=== PATIENT | male | born 1965 | race Caucasian/White ===

== ENCOUNTER 2019-03-03 14:34 | Outpatient (REF) | payer MEDICARE, SELFPAY ==
[2019-03-03 18:56] LABS: HGB 14.9 g/dL (13.5-17.5); Mean Corp. HGB Concentration 33.9 g/dL (32.0-36.0); Mean Corpuscular Hemoglobin 32.5 pg (27.0-33.0); Mean Corpuscular Volume 96.1 fL (80-95); Mean Platelet Volume 10.9 fL (8.0-11.0); Platelet Count 245 x1000/uL (130-400); RBC 4.58 m/cumm (4.50-6.00); RBC Distribution Width 12.3 % (11.8-14.1); White Blood Cell Count 10.73 k/cumm (4.4-10.8)
[2019-03-03 19:05] LABS: ALT 55 U/L (12-78); AST 36 U/L (15-37); Alkaline Phosphatase 82 U/L (46-116); Anion Gap 9.3 mmol/L (3-11); BUN 16 mg/dL (7-18); Bilirubin, Total 0.5 mg/dL (0.2-1.0); CO2 26.7 mmol/L (21.0-32.0); CREATININE 1.24 mg/dL (0.70-1.30); Calcium 8.5 mg/dL (8.5-10.1); Chloride 103 mmol/L (98-107); Glucose 108 mg/dL (70-100); Sodium 139 mmol/L (136-145); Total Protein 6.7 g/dL (6.4-8.2)
== END 2019-03-03 14:54 ==
LOC: NCHCN 14:34
PROVIDERS: PCP Internal Medicine; Visit Provider Internal Medicine
DX: K57.92 Diverticulitis of intestine, part unspecified, without perforation or abscess without bleeding (principal)
CPT/HCPCS: 80053; 85027

== ENCOUNTER 2019-07-24 11:55 | Outpatient (REF) | payer MEDICARE, SELFPAY ==
[2019-07-24 19:20] LABS: PROTEIN 13.3 mg/dL
[2019-07-24 19:23] LABS: COMMENT (LAB VIEW ONLY) 183.73 mg/dL; Microalb ug/mg Crea 5.7 ug/mg Cr
[2019-07-24 19:31] LABS: COMMENT (LAB VIEW ONLY) 181.14 mg/dL; Prot/Crea Ur Ratio 0.07
== END 2019-07-24 12:15 ==
LOC: NCHCN 11:55
PROVIDERS: PCP Internal Medicine; Visit Provider Internal Medicine
DX: I10 Essential (primary) hypertension (principal); G89.29 Other chronic pain; E66.3 Overweight; Z87.891 Personal history of nicotine dependence
CPT/HCPCS: 82043; 82565; 82570; 84156

== ENCOUNTER 2019-10-30 14:14 | Outpatient (REF) | payer MEDICARE, SELFPAY ==
[2019-10-30 19:41] LABS: ALT 24 U/L (16-63); AST 14 U/L (15-37); Albumin 4.1 g/dL (3.4-5.0); Alkaline Phosphatase 83 U/L (46-116); Anion Gap 9.9 mmol/L (3-11); BUN 22 mg/dL (7-18); Bilirubin, Total 0.4 mg/dL (0.2-1.0); CO2 26.1 mmol/L (21.0-32.0); CREATININE 1.17 mg/dL (0.70-1.30); Calcium 7.4 mg/dL (8.5-10.1); Chloride 102 mmol/L (98-107); Glucose 123 mg/dL (74-106); Potassium 4.9 mmol/L (3.5-5.1); Sodium 138 mmol/L (136-145); Total Protein 6.7 g/dL (6.4-8.2)
== END 2019-10-30 14:34 ==
LOC: NCHCN 14:14
PROVIDERS: PCP Internal Medicine; Visit Provider Internal Medicine
DX: N18.3 Chronic kidney disease, stage 3 (moderate) (principal); R94.5 Abnormal results of liver function studies
CPT/HCPCS: 80053

== ENCOUNTER 2019-12-16 08:26 | Outpatient (REF) | payer MEDICARE, SELFPAY ==
[2019-12-16 19:59] LABS: Albumin 4.2 g/dL (3.4-5.0); Anion Gap 9.2 mmol/L (3-11); BUN 15 mg/dL (7-18); CO2 26.8 mmol/L (21.0-32.0); CREATININE 1.16 mg/dL (0.70-1.30); Calcium 8.9 mg/dL (8.5-10.1); Chloride 103 mmol/L (98-107); Glucose 111 mg/dL (74-106); PHOSPHORUS 4.9 mg/dL (2.6-4.7); Potassium 4.9 mmol/L (3.5-5.1); Sodium 139 mmol/L (136-145)
== END 2019-12-16 08:46 ==
LOC: NCHCN 08:26
PROVIDERS: PCP Internal Medicine; Visit Provider Internal Medicine
DX: R73.03 Prediabetes (principal); N18.3 Chronic kidney disease, stage 3 (moderate)
CPT/HCPCS: 80069; 83036

== ENCOUNTER 2020-09-03 19:23 | Outpatient (REF) | payer MEDICARE, SELFPAY ==
[2020-09-03 19:29] LABS: Bacteria Negative HPF (Negative); C & S Indicated? No; Casts Negative LPF (Negative); Crystals Negative HPF (Negative); Epithelial Cells Rare HPF (Negative); Mucus Negative (Negative); RBC 0-2 HPF (0-2); WBC 0-2 HPF (0-5)
== END 2020-09-03 19:43 ==
LOC: NCHCN 19:23
PROVIDERS: PCP Internal Medicine; Visit Provider Internal Medicine
DX: N40.0 Benign prostatic hyperplasia without lower urinary tract symptoms (principal); I10 Essential (primary) hypertension
CPT/HCPCS: 84153; 81015

== ENCOUNTER 2020-10-06 10:28 | Emergency (ER) | payer MEDICARE, SELFPAY ==
[2020-10-06] VITALS (11 sets, daily range): BP systolic 101–157; BP diastolic 78–109; PULSE 67–88; RESP 16–18; TEMP 36.5–36.6; O2SAT 94–100
--- NOTE | 2020-10-06 10:30 | DI.CT_ITS ---
EXAM: CT ABDOMEN PELVIS W CLINICAL HISTORY: lower abd pain, vomiting, diarrhea. TECHNIQUE: Imaging Protocol: Axial computed tomography images with coronal and sagittal reformatted images were created and reviewed CONTRAST MATERIAL: Intravenous: Omnipaque 100cc Oral: None COMPARISON: No exams were available for comparison FINDINGS: VISUALIZED LUNG BASES: No nodules nor pleural effusions evident. ABDOMEN: There is no ascites. LIVER: There are no obvious focal hepatic lesions evident . GALLBLADDER/BILIARY: The gallbladder surgically absent CBD is not dilated. PANCREAS: No evidence of pancreatic mass nor dilatation of the pancreatic duct. SPLEEN: Spleen is not enlarged. No obvious intrasplenic lesions. Calcified granulomas are noted in the spleen. A small splenule medial to the spleen is also noted. The splenic and portal veins are p atent. ADRENALS: There are no significant adrenal masses. KIDNEYS:No cysts evident. No solid renal masses. No calculi nor hydronephrosis.. ABDOMINAL AORTA: The inferior abdominal aorta is mildly atherosclerotic. There is no true aneurysm. However, the atherosclerotic disease does extend into the iliac arteries. LYMPH NODES:There is no retroperitineal nor paraaortic adenopathy. ABDOMINAL WALL/GI: There is an anterior abdominal wall umbilical hernia which contains fat and no bow el loops. No bowel obstruction. PELVIS: GI: No evidence of appendicitis.There are diverticuli in the upper sigmoid and descending-left:. The re is some mild streaking at the junction of the descending colon and sigmoid at the iliac crest leve l. This may indicate subtle diverticulitis. LYMPH NODES: There is no intrapelvic nor inguinal adenopathy. REPRODUCTIVE: Prostate gland is significantly enlarged and lobulated and extends into the urinary morris dder URINARY BLADDER: In addition the enlarged prostate gland there is asymmetric thickening of the right side of the urinary bladder wall, this exhibiting a thickness of 7 millimeters. Also some thickening anterior posteriorly. Relative sparing of the left side of the urinary bladder wall. OSSEOUS: Advanced degenerative changes in the right hip. Partial ankylosis of the sacroiliac joints. No lytic osseous lesions evident. IMPRESSION: 1. The main finding here is a grossly enlarged prostate gland which is also lobulated and the there i s abnormal thickening of the right side of the urinary bladder wall. Urology consultation and cystos copy recommended to rule out neoplasm here. There is no hydronephrosis nor hydroureter. 2. There are multiple diverticuli in the descending-left colon with mild streaking around the colon a t the left iliac crest level possibly indicating subtle diverticulitis. There is no perforation or a bscess. 3. Appendix appears unremarkable. 4. Somewhat atherosclerotic distal abdominal aorta and iliac arteries without aneurysms. RADIATION DOSE DELIVERED: 987.76mGy.cm Total DLP DATA REPOSITORY: All CT scans at this facility are submitted to the National Radiology Data Registry (NRDR) Dose Index Registry (DIR) with the [employer] ([employer]). RADIATION OPTIMIZATION: All CT scans at this facility use at least one of these dose optimization te chniques: automated exposure control; mA and/or kV adjustment per patient size (includes targeted exa ms where dose is matched to clinical indication); or iterative reconstruction.
[2020-10-06] MEDS: Normal Saline 1,000 ML 1000 ML IV (10:35)
--- NOTE | 2020-10-06 10:41 | ED.GENADUL_ITS ---
Discharge Plan Disposition Patient Disposition: HOME Condition: Improving Discharge Details Clinical Impression: Acute diverticulitis, Enlarged prostate, Bladder wall thickening Primary Care Provider: Yoni Ramírez ED Provider: Katrin Bowser Home Meds and New Rx's Prescriptions: New amoxicillin-pot clavulanate [Augmentin] 875-125 mg tablet 1 tab PO BID 10 Days Qty: 20 RF: 0 Continued clonazepam 1 mg Tablet 1 mg PO BID PRNRF: 0 atenolol 25 mg Tablet 25 mg PO DAILY RF: 0 amlodipine 5 mg Tablet 5 mg PO DAILY RF: 0 aspirin 81 mg Tablet,Delayed Release (Dr/Ec) 81 mg PO DAILY RF: 0 acetaminophen [Acetaminophen Extra Strength] 500 mg Tablet 1,000 mg PO TID PRNRF: 0 hydromorphone [Dilaudid] 2 mg Tablet 2 - 4 mg PO DAILY PRNRF: 0 citalopram 20 mg Tablet 20 mg PO DAILY RF: 0 tamsulosin [Flomax] 0.4 mg Capsule 0.8 mg PO QHS RF: 0 prochlorperazine 25 mg Suppository 25 mg MT Q12H PRNRF: 0 pantoprazole 40 mg Tablet,Delayed Release (Dr/Ec) 40 mg PO DAILY RF: 0 ondansetron 4 mg Tablet,Disintegrating 4 mg PO Q8H PRNRF: 0 finasteride 5 mg Tablet 5 mg PO DAILY RF: 0 Narcan 4 mg/actuation [place],Non-Aerosol 4 mg INTRANASAL Q2-3M PRNRF: 0 Citracal-D3 Maximum Plus 325 mg-12.5 mcg -2.75 mg Tablet 2 tab PO DAILY RF: 0 Discharge Instructions Instructions: Diverticulitis (ED), Diverticulitis Diet (ED) Additional Instructions: Take your Dilaudid that you have at home as needed and directed for pain. Take your Compazine that you have at home as needed and directed for nausea and vomiting. Take the antibiotics until finished. Call your urologist today or tomorrow to schedule a follow-up appointment for reevaluation of your enlarged prostate and thickening of your bladder wall which was noted on CAT scan today. Follow-up with your primary care doctor in 1 week. Return to the emergency department with any worsening or new concerning symptoms. Discharge Data Discharge Physician: Katrin Bowser Medical Decision Making 1030 -- 55-year-old male with a previous history of diverticulitis presents with vomiting, diarrhea and abdominal pain for the past 10 days consistent with previous episodes of diverticulitis. Patient appears uncomfortable. Blood pressure mildly hypertensive, remainder vitals within normal limits. His abdomen is soft but diffusely tender, worse in the left lower quadrant. Differential diagnosis includes acute diverticulitis, colitis, gastroenteritis, UTI, pyelonephritis, etc. Will place an IV, bolus of fluids, screening labs, CT abdomen and pelvis and give a dose of morphine and Compazine and fluids and reassess. 1215 --labs and imaging reviewed. White blood cell count 12. Lipase normal. CT notes subtle diverticulitis. Also notes grossly enlarged prostate which is also lobulated raising concern for neoplasm recommend a urology consultation and cystoscopy. Patient states he is followed by urology at [place] for his BPH. Patient reassessed and his states his pain is returning but he would prefer to go home if possible. As he is hemodynamically stable without evidence of abscess or fever, will treat with p.o. antibiotics at this time. He is not narcotic na?ve and takes 4 mg of morphine twice daily for his chronic hip pain. Will give a dose of Dilaudid 1 mg IV and p.o. Augmentin. Discussed with Linda Cassidy from urology and she advised to follow-up with patient's urology at [facility] as this may be his baseline.. Will have patient follow-up with his urologist at [facility] for further evaluation. Patient given CT results for his follow-up. 1300 -- Patient feels much better and feels good to go home. CT images sent electronically to [facility]. Advised to follow up with the primary care doctor for re-evaluation. Usual and customary return precautions given prior to discharge. Medical Records Medical records reviewed: Yes I reviewed the patient's medical records. Imaging Data Radiologic Study: Radiologist's impression: CT ABDOMEN PELVIS W CLINICAL HISTORY: lower abd pain, vomiting, diarrhea. TECHNIQUE: Imaging Protocol: Axial computed tomography images with coronal and sagittal reformatted images were created and reviewed CONTRAST MATERIAL: Intravenous: Omnipaque 100cc Oral: None COMPARISON: No exams were available for comparison FINDINGS: VISUALIZED LUNG BASES: No nodules nor pleural effusions evident. ABDOMEN: There is no ascites. LIVER: There are no obvious focal hepatic lesions evident . GALLBLADDER/BILIARY: The gallbladder surgically absent CBD is not dilated. PANCREAS: No evidence of pancreatic mass nor dilatation of the pancreatic duct. SPLEEN: Spleen is not enlarged. No obvious intrasplenic lesions. Calcified granulomas are noted in the spleen. A small splenule medial to the spleen is also noted. The splenic and portal veins are patent. ADRENALS: There are no significant adrenal masses. KIDNEYS:No cysts evident. No solid renal masses. No calculi nor hydronephrosis.. ABDOMINAL AORTA: The inferior abdominal aorta is mildly atherosclerotic. There is no true aneurysm. However, the atherosclerotic disease does extend into the iliac arteries. LYMPH NODES:There is no retroperitineal nor paraaortic adenopathy. ABDOMINAL WALL/GI: There is an anterior abdominal wall umbilical hernia which contains fat and no bowel loops. No bowel obstruction. PELVIS: GI: No evidence of appendicitis.There are diverticuli in the upper sigmoid and descending-left:. There is some mild streaking at the junction of the descending colon and sigmoid at the iliac crest level. This may indicate subtle diverticulitis. LYMPH NODES: There is no intrapelvic nor inguinal adenopathy. REPRODUCTIVE: Prostate gland is significantly enlarged and lobulated and extends into the urinary bladder URINARY BLADDER: In addition the enlarged prostate gland there is asymmetric thickening of the right side of the urinary bladder wall, this exhibiting a thickness of 7 millimeters. Also some thickening anterior posteriorly. Relative sparing of the left side of the urinary bladder wall. OSSEOUS: Advanced degenerative changes in the right hip. Partial ankylosis of the sacroiliac joints. No lytic osseous lesions evident. IMPRESSION: 1. The main finding here is a grossly enlarged prostate gland which is also lobulated and the there is abnormal thickening of the right side of the urinary bladder wall. Urology consultation and cystoscopy recommended to rule out neoplasm here. There is no hydronephrosis nor hydroureter. 2. There are multiple diverticuli in the descending-left colon with mild streaking around the colon at the left iliac crest level possibly indicating subtle diverticulitis. There is no perforation or abscess. 3. Appendix appears unremarkable. 4. Somewhat atherosclerotic distal abdominal aorta and iliac arteries without aneurysms. Lab Data Lab results reviewed: Yes I reviewed the patient's lab results. Labs: Laboratory Tests Range/Units 10/06/20 10/06/20 10:35 10:35 WBC (4.4-10.8) 10^3/uL 12.50 H RBC (4.36-5.78) 10^6/uL 4.88 Hgb (13.5-17.5) g/dL 16.6 Hct (40.0-50.0) % 47.0 MCV (80-95) fL 96.3 H MCH (27.0-33.0) pg 34.0 H MCHC (32.0-36.0) % 35.3 RDW (11.8-14.1) % 11.8 Plt Count (130-400) 10^3/uL 382 MPV (8.0-11.0) fL 9.5 Immature Gran % 0.2 Neutrophils % 65.5 Lymphocytes % 23.5 Monocytes % 10.0 Eosinophils % 0.6 Basophils % 0.2 Nucleated RBC % % 0 Absolute Neutrophils (1.2-6.7) 10^3/uL 8.19 H Absolute Lymphocytes (1.2-3.4) 10^3/uL 2.94 Absolute Monocytes (0.1-0.8) 10^3/uL 1.25 H Absolute Eosinophils (0.0-0.7) 10^3/uL 0.08 Absolute Basophils (0.0-0.2) 10^3/uL 0.03 Sodium (136-145) mmol/L 133 L Potassium (3.5-5.1) mmol/L 3.8 Chloride (98-107) mmol/L 93 L Carbon Dioxide (21.0-32.0) mmol/L 29.6 Anion Gap (3-11) mmol/L 10.4 BUN (7-18) mg/dL 42 H Creatinine (0.70-1.30) mg/dL 1.6 H Estimated GFR/1.73 m2 (mL/min/1.73m2) 44.78 Glucose (74-106) mg/dL 145 H Calcium (8.5-10.1) mg/dL 8.9 Total Bilirubin (0.2-1.0) mg/dL 1.5 H AST (15-37) U/L 20 ALT (16-63) U/L 27 Alkaline Phosphatase (46-116) U/L 93 Total Protein (6.4-8.2) g/dL 8.7 H Albumin (3.4-5.0) g/dL 4.9 Lipase (73-393) U/L 225 HPI General Mode of arrival: ambulatory . Date/Time Provider Initiated Documentation: 10/06/20 10:29 . Limitations to Documentation: no limitations . Information obtained by: patient . HPI Narrative: Patient is a 55-year-old male who presents to the ED with complaint of vomiting, diarrhea and abdominal pain for the past 10 days. Patient states he has been vomiting multiple times daily which consist mainly bile. He states he has had loose brown stools multiple times daily. He states his abdominal pain is worse in the lower quadrants, sharp and intermittent consistent with previous episodes of diverticulitis. Patient has not taken any medication for pain today. Patient denies any recent travel or known sick contacts. He denies fever or change in urinary symptoms. Related Data Home Medications Medication Instructions Recorded Confirmed Citracal-D3 Maximum Plus 2 tab PO DAILY 10/06/20 10/06/20 Narcan 4 mg INTRANASAL Q2-3M PRN 10/06/20 10/06/20 acetaminophen [Acetaminophen Extra 1,000 mg PO TID PRN 10/06/20 10/06/20 Strength] amlodipine 5 mg PO DAILY 10/06/20 10/06/20 amoxicillin-pot clavulanate 1 tab PO BID 10 Days #20 tab 10/06/20 [Augmentin] aspirin 81 mg PO DAILY 10/06/20 10/06/20 atenolol 25 mg PO DAILY 10/06/20 10/06/20 citalopram 20 mg PO DAILY 10/06/20 10/06/20 clonazepam 1 mg PO BID PRN 10/06/20 10/06/20 finasteride 5 mg PO DAILY 10/06/20 10/06/20 hydromorphone [Dilaudid] 2 - 4 mg PO DAILY PRN 10/06/20 10/06/20 ondansetron 4 mg PO Q8H PRN 10/06/20 10/06/20 pantoprazole 40 mg PO DAILY 10/06/20 10/06/20 prochlorperazine 25 mg MT Q12H PRN 10/06/20 10/06/20 tamsulosin [Flomax] 0.8 mg PO QHS 10/06/20 10/06/20 Previous Rx's Medication Instructions Recorded amoxicillin-pot clavulanate 1 tab PO BID 10 Days #20 tab 10/06/20 [Augmentin] Allergies Allergy/AdvReac Type Severity Reaction Status Date / Time escitalopram [From Lexapro] Allergy Skin Rash Unverified 10/06/20 10:58 General Stated Complaint: Abd Prob CHICO: 3 Review of Systems All systems reviewed & are unremarkable except as noted in HPI and below Constitutional Constitutional: Reports as per HPI, Denies chills and Denies fever(s) Eyes Eyes: Denies blurry vision ENT Ears, Nose, Mouth, and Throat: Denies dizziness, Denies sore throat and Denies throat swelling Cardiovascular Cardiovascular: Denies chest pain and Denies dyspnea Respiratory Respiratory: Denies cough and Denies dyspnea Gastrointestinal Gastrointestinal: Reports abdominal pain, Reports diarrhea and Reports vomiting Genitourinary Genitourinary: Denies hematuria and Denies dysuria Musculoskeletal Musculoskeletal: Denies back pain and Denies numbness Integumentary/Breasts Skin/Breast: Denies lesions and Denies rash Neurologic Neurologic: Denies dizziness, Denies localized weakness and Denies numbness Allergic/Immunologic Allergic/Immunologic: Denies throat swelling PFSH Medical History (Updated 10/06/20 @ 12:59 by Katrin Bowser DO) HTN (hypertension) Hx of hyperlipidemia Surgical History (Updated 10/06/20 @ 10:44 by Katrin Bowser DO) Hx of cholecystectomy Social History Smoking/Tobacco Use Status: Former Tobacco Use Smoking risk assessment performed?: Yes Alcohol Intake: never Drug use: Occasionally Substance use type: marijuana Do you feel safe at home: Yes Do you feel safe in your relationship?: Yes Exam Const General: cooperative and uncomfortable Orientation: alert, awake and oriented x3 HENMT Head: normal to inspection Face and sinus: normal facial exam Eyes General: appearance normal, both eyes and all related structures EOM: EOM intact bilaterally Neck Neck: normal visual inspection and No submandibular swelling Lymphatic: no lymphadenopathy noted Chest Chest: normal inspection of the chest and no tenderness Resp Effort & Inspection: normal respiratory effort and able to speak in complete sentences Auscultation: clear to auscultation bilaterally Cardio Rate: regular rate Rhythm: regular rhythm GI Inspection: normal to inspection Palpation: soft, not firm, not rigid and tender (Diffuse worse in LLQ>RLQ>LUQ) Auscultation: hypoactive bowel sounds Skin General skin exam: no rashes or lesions noted Neuro General: patient alert, patient awake and patient oriented x3 Cognition: normal cognition Speech: speech normal Motor: muscle tone normal throughout Sensory Exam: no sensory deficits noted Extrem General: normal to inspection, full ROM, capillary refill normal, no calf tenderness bilaterally and no edema Psych Appearance: grossly normal Mental Status: mental status grossly normal Speech and Movement: speech and movement normal Affect: normal affect Course Vital Signs Vital signs: Vital Signs Temperature 97.7 F 10/06/20 10:31 Pulse 83 10/06/20 10:31 Respiratory Rate 18 10/06/20 10:31 Blood Pressure 143/109 H 10/06/20 10:31 Pulse Oximetry 99 10/06/20 10:31 Temperature 97.7 F 10/06/20 10:31 Temperature Source Temporal Artery Scan 10/06/20 10:31 Pulse 83 10/06/20 10:31 Respiratory Rate 18 10/06/20 10:31 Respiratory Effort Non-Labored 10/06/20 10:35 Blood Pressure 143/109 H 10/06/20 10:31 Blood Pressure Position Sitting 10/06/20 10:31 Pulse Oximetry 99 10/06/20 10:31 Oxygen Delivery Method Room Air 10/06/20 10:31 Oxygen Flow Rate 0 10/06/20 10:31 Pain Level 8 10/06/20 10:31
[2020-10-06] MEDS: Prochlorperazine 10 MG/2 ML VIAL IVP (10:50)
[2020-10-06 11:06] LABS: Abs Immature Grans 0.03 10^3/uL (0.0-0.06); Absolute Basophil Count 0.03 10^3/uL (0.0-0.2); Absolute Eosinophil Count 0.08 10^3/uL (0.0-0.7); Absolute Lymphocyte Count 2.94 10^3/uL (1.2-3.4); Absolute Monocyte Count 1.25 10^3/uL (0.1-0.8); Basophils % 0.2; Eosinophils % 0.6; HGB 16.6 g/dL (13.5-17.5); Immature Grans % 0.2; Lymphocytes % 23.5; MCHC 35.3 % (32.0-36.0); MCV 96.3 fL (80-95); MPV 9.5 fL (8.0-11.0); Neutrophils % 65.5; Nucleated RBC 0 %; Platelet Count 382 10^3/uL (130-400); RBC 4.88 10^6/uL (4.36-5.78); RDW 11.8 % (11.8-14.1); RDW-SD 42.4 fL
[2020-10-06 11:07] LABS: Absolute Neutrophil Count 8.19 10^3/uL (1.2-6.7)
[2020-10-06 11:16] LABS: ALT 27 U/L (16-63); AST 20 U/L (15-37); Albumin 4.9 g/dL (3.4-5.0); Alkaline Phosphatase 93 U/L (46-116); Anion Gap 10.4 mmol/L (3-11); BUN 42 mg/dL (7-18); Bilirubin, Total 1.5 mg/dL (0.2-1.0); CO2 29.6 mmol/L (21.0-32.0); CREATININE 1.6 mg/dL (0.70-1.30); Calcium 8.9 mg/dL (8.5-10.1); Chloride 93 mmol/L (98-107); Estimated GFR 44.78 (mL/min/1.73m2); Glucose 145 mg/dL (74-106); Lipase 225 U/L (73-393); Potassium 3.8 mmol/L (3.5-5.1); Sodium 133 mmol/L (136-145); Total Protein 8.7 g/dL (6.4-8.2)
[2020-10-06] MEDS: Normal Saline Flush 10 ML SYR IVP (11:36)
[2020-10-06] MEDS: Normal Saline - Diluent 50 ML VIAL IV (11:36)
[2020-10-06] MEDS: Omnipaque 350 MG/ML 100 ML BTL IV (11:36)
[2020-10-06] MEDS: HYDROmorphone 2 MG/ML VIAL 1 MG IVP (12:24)
[2020-10-06] MEDS: Amoxicillin 875/Clav. 125 TAB PO (12:25)
== END 2020-10-06 13:20 | disposition home or self-care (01) ==
LOC: ER 13:26
PROVIDERS: Emergency Provider Physician Assistant; PCP Internal Medicine
DX: K57.32 Diverticulitis of large intestine without perforation or abscess without bleeding (principal); N40.0 Benign prostatic hyperplasia without lower urinary tract symptoms; N32.89 Other specified disorders of bladder; I10 Essential (primary) hypertension
CPT/HCPCS: 80053; 83690; 96361; 96374; 96375; 99285; 74177; 81003; 85025; 99284; J0780; J3490

== ENCOUNTER 2020-11-04 12:50 | Emergency (ER) | payer MEDICARE, SELFPAY ==
[2020-11-04 13:01] VITALS: BP 144/105; PULSE 83; RESP 16; TEMP 36.7; O2SAT 99
--- OUTSIDE RECORDS SUMMARY | 2020-11-04 13:14 | XMS_ITS | Encounter Summary ---
:1965 Author Care Team Providers Name Role Phone Yoni Ramírez MD Primary Care Provider [phone] Beto Haile MD Poultry Inseminator [phone] Ricki Knight General Surgeon [phone] Aguila Altman MD Urologist [phone] Reason for Visit Urinary Retention pt reports that since he has doubled harris sulosin, stopped drinking caffeine and started taking the Beta Prostate Supplement (noted 09/22/2020 [id number] Christy Blancas RN) Assessment and Plan Assessment Note Recheck 6 months, sooner as needed. 1. Lower urinary tract symptoms due to benign prostatic hypertrophy Very large prostate by PARTH, wi th severe lower urinary tract symptoms despite high-dose tamsulosin. At risk fo r retention and/or the need for surgery. However, with super beta prostate and th e higher dose of tamsulosin, he feels that things have markedly improved and he is not particularly interested in aggressive interventions. We did discuss the potent ial use of a 5 alpha reductase inhibitor in his case, which would gradually reduce t he size of the prostate, improve symptoms, and reduce the future risk of surgery an d/or retention by about 50%. Side effects were discussed including the FDA black b ox warning about prostate cancer. He agrees to initiate therapy. ? finasteride 5 mg tablet 2. Incomplete emptying of bladde r Smaller PVR today on tamsulosi n 0.8 mg. See above. ? urinalysis, dipstick, refl ex micro ? bladder scan (PROC) 3. 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 Addressing the obstruction is the best way to stabilize or improve the irr itative symptoms. Recent increased stress/anxiety may contribute to irritat melissa symptoms as well. An anticholinergic/antimuscarinic or beta 3 adrenergic agonist medication would place him at high risk for urinary retention d ue to the marked enlargement of his prostate and is therefore relatively contraindica myrtle unless the outlet obstruction were to be addressed first. 4. Urgent desire to urinate As above. 5. Nocturia Likely multifactorial related to BPH, incomplete bladder emptying, secondary detrusor instability, possibly occult obstructive sleep apnea. Discussion Note: None recorded.Patient educational handouts: No information available. Plan of Care Reminders Provider Appointments Return to on or around Pet [facility] Office 04/09/2024 MD Antonia Lab 09/22/2020 P_urology Urinalysis, Dipstick, Reflex Micro Referral None ? ? recorded. Procedures Bladder 09/22/2020 P_urology Scan (PROC) Surgeries None ? ? recorded. Imaging None ? ? recorded. Medications Name Start Date ? ? Acetaminophen Extra Strength 500 mg tablet 04/07/2020 Take 1000 mg every 6 hours by oral route as needed. amitriptyline 50 mg tablet 04/07/2020 Take 1 tablet every day by oral route at bedtime. amlodipine 5 mg tablet 04/08/2020 Take 5 mg every [address] Ramírez to write refills; next dose on Sunday, Au jaquelin 28 aspirin 81 mg tablet,delayed release 04/07/2020 Take 1 tablet every day by oral route. atenolol 25 mg tablet 04/07/2020 Take 1 tablet every day by oral route. citalopram 20 mg tablet 04/07/2020 Take 1 tablet every day by oral route. Citracal + Vitamin D Maximum 315 mg calcium-6.25 mcg ( 250 unit) tablet 04/07/2020 Take 2 tablets every day by oral route with meals. clonazepam 1 mg tablet ? Take 1 tablet twice a day by oral route as needed. Compro 25 mg rectal suppository 04/07/2020 Insert 25 mg twice a day by rectal route as needed. Dr. Ramírez to write refills cyclobenzaprine 10 mg tablet ? Take 1 tablet 3 times a day by oral route as needed. finasteride 5 mg tablet ? Take 1 tablet every day by oral route for 90 days. hydromorphone 2 mg tablet 04/07/2020 Take 2 tablets every day by oral route as directed. ibuprofen 800 mg tablet 04/07/2020 Take 1 tablet 3 times a day by oral route as needed. Narcan 4 mg/actuation nasal spray 04/07/2020 Take 1 spray as needed by nasal route. ondansetron 4 mg disintegrating tablet ? Place 1 tablet every 6 hours by translingual route as needed. pantoprazole 40 mg tablet,delayed release 04/07/2020 Take 1 tablet every day by oral route. Prostate Health ? sennosides 8.6 mg tablet 04/07/2020 Take 17.2 mg every 24 hours by oral route as needed. tamsulosin 0.4 mg capsule 04/07/2020 Take 2 capsules every day by oral route in the evenin g for 90 days. Notes: Med Red Updated 04/06/2020 -laf Medications Administered None recorded. Vitals None recorded. Results Lab Results Date Name Specimen Result Interpretation Description Value Range Status Address ? 09/22/2020 Urinalysis, Urine ? Color Yellow ? ? P _urology: Dipstick, clean [address] [facility] Micro [facility] ? ? Urine ? Appearance Clear ? ? P_uro logy: clean [address] [facility] ? ? Urine ? Glucose Normal ? ? P_urolog y: clean [address] [facility] ? ? Urine ? Bilirubin Negative ? ? P_ur ology: clean [address] [facility] ? ? Urine ? Ketones Trace ? ? P_urolog y: clean [address] [facility] ? ? Urine ? Specific 1.030 ? ? P_urolo gy: clean [place] [address] [facility] ? ? Urine ? Blood Negative ? ? P_urolog y: clean [address] [facility] ? ? Urine ? Ph 6.0 ? ? P_urology: clean [address] [facility] ? ? Urine ? Protein 3+ ? ? P_urolog y: clean [address] [facility] ? ? Urine ? Urobilinogen 0.2 ? ? P_u rology: clean [address] [facility] ? ? Urine ? Nitrite negative ? ? P_urol ogy: clean [address] [facility] ? ? Urine ? Leukocyte Negative ? ? P_ur ology: clean [place] [address] [facility] Allergies Code Code System Name Reaction Severity Onset 263979 RxNorm Lexapro ? ? ? Problems Name Status Onset Date Source ? Benign Neoplasm of Rectum Active ? Histor y Hyperlipidemia Active ? History Obesity Active ? History Nicotine Dependence Active ? History Hypertensive Disorder Active ? History Ulcer of Esophagus Active ? History Obstruction of Bile Duct Active ? History Idiopathic Osteoarthritis Active ? Histor y Blood Chemistry Abnormal Active ? History History of Fracture Active ? History SNOMED CT Concept Active ? History Chondromalacia of Right Patella Active ? History Procedures Date Name Performed by ? 04/10/2019 Colonoscopy Information not avai lable Notes: diverticulosis, external hemor rhoids; 04/16/2015 sm rectal polyp 08/13/2016 Subtotal Parathyroidectomy Information n ot available 11/22/2010 Cholecystectomy Information not avai lable Notes: laparoscopic ? Tonsillectomy Information not avai lable Notes: as a child Vaccine List None recorded. Social History Tobacco Smoking Status Former Smoker Notes: Quit in 2012, used to smoke 1 pack/day Any signs of neglect or abuse? no signs of neglect or abuse noted Number of children 3 Notes: 38, 36, 34 Marital status Use IV drugs? N Suspected/Known Abuse Or No Neglect? Chewing tobacco none Most Recent Tobacco Use 09/05/2019 Screening Advance directive N Notes: pt states has packet at home Do you feel safe at home? Y Any marijuana use? Y Notes: once weekl y Any Vapor tobacco use? N Tobacco smoke exposure Y Illicit drug use? N Alcohol intake None Did the fall result in an N injury? Currently or any N chance of current ? 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 Functional Status Unknown. Past Encounters 09/22/2020 Lower Urinary Tract Symptoms Due to Serafin gn Prostatic Hypertrophy; Incomplete Emptying of Bladder; Increased Frequency of Urination; Urgent Desire to Urinate; Nocturia Aguila Altman MD: [address] [place] [phone], Ph. History of Present Illness Note: <p>Mr. Arreguin is a pleasant 55-year-old gentleman referred from Dr. Ramírez for difficulty voiding.</p><p>
</p><p>He states that he had a gradual onset over the course of months with pain burning and difficulty voiding. He started tamsulosin 0.08 mg and a super beta prostate and decreased his coffee intake about 2 weeks ago, and his situation improved quitea lot, drastic improvement, a 180 degree turnaround.</p><p>
</p><p>On 07/09/2020 he presented to the ER with frequent urination every 30 minutes, dysuria and bladder pain and I pissed myself. He says he had horrible pain. He could not void for about 90 minutes. Hehad a catheter placed in the emergency room for about an hour and then it was removed. This was the only time that he has been catheterized. He was not sent out on any antibiotics. On my review of the ER notes, Dr. Melo noted increased difficulty voiding and right CVA tenderness, and the CT scan showed a Gandhi catheter in place but there is nothing recorded about how much came out when it was placed and he was not sent home with it. An ER visit 08/08/2020 was characterized by intractable anxietyrelated to some financial concerns, with no mention about urinary symptoms.</p><p>
</p><p>He is still voiding 5-8 times daily and 3-6 times at night. His I PSS is 25/4 with 4's on sense of incomplete emptying, weak stream, frequency, and urgency and 3's on intermittency, straining and nocturia. This level of symptoms is acceptable to him such that he does not prefer more aggressive intervention than his current pharmacologic therapy.</p><p>
</p><p>He significantly reduced his coffee intake of late in response to his symptoms. He doesnot drink alcohol or spicy food but he does drink a lot of citrus and especially orange juice.</p><p>
</p><p>His urine today shows 3+ protein and trace ketones but otherwise negative. His PVR on bladder scan is only 69 cc.</p><p>
A PSA dated 09/03/20 was 3.0. There is a negative family history of prostate cancer.</p><p>
</p><p>His PVR was 235 on an US 09/01 which also showed just modest prostate enlargement.</p&gt ;<p>
</p><p>He was recently started on finasteride (09/22/20) in addition to his tamsulosin.</p><p>
</p><p>He tends toward having some constipation.

There are no unusual back issues and no numbness, weakness, or tingling of his lower extremities.</p><p>
</p><p>Meds include oral Dilaudid, cyclobenzaprine, and amitriptyline may contribute to his retention.</p>Review of Systems: ROS as noted in the HPI Review of Systems ? Notes: <p>A complete review of syst ems was obtained via scanned intake form and was positive for: arthritis pain and recent increased stress.</p> Physical Exam ? Notes: <p>Pleasant male in no distr ess.

HEENT: Normal.

Respirations: Unlabored.

Abdomen sh ows laxity in the supraumbilical area, laxity in the right inguinal area with out discrete hernia, is soft, non-tender, no masses, no hernias, no ingui nal adenopathy, no CVA tenderness.

Genital exam shows a normal {{circum cised* uncircumcised}} phallus with some patchy areas of depigmentation, wit hout skin lesions or plaques. Orthotopic {{non-stenotic* mildly steno tic stenotic}} meatus without discharge. Scrotal skin is without erythema, ed kristan or skin lesions. Testes are bilaterally descended, non-tender and wi thout masses. Each epididymis is normal. Genital sensation is normal. Rectal exam reveals {{not performed normal* slightly diminished diminished}} tone , a {{1/2+ 3/4+ 1+ 1 1/2+ 2+ 2 1/2+ 3+* 4+ }} diffusely firm prostate {{wi thout* with}} nodularity.

Lower extremities show no significant edema.<b r>
Neuro: grossly intact.</p>
--- OUTSIDE RECORDS SUMMARY | 2020-11-04 13:14 | XMS_ITS ---
:1965 Author Care Team Providers Name Role Phone MARGARET RAMÍREZ MD Primary Care Provider [phone] ELIANA VERAS MD Bar[employer]ler [phone] RAJINDER ECHEVARRIA General Surgeon [phone] JANNY ALTMAN MD Urologist [phone] Allergies Code Code System Name Reaction Severity Status Onset 215243 RxNorm Lexapro ? ? Active ? Medications Name Status Start Date Stop Date ? ? Acetaminophen Extra Strength 500 mg tablet Active 04/07 Not available Take 1000 mg every 6 hours by oral route as needed. amitriptyline 50 mg tablet Active 04/07/2020 Not a vailable Take 1 tablet every day by oral route at bedtime. amlodipine 5 mg tablet Active 04/08/2020 Not avail able Take 5 mg every [address] Ramírez to write refills; next dose on April 09 aspirin 81 mg tablet,delayed release Active 04/07/2020 Not available Take 1 tablet every day by oral route. atenolol 25 mg tablet Active 04/07/2020 Not availa ble Take 1 tablet every day by oral route. calcium carbonate 600 mg (1,500 mg)-vitamin D3 400 unit tablet C ompleted ? 02/26/2019 Take 1 tablet twice a day by oral route for 90 days. ciprofloxacin 500 mg tablet Completed 09/21/201911/12 Take 1 tablet every 12 hours by oral route for 7 days. citalopram 20 mg tablet Active 04/07/2020 Not avai lable Take 1 tablet every day by oral route. Citracal + Vitamin D Maximum 315 mg calcium-6.25 mcg (250 un it) tablet Active 04/07/2020 Not available Take 2 tablets every day by oral route with meals. clonazepam 1 mg tablet Active ? Not avail able Take 1 tablet twice a day by oral route as needed. clonidine HCl 0.1 mg tablet Completed ? 02/10 Take 1 tablet twice a day by oral route. Compazine 10 mg tablet Completed 01/04/2020 0 Take 1 tablet every 6 hours by oral route as needed. Compro 25 mg rectal suppository Active 04/07/2020 Not available Insert 25 mg twice a day by rectal route as needed. Dr. Ramírez to write refills cyclobenzaprine 10 mg tablet Active ? Not available Take 1 tablet 3 times a day by oral route as needed. finasteride 5 mg tablet Active ? Not avai lable Take 1 tablet every day by oral route for 90 days. Flagyl 500 mg tablet Completed 09/21/2019 12/02/2019 Take 1 tablet every 6 hours by oral route for 7 days. hydromorphone 2 mg tablet Active 04/07/2020 Not av ailable Take 2 tablets every day by oral route as directed. hydromorphone 4 mg tablet Completed 02/26/20192019 Take 4 mg twice a day by oral route as needed. ibuprofen 800 mg tablet Active 04/07/2020 Not avai lable Take 1 tablet 3 times a day by oral route as needed. levofloxacin 500 mg tablet Completed 12/02/201901/03 Take 500 mg every 24 hours by oral route. next dose tonight 4--20 PM; please co mplete all doses and review that you have started this medication when you speak with Dr. Ramírez on 5-1-20 Lidocaine Viscous 2 % mucosal solution Completed 9 09/06/2019 Take 2 mL every 3 hours by oral route as needed for 10 days. Do not give more than 8 doses in a 24 hour period Liquid Antacid 200 mg-200 mg-20 mg/5 mL oral suspension Complete d 02/26/2019 09/06/2019 Take 30 mL every 6 hours by oral route as needed. lisinopril 10 mg tablet Completed ? 02/27/20 19 Take 1 tablet every day by oral route. lisinopril 20 mg tablet Completed 01/04/2020 04/07/20 20 Take 1 tablet every day by oral route. lorazepam 1 mg tablet Completed 01/04/2020 04/08/2020 Take 1 mg every 6 hours by oral route as needed. metoprolol succinate ER 100 mg tablet,extended release 24 hr Completed 02/26/2019 09/06/2019 Take 1 tablet every day by oral route. Miralax 17 gram oral powder packet Completed 01/04/2020 04/08/2020 Take 17 g every 24 hours by oral route as needed. Narcan 4 mg/actuation nasal spray Active 04/07/2020 Not available Take 1 spray as needed by nasal route. ondansetron 4 mg disintegrating tablet Active ? Not available Place 1 tablet every 6 hours by translingual route as needed. pantoprazole 40 mg tablet,delayed release Active 2019 Not available Take 1 tablet every day by oral route. Prostate Health Active ? Not available sennosides 8.6 mg tablet Active 04/07/2020 Not vivian ilable Take 17.2 mg every 24 hours by oral route as needed. tamsulosin 0.4 mg capsule Active 04/07/2020 Not av ailable Take 2 capsules every day by oral route in the evening for 90 d ays. Zofran 4 mg tablet Completed 01/04/2020 04/08/2020 Take 1 tablet 4 times a day by oral route as needed. Notes: Med Red Updated 04/06/2020 -laf Problems Name Status Onset Date Source ? [...] not avai lable Notes: as a child Results Lab Results Date Name Specimen Result Interpretation Description Value Range Status Address ? 09/22/2020 Bladder Scan ? Date and 09/22/2020 ? ? P_urology: (PROC) Time 1445 [address] [facility] ? ? ? Amount in 69mL ? ? P_urol ogy: Bladder [address] l [facility] 09/22/2020 Urinalysis, Urine ? Color Yellow ? ? P _urology: Dipstick, clean 41 Medi [employer] Micro catch [facility], [place] ? ? Urine ? Appearanc Clear ? ? P_urol ogy: clean e 41 Medical catch [facility] [facility], [place] ? ? Urine ? Glucose Normal ? ? P_urolog y: clean 41 Medical catch [employer] [place] ? ? Urine ? Bilirubin Negative ? ? P_ur ology: clean 41 Medical catch [facility] [facility], [place] ? ? Urine ? Ketones Trace ? ? P_urolog y: clean 41 Medical catch [employer] ? ? Urine ? Specific 1.030 ? ? P_urolo gy: clean [place] 41 Medica l catch [facility] [employer] [facility], [place] ? ? Urine ? Blood Negative ? ? P_urolog y: clean 41 Medical catch [employer] [place] ? ? Urine ? Ph 6.0 ? ? P_urology: clean 41 Medical catch [employer] [place] ? ? Urine ? Protein 3+ ? ? [facility] y: clean [facility] ? ? Urine ? Urobilino 0.2 ? ? P_urol ogy: clean gen 41 Medical [employer] [facility] ? ? Urine ? Nitrite negative ? ? P_urol ogy: clean 41 Medical catch [employer] [place] ? ? Urine ? Leukocyte Negative ? ? P_ur ology: clean [place] 41 Medic al [employer] [facility] 07/09/2020 CBC W/ Auto BLD ? Wbc 7.0 10*3/uL 5.0-10. Fi nal [place] Diff 0 [place] 10*3/uL Hospital Lab (Internal) : [address] ? ? BLD Low Rbc 4.44 10*6/uL 4.60-6. Final Nor th 00 Country 10*6/uL Hospital Lab (Internal) : [address] ? ? BLD ? Hgb 14.6 g/dL 14.0-18 Final North .0 g/dL [facility] Hospital Lab (Internal) : [address] ? ? BLD ? Hct 43.0 % 41.0-51 Final North .0 % [facility] Hospital Lab (Internal) : [address] ? ? BLD High Mcv 96.8 fL 80.0-96 Final North .0 fL [facility] Hospital Lab (Internal) : [address] ? ? BLD High Mch 32.9 pg 26.0-32 Final North .0 pg [facility] Lab (Internal) : [address] [place] ? ? BLD ? Mchc 34.0 g/dL 31.0-35 Final North .0 g/dL [facility] (Internal) : [address] [place] ? ? BLD ? Rdw 12.8 % 11.5-14 Final North .5 % [facility] (Internal) : [address] [place] ? ? BLD ? Plt 346 10*3/uL 130-450 Final Nort h 10*3/uL [facility] (Internal) : [address] [place] ? ? BLD ? Anc 4.68 10*3/uL ? Final Nort h [facility] (Internal) : [address] [place] ? ? BLD ? Nlr 3.10 0.00-3. Final North 20 [facility] Lab (Internal) : [address] [place] ? ? BLD ? Neutro 66.8 % 40.0-75 Final North .0 % [facility] (Internal) : [address] [place] ? ? BLD ? Lymph 21.5 % 20.0-50 Final North .0 % [facility] (Internal) : [address] [place] ? ? BLD High [place] 10.4 % 2.0-10. Final North 0 % [facility] (Internal) : [address] [place] ? ? BLD Low Eos 0.7 % 1.0-6.0 Final North % [facility] (Internal) : [address] [place] ? ? BLD ? Baso 0.3 % 0.0-1.0 Final North % [facility] (Internal) : [address] [place] ? ? BLD ? Ig 0.3 % 0.0-0.9 Final North % [facility] Hospital Lab (Internal) : [address] [place] 07/09/2020 Urinalysis, UR ? UA-color yellow pale Final [place] Dipstick, yellow [facility] ital Lab (Internal) : [address] [place] ? ? UR ? UA-appear clear clear Final [place] [facility] (Internal) : [address] ? ? UR ? UA-spec 1.010 1.003-1 Final [place] Grav .035 [facility] Lab (Internal) : [address] ? ? UR ? UA-pH 6.0 [pH] 4.6-8.0 Final [place] [pH] [facility] Lab (Internal) : [address] ? ? UR ? UA-leuk negative negativ Final [facility] Lab (Internal) : [address] ? ? UR ? UA-nitrit negative negativ Final [facility] (Internal) : [address] ? ? UR ? UA-prot negative negativ Final [facility] Lab (Internal) : [address] ? ? UR ? UA-gluc negative negativ Final [facility] Lab (Internal) : [address] ? ? UR ? UA-ketone negative negativ Final [facility] Lab (Internal) : [address] ? ? UR ? UA-urobil normal normal Final [facility] Lab (Internal) : [address] ? ? UR ? UA-bili negative negativ Final [facility] Lab (Internal) : [address] ? ? UR ABNORMA UA-blood moderate negativ Final [facility] Lab (Internal) : [address] 07/09/2020 Urinalysis, UR ? UA-WBC 0-3 [hpf] 0-3 [facility] Microscopic [hpf] Count Hospital Lab (Internal) : [address] ? ? UR ABNORMA UA-RBC 3-5 [hpf] 0-2 Final [facility] [hpf] [facility] Lab (Internal) : [address] ? ? UR ? UA-bacter none seen none Final Nor th [place] [hpf] seen [facility] [hpf] Hospital Lab (Internal) : [address] ? ? UR ? UA-epithe none seen none Final Nor th lial [hpf] seen [facility] [hpf] Hospital Lab (Internal) : [address] ? ? UR ? UA-mucus none seen none Final Nort h [hpf] seen Country [hpf] Hospital Lab (Internal) : [address] ? ? UR ? Hyaline C rare [hpf] ? Final No rth [facility] Hospital Lab (Internal) : [address] 07/09/2020 CMP, Serum or S High g/r 151 mg/dL 74-106 Fin al North Plasma mg/dL [facility] Hospital Lab (Internal) : [address] ? ? S High Bun 34 mg/dL 9-20 Final North mg/dL [facility] Hospital Lab (Internal) : [address] ? ? S High Crea 1.30 mg/dL 0.66-1. Final North 25 Country mg/dL Hospital Lab (Internal) : [address] ? ? S ? Ca 8.9 mg/dL 8.4-10. Final North 2 mg/dL [facility] Hospital Lab (Internal) : [address] ? ? S ? Na 140 mmol/L 137-145 Final North mmol/L [facility] Hospital Lab (Internal) : [address] ? ? S ? K 4.1 mmol/L 3.5-5.1 Final North mmol/L [facility] Hospital Lab (Internal) : [address] ? ? S ? Cl 100 mmol/L 98-107 Final North mmol/L [facility] Hospital Lab (Internal) : [address] ? ? S High Tco2 31.0 mmol/L 22.0-30 Final Nort h .0 Country mmol/L Hospital Lab (Internal) : [address] ? ? S ? Tp 7.2 g/dL 6.3-8.2 Final North g/dL [facility] Hospital Lab (Internal) : [address] ? ? S ? Alb 4.7 g/dL 3.5-5.0 Final North g/dL [facility] Hospital Lab (Internal) : [address] ? ? S ? Tbil 0.7 mg/dL 0.2-1.3 Final North mg/dL [facility] Hospital Lab (Internal) : [address] ? ? S ? Alp 71 U/L 50-136 Final North U/L [facility] Hospital Lab (Internal) : [address] ? ? S Low Alt 20 U/L 21-72 Final [place] (Sgpt) U/L [facility] Hospital Lab (Internal) : [address] ? ? S ? Ast 20 U/L 17-59 Final [place] (Sgot) U/L [facility] Lab (Internal) : [address] 07/09/2020 Lipase, Serum S ? Lip 243 U/L 23-300 Final North or Plasma U/L [facility] Hospital Lab (Internal) : [address] 04/08/2020 BMP, Serum or S ? g/r 103 mg/dL 74-106 Fin al [place] Plasma mg/dL [facility] Hospital Lab (Internal) : [address] ? ? S ? Bun 12 mg/dL 9-20 Final North mg/dL [facility] Lab (Internal) : [address] ? ? S ? Crea 0.80 mg/dL 0.66-1. Final North 25 Country mg/dL Hospital Lab (Internal) : [address] ? ? S ? Ca 8.4 mg/dL 8.4-10. Final North 2 mg/dL [facility] Hospital Lab (Internal) : [address] ? ? S ? Na 139 mmol/L 137-145 Final North mmol/L [facility] Lab (Internal) : [address] ? ? S ? K 4.4 mmol/L 3.5-5.1 Final North mmol/L [facility] Hospital Lab (Internal) : [address] ? ? S ? Cl 107 mmol/L 98-107 Final [place] mmol/L [facility] Hospital Lab (Internal) : [address] ? ? S ? Tco2 25.0 mmol/L 22.0-30 Final Nort h .0 Country mmol/L Hospital Lab (Internal) : [address] 04/07/2020 BMP, Serum or S High g/r 126 mg/dL 74-106 Fin al [place] Plasma mg/dL [facility] Hospital Lab (Internal) : [address] ? ? S High Bun 27 mg/dL 9-20 Final North mg/dL [facility] Hospital Lab (Internal) : [address] ? ? S ? Crea 1.10 mg/dL 0.66-1. Final North 25 Country mg/dL Hospital Lab (Internal) : [address] ? ? S Low Ca 8.0 mg/dL 8.4-10. Final North 2 mg/dL [facility] Hospital Lab (Internal) : [address] ? ? S ? Na 137 mmol/L 137-145 Final North mmol/L [facility] Lab (Internal) : [address] ? ? S ? K 4.5 mmol/L 3.5-5.1 Final [place] mmol/L [facility] Lab (Internal) : [address] ? ? S ? Cl 105 mmol/L 98-107 Final North mmol/L [facility] Hospital Lab (Internal) : [address] ? ? S ? Tco2 23.0 mmol/L 22.0-30 Final Nort h .0 Country mmol/L Hospital Lab (Internal) : [address] 04/06/2020 CBC W/ Auto BLD ? Wbc 9.9 10*3/uL 5.0-10. Fi nal North Diff 0 Country 10*3/uL Hospital Lab (Internal) : [address] ? ? BLD Low Rbc 4.47 10*6/uL 4.60-6. Final Nor th 00 Country 10*6/uL Hospital Lab (Internal) : [address] ? ? BLD ? Hgb 14.5 g/dL 14.0-18 Final North .0 g/dL [facility] Hospital Lab (Internal) : [address] ? ? BLD ? Hct 43.1 % 41.0-51 Final North .0 % [facility] Lab (Internal) : [address] ? ? BLD High Mcv 96.4 fL 80.0-96 Final North .0 fL [facility] Lab (Internal) : [address] ? ? BLD High Mch 32.4 pg 26.0-32 Final North .0 pg [facility] Lab (Internal) : [address] ? ? BLD ? Mchc 33.6 g/dL 31.0-35 Final North .0 g/dL [facility] (Internal) : [address] [place] ? ? BLD ? Rdw 13.0 % 11.5-14 Final North .5 % [facility] (Internal) : [address] [place] ? ? BLD ? Plt 357 10*3/uL 130-450 Final Nort h 10*3/uL [facility] (Internal) : [address] [place] ? ? BLD ? Anc 5.09 10*3/uL ? Final Nort h [facility] Lab (Internal) : [address] [place] ? ? BLD ? Nlr 1.39 0.00-3. Final North 20 [facility] Lab (Internal) : [address] [place] ? ? BLD ? Neutro 51.7 % 40.0-75 Final North .0 % [facility] Lab (Internal) : [address] [place] ? ? BLD ? Lymph 37.2 % 20.0-50 Final North .0 % [facility] (Internal) : [address] [place] ? ? BLD ? Attala 9.2 % 2.0-10. Final North 0 % [facility] (Internal) : [address] [place] ? ? BLD ? Eos 1.1 % 1.0-6.0 Final North % [facility] Lab (Internal) : [address] [place] ? ? BLD ? Baso 0.3 % 0.0-1.0 Final North % [facility] Lab (Internal) : [address] [place] ? ? BLD ? Ig 0.5 % 0.0-0.9 Final North % [facility] Lab (Internal) : [address] [place] 04/06/2020 BMP, Serum or S High g/r 136 mg/dL 74-106 Fin al [place] Plasma mg/dL [facility] (Internal) : [address] [place] ? ? S High Bun 38 mg/dL 9-20 Final North mg/dL [facility] Lab (Internal) : [address] [place] ? ? S High Crea 2.90 mg/dL 0.66-1. Final North 25 Country mg/dL Hospital Lab (Internal) : [address] [place] ? ? S Low Ca 8.1 mg/dL 8.4-10. Final North 2 mg/dL [facility] Lab (Internal) : [address] ? ? S Low Na 136 mmol/L 137-145 Final North mmol/L [facility] Lab (Internal) : [address] ? ? S ? K 3.9 mmol/L 3.5-5.1 Final [place] mmol/L [facility] Lab (Internal) : [address] ? ? S Low Cl 96 mmol/L 98-107 Final [place] mmol/L [facility] Lab (Internal) : [address] ? ? S ? Tco2 25.0 mmol/L 22.0-30 Final Nort h .0 Country mmol/L Hospital Lab (Internal) : [address] 04/06/2020 BMP, Serum or S ? g/r 102 mg/dL 74-106 Fin al [place] Plasma mg/dL [facility] Lab (Internal) : [address] ? ? S High Bun 39 mg/dL 9-20 Final North mg/dL [facility] Lab (Internal) : [address] ? ? S High Crea 2.20 mg/dL 0.66-1. Final North 25 Country mg/dL Hospital Lab (Internal) : [address] ? ? S Low Ca 8.1 mg/dL 8.4-10. Final North 2 mg/dL [facility] Hospital Lab (Internal) : [address] ? ? S Low Na 134 mmol/L 137-145 Final North mmol/L [facility] Lab (Internal) : [address] ? ? S ? K 4.4 mmol/L 3.5-5.1 Final [place] mmol/L [facility] Lab (Internal) : [address] ? ? S Low Cl 94 mmol/L 98-107 Final [place] mmol/L [facility] Lab (Internal) : [address] ? ? S ? Tco2 27.0 mmol/L 22.0-30 Final Nort h .0 Country mmol/L Hospital Lab (Internal) : [address] 04/05/2020 CBC W/ Auto BLD High Wbc 14.4 10*3/uL 5.0-10. F inal North Diff 0 Country 10*3/uL Hospital Lab (Internal) : [address] [place] ? ? BLD ? Rbc 5.21 10*6/uL 4.60-6. Final Nor 00 Country 10*6/uL Hospital Lab (Internal) : [address] [place] ? ? BLD ? Hgb 17.1 g/dL 14.0-18 Final North .0 g/dL [facility] (Internal) : [address] [place] ? ? BLD ? Hct 50.0 % 41.0-51 Final North .0 % [facility] (Internal) : [address] [place] ? ? BLD ? Mcv 96.0 fL 80.0-96 Final North .0 fL [facility] (Internal) : [address] [place] ? ? BLD High Mch 32.8 pg 26.0-32 Final North .0 pg [facility] Lab (Internal) : [address] [place] ? ? BLD ? Mchc 34.2 g/dL 31.0-35 Final North .0 g/dL [facility] (Internal) : [address] [place] ? ? BLD ? Rdw 13.0 % 11.5-14 Final North .5 % [facility] (Internal) : [address] [place] ? ? BLD High Plt 484 10*3/uL 130-450 Final Nort h 10*3/uL [facility] (Internal) : [address] [place] ? ? BLD ? Anc 10.05 10*3/uL ? Final [facility] (Internal) : [address] [place] ? ? BLD High Nlr 3.59 0.00-3. Final North 20 [facility] Lab (Internal) : [address] [place] ? ? BLD ? Neutro 69.9 % 40.0-75 Final North .0 % [facility] (Internal) : [address] [place] ? ? BLD Low Lymph 19.5 % 20.0-50 Final North .0 % [facility] (Internal) : [address] [place] ? ? BLD ? Att[place] 9.8 % 2.0-10. Final North 0 % [facility] Lab (Internal) : [address] ? ? BLD Low Eos 0.3 % 1.0-6.0 Final [facility] Lab (Internal) : [address] ? ? BLD ? Baso 0.2 % 0.0-1.0 Final [facility] Lab (Internal) : [address] ? ? BLD ? Ig 0.3 % 0.0-0.9 Final [facility] Lab (Internal) : [address] 04/05/2020 Lactic Acid, S High La 2.2 mmol/L 0.7-2.1 Fi nal North Blood mmol/L [facility] Lab (Internal) : [address] 04/05/2020 Lipase, Serum S ? Lip 63 U/L 23-300 Final North or Plasma U/L [facility] Lab (Internal) : [address] 04/05/2020 CMP, Serum or S High g/r 169 mg/dL 74-106 Fin al North Plasma mg/dL [facility] Lab (Internal) : [address] ? ? S High Bun 37 mg/dL 9-20 Final North mg/dL [facility] Lab (Internal) : [address] ? ? S High Crea 4.20 mg/dL 0.66-1. Final North 25 Country mg/dL Hospital Lab (Internal) : [address] ? ? S ? Ca 10.0 mg/dL 8.4-10. Final North 2 mg/dL [facility] Hospital Lab (Internal) : [address] ? ? S Low Na 136 mmol/L 137-145 Final North mmol/L [facility] Lab (Internal) : [address] ? ? S ? K 4.4 mmol/L 3.5-5.1 Final [place] mmol/L [facility] Lab (Internal) : [address] ? ? S Low Cl 88 mmol/L 98-107 Final [place] mmol/L [facility] Lab (Internal) : [address] ? ? S ? Tco2 25.0 mmol/L 22.0-30 Final Nort h .0 Country mmol/L Hospital Lab (Internal) : [address] ? ? S High Tp 9.1 g/dL 6.3-8.2 Final [place] g/dL [facility] Lab (Internal) : [address] ? ? S High Alb 5.3 g/dL 3.5-5.0 Final [place] g/dL [facility] Lab (Internal) : [address] ? ? S ? Tbil 1.0 mg/dL 0.2-1.3 Final [place] mg/dL [facility] Lab (Internal) : [address] ? ? S ? Alp 95 U/L 50-136 Final [place] U/L [facility] Lab (Internal) : [address] ? ? S ? Alt 29 U/L 21-72 Final [place] (Sgpt) U/L [facility] Lab (Internal) : [address] ? ? S ? Ast 35 U/L 17-59 Final [place] (Sgot) U/L [facility] Lab (Internal) : [address] 04/05/2020 Respiratory FLUID ? Final microbiology ? Fi nal [place] Virus Panel results Coun [facility] Hospital Lab (Internal) : [address] 04/05/2020 Urinalysis, UR ? UA-color dark yellow pale Final [place] Dipstick, yellow [facility] Lab (Internal) : [address] ? ? UR ABNORMA UA-appear hazy clear Final [facility] Lab (Internal) : [address] ? ? UR ? UA-spec >=1.030 1.003-1 Final [place] Grav .035 [facility] Lab (Internal) : [address] ? ? UR ? UA-pH 5.0 [pH] 4.6-8.0 Final [place] [pH] [facility] Lab (Internal) : [address] ? ? UR ? UA-leuk negative negativ Final [place] [facility] Lab (Internal) : [address] ? ? UR ? UA-nitrit negative negativ Final Nor th e [facility] Hospital Lab (Internal) : [address] ? ? UR ABNORMA UA-prot 1+ negativ Final [facility] Lab (Internal) : [address] ? ? UR ? UA-gluc negative negativ Final [facility] Lab (Internal) : [address] ? ? UR ABNORMA UA-ketone trace negativ Final Nort [facility] Lab (Internal) : [address] ? ? UR ? UA-urobil normal normal Final [facility] Lab (Internal) : [address] ? ? UR ABNORMA UA-bili small negativ Final [facility] Lab (Internal) : [address] ? ? UR ABNORMA UA-blood trace negativ Final [facility] Lab (Internal) : [address] 04/05/2020 Urinalysis, UR ABNORMA UA-WBC 5-10 [hpf] 0-3 Fi nal [place] Microscopic L [hpf] Count Hospital Lab (Internal) : [address] ? ? UR ? UA-RBC 0-2 [hpf] 0-2 Final North [hpf] [facility] Lab (Internal) : [address] ? ? UR ABNORMA UA-bacter few [hpf] none Final No rth L ia seen [facility] [[facility]] Hospital Lab (Internal) : [address] ? ? UR ? UA-epithe none seen none Final Nor th lial [hpf] seen [facility] [hpf] Hospital Lab (Internal) : [address] ? ? UR ABNORMA UA-mucus moderate none Final Nort h L [hpf] seen [facility] [hpf] Hospital Lab (Internal) : [address] t ? ? UR ? Ca Ox moderate ? Final [place] [hpf] [facility] Hospital Lab (Internal) : [address] ? ? UR ABNORMA Renal few [hpf] none Final North L Cells seen [facility] [hpf] Hospital Lab (Internal) : [address] t ? ? UR ? Hyaline C moderate ? Final Nort h [hpf] [facility] Hospital Lab (Internal) : [address] ? ? UR ? Granular rare [hpf] ? Final Nor th C [facility] Hospital Lab (Internal) : [address] [place] 04/05/2020 Culture UR ? Final microbiology ? Final [place] ([place] results Country Count), Urine Hos pital Lab (Internal) : [address] 04/05/2020 SARS CoV 2 SWAB ? Covid-19 negative negativ Fin al [place] RNA [facility] e Country (COVID-19), Result Hospi horacio QL, poultry veterinarian-PCR, Lab Respiratory (Inte rnal): Specimen [address] t ? ? SWAB ? Performin panther uvmmc ? Final North g Lab lab [facility] Hospital Lab (Internal) : [address] 03/28/2020 CBC W/ Auto BLD High Wbc 14.5 10*3/uL 5.0-10. F inal [place] Diff 0 Country 10*3/uL Hospital Lab (Internal) : [address] t ? ? BLD Low Rbc 4.09 10*6/uL 4.60-6. Final Nor th 00 Country 10*6/uL Hospital Lab (Internal) : [address] ? ? BLD Low Hgb 13.6 g/dL 14.0-18 Final North .0 g/dL [facility] Hospital Lab (Internal) : [address] ? ? BLD Low Hct 39.5 % 41.0-51 Final North .0 % [facility] Hospital Lab (Internal) : [address] ? ? BLD High Mcv 96.6 fL 80.0-96 Final North .0 fL [facility] Hospital Lab (Internal) : [address] ? ? BLD High Mch 33.3 pg 26.0-32 Final North .0 pg Country Hospital Lab (Internal) : [address] ? ? BLD ? Mchc 34.4 g/dL 31.0-35 Final North .0 g/dL [facility] Hospital Lab (Internal) : [address] t ? ? BLD ? Rdw 12.9 % 11.5-14 Final North .5 % [facility] Hospital Lab (Internal) : [address] ? ? BLD ? Plt 301 10*3/uL 130-450 Final Nort h 10*3/uL [facility] Hospital Lab (Internal) : [address] t 03/28/2020 Lipase, Serum S ? Lip 36 U/L 23-300 Final North or Plasma U/L [facility] Hospital Lab (Internal) : [address] t 03/28/2020 CMP, Serum or S High g/r 128 mg/dL 74-106 Fin al North Plasma mg/dL [facility] Hospital Lab (Internal) : [address] ? ? S ? Bun 11 mg/dL 9-20 Final North mg/dL [facility] Hospital Lab (Internal) : [address] ? ? S ? Crea 0.80 mg/dL 0.66-1. Final North 25 Country mg/dL Hospital Lab (Internal) : [address] ? ? S ? Ca 9.1 mg/dL 8.4-10. Final North 2 mg/dL [facility] Hospital Lab (Internal) : [address] ? ? S ? Na 140 mmol/L 137-145 Final North mmol/L [facility] Hospital Lab (Internal) : [address] ? ? S ? K 3.8 mmol/L 3.5-5.1 Final [place] mmol/L [facility] Hospital Lab (Internal) : [address] ? ? S ? Cl 103 mmol/L 98-107 Final [place] mmol/L [facility] Hospital Lab (Internal) : [address] ? ? S ? Tco2 27.0 mmol/L 22.0-30 Final Nort h .0 Country mmol/L Hospital Lab (Internal) : [address] ? ? S ? Tp 7.4 g/dL 6.3-8.2 Final North g/dL [facility] Hospital Lab (Internal) : [address] ? ? S ? Alb 4.4 g/dL 3.5-5.0 Final [place] g/dL [facility] Hospital Lab (Internal) : [address] ? ? S High Tbil 1.5 mg/dL 0.2-1.3 Final North mg/dL [facility] Hospital Lab (Internal) : [address] ? ? S ? Alp 74 U/L 50-136 Final North U/L [facility] Hospital Lab (Internal) : [address] ? ? S Low Alt 19 U/L 21-72 Final [place] (Sgpt) U/L [facility] Hospital Lab (Internal) : [address] ? ? S ? Ast 27 U/L 17-59 Final [place] (Sgot) U/L [facility] Hospital Lab (Internal) : [address] 03/28/2020 Differential, BLD High Polys 80 % 40-75 % Final [place] Manual, Blood Cou [facility] Hospital Lab (Internal) : [address] ? ? BLD ? Bands 0 % 0-5 % Final [facility] Hospital Lab (Internal) : [address] ? ? BLD Low Lymphs 13 % 20-50 % Final [facility] Lab (Internal) : [address] ? ? BLD ? Attala 7 % 2-10 % Final [facility] Hospital Lab (Internal) : [address] ? ? BLD ? Eos 0 % 0-6 % Final [facility] Lab (Internal) : [address] ? ? BLD ? Baso 0 % 0-1 % Final [facility] Lab (Internal) : [address] ? ? BLD ? Atyp 0 % ? Final [facility] Lab (Internal) : [address] ? ? BLD ? Plts, adequate adequat Final [place] Est. e [facility] Hospital Lab (Internal) : [address] ? ? BLD ? RBC normal normal Final [place] Morphology Countr Hospital Lab (Internal) : [address] 03/28/2020 Neutrophil BLD ? Anc-manua 11.60 10*3/uL ? Final [place] Count, l [facility] (Anc), Blood Lab (Internal) : [address] 03/28/2020 Nlr-manual BLD High Nlr - 6.15 0.00-3. Final N orth Manual 20 [facility] Hospital Lab (Internal) : [address] 03/28/2020 Urinalysis, UR ? UA-color dark yellow pale Final [place] Dipstick, yellow Country Reflex Micro Hosp ital Lab (Internal) : [address] ? ? UR ? UA-appear clear clear Final [facility] Lab (Internal) : [address] ? ? UR ? UA-spec 1.020 1.003-1 Final [place] Grav .035 [facility] Lab (Internal) : [address] ? ? UR ? UA-pH 7.0 [pH] 4.6-8.0 Final [place] [pH] [facility] Lab (Internal) : [address] ? ? UR ? UA-leuk negative negativ Final [facility] Lab (Internal) : [address] ? ? UR ? UA-nitrit negative negativ Final [facility] Lab (Internal) : [address] ? ? UR ABNORMA UA-prot trace negativ Final [facility] Lab (Internal) : [address] ? ? UR ? UA-gluc negative negativ Final [facility] Lab (Internal) : [address] ? ? UR ABNORMA UA-ketone 4+ negativ Final [facility] Lab (Internal) : [address] ? ? UR ABNORMA UA-urobil positive normal Final [facility] Lab (Internal) : [address] ? ? UR ABNORMA UA-bili small negativ Final [facility] Lab (Internal) : [address] ? ? UR ABNORMA UA-blood moderate negativ Final [facility] Lab (Internal) : [address] 03/28/2020 Urinalysis, UR ? UA-WBC 0-3 [hpf] 0-3 [facility] Microscopic [hpf] Count Hospital Lab (Internal) : [address] ? ? UR ABNORMA UA-RBC 5-10 [hpf] 0-2 Final [facility] [hpf] [facility] Lab (Internal) : [address] ? ? UR ? UA-bacter rare [hpf] none Final No rth ia seen [facility] [hpf] Hospital Lab (Internal) : [address] ? ? UR ? UA-epithe rare [hpf] none Final No rth lial seen Country [hpf] Hospital Lab (Internal) : [address] ? ? UR ABNORMA UA-mucus moderate none Final Nort h L [hpf] seen Country [hpf] Hospital Lab (Internal) : [address] [place] 03/28/2020 Troponin I, S ? Trop <0.06 NG/mL 0.00-0. Fi nal [place] Serum or 06 Country Plasma NG/mL Hospital Lab (Internal) : [address] [place] 03/28/2020 Drug Screen, UR ABNORMA Thc positive neg (50 Fin al North Urine L NG/mL NG/mL) Country NG/mL Hospital Lab (Internal) : [address] ? ? UR ? Pcp negative neg (25 Final North NG/mL) [facility] Hospital Lab (Internal) : [address] ? ? UR ? Gena negative neg Final North (150 Country NG/mL) Hospital Lab (Internal) : [address] ? ? UR ? Met negative neg Final North (500 Country NG/mL) Hospital Lab (Internal) : [address] ? ? UR ABNORMA Opi positive neg Final North L (100 Country NG/mL) Hospital Lab (Internal) : [address] ? ? UR ? Amp negative neg Final North (500 Country NG/mL) Hospital Lab (Internal) : [address] ? ? UR ? Bzo negative neg Final North (150 [place] NG/mL) Hospital Lab (Internal) : [address] ? ? UR ? Tca negative neg Final North (300 [place] NG/mL) Hospital Lab (Internal) : [address] ? ? UR ? Mtd negative neg Final [place] (200 [place] NG/mL) Hospital Lab (Internal) : [address] ? ? UR ? Bar negative neg Final North (200 [place] NG/mL) Hospital Lab (Internal) : [address] ? ? UR ? Oxy negative neg Final [place] (100 [place] NG/mL) Hospital Lab (Internal) : [address] ? ? UR ? Ppx negative neg Final [place] (300 [place] NG/mL) Hospital Lab (Internal) : [address] ? ? UR ? Bup negative neg (10 Final [place] NG/mL) [facility] Lab (Internal) : [address] 01/03/2020 Fecal Occult STL ? Occ Bld negative negativ Fi nal [place] Blood, Stool e Coun try [facility] [address] [facility] Giardia STL ? Giardia negative negativ Final [place] Lamblia Ag, e Count ry EIA, Stool Hospit al Lab (Internal) : [address] [facility]/03[facility]2020 Enteric STL ? Salmonell negative negativ Final [place] Bacteria, a PCR e [facility] Organism Hospital Specific Lab Culture, (Interna l): Stool [address] ? ? STL ? Shigella negative negativ Final Nort h PCR e [facility] Lab (Internal) : [address] ? ? STL ? Campyloba negative negativ Final cter PCR e [facility] Lab (Internal) : [address] ? ? STL ? Shiga negative negativ Final [place] Toxin PCR e [facility] Lab (Internal) : [address] 01/03/2020 Ova + STL ? Parasite no ova and ? Final [place] Parasites, Growth parasites Cou ntry Light seen. Hospital Microscopy, Lab Stool (Internal) : [address] 11/30/2019 CBC W/ Auto BLD High Wbc 17.1 10*3/uL 5.0-10. F inal [place] Diff 0 [facility] 10*3/uL Hospital Lab (Internal) : [address] ? ? BLD ? Rbc 5.37 10*6/uL 4.60-6. Final Nor th 00 Country 10*6/uL Hospital Lab (Internal) : [address] ? ? BLD ? Hgb 17.5 g/dL 14.0-18 Final North .0 g/dL [facility] Hospital Lab (Internal) : [address] ? ? BLD ? Hct 49.4 % 41.0-51 Final North .0 % [facility] Hospital Lab (Internal) : [address] ? ? BLD ? Mcv 92.0 fL 80.0-96 Final North .0 fL [place] Hospital Lab (Internal) : [address] [place] ? ? BLD High Mch 32.6 pg 26.0-32 Final North .0 pg [place] Hospital Lab (Internal) : [address] [place] ? ? BLD High Mchc 35.4 g/dL 31.0-35 Final North .0 g/dL [place] Hospital Lab (Internal) : [address] [place] ? ? BLD High Rdw 44.0 % 11.5-14 Final North .5 % [place] Hospital Lab (Internal) : [address] [place] ? ? BLD ? Plt 362 10*3/uL 130-450 Final Nort h 10*3/uL [place] Hospital Lab (Internal) : [address] [place] ? ? BLD ? Anc 13.61 10*3/uL ? Final Nor th [place] Hospital Lab (Internal) : [address] [place] ? ? BLD High Nlr 6.42 0.00-3. Final North 20 [place] Hospital Lab (Internal) : [address] [place] ? ? BLD High Neutro 79.6 % 40.0-75 Final North .0 % [place] Hospital Lab (Internal) : [address] [place] ? ? BLD Low Lymph 12.4 % 20.0-50 Final North .0 % [place] Hospital Lab (Internal) : [address] [place] ? ? BLD ? Attala 7.3 % 2.0-10. Final North 0 % [place] Hospital Lab (Internal) : [address] [place] ? ? BLD Low Eos 0.0 % 1.0-6.0 Final North % [place] Hospital Lab (Internal) : [address] [place] ? ? BLD ? Baso 0.1 % 0.0-1.0 Final North % [facility] Hospital Lab (Internal) : [address] [place] ? ? BLD ? Ig 0.6 % 0.0-0.9 Final North % [facility] Hospital Lab (Internal) : [address] [place] [place] 11/30/2019 CMP, Serum or S High g/r 190 mg/dL 74-106 Fin al [place] Plasma mg/dL [place] Hospital Lab (Internal) : [address], [place] ? ? S High Bun 62 mg/dL 9-20 Final North mg/dL [facility] Hospital Lab (Internal) : [address], [place] ? ? S High Crea 5.20 mg/dL 0.66-1. Final North 25 [place] mg/dL Hospital Lab (Internal) : [address], [place] ? ? S ? Ca 8.5 mg/dL 8.4-10. Final North 2 mg/dL [facility] Hospital Lab (Internal) : [address] [place] ? ? S Low Na 134 mmol/L 137-145 Final [place] mmol/L [facility] Hospital Lab (Internal) : [address], [place] ? ? S ? K 3.7 mmol/L 3.5-5.1 Final [place] mmol/L [facility] Hospital Lab (Internal) : [address] [place] [address] ? ? S Low Cl 88 mmol/L 98-107 Final [place] mmol/L [facility] Hospital Lab (Internal) : [address] [place] [address] ? ? S Low Tco2 21.0 mmol/L 22.0-30 Final Nort h .0 Country mmol/L Hospital Lab (Internal) : [address] ? ? S ? Tp 8.1 g/dL 6.3-8.2 Final [place] g/dL [facility] Hospital Lab (Internal) : [address] ? ? S ? Alb 5.0 g/dL 3.5-5.0 Final [place] g/dL [facility] Hospital Lab (Internal) : [address] ? ? S High Tbil 2.0 mg/dL 0.2-1.3 Final [place] mg/dL [facility] Hospital Lab (Internal) : [address] ? ? S ? Alp 95 U/L 50-136 Final North U/L [facility] Hospital Lab (Internal) : [address] ? ? S ? Alt 28 U/L 21-72 Final [place] (Sgpt) U/L [facility] Hospital Lab (Internal) : [address] ? ? S ? Ast 29 U/L 17-59 Final [place] (Sgot) U/L [facility] Hospital Lab (Internal) : [address] 11/30/2019 Urinalysis, UR ? UA-color dark yellow pale Final [place] Dipstick, yellow [facility] Reflex Micro Hosp ital Lab (Internal) : [address] ? ? UR ABNORMA UA-appear hazy clear Final [facility] Lab (Internal) : [address] ? ? UR ? UA-spec >=1.030 1.003-1 Final [place] Grav .035 [facility] Lab (Internal) : [address] ? ? UR ? UA-pH 5.0 [pH] 4.6-8.0 Final [place] [pH] [facility] Lab (Internal) : [address] ? ? UR ABNORMA UA-leuk trace negativ Final [facility] Lab (Internal) : [address] ? ? UR ? UA-nitrit negative negativ Final [facility] Lab (Internal) : [address] ? ? UR ABNORMA UA-prot 1+ negativ Final [facility] Lab (Internal) : [address] ? ? UR ? UA-gluc negative negativ Final [facility] Lab (Internal) : [address] ? ? UR ABNORMA UA-ketone trace negativ Final [facility] Lab (Internal) : [address] ? ? UR ? UA-urobil normal normal Final [facility] Lab (Internal) : [address] ? ? UR ABNORMA UA-bili small negativ Final [facility] Lab (Internal) : [address] ? ? UR ? UA-blood negative negativ Final [facility] Lab (Internal) : [address] 11/30/2019 Urinalysis, UR ? UA-WBC 0-3 [hpf] 0-3 [facility] Microscopic [hpf] Count Hospital Lab (Internal) : [address] ? ? UR ? UA-RBC 0-2 [hpf] 0-2 Final [place] [hpf] [facility] Lab (Internal) : [address] ? ? UR ? UA-bacter rare [hpf] none Final No rth ia seen Country [hpf] Hospital Lab (Internal) : [address] ? ? UR ? UA-epithe none seen none Final Nor th lial [hpf] seen [place] [hpf] Hospital Lab (Internal) : [address] ? ? UR ABNORMA UA-mucus few [hpf] none Final Nor th L seen Country [hpf] Hospital Lab (Internal) : [address] ? ? UR ? Hyaline C many [hpf] ? Final No rth [place] Hospital Lab (Internal) : [address] ? ? UR ? Sulfa moderate ? Final [place] Cryst [hpf] [facility] Hospital Lab (Internal) : [address] ? ? UR ABNORMA Unidentif few calcium none Final North L ied Cry phosphate seen Countr y [hpf] [hpf] Hospital Lab (Internal) : [address] 10/11/2019 CBC W/ Auto BLD High Wbc 14.7 10*3/uL 5.0-10. F inal [place] Diff 0 [place] 10*3/uL Hospital Lab (Internal) : [address] ? ? BLD ? Rbc 5.50 10*6/uL 4.60-6. Final Nor th 00 Country 10*6/uL Hospital Lab (Internal) : [address] ? ? BLD ? Hgb 17.9 g/dL 14.0-18 Final North .0 g/dL [facility] Hospital Lab (Internal) : [address] ? ? BLD High Hct 52.7 % 41.0-51 Final North .0 % [facility] Hospital Lab (Internal) : [address] ? ? BLD ? Mcv 95.8 fL 80.0-96 Final [place] .0 fL [facility] Hospital Lab (Internal) : [address] ? ? BLD High Mch 32.5 pg 26.0-32 Final North .0 pg [place] Hospital Lab (Internal) : [address] ? ? BLD ? Mchc 34.0 g/dL 31.0-35 Final North .0 g/dL [place] Hospital Lab (Internal) : [address] [place] ? ? BLD ? Rdw 13.0 % 11.5-14 Final [place] .5 % [place] Hospital Lab (Internal) : [address] ? ? BLD ? Plt 385 10*3/uL 130-450 Final Nort h 10*3/uL [facility] Hospital Lab (Internal) : [address] ? ? BLD ? Anc 11.49 10*3/uL ? Final Nor th [place] Hospital Lab (Internal) : [address] ? ? BLD High Neutro 78.1 % 40.0-75 Final [place] .0 % [place] Hospital Lab (Internal) : [address] ? ? BLD Low Lymph 13.8 % 20.0-50 Final [place] .0 % [place] Hospital Lab (Internal) : [address] ? ? BLD ? Attala 7.4 % 2.0-10. Final North 0 % [facility] Hospital Lab (Internal) : [address] [place] ? ? BLD Low Eos 0.1 % 1.0-6.0 Final North % [facility] Hospital Lab (Internal) : [address] ? ? BLD ? Baso 0.3 % 0.0-1.0 Final North % [facility] Hospital Lab (Internal) : [address] ? ? BLD ? Ig 0.3 % 0.0-0.9 Final [place] % [facility] Hospital Lab (Internal) : [address] 10/11/2019 Lipase, Serum S High Lip 400 U/L 23-300 Final North or Plasma U/L [facility] Hospital Lab (Internal) : [address] 10/11/2019 CMP, Serum or S High g/r 224 mg/dL 74-106 Fin al [place] Plasma mg/dL [place] Hospital Lab (Internal) : [address] ? ? S High Bun 22 mg/dL 9-20 Final [place] mg/dL [facility] Hospital Lab (Internal) : [address] ? ? S High Crea 2.20 mg/dL 0.66-1. Final North 25 [place] mg/dL Hospital Lab (Internal) : [address] ? ? S High Ca 10.9 mg/dL 8.4-10. Final North 2 mg/dL [facility] Hospital Lab (Internal) : [address] [place] ? ? S ? Na 142 mmol/L 137-145 Final [place] mmol/L [facility] Hospital Lab (Internal) : [address] ? ? S ? K 4.5 mmol/L 3.5-5.1 Final [place] mmol/L [facility] Hospital Lab (Internal) : [address] [place] ? ? S Low Cl 91 mmol/L 98-107 Final [place] mmol/L [facility] Hospital Lab (Internal) : [address] [place] ? ? S ? Tco2 26.0 mmol/L 22.0-30 Final Nort h .0 [facility] mmol/L Hospital Lab (Internal) : [address] ? ? S High Tp 10.1 g/dL 6.3-8.2 Final [place] g/dL [facility] Hospital Lab (Internal) : [address] ? ? S High Alb 5.7 g/dL 3.5-5.0 Final [place] g/dL [facility] Hospital Lab (Internal) : [address] ? ? S ? Tbil 1.3 mg/dL 0.2-1.3 Final [place] mg/dL [facility] Hospital Lab (Internal) : [address] ? ? S ? Alp 113 U/L 50-136 Final [place] U/L [facility] Hospital Lab (Internal) : [address] ? ? S ? Alt 28 U/L 21-72 Final [place] (Sgpt) U/L [facility] Hospital Lab (Internal) : [address], [place] ? ? S ? Ast 31 U/L 17-59 Final [place] (Sgot) U/L [facility] Hospital Lab (Internal) : [address] 09/21/2019 Cbc BLD ? Wbc 8.2 10*3/uL 5.0-10. Final North 0 [place] 10*3/uL Hospital Lab (Internal) : [address] ? ? BLD Low Rbc 3.93 10*6/uL 4.60-6. Final Nor th 00 Country 10*6/uL Hospital Lab (Internal) : [address] ? ? BLD Low Hgb 12.6 g/dL 14.0-18 Final North .0 g/dL [facility] Hospital Lab (Internal) : [address] ? ? BLD Low Hct 38.1 % 41.0-51 Final North .0 % [facility] Hospital Lab (Internal) : [address] ? ? BLD High Mcv 96.9 fL 80.0-96 Final North .0 fL [facility] Hospital Lab (Internal) : [address] ? ? BLD High Mch 32.1 pg 26.0-32 Final North .0 pg [place] Hospital Lab (Internal) : [address] ? ? BLD ? Mchc 33.1 g/dL 31.0-35 Final North .0 g/dL [facility] Hospital Lab (Internal) : [address] ? ? BLD ? Rdw 12.3 % 11.5-14 Final North .5 % [facility] Hospital Lab (Internal) : [address] ? ? BLD ? Plt 307 10*3/uL 130-450 Final Nort h 10*3/uL [facility] Lab (Internal) : [address] ? ? BLD ? Anc 5.27 10*3/uL ? Final Nort h [facility] Hospital Lab (Internal) : [address] 09/21/2019 BMP, Serum or S High g/r 120 mg/dL 74-106 Fin al [place] Plasma mg/dL [facility] Hospital Lab (Internal) : [address] ? ? S ? Bun 12 mg/dL 9-20 Final [place] mg/dL [facility] Hospital Lab (Internal) : [address] ? ? S ? Crea 0.80 mg/dL 0.66-1. Final North 25 Country mg/dL Hospital Lab (Internal) : [address] ? ? S Low Ca 8.0 mg/dL 8.4-10. Final North 2 mg/dL [facility] Hospital Lab (Internal) : [address] ? ? S Low Na 136 mmol/L 137-145 Final [place] mmol/L [facility] Hospital Lab (Internal) : [address] ? ? S ? K 4.1 mmol/L 3.5-5.1 Final [place] mmol/L [facility] Lab (Internal) : [address] ? ? S ? Cl 98 mmol/L 98-107 Final [place] mmol/L [facility] Lab (Internal) : [address] ? ? S ? Tco2 27.0 mmol/L 22.0-30 Final Nort h .0 [place] mmol/L Hospital Lab (Internal) : [address] 09/20/2019 Cbc BLD High Wbc 12.7 10*3/uL 5.0-10. Final North 0 [place] 10*3/uL Hospital Lab (Internal) : [address] [place] ? ? BLD Low Rbc 3.77 10*6/uL 4.60-6. Final Nor th 00 Country 10*6/uL Hospital Lab (Internal) : [address], [place] ? ? BLD Low Hgb 12.4 g/dL 14.0-18 Final [place] .0 g/dL [facility] Lab (Internal) : [address] ? ? BLD Low Hct 37.1 % 41.0-51 Final North .0 % [facility] Lab (Internal) : [address] [place] ? ? BLD High Mcv 98.4 fL 80.0-96 Final [place] .0 fL [facility] Lab (Internal) : [address] ? ? BLD High Mch 32.9 pg 26.0-32 Final North .0 pg [facility] Lab (Internal) : [address] ? ? BLD ? Mchc 33.4 g/dL 31.0-35 Final North .0 g/dL [facility] Lab (Internal) : [address] [place] ? ? BLD ? Rdw 12.4 % 11.5-14 Final [place] .5 % [facility] Lab (Internal) : [address] [place] ? ? BLD ? Plt 290 10*3/uL 130-450 Final Nort h 10*3/uL [facility] Hospital Lab (Internal) : [address] [address], [place] ? ? BLD ? Anc 9.70 10*3/uL ? Final Nort h [facility] (Internal) : [address] [place] 09/20/2019 BMP, Serum or S ? g/r 98 mg/dL 74-106 Veronique l North Plasma mg/dL [facility] (Internal) : [address] ? ? S ? Bun 16 mg/dL 9-20 Final North mg/dL [facility] (Internal) : [address] ? ? S ? Crea 0.90 mg/dL 0.66-1. Final North 25 Country mg/dL Hospital Lab (Internal) : [address] ? ? S Low Ca 7.5 mg/dL 8.4-10. Final North 2 mg/dL [facility] (Internal) : [address] ? ? S Low Na 134 mmol/L 137-145 Final North mmol/L [facility] (Internal) : [address] ? ? S ? K 4.5 mmol/L 3.5-5.1 Final North mmol/L [facility] (Internal) : [address] ? ? S Low Cl 97 mmol/L 98-107 Final North mmol/L [facility] (Internal) : [address] t ? ? S ? Tco2 29.0 mmol/L 22.0-30 Final Nort h .0 Country mmol/L Hospital Lab (Internal) : [address] [place] 09/19/2019 CBC W/ Auto BLD High Wbc 14.7 10*3/uL 5.0-10. F inal North Diff 0 Country 10*3/uL Hospital Lab (Internal) : [address] ? ? BLD Low Rbc 4.48 10*6/uL 4.60-6. Final Nor th 00 Country 10*6/uL Hospital Lab (Internal) : [address] ? ? BLD ? Hgb 14.6 g/dL 14.0-18 Final North .0 g/dL [facility] (Internal) : [address] ? ? BLD ? Hct 42.6 % 41.0-51 Final North .0 % [facility] Hospital Lab (Internal) : [address] ? ? BLD ? Mcv 95.1 fL 80.0-96 Final North .0 fL [facility] (Internal) : [address], [place] ? ? BLD High Mch 32.6 pg 26.0-32 Final North .0 pg [facility] Lab (Internal) : [address] ? ? BLD ? Mchc 34.3 g/dL 31.0-35 Final North .0 g/dL [facility] (Internal) : [address] [place] ? ? BLD ? Rdw 12.5 % 11.5-14 Final North .5 % [facility] (Internal) : [address] [place] ? ? BLD ? Plt 404 10*3/uL 130-450 Final Nort h 10*3/uL [facility] (Internal) : [address] [place] ? ? BLD ? Anc 10.11 10*3/uL ? Final Nor th [facility] (Internal) : [address] [place] ? ? BLD ? Neutro 68.7 % 40.0-75 Final North .0 % [facility] (Internal) : [address] [place] ? ? BLD ? Lymph 23.2 % 20.0-50 Final North .0 % [facility] (Internal) : [address] [place] ? ? BLD ? Attala 7.0 % 2.0-10. Final North 0 % [facility] (Internal) : [address] [place] ? ? BLD Low Eos 0.6 % 1.0-6.0 Final North % [facility] (Internal) : [address] [place] ? ? BLD ? Baso 0.1 % 0.0-1.0 Final North % [facility] (Internal) : [address] [place] ? ? BLD ? Ig 0.4 % 0.0-0.9 Final North % [facility] (Internal) : [address], [place] 09/19/2019 CMP, Serum or S High g/r 133 mg/dL 74-106 Fin al [place] Plasma mg/dL [facility] (Internal) : [address] [place] ? ? S High Bun 37 mg/dL 9-20 Final [place] mg/dL [facility] (Internal) : [address] [place] ? ? S High Crea 3.30 mg/dL 0.66-1. Final [place] 25 Country mg/dL Hospital Lab (Internal) : [address] ? ? S ? Ca 9.1 mg/dL 8.4-10. Final North 2 mg/dL [facility] (Internal) : [address], [place] ? ? S Low Na 134 mmol/L 137-145 Final [place] mmol/L [facility] (Internal) : [address] ? ? S ? K 4.5 mmol/L 3.5-5.1 Final [place] mmol/L [facility] (Internal) : [address] ? ? S Low Cl 86 mmol/L 98-107 Final [place] mmol/L [facility] (Internal) : [address] ? ? S ? Tco2 29.0 mmol/L 22.0-30 Final Nort h .0 [facility] mmol/L Hospital Lab (Internal) : [address] ? ? S ? Tp 7.8 g/dL 6.3-8.2 Final North g/dL [facility] (Internal) : [address] t ? ? S ? Alb 4.8 g/dL 3.5-5.0 Final [place] g/dL [facility] (Internal) : [address] ? ? S ? Tbil 0.8 mg/dL 0.2-1.3 Final [place] mg/dL [facility] (Internal) : [address] ? ? S ? Alp 81 U/L 50-136 Final [place] U/L [facility] (Internal) : [address] ? ? S ? Alt 30 U/L 21-72 Final [place] (Sgpt) U/L [facility] (Internal) : [address] ? ? S ? Ast 27 U/L 17-59 Final [place] (Sgot) U/L [facility] Lab (Internal) : [address] t 09/19/2019 Urinalysis, UR ? UA-color yellow pale Final [place] Dipstick, yellow [facility] ital Lab (Internal) : [address] ? ? UR ? UA-appear clear clear Final [facility] Lab (Internal) : [address] ? ? UR ? UA-spec 1.020 1.003-1 Final [place] Grav .035 [facility] (Internal) : [address] ? ? UR ? UA-pH 5.5 [pH] 4.6-8.0 Final [place] [pH] [facility] Lab (Internal) : [address] ? ? UR ? UA-leuk negative negativ Final [facility] Lab (Internal) : [address] ? ? UR ? UA-nitrit negative negativ Final [facility] Lab (Internal) : [address] ? ? UR ? UA-prot negative negativ Final [facility] Lab (Internal) : [address] ? ? UR ? UA-gluc negative negativ Final [facility] Lab (Internal) : [address] ? ? UR ? UA-ketone negative negativ Final [facility] Lab (Internal) : [address] ? ? UR ? UA-urobil normal normal Final [facility] Lab (Internal) : [address] ? ? UR ? UA-bili negative negativ Final [facility] Lab (Internal) : [address] ? ? UR ? UA-blood negative negativ Final [facility] Lab (Internal) : [address] 09/06/2019 Cbc BLD High Wbc 10.1 10*3/uL 5.0-10. Final [place] 0 [facility] 10*3/uL Hospital Lab (Internal) : [address] ? ? BLD Low Rbc 3.85 10*6/uL 4.60-6. Final [facility] 00 [facility] 10*6/uL Hospital Lab (Internal) : [address] ? ? BLD Low Hgb 12.6 g/dL 14.0-18 Final North .0 g/dL [facility] (Internal) : [address] ? ? BLD Low Hct 37.4 % 41.0-51 Final North .0 % [facility] (Internal) : [address] ? ? BLD High Mcv 97.1 fL 80.0-96 Final North .0 fL [facility] (Internal) : [address] ? ? BLD High Mch 32.7 pg 26.0-32 Final North .0 pg [facility] Lab (Internal) : [address] ? ? BLD ? Mchc 33.7 g/dL 31.0-35 Final North .0 g/dL [facility] (Internal) : [address] ? ? BLD ? Rdw 12.9 % 11.5-14 Final North .5 % [facility] (Internal) : [address] ? ? BLD ? Plt 213 10*3/uL 130-450 Final Nort h 10*3/uL [facility] (Internal) : [address] ? ? BLD ? Anc 6.45 10*3/uL ? Final Nort h [facility] (Internal) : [address] 09/06/2019 BMP, Serum or S High g/r 110 mg/dL 74-106 Fin al North Plasma mg/dL [facility] (Internal) : [address] ? ? S High Bun 50 mg/dL 9-20 Final North mg/dL [facility] (Internal) : [address] ? ? S High Crea 2.00 mg/dL 0.66-1. Final North 25 Country mg/dL Hospital Lab (Internal) : [address] ? ? S CRITICA Ca 6.1 mg/dL 8.4-10. Final North L LOW 2 mg/dL [facility] (Internal) : [address] ? ? S ? Na 137 mmol/L 137-145 Final North mmol/L [facility] (Internal) : [address] ? ? S ? K 4.3 mmol/L 3.5-5.1 Final North mmol/L [facility] (Internal) : [address] ? ? S ? Cl 105 mmol/L 98-107 Final North mmol/L [facility] (Internal) : [address] ? ? S ? Tco2 24.0 mmol/L 22.0-30 Final Nort h .0 [place] mmol/L Hospital Lab (Internal) : [address] 09/06/2019 PSA, Serum or S ? PSA Scrn 2.9 NG/mL 0.0-4.0 Final North Plasma NG/mL [facility] (Internal) : [address] t 09/05/2019 BMP, Serum or S High g/r 168 mg/dL 74-106 Fin al North Plasma mg/dL [facility] (Internal) : [address] ? ? S High Bun 94 mg/dL 9-20 Final North mg/dL [facility] (Internal) : [address] ? ? S High Crea 9.60 mg/dL 0.66-1. Final North 25 Country mg/dL Hospital Lab (Internal) : [address] ? ? S Low Ca 8.3 mg/dL 8.4-10. Final North 2 mg/dL [facility] (Internal) : [address] ? ? S Low Na 133 mmol/L 137-145 Final North mmol/L [facility] (Internal) : [address] ? ? S ? K 4.7 mmol/L 3.5-5.1 Final North mmol/L [facility] (Internal) : [address] ? ? S Low Cl 81 mmol/L 98-107 Final North mmol/L [facility] (Internal) : [address] ? ? S ? Tco2 25.0 mmol/L 22.0-30 Final Nort h .0 [place] mmol/L Hospital Lab (Internal) : [address] 09/05/2019 CBC W/ Auto BLD High Wbc 20.8 10*3/uL 5.0-10. F inal North Diff 0 [place] 10*3/uL Hospital Lab (Internal) : [address] ? ? BLD ? Rbc 5.48 10*6/uL 4.60-6. Final Nor th 00 [place] 10*6/uL Hospital Lab (Internal) : [address] ? ? BLD ? Hgb 17.9 g/dL 14.0-18 Final North .0 g/dL [facility] (Internal) : [address] [place] ? ? BLD High Hct 51.7 % 41.0-51 Final North .0 % [facility] (Internal) : [address] [place] ? ? BLD ? Mcv 94.3 fL 80.0-96 Final North .0 fL [facility] (Internal) : [address] [place] ? ? BLD High Mch 32.7 pg 26.0-32 Final North .0 pg [facility] (Internal) : [address] [place] ? ? BLD ? Mchc 34.6 g/dL 31.0-35 Final North .0 g/dL [facility] (Internal) : [address] [place] ? ? BLD ? Rdw 13.0 % 11.5-14 Final North .5 % [facility] (Internal) : [address] [place] ? ? BLD ? Plt 334 10*3/uL 130-450 Final Nort h 10*3/uL [facility] (Internal) : [address] [place] 09/05/2019 Differential, BLD High Polys 80 % 40-75 % Final [facility], Blood Cou [facility] Hospital Lab (Internal) : [address] [place] ? ? BLD ? Bands 0 % 0-5 % Final [facility] Lab (Internal) : [address] [place] ? ? BLD Low Lymphs 11 % 20-50 % Final [facility] Lab (Internal) : [address] [place] ? ? BLD ? Attala 9 % 2-10 % Final [facility] Lab (Internal) : [address] [place] ? ? BLD ? Eos 0 % 0-6 % Final [facility] (Internal) : [address] [place] ? ? BLD ? Baso 0 % 0-1 % Final [facility] (Internal) : [address] [place] ? ? BLD ? Atyp 0 % ? Final [facility] Lab (Internal) : [address] [place] ? ? BLD ? Plts, adequate adequat Final [place] Est. e [facility] (Internal) : [address] [place] ? ? BLD ? RBC normal normal Final [facility] Lab (Internal) : [address] 09/05/2019 Neutrophil BLD ? Anc-manua 16.65 10*3/uL ? Final [facility] (Anc), Blood Lab (Internal) : [address] 09/05/2019 Urinalysis, UR ? UA-color yellow pale Final [place] Dipstick, yellow [facility] Reflex Micro Hosp ital Lab (Internal) : [address] ? ? UR ABNORMA UA-appear hazy clear Final [facility] Lab (Internal) : [address] ? ? UR ? UA-spec >=1.030 1.003-1 Final [place] Grav .035 [facility] Lab (Internal) : [address] ? ? UR ? UA-pH 5.0 [pH] 4.6-8.0 Final [place] [pH] [facility] Lab (Internal) : [address] ? ? UR ? UA-leuk negative negativ Final [facility] Lab (Internal) : [address] ? ? UR ? UA-nitrit negative negativ Final [facility] Lab (Internal) : [address] ? ? UR ABNORMA UA-prot 2+ negativ Final [facility] Lab (Internal) : [address] ? ? UR ? UA-gluc negative negativ Final [facility] Lab (Internal) : [address] ? ? UR ABNORMA UA-ketone trace negativ Final [facility] Lab (Internal) : [address] ? ? UR ? UA-urobil normal normal Final [facility] Lab (Internal) : [address] ? ? UR ABNORMA UA-bili small negativ Final [facility] Lab (Internal) : [address] ? ? UR ABNORMA UA-blood moderate negativ Final [facility] Lab (Internal) : [address] 09/05/2019 Urinalysis, UR ? UA-WBC 0-3 [hpf] 0-3 Veronique marielle [place] Microscopic [hpf] Count Hospital Lab (Internal) : [address] [place] ? ? UR ? UA-RBC 0-2 [hpf] 0-2 Final North [hpf] [facility] (Internal) : [address] [place] ? ? UR ABNORMA UA-bacter moderate none Final Nor th L ia [hpf] seen Country [hpf] Hospital Lab (Internal) : [address] [place] ? ? UR ABNORMA UA-epithe few [hpf] none Final No rth L lial seen Country [hpf] Hospital Lab (Internal) : [address] [place] ? ? UR ABNORMA UA-mucus many [hpf] none Final No rth L seen Country [hpf] Hospital Lab (Internal) : [address] [place] ? ? UR ? Amorph moderate ? Final North [place] [hpf] [facility] (Internal) : [address] [place] ? ? UR ? Ca Ox few [hpf] ? Final North Cryst [facility] (Internal) : [address] [place] ? ? UR ? Hyaline C moderate ? Final Nort h [hpf] [facility] (Internal) : [address] [place] ? ? UR ? Sulfa few [hpf] ? Final North Cryst [facility] (Internal) : [address] [place] ? ? UR ? Granular few [hpf] ? Final Nort h C [facility] (Internal) : [address] [place] ? ? UR ABNORMA Waxy Cast few [hpf] none Final No rth L seen [facility] [hpf] Hospital Lab (Internal) : [address] [place] ? ? UR ? Transitio few [hpf] ? Final Nor th n Cells [facility] Lab (Internal) : [address] [place] 09/05/2019 Culture UR ? Final microbiology ? Final [place] ([place] results Country Count), Urine Hos pital Lab (Internal) : [address] [place] 09/05/2019 CBC W/ Auto BLD High Wbc 18.6 10*3/uL 5.0-10. F inal [place] Diff 0 [place] 10*3/uL Hospital Lab (Internal) : [address] [place] ? ? BLD ? Rbc 4.71 10*6/uL 4.60-6. Final Nor th 00 [place] 10*6/uL Hospital Lab (Internal) : [address] [place] ? ? BLD ? Hgb 15.6 g/dL 14.0-18 Final North .0 g/dL [facility] Lab (Internal) : [address] [place] ? ? BLD ? Hct 44.7 % 41.0-51 Final North .0 % [facility] Lab (Internal) : [address] [place] ? ? BLD ? Mcv 94.9 fL 80.0-96 Final North .0 fL [facility] (Internal) : [address] [place] ? ? BLD High Mch 33.1 pg 26.0-32 Final North .0 pg [facility] (Internal) : [address] [place] ? ? BLD ? Mchc 34.9 g/dL 31.0-35 Final North .0 g/dL [facility] (Internal) : [address] [place] ? ? BLD ? Rdw 13.0 % 11.5-14 Final North .5 % [facility] (Internal) : [address] [place] ? ? BLD ? Plt 265 10*3/uL 130-450 Final Nort h 10*3/uL [facility] (Internal) : [address] [place] ? ? BLD ? Anc 14.22 10*3/uL ? Final Nor th [facility] (Internal) : [address] [place] ? ? BLD High Neutro 76.5 % 40.0-75 Final North .0 % [facility] (Internal) : [address] [place] ? ? BLD Low Lymph 11.3 % 20.0-50 Final North .0 % [facility] (Internal) : [address] [place] ? ? BLD High [place] 11.5 % 2.0-10. Final North 0 % [facility] (Internal) : [address] [place] ? ? BLD Low Eos 0.0 % 1.0-6.0 Final North % [facility] (Internal) : [address] [place] ? ? BLD ? Baso 0.1 % 0.0-1.0 Final [facility] Lab (Internal) : [address] ? ? BLD ? Ig 0.6 % 0.0-0.9 Final [facility] Lab (Internal) : [address] [place] [address] 09/05/2019 BMP, Serum or S High g/r 132 mg/dL 74-106 Fin al [place] Plasma mg/dL [facility] Lab (Internal) : [address] ? ? S High Bun 93 mg/dL 9-20 Final North mg/dL [facility] (Internal) : [address] ? ? S High Crea 7.10 mg/dL 0.66-1. Final North 25 Country mg/dL Hospital Lab (Internal) : [address] ? ? S Low Ca 6.8 mg/dL 8.4-10. Final North 2 mg/dL [facility] (Internal) : [address] ? ? S Low Na 133 mmol/L 137-145 Final [place] mmol/L [facility] (Internal) : [address] ? ? S ? K 4.9 mmol/L 3.5-5.1 Final [place] mmol/L [facility] (Internal) : [address] ? ? S Low Cl 91 mmol/L 98-107 Final [place] mmol/L [facility] (Internal) : [address] ? ? S ? Tco2 23.0 mmol/L 22.0-30 Final Nort h .0 [facility] mmol/L Hospital Lab (Internal) : [address] 09/05/2019 PSA, Serum or S ? PSA Scrn 3.8 NG/mL 0.0-4.0 Final [place] Plasma NG/mL [facility] Lab (Internal) : [address] 09/05/2019 Cbc BLD High Wbc 15.2 10*3/uL 5.0-10. Final North 0 Country 10*3/uL Hospital Lab (Internal) : [address] ? ? BLD ? Rbc 4.67 10*6/uL 4.60-6. Final Nor th 00 [place] 10*6/uL Hospital Lab (Internal) : [address] [place] ? ? BLD ? Hgb 15.2 g/dL 14.0-18 Final North .0 g/dL [facility] (Internal) : [address] ? ? BLD ? Hct 44.6 % 41.0-51 Final North .0 % [facility] (Internal) : [address] ? ? BLD ? Mcv 95.5 fL 80.0-96 Final North .0 fL [facility] (Internal) : [address] [place] ? ? BLD High Mch 32.5 pg 26.0-32 Final North .0 pg [facility] Lab (Internal) : [address] ? ? BLD ? Mchc 34.1 g/dL 31.0-35 Final North .0 g/dL [facility] (Internal) : [address] ? ? BLD ? Rdw 12.9 % 11.5-14 Final North .5 % [facility] (Internal) : [address] ? ? BLD ? Plt 246 10*3/uL 130-450 Final Nort h 10*3/uL [facility] (Internal) : [address] ? ? BLD ? Anc 11.56 10*3/uL ? Final Nor th [facility] Lab (Internal) : [address] 09/05/2019 BMP, Serum or S High g/r 114 mg/dL 74-106 Fin al [place] Plasma mg/dL [facility] (Internal) : [address] ? ? S High Bun 76 mg/dL 9-20 Final North mg/dL [facility] (Internal) : [address] ? ? S High Crea 4.30 mg/dL 0.66-1. Final North 25 Country mg/dL Hospital Lab (Internal) : [address] ? ? S Low Ca 6.9 mg/dL 8.4-10. Final North 2 mg/dL [facility] Lab (Internal) : [address] ? ? S Low Na 133 mmol/L 137-145 Final North mmol/L [facility] Lab (Internal) : [address] ? ? S ? K 4.0 mmol/L 3.5-5.1 Final [place] mmol/L [facility] (Internal) : [address] ? ? S Low Cl 92 mmol/L 98-107 Final [place] mmol/L [facility] (Internal) : [address] ? ? S ? Tco2 26.0 mmol/L 22.0-30 Final Nort h .0 [place] mmol/L Hospital Lab (Internal) : [address] 02/26/2019 Cbc BLD High Wbc 11.2 10*3/uL 5.0-10. Final North 0 [place] 10*3/uL Hospital Lab (Internal) : [address] ? ? BLD Low Rbc 3.79 10*6/uL 4.60-6. Final Nor th 00 [place] 10*6/uL Hospital Lab (Internal) : [address] ? ? BLD Low Hgb 12.4 g/dL 14.0-18 Final North .0 g/dL [facility] (Internal) : [address] ? ? BLD Low Hct 37.4 % 41.0-51 Final North .0 % [facility] (Internal) : [address] [place] ? ? BLD High Mcv 98.7 fL 80.0-96 Final North .0 fL [facility] (Internal) : [address] ? ? BLD High Mch 32.7 pg 26.0-32 Final North .0 pg [facility] (Internal) : [address] ? ? BLD - Mchc 33.2 g/dL 31.0-35 Final North .0 g/dL [facility] (Internal) : [address] ? ? BLD - Rdw 13.1 % 11.5-14 Final North .5 % [facility] (Internal) : [address] [place] ? ? BLD - Plt 215 10*3/uL 130-450 Final Nort h 10*3/uL [facility] (Internal) : [address] [place] ? ? BLD - Anc 7.12 10*3/uL ? Final Nort h [facility] (Internal) : [address] 02/26/2019 CMP, Serum or S - g/r 105 mg/dL 74-106 Fin al [place] Plasma mg/dL [facility] (Internal) : [address] ? ? S High Bun 41 mg/dL 9-20 Final North mg/dL [facility] Lab (Internal) : [address] ? ? S High Crea 1.70 mg/dL 0.66-1. Final North 25 Country mg/dL Hospital Lab (Internal) : [address] ? ? S Low Ca 7.0 mg/dL 8.4-10. Final North 2 mg/dL [facility] Lab (Internal) : [address] ? ? S - Na 138 mmol/L 137-145 Final [place] mmol/L [facility] Lab (Internal) : [address] ? ? S - K 4.6 mmol/L 3.5-5.1 Final [place] mmol/L [facility] Lab (Internal) : [address] ? ? S - Cl 104 mmol/L 98-107 Final [place] mmol/L [facility] Lab (Internal) : [address] ? ? S - Tco2 29.0 mmol/L 22.0-30 Final Nort h .0 [facility] mmol/L Hospital Lab (Internal) : [address] ? ? S Low Tp 5.8 g/dL 6.3-8.2 Final North g/dL [facility] Lab (Internal) : [address] ? ? S Low Alb 3.4 g/dL 3.5-5.0 Final [place] g/dL [facility] (Internal) : [address] ? ? S - Tbil 1.3 mg/dL 0.2-1.3 Final North mg/dL [facility] Lab (Internal) : [address] ? ? S - Alp 63 U/L 50-136 Final North U/L [facility] Lab (Internal) : [address] ? ? S - Alt 24 U/L 21-72 Final North (Sgpt) U/L [facility] Lab (Internal) : [address] ? ? S - Ast 34 U/L 17-59 Final North (Sgot) U/L [facility] (Internal) : [address] [place] 02/25/2019 Cbc BLD High Wbc 24.9 10*3/uL 5.0-10. Final North 0 [place] 10*3/uL Hospital Lab (Internal) : [address] [place] ? ? BLD Low Rbc 4.55 10*6/uL 4.60-6. Final Nor th 00 [place] 10*6/uL Hospital Lab (Internal) : [address] [place] ? ? BLD - Hgb 15.0 g/dL 14.0-18 Final North .0 g/dL [facility] (Internal) : [address] [place] ? ? BLD - Hct 42.5 % 41.0-51 Final North .0 % [facility] (Internal) : [address] [place] ? ? BLD - Mcv 93.4 fL 80.0-96 Final North .0 fL [facility] (Internal) : [address] [place] ? ? BLD High Mch 33.0 pg 26.0-32 Final North .0 pg [facility] (Internal) : [address] [place] ? ? BLD High Mchc 35.3 g/dL 31.0-35 Final North .0 g/dL [facility] (Internal) : [address] [place] ? ? BLD - Rdw 13.0 % 11.5-14 Final North .5 % [facility] (Internal) : [address] [place] ? ? BLD - Plt 274 10*3/uL 130-450 Final Nort h 10*3/uL [facility] (Internal) : [address] [place] ? ? BLD - Anc 21.32 10*3/uL ? [facility] : [address] [place] 02/25/2019 CMP, Serum or S High g/r 149 mg/dL 74-106 Fin al [place] Plasma mg/dL [facility] : [address] ? ? S High Bun 62 mg/dL 9-20 Final [place] mg/dL [facility] : [address] ? ? S High Crea 3.70 mg/dL 0.66-1. Final North 25 [facility] mg/dL Hospital Lab (Internal) : [address] ? ? S Low Ca 8.2 mg/dL 8.4-10. Final North 2 mg/dL [facility] Lab (Internal) : [address] ? ? S Low Na 135 mmol/L 137-145 Final [place] mmol/L [facility] (Internal) : [address] ? ? S - K 4.4 mmol/L 3.5-5.1 Final [place] mmol/L [facility] Lab (Internal) : [address] ? ? S Low Cl 95 mmol/L 98-107 Final [place] mmol/L [facility] (Internal) : [address] ? ? S - Tco2 29.0 mmol/L 22.0-30 Final Nort h .0 [facility] mmol/L Hospital Lab (Internal) : [address] ? ? S - Tp 6.9 g/dL 6.3-8.2 Final [place] g/dL [facility] (Internal) : [address] ? ? S - Alb 4.2 g/dL 3.5-5.0 Final [place] g/dL [facility] (Internal) : [address] ? ? S High Tbil 2.0 mg/dL 0.2-1.3 Final [place] mg/dL [facility] (Internal) : [address] ? ? S - Alp 79 U/L 50-136 Final [place] U/L [facility] (Internal) : [address] ? ? S - Alt 27 U/L 21-72 Final [place] (Sgpt) U/L [facility] (Internal) : [address] ? ? S - Ast 33 U/L 17-59 Final [place] (Sgot) U/L [facility] (Internal) : [address] 02/24/2019 Lipase, Serum S - Lip 133 U/L 23-300 Final [place] or Plasma U/L [facility] (Internal) : [address] t 02/24/2019 CBC W/ Auto BLD CRITICA Wbc 31.0 10*3/uL 5.0-10. Final [place] Diff L HIGH 0 Country 10*3/uL Hospital Lab (Internal) : [address] ? ? BLD - Rbc 5.80 10*6/uL 4.60-6. Final [place] 00 [facility] 10*6/uL Hospital Lab (Internal) : [address] ? ? BLD CRITICA Hgb 19.2 g/dL 14.0-18 Final North L HIGH .0 g/dL [facility] ([facility] : [address] ? ? BLD High Hct 52.6 % 41.0-51 Final [place] .0 % [facility] : [address] ? ? BLD - Mcv 90.7 fL 80.0-96 Final [place] .0 fL [facility] : [address] ? ? BLD High Mch 33.1 pg 26.0-32 Final [place] .0 pg [facility] : [address] ? ? BLD High Mchc 36.5 g/dL 31.0-35 Final [place] .0 g/dL [facility] : [address] ? ? BLD - Rdw 12.8 % 11.5-14 Final North .5 % [facility] (Internal) : [address] ? ? BLD - Plt 394 10*3/uL 130-450 Final Nort h 10*3/uL [facility] (Internal) : [address] 02/24/2019 CMP, Serum or S High g/r 197 mg/dL 74-106 Fin al [place] Plasma mg/dL [facility] : [address] ? ? S High Bun 62 mg/dL 9-20 Final [place] mg/dL [facility] (Internal) : [address] ? ? S High Crea 6.40 mg/dL 0.66-1. Final North 25 [facility] mg/dL Hospital Lab (Internal) : [address] ? ? S High Ca 11.6 mg/dL 8.4-10. Final North 2 mg/dL [facility] Lab (Internal) : [address] ? ? S - Na 138 mmol/L 137-145 Final [place] mmol/L [facility] Lab (Internal) : [address] ? ? S - K 4.5 mmol/L 3.5-5.1 Final [place] mmol/L [facility] (Internal) : [address] ? ? S Low Cl 83 mmol/L 98-107 Final [place] mmol/L [facility] (Internal) : [address] ? ? S - Tco2 26.0 mmol/L 22.0-30 Final Nort h .0 [facility] mmol/L Hospital Lab (Internal) : [address] [place] [address] ? ? S High Tp 10.0 g/dL 6.3-8.2 Final [place] g/dL [facility] Lab (Internal) : [address] [place] [address] ? ? S High Alb 5.7 g/dL 3.5-5.0 Final [place] g/dL [facility] Lab (Internal) : [address] [place] [address] ? ? S High Tbil 2.3 mg/dL 0.2-1.3 Final [place] mg/dL [facility] (Internal) : [address] [place] [address] ? ? S - Alp 114 U/L 50-136 Final [place] U/L [facility] (Internal) : [address] ? ? S Low Alt 18 U/L 21-72 Final [place] (Sgpt) U/L [facility] (Internal) : [address] [place] [address] ? ? S - Ast 38 U/L 17-59 Final [place] (Sgot) U/L [facility] Lab (Internal) : [address] [place] t 02/24/2019 Differential, BLD High Polys 78 % 40-75 % Final [facility] Lab (Internal) : [address] ? ? BLD - Bands 0 % 0-5 % Final [facility] Lab (Internal) : [address] ? ? BLD Low Lymphs 10 % 20-50 % Final [facility] Lab (Internal) : [address] ? ? BLD High Attala 12 % 2-10 % Final [facility] Lab (Internal) : [address] ? ? BLD - Eos 0 % 0-6 % Final [facility] Lab (Internal) : [address] ? ? BLD - Baso 0 % 0-1 % Final [facility] Lab (Internal) : [address] ? ? BLD - Atyp 0 % ? Final [facility] Lab (Internal) : [address] ? ? BLD - Plts, adequate adequat Final [place] Est. e [facility] (Internal) : [address] ? ? BLD ABNORMA RBC abnormal normal Final [facility] Lab (Internal) : [address] ? ? BLD - Stomat occasional ? Final [facility] Lab (Internal) : [address] [place] 02/24/2019 Neutrophil BLD - Anc-manua 24.18 10*3/uL ? Final [place] Count, [facility] (Anc), Blood Lab (Internal) : [address] [place] 12/03/2018 CBC W/ Auto BLD High Wbc 10.4 10*3/uL 5.0-10. F inal [place] Diff 0 [place] 10*3/uL Hospital Lab (Internal) : [address] ? ? BLD Low Rbc 4.50 10*6/uL 4.60-6. Final Nor 00 [facility] 10*6/uL Hospital Lab (Internal) : [address] ? ? BLD - Hgb 14.7 g/dL 14.0-18 Final North .0 g/dL [facility] (Internal) : [address] ? ? BLD - Hct 43.5 % 41.0-51 Final [place] .0 % [facility] ([facility] : [address] ? ? BLD High Mcv 96.7 fL 80.0-96 Final North .0 fL [facility] (Internal) : [address] ? ? BLD High Mch 32.7 pg 26.0-32 Final North .0 pg [facility] Lab (Internal) : [address] ? ? BLD - Mchc 33.8 g/dL 31.0-35 Final [place] .0 g/dL [facility] : [address] ? ? BLD - Rdw 12.4 % 11.5-14 Final North .5 % [facility] (Internal) : [address] ? ? BLD - Plt 320 10*3/uL 130-450 Final Nort h 10*3/uL [facility] : [address] ? ? BLD - Anc 7.91 10*3/uL ? Final Nort [facility] ([facility] : [address] ? ? BLD High Neutro 75.9 % 40.0-75 Final North .0 % [facility] (Internal) : [address] ? ? BLD Low Lymph 16.9 % 20.0-50 Final [place] .0 % [facility] ([facility] : [address] ? ? BLD - Attala 6.0 % 2.0-10. Final North 0 % [facility] ([facility] : [address] ? ? BLD Low Eos 0.6 % 1.0-6.0 Final North % [facility] (Internal) : [address] ? ? BLD - Baso 0.2 % 0.0-1.0 Final North % [facility] (Internal) : [address] ? ? BLD - Ig 0.4 % 0.0-0.9 Final [place] % [facility] (Internal) : [address] 12/03/2018 CMP, Serum or S High g/r 138 mg/dL 74-106 Fin al [place] Plasma mg/dL [facility] : [address] ? ? S High Bun 35 mg/dL 9-20 Final [place] mg/dL [facility] (Internal) : [address], [place] ? ? S High Crea 1.30 mg/dL 0.66-1. Final North 25 [facility] mg/dL Hospital Lab (Internal) : [address] ? ? S Low Ca 7.8 mg/dL 8.4-10. Final North 2 mg/dL [facility] (Internal) : [address] ? ? S - Na 137 mmol/L 137-145 Final [place] mmol/L [facility] (Internal) : [address] ? ? S - K 4.6 mmol/L 3.5-5.1 Final [place] mmol/L [facility] (Internal) : [address] ? ? S Low Cl 97 mmol/L 98-107 Final [place] mmol/L [facility] (Internal) : [address] [place] [address] ? ? S - Tco2 30.0 mmol/L 22.0-30 Final Nort h .0 [facility] mmol/L Hospital Lab (Internal) : [address] [place] [address] ? ? S - Tp 7.9 g/dL 6.3-8.2 Final [place] g/dL [facility] (Internal) : [address] [place] [address] ? ? S - Alb 4.8 g/dL 3.5-5.0 Final [place] g/dL [facility] (Internal) : [address] [place] [address] ? ? S High Tbil 1.7 mg/dL 0.2-1.3 Final [place] mg/dL [facility] (Internal) : [address] ? ? S - Alp 89 U/L 50-136 Final [place] U/L [facility] Lab (Internal) : [address] ? ? S - Alt 25 U/L 21-72 Final [place] (Sgpt) U/L [facility] (Internal) : [address] [place] [address] ? ? S - Ast 36 U/L 17-59 Final [place] (Sgot) U/L [facility] (Internal) : [address] [place] t 12/03/2018 Troponin I, S - Trop <0.06 NG/mL 0.00-0. Fi nal [place] Serum or 06 [facility] Plasma NG/mL Hospital Lab (Internal) : [address] [place] [address] 12/02/2018 BMP, Serum or S High g/r 136 mg/dL 74-106 Fin al [place] Plasma mg/dL [facility] (Internal) : [address] ? ? S High Bun 32 mg/dL 9-20 Final [place] mg/dL [facility] (Internal) : [address] ? ? S High Crea 3.00 mg/dL 0.66-1. Final North 25 [facility] mg/dL Hospital Lab (Internal) : [address] ? ? S Low Ca 7.6 mg/dL 8.4-10. Final [place] 2 mg/dL [facility] ([facility] : [address] ? ? S - Na 139 mmol/L 137-145 Final [place] mmol/L [facility] (Internal) : [address] ? ? S - K 5.1 mmol/L 3.5-5.1 Final [place] mmol/L [facility] (Internal) : [address] [place] [address] ? ? S - Cl 99 mmol/L 98-107 Final [place] mmol/L [facility] (Internal) : [address] ? ? S - Tco2 29.0 mmol/L 22.0-30 Final Nort h .0 [facility] mmol/L Hospital Lab (Internal) : [address] 12/01/2018 CBC W/ Auto BLD High Wbc 19.0 10*3/uL 5.0-10. F inal [place] Diff 0 [facility] 10*3/uL Hospital Lab (Internal) : [address] ? ? BLD - Rbc 5.87 10*6/uL 4.60-6. Final Nor th 00 [facility] 10*6/uL Hospital Lab (Internal) : [address] [place] [address] ? ? BLD CRITICA Hgb 19.1 g/dL 14.0-18 Final North L HIGH .0 g/dL [facility] ([facility] : [address] ? ? BLD High Hct 56.0 % 41.0-51 Final [place] .0 % [facility] ([facility] : [address] ? ? BLD - Mcv 95.4 fL 80.0-96 Final [place] .0 fL [facility] ([facility] : [address] ? ? BLD High Mch 32.5 pg 26.0-32 Final North .0 pg [facility] ([facility] : [address] ? ? BLD - Mchc 34.1 g/dL 31.0-35 Final North .0 g/dL [facility] (Internal) : [address] ? ? BLD - Rdw 12.5 % 11.5-14 Final North .5 % [facility] (Internal) : [address] ? ? BLD - Plt 421 10*3/uL 130-450 Final Nort h 10*3/uL [facility] (Internal) : [address] t 12/01/2018 Lipase, Serum S - Lip 149 U/L 23-300 Final North or Plasma U/L [facility] (Internal) : [address] 12/01/2018 CMP, Serum or S High g/r 217 mg/dL 74-106 Fin al [place] Plasma mg/dL [facility] (Internal) : [address] ? ? S High Bun 30 mg/dL 9-20 Final [place] mg/dL [facility] (Internal) : [address] ? ? S High Crea 3.50 mg/dL 0.66-1. Final North 25 [facility] mg/dL Hospital Lab (Internal) : [address] ? ? S - Ca 9.7 mg/dL 8.4-10. Final North 2 mg/dL [facility] (Internal) : [address] ? ? S - Na 138 mmol/L 137-145 Final [place] mmol/L [facility] (Internal) : [address] ? ? S High K 5.4 mmol/L 3.5-5.1 Final [place] mmol/L [facility] (Internal) : [address] ? ? S Low Cl 92 mmol/L 98-107 Final [place] mmol/L [facility] (Internal) : [address] ? ? S - Tco2 22.0 mmol/L 22.0-30 Final Nort h .0 [facility] mmol/L Hospital Lab (Internal) : [address] ? ? S High Tp 10.2 g/dL 6.3-8.2 Final [place] g/dL [facility] (Internal) : [address] ? ? S High Alb 5.8 g/dL 3.5-5.0 Final [place] g/dL [facility] (Internal) : [address] ? ? S High Tbil 1.9 mg/dL 0.2-1.3 Final [place] mg/dL [facility] (Internal) : [address] [place] t ? ? S - Alp 128 U/L 50-136 Final [place] U/L [facility] (Internal) : [address] [place] t ? ? S - Alt 32 U/L 21-72 Final [place] (Sgpt) U/L [facility] (Internal) : [address], [place] ? ? S - Ast 39 U/L 17-59 Final [place] (Sgot) U/L [facility] Lab (Internal) : [address] 12/01/2018 Troponin I, S - Trop <0.06 NG/mL 0.00-0. Fi nal [place] Serum or 06 [facility] Plasma NG/mL Hospital Lab (Internal) : [address], [place] 12/01/2018 Differential, BLD High Polys 90 % 40-75 % Final [place] Manual, Blood Cou ntr Hospital Lab (Internal) : [address] [place] [address] ? ? BLD - Bands 0 % 0-5 % Final [facility] Lab (Internal) : [address] ? ? BLD Low Lymphs 6 % 20-50 % Final [facility] Lab (Internal) : [address] [place] [address] ? ? BLD - Attala 4 % 2-10 % Final [facility] Lab (Internal) : [address] [place] [address] ? ? BLD - Eos 0 % 0-6 % Final [facility] Lab (Internal) : [address] [place] [address] ? ? BLD - Baso 0 % 0-1 % Final [facility] Lab (Internal) : [address] ? ? BLD - Atyp 0 % ? Final [facility] Lab (Internal) : [address] ? ? BLD - Plts, adequate adequat Final [place] Est. e [facility] (Internal) : [address] ? ? BLD - RBC normal normal Final [place] Morphology Countr y Hospital Lab (Internal) : [address] 12/01/2018 Neutrophil BLD - Anc-manua 17.09 10*3/uL ? Final [place] Count, l [facility] (Anc), Blood Lab (Internal) : [address] 11/15/2018 CBC W/ Auto BLD High Wbc 12.4 10*3/uL 5.0-10. F inal [place] Diff 0 [facility] 10*3/uL Hospital Lab (Internal) : [address] ? ? BLD - Rbc 5.16 10*6/uL 4.60-6. Final Nor th 00 [facility] 10*6/uL Hospital Lab (Internal) : [address] ? ? BLD - Hgb 17.0 g/dL 14.0-18 Final North .0 g/dL [facility] (Internal) : [address] ? ? BLD - Hct 50.5 % 41.0-51 Final [place] .0 % [facility] (Internal[facility] : [address] ? ? BLD High Mcv 97.9 fL 80.0-96 Final North .0 fL [facility] (Internal) : [address] ? ? BLD High Mch 32.9 pg 26.0-32 Final North .0 pg [facility] (Internal) : [address] ? ? BLD - Mchc 33.7 g/dL 31.0-35 Final North .0 g/dL [facility] (Internal) : [address] ? ? BLD - Rdw 12.4 % 11.5-14 Final North .5 % [facility] (Internal) : [address] ? ? BLD - Plt 388 10*3/uL 130-450 Final Nort h 10*3/uL [facility] (Internal) : [address] ? ? BLD - Anc 8.08 10*3/uL ? Final Nort h [facility] (Internal) : [address] ? ? BLD - Neutro 64.8 % 40.0-75 Final [place] .0 % [facility] ([facility] : [address] ? ? BLD - Lymph 24.8 % 20.0-50 Final North .0 % [facility] (Internal) : [address] ? ? BLD - Attala 7.2 % 2.0-10. Final North 0 % [facility] (Internal) : [address] [place] [address] ? ? BLD - Eos 2.7 % 1.0-6.0 Final [facility] Lab (Internal) : [address] ? ? BLD - Baso 0.3 % 0.0-1.0 Final [facility] Lab (Internal) : [address] ? ? BLD - Ig 0.2 % 0.0-0.9 Final [facility] Lab (Internal) : [address] [place] 11/15/2018 CMP, Serum or S High g/r 134 mg/dL 74-106 Fin al [place] Plasma mg/dL [facility] (Internal) : [address] ? ? S High Bun 32 mg/dL 9-20 Final [place] mg/dL [facility] (Internal) : [address] ? ? S High Crea 1.40 mg/dL 0.66-1. Final North 25 [place] mg/dL Hospital Lab (Internal) : [address] ? ? S - Ca 9.4 mg/dL 8.4-10. Final North 2 mg/dL [facility] (Internal) : [address] ? ? S - Na 140 mmol/L 137-145 Final [place] mmol/L [facility] (Internal) : [address] ? ? S - K 4.5 mmol/L 3.5-5.1 Final [place] mmol/L [facility] (Internal) : [address] ? ? S Low Cl 95 mmol/L 98-107 Final [place] mmol/L [facility] (Internal) : [address] ? ? S - Tco2 29.0 mmol/L 22.0-30 Final Nort h .0 [facility] mmol/L Hospital Lab (Internal) : [address] ? ? S High Tp 9.4 g/dL 6.3-8.2 Final [place] g/dL [facility] (Internal) : [address] ? ? S High Alb 5.5 g/dL 3.5-5.0 Final [place] g/dL [facility] (Internal) : [address] ? ? S - Tbil 1.1 mg/dL 0.2-1.3 Final [place] mg/dL [facility] (Internal) : [address] ? ? S - Alp 96 U/L 50-136 Final [place] U/L [facility] (Internal) : [address] ? ? S - Alt 24 U/L 21-72 Final [place] (Sgpt) U/L [facility] Lab (Internal) : [address] ? ? S - Ast 33 U/L 17-59 Final [place] (Sgot) U/L [facility] Lab (Internal) : [address] 11/15/2018 Lipase, Serum S - Lip 149 U/L 23-300 Final [place] or Plasma U/L [facility] Lab (Internal) : [address] 11/15/2018 Urinalysis, UR - UA-color dark yellow pale Final [place] Dipstick, yellow [facility] Lab (Internal) : [address] ? ? UR ABNORMA UA-appear hazy clear Final [facility] Lab (Internal) : [address] ? ? UR - UA-spec >=1.030 1.003-1 Final [place] Grav .035 [facility] Lab (Internal) : [address] ? ? UR - UA-pH 5.5 [pH] 4.6-8.0 Final [place] [pH] [facility] Lab (Internal) : [address] ? ? UR - UA-leuk negative negativ Final [facility] Lab (Internal) : [address] ? ? UR - UA-nitrit negative negativ Final [facility] Lab (Internal) : [address] ? ? UR ABNORMA UA-prot trace negativ Final [facility] Lab (Internal) : [address] ? ? UR - UA-gluc negative negativ Final [facility] Lab (Internal) : [address] ? ? UR - UA-ketone negative negativ Final [facility] Lab (Internal) : [address] ? ? UR - UA-urobil normal normal Final [facility] Lab (Internal) : [address] ? ? UR ABNORMA UA-bili small negativ Final [facility] Lab (Internal) : [address] ? ? UR - UA-blood negative negativ Final [facility] Lab (Internal) : [address] 11/15/2018 Urinalysis, UR - UA-WBC 0-3 [hpf] 0-3 Veronique l [place] Microscopic [hpf] Count [facility] Lab (Internal) : [address] ? ? UR - UA-RBC 0-2 [hpf] 0-2 Final [place] [hpf] [facility] Lab (Internal) : [address] ? ? UR ABNORMA UA-bacter moderate none Final [place] [hpf] seen [facility] Hospital Lab (Internal) : [address] ? ? UR ABNORMA UA-epithe few [hpf] none Final No rth L lial seen [facility] [[facility] Lab (Internal) : [address] ? ? UR ABNORMA UA-mucus moderate none Final Nort h L [hpf] seen [facility] [[facility] Hospital Lab (Internal) : [address] ? ? UR - Hyaline C few [hpf] ? Final [facility] Lab (Internal) : [address] 11/15/2018 Culture UR - Final microbiology ? Final [place] ([place] results Country Count), [facility] Lab (Internal) : [address] 01/26/2018 CBC W/ Auto BLD High Wbc 12.2 10*3/uL 5.0-10. F inal [place] Diff 0 [place] 10*3/uL Hospital Lab (Internal) : [address] ? ? BLD Low Rbc 3.77 10*6/uL 4.60-6. Final [place] th 00 [place] 10*6/uL Hospital Lab (Internal) : [address] ? ? BLD Low Hgb 12.1 g/dL 14.0-18 Final [place] .0 g/dL [facility] (Internal) : [address] ? ? BLD Low Hct 35.4 % 41.0-51 Final [place] .0 % [facility] (Internal) : [address] ? ? BLD - Mcv 93.9 fL 80.0-96 Final [place] .0 fL [facility] (Internal[facility] : [address] [place] ? ? BLD High Mch 32.1 pg 26.0-32 Final [place] .0 pg [facility] (Internal) : [address] [place] ? ? BLD - Mchc 34.2 g/dL 31.0-35 Final [place] .0 g/dL [facility] (Internal) : [address] ? ? BLD - Rdw 14.0 % 11.5-14 Final [place] .5 % [facility] (Internal) : [address] ? ? BLD - Plt 164 10*3/uL 130-450 Final Nort [place] 10*3/uL [facility] (Internal) : [address] ? ? BLD - Anc 8.69 10*3/uL ? Final [facility] (Internal) : [address] ? ? BLD - Neutro 71.4 % 40.0-75 Final [place] .0 % [facility] (Internal) : [address] ? ? BLD Low Lymph 18.8 % 20.0-50 Final [place] .0 % [facility] (Internal) : [address] ? ? BLD - [place] 9.2 % 2.0-10. Final [place] 0 % [facility] (Internal) : [address] ? ? BLD Low Eos 0.1 % 1.0-6.0 Final North % [facility] (Internal) : [address] ? ? BLD - Baso 0.2 % 0.0-1.0 Final North % [facility] (Internal) : [address] ? ? BLD - Ig 0.3 % 0.0-0.9 Final North % [facility] Lab (Internal) : [address] [place] 01/26/2018 BMP, Serum or S - g/r 98 mg/dL 74-106 Veronique l [place] Plasma mg/dL [facility] Lab (Internal) : [address] ? ? S High Bun 38 mg/dL 9-20 Final [place] mg/dL [facility] Hospital Lab (Internal) : [address] ? ? S High Crea 1.60 mg/dL 0.66-1. Final North 25 Country mg/dL Hospital Lab (Internal) : [address] ? ? S CRITICA Ca 6.5 mg/dL 8.4-10. Final North L LOW 2 mg/dL [facility] Hospital Lab (Internal) : [address] ? ? S - Na 138 mmol/L 137-145 Final [place] mmol/L [facility] Lab (Internal) : [address] ? ? S - K 4.4 mmol/L 3.5-5.1 Final [place] mmol/L [facility] Hospital Lab (Internal) : [address] ? ? S - Cl 106 mmol/L 98-107 Final [place] mmol/L [facility] Hospital Lab (Internal) : [address] ? ? S - Tco2 27.0 mmol/L 22.0-30 Final Nort h .0 Country mmol/L Hospital Lab (Internal) : [address] 01/26/2018 Calcium, BLD Low Ionized 0.90 mmol/L 1.12-1. Fin al North Ionized, QN, Ca 32 Coun try Blood mmol/L Hospital Lab (Internal) : [address] 01/26/2018 Hepatic S - Tbil 1.3 mg/dL 0.2-1.3 Final N orth Function mg/dL Country Panel, Serum Hosp ital Lab (Internal) : [address] ? ? S - Dbil 0.1 mg/dL 0.0-0.3 Final [place] mg/dL [facility] Hospital Lab (Internal) : [address] ? ? S - Alp 66 U/L 50-136 Final [place] U/L [facility] Hospital Lab (Internal) : [address] ? ? S - Alt 31 U/L 21-72 Final [place] (Sgpt) U/L [facility] Hospital Lab (Internal) : [address] ? ? S - Ast 42 U/L 17-59 Final [place] (Sgot) U/L [facility] Hospital Lab (Internal) : [address] ? ? S - Ggt 24 U/L 15-73 Final [place] U/L [facility] Hospital Lab (Internal) : [address] ? ? S Low Tp 5.8 g/dL 6.3-8.2 Final [place] g/dL [facility] Hospital Lab (Internal) : [address] ? ? S Low Alb 3.4 g/dL 3.5-5.0 Final [place] g/dL [facility] Hospital Lab (Internal) : [address] 01/25/2018 CBC W/ Auto BLD High Wbc 23.5 10*3/uL 5.0-10. F inal North Diff 0 Country 10*3/uL Hospital Lab (Internal) : [address] ? ? BLD Low Rbc 4.38 10*6/uL 4.60-6. Final Nor th 00 Country 10*6/uL Hospital Lab (Internal) : [address] ? ? BLD - Hgb 14.1 g/dL 14.0-18 Final North .0 g/dL [facility] Hospital Lab (Internal) : [address] ? ? BLD Low Hct 40.6 % 41.0-51 Final North .0 % [facility] Hospital Lab (Internal) : [address] ? ? BLD - Mcv 92.7 fL 80.0-96 Final North .0 fL [facility] Hospital Lab (Internal) : [address] ? ? BLD High Mch 32.2 pg 26.0-32 Final North .0 pg [facility] Hospital Lab (Internal) : [address] ? ? BLD - Mchc 34.7 g/dL 31.0-35 Final North .0 g/dL [facility] Hospital Lab (Internal) : [address] ? ? BLD - Rdw 14.1 % 11.5-14 Final North .5 % [facility] Hospital Lab (Internal) : [address] ? ? BLD - Plt 225 10*3/uL 130-450 Final Nort h 10*3/uL [facility] Lab (Internal) : [address] [place] 01/25/2018 BMP, Serum or S High g/r 129 mg/dL 74-106 Fin al North Plasma mg/dL [facility] Lab (Internal) : [address] ? ? S High Bun 64 mg/dL 9-20 Final [place] mg/dL [facility] Lab (Internal) : [address] ? ? S High Crea 4.60 mg/dL 0.66-1. Final North 25 Country mg/dL Hospital Lab (Internal) : [address] ? ? S CRITICA Ca 6.5 mg/dL 8.4-10. Final [place] L LOW 2 mg/dL [facility] Lab (Internal) : [address] ? ? S Low Na 132 mmol/L 137-145 Final [place] mmol/L [facility] Lab (Internal) : [address] ? ? S - K 4.6 mmol/L 3.5-5.1 Final [place] mmol/L [facility] Lab (Internal) : [address] ? ? S Low Cl 95 mmol/L 98-107 Final [place] mmol/L [facility] Lab (Internal) : [address] ? ? S - Tco2 26.0 mmol/L 22.0-30 Final [facility] h .0 Country mmol/L Hospital Lab (Internal) : [address] [place] 01/25/2018 Differential, BLD High Polys 82 % 40-75 % Final [facility] Blood Cou [facility] Lab (Internal) : [address] ? ? BLD - Bands 0 % 0-5 % Final [facility] Lab (Internal) : [address] ? ? BLD Low Lymphs 15 % 20-50 % Final [facility] Lab (Internal) : [address] ? ? BLD - Attala 3 % 2-10 % Final [facility] Hospital Lab (Internal) : [address] ? ? BLD - Eos 0 % 0-6 % Final [facility] Hospital Lab (Internal) : [address] ? ? BLD - Baso 0 % 0-1 % Final [facility] Hospital Lab (Internal) : [address] ? ? BLD - Atyp 0 % ? Final [facility] Hospital Lab (Internal) : [address] ? ? BLD - Plts, adequate adequat Final [place] Est. e [facility] Hospital Lab (Internal) : [address] ? ? BLD - RBC normal normal Final [facility] Hospital Lab (Internal) : [address] 01/25/2018 Neutrophil BLD - Anc-manua 19.27 10*3/uL ? Final [place] Count, l [facility] (Anc), Blood Lab (Internal) : [address] 01/24/2018 CBC W/ Auto BLD CRITICA Wbc 27.8 10*3/uL 5.0-10. Final [place] Diff L HIGH 0 Country 10*3/uL Hospital Lab (Internal) : [address] ? ? BLD High Rbc 6.15 10*6/uL 4.60-6. Final Nor th 00 Country 10*6/uL Hospital Lab (Internal) : [address] ? ? BLD CRITICA Hgb 19.8 g/dL 14.0-18 Final [place] L HIGH .0 g/dL [facility] Hospital Lab (Internal) : [address] ? ? BLD High Hct 57.2 % 41.0-51 Final North .0 % [facility] Hospital Lab (Internal) : [address] ? ? BLD - Mcv 93.0 fL 80.0-96 Final North .0 fL [facility] Hospital Lab (Internal) : [address] ? ? BLD High Mch 32.2 pg 26.0-32 Final North .0 pg [facility] Hospital Lab (Internal) : [address] ? ? BLD - Mchc 34.6 g/dL 31.0-35 Final North .0 g/dL [facility] Hospital Lab (Internal) : [address] ? ? BLD - Rdw 14.0 % 11.5-14 Final North .5 % [facility] Hospital Lab (Internal) : [address] ? ? BLD - Plt 390 10*3/uL 130-450 Final Nort h 10*3/uL [facility] Hospital Lab (Internal) : [address] 01/24/2018 CMP, Serum or S High g/r 369 mg/dL 74-106 Fin al North Plasma mg/dL [facility] Hospital Lab (Internal) : [address] ? ? S High Bun 58 mg/dL 9-20 Final [place] mg/dL [facility] Hospital Lab (Internal) : [address] ? ? S High Crea 6.90 mg/dL 0.66-1. Final North 25 Country mg/dL Hospital Lab (Internal) : [address] ? ? S - Ca 10.0 mg/dL 8.4-10. Final North 2 mg/dL [facility] Hospital Lab (Internal) : [address] ? ? S - Na 139 mmol/L 137-145 Final [place] mmol/L [facility] Hospital Lab (Internal) : [address] ? ? S - K 4.7 mmol/L 3.5-5.1 Final [place] mmol/L [facility] Hospital Lab (Internal) : [address] ? ? S Low Cl 77 mmol/L 98-107 Final [place] mmol/L [facility] Lab (Internal) : [address] ? ? S Low Tco2 20.0 mmol/L 22.0-30 Final Nort h .0 Country mmol/L Hospital Lab (Internal) : [address] ? ? S High Tp 10.0 g/dL 6.3-8.2 Final [place] g/dL [facility] Lab (Internal) : [address] ? ? S High Alb 6.0 g/dL 3.5-5.0 Final [place] g/dL [facility] Lab (Internal) : [address] ? ? S - Tbil 1.0 mg/dL 0.2-1.3 Final [place] mg/dL [facility] Hospital Lab (Internal) : [address] ? ? S High Alp 137 U/L 50-136 Final [place] U/L [facility] Lab (Internal) : [address] ? ? S - Alt 26 U/L 21-72 Final [place] (Sgpt) U/L [facility] Lab (Internal) : [address] ? ? S - Ast 50 U/L 17-59 Final [place] (Sgot) U/L [facility] Hospital Lab (Internal) : [address] [place] 01/24/2018 Differential, BLD High Polys 85 % 40-75 % Final [facility], Blood Cou [facility] Hospital Lab (Internal) : [address] ? ? BLD - Bands 0 % 0-5 % Final [facility] Hospital Lab (Internal) : [address] ? ? BLD Low Lymphs 8 % 20-50 % Final [facility] Hospital Lab (Internal) : [address] ? ? BLD - Attala 7 % 2-10 % Final [facility] Hospital Lab (Internal) : [address] ? ? BLD - Eos 0 % 0-6 % Final [facility] Lab (Internal) : [address] ? ? BLD - Baso 0 % 0-1 % Final [facility] Lab (Internal) : [address] ? ? BLD - Atyp 0 % ? Final [facility] Lab (Internal) : [address] ? ? BLD - Plts, adequate adequat Final [place] Est. e [facility] Hospital Lab (Internal) : [address] ? ? BLD - RBC normal normal Final [facility] Hospital Lab (Internal) : [address] [place] 01/24/2018 Neutrophil BLD - Anc-manua 23.64 10*3/uL ? [facility] [place] [facility] Blood Lab (Internal) : [address] [place] 01/24/2018 Urinalysis, UR - UA-color yellow pale Final [place] Dipstick, yellow [place] Reflex Micro Hosp ital Lab (Internal) : [address] ? ? UR ABNORMA UA-appear cloudy clear Final [facility] Lab (Internal) : [address] ? ? UR - UA-spec >=1.030 1.003-1 Final [place] Grav .035 [facility] Lab (Internal) : [address] ? ? UR - UA-pH 5.0 [pH] 4.6-8.0 Final [place] [pH] [facility] Lab (Internal) : [address] ? ? UR - UA-leuk negative negativ Final [facility] Lab (Internal) : [address] ? ? UR - UA-nitrit negative negativ Final [facility] Lab (Internal) : [address] ? ? UR ABNORMA UA-prot 2+ negativ Final [facility] Lab (Internal) : [address] ? ? UR - UA-gluc negative negativ Final [facility] Lab (Internal) : [address] ? ? UR ABNORMA UA-ketone 1+ negativ Final [facility] Lab (Internal) : [address] ? ? UR - UA-urobil normal normal Final [facility] Lab (Internal) : [address] ? ? UR - UA-bili negative negativ Final [facility] Lab (Internal) : [address] ? ? UR ABNORMA UA-blood large negativ Final [facility] Lab (Internal) : [address] 01/24/2018 Urinalysis, UR - UA-WBC 0-3 [hpf] 0-3 [facility] Microscopic [hpf] Count Hospital Lab (Internal) : [address] ? ? UR ABNORMA UA-RBC 3-5 [hpf] 0-2 [facility] [hpf] [facility] Lab (Internal) : [address] ? ? UR ABNORMA UA-bacter many [hpf] none Final N orth L ia seen [facility] [hpf] Hospital Lab (Internal) : [address] ? ? UR - UA-epithe rare [hpf] none Final No rth lial seen [facility] [hpf] Hospital Lab (Internal) : [address] ? ? UR ABNORMA UA-mucus many [hpf] none Final No rth L seen Country [hpf] Hospital Lab (Internal) : [address] ? ? UR - Hyaline C moderate ? Final Nort h [hpf] [facility] Hospital Lab (Internal) : [address] 01/24/2018 Drug Screen, UR ABNORMA Thc positive neg (50 Fin al North Urine L NG/mL NG/mL) Country NG/mL Hospital Lab (Internal) : [address] ? ? UR - Pcp negative neg (25 Final North NG/mL) [facility] Hospital Lab (Internal) : [address] ? ? UR - Gena negative neg Final North (150 Country NG/mL) Hospital Lab (Internal) : [address] ? ? UR - Met negative neg Final North (500 Country NG/mL) Hospital Lab (Internal) : [address] ? ? UR ABNORMA Opi positive neg Final North L (100 Country NG/mL) Hospital Lab (Internal) : [address] ? ? UR - Amp negative neg Final North (500 Country NG/mL) Hospital Lab (Internal) : [address] ? ? UR - Bzo negative neg Final North (150 Country NG/mL) Hospital Lab (Internal) : [address] ? ? UR - Tca negative neg Final North (300 Country NG/mL) Hospital Lab (Internal) : [address] ? ? UR - Mtd negative neg Final North (200 Country NG/mL) Hospital Lab (Internal) : [address] ? ? UR - Bar negative neg Final North (200 Country NG/mL) Hospital Lab (Internal) : [address] ? ? UR - Oxy negative neg Final North (100 Country NG/mL) Hospital Lab (Internal) : [address] ? ? UR - Ppx negative neg Final North (300 Country NG/mL) Hospital Lab (Internal) : [address] ? ? UR - Bup negative neg (10 Final North NG/mL) [facility] Hospital Lab (Internal) : [address] 01/24/2018 Culture UR - Final microbiology ? Final North ([place] results Country Count), Urine Hos pital Lab (Internal) : [address] 12/15/2017 Drug Screen, UR ABNORMA Thc positive neg (50 Fin al [place] Urine L NG/mL NG/mL) Country NG/mL Hospital Lab (Internal) : [address] ? ? UR ? Pcp negative neg (25 Final [place] NG/mL) [facility] Hospital Lab (Internal) : [address] ? ? UR ? Gena negative neg Final North (150 [place] NG/mL) Hospital Lab (Internal) : [address] ? ? UR ? Met negative neg Final [place] (500 [place] NG/mL) Hospital Lab (Internal) : [address] ? ? UR ABNORMA Opi positive neg Final North L (100 [place] NG/mL) Hospital Lab (Internal) : [address] ? ? UR ? Amp negative neg Final North (500 [place] NG/mL) Hospital Lab (Internal) : [address] [place] [address] ? ? UR ? Bzo negative neg Final North (150 [place] NG/mL) Hospital Lab (Internal) : [address] ? ? UR ? Tca negative neg Final North (300 [place] NG/mL) Hospital Lab (Internal) : [address] [place] ? ? UR ? Mtd negative neg Final North (200 [place] NG/mL) Hospital Lab (Internal) : [address] ? ? UR ? Bar negative neg Final North (200 [place] NG/mL) Hospital Lab (Internal) : [address] ? ? UR ? Oxy negative neg Final North (100 [place] NG/mL) Hospital Lab (Internal) : [address] ? ? UR ? Ppx negative neg Final North (300 [place] NG/mL) Hospital Lab (Internal) : [address] ? ? UR ? Bup negative neg (10 Final [place] NG/mL) [facility] Hospital Lab (Internal) : [address] 12/15/2017 Urinalysis, UR ? UA-color pale yellow pale Final North Dipstick, yellow [place] Reflex Micro Hosp ital Lab (Internal) : [address] ? ? UR ? UA-appear clear clear Final [facility] Lab (Internal) : [address] ? ? UR ? UA-spec 1.015 1.003-1 Final [place] Grav .035 [facility] Lab (Internal) : [address] ? ? UR ? UA-pH 7.0 [pH] 4.6-8.0 Final [place] [pH] [facility] Lab (Internal) : [address] ? ? UR ? UA-leuk negative negativ Final [facility] Lab (Internal) : [address] ? ? UR ? UA-nitrit negative negativ Final [facility] Lab (Internal) : [address] ? ? UR ? UA-prot negative negativ Final [facility] Lab (Internal) : [address] ? ? UR ? UA-gluc negative negativ Final [facility] Lab (Internal) : [address] ? ? UR ABNORMA UA-ketone trace negativ Final [facility] Lab (Internal) : [address] ? ? UR ? UA-urobil normal normal Final [facility] Lab (Internal) : [address] ? ? UR ? UA-bili negative negativ Final [facility] Lab (Internal) : [address] ? ? UR ? UA-blood negative negativ Final [facility] Lab (Internal) : [address] 12/15/2017 Lipase, Serum S ? Lip 186 U/L 23-300 Final [place] or Plasma U/L [facility] Lab (Internal) : [address] 12/15/2017 CMP, Serum or S High g/r 132 mg/dL 74-106 Fin al [place] Plasma mg/dL [facility] Lab (Internal) : [address] ? ? S ? Bun 10 mg/dL 9-20 Final [place] mg/dL [facility] Lab (Internal) : [address] ? ? S ? Crea 0.90 mg/dL 0.66-1. Final North 25 Country mg/dL Hospital Lab (Internal) : [address] ? ? S ? Ca 8.8 mg/dL 8.4-10. Final North 2 mg/dL [facility] Hospital Lab (Internal) : [address] ? ? S ? Na 140 mmol/L 137-145 Final [place] mmol/L [facility] Hospital Lab (Internal) : [address] ? ? S ? K 4.6 mmol/L 3.5-5.1 Final [place] mmol/L [facility] Hospital Lab (Internal) : [address] ? ? S ? Cl 100 mmol/L 98-107 Final [place] mmol/L [facility] Hospital Lab (Internal) : [address] ? ? S ? Tco2 27.0 mmol/L 22.0-30 Final Nort h .0 [facility] mmol/L Hospital Lab (Internal) : [address] ? ? S ? Tp 7.4 g/dL 6.3-8.2 Final [place] g/dL [facility] Hospital Lab (Internal) : [address] ? ? S ? Alb 4.8 g/dL 3.5-5.0 Final [place] g/dL [facility] Hospital Lab (Internal) : [address] ? ? S ? Tbil 1.1 mg/dL 0.2-1.3 Final [place] mg/dL [facility] Hospital Lab (Internal) : [address] ? ? S ? Alp 82 U/L 50-136 Final [place] U/L [facility] Hospital Lab (Internal) : [address] ? ? S ? Alt 27 U/L 21-72 Final [place] (Sgpt) U/L [facility] Lab (Internal) : [address] ? ? S ? Ast 28 U/L 17-59 Final [place] (Sgot) U/L [facility] Hospital Lab (Internal) : [address] 12/15/2017 CBC W/ Auto BLD High Wbc 11.9 10*3/uL 5.0-10. F inal [place] Diff 0 Country 10*3/uL Hospital Lab (Internal) : [address] ? ? BLD ? Rbc 5.22 10*6/uL 4.60-6. Final Nor th 00 Country 10*6/uL Hospital Lab (Internal) : [address] [place] ? ? BLD ? Hgb 16.7 g/dL 14.0-18 Final North .0 g/dL [facility] Hospital Lab (Internal) : [address], [place] ? ? BLD ? Hct 50.0 % 41.0-51 Final North .0 % [facility] Hospital Lab (Internal) : [address], [place] ? ? BLD ? Mcv 95.8 fL 80.0-96 Final North .0 fL [facility] Hospital Lab (Internal) : [address], [place] ? ? BLD ? Mch 32.0 pg 26.0-32 Final North .0 pg [facility] Hospital Lab (Internal) : [address], [place] ? ? BLD ? Mchc 33.4 g/dL 31.0-35 Final North .0 g/dL [facility] Lab (Internal) : [address], [place] ? ? BLD ? Rdw 13.3 % 11.5-14 Final North .5 % [facility] Hospital Lab (Internal) : [address], [place] ? ? BLD ? Plt 283 10*3/uL 130-450 Final Nort h 10*3/uL [facility] Lab (Internal) : [address], [place] ? ? BLD ? Anc 9.00 10*3/uL ? Final Nort h [facility] Hospital Lab (Internal) : [address], [place] ? ? BLD High Neutro 75.5 % 40.0-75 Final North .0 % [facility] Hospital Lab (Internal) : [address] [place] ? ? BLD Low Lymph 16.4 % 20.0-50 Final North .0 % [facility] Hospital Lab (Internal) : [address] [place] ? ? BLD ? Attala 6.7 % 2.0-10. Final North 0 % [facility] Hospital Lab (Internal) : [address] [place] ? ? BLD Low Eos 0.8 % 1.0-6.0 Final North % [facility] Hospital Lab (Internal) : [address] [place] ? ? BLD ? Baso 0.3 % 0.0-1.0 Final North % [facility] Hospital Lab (Internal) : [address] ? ? BLD ? Ig 0.3 % 0.0-0.9 Final [facility] Lab (Internal) : [address] 12/12/2017 Neutrophil BLD ? Anc-manua 8.25 10*3/uL ? Final [place] Count, l [facility] (Anc), Blood Lab (Internal) : [address] 12/12/2017 Differential, BLD High Polys 81 % 40-75 % Final [facility], Blood Cou ntry Hospital Lab (Internal) : [address] ? ? BLD ? Bands 0 % 0-5 % Final [facility] Lab (Internal) : [address] ? ? BLD Low Lymphs 13 % 20-50 % Final [facility] Lab (Internal) : [address] ? ? BLD ? Attala 6 % 2-10 % Final [facility] Hospital Lab (Internal) : [address] ? ? BLD ? Eos 0 % 0-6 % Final [facility] Lab (Internal) : [address] ? ? BLD ? Baso 0 % 0-1 % Final [facility] Lab (Internal) : [address] ? ? BLD ? Atyp 0 % ? Final [facility] Lab (Internal) : [address] ? ? BLD ? Plts, adequate adequat Final [place] Est. e [facility] Hospital Lab (Internal) : [address] ? ? BLD ? RBC normal normal Final [facility] Hospital Lab (Internal) : [address] 12/12/2017 Troponin I, S ? Trop <0.06 NG/mL 0.00-0. Fi nal [place] Serum or 06 [place] Plasma NG/mL Hospital Lab (Internal) : [address] 12/12/2017 CBC W/ Auto BLD High Wbc 10.2 10*3/uL 5.0-10. F inal [place] Diff 0 Country 10*3/uL Hospital Lab (Internal) : [address] ? ? BLD ? Rbc 5.32 10*6/uL 4.60-6. Final Nor th 00 Country 10*6/uL Hospital Lab (Internal) : [address] ? ? BLD ? Hgb 17.0 g/dL 14.0-18 Final North .0 g/dL [facility] Hospital Lab (Internal) : [address] ? ? BLD ? Hct 49.7 % 41.0-51 Final North .0 % [facility] Hospital Lab (Internal) : [address] ? ? BLD ? Mcv 93.4 fL 80.0-96 Final North .0 fL [facility] Lab (Internal) : [address] ? ? BLD ? Mch 32.0 pg 26.0-32 Final North .0 pg [facility] Hospital Lab (Internal) : [address] ? ? BLD ? Mchc 34.2 g/dL 31.0-35 Final North .0 g/dL [facility] Lab (Internal) : [address] ? ? BLD ? Rdw 13.2 % 11.5-14 Final North .5 % [facility] Lab (Internal) : [address] ? ? BLD ? Plt 308 10*3/uL 130-450 Final Nort h 10*3/uL [facility] Hospital Lab (Internal) : [address] 12/12/2017 CMP, Serum or S High g/r 132 mg/dL 74-106 Fin al [place] Plasma mg/dL [facility] Hospital Lab (Internal) : [address] ? ? S High Bun 25 mg/dL 9-20 Final [place] mg/dL [facility] Lab (Internal) : [address] ? ? S ? Crea 1.20 mg/dL 0.66-1. Final North 25 Country mg/dL Hospital Lab (Internal) : [address] ? ? S ? Ca 8.7 mg/dL 8.4-10. Final North 2 mg/dL [facility] Hospital Lab (Internal) : [address] ? ? S ? Na 138 mmol/L 137-145 Final [place] mmol/L [facility] Hospital Lab (Internal) : [address] ? ? S ? K 4.2 mmol/L 3.5-5.1 Final [place] mmol/L [facility] Hospital Lab (Internal) : [address] ? ? S Low Cl 95 mmol/L 98-107 Final [place] mmol/L [facility] Lab (Internal) : [address] ? ? S ? Tco2 28.0 mmol/L 22.0-30 Final Nort h .0 [facility] mmol/L Hospital Lab (Internal) : [address] ? ? S High Tp 8.7 g/dL 6.3-8.2 Final [place] g/dL [facility] Hospital Lab (Internal) : [address] ? ? S High Alb 5.3 g/dL 3.5-5.0 Final [place] g/dL [facility] [facility] (Internal) : [address] ? ? S High Tbil 1.6 mg/dL 0.2-1.3 Final [place] mg/dL [facility] Hospital Lab (Internal) : [address] t ? ? S ? Alp 107 U/L 50-136 Final [place] U/L [facility] Lab (Internal) : [address] t ? ? S ? Alt 35 U/L 21-72 Final [place] (Sgpt) U/L [facility] Lab (Internal) : [address] t ? ? S ? Ast 34 U/L 17-59 Final [place] (Sgot) U/L [facility] Lab (Internal) : [address] 11/17/2017 Neutrophil BLD ? Anc-manua 12.19 10*3/uL ? Final [place] Count, l [facility] ([facility] Blood Lab (Internal) : [address] 11/17/2017 Differential, BLD High Polys 93 % 40-75 % Final [facility], Blood Cou [facility] Hospital Lab (Internal) : [address] ? ? BLD ? Bands 0 % 0-5 % Final [facility] Lab (Internal) : [address] ? ? BLD Low Lymphs 4 % 20-50 % Final [facility] Lab (Internal) : [address] ? ? BLD ? Attala 3 % 2-10 % Final [facility] Lab (Internal) : [address], [place] ? ? BLD ? Eos 0 % 0-6 % Final [facility] Hospital Lab (Internal) : [address] ? ? BLD ? Baso 0 % 0-1 % Final [facility] Hospital Lab (Internal) : [address] ? ? BLD ? Atyp 0 % ? Final [facility] Hospital Lab (Internal) : [address] ? ? BLD ? Plts, adequate adequat Final [place] Est. e [facility] Lab (Internal) : [address] ? ? BLD ? RBC normal normal Final [place] [facility] Hospital Lab (Internal) : [address] 11/17/2017 CBC W/ Auto BLD High Wbc 13.1 10*3/uL 5.0-10. F inal [place] Diff 0 [place] 10*3/uL Hospital Lab (Internal) : [address] ? ? BLD Low Rbc 4.54 10*6/uL 4.60-6. Final Nor th 00 [place] 10*6/uL Hospital Lab (Internal) : [address] ? ? BLD ? Hgb 14.5 g/dL 14.0-18 Final [place] .0 g/dL [facility] Lab (Internal) : [address] ? ? BLD ? Hct 43.3 % 41.0-51 Final [place] .0 % [facility] Lab (Internal) : [address] ? ? BLD ? Mcv 95.4 fL 80.0-96 Final [place] .0 fL [facility] Lab (Internal) : [address] [place] ? ? BLD ? Mch 31.9 pg 26.0-32 Final [place] .0 pg [facility] Lab (Internal) : [address] [place] ? ? BLD ? Mchc 33.5 g/dL 31.0-35 Final [place] .0 g/dL [facility] Lab (Internal) : [address] [place] ? ? BLD ? Rdw 13.2 % 11.5-14 Final [place] .5 % [facility] Lab (Internal) : [address] [place] ? ? BLD ? Plt 324 10*3/uL 130-450 Final Nort h 10*3/uL [facility] Lab (Internal) : [address] 11/17/2017 BMP, Serum or S High g/r 186 mg/dL 74-106 Fin al [place] Plasma mg/dL [facility] Lab (Internal) : [address] t ? ? S ? Bun 12 mg/dL 9-20 Final [place] mg/dL [facility] Lab (Internal) : [address] ? ? S ? Crea 0.90 mg/dL 0.66-1. Final [place] 25 [place] mg/dL Hospital Lab (Internal) : [address] ? ? S Low Ca 8.2 mg/dL 8.4-10. Final [place] 2 mg/dL [facility] Hospital Lab (Internal) : [address] t ? ? S ? Na 145 mmol/L 137-145 Final [place] mmol/L [facility] Lab (Internal) : [address] ? ? S ? K 4.2 mmol/L 3.5-5.1 Final [place] mmol/L [facility] Lab (Internal) : [address] ? ? S ? Cl 99 mmol/L 98-107 Final [place] mmol/L [facility] Lab (Internal) : [address] ? ? S ? Tco2 29.0 mmol/L 22.0-30 Final Nort h .0 Country mmol/L Hospital Lab (Internal) : [address] 09/28/2017 Venipuncture BLD ? Venpn* ? ? Final [facility] Hospital Lab (Internal) : [address] 09/28/2017 Neutrophil BLD ? Anc-manua 4.48 10*3/uL ? Final [place] Count, l [facility] (Anc), Blood Lab (Internal) : [address] 09/28/2017 Differential, BLD ? Polys 60 % 40-75 % Final [facility], Blood Cou [facility] Hospital Lab (Internal) : [address] ? ? BLD ? Bands 0 % 0-5 % Final [facility] Hospital Lab (Internal) : [address] ? ? BLD ? Lymphs 26 % 20-50 % Final [facility] Hospital Lab (Internal) : [address] [place] ? ? BLD High Attala 12 % 2-10 % Final [facility] Hospital Lab (Internal) : [address] ? ? BLD ? Eos 2 % 0-6 % Final [facility] Hospital Lab (Internal) : [address] ? ? BLD ? Baso 0 % 0-1 % Final [facility] Hospital Lab (Internal) : [address] [place] ? ? BLD ? Atyp 0 % ? Final [facility] Lab (Internal) : [address] ? ? BLD ? Plts, adequate adequat Final [place] Est. e [facility] Lab (Internal) : [address] [place] [address] ? ? BLD ? RBC normal normal Final [facility] Hospital Lab (Internal) : [address] 09/28/2017 CBC W/ Auto BLD ? Wbc 7.5 10*3/uL 5.0-10. Fi nal [place] Diff 0 [place] 10*3/uL Hospital Lab (Internal) : [address] ? ? BLD Low Rbc 3.37 10*6/uL 4.60-6. Final [place] 00 [place] 10*6/uL Hospital Lab (Internal) : [address] ? ? BLD Low Hgb 11.0 g/dL 14.0-18 Final [place] .0 g/dL [facility] Lab (Internal) : [address] [place] ? ? BLD Low Hct 32.5 % 41.0-51 Final [place] .0 % [facility] Lab (Internal) : [address] ? ? BLD High Mcv 96.4 fL 80.0-96 Final [place] .0 fL [facility] Lab (Internal) : [address] ? ? BLD High Mch 32.6 pg 26.0-32 Final [place] .0 pg [facility] Lab (Internal) : [address] ? ? BLD ? Mchc 33.8 g/dL 31.0-35 Final [place] .0 g/dL [facility] Lab (Internal) : [address] ? ? BLD ? Rdw 11.7 % 11.5-14 Final [place] .5 % [facility] Lab (Internal) : [address], [place] ? ? BLD ? Plt 285 10*3/uL 130-450 Final Nort h 10*3/uL [facility] Lab (Internal) : [address] [place] 09/28/2017 BMP, Serum or S ? g/r 95 mg/dL 74-106 Veronique l [place] Plasma mg/dL [facility] Lab (Internal) : [address] ? ? S High Bun 21 mg/dL 9-20 Final [place] mg/dL [facility] Lab (Internal) : [address] ? ? S ? Crea 1.20 mg/dL 0.66-1. Final [place] 25 [place] mg/dL Hospital Lab (Internal) : [address] ? ? S Low Ca 7.2 mg/dL 8.4-10. Final [place] 2 mg/dL [facility] Lab (Internal) : [address] t ? ? S ? Na 140 mmol/L 137-145 Final [place] mmol/L [facility] Lab (Internal) : [address] ? ? S ? K 4.7 mmol/L 3.5-5.1 Final [place] mmol/L [facility] Lab (Internal) : [address] ? ? S ? Cl 106 mmol/L 98-107 Final [place] mmol/L [facility] Lab (Internal) : [address] [place] ? ? S ? Tco2 24.0 mmol/L 22.0-30 Final [facility] h .0 [place] mmol/L Hospital Lab (Internal) : [address] [place] 09/27/2017 Venipuncture BLD ? Venpn* ? ? Final [facility] Lab (Internal) : [address] [place] 09/27/2017 Urinalysis, UR ? UA-color yellow pale Final [place] Dipstick, yellow [facility] ital Lab (Internal) : [address] t ? ? UR ? UA-appear clear clear Final [facility] Lab (Internal) : [address] ? ? UR ? UA-spec 1.020 1.003-1 Final [place] Grav .035 [facility] Lab (Internal) : [address] ? ? UR ? UA-pH 6.0 [pH] 4.6-8.0 Final [place] [pH] [facility] Lab (Internal) : [address] ? ? UR ? UA-leuk negative negativ Final [facility] Lab (Internal) : [address] ? ? UR ? UA-nitrit negative negativ Final [facility] Lab (Internal) : [address] ? ? UR ? UA-prot negative negativ Final [facility] Lab (Internal) : [address] ? ? UR ABNORMA UA-gluc 4+ negativ Final [facility] Lab (Internal) : [address] ? ? UR ? UA-ketone negative negativ Final [facility] Lab (Internal) : [address] ? ? UR ? UA-urobil normal normal Final [facility] Lab (Internal) : [address] ? ? UR ? UA-bili negative negativ Final [facility] Lab (Internal) : [address] ? ? UR ? UA-blood negative negativ Final [facility] Lab (Internal) : [address] 09/27/2017 CBC W/ Auto BLD High Wbc 13.4 10*3/uL 5.0-10. F inal [place] Diff 0 [facility] 10*3/uL Hospital Lab (Internal) : [address] ? ? BLD Low Rbc 3.51 10*6/uL 4.60-6. Final [facility] th 00 [facility] 10*6/uL Hospital Lab (Internal) : [address] ? ? BLD Low Hgb 11.3 g/dL 14.0-18 Final [place] .0 g/dL [facility] Hospital Lab (Internal) : [address] ? ? BLD Low Hct 34.2 % 41.0-51 Final [place] .0 % [facility] Lab (Internal) : [address] ? ? BLD High Mcv 97.4 fL 80.0-96 Final [place] .0 fL [facility] Hospital Lab (Internal) : [address] ? ? BLD High Mch 32.2 pg 26.0-32 Final [place] .0 pg [facility] Lab (Internal) : [address] [place] ? ? BLD ? Mchc 33.0 g/dL 31.0-35 Final [place] .0 g/dL [facility] (Internal) : [address] [place] ? ? BLD ? Rdw 11.9 % 11.5-14 Final [place] .5 % [facility] (Internal) : [address] [place] ? ? BLD ? Plt 342 10*3/uL 130-450 Final Nort h 10*3/uL [facility] Lab (Internal) : [address] [place] ? ? BLD ? Anc 9.46 10*3/uL ? Final Nort h [facility] Lab (Internal) : [address] [place] ? ? BLD ? Neutro 70.5 % 40.0-75 Final [place] .0 % [facility] (Internal) : [address] [place] ? ? BLD Low Lymph 18.6 % 20.0-50 Final [place] .0 % [facility] (Internal) : [address] [place] ? ? BLD ? Attala 9.9 % 2.0-10. Final North 0 % [facility] (Internal) : [address] [place] ? ? BLD Low Eos 0.4 % 1.0-6.0 Final North % [facility] Lab (Internal) : [address] [place] ? ? BLD ? Baso 0.2 % 0.0-1.0 Final [place] % [facility] (Internal) : [address] [place] ? ? BLD ? Ig 0.4 % 0.0-0.9 Final [place] % [facility] Lab (Internal) : [address], [place] 09/27/2017 BMP, Serum or S High g/r 124 mg/dL 74-106 Fin al [place] Plasma mg/dL [facility] (Internal) : [address] [place] ? ? S High Bun 43 mg/dL 9-20 Final [place] mg/dL [facility] (Internal) : [address], [place] ? ? S High Crea 2.10 mg/dL 0.66-1. Final North 25 [place] mg/dL Hospital Lab (Internal) : [address] ? ? S Low Ca 7.0 mg/dL 8.4-10. Final [place] 2 mg/dL [facility] Lab (Internal) : [address] ? ? S ? Na 138 mmol/L 137-145 Final [place] mmol/L [facility] Lab (Internal) : [address] ? ? S ? K 4.6 mmol/L 3.5-5.1 Final [place] mmol/L [facility] Lab (Internal) : [address] ? ? S ? Cl 103 mmol/L 98-107 Final [place] mmol/L [facility] Lab (Internal) : [address] ? ? S ? Tco2 23.0 mmol/L 22.0-30 Final Nort h .0 [facility] mmol/L Hospital Lab (Internal) : [address] 09/26/2017 Venipuncture BLD ? Venpn* ? ? Final [facility] Lab (Internal) : [address] 09/26/2017 Urinalysis, UR ? UA-WBC 0-3 [hpf] 0-3 Veronique l [place] Microscopic [hpf] Count Hospital Lab (Internal) : [address] ? ? UR ABNORMA UA-RBC 10-25 [hpf] 0-2 Final Nor th L [hpf] [facility] Lab (Internal) : [address] ? ? UR ? UA-bacter none seen none Final [place] [hpf] seen [facility] [hpf] Hospital Lab (Internal) : [address] ? ? UR ? UA-epithe rare [hpf] none Final No rth lial seen [facility] [hpf] Hospital Lab (Internal) : [address] ? ? UR ABNORMA UA-mucus few [hpf] none Final [place] L seen [facility] [hpf] Hospital Lab (Internal) : [address] ? ? UR ? Amorph few [hpf] ? Final [facility] (Internal) : [address] ? ? UR ? Ca Ox few [hpf] ? Final [facility] Hospital Lab (Internal) : [address] ? ? UR ABNORMA Renal few [hpf] none Final [facility] Cells seen [facility] [hpf] Hospital Lab (Internal) : [address] ? ? UR ? Hyaline C many [hpf] ? Final No rth [facility] Hospital Lab (Internal) : [address] ? ? UR ? Granular moderate ? Final [place] C [hpf] [facility] Lab (Internal) : [address] 09/26/2017 Urinalysis, UR ? UA-color yellow pale Final [place] Dipstick, yellow [facility] Lab (Internal) : [address] ? ? UR ABNORMA UA-appear hazy clear Final [facility] Lab (Internal) : [address] ? ? UR ? UA-spec >=1.030 1.003-1 Final [place] Grav .035 [facility] Lab (Internal) : [address] ? ? UR ? UA-pH 5.0 [pH] 4.6-8.0 Final [place] [pH] [facility] Lab (Internal) : [address] ? ? UR ? UA-leuk negative negativ Final [facility] Lab (Internal) : [address] ? ? UR ? UA-nitrit negative negativ Final [facility] Lab (Internal) : [address] ? ? UR ABNORMA UA-prot 2+ negativ Final [facility] Lab (Internal) : [address] ? ? UR ? UA-gluc trace negativ Final [facility] Lab (Internal) : [address] ? ? UR ABNORMA UA-ketone trace negativ Final [facility] Lab (Internal) : [address] ? ? UR ABNORMA UA-urobil positive normal Final [facility] Lab (Internal) : [address] ? ? UR ABNORMA UA-bili small negativ Final [facility] Lab (Internal) : [address] ? ? UR ABNORMA UA-blood moderate negativ Final [facility] Lab (Internal) : [address] 09/26/2017 T4, Free, SERUM High Ft4 2.44 NG/dL 0.78-2. Final [place] Serum 19 [place] NG/dL Hospital Lab (Internal) : [address] 09/26/2017 Phosphorus, PLASMA High Phos 4.7 mg/dL 2.5-4.5 Veronique l [place] Serum or mg/dL [place] Plasma [facility] [address] [facility] 09/26/2017 Magnesium, PLASMA ? mg 2.2 mg/dL 1.6-2.3 Final [place] QN, Serum or mg/dL Coun try Plasma Hospital Lab (Internal) : [address] 09/26/2017 PTH S ? Intact 39 pg/mL 12-77 Final Nor th (Parathyroid PTH pg/mL Coun try Hormone), Hospita l Intact, Serum Lab or Plasma ([employer] al): [address] 09/26/2017 CBC W/ Auto BLD High Wbc 19.7 10*3/uL 5.0-10. F inal [place] Diff 0 [place] 10*3/uL Hospital Lab (Internal) : [address] [place] ? ? BLD Low Rbc 4.31 10*6/uL 4.60-6. Final [place] th 00 [place] 10*6/uL Hospital Lab (Internal) : [address] ? ? BLD ? Hgb 14.0 g/dL 14.0-18 Final North .0 g/dL [facility] Lab (Internal) : [address] ? ? BLD ? Hct 41.3 % 41.0-51 Final [place] .0 % [facility] Lab (Internal) : [address] [place] ? ? BLD ? Mcv 95.8 fL 80.0-96 Final [place] .0 fL [facility] Lab (Internal) : [address] ? ? BLD High Mch 32.5 pg 26.0-32 Final [place] .0 pg [facility] Lab (Internal) : [address] ? ? BLD ? Mchc 33.9 g/dL 31.0-35 Final North .0 g/dL [facility] Lab (Internal) : [address] ? ? BLD ? Rdw 11.8 % 11.5-14 Final [place] .5 % [facility] (Internal) : [address] ? ? BLD High Plt 457 10*3/uL 130-450 Final Nort h 10*3/uL [facility] Lab (Internal) : [address] ? ? BLD ? Anc 15.23 10*3/uL ? Final [place] th [facility] Lab (Internal) : [address] ? ? BLD High Neutro 77.3 % 40.0-75 Final [place] .0 % [facility] Lab (Internal) : [address] ? ? BLD Low Lymph 12.5 % 20.0-50 Final North .0 % [facility] Hospital Lab (Internal) : [address] ? ? BLD ? Attala 9.5 % 2.0-10. Final [place] 0 % [facility] Hospital Lab (Internal) : [address], [place] ? ? BLD Low Eos 0.1 % 1.0-6.0 Final [place] % [facility] Lab (Internal) : [address] ? ? BLD ? Baso 0.1 % 0.0-1.0 Final [place] % [facility] Lab (Internal) : [address] ? ? BLD ? Ig 0.5 % 0.0-0.9 Final [place] % [facility] Lab (Internal) : [address], [place] 09/26/2017 BMP, Serum or PLASMA High g/r 135 mg/dL 74-106 Fin al [place] Plasma mg/dL [facility] Lab (Internal) : [address], [place] ? ? PLASMA High Bun 67 mg/dL 9-20 Final [place] mg/dL [facility] Hospital Lab (Internal) : [address], [place] ? ? PLASMA High Crea 5.10 mg/dL 0.66-1. Final [place] 25 [place] mg/dL Hospital Lab (Internal) : [address], [place] ? ? PLASMA Low Ca 7.2 mg/dL 8.4-10. Final [place] 2 mg/dL [facility] Hospital Lab (Internal) : [address] ? ? PLASMA ? Na 138 mmol/L 137-145 Final [place] mmol/L [facility] Hospital Lab (Internal) : [address] ? ? PLASMA High K 5.2 mmol/L 3.5-5.1 Final [place] mmol/L [facility] Hospital Lab (Internal) : [address] ? ? PLASMA Low Cl 95 mmol/L 98-107 Final [place] mmol/L [facility] Hospital Lab (Internal) : [address] ? ? PLASMA ? Tco2 26.0 mmol/L 22.0-30 Final Nort h .0 [facility] mmol/L Hospital Lab (Internal) : [address] [facility] 09/25/2017 Venipuncture BLD ? Venpn* ? ? Final [facility] Lab (Internal) : [address] [facility] 09/25/2017 TSH, Serum or PLASMA Low Tsh <0.05 0.47-4. Final [place] Plasma u[IU]/mL [address] [place] [address] u[IU]/m Hospital L Lab (Internal) : [address] [facility] 09/[facility]/2017 Ketones, ? Ketone 0.5 mmol/L 0.0-0.5 Final [place] Quantitative, (Bhb mmol/L Cou ntr Blood Quant) Hospital Lab (Internal) : [address] [place] 09/25/2017 HbA1C WB ? Ha1C 5.7 % 4.0-6.0 Final [place] (Hemoglobin % Count ry a1C), Blood Hospi horacio Lab (Internal) : [address] [facility] 09/25/2017 Neutrophil BLD ? Anc-manua 15.62 10*3/uL ? Final [place] Count, l [facility] (Anc), Blood Lab (Internal) : [address] [facility] 09/25/2017 Differential, BLD High Polys 84 % 40-75 % Final [place] Manual, Blood Cou ntry Hospital Lab (Internal) : [address] ? ? BLD ? Bands 0 % 0-5 % Final [facility] Hospital Lab (Internal) : [address] ? ? BLD Low Lymphs 9 % 20-50 % Final [facility] Hospital Lab (Internal) : [address] ? ? BLD ? Att[place] 7 % 2-10 % Final [facility] Hospital Lab (Internal) : [address] ? ? BLD ? Eos 0 % 0-6 % Final [facility] Hospital Lab (Internal) : [address] ? ? BLD ? Baso 0 % 0-1 % Final [facility] Lab (Internal) : [address] ? ? BLD ? Atyp 0 % ? Final [facility] Lab (Internal) : [address] ? ? BLD ABNORMA Plts, elevated adequat Final [facility] Est. e [facility] Hospital Lab (Internal) : [address] ? ? BLD ? RBC normal normal Final [facility] Hospital Lab (Internal) : [address] 09/25/2017 CMP, Serum or S High g/r 224 mg/dL 74-106 Fin al [place] Plasma mg/dL [facility] Lab (Internal) : [address] ? ? S High Bun 60 mg/dL 9-20 Final [place] mg/dL [facility] Hospital Lab (Internal) : [address] ? ? S High Crea 5.60 mg/dL 0.66-1. Final [place] 25 Country mg/dL Hospital Lab (Internal) : [address] ? ? S ? Ca 9.5 mg/dL 8.4-10. Final [place] 2 mg/dL [facility] Hospital Lab (Internal) : [address] ? ? S ? Na 137 mmol/L 137-145 Final [place] mmol/L [facility] Hospital Lab (Internal) : [address] ? ? S High K 5.2 mmol/L 3.5-5.1 Final [place] mmol/L [facility] Hospital Lab (Internal) : [address] ? ? S Low Cl 87 mmol/L 98-107 Final [place] mmol/L [facility] Hospital Lab (Internal) : [address] ? ? S Low Tco2 20.0 mmol/L 22.0-30 Final Nort h .0 [place] mmol/L Hospital Lab (Internal) : [address] ? ? S High Tp 9.4 g/dL 6.3-8.2 Final [place] g/dL [facility] Hospital Lab (Internal) : [address] ? ? S High Alb 5.6 g/dL 3.5-5.0 Final [place] g/dL [facility] Lab (Internal) : [address] ? ? S ? Tbil 1.1 mg/dL 0.2-1.3 Final [place] mg/dL [facility] Lab (Internal) : [address] ? ? S High Alp 182 U/L 50-136 Final [place] U/L [facility] Hospital Lab (Internal) : [address] ? ? S ? Alt 49 U/L 21-72 Final [place] (Sgpt) U/L [facility] Hospital Lab (Internal) : [address] ? ? S ? Ast 36 U/L 17-59 Final [place] (Sgot) U/L [facility] Lab (Internal) : [address] 09/25/2017 CBC W/ Auto BLD High Wbc 18.6 10*3/uL 5.0-10. F inal [place] Diff 0 [place] 10*3/uL Hospital Lab (Internal) : [address] ? ? BLD ? Rbc 5.52 10*6/uL 4.60-6. Final Nor th 00 [place] 10*6/uL Hospital Lab (Internal) : [address] ? ? BLD ? Hgb 17.9 g/dL 14.0-18 Final [place] .0 g/dL [facility] Lab (Internal) : [address] ? ? BLD ? Hct 51.0 % 41.0-51 Final [place] .0 % [facility] Lab (Internal) : [address] [place] ? ? BLD ? Mcv 92.4 fL 80.0-96 Final [place] .0 fL [facility] Lab (Internal) : [address] ? ? BLD High Mch 32.4 pg 26.0-32 Final [place] .0 pg [facility] Lab (Internal) : [address] ? ? BLD High Mchc 35.1 g/dL 31.0-35 Final [place] .0 g/dL [facility] (Internal) : [address] ? ? BLD ? Rdw 11.5 % 11.5-14 Final [place] .5 % [facility] (Internal) : [address] ? ? BLD High Plt 637 10*3/uL 130-450 Final Nort h 10*3/uL [facility] (Internal) : [address] 07/10/2017 Venipuncture BLD ? Venpn* ? ? Final North [facility] Hospital Lab (Internal) : [address] 07/10/2017 CBC W/ Auto BLD High Wbc 11.9 10*3/uL 5.0-10. F inal [place] Diff 0 [place] 10*3/uL Hospital Lab (Internal) : [address] ? ? BLD ? Rbc 4.85 10*6/uL 4.60-6. Final Nor th 00 [place] 10*6/uL Hospital Lab (Internal) : [address] ? ? BLD ? Hgb 15.9 g/dL 14.0-18 Final [place] .0 g/dL [facility] Lab (Internal) : [address] ? ? BLD ? Hct 47.2 % 41.0-51 Final [place] .0 % [facility] (Internal) : [address] ? ? BLD High Mcv 97.3 fL 80.0-96 Final [place] .0 fL [facility] (Internal) : [address] ? ? BLD High Mch 32.8 pg 26.0-32 Final [place] .0 pg [facility] Lab (Internal) : [address] ? ? BLD ? Mchc 33.7 g/dL 31.0-35 Final [place] .0 g/dL [facility] : [address] ? ? BLD ? Rdw 12.5 % 11.5-14 Final North .5 % [facility] : [address] [place] ? ? BLD ? Plt 329 10*3/uL 130-450 Final Nort h 10*3/uL [facility] : [address] [place] ? ? BLD ? Anc 8.44 10*3/uL ? Final Nort h [facility] : [address], [place] ? ? BLD ? Neutro 70.8 % 40.0-75 Final [place] .0 % [facility] : [address] [place] ? ? BLD ? Lymph 20.1 % 20.0-50 Final North .0 % [facility] (Internal) : [address] [place] ? ? BLD ? [place]ala 8.4 % 2.0-10. Final North 0 % [facility] (Internal) : [address] ? ? BLD Low Eos 0.2 % 1.0-6.0 Final North % [facility] (Internal) : [address] [place] ? ? BLD ? Baso 0.2 % 0.0-1.0 Final North % [facility] (Internal) : [address] ? ? BLD ? Ig 0.3 % 0.0-0.9 Final [facility] (Internal) : [address] 07/10/2017 BMP, Serum or S High g/r 139 mg/dL 74-106 Fin al [place] Plasma mg/dL [facility] (Internal) : [address] ? ? S ? Bun 16 mg/dL 9-20 Final North mg/dL [facility] (Internal) : [address] ? ? S ? Crea 0.90 mg/dL 0.66-1. Final North 25 [facility] mg/dL Hospital Lab (Internal) : [address] ? ? S High Ca 11.6 mg/dL 8.4-10. Final North 2 mg/dL [facility] (Internal) : [address] ? ? S Low Na 135 mmol/L 137-145 Final [place] mmol/L [facility] (Internal) : [address] ? ? S ? K 4.1 mmol/L 3.5-5.1 Final [place] mmol/L [facility] (Internal) : [address] ? ? S ? Cl 102 mmol/L 98-107 Final [place] mmol/L [facility] (Internal) : [address] ? ? S ? Tco2 24.0 mmol/L 22.0-30 Final Nort h .0 [facility] mmol/L Hospital Lab (Internal) : [address] t 07/10/2017 Troponin I, PLASMA ? Trop <0.06 NG/mL 0.00-0. Fi nal [place] Serum or [facility] Plasma NG/mL [facility] [address] [facility] 07/09[facility]2017 Venipuncture BLD ? Venpn* ? ? Final [facility] Lab (Internal) : [address] [facility] 07/09/2017 TSH, Serum or PLASMA ? Tsh 0.61 u[IU]/mL 0.47-4 . Final [place] Plasma 68 [facility] u[IU]/m Hospital [facility] Lab (Internal) : [address] [facility] 07/09/2017 Troponin I, PLASMA ? Trop <0.06 NG/mL 0.00-0. Fi nal [place] Serum or 06 [facility] Plasma NG/mL Hospital Lab (Internal) : [address] 07/09/2017 CBC W/ Auto BLD High Wbc 16.3 10*3/uL 5.0-10. F inal [place] Diff 0 [facility] 10*3/uL Hospital Lab (Internal) : [address] ? ? BLD Low Rbc 4.43 10*6/uL 4.60-6. Final Nor th 00 [facility] 10*6/uL Hospital Lab (Internal) : [address] ? ? BLD ? Hgb 14.6 g/dL 14.0-18 Final North .0 g/dL [facility] (Internal) : [address] ? ? BLD ? Hct 42.9 % 41.0-51 Final [place] .0 % [facility] : [address] ? ? BLD High Mcv 96.8 fL 80.0-96 Final [place] .0 fL [facility] : [address] ? ? BLD High Mch 33.0 pg 26.0-32 Final [place] .0 pg [facility] : [address] [place] ? ? BLD ? Mchc 34.0 g/dL 31.0-35 Final North .0 g/dL [facility] (Internal) : [address] [place] ? ? BLD ? Rdw 12.9 % 11.5-14 Final North .5 % [facility] : [address] ? ? BLD ? Plt 310 10*3/uL 130-450 Final Nort h 10*3/uL [facility] : [address] ? ? BLD ? Anc 12.77 10*3/uL ? Final Nor th [facility] : [address] [place] ? ? BLD High Neutro 78.4 % 40.0-75 Final [place] .0 % [facility] : [address] [place] ? ? BLD Low Lymph 12.4 % 20.0-50 Final North .0 % [facility] : [address] [place] ? ? BLD ? [place] 8.6 % 2.0-10. Final North 0 % [facility] (Internal) : [address] [place] ? ? BLD Low Eos 0.0 % 1.0-6.0 Final [place] % [facility] (Internal) : [address] [place] ? ? BLD ? Baso 0.2 % 0.0-1.0 Final North [facility] Lab (Internal) : [address] ? ? BLD ? Ig 0.4 % 0.0-0.9 Final [facility] Lab (Internal) : [address] [place] 07/09/2017 BMP, Serum or PLASMA High g/r 125 mg/dL 74-106 Fin al [place] Plasma mg/dL [facility] : [address] [place] ? ? PLASMA ? Bun 18 mg/dL 9-20 Final [place] mg/dL [facility] : [address] [place] ? ? PLASMA ? Crea 0.80 mg/dL 0.66-1. Final North 25 [facility] mg/dL Hospital Lab (Internal) : [address] [place] ? ? PLASMA High Ca 10.6 mg/dL 8.4-10. Final North 2 mg/dL [facility] (Internal) : [address] [place] ? ? PLASMA Low Na 135 mmol/L 137-145 Final [place] mmol/L [facility] (Internal) : [address] [place] ? ? PLASMA ? K 4.2 mmol/L 3.5-5.1 Final [place] mmol/L [facility] (Internal) : [address] ? ? PLASMA ? Cl 103 mmol/L 98-107 Final [place] mmol/L [facility] (Internal) : [address] [place] ? ? PLASMA ? Tco2 22.0 mmol/L 22.0-30 Final Nort h .0 [facility] mmol/L Hospital Lab (Internal) : [address] 07/08/2017 Venipuncture BLD ? Venpn* ? ? Final [facility] Lab (Internal) : [address] [place] 07/08/2017 Urinalysis, UR ? UA-WBC 0-3 [hpf] 0-3 Veronique l [place] Microscopic [hpf] Count Hospital Lab (Internal) : [address] ? ? UR ? UA-RBC 0-2 [hpf] 0-2 Final [place] [hpf] [facility] (Internal) : [address] ? ? UR ? UA-bacter rare [hpf] none Final No rth ia seen [facility] [[facility] Hospital Lab (Internal) : [address] ? ? UR ? UA-epithe none seen none Final Nor th lial [hpf] seen [facility] [[facility] Hospital Lab (Internal) : [address] ? ? UR ABNORMA UA-mucus moderate none Final Nort h L [hpf] seen [facility] [[facility]] Hospital Lab (Internal) : [address] ? ? UR ? Amorph few [hpf] ? Final [facility] Hospital Lab (Internal) : [address] 07/08/2017 Urinalysis, UR ? UA-color dark yellow pale Final [place] Dipstick, yellow [facility] ital Lab (Internal) : [address] ? ? UR ? UA-appear clear clear Final [facility] Lab (Internal) : [address] ? ? UR ? UA-spec 1.025 1.003-1 Final [place] Grav .035 [facility] (Internal) : [address] ? ? UR ? UA-pH 6.0 [pH] 4.6-8.0 Final [place] [pH] [facility] Lab (Internal) : [address] ? ? UR ? UA-leuk negative negativ Final [facility] Lab (Internal) : [address] ? ? UR ? UA-nitrit negative negativ Final [facility] Lab (Internal) : [address] ? ? UR ABNORMA UA-prot 1+ negativ Final [facility] (Internal) : [address] ? ? UR ? UA-gluc negative negativ Final [facility] (Internal) : [address] ? ? UR ABNORMA UA-ketone trace negativ Final [facility] (Internal) : [address] ? ? UR ABNORMA UA-urobil positive normal Final [facility] (Internal) : [address] ? ? UR ABNORMA UA-bili small negativ Final [facility] (Internal) : [address] ? ? UR ABNORMA UA-blood trace negativ Final [facility] (Internal) : [address] 07/08/2017 Drug Screen, UR ABNORMA Thc positive neg (50 Fin al [place] Urine L NG/mL NG/mL) [facility] NG/mL Hospital Lab (Internal) : [address] ? ? UR ? Pcp negative neg (25 Final North NG/mL) [facility] (Internal) : [address] ? ? UR ? Gena negative neg Final [place] (150 [facility] NG/mL) Hospital Lab (Internal) : [address] ? ? UR ? Met negative neg Final [place] (500 [facility] NG/mL) Hospital Lab (Internal) : [address] ? ? UR ? Opi negative neg Final [place] (100 [facility] NG/mL) Hospital Lab (Internal) : [address] ? ? UR ? Amp negative neg Final [place] (500 [facility] NG/mL) Hospital Lab (Internal) : [address] ? ? UR ? Bzo negative neg Final [place] (150 [facility] NG/mL) Hospital Lab (Internal) : [address] ? ? UR ABNORMA Tca positive neg Final [place] L (300 [facility] NG/mL) Hospital Lab (Internal) : [address] ? ? UR ? Mtd negative neg Final [place] (200 [facility] NG/mL) Hospital Lab (Internal) : [address] ? ? UR ? Bar negative neg Final [place] (200 [facility] NG/mL) Hospital Lab (Internal) : [address] ? ? UR ? Oxy negative neg Final [place] (100 [facility] NG/mL) Hospital Lab (Internal) : [address] ? ? UR ? Ppx negative neg Final [place] (300 [facility] NG/mL) Hospital Lab (Internal) : [address] ? ? UR ? Bup negative neg (10 Final North NG/mL) [facility] (Internal) : [address] 07/08/2017 Lipase, Serum S ? Lip 91 U/L 23-300 Final North or Plasma U/L [facility] (Internal) : [address] 07/08/2017 Calcium, BLD High Ionized 1.39 mmol/L 1.12-1. Fin [facility] Ionized, QN, Ca 32 Coun try Blood mmol/L Hospital Lab (Internal) : [address] 07/08/2017 CMP, Serum or S High g/r 151 mg/dL 74-106 Fin al [place] Plasma mg/dL [facility] (Internal) : [address] ? ? S High Bun 33 mg/dL 9-20 Final [place] mg/dL [facility] (Internal) : [address] ? ? S ? Crea 1.10 mg/dL 0.66-1. Final North 25 [facility] mg/dL Hospital Lab (Internal) : [address] ? ? S CRITICA Ca 12.8 mg/dL 8.4-10. Final Nort h L HIGH 2 mg/dL [facility] Hospital [facility] (Internal) : [address] ? ? S ? Na 139 mmol/L 137-145 Final North mmol/L [facility] (Internal) : [address] ? ? S ? K 3.9 mmol/L 3.5-5.1 Final [place] mmol/L [facility] (Internal) : [address] ? ? S ? Cl 99 mmol/L 98-107 Final [place] mmol/L [facility] (Internal) : [address] ? ? S ? Tco2 25.0 mmol/L 22.0-30 Final Nort h .0 [facility] mmol/L Hospital Lab (Internal) : [address] ? ? S High Tp 9.0 g/dL 6.3-8.2 Final [place] g/dL [facility] (Internal) : [address] [place] ? ? S High Alb 5.5 g/dL 3.5-5.0 Final [place] g/dL [facility] (Internal) : [address] [place] ? ? S High Tbil 3.6 mg/dL 0.2-1.3 Final [place] mg/dL [facility] (Internal) : [address] ? ? S ? Alp 117 U/L 50-136 Final [place] U/L [facility] (Internal) : [address] ? ? S ? Alt 46 U/L 21-72 Final [place] (Sgpt) U/L [facility] (Internal) : [address] ? ? S ? Ast 32 U/L 17-59 Final [place] (Sgot) U/L [facility] (Internal) : [address] 07/08/2017 CBC W/ Auto BLD High Wbc 18.9 10*3/uL 5.0-10. F inal [place] Diff 0 [facility] 10*3/uL Hospital Lab (Internal) : [address] ? ? BLD ? Rbc 5.20 10*6/uL 4.60-6. Final Nor th 00 [facility] 10*6/uL Hospital [facility] (Internal) : [address] ? ? BLD ? Hgb 17.2 g/dL 14.0-18 Final North .0 g/dL [facility] (Internal) : [address] ? ? BLD ? Hct 49.6 % 41.0-51 Final [place] .0 % [facility] : [address] [place] ? ? BLD ? Mcv 95.4 fL 80.0-96 Final [place] .0 fL [facility] : [address] [place] ? ? BLD High Mch 33.1 pg 26.0-32 Final North .0 pg [facility] ([facility] : [address] [place] ? ? BLD ? Mchc 34.7 g/dL 31.0-35 Final North .0 g/dL [facility] : [address] [place] ? ? BLD ? Rdw 12.9 % 11.5-14 Final North .5 % [facility] ([facility] : [address] [place] ? ? BLD ? Plt 380 10*3/uL 130-450 Final Nort h 10*3/uL [facility] : [address] [place] ? ? BLD ? Anc 14.80 10*3/uL ? Final Nor th [facility] : [address] [place] ? ? BLD High Neutro 78.4 % 40.0-75 Final North .0 % [facility] : [address] [place] ? ? BLD Low Lymph 12.3 % 20.0-50 Final North .0 % [facility] ([facility] : [address] [place] ? ? BLD ? [place] 8.6 % 2.0-10. Final North 0 % [facility] ([facility] : [address] [place] ? ? BLD Low Eos 0.1 % 1.0-6.0 Final North % [facility] ([facility] : [address] [place] ? ? BLD ? Baso 0.3 % 0.0-1.0 Final North % [facility] ([facility] : [address] [place] ? ? BLD ? Ig 0.3 % 0.0-0.9 Final North % [facility] : [address] [place] 02/23/2017 RBC BLD ? Aniso small ? Final North Morphology, Count ry Blood Hospital Lab (Internal) : [address] [place] ? ? BLD ? Poik occasional ? Final North [hpf] [facility] : [address] 02/23/2017 Lipase, Serum S ? Lip 84 U/L 23-300 Final North or Plasma U/L [facility] (Internal) : [address] 02/23/2017 CMP, Serum or S High g/r 129 mg/dL 74-106 Fin al [place] Plasma mg/dL [facility] (Internal) : [address] ? ? S ? Bun 11 mg/dL 9-20 Final [place] mg/dL [facility] (Internal) : [address] ? ? S ? Crea 0.90 mg/dL 0.66-1. Final North 25 [facility] mg/dL Hospital Lab (Internal) : [address] ? ? S High Ca 11.1 mg/dL 8.4-10. Final North 2 mg/dL [facility] (Internal) : [address] ? ? S ? Na 140 mmol/L 137-145 Final [place] mmol/L [facility] (Internal) : [address] ? ? S ? K 4.8 mmol/L 3.5-5.1 Final [place] mmol/L [facility] (Internal) : [address] ? ? S ? Cl 105 mmol/L 98-107 Final [place] mmol/L [facility] (Internal) : [address] ? ? S ? Tco2 25.0 mmol/L 22.0-30 Final Nort h .0 [facility] mmol/L Hospital Lab (Internal) : [address] ? ? S ? Tp 8.0 g/dL 6.3-8.2 Final [place] g/dL [facility] (Internal) : [address] ? ? S ? Alb 5.0 g/dL 3.5-5.0 Final [place] g/dL [facility] (Internal) : [address] ? ? S ? Tbil 1.3 mg/dL 0.2-1.3 Final [place] mg/dL [facility] (Internal) : [address] ? ? S ? Alp 110 U/L 50-136 Final [place] U/L [facility] (Internal) : [address] ? ? S ? Alt 40 U/L 21-72 Final [place] (Sgpt) U/L [facility] : [address] ? ? S ? Ast 25 U/L 17-59 Final [place] (Sgot) U/L [facility] ([facility] : [address] 02/23/2017 CBC W/ Auto BLD High Wbc 11.8 10*3/uL 5.0-10. F inal [place] Diff 0 [facility] 10*3/uL Hospital Lab (Internal) : [address] ? ? BLD Low Rbc 4.55 10*6/uL 4.60-6. Final Nor th 00 [facility] 10*6/uL Hospital Lab (Internal) : [address] ? ? BLD ? Hgb 15.0 g/dL 14.0-18 Final North .0 g/dL [facility] ([facility] : [address] ? ? BLD ? Hct 45.7 % 41.0-51 Final North .0 % [facility] ([facility] : [address] ? ? BLD High Mcv 100.4 fL 80.0-96 Final [place] .0 fL [facility] ([facility] : [address] ? ? BLD High Mch 33.0 pg 26.0-32 Final North .0 pg [facility] ([facility] : [address] ? ? BLD ? Mchc 32.8 g/dL 31.0-35 Final North .0 g/dL [facility] ([facility] : [address] ? ? BLD ? Rdw 13.8 % 11.5-14 Final North .5 % [facility] ([facility] : [address] ? ? BLD ? Plt 320 10*3/uL 130-450 Final Nort h 10*3/uL [facility] ([facility] : [address] [place] ? ? BLD ? Anc 8.60 10*3/uL ? Final Nort h [facility] ([facility] : [address] [place] ? ? BLD ? Neutro 73.1 % 40.0-75 Final North .0 % [facility] : [address] ? ? BLD Low Lymph 18.1 % 20.0-50 Final North .0 % [facility] ([facility] : [address] ? ? BLD ? [place] 7.3 % 2.0-10. Final North 0 % [facility] (Internal) : [address] ? ? BLD Low Eos 0.9 % 1.0-6.0 Final [place] % [facility] (Internal) : [address] ? ? BLD ? Baso 0.3 % 0.0-1.0 Final North % [facility] (Internal) : [address] ? ? BLD ? Ig 0.3 % 0.0-0.9 Final [place] % [facility] (Internal) : [address] 01/17/2017 Venipuncture BLD ? Venpn* ? ? Final [facility] Lab (Internal) : [address] 01/17/2017 Cbc BLD ? Wbc 7.3 10*3/uL 5.0-10. Final North 0 [facility] 10*3/uL Hospital Lab (Internal) : [address] ? ? BLD Low Rbc 3.53 10*6/uL 4.60-6. Final Nor 00 [facility] 10*6/uL Hospital Lab (Internal) : [address] ? ? BLD Low Hgb 11.8 g/dL 14.0-18 Final North .0 g/dL [facility] ([facility] : [address] ? ? BLD Low Hct 34.6 % 41.0-51 Final North .0 % [facility] ([facility] : [address] ? ? BLD High Mcv 98.0 fL 80.0-96 Final North .0 fL [facility] ([facility] : [address] ? ? BLD High Mch 33.4 pg 26.0-32 Final North .0 pg [facility] ([facility] : [address] ? ? BLD ? Mchc 34.1 g/dL 31.0-35 Final North .0 g/dL [facility] ([facility] : [address] [place] ? ? BLD ? Rdw 12.6 % 11.5-14 Final North .5 % [facility] (Internal) : [address] [place] ? ? BLD ? Plt 230 10*3/uL 130-450 [facility] (Internal) : [address] [place] [place] ? ? BLD ? Anc 4.00 10*3/uL ? Final Nort [facility] Lab (Internal) : [address] [place] 01/17/2017 BMP, Serum or PLASMA ? g/r 90 mg/dL 74-106 Veronique l [place] Plasma mg/dL [facility] Lab (Internal) : [address] ? ? PLASMA ? Bun 16 mg/dL 9-20 Final [place] mg/dL [facility] (Internal) : [address] ? ? PLASMA ? Crea 0.80 mg/dL 0.66-1. Final [place] 25 [place] mg/dL Hospital Lab (Internal) : [address] [place] ? ? PLASMA High Ca 10.8 mg/dL 8.4-10. Final North 2 mg/dL [facility] Lab (Internal) : [address] [place] ? ? PLASMA Low Na 135 mmol/L 137-145 Final [place] mmol/L [facility] (Internal) : [address] ? ? PLASMA ? K 4.3 mmol/L 3.5-5.1 Final [place] mmol/L [facility] Lab (Internal) : [address] [place] ? ? PLASMA ? Cl 107 mmol/L 98-107 Final [place] mmol/L [facility] Lab (Internal) : [address] ? ? PLASMA ? Tco2 27.0 mmol/L 22.0-30 Final [facility] .0 [facility] mmol/L Hospital Lab (Internal) : [address] 01/16/2017 Venipuncture BLD ? Venpn* ? ? Final [facility] Lab (Internal) : [address] 01/16/2017 Drug Screen, UR ABNORMA Thc positive neg (50 Fin al [place] Urine L NG/mL NG/mL) [facility] NG/mL Hospital Lab (Internal) : [address] [place] ? ? UR ? Pcp negative neg (25 Final [place] NG/mL) [facility] Lab (Internal) : [address] [place] ? ? UR ? Gena negative neg Final [place] (150 [facility] NG/mL) Hospital Lab (Internal) : [address] [place] ? ? UR ? Met negative neg Final [place] (500 [place] NG/mL) Hospital Lab (Internal) : [address] [place] ? ? UR ? Opi negative neg Final [place] (100 [place] NG/mL) Hospital Lab (Internal) : [address] [place] ? ? UR ? Amp negative neg Final [place] (500 [facility] NG/mL) Hospital Lab (Internal) : [address] [place] ? ? UR ? Bzo negative neg Final [place] (150 [place] NG/mL) Hospital Lab (Internal) : [address] [place] ? ? UR ? Tca negative neg Final [place] (300 [facility] NG/mL) Hospital Lab (Internal) : [address] [place] ? ? UR ? Mtd negative neg Final [place] (200 [facility] NG/mL) Hospital Lab (Internal) : [address] [place] ? ? UR ? Bar negative neg Final [place] (200 [facility] NG/mL) Hospital Lab (Internal) : [address] [place] ? ? UR ? Oxy negative neg Final [place] (100 [place] NG/mL) Hospital Lab (Internal) : [address] [place] ? ? UR ? Ppx negative neg Final [place] (300 [place] NG/mL) Hospital Lab (Internal) : [address] [place] ? ? UR ? Bup negative neg (10 Final [place] NG/mL) [facility] Lab (Internal) : [address] [place] 01/16/2017 Urinalysis, UR ? UA-WBC 0-3 [hpf] 0-3 Veronique marielle [place] Microscopic [hpf] Count Hospital Lab (Internal) : [address] [place] ? ? UR ? UA-RBC 0-2 [hpf] 0-2 Final North [hpf] [facility] Lab (Internal) : [address] ? ? UR ? UA-bacter rare [hpf] none Final No rth ia seen [facility] [hpf] Hospital Lab (Internal) : [address] ? ? UR ? UA-epithe rare [hpf] none Final No rth lial seen [facility] [hpf] Hospital Lab (Internal) : [address] ? ? UR ? UA-mucus none seen none Final Nort h [hpf] seen [facility] [hpf] Hospital Lab (Internal) : [address] ? ? UR ? Amorph many [hpf] ? Final [facility] Hospital Lab (Internal) : [address] 01/16/2017 Urinalysis, UR ? UA-color yellow pale Final [place] Dipstick, yellow [facility] Lab (Internal) : [address] ? ? UR ABNORMA UA-appear cloudy clear Final [facility] Lab (Internal) : [address] ? ? UR ? UA-spec 1.015 1.003-1 Final [place] Grav .035 [facility] Lab (Internal) : [address] ? ? UR ? UA-pH 6.5 [pH] 4.6-8.0 Final [place] [pH] [facility] Lab (Internal) : [address] ? ? UR ? UA-leuk negative negativ Final [facility] Lab (Internal) : [address] ? ? UR ? UA-nitrit negative negativ Final [facility] Lab (Internal) : [address] ? ? UR ? UA-prot negative negativ Final [facility] Lab (Internal) : [address] [place] ? ? UR ? UA-gluc negative negativ Final [facility] Lab (Internal) : [address] [place] ? ? UR ? UA-ketone negative negativ Final [facility] Lab (Internal) : [address] ? ? UR ABNORMA UA-urobil positive normal Final [facility] Lab (Internal) : [address] ? ? UR ? UA-bili negative negativ Final [facility] Lab (Internal) : [address] ? ? UR ? UA-blood negative negativ Final [facility] e [facility] (Internal[facility] : [address] [facility] 01/16/2017 Calcium, BLD High Ionized 1.43 mmol/L 1.12-1. Fin al [place] Ionized, QN, Ca 32 Coun try Blood mmol/L Hospital Lab (Internal) : [address] [facility] 01/16/2017 Bilirubin, PLASMA High Dbil 0.6 mg/dL 0.0-0.3 Final [place] Direct, Serum mg/dL Cou ntry or Plasma Hospita l Lab (Internal) : [address] [facility] 01/16/2017 TSH, Serum or PLASMA ? Tsh 0.53 u[IU]/mL 0.47-4 . Final [place] Plasma 68 Country u[IU]/m Hospital L Lab (Internal) : [address] [facility] 01/16/2017 PTH S High Intact 239 pg/mL 12-77 Final No rth (Parathyroid PTH pg/mL Coun try Hormone), Hospita l Intact, Serum Lab or Plasma ([employer] al): [address] [facility] 01/16/2017 Lipase, Serum S ? Lip 80 U/L 23-300 Final North or Plasma U/L [facility] Lab (Internal) : [address] [facility] 01/16/2017 CMP, Serum or S High g/r 119 mg/dL 74-106 Fin al [place] Plasma mg/dL [facility] Lab (Internal) : [address] ? ? S High Bun 25 mg/dL 9-20 Final North mg/dL [facility] Hospital Lab (Internal) : [address] ? ? S ? Crea 0.90 mg/dL 0.66-1. Final North 25 Country mg/dL Hospital Lab (Internal) : [address] ? ? S High Ca 11.7 mg/dL 8.4-10. Final North 2 mg/dL [facility] Hospital Lab (Internal) : [address] ? ? S ? Na 139 mmol/L 137-145 Final [place] mmol/L [facility] Lab (Internal) : [address] ? ? S ? K 4.6 mmol/L 3.5-5.1 Final [place] mmol/L [facility] Hospital Lab (Internal) : [address] ? ? S ? Cl 102 mmol/L 98-107 Final [place] mmol/L [facility] Hospital Lab (Internal) : [address] ? ? S ? Tco2 27.0 mmol/L 22.0-30 Final Nort h .0 Country mmol/L Hospital Lab (Internal) : [address] ? ? S ? Tp 7.3 g/dL 6.3-8.2 Final [place] g/dL [facility] Hospital Lab (Internal) : [address] ? ? S ? Alb 4.5 g/dL 3.5-5.0 Final [place] g/dL [facility] Hospital Lab (Internal) : [address] [place] ? ? S High Tbil 2.7 mg/dL 0.2-1.3 Final [place] mg/dL [facility] Hospital Lab (Internal) : [address] [place] ? ? S ? Alp 98 U/L 50-136 Final [place] U/L [facility] Hospital Lab (Internal) : [address] ? ? S ? Alt 35 U/L 21-72 Final [place] (Sgpt) U/L [facility] Hospital Lab (Internal) : [address] ? ? S ? Ast 29 U/L 17-59 Final [place] (Sgot) U/L [facility] Hospital Lab (Internal) : [address] [place] [address] 01/16/2017 CBC W/ Auto BLD High Wbc 11.8 10*3/uL 5.0-10. F inal [place] Diff 0 Country 10*3/uL Hospital Lab (Internal) : [address] [place] [address] ? ? BLD Low Rbc 4.41 10*6/uL 4.60-6. Final Nor th 00 Country 10*6/uL Hospital Lab (Internal) : [address] ? ? BLD ? Hgb 14.7 g/dL 14.0-18 Final North .0 g/dL [facility] Hospital Lab (Internal) : [address] ? ? BLD ? Hct 43.5 % 41.0-51 Final North .0 % [place] Hospital Lab (Internal) : [address] ? ? BLD High Mcv 98.6 fL 80.0-96 Final [place] .0 fL [place] Hospital Lab (Internal) : [address] ? ? BLD High Mch 33.3 pg 26.0-32 Final North .0 pg [facility] Hospital Lab (Internal) : [address] ? ? BLD ? Mchc 33.8 g/dL 31.0-35 Final North .0 g/dL [facility] Hospital Lab (Internal) : [address] ? ? BLD ? Rdw 12.7 % 11.5-14 Final North .5 % [facility] Hospital Lab (Internal) : [address] ? ? BLD ? Plt 312 10*3/uL 130-450 Final Nort h 10*3/uL [facility] Hospital Lab (Internal) : [address] ? ? BLD ? Anc 9.25 10*3/uL ? Final Nort h [facility] Hospital Lab (Internal) : [address] ? ? BLD High Neutro 78.3 % 40.0-75 Final [place] .0 % [facility] Hospital Lab (Internal) : [address] ? ? BLD Low Lymph 13.7 % 20.0-50 Final North .0 % [facility] Hospital Lab (Internal) : [address] ? ? BLD ? Attala 7.1 % 2.0-10. Final North 0 % [facility] Hospital Lab (Internal) : [address] ? ? BLD Low Eos 0.3 % 1.0-6.0 Final North % [facility] Hospital Lab (Internal) : [address] ? ? BLD ? Baso 0.3 % 0.0-1.0 Final North % [facility] Hospital Lab (Internal) : [address] ? ? BLD ? Ig 0.3 % 0.0-0.9 Final North % [facility] Hospital Lab (Internal) : [address] [place] [address] 01/14/2017 Neutrophil BLD ? Anc-manua 11.41 10*3/uL ? Final [place] Count, l [facility] (Anc), Blood Lab (Internal) : [address] [place] [address] 01/14/2017 Differential, BLD High Polys 89 % 40-75 % Final [place] Manual, Blood Cou [facility] Hospital Lab (Internal) : [address] ? ? BLD ? Bands 0 % 0-5 % Final [facility] Lab (Internal) : [address] ? ? BLD Low Lymphs 7 % 20-50 % Final [facility] Lab (Internal) : [address] ? ? BLD ? Attala 4 % 2-10 % Final [facility] Lab (Internal) : [address] ? ? BLD ? Eos 0 % 0-6 % Final [facility] Lab (Internal) : [address] ? ? BLD ? Baso 0 % 0-1 % Final [facility] Lab (Internal) : [address] ? ? BLD ? Atyp 0 % ? Final [facility] Lab (Internal) : [address] ? ? BLD ? Plts, adequate adequat Final [place] Est. e [facility] Lab (Internal) : [address] ? ? BLD ? RBC normal normal Final [facility] Hospital Lab (Internal) : [address] 01/14/2017 Lipase, Serum S ? Lip 66 U/L 23-300 Final [place] or Plasma U/L [facility] Lab (Internal) : [address] 01/14/2017 CMP, Serum or S High g/r 173 mg/dL 74-106 Fin al [place] Plasma mg/dL [facility] Lab (Internal) : [address] ? ? S High Bun 33 mg/dL 9-20 Final [place] mg/dL [facility] Hospital Lab (Internal) : [address] ? ? S High Crea 1.40 mg/dL 0.66-1. Final North 25 Country mg/dL Hospital Lab (Internal) : [address] ? ? S CRITICA Ca 13.9 mg/dL 8.4-10. Final Nort h L HIGH 2 mg/dL [facility] Lab (Internal) : [address] ? ? S ? Na 141 mmol/L 137-145 Final [place] mmol/L [facility] Hospital Lab (Internal) : [address] ? ? S ? K 5.0 mmol/L 3.5-5.1 Final [place] mmol/L [facility] Hospital Lab (Internal) : [address] ? ? S Low Cl 97 mmol/L 98-107 Final [place] mmol/L [facility] Hospital Lab (Internal) : [address] ? ? S High Tco2 33.0 mmol/L 22.0-30 Final Nort h .0 [facility] mmol/L Hospital Lab (Internal) : [address] ? ? S High Tp 9.0 g/dL 6.3-8.2 Final [place] g/dL [facility] Hospital Lab (Internal) : [address] [place] ? ? S High Alb 5.4 g/dL 3.5-5.0 Final [place] g/dL [facility] Hospital Lab (Internal) : [address] ? ? S High Tbil 2.8 mg/dL 0.2-1.3 Final [place] mg/dL [facility] Hospital Lab (Internal) : [address] ? ? S ? Alp 115 U/L 50-136 Final [place] U/L [facility] Hospital Lab (Internal) : [address] ? ? S ? Alt 41 U/L 21-72 Final [place] (Sgpt) U/L [facility] Hospital Lab (Internal) : [address] ? ? S ? Ast 30 U/L 17-59 Final [place] (Sgot) U/L [facility] Hospital Lab (Internal) : [address] [place] [address] 01/14/2017 CBC W/ Auto BLD High Wbc 12.8 10*3/uL 5.0-10. F inal [place] Diff 0 [place] 10*3/uL Hospital Lab (Internal) : [address] ? ? BLD ? Rbc 5.24 10*6/uL 4.60-6. Final Nor th 00 [place] 10*6/uL Hospital Lab (Internal) : [address] ? ? BLD ? Hgb 17.9 g/dL 14.0-18 Final North .0 g/dL [facility] Hospital Lab (Internal) : [address] ? ? BLD ? Hct 50.6 % 41.0-51 Final North .0 % [facility] Hospital Lab (Internal) : [address] ? ? BLD High Mcv 96.6 fL 80.0-96 Final [place] .0 fL [place] Hospital Lab (Internal) : [address] ? ? BLD High Mch 34.2 pg 26.0-32 Final North .0 pg [facility] Hospital Lab (Internal) : [address] ? ? BLD High Mchc 35.4 g/dL 31.0-35 Final North .0 g/dL [facility] Hospital Lab (Internal) : [address] ? ? BLD ? Rdw 12.9 % 11.5-14 Final North .5 % [facility] Hospital Lab (Internal) : [address] ? ? BLD ? Plt 374 10*3/uL 130-450 Final Nort h 10*3/uL [facility] Hospital Lab (Internal) : [address] 12/20/2016 Drug Screen, UR ABNORMA Thc positive neg (50 Fin al [place] Urine L NG/mL NG/mL) Country NG/mL Hospital Lab (Internal) : [address] ? ? UR ? Pcp negative neg (25 Final [place] NG/mL) [facility] Hospital Lab (Internal) : [address] ? ? UR ? Gena negative neg Final North (150 [place] NG/mL) Hospital Lab (Internal) : [address] ? ? UR ? Met negative neg Final [place] (500 Country NG/mL) Hospital Lab (Internal) : [address] ? ? UR ABNORMA Opi positive neg Final North L (100 Country NG/mL) Hospital Lab (Internal) : [address] ? ? UR ? Amp negative neg Final [place] (500 [place] NG/mL) Hospital Lab (Internal) : [address] ? ? UR ? Bzo negative neg Final [place] (150 [place] NG/mL) Hospital Lab (Internal) : [address] ? ? UR ABNORMA Tca positive neg Final North L (300 [place] NG/mL) Hospital Lab (Internal) : [address] ? ? UR ? Mtd negative neg Final [place] (200 [place] NG/mL) Hospital Lab (Internal) : [address] ? ? UR ? Bar negative neg Final [place] (200 [place] NG/mL) Hospital Lab (Internal) : [address] ? ? UR ? Oxy negative neg Final [place] (100 [place] NG/mL) Hospital Lab (Internal) : [address] ? ? UR ? Ppx negative neg Final [place] (300 [place] NG/mL) Hospital Lab (Internal) : [address] ? ? UR ? Bup negative neg (10 Final [place] NG/mL) [facility] Hospital Lab (Internal) : [address] 12/20/2016 Urinalysis, UR ? UA-color yellow pale Final [place] Complete yellow [facility] Lab (Internal) : [address] ? ? UR ? UA-appear clear clear Final [facility] Lab (Internal) : [address] ? ? UR ? UA-spec 1.025 1.003-1 Final [place] Grav .035 [facility] Lab (Internal) : [address] ? ? UR ? UA-pH 5.5 [pH] 4.6-8.0 Final [place] [pH] [facility] Lab (Internal) : [address] ? ? UR ? UA-leuk negative negativ Final [facility] Lab (Internal) : [address] ? ? UR ? UA-nitrit negative negativ Final [facility] Lab (Internal) : [address] ? ? UR ? UA-prot negative negativ Final [facility] Lab (Internal) : [address] ? ? UR ? UA-gluc negative negativ Final [facility] Lab (Internal) : [address] ? ? UR ABNORMA UA-ketone 1+ negativ Final [facility] Lab (Internal) : [address] ? ? UR ? UA-urobil normal normal Final [facility] Lab (Internal) : [address] ? ? UR ? UA-bili negative negativ Final [facility] Lab (Internal) : [address] ? ? UR ? UA-blood negative negativ Final [facility] Lab (Internal) : [address] ? ? UR ? UA-WBC 0-3 [hpf] 0-3 Final [place] [[facility]] [facility] Hospital Lab (Internal) : [address] ? ? UR ? UA-RBC 0-2 [hpf] 0-2 Final [place] [[facility]] [facility] Hospital Lab (Internal) : [address] ? ? UR ? UA-bacter none seen none Final [place] [hpf] seen [facility] [[facility]] Hospital Lab (Internal) : [address] ? ? UR ? UA-epithe rare [hpf] none Final No rth lial seen [facility] [[facility]] Hospital Lab (Internal) : [address] ? ? UR ABNORMA UA-mucus rare [hpf] none Final No rth L seen [facility] [[facility]] Hospital Lab (Internal) : [address] 12/20/2016 Calcium, BLD Low Ionized 0.94 mmol/L 1.12-1. Fin al [place] Ionized, QN, Ca 32 Coun try Blood mmol/L Hospital Lab (Internal) : [address] 12/20/2016 Neutrophil BLD ? Anc-manua 10.79 10*3/uL ? Final [place] Count, l [facility] (Anc), Blood Lab (Internal) : [address] 12/20/2016 Differential, BLD High Polys 90 % 40-75 % Final [facility] Blood Cou [facility] Hospital Lab (Internal) : [address] ? ? BLD ? Bands 1 % 0-5 % Final [facility] Lab (Internal) : [address] ? ? BLD Low Lymphs 8 % 20-50 % Final [facility] Lab (Internal) : [address] ? ? BLD Low Attala 1 % 2-10 % Final [facility] Hospital Lab (Internal) : [address] ? ? BLD ? Eos 0 % 0-6 % Final [facility] Lab (Internal) : [address] ? ? BLD ? Baso 0 % 0-1 % Final [facility] Hospital Lab (Internal) : [address] ? ? BLD ? Atyp 0 % ? Final [place] [facility] Lab (Internal) : [address] ? ? BLD ? Plts, adequate adequat Final [place] Est. e [facility] Hospital Lab (Internal) : [address] ? ? BLD ? RBC normal normal Final [place] Morphology Countr y Hospital Lab (Internal) : [address] 12/20/2016 Troponin I, S ? Trop <0.06 NG/mL 0.00-0. Fi nal [place] Serum or 06 [place] Plasma NG/mL Hospital Lab (Internal) : [address] 12/20/2016 CMP, Serum or S High g/r 196 mg/dL 74-106 Fin al [place] Plasma mg/dL [facility] Hospital Lab (Internal) : [address] ? ? S High Bun 64 mg/dL 9-20 Final [place] mg/dL [facility] Hospital Lab (Internal) : [address] ? ? S High Crea 2.20 mg/dL 0.66-1. Final [place] 25 [place] mg/dL Hospital Lab (Internal) : [address] ? ? S CRITICA Ca 12.6 mg/dL 8.4-10. Final Nort h L HIGH 2 mg/dL [facility] Hospital Lab (Internal) : [address] ? ? S ? Na 138 mmol/L 137-145 Final [place] mmol/L [facility] Hospital Lab (Internal) : [address] ? ? S ? K 5.1 mmol/L 3.5-5.1 Final [place] mmol/L [facility] Hospital Lab (Internal) : [address] ? ? S Low Cl 87 mmol/L 98-107 Final [place] mmol/L [facility] Hospital Lab (Internal) : [address] ? ? S ? Tco2 28.0 mmol/L 22.0-30 Final Nort h .0 [place] mmol/L Hospital Lab (Internal) : [address] ? ? S High Tp 9.2 g/dL 6.3-8.2 Final [place] g/dL [facility] Hospital Lab (Internal) : [address] ? ? S High Alb 5.3 g/dL 3.5-5.0 Final [place] g/dL [facility] Hospital Lab (Internal) : [address] ? ? S ? Tbil 1.2 mg/dL 0.2-1.3 Final [place] mg/dL [place] Hospital Lab (Internal) : [address] ? ? S High Alp 140 U/L 50-136 Final [place] U/L [facility] Hospital Lab (Internal) : [address] ? ? S ? Alt 42 U/L 21-72 Final [place] (Sgpt) U/L [facility] Hospital Lab (Internal) : [address] ? ? S ? Ast 37 U/L 17-59 Final [place] (Sgot) U/L [facility] Hospital Lab (Internal) : [address] 12/20/2016 CBC W/ Auto BLD High Wbc 11.9 10*3/uL 5.0-10. F inal [place] Diff 0 [place] 10*3/uL Hospital Lab (Internal) : [address] ? ? BLD ? Rbc 5.61 10*6/uL 4.60-6. Final Nor th 00 [place] 10*6/uL Hospital Lab (Internal) : [address] ? ? BLD High Hgb 18.9 g/dL 14.0-18 Final [place] .0 g/dL [facility] Lab (Internal) : [address] ? ? BLD High Hct 51.9 % 41.0-51 Final [place] .0 % [facility] Lab (Internal) : [address] ? ? BLD ? Mcv 92.5 fL 80.0-96 Final [place] .0 fL [facility] Lab (Internal) : [address] ? ? BLD High Mch 33.7 pg 26.0-32 Final [place] .0 pg [facility] Lab (Internal) : [address] ? ? BLD High Mchc 36.4 g/dL 31.0-35 Final [place] .0 g/dL [facility] Lab (Internal) : [address] ? ? BLD ? Rdw 11.9 % 11.5-14 Final North .5 % [place] [facility] Lab (Internal) : [address] [place] ? ? BLD ? Plt 332 10*3/uL 130-450 Final Nort h 10*3/uL [place] [facility] Lab (Internal) : [address] 11/18/2016 Lipid Panel, S ? Chol 195 mg/dL 50-200 Veronique l [place] Serum mg/dL [facility] Hospital Lab (Internal) : [address] ? ? S ? Trig 104 mg/dL 10-150 Final [place] mg/dL [facility] Hospital Lab (Internal) : [address] ? ? S ? Hdl 50 mg/dL 40-60 Final [place] mg/dL [facility] Hospital Lab (Internal) : [address] ? ? S ? Ldl 124 mg/dL 0-130 Final [place] mg/dL [facility] Hospital Lab (Internal) : [address] 11/18/2016 Troponin I, S ? Trop <0.06 NG/mL 0.00-0. Fi nal [place] Serum or 06 [place] Plasma NG/mL Hospital Lab (Internal) : [address] 11/18/2016 Lipase, Serum S ? Lip 153 U/L 23-300 Final [place] or Plasma U/L [facility] Hospital Lab (Internal) : [address] 11/18/2016 CMP, Serum or S High g/r 160 mg/dL 74-106 Fin al [place] Plasma mg/dL [facility] Hospital Lab (Internal) : [address] ? ? S High Bun 35 mg/dL 9-20 Final [place] mg/dL [facility] Lab (Internal) : [address] ? ? S High Crea 1.30 mg/dL 0.66-1. Final North 25 [place] mg/dL Hospital Lab (Internal) : [address] ? ? S CRITICA Ca 12.4 mg/dL 8.4-10. Final Nort h L HIGH 2 mg/dL [facility] Hospital Lab (Internal) : [address] ? ? S ? Na 138 mmol/L 137-145 Final [place] mmol/L [facility] Hospital Lab (Internal) : [address] ? ? S ? K 4.4 mmol/L 3.5-5.1 Final [place] mmol/L [facility] Hospital Lab (Internal) : [address] ? ? S Low Cl 91 mmol/L 98-107 Final [place] mmol/L [facility] Lab (Internal) : [address] ? ? S ? Tco2 29.0 mmol/L 22.0-30 Final Nort h .0 [place] mmol/L Hospital Lab (Internal) : [address] [place] ? ? S High Tp 8.6 g/dL 6.3-8.2 Final [place] g/dL [facility] Hospital Lab (Internal) : [address] [place] ? ? S High Alb 5.2 g/dL 3.5-5.0 Final [place] g/dL [place] [facility] Lab (Internal) : [address] [place] ? ? S High Tbil 1.7 mg/dL 0.2-1.3 Final [place] mg/dL [facility] Hospital Lab (Internal) : [address] ? ? S ? Alp 119 U/L 50-136 Final [place] U/L [facility] Hospital Lab (Internal) : [address] ? ? S ? Alt 55 U/L 21-72 Final [place] (Sgpt) U/L [facility] Hospital Lab (Internal) : [address] ? ? S ? Ast 37 U/L 17-59 Final [place] (Sgot) U/L [facility] Hospital Lab (Internal) : [address] [place] [address] 11/18/2016 CBC W/ Auto BLD High Wbc 13.6 10*3/uL 5.0-10. F inal [place] Diff 0 [place] 10*3/uL Hospital Lab (Internal) : [address] ? ? BLD ? Rbc 5.31 10*6/uL 4.60-6. Final Nor th 00 [place] 10*6/uL Hospital Lab (Internal) : [address] ? ? BLD ? Hgb 18.0 g/dL 14.0-18 Final [place] .0 g/dL [facility] Hospital Lab (Internal) : [address] ? ? BLD ? Hct 49.9 % 41.0-51 Final [place] .0 % [facility] Lab (Internal) : [address] ? ? BLD ? Mcv 94.0 fL 80.0-96 Final [place] .0 fL [facility] Lab (Internal) : [address] ? ? BLD High Mch 33.9 pg 26.0-32 Final [place] .0 pg [facility] Lab (Internal) : [address] [place] ? ? BLD High Mchc 36.1 g/dL 31.0-35 Final [place] .0 g/dL [facility] Lab (Internal) : [address] ? ? BLD ? Rdw 11.8 % 11.5-14 Final [place] .5 % [facility] Lab (Internal) : [address] ? ? BLD ? Plt 400 10*3/uL 130-450 Final Nort h 10*3/uL [facility] Lab (Internal) : [address] [place] ? ? BLD ? Anc 10.65 10*3/uL ? Final Nor th [facility] Hospital Lab (Internal) : [address] [place] ? ? BLD High Neutro 78.4 % 40.0-75 Final [place] .0 % [facility] Lab (Internal) : [address] [place] ? ? BLD Low Lymph 14.2 % 20.0-50 Final [place] .0 % [place] [facility] Lab (Internal) : [address] [place] ? ? BLD ? Attala 6.8 % 2.0-10. Final North 0 % [place] Hospital Lab (Internal) : [address] [place] ? ? BLD Low Eos 0.0 % 1.0-6.0 Final North % [facility] Hospital Lab (Internal) : [address] [place] ? ? BLD ? Baso 0.3 % 0.0-1.0 Final North % [facility] Hospital Lab (Internal) : [address] [place] ? ? BLD ? Ig 0.3 % 0.0-0.9 Final North % [facility] Hospital Lab (Internal) : [address] [place] Past Encounters 09/22/2020 Lower Urinary Tract Symptoms Due to Serafin gn Prostatic Hypertrophy; Incomplete Emptying of Bladder; Increased Frequency of Urination; Urgent Desire to Urinate; Nocturia Janny Altman MD: [address] [place] [id number], Ph. Social History Tobacco Smoking Status Former Smoker Notes: Quit in 2012, used to smoke 1 pack/day Vaccine List None recorded. Plan of Care Reminders Provider Appointments None ? ? recorded. Lab None ? ? recorded. Referral None ? ? recorded. Procedures None ? ? recorded. Surgeries None ? ? recorded. Imaging None ? ? recorded. Vitals None recorded.
[2020-11-04 13:30] VITALS: BP 170/109; PULSE 82; RESP 16; O2SAT 98
--- NOTE | 2020-11-04 13:58 | ED.GENADUL_ITS ---
Discharge Plan Disposition Patient Disposition: HOME Condition: Stable Discharge Details Clinical Impression: Low back pain Primary Care Provider: Yoni Ramírez ED Provider: Yuridia London Home Meds and New Rx's Prescriptions: New prednisone 20 mg tablet 60 mg PO DAILY Qty: 12 RF: 0 lidocaine [Lidoderm] 5 % adhesive patch,medicated 1 patch topical DAILY Qty: 15 RF: 0 Continued clonazepam 1 mg Tablet 1 mg PO BID PRNRF: 0 atenolol 25 mg Tablet 25 mg PO DAILY RF: 0 amlodipine 5 mg Tablet 5 mg PO DAILY RF: 0 aspirin 81 mg Tablet,Delayed Release (Dr/Ec) 81 mg PO DAILY RF: 0 acetaminophen [Acetaminophen Extra Strength] 500 mg Tablet 1,000 mg PO TID PRNRF: 0 hydromorphone [Dilaudid] 2 mg Tablet 2 - 4 mg PO DAILY PRNRF: 0 citalopram 20 mg Tablet 20 mg PO DAILY RF: 0 tamsulosin [Flomax] 0.4 mg Capsule 0.8 mg PO QHS RF: 0 prochlorperazine 25 mg Suppository 25 mg ME Q12H PRNRF: 0 pantoprazole 40 mg Tablet,Delayed Release (Dr/Ec) 40 mg PO DAILY RF: 0 ondansetron 4 mg Tablet,Disintegrating 4 mg PO Q8H PRNRF: 0 finasteride 5 mg Tablet 5 mg PO DAILY RF: 0 Narcan 4 mg/actuation [place],Non-Aerosol 4 mg INTRANASAL Q2-3M PRNRF: 0 Citracal-D3 Maximum Plus 325 mg-12.5 mcg -2.75 mg Tablet 2 tab PO DAILY RF: 0 Discharge Instructions Instructions: Low Back Strain (ED) Additional Instructions: Please return immediately to the emergency department if you develop any new or worsening symptoms, if your condition does not improve as expected, or if you become otherwise concerned. It is extremely important that you call soon as possible to make an appointment to be seen in follow-up for this visit by your primary care doctor. Referrals: Yoni Ramírez [Primary Care Provider] - Discharge Data Discharge Date/Time-TO BE ENTERED AT DEPARTURE: 11/04/20 16:04 Medical Decision Making Jeff Arreguin is a 55-year-old man with history of hypertension, hyperlipidemia who presented to emergency department with midline lower back pain since falling on ice 2 days ago with new associated constipation and difficulty urinating. On exam patient is well and nontoxic-appearing. Motor is 5 out of 5 bilateral legs, normal sensation of the lower extremities. Gait is slow but otherwise normal. There is significant tenderness to palpation without overlying skin changes of the lumbar spine with point tenderness at approximately L5. No paraspinal tenderness to palpation. No abdominal tenderness to palpation. Concern for fracture, possible cauda equina given new bowel/bladder symptoms. Exam/history at this time is not consistent with acute aortic pathology, acute emergent intra-abdominal process, emergent process of the cervical or thoracic spine, infectious etiology of pain, UTI. Plan for MRI, IV morphine for pain control. MRI shows disc hermiation, negative for emergent condition. Plan for prednisone, Lidoderm patch, outpatient follow-up with PCP. I had a lengthy discussion with Patient regarding return to emergency department precautions, home care, and importance of outpatient follow-up. Pt verbalizes understanding of the plan and is amenable. Patient discharged to home with clear plan for outpatient follow-up. All questions were answered. Disposition decision was made weighing the risks and benefits of hospitalization versus outpatient treatment, the risk for further decompensation, and the patient's wishes. Medical Records Medical records reviewed: Yes I reviewed the patient's medical records. Imaging Data Radiologic Study: Attestation: I personally reviewed and interpreted this imaging study as follows: Radiologist's impression: EXAM: MR LUMBAR SPINE WO CLINICAL HISTORY: back pain, trauma, constipation and urinary diffic. TECHNIQUE: Multiplanar multisequence MRI of the Lumbar spine was performed. COMPARISON: CT CT ABDOMEN PELVIS W from 10/06/2020 there are no plain films of cervical spine available at time of this MRI interpretation. FINDINGS: Five lumbar vertebrae are presumed. Conus medullaris is at normal level. There is no evidence of conus mass nor subjacent clumping of intrathecal nerve roots to suggest arachnoiditis. The distal thecal sac appears unremarkable.There is no evidence of Tarlov intrasacral cysts nor other significant findings within the sacral canal Bones:There are no fractures nor ominous osseous lesions in the lumbar vertebral bodies and visualized sacrum. With respect to the individual levels... T12-L1: Unremarkable L1-2: Normal disc height and signal. No disc herniation nor central canal stenosis.No foraminal stenosis L2-3: Normal disc height. No disc herniation nor central canal stenosis.No foraminal stenosis.No facet arthropathy. L3-4: Normal disc height. No significant disc herniation or central canal stenosis.No foraminal stenosis.No facet arthropathy. L4-5: Normal disc height and signal. There is symmetrical annular bulging which slightly flattens the anterior thecal sac. Central canal dimensions are lower normal. There is no distinct focal disc herniation. No significant foraminal stenosis. No significant facet arthropathy. L5-S1: Slightly decreased disc height. At this level there is a posterolateral right disc herniation which extends posteriorly 5 millimeters and is approximately 7 millimeters wide. This occupies the right lateral recess and contacts the anterior right side of the thecal sac and extends slightly into the floor of the exiting right neural foramen but without significant foraminal stenosis. There is mild foraminal stenosis in the AP dimension on both sides at this level due to short AP dimensions the pedicles, this being developmental. There is no significant facet arthropathy. No ligamentum flavum hypertrophy. Soft tissues: paraspinal soft tissues appear unremarkable. IMPRESSION: 1. At L5-S1 level there is a posterolateral right disc herniation as described above. There is mild mass effect in the right lateral recess. No prominent central canal stenosis nor prominent foraminal stenosis. There are no other disc herniations evident. 2. No acute fractures nor significant osseous lesions. HPI General Mode of arrival: ambulatory . Date/Time Provider Initiated Documentation: 11/04/20 13:10 . Limitations to Documentation: no limitations . Information obtained by: patient, RN notes reviewed and old records reviewed . HPI Narrative: Jeff Arreguin is a 55-year-old man hypertension, hyperlipidemia who presents emergency department with low back pain. Patient reports that 4 days ago he slipped on ice fell, landing on his tailbone. Patient reports that he has had severe pain in his middle lower back (points to approximately L5/S1 area) since that time. Patient reports that he has been taking his Dilaudid more frequently than as prescribed for this pain and ran out of medication this morning. Patient reports that he is due for refill in 1 week. Patient states the pain is worse with sitting and walking. He denies any radiation of the pain, denies abdominal pain, leg pain, any other pain. He denies numbness or weakness in his legs or arms,, including saddle region. Patient reports that he has a history of prostate issues and does have urinary hesitancy at baseline, however he states that it seems that it has been harder for him to push his urine out than usual. Patient also reports that he has had new onset constipation since the accident 4 days ago. He denies fevers, skin wound, rash, vomiting, diarrhea, shortness of breath, cough. Patient states that he has been eating and drinking as usual. Related Data Home Medications Medication Instructions Recorded Confirmed Citracal-D3 Maximum Plus 2 tab PO DAILY 10/06/20 11/04/20 Narcan 4 mg INTRANASAL Q2-3M PRN 10/06/20 11/04/20 acetaminophen [Acetaminophen Extra 1,000 mg PO TID PRN 10/06/20 11/04/20 Strength] amlodipine 5 mg PO DAILY 10/06/20 11/04/20 aspirin 81 mg PO DAILY 10/06/20 11/04/20 atenolol 25 mg PO DAILY 10/06/20 11/04/20 citalopram 20 mg PO DAILY 10/06/20 11/04/20 clonazepam 1 mg PO BID PRN 10/06/20 11/04/20 finasteride 5 mg PO DAILY 10/06/20 11/04/20 hydromorphone [Dilaudid] 2 - 4 mg PO DAILY PRN 10/06/20 11/04/20 ondansetron 4 mg PO Q8H PRN 10/06/20 11/04/20 pantoprazole 40 mg PO DAILY 10/06/20 11/04/20 prochlorperazine 25 mg ME Q12H PRN 10/06/20 11/04/20 tamsulosin [Flomax] 0.8 mg PO QHS 10/06/20 11/04/20 lidocaine [Lidoderm] 1 patch TOPICAL DAILY #15 ea 11/04/20 prednisone 60 mg PO DAILY #12 tab 11/04/20 Previous Rx's Medication Instructions Recorded lidocaine [Lidoderm] 1 patch TOPICAL DAILY #15 ea 11/04/20 prednisone 60 mg PO DAILY #12 tab 11/04/20 Allergies Allergy/AdvReac Type Severity Reaction Status Date / Time escitalopram [From Lexapro] Allergy Skin Rash Unverified 11/04/20 13:07 General Stated Complaint: Nk/Back Pain CHICO: 3 Review of Systems Narrative: Constitutional: denies fevers Eyes: denies eye pain ENT: denies ear pain, dental pain, sore throat Cardiovascular: denies chest pain Respiratory: denies SOB, cough GI: denies abdominal pain, vomiting, diarrhea, reports constipation : denies flank pain, dysuria, report increase difficulty urinating from baseline MSK: denies neck pain, arthralgias, myalgias, reports back pain Skin: denies rash Neuro: denies headaches, numbness, weakness PFSH Medical History HTN (hypertension) Hx of hyperlipidemia Surgical History (Updated 10/06/20 @ 10:44 by Katrin Bowser DO) Hx of cholecystectomy Social History Smoking/Tobacco Use Status: Former Tobacco Use Smoking risk assessment performed?: Yes Alcohol Intake: never Drug use: Occasionally Substance use type: marijuana Do you feel safe at home: Yes Do you feel safe in your relationship?: Yes Exam Narrative Exam Narrative: Constitutional: well and [id number], pleasant, conversing normally HENT: head atraumatic/normocephalic/normal inspection, mucous membranes moist Eyes: conjunctiva normal, sclera normal, pupils 3mm b/l Neck: no stridor, normal ROM, trachea midline Resp: normal work of breathing, speaking in full sentences Cardio: normal rate, normal rhythm GI: abdomen soft, non-tender, non-distended Back: normal inspection, no rash, significant tenderness to palpation without overlying skin changes of the lumbar spine with point tenderness at approximately L5, no paraspinal tenderness to palpation Skin: warm, dry, normal color, no rash Neuro: alert, not altered, grossly non-focal with motor 5 out of 5 bilateral legs, normal sensation bilateral legs, normal tone, slow but otherwise normal gait, moves from sitting to standing position without issue Ext: no edema Psych: normal mood, normal affect, normal behavior Course Vital Signs Vital signs: Vital Signs Temperature 36.7 C 11/04/20 13:01 Pulse 83 11/04/20 13:01 Respiratory Rate 16 11/04/20 13:01 Blood Pressure 144/105 H 11/04/20 13:01 Pulse Oximetry 99 11/04/20 13:01 Temperature 36.7 C 11/04/20 13:01 Temperature Source Temporal Artery Scan 11/04/20 13:01 Pulse 82 11/04/20 13:30 Respiratory Rate 16 11/04/20 13:30 Respiratory Effort Non-Labored 11/04/20 13:06 Blood Pressure 170/109 H 11/04/20 13:30 Blood Pressure Position Sitting 11/04/20 13:01 Pulse Oximetry 98 11/04/20 13:30 Oxygen Delivery Method Room Air 11/04/20 13:30 Oxygen Flow Rate 0 11/04/20 13:30 Pain Level 9 11/04/20 13:30
--- NOTE | 2020-11-04 14:50 | DI.MRI_ITS ---
EXAM: MR LUMBAR SPINE WO CLINICAL HISTORY: back pain, trauma, constipation and urinary diffic. TECHNIQUE: Multiplanar multisequence MRI of the Lumbar spine was performed. COMPARISON: CT CT ABDOMEN PELVIS W from 10/06/2020 there are no plain films of cervical spine avai lable at time of this MRI interpretation. FINDINGS: Five lumbar vertebrae are presumed. Conus medullaris is at normal level. There is no evidence of conus mass nor subjacent clumping of in trathecal nerve roots to suggest arachnoiditis. The distal thecal sac appears unremarkable.There is no evidence of Tarlov intrasacral cysts nor other significant findings within the sacral canal Bones:There are no fractures nor ominous osseous lesions in the lumbar vertebral bodies and visualize d sacrum. With respect to the individual levels... T12-L1: Unremarkable L1-2: Normal disc height and signal. No disc herniation nor central canal stenosis.No foraminal steno sis L2-3: Normal disc height. No disc herniation nor central canal stenosis.No foraminal stenosis.No face t arthropathy. L3-4: Normal disc height. No significant disc herniation or central canal stenosis.No foraminal sten osis.No facet arthropathy. L4-5: Normal disc height and signal. There is symmetrical annular bulging which slightly flattens th e anterior thecal sac. Central canal dimensions are lower normal. There is no distinct focal disc h erniation. No significant foraminal stenosis. No significant facet arthropathy. L5-S1: Slightly decreased disc height. At this level there is a posterolateral right disc herniation which extends posteriorly 5 millimeters and is approximately 7 millimeters wide. This occupies the right lateral recess and contacts the anterior right side of the thecal sac and extends slightly into the floor of the exiting right neural foramen but without significant foraminal stenosis. There is mild foraminal stenosis in the AP dimension on both sides at this level due to short AP dimensions th e pedicles, this being developmental. There is no significant facet arthropathy. No ligamentum flav um hypertrophy. Soft tissues: paraspinal soft tissues appear unremarkable. IMPRESSION: 1. At L5-S1 level there is a posterolateral right disc herniation as described above. There is mild mass effect in the right lateral recess. No prominent central canal stenosis nor prominent foraminal stenosis. There are no other disc herniations evident. 2. No acute fractures nor significant osseous lesions. DATA REPOSITORY:
[2020-11-04 15:05] VITALS: RESP 12
[2020-11-04 15:41] VITALS: BP 116/84; PULSE 110; RESP 12; O2SAT 97
== END 2020-11-04 16:04 | disposition home or self-care (01) ==
PROVIDERS: Emergency Provider Student in an Organized Health Care Education/Training Program; PCP Internal Medicine
DX: M54.5 Low back pain (principal); W00.0XXA Fall on same level due to ice and snow, initial encounter; K59.00 Constipation, unspecified
CPT/HCPCS: 96374; 99284; 72148

== ENCOUNTER 2021-05-16 19:26 | Outpatient (REF) | payer MEDICARE, SELFPAY ==
[2021-05-16 20:32] LABS: ALT 21 U/L (16-63); AST 17 U/L (15-37); Alkaline Phosphatase 83 U/L (46-116); Anion Gap 8.2 mmol/L (3-11); BUN 16 mg/dL (7-18); Bilirubin, Total 0.5 mg/dL (0.2-1.0); CO2 27.8 mmol/L (21.0-32.0); CREATININE 1.1 mg/dL (0.70-1.30); Chloride 107 mmol/L (98-107); Glucose 89 mg/dL (74-106); Potassium 3.8 mmol/L (3.5-5.1); Sodium 143 mmol/L (136-145); Total Protein 6.5 g/dL (6.4-8.2)
[2021-05-18 14:46] LABS: ANA Interpretation Positive (Negative); ANA Titer Pattern 1:80 Homogeneous
[2021-05-18 16:56] LABS: Mitochondrial Ab, M2 <0.1 U
== END 2021-05-16 19:27 | disposition home or self-care (01) ==
LOC: NCHCN 19:26
PROVIDERS: PCP Internal Medicine; Visit Provider Internal Medicine
DX: I47.1 Supraventricular tachycardia (principal); F41.0 Panic disorder [episodic paroxysmal anxiety]; M16.51 Unilateral post-traumatic osteoarthritis, right hip
CPT/HCPCS: 80053; 83516; 86038

== ENCOUNTER 2021-05-19 09:29 | Outpatient (CLI) | payer MEDICARE, SELFPAY ==
--- NOTE | 2021-05-19 09:15 | RT.EKG_ITS ---
APPROVED REPORT Exam: Resting ECG Reason for Exam: SVT, Afib Patient Location: O HR:53 bpm ECG Measurements Heart Rate 53 AXIS DC 145 P 48 QRSd 90 QRS -9 QT 443 T 28 QTc 416 Conclusion Sinus rhythm...normal P axis, V-rate 50- 99 Probable left atrial enlargement...P >50mS, <-0.10mV V1 Otherwise normal
== END 2021-05-19 09:30 | disposition home or self-care (01) ==
LOC: DI.CARD 09:30
PROVIDERS: PCP Internal Medicine; Visit Provider Internal Medicine Cardiovascular Disease
DX: I47.1 Supraventricular tachycardia (principal); I48.0 Paroxysmal atrial fibrillation
CPT/HCPCS: 93010

== ENCOUNTER → 2021-05-19 12:41 | Outpatient (BNVA) | payer MEDICARE, SELFPAY | PROVIDERS: PCP Internal Medicine; Referring Provider Internal Medicine; Visit Provider Internal Medicine Cardiovascular Disease | DX: I47.1 Supraventricular tachycardia (principal); E78.5 Hyperlipidemia, unspecified; I10 Essential (primary) hypertension; F41.0 Panic disorder [episodic paroxysmal anxiety] | CPT/HCPCS: 93005; 99203; 99213 ==

== ENCOUNTER 2021-09-09 02:00 | Outpatient (CLI) | payer MEDICARE, SELFPAY | END 2021-09-09 02:20 | PROVIDERS: PCP Internal Medicine; Visit Provider Internal Medicine ==

== ENCOUNTER 2021-10-06 14:50 | Outpatient (REF) | payer MEDICARE, SELFPAY ==
--- NOTE | 2021-10-06 14:48 | PAPNONF_PTH ---
PATIENT: Jeff Arreguin LOC: [facility] U#:[id number] AGE/SX: 56/M ROOM: RE10/06/[address]: Aguila Altman : 1965 BED: DIS: 10/06/2021 SPEC #: [id number] RECD: 10/07/21 11:46 STATUS: RAMBO REAl #: [id number] ISAIAH: 10/06/21 14:[address]: Aguila Altman DEPT: [facility] Cytology RECD BY: Génesis Dinero ENTERED: 10/07/21 11:46 SP TYPE: CHILO NEWBY DR: Yoni Ramírez Tissues: 1 - BODY FLUID CYTO(SPUTUM/URINE)[facility] Procedures: BODY FLUID CYTO(URINE/SPUTUM) Comments: [id number] (TOTAL VOLUME = 50 ml) (50 ml URINE & 50 ml CYTOLYT ADDED)
[2021-10-07 17:41] LABS: PSA, Screening 2.1 ng/mL (0.0-3.5)
== END 2021-10-06 14:51 | disposition home or self-care (01) ==
LOC: LBN 14:50
PROVIDERS: PCP Internal Medicine; Visit Provider Urology
DX: F41.8 Other specified anxiety disorders (principal); F41.0 Panic disorder [episodic paroxysmal anxiety]; R33.9 Retention of urine, unspecified; N40.1 Benign prostatic hyperplasia with lower urinary tract symptoms; Z12.5 Encounter for screening for malignant neoplasm of prostate
CPT/HCPCS: 84153; 88104

== ENCOUNTER 2021-11-22 03:13 | Outpatient (CLI) | payer SELFPAY | END 2021-11-22 03:14 | disposition home or self-care (01) | PROVIDERS: PCP Internal Medicine; Visit Provider Internal Medicine ==

== ENCOUNTER → 2021-11-25 00:26 | Outpatient (CLI) | payer MEDICARE, MEDICAID, SELFPAY | PROVIDERS: PCP Internal Medicine; Visit Provider Internal Medicine | CPT/HCPCS: 80053; 84153; 84403; 85025 ==

== ENCOUNTER 2021-11-25 02:20 | Outpatient (CLI) | payer SELFPAY | END 2021-11-25 02:21 | disposition home or self-care (01) | LOC: LBO 02:20 | PROVIDERS: PCP Internal Medicine; Visit Provider Internal Medicine ==

== ENCOUNTER 2022-01-31 13:09 | Outpatient (CLI) | payer MEDICARE, MEDICAID, SELFPAY ==
[2022-01-31 13:15] LABS: Abs Immature Grans 0.05 10^3/uL (0.0-0.06); Absolute Basophil Count 0.03 10^3/uL (0.0-0.2); Absolute Eosinophil Count 0.18 10^3/uL (0.0-0.7); Absolute Lymphocyte Count 1.94 10^3/uL (1.2-3.4); Absolute Monocyte Count 0.58 10^3/uL (0.1-0.8); Absolute Neutrophil Count 7.42 10^3/uL (1.2-6.7); Basophils % 0.3; Eosinophils % 1.8; HCT 40.1 % (40.0-50.0); HGB 13.5 g/dL (13.5-17.5); Immature Grans % 0.5; MCH 32.4 pg (27.0-33.0); MCHC 33.7 % (32.0-36.0); MCV 96 fL (80-95); MPV 9.4 fL (8.0-11.0); Monocytes % 5.7; Neutrophils % 72.7; Platelet Count 265 10^3/uL (130-400); RBC 4.17 10^6/uL (4.36-5.78); RDW 13.8 % (11.8-14.1); RDW-SD 48.9 fL
[2022-01-31 13:31] LABS: ALT 26 U/L (16-63); AST 19 U/L (15-37); Albumin 4.5 g/dL (3.4-5.0); Alkaline Phosphatase 83 U/L (46-116); Anion Gap 11.5 mmol/L (3-11); BUN 29 mg/dL (7-18); Bilirubin, Total 0.8 mg/dL (0.2-1.0); CO2 25.5 mmol/L (21.0-32.0); CREATININE 1.2 mg/dL (0.70-1.30); Calcium 8.9 mg/dL (8.5-10.1); Chloride 102 mmol/L (98-107); Glucose 148 mg/dL (74-106); Sodium 139 mmol/L (136-145); Total Protein 7.6 g/dL (6.4-8.2)
[2022-02-01 17:10] LABS: PSA, Ultrasensitive 0.95 ng/mL (<= 3.5)
[2022-02-04 01:44] LABS: Testosterone, Total 17 ng/dL (240-950)
== END 2022-01-31 13:10 | disposition home or self-care (01) ==
LOC: LBO 13:10
PROVIDERS: PCP Internal Medicine; Visit Provider Internal Medicine
DX: C61 Malignant neoplasm of prostate (principal)
CPT/HCPCS: 36415; 80053; 84153; 84403; 85025

== ENCOUNTER 2022-01-31 14:39 | Outpatient (REF) | payer MEDICARE, MEDICAID, SELFPAY ==
--- NOTE | 2022-01-31 12:55 | PAPNONF_PTH ---
PATIENT: Jeff Arreguin LOC: [facility] U#:[id number] AGE/SX: 56/M ROOM: RE01/31/[address]: Aguila Altman : 1965 BED: DIS: 01/31/2022 SPEC #: [id number] RECD: 01/31/22 17:29 STATUS: RAMBO COPELAND #: [id number] ISAIAH: 01/31/22 12:[address]: Aguila Altman DEPT: [facility] Cytology RECD BY: Génesis Dinero ENTERED: 01/31/22 17:30 SP TYPE: CHILO NEWBY DR: Yoni Ramírez Tissues: 1 - BODY FLUID CYTO(SPUTUM/URINE)[facility] Procedures: BODY FLUID CYTO(URINE/SPUTUM) Comments: [id number] (TOTAL VOLUME = 40 ml) (40 ml URINE & 40 ml CYTOLYT ADDED)
== END 2022-01-31 14:40 | disposition home or self-care (01) ==
LOC: LBN 14:39
PROVIDERS: PCP Internal Medicine; Visit Provider Urology
DX: R33.9 Retention of urine, unspecified (principal); R82.89 Other abnormal findings on cytological and histological examination of urine
CPT/HCPCS: 88104

== ENCOUNTER 2022-02-16 20:45 | Outpatient (REF) | payer MEDICARE, MEDICAID, SELFPAY ==
[2022-02-16 18:57] LABS: Anion Gap 10.5 mmol/L (3-11); BUN 26 mg/dL (7-18); CO2 27.5 mmol/L (21.0-32.0); CREATININE 1.5 mg/dL (0.70-1.30); Calcium 8.5 mg/dL (8.5-10.1); Chloride 97 mmol/L (98-107); Estimated GFR 48.07 (mL/min/1.73m2); Glucose 102 mg/dL (74-106); Potassium 4.6 mmol/L (3.5-5.1); Sodium 135 mmol/L (136-145)
== END 2022-02-16 20:46 | disposition home or self-care (01) ==
LOC: NCHCN 20:45
PROVIDERS: PCP Internal Medicine; Visit Provider Internal Medicine
DX: N17.9 Acute kidney failure, unspecified (principal)
CPT/HCPCS: 80048

== ENCOUNTER 2022-02-28 01:56 | Outpatient (CLI) | payer MEDICARE, MEDICAID, SELFPAY ==
[2022-02-28 10:02] LABS: Abs Immature Grans 0.04 10^3/uL (0.0-0.06); Absolute Basophil Count 0.03 10^3/uL (0.0-0.2); Absolute Eosinophil Count 0.18 10^3/uL (0.0-0.7); Absolute Lymphocyte Count 2.93 10^3/uL (1.2-3.4); Absolute Monocyte Count 0.75 10^3/uL (0.1-0.8); Absolute Neutrophil Count 5.09 10^3/uL (1.2-6.7); Basophils % 0.3; Immature Grans % 0.4; Lymphocytes % 32.5; MCH 32.9 pg (27.0-33.0); MCHC 34.2 % (32.0-36.0); MCV 96 fL (80-95); Monocytes % 8.3; Neutrophils % 56.5; Platelet Count 355 10^3/uL (130-400); RBC 3.95 10^6/uL (4.36-5.78); RDW 12.8 % (11.8-14.1); RDW-SD 45.6 fL; WBC 9.02 10^3/uL (4.4-10.8)
[2022-02-28 10:15] LABS: ALT 25 U/L (16-63); AST 15 U/L (15-37); Albumin 4.1 g/dL (3.4-5.0); Alkaline Phosphatase 75 U/L (46-116); Anion Gap 7.6 mmol/L (3-11); BUN 20 mg/dL (7-18); Bilirubin, Total 0.9 mg/dL (0.2-1.0); CO2 28.4 mmol/L (21.0-32.0); CREATININE 1.2 mg/dL (0.70-1.30); Calcium 8.9 mg/dL (8.5-10.1); Chloride 103 mmol/L (98-107); Glucose 120 mg/dL (74-106); Potassium 4.3 mmol/L (3.5-5.1); Sodium 139 mmol/L (136-145); Total Protein 7.3 g/dL (6.4-8.2)
[2022-03-05 18:52] LABS: Testosterone, Total <7.0 ng/dL (240-950)
== END 2022-02-28 01:57 | disposition home or self-care (01) ==
LOC: LBO 01:57
PROVIDERS: PCP Internal Medicine; Visit Provider Internal Medicine
DX: C61 Malignant neoplasm of prostate (principal)
CPT/HCPCS: 36415; 80053; 84153; 84403; 85025

== ENCOUNTER 2022-04-25 16:23 | Outpatient (CLI) | payer MEDICARE, MEDICAID, SELFPAY ==
[2022-04-25 13:28] LABS: Abs Immature Grans 0.06 10^3/uL (0.0-0.06); Absolute Basophil Count 0.01 10^3/uL (0.0-0.2); Absolute Lymphocyte Count 1.67 10^3/uL (1.2-3.4); Absolute Monocyte Count 0.81 10^3/uL (0.1-0.8); Absolute Neutrophil Count 11.34 10^3/uL (1.2-6.7); Basophils % 0.1; HCT 37.5 % (40.0-50.0); HGB 12.7 g/dL (13.5-17.5); Immature Grans % 0.4; MCH 33.2 pg (27.0-33.0); MCHC 33.9 % (32.0-36.0); MCV 98 fL (80-95); MPV 9.5 fL (8.0-11.0); Monocytes % 5.8; Neutrophils % 81.7; Platelet Count 349 10^3/uL (130-400); RBC 3.83 10^6/uL (4.36-5.78); RDW 11.9 % (11.8-14.1); RDW-SD 43.1 fL; WBC 13.88 10^3/uL (4.4-10.8)
[2022-04-25 13:53] LABS: ALT 27 U/L (16-63); AST 16 U/L (15-37); Albumin 3.8 g/dL (3.4-5.0); Alkaline Phosphatase 113 U/L (46-116); Anion Gap 9.2 mmol/L (3-11); BUN 22 mg/dL (7-18); Bilirubin, Total 0.7 mg/dL (0.2-1.0); CO2 26.8 mmol/L (21.0-32.0); CREATININE 1.1 mg/dL (0.70-1.30); Calcium 8.3 mg/dL (8.5-10.1); Chloride 101 mmol/L (98-107); Estimated GFR 77.81 (mL/min/1.73m2); Glucose 132 mg/dL (74-106); Potassium 4.1 mmol/L (3.5-5.1); Sodium 137 mmol/L (136-145); Total Protein 7.3 g/dL (6.4-8.2)
[2022-04-27 14:02] LABS: PSA, Ultrasensitive 0.08 ng/mL (<= 3.5)
[2022-04-28 23:18] LABS: Testosterone, Total <7.0 ng/dL (240-950)
== END 2022-04-25 16:24 | disposition home or self-care (01) ==
LOC: LBO 16:29
PROVIDERS: PCP Internal Medicine; Visit Provider Internal Medicine
DX: C61 Malignant neoplasm of prostate (principal)
CPT/HCPCS: 36415; 80053; 84153; 84403; 85025

== ENCOUNTER 2022-06-06 14:48 | Outpatient (CLI) | payer MEDICARE, MEDICAID, SELFPAY ==
[2022-06-06 15:07] LABS: Abs Immature Grans 0.02 10^3/uL (0.0-0.06); Absolute Basophil Count 0.02 10^3/uL (0.0-0.2); Absolute Eosinophil Count 0.18 10^3/uL (0.0-0.7); Absolute Lymphocyte Count 1.34 10^3/uL (1.2-3.4); Absolute Monocyte Count 0.53 10^3/uL (0.1-0.8); Absolute Neutrophil Count 3.94 10^3/uL (1.2-6.7); Basophils % 0.3; HCT 34.2 % (40.0-50.0); HGB 11.5 g/dL (13.5-17.5); Immature Grans % 0.3; Lymphocytes % 22.2; MCH 33.8 pg (27.0-33.0); MCHC 33.6 % (32.0-36.0); MCV 101 fL (80-95); MPV 9.4 fL (8.0-11.0); Monocytes % 8.8; Neutrophils % 65.4; Platelet Count 206 10^3/uL (130-400); RDW 12.1 % (11.8-14.1); RDW-SD 44.3 fL; WBC 6.03 10^3/uL (4.4-10.8)
[2022-06-06 15:27] LABS: ALT 22 U/L (16-63); AST 19 U/L (15-37); Albumin 3.8 g/dL (3.4-5.0); Alkaline Phosphatase 84 U/L (46-116); Anion Gap 6.9 mmol/L (3-11); BUN 14 mg/dL (7-18); Bilirubin, Total 0.5 mg/dL (0.2-1.0); CO2 28.1 mmol/L (21.0-32.0); CREATININE 1.1 mg/dL (0.70-1.30); Calcium 8.4 mg/dL (8.5-10.1); Chloride 103 mmol/L (98-107); Estimated GFR 77.81 (mL/min/1.73m2); Glucose 73 mg/dL (74-106); Potassium 3.5 mmol/L (3.5-5.1); Sodium 138 mmol/L (136-145); Total Protein 6.8 g/dL (6.4-8.2)
[2022-06-07 17:21] LABS: PSA, Ultrasensitive 0.09 ng/mL (<= 3.5)
[2022-06-08 16:26] LABS: Testosterone, Total <7.0 ng/dL (240-950)
== END 2022-06-06 14:49 | disposition home or self-care (01) ==
PROVIDERS: PCP Internal Medicine; Visit Provider Internal Medicine
DX: C61 Malignant neoplasm of prostate (principal)
CPT/HCPCS: 36415; 80053; 84153; 84403; 85025

== ENCOUNTER 2022-07-19 12:46 | Outpatient (CLI) | payer MEDICARE, MEDICAID, SELFPAY ==
[2022-07-19 14:30] LABS: Abs Immature Grans 0.02 10^3/uL (0.0-0.06); Absolute Basophil Count 0.02 10^3/uL (0.0-0.2); Absolute Eosinophil Count 0.22 10^3/uL (0.0-0.7); Absolute Lymphocyte Count 0.77 10^3/uL (1.2-3.4); Absolute Monocyte Count 0.61 10^3/uL (0.1-0.8); Absolute Neutrophil Count 4.61 10^3/uL (1.2-6.7); Basophils % 0.3; Eosinophils % 3.5; HCT 36.2 % (40.0-50.0); HGB 12.2 g/dL (13.5-17.5); Immature Grans % 0.3; Lymphocytes % 12.3; MCH 33.3 pg (27.0-33.0); MCHC 33.7 % (32.0-36.0); MCV 99 fL (80-95); MPV 8.6 fL (8.0-11.0); Monocytes % 9.8; Neutrophils % 73.8; Platelet Count 287 10^3/uL (130-400); RBC 3.66 10^6/uL (4.36-5.78); RDW 12.5 % (11.8-14.1); RDW-SD 45.7 fL; WBC 6.25 10^3/uL (4.4-10.8)
[2022-07-19 14:47] LABS: ALT 30 U/L (16-63); AST 23 U/L (15-37); Albumin 3.6 g/dL (3.4-5.0); Alkaline Phosphatase 76 U/L (46-116); Anion Gap 9.5 mmol/L (3-11); BUN 13 mg/dL (7-18); Bilirubin, Total 0.5 mg/dL (0.2-1.0); CO2 26.5 mmol/L (21.0-32.0); Calcium 8.3 mg/dL (8.5-10.1); Chloride 104 mmol/L (98-107); Glucose 104 mg/dL (74-106); Potassium 4.5 mmol/L (3.5-5.1); Sodium 140 mmol/L (136-145); Total Protein 6.5 g/dL (6.4-8.2)
[2022-07-20 22:08] LABS: PSA, Ultrasensitive 0.06 ng/mL (<= 3.5)
[2022-07-24 15:59] LABS: Testosterone, Total <7.0 ng/dL (240-950)
== END 2022-07-19 12:47 | disposition home or self-care (01) ==
LOC: LBO 12:48
PROVIDERS: PCP Internal Medicine; Visit Provider Internal Medicine
DX: C61 Malignant neoplasm of prostate (principal)
CPT/HCPCS: 36415; 80053; 84153; 84403; 85025

== ENCOUNTER 2022-10-27 20:04 | Outpatient (REF) | payer MEDICARE, MEDICAID, SELFPAY ==
[2022-10-27 20:45] LABS: ALT 40 U/L (16-63); AST 25 U/L (15-37); Albumin 3.8 g/dL (3.4-5.0); Alkaline Phosphatase 95 U/L (46-116); Anion Gap 6.5 mmol/L (3-11); BUN 17 mg/dL (7-18); Bilirubin, Total 0.4 mg/dL (0.2-1.0); CO2 28.5 mmol/L (21.0-32.0); Chloride 102 mmol/L (98-107); Glucose 127 mg/dL (74-106); NT-proBNP 154 pg/mL (<300); Potassium 4.4 mmol/L (3.5-5.1); Sodium 137 mmol/L (136-145)
[2022-10-27 20:51] LABS: Bilirubin Negative (Negative); Blood Negative (Negative); Clarity Clear (Clear); Glucose Negative (Negative); Ketones Negative (Negative); Leukocyte Esterase Negative (Negative); Nitrite Negative (Negative); Urobilinogen 0.2 mg/dL (Up to 0.2); pH 8.5 (5-8)
[2022-10-27 21:01] LABS: COMMENT (LAB VIEW ONLY) 155.91 mg/dL; PROTEIN 22.2 mg/dL; Prot/Crea Ur Ratio 0.14
== END 2022-10-27 20:05 | disposition home or self-care (01) ==
LOC: NCHCN 20:04
PROVIDERS: PCP Internal Medicine; Visit Provider Internal Medicine
DX: R60.0 Localized edema (principal); N40.1 Benign prostatic hyperplasia with lower urinary tract symptoms; N17.9 Acute kidney failure, unspecified; R06.89 Other abnormalities of breathing
CPT/HCPCS: 80053; 81003; 82565; 83880; 84156

== ENCOUNTER 2022-12-19 15:49 | Outpatient (CLI) | payer MEDICARE, MEDICAID, SELFPAY ==
[2022-12-19 16:01] LABS: Abs Immature Grans 0.02 10^3/uL (0.0-0.06); Absolute Basophil Count 0.03 10^3/uL (0.0-0.2); Absolute Eosinophil Count 0.14 10^3/uL (0.0-0.7); Absolute Lymphocyte Count 1.04 10^3/uL (1.2-3.4); Absolute Monocyte Count 0.56 10^3/uL (0.1-0.8); Absolute Neutrophil Count 4.48 10^3/uL (1.2-6.7); Basophils % 0.5; Eosinophils % 2.2; HCT 36.2 % (40.0-50.0); HGB 12.1 g/dL (13.5-17.5); Immature Grans % 0.3; Lymphocytes % 16.6; MCH 32.4 pg (27.0-33.0); MCHC 33.4 % (32.0-36.0); MCV 97 fL (80-95); MPV 9.7 fL (8.0-11.0); Monocytes % 8.9; Neutrophils % 71.5; Platelet Count 314 10^3/uL (130-400); RBC 3.73 10^6/uL (4.36-5.78); RDW 13.2 % (11.8-14.1); RDW-SD 47.1 fL; WBC 6.27 10^3/uL (4.4-10.8)
[2022-12-19 18:01] LABS: ALT 31 U/L (16-63); AST 21 U/L (15-37); Albumin 3.8 g/dL (3.4-5.0); Alkaline Phosphatase 87 U/L (46-116); Anion Gap 10.8 mmol/L (3-11); BUN 9 mg/dL (7-18); Bilirubin, Total 0.4 mg/dL (0.2-1.0); CO2 25.2 mmol/L (21.0-32.0); Calcium 8.3 mg/dL (8.5-10.1); Chloride 105 mmol/L (98-107); Glucose 107 mg/dL (74-106); Potassium 4.5 mmol/L (3.5-5.1); Sodium 141 mmol/L (136-145); Total Protein 6.8 g/dL (6.4-8.2)
[2022-12-22 12:32] LABS: PSA, Ultrasensitive 0.03 ng/mL (<= 3.5)
[2022-12-24 14:10] LABS: Testosterone, Total 9.6 ng/dL (240-950)
== END 2022-12-19 15:50 | disposition home or self-care (01) ==
LOC: LBO 15:50
PROVIDERS: PCP Internal Medicine; Visit Provider Nurse Practitioner Family
DX: C61 Malignant neoplasm of prostate (principal)
CPT/HCPCS: 36415; 80053; 84153; 84403; 85025

== ENCOUNTER 2023-06-12 16:35 | Outpatient (CLI) | payer MEDICARE, MEDICAID, SELFPAY ==
[2023-06-12 17:04] LABS: Abs Immature Grans 0.02 10^3/uL (0.0-0.06); Absolute Basophil Count 0.04 10^3/uL (0.0-0.2); Absolute Eosinophil Count 0.22 10^3/uL (0.0-0.7); Absolute Lymphocyte Count 1.05 10^3/uL (1.2-3.4); Absolute Monocyte Count 0.46 10^3/uL (0.1-0.8); Absolute Neutrophil Count 4.54 10^3/uL (1.2-6.7); Basophils % 0.6; Eosinophils % 3.5; HCT 37.4 % (40.0-50.0); HGB 12.6 g/dL (13.5-17.5); Immature Grans % 0.3; Lymphocytes % 16.6; MCH 32.6 pg (27.0-33.0); MCHC 33.7 % (32.0-36.0); MCV 97 fL (80-95); MPV 9.2 fL (8.0-11.0); Monocytes % 7.3; Neutrophils % 71.7; Platelet Count 264 10^3/uL (130-400); RBC 3.87 10^6/uL (4.36-5.78); RDW 12.5 % (11.8-14.1); RDW-SD 44.4 fL; WBC 6.33 10^3/uL (4.4-10.8)
[2023-06-12 17:48] LABS: ALT 34 U/L (16-63); AST 26 U/L (15-37); Alkaline Phosphatase 114 U/L (46-116); Anion Gap 8.8 mmol/L (3-11); BUN 16 mg/dL (7-18); Bilirubin, Total 0.6 mg/dL (0.2-1.0); CO2 28.2 mmol/L (21.0-32.0); CREATININE 1.2 mg/dL (0.70-1.30); Calcium 8.9 mg/dL (8.5-10.1); Chloride 103 mmol/L (98-107); Estimated GFR 69.23 (mL/min/1.73m2); Glucose 112 mg/dL (74-106); Potassium 4.5 mmol/L (3.5-5.1); Sodium 140 mmol/L (136-145); Total Protein 7.3 g/dL (6.4-8.2)
[2023-06-15 17:26] LABS: PSA, Ultrasensitive <0.01 ng/mL (<= 4.5)
[2023-06-16 11:11] LABS: Testosterone, Total 8.4 ng/dL (240-950)
== END 2023-06-12 16:36 | disposition home or self-care (01) ==
LOC: LBO 16:36
PROVIDERS: PCP Internal Medicine; Visit Provider Internal Medicine
DX: C61 Malignant neoplasm of prostate (principal); C77.5 Secondary and unspecified malignant neoplasm of intrapelvic lymph nodes
CPT/HCPCS: 36415; 80053; 84153; 84403; 85025

== ENCOUNTER 2023-07-18 20:50 | Outpatient (REF) | payer MEDICARE, MEDICAID, SELFPAY ==
--- OUTSIDE RECORDS SUMMARY | 2023-07-18 20:57 | XMS_ITS | Continuity of Care Document ---
Author Name Unknown Organization [facility] Address [address] [place] [address] Care Team Providers Care Equipment Application Specialist Name Role Phone Yoni Reveles Primary Care Physician Encounter [facility]CT[facility]_OR Date(s): 06/14/22 - 06/15/22 [facility] [address] [place] [address] Encounter Diagnosis Cyclical vomiting(Discharge Diagnosis) - 06/14/22 Dehydration(Discharge Diagnosis) - 06/14/22 Acute kidney injury(Discharge Diagnosis) - 06/14/22 Hyperlipidemia(Discharge Diagnosis) - 06/14/22 Hypertensive disorder(Discharge Diagnosis) - 06/14/22 Prostate cancer(Discharge Diagnosis) - 06/14/22 Depression(Discharge Diagnosis) - 06/14/22 Discharge Disposition: Home or Self Care Attending Physician: January Joel MD Admitting Physician: Sofía Yin NP Allergies, Adverse Reactions, Alerts No Known Medication Allergies Substance Reaction Severity Status escitalopram Unknown Active Functional Status 06/15/22 Breakfast Percent 100 06/15/22 Activity Status ADL Sleeping 06/14/22 Living Environment No Living Environmen t Information Available Lives In Multilevel home 1 Lives With Spouse Living Situation Home independently Home Barriers None 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 Medications acetaminophen 500 mg oral tablet 1,000 mg = 2 tab, Oral, TID, PRN as needed for pain, 0 Refill(s) Start Date: 02/07/22 Status: Ordered aspirin 81 mg oral delayed release tablet 81 mg = 1 tab, Oral, Daily, 0 Refill(s) Start Date: 02/07/22 Status: Ordered atorvastatin 20 mg oral tablet 20 mg = 1 tab, Oral, every evening, 0 Refill(s) Start Date: 02/07/22 Status: Ordered Citracal Maximum + D 315 mg-6.25 mcg (250 intl units) oral tablet 2 tab, Oral, Daily, 0 Refill(s) Start Date: 02/07/22 Status: Ordered cloNIDine 0.1 mg oral tablet 0.1 mg = 1 tab, Oral, BID, 0 Refill(s) Start Date: 03/21/22 Status: Ordered HYDROmorphone 4 mg oral tablet 4 mg = 1 tab, Oral, TID, PRN as needed for pain, 0 Refill(s) Start Date: 02/07/22 Status: Ordered ondansetron 4 mg oral tablet, disintegrating 4 mg = 1 tab, SL, every 8 hr, PRN severe nausea Start Date: 02/22/22 Status: Ordered pantoprazole 20 mg oral delayed release tablet 20 mg = 1 tab, Oral, Daily, # 30 tab Start Date: 03/21/22 Status: Ordered predniSONE 5 mg oral tablet 5 mg = 1 tab, Oral, Daily Start Date: 02/21/22 Status: Ordered prochlorperazine 25 mg rectal suppository 25 mg = 1 supp, OR, every 12 hr, PRN severe nausea Start Date: 02/21/22 Status: Ordered tamsulosin 0.4 mg oral capsule 0.8 mg = 2 cap, Oral, Daily, 0 Refill(s) Start Date: 02/07/22 Status: Ordered venlafaxine 37.5 mg oral capsule, extended release 37.5 mg = 1 cap, Oral, Daily, # 30 cap Start Date: 05/28/22 Status: Ordered Zytiga 250 mg oral tablet 1,000 mg 4 tab, Oral, Daily, # 120 tab, 0 Refill(s) Start Date: 03/21/22 Status: Ordered Problem List Condition Confirmation Course Effective Dates Status H ealth Status Informant Benign neoplasm of rectum Confirmed Active Blood chemistry abnormal Confirmed Active Chondromalacia of right patella Confirmed Active Depression Confirmed Active H/O: fracture Confirmed Active Hyperlipidemia Confirmed Active Hypertensive disorder Confirmed Active Idiopathic osteoarthritis Confirmed Active Prostate cancer Confirmed Active Nicotine dependence Confirmed Active Obesity Confirmed Active Obstruction of bile duct Confirmed Active Urinary retention Confirmed Active Ulcer of esophagus Confirmed Active Procedures Procedure Date Related Diagnosis Body Site Status Colonoscopy 1 04/09/19 Completed Subtotal parathyroidectomy 08/12/16 Completed Cholecystectomy 2 11/21/10 Complet ed Tonsillectomy 3 Completed 1diverticulosis, external hemorrhoids; 04/16/2015 sm rectal polyp 2laparoscopic 3as a child Results Laboratory List Name Date Automated Diff 06/15/22 Basic Metabolic Panel 06/15/22 CBC w/ Diff 06/15/22 Basic Metabolic Panel (BMP) 06/14/22 Urinalysis Microscopic 06/14/22 Urinalysis with Micro if Indicated and C ulture if Indicated 06/14/22 SARS-CoV-2 (COVID-19) RNA (ID Now) Hemoglobin A1c 06/14/22 CBC w/ Diff 06/14/22 Comprehensive Metabolic Panel 06/14/22 Automated Diff 06/14/22 Lipase Level 06/14/22 Most recent to oldest [Reference Range]: 1 2 3 WBC [5.0-10.0 x10^3/mcL] 6.7 x10^3/mcL (06/15/22 6:55 AM) 10.4 x10^3/mcL *HI* (06/14/22 4:59 AM) RBC [4.6-6.0 x10^6/mcL] 3.4 x10^6/mcL *LOW* (06/15/22 6:55 AM) 4.6 x10^6/mcL (06/14/22 4:59 AM) Neutro Auto [40.0-75.0 %] 70.5 % (06/15/22 6:55 AM) 70.1 % (06/14/22 4:59 AM) Lymph Auto [20.0-50.0 %] 15.5 % *LOW* (06/15/22 6:55 AM) 17.1 % *LOW* (06/14/22 4:59 AM) Bertie Auto [2.0-15.0 %] 12.4 % (06/15/22 6:55 AM) 12.0 % (06/14/22 4:59 AM) Basophil Auto [0.0-1.0 %] 0.3 % (06/15/22 6:55 AM) 0.2 % (06/14/22 4:59 AM) BUN [7-18 mg/dL] 30 mg/dL *HI* (06/15/22 6:55 AM) 47 mg/dL *HI* (06/14/22 12:04 PM) 47 mg/dL *HI* (06/14/22 4:59 AM) UA Color Yellow (06/14/22:42 AM) UA WBC [0-3] 0-3 (06/14/22 11:42 AM) Glucose Level [74-106 mg/dL] 137 mg/dL *HI* (06/15/22 6:55 AM) 174 mg/dL *HI* (06/14/22 12:04 PM) 202 mg/dL *HI* (06/14/22 4:59 AM) Potassium Level [3.5-5.1 mmol/L] 3.0 mmol/L *LOW* (06/15/22 6:55 AM) 3.8 mmol/L (06/14/22 12:04 PM) 3.8 mmol/L (06/14/22 4:59 AM) MCV [80.0-103.0 fL] 100.0 fL (06/15/22 6:55 AM) 97.4 fL (06/14/22 4:59 AM) UA Urobilinogen Normal (06/14/22 11:42 AM) UA Hyal Cast Few /HPF (06/14/22 11:42 AM) UA Bili [Negative] Negative (06/14/22 11:42 AM) UA Ketones Trace *ABN* (06/14/22 11:42 AM) AST [15-37 unit/L] 25 unit/L (06/14/22 4:59 AM) ALT [16-63 unit/L] 28 unit/L (06/14/22 4:59 AM) MCHC [31.0-35.0 g/dL] 36.3 g/dL *HI* (06/15/22 6:55 AM) 35.0 g/dL (06/14/22 4:59 AM) Sodium Level [136-145 mmol/L] 138 mmol/L (06/15/22 6:55 AM) 139 mmol/L (06/14/22 12:04 PM) 137 mmol/L (06/14/22 4:59 AM) UA RBC [0-2] 0-2 (06/14/22 11:42 AM) UA Leuk Est Negative (06/14/22 11:42 AM) UA Nitrite Negative (06/14/22 11:42 AM) UA Glucose [Negative] Negative (06/14/22 11:42 AM) Hct [41.0-51.0 %] 33.6 % *LOW* (06/15/22 6:55 AM) 44.8 % (06/14/22 4:59 AM) UA Bacteria None Seen /HPF (06/14/22 11:42 AM) Lipase Level [16-77 unit/L] 27 unit/L (06/14/22 4:49 AM) Calcium Level [8.5-10.1 mg/dL] 8.3 mg/dL *LOW* (06/15/22 6:55 AM) 9.5 mg/dL (06/14/22 12:04 PM) 10.2 mg/dL *HI* (06/14/22 4:59 AM) Albumin Level [3.4-5.0 g/dL] 5.3 g/dL *HI* (06/14/22 4:59 AM) Protein Total [6.4-8.2 g/dL] 9.3 g/dL *HI* (06/14/22 4:59 AM) UA Protein 1+ *ABN* (06/14/22 11:42 AM) MCH [26.0-32.0 pg] 36.3 pg *HI* (06/15/22 6:55 AM) 34.1 pg *HI* (06/14/22 4:59 AM) Neutro Absolute 4.7 x10^3/mcL *NA* (06/15/22 6:55 AM) 7.3 x10^3/mcL *NA* (06/14/22 4:59 AM) Bilirubin Total [0.2-1.0 mg/dL] 2.0 mg/dL *HI* (06/14/22 4:59 AM) Hgb [14.0-18.0 g/dL] 12.2 g/dL *LOW* (06/15/22 6:55 AM) 15.7 g/dL (06/14/22 4:59 AM) Alk Phos [46-146 unit/L] 104 unit/L (06/14/22 4:59 AM) UA Blood Negative (06/14/22 11:42 AM) UA Mucous Rare /HPF *ABN* (06/14/22 11:42 AM) UA Spec Grav >=1.030 *NA* (06/14/22 11:42 AM) Platelets [130-450 x10^3/mcL] 228 x10^3/mcL (06/15/22 6:55 AM) 323 x10^3/mcL (06/14/22 4:59 AM) CO2 [21-32 mmol/L] 32 mmol/L (06/15/22 6:55 AM) 27 mmol/L (06/14/22 12:04 PM) 25 mmol/L (06/14/22 4:59 AM) UA Squam Epithelial [None Seen] Few *ABN* (06/14/22 11:42 AM) UA pH 5.5 *NA* (06/14/22 11:42 AM) eGFR Non-AA [>=60] 60 (06/15/22 6:55 AM) 32 *LOW* (06/14/22 12:04 PM) 23 *LOW* (06/14/22 4:59 AM) eGFR AA [>=60] 60 (06/15/22 6:55 AM) 32 *LOW* (06/14/22 12:04 PM) 23 *LOW* (06/14/22 4:59 AM) UA Appear Clear (06/14/22 11:42 AM) Hemoglobin A1c [4.0-6.0 %] 5.8 % (06/14/22 5:00 AM) Chloride Level [98-107 mmol/L] 98 mmol/L (06/15/22 6:55 AM) 96 mmol/L *LOW* (06/14/22 12:04 PM) 93 mmol/L *LOW* (06/14/22 4:59 AM) RDW-CV [11.5-17.0 %] 12.5 % (06/15/22 6:55 AM) 12.7 % (06/14/22 4:59 AM) Imm Gran Auto [0.0-0.9 %] 0.3 % (06/15/22 6:55 AM) 0.4 % (06/14/22 4:59 AM) UA Culture Ind?. Not Indicated (06/14/22 11:42 AM) UA Amorph Rare /HPF (06/14/22 11:42 AM) Creatinine Level [0.70-1.30 mg/dL] 1.35 mg/dL *HI* (06/15/22 6:55 AM) 2.31 mg/dL *HI* (06/14/22 12:04 PM) 3.07 mg/dL *HI* (06/14/22 4:59 AM) SARS-CoV-2 (COVID-19) RNA (ID Now) [Not Detected] Not Detected (06/14/22 5:50 AM) Eos, Auto [1.0-6.0 %] 1.0 % (06/15/22 6:55 AM) 0.2 % *LOW* (06/14/22 4:59 AM) Vital Signs Most recent to oldest [Reference Range]: 1 2 3 Temperature Tympanic [36.6-37.9 Deg C] 37.5 Deg C (06/14/22 12:59 PM) Temperature Temporal Artery [36-38 Deg C] 36.7 Deg C (06/15/22 10:10 AM) 36.6 Deg C (06/15/22 6:15 AM) 36.6 Deg C (06/15/22 2:40 AM) Peripheral Pulse Rate [60-100 bpm] 75 bpm (06/15/22 10:10 AM) 75 bpm (06/15/22 6:15 AM) 80 bpm (06/15/22 2:40 AM) Heart Rate Monitored [60-100 bpm] 114 bpm *HI* (06/14/22 7:45 AM) 90 bpm (06/14/22 7:30 AM) 87 bpm (06/14/22 7:00 AM) Respiratory Rate [12-24 br/min] 16 br/min (06/15/22 10:10 AM) 18 br/min (06/15/22 6:15 AM) 18 br/min (06/15/22 2:40 AM) Blood Pressure [90-140/60-90 mmHg] 129/90mmHg (06/15/22 10:10 AM) 128/76mmHg (06/15/22 6:15 AM) 115/81mmHg (06/15/22 2:40 AM) Mean Arterial Pressure, Cuff [65-140 mmHg] 128 mmHg (06/14/22 8:09 AM) Mean Arterial Pressure Cuff 102 mmHg (06/15/22 10:10 AM) 91 mmHg (06/15/22 2:40 AM) 85 mmHg (06/14/22 10:42 PM) Weight 93.6 kg (06/15/22 6:15 AM) 90 kg (06/14/22 8:07 AM) 97.000 kg (06/14/22 8:03 AM) Weight Dosing 97.000 kg (06/14/22 8:03 AM) 97.00 kg (06/14/22 5:08 AM) Weight Estimated 97.00 kg (06/14/22 4:41 AM) Height 178.000 cm (06/14/22 8:03 AM) Height/Length Dosing 178.000 cm (06/14/22 8:03 AM) 178.000 cm (06/14/22 5:08 AM) Body Mass Index 30.610 kg/m2 (06/14/22 8:03 AM) Height/Length Estimated 178.000 cm (06/14/22 4:41 AM) Social History Social History Type Response Tobacco Former tobacco user Tobacco Use:. 1 Sex Male 1Quit in 2012, used to smoke 1 pack/day Hospital Discharge Instructions Follow Up Care 06/14/2022 04:41:45 With:Yoni Reveles MD Address: [address] [address]- When:1 to 2 weeks Patient Care team information Personnel Name: Yoni Reveles MD Address: Address: [address] [address]- [place]
--- OUTSIDE RECORDS SUMMARY | 2023-07-18 20:57 | XMS_ITS | Continuity of Care Document ---
Author Name Unknown Organization 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 Name Role Phone au Yoni GALLO Primary Care Physician Encounter NCTY_NM Date(s): 07/04/23 - 07/05/23 [facility] [address] [place] [address] Encounter Diagnosis [place] (acute kidney injury)(Discharge Diagnosis) - 07/04/23 Hyponatremia(Discharge Diagnosis) - 07/04/23 Hypoxia(Discharge Diagnosis) - 07/04/23 Pneumonia(Discharge Diagnosis) - 07/04/23 CKD (chronic kidney disease)(Discharge Diagnosis) - 07/04/23 Hypertensive disorder(Discharge Diagnosis) - 07/04/23 Hyperlipidemia(Discharge Diagnosis) - 07/04/23 Prostate cancer(Discharge Diagnosis) - 07/04/23 Urinary retention(Discharge Diagnosis) - 07/04/23 Discharge Disposition: Home or Self Care Attending Physician: January Joel MD Admitting Physician: January Joel MD Allergies, Adverse Reactions, Alerts No Known Medication Allergies Substance Reaction Severity Status escitalopram Unknown Active Assessment and Plan Future Scheduled Tests Laboratory* Basic Metabolic Panel 07/08/23 * CBC w/o Diff 07/08/23 Functional Status 07/05/23 Breakfast Percent 50 07/04/23 Family Member Travel History No recent t ravel Recent Travel History No recent travel Other exposure to Infectious Disease Non e 07/04/23 Living Environment No Living Environmen t Information Available Lives In Multilevel home Lives With Spouse Medications acetaminophen 500 mg oral tablet 1,000 mg = 2 tab, Oral, TID, PRN as needed for pain, 0 Refill(s) Start Date: 02/07/22 Status: Ordered amitriptyline 10 mg oral tablet 0 Refill(s) Start Date: 03/11/23 Status: Ordered amoxicillin-clavulanate 875 mg-125 mg oral tablet 1 tab, Oral, every 12 hr, # 14 tab, 0 Refill(s), Pharmacy: [id number], 178, cm, 07/04/23 18:39:00 EST, Height, 110, kg, 07/04/23 13:22:00 EST, Weight Dosing Start Date: 07/05/23 Stop Date: 07/12/23 Status: Ordered aspirin 81 mg oral delayed [...] 0 Refill(s) Start Date: 02/07/22 Status: Ordered metoprolol succinate 100 mg oral tablet, extended release 100 mg = 1 tab, Oral, Daily, 0 Refill(s) Start Date: 07/05/23 Status: Ordered ondansetron 4 mg oral tablet, [...] rectal suppository 25 mg = 1 supp, LA, every 12 hr, PRN severe nausea Start Date: 02/21/22 Status: Ordered tamsulosin 0.4 mg oral capsule 0.8 mg = 2 cap, Oral, Daily, 0 Refill(s) Start Date: 02/07/22 Status: Ordered venlafaxine 37.5 mg oral capsule, extended release 37.5 mg = 1 cap, Oral, Daily, # 30 cap Start Date: 05/28/22 Status: Ordered Zofran 4 mg oral tablet 4 mg = 1 tab, Oral, every 8 hr, # 20 tab, 0 Refill(s), Pharmacy: [id number], 178, cm, 07/03/22 2:11:00 EST, Height/Length Dosing, 95.25, kg, 07/03/22 2:11:00 EST, Weight Dosing Start Date: 07/03/22 Status: Ordered Zytiga 250 mg oral tablet 1,000 mg 4 tab, Oral, Daily, # 120 tab, 0 Refill(s) Start Date: 03/21/22 Status: Ordered Mental Status 07/04/23 Eye Opening Response Michelle Spontaneous ly Best Verbal Response Fords Oriented Best Motor Response Michelle Obeys comman ds Fords Coma Score 15 Problem List Condition Confirmation Course Effective Dates Status H ealth Status Informant [place] (acute kidney injury) Confirmed Active Benign neoplasm of rectum Confirmed Active Blood chemistry abnormal Confirmed Active Chondromalacia of right patella Confirmed Active CKD (chronic kidney disease) Confirmed Active Depression Confirmed Active H/O: fracture Confirmed Active Hyperlipidemia Confirmed Active Hypertensive disorder Confirmed Active Hyponatremia Confirmed Active Hypoxia Confirmed Active Idiopathic osteoarthritis Confirmed Active Prostate cancer Confirmed Active Nicotine dependence Confirmed Active Obesity Confirmed Active Obstruction of bile duct Confirmed Active Pneumonia Confirmed Active Urinary retention Confirmed Active Ulcer of esophagus Confirmed Active Procedures Procedure Date Related Diagnosis Body Site Status Colonoscopy 1 04/09/19 Completed Subtotal parathyroidectomy 08/12/16 Completed Cholecystectomy 2 11/21/10 Complet ed Tonsillectomy 3 Completed 1diverticulosis, external hemorrhoids; 04/16/2015 sm rectal polyp 2laparoscopic 3as a child Results Laboratory List Name Date Basic Metabolic Panel (BMP) 07/05/23 CBC w/ Diff 07/05/23 .Manual Differential (NCTY) 07/05/23 Urinalysis Microscopic 07/04/23 Urinalysis with Micro if Indicated and C ulture if Indicated 07/04/23 SARS-CoV-2 (COVID-19) RNA (ID Now) 07/04 Comprehensive Metabolic Panel 07/04/23 Lactic Acid 07/04/23 Lipase Level 07/04/23 .Manual Differential (NCTY) 07/04/23 CBC w/ Diff 07/04/23 Comprehensive Metabolic Panel 07/04/23 Lactic Acid 07/04/23 Lipase Level 07/04/23 Most recent to oldest [Reference Range]: 1 2 3 WBC [5.0-10.0 x10^3/mcL] 16.8 x10^3/mcL *HI* (07/05/23 7:10 AM) 24.5 x10^3/mcL *HI* (07/04/23 1:35 PM) RBC [4.6-6.0 x10^6/mcL] 4.0 x10^6/mcL *LOW* (07/05/23 7:10 AM) 4.4 x10^6/mcL *LOW* (07/04/23 1:35 PM) Segs Man [40-75 %] 91 % *HI* (07/05/23 7:10 AM) 93 % *HI* (07/04/23 1:35 PM) Lymph Man [20-50 %] 4 % *LOW* (07/05/23 7:10 AM) 5 % *LOW* (07/04/23 1:35 PM) Barbour Man [2-15 %] 4 % (07/05/23 7:10 AM) 2 % (07/04/23 1:35 PM) Eos Man [1-6 %] 0 % *LOW* (07/05/23 7:10 AM) 0 % *LOW* (07/04/23 1:35 PM) BUN [7-18 mg/dL] 59 mg/dL *HI* (07/05/23 7:10 AM) 82 mg/dL *HI* (07/04/23 1:43 PM) 88 mg/dL *HI* (07/04/23 1:35 PM) UA Color [place] *ABN* (07/04/23 10:20 PM) UA WBC [0-3] 0-3 (07/04/23 10:20 PM) Glucose Level [74-106 mg/dL] 138 mg/dL *HI* (07/05/23 7:10 AM) 162 mg/dL *HI* (07/04/23 1:43 PM) 208 mg/dL *HI* (07/04/23 1:35 PM) Potassium Level [3.5-5.1 mmol/L] 3.7 mmol/L (07/05/23 7:10 AM) 3.6 mmol/L (07/04/23 1:43 PM) 3.6 mmol/L (07/04/23 1:35 PM) MCV [80.0-96.0 fL] 95.8 fL (07/05/23 7:10 AM) 93.0 fL (07/04/23 1:35 PM) UA Urobilinogen Positive *ABN* (07/04/23 10:20 PM) RBC Morph Normal (07/05/23 7:10 AM) Normal (07/04/23 1:35 PM) UA Hyal Cast Rare /HPF (07/04/23 10:20 PM) UA Bili [Negative] 1+ *ABN* (07/04/23 10:20 PM) UA Ketones Negative (07/04/23 10:20 PM) AST [15-37 unit/L] 27 unit/L (07/04/23 1:43 PM) 27 unit/L (07/04/23 1:35 PM) ALT [16-63 unit/L] 22 unit/L (07/04/23 1:43 PM) 24 unit/L (07/04/23 1:35 PM) MCHC [31.0-35.0 g/dL] 34.4 g/dL (07/05/23 7:10 AM) 36.3 g/dL *HI* (07/04/23 1:35 PM) Sodium Level [136-145 mmol/L] 133 mmol/L *LOW* (07/05/23 7:10 AM) 128 mmol/L *LOW* (07/04/23 1:43 PM) 122 mmol/L 1 *CRIT* (07/04/23 1:35 PM) UA RBC [0-2] 3-5 (07/04/23 10:20 PM) UA Leuk Est Negative (07/04/23 10:20 PM) UA Gran Cast Rare /HPF (07/04/23 10:20 PM) UA Nitrite Positive *ABN* (07/04/23 10:20 PM) UA Glucose [Negative] Trace *ABN* (07/04/23 10:20 PM) Hct [41.0-51.0 %] 38.7 % *LOW* (07/05/23 7:10 AM) 41.1 % (07/04/23 1:35 PM) UA Bacteria Few /HPF *ABN* (07/04/23 10:20 PM) Lipase Level [16-77 unit/L] 22 unit/L 2 (07/04/23 1:43 PM) 24 unit/L 3 (07/04/23 1:35 PM) Calcium Level [8.5-10.1 mg/dL] 8.1 mg/dL *LOW* (07/05/23 7:10 AM) 7.1 mg/dL *LOW* (07/04/23 1:43 PM) 7.7 mg/dL *LOW* (07/04/23 1:35 PM) Albumin Level [3.4-5.0 g/dL] 3.8 g/dL (07/04/23 1:43 PM) 4.4 g/dL (07/04/23 1:35 PM) Protein Total [6.4-8.2 g/dL] 7.3 g/dL (07/04/23 1:43 PM) 8.3 g/dL *HI* (07/04/23 1:35 PM) UA Protein 2+ *ABN* (07/04/23 10:20 PM) MCH [26.0-32.0 pg] 32.9 pg *HI* (07/05/23 7:10 AM) 33.7 pg *HI* (07/04/23 1:35 PM) Bilirubin Total [0.2-1.0 mg/dL] 1.4 mg/dL *HI* (07/04/23 1:43 PM) 1.8 mg/dL *HI* (07/04/23 1:35 PM) Hgb [14.0-18.0 g/dL] 13.3 g/dL *LOW* (07/05/23 7:10 AM) 14.9 g/dL (07/04/23 1:35 PM) Alk Phos [46-146 unit/L] 95 unit/L (07/04/23 1:43 PM) 109 unit/L (07/04/23 1:35 PM) UA Blood Trace *ABN* (07/04/23 10:20 PM) UA Mucous None Seen /HPF (07/04/23 10:20 PM) Band Man [0-5 %] 1 % (07/05/23 7:10 AM) 0 % (07/04/23 1:35 PM) UA Spec Grav 1.020 *NA* (07/04/23 10:20 PM) Platelets [130-450 x10^3/mcL] 284 x10^3/mcL (07/05/23 7:10 AM) 330 x10^3/mcL (07/04/23 1:35 PM) CO2 [21-32 mmol/L] 28 mmol/L (07/05/23 7:10 AM) 25 mmol/L (07/04/23 1:43 PM) 25 mmol/L (07/04/23 1:35 PM) Lactic Acid Lvl [0.7-2.0 mmol/L] 1.9 mmol/L (07/04/23 1:43 PM) 3.1 mmol/L 4 *CRIT* (07/04/23 1:35 PM) UA Squam Epithelial [None Seen] Rare (07/04/23 10:20 PM) UA pH 5.0 *NA* (07/04/23 10:20 PM) eGFR Non-AA [>=60] 41 *LOW* (07/05/23 7:10 AM) 23 *LOW* (07/04/23 1:43 PM) 20 *LOW* (07/04/23 1:35 PM) eGFR AA [>=60] 41 *LOW* (07/05/23 7:10 AM) 23 *LOW* (07/04/23 1:43 PM) 20 *LOW* (07/04/23 1:35 PM) UA Appear Clear (07/04/23 10:20 PM) Chloride Level [98-107 mmol/L] 94 mmol/L *LOW* (07/05/23 7:10 AM) 89 mmol/L *LOW* (07/04/23 1:43 PM) 84 mmol/L *LOW* (07/04/23 1:35 PM) RDW-CV [11.5-14.5 %] 13.1 % (07/05/23 7:10 AM) 13.1 % (07/04/23 1:35 PM) Slide Review Man Diff (07/05/23 7:10 AM) Man Diff (07/04/23 1:35 PM) UA Culture Ind?. Indicated (07/04/23 10:20 PM) Abs Neut Man 15.5 x10^3/mcL *NA* (07/05/23 7:10 AM) 22.8 x10^3/mcL *NA* (07/04/23 1:35 PM) Creatinine Level [0.70-1.30 mg/dL] 1.86 mg/dL *HI* (07/05/23 7:10 AM) 2.99 mg/dL *HI* (07/04/23 1:43 PM) 3.38 mg/dL *HI* (07/04/23 1:35 PM) SARS-CoV-2 (COVID-19) RNA (ID Now) [Not Detected] Not Detected (07/04/23 5:09 PM) Baso Man [0-1 %] 0 % (07/05/23 7:10 AM) 0 % (07/04/23 1:35 PM) 1Result Comment: Called to and verbally verified by Noni Short at 07/04/2023 14:13:14 EST. Repeated for confirmation 2Interpretive Data: Effective 06/01/22, [facility] has switched to a revised Lipase test.Note new ReferenceRange. 3Interpretive Data: Effective 06/01/22, [facility] has switched to a revised Lipase test.Note new ReferenceRange. 4Result Comment: Called to and verbally verified by Duncan Gomez RN at 07/04/2023 13:43:03 EST. Orders for Microbiology Reports Name Date Urine Culture 07/04/23 Microbiology Reports TEST:Urine Culture STATUS:Order in Progress BODY SITE: SOURCE:Urine COLLECTED DATE/TIME:07/04/23 10:20 PM PRELIMINARY REPORT No growth at 24 hours. Vital Signs Most recent to oldest [Reference Range]: 1 2 3 Temperature Temporal Artery [36-38 Deg C] 36.5 Deg C (07/05/23 7:10 AM) 36.3 Deg C (07/05/23 4:01 AM) 36.4 Deg C (07/05/23 12:53 AM) Temperature Temporal Artery (DegF) [97.3-100 Deg F] 97.52 Deg F (07/04/23 8:13 PM) Peripheral Pulse Rate [60-100 bpm] 96 bpm (07/05/23 7:10 AM) 95 bpm (07/05/23 4:01 AM) 96 bpm (07/05/23 12:59 AM) Heart Rate Monitored [60-100 bpm] 90 bpm (07/05/23 8:15 AM) 119 bpm *HI* (07/04/23 5:21 PM) 129 bpm *HI* (07/04/23 5:00 PM) Respiratory Rate [12-24 br/min] 16 br/min (07/05/23 8:15 AM) 16 br/min (07/05/23 7:10 AM) 20 br/min (07/05/23 4:01 AM) Blood Pressure [90-140/60-90 mmHg] 150/82mmHg *HI* (07/05/23 7:10 AM) 105/69mmHg (07/05/23 4:01 AM) 133/82mmHg (07/05/23 12:53 AM) Mean Arterial Pressure, Cuff [70-110 mmHg] 119 mmHg *HI* (07/04/23 8:13 PM) 134 mmHg *>HHI* (07/04/23 5:00 PM) 122 mmHg *>HHI* (07/04/23 4:00 PM) Mean Arterial Pressure Cuff 101 mmHg (07/05/23 7:10 AM) 82 mmHg (07/05/23 4:01 AM) 96 mmHg (07/05/23 12:53 AM) Blood Pressure Location Right arm (07/05/23 4:01 AM) Right arm (07/05/23 12:53 AM) Blood Pressure Method Automatic (07/05/23 4:01 AM) Automatic (07/05/23 12:53 AM) Weight 107.8 kg (07/05/23 7:10 AM) 108 kg (07/04/23 6:39 PM) 108 kg (07/04/23 6:39 PM) Weight Dosing 110.00 kg (07/04/23 1:22 PM) Usual Weight 113 kg (07/04/23 6:39 PM) Weight Estimated 110.00 kg (07/04/23 1:10 PM) Height 178 cm (07/04/23 6:39 PM) 178 cm (07/04/23 6:22 PM) 178.000 cm (07/04/23 1:22 PM) BSA Measured 2.31 m2 (07/04/23 6:22 PM) BSA Estimated 0 m2 (07/04/23 6:22 PM) Body Mass Index 34.09 kg/m2 (07/04/23 6:39 PM) 34.09 kg/m2 (07/04/23 6:22 PM) Height/Length Estimated 178.000 cm (07/04/23 1:10 PM) Social History Social History Type Response Tobacco Former tobacco user Tobacco Use:. Sex Male Hospital Discharge Instructions Patient Education 07/05/2023 08:59:53 Hyponatremia, [id number] Hyponatremia Hyponatremia is when the amount of salt (sodium) in your blood is too low. When salt levels are low, your body cells may take in extra water. This can cause swelling. The swelling often affects the brain. What are the causes? Certain medical problems or conditions. ??? Vomiting a lot. ??? Having watery poop (diarrhea) often. ??? Sweating too much. ??? Taking certain medicines or using illegal drugs. ??? Fluids given through an IV tube. What increases the risk? Having heart, kidney, or liver failure. ??? Having a medical condition that causes you to have watery poop a lot. ??? Doing very hard exercises. ??? Taking medicines that affect the amount of salt that is in your blood. What are the signs or symptoms? Symptoms of this condition include: ??? Headache. ??? Feeling like you may vomit (nausea). ??? Vomiting. ??? Being very tired. ??? Muscle weakness and cramps. ??? Not wanting to eat as much as normal. ??? Feeling weak or dizzy. Very bad symptoms of this condition include: ??? Confusion. ??? Feeling restless. ??? Having a fast heart rate. ??? Fainting. ??? Seizures. ??? Coma. How is this treated? Treatment for this condition depends on the cause. Treatment may include: ??? Getting fluids through an IV tube that is put into one of your veins. ??? Taking medicines to fix the salt levels in your blood. If medicines are causing the problem, your medicines will need to be changed. ??? Limiting how much water or fluid you take in, in some cases. ??? Monitoring in the hospital to watch your symptoms. Follow these instructions at home: ??? Take [id number] and prescription medicines only as told by your doctor. Many medicines can make this condition worse. Talk with your doctor about any medicines that you are taking. ??? Do not drink alcohol. ??? Keep all follow-up visits. Contact a doctor if: ??? You feel more like you may vomit. ??? You feel more tired. ??? Your headache gets worse. ??? You feel more confused. ??? You feel weaker. ??? Your symptoms go away and then they come back. Get help right away if: ??? You have a seizure. ??? You faint. ??? You keep having watery poop. ??? You keep vomiting. Summary ??? Hyponatremia is when the amount of salt in your blood is too low. ??? When salt levels are low, you can have swelling throughout the body. The swelling mostly affects the brain. ??? Treatment depends on the cause. ??? Treatment may include IV fluids and changing medicines. This information is not intended to replace advice given to you by your health care provider. Make sure you discuss any questions you have with your health care provider. Document Revised: 02/07/2022 Document Reviewed: 02/07/2022 Elsevier Patient Education ?? 2022 [employer]. Follow Up Care 07/04/2023 13:10:06 With:Yoni Mccarty MD Address: [address] [phone] When:1 month Discharge instructions * Yuli Odonnell: PERFORM Event Display: Discharge Instructions Authored Date: LDUMILA FAIRCHILD :1965 Age:58 years Sex:Male Visit Date:07/04/2023 Primary Care Physician: Yoni Mccarty MD Hospital Discharge Instructions We would like to thank you for allowing us to assist you with your healthcare needs. The following includes patient education materials and information regarding your injury/illness. Your Next Steps Discharge Orders Discharge Activity Restrictions, as tolerated Discharge Diet Instruction, Regular home diet Follow Up Appointments Follow Up with??[facility], Yoni Velazquez MD When:??Within 1 month Where: [address] [phone] [phone] Future Orders Basic Metabolic Panel, Blood, Routine, *Est. 07/08/23 +/- 2 days, Once, Lab Collect, Order for future visit CBC w/o Diff, Blood, Routine, *Est. 07/08/23 +/- 2 days, Once, Lab Collect, Order for future visit Medications What How Much When Instructions Next Dose New amoxicillin-clavulanate (amoxicillin-clavulanate 875 mg-125 mg oral tablet) 1 tab Oral (given by mouth) Every 12 hours Duration: 7 Days Pickup at [facility] New metoprolol (metoprolol succinate 100 mg oral tablet, extended release) 1 tab Oral (given by mouth) Every day Unchanged abiraterone (Zytiga 250 mg oral tablet) 4 tab Oral (given by mouth) Every day Unchanged acetaminophen (acetaminophen 500 mg oral tablet) 2 tab Oral (given by mouth) 3 times a day as needed for as needed for pain Unchanged amitriptyline (amitriptyline 10 mg oral tablet) Unchanged aspirin (aspirin 81 mg oral delayed release tablet) 1 tab Oral (given by mouth) Every day Unchanged atorvastatin (atorvastatin 20 mg oral tablet) 1 tab Oral (given by mouth) Every evening Unchanged calcium-vitamin D (Citracal Maximum + D 315 mg-6.25 mcg (250 intl units) oral tablet) 2 tab Oral (given by mouth) Every day Unchanged cloNIDine (cloNIDine 0.1 mg oral tablet) 1 tab Oral (given by mouth) 2 times a day Unchanged HYDROmorphone (HYDROmorphone 4 mg oral tablet) 1 tab Oral (given by mouth) 3 times a day as needed for as needed for pain Unchanged ondansetron (ondansetron 4 mg oral tablet, disintegrating) 1 tab Sublingual (dissolve under the tongue) Every 8 hours as needed for severe nausea Unchanged ondansetron (Zofran 4 mg oral tablet) 1 tab Oral (given by mouth) Every 8 hours Unchanged pantoprazole (pantoprazole 20 mg oral delayed release tablet) 1 tab Oral (given by mouth) Every day Unchanged predniSONE (predniSONE 5 mg oral tablet) 1 tab Oral (given by mouth) Every day Unchanged prochlorperazine (prochlorperazine 25 mg rectal suppository) 1 Suppositories Per rectum (in the rectum) Every 12 hours as needed for severe nausea Unchanged tamsulosin (tamsulosin 0.4 mg oral capsule) 2 Capsules Oral (given by mouth) Every day Unchanged venlafaxine (venlafaxine 37.5 mg oral capsule, extended release) 1 Capsules Oral (given by mouth) Every day Pharmacy Information [facility]: [address], [place] [phone] Your Summary Your Care Team Admitting Physician - January Joel MD Attending Physician - January Joel MD Primary Care Physician - [facility], Yoni Velazquez MD Your Diagnosis [place] (acute kidney injury) Hyponatremia Hypoxia Pneumonia CKD (chronic kidney disease) Hypertensive disorder Hyperlipidemia Prostate cancer Urinary retention Problems Ongoing - Any problem that you are currently receiving treatment for. [place] (acute kidney injury) Benign neoplasm of rectum Blood chemistry abnormal Chondromalacia of right patella CKD (chronic kidney disease) Depression H/O: fracture Hyperlipidemia Hypertensive disorder Hyponatremia Hypoxia Idiopathic osteoarthritis Nicotine dependence Obesity Obstruction of bile duct Pneumonia Prostate cancer Ulcer of esophagus Urinary retention Tests Performed/Pending .Manual Differential (NCTY) BMP CBC w/ Diff Comprehensive Metabolic Panel Lactic Acid Lipase Level SARS-CoV-2 (COVID-19) RNA (ID Now) Urinalysis Microscopic Urinalysis with Micro if Indicated and Culture if Indicated Urine Culture?-- Results Pending -- Discharge Vitals Temperature??(Temporal Artery) 97.7 ??F (36.5 ??C) Heart Rate??(Monitored) 90 Respiratory Rate?? 16 Blood Pressure?? 150/82?? Height?? 70.08 in (178 cm) Weight?? 237.70 lb (107.8 kg) BMI?? 34.09 Allergies No Known Medication Allergies escitalopram Education Materials Hyponatremia Hyponatremia is when the amount of salt (sodium) in your blood is too low. When salt levels are low, your body cells may take in extra water. This can cause swelling. The swelling often affects the brain. What are the causes? Certain medical problems or conditions. ? Vomiting a lot. ? Having watery poop (diarrhea) often. ? Sweating too much. ? Taking certain medicines or using illegal drugs. ? Fluids given through an IV tube. What increases the risk? Having heart, kidney, or liver failure. ? Having a medical condition that causes you to have watery poop a lot. ? Doing very hard exercises. ? Taking medicines that affect the amount of salt that is in your blood. What are the signs or symptoms? Symptoms of this condition include: ? Headache. ? Feeling like you may vomit (nausea). ? Vomiting. ? Being very tired. ? Muscle weakness and cramps. ? Not wanting to eat as much as normal. ? Feeling weak or dizzy. Very bad symptoms of this condition include: ? Confusion. ? Feeling restless. ? Having a fast heart rate. ? Fainting. ? Seizures. ? Coma. How is this treated? Treatment for this condition depends on the cause. Treatment may include: ? Getting fluids through an IV tube that is put into one of your veins. ? Taking medicines to fix the salt levels in your blood. If medicines are causing the problem, your medicines will need to be changed. ? Limiting how much water or fluid you take in, in some cases. ? Monitoring in the hospital to watch your symptoms. Follow these instructions at home: ? Take ctrs-fkz-hfyughg and prescription medicines only as told by your doctor. Many medicines can make this condition worse. Talk with your doctor about any medicines that you are taking. ? Do not drink alcohol. ? Keep all follow-up visits. Contact a doctor if: ? You feel more like you may vomit. ? You feel more tired. ? Your headache gets worse. ? You feel more confused. ? You feel weaker. ? Your symptoms go away and then they come back. Get help right away if: ? You have a seizure. ? You faint. ? You keep having watery poop. ? You keep vomiting. Summary ? Hyponatremia is when the amount of salt in your blood is too low. ? When salt levels are low, you can have swelling throughout the body. The swelling mostly affects the brain. ? Treatment depends on the cause. ? Treatment may include IV fluids and changing medicines. This information is not intended to replace advice given to you by your health care provider. Make sure you discuss any questions you have with your health care provider. Document Revised: 02/07/2022 Document Reviewed: 02/07/2022 Elsevier Patient Education ?? 2022 [employer] Inc[employer] 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 criteria (IQ) is confidential and proprietary information and is being provided to you solely as it pertains to the information requested. IQ may contain advanced clinical knowledge whichwe recommend you discuss with your physician upon disclosure to you. Use permitted by and subject to license with [employer] and/or one of its subsidiaries. IQ reflects clinical interpretations and analyses and cannot alone either (a) resolve medical ambiguities of particular situations;or (b) provide the sole basis for definitive decisions. IQ is intended solely for use as screening guidelines with respect to medical appropriateness of healthcare services. All ultimate care decisions are strictly and solely the obligation and responsibility of your health care provider. ?? 2022 [employer] and/or one of its subsidiaries. All Rights Reserved. CPT?? only ?? [employer]. All Rights Reserved. Review Outcome: Acute Met Other [employer] [X] Select Day, One: [X] Episode Day 1, One: [X] ACUTE, ??? One: [X] Hyponatremia or SIADH, Both: [X] Finding, One: [X] Sodium 120-129 mEq/L(120-129 mmol/L) and symptomatic [X] Intervention, ??? One: [X] Sodium chloride 0.9%(0.009 Respiratory therapy Hospital Progress note * Maritza Ruiz: PERFORM Event Display: Respiratory Therapy Progress Note Authored Date: [id number] ??LUDMILA FAIRCHILD 58 Years MEASURED Body Mass Index: 34.09 kg/m2 (07/04/23 18:39:00) BSA Measured: 2.31 m2 (07/04/23 18:22:00) Height: 178 cm (07/04/23 18:39:00) Weight: 108 kg (07/04/23 18:39:00) Weight: 108 kg (07/04/23 18:39:00) DOSING Height/Length Dosin cm (03/11/23 16:53:57) Weight Dosin kg (07/04/23 13:22:26) Respiratory Shift Summary Breath Sounds: Shift Treatments: Shift Events: Patient desaturated down to 87% at night. Placed patient on 2 lpm nasal cannula and sats increased to 94%. RN aware. Respiratory Goals/Plan of Care: ABG???s: Inital _??Settings: End of Shift _Settings: Respirtory Treatment or Medication Changes: Respiratory Protocol??Aerosol Therapy Assessment and Scoring Home Medication Routine: Lung History _ Breath Sounds _ Respiratory Rate _ Modified Juanjo Scale or Observed Dyspnea _ Oxygen Therapy _ Home Respiratory Medications _ Inhaler Use Assessment ? Clinically Stable? _? Can take a slow deep breath on command? _? Can perform a 3 second breath hold? _ Respiratory total Score: _ Respiratory Guidelines _ Electronically Signed on 07/05/23 04:31 AM Maritza Ruiz * Maritza Ruiz: PERFORM Event Display: Respiratory Therapy Progress Note Authored Date: ??LUDMILA FAIRCHILD 58 Years MEASURED Body Mass Index: 34.09 kg/m2 (07/04/23 18:39:00) BSA Measured: 2.31 m2 (07/04/23 18:22:00) Height: 178 cm (07/04/23 18:39:00) Weight: 108 kg (07/04/23 18:39:00) Weight: 108 kg (07/04/23 18:39:00) DOSING Height/Length Dosin cm (03/11/23 16:53:57) Weight Dosin kg (07/04/23 13:22:26) Respiratory Shift Summary Breath Sounds: CTA Shift Treatments: None Shift Events: On RA now 94% Respiratory Goals/Plan of Care: ABG???s: Inital _??Settings: End of Shift _Settings: Respirtory Treatment or Medication Changes: Respiratory Protocol??Aerosol Therapy Assessment and Scoring Home Medication Routine: Lung History (1) Smoking history less than 1 pack/day, History of lung disease(Asthma) Breath Sounds (0) Clear in all douglass Respiratory Rate (0) Less than or equal to 18 Modified Juanjo Scale or Observed Dyspnea (0) None Oxygen Therapy (0) Room air, at baseline home O2, post-op, or CHF Home Respiratory Medications (0) None Inhaler Use Assessment ? Clinically Stable? Yes? Can take a slow deep breath on command? Yes? Can perform a 3 second breath hold? Yes Respiratory total Score: 1 Respiratory Guidelines _ Electronically Signed on 07/04/23 08:13 PM Maritza Ruiz Physician Emergency department Note * Ace Armijo MD: PERFORM Event Display: ED Note Physician Authored Date: [id number] LUDMILA FAIRCHILD :1965 Age:58 years Sex:Male Visit Date:07/04/2023 Primary Care Physician: Yoni Mccarty MD Basic Information Time Seen: Ace Armijo MD / 07/04/2023 13:31 Chief Complaint N/V abdominal pain History Of Present Illness: This is a 58-year-old gentleman history significant for but not limited to??prostate cancer currently in remission (chart review shows normal NM bone scan??04/09/2023), multiple presentations for vomiting and abdominal pain, CKD, hypertension, hyperlipidemia. ??He reports that for the last 4 to 5 days??he has had??nausea, vomiting, diarrhea and fairly diffuse lower abdominal pain without focality.?? Is still smoking marijuana.?? Does not??have any nausea medications at home. ??She notes??decreased??oral intake over the last several days secondary to the nausea and vomiting and is only urinatedonce today. ??No chest pain or shortness of breath Review of Systems: Positive for abdominal pain otherwise as noted in HPI Physical Exam Vitals & Measurements T:??36.4?C ??(Temporal Artery)?? HR:??120??(Peripheral)?? RR:??18?? BP:??160/98?? SpO2:??94%?? HT:??178??cm?? WT:??108??kg?? WT:??108??kg?? BMI:??34.09?? O2 Flow Rate:??2?? O2 Therapy:??Room air?? BSA:??2.31?? Vital signs and nursing notes reviewed ?? CONSTITUTIONAL: _Appears somewhat uncomfortable but not acutely distressed SKIN: _Warm, dry, and intact without rash EYES: _extraocular movements are grossly intact, clear conjunctiva HENT: _Normocephalic, atraumatic, moist mucus membranes NECK: _no obvious swelling, normal range of motion PULMONARY: _normal chest rise and fall, easy work of breathing,??no respiratory distress or stridor CARDIOVASCULAR: _Tachycardic around 120, regular rhythm,??distal extremities are warm and well perfused GASTROINTESTINAL: _nondistended, does endorse some tenderness lower abdomen without focality, rebound, guarding GENITOURINARY: _deferred NEUROLOGIC: _normal speech, moves all extremities with equal strength and coordination MUSCULOSKELETAL: _no gross deformities, atraumatic PSYCHIATRIC: _normal mood and affect ? Medical Decision Making: ? On my initial evaluation the patient appears generally well and non-toxic, they engage and answer questions appropriately, hemodynamically stable, mild tachycardia is noted, easy WOB with SpO2 saturation??mid 90s percent on room air, afebrile by oral temperature.?? Differential includes but not limited to cannabis??hyperemesis, cyclic vomiting, diverticulitis,??obstructive process, viral syndromes, electrode metabolic derangement, other. ??Will plan to check labs??and CT Procedure No Qualifying Data Reexamination/Reevaluation Labs reviewed???leukocytosis noted at 24, unclear if there is infectious foci for this or potentially reactive.?? His chemistry is notable for significant NJ with creatinine of 3.38, lactate of 3.1,hyponatremia 122.?? Suspect this is all likely prerenal/poor p.o. intake and fluids are infusing. ?? CT abdomen/pelvis did not show any obvious obstructive process or diverticulitis.?? Radiology report is in agreement.?? Does have some atelectasis versus pneumonia in the lower lung douglass.?? While in the emergency department, patient did develop some mild hypoxia with O2 sat of 89%.?? Placed on2 L nasal cannula.?? Discussed with With the hospitalist group.?? Chest x-ray pending at time of admission given Hayati new hypoxia ?? Medical Decision-Making: Clinical lab tests: ordered and reviewed -??Yes Tests in the radiology section of CPT??: ordered and reviewed -??Yes Tests in the medicine section of CPT??: ordered and reviewed -??Yes Review and summarize past medical records -??Yes - previous Cr with baseline around 1.3 Discuss the patient with other providers -??Yes Independent visualization of images, tracings, or specimens? Yes Assessment/Plan 1.??NJ (acute kidney injury)??N17.9 2.??Hyponatremia??E87.1 3.??Hypoxia??R09.02 4.??Pneumonia??J18.9 5.??CKD (chronic kidney disease)??N18.9 6.??Hypertensive disorder??I10 7.??Hyperlipidemia??E78.5 8.??Prostate cancer??C61 9.??Urinary retention??R33.9 Orders: phenol 1.4% topical spray, 1 sprays, Topical, [place], every 2 hr, PRN sore throat, First Dose: 07/04/23 17:05:00 EST Decision to Admit, 07/04/23 15:44:00 EST, Medical Unit Urinalysis with Micro if Indicated and Culture if Indicated, Urine, Stat Collect, 07/04/23 13:39:00EST, Once, Nurse collect, Print Label Medication Reconciliation Unchanged abiraterone (Zytiga 250 mg oral tablet)4 tab Oral (given by mouth) every day. ?? acetaminophen (acetaminophen 500 mg oral tablet)2 tab Oral (given by mouth) 3 times a day as neededas needed for pain. ?? amitriptyline (amitriptyline 10 mg oral tablet) ?? aspirin (aspirin 81 mg oral delayed release tablet)1 tab Oral (given by mouth) every day. ?? atorvastatin (atorvastatin 20 mg oral tablet)1 tab Oral (given by mouth) every evening. ?? calcium-vitamin D (Citracal Maximum + D 315 mg-6.25 mcg (250 intl units) oral tablet)2 tab Oral (given by mouth) every day. ?? cloNIDine (cloNIDine 0.1 mg oral tablet)1 tab Oral (given by mouth) 2 times a day. ?? HYDROmorphone (HYDROmorphone 4 mg oral tablet)1 tab Oral (given by mouth) 3 times a day as needed as needed for pain. ?? ondansetron (ondansetron 4 mg oral tablet, disintegrating)1 tab Sublingual (dissolve under the tongue) every 8 hours as needed severe nausea. ?? ondansetron (Zofran 4 mg oral tablet)1 tab Oral (given by mouth) every 8 hours. Refills: 0. ?? pantoprazole (pantoprazole 20 mg oral delayed release tablet)1 tab Oral (given by mouth) every day. ?? predniSONE (predniSONE 5 mg oral tablet)1 tab Oral (given by mouth) every day. ?? prochlorperazine (prochlorperazine 25 mg rectal suppository)1 Suppositories Per rectum (in the rectum) every 12 hours as needed severe nausea. ?? tamsulosin (tamsulosin 0.4 mg oral capsule)2 Capsules Oral (given by mouth) every day. ?? venlafaxine (venlafaxine 37.5 mg oral capsule, extended release)1 Capsules Oral (given by mouth) every day. Problem List/Past Medical History Ongoing NJ (acute kidney injury) Benign neoplasm of rectum Blood chemistry abnormal Chondromalacia of right patella CKD (chronic kidney disease) Depression H/O: fracture Hyperlipidemia Hypertensive disorder Hyponatremia Hypoxia Idiopathic osteoarthritis Nicotine dependence Obesity Obstruction of bile duct Pneumonia Prostate cancer Ulcer of esophagus Urinary retention Historical No qualifying data Procedure/Surgical History ???Colonoscopy (04/10/2019)???Subtotal parathyroidectomy (08/13/2016)???Cholecystectomy (11/22/2010)???Tonsillectomy Medication Administration Given Lactated Ringers Injection, 1000 mL, IV 0.9% NaCl bolus, 1000 mL, Hydration Bolus 0.9% NaCl bolus, 1000 mL, Hydration Bolus atorvastatin, 20 mg, Oral calcium (as carbonate)-vitamin D 600 mg-400 intl units oral tablet, 1 tab, Oral calcium chloride + Sodium Chloride 0.9% 100 mL, IV Piggyback cloNIDine, 0.1 mg, Oral heparin, 5000 units, Subcutaneous metoprolol succinate 100 mg oral tablet, extended release, 100 mg, Oral phenol 1.4% topical spray, 1 sprays, Topical tamsulosin, 0.8 mg, Oral Unasyn + Sodium Chloride 0.9% 100 mL, IV Piggyback Zofran, 4 mg, IV Push Allergies No Known Medication Allergies escitalopram Social History Alcohol Never Electronic Cigarette/Vaping Electronic Cigarette Use: Never. Substance Use Current, Marijuana, Daily Tobacco Former tobacco user Tobacco Use:.- Comments: Quit in 2012, used to smoke 1 pack/day Family History Anxiety: Mother and Father. Diagnostic Results ECG Independently interpreted in the absence of a recreation manager shows sinus tachycardia with a rate of 116,??normal axis, LA is appropriate at 130 ms, QRS is narrow??at 86 ms, QTc is not prolonged at 383 ms, no acute appearing ST/T- segment changes or evidence of acute regional ischemia or dysrhythmia Electronically Signed on 07/04/23 08:29 PM Ace Armijo MD History and physical note * January Joel MD: PERFORM Event Display: History and Physical Authored Date: [id number] LUDMILA FAIRCHILD :1965 Age:58 years Sex:Male Visit Date:07/04/2023 Primary Care Physician: Darrell [facility], Yoni Velazquez MD Chief Complaint 3 days n/v/d pain in lower abd hx cyclic vommiting. Denies fevers at home, denies blood in stool. No gallbladder, hx diverticulosis. States has urinated x1 in last 48 hrs. Distended abd. Currently being tx for prostate cancer. History of Present Illness The patient is a 58-year-old male with past medical history of prostate cancer, hyperlipidemia, hypertension, obesity, history of depression, CKD who presents to the emergency department with a chiefcomplaint of intractable nausea and vomiting.?? Patient states over the past 4 to 5 days he has been having nausea and vomiting persistently.?? He states that his throat is sore now due to his nauseaand vomiting.?? Patient has multiple abscesses such as this in the past.?? Denies any fevers or chills, chest pain, shortness of breath, abdominal pain, diarrhea, lightness or dizziness.?? Last bowelmovement was 2 days prior.?? He does report that he smokes marijuana.?? Vital signs remarkable for tachycardia with heart rate of 120 to 130 bpm, respiratory rate is 20 to 26 breaths/min blood pressures are within normal limits, temperature is 36.8 ??C, O2 saturation is 89% on room air.?? Labs are significant for WBC count of 24.5, hemoglobin 14.9, platelet count 330, sodium 122, chloride 84, BUN80, creatinine 3.38, calcium 7.7, total bilirubin 1.8, lactic acid 3.1-1.9, lipase 24.?? Chest x-ray revealed bibasilar right greater than left interstitial changes consistent with either atelectasisbut infiltrate is not excluded.?? CT of the abdomen and pelvis revealed right lower lobe atelectasis/pneumonia with other interstitial changes in the lung bases consistent with atelectasis no definite pleural effusion, no acute peritoneal cavity findings, severe degenerative changes of right hip, sm all hiatal hernia, uncomplicated diverticulosis. Review of Systems Constitutional:?No??fevers,?No??chills,?No??sweats Eye:?No??recent visual problems ENT:?No??ear pain,?No??nasal congestion,?No??sore throat Respiratory:?No??shortness of breath,?No??cough Cardiovascular:?No??Chest pain,?No??palpitations,?No??syncope Gastrointestinal:?Positive fornausea,?Positive for??vomiting,?No??diarrhea Genitourinary:?No??hematuria?? Tristen/Lymph:?No??bruising tendency,?No??swollen lymph glands Endocrine:?No??excessive thirst,??No??excessive hunger Musculoskeletal:??No??back pain,??No??neck pain,??No??joint pain,??No??muscle pain,??No??decreased range of motion Integumentary:?No??rash,?No??pruritus,?No??abrasions Neurologic:??Alert & oriented X 4 Psychiatric:?No??anxiety,?No??depression Physical Exam Vitals & Measurements T:??36.8?C ??(Temporal Artery)?? HR:??123??(Peripheral)?? HR:??119??(Monitored)?? RR:??23?? BP:??184/109?? SpO2:??96%?? HT:??178.000??cm?? WT:??110.00??kg??(Estimated)?? O2 Flow Rate:??2?? O2 Therapy:??Nasal cannula?? General:??Alert and oriented, well nourished,?No??acute distress Eye:??PERRL, EOMI,?Normal?conjunctiva HENT:??Normocephalic,??Normal?hearing, moist oral mucosa,?No??scleral icterus,?No??sinustenderness Neck:??Supple, non-tender,?No??carotid bruits,?No??JVD,?No??lymphadenopathy Lungs:??Clear to auscultation and percussion,?Non-labored?respiration Heart:??Tachycardic, regular??rhythm,?No??murmur,?No??gallop,?No??edema Abdomen:??Soft, non-tender, non-distended,?Normal?bowel sounds,?No??masses Musculoskeletal:?Normal?range of motion and strength,?No??tenderness,?No??swelling Skin:??Skin is warm, dry and pink,?No??rashes,?No??lesions Neurologic:??Awake, alert and oriented X4, CN II-XII grossly??intact Psychiatric:??Cooperative, appropriate mood and affect Assessment/Plan 1.??NJ (acute kidney injury)??N17.9 58-year-old male who presents to the emergency department with nausea and vomiting for 4 to 5 days.??This is a recurrent issue for him and has not had workup??for this in the past. ??He states that this??has happened to him multiple times over the past decade??with no??exact findings why. ??Patient has had endoscopies and colonoscopies performed in the past for this.?? Differential includes??cyclical vomiting, hyperemesis cannabinoid syndrome, gastritis, gastroenteritis. ??Will admit patient as inpatient as anticipate need for greater than 2 midnight stay or transfer discharge within 96 hours??due to the severity of his acute kidney injury on CKD with a creatinine of??3.3 with a baseline of approximately 1.2-1.3??as well as due to his hyponatremia with a sodium of 122 and symptomatic with weakness.?? Will start lactated Ringer's to avoid overcorrection of sodium. ??Continue to monitor sodium levels.?? Monitor renal function, urine output and electrolytes. ??Avoid nephrotoxic medicatio ns.?? Continue with antiemetics.?? Monitor on telemetry. ??Patient also hypocalcemic with a calciumof 7.1. ??Will give IV calcium at this time. ??Continue with p.o. calcium. Will check bladder scan to rule out postobstructive uropathy.?? As possible cause??of the NJ. 2.??Hyponatremia??E87.1 Sodium 122??with goal sodium of??128-130 in 24 hours. ??Continue lactated Ringer's. ??Continue to monitor sodium. 3.??Hypoxia??R09.02 Patient also hypoxic 89% on room air??possibly related to pneumonia seen on chest x-ray versus atelectasis however with his history of vomiting and it being in the right lower lobe mainly this is concern for aspiration pneumonia. ??Continue with Unasyn. ??Continue with O2 supplementation as needed to maintain O2 saturation greater than 92%. 4.??Pneumonia??J18.9 Above. 5.??CKD (chronic kidney disease)??N18.9 As above. 6.??Hypertensive disorder??I10 Continue clonidine point 1 mg p.o. twice daily. 7.??Hyperlipidemia??E78.5 Continue atorvastatin 20 mg p.o. daily. 8.??Prostate cancer??C61 History of stage IV prostate cancer.?? Follow-up outpatient. 9.??Urinary retention??R33.9 Continue tamsulosin 0.8 mg p.o. daily.?? Orders: Mylanta, 30 mL, Oral, Susp, every 6 hr, PRN dyspepsia, First Dose: 07/04/23 17:20:00 EST, Routine Unasyn + Sodium Chloride 0.9% 100 mL, 3 g = 1 EA, IV Piggyback, Powder-Inj, every 12 hr, AntibioticIndication Pneumonia- Aspiration, Administer over: 0.5 hr, First Dose: 07/04/23 17:06:00 EST, Routine, 200 mL/hr aspirin, 81 mg = 1 tab, Oral, Tab-Chew, Daily, First Dose: 07/05/23 9:00:00 EST atorvastatin, 20 mg = 2 tab, Oral, Tab, every evening, First Dose: 07/04/23 18:00:00 EST, Routine calcium chloride + Sodium Chloride 0.9% 100 mL, 1,000 mg = 10 mL, IV Piggyback, Soln-IV, Once, Administer over: 30 minutes, First Dose: 07/04/23 18:00:00 EST, Stop Date: 07/04/23 18:00:00 EST, Physician Stop, Routine, 200 mL/hr calcium (as carbonate)-vitamin D 600 mg-400 intl units oral tablet, 1 tab, Oral, Tab, BID for 30 days, First Dose: 07/04/23 21:00:00 EST, Stop Date: 08/03/23 20:59:00 EST, Physician Stop, Routine cloNIDine, 0.1 mg = 1 tab, Oral, Tab, BID, First Dose: 07/04/23 21:00:00 EST, Routine HYDROmorphone, 4 mg = 2 tab, Oral, Tab, TID, PRN pain, First Dose: 07/04/23 17:03:00 EST, Routine Lactated Ringers Injection 1,000 mL, Total Volume (mL): 1,000, 1,000 mL, Soln- IV, IV, 125 mL/hr, Start Date: 07/04/23 17:03:00 EST, 110 kg, Populate Charting Weight From Order, 2.33, m2 predniSONE, 5 mg = 1 tab, Oral, Tab, Daily, First Dose: 07/05/23 9:00:00 EST, Routine tamsulosin, 0.8 mg = 2 cap, Oral, Cap, Daily, First Dose: 07/05/23 9:00:00 EST, Routine venlafaxine, 37.5 mg = 1 cap, Oral, Cap-ER, Daily, First Dose: 07/05/23 9:00:00 EST Basic Metabolic Panel, Blood, Routine, 07/05/23 6:00:00 EST, every morning, Lab Collect CBC w/ Diff, Blood, Routine, 07/05/23 6:00:00 EST, every morning, Lab Collect PSO Admit to Inpatient, Semi-Private Telemetry, Inpatient, January Joel MD, 07/04/23 17:01:00 EST, 07/04/23 17:01:00 EST, 07/04/23 17:01:00 EST, 2 midnights or more Problem List/Past Medical History Ongoing NJ (acute kidney injury) Benign neoplasm of rectum Blood chemistry abnormal Chondromalacia of right patella CKD (chronic kidney disease) Depression H/O: fracture Hyperlipidemia Hypertensive disorder Hyponatremia Hypoxia Idiopathic osteoarthritis Nicotine dependence Obesity Obstruction of bile duct Pneumonia Prostate cancer Ulcer of esophagus Urinary retention Historical No qualifying data Procedure/Surgical History ???Colonoscopy (04/10/2019)???Subtotal parathyroidectomy (08/13/2016)???Cholecystectomy (11/22/2010)???Tonsillectomy Medications Inpatient aspirin, 81 mg= 1 tab, Oral, Daily atorvastatin, 20 mg= 2 tab, Oral, every evening calcium (as carbonate)-vitamin D 600 mg-400 intl units oral tablet, 1 tab, Oral, BID calcium chloride + Sodium Chloride 0.9% 100 mL cloNIDine, 0.1 mg= 1 tab, Oral, BID HYDROmorphone, 4 mg= 2 tab, Oral, TID, PRN Lactated Ringers Injection 1,000 mL, 1000 mL, IV Mylanta, 30 mL, Oral, every 6 hr, PRN phenol 1.4% topical spray, 1 sprays, Topical, every 2 hr, PRN predniSONE, 5 mg= 1 tab, Oral, Daily tamsulosin, 0.8 mg= 2 cap, Oral, Daily Unasyn + Sodium Chloride 0.9% 100 mL venlafaxine, 37.5 mg= 1 cap, Oral, Daily Home acetaminophen 500 mg oral tablet, 1000 mg= 2 tab, Oral, TID, PRN amitriptyline 10 mg oral tablet aspirin 81 mg oral delayed release tablet, 81 mg= 1 tab, Oral, Daily atorvastatin 20 mg oral tablet, 20 mg= 1 tab, Oral, every evening Citracal Maximum + D 315 mg-6.25 mcg (250 intl units) oral tablet, 2 tab, Oral, Daily cloNIDine 0.1 mg oral tablet, 0.1 mg= 1 tab, Oral, BID HYDROmorphone 4 mg oral tablet, 4 mg= 1 tab, Oral, TID, PRN ondansetron 4 mg oral tablet, disintegrating, 4 mg= 1 tab, SL, every 8 hr, PRN pantoprazole 20 mg oral delayed release tablet, 20 mg= 1 tab, Oral, Daily predniSONE 5 mg oral tablet, 5 mg= 1 tab, Oral, Daily prochlorperazine 25 mg rectal suppository, 25 mg= 1 supp, LA, every 12 hr, PRN tamsulosin 0.4 mg oral capsule, 0.8 mg= 2 cap, Oral, Daily venlafaxine 37.5 mg oral capsule, extended release, 37.5 mg= 1 cap, Oral, Daily Zofran 4 mg oral tablet, 4 mg= 1 tab, Oral, every 8 hr Zytiga 250 mg oral tablet, 1000 mg= 4 tab, Oral, Daily Allergies No Known Medication Allergies escitalopram Social History Alcohol Never Electronic Cigarette/Vaping Electronic Cigarette Use: Never. Substance Use Current, Marijuana, Daily Tobacco Former tobacco user Tobacco Use:.- Comments: Quit in 2012, used to smoke 1 pack/day Family History Anxiety: Mother and Father. Lab Results Test Name Test Result Date/Time WBC 24.5 x10^3/mcL 07/04/2023 13:35 EST RBC 4.4 x10^6/mcL 07/04/2023 13:35 EST Hgb 14.9 g/dL 07/04/2023 13:35 EST Hct 41.1 % 07/04/2023 13:35 EST MCV 93.0 fL 07/04/2023 13:35 EST MCH 33.7 pg 07/04/2023 13:35 EST MCHC 36.3 g/dL 07/04/2023 13:35 EST RDW-CV 13.1 % 07/04/2023 13:35 EST Platelets 330 x10^3/mcL 07/04/2023 13:35 EST Segs Man 93 % 07/04/2023 13:35 EST Lymph Man 5 % 07/04/2023 13:35 EST Barbour Man 2 % 07/04/2023 13:35 EST Eos Man 0 % 07/04/2023 13:35 EST Baso Man 0 % 07/04/2023 13:35 EST Band Man 0 % 07/04/2023 13:35 EST Abs Neut Man 22.8 x10^3/mcL 07/04/2023 13:35 EST RBC Morph Normal 07/04/2023 13:35 EST Slide Review Man Diff 07/04/2023 13:35 EST Sodium Level 128 mmol/L 07/04/2023 13:43 EST Sodium Level 122 mmol/L 07/04/2023 13:35 EST Potassium Level 3.6 mmol/L 07/04/2023 13:43 EST Potassium Level 3.6 mmol/L 07/04/2023 13:35 EST Chloride Level 89 mmol/L 07/04/2023 13:43 EST Chloride Level 84 mmol/L 07/04/2023 13:35 EST CO2 25 mmol/L 07/04/2023 13:43 EST CO2 25 mmol/L 07/04/2023 13:35 EST Alk Phos 95 unit/L 07/04/2023 13:43 EST Alk Phos 109 unit/L 07/04/2023 13:35 EST AST 27 unit/L 07/04/2023 13:43 EST AST 27 unit/L 07/04/2023 13:35 EST ALT 22 unit/L 07/04/2023 13:43 EST ALT 24 unit/L 07/04/2023 13:35 EST BUN 82 mg/dL 07/04/2023 13:43 EST BUN 88 mg/dL 07/04/2023 13:35 EST Glucose Level 162 mg/dL 07/04/2023 13:43 EST Glucose Level 208 mg/dL 07/04/2023 13:35 EST Creatinine Level 2.99 mg/dL 07/04/2023 13:43 EST Creatinine Level 3.38 mg/dL 07/04/2023 13:35 EST eGFR AA 23 07/04/2023 13:43 EST eGFR AA 20 07/04/2023 13:35 EST eGFR Non-AA 23 07/04/2023 13:43 EST eGFR Non-AA 20 07/04/2023 13:35 EST Calcium Level 7.1 mg/dL 07/04/2023 13:43 EST Calcium Level 7.7 mg/dL 07/04/2023 13:35 EST Protein Total 7.3 g/dL 07/04/2023 13:43 EST Protein Total 8.3 g/dL 07/04/2023 13:35 EST Albumin Level 3.8 g/dL 07/04/2023 13:43 EST Albumin Level 4.4 g/dL 07/04/2023 13:35 EST Bilirubin Total 1.4 mg/dL 07/04/2023 13:43 EST Bilirubin Total 1.8 mg/dL 07/04/2023 13:35 EST Lactic Acid Lvl 1.9 mmol/L 07/04/2023 13:43 EST Lactic Acid Lvl 3.1 mmol/L 07/04/2023 13:35 EST Lipase Level 22 unit/L 07/04/2023 13:43 EST Lipase Level 24 unit/L 07/04/2023 13:35 EST SARS-CoV-2 (COVID-19) RNA (ID Now) Not Detected 07/04/2023 17:09 EST Electronically Signed on 07/04/23 05:30 PM January Joel MD Discharge summary * January Joel MD: PERFORM Event Display: Discharge Summary Authored Date: [id number] LUDMILA FAIRCHILD :1965 Age:58 years Sex:Male Visit Date:07/04/2023 Primary Care Physician: Darrell GALLO, Yoni Velazquez MD Hospital Course The patient is a 58-year-old male with past medical history of prostate cancer, hyperlipidemia, hypertension, obesity, history of depression, CKD who presented to the emergency department on 2022 with a chief complaint of intractable nausea and vomiting.?? Patient was admitted to the hospital for this acute intractable nausea and vomiting likely related to cyclical vomiting possibly related to cannabinoid hyperemesis syndrome as well as due to his electrolyte abnormalities which included hyponatremia with a sodium of 122 and this was symptomatic as well as due to his acute kidneyinjury on CKD with his creatinine of 3.3 likely prerenal secondary to his nausea and vomiting and de hydration and hypoxia likely related to aspiration from his vomiting.?? Patient received IV fluids and his sodium significantly improved as well as his creatinine to 1.8 and his leukocytosis which was likely reactive from stress has improved to 24 to 16.?? He received IV antibiotics for his possible aspiration and will be discharged with Augmentin with 2 pills for take home as the pharmacy is closed for giving.?? For his other chronic medical conditions his home medications were continued.?Patient made??in unexpected??quick recovery. ??At the time of discharge patient was stable to return home.?? Patient will require follow-up with his PCP within 1 to 2 weeks. Physical Exam Vitals & Measurements T:??36.5?C ??(Temporal Artery)?? TMIN:??36.3?C ??(Temporal Artery)?? TMAX:??36.8?C ??(Temporal Artery)?? HR:??90??(Monitored)?? RR:??16?? BP:??150/82?? SpO2:??92%?? HT:??178??cm?? WT:??107.8??kg?? BMI:??34.09?? Pain Score:??0?? O2 Flow Rate:??2?? O2 Therapy:??Room air?? BSA:??2.31?? General:??Alert and oriented, obese,?No??acute distress Eye:??PERRL, EOMI,?Normal?conjunctiva HENT:??Normocephalic,??Normal?hearing, moist oral mucosa,?No??scleral icterus,?No??sinustenderness Neck:??Supple, non-tender, no??JVD,?No??lymphadenopathy Lungs:??Clear to auscultation and percussion,?Non-labored?respiration Heart:??Tachycardic, regular??rhythm,?No??murmur,?No??gallop,?No??edema Abdomen:??Soft, non-tender, non-distended,?Normal?bowel sounds,?No??masses Musculoskeletal:?Normal?range of motion and strength,?No??tenderness,?No??swelling Skin:??Skin is warm, dry and pink,?No??rashes,?No??lesions Neurologic:??Awake, alert and oriented X4, CN II-XII grossly??intact Psychiatric:??Cooperative, appropriate mood and affect Procedure/Surgical History ???Colonoscopy (04/10/2019)???Subtotal parathyroidectomy (08/13/2016)???Cholecystectomy (11/22/2010)???Tonsillectomy Social History Alcohol Never Electronic Cigarette/Vaping Electronic Cigarette Use: Never. Substance Use Current, Marijuana, Daily Tobacco Former tobacco user Tobacco Use:.- Comments: Quit in 2012, used to smoke 1 pack/day Discharge Plan Discharge planning greater than 30 minutes. 1.??NJ (acute kidney injury)??N17.9 The patient is a 58-year-old male with past medical history of prostate cancer, hyperlipidemia, hypertension, obesity, history of depression, CKD who presented to the emergency department on 2022 with a chief complaint of intractable nausea and vomiting.?? Patient was admitted to the hospital for this acute intractable nausea and vomiting likely related to cyclical vomiting possibly related to cannabinoid hyperemesis syndrome as well as due to his electrolyte abnormalities which included hyponatremia with a sodium of 122 and this was symptomatic as well as due to his acute kidneyinjury on CKD with his creatinine of 3.3 likely prerenal secondary to his nausea and vomiting and de hydration and hypoxia likely related to aspiration from his vomiting.?? Patient received IV fluids and his sodium significantly improved as well as his creatinine to 1.8 and his leukocytosis which was likely reactive from stress has improved to 24 to 16.?? He received IV antibiotics for his possible aspiration and will be discharged with Augmentin with 2 pills for take home as the pharmacy is closed for .?? For his other chronic medical conditions his home medications were continued.?Patient made??in unexpected??quick recovery. ??At the time of discharge patient was stable to return home.?? Patient will require follow-up with his PCP within 1 to 2 weeks. 2.??Hyponatremia??E87.1 3.??Hypoxia??R09.02 4.??Pneumonia??J18.9 5.??CKD (chronic kidney disease)??N18.9 6.??Hypertensive disorder??I10 7.??Hyperlipidemia??E78.5 8.??Prostate cancer??C61 9.??Urinary retention??R33.9 Orders: acetaminophen, 650 mg = 2 tab, Oral, Tab, every 6 hr, PRN pain, First Dose: 07/04/23 18:06:00 EST, Routine Mylanta, 30 mL, Oral, Susp, every 6 hr, PRN dyspepsia, First Dose: 07/04/23 17:20:00 EST, Routine amoxicillin-clavulanate 875 mg-125 mg oral tablet, 1 tab, Oral, every 12 hr, # 14 tab, 0 Refill(s),Pharmacy: [facility] #[id number], 178, cm, 07/04/23 18:39:00 EST, Height, 110, kg, 07/04/23 13:22:00 EST, Weight Dosing aspirin, 81 mg = 1 tab, Oral, Tab-Chew, Daily, First Dose: 07/05/23 9:00:00 EST atorvastatin, 20 mg = 2 tab, Oral, Tab, every evening, First Dose: 07/04/23 18:00:00 EST, Routine calcium (as carbonate)-vitamin D 600 mg-400 intl units oral tablet, 1 tab, Oral, Tab, BID for 30 days, First Dose: 07/04/23 21:00:00 EST, Stop Date: 08/03/23 20:59:00 EST, Physician Stop, Routine cloNIDine, 0.1 mg = 1 tab, Oral, Tab, BID, First Dose: 07/04/23 17:49:00 EST, Routine heparin, 5,000 units = 1 mL, Subcutaneous, Soln, every 8 hr, First Dose: 07/04/23 18:06:00 EST, NOW HYDROmorphone, 4 mg = 2 tab, Oral, Tab, TID, PRN pain, First Dose: 07/04/23 17:03:00 EST, Routine influenza virus vaccine, 0.5 mL, IM, Susp, Once, PRN other (see comment), First Dose: 07/05/23 9:53:00 EST, Physician Stop, Routine Lactated Ringers Injection 1,000 mL, Total Volume (mL): 1,000, 1,000 mL, Soln- IV, IV, 125 mL/hr, Start Date: 07/04/23 17:03:00 EST, 110 kg, Populate Charting Weight From Order, 2.33, m2 lidocaine 1% injectable solution, 1 mg 0.1 mL, Intradermal, Soln, As Directed, PRN other (see comment), First Dose: 07/04/23 18:06:00 EST, Routine metoprolol succinate 100 mg oral tablet, extended release, 100 mg = 1 tab, Oral, Tab-ER, Daily for 30 days, First Dose: 07/04/23 17:50:00 EST, Stop Date: 08/03/23 8:59:00 EST, Physician Stop, Routine metoprolol succinate 100 mg oral tablet, extended release, 100 mg = 1 tab, Oral, Daily, 0 Refill(s) ondansetron, 4 mg = 2 mL, IV Push, Soln, every 6 hr, PRN nausea/vomiting, First Dose: 07/04/23 18:06:00 EST, Routine pantoprazole, 40 mg = 1 EA, IV Push, Powder-Inj, Daily, First Dose: 07/04/23 6:00:00 EST, Routine pneumococcal 23-polyvalent vaccine, 0.5 mL, IM, Soln, Once, PRN other (see comment), First Dose: 07/05/23 9:53:00 EST, Physician Stop, Routine predniSONE, 5 mg = 1 tab, Oral, Tab, Daily, First Dose: 07/05/23 9:00:00 EST, Routine Normal Saline Flush, 10 mL, IV Push, Soln, every 12 hr (cynthia), First Dose: 07/04/23 21:00:00 EST, Routine Sodium Chloride 0.9% 1,000 mL, Total Volume (mL): 1,000, 1,000 mL, Soln-IV, IV, 30 mL/hr, Start Date: 07/04/23 18:06:00 EST, 110 kg, Populate Charting Weight From Order, 2.33, m2 tamsulosin, 0.8 mg = 2 cap, Oral, Cap, Daily, First Dose: 07/04/23 18:01:00 EST, Routine venlafaxine, 37.5 mg = 1 cap, Oral, Cap-ER, Daily, First Dose: 07/05/23 9:00:00 EST Ambulate as Tolerated, 07/04/23 18:06:00 EST, PRN Basic Metabolic Panel, Blood, Routine, 07/05/23 6:00:00 EST, every morning, Lab Collect Basic Metabolic Panel, Blood, Routine, *Est. 07/08/23 +/- 2 days, Once, Lab Collect, Order for future visit Cardiac Monitoring, 07/04/23 18:06:00 EST, Telemetry CBC w/ Diff, Blood, Routine, 07/05/23 6:00:00 EST, every morning, Lab Collect CBC w/o Diff, Blood, Routine, *Est. 07/08/23 +/- 2 days, Once, Lab Collect, Order for future visit Diet Order, 07/04/23 18:06:00 EST, Regular Discharge Activity Restrictions, as tolerated Discharge Diet Instruction, Regular home diet Discharge Patient, 07/05/23 9:53:00 EST, Home Independently Notify Provider of Vital Signs, 07/04/23 18:06:00 EST, SpO2 < 92% on 2L O2 NC, T > 101.5, HR > 100, HR < 50, SBP greater than 160, SBP less than 90, DBP greater than 90, DBP less than 50,Resp Rate greater than 30, Resp Rate less than 8, Constant Indicator Oxygen Therapy, SpO2 goal 90% or greater, PRN, Yuli Odonnell Admit to Inpatient, Semi-Private Telemetry, Inpatient, January Joel MD, 07/04/23 17:01:00 EST, 07/04/23 17:01:00 EST, 07/04/23 17:01:00 EST, 2 midnights or more Resuscitation Status, 07/04/23 18:06:00 EST, Full Code Sequential Compression Devices (SCD's), 07/04/23 18:06:00 EST, Constant Order, Intermittent pneumatic compression, 07/04/23 18:06:00 EST Vital Signs, 07/04/23 18:06:00 EST, Constant order, every 4 hrs Weight, 07/04/23 18:06:00 EST, PRN, Admission and Discharge All Diagnoses This Visit [place] (acute kidney injury) Hyponatremia Hypoxia Pneumonia CKD (chronic kidney disease) Hypertensive disorder Hyperlipidemia Prostate cancer Urinary retention Patient Education Hyponatremia, [id number] Follow Up With When Contact Information [facility], Yoni Velazquez MD Within [address] [address]- [phone] Additional Instructions: Medication Reconciliation New Prescription amoxicillin-clavulanate (amoxicillin-clavulanate 875 mg-125 mg oral tablet)1 tab Oral (given by mouth) every 12 hours for 7 Days. Refills: 0. ?? metoprolol (metoprolol succinate 100 mg oral tablet, extended release)1 tab Oral (given by mouth) every day. ?? Unchanged abiraterone (Zytiga 250 mg oral tablet)4 tab Oral (given by mouth) every day. ?? acetaminophen (acetaminophen 500 mg oral tablet)2 tab Oral (given by mouth) 3 times a day as neededas needed for pain. ?? amitriptyline (amitriptyline 10 mg oral tablet) ?? aspirin (aspirin 81 mg oral delayed release tablet)1 tab Oral (given by mouth) every day. ?? atorvastatin (atorvastatin 20 mg oral tablet)1 tab Oral (given by mouth) every evening. ?? calcium-vitamin D (Citracal Maximum + D 315 mg-6.25 mcg (250 intl units) oral tablet)2 tab Oral (given by mouth) every day. ?? cloNIDine (cloNIDine 0.1 mg oral tablet)1 tab Oral (given by mouth) 2 times a day. ?? HYDROmorphone (HYDROmorphone 4 mg oral tablet)1 tab Oral (given by mouth) 3 times a day as needed as needed for pain. ?? ondansetron (ondansetron 4 mg oral tablet, disintegrating)1 tab Sublingual (dissolve under the tongue) every 8 hours as needed severe nausea. ?? ondansetron (Zofran 4 mg oral tablet)1 tab Oral (given by mouth) every 8 hours. Refills: 0. ?? pantoprazole (pantoprazole 20 mg oral delayed release tablet)1 tab Oral (given by mouth) every day. ?? predniSONE (predniSONE 5 mg oral tablet)1 tab Oral (given by mouth) every day. ?? prochlorperazine (prochlorperazine 25 mg rectal suppository)1 Suppositories Per rectum (in the rectum) every 12 hours as needed severe nausea. ?? tamsulosin (tamsulosin 0.4 mg oral capsule)2 Capsules Oral (given by mouth) every day. ?? venlafaxine (venlafaxine 37.5 mg oral capsule, extended release)1 Capsules Oral (given by mouth) every day. Electronically Signed on 07/05/23 12:00 PM January Joel MD Patient Care team information Care Team Personnel Name: Therese Russell MUSIC THEORY PROFESSOR Position: Physician Member Role: Nurse Practitioner Name: Yoni Mccarty MD Position: No Access Member Role: Informed Provider Address: Address: [facility] [address] [place], [place] [address] Name: Sofía Yin MUSIC THEORY PROFESSOR Position: Physician Member Role: Nurse Practitioner Address: Address: [address] [place] [id number] Name: Ace Armijo MD Position: Physician Member Role: ED Physician Address: Address: [address] [place] [address] [place] [address] Name: Beena Meier RN Position: Nurse Member Role: Registered Nurse Care Team Related Persons Name: TONY KAUR Name: SALONI FAIRCHILD Address: Home [address] [place] [address], [phone]
--- OUTSIDE RECORDS SUMMARY | 2023-07-18 20:57 | XMS_ITS | Continuity of Care Document ---
Author Name Unknown Organization [facility] Address [address] [place] [address] Care Team Providers Care Information Technology Technician Name Role Phone Yoni Reveles Primary Care Physician Encounter [facility]_[place] Date(s): 07/03/22 - 07/03/22 [facility] [address] [place] [address] Discharge Disposition: Home or Self Care Attending Physician: Aguila Hernandez MD Admitting Physician: Aguila Hernandez MD Allergies, Adverse Reactions, Alerts No Known Medication Allergies Substance Reaction Severity Status escitalopram Unknown Active Functional Status 07/03/22 Family Member Travel History No recent t ravel Recent Travel History No recent travel Other exposure to Infectious Disease Non e Medications acetaminophen 500 mg oral tablet 1,000 [...] rectal suppository 25 mg = 1 supp, ND, every 12 hr, PRN severe nausea Start [...] hr, # 20 tab, 0 Refill(s), Pharmacy: [id number], [id number], cm, 07/03/22 2:11:00 EST, Height/Length [...] List Name Date Basic Metabolic Panel (BMP) 07/03/22 .Manual Differential (NCTY) 07/03/22 CBC w/ Diff 07/03/22 Comprehensive Metabolic Panel (CMP) 06/14 09/03 Lipase Level 07/03/22 Most recent to oldest [Reference Range]: 1 2 WBC [5.0-10.0 x10^3/mcL] 14.2 x10^3/mcL *HI* (07/03/22 2:16 AM) RBC [4.6-6.0 x10^6/mcL] 4.4 x10^6/mcL *LOW* (07/03/22 2:16 AM) Segs Man [40-75 %] 90 % *HI* (07/03/22 2:16 AM) Lymph Man [20-50 %] 6 % *LOW* (07/03/22 2:16 AM) [place] Man 4 % *NA* (07/03/22 2:16 AM) Eos Man 0 % *NA* (07/03/22 2:16 AM) BUN [7-18 mg/dL] 21 mg/dL *HI* (07/03/22 4:47 AM) 21 mg/dL *HI* (07/03/22 2:16 AM) Glucose Level [74-106 mg/dL] 131 mg/dL *HI* (07/03/22 4:47 AM) 178 mg/dL *HI* (07/03/22 2:16 AM) Potassium Level [3.5-5.1 mmol/L] 4.4 mmo l/L (07/03/22 4:47 AM) 5.0 mmol/L 1 (07/03/22 2:16 AM) MCV [80.0-96.0] 98.2 *HI* (07/03/22 2:16 AM) RBC Morph Normal (07/03/22 2:16 AM) AST [15-37 unit/L] 33 unit/L (07/03/22 2:16 AM) ALT [16-63 unit/L] 27 unit/L (07/03/22 2:16 AM) MCHC [31.0-35.0 g/dL] 34.3 g/dL (07/03/22 2:16 AM) Sodium Level [136-145 mmol/L] 141 mmol/L (07/03/22 4:47 AM) 140 mmol/L (07/03/22 2:16 AM) Hct [41.0-51.0 %] 43.7 % (07/03/22 2:16 AM) Lipase Level [16-77 unit/L] 18 unit/L (07/03/22 2:16 AM) Calcium Level [8.5-10.1 mg/dL] 8.7 mg/dL (07/03/22 4:47 AM) 10.1 mg/dL (07/03/22 2:16 AM) Albumin Level [3.4-5.0 g/dL] 5.0 g/dL (07/03/22:16 AM) Protein Total [6.4-8.2 g/dL] 8.7 g/dL *HI* (07/03/22 2:16 AM) MCH [26.0-32.0 pg] 33.7 pg *HI* (07/03/22 2:16 AM) Bilirubin Total [0.2-1.0 mg/dL] 1.4 mg/d L *HI* (07/03/22 2:16 AM) Hgb [14.0-18.0 g/dL] 15.0 g/dL (07/03/22 2:16 AM) Alk Phos [46-146 unit/L] 100 unit/L (07/03/22 2:16 AM) Band Man [0-5 %] 0 % (07/03/22 2:16 AM) Platelets [130-450 x10^3/mcL] 322 x10^3/ mcL (07/03/22 2:16 AM) CO2 [21-32 mmol/L] 24 mmol/L (07/03/22 4:47 AM) 23 mmol/L (07/03/22 2:16 AM) eGFR Non-AA [>=60] 54 *LOW* (07/03/22 4:47 AM) 42 *LOW* (07/03/22 2:16 AM) eGFR AA [>=60] 54 *LOW* (07/03/22 4:47 AM) 42 *LOW* (07/03/22 2:16 AM) Chloride Level [98-107 mmol/L] 106 mmol/ L (07/03/22 4:47 AM) 102 mmol/L (07/03/22 2:16 AM) RDW-CV [11.5-17.0 %] 12.3 % (07/03/22 2:16 AM) Abs Neut Man 12.8 x10^3/mcL *NA* (07/03/22 2:16 AM) Creatinine Level [0.70-1.30 mg/dL] 1.48 mg/dL *HI* (07/03/22 4:47 AM) 1.82 mg/dL *HI* (07/03/22 2:16 AM) Baso Man [0-1 %] 0 % (07/03/22 2:16 AM) 1Result Comment: sample slightly hemolyzed, lytes may be affected Vital Signs Most recent to oldest [Reference Range]: 1 2 3 Temperature Temporal Artery [36-38 Deg C] 36.8 Deg C (07/03/22 1:56 AM) Peripheral Pulse Rate [60-100 bpm] 86 bpm (07/03/22 5:10 AM) 88 bpm (07/03/22 3:29 AM) 90 bpm (07/03/22 1:56 AM) Respiratory Rate [12-24 br/min] 18 br/min (07/03/22 5:10 AM) 18 br/min (07/03/22 3:29 AM) 18 br/min (07/03/22 1:56 AM) Blood Pressure [90-140/60-90 mmHg] 193/97mmHg *HI* (07/03/22 3:29 AM) 199/105mmHg *HI* (07/03/22 1:56 AM) Mean Arterial Pressure, Cuff [65-140 mmHg] 129 mmHg (07/03/22 3:29 AM) Weight Dosing 95.25 kg (07/03/22 2:11 AM) Weight Estimated 95.25 kg (07/03/22 1:56 AM) Height/Length Dosing 178.000 cm (07/03/22 2:11 AM) Height/Length Estimated 178.000 cm (07/03/22 1:56 AM) Social History Social History Type Response Tobacco Former tobacco user Tobacco Use:. 1 Sex Male 1Quit in 2012, used to smoke 1 pack/day Physician Emergency department Note * Aguila Hernandez MD: PERFORM Event Display: ED Note Physician Authored Date: [id number] LUDMILA FAIRCHILD :1965 Age:57 years Sex:Male Visit Date:07/03/2022 Primary Care Physician: Darrell YOUNGER, Yoni Velazquez MD HPI 57-year-old obese male with a history of recurrent??N/V, NJ, prostate CA (currently on radiation treatment), HLD, HTN, and urinary retention presents for evaluation of recurrent, typical nausea and vomiting since yesterday morning, patient notes recurrent episodes of nausea and vomiting over the last 15 years.??Patient reports that he previously used to??have partial relief of symptoms with hot showers, however this is no longer effective. Patient notes THC usage. No fevers, chills, continues to pass urine, flatus, and stool. Patient notes that he has not gone more than a couple days withoutmarijuana usage in the last 15 years. Has previously been advised to stop. Patient notes he ran outof [employer] several days ago. ?? M/S/F/SocHx notable for: please see HPI; remainder reviewed with patient and in chart.? ROS: Negative constitutional, eye, cardiovascular, pulmonary, GI, , MSK, skin, neurologic, psychiatric, endocrine unless noted in the HPI. ?? Exam HR 90, RR 18, BP 199/105, T 36.8?C, SaO2 99% on room air. Gen:??Pleasant, non-toxic appearing, resting in moderate discomfort. Patient with loud recurrent forceful retching sounds with minimal emesis. Moderately anxious. HEENT: NC, AT, PEERL, EOMI. Resp: Clear to auscultation bilaterally, normal work of breathing, no accessory muscle usage. Card: Regular rate and rhythm with no murmurs, rubs, or gallops, extremities warm and well perfused.?? GI: Non-tender to palpation throughout all quadrants, non-distended, no rebound or guarding. : No suprapubic tenderness to palpation. MSK: No visible deformities, strength and tone without visually appreciable deficit. Skin: Normal color with no visible lesions. Neuro: alert and oriented?3, no facial asymmetry, vision and hearing WNL. Psych: Moderately anxious, pleasant. ?? Labs?? WBC 14.2, Hb 15.0, sodium 140, potassium 5.0, creatinine 1.2 AST 33, ALT 27, ALP 100, total bilirubin 1.4, lipase 18.? BMP (repeat) sodium 141, potassium 4.1, creatinine 1.48. ?? Imaging EKG: SR at??90??BPM, QTc 473 msec,no ST-segment elevations or depressions, T- wave inversions or newLBBB. ?? MDM Previous chart, nursing note, labs, imaging, and vitals reviewed.?? A:??57-year-old obese male with a history of recurrent??N/V, NJ, prostate CA (currently on radiation treatment), HLD, HTN, and urinary retention presents for evaluation of recurrent, typical nausea and vomiting since yesterday morning, patient notes recurrent episodes of nausea and vomiting over the last 15 years.? Evaluation: 2.5 mg droperidol and 1 L NS given with significant improvement in symptoms. Patient endorsed mild ongoing nausea and abdominal discomfort. Abdominal exam remained benign. QTC checked viaEKG, this is within acceptable limits. A further 2.5 mg droperidol was ordered for further symptom management. A second liter NS was given for the patient's NJ and BMP will be rechecked. Patient wasalso given 4 mg Zofran and a GI cocktail (expressed discomfort in his throat secondary to vomiting). A CT abdomen pelvis was considered, however as the patient has had multiple prior evaluations for virtually identical symptoms, similar (or higher) level of leukocytosis, and he has a benign exam, imaging is not felt to be clinically indicated at the present time. No features on history or exam tosuggest a surgical abdomen at the time of his ED evaluation. Given the history of recurrent cyclical vomiting, difficulty in symptom control with Zofran, prior relief with hot showers, and ongoing THC usage, tentatively suspect cannabinoid hyperemesis syndrome. Patient recommended to discontinue THC for at least 6 weeks to see if symptoms resolve. Repeat BMP with significant reduction in the patient's NJ, creatinine now at baseline. Patient taking PO well??while in the ER. ?? Disposition: Discharged with Rx for Zofran. ?? Impression: Nausea vomiting, NJ (resolved). ?? (please reference below for remainder of encounter information) Critical Care Time Organ system(s): Renal??(due to NJ requiring antiemetics, IVF, and EKG for management). Intervention: Assessment of the patient, interpretation of studies, communication related to patient care. Time: 30 minutes were spent directly related to patient care exclusive of separately billed procedures Electronically Signed on 07/03/22 05:42 AM Aguila Hernandez MD Emergency department Discharge instructions * Aguila Hernandez MD: PERFORM Event Display: ED Discharge Information Authored Date: [id number] LUDMILA FAIRCHILD :1965 Age:57 years Sex:Male Visit Date:07/03/2022 Primary Care Physician: Yoni Reveles MD Discharge Instructions We would like to thank you for allowing us to assist you with your healthcare needs. The following includes patient education materials and information regarding your injury/illness. ?? You were seen at [facility] for evaluation for evaluation of??nausea and vomiting. ??Atthe time of your evaluation your symptoms are tentatively believed to be due to cannabinoid hyperemesis syndrome. ??Please discontinue using all THC containing products for at least 6 weeks to see ifyour nausea and vomiting resolved. ??For treatment of nausea you may take the prescribed Zofran.??Please read and follow all of the instructions below. ?? Please follow up with your primary care physician??within 48 hours for repeat evaluation of your asymptomatic hypertension as well as today's presentation. When calling for follow-up care, please make the office aware that this follow- up is from your recent emergency room visit.? Your care today was limited to identifying and treating emergent medical problems only. Many peoplehave subtle differences in their test results that require follow up with their outpatient physician(s) to correctly determine if this represents a normal variation or concerning abnormality with respect to your specific health.??The care given to you today was limited to identifying and treating emergent medical problems - you need to request a copy of all of your medical records from today's visit and follow up with your outpatient physician(s) to review both today's visit and your overall health. If you have any new symptoms or if you are at all concerned about your health please return immediately to the emergency department. ?? Prescriptions: If you are uninsured or have financial difficulties with filling your prescription(s), you may consider using a free pharmacy discount service such as [employer] ([employer]) or [employer] ([employer]). These services allow you to search for a medication on your phone (or computer) and obtain a coupon that usually has a significant discount from the list ramsey at a pharmacy. Your physician does not have a financial relationship with either of these services. You may also wish to speak with your physician to determine if lower cost prescriptions are possible. ?? You were diagnosed with cannabinoid hyperemesis syndrome. ?This is a condition in which a patient often has severe vomiting after long- term use of marijuana.?The only treatment of cannabinoid hyperemesis syndrome is to stop using marijuana. Some patients say that their symptoms get better by taking a hot shower, but this is just a temporary fix. ?You are safe to go home. It is important to stop using marijuana to help resolve your nausea, vomiting, and belly pain.?We don???t think your condition is dangerous right now. Still, it is important to be careful. Sometimes a problem that seems small can get serious later. This is why it is very important to come back here or go to the nearest Emergency Department if you don t get better or your symptoms get worse. ?? YOU SHOULD SEEK MEDICAL ATTENTION IMMEDIATELY, EITHER HERE OR AT THE NEAREST EMERGENCY DEPARTMENT, IF ANY OF THE FOLLOWING OCCUR: ?Worsening pain. If your pain does not go away in the next 12-24 hours please return to the emergency department or see your primary care physician promptly. ?You cannot keep fluids down or if you are vomiting dark green material, coffee ground like material, or bright bloody material. ?If you have bloody bowel movements or bowel movements that are dark and tar like. ?If you are unable to pass flatus (gas) or stool for more than 8 hours. ?If you have a fever > 100.4??F or shaking chills. ?If you have yellow skin or eyes or dark brown urine. ?If your pain moves to the right lower corner (quadrant) of your abdomen. ?If you are light headed upon standing or passing out.?Many things can cause abdominal pain. Examples include viral infections and bowel (intestine) spasms. You might need another examination or more tests to find out why you have pain. ?If you are otherwise concerned about your health.? High Blood Pressure (Hypertension) When you were in the emergency department you had an abnormally high blood pressure. High blood pressure can be without symptoms. However high blood pressure can lead to many medical problems including kidney disease, strokes, and heart attacks. Your blood pressure may have been elevated due to pain or the stress of being in the emergency department, however half of people with an elevated blood pressure in the emergency department have mcc problems with high blood pressure.? Please see your primary care physician in 2-3 days for a repeat check of your blood pressure. This may help prevent many health serious problems in the future. ? Please return to the emergency department if you develop any of the following: chest pain, shortness of breath, new or severe headache, changes in vision or hearing, weakness, or if you are otherwiseconcerned about your health. ? Discharge Vitals Temperature??(Temporal Artery) 98.2 ??F (36.8 ??C) Heart Rate??(Peripheral) 86 Respiratory Rate?? 18 Blood Pressure?? 193/97?? Height?? 70.08 in (178.000 cm) Weight??(Estimated) 210.03 lb (95.25 kg) Allergies No Known Medication Allergies escitalopram You were treated today on an emergency basis; it may be esteban to contact your primary care provider to notify them of your visit today. You may have been referred to your regular doctor or a specialist, please follow up as instructed. If your condition worsens or you can't get in to see the doctor, contact the Emergency Department. Medications What How Much When Instructions Next Dose Changed ondansetron (ondansetron 4 mg oral tablet, disintegrating) 1 tab Sublingual (dissolve under the tongue) Every 8 hours as needed for severe nausea Changed ondansetron (Zofran 4 mg oral tablet) 1 tab Oral (given by mouth) Every 8 hours Pickup at [facility] Unchanged abiraterone (Zytiga 250 mg oral tablet) 4 tab Oral (given by mouth) Every day Unchanged acetaminophen (acetaminophen 500 mg oral tablet) 2 tab Oral (given by mouth) 3 times a day as needed for as needed for pain Unchanged aspirin (aspirin 81 mg oral delayed [...] needed for as needed for pain Unchanged pantoprazole (pantoprazole 20 mg oral delayed [...] (given by mouth) Every day Pharmacy Information [facility]: [address] [phone] Tests Performed Medications and Immunizations Administered Given !-Maalox Advanced Regular Strength oral suspension, 30 mL, Oral Ativan, 1 mg, IV Push droperidol, 2.5 mg, IV Bolus droperidol, 2.5 mg, IV Bolus lidocaine 4% mucous membrane solution, 10 mL, Oral NS bolus, 1000 mL, IV Piggyback NS bolus, 1000 mL, IV Piggyback Zofran, 4 mg, IV Push Lab Test Name Test Result Date/Time WBC 14.2 x10^3/mcL 07/03/2022 02:16 EST RBC 4.4 x10^6/mcL 07/03/2022 02:16 EST Hgb 15.0 g/dL 07/03/2022 02:16 EST Hct 43.7 % 07/03/2022 02:16 EST MCV 98.2 07/03/2022 02:16 EST MCH 33.7 pg 07/03/2022 02:16 EST MCHC 34.3 g/dL 07/03/2022 02:16 EST RDW-CV 12.3 % 07/03/2022 02:16 EST Platelets 322 x10^3/mcL 07/03/2022 02:16 EST Segs Man 90 % 07/03/2022 02:16 EST Lymph Man 6 % 07/03/2022 02:16 EST [place] Man 4 % 07/03/2022 02:16 EST Eos Man 0 % 07/03/2022 02:16 EST Baso Man 0 % 07/03/2022 02:16 EST Band Man 0 % 07/03/2022 02:16 EST Abs Neut Man 12.8 x10^3/mcL 07/03/2022 02:16 EST RBC Morph Normal 07/03/2022 02:16 EST Sodium Level 141 mmol/L 07/03/2022 04:47 EST Potassium Level 4.4 mmol/L 07/03/2022 04:47 EST Chloride Level 106 mmol/L 07/03/2022 04:47 EST CO2 24 mmol/L 07/03/2022 04:47 EST Alk Phos 100 unit/L 07/03/2022 02:16 EST AST 33 unit/L 07/03/2022 02:16 EST ALT 27 unit/L 07/03/2022 02:16 EST BUN 21 mg/dL 07/03/2022 04:47 EST Glucose Level 131 mg/dL 07/03/2022 04:47 EST Creatinine Level 1.48 mg/dL 07/03/2022 04:47 EST eGFR AA 54 07/03/2022 04:47 EST eGFR Non-AA 54 07/03/2022 04:47 EST Calcium Level 8.7 mg/dL 07/03/2022 04:47 EST Protein Total 8.7 g/dL 07/03/2022 02:16 EST Albumin Level 5.0 g/dL 07/03/2022 02:16 EST Bilirubin Total 1.4 mg/dL 07/03/2022 02:16 EST Lipase Level 18 unit/L 07/03/2022 02:16 EST Patient/Water Main Pipe Layer Signature Patient Name:LUDMILA FAIRCHILD I have received this information and my questions have been answered. Patient/Water Main Pipe Layer Name: Patient/Water Main Pipe Layer Signature: Relationship to Patient: Witness Name/Signature: Date: Electronically Signed on: 07/03/2022 05:34 ESTSigned by:JAH Patient Care team information Personnel Name: Yoni Reveles MD Address: Address: [address] [address]- [place]
--- OUTSIDE RECORDS SUMMARY | 2023-07-18 20:57 | XMS_ITS | Continuity of Care Document ---
Author Name Unknown Organization [facility] Address [address] [place] [address] Care Team Providers Care Front Desk Manager Name Role Phone Yoni Reveles Primary Care Physician Encounter [facility] Date(s): 02/20/23 - 02/20/[address] [id number] Encounter Diagnosis Chronic headache(Discharge Diagnosis) - 02/20/23 Other chronic pain(Discharge Diagnosis) - 02/20/23 Discharge Disposition: Home or Self Care Attending Physician: Chilango Boyle MD Admitting Physician: Chilango Boyle MD Allergies, Adverse Reactions, Alerts No Known Medication Allergies Substance Reaction Severity Status escitalopram Unknown Active Functional Status 02/20/23 Other exposure to Infectious Disease Non e [...] hr, # 20 tab, 0 Refill(s), Pharmacy: [facility], 178, cm, 07/03/22 2:11:00 EST, Height/Length [...] a child Results Laboratory List Name Date CBC w/ Diff 02/20/23 Comprehensive Metabolic Panel (CMP) 02/20 Sedimentation Rate (ESR) 02/20/23 Automated Diff 02/20/23 Most recent to oldest [Reference Range]: 1 WBC [5.0-10.0 x10^3/mcL] 7.4 x10^3/mcL (02/20/23 3:11 PM) RBC [4.6-6.0 x10^6/mcL] 4.6 x10^6/mcL (02/20/23 3:11 PM) Neutro Auto [40.0-75.0 %] 74.7 % (02/20/23 3:11 PM) Lymph Auto [20.0-50.0 %] 15.3 % *LOW* (02/20/23 3:11 PM) Davidson Auto [2.0-15.0 %] 6.9 % (02/20/23 3:11 PM) Basophil Auto [0.0-1.0 %] 0.4 % (02/20/23 3:11 PM) MCV [80.0-96.0 fL] 96.3 fL *HI* (02/20/23 3:11 PM) MCHC [31.0-35.0 g/dL] 34.6 g/dL (02/20/23 3:11 PM) Hct [41.0-51.0 %] 44.2 % (02/20/23 3:11 PM) MCH [26.0-32.0 pg] 33.3 pg *HI* (02/20/23 3:11 PM) Neutro Absolute 5.6 x10^3/mcL *NA* (02/20/23 3:11 PM) Hgb [14.0-18.0 g/dL] 15.3 g/dL (02/20/23 3:11 PM) Platelets [130-450 x10^3/mcL] 328 x10^3/ mcL (02/20/23 3:11 PM) eGFR Non-AA [>=60] 86 (02/20/23 3:11 PM) eGFR AA [>=60] 86 (02/20/23 3:11 PM) RDW-CV [11.5-14.5 %] 13.0 % (02/20/23 3:11 PM) Imm Gran Auto [0.0-0.9 %] 0.4 % (02/20/23 3:11 PM) Eos, Auto [1.0-6.0 %] 2.3 % (02/20/23 3:11 PM) ESR, Westergren [0-20 mm/hr] 10 mm/hr (02/20/23 3:11 PM) Vital Signs Most recent to oldest [Reference Range]: 1 2 Temperature Temporal Artery [36-38 Deg C ] 36.2 Deg C (02/20/23 2:06 PM) Peripheral Pulse Rate [60-100 bpm] 58 bp m *LOW* (02/20/23 2:06 PM) Respiratory Rate [12-24 br/min] 19 br/mi n (02/20/23 2:06 PM) Blood Pressure [90-140/60-90 mmHg] 160/1 07mmHg *HI* (02/20/23 4:05 PM) 196/101mmHg *HI* (02/20/23 2:06 PM) Weight Dosing 104.33 kg (02/20/23 2:13 PM) Weight Estimated 104.33 kg (02/20/23 2:06 PM) Height/Length Dosing 177.000 cm (02/20/23 2:13 PM) Height/Length Estimated 177.000 cm (02/20/23 2:06 PM) Social History Social History Type Response Tobacco Former tobacco user Tobacco Use:. 1 Sex Male 1Quit in 2012, used to smoke 1 pack/day Hospital Discharge Instructions Patient Education 02/20/2023 16:01:16 Chronic Migraine Headache Chronic Migraine Headache A migraine is a type of headache that is usually stronger and more sudden than other headaches. Migraines are characterized by an intense pulsing, throbbing pain that is usually only present on one side of the head. Migraine pain usually gets worse with activity. Migraines can cause nausea, vomiting, sensitivity to light and sound, and vision changes. Migrainesthat keep coming back are called recurrent migraines. A migraine is called a chronic migraine if ithappens at least 15 days in a month for more than 3 months. Talk with your health care provider about what things may bring on (trigger) your migraines. What are the causes? The exact cause of this condition is not known. However, a migraine may be caused when nerves in the brain become irritated and release chemicals that cause inflammation of blood vessels. The inflammation of the blood vessels causes pain. Migraines may be triggered or caused by: ??? Smoking. ??? Certain foods and drinks, such as: ??? Aged cheese. ??? Chocolate. ??? Alcohol. ??? Caffeine. ??? Foods or drinks that contain nitrates, glutamate, aspartame, MSG, or tyramine. ??? Medicines, such as control pills or some blood pressure medicines. Other things that may trigger a migraine include: ??? Menstruation. ??? Emotional stress. ??? Lack of sleep or too much sleep. ??? Tiredness (fatigue). ??? Bright lights or loud noises. ??? Odors. ??? Weather changes and high altitude. What increases the risk? The following factors may make you more likely to experience chronic migraine: ??? Having migraines or a family history of migraines. ??? Having a mental health condition, such as depression or anxiety. ??? Having to take a lot of pain medicine. ??? Having sleep problems. ??? Having heart disease, diabetes, or obesity. What are the signs or symptoms? Symptoms of a migraine vary for each person and may include: ??? Pulsating or throbbing pain. ??? Pain that is usually only present on one side of the head. In some cases, the pain may be on both sides of the head or around the head or neck. ??? Severe pain that prevents you from doing daily activities. ??? Pain that gets worse with physical activity. ??? Nausea, vomiting, or both. ??? Pain with exposure to bright lights, loud noises, or activity. ??? General sensitivity to bright lights, loud noises, or smells. ??? Dizziness. A sign that a migraine is becoming chronic is an increasing number of migraine episodes. It is considered chronic if the migraine happens at least 15 days in a month for more than 3 months. How is this diagnosed? This condition is often diagnosed based on: ??? Your symptoms and medical history. ??? A physical exam. You may also have tests, including: ??? A CT scan or an MRI of your brain. These imaging tests cannot diagnose migraines, but they can help to rule out other causes of headaches. ??? Taking fluid from the spine (lumbar puncture) and analyzing it (cerebrospinal fluid analysis, or CSF analysis). ??? Blood tests. How is this treated? This condition is treated with: ??? Medicines. These help to: ??? Lessen pain and nausea. ??? Prevent migraines. ??? Lifestyle changes, such as changes to your diet or sleeping patterns. ??? Behavior therapy. This may include: ??? Relaxation training. ??? Biofeedback. This is a treatment that teaches you to relax and use your brain to lower your heart rate and control your breathing. ??? Cognitive behavioral therapy (CBT). This is a form of talk therapy. This therapy helps you set goals and follow up on the changes that you make. ??? Acupuncture. ??? Using a device that provides electrical stimulation to your nerves, which can relieve pain (neuromodulation therapy). ??? Surgery, if the other treatments are not working. Follow these instructions at home: Medicines ??? Take vill-gls-evnynwp and prescription medicines only as told by your health care provider. ??? Ask your health care provider if the medicine prescribed to you requires you to avoid driving or using machinery. Lifestyle ??? Do not use any products that contain nicotine or tobacco, such as cigarettes, e-cigarettes, andchewing tobacco. If you need help quitting, ask your health care provider. ??? Do not drink alcohol. ??? Get 7???9 hours of sleep each night, or the amount of sleep recommended by your health care provider. ??? Find ways to manage stress, such as meditation, deep breathing, or yoga. ??? Maintain a healthy weight. If you need help losing weight, ask your health care provider. ??? Exercise regularly. Aim for 150 minutes of moderate-intensity exercise, such as walking, biking, or yoga, or 75 minutes of vigorous exercise each week. Vigorous exercise includes running, circuittraining, and swimming. General instructions ??? Keep a journal to find out what triggers your migraines so you can avoid these triggers. For example, write down: ??? What you eat and drink. ??? How much sleep you get. ??? Any change to your diet or medicines. ??? Lie down in a dark, quiet room when you have a migraine. ??? Try placing a cool towel over your head when you have a migraine. ??? Keep lights dim, if bright lights bother you or make your migraines worse. ??? Keep all follow-up visits as told by your health care provider. This is important. Where to find more information ??? Coalition for Headache and Migraine Patients (CHAMP): headachemigraine.org ??? [place] Migraine Foundation: americanmigrainefoundation.org ??? National Headache Foundation: headaches.org Contact a health care provider if: ??? Your pain does not improve, even with medicine. ??? Your migraines continue to return, even with medicine. Get help right away if: ??? Your migraine becomes severe and medicine does not help. ??? You have a stiff neck and fever. ??? You have a loss of vision. ??? You have muscle weakness or loss of muscle control. ??? You start losing your balance, or you have trouble walking. ??? You feel like you may faint, or you faint. ??? You start having sudden and unexpected, severe headaches. ??? You have a seizure. Summary ??? Migraine headaches are usually stronger and more sudden than other headaches. Migraines are characterized by an intense pulsing, throbbing pain that is usually only present on one side of the head. ??? Migraines that keep coming back are called recurrent migraines. A migraine is called a chronic migraine if it happens 15 days in a month for more than 3 months. ??? Certain things may trigger migraines, such as lack of sleep or too much sleep, smoking, certainfoods, alcohol, stress, and certain medicines. ??? Your treatment plan may include medicines, lifestyle changes, and behavior therapy. This information is not intended to replace advice given to you by your health care provider. Make sure you discuss any questions you have with your health care provider. Document Revised: 09/15/2020 Document Reviewed: 09/15/2020 Elsevier Patient Education ?? 2022 [employer] Follow Up Care 02/20/2023 14:06:16 With:Darrell Yoni YOUNGER MD Address: [address] [place] [phone] When:1 to 2 weeks Physician Emergency department Note * Tyrone Melo MD: PERFORM Event Display: ED Note Physician Authored Date: [id number] LUDIMLA FAIRCHILD :1965 Age:57 years Sex:Male Visit Date:02/20/2023 Primary Care Physician: Darrell [facility] Basic Information Time Seen: Tyrone Melo MD / 02/20/2023 14:09 Chief Complaint pt states that he has had a headache for two months, states that it is worse today. also been having brain fog. nothing touches the pain. pt states also loosing his voice, states he has stage 4 prostate CA and worried it has something to do with this. History Of Present Illness: 57-year-old male presents because of a 2-month history of a headache.?? He points to both sides of his head as hurting and he feels??like he is in a brain fog. ??He already takes hydromorphone 4 mg??at a time as needed for right knee??hip and back pain, he tried some acetaminophen but he states he still has a headache.?? He has a history of stage IV cancer??of the prostate for which she is on Lupron shots and??has received radiation therapy.?? He follows up with Dr. Ford at the [facility] in [facility],??has not had any prostate surgery. ??No fever.?? Does not describe a thunderclap onset.?? He saw Dr. Tamez for this last week and he states that they talked about??a scan eventually.?? Patient has a history of cyclical vomiting, he was nauseous this morning and was not able to make it to his??oncology appointment with Dr. Ford.?? No reported chest pain or shortness of breath or URI symptoms. Review of Systems: Constitutional:??no??fever,??no??chills,? Skin:??no??Jaundice,??no??rash,??no??lesions,??no??petechiae ENMT:??no??ear pain,??no??sore throat,??no??congestion,? Respiratory:??no??shortness of breath,??no??cough,? Cardiovascular:??no??chest pain,??no??palpitations,??no??edema Gastrointestinal:??See HPI Genitourinary:??No complaints voiced Musculoskeletal:??no??back pain,??no??trauma Neurologic:??moderate??headache,??no??dizziness,??no??numbness,??no??weakness ?? Physical Exam Vitals & Measurements T:??36.2?C ??(Temporal Artery)?? HR:??58??(Peripheral)?? RR:??19?? BP:??160/107?? SpO2:??99%?? HT:??177.000??cm?? WT:??104.33??kg??(Estimated)?? Pain Score:??9?? O2 Therapy:??Room air?? General:??alert,??no acute distress.?? Relates independently here, he is not encephalopathic, no obvious focal weakness??or facial droop. Skin:??warm,??dry. Head:??no??trauma,??normocephalic.?? No specific pain on palpation of the temporal arteries. Neck:??trachea??midline,??no??adenopathy,??no??tenderness.?? Supple,??no meningeal signs Eye:??normal??conjunctiva, sclera??clear.?? External eye movements are normal. Cardiovascular:??regular??rate and rhythm,??normal??peripheral perfusion. Respiratory: lungs??CTA, respirations??non-labored. Chest wall:??no??deformity. Gastrointestinal:??soft,??non distended,? Extremities:??no??deformity,??no??trauma.?? Well-perfused. Neurological:??oriented??x 4, LOC??appropriate for age,?? Psychiatric:??cooperative, affect??appropriate for age?? Medical Decision Making: Medical Decision-Making: Clinical lab tests: ordered and reviewed -??Yes ? Review and summarize past medical records -??Yes ?? Differential diagnosis includes??tension headache, chronic??headaches, migraine headache, status migrainous,??rebound headaches from chronic opiate use.?? He has a history of prostate cancer, does not have any other neurological symptoms to suggest??malignancy or mass effect??at this time. ??Here the patient got Toradol and??was feeling??much better. ??He is chronically on hydromorphone 4 mg at atime.?? I was going to get a CAT scan of his head here nevertheless but the machine is down.?? At 5PM the patient is requesting to??go back home??and will follow-up as an outpatient with his doctor for further imaging if deemed necessary.?? He did not look septic or toxic. ??No signs of meningitis. ??Discharged in stable condition ?? Procedure No Qualifying Data Assessment/Plan 1.??Chronic headache??R51.9 Other chronic pain??G89.29 Orders: CT Brain/Head w/o Contrast, 02/20/23 15:19:00 EDT, Stat, Reason: headache, Transport Mode: Stretcher, Exam to be performed outside organization? Patient Education Chronic Migraine Headache Follow Up With When Contact Information [facility], Yoni Velazquez MD Within 1 to [address] [place] [phone] Additional Instructions: Medication Reconciliation Unchanged abiraterone (Zytiga 250 mg oral tablet)4 tab Oral (given by mouth) every day. ?? acetaminophen (acetaminophen 500 mg oral tablet)2 tab Oral (given by mouth) 3 times a day as neededas needed for pain. ?? aspirin (aspirin 81 mg oral delayed [...] every day. Problem List/Past Medical History Ongoing Benign neoplasm of rectum Blood chemistry abnormal Chondromalacia of right patella Depression H/O: fracture Hyperlipidemia Hypertensive disorder Idiopathic osteoarthritis Nicotine dependence Obesity Obstruction of bile duct Prostate cancer Ulcer of esophagus Urinary retention Historical No qualifying data Procedure/Surgical History ???Colonoscopy (04/10/2019)???Subtotal parathyroidectomy (08/13/2016)???Cholecystectomy (11/22/2010)???Tonsillectomy Medication Administration Given Toradol, 30 mg, IV Push Allergies No Known Medication Allergies escitalopram Social History Electronic Cigarette/Vaping Electronic Cigarette Use: Never. Tobacco Former tobacco user Tobacco Use:.- Comments: Quit in 2012, used to smoke 1 pack/day Family History Anxiety: Mother and Father. Lab Results CBC and Differential?? LATEST RESULTS?? HISTORICAL RESULTS?? WBC?? 02/20/23 15:11?? 7.4?? 07/03/22?? 14.2 ??High?? RBC?? 02/20/23 15:11?? 4.6?? 07/03/22?? 4.4 ??Low?? Hgb?? 02/20/23 15:11?? 15.3?? 07/03/22?? 15.0?? Hct?? 02/20/23 15:11?? 44.2?? 07/03/22?? 43.7?? MCV?? 02/20/23 15:11?? 96.3 ??High?? 07/03/22?? 98.2 ??High?? MCH?? 02/20/23 15:11?? 33.3 ??High?? 07/03/22?? 33.7 ??High?? MCHC?? 02/20/23 15:11?? 34.6?? 07/03/22?? 34.3?? RDW-CV?? 02/20/23 15:11?? 13.0?? 07/03/22?? 12.3?? Platelets?? 02/20/23 15:11?? 328?? 07/03/22?? 322?? Neutro Auto?? 02/20/23 15:11?? 74.7?? 06/15/22?? 70.5?? Lymph Auto?? 02/20/23 15:11?? 15.3 ??Low?? 06/15/22?? 15.5 ??Low?? Davidson Auto?? 02/20/23 15:11?? 6.9?? 06/15/22?? 12.4?? Eos, Auto?? 02/20/23 15:11?? 2.3?? 06/15/22?? 1.0?? Basophil Auto?? 02/20/23 15:11?? 0.4?? 06/15/22?? 0.3?? Imm Gran Auto?? 02/20/23 15:11?? 0.4?? 06/15/22?? 0.3?? Neutro Absolute?? 02/20/23 15:11?? 5.6?? 06/15/22?? 4.7? Miscellaneous Hematology?? LATEST RESULTS?? ESR, Westergren?? 02/20/23 15:11?? 10? Routine Chemistry?? LATEST RESULTS?? HISTORICAL RESULTS?? eGFR AA?? 02/20/23 15:11?? 86?? 07/03/22?? 54 ??Low?? eGFR Non-AA?? 02/20/23 15:11?? 86?? 07/03/22?? 54 ??Low? Electronically Signed on 02/20/23 05:02 PM Tyrone Melo MD * Tyrone Melo MD: PERFORM Event Display: ED Note Physician Authored Date: [id number] CMP was unremarkable, glucose is 158 and BUN 19 but all other values of CMP within normal range. Electronically Signed on 02/20/23 05:05 PM Tyrone Melo MD Emergency department Discharge instructions * Tyrone Melo MD: PERFORM Event Display: ED Discharge Information Authored Date: [id number] LUDMILA FAIRCHILD :1965 Age:57 years Sex:Male Visit Date:02/20/2023 Primary Care Physician: Yoni Reveles MD Discharge Instructions We would like to thank you for allowing us to assist you with your healthcare needs. The following includes patient education materials and information regarding your injury/illness. Diagnosis from Today's Visit Chronic headache Other chronic pain Discharge Vitals Temperature??(Temporal Artery) 97.2 ??F (36.2 ??C) Heart Rate??(Peripheral) 58 Respiratory Rate?? 19 Blood Pressure?? 160/107?? Height?? 69.69 in (177.000 cm) Weight??(Estimated) 230.05 lb (104.33 kg) Allergies No Known Medication Allergies escitalopram What to Do Next Instructions from Your Care Team Follow-up with your doctor to discuss further medication??adjustment for chronic headaches and further imaging if deemed necessary. You Need to Schedule the Following Appointments Follow Up with??[facility], Yoni Velazquez MD When:??Within 1 to 2 weeks Where: [address] [place] [phone] You were treated today on an emergency [...] What How Much When Instructions Next Dose Unchanged abiraterone (Zytiga 250 mg oral tablet) [...] Capsules Oral (given by mouth) Every day Education Materials Chronic Migraine Headache A migraine is a type of headache that is usually stronger and more sudden than other headaches. Migraines are characterized by an intense pulsing, throbbing pain that is usually only present on one side of the head. Migraine pain usually gets worse with activity. Migraines can cause nausea, vomiting, sensitivity to light and sound, and vision changes. Migrainesthat keep coming back are called recurrent migraines. A migraine is called a chronic migraine if ithappens at least 15 days in a month for more than 3 months. Talk with your health care provider about what things may bring on (trigger) your migraines. What are the causes? The exact cause of this condition is not known. However, a migraine may be caused when nerves in the brain become irritated and release chemicals that cause inflammation of blood vessels. The inflammation of the blood vessels causes pain. Migraines may be triggered or caused by: ? Smoking. ? Certain foods and drinks, such as: ? Aged cheese. ? Chocolate. ? Alcohol. ? Caffeine. ? Foods or drinks that contain nitrates, glutamate, aspartame, MSG, or tyramine. ? Medicines, such as control pills or some blood pressure medicines. Other things that may trigger a migraine include: ? Menstruation. ? Emotional stress. ? Lack of sleep or too much sleep. ? Tiredness (fatigue). ? Bright lights or loud noises. ? Odors. ? Weather changes and high altitude. What increases the risk? The following factors may make you more likely to experience chronic migraine: ? Having migraines or a family history of migraines. ? Having a mental health condition, such as depression or anxiety. ? Having to take a lot of pain medicine. ? Having sleep problems. ? Having heart disease, diabetes, or obesity. What are the signs or symptoms? Symptoms of a migraine vary for each person and may include: ? Pulsating or throbbing pain. ? Pain that is usually only present on one side of the head. In some cases, the pain may be on both sides of the head or around the head or neck. ? Severe pain that prevents you from doing daily activities. ? Pain that gets worse with physical activity. ? Nausea, vomiting, or both. ? Pain with exposure to bright lights, loud noises, or activity. ? General sensitivity to bright lights, loud noises, or smells. ? Dizziness. A sign that a migraine is becoming chronic is an increasing number of migraine episodes. It is considered chronic if the migraine happens at least 15 days in a month for more than 3 months. How is this diagnosed? This condition is often diagnosed based on: ? Your symptoms and medical history. ? A physical exam. You may also have tests, including: ? A CT scan or an MRI of your brain. These imaging tests cannot diagnose migraines, but they can helpto rule out other causes of headaches. ? Taking fluid from the spine (lumbar puncture) and analyzing it (cerebrospinal fluid analysis, or CSF analysis). ? Blood tests. How is this treated? This condition is treated with: ? Medicines. These help to: ? Lessen pain and nausea. ? Prevent migraines. ? Lifestyle changes, such as changes to your diet or sleeping patterns. ? Behavior therapy. This may include: ? Relaxation training. ? Biofeedback. This is a treatment that teaches you to relax and use your brain to lower your heart rate and control your breathing. ? Cognitive behavioral therapy (CBT). This is a form of talk therapy. This therapy helps you set goals and follow up on the changes that you make. ? Acupuncture. ? Using a device that provides electrical stimulation to your nerves, which can relieve pain (neuromodulation therapy). ? Surgery, if the other treatments are not working. Follow these instructions at home: Medicines ? Take hikv-okt-tffrgfk and prescription medicines only as told by your health care provider. ? Ask your health care provider if the medicine prescribed to you requires you to avoid driving or using machinery. Lifestyle ? Do not use any products that contain nicotine or tobacco, such as cigarettes, e- cigarettes, and chewing tobacco. If you need help quitting, ask your health care provider. ? Do not drink alcohol. ? Get 7???9 hours of sleep each night, or the amount of sleep recommended by your health care provider. ? Find ways to manage stress, such as meditation, deep breathing, or yoga. ? Maintain a healthy weight. If you need help losing weight, ask your health care provider. ? Exercise regularly. Aim for 150 minutes of moderate-intensity exercise, such as walking, biking, oryoga, or 75 minutes of vigorous exercise each week. Vigorous exercise includes running, circuit training, and swimming. General instructions ? Keep a journal to find out what triggers your migraines so you can avoid these triggers. For example, write down: ? What you eat and drink. ? How much sleep you get. ? Any change to your diet or medicines. ? Lie down in a dark, quiet room when you have a migraine. ? Try placing a cool towel over your head when you have a migraine. ? Keep lights dim, if bright lights bother you or make your migraines worse. ? Keep all follow-up visits as told by your health care provider. This is important. Where to find more information ? Coalition for Headache and Migraine Patients (CHAMP): headachemigraine.org ? [place] Migraine Foundation: americanmigrainefoundation.org ? National Headache Foundation: headaches.org Contact a health care provider if: ? Your pain does not improve, even with medicine. ? Your migraines continue to return, even with medicine. Get help right away if: ? Your migraine becomes severe and medicine does not help. ? You have a stiff neck and fever. ? You have a loss of vision. ? You have muscle weakness or loss of muscle control. ? You start losing your balance, or you have trouble walking. ? You feel like you may faint, or you faint. ? You start having sudden and unexpected, severe headaches. ? You have a seizure. Summary ? Migraine headaches are usually stronger and more sudden than other headaches. Migraines are characterized by an intense pulsing, throbbing pain that is usually only present on one side of the head. ? Migraines that keep coming back are called recurrent migraines. A migraine is called a chronic migraine if it happens 15 days in a month for more than 3 months. ? Certain things may trigger migraines, such as lack of sleep or too much sleep, smoking, certain foods, alcohol, stress, and certain medicines. ? Your treatment plan may include medicines, lifestyle changes, and behavior therapy. This information is not intended to replace advice given to you by your health care provider. Make sure you discuss any questions you have with your health care provider. Document Revised: 09/15/2020 Document Reviewed: 09/15/2020 [email or web address] Patient Education ?? 2022 [employer] Tests Performed Medications and Immunizations Administered Given Toradol, 30 mg, IV Push Lab Test Name Test Result Date/Time WBC 7.4 x10^3/mcL 02/20/2023 15:11 EDT RBC 4.6 x10^6/mcL 02/20/2023 15:11 EDT Hgb 15.3 g/dL 02/20/2023 15:11 EDT Hct 44.2 % 02/20/2023 15:11 EDT MCV 96.3 fL 02/20/2023 15:11 EDT MCH 33.3 pg 02/20/2023 15:11 EDT MCHC 34.6 g/dL 02/20/2023 15:11 EDT RDW-CV 13.0 % 02/20/2023 15:11 EDT Platelets 328 x10^3/mcL 02/20/2023 15:11 EDT Neutro Auto 74.7 % 02/20/2023 15:11 EDT Lymph Auto 15.3 % 02/20/2023 15:11 EDT Davidson Auto 6.9 % 02/20/2023 15:11 EDT Eos, Auto 2.3 % 02/20/2023 15:11 EDT Basophil Auto 0.4 % 02/20/2023 15:11 EDT Imm Gran Auto 0.4 % 02/20/2023 15:11 EDT Neutro Absolute 5.6 x10^3/mcL 02/20/2023 15:11 EDT ESR, Westergren 10 mm/hr 02/20/2023 15:11 EDT eGFR AA 86 02/20/2023 15:11 EDT eGFR Non-AA 86 02/20/2023 15:11 EDT Patient/Audit Clerks Supervisor Signature Patient Name:LUDMILA FAIRCHILD I have received this information and my questions have been answered. Patient/Audit Clerks Supervisor Name: Patient/Audit Clerks Supervisor Signature: Relationship to Patient: Witness Name/Signature: Date: Electronically Signed on: 02/20/2023 17:01 EDTSigned by:MRB Emergency department Note * Marilyn Jefferson: PERFORM Event Display: ED Notes Authored Date: [id number] Patient Care team information Care Team Personnel Name: Therese Russell DOCK MANAGER Position: Physician Member Role: Nurse Practitioner Name: Yoni Reveles MD Position: Physician Member Role: Informed Provider Address: Address: [address] [place] [id number] Name: Sofía Yin DOCK MANAGER Position: Physician Member Role: Nurse Practitioner Address: Address: [address] [place] [address] Name: Tyrone Melo MD Position: Physician Member Role: ED Physician Address: Address: [address] [place] [address] Name: Jaimie Crawley RN Position: Nurse Member Role: ED Nurse Care Team Related Persons Name: TONY KAUR Name: SALONI FAIRCHILD Address: [address] [phone]
--- OUTSIDE RECORDS SUMMARY | 2023-07-18 20:57 | XMS_ITS | Continuity of Care Document ---
Author Name Unknown Organization [facility] Address [address] [place] [address] Care Team Providers Care Elder Counselor Name Role Phone Yoni Reveles Primary Care Physician Encounter NCTY_SD Date(s): 05/19/22 - 06/21/22 [facility] [address] [place] [address] Discharge Disposition: Home or Self Care Attending Physician: Yoni Mccarty MD Admitting Physician: Yoni Mccarty MD Referring Physician: Yoni Mccarty MD Allergies, Adverse Reactions, Alerts No Known Medication Allergies Substance Reaction Severity Status escitalopram Unknown Active Medications acetaminophen 500 mg oral tablet 1,000 [...] rectal suppository 25 mg = 1 supp, ID, every 12 hr, PRN severe nausea Start [...] sm rectal polyp 2laparoscopic 3as a child Social History Social History Type Response Tobacco Former tobacco user Tobacco Use:. 1 Sex Male 1Quit in 2012, used to smoke 1 pack/day Patient Care team information Care Team Personnel Name: Therese Russell NP Position: Physician Member Role: Nurse Practitioner Name: Yoni Reveles MD Position: Physician Member Role: Primary Care Physician Address: Address: [address] Name: Sofía Yin DIRECTOR OF DATABASE MARKETING Position: Physician Member Role: Nurse Practitioner Address: Address: [address] [place] [address]- Care Team Related Persons Name: TONY KAUR Name: SALONI FAIRCHILD Address: Home [address] [place] [address], [phone]
--- OUTSIDE RECORDS SUMMARY | 2023-07-18 20:57 | XMS_ITS | Continuity of Care Document ---
Author Name Unknown Organization [facility] Address [address] [place] [address] Care Team Providers Care Clinical Documentation Clerk Name Role Phone Yoni Reveles Primary Care Physician Encounter NCTY_OK Date(s): 05/24/22 - 05/25/22 [facility] [address] [place] [address] Encounter Diagnosis Acute kidney injury(Discharge Diagnosis) - 05/24/22 Nausea and vomiting(Discharge Diagnosis) - 05/24/22 Prostate cancer(Discharge Diagnosis) - 05/24/22 Hyperlipidemia(Discharge Diagnosis) - 05/24/22 Hypertensive disorder(Discharge Diagnosis) - 05/24/22 Obesity(Discharge Diagnosis) - 05/24/22 Urinary retention(Discharge Diagnosis) - 05/24/22 Depression(Discharge Diagnosis) - 05/24/22 Discharge Disposition: Home or Self Care Attending Physician: January Joel MD Attending Physician: Therese Russell NP Admitting Physician: Therese Russell NP Allergies, Adverse Reactions, Alerts No Known Medication Allergies Substance Reaction Severity Status escitalopram Unknown Active Functional Status 05/24/22 Living Environment No Living Environmen t Information Available Lives In Multilevel home Lives With Spouse Living Situation Home independently Home Barriers None 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 Number of Stairs Inside 12 1 Number of Stairs Outside 2 05/24/22 Lunch Percent 10 05/24/22 Family Member Travel History No recent t ravel Recent Travel History No recent travel Other exposure to Infectious Disease Non e 1Result Comment: Stays on 1 level. Medications acetaminophen 500 mg oral tablet 1,000 [...] 0 Refill(s) Start Date: 02/07/22 Status: Ordered Cipro 250 mg oral tablet 250 mg = 1 tab, Oral, Daily, # 15 cap, 1 Refill(s) Start Date: 02/10/22 Status: Ordered Citracal Maximum + D 315 [...] severe nausea Start Date: 02/22/22 Status: Ordered predniSONE 5 mg oral tablet 5 mg = 1 tab, Oral, Daily Start Date: 02/21/22 Status: Ordered prochlorperazine 25 mg rectal suppository 25 mg = 1 supp, AR, every 12 hr, PRN severe nausea Start Date: 02/21/22 Status: Ordered Protonix 20 mg oral delayed release tablet 20 mg = 1 tab, Oral, Daily, # 30 tab, 0 Refill(s), Pharmacy: [facility] #[id number], [id number], cm, 03/21/22 4:48:00 EDT, Height/Length Dosing, 87.5, kg, 03/21/22 4:48:00 EDT, Weight Dosing Start Date: 03/21/22 Status: Ordered tamsulosin 0.4 mg oral capsule 0.8 mg = 2 cap, Oral, Daily, 0 Refill(s) Start Date: 02/07/22 Status: Ordered Trintellix 5 mg oral tablet 5 mg = 1 tab, Oral, Daily, 0 Refill(s) Start Date: 02/07/22 Status: Ordered Zytiga 250 mg oral tablet [...] child Results Laboratory List Name Date CBC w/o Diff 05/25/22 Basic Metabolic Panel 05/25/22 Urinalysis with Microscopic 05/24/22 Urinalysis Microscopic 05/24/22 Basic Metabolic Panel (BMP) 05/24/22 Creatine Kinase 05/24/22 SARS-CoV-2 (COVID-19) RNA (ID Now) 05/24 .Manual Differential (NCTY) 05/24/22 CBC w/ Diff 05/24/22 Comprehensive Metabolic Panel 05/24/22 Most recent to oldest [Reference Range]: 1 2 3 WBC [5.0-10.0 x10^3/mcL] 10.0 x10^3/mcL (05/25/22 7:16 AM) 13.5 x10^3/mcL *HI* (05/24/22 3:00 AM) RBC [4.6-6.0 x10^6/mcL] 3.2 x10^6/mcL *LOW* (05/25/22 7:16 AM) 4.7 x10^6/mcL (05/24/22 3:00 AM) Segs Man [40-75 %] 76 % *HI* (05/24/22 3:00 AM) Lymph Man [20-50 %] 12 % *LOW* (05/24/22 3:00 AM) [place] Man 12 % *NA* (05/24/22 3:00 AM) Eos Man 0 % *NA* (05/24/22 3:00 AM) BUN [7-18 mg/dL] 29 mg/dL *HI* (05/25/22 7:09 AM) 42 mg/dL *HI* (05/24/22 6:24 AM) 43 mg/dL *HI* (05/24/22 3:00 AM) UA Color Yellow (05/24/22 7:28 AM) UA WBC [0-3] 0-3 (05/24/22 7:28 AM) Glucose Level [74-106 mg/dL] 135 mg/dL *HI* (05/25/22 7:09 AM) 141 mg/dL *HI* (05/24/22 6:24 AM) 192 mg/dL *HI* (05/24/22 3:00 AM) Potassium Level [3.5-5.1 mmol/L] 3.7 mmol/L (05/25/22 7:09 AM) 3.6 mmol/L (05/24/22 6:24 AM) 3.8 mmol/L (05/24/22 3:00 AM) MCV [80.0-103.0 fL] 100.9 fL (05/25/22 7:16 AM) 95.9 fL (05/24/22 3:00 AM) UA Urobilinogen Normal (05/24/22 7:28 AM) RBC Morph Normal (05/24/22 3:00 AM) UA Bili [Negative] Negative (05/24/22 7:28 AM) UA Ketones Trace *ABN* (05/24/22 7:28 AM) AST [15-37 unit/L] 24 unit/L (05/24/22 3:00 AM) ALT [14-59 unit/L] 25 unit/L (05/24/22 3:00 AM) MCHC [31.0-35.0 g/dL] 34.1 g/dL (05/25/22 7:16 AM) 36.2 g/dL *HI* (05/24/22 3:00 AM) UA Ca Ox Crystal Rare /HPF (05/24/22 7:28 AM) Sodium Level [136-145 mmol/L] 138 mmol/L (05/25/22 7:09 AM) 136 mmol/L (05/24/22 6:24 AM) 133 mmol/L *LOW* (05/24/22 3:00 AM) UA RBC [0-2] 3-5 (05/24/22 7:28 AM) UA Leuk Est Negative (05/24/22 7:28 AM) UA Nitrite Negative (05/24/22: AM) UA Glucose [Negative] Negative (05/24/22 7:28 AM) Hct [41.0-51.0 %] 32.8 % *LOW* (05/25/22 7:16 AM) 44.7 % (05/24/22 3:00 AM) UA Bacteria Rare /HPF (05/24/22 7:28 AM) Calcium Level [8.5-10.1 mg/dL] 7.9 mg/dL *LOW* (05/25/22 7:09 AM) 8.4 mg/dL *LOW* (05/24/22 6:24 AM) 9.8 mg/dL (05/24/22 3:00 AM) Albumin Level [3.4-5.0 g/dL] 5.3 g/dL *HI* (05/24/22 3:00 AM) Protein Total [6.4-8.2 g/dL] 9.4 g/dL *HI* (05/24/22 3:00 AM) UA Protein 1+ *ABN* (05/24/22 7:28 AM) MCH [26.0-32.0 pg] 34.5 pg *HI* (05/25/22 7:16 AM) 34.8 pg *HI* (05/24/22 3:00 AM) Bilirubin Total [0.2-1.0 mg/dL] 1.7 mg/dL *HI* (05/24/22 3:00 AM) Hgb [14.0-18.0 g/dL] 11.2 g/dL *LOW* (05/25/22 7:16 AM) 16.2 g/dL (05/24/22 3:00 AM) Alk Phos [46-146 unit/L] 123 unit/L (05/24/22 3:00 AM) UA Blood Trace *ABN* (05/24/22 7:28 AM) UA Mucous Moderate /HPF *ABN* (05/24/22:28 AM) Band Man [0-5 %] 0 % (05/24/22 3:00 AM) UA Spec Grav >=1.030 *NA* (05/24/22 7:28 AM) Platelets [130-450 x10^3/mcL] 269 x10^3/mcL (05/25/22 7:16 AM) 430 x10^3/mcL (05/24/22 3:00 AM) CO2 [21-32 mmol/L] 28 mmol/L (05/25/22 7:09 AM) 27 mmol/L (05/24/22 6:24 AM) 26 mmol/L (05/24/22 3:00 AM) UA Squam Epithelial [None Seen] Rare (05/24/22:28 AM) UA pH 5.5 *NA* (05/24/22:28 AM) eGFR Non-AA [>=60] 69 (05/25/22 7:09 AM) 23 *LOW* (05/24/22 6:24 AM) 16 *LOW* (05/24/22 3:00 AM) eGFR AA [>=60] 69 (05/25/22 7:09 AM) 23 *LOW* (05/24/22 6:24 AM) 16 *LOW* (05/24/22 3:00 AM) UA Appear Clear (05/24/22:28 AM) Chloride Level [98-107 mmol/L] 103 mmol/L (05/25/22 7:09 AM) 96 mmol/L *LOW* (05/24/22 6:24 AM) 89 mmol/L *LOW* (05/24/22 3:00 AM) RDW-CV [11.5-17.0 %] 12.4 % (05/25/22:16 AM) 12.4 % (05/24/22 3:00 AM) UA Culture Ind?. Not Applicable (05/24/22 7:28 AM) Abs Neut Man 10.3 x10^3/mcL *NA* (05/24/22 3:00 AM) Creatinine Level [0.70-1.30 mg/dL] 1.21 mg/dL (05/25/22 7:09 AM) 3.08 mg/dL *HI* (05/24/22 6:24 AM) 4.21 mg/dL *HI* (05/24/22 3:00 AM) SARS-CoV-2 (COVID-19) RNA (ID Now) [Not Detected] Not Detected (05/24/22 6:14 AM) Anion Gap [8-16 mmol/L] 7 mmol/L *NA* (05/25/22 7:09 AM) 10 mmol/L (05/24/22 6:24 AM) 15 mmol/L (05/24/22 3:00 AM) Baso Man [0-1 %] 0 % (05/24/22 3:00 AM) CK [39-308 unit/L] 133 unit/L (05/24/22 6:24 AM) Vital Signs Most recent to oldest [Reference Range]: 1 2 3 Temperature Temporal Artery [36-38 Deg C] 36.8 Deg C (05/25/22 10:02 AM) 36.7 Deg C (05/25/22 6:28 AM) 36.8 Deg C (05/25/22 2:18 AM) Peripheral Pulse Rate [60-100 bpm] 61 bpm (05/25/22 10:02 AM) 64 bpm (05/25/22:28 AM) 78 bpm (05/25/22 2:18 AM) Respiratory Rate [12-24 br/min] 19 br/min (05/25/22 10:02 AM) 19 br/min (05/25/22:28 AM) 16 br/min (05/25/22 2:18 AM) Blood Pressure [90-140/60-90 mmHg] 134/89mmHg (05/25/22 10:02 AM) 149/92mmHg *HI* (05/25/22 6:28 AM) 150/84mmHg *HI* (05/25/22 2:18 AM) Mean Arterial Pressure Cuff 102 mmHg (05/25/22 10:02 AM) 110 mmHg (05/25/22 6:28 AM) 104 mmHg (05/25/22 2:18 AM) Weight 97 kg (05/25/22 6:28 AM) 97.900 kg (05/24/22 9:25 AM) 91.9 kg (05/24/22 9:22 AM) Weight Dosing 97.900 kg (05/24/22 9:25 AM) 95.25 kg (05/24/22 2:34 AM) Weight Estimated 95.25 kg (05/24/22 2:28 AM) Height 178.000 cm (05/24/22 9:25 AM) Height/Length Dosing 178.000 cm (05/24/22 9:25 AM) 178.000 cm (05/24/22 2:34 AM) Body Mass Index 30.900 kg/m2 (05/24/22 9:25 AM) Height/Length Estimated 178.000 cm (05/24/22 2:28 AM) Social History Social History Type Response Tobacco Former tobacco user Tobacco Use:. 1 Sex Male 1Quit in 2012, used to smoke 1 pack/day Hospital Discharge Instructions Patient Education 05/25/2022 10:25:14 Nausea and Vomiting, Adult Nausea and Vomiting, Adult Nausea is the feeling that you have an upset stomach or that you are about to vomit. Vomiting is when stomach contents are thrown up and out of the mouth as a result of nausea. Vomiting can make you feel weak and cause you to become dehydrated. Dehydration can make you feel tired and thirsty, cause you to have a dry mouth, and decrease how often you urinate. Older adults and people with other diseases or a weak disease-fighting system (immune system) are at higher risk for dehydration. It is important to treat your nausea and vomiting as told by your health care provider. Follow these instructions at home: Watch your symptoms for any changes. Tell your health care provider about them. Follow these instructions to care for yourself at home. Eating and drinking ??? Take an oral rehydration solution (ORS). This is a drink that is sold at pharmacies and retail stores. ??? Drink clear fluids slowly and in small amounts as you are able. Clear fluids include water, icechips, low-calorie sports drinks, and fruit juice that has water added (diluted fruit juice). ??? Eat bland, smfz-tm-eoopna foods in small amounts as you are able. These foods include bananas, applesauce, rice, lean meats, toast, and crackers. ??? Avoid fluids that contain a lot of sugar or caffeine, such as energy drinks, sports drinks, andsoda. ??? Avoid alcohol. ??? Avoid spicy or fatty foods. General instructions ??? Take zjdl-kvd-[id number] and prescription medicines only as told by your health care provider. ??? Drink enough fluid to keep your urine pale yellow. ??? Wash your hands often using soap and water. If soap and water are not available, use hand vice president digital strategist. ??? Make sure that all people in your household wash their hands well and often. ??? Rest at home while you recover. ??? Watch your condition for any changes. ??? Breathe slowly and deeply when you feel nauseated. ??? Keep all follow-up visits as told by your health care provider. This is important. Contact a health care provider if: ??? Your symptoms get worse. ??? You have new symptoms. ??? You have a fever. ??? You cannot drink fluids without vomiting. ??? Your nausea does not go away after 2 days. ??? You feel light-headed or dizzy. ??? You have a headache. ??? You have muscle cramps. ??? You have a rash. ??? You have pain while urinating. Get help right away if: ??? You have pain in your chest, neck, arm, or jaw. ??? You feel extremely weak or you faint. ??? You have persistent vomiting. ??? You have vomit that is bright red or looks like black coffee grounds. ??? You have bloody or black stools or stools that look like tar. ??? You have a severe headache, a stiff neck, or both. ??? You have severe pain, cramping, or bloating in your abdomen. ??? You have difficulty breathing, or you are breathing very quickly. ??? Your heart is beating very quickly. ??? Your skin feels cold and clammy. ??? You feel confused. ??? You have signs of dehydration, such as: ??? Dark urine, very little urine, or no urine. ??? Cracked lips. ??? Dry mouth. ??? Sunken eyes. ??? Sleepiness. ??? Weakness. These symptoms may represent a serious problem that is an emergency. Do not wait to see if the symptoms will go away. Get medical help right away. Call your local emergency services (911 in the [place] Do not drive yourself to the hospital. Summary ??? Nausea is the feeling that you have an upset stomach or that you are about to vomit. As nausea gets worse, it can lead to vomiting. Vomiting can make you feel weak and cause you to become dehydrated. ??? Follow instructions from your health care provider about eating and drinking to prevent dehydration. ??? Take nmxo-lsb-asjcyra and prescription medicines only as told by your health care provider. ??? Contact your health care provider if your symptoms get worse, or you have new symptoms. ??? Keep all follow-up visits as told by your health care provider. This is important. This information is not intended to replace advice given to you by your health care provider. Make sure you discuss any questions you have with your health care provider. Document Revised: 10/19/2021 Document Reviewed: 01/07/2019 [employer] Patient Education ?? 2021 [employer] Follow Up Care 05/24/2022 02:28:00 With:Primary Care Physician Address:Unknown When:2 to 4 weeks Patient Care team information Personnel Name: Yoni Reveles MD Address: Address: [address] [address]- [place]
--- OUTSIDE RECORDS SUMMARY | 2023-07-18 20:57 | XMS_ITS | Continuity of Care Document ---
Author Name Unknown Organization [facility] Address [address] [place] [address] Care Team Providers Care Cushion Filler Name Role Phone Primeau Yoni GALLO Primary Care Physician Encounter [facility] [id number] Date(s): 04/09/23 - 04/09/23 [facility] [address] [place] [address] Discharge Disposition: Home or Self Care Attending Physician: Deyvi Tejeda MD Admitting Physician: Deyvi Tejeda MD Referring Physician: Deyvi Tejeda MD Allergies, Adverse Reactions, Alerts No Known Medication Allergies Substance Reaction Severity Status escitalopram Unknown Active Assessment and Plan Diagnostic Tests Pending * PSA Ultrasensitive, S KO 04/09/23 Medications acetaminophen 500 mg oral tablet 1,000 mg = 2 tab, Oral, TID, PRN as needed for pain, 0 Refill(s) Start Date: 02/07/22 Status: Ordered amitriptyline 10 mg oral tablet 0 Refill(s) Start Date: 03/11/23 Status: Ordered aspirin 81 mg oral delayed [...] rectal suppository 25 mg = 1 supp, DE, every 12 hr, PRN severe nausea Start [...] hr, # 20 tab, 0 Refill(s), Pharmacy: [facility] #[id number], 178, cm, 07/03/22 2:11:00 EST, [...] information Care Team Personnel Name: Therese Russell FAMILY SOCIOLOGIST Position: Physician Member Role: Nurse Practitioner Name: Yoni Mccarty MD Position: No Access Member Role: Informed Provider Address: Address: [address] Name: Sofía Yin FAMILY SOCIOLOGIST Position: Physician Member Role: Nurse Practitioner Address: Address: [address] [place] [address]- Care Team Related Persons Name: TONY KAUR Address: Home Name: SALONI FAIRCHILD Address: Home [address] [place] [phone]
--- OUTSIDE RECORDS SUMMARY | 2023-07-18 21:01 | XMS_ITS | Continuity of Care Document ---
Author Name [facility] Address [address] [place] [address] Organization [facility] Address [address] [place] [address] Care Team Providers Care Drapery Sewer Hand Name Role Phone Out of Town, Provider Primary Care Physician Simi vailable Salina Langston V Admitting Physician Dorys Farley Attending Physician Allergies, Adverse Reactions, Alerts Allergen Type Severity Reaction Last Updated Verified Status escitalopram Allergy rash March 10, 2021 Y Activ e Medications Active Medications Medication Dose Units Route Sig Start Date Status Atorvastatin 20 MG ORAL BEDTIME March 11, 2021 Activ e Atenolol 25 MG ORAL DAILY March 11, 2021 Active Amlodipine 5 MG ORAL DAILY March 11, 2021 Active Calcium Carbonate-Vitamin D3 2 TAB ORAL DAILY March 11, 2021 Active Aspirin 81 MG ORAL DAILY March 11, 2021 Active Acetaminophen 1000 MG ORAL THREE TIMES A DAY PRN For Pain March 11, 2021 Active Hydromorphone 2 MG ORAL THREE TIMES A DAY PRN For Pain March 11, 2021 Active Citalopram 20 MG ORAL DAILY March 11, 2021 Active Tamsulosin 0.8 MG ORAL BEDTIME March 11, 2021 Active Prochlorperazine 25 MG RECTAL Q12H PRN For Nausea Naresh 2020 Active Gabapentin 600 MG ORAL THREE TIMES A DAY March 11 Active Triamterene-Hydrochlorothia zid 1 TAB ORAL DAILY March 11, 2021 Active Ondansetron 4 MG ORAL Q8H PRN For Nausea March 11, 2021 Active Finasteride 5 MG ORAL BEDTIME March 11, 2021 Active Naloxone 1 SPR NASAL Q2M PRN For overdose March 11, 2021 Active Problem List Active Problems Medical Problem Onset Date Status BPH (benign prostatic hyperplasia) Active Hyperlipidemia Active Hypertension Active Inactive/Resolved Problems Medical Problem Onset Date Status Acute kidney injury Resolved Acute dehydration Resolved Vomiting Resolved Procedures Procedure Date Status Kidney (Renal Complete) March 11, 2021 compl eted EKG March 10, 2021 completed Relevant Diagnostic Tests and/or Laboratory Data Laboratory Results Test Date/Time Result Interp. Ref. Range Result Co mment White Blood Count March 12, 2021 6:23am 8.66 1000/mm3 4.8-10.8 Red Blood Count March 12, 2021 6:23am 3.75 M/mm3 Low 4.70-6.00 Hemoglobin March 12, 2021 6:23am 12.6 g/dL Low 14.0-18.0 Delta: 14.7 on 03/11/21-0641 Hematocrit March 12, 2021 6:23am 37.1 % Low 42-52 Mean Corpuscular Volume March 12, 2021 6:23am 98.9 fL High 80.0-94.0 Mean Corpuscular Hemoglobin March 12, 2021 6:23am 33.6 pg High 27-31 Mean Corpuscular Hemoglobin Concent March 12, 2021 6:23am 34.0 g/dL 33-37 Red Cell Distribution Width March 12, 2021 6:23am 12.3 % 11.5-14.5 Platelet Count March 12, 2021 6:23am 268 1000/mm3 140-440 Mean Platelet Volume March 12, 2021 6:23am 9.4 fL 7.4-10.4 Urine Color March 11, 2021 12:40am Yellow Urine Clarity March 11, 2021 12:40am Slightly cloudy Urine pH March 11, 2021 12:40am 5.0 Urine Specific [place] March 11, 2021 12:40am 1.025 Urine Protein March 11, 2021 12:40am 30 (1+) mg/dL High Urine Glucose (UA) March 11, 2021 12:40am Normal mg/dL Urine Ketones March 11, 2021 12:40am Negative Urine Nitrite March 11, 2021 12:40am Negative Urine Bilirubin March 11, 2021 12:40am Negative mg/dL Urine Urobilinogen March 11, 2021 12:40am Normal mg/dL Urine Leukocyte Esterase March 11, 2021 12:40am Negative WBC/uL Urine Blood March 11, 2021 12:40am Small (1+) K[place]/uL High Urine RBC March 11, 2021 12:40am 3-5 /hpf High Urine WBC March 11, 2021 12:40am None seen /hpf Urine Bacteria March 11, 2021 12:40am None seen /hpf Urine Hyaline Casts March 11, 2021 12:40am 3-5 /lpf High Urine Culture Done March 11, 2021 12:40am No CULTURE NOT INDICATED. Urine Creatinine March 11, 2021 12:40am 343.7 mg/dL Urine Sodium March 11, 2021 12:40am 23.0 mmol/L Sodium Level March 13, 2021 7:10am 136 mmol/L Low 137-145 Potassium Level March 13, 2021 7:10am 4.0 mmol/L 3.6-5.0 Chloride Level March 13, 2021 7:10am 97 mmol/L Low 98-107 Carbon Dioxide Level March 13, 2021 7:10am 27 mmol/L 22-30 Anion Gap March 13, 2021 7:10am 12 7-16 Blood Urea Nitrogen March 13, 2021 7:10am 32 mg/dL High 8-26 Creatinine March 13, 2021 7:10am 1.15 mg/dL 0.66-1.25 Glomerular Filtration Rate Calc March 13, 2021 7:10am > 60 mL/min 60.0- Glucose Level March 13, 2021 7:10am 178 mg/dL High 70-100 Calcium Level March 13, 2021 7:10am 8.9 mg/dL 8.4-10.2 Magnesium Level March 11, 2021 6:41am 2.1 mg/dL 1.6-2.3 Thyroid Stimulating Hormone (TSH) March 11, 2021 6:41am 0.586 mlU/L 0.47-4.68 The results of this assay can be falsely decreased in patients who consume Biotin. Hemoglobin A1c Percent March 11, 2021 6:41am 6.01 % High <5.7%: Normal 5.7%-6.4%: Prediabetes >=6.5%: Diagnostic for diabetes Goals for Glycemic Control in Diabetes (ADA 2018) <7.0%: A1c target for non adults with diabetes. More or less stringent glycemic goals may be appropriate for individual patients. <7.5%: A1c target for children and adolescents with type I diabetes. A lower goal is reasonable if it can be achieved without excessive hypoglycemia. Estimated Average Glucose mg/dL March 11, 2021 6:41am 126 mg/dL Urine Methadone Screen March 11, 2021 12:40am Negative ng/mL Urine Eosinophils March 11, 2021 12:40am 1-5 % High Test Performed b y: [address] [address] Soil Field Technician: Ace Cooley M.D. Ph.D.; CLIA# [id number] Chief Complaint and Reason for Visit Encounter Admit Date Chief Complaint Reason for V isit Registered Inpatient March 10, 2021 7:04pm [place] Acute dehydration Acute kidney injury Vomiting Hospital Discharge Instructions Additional Discharge Instructions Contin ue to stay hydrated throughout the day. Take anti-acid medication as prescribed; avoid high-acid foods. Follow up with primary care provider in 3-5 days for recheck following hospitalization. GENERAL DISCHARGE INSTRUCTIONS OUR GOAL You have been cared for by the Hospital Care Team at [facility] ([facility] Our goal is to make sure that your discharge from the hospital is as safe as possible. This means making sure that: You understand the reason for your hospitalization. You understand your medications at discharge including any new prescriptions, changes to your medications, and stopped medications. You know the symptoms of your illness and when to call for help. You understand your discharge plan and instructions. A summary of your care will be sent to your primary care provider and other members of your care team that you identify. Discharge Diagnosis: Acute kidney injury Dehydration Cyclic vomiting syndrome Diet: Resume Previous Diet Diet Comment: Diet Consistency: Activity: Resume Previous Activity Activity Comment: Bathing: No Restrictions Bathing Comment: Wound Care: Weight Bearing Status: Weight Lifting Status: Weight Bearing/Lifting Comment: Symptoms to Report to Your Provider: Nausea/Vomiting Temperature > 101 F Abdominal Pain Decreased Urine Output Additional Symptoms to Report to Your Provider: Services Recommended: (if applicable): Follow Up Testing Recommended: WHO TO CALL CONTACT US AT [facility] IF: You have not seen your primary care provider if you have questions regarding your care in the hospital including questions regarding your medications, discharge instructions, or services arranged prior to seeing your primary care provider. oIf you were discharged from the Progressive Care Unit, contact us at: [phone] CONTACT YOUR PRIMARY CARE IF You are concerned that your symptoms are worsening or have returned, to see if your appointment needs to be changed or you need to be seen sooner. WHEN TO GO TO THE EMERGENCY DEPARTMENT The Emergency Department is there for you when you need immediate care for serious illness, injury or severe symptoms. You should call 911 or return to the Emergency Department IF THE SYMPTOMS OF YOUR RECENT HOSPITALIZATION HAVE RETURNED OR SEVERELY WORSENED. THESE MIGHT INCLUDE: Nausea/Vomiting Temperature > 101 F Abdominal Pain Decreased Urine Output Uncontrolled bleeding Severe pain not controlled by available oral pain medications Persistent vomiting or vomiting blood Fainting Unexpected shortness of breath or difficulty breathing Persistent high fever greater than 101 Seizure Instruction/Education Provided Acute Kid faustino Injury (DC) Health Concerns: Continued, worsening or returning pain Hospital Discharge Medications Medication Dose Units Route Sig Qty Days Order Date Status Instructions Atorvastatin 20 MG ORAL BEDTIME Feb Active Atenolol 25 MG ORAL DAILY February Active Amlodipine 5 MG ORAL DAILY March 11, 2021 Active Calcium Carbonate-Vitamin D3 2 TAB ORAL DAILY March 11, 2021 Active Aspirin 81 MG ORAL DAILY March 11, 2021 Active Acetaminophen 1000 MG ORAL THREE TIMES A DAY PRN For Pain March 11, 2021 Active Hydromorphone 2 MG ORAL THREE TIMES A DAY PRN For Pain March 11, 2021 Active Citalopram 20 MG ORAL DAILY March 11, 2021 Active Tamsulosin 0.8 MG ORAL BEDTIME March 11, 2021 Active Prochlorperazine 25 MG RECTAL Q12H PRN For Nausea March 11, 2021 Active Gabapentin 600 MG ORAL THREE TIMES A DAY March 11, 2021 Active Triamterene-Hydroch lorothiazid 1 TAB ORAL DAILY March 11, 2021 Active Ondansetron 4 MG ORAL Q8H PRN For Nausea March 11, 2021 Active Finasteride 5 MG ORAL BEDTIME March 11, 2021 Active Naloxone 1 SPR NASAL Q2M PRN For overdose March 11, 2021 Active Encounters Encounter Facility Location Admit/Visit Date Discharge/Departure Date Attending Provider Registered Inpatient [facility] Hospitalists March 10, 2021 7:04pm Sharee Daily Encounter Diagnosis Onset Date Acute dehydration Acute kidney injury Vomiting Functional Status Query Response Date Recorded Comment Comprehension Ability Understands Concepts March 10 6:54pm Speech Appropriate Clear March 10, 2021 6:54pm Query Response Date Recorded Comment Ambulation Ability Independent March 11, 2021 6:14am Living Situation With Spouse March 11, 2021 6:14am Immunizations Immunization Name Date Given Type Covid-19 100mcg/0.5mL Moderna November 17, 2020 Hi storical Covid-19 100mcg/0.5mL Moderna December 15, 2020 Hi storical Plan of Care Instructions Acute Kidney Injury (DC) Health Concerns: Continued, worsening or returning pain Social History Query Response Date Recorded Comment Alcohol Use No March 11, 2021 6:14am Smoking Status Former smoker March 11, 2021 6:14am Substance/Street Drug Use Yes March 11, 2021 6:14am Occasionally smokes marijuana Query Response Start Date Stop Date Smoking Status Former smoker Vital Signs Vital Reading Result Reference Range Collection Date/Time Height 5 ft 10 in March 10, 2021 6 :54pm Weight 98.6 kg March 13, 2021 5:56am Temperature 98.1 F 97.6 F-99.6 F March 13, 2021 5:55am Pulse 76 BPM 60-100 March 13, 2021 8:51am Respiration 16 RPM 12-24 March 13, 2021 5:55am Pulse Oximetry 98 % 95-100 March 13 8:00am Blood Pressure Systolic 149 100-[address] 2020 8:51am Blood Pressure Diastolic 81 50-85 Mar t 2020 8:51am Body Mass Index 31.1 March 10 6:54pm
--- OUTSIDE RECORDS SUMMARY | 2023-07-18 21:01 | XMS_ITS | Continuity of Care Document ---
Author Name [facility] Address [address] [place] [address] Organization [facility] Address [address] [place] [address] Care Team Providers Care Before And After School Daycare Worker Name Role Phone Out of Town, Provider Primary Care Physician Simi vailable Salina Langston V Admitting Physician [phone] Dorys Farley Attending Physician Allergies, Adverse Reactions, [...] March 11, 2021 12:40am 5.0 Urine Specific [place] March 11, 2021 12:40am 1.025 Urine Protein [...] 1-5 % High Test Performed b y: [address] [address] Cupola Patcher: Ace Cooley M.D. Ph.D.; CLIA# [id number] Chief Complaint and Reason for Visit Encounter Admit Date Chief Complaint Reason for V isit Registered Inpatient March 10, 2021 7:04pm [place] Acute dehydration Acute kidney injury Vomiting Hospital Discharge Instructions Additional Discharge Instructions Contin ue to stay hydrated throughout the day. Take anti-acid medication as prescribed; avoid high-acid foods. Follow up with primary care provider in 3-5 days for recheck following hospitalization. GENERAL DISCHARGE INSTRUCTIONS OUR GOAL You have been cared for by the Hospital Care Team at [facility] ([facility] Our goal is to make sure that [...] Recommended: WHO TO CALL CONTACT US AT [facility] IF: You have not seen your primary care provider if you have questions regarding your care in the hospital including questions regarding your medications, discharge instructions, or services arranged prior to seeing your primary care provider. oIf you were discharged from the Progressive Care Unit, contact us at: [phone] CONTACT YOUR PRIMARY CARE IF You are [...] Date Discharge/Departure Date Attending Provider Registered Inpatient [facility] Hospitalists March 10, 2021 7:04pm Sharee Daily [...]
--- OUTSIDE RECORDS SUMMARY | 2023-07-18 21:01 | XMS_ITS | Continuity of Care Document ---
Author Name [facility] Address [address] [place] [id number] Organization [facility] Address [address] [place] [address] Care Team Providers Care Curator Of Education Name Role Phone Out of Town, Provider [...] March 11, 2021 12:40am 5.0 Urine Specific [place] March 11, 2021 12:40am 1.025 Urine Protein [...] % High Test Performed b y: [address] [address] Gusset Maker: Ace Cooley M.D. Ph.D.; CLIA# [id number] Chief Complaint and Reason for Visit Encounter [...] for by the Hospital Care Team at [facility] ([facility] Our goal is to make sure that [...] Recommended: WHO TO CALL CONTACT US AT [facility] IF: You have not seen your primary care provider if you have questions regarding your care in the hospital including questions regarding your medications, discharge instructions, or services arranged prior to seeing your primary care provider. oIf you were discharged from the Progressive Care Unit, contact us at: [phone] CONTACT YOUR PRIMARY CARE IF You are [...] Date Discharge/Departure Date Attending Provider Registered Inpatient [facility] Hospitalists March 10, 2021 7:04pm Sharee [...]
--- OUTSIDE RECORDS SUMMARY | 2023-07-18 21:01 | XMS_ITS | Continuity of Care Document ---
Author Name [facility] Address [address] [place] [address] Organization [facility] Address [address] [place] [address] Care Team Providers Care Gas Charger Name Role Phone Out of Town, Provider Primary Care Physician Simi vailable Salina Langston V Admitting Physician Dorys Farley Attending Physician [phone] Allergies, Adverse Reactions, Alerts Allergen Type Severity [...] Complete) March 11, 2021 compl eted EKG Adult March 10, 2021 completed Relevant Diagnostic Tests [...] March 11, 2021 12:40am 5.0 Urine Specific [place] March 11, 2021 12:40am 1.025 Urine Protein [...] 1-5 % High Test Performed b y: [address] [address] Granite Cutter Apprentice: Ace Cooley M.D. Ph.D.; CLIA# [id number] Chief Complaint and Reason for Visit Encounter [...] for by the Hospital Care Team at [facility] ([facility] Our goal is to make sure that [...] Recommended: WHO TO CALL CONTACT US AT [facility] IF: You have not seen your primary care provider if you have questions regarding your care in the hospital including questions regarding your medications, discharge instructions, or services arranged prior to seeing your primary care provider. oIf you were discharged from the Progressive Care Unit, contact us at: [phone] CONTACT YOUR PRIMARY CARE IF You are [...] 13 8:00am Blood Pressure Systolic 149 100-140 [facility] 8:51am Blood Pressure Diastolic 81 50-85 Mar t 2020 8:51am Body Mass Index 31.1 March 10 6:54pm
--- OUTSIDE RECORDS SUMMARY | 2023-07-18 21:01 | XMS_ITS | Continuity of Care Document ---
Author Name [facility] Address [address] [place] [address] Organization [facility] Address [address] [place] [address] Care Team Providers Care Electronics Department Manager Name Role Phone Out of Town, Provider Primary Care Physician Simi vailable Salina Langston V Admitting Physician [phone] Salina Langston V Attending Physician Allergies, Adverse Reactions, Alerts Allergen Type Severity Reaction Last Updated Verified Status escitalopram Allergy rash March 10, 2021 Y Activ e Medications No medication information available. Problem List Active Problems Medical Problem Onset Date Status Acute kidney injury Active BPH (benign prostatic hyperplasia) Active Acute dehydration Active Hyperlipidemia Active Hypertension Active Vomiting Active Procedures Procedure Date Status US Kidney (Renal Complete) March 11, 2021 activ e EKG Adult March 10, 2021 completed Relevant Diagnostic Tests and/or Laboratory Data Laboratory Results Test Date/Time Result Interp. Ref. Range Result Co mment Urine Color March 11, 2021 12:40am Yellow Urine Clarity March 11, 2021 12:40am Slightly cloudy Urine pH March 11, 2021 12:40am 5.0 Urine Specific [place] March 11, 2021 12:40am 1.025 Urine Protein [...] Sodium March 11, 2021 12:40am 23.0 mmol/L Urine Methadone Screen March 11, 2021 12:40am Negative ng/mL Chief Complaint and Reason for Visit Encounter Admit Date Chief Complaint Reason for V isit Admitted Inpatient March 10, 2021 7:04pm [place] A cute dehydration Acute kidney injury Vomiting Hospital Discharge Instructions No known hospital discharge instructions. Encounters Encounter Facility Location Admit/Visit Date Discharge/Departure Date Attending Provider Admitted Inpatient [facility] Progressive Care Unit March 10, 2021 7:04pm Salina Langston Encounter Diagnosis Onset Date Acute dehydration Acute kidney injury Vomiting Functional Status Query Response Date Recorded Comment Comprehension Ability Understands Concepts March 10 6:54pm Speech Appropriate Clear March 10, 2021 6:54pm Query Response Date Recorded Comment Ambulation Ability Independent March 10, 2021 6:54pm Living Situation With Spouse March 10, 2021 6:54pm Immunizations No known immunizations. Plan of Care No Known Plan of Care Information Social History Query Response Date Recorded Comment Alcohol Use No March 10, 2021 6:54pm Smoking Status Former smoker March 10, 2021 6:59pm Substance/Street Drug Use No March 10, 2021 6 :54pm Query Response Start Date Stop Date Smoking Status Former smoker Vital Signs Vital Reading Result Reference Range Collection Date/Time Height 5 ft 10 in March 10, 2021 6 :54pm Weight 98.4 kg March 10, 2021 6 :54pm Temperature 98.4 F 97.6 F-99.6 F March 10, 2021 9:52pm Pulse 66 BPM 60-100 March 10, 2021 9 :52pm Respiration 20 RPM 12-March 11, 2021 1 :00am Pulse Oximetry 96 % 95-100 March 11, 2021 1:00am Blood Pressure Systolic 127 100-140 March 10, 2021 9:52pm Blood Pressure Diastolic 82 50-85 Naresh 2020 9:52pm Body Mass Index 31.1 March 10 1 6:54pm
--- OUTSIDE RECORDS SUMMARY | 2023-07-18 21:01 | XMS_ITS | Continuity of Care Document ---
Author Name [facility] Address [address] [place] [address] Organization [facility] Address [address] [place] [address] Care Team Providers Care Complaint Coordinator Name Role Phone Out of Town, Provider [...] March 11, 2021 12:40am 5.0 Urine Specific [place] March 11, 2021 12:40am 1.025 Urine Protein [...] 1-5 % High Test Performed b y: [address] [address] Financial Coordinator: Ace Cooley M.D. Ph.D.; CLIA# [id number] Chief Complaint and Reason for Visit Encounter [...] the Hospital Care Team at [facility] ([facility]). Our goal is [...] Recommended: WHO TO CALL CONTACT US AT [facility] IF: You have not seen your primary care provider if you have questions regarding your care in the hospital including questions regarding your medications, discharge instructions, or services arranged prior to seeing your primary care provider. oIf you were discharged from the Progressive Care Unit, contact us at: [phone] CONTACT YOUR PRIMARY CARE IF You are [...] Date Discharge/Departure Date Attending Provider Registered Inpatient [facility] Hospitalists March 10, 2021 7:04pm Sharee [...]
--- OUTSIDE RECORDS SUMMARY | 2023-07-18 21:01 | XMS_ITS | Continuity of Care Document ---
Author Name [facility] Address [address] [place] [address] Organization [facility] Address [address] [place] [address] Care Team Providers Care Police Dispatcher Name Role Phone Out of Town, Provider Primary Care Physician Simi vailable Salina Langston V Admitting Physician [phone] Dorys Farley Attending Physician [phone] Allergies, Adverse Reactions, Alerts Allergen Type Severity [...] US Kidney (Renal Complete) March 11, 2021 compl [...] March 11, 2021 12:40am 5.0 Urine Specific [place] March 11, 2021 12:40am 1.025 Urine Protein [...] 1-5 % High Test Performed b y: [address] [address] Microbiology Lab Assistant: Ace Cooley M.D. Ph.D.; CLIA# [id number] Chief Complaint and Reason for Visit Encounter [...] for by the Hospital Care Team at [facility] ([facility] [place] [place] Our goal is to make sure that [...] Recommended: WHO TO CALL CONTACT US AT [facility] [place] [place] IF: You have not seen your primary care provider if you have questions regarding your care in the hospital including questions regarding your medications, discharge instructions, or services arranged prior to seeing your primary care provider. oIf you were discharged from the Progressive Care Unit, contact us at: [phone] CONTACT YOUR PRIMARY CARE IF You are [...] Date Discharge/Departure Date Attending Provider Registered Inpatient [facility] Hospitalists March 10, 2021 7:04pm Sharee [...] 13 8:00am Blood [facility]stolic 149 100-140 [email or web address] 2020 8:51am Blood Pressure Diastolic 81 50-85 Mar [facility] 2020 8:51am Body Mass Index 31.1 March 10 6:54pm
--- OUTSIDE RECORDS SUMMARY | 2023-07-18 21:01 | XMS_ITS | Continuity of Care Document ---
Author Name [facility] Address [address] [place] [address] Organization [facility] Address [address] [place] [address] Care Team Providers Care National Park Ranger Name Role Phone Out of Town, Provider Primary Care Physician Simi vailable Salina Langston V Admitting Physician [phone] Dorys Farley Attending Physician [phone] Allergies, Adverse Reactions, Alerts Allergen Type Severity [...] March 11, 2021 12:40am 5.0 Urine Specific [place] March 11, 2021 12:40am 1.025 Urine Protein [...] 1-5 % High Test Performed b y: [address] [address] Regional Sales Engineer: Ace Cooley M.D. Ph.D.; CLIA# [id number] Chief Complaint and Reason for Visit Encounter [...] Hospital Care Team at [facility] ([facility]). Our goal is to make sure that [...] WHO TO CALL CONTACT US AT [facility] IF: You have not seen your primary care provider if you have questions regarding your care in the hospital including questions regarding your medications, discharge instructions, or services arranged prior to seeing your primary care provider. oIf you were discharged from the Progressive Care Unit, contact us at: [phone] CONTACT YOUR PRIMARY CARE IF You are [...] Date Discharge/Departure Date Attending Provider Registered Inpatient [facility] Hospitalists March 10, 2021 7:04pm Sharee [...]
--- OUTSIDE RECORDS SUMMARY | 2023-07-18 21:01 | XMS_ITS | Continuity of Care Document ---
Author Name [facility] Address [address] [place] [id number] Organization [facility] Address [address] [place] [address] Care Team Providers Care Supervisor Plastics Name Role Phone Out of Town, Provider Primary Care Physician Simi vailable Salina Langston V Admitting Physician [phone] Dorys Farley Attending Physician Allergies, Adverse Reactions, [...] March 11, 2021 12:40am 5.0 Urine Specific [place] March 11, 2021 12:40am 1.025 Urine Protein [...] 1-5 % High Test Performed b y: [address] [address] [employer] Application Developer: Ace Cooley M.D. Ph.D.; CLIA# [id number] Chief Complaint and Reason for Visit Encounter [...] Hospital Care Team at [facility] ([facility] Our goal is to make sure that [...] Recommended: WHO TO CALL CONTACT US AT [facility] IF: You have not seen your primary care provider if you have questions regarding your care in the hospital including questions regarding your medications, discharge instructions, or services arranged prior to seeing your primary care provider. oIf you were discharged from the Progressive Care Unit, contact us at: [phone] CONTACT YOUR PRIMARY CARE IF You are [...] Date Discharge/Departure Date Attending Provider Registered Inpatient [facility] Hospitalists March 10, 2021 7:04pm Sharee [...]
--- OUTSIDE RECORDS SUMMARY | 2023-07-18 21:01 | XMS_ITS | Continuity of Care Document ---
Author Name Unknown Address [address] [place] [id number] Phone [facility] Address [address] [place] [address] Phone Support Name Relationship Address Phone DEVORAH GUALLPA Spouse Unknown [phone] Out of Town, Provider Primary Care Provider Unknown Unavailable Salina Langston V Admit Provider [facility] [place] [address] Sharee Daily Attending Provider [facility] [place] [address] Chief Complaint and Reason for Visit Chief Complaint [place] Reason for Visit Acute dehydration Acute kidney injury Vomiting Allergies, Adverse Reactions, Alerts Allergen Type Severity Reaction Last Updated Verified Status escitalopram Allergy rash March 10, 2021 6:58pm Yes Active Social History Smoking Status Status Start Date End Date Date of Observa tion Ex-smoker (finding) February 6:14am Observation Status Observation Response Date of Response Alcohol Use No March 11, 2021 6:14am Substance/Street Drug Use Yes February 122020 6:14am Smoking Status Former smoker March 11, 2021 6:14am Additional Data Assigned Sex Male Problems Active Problems Medical Problem Onset Date Status Acute kidney injury Active BPH (benign prostatic hyperplasia) Active Acute dehydration Active Hyperlipidemia Active Hypertension Active Vomiting Active Medications Medication Status Dose Units Route Directions Qty Days St art Date End Date Instructions Atorvastatin Active 20 MG PO BEDTIME Feb 8:16am Atenolol Active 25 MG PO DAILY March 11, 2021 8:16am Amlodipine Active 5 MG PO DAILY March 11, 2021 8:16am Calcium Carbonate-Vitamin D3 Active 2 TAB PO DAILY March 11, 2021 8:16am Aspirin Active 81 MG PO DAILY March 11, 2021 8:16am Acetaminophen Active 1000 MG PO THREE TIMES A DAY March 11, 2021 8:16am Hydromorphone Active 2 MG PO THREE TIMES A DAY March 11, 2021 8:16am Citalopram Active 20 MG PO DAILY March 11, 2021 8:16am Tamsulosin Active 0.8 MG PO BEDTIME March 11, 2021 8:16am Prochlorperazine Active 25 MG MS Q12H March 11, 2021 8:16am Gabapentin Active 600 MG PO THREE BRYAN ES A DAY March 11, 2021 8:16am Triamterene-[place] chlorothiazid Active 1 TAB PO DAILY March 11, 2021 8:16am Ondansetron Active 4 MG PO Q8H March 11, 2021 8:16am Finasteride Active 5 MG PO BEDTIME March 11, 2021 8:16am Naloxone Active 1 SPR NA Q2M March 11, 2021 8:16am Immunizations Immunization Event Date Not Given Reason Dose Number [employer] Pulper Lot Number Vaccine Information Statement (VIS) Detail Covid-19 100mcg/0.5mL Moderna November 17, 2020 Covid-19 100mcg/0.5mL Moderna December 15, 2020 Vital Signs Vital Reading Result Reference Range Collection Date/Time Height 70 [in_i] March 10, 2021 6:54pm Weight 98.60 kg March 13 5:56am Body Temperature 98.1 [degF] 97.6-99.6 March 13, 2021 5:55am Heart Rate 76 /min 60-100 March 13 8:51am Respiratory rate 16 /min 12-24 March 13, 2021 5:55am Oxygen saturation by Pulse oximetry 98 % 95-100 March 13, 2021 8:0 0am BP Systolic 149 mm[Hg] 100-140 March 13 8:51am BP Diastolic 81 mm[Hg] 50-85 March 13 8:51am BMI (Body Mass Index) 31.1 kg/m2 February 112020 6:54pm Advance Directives Advance Directive Response Recorded Date/ Time Does patient have an Advanced Directive? No December 31, 2013 7:42am Do we have a copy on file here at [facility]? No March 10, 2021 6:53pm Pt has a Living Will? No December 31, 2013 7:42am Do we have a copy on file here at [facility]? No March 10, 2021 6:53pm Pt has a Power of Preschool Substitute Teacher? No December 31, 2013 7:42am Do we have a copy on file here at [facility]? No March 10, 2021 6:53pm Insurance Providers Guarantor LUDMILA FAIRCHILD Address [address] [facility] [address] Contact Info. Home Phone: Payer Policy Id Coverage Id Subscriber's Name Subscriber Id Effective Date Expiration Date MEDICARE OUT (DO NOT USE) [id number] A [id number] LUDMILA FAIRCHILD [id number] [facility] [place] BCBS ADVANTAGE [id number] SELF PAY Self N/A [place] MEDICAID (DO NOT USE) [id number] LUDMILA FAIRCHILD [id number] Encounters Encounter Location(s) Arrival/Admit Date Discharge /Depart Date Provider(s) Registered Outpatient [facility] March 10, 2021 7:04pm March 13, 2021 12:30pm Sharee Daily MD Recent Diagnosis Onset Date Acute dehydration Acute kidney injury Vomiting Assessments Diagnosis Onset Date Resolution Status Acute dehydration acute Acute kidney injury acute Vomiting acute Plan of Treatment Future Tests Future scheduled test information is unavailable Pending Tests Pending diagnostic test information is unavailable Future Visits Future appointment information is unavailable Referrals to Other Providers Reason for Referral Referral Start Date Provider Provider Contact Information Provider Address Yoni Ramírez MD Work Phone: [facility] [address] [facility] [address] Future Procedures Future procedure information is unavailable Future Medications Future medication information is unavailable Patient Instructions Acute Kidney Injury (DC) Goals Acute Goals Health Concerns: Continued, worsening or returning pain Hospital Discharge Instructions Additional Instructions Continue to stay hydrated throughout the day. Take anti-acid medication as prescribed; avoid high-acid foods. Follow up with primary care provider in 3-5 days for recheck following hospitalization. GENERAL DISCHARGE INSTRUCTIONS OUR GOAL You have been cared for by the Hospital Care Team at [facility] ([facility] Our goal is to make sure that [...] Recommended: WHO TO CALL CONTACT US AT [facility] IF: You have not seen your primary care provider if you have questions regarding your care in the hospital including questions regarding your medications, discharge instructions, or services arranged prior to seeing your primary care provider. oIf you were discharged from the Progressive Care Unit, contact us at: [phone] CONTACT YOUR PRIMARY CARE IF You are [...]
[2023-07-18 22:59] LABS: Hemoglobin A1C 6.3 % (<5.7)
[2023-07-18 23:17] LABS: ALT 19 U/L (16-63); AST 20 U/L (15-37); Alkaline Phosphatase 80 U/L (46-116); Anion Gap 11.5 mmol/L (3-11); BUN 12 mg/dL (7-18); Bilirubin, Total 0.3 mg/dL (0.2-1.0); CO2 26.5 mmol/L (21.0-32.0); CREATININE 1.1 mg/dL (0.70-1.30); Calcium 7.8 mg/dL (8.5-10.1); Chloride 104 mmol/L (98-107); Estimated GFR 76.85 (mL/min/1.73m2); Glucose 111 mg/dL (74-106); Potassium 4.2 mmol/L (3.5-5.1); Sodium 142 mmol/L (136-145); TSH 2.01 uIU/mL (0.36-3.74); Total Protein 6.5 g/dL (6.4-8.2); Vitamin B12 308 pg/mL (193-986)
[2023-07-19 20:14] LABS: PSA, Diagnostic <0.1 ng/mL (<=4.5)
[2023-07-28 17:38] LABS: Testosterone, Free 0.14 ng/dL (3.67-13.9); Testosterone, Total 7.1 ng/dL (240-950)
== END 2023-07-18 20:51 | disposition home or self-care (01) ==
LOC: NCHCN 20:50
PROVIDERS: PCP Internal Medicine; Visit Provider Internal Medicine
DX: R73.03 Prediabetes (principal); C61 Malignant neoplasm of prostate
CPT/HCPCS: 80053; 84402; 84403; 82607; 83036; 84153; 84443

== ENCOUNTER 2023-09-11 10:12 | Outpatient (CLI) | payer MEDICARE, MEDICAID, SELFPAY ==
[2023-09-11 14:05] LABS: Abs Immature Grans 0.02 10^3/uL (0.0-0.06); Absolute Basophil Count 0.03 10^3/uL (0.0-0.2); Absolute Eosinophil Count 0.28 10^3/uL (0.0-0.7); Absolute Lymphocyte Count 1.13 10^3/uL (1.2-3.4); Absolute Monocyte Count 0.58 10^3/uL (0.1-0.8); Absolute Neutrophil Count 4.91 10^3/uL (1.2-6.7); Basophils % 0.4; HCT 39.7 % (40.0-50.0); HGB 13.5 g/dL (13.5-17.5); Immature Grans % 0.3; Lymphocytes % 16.3; MCH 32.1 pg (27.0-33.0); MCV 94 fL (80-95); MPV 9.1 fL (8.0-11.0); Monocytes % 8.3; Neutrophils % 70.7; Platelet Count 294 10^3/uL (130-400); RBC 4.21 10^6/uL (4.36-5.78); RDW 12.4 % (11.8-14.1); RDW-SD 43.6 fL; WBC 6.95 10^3/uL (4.4-10.8)
[2023-09-11 14:20] LABS: ALT 27 U/L (16-63); AST 21 U/L (15-37); Albumin 3.9 g/dL (3.4-5.0); Alkaline Phosphatase 115 U/L (46-116); Anion Gap 11.8 mmol/L (3-11); BUN 13 mg/dL (7-18); Bilirubin, Total 0.8 mg/dL (0.2-1.0); CO2 26.2 mmol/L (21.0-32.0); Calcium 8.6 mg/dL (8.5-10.1); Chloride 102 mmol/L (98-107); Estimated GFR 86.16 (mL/min/1.73m2); Glucose 145 mg/dL (74-106); Potassium 4.1 mmol/L (3.5-5.1); Sodium 140 mmol/L (136-145); Total Protein 7.4 g/dL (6.4-8.2)
[2023-09-12 18:02] LABS: PSA, Ultrasensitive <0.01 ng/mL (<= 4.5)
[2023-09-14 15:20] LABS: Testosterone, Total 8.9 ng/dL (240-950)
== END 2023-09-11 10:13 | disposition home or self-care (01) ==
LOC: LBO 10:12
PROVIDERS: PCP Internal Medicine; Visit Provider Internal Medicine
DX: C61 Malignant neoplasm of prostate (principal); C77.5 Secondary and unspecified malignant neoplasm of intrapelvic lymph nodes
CPT/HCPCS: 36415; 80053; 84153; 84403; 85025

== ENCOUNTER → 2023-11-06 02:31 | Outpatient (CLI) | payer MEDICARE, MEDICAID, SELFPAY ==
--- NOTE | 2023-11-06 | DI.CT_ITS ---
Exam(s) CT CHEST/ABD/PEL W EXAM: CT CHEST/ABD/PEL W CLINICAL HISTORY: PROSTATE CANCER C61 METS TO INTRAPELVIC LYMPH NODE TECHNIQUE: Imaging Protocol: Axial computed tomography images with coronal and sagittal reformatted images were created and reviewed CONTRAST MATERIAL: Intravenous: Omnipaque 350 contrast volume:100 mL Oral: Yes COMPARISON: CT CT ABDOMEN PELVIS W from 10/06/2020 FINDINGS: CHEST: Tracheobronchial tree: Patent where visualized. Pulmonary parenchyma: There are atelectatic changes seen in the lung bases. No focal consolidating i nfiltrates are present. No pulmonary nodules are present. Mild centrilobular emphysematous changes are present. No architectural distortion. Visualized thyroid gland: Unremarkable. Mediastinum and Larissa: No dominant adenopathy or fluid collection. There is mild diffuse thickening of the wall of the distal esophagus. Calcified lymph nodes are seen in the mediastinum which can be se en with prior granulomatous disease. Pleura: No effusion or pneumothorax. Heart: The heart is not dilated. Mild coronary artery calcification. No pericardial effusion. Pulmonary arteries: No pulmonary emboli are identified. Aorta: Thoracic aorta non-dilated. There is no evidence of dissection. Mild atherosclerotic calcific ation is present. Lymph nodes: Within normal limits. Soft tissues: Unremarkable. Bones:Within normal limits for the patient's age. No aggressive osseous lesions are identified. ABDOMEN: Liver: Normal density. No measurable mass. Portal, Superior Mesenteric, and Splenic Veins: Unremarkable. Gallbladder and Biliary Tract: Status post cholecystectomy. There is no biliary ductal dilatation. Pancreas: Normal density, no abnormal calcifications or inflammatory process. Spleen: Calcified granuloma are seen in the spleen. Adrenals: No masses seen. Kidneys: Normal size, contour and axis. No radiodense stones or obstructive uropathy. No masses seen. Abdominal Aorta: Abdominal portion non-dilated. Atherosclerotic calcification of the abdominal aorta is present. Bowel: There is mild inflammation seen around the proximal sigmoid colon which may represent a coliti s. There are few scattered diverticula in the colon. Diverticulitis can not be excluded. There is no evidence of bowel obstruction. There is a moderate amount of stool in the colon. Appendix is unr emarkable. Peritoneal Cavity: No ascites, collection or mesenteric inflammatory response. No free air. Lymph Nodes: Within normal limits. Bones: Within normal limits for the patient's age. There are marked degenerative changes seen in the right hip. There is no change in appearance of the pelvis and sacrum. Soft Tissues: There is a small fat containing supraumbilical hernia. PELVIS: Bladder: There is diffuse thickening of the wall of the urinary bladder. Reproductive Organs: There are radiation seeds in the prostatic bed. There has been significant decr ease in size of the prostate gland. Lymph Nodes: Within normal limits. Bones: Within normal limits. IMPRESSION: 1. Marked decrease in size of the prostate gland with radiation seeds seen in the prostate bed. 2. Diffuse thickening of the wall of the urinary bladder. This may be due to underdistention, tumor/ residual tumor or cystitis. 3. No evidence of pulmonary metastatic disease. 4. Mild thickening of the wall of the distal esophagus. This may be due to underdistention, esophagi tis or neoplasm. Please correlate clinically. Follow-up may be obtained with a barium swallow or up per endoscopy. 5. Mild inflammation around the proximal sigmoid colon which may represent colitis. RADIATION DOSE DELIVERED: Total DLP DATA REPOSITORY: All CT scans at this facility are submitted to the National Radiology Data Registry (NRDR) Dose Index Registry (DIR) with the [employer] (ACR). RADIATION OPTIMIZATION: All CT scans at this facility use at least one of these dose optimization te chniques: automated exposure control; mA and/or kV adjustment per patient size (includes targeted exa ms where dose is matched to clinical indication); or iterative reconstruction.
--- NOTE | 2023-11-06 | DI.NM_ITS ---
Exam(s) NM BONE SCAN WHOLE BODY GRP EXAM: NM BONE SCAN WHOLE BODY GRP CLINICAL HISTORY: PROSTATE CANCER C61 METS TO INTRAPELVIC LYMPH NODE. TECHNIQUE: Injected Dose: 24 mCi Tc-99m MDP Delayed Images: 2-3 hours. COMPARISON: CT CT CHEST/ABD/PEL W from 11/06/2023 FINDINGS: Symmetric axial uptake. Bilateral renal excretion is identified. No focal area of intense suspicious uptake is seen. There is increased uptake seen in the right hip secondary to the patient's marked deg enerative changes. IMPRESSION: 1. No uptake is seen to suggest osseous metastatic disease. DATA REPOSITORY:
[2023-11-06 11:50] LABS: Abs Immature Grans 0.03 10^3/uL (0.0-0.06); Absolute Basophil Count 0.03 10^3/uL (0.0-0.2); Absolute Eosinophil Count 0.26 10^3/uL (0.0-0.7); Absolute Lymphocyte Count 0.86 10^3/uL (1.2-3.4); Absolute Neutrophil Count 4.49 10^3/uL (1.2-6.7); Basophils % 0.5; Eosinophils % 4.2; HCT 36.6 % (40.0-50.0); HGB 12.2 g/dL (13.5-17.5); Immature Grans % 0.5; Lymphocytes % 13.9; MCH 32.4 pg (27.0-33.0); MCHC 33.3 % (32.0-36.0); MCV 97 fL (80-95); MPV 9.2 fL (8.0-11.0); Monocytes % 8.1; Neutrophils % 72.8; Platelet Count 287 10^3/uL (130-400); RBC 3.76 10^6/uL (4.36-5.78); RDW-SD 46.8 fL; WBC 6.17 10^3/uL (4.4-10.8)
[2023-11-06 12:05] LABS: ALT 35 U/L (16-63); AST 22 U/L (15-37); Albumin 3.8 g/dL (3.4-5.0); Alkaline Phosphatase 112 U/L (46-116); BUN 17 mg/dL (7-18); Bilirubin, Total 0.7 mg/dL (0.2-1.0); CREATININE 1.2 mg/dL (0.70-1.30); Calcium 8.2 mg/dL (8.5-10.1); Chloride 103 mmol/L (98-107); Estimated GFR 69.23 (mL/min/1.73m2); Glucose 117 mg/dL (74-106); Potassium 4.7 mmol/L (3.5-5.1); Sodium 140 mmol/L (136-145); Total Protein 7.1 g/dL (6.4-8.2)
[2023-11-06] MEDS: Normal Saline - Diluent 50 ML VIAL IJ (13:59)
[2023-11-06] MEDS: Omnipaque 350 MG/ML 500 ML BTL-Imaging package IJ (14:00)
[2023-11-06] MEDS: Barium Sulfate 2% W/V-Creamy Vanilla Smoothie 450 ML BTL PO (14:01)
[2023-11-07 17:41] LABS: PSA, Ultrasensitive <0.01 ng/mL (<= 4.5)
[2023-11-11 14:15] LABS: Testosterone, Total 10 ng/dL (240-950)
== END ==
PROVIDERS: PCP Internal Medicine; Visit Provider Nurse Practitioner
DX: C61 Malignant neoplasm of prostate (principal)
CPT/HCPCS: 74177; 78306; 80053; 84153; 84403; 71260; 85025

== ENCOUNTER 2024-01-21 16:30 | Outpatient (CLI) | payer MEDICARE, MEDICAID, SELFPAY ==
[2024-01-21 13:36] LABS: Abs Immature Grans 0.02 10^3/uL (0.0-0.06); Absolute Basophil Count 0.03 10^3/uL (0.0-0.2); Absolute Eosinophil Count 0.33 10^3/uL (0.0-0.7); Absolute Lymphocyte Count 1.42 10^3/uL (1.2-3.4); Absolute Monocyte Count 0.58 10^3/uL (0.1-0.8); Absolute Neutrophil Count 5.49 10^3/uL (1.2-6.7); Basophils % 0.4 %; Eosinophils % 4.2 %; HGB 13.9 g/dL (13.5-17.5); Immature Grans % 0.3 %; MCH 31.8 pg (27.0-33.0); MCHC 33.1 % (32.0-36.0); MCV 96 fL (80-95); Monocytes % 7.4 %; Neutrophils % 69.7 %; Platelet Count 267 10^3/uL (130-400); RBC 4.37 10^6/uL (4.36-5.78); RDW 12.5 % (11.8-14.1); RDW-SD 44.8 fL; WBC 7.87 10^3/uL (4.4-10.8)
[2024-01-21 13:51] LABS: ALT 30 U/L (16-63); AST 19 U/L (15-37); Albumin 4.1 g/dL (3.4-5.0); Alkaline Phosphatase 111 U/L (46-116); Anion Gap 8.8 mmol/L (3-11); BUN 18 mg/dL (7-18); Bilirubin, Total 0.7 mg/dL (0.2-1.0); CO2 28.2 mmol/L (21.0-32.0); CREATININE 1.3 mg/dL (0.70-1.30); Calcium 8.7 mg/dL (8.5-10.1); Chloride 103 mmol/L (98-107); Estimated GFR 62.89 (mL/min/1.73m2); Glucose 129 mg/dL (74-106); Potassium 4.3 mmol/L (3.5-5.1); Sodium 140 mmol/L (136-145); Total Protein 7.5 g/dL (6.4-8.2)
[2024-01-23 19:37] LABS: PSA, Ultrasensitive <0.01 ng/mL (<= 4.5)
[2024-01-24 12:34] LABS: Testosterone, Total 13 ng/dL (240-950)
== END 2024-01-21 16:31 | disposition home or self-care (01) ==
LOC: LBO 16:31
PROVIDERS: PCP Internal Medicine; Visit Provider Internal Medicine
DX: C61 Malignant neoplasm of prostate (principal)
CPT/HCPCS: 36415; 80053; 84153; 84403; 85025

== ENCOUNTER 2024-04-15 04:48 | Outpatient (CLI) | payer MEDICARE, MEDICAID, SELFPAY ==
[2024-04-15 12:43] LABS: Abs Immature Grans 0.03 10^3/uL (0.0-0.06); Absolute Basophil Count 0.03 10^3/uL (0.0-0.2); Absolute Eosinophil Count 0.24 10^3/uL (0.0-0.7); Absolute Lymphocyte Count 0.98 10^3/uL (1.2-3.4); Absolute Monocyte Count 0.64 10^3/uL (0.1-0.8); Absolute Neutrophil Count 7.18 10^3/uL (1.2-6.7); Basophils % 0.3 %; Eosinophils % 2.6 %; HCT 41.5 % (40.0-50.0); HGB 13.7 g/dL (13.5-17.5); Immature Grans % 0.3 %; Lymphocytes % 10.8 %; MCH 32.2 pg (27.0-33.0); MCV 97 fL (80-95); MPV 8.9 fL (8.0-11.0); Platelet Count 327 10^3/uL (130-400); RBC 4.26 10^6/uL (4.36-5.78); RDW 13.2 % (11.8-14.1); RDW-SD 47.7 fL
[2024-04-15 13:01] LABS: ALT 25 U/L (16-63); AST 17 U/L (15-37); Albumin 3.4 g/dL (3.4-5.0); Alkaline Phosphatase 110 U/L (46-116); Anion Gap 6.2 mmol/L (3-11); BUN 10 mg/dL (7-18); Bilirubin, Total 0.54 mg/dL (0.2-1.0); CO2 29.8 mmol/L (21.0-32.0); CREATININE 1.1 mg/dL (0.70-1.30); Chloride 102 mmol/L (98-107); Estimated GFR 76.85 (mL/min/1.73m2); Glucose 128 mg/dL (74-106); Potassium 4.3 mmol/L (3.5-5.1); Sodium 138 mmol/L (136-145)
[2024-04-16 22:58] LABS: PSA, Ultrasensitive <0.01 ng/mL (<= 4.5)
[2024-04-18 18:05] LABS: Testosterone, Total 13 ng/dL (240-950)
== END 2024-04-15 04:49 | disposition home or self-care (01) ==
PROVIDERS: PCP Internal Medicine; Visit Provider Internal Medicine
DX: C61 Malignant neoplasm of prostate (principal)
CPT/HCPCS: 36415; 80053; 84153; 84403; 85025

== ENCOUNTER → 2024-06-03 12:59 | Outpatient (BNVA) | payer MEDICARE, MEDICAID, SELFPAY | PROVIDERS: PCP Internal Medicine; Referring Provider Internal Medicine; Visit Provider Nurse Practitioner Gerontology | DX: C61 Malignant neoplasm of prostate (principal); C67.5 Malignant neoplasm of bladder neck; R30.0 Dysuria | CPT/HCPCS: 81003; 99205 ==

== ENCOUNTER 2024-07-31 18:33 | Outpatient (REF) | payer MEDICARE, MEDICAID, SELFPAY ==
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
--- OUTSIDE RECORDS SUMMARY | 2024-07-31 18:39 | XMS_ITS ---
Author Organization Unknown ALLERGIES AND ADVERSE REACTIONS No information ASSESSMENT No information CHIEF COMPLAINT No information MEDICATIONS No information OBJECTIVE DATA No information PHYSICAL EXAMINATION No information TREATMENT PLAN Planned Care Start Date Provider Encounter for Check-up [id number] PROBLEMS No information RESULTS No information REVIEW OF SYSTEMS No information SUBJECTIVE DATA No information VITAL SIGNS No information
--- OUTSIDE RECORDS SUMMARY | 2024-07-31 18:40 | XMS_ITS | Encounter Summary ---
Author Organization [facility] [place] [address] Care Team Providers Care Disintegrator Name Role Phone Yoni Ramírez MD Primary Care Provider [phone] Encounter Details Date Type Department Care Team (Late st Contact Info) Description 09/13/2023 Telephone Hematology [place] [phone] Victorina Dlalas Social History Tobacco Use Types Packs/Day Years [...] place to sleep or slept in a nursing home (including now)? No 04/13/2022 Sex and Gender Information Value Date Recorded Sex Assigned at Not on file Gender Identity Not on file Sexual Orientation Not on file documented as of this encounter Miscellaneous Notes * Telephone Encounter - Victorina Strong - 09/13/2023 9:59 AM EST Procedure Prior Authorization Procedure/Cpt: 58256 Pet scan, [id number] Ct c/a/p Rationale for request: C61, C77.5 Health plan: [place] advantage medicare Authorizing patient intake representative name: Call to health plan on: 09/13/23 Health plan decision: No PA is required Call Ref #: [id number] Quantity approved: Authorization number: Start date: End date: Facility: [facility] Per Sd fee schedule ([email or web address]) NO PA REQUIRED documented in this encounter Plan of Treatment Upcoming Encounters Date Type Department Care Team (Latest Contact Info) Description 08/05/2024 11:30 AM EST Office Visit Hematology/Oncolog y at [address] [phone] Deyvi Ibrahim MD [facility] [place] [address] Isabel Berry APRN [facility] [place] [address] 08/05/2024 12:00 PM EST Infusion Hematology Oncology at [address] [phone] 08/27/2024 10:00 AM EST Hospital Encounter [place] [phone] Gulshan Elder MD [facility] [place] [address] 08/27/2024 10:00 AM EST Anesthesia Event [place] [phone] Swati Gonzalez MD [facility] [place] [address] 08/27/2024 10:00 AM EST - 08/27/2024 11:00 AM EST Surgery [place] [phone] Gulshan Eldre MD [facility] [place] [address] EGD, UPPER GI ENDOSCOPY (WRVU 2.09) Scheduled [...] for colon cancer 08/27/2024 10:00 AM EST documented as of this encounter Visit Diagnoses Not on filedocumented in this encounter Care Teams Disintegrator Relationship Specialty Start Date End Date Yoni Ramírez MD [address] [place] [id number] PCP - General 07/05/10 documented as of this encounter
--- OUTSIDE RECORDS SUMMARY | 2024-07-31 18:40 | XMS_ITS | Encounter Summary ---
Author Organization [facility] [place] [address] Care Team Providers Care Supervisor Seaming Name Role Phone Yoni Ramírez MD Primary Care Provider [phone] Reason for Visit * Reason Onset Date Comments Labs Only 04/22/2024 Encounter Details Date Type Department Care Team (Late st Contact Info) Description 04/22/2024 Telephone Hematology/Oncology at [address] [phone] Ann Ceron, RN Labs Only Social History Tobacco Use Types Packs/Day Years [...] place to sleep or slept in a penitentiary (including now)? No 04/13/2022 Sex and Gender Information Value Date Recorded Sex Assigned at Not on file Gender Identity Not on file Sexual Orientation Not on file documented as of this encounter Miscellaneous Notes * Telephone Encounter - Ann Ceron RN - 04/22/2024 3:00 PM EDT Call to Jeff to discuss lab results and plan for 3 months, he was thankful for the call. * Telephone Encounter - Ann Ceron RN - 04/22/2024 9:12 AM EDT Labs at [facility] on 04/15/24 PSA 0.01 Total Testosterone: 13 documented in this encounter Plan of Treatment Upcoming Encounters Date Type Department Care Team (Latest Contact Info) Description 08/05/2024 11:30 AM EST Office Visit Hematology/Oncolog y at [address] [phone] Deyvi Ibrahim MD [facility] HEMATOLOGY [place] [address] Isabel Berry APRN [facility] [place] [address] 08/05/2024 12:00 PM EST Infusion Hematology Oncology at [address] [phone] 08/27/2024 10:00 AM EST Hospital Encounter [place] [address] Gulshan Elder MD [facility] [place] [address] 08/27/2024 10:00 AM EST Anesthesia [place] [phone] Swati Gonzalez MD [facility] DR [place] [address] 08/27/2024 10:00 AM EST - 08/27/2024 11:00 AM EST Surgery [place] [phone] Gulshan Elder MD [facility] [place] [address] EGD, UPPER GI ENDOSCOPY (WRVU 2.09) Scheduled [...] on filedocumented in this encounter Care Teams Supervisor Seaming Relationship Specialty Start Date End Date Yoni Ramírez MD [address] [place] [id number] PCP - General 07/05/10 documented as of this encounter
--- OUTSIDE RECORDS SUMMARY | 2024-07-31 18:40 | XMS_ITS | Encounter Summary ---
Author Organization [facility] [place] [address] Care Team Providers Care Railroad Conductor Name Role Phone Yoni Ramírez MD Primary Care Provider [phone] Encounter Details Date Type Department Care Team (Late st Contact Info) Description 04/17/2024 Telephone Gastroenterology at [facility] [place] [phone] Carmela Blackmon Social History Tobacco Use Types Packs/Day Years [...] place to sleep or slept in a usp (including now)? No 04/13/2022 Sex and Gender Information Value Date Recorded Sex Assigned at Not on file Gender Identity Not on file Sexual Orientation Not on file documented as of this encounter Miscellaneous Notes * Telephone Encounter - Carmela Blackmon - 04/17/2024 2:23 PM EDT Jeff Arreguin [id number] Diagnosis/Indication: screen for colon cancer; esophagitis; GERD; abnormal CT abdomen Please review patient chart to confirm if previous Endoscopy procedure was performed within system. If yes, take note of Anesthesia type used. If previous procedure found, and with MAC/propofol Anesthesia support was used, schedule this procedure with Anesthesia and skip the Anesthesia portion of questions. If not performed within system, not performed at all, or performed with IVCS, ask Anesthesia questions. SCHEDULING QUESTIONS (ask all patient these questions) Have you ever had a/an Upper Endoscopy & Colonoscopy before? Yes: Date [facility] in [place] If yes, did you have any problems with the procedure (such as waking up during the procedure, pain or difficulties afterwards, etc.)? No What type of sedation was used: Other: unsure (ASK ONLY FOR COLONOSCOPY PROCEDURES) Are you aware, or have you ever been told that you had a poor prep or failed prep with a previous colonoscopy? No If yes, assign the Extended MiraLAX Prep (ASK ONLY FOR COLONOSCOPY PROCEDURES) Do you have an ongoing history of constipation? (E.g., hard stools, >2 days without a bowel movement, straining or difficulty passing stool) Yes If yes, assign the Extended MiraLAX Prep Do you take any blood thinners or have you been diagnosed with a bleeding disorder that increases your risk of bleeding with procedures? No Do you have a Pacemaker or Defibrillator device? If yes, send pool message to Cardiology with patient information and date or procedure. No Do you have diabetes? If yes, call PCP/managing provider to discuss use of prep and any questions or concerns related to. No If yes, assign the Extended MiraLAX Prep Do you take any iron supplements or vitamins that contain iron? No Do you have a preference regarding the gender of your provider? No ANESTHESIA QUESTIONS (YES to any question, please book with Anesthesia support) Have you ever been diagnosed with Pulmonary Hypertension and/or Congential Heart Disease? No Have you been diagnosed with A-Fib (atrial fibrillation) that is NOT being well controled with medications? No Have you ever had an allergic or adverse reaction to Fentanyl or Versed? No Have you had a problem with sedation or anesthesia? (Waking up during procedure, extreme confusion after, etc.) No Do you have a diagnosis of Obstructive Sleep Apnea that requires the use of a c- pap machine? No Do you use an oxygen tank at home? No Do you use a rescue inhaler more than twice per day? (COPD, severe asthma) No Do you experience breathing problems when you lay flat for a period of time? No Do you regularly take prescription opioid pain medications on a daily basis? (Includes oxycodone, Percocet, Suboxone, methadone, etc.) Yes If yes, assign the Extended MiraLAX Prep SCHEDULING CONFIRMATIONS: Please note any and all parts of your conversation with the patient here. We offer all new patients an opportunity to have an appointment with one of our associate care providers to learn more about your upcoming procedure, ask questions and get answers. These appointmentsare offered via telehealth. Would you be interested in scheduling this appointment? (Only ask if NEW referral patient; skip this question if [facility] provider ordered the procedure.) No Is there any other information or concerns you would like to us to share with your care team in relation to your upcoming scheduled procedure? Yes: has cancer You must have a responsible democrat who will drive you to your procedure, stay on campus for the entire duration of your procedure, and drive you home from your procedure. Who will likely be your spike driver for the procedure? *Please Verify the height and weight, and adjust if height and/or weight have changed* Estimated body mass index is 36.69 kg/m?? as calculated from the following: Height as of 04/15/24: 174.6 cm (5' 8.74). Weight as of 04/15/24: 111.9 kg (246 lb 9.6 oz). *Patient must be scheduled for Anesthesia support if BMI is 40 or above* Age:58 y.o. documented in this encounter Plan of Treatment Upcoming Encounters Date Type Department Care Team (Latest Contact Info) Description 08/05/2024 11:30 AM EST Office Visit Hematology/Oncolog y at [address] [phone] Deyvi Ibrahim MD [facility] [address] [place] [address] Isabel Berry APRN [facility] [place] [address] 08/05/2024 12:00 PM EST Infusion Hematology Oncology at [address] [phone] 08/27/2024 10:00 AM EST Hospital En[place] [phone] Gulshan Elder MD [facility] [address] 08/27/2024 10:00 AM EST Anesthesia [place] [phone] Swati Gonzalez MD [facility] [place] [address] 08/27/2024 10:00 AM EST - 08/27/2024 11:00 AM EST [place] [phone] Gulshan Elder MD [facility] [address] EGD, UPPER GI ENDOSCOPY (WRVU 2.09) Scheduled [...] on filedocumented in this encounter Care Teams Railroad Conductor Relationship Specialty Start Date End Date Yoni Ramírez MD [address] [place] [id number] PCP - General 07/05/10 documented as of this encounter
--- OUTSIDE RECORDS SUMMARY | 2024-07-31 18:40 | XMS_ITS | Encounter Summary ---
Author Organization [facility] [place] [address] Care Team Providers Care Equipment Service Engineer Name Role Phone Yoni Ramírez MD Primary Care Provider Encounter Details Date Type Department Care Team (Late st Contact Info) Description 11/06/2023 Ancillary Procedure Radiology Library at [facility] [place] [address] [place] [phone] Yoni Ramírez MD [address] [place] [phone] Social History Tobacco Use Types Packs/Day Years [...] place to sleep or slept in a [place] (including now)? No 04/13/2022 Sex and Gender Information Value Date Recorded Sex Assigned at Not on file Gender Identity Not on file Sexual Orientation Not on file documented as of this encounter Plan of Treatment Upcoming Encounters Date Type Department Care Team (Latest Contact Info) Description 08/05/2024 11:30 AM EST Office Visit Hematology/Oncolog y at [address] [phone] Deyvi Ibrahim MD [facility] DR [place] [address] Isabel Berry APRN [facility] [place] [address] 08/05/2024 12:00 PM EST Infusion Hematology Oncology at [address] [phone] 08/27/2024 10:00 AM EST Hospital Encounter [place] [phone] Gulshan Elder MD [facility] [place] [address] 08/27/2024 10:00 AM EST Anesthesia Event [place] [phone] Swati Gonzalez MD [facility] [place] [address] 08/27/2024 10:00 AM EST - 08/27/2024 11:00 AM EST Surgery [place] [phone] Gulshan Elder MD [facility] [place] [address] EGD, UPPER GI ENDOSCOPY (WRVU 2.09) Scheduled [...] AM EST documented as of this encounter Procedures Procedure Name Priority Date/Time Associated Diagnosis Comments FILM LIBRARY STORAGE ONLY NUCLEAR MEDICINE Routine 11/06/2023 12:00 AM EDT documented in this encounter Results * Film Library- Storage Only nuclear medicine (11/06/2023 12:00 AM EDT) Narrative [facility] - 11/07/2023 3:57 AM EDT This exam is auto-finalizing. It's purpose is for storage only. Yoni Ramírez MD IMG FILM LIBRARY ORD ERABLES Performing Organization Address City/State/[facility] Co de Phone Number [place], [place] documented in this encounter Visit Diagnoses Not on filedocumented in this encounter Care Teams Equipment Service Engineer Relationship Specialty Start Date End Date Yoni Ramírez MD [address] [place] [phone] PCP - General 07/05/10 documented as of this encounter
--- OUTSIDE RECORDS SUMMARY | 2024-07-31 18:40 | XMS_ITS | Encounter Summary ---
Author Organization [facility] [place] [address] Care Team Providers Care Wood Tile Installer Name Role Phone Yoni Ramírez MD Primary Care Provider [phone] Encounter Details Date Type Department Care Team (Late st Contact Info) Description 02/25/2024 Telephone Hematology/Oncology at [address] [phone] Stephanie Rodriguez, RN Social History Tobacco Use Types Packs/Day Years [...] place to sleep or slept in a halfway (including now)? No 04/13/2022 Sex and Gender Information Value Date Recorded Sex Assigned at Not on file Gender Identity Not on file Sexual Orientation Not on file documented as of this encounter Miscellaneous Notes * Telephone Encounter - Stephanie Rodriguez RN - 02/25/2024 3:33 PM EDT Received the following message from patient via [employer]: Devora, I am reaching out to you to report a possible side effect of treatment but not sure. My left breastand nipple are very sore and has been for awhile. At first I ignored it thinking it was nothing andwould go away but it has not let up. I also was experiencing dizzy spells when standing or walking for about a week. I feel 2 days ago from passing out while standing and received minor injuries. The dizzy spells have seemed to let up since then and much better now. But the breast pain is still there. Not sure if that is a concern or just side effects of the lupron. Best regards, Jeff. RN Follow-up Triage Note Diagnosis: Prostate CA Treatment: Lupron 22.5mg on 01/21/2024 Reason for Call: Follow-up to [facility] message above Assessment: RN call to patient. No answer, mailbox is full and unable to leave message. Responded to patient via [facility]. See that thread. documented in this encounter Plan of Treatment Upcoming Encounters Date Type Department Care Team (Latest Contact Info) Description 08/05/2024 11:30 AM EST Office Visit Hematology/Oncolog y at [address] [phone] Deyvi Ibrahim MD [facility] [place] [address] Isabel Berry APRN [facility] [place] [address] 08/05/2024 12:00 PM EST Infusion Hematology Oncology at [address] [phone] 08/27/2024 10:00 AM EST Hospital Encounter [place] [phone] Gulshan Elder MD [facility] [place] [address] 08/27/2024 10:00 AM EST Anesthesia [place] [phone] Swati Gonzalez MD [facility] [place] [address] 08/27/2024 10:00 AM EST - 08/27/2024 11:00 AM EST [place] [phone] Gulshan Elder MD [facility] [place] [address] EGD, UPPER GI ENDOSCOPY (WRVU 2.09) Scheduled [...] on filedocumented in this encounter Care Teams Wood Tile Installer Relationship Specialty Start Date End Date Yoni Ramírez MD [address] [address] PCP - General 07/05/10 documented as of this encounter
--- OUTSIDE RECORDS SUMMARY | 2024-07-31 18:40 | XMS_ITS | Encounter Summary ---
Author Organization [facility] Address [facility] [place] [address] Care Team Providers Care Cheese Production Supervisor Name Role Phone Yoni Ramírez MD Primary Care Provider [phone] Encounter Details Date Type Department Care Team (Latest Contact Info) Description 01/21/2024 Travel Social History Tobacco Use Types Packs/Day Years [...] place to sleep or slept in a retirement (including now)? No 04/13/2022 Sex and Gender Information Value Date Recorded Sex Assigned at Not on file Gender Identity Not on file Sexual Orientation Not on file documented as of this encounter Plan of Treatment Upcoming Encounters Date Type Department Care Team (Latest Contact Info) Description 08/05/2024 11:30 AM EST Office Visit Hematology/Oncolog y at [address] [phone] Deyvi Ibrahim MD [facility] HEMAT[place]Y [place] [address] Isabel Berry APRN [facility] [place] [address] 08/05/2024 12:00 PM EST Infusion Hematology Oncology at [address] [phone] 08/27/2024 10:00 AM EST Hospital En[place] [phone] Gulshan Elder MD [facility] [place] [address] 08/27/2024 10:00 AM EST Anesthesia [place] [phone] Swati Gonzalez MD [facility] [place] [address] 08/27/2024 10:00 AM EST - 08/27/2024 11:00 AM EST [place] [phone] Gulshan Elder MD [facility] [place] [address] EGD, UPPER GI ENDOSCOPY (WRVU 2.09) Scheduled Procedures Name Priority Associated Diagnoses Date/Ti pr EGD, UPPER GI ENDOSCOPY (WRVU 2.09) Abnormal [...] on filedocumented in this encounter Care Teams Cheese Production Supervisor Relationship Specialty Start Date End Date Yoni Ramírez MD [address] [place] [phone] PCP - General 07/05/10 documented as of this encounter
--- OUTSIDE RECORDS SUMMARY | 2024-07-31 18:40 | XMS_ITS | Encounter Summary ---
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 No 04/13/2022 Sex and Gender Information Value Date Recorded Sex Assigned at Not on file Gender Identity Not on file Sexual Orientation Not on file documented as of this encounter Last Filed Vital Signs Vital Sign Reading Time Taken Comments Blood Pressure 147/96 09/11/2023 2:26 PM EST Pulse 87 09/11/2023 2:26 PM EST Temperature 35.9 ??C (96.6 ??F) 09/11/2023 2:26 PM ES T Respiratory Rate 18 09/11/2023 2:26 PM EST Oxygen Saturation 99% 09/11/2023 2:26 PM EST Inhaled Oxygen Concentration - - Weight 114.8 kg (253 lb) 09/11/2023 2:26 PM EST Height 175.3 cm (5' 9.02) 09/11/2023 2:26 PM ES T Body Mass Index 37.34 09/11/2023 2:26 PM EST documented in this encounter Progress Notes * Isabel Berry APRN - 09/11/2023 2:30 PM EST Images from the original note were not included. 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 Enamorado for consultation on new diagnosis of prostate cancer. He initially presented with urinary retention about 4-5 months ago. He was seen by urologist Dr. Altman, who placed catheter. PARTH demonstrated large prostate as well as CT scan of abdomen pelvis. Was seen by Dr. Enamorado and had pelvic MRI. He underwent TURP on October 20. Pathology was consistent with prostatic adenocarcinoma grade 4, Jj 4+4. His treatment history is below. Interval history:Jeff Arreguin is in clinic for follow-up on prostate cancer, metastatic to the LN. He continues on lupron. His hot flashes are improved. Continues venlafaxine. He had problems with a UTI and hematuria and was treated with antibiotics and this all resolved. No additional problems with hematuria. Nocturia improved to 2-3x per night. No bone pain. He has low pelvic discomfort presentx 2 months which is more noticeable, improves with bowel movements. No palpable pelvic lymphadenopathy. The remainder of his review of systems reviewed and is negative. PMH: Admission with diverticulitis/MARIAN, Hyperlipidemia, obesity, hypertension, osteoarthritis, history of kidney disease, diverticulitis, Social History: Quit smoking 10 years ago, does not drink alcohol, he lives at home with his , he is on disability, Family History: Mother had a breast and ovarian cancer, 2 aunts had breast and ovarian cancer Allergies: Allergies Allergen Reactions Ephedrine Anxiety Suboxone [Buprenorphine-Naloxone] Hives Lexapro [Escitalopram] Hives [place] odd Medications: Your Medications Accurate as of September 11, 2023 3:10 PM. If you have any questions, ask your nurse or doctor. Continued medications with new dosing Dose Details Calcium Citrate-Vitamin D3 315 mg-6.25 mcg (250 unit) Tablet Take 2 tablets by mouth 3 times daily. What changed: how much to take when to take this 2 tablet Refills: 0 Continued medications, unchanged Dose Details acetaminophen 500 mg tablet Commonly known as: Tylenol Take 2 tablets by mouth every 6 hours as needed for Pain. 1,000 mg Refills: 0 amitriptyline 10 mg tablet Commonly known as: Elavil 25 mg. 25 mg Refills: 0 aspirin EC 81 mg EC (DR) tablet Take 1 tablet by mouth every evening. 81 mg Quantity: 30 tablet Refills: 3 atorvastatin 20 mg tablet Commonly known as: Lipitor TAKE ONE TABLET BY MOUTH EVERY EVENING Refills: 0 cloNIDine 0.1 mg tablet Commonly known as: Catapres Take 0.1 mg by mouth 2 times daily. 0.1 mg Refills: 0 HYDROmorphone 4 mg tablet Commonly known as: Dilaudid Take 4 mg by mouth 4 times daily. 4 mg Refills: 0 metoprolol succinate XL 100 mg ER 24 hr tablet Commonly known as: Toprol-XL Take 100 mg by mouth daily. 100 mg Refills: 0 naloxone 4 mg/actuation [place], Non-Aerosol Commonly known as: Narcan Narcan 4 mg/actuation nasal spray Take 1 spray as needed by nasal route. Refills: 0 ondansetron ODT 4 mg disintegrating tablet Commonly known as: Zofran-ODT Take 4 mg by mouth every 8 hours as needed for Nausea. 4 mg Refills: 0 pantopraz[address] EC [address] tablet Commonly known as: Protonix daily as needed. Refills: 0 potassium chloride 20 mEq ER tablet Commonly known as: Klor-Con, K-Tab daily as needed. Refills: 0 prochlorperazine 25 mg rectal suppository Commonly known as: Compazine Place 25 mg rectally every 12 hours as needed. 25 mg Refills: 0 tamsulosin 0.4 mg capsule Commonly known as: Flomax 0.4 mg nightly. 0.4 mg Refills: 0 venlafaxine XR 37.5 mg ER 24 hr capsule Commonly known as: Effexor-XR Take 1 capsule by mouth daily. 37.5 mg Quantity: 30 capsule Refills: 11 Review of Systems: As in interval history PE: General: AAAx3, in NAD Head: Normocephalic, without obvious abnormality, atraumatic Neck: No adenopathy Lungs: Clear to auscultation bilaterally, respirations unlabored Heart: RRR Abdomen: Soft, non-tender, bowel sounds active all four quadrants, no masses, no organomegaly. There is no appreciable ascites Extremities: BLE swelling is chronic and stable. No inguinal lymphadenopathy. Skin: No rash Lymph nodes: Cervical, supraclavicular, and axillary nodes normal Neurologic: Normal Vitals BP (!) 147/96 (Patient Position: Sitting) Pulse 87 Temp 35.9 ??C (96.6 ??F) (Temporal) Resp 18 Ht 175.3 cm (5' 9.02) Wt 114.8 kg (253 lb) SpO2 99% BMI 37.34 kg/m?? Pathology: 170 gene panel:TMPRSS2, ERG TMPRSS2- ERG fusion transcript 10/20/21 Bladder neck tumor and prostatic tissue, transurethral resection: Prostatic adenocarcinoma, grade group 4, Jj grade 4+4, involving 100% of the submitted tissue. INTERPRETATION Block Antibody Result (Positive/Negative) A-1 MLH1 Positive, intact nuclear staining MSH2 Positive, intact nuclear staining MSH6 Positive, intact nuclear staining PMS2 Positive, intact nuclear staining Interpretation: Labs: 09/11/23 WBC 6.95, Hgb 13.5, PLT 294, ANC 4.91. Ca 8.6, Glucose 145, Cr 1.0, BUN 13, T prot 7.4, Alb3.9, t bili 0.8, Alk phos 115, NA 140, Cl 102, K 4.1, AST 21, ALT 27 03/11/23 WBC 6.6 H/H 11.8/35.4 Plts 313 Na 137 K+ 4.3 BUN/Cr 18/1.1 Alk phos 82 AST 20 ALT 36 Glu 118 t bili 0.5 PSA not done 10/27/2022 BUN 17, creatinine 1.0, calcium 9.0, TB 0.4, AST 25, ALT 40, alkaline phosphatase 95 06/06/2022 BUN 14, creatinine 1.1, calcium 8.4, TB 0.5, AST 19, ALT 22, alkaline phosphatase 84, total protein 6.8, albumin 3.8, WBC 6.03, hemoglobin 11.5, platelet count 206 05/12/2022 sodium 137, potassium 4.1, BUN 22, creatinine 1.1, calcium 8.3, TB 0.7, AST 16, ALT 27, alkaline phosphatase 113, total protein 7.3, albumin 3.8, 02/28/2022 BUN 20, creatinine 1.2, calcium 8.9, TB 0.9, AST 15, ALT 25, alkaline phosphatase 75, albumin 4.1, total protein 7.3, WBC 9.02, hemoglobin 13, platelet count 355 01/31/2022 BUN 29, creatinine 1.2, TB 0.8, AST 19, ALT 26, alkaline phosphatase 83, total protein 7.6, albumin 4.5, WBC 10.2, hemoglobin 13.5, platelet count 265. PSA testosteron 09/11/23 pending pending 04/09/23 <0.01 12/2022 0.03 07/19/23 0.06 <7.0 04/25/22 0.08 <7.0 02/28/2022 0.90 <7.0 01/31/22 0.95 17 12/19/21 3.02 11/02/21 1.79 3.29 10/06/21 2.1 09/03/20 3.0 Imagin04/09/23 CT chest abdomen pelvis: Impression there is a stable CT abdomen appearance overall as compared to previous study. No interval abnormal nodule enlargement changes are appreciated. No interval thoracic metastatic changes are appreciated. 04/09/2023 bone scan: Impression: No evidence of bony metastasis identified. Antibiotic changes as above. Likely primary and secondary osteoarthritic changes in the right hip from prior fracture. 05/24/2022 CT abdomen pelvis result contrast: Impression: Bladder mass measuring somewhat smaller. Scattered colonic diverticuli. 12/19/21 PSMA PET scan: IMPRESSION 1. Abnormal tracer uptake involving the majority of the prostate gland extending to the seminal vesicles and on the right side appears to extend into the mesorectal space. 2. Subcentimeter tracer avid lymph nodes in the left obturator and left internal iliac regions and in the bilateral external iliac regions, consistent with rufina metastases. 3. No distant sites of metastasis. 10/27/21 pelvic MRI IMPRESSION Seminal vesicle involvement:Yes Lymphadenopathy:No Sphincter involvement:No Bladder involvement:Yes, along the right aspect of the bladder neck. Osseous metastases: No . MRI-derived Extraprostatic extension risk: Grade 3: 66.1% (Joel breach of prostate margin or invasion ofadjacent structures) Lesion 1 The entire prostate: PI-RADS 5. Clinically significant cancer is highly likely to be present. T2 location: axial series 9, image 22; sagittal series 8, image 23. 07/02/2021 CT scan abdomen pelvis: Impression Question punctate stone in the right distal ureter with mild hydro-. No inflammatory stranding. No hydronephrosis or hydroureter. Otherwise no acute intra-abdominal pelvic findings. Prostatomegaly Assessment and Plan: Diagnosis: Prostatic adenocarcinoma, grade 4, Jj 4+4, metastatic to regional lymph nodes Treatment: 12/27/21 degarelix 240 mg 01/31/22 switched to Lupron 22.5 mg every 3 months 02/23/22-May 2022 abiraterone and prednisone, abiraterone d/hernan. due to admission with kidney failure 09/21/22 completed radiation to pelvis/prostate Current treatment: continuous lupron therapy planned for 2-3 years Mr. Arreguin is a 58 y.o. gentleman with a diagnosis of prostate cancer. 12/27/21 PSMA PET scan revealed abnormal tracer uptake involving the majority of the prostate gland extending to the seminal vesicles and on the right side appears to extend into the mesorectal space.2 Subcentimeter tracer avid lymph nodes in the left obturator and left internal iliac regions and in the bilateral external iliac regions, consistent with rufina metastases. No distant sites of metastasis. I will refer Jeff to our radiation oncology for consideration of radiation to primary. Again I discussed benefits and risk of androgen deprivation with degarelix. Informed verbal consent was obtained. We will start treatment today. I will see him back in 4 weeks with blood work and for consideration of Lupron and discussion on secondary hormonal therapy with abiraterone and prednisone 01/31/22 Jeff tolerated first degarelix injection reasonably well with mild hot flashes and fatigue.We will switch him to Lupron 22.5 mg every 3 months. We discussed benefits and risks of abirateroneand prednisone. Based on STAMPEDE trial there was 10 months overall survival benefit compared to placebo in patient with regional lymph node disease combined with radiation and androgen deprivation therapy. Abirateron demonstrated improvement in median OS by 5 months compare with placebo. We discussed side effects of Abirateron including fatigue, joint swelling or iscomfort, edema, hot flush, diarrhea, vomiting, cough, hypertension, dyspnea, urinary tract infection, and contusion. The most common laboratory abnormalities included anemia, elevated alkaline phosphatase, hypertriglyceridemia, lymphopenia, hypercholesterolemia, hyperglycemia, elevated aspartate aminotransferase , hypophosphatemia, elevated alanine aminotransferase and hypokalemia. Grade 3-4 increases in ALT or AST occurred in 4 percent of patients treated with abiraterone acetate. Grade 3-4 cardiac failure occurred more commonly in patients treated with abiraterone acetate compared with those receiving placebo (1.6 percent vs. 0.2 percent). Adrenal insufficiency occurred in 0.5 percent of patients taking abiraterone acetate and in 0.2 percent of those receiving placebo All questions were answered to patient's satisfaction. He is interested to proceed with abirateroneand prednisone. Informed verbal consent was obtained. 04/25/2022 Jeff is compliant with abiraterone and prednisone tolerating well. Liver enzymes within normal range. PSA is pending today. Dr. Ernandez plans to start definitive radiation soon. He is due to Lupron today. We will continue current management. 06/06/2022. Jeff was admitted with diverticulitis, acute kidney failure with creatinine 4.1, he washydrated and completed course of antibiotics. Kidney function returned to normal. I am not certain if abiraterone/prednisone contributed to his dehydration and [place], but there is probability of that so we d/hernan abiraterone and prednsione. He will finish radiation therapy. We will see him back in 6 weeks with blood work, Lupron and consideration of enzalutamide. 07/18/22- Jeff returned today for his Lupron injection and to continue XRT. He is tolerating the Lupron well. Denies side effects. He did not have his labwork done and will go up to [facility] after his visit to have them done. 12/19/22 Jeff is not very compliant with his treatment. He missed his appointment for Lupron 3 monthsago. Overall, he feels well. He will have blood drawn for chemistry and PSA/testosterone checked after the visit. We will proceed with Lupron today. We will see him back in [address] chest abdomenpelvis, bone scan, blood work and Lupron injection. #Pain management: Follows with primary care provider. 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 03/13/23 he will have his lupron today. He will have re evaluation scans done on 03/19/23. I will call patient once I have results. He will discuss blood pressure medication with his PCP. He will make anappointment to have his eyes re evaluated. For now, he will return in 3 months with labs prior and for lupron. He will increase his calcium supplement. 06/12/[address] and bone scan no evidence of metastatic disease. Clinically, he is doing well. We will continue Lupron for total of 2-3 years. 09/11/23 PSA is pending. He c/o more noticeable lower pelvic discomfort over the past 2-3 months which is new. No palpable inguinal lymphadenopathy. Will check restaging CT and bone scan and f/u with MD in 1 month. #Hot flashes: improved on venlafaxine #Low pelvic discomfort: will check restaging CT and bone scan Plan: 1. Continue lupron 22.5 mg every 3 months due today 2. Restaging CT and bone scan 2. Next visit in 1 month with CBC, CMP, PSA, testosterone and CT and bone scan prior to visit. Isabel Berry APRN Mr. Arreguin voiced understanding of the plan and was given an opportunity to ask questions which I answered to the best of my ability. understands he can call the clinic between visits with any questions/concerns or new symptoms. 30 minutes were spent on date of visit, including non-face to face time including consultation withDr. Ibrahim regarding the plan of care. documented in this encounter Plan of Treatment Upcoming Encounters Date Type Department Care Team (Latest Contact Info) Description 08/05/2024 11:30 AM EST Office Visit Hematology/Oncolog y at [address] [phone] Deyvi Ibrahim MD [facility] [address] [place] [address] Isabel Berry APRN [facility] [place] [address] 08/05/2024 12:00 PM EST Infusion Hematology Oncology at [address] [phone] 08/27/2024 10:00 AM EST Hospital [place] [phone] Gulshan Elder MD [facility] [place] [address] 08/27/2024 10:00 AM EST Anesthesia [place] [phone] Swati Gonzalez MD [facility] [place] [address] 08/27/2024 10:00 AM EST - 08/27/2024 11:00 AM EST [place] [phone] Gulshan Elder MD [facility] [place] [address] EGD, UPPER GI ENDOSCOPY (WRVU 2.09) Scheduled [...] documented as of this encounter Visit Diagnoses Diagnosis Malignant neoplasm of prostate Prostate cancer metastatic to intrapelvic lymph node Abnormal CT of the abdomen Nonspecific (abnormal) findings on radiological and other examination of abdominal area, including retroperitoneum Esophagitis Esophagitis, unspecified Gastroesophageal reflux disease with esophagitis, unspecified whether hemorrhage Colitis Other and unspecified noninfectious gastroenteritis and colitis Screen for colon cancer Special screening for malignant neoplasms, colon documented in this encounter Care Teams Top Carrier Relationship Specialty Start Date End Date Yoni Ramírez MD [address] [place] [id number] PCP - General 07/05/10 documented as of this encounter
--- OUTSIDE RECORDS SUMMARY | 2024-07-31 18:40 | XMS_ITS | Encounter Summary ---
Author Organization Formerly [facility], [address] [facility] [place] [address] Care Team Providers Care Power Chisel Operator Name Role Phone Yoni Ramírez MD Primary Care Provider Reason for Visit * Consultation (Routine) - Closed Specialty Diagnoses / Procedures Referred By Contac t Referred To Contact Gastroenterology Diagnoses Malignant neoplasm of prostate Dysuria CT scan 11/06/23 showed thickening in esophagus and possible changes consistent with coltiits, patient reports GERD and occasional diarrhea Isabel Berry APRN [facility] [place] [address] [facility] [place] [place] [address] [address] Referral ID Status Reason Start Date Expiration Date V isits Requested Visits Authorized [id number] Closed Consult, Test & Treat 01/21/2024 01/20/2025 1 1 Encounter Details Date Type Department Care Team (Latest Contact Info) Description 03/11/2024 2:00 PM EDT TH Visit (TeleHealth) [place] [phone] Danelle Faustin PA [facility] [place] [address] of the abdomen; Esophagitis; Gastroesophageal reflux disease with esophagitis, unspecified whether hemorrhage; Colitis; Screen for colon cancer; Cyclic vomiting syndrome Social History Tobacco Use Types Packs/Day Years [...] place to sleep or slept in a group home (including now)? No 04/13/2022 Sex and Gender Information Value Date Recorded Sex Assigned at Not on file Gender Identity Not on file Sexual Orientation Not on file documented as of this encounter Patient Instructions * Patient Instructions* Danelle Faustin PA - 03/11/2024 2:00 PM EDT Endoscopy + Colonoscopy in the next 3 months at your convenience - For [facility] procedure scheduling please call [phone]. - If you choose to do this procedure locally, your PCP will need to order/coordinate this for you. If you do this procedure locally, please let us know when completed so we can request results - Schedule follow-up clinic visit with me (either in-person or telemedicine) about 2-4 weeks after this procedure to review results. What is Cyclic Vomiting Syndrome (CVS)? CVS is chronic disorder characterized by intermittent episodes of severe nausea and vomiting (and abdominal pain in some patients) The episodes typically last 1-5 days and are followed by prolonged periods without symptoms CVS can be associated with menses (periods), migraine headaches, diabetes mellitus, , and IBS Patients may have an ???awareness?? or ???aura?? indicating an impending (approaching) episode CVS is a functional gut disorder - the gut is structurally/anatomically normal but is not functioning properly due to abnormalities in the enteric (gut) nervous system and the central nervous system (brain and spinal cord) The exact cause of CVS is unclear but we suspect it is caused by a combination of a genetic factors, changes to the gut microbiota (intestinal bacteria) and environmental triggers. How common are these disorders and what is the impact? CVS is considered to be a rare disorder but is increasingly recognized as a cause for chronic nausea and vomiting This disorder can have a significant impact on quality of life Unpredictability and severity of episodes can affect patients' ability to do the things that are important in their lives Untreated CVS patients often require frequent presentations to the Emergency department What is the prognosis and overall treatment goals? CVS is unfortunately a chronic disorder with no known cure Symptoms may gradually resolve is a small proportion of patients but buttermaker helper symptoms are expected in most patients. Ultimately we hope that you are able to achieve prolonged periods of stability with a decrease in the frequency and severity of episodes We believe the most important treatment goal is to help you improve your overall quality of life. This goal is typically achieved by increasing your understanding of this disorder and developing coping and management skills. Remember, for most patients complete resolution of all symptoms is NOT a realistic goal. Are there any factors that predict poor response to treatment? Yes, medical studies have shown that patients with certain risk factors often have refractory symptoms. This includes the following: Poorly controlled anxiety and depression Poorly controlled irritable bowel syndrome Poorly controlled migraine headaches Chronic opioid usage Chronic cannabis usage If any of these factors apply to you it is unlikely your CVS will be improve without addressing them. What are general measures for CVS? Several lifestyle and dietary factors can increase the frequency and severity of CVS episodes These lifestyle factors include the following: Inadequate sleep Prolonged fasting Dehydration Stress Depression/anxiety Some patients are able to identity dietary triggers for episodes such as the following: Chocolate Cheese Wine Monosodium glutamate (MSG) What are options for ???Supportive Therapy?? ? (I.e. therapies that help you get through an episode) Several medication options exist for supportive therapies. Anti-emetic medications Anti-histamine medications Neuromodulator medications Also consider non-medical therapies such as relaxing or sleeping in a quiet dark room if possible Patients should seek care in the Emergency department if they are unable to control their symptoms and/or become dehydrated. What are options for ???Prophylactic Therapy?? ? (I.e. therapies that can help to prevent an episode) These measures are generally considered to be the most important area of treatment as the main goalis to decrease the frequency of episodes: Herbal/non-medical options to prevent episodes such as the following: Carefully following general measures for CVS Avoiding dietary triggers L-carnitine, riboflavin or coenzyme Q10 supplements have been shown to help manage symptoms (take daily as directed) In general Rx medications fall into one of the following categories: Anti-depressant medications like amitriptyline (Elavil) or mirtazapine (Remeron) What about Cannabis? Many patients ask about the role of medical cannabis (marijuana). Some patients have reported benefit of CVS symptoms with cannabis. However, potential benefits of cannabis for CVS have not been well studied in the medical literature. In the contrary, medical studies have convincingly shown that cannabis may actually worsen symptomsin some patients with CVS. At this point we generally do NOT recommend using medical cannabis to treat CVS. Patient resources Cyclic Vomiting Syndrome Association (CVSA http://cvsaonline.org/) References Bharathi T et al. Guidelines on management of cyclic vomiting syndrome in adults by the [place] Neurogastroenterology and Motility Society and the Cyclic Vomiting Syndrome Association. Neruogastroenterology & Motility. 2019;31(Suppl. 2):g02313 documented in this encounter Progress Notes * Danelle Faustin PA - 03/11/2024 2:00 PM EDT Adult Gastroenterology New Patient Note Patient: Jeff Arreguin : 1965 Date of Service: 03/11/2024 Referring Provider: Isabel Berry Primary Care Provider: Yoni Ramírez MD HPI History of present illness provided by patient and per personal review of EMR. Jeff Arreguin is a 58 y.o. male with a PMH significant for HTN, anxiety, prostate cancer, and a PSH including CCY. He is referred to GI clinic for evaluation of abnormal CT imaging. 10/2023 CT suggestive of esophagitis/colitis. Bad stomach at baseline. Nausea. He reports he has cyclic vomiting syndrome diagnosis. Vomiting episodes are sporadic - can have daily sx for weeks then will go months without sx. Can have vomiting with blood. GERD in the past. Not an issue for the past 2 months. Sleeps elevated. Irregular bowel habits - Lupron causing constipation. Miralax. As needed. Colonoscopy due this year (5 year recall, small finding in colon pre patient) Father with colon problems, unclear details. Mother with ovarian cancer, strong on that side of the family. Former cigarette smoker, denies tobacco use Does use marijuana regularly. Medications Tried: Zofran PRN for nausea Pantoprazole for GERD (not currently) Prior Testin10/2023 CT - esophagitis, colitis. Subjective Past Medical History: Diagnosis Date Arthritis Chronic anxiety Hypertension Patient Active Problem List Diagnosis Date Noted Depression 07/18/2022 Chondromalacia of right patella 07/18/2022 Hyperlipidemia 07/18/2022 Nicotine dependence 07/18/2022 Obstruction of bile duct 07/18/2022 Retention of urine 07/18/2022 Ulcer of esophagus 07/18/2022 Benign neoplasm of rectum 07/18/2022 Malignant neoplasm of prostate 11/02/2021 Hyperparathyroidism 09/04/2017 Chronic prescription opiate use 08/30/2017 Obesity (BMI 30.0-34.9) 08/30/2017 Hypertension 08/22/2013 OA (osteoarthritis) 08/22/2013 S/P cholecystectomy 08/22/2013 Nausea & vomiting 08/22/2013 Leukocytosis 08/22/2013 Current Outpatient Medications Medication Sig Dispense Refill hydroCHLOROthiazide (HydroDiuril) 25 mg tablet Take 1 tablet by mouth Daily at Noon. venlafaxine XR (Effexor-XR) 37.5 mg ER 24 hr capsule Take 1 capsule by mouth daily. 30 capsule 11 metoprolol succinate XL (Toprol-XL) 100 mg ER 24 hr tablet Take 100 mg by mouth daily. amitriptyline (Elavil) 10 mg Tablet 25 mg. cloNIDine (Catapres) 0.1 mg Tablet Take 0.2 mg by mouth 2 times daily. HYDROmorphone (Dilaudid) 4 mg Tablet Take 4 mg by mouth 4 times daily. aspirin EC 81 mg Tablet, Delayed Release (E.C.) Take 1 tablet by mouth every evening. 30 tablet 3 tamsulosin (Flomax) 0.4 mg Capsule 0.4 mg nightly. prochlorperazine (Compazine) [address] 25 mg rectally every 12 hours as needed. potassium chloride (K-Tab) 20 mEq Tablet Sustained Release daily as needed. naloxone (Narcan) 4 mg/actuation [place], Non-Aerosol Narcan 4 mg/actuation nasal spray Take 1 spray as needed by nasal route. atorvastatin (Lipitor) 20 mg Tablet TAKE ONE TABLET BY MOUTH EVERY EVENING acetaminophen (TYLENOL) 500 mg Tablet Take 2 tablets by mouth every 6 hours as needed for Pain. (Patient not taking: Reported on 01/21/2024) ondansetron (ZOFRAN-ODT) 4 mg Tablet, Rapid Dissolve Take 4 mg by mouth every 8 hours as needed forNausea. No current facility-administered medications for this visit. Allergies Allergen Reactions Ephedrine Anxiety Suboxone [Buprenorphine-Naloxone] Hives Diphenhydramine Other Reaction(s): hyperactivity Lexapro [Escitalopram] Hives [place] odd family history includes Coronary Artery Disease in his father; Ovarian Cancer in his mother and sister; Type 2 Diabetes in his father. Social History Tobacco Use Smoking status: Former Current packs/day: 0.00 Average packs/day: 1 pack/day for 25.0 years (25.0 ttl pk-yrs) Types: Cigarettes Start date: 02/10/1987 Quit date: 02/11/2012 Years since quittin.0 Smokeless tobacco: Never Vaping Use Vaping status: Never Used Substance Use Topics Alcohol use: Not Currently Drug use: Yes Types: Marijuana Comment: 2 hits a day Review of Systems I have reviewed 10+ systems with the patient. ROS is negative except for findings above and what ismentioned in HPI. Objective Physical Exam Constitutional: General: He is not in acute distress. Appearance: Normal appearance. He is normal weight. HENT: Head: Normocephalic and atraumatic. Nose: Nose normal. Eyes: Extraocular Movements: Extraocular movements intact. Pulmonary: Effort: Pulmonary effort is normal. Skin: Coloration: Skin is not jaundiced. Neurological: General: No focal deficit present. Mental Status: He is alert and oriented to person, place, and time. Psychiatric: Mood and Affect: Mood normal. Behavior: Behavior normal. There were no vitals taken for this visit. Wt Readings from Last 3 Encounters: 01/21/24 116.6 kg (257 lb) 09/11/23 114.8 kg (253 lb) 06/12/23 107 kg (236 lb) There is no height or weight on file to calculate BMI. Laboratory results: CBC: Lab Results Component Value Date WBC 9.2 12/19/2021 HGB 14.4 12/19/2021 HCT 42.6 12/19/2021 PLATELET 310 12/19/2021 LFTs: Lab Results Component Value Date ALKPHOS 84 12/19/2021 BILITOT 1.0 12/19/2021 BILIDIR 0.3 03/27/2014 PROT 7.2 12/19/2021 ALBUMIN 4.8 12/19/2021 ALT 11 12/19/2021 AST 14 12/19/2021 LIPASE: Lab Results Component Value Date LIPASE 21 03/27/2014 IRON STUDIES: No results found for: IRON, TIBC, FERRITIN Vitamin Studies: No results found for: [id number], VITAMIND A1c:No results found for: HA1C Thyroid: Lab Results Component Value Date TSH 1.08 05/21/2017 Celiac Studies: No results found for: TTGIGAAB, TTGIGAMAYO, TTGIGG, IGA, RONI, CRP Stool Studies: No results found for: FECALFATQUAL, CALPROTECTIN, STOOLCX, OVAPARA, HPYLORISTLAG, HPSA, GIARDIA, CAMPYAG, CDIFFTOXIN, CDIFFAG, CDIFFTOX, CDIFFPCRI, CRSPAG, SHIGATOXIN [facility] Affiliated Radiographic studies: No results found. [facility] Endoscopic/GI Studies: N/A OSH Studies: 10/2023 CT C/A/P W: Marked decrease in size of prostate gland with radiation seeds seen. Diffuse thickening of the wall of the urinary bladder. Mild thickening of the wall of the distal esophagus which may be due to underdistention, esophagitis, neoplasm. Mild inflammation around the proximal sigmoid colon which may represent colitis. Assessment & Plan 1. Abnormal CT of the abdomen 2. Esophagitis 3. Gastroesophageal reflux disease with esophagitis, unspecified whether hemorrhage 4. Colitis 5. Screen for colon cancer 6. Cyclic vomiting syndrome Patient is a 58 y.o. male presenting to GI clinic for evaluation of the above. He is well-appearing. Recently found to have evidence of nonspecific esophagitis and colitis on 10/2023 CT scan during workup of newly diagnosed prostate cancer. He is due for screening colonoscopy. Has not had EGD. He does report history of GERD, though currently under control with sleeping with elevated HOB. He reports irregular bowel habits secondary to medications (currently mild constipation in setting of Lupron use, controlled with MiraLAX as needed). He also notes that he carries a diagnosis of cyclic vomiting syndrome at baseline, can have flares of vomiting episodes lasting for days to weeks with long periods without vomiting in between. 1. Abnormal CT of the abdomen 2. Esophagitis 3. Gastroesophageal reflux disease with esophagitis, unspecified whether hemorrhage EGD to evaluate abnormal esophagus findings in setting of hx GERD. 4. Colitis 5. Screen for colon cancer Colon cancer screening will also serve for evaluation of abnormal colon findings on CT. Discussed details of scope procedure as well as risks including bleeding, infection, perforation. Patient verbalized understanding and is agreeable to proceeding. 6. Cyclic vomiting syndrome Diagnosis counseling provided. We discussed that chronic marijuana use is thought to be a risk factor/cause of CVS episodes and we would recommend cessation if possible. Otherwise, he does have antiemetics to use PRN and is also noted to be on TCA for neuromodulation. We did discuss that supplements (coenzyme Q 10, L-carnitine) can be used for CVS symptom management as well. Handout provided in AVS for patient review. Orders Placed This Encounter Procedures ENDOSCOPY CASE REQUEST: EGD, UPPER GI ENDOSCOPY (WRVU 2.09), COLONOSCOPY, DIAGNOSTIC (WRVU 3.26) Patient voiced appropriate questions and concerns which were addressed to their satisfaction. Patient verbalized understanding and agrees with plan as outlined above. They understand to contact GI clinic with further questions, or if they develop new/worsening GI symptoms. Follow up after scopes to review results. I have spent 20 minutes with this patient, with >50% of that time spent counseling patient on above stated issues. In addition to direct face to face time, I have personally spent 15 minutes precharting, reviewing patient's interim medical history, coordinating care, and completing documentation on day of encounter for a total time of 35 minutes. BLACK Beltran documented in this encounter Plan of Treatment Upcoming Encounters Date Type Department Care Team (Latest Contact Info) Description 08/05/2024 11:30 AM EST Office Visit Hematology/Oncolog y at [address] [phone] Deyvi Ibrahim MD [facility] DR HEMATOLOGY [place] [address] Isabel Berry APRN [facility] [place] [address] 08/05/2024 12:00 PM EST Infusion Hematology Oncology at [address] [phone] 08/27/2024 10:00 AM EST Hospital Encounter [place] [phone] Gulshan Elder MD [facility] [place] [address] 08/27/2024 10:00 AM EST Anesthesia [place] [phone] Swati Gonzalez MD [facility] DR [place] [address] 08/27/2024 10:00 AM EST - 08/27/2024 11:00 AM EST Surgery [place] [phone] Gulshan Elder MD [facility] [place] [address] EGD, UPPER GI ENDOSCOPY (WRVU 2.09) Scheduled Orders Name Type Priority Associated Diagnoses Orde r Schedule ENDOSCOPY CASE REQUEST: EGD, UPPER GI ENDOSCOPY (WRVU 2.09), COLONOSCOPY, DIAGNOSTIC (WRVU 3.26) Procedures Routine Abnormal CT of the abdomen Esophagitis Gastroesophageal reflux disease with esophagitis, unspecified whether hemorrhage Colitis Screen for colon cancer Ordered: 03/11/2024 Scheduled Procedures Name Priority Associated Diagnoses Date/Ti [...] as of this encounter Visit Diagnoses Diagnosis Abnormal CT of the abdomen Nonspecific (abnormal) findings on radiological and other examination of abdominal area, including retroperitoneum Esophagitis Esophagitis, unspecified Gastroesophageal reflux disease with esophagitis, unspecified whether hemorrhage Colitis Other and unspecified noninfectious gastroenteritis and colitis Screen for colon cancer Special screening for malignant neoplasms, colon Cyclic vomiting syndrome Persistent vomiting Abnormal CT of the abdomen Nonspecific (abnormal) findings on radiological and other examination of abdominal area, including retroperitoneum Esophagitis Esophagitis, unspecified Gastroesophageal reflux disease with esophagitis, unspecified whether hemorrhage Colitis Other and unspecified noninfectious gastroenteritis and colitis Screen for colon cancer Special screening for malignant neoplasms, colon documented in this encounter Care Teams Power Chisel Operator Relationship Specialty Start Date End Date Yoni Ramírez MD [address] [place] [id number] PCP - General 07/05/10 documented as of this encounter
--- OUTSIDE RECORDS SUMMARY | 2024-07-31 18:40 | XMS_ITS | Encounter Summary ---
Author Organization [facility] Address [facility] [place] [address] Care Team Providers Care Job Captain Name Role Phone Yoni Ramírez MD Primary Care Provider [phone] Encounter Details Date Type Department Care Team (Latest Contact Info) Description 06/12/2023 Travel Social History Tobacco Use Types Packs/Day [...] place to sleep or slept in a [facility]cc (including now)? No 04/13/2022 Sex and Gender Information Value Date Recorded Sex Assigned at Not on file Gender Identity Not on file Sexual Orientation Not on file documented as of this encounter Plan of Treatment Upcoming Encounters Date Type Department Care Team (Latest Contact Info) Description 08/05/2024 11:30 AM EST Office Visit Hematology/Oncolog y at [address] [phone] Deyvi Ibrahim MD [facility] DR HEMATOLOGY [place] [address] Isabel Berry APRN [facility] [place] [address] 08/05/2024 12:00 PM EST Infusion Hematology Oncology at [address] [phone] 08/27/2024 10:00 AM EST Hospital Encounter [place] [phone] Gulshan Elder MD [facility] [place] [address] 08/27/2024 10:00 AM EST Anesthesia Event [place] [phone] Swati Gonzalez MD [facility] [place] [address] 08/27/2024 10:00 AM EST - 08/27/2024 11:00 AM EST Surgery [place] [phone] Gulshan Elder MD [facility] [place] [address] EGD, UPPER GI ENDOSCOPY (WRVU 2.09) Scheduled Procedures Name Priority Associated Diagnoses Date/Ti nh EGD, UPPER GI ENDOSCOPY (WRVU 2.09) Abnormal [...] on filedocumented in this encounter Care Teams Job Captain Relationship Specialty Start Date End Date Yoni Ramírez MD [address] [place] [id number] PCP - General 07/05/10 documented as of this encounter
--- OUTSIDE RECORDS SUMMARY | 2024-07-31 18:40 | XMS_ITS | Encounter Summary ---
Author Organization [facility] [place] [address] Care Team Providers Care Calender Machine Operator Name Role Phone Yoni Ramírez MD Primary Care Provider [phone] Reason for Visit * Reason Comments Injections * Treatment/Therapy Plan Authorization (Routine) - Authorized Specialty Diagnoses / Procedures Referred By Contac t Referred To Contact Hematology and Oncology Diagnoses Malignant neoplasm of prostate Procedures TC LEUPROLIDE ACETATE 7.5MG, FOR DEPOST SUSPENSION (LUPRON DEPOT) [id number] LUPRON DEPOT Deyvi Ibrahim MD [address] [place] [address] [place] [address] Deyvi Ibrahim MD [address] [place] [address] DR [place] [address] Referral ID Status Reason Start Date Expiration Date V isits Requested Visits Authorized [id number] Authorized 08/13/2022 03/12/2024 99 99 Encounter Details Date Type Department Care Team (Late st Contact Info) Description 01/21/2024 2:30 PM EDT Infusion Hematology Oncology at [address] [phone] Malignant neoplasm of prostate Social History Tobacco Use Types Packs/Day Years [...] place to sleep or slept in a alf (including now)? No 04/13/2022 Sex and Gender Information Value Date Recorded Sex Assigned at Not on file Gender Identity Not on file Sexual Orientation Not on file documented as of this encounter Progress Notes * Yesenia Comer, RN - 01/21/2024 2:30 PM EDT Infusion Note Diagnosis:Prostate Cancer Treatment: Lupron Injection left gluteal Patient instructed on side effects of Lupron. Patient states understanding of teaching, Patient aware to call clinic with any questions or concerns. Plan: Return to clinic as scheduled. documented in this encounter Plan of Treatment Upcoming Encounters Date Type Department Care Team (Latest Contact Info) Description 08/05/2024 11:30 AM EST Office Visit Hematology/Oncolog y at [address] [phone] Deyvi Ibrahim MD [facility] [place] [address] Isabel Berry APRN [facility] [place] [address] 08/05/2024 12:00 PM EST Infusion Hematology Oncology at [address] [phone] 08/27/2024 10:00 AM EST Hospital Encounter [place] [phone] Gulshan Elder MD [facility] [place] [address] 08/27/2024 10:00 AM EST Anesthesia [place] [phone] Swati Gonzalez MD [facility] [place] [address] 08/27/2024 10:00 AM EST - 08/27/2024 11:00 AM EST [place] [phone] Gulshan Elder MD [facility] [place] [address] EGD, UPPER GI ENDOSCOPY (WRVU 2.09) Scheduled [...] Visit Diagnoses Diagnosis Malignant neoplasm of prostate Abnormal CT of the abdomen Nonspecific (abnormal) findings on radiological and other examination of abdominal area, including retroperitoneum Esophagitis Esophagitis, unspecified Gastroesophageal reflux disease with esophagitis, unspecified whether hemorrhage Colitis Other and unspecified noninfectious gastroenteritis and colitis Screen for colon cancer Special screening for malignant neoplasms, colon documented in this encounter Administered Medications Inactive Administered Medications - up to 3 most recent administrations Medication Order MAR Action Action Date Dose Rate Site leuprolide (Lupron Depot) 22.5 mg (3 month) intramuscular syringe kit 22.5 mg 22.5 mg, Intramuscular, ONCE, 1 dose, On Sun01/21/24 at 1515, Last injection site was... leuprolide IM injection site: L Gluteal (06/12/2023 3:59 PM), Routine, This agent is restricted to outpatient use. Is this drug being given as an outpatient? Yes Given 01/21/2024 2:52 PM EDT 22.5 mg Left Gluteal documented in this encounter Care Teams Calender Machine Operator Relationship Specialty Start Date End Date Yoni Ramírez MD [address] [place] [id number] PCP - General 07/05/10 documented as of this encounter
--- OUTSIDE RECORDS SUMMARY | 2024-07-31 18:40 | XMS_ITS | Encounter Summary ---
Author Organization [facility]ly [facility] [place] [address] Care Team Providers Care Handle Turner Name Role Phone Yoni Ramírez MD Primary Care Provider Encounter Details Date Type Department Care Team (Late st Contact Info) Description 04/15/2024 2:00 PM EDT Office Visit Hematology/Oncology at [address] [phone] Rosie Terry APRN [facility] [place] [address] Malignant neoplasm of prostate; Dysuria; Androgen deprivation therapy Social History Tobacco Use Types Packs/Day Years [...] place to sleep or slept in a correction (including now)? No 04/13/2022 Sex and Gender [...] Mass Index 36.69 04/15/2024 1:45 PM EDT documented in this encounter Progress Notes * Rosie Terry APRN - 04/15/2024 2:00 PM EDT Images from the original note were not included. 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 His treatment history is below. Interval history:Jeff Arreguin is in clinic for follow-up on prostate cancer, metastatic to the LN. Overall he is doing well. Hot flashes are improved on venlafaxine. Reports dysuria x 6-7 months and is scheduled to see Urology next month. Denies hematuria. Nocturia stable 2-3x per night. No bone pain. He has low pelvic discomfort which is stable and occasional diarrhea and has seen GI and has EGDand colonoscopy to be scheduled sometimes oon. He has a history of GERD. He has occasional breast pain secondary to the lupron, denies any lumps. The remainder of his review of systems [...] cancer Allergies: Allergies Allergen Reactions Ephedrine Anxiety Diphenhydramine Other Reaction(s): hyperactivity Lexapro [Escitalopram] Hives [place] odd, Moderate nausea Suboxone [Buprenorphine-Naloxone] Hives Trintellix [Vortioxetine] Medications: Your Medications Accurate as of April 15, 2024 2:47 PM. If you have any questions, ask your nurse or doctor. Continued medications with new dosing Dose Details venlafaxine XR 37.5 mg ER 24 hr capsule Commonly known as: Effexor-XR Take 1 capsule by mouth daily. What changed: how much to take 37.5 mg Quantity: 30 capsule Refills: 11 Continued medications, unchanged Dose Details acetaminophen 500 mg tablet Commonly known as: Tylenol Take 2 tablets by mouth every 6 hours as needed for Pain. 1,000 mg Refills: 0 amitriptyline 10 mg tablet Commonly known as: Elavil Take 25 mg by mouth 2 times daily. 25 mg Refills: 0 aspirin EC 81 mg EC (DR) tablet Take 1 tablet by mouth every evening. 81 mg Quantity: 30 tablet Refills: 3 atorvastatin 20 mg tablet Commonly known as: Lipitor TAKE ONE TABLET BY MOUTH EVERY EVENING Refills: 0 CeleBREX 200 mg capsule Take 200 mg by mouth as needed for Pain. Daily prn pain Generic drug: celecoxib 200 mg Refills: 0 cloNIDine 0.1 mg tablet Commonly known as: Catapres Take 0.2 mg by mouth 2 times daily. 0.2 mg Refills: 0 hydroCHLOROthiazide 25 mg tablet Commonly known as: HydroDiuril Take 1 tablet by mouth Daily at Noon. 1 tablet Refills: 0 HYDROmorphone 4 mg tablet Commonly known as: Dilaudid Take 4 mg by mouth 4 times daily. 4 mg Refills: 0 metoprolol succinate XL 100 mg ER 24 hr tablet Commonly known as: Toprol-XL Take 100 mg by mouth daily. 100 mg Refills: 0 naloxone 4 mg/actuation nasal spray Commonly known as: Narcan Narcan 4 mg/actuation nasal spray Take 1 spray as needed by nasal route. Refills: 0 ondansetron ODT 4 mg disintegrating tablet Commonly known as: Zofran-ODT Take 4 mg by mouth every 8 hours as needed for Nausea. 4 mg Refills: 0 potassium chloride 20 mEq ER tablet Commonly known as: Klor-Con, K-Tab daily as needed. Refills: 0 prochlorperazine 25 mg rectal suppository Commonly known as: Compazine Place 25 mg rectally every 12 hours as needed. 25 mg Refills: 0 semaglutide 0.25 mg or 0.5 mg (2 mg/3 mL) Pen Injector Commonly known as: Ozempic Inject 0.5 mg subcutaneously once a week. 0.5 mg Refills: 0 tamsulosin 0.4 mg capsule Commonly known as: Flomax 0.4 mg nightly. Take 2 capsules qhs 0.4 mg Refills: 0 torsemide 10 mg tablet Commonly known as: Demadex Take 5 mg by mouth daily. 5 mg Refills: 0 Review of Systems: As in interval history PE: General: AAAx3, in NAD Head: Normocephalic, without obvious abnormality, atraumatic Neck: No adenopathy Lungs: Clear to auscultation bilaterally, respirations unlabored Heart: RRR Abdomen: Soft, non-tender, bowel sounds active all four quadrants, no masses, no organomegaly. There is no appreciable ascites Extremities: BLE swelling is mild, chronic and stable. No inguinal lymphadenopathy. Skin: No rash Lymph nodes: Cervical, supraclavicular, and axillary nodes normal Breasts: There are no masses, erythema, edema, discharge, or lesions bilaterally in the breasts. Noaxillary lymphadenopathy. Pt reports very mild tenderness to nipples bilaterally. Vitals BP 149/85 (Patient Position: Sitting) Pulse 54 Temp 36.3 ??C (97.3 ??F) (Temporal) Resp 20 Ht 174.6 cm (5' 8.74) Wt 111.9 kg (246 lb 9.6 oz) SpO2 100% BMI 36.69 kg/m?? Pathology: 170 gene panel:TMPRSS2, ERG TMPRSS2- ERG fusion transcript 10/20/21 Bladder neck tumor and prostatic tissue, transurethral resection: Prostatic adenocarcinoma, grade group 4, [place] grade 4+4, involving 100% of the submitted tissue. INTERPRETATION Block Antibody Result (Positive/Negative) A-1 MLH1 Positive, intact nuclear staining MSH2 Positive, intact nuclear staining MSH6 Positive, intact nuclear staining PMS2 Positive, intact nuclear staining Interpretation: Labs: 04/15/24 WBC 9.1, Hgb 13.7, PLT 327, ANC 7.18. Ca 9.0, Glucose 128, Cr 1.1, BUN 10, T prot 7.0, Alb 3.4, t bili 0.54, Alk phos 110, NA 138, Cl , K 4.3, AST 17, ALT 25 01/21/24 WBC 7.87, Hgb 13.9, PLT 267, ANC 5.49. Ca 8.7, Glucose 129, Cr 1.3, BUN 18, T prot 7.5, Alb4.1, t bili 0.7, Alk phos 111, NA 140, Cl 103, K 4.3, AST 19, ALT 30 09/11/23 WBC 6.95, Hgb 13.5, PLT 294, [...] hemoglobin 13.5, platelet count 265. PSA testosteron 04/15/24 pending 01/21/24 pending pending 09/11/23 <0.01 10 04/09/23 <0.01 12/2022 0.03 07/19/23 0.06 <7.0 04/25/22 0.08 <7.0 02/28/2022 0.90 <7.0 01/31/22 0.95 17 12/19/21 3.02 11/02/21 1.79 3.29 10/06/21 2.1 09/03/20 3.0 Imagin11/06/23 Bone scan no evidence of bony metastatic disease 11/06/23 CT CAP 04/09/23 CT chest abdomen pelvis: Impression there is [...] mass measuring somewhat smaller. Scattered colonic diverticuli. 5/9/22 PSMA PET scan: IMPRESSION 1. Abnormal tracer [...] and Plan: Diagnosis: Prostatic adenocarcinoma, grade 4, [place] 4+4, metastatic to regional lymph nodes Treatment: 12/27/21 degarelix 240 mg 01/31/22 switched to Lupron 22.5 mg every 3 months 02/23/22-May 2022 abiraterone and prednisone, abiraterone d/hernan. due to admission with kidney failure 09/21/22 completed radiation to pelvis/prostate 01/31/22 to present: continuous lupron therapy planned for 2-3 years [...] labwork done and will go up to [facility] after his visit to have them done. [...] primary care provider. 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 03/13/23 he will have his lupron [...] and f/u with MD in 1 month. 01/21/24 Jeff is here today for lupron. He has not been compliant with lupron and last injection was09/11/23. He had restaging scans 11/06/23 and never followed up to review results. We reviewed these today and results showed no evidence of metastatic disease, there was incidental findings including thickening of the esophagus and bladder wall as well as changes in the colon consistent with colitis. We reviewed these results today and I recommended he see Urology and Gastroenterology. Discussed maintaining compliance with lupron q 3 months. 04/15/24 PSA is pending. Continues lupron q 3 months which he is tolerating other than hot flashes. Mild breast tenderness improved and exam is negative for any dominant mass or lesions. #Hot flashes: improved on venlafaxine #B. Breast tenderness: likely secondary to lupron, breast exam negative for any dominant mass or suspicious lesions today #Thickening of bladder seen on CT 11/06/23: Pt also reports dysuria x 6-7 months. He will see Urology, Dr. Butler next month. #Inflammation of colon, ?colitis seen on Ct 11/06/23: Pt also reports occasional diarrhea. Has seen Gi and will have EGD/colonscopy STS. #Thickening of esophagus on CT 11/06/23: Pt also reports symptoms of GERD. Has seen GI and EGD to beperformed sometime soon. Plan: 1. Continue lupron 22.5 mg every 3 months 2. Next visit in 3 months with CBC, CMP, PSA, and lupron same day Rosie Terry APRN 30 minutes were spent on date of visit, including non-face to face time including consultation withDr. Ibrahim regarding the plan of care. documented in this encounter Miscellaneous Notes * Addendum Note - Rosie Terry APRN - 04/15/2024 2:00 PM EDTAddended by: ROSIE TERRY on: 04/16/2024 11:43 AM Modules accepted: Orders documented in this encounter Plan of Treatment Upcoming Encounters Date Type Department Care Team (Latest Contact Info) Description 08/05/2024 11:30 AM EST Office Visit Hematology/Oncolog y at [address] [phone] Deyvi Ibrahim MD [facility] [place] [address] Rosie Terry APRN [facility] [place] [address] 08/05/2024 12:00 PM EST Infusion Hematology Oncology at [address] [phone] 08/27/2024 10:00 AM EST Hospital Encounter [place] [phone] Gulshan Elder MD [facility] [place] [address] 08/27/2024 10:00 AM EST Anesthesia [place] [phone] Swati Gonzalez MD [facility] [place] [address] 08/27/2024 10:00 AM EST - 08/27/2024 11:00 AM EST Surgery [place] [phone] Gulshan Elder MD [facility] [address] EGD, UPPER GI ENDOSCOPY (WRVU 2.09) Scheduled Orders Name Type Priority Associated Diagnoses Orde r Schedule Testosterone, total Lab Routine Malignant neoplasm of prostate Dysuria Androgen deprivation therapy Every 3 months for 4 Occurrences starting 04/16/2024 until 04/16/2025 PSA (Ultrasensitive) Lab Routine Malignant neoplasm of prostate Dysuria Androgen deprivation therapy Every 3 months for 4 Occurrences starting 04/16/2024 until 04/16/2025 Comprehensive metabolic panel Non-fasting Lab Routine Malignant neoplasm of prostate Dysuria Androgen deprivation therapy Every 3 months for 4 Occurrences starting 04/16/2024 until 04/16/2025 CBC (with Diff) Lab Routine Malignant neoplasm of prostate Dysuria Androgen deprivation therapy Every 3 months for 4 Occurrences starting 04/16/2024 until 04/16/2025 Scheduled Procedures Name Priority Associated Diagnoses Date/Ti [...] Visit Diagnoses Diagnosis Malignant neoplasm of prostate Dysuria Androgen deprivation therapy Encounter for therapeutic drug monitoring Abnormal CT of the abdomen Nonspecific (abnormal) findings on radiological and other examination of abdominal area, including retroperitoneum Esophagitis Esophagitis, unspecified Gastroesophageal reflux disease with esophagitis, unspecified whether hemorrhage Colitis Other and unspecified noninfectious gastroenteritis and colitis Screen for colon cancer Special screening for malignant neoplasms, colon documented in this encounter Care Teams Handle Turner Relationship Specialty Start Date End Date Yoni Ramírez MD [address] [place] [id number] PCP - General 07/05/10 documented as of this encounter
--- OUTSIDE RECORDS SUMMARY | 2024-07-31 18:40 | XMS_ITS | Encounter Summary ---
Author Organization [facility] Address [facility] [place] [address] Care Team Providers Care Piano Accompanist Name Role Phone Yoni Ramírez MD Primary Care Provider [phone] Encounter Details Date Type Department Care Team (Late st Contact Info) Description 09/10/2023 Telephone Hematology/Oncology at [address] [phone] Theresa Lay Social History Tobacco Use Types Packs/Day Years [...] place to sleep or slept in a jail (including now)? No 04/13/2022 Sex and Gender Information Value Date Recorded Sex Assigned at Not on file Gender Identity Not on file Sexual Orientation Not on file documented as of this encounter Miscellaneous Notes * Telephone Encounter - Theresa Lay - 09/10/2023 3:45 PM EST Called Jeff to let him know that he will have a mD APPT followed by georgina and still needing labs. He is aware of the change and will be here for his appt documented in this encounter Plan of Treatment Upcoming Encounters Date Type Department Care Team (Latest Contact Info) Description 08/05/2024 11:30 AM EST Office Visit Hematology/Oncolog y at [address] [phone] Deyvi Ibrahim MD [facility] [place] [address] Isabel Berry APRN [facility] [place] [address] 08/05/2024 12:00 PM EST Infusion Hematology Oncology at [address] [phone] 08/27/2024 10:00 AM EST Hospital Encounter [place] [phone] Gulshan Elder MD [facility] [place] [address] 08/27/2024 10:00 AM EST Anesthesia Event [place] [phone] Swati Gonzalez MD [facility] [place] [address] 08/27/2024 10:00 AM EST - 08/27/2024 11:00 AM EST Surgery [place] [phone] Gulshan Elder MD [facility] [place] [address] EGD, UPPER GI ENDOSCOPY (WRVU 2.09) Scheduled Procedures Name Priority Associated Diagnoses Date/Ti wa EGD, UPPER GI ENDOSCOPY (WRVU 2.09) Abnormal [...] on filedocumented in this encounter Care Teams Piano Accompanist Relationship Specialty Start Date End Date Yoni Ramírez MD [address] [place] [id number] PCP - General 07/05/10 documented as of this encounter
--- OUTSIDE RECORDS SUMMARY | 2024-07-31 18:40 | XMS_ITS ---
[place] [address] Care Team Providers Care Constitutional Law Professor Name Role Phone Yoni Ramírez MD Primary Care Provider Active Problems Problem Noted Date Diagnosed Date [...] 08/22/2013 Overview (08/22/2013): Cyclic episodes Leukocytosis 08/22/2013 Current Oncology Plans DH?LEUPROLIDE (LUPRON DEPOT) 22.5 MG EVERY 3 MONTH* Plan Start Date:01/31/2022 Plan Provider:Deyvi Ibrahim MD Linked Problems Malignant neoplasm of prosta te Treatment Medications No medications scheduled. Past Plans Therapy Plan 1 Plan Name Start Date Discontinue Date Treatment Medications Discontinue Reason Plan Provider [facility] DEGAREL[facility] NEW PATIENT INDUCTION 12/27/2021 01/31/2022 No medications scheduled. Therapy Complete Deyvi Ibrahim MD Radiation Treatments * No radiation treatments are documented for this patient in [facility]. Treatments may have been administered in another system.
--- OUTSIDE RECORDS SUMMARY | 2024-07-31 18:40 | XMS_ITS | Encounter Summary ---
Author Organization [facility] Address [facility] [place] [address] Care Team Providers Care Welt Beater Name Role Phone Yoni Ramírez MD Primary Care Provider Encounter Details Date Type Department Care Team (Late st Contact Info) Description 06/12/2023 3:00 PM EDT Office Visit Hematology/Oncology at [address] [phone] [facility] [address] [place] [address] Prostate cancer metastatic to intrapelvic lymph node; Androgen deprivation therapy Social History Tobacco Use [...] Sign Reading Time Taken Comments Blood Pressure 141/72 06/12/2023 3:32 PM EDT Pulse 70 06/12/2023 3:32 PM EDT Temperature 36.1 ??C (97 ??F) 06/12/2023 3:32 PM EDT Respiratory Rate 16 06/12/2023 3:32 PM EDT Oxygen Saturation 98% 06/12/2023 3:32 PM EDT Inhaled Oxygen Concentration - - Weight 107 kg (236 lb) 06/12/2023 3:32 PM EDT Height 175.3 cm (5' 9.02) 06/12/2023 3:32 PM ED T Body Mass Index 34.83 06/12/2023 3:32 PM EDT documented in this encounter Progress Notes * Deyvi Ibrahim MD - 06/12/2023 3:00 PM EDT Images from the original note were not included. Diagnosis: Prostatic adenocarcinoma, 4, Jj 4+4, with pelvic lymph node metastases PSA 2.1 CC:I feel fine HPI:Jeff Silke Arreguin is 58 y.o.M refereed by Dr. [...] consistent with prostatic adenocarcinoma grade 4, Jj 4+4 He complains of low back pain and perineal pain. He is urination has improved since TURP Interval history:Jeff Arreguin is in clinic for follow-up on prostate cancer, discussion on restaging scans and Lupron injection. Overall, he feels well. No interim medical problems. He denies any pain. No changes in urination PMH: No interval changes since last visit Admission with diverticulitis/MARIAN, Hyperlipidemia, obesity, hypertension, osteoarthritis, history of kidney disease, diverticulitis, Social History: No interval changes since last visit Quit smoking 10 years ago, does not drink alcohol, he lives at home with his , he is on disability, Family History: No interval changes since last visit Mother had a breast and ovarian cancer, 2 aunts had breast and ovarian cancer Allergies: Allergies Allergen Reactions Ephedrine Anxiety Suboxone [Buprenorphine-Naloxone] Hives Lexapro [Escitalopram] Hives Pitman odd Medications: Your Medications Accurate as of June 12, 2023 3:42 PM. If you have any questions, ask [...] 10 mg tablet Commonly known as: Elavil Refills: 0 aspirin EC 81 mg EC [...] 100 mg Refills: 0 naloxone 4 mg/actuation [place], Non-Aerosol Commonly known as: Narcan Narcan 4 [...] 30 capsule Refills: 11 Review of Systems: Constitutional: Negative for fever, chills, activity change, fatigue and unexpected weight change. HEENT: Negative for sore throat, mouth sores and trouble swallowing. Eyes: Negative. Respiratory: Negative for cough, shortness of breath and wheezing. Cardiovascular: Negative for chest pain, palpitations and leg swelling. Gastrointestinal: Negative for nausea, vomiting, abdominal pain, diarrhea, constipation and abdominal distention. Genitourinary: Positive for dysuria and difficulty urinating. Musculoskeletal: Back pain and hip pain. Skin: Negative. Neurological: Negative. Hematological: Negative for adenopathy. PE: General: AAAx3, in NAD Head: Normocephalic, without obvious abnormality, atraumatic Eyes: Ears: Nose: Throat: Lips, mucosa, and tongue normal; teeth and gums normal Neck: Supple, symmetrical, trachea midline, no adenopathy, thyroid: not enlarged, symmetric, no tenderness/mass/nodules, no JVD Back: Symmetric, no curvature, ROM normal, no CVA tenderness Lungs: Clear to auscultation bilaterally, respirations unlabored Chest Wall: No tenderness or deformity Heart: Regular rate and rhythm, S1, S2 normal, no murmur, rub or gallop Abdomen: Soft, non-tender, bowel sounds active all four quadrants, no masses, no organomegaly. There is no appreciable ascites Extremities: Extremities normal, atraumatic, no cyanosis or edema Pulses: 2+ and symmetric Skin: Skin color, texture, turgor normal, no rashes or lesions Lymph nodes: Cervical, supraclavicular, and axillary nodes normal Neurologic: Normal Vitals BP 141/72 (Patient Position: Sitting) Pulse 70 Temp 36.1 ??C (97 ??F) (Temporal) Resp 16 Ht 175.3 cm (5' 9.02) Wt 107 kg (236 lb) SpO2 98% BMI 34.83 kg/m?? Pathology: 170 gene panel:TMPRSS2, ERG TMPRSS2- ERG fusion transcript 10/20/21 Bladder neck tumor and prostatic tissue, transurethral resection: Prostatic adenocarcinoma, grade group 4, Jj grade 4+4, involving 100% of the submitted tissue. INTERPRETATION Block Antibody Result (Positive/Negative) A-1 MLH1 Positive, intact nuclear staining MSH2 Positive, intact nuclear staining MSH6 Positive, intact nuclear staining PMS2 Positive, intact nuclear staining Interpretation: Labs: pending 03/11/23 WBC 6.6 H/H 11.8/35.4 Plts 313 [...] hemoglobin 13.5, platelet count 265. PSA testosteron 04/09/23 <0.01 12/2022 0.03 07/19/23 0.06 <7.0 [...] kidney failure 09/21/22 completed radiation to pelvis/prostate Mr. Arreguin is 56 years old gentleman with new diagnosis of prostate cancer. I recommend to complete staging with CT scan chest abdomen pelvis and bone scan to delineate extent of disease. If patient has localized cancer he may be candidate for primary radiation therapy with long-term ADT. If he has metastatic disease we can start him on ADT and consider second line therapy depends upon extension of disease. We discussed side effects of androgen deprivation with degarelix. Side effects include but not limited to hot flashes, night sweats, mood swings, fatigue, joint pain, increasing blood sugar and cholesterol, decrease in bone and muscle mass, decrease in libido, remote increase in cardiovascular events. All questions were answered to patient satisfaction. He is interested to proceed with androgen deprivation. He would like to be treated at [facility] close to his home. 12/27/21 PSMA PET scan revealed abnormal tracer [...] No distant sites of metastasis. I will refill Jeff to our radiation oncology for consideration [...] labwork done and will go up to [facility] after his visit to have them [...] primary care provider. 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 03/13/23 he will have his lupron [...] continue Lupron for total of 2-3 years. Plan: 1. Lupron 22.5 mg every 3 months due today 2. Next visit with CBC, CMP, PSA, testosterone and Lupron in 3 months Mr. Arreguin voiced understanding of the plan and was given an opportunity to ask questions which I answered to the best of my ability. understands he can call the clinic between visits with any questions/concerns or new symptoms. documented in this encounter Plan of Treatment Upcoming Encounters Date Type Department Care Team (Latest Contact Info) Description 08/05/2024 11:30 AM EST Office Visit Hematology/Oncolog y at [address] [phone] [facility] [place]AT[place]Y [place] [address] [facility] [place] [address] 08/05/2024 12:00 PM EST Infusion Hematology Oncology at [address] [phone] 08/27/2024 10:00 AM EST Hospital En[place] [phone] [facility] [place] [address] 08/27/2024 10:00 AM EST Anesthesia [place] [phone] [facility] [place] [address] 08/27/2024 10:00 AM EST - 08/27/2024 11:00 AM EST [place] [phone] [facility] [place] [address] EGD, UPPER GI ENDOSCOPY (WRVU 2.09) Scheduled Orders Name Type Priority Associated Diagnoses Orde r Schedule CBC (with Diff) Lab STAT Prostate cancer metastatic to intrapelvic lymph node Every 3 months for 4 Occurrences starting 06/12/2023 until 06/12/2024 Comprehensive metabolic panel (non-fasting) Lab STAT Prostate cancer metastatic to intrapelvic lymph node Every 3 months for 4 Occurrences starting 06/12/2023 until 06/12/2024 PSA (Ultrasensitive) Lab STAT Prostate cancer metastatic to intrapelvic lymph node Every 3 months for 4 Occurrences starting 06/12/2023 until 06/12/2024 Testosterone, total Lab STAT Prostate cancer metastatic to intrapelvic lymph node Every 3 months for 4 Occurrences starting 06/12/2023 until 06/12/2024 Scheduled Procedures Name Priority Associated Diagnoses Date/Ti [...] as of this encounter Visit Diagnoses Diagnosis Prostate cancer metastatic to intrapelvic lymph node Androgen deprivation therapy Encounter for therapeutic drug monitoring Abnormal CT of the abdomen Nonspecific (abnormal) findings on radiological and other examination of abdominal area, including retroperitoneum Esophagitis Esophagitis, unspecified Gastroesophageal reflux disease with esophagitis, unspecified whether hemorrhage Colitis Other and unspecified noninfectious gastroenteritis and colitis Screen for colon cancer Special screening for malignant neoplasms, colon documented in this encounter Care Teams Welt Beater Relationship Specialty Start Date End Date Yoni Ramírez MD [address] [place] [id number] PCP - General 07/05/10 documented as of this encounter
--- OUTSIDE RECORDS SUMMARY | 2024-07-31 18:40 | XMS_ITS | Encounter Summary ---
[place] [address] Care Team Providers Care Portrait Photographer Name Role Phone Yoni Ramírez MD Primary Care Provider Reason for Referral * Consultation (Routine) - Closed Specialty Diagnoses / Procedures Referred By Contac t Referred To Contact Gastroenterology Diagnoses Malignant neoplasm of prostate Dysuria CT scan 11/06/23 showed thickening in esophagus and possible changes consistent with coltiits, patient reports GERD and occasional diarrhea Isabel Berry APRN [facility] [place] [address] [facility] [place] [address] [address] Referral ID Status Reason Start Date Expiration Date V isits Requested Visits Authorized [id number] Closed Consult, Test & Treat 01/21/2024 01/20/2025 1 1 * Consultation (Routine) - Closed Specialty Diagnoses / Procedures Referred By Contac t Referred To Contact Urology Diagnoses Malignant neoplasm of prostate Dysuria Isabel Berry APRN [facility] [place] [address] Aguila Altman MD [address] [place] [address] [place] [address] Referral ID Status Reason Start Date Expiration Date V isits Requested Visits Authorized [id number] Closed Consult, Test & Treat 01/21/2024 07/19/2024 1 1 Encounter Details Date Type Department Care Team (Late st Contact Info) Description 01/21/2024 1:45 PM EDT Office Visit Hematology/Oncology at [address] [phone] Isabel Berry APRN [facility] [place] [address] Malignant neoplasm of prostate; Dysuria Social History Tobacco Use Types Packs/Day Years [...] place to sleep or slept in a long term (including now)? No 04/13/2022 Sex and Gender Information Value Date Recorded Sex Assigned at Not on file Gender Identity Not on file Sexual Orientation Not on file documented as of this encounter Last Filed Vital Signs Vital Sign Reading Time Taken Comments Blood Pressure 159/83 01/21/2024 1:51 PM EDT Pulse 61 01/21/2024 1:51 PM EDT Temperature 36.1 ??C (97 ??F) 01/21/2024 1:51 PM EDT Respiratory Rate 16 01/21/2024 1:51 PM EDT Oxygen Saturation 97% 01/21/2024 1:51 PM EDT Inhaled Oxygen Concentration - - Weight 116.6 kg (257 lb) 01/21/2024 1:51 PM EDT Height 175.3 cm (5' 9.02) 01/21/2024 1:51 PM ED T Body Mass Index 37.93 01/21/2024 1:51 PM EDT documented in this encounter Progress Notes * Isabel Berry, TOP WADDY - 01/21/2024 1:45 PM EDT Images from the original note were not included. 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 He has not been compliant with his [id number] lupron. Last lupron was 09/11/23. He has had scans since his last visit. His hot flashes are improved on venlafaxine. Reports dysuria x 6-7 months and will see Urology. Denies hematuria. Nocturia stable 2-3x per night. No bone pain. He has low pelvic discomfort which is stable and occasional diarrhea and will see GI. He has a history of GERD. The remainderof his review of systems reviewed and is [...] Anxiety Suboxone [Buprenorphine-Naloxone] Hives Lexapro [Escitalopram] Hives [place] odd Medications: Your Medications Accurate as of January 21, 2024 2:47 PM. If you have any [...] 2 times daily. 0.2 mg Refills: 0 HYDROmorphone 4 mg tablet [...] axillary nodes normal Neurologic: Normal Vitals BP 159/83 (Patient Position: Sitting) Pulse 61 Temp 36.1 ??C (97 ??F) (Temporal) Resp 16 Ht 175.3 cm (5' 9.02) Wt 116.6 kg (257 lb) SpO2 97% BMI 37.93 kg/m?? Pathology: 170 gene panel:TMPRSS2, ERG TMPRSS2- ERG fusion transcript 10/20/21 Bladder neck tumor and prostatic tissue, transurethral resection: Prostatic adenocarcinoma, grade group 4, Jj grade 4+4, involving 100% of the submitted tissue. INTERPRETATION Block Antibody Result (Positive/Negative) A-1 MLH1 Positive, intact nuclear staining MSH2 Positive, intact nuclear staining MSH6 Positive, intact nuclear staining PMS2 Positive, intact nuclear staining Interpretation: Labs: 01/21/24 WBC 7.87, Hgb 13.9, PLT 267, [...] hemoglobin 13.5, platelet count 265. PSA testosteron 01/21/24 pending pending 09/11/23 <0.01 10 04/09/23 [...] primary care provider. #Financial hardship: Follows with certified social workers in health care. 03/13/23 he will have his lupron today. [...] maintaining compliance with lupron q 3 months. #Hot flashes: improved on venlafaxine #Low pelvic discomfort: CT and bone scan negative for metastatic disease #Thickening of bladder seen on CT 11/06/23: Pt also reports dysuria x 6-7 months. Recommend he see Dr. Altman from Urology who he has seen in the past and I placed a referral to Urology #Inflammation of colon, ?colitis seen on Ct 11/06/23: Pt also reports occasional diarrhea. Recommendhe see GI and I placed a referral today #Thickening of esophagus on CT 11/06/23: Pt also reports symptoms of GERD. Recommend he see GI and Iplaced a referral today. Plan: 1. Continue lupron 22.5 mg every 3 months overdue today 2. Recommend he see Urology for changes seen on CT scan as above and reports of dysuria x 6-7 months 3. Referral placed to GI for changes seen on CT scan as above and patient hx of GERD and occasionaldiarrhea. 4. Next visit in 3 months with CBC, CMP, PSA, and lupron same day Isabel Berry APRN 45 minutes were spent on date of visit, including non-face to face time including consultation withDr. Ibrahim regarding the plan of care. documented in this encounter Plan of Treatment Upcoming Encounters Date Type Department Care Team (Latest Contact Info) Description 08/05/2024 11:30 AM EST Office Visit Hematology/Oncolog y at [address] [phone] Deyvi Ibrahim MD [facility] [address] [place] [address] Isabel Berry APRN [facility] [place] [address] 08/05/2024 12:00 PM EST Infusion Hematology Oncology at [address] [phone] 08/27/2024 10:00 AM EST Hospital Encounter Gastroenterology at [place] [phone] Gulshan Elder MD [facility] [place] [address] 08/27/2024 10:00 AM EST Anesthesia [place] [phone] Swati Gonzalez MD [facility] [place] [address] 08/27/2024 10:00 AM EST - 08/27/2024 11:00 AM EST [place] [address] Gulshan Elder MD [facility] [address] EGD, UPPER GI ENDOSCOPY (WRVU 2.09) Scheduled [...] for colon cancer 08/27/2024 10:00 AM EST Scheduled Referrals Name Type Priority Associated Diagnoses Order Schedule Referral to Urology Outpatient Referral Routine Malignant neoplasm of prostate Dysuria Ordered: 01/21/2024 Referral to Gastroenterology Outpatient Referral Routine Malignant neoplasm of prostate Dysuria Ordered: 01/21/2024 documented as of this encounter Visit Diagnoses Diagnosis Malignant neoplasm of prostate Dysuria Abnormal CT of the abdomen Nonspecific (abnormal) findings on radiological and other examination of abdominal area, including retroperitoneum Esophagitis Esophagitis, unspecified Gastroesophageal reflux disease with esophagitis, unspecified whether hemorrhage Colitis Other and unspecified noninfectious gastroenteritis and colitis Screen for colon cancer Special screening for malignant neoplasms, colon documented in this encounter Care Teams Portrait Photographer Relationship Specialty Start Date End Date Yoni Ramírez MD [address] [place] [address] PCP - General 07/05/10 documented as of this encounter
--- OUTSIDE RECORDS SUMMARY | 2024-07-31 18:40 | XMS_ITS | Encounter Summary ---
Author Organization [facility] [place] [address] Care Team Providers Care Linderman Machine Operator Name Role Phone Yoni Ramírze MD Primary Care Provider Encounter Details Date Type Department Care Team (Late st Contact Info) Description 01/15/2024 Telephone Hematology/Oncology at [address] [phone] Theresa Lay Social History Tobacco [...] place to sleep or slept in a longterm (including now)? No 04/13/2022 Sex and Gender Information Value Date Recorded Sex Assigned at Not on file Gender Identity Not on file Sexual Orientation Not on file documented as of this encounter Miscellaneous Notes * Telephone Encounter - Theresa Lay - 01/15/2024 10:19 AM EDT Called to let Jeff know that he could see Nicole Berry on 01/21/24. He will need labs john where does he want to get those done. Asked him to call me back. documented in this encounter Plan of Treatment Upcoming Encounters Date Type Department Care Team (Latest Contact Info) Description 08/05/2024 11:30 AM EST Office Visit Hematology/Oncolog y at [address] [phone] Deyvi Ibrahim MD [facility] [address] [place] [address] Isabel Berry APRN [facility] [place] [address] 08/05/2024 12:00 PM EST Infusion Hematology Oncology at [address] [phone] 08/27/2024 10:00 AM EST Hospital Encounter [place] [address] Gulshan Elder MD [facility] [place] [address] 08/27/2024 10:00 AM EST Anesthesia Event [place] [address] Swati Gonzalez MD [facility] [place] [address] 08/27/2024 10:00 AM EST - 08/27/2024 11:00 AM EST Surgery [place] [address] Gulshan Elder MD [facility] [place] [address] EGD, UPPER GI ENDOSCOPY (WRVU 2.09) Scheduled [...] on filedocumented in this encounter Care Teams Linderman Machine Operator Relationship Specialty Start Date End Date Yoni Ramírez MD [address] [place] [address] PCP - General 07/05/10 documented as of this encounter
--- OUTSIDE RECORDS SUMMARY | 2024-07-31 18:40 | XMS_ITS | Encounter Summary ---
Author Organization [facility] [place] [address] Care Team Providers Care Insights Strategist Name Role Phone Yoni Ramírez MD Primary Care Provider [phone] Encounter Details Date Type Department Care Team (Late st Contact Info) Description 11/06/2023 12:05 AM EDT Ancillary Procedure Radiology Library at [facility] [address] [place] [phone] Yoni Ramírez MD [address] [place] [phone] Social History Tobacco Use Types Packs/Day Years [...] place to sleep or slept in a care home (including now)? No 04/13/2022 Sex and Gender Information Value Date Recorded Sex Assigned at Not on file Gender Identity Not on file Sexual Orientation Not on file documented as of this encounter Plan of Treatment Upcoming Encounters Date Type Department Care Team (Latest Contact Info) Description 08/05/2024 11:30 AM EST Office Visit Hematology/Oncolog y at [address] [phone] Deyvi Ibrahim MD [facility] DR HEMATOLOGY [place] [address] Isabel Berry APRN [facility] [place] [address] 08/05/2024 12:00 PM EST Infusion Hematology Oncology at [address] [phone] 08/27/2024 10:00 AM EST Hospital Encounter [place] [phone] Gulshan Elder MD [facility] [place] [address] 08/27/2024 10:00 AM EST Anesthesia [place] [phone] Swati Gonzalez MD [facility] [place] [address] 08/27/2024 10:00 AM EST - 08/27/2024 11:00 AM EST Surgery [place] [address] Gulshan Elder MD [facility] [place] [address] EGD, UPPER GI ENDOSCOPY (WRVU 2.09) Scheduled [...] Associated Diagnosis Comments FILM LIBRARY STORAGE ONLY CT CHEST ABDOMEN PELVIS Routine 11/06/2023 12:05 AM EDT documented in this encounter Results * Film Library- Storage Only CT Chest Abdomen Pelvis (11/06/2023 12:05 AM EDT) Narrative [facility] - 11/07/2023 3:57 AM EDT This exam is auto-finalizing. It's purpose is for storage only. Yoni Ramírez MD G FILM LIBRARY ORD ERABLES Performing Organization Address City/State/[facility] Co de Phone Number [place], [place] documented in this encounter Visit Diagnoses Not on filedocumented in this encounter Care Teams Insights Strategist Relationship Specialty Start Date End Date Yoni Ramírez MD [address] [place] [address] PCP - General 07/05/10 documented as of this encounter
--- OUTSIDE RECORDS SUMMARY | 2024-07-31 18:40 | XMS_ITS | Encounter Summary ---
Author Organization [facility] [place] [address] Care Team Providers Care Cook Station Name Role Phone Yoni Ramírez MD Primary Care Provider Reason for Visit * Reason Comments Injections IM lupron * Treatment/Therapy Plan Authorization (Routine) - Authorized Specialty Diagnoses / Procedures Referred By Contac t Referred To Contact Hematology and Oncology Diagnoses Malignant neoplasm of prostate Procedures TC LEUPROLIDE ACETATE 7.5MG, FOR DEPOST SUSPENSION (LUPRON DEPOT) [id number] LUPRON DEPOT Deyvi Ibrahim MD [address] [place] [address] [place] [address] Deyvi Ibrahim MD [address] [place] [address] DR [place] [address] Referral ID Status Reason Start Date Expiration Date V isits Requested Visits Authorized [id number] Authorized 08/13/2022 03/12/2024 99 99 Encounter Details Date Type Department Care Team (Late st Contact Info) Description 09/11/2023 3:00 PM EST Infusion Hematology Oncology at [address] [phone] Malignant neoplasm of prostate Social [...] as of this encounter Progress Notes * Татьяна Serrano RN - 09/11/2023 3:00 PM EST Infusion Note Diagnosis:Prostate Cancer Treatment: Lupron Injection right gluteal Patient instructed on side effects of Lupron. Patient states understanding of teaching, Patient aware to call clinic with any questions or concerns. Plan: Return to clinic as scheduled. documented in this encounter Plan of Treatment Upcoming Encounters Date Type Department Care Team (Latest Contact Info) Description 08/05/2024 11:30 AM EST Office Visit Hematology/Oncolog y at [address] [phone] Deyvi Ibrahim MD [facility] [place] [address] Isabel Berry APRN [facility] [place] [place] [address] 08/05/2024 12:00 PM EST Infusion Hematology Oncology at [address] [phone] 08/27/2024 10:00 AM EST Hospital Encounter [place] [phone] Gulshan Elder MD [facility] [place] [place] [address] 08/27/2024 10:00 AM EST Anesthesia Event [place] [phone] Swati Gonzalez MD [facility] [place] [address] 08/27/2024 10:00 AM EST - 08/27/2024 11:00 AM EST Surgery [place] [phone] Gulshan Elder MD [facility] [place] [address] EGD, UPPER GI ENDOSCOPY (WRVU 2.09) Scheduled [...] Date Dose Rate Site leuprolide (Lupron Depot) injection 22.5 mg 22.5 mg, Intramuscular, ONCE, 1 dose, On Sun09/11/23 at 1530, Last injection site was... leuprolide IM injection site: R Gluteal (03/13/2023 12:33 PM), Routine, This agent is restricted to outpatient use. Is this drug being given as an outpatient? Yes Given 09/11/2023 3:29 PM EST 22.5 mg Right Gluteal documented in this encounter Care Teams Cook Station Relationship Specialty Start Date End Date Yoni Ramírez MD [address] [place] [address] PCP - General 07/05/10 documented as of this encounter
--- OUTSIDE RECORDS SUMMARY | 2024-07-31 18:40 | XMS_ITS | Encounter Summary ---
Author Organization [facility] [place] [address] Care Team Providers Care Potato Peeling Machine Operator Name Role Phone Yoni Ramírez MD Primary Care Provider [phone] Reason for Visit * Reason Onset Date Comments Nausea 10/17/2023 Encounter Details Date Type Department Care Team (Late st Contact Info) Description 10/17/2023 Telephone Hematology Oncology at [address] [phone] Ann Ceron RN Nausea Social History Tobacco Use Types Packs/Day Years [...] encounter Miscellaneous Notes * Telephone Encounter - Eusebia Ceronstan Phillips RN - 10/17/2023 3:16 PM EST Caller: Jeff Relationship: Self Clarified Two Patient Identifiers: [x] Reason For Call: Nausea Assessment/Symptom Review (onset, location, duration, what makes it better or worse, pertinent positives and negatives): Jeff missed his imaging appt today at [facility] due to feeling poorly. Jeff reports nausea and body aches for the past couple days, he attended a yesterday for a close friend and feels the emotional aspect of that wore him down even more. He denies fever, other sick contacts. He took ibuprofen which has helped with body aches. He has compazine and zofran at home, he states he did take those and has found them to be helpful. He denies diarrhea, endorses constipation, last BM was yesterday. He states this is an ongoing issue for him since he takes narcotic pain medications, he takes miralax for this. 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 His will reschedule the imaging appt with [facility] then call us to let us know. Review of Systems Related to Reason for Call: System POS NEG Not Applicable Head (ENT /Neuro) [] [x] [] Cardiac [] [x] [] Respiratory [] [x] [] GI [x] [] [] [] [x] [] Musculoskeletal [x] [] [] Integumentary [] [x] [] Mental Health [] [x] [] Select Specific Decision Support Tool Used: Telephone Triage for Oncology Nurses, 3rd Edition, Daniel HERNANDEZ, 2019 Name of Guideline/Protocol Used: Nausea Disposition/Plan of Care: Follow home care directions take small frequent sips of liquids, eat small amounts of food frequently, take an antiemetic 20-30 mins prior to meals, Patient/Caregiver verbalizes understanding of plan of care: Yes Patient/Caregiver agrees with plan: Yes Advised patient/caregiver to: call office back for any new or worsening symptoms; emphasized symptoms that would require immediate ER/UC visit as per guideline in [place] Patient/Caregiver demonstrates understanding via teach back: Yes documented in this encounter Plan of Treatment Upcoming Encounters Date Type Department Care Team (Latest Contact Info) Description 08/05/2024 11:30 AM EST Office Visit Hematology/Oncolog y at [address] [phone] Deyvi Ibrahim MD [facility] DR [place] [address] Isabel Berry APRN [facility] [place] [address] 08/05/2024 12:00 PM EST Infusion Hematology Oncology at [address] [phone] 08/27/2024 10:00 AM EST Hospital Encounter [place] [phone] Gulshan Elder MD [facility] [place] [address] 08/27/2024 10:00 AM EST Anesthesia [place] [phone] Swati Gonzalez MD [facility] [place] [address] 08/27/2024 10:00 AM EST - 08/27/2024 11:00 AM EST [place] [address] Gulshan Elder MD [facility] [place] [address] EGD, UPPER GI ENDOSCOPY (WRVU 2.09) Scheduled Procedures Name Priority Associated Diagnoses Date/Ti sc EGD, UPPER GI ENDOSCOPY (WRVU 2.09) Abnormal [...] on filedocumented in this encounter Care Teams Potato Peeling Machine Operator Relationship Specialty Start Date End Date Yoni Ramírez MD [address] [place] [address] PCP - General 07/05/10 documented as of this encounter
--- OUTSIDE RECORDS SUMMARY | 2024-07-31 18:40 | XMS_ITS | Encounter Summary ---
Author Organization [facility] Address [facility] [place] [address] Care Team Providers Care Health And Safety Inspector Name Role Phone Yoni Ramírez MD Primary Care Provider [phone] Encounter Details Date Type Department Care Team (Latest Contact Info) Description 04/15/2024 Travel Social History Tobacco Use Types Packs/Day [...] place to sleep or slept in a skilled nursing (including now)? No 04/13/2022 Sex and Gender Information Value Date Recorded Sex Assigned at Not on file Gender Identity Not on file Sexual Orientation Not on file documented as of this encounter Plan of Treatment Upcoming Encounters Date Type Department Care Team (Latest Contact Info) Description 08/05/2024 11:30 AM EST Office Visit Hematology/Oncolog y at [address] [phone] Deyvi Ibrahim MD [facility] DR HEMATOLOGY [place] [address] Isabel Berry APRN [facility] [place] [address] 08/05/2024 12:00 PM EST Infusion Hematology Oncology at [address] [phone] 08/27/2024 10:00 AM EST Hospital Encounter [place] [phone] Gulshan Elder MD [facility] [place] [address] 08/27/2024 10:00 AM EST Anesthesia [place] [phone] Swati Gonzalez MD [facility] DR [place] [address] 08/27/2024 10:00 AM EST - 08/27/2024 11:00 AM EST Surgery [place] [phone] Gulshan Elder MD [facility] [place] [address] EGD, UPPER GI ENDOSCOPY (WRVU 2.09) Scheduled Procedures Name Priority Associated Diagnoses Date/Ti md EGD, UPPER GI ENDOSCOPY (WRVU 2.09) Abnormal [...] on filedocumented in this encounter Care Teams Health And Safety Inspector Relationship Specialty Start Date End Date Yoni Ramírez MD [address] [place] [address] PCP - General 07/05/10 documented as of this encounter
--- OUTSIDE RECORDS SUMMARY | 2024-07-31 18:40 | XMS_ITS | Encounter Summary ---
Author Organization [facility] [place] [address] Care Team Providers Care Hand Lens Polisher Name Role Phone Yoni Ramírez MD Primary Care Provider [phone] Reason for Visit * Reason Onset Date Comments Labs Only 09/18/2023 Encounter Details Date Type Department Care Team (Late st Contact Info) Description 09/18/2023 Telephone Hematology/Oncology at [address] [phone] Manav Dexter RN Labs Only Social History Tobacco Use [...] place to sleep or slept in a detention (including now)? No 04/13/2022 Sex and Gender Information Value Date Recorded Sex Assigned at Not on file Gender Identity Not on file Sexual Orientation Not on file documented as of this encounter Miscellaneous Notes * Telephone Encounter - Manav Dexter RN - 09/18/2023 4:50 PM EST Jeff Arreguin called and made aware of PSA results done 09/11/23. He was thankful for the follow up call. documented in this encounter Plan of Treatment Upcoming Encounters Date Type Department Care Team (Latest Contact Info) Description 08/05/2024 11:30 AM EST Office Visit Hematology/Oncolog y at [address] [phone] Deyvi Ibrahim MD [facility] HEMATOLOGY [place] [address] Isabel Berry APRN [facility] [place] [address] 08/05/2024 12:00 PM EST Infusion Hematology Oncology at [address] [phone] 08/27/2024 10:00 AM EST Hospital En[place] [address] Gulshan Elder MD [facility] [place] [address] 08/27/2024 10:00 AM EST Anesthesia [place] [phone] Swati Gonzalez MD [facility] [place] [address] 08/27/2024 10:00 AM EST - 08/27/2024 11:00 AM EST [place] [phone] Gulshan Elder MD [facility] [place] [address] EGD, UPPER GI ENDOSCOPY (WRVU 2.09) Scheduled [...] on filedocumented in this encounter Care Teams Hand Lens Polisher Relationship Specialty Start Date End Date Yoni Ramírez MD [address] [place] [id number] PCP - General 07/05/10 documented as of this encounter
--- OUTSIDE RECORDS SUMMARY | 2024-07-31 18:40 | XMS_ITS | Encounter Summary ---
Author Organization [facility] [place] [address] Care Team Providers Care Head Host/Hostess Name Role Phone Yoni Ramírez MD Primary Care Provider Encounter Details Date Type Department Care Team (Late st Contact Info) Description 11/27/2023 Telephone Hematology/Oncology at [address] [phone] Theresa Lay Social History Tobacco [...] * Telephone Encounter - Theresa Lay - 11/27/2023 4:20 PM EDT Spoke with Jeff Dsouza's to let him know that he is not due for his lupron until 12/04/23. She is aware of the day and time of the new appt. Will mail out a new appt letter documented in this encounter Plan of Treatment Upcoming Encounters Date Type Department Care Team (Latest Contact Info) Description 08/05/2024 11:30 AM EST Office Visit Hematology/Oncolog y at [address] [phone] Deyvi Ibrahim MD [facility] [place] [address] Isabel Berry APRN [facility] [place] [address] 08/05/2024 12:00 PM EST Infusion Hematology Oncology at [address] [phone] 08/27/2024 10:00 AM EST Hospital Encounter [place] [address] Gulshan Elder MD [facility] [place] [address] 08/27/2024 10:00 AM EST Anesthesia Event [place] [phone] Swati Gonzalez MD [facility] [place] [address] 08/27/2024 10:00 AM EST - 08/27/2024 11:00 AM EST Surgery [place] [phone] Gulshan Elder MD [facility] [place] [address] EGD, UPPER GI ENDOSCOPY (WRVU 2.09) Scheduled [...] on filedocumented in this encounter Care Teams Head Host/Hostess Relationship Specialty Start Date End Date Yoni Ramírez MD [address] [place] [address] PCP - General 07/05/10 documented as of this encounter
--- OUTSIDE RECORDS SUMMARY | 2024-07-31 18:40 | XMS_ITS | Encounter Summary ---
Author Organization [facility] Address [facility] [place] [address] Care Team Providers Care Consumer Loan Processor Name Role Phone Yoni Ramírez MD Primary Care Provider [phone] Encounter Details Date Type Department Care Team (Late st Contact Info) Description 03/27/2024 Telephone Surgical Specialties at [facility] [address] [facility] [place] [address] Carmela Sandhu Social History Tobacco Use Types Packs/Day Years [...] EST Office Visit Hematology/Oncolog y at [address] [phone] Deyvi Ibrahim MD [facility] HEMATOLOGY [place] [address] Isabel Berry APRN [facility] [place] [address] 08/05/2024 12:00 PM EST Infusion Hematology Oncology at [address] [phone] 08/27/2024 10:00 AM EST Hospital Encounter [place] [phone] Gulshan Elder MD [facility] [place] [address] 08/27/2024 10:00 AM EST Anesthesia [place] [phone] Swati Gonzalez MD [facility] DR [place] [address] 08/27/2024 10:00 AM EST - 08/27/2024 11:00 AM EST Surgery [place] [address] Gulshan Elder MD [facility] [place] [address] EGD, UPPER GI ENDOSCOPY (WRVU 2.09) Scheduled [...] on filedocumented in this encounter Care Teams Consumer Loan Processor Relationship Specialty Start Date End Date Yoni Ramírez MD [address] [place] [id number] PCP - General 07/05/10 documented as of this encounter
--- OUTSIDE RECORDS SUMMARY | 2024-07-31 18:40 | XMS_ITS | Encounter Summary ---
Author Organization [facility] [place] [address] Care Team Providers Care Financial Auditor Name Role Phone Yoni Ramírez MD Primary Care Provider [phone] Encounter Details Date Type Department Care Team (Late st Contact Info) Description 10/17/2023 Telephone Hematology/Oncology at [address] [phone] Theresa Lay Social History Tobacco [...] * Telephone Encounter - Theresa Lay - 10/17/2023 3:02 PM EST Spoke with Jeff as he missed his appts at [facility] for a ct/cap and bone scan today. He said he is not feeling well and could not make the drive by himself. He is going to reschedule the appts. I am going to push the appts out until I know when he is scheduled again at [facility] documented in this encounter Plan of Treatment Upcoming Encounters Date Type Department Care Team (Latest Contact Info) Description 08/05/2024 11:30 AM EST Office Visit Hematology/Oncolog y at [address] [phone] Deyvi Ibrahim MD [facility] HEMATOLOGY [place] [address] Isabel Berry APRN [facility] [place] [address] 08/05/2024 12:00 PM EST Infusion Hematology Oncology at [address] [phone] 08/27/2024 10:00 AM EST Hospital En[place] [address] Gulshan Elder MD [facility] [place] [address] 08/27/2024 10:00 AM EST Anesthesia [place] [phone] Swati Gonzalez MD [facility] DR [place] [address] 08/27/2024 10:00 AM EST - 08/27/2024 11:00 AM EST [place] [phone] Gulshan Elder MD [facility] [place] [address] EGD, UPPER GI ENDOSCOPY (WRVU 2.09) Scheduled [...] on filedocumented in this encounter Care Teams Financial Auditor Relationship Specialty Start Date End Date Yoni Ramírez MD [address] [place] [address] PCP - General 07/05/10 documented as of this encounter
--- OUTSIDE RECORDS SUMMARY | 2024-07-31 18:40 | XMS_ITS | Encounter Summary ---
Author Organization [facility] Address [facility] [place] [address] Care Team Providers Care Wardrobe Attendant Name Role Phone Yoni Ramírez MD Primary Care Provider [phone] Encounter Details Date Type Department Care Team (Latest Contact Info) Description 04/14/2024 Travel Social History Tobacco Use Types Packs/Day [...] place to sleep or slept in a fpc (including now)? No 04/13/2022 Sex and Gender Information Value Date Recorded Sex Assigned at Not on file Gender Identity Not on file Sexual Orientation Not on file documented as of this encounter Plan of Treatment Upcoming Encounters Date Type Department Care Team (Latest Contact Info) Description 08/05/2024 11:30 AM EST Office Visit Hematology/Oncolog y at [address] [phone] Deyvi Ibrahim MD [facility] DR HEMATOLOGY [place] [address] Isabel Berry APRN [facility] [place] [address] 08/05/2024 12:00 PM EST Infusion Hematology Oncology at [address] [phone] 08/27/2024 10:00 AM EST Hospital Encounter [place] [phone] Gulshan Elder MD [facility] [place] [address] 08/27/2024 10:00 AM EST Anesthesia [place] [phone] Swati Gonzalez MD [facility] DR [place] [address] 08/27/2024 10:00 AM EST - 08/27/2024 11:00 AM EST [place] [phone] Gulshan Elder MD [facility] [place] [address] EGD, UPPER GI ENDOSCOPY (WRVU 2.09) Scheduled Procedures Name Priority Associated Diagnoses Date/Ti fl EGD, UPPER GI ENDOSCOPY (WRVU 2.09) Abnormal [...] on filedocumented in this encounter Care Teams Wardrobe Attendant Relationship Specialty Start Date End Date Yoni Ramírez MD [address] [place] [address] PCP - General 07/05/10 documented as of this encounter
--- OUTSIDE RECORDS SUMMARY | 2024-07-31 18:40 | XMS_ITS | Encounter Summary ---
Author Organization [facility] [place] [address] Care Team Providers Care Facilities Locator Name Role Phone Yoni Ramírez MD Primary Care Provider [phone] Encounter Details Date Type Department Care Team (Late st Contact Info) Description 07/11/2024 Telephone Hematology/Oncology at [address] [phone] Theresa Lay Social History Tobacco [...] * Telephone Encounter - Theresa Lay - 07/11/2024 8:02 AM EST I called Jeff on 07/07 to see if he had his labs done yet prior to his appt. He said that he has not had labs done and he needed to cancel his appt has he did not have transportation . I rescheduled him. documented in this encounter Plan of Treatment Upcoming Encounters Date Type Department Care Team (Latest Contact Info) Description 08/05/2024 11:30 AM EST Office Visit Hematology/Oncolog y at [address] [phone] Deyvi Ibrahim MD [facility] [place] [address] Isabel Berry APRN [facility] [place] [address] 08/05/2024 12:00 PM EST Infusion Hematology Oncology at [address] [phone] 08/27/2024 10:00 AM EST Hospital En[place] [address] Gulshan Elder MD [facility] [address] 08/27/2024 10:00 AM EST Anesthesia [place] [phone] Swati Gonzalez MD [facility] [place] [address] 08/27/2024 10:00 AM EST - 08/27/2024 11:00 AM EST [place] [phone] Gulshan Elder MD [facility] [place] [address] EGD, UPPER GI ENDOSCOPY (WRVU 2.09) Scheduled [...] on filedocumented in this encounter Care Teams Facilities Locator Relationship Specialty Start Date End Date Yoni Ramírez MD [address] [place] [address] PCP - General 07/05/10 documented as of this encounter
--- OUTSIDE RECORDS SUMMARY | 2024-07-31 18:40 | XMS_ITS | Encounter Summary ---
Author Organization [facility] [place] [address] Care Team Providers Care Basket Hand Weaver Name Role Phone Yoni Ramírez MD Primary Care Provider [phone] Encounter Details Date Type Department Care Team (Late st Contact Info) Description 11/26/2023 Telephone Hematology/Oncology at [address] [phone] Theresa Lay Social History Tobacco [...] place to sleep or slept in a assisted (including now)? No 04/13/2022 Sex and Gender Information Value Date Recorded Sex Assigned at Not on file Gender Identity Not on file Sexual Orientation Not on file documented as of this encounter Miscellaneous Notes * Telephone Encounter - Theresa Lay - 11/26/2023 4:33 PM EDT Patient is aware of the day and time of appt change documented in this encounter Plan of Treatment Upcoming Encounters Date Type Department Care Team (Latest Contact Info) Description 08/05/2024 11:30 AM EST Office Visit Hematology/Oncolog y at [address] [phone] Deyvi Ibrahim MD [facility] HEMATOLOGY [place] [address] Isabel Berry APRN [facility] [place] [address] 08/05/2024 12:00 PM EST Infusion Hematology Oncology at [address] [phone] 08/27/2024 10:00 AM EST Hospital Encounter [place] [phone] Gulshan Elder MD [facility] [place] [address] 08/27/2024 10:00 AM EST Anesthesia [place] [phone] Swati Gonzalez MD [facility] [place] [address] 08/27/2024 10:00 AM EST - 08/27/2024 11:00 AM EST [place] [address] Gulshan Elder MD [facility] [place] [address] EGD, UPPER GI ENDOSCOPY (WRVU 2.09) Scheduled [...] on filedocumented in this encounter Care Teams Basket Hand Weaver Relationship Specialty Start Date End Date Yoni Ramírez MD [address] [place] [id number] PCP - General 07/05/10 documented as of this encounter
--- OUTSIDE RECORDS SUMMARY | 2024-07-31 18:40 | XMS_ITS | Encounter Summary ---
Author Organization Formerly [facility] [place] [address] Care Team Providers Care Library Media Technician Name Role Phone Yoni Ramírez MD Primary Care Provider Encounter Details Date Type Department Care Team (Late st Contact Info) Description 11/23/2023 Telephone Hematology/Oncology at [address] [phone] Theresa Lay Social History Tobacco [...] place to sleep or slept in a long-term (including now)? No 04/13/2022 Sex and Gender Information Value Date Recorded Sex Assigned at Not on file Gender Identity Not on file Sexual Orientation Not on file documented as of this encounter Miscellaneous Notes * Telephone Encounter - Theresa Lay - 11/23/2023 9:58 AM EDT Called Jeff to let him know that his appt on 11/27/23 needing labs prior. I had to leave a message. documented in this encounter Plan of Treatment Upcoming Encounters Date Type Department Care Team (Latest Contact Info) Description 08/05/2024 11:30 AM EST Office Visit Hematology/Oncolog y at [address] [phone] Deyvi Ibrahim MD [facility] [place] [address] Isabel Berry APRN [facility] [place] [place] [address] 08/05/2024 12:00 PM EST Infusion Hematology Oncology at [address] [phone] 08/27/2024 10:00 AM EST Hospital En[place] [address] Gulshan Elder MD [facility] [place] [place] [address] 08/27/2024 10:00 AM EST Anesthesia [place] [address] Swati Gonzalez MD [facility] [place] [address] 08/27/2024 10:00 AM EST - 08/27/2024 11:00 AM EST [place] [phone] Gulshan Elder MD [facility] [place] [place] [address] EGD, UPPER GI ENDOSCOPY (WRVU 2.09) Scheduled [...] on filedocumented in this encounter Care Teams Library Media Technician Relationship Specialty Start Date End Date Yoni Ramírez MD [address] [place] [address] PCP - General 07/05/10 documented as of this encounter
--- OUTSIDE RECORDS SUMMARY | 2024-07-31 18:40 | XMS_ITS | Encounter Summary ---
Author Organization [facility] [place] [address] Care Team Providers Care Reception Interviewer Name Role Phone Yoni Ramírez MD Primary Care Provider Encounter Details Date Type Department Care Team (Late st Contact Info) Description 12/03/2023 Telephone Hematology/Oncology at [address] [phone] Theresa Lay Social History Tobacco [...] place to sleep or slept in a custodial (including now)? No 04/13/2022 Sex and Gender Information Value Date Recorded Sex Assigned at Not on file Gender Identity Not on file Sexual Orientation Not on file documented as of this encounter Miscellaneous Notes * Telephone Encounter - Theresa Lay - 12/03/2023 2:38 PM EDT Called to speak with Jeff to remind him of his appt on 12/04/23 needing labs prior. I could not leave a message as the mail box was full. documented in this encounter Plan of Treatment Upcoming Encounters Date Type Department Care Team (Latest Contact Info) Description 08/05/2024 11:30 AM EST Office Visit Hematology/Oncolog y at [address] [phone] Deyvi Ibrahim MD [facility] [address] [place] [address] Isabel Berry APRN [facility] [place] [address] 08/05/2024 12:00 PM EST Infusion Hematology Oncology at [address] [phone] 08/27/2024 10:00 AM EST Hospital Encounter [place] [address] Gulshan Elder MD [facility] [address] 08/27/2024 10:00 AM EST Anesthesia Event [place] [address] Swati Gonzalez MD [facility] [place] [address] 08/27/2024 10:00 AM EST - 08/27/2024 11:00 AM EST Surgery [place] [phone] Gulshan Elder MD [facility] [place] [address] EGD, UPPER GI ENDOSCOPY (WRVU 2.09) Scheduled Procedures Name Priority Associated Diagnoses Date/Ti or EGD, UPPER GI ENDOSCOPY (WRVU 2.09) Abnormal [...] on filedocumented in this encounter Care Teams Reception Interviewer Relationship Specialty Start Date End Date Yoni Ramírez MD [address] [place] [address] PCP - General 07/05/10 documented as of this encounter
--- OUTSIDE RECORDS SUMMARY | 2024-07-31 18:40 | XMS_ITS | Encounter Summary ---
Author Organization [facility] Address [facility] [place] [address] Care Team Providers Care Litigation Paralegal Name Role Phone Yoni Ramírez MD Primary Care Provider [phone] Reason for Visit * Reason Onset Date Comments Colonoscopy 04/11/2024 Screening questi ons complete Encounter Details Date Type Department Care Team ([facility] st Contact Info) Description 04/11/2024 Telephone Surgical Specialties at [facility] [address] [facility] [place] [phone] Carmela Sandhu Colonoscopy (Screening questions complete ) Social History Tobacco Use Types Packs/Day Years [...] Miscellaneous Notes * Telephone Encounter - Carmela Sandhu - 04/16/2024 9:49 AM EDT After an anesthesia review of the patients records, it has been determined that the patient is not a candidate to have their procedure at [facility] due to comorbidities. It is safer for the patients procedure to be performed at a tertiary care center such as [facility] that has critical care and otherresources that our [facility] does not have. Patient and referring provider have beeninformed. * Telephone Encounter - Carmela Sandhu - 04/11/2024 12:33 PM EDT PCP: Yoni Ramírez MD Received referral: Yes Received last office note: 46 to 49.9 (NEEDS ANETHESIA REVIEW) 49.9 AND ABOVE HARD STOP *Please Verify the height and weight, and adjust if height and/or weight have changed* Estimated body mass index is 37.63 kg/m?? as calculated from the following: Height as of 03/31/24: 174.6 cm (5' 8.75). Weight as of 03/31/24: 114.8 kg (253 lb). Do you have any COPD? No - Continue with questions Do you use an oxygen tank? No - Continue with questions 3. Are you a diabetic? no No results found for: HA1C IF GREATER THEN 10 (NEEDS ANESTHESIA REVIEW) 4. Do you take any medications for weight loss and/or diabetes? No (IF PATIENT IS ON ANY DIABETES/WT LOSS MEDS - SEND TO NURSE) If yes, who is the prescriber of this medication? Was prescribed not taking - insurance will not pay 5. Do you have any cardiac disease? Such as a history of heart surgery, congestive heart failure, coronary artery disease, severe aortic disease, stent placement, ME (heart attack) pacemaker or defibrillator? Yes, Last Cardiology Office Visit Last EKG 03/26/2014(Send to anesthesia for review) [facility] cardiology about 3 yrs ago 6. Are you on dialysis? No - Continue with questions Sodium Lab Results Component Value Date NA 137 12/19/2021 (Less than 130 - send to anesthesia) Potassium Lab Results Component Value Date K 4.3 12/19/2021 (Less than 2.5 - HARD STOP, 2.5-3.5 - send to anesthesia) Platelets Lab Results Component Value Date PLATELET 310 12/19/2021 (Less than 75 - HARD STOP) 7. Have you recently been diagnosed with COVID, Flu, or RSV? No 8. Have you ever had a/an Colonoscopy and Endoscopy before? Yes: Date 06/20/2013- [facility] If yes, did you have any problems with the procedure? [X] No What type of sedation was used? IV CONSCIOUS SEDATION Have you had a problem with sedation or anesthesia? [X] No 9. Do you take any blood thinners such as Coumadin, Xeralto, Eliquis, Plavix or Brilinta? No - Continue with questions If yes, who is the prescriber of this medication? N/A 10. Do you have an allergy to latex? No 11. Do you take an iron supplement or a supplement with iron in it? no 12. Do you take prescription narcotic pain medications, including suboxone or methodone? Yes ( DILAUDID ) 13. Have you been diagnoses with or experiencing constipation? [X] Yes 14. Do you have a daily bowel movement? [X] No 15. Have you had any problems with colonoscopy prep in the past (including being told that it was poor or incomplete)? [X] No 16. Are you allergic or unable to tolerate Miralax due to side effects of nausea and vomiting? [X] No Sent to Anesthesia for scheduling clearance: Date: 04/11/2024 Cleared to Schedule? no IF THERE ARE NO HARD STOPS, PATIENT IS NOT ON A BLOOD THINNER OR DIABETES MEDS AND THERE IS NO INDICATION TO SEND FOR ANESTHESIA REVIEW - PROCEED TO SCHEDULING THE PATIENT documented in this encounter Plan of Treatment Upcoming Encounters Date Type Department Care Team (Latest Contact Info) Description 08/05/2024 11:30 AM EST Office Visit Hematology/Oncolog y at [address] [phone] Deyvi Ibrahim MD [facility] DR [place] [address] Isabel Berry APRN [facility] [place] [address] 08/05/2024 12:00 PM EST Infusion Hematology Oncology at [address] [phone] 08/27/2024 10:00 AM EST Hospital En[place] [phone] Gulshan Elder MD [facility] [place] [address] 08/27/2024 10:00 AM EST Anesthesia [place] [phone] Swati Gonzalez MD [facility] [place] [address] 08/27/2024 10:00 AM EST - 08/27/2024 11:00 AM EST [place] [phone] Gulshan Elder MD [facility] [place] [address] EGD, UPPER GI ENDOSCOPY (WRVU 2.09) Scheduled [...] on filedocumented in this encounter Care Teams Litigation Paralegal Relationship Specialty Start Date End Date Yoni Ramírez MD [address] [place] [address] PCP - General 07/05/10 documented as of this encounter
--- OUTSIDE RECORDS SUMMARY | 2024-07-31 18:40 | XMS_ITS | Encounter Summary ---
Author Organization [facility] Address [facility] [place] [address] Care Team Providers Care Tonnage Compilation Clerk Name Role Phone Yoni Ramírez MD Primary Care Provider [phone] Reason for Visit * Reason Comments Chemotherapy Lupron * Treatment/Therapy Plan Authorization (Routine) - Authorized Specialty Diagnoses / Procedures Referred By Contsahil t Referred To Contact Hematology and Oncology Diagnoses Lupron Procedures INFUSION ROOM Isabel Berry APRN [facility] [place] [address] Stj Hem Onc Infusion [address] [place] [phone] Referral ID Status Reason Start Date Expiration Date V isits Requested Visits Authorized [id number] Authorized 04/15/2024 04/15/2025 99 99 Encounter Details Date Type Department Care Team (Late st Contact Info) Description 04/15/2024 2:30 PM EDT Infusion Hematology Oncology at [address] [phone] Malignant neoplasm of prostate Social [...] as of this encounter Progress Notes * Leydi Xiong RN - 04/15/2024 2:30 PM EDT Infusion Note Diagnosis:Prostate Cancer [...] AM EST Office Visit Hematology/Oncolog y at [address] [phone] Deyvi Ibrahim MD [facility] [address] HEMATOLOGY [place] [address] Isabel Berry APRN [facility] [place] [address] 08/05/2024 12:00 PM EST Infusion Hematology Oncology at [address] [phone] 08/27/2024 10:00 AM EST Hospital Encounter [place] [phone] Gulshan Elder MD [facility] [place] [address] 08/27/2024 10:00 AM EST Anesthesia [place] [phone] Swati Gonzalez MD [facility] ANESTHESIOLOGY [place] [address] 08/27/2024 10:00 AM EST - 08/27/2024 11:00 AM EST Surgery [place] [phone] Gulshan Elder MD [facility] [address] [place] [address] EGD, UPPER GI ENDOSCOPY (WRVU 2.09) Scheduled [...] 22.5 mg, Intramuscular, ONCE, 1 dose, On Sun04/15/24 at 1515, Routine, This agent is restricted to outpatient use. Is this drug being given as an outpatient? Yes Given 04/15/2024 2:54 PM EDT 22.5 mg Right Gluteal documented in this encounter Care Teams Tonnage Compilation Clerk Relationship Specialty Start Date End Date Yoni Ramírez MD [address] [place] [address] PCP - General 07/05/10 documented as of this encounter
--- OUTSIDE RECORDS SUMMARY | 2024-07-31 18:40 | XMS_ITS | Encounter Summary ---
Author Organization Formerly [facility] Address [facility] [place] [address] Care Team Providers Care Rotary Veneer Machine Operator Name Role Phone Yoni Ramírez MD Primary Care Provider [phone] Encounter Details Date Type Department Care Team (Late st Contact Info) Description 03/31/2024 Abstract Surgical Specialties at [facility] [address] [facility] [place] [phone] Shana Armas Social History Tobacco Use Types Packs/Day Years [...] Sign Reading Time Taken Comments Blood Pressure - - Pulse - - Temperature - - Respiratory Rate - - Oxygen Saturation - - Inhaled Oxygen Concentration - - Weight 114.8 kg (253 lb) 03/31/2024 2:04 PM EDT Height 174.6 cm (5' 8.75) 03/31/2024 2:04 PM ED T Body Mass Index 37.63 03/31/2024 2:04 PM EDT documented in this encounter Plan of Treatment Upcoming Encounters Date Type Department Care Team (Latest Contact Info) Description 08/05/2024 11:30 AM EST Office Visit Hematology/Oncolog y at [address] [phone] Deyvi Ibrahim MD [facility] HEMATOLOGY [place] [address] Isabel Berry APRN [facility] [place] [address] 08/05/2024 12:00 PM EST Infusion Hematology Oncology at [address] [phone] 08/27/2024 10:00 AM EST Hospital [place] [address] Gulshan Elder MD [facility] [place] [address] 08/27/2024 10:00 AM EST Anesthesia [place] [address] Swati Gonzalez MD [facility] DR [place] [address] 08/27/2024 10:00 AM EST - 08/27/2024 11:00 AM EST [place] [phone] Gulshan Elder MD [facility] [place] [address] EGD, UPPER GI ENDOSCOPY (WRVU 2.09) Scheduled Procedures Name Priority Associated Diagnoses Date/Ti az EGD, UPPER GI ENDOSCOPY (WRVU 2.09) Abnormal [...] on filedocumented in this encounter Care Teams Rotary Veneer Machine Operator Relationship Specialty Start Date End Date Yoni Ramírez MD [address] [place] [address] PCP - General 07/05/10 documented as of this encounter
--- OUTSIDE RECORDS SUMMARY | 2024-07-31 18:40 | XMS_ITS | Encounter Summary ---
Author Organization [facility] [place] [address] Care Team Providers Care Handbag Designer Name Role Phone Yoni Ramírez MD Primary Care Provider [phone] Reason for Visit * Reason Onset Date Comments Results 06/22/2023 PSA results. Encounter Details Date Type Department Care Team ([facility] st Contact Info) Description 06/22/2023 Telephone Hematology/Oncology at [address] [phone] Trisha Lopez, RN Results (PSA results. ) Social History Tobacco Use Types Packs/Day [...] place to sleep or slept in a prison (including now)? No 04/13/2022 Sex and Gender Information Value Date Recorded Sex Assigned at Not on file Gender Identity Not on file Sexual Orientation Not on file documented as of this encounter Miscellaneous Notes * Telephone Encounter - Trisha Lopez RN - 06/22/2023 3:24 PM EST ----- Message from Gina Garces sent at 06/22/2023 3:19 PM EST ----- Jeff's called in looking to find out the results to his recent PSA/TEST I have printed and will be in his chart shortly Best call back number [phone] documented in this encounter Plan of Treatment Upcoming Encounters Date Type Department Care Team (Latest Contact Info) Description 08/05/2024 11:30 AM EST Office Visit Hematology/Oncolog y at [address] [phone] Deyvi Ibrahim MD [facility] DR HEMATOLOGY [place] [address] Isabel Berry APRN [facility] DR [place]ICAL [place] [address] 08/05/2024 12:00 PM EST Infusion Hematology Oncology at [address] [phone] 08/27/2024 10:00 AM EST Hospital Encounter [place] [address] Gulshan Elder MD [facility] DR GASTROENTER[place] [address] 08/27/2024 10:00 AM EST Anesthesia [place] [address] Swati Gonzalez MD [facility] DR ANESTHESIOLOGY [place] [address] 08/27/2024 10:00 AM EST - 08/27/2024 11:00 AM EST Surgery [place] [address] Gulshan Elder MD [facility] GASTROENTER[place] [address] EGD, UPPER GI ENDOSCOPY (WRVU 2.09) Scheduled [...] on filedocumented in this encounter Care Teams Handbag Designer Relationship Specialty Start Date End Date Yoni Ramírez MD [address] [place] [address] PCP - General 07/05/10 documented as of this encounter
--- OUTSIDE RECORDS SUMMARY | 2024-07-31 18:40 | XMS_ITS | Encounter Summary ---
Author Organization [facility] Address [facility] [place] [address] Care Team Providers Care Finance Clerk Name Role Phone Yoni Ramírez MD Primary Care Provider [phone] Encounter Details Date Type Department Care Team (Latest Contact Info) Description 09/11/2023 Travel Social History Tobacco Use Types Packs/Day [...] AM EST Office Visit Hematology/Oncolog y at [address] [phone] Deyvi Ibrahim MD [facility] DR [place] [address] Isabel Berry APRN [facility] [place] [address] 08/05/2024 12:00 PM EST Infusion Hematology Oncology at [address] [phone] 08/27/2024 10:00 AM EST Hospital En[place] [phone] Gulshan Elder MD [facility] [place] [address] 08/27/2024 10:00 AM EST Anesthesia [place] [phone] Swati Gonzalez MD [facility] [place] [address] 08/27/2024 10:00 AM EST - 08/27/2024 11:00 AM EST [place] [phone] Gulshan Elder MD [facility] [place] [address] EGD, UPPER GI ENDOSCOPY (WRVU 2.09) Scheduled Procedures Name Priority Associated Diagnoses Date/Ti tx EGD, UPPER GI ENDOSCOPY (WRVU 2.09) Abnormal [...] on filedocumented in this encounter Care Teams Finance Clerk Relationship Specialty Start Date End Date Yoni Ramírez MD [address] [place] [id number] PCP - General 07/05/10 documented as of this encounter
--- OUTSIDE RECORDS SUMMARY | 2024-07-31 18:41 | XMS_ITS | Encounter Summary ---
Author Organization [facility] [place] [address] Care Team Providers Care Industrial Aerial Installer Name Role Phone Yoni Ramírez MD Primary Care Provider Reason for Visit * Reason Comments Chemotherapy * Treatment/Therapy Plan Authorization (Routine) - Authorized Specialty Diagnoses / Procedures Referred By Contac t Referred To Contact Hematology and Oncology Diagnoses Malignant neoplasm of prostate Procedures TC LEUPROLIDE ACETATE 7.5MG, FOR DEPOST SUSPENSION (LUPRON DEPOT) [id number] LUPRON DEPOT Deyvi Ibrahim MD [address] [place] [address] DR [place] [address] Deyvi Ibrahim MD [address] [place] [address] DR [place]EM[place]Y [place] [address] Referral ID Status Reason Start Date Expiration Date V isits Requested Visits Authorized [id number] Authorized 08/13/2022 03/12/2024 99 99 Encounter Details Date Type Department Care Team (Late st Contact Info) Description 06/12/2023 3:30 PM EDT Infusion Hematology Oncology at [address] [phone] Malignant neoplasm of prostate Social [...] place to sleep or slept in a fci (including now)? No 04/13/2022 Sex and Gender Information Value Date Recorded Sex Assigned at Not on file Gender Identity Not on file Sexual Orientation Not on file documented as of this encounter Progress Notes * Yesenia Comer, RN - 06/12/2023 3:30 PM EDT Infusion Note Diagnosis:Prostate Cancer Treatment: [...] EST Office Visit Hematology/Oncolog y at [address] [phone] Deyvi Ibrahim MD [facility] [place]EMATOLOGY [place] [address] Isabel Berry APRN [facility] [place] [address] 08/05/2024 12:00 PM EST Infusion Hematology Oncology at [address] [phone] 08/27/2024 10:00 AM EST Hospital En[place] [phone] Gulshan Elder MD [facility] [place] [address] 08/27/2024 10:00 AM EST Anesthesia [place] [phone] Swati Gonzalez MD [facility] [place] [address] 08/27/2024 10:00 AM EST - 08/27/2024 11:00 AM EST [place] [phone] Gulshan Elder MD [facility] [place] [address] EGD, UPPER GI ENDOSCOPY (WRVU 2.09) Scheduled [...] 22.5 mg, Intramuscular, ONCE, 1 dose, On 06/12/23 at 1615, Last injection site was... leuprolide IM injection site: L Gluteal (12/19/2022 3:10 PM) , Routine, This agent is restricted to outpatient use. Is this drug being given as an outpatient? Yes Given 06/12/2023 3:59 PM EDT 22.5 mg Le ft Gluteal documented in this encounter Care Teams Industrial Aerial Installer Relationship Specialty Start Date End Date Yoni Ramírez MD [address] [place] [address] PCP - General 07/05/10 documented as of this encounter
--- OUTSIDE RECORDS SUMMARY | 2024-07-31 18:41 | XMS_ITS | Encounter Summary ---
Author Organization [facility] Address [facility] [place] [address] Care Team Providers Care Residential Fee Appraiser Name Role Phone Yoni Ramírez MD Primary Care Provider [phone] Encounter Details Date Type Department Care Team (Latest Contact Info) Description 09/12/2022 Travel Social History Tobacco Use Types Packs/Day [...] place to sleep or slept in a fdc (including now)? No 04/13/2022 Sex and Gender Information Value Date Recorded Sex Assigned at Not on file Gender Identity Not on file Sexual Orientation Not on file documented as of this encounter Plan of Treatment Upcoming Encounters Date Type Department Care Team (Latest Contact Info) Description 08/05/2024 11:30 AM EST Office Visit Hematology/Oncolog y at [address] [phone] Deyvi Ibrahim MD [facility] DR [place] [address] Isabel Berry APRN [facility] [place] [address] 08/05/2024 12:00 PM EST Infusion Hematology Oncology at [address] [phone] 08/27/2024 10:00 AM EST Hospital En[place] [phone] Gulshan Elder MD [facility] [place] [address] 08/27/2024 10:00 AM EST Anesthesia [place] [phone] Swati Gonzalez MD [facility] [place] [address] 08/27/2024 10:00 AM EST - 08/27/2024 11:00 AM EST [place] [phone] Gulshan Elder MD [facility] [place] [address] EGD, UPPER GI ENDOSCOPY (WRVU 2.09) Scheduled Procedures Name Priority Associated Diagnoses Date/Ti ok EGD, UPPER GI ENDOSCOPY (WRVU 2.09) Abnormal [...] on filedocumented in this encounter Care Teams Residential Fee Appraiser Relationship Specialty Start Date End Date Yoni Ramírez MD [address] [place] [address] PCP - General 07/05/10 documented as of this encounter
--- OUTSIDE RECORDS SUMMARY | 2024-07-31 18:41 | XMS_ITS | Encounter Summary ---
Author Organization [facility] Address [facility] [place] [address] Care Team Providers Care Driver Service Technician Name Role Phone Yoni Ramírez MD Primary Care Provider [phone] Encounter Details Date Type Department Care Team (Latest Contact Info) Description 09/10/2022 Travel Social History Tobacco Use Types Packs/Day [...] AM EST Office Visit Hematology/Oncolog y at [address] [phone] Deyvi Ibrahim MD [facility] DR [place] [address] Isabel Berry APRN [facility] [place] [address] 08/05/2024 12:00 PM EST Infusion Hematology Oncology at [address] [phone] 08/27/2024 10:00 AM EST Hospital Encounter [place] [phone] Gulshan Elder MD [facility] [address] 08/27/2024 10:00 AM EST Anesthesia [place] [phone] Swati Gonzalez MD [facility] [place] [address] 08/27/2024 10:00 AM EST - 08/27/2024 11:00 AM EST [place] [phone] Gulshan Elder MD [facility] [address] EGD, UPPER GI ENDOSCOPY (WRVU 2.09) Scheduled [...] on filedocumented in this encounter Care Teams Driver Service Technician Relationship Specialty Start Date End Date Yoni Ramírez MD [address] [place] [address] PCP - General 07/05/10 documented as of this encounter
--- OUTSIDE RECORDS SUMMARY | 2024-07-31 18:41 | XMS_ITS | Encounter Summary ---
Author Organization [facility] [place] [address] Care Team Providers Care Ornamental Iron Worker Helper Name Role Phone Yoni Ramírez MD Primary Care Provider [phone] Reason for Visit * Reason Onset Date Comments Other 03/22/2023 No show for bone scan Encounter Details Date Type Department Care Team (Late st Contact Info) Description 03/22/2023 Telephone Hematology/Oncology at [address] [phone] Earlene Casas RN Other (No show for bone scan) Social History Tobacco Use Types Packs/Day Years [...] encounter Miscellaneous Notes * Telephone Encounter - Earlene Casas RN - 03/22/2023 8:48 AM EDT Pt no showed for his bone scan at [facility] on 03/19/23. I called him and gave him number for [facility] radiologyfor him to reschedule. [phone] option 3. Asked him to call us with new time so we can look forreport, he agreed to do this. documented in this encounter Plan of Treatment Upcoming Encounters Date Type Department Care Team (Latest Contact Info) Description 08/05/2024 11:30 AM EST Office Visit Hematology/Oncolog y at [address] [phone] Deyvi Ibrahim MD [facility] DR [place] [address] Isabel Berry APRN [facility] [place] [address] 08/05/2024 12:00 PM EST Infusion Hematology Oncology at [address] [phone] 08/27/2024 10:00 AM EST Hospital Encounter [place] [address] Gulshan Elder MD [facility] [place] [address] 08/27/2024 10:00 AM EST Anesthesia [place] [phone] Swati Gonzalez MD [facility] [place] [address] 08/27/2024 10:00 AM EST - 08/27/2024 11:00 AM EST [place] [phone] Gulshan Elder MD [facility] [place] [address] EGD, UPPER GI ENDOSCOPY (WRVU 2.09) Scheduled [...] on filedocumented in this encounter Care Teams Ornamental Iron Worker Helper Relationship Specialty Start Date End Date Yoni Ramírez MD [address] [place] [address] PCP - General 07/05/10 documented as of this encounter
--- OUTSIDE RECORDS SUMMARY | 2024-07-31 18:41 | XMS_ITS | Encounter Summary ---
Author Organization [facility] [place] [address] Care Team Providers Care Comber Operator Name Role Phone Yoni Ramírez MD Primary Care Provider [phone] Encounter Details Date Type Department Care Team (Late st Contact Info) Description 04/09/2023 Ancillary Procedure Radiology Library at [facility] [address] [place] [phone] Yoni Ramírez MD [address] [place] [address] Social History Tobacco Use Types Packs/Day Years [...] AM EST Office Visit Hematology/Oncolog y at [address] [phone] Deyvi Ibrahmi MD [facility] DR [place] [address] Isabel Berry APRN [facility] [place] [address] 08/05/2024 12:00 PM EST Infusion Hematology Oncology at [address] [phone] 08/27/2024 10:00 AM EST Hospital Encounter [place] [phone] Gulshan Elder MD [facility] [place] [address] 08/27/2024 10:00 AM EST Anesthesia [place] [phone] Swati Gonzalez MD [facility] [place] [address] 08/27/2024 10:00 AM EST - 08/27/2024 11:00 AM EST Surgery [place] [address] Gulshan Elder MD [facility] [place] [address] EGD, UPPER GI ENDOSCOPY (WRVU 2.09) Scheduled [...] STORAGE ONLY CT CHEST ABDOMEN PELVIS Routine 04/09/2023 12:00 AM EDT documented in this encounter Results * Film Library- Storage Only CT Chest Abdomen Pelvis (04/09/2023 12:00 AM EDT) Narrative [facility] - 04/10/2023 1:49 PM EDT This exam is auto-finalizing. It's purpose is for storage only. Yoni Ramírez MD G FILM LIBRARY ORD ERABLES Performing Organization Address City/State/[facility] Co de Phone Number [place], [place] documented in this encounter Visit Diagnoses Not on filedocumented in this encounter Care Teams Comber Operator Relationship Specialty Start Date End Date Yoni Ramírez MD [address] [place] [address] PCP - General 07/05/10 documented as of this encounter
--- OUTSIDE RECORDS SUMMARY | 2024-07-31 18:41 | XMS_ITS | Encounter Summary ---
Author Organization [facility] [place] [address] Care Team Providers Care At Risk Specialist Name Role Phone Yoni Ramírez MD Primary Care Provider Reason for Visit * Reason Comments Injections Lupron * Treatment/Therapy Plan Authorization (Routine) - Authorized Specialty Diagnoses / Procedures Referred By Contac t Referred To Contact Hematology and Oncology Diagnoses Malignant neoplasm of prostate Procedures TC LEUPROLIDE ACETATE 7.5MG, FOR DEPOST SUSPENSION (LUPRON DEPOT) [id number] LUPRON DEPOT Deyvi Ibrahim MD [address] [place] [address] DR [place] [address] Deyvi Ibrahim MD [address] [place] [address] DR [place]OLOGY [place] [address] Referral ID Status Reason Start Date Expiration Date V isits Requested Visits Authorized [id number] Authorized 08/13/2022 03/12/2024 99 99 Encounter Details Date Type Department Care Team (Late st Contact Info) Description 12/19/2022 3:30 PM EDT Infusion Hematology Oncology at [address] [phone] Malignant neoplasm of prostate Social [...] place to sleep or slept in a senior living (including now)? No 04/13/2022 Sex and Gender Information Value Date Recorded Sex Assigned at Not on file Gender Identity Not on file Sexual Orientation Not on file documented as of this encounter Progress Notes * Ann Ceron RN - 12/19/2022 3:30 PM EDT Infusion Note Diagnosis:Prostate Cancer Treatment: Lupron Injection Lupron 22.5 mg injected in left buttocks. Patient instructed on side effects of Lupron. Patient states understanding of teaching, Patient aware to call clinic with any questions or concerns. Plan: Return to clinic as scheduled. documented in this encounter Plan of Treatment Upcoming Encounters Date Type Department Care Team (Latest Contact Info) Description 08/05/2024 11:30 AM EST Office Visit Hematology/Oncolog y at [address] [phone] Deyvi Ibrahim MD [facility] DR HEMATOLOGY [place] [address] Isabel Berry APRN [facility] [place] [address] 08/05/2024 12:00 PM EST Infusion Hematology Oncology at [address] [phone] 08/27/2024 10:00 AM EST Hospital Encounter [place] [phone] Gulshan Elder MD [facility] [place] [address] 08/27/2024 10:00 AM EST Anesthesia [place] [phone] Swati Gonzalez MD [facility] DR [place] [address] 08/27/2024 10:00 AM EST - 08/27/2024 11:00 AM EST Surgery [place] [address] Gulshna Elder MD [facility] [place] [address] EGD, UPPER GI ENDOSCOPY (WRVU 2.09) Scheduled [...] 22.5 mg, Intramuscular, ONCE, 1 dose, On Sun12/19/22 at 1500, , Routine, This agent is restricted to outpatient use. Is this drug being given as an outpatient? Yes Given 12/19/2022 3:10 PM EDT 22.5 mg Le ft Gluteal documented in this encounter Care Teams At Risk Specialist Relationship Specialty Start Date End Date Yoni Ramírez MD [address] [place] [address] PCP - General 07/05/10 documented as of this encounter
--- OUTSIDE RECORDS SUMMARY | 2024-07-31 18:41 | XMS_ITS | Encounter Summary ---
Author Organization [facility] Address [facility] [place] [address] Care Team Providers Care Cutting Torch Operator Name Role Phone Yoni Ramírez MD Primary Care Provider [phone] Encounter Details Date Type Department Care Team (Latest Contact Info) Description 08/18/2022 Travel Social History Tobacco Use Types Packs/Day [...] AM EST Office Visit Hematology/Oncolog y at [address] [phone] Deyvi Ibrahim MD [facility] DR [place] [address] Isabel Berry APRN [facility] [place] [address] 08/05/2024 12:00 PM EST Infusion Hematology Oncology at [address] [phone] 08/27/2024 10:00 AM EST Hospital Encounter [place] [phone] Gulshan Elder MD [facility] [place] [address] 08/27/2024 10:00 AM EST Anesthesia [place] [phone] Swati Gonzalez MD [facility] [place] [address] 08/27/2024 10:00 AM EST - 08/27/2024 11:00 AM EST Surgery [place] [phone] Gulshan Elder MD [facility] [place] [address] EGD, UPPER GI ENDOSCOPY (WRVU 2.09) Scheduled Procedures Name Priority Associated Diagnoses Date/Ti wv EGD, UPPER GI ENDOSCOPY (WRVU 2.09) Abnormal [...] on filedocumented in this encounter Care Teams Cutting Torch Operator Relationship Specialty Start Date End Date Yoni Ramírez MD [address] [place] [address] PCP - General 07/05/10 documented as of this encounter
--- OUTSIDE RECORDS SUMMARY | 2024-07-31 18:41 | XMS_ITS | Encounter Summary ---
Author Organization [facility] Address [facility] [place] [address] Care Team Providers Care Wheel Roller Name Role Phone Yoni Ramírez MD Primary Care Provider [phone] Encounter Details Date Type Department Care Team (Latest Contact Info) Description 09/19/2022 Travel Social History Tobacco Use Types Packs/Day [...] AM EST Office Visit Hematology/Oncolog y at [address] [phone] Deyvi Ibrahim MD [facility] DR [place] [address] Isabel Berry APRN [facility] [place] [address] 08/05/2024 12:00 PM EST Infusion Hematology Oncology at [address] [phone] 08/27/2024 10:00 AM EST Hospital En[place] [phone] Gulshan Elder MD [facility] [place] [address] 08/27/2024 10:00 AM EST Anesthesia [place] [phone] Swati Gonzalez MD [facility] [place] [address] 08/27/2024 10:00 AM EST - 08/27/2024 11:00 AM EST [place] [phone] Gulshan Elder MD [facility] [place] [address] EGD, UPPER GI ENDOSCOPY (WRVU 2.09) Scheduled Procedures Name Priority Associated Diagnoses Date/Ti mi EGD, UPPER GI ENDOSCOPY (WRVU 2.09) Abnormal [...] on filedocumented in this encounter Care Teams Wheel Roller Relationship Specialty Start Date End Date Yoni Ramírez MD [address] [place] [address] PCP - General 07/05/10 documented as of this encounter
--- OUTSIDE RECORDS SUMMARY | 2024-07-31 18:41 | XMS_ITS | Encounter Summary ---
Author Organization [facility] [place] [address] Care Team Providers Care Jewel Corner Brushing Machine Operator Name Role Phone Yoni Ramírez MD Primary Care Provider Encounter Details Date Type Department Care Team (Late st Contact Info) Description 09/01/2022 Telephone Radiation Oncology at [address] [phone] Geovani Handy RN Social History Tobacco Use Types Packs/Day [...] encounter Miscellaneous Notes * Telephone Encounter - Geovani Handy RN - 09/01/2022 1:56 PM EST Call placed to patient as he has been a no all no show for xrt x 2 weeks. Patient when does not show up is usually very ill so this RN is concerned that patient maybe hospitalized and this clinic is unaware. Patient or did not answer so message was left on identifiable machine for patient to call this RN back at [phone]. documented in this encounter Plan of Treatment Upcoming Encounters Date Type Department Care Team (Latest Contact Info) Description 08/05/2024 11:30 AM EST Office Visit Hematology/Oncolog y at [address] [phone] Deyvi Ibrahim MD [facility] HEMATOLOGY [place] [address] Isabel Berry APRN [facility] [place] [address] 08/05/2024 12:00 PM EST Infusion Hematology Oncology at [address] [phone] 08/27/2024 10:00 AM EST Hospital Encounter [place] [address] Gulshan Elder MD [facility] [place] [address] 08/27/2024 10:00 AM EST Anesthesia Event [place] [phone] Swati Gonzalez MD [facility] DR ANESTHESI[place]Y [place] [address] 08/27/2024 10:00 AM EST - 08/27/2024 11:00 AM EST Surgery [place] [phone] Gulshan Elder MD [facility] [place] [address] EGD, UPPER GI ENDOSCOPY (WRVU 2.09) Scheduled [...] on filedocumented in this encounter Care Teams Jewel Corner Brushing Machine Operator Relationship Specialty Start Date End Date Yoni Ramírez MD [address] [place] [address] PCP - General 07/05/10 documented as of this encounter
--- OUTSIDE RECORDS SUMMARY | 2024-07-31 18:41 | XMS_ITS | Encounter Summary ---
Author Organization [facility] [place] [address] Care Team Providers Care Director Of Sustainability Name Role Phone Yoni Ramírez MD Primary Care Provider [phone] Encounter Details Date Type Department Care Team (Late st Contact Info) Description 09/21/2022 2:00 PM EST Notes Only Radiation Oncology at [address] [phone] Yariel Ernandez MD [address] [place] [address] DR RADIATION ONCOLOGY [place], [place] [id number] Social History Tobacco Use Types Packs/Day Years [...] as of this encounter Progress Notes * Geovani Handy RN - 09/21/2022 2:00 PM EST Patient seen for last day of xrt. Patient is glad he is finally done but has some concerns about mild swelling in bilateral legs. On examination patient has non pitting edema to bilateral lower extremities which is not unusual for this patient given his kidney functioning/disease. Ensured patient that this was not a radiation side effect and is most likely from dehydration or other reoccuring medical condition. Patient did state that he does have a follow up appt. With his PCP this coming Sunday and will bring it up then. Patient was encouraged to drink plenty of fluids to flush his kidneys as well as to stay away from extra salt and to elevate his legs when he got home to help decrease swelling. Patient is aware to go to the ER is swelling continues. Patient had no further questions related to radiation and will be seen for follow up care regarding his prostate at a later date. documented in this encounter Plan of Treatment Upcoming Encounters Date Type Department Care Team (Latest Contact Info) Description 08/05/2024 11:30 AM EST Office Visit Hematology/Oncolog y at [address] [phone] Deyvi Ibrahim MD [facility] HEMATOLOGY [place] [address] Isabel Berry APRN [facility] [place] [address] 08/05/2024 12:00 PM EST Infusion Hematology Oncology at [address] [phone] 08/27/2024 10:00 AM EST Hospital En[place] [phone] Gulshan Elder MD [facility] [place] [address] 08/27/2024 10:00 AM EST Anesthesia [place] [phone] Swati Gonzalez MD [facility] [place] [address] 08/27/2024 10:00 AM EST - 08/27/2024 11:00 AM EST [place] [phone] Gulshan Elder MD [facility] [place] [address] EGD, UPPER GI ENDOSCOPY (WRVU 2.09) Scheduled [...] on filedocumented in this encounter Care Teams Director Of Sustainability Relationship Specialty Start Date End Date Yoni Ramírez MD NPI: [id number] [place] [address] PCP - General 07/05/10 documented as of this encounter
--- OUTSIDE RECORDS SUMMARY | 2024-07-31 18:41 | XMS_ITS | Encounter Summary ---
Author Organization [facility] [place] [address] Care Team Providers Care Embalmer Assistant Name Role Phone Yoni Ramírez MD Primary Care Provider Reason for Visit * Reason Onset Date Comments Prior Authorization 02/21/2023 Encounter Details Date Type Department Care Team (Late st Contact Info) Description 02/21/2023 Telephone [place]ematology [place] [phone] Victorina Dallas Prior Authorization Social History Tobacco Use Types Packs/Day Years [...] * Telephone Encounter - Victorina Strong - 02/21/2023 11:21 AM EDT Procedure Prior Authorization Procedure/Cpt: [address]7023 Pet scan, [id number] Ct c/a/p Rationale for request: C61, C77.5 Health plan: [facility] advantage medicare Authorizing operations support representative name: Call to health plan on: 02/21/23 Health plan decision: 11:25 am per Chichi H: No PA is required as long as it is outpatient and provider is in network Quantity approved: Authorization number: Start date: End date: Facility: [facility] Per Ok fee schedule ([email or web address]) NO PA REQUIRED documented in this encounter Plan of Treatment Upcoming Encounters Date Type Department Care Team (Latest Contact Info) Description 08/05/2024 11:30 AM EST Office Visit Hematology/Oncolog y at [address] [phone] Deyvi Ibrahim MD [facility] HEMATOLOGY [place] [address] [facility] [place] [address] 08/05/2024 12:00 PM EST Infusion Hematology Oncology at [address] [phone] 08/27/2024 10:00 AM EST Hospital En[place] [phone] [facility] [place] [address] 08/27/2024 10:00 AM EST Anesthesia [place] [phone] [facility] DR [place] [address] 08/27/2024 10:00 AM EST - 08/27/2024 11:00 AM EST [place] [phone] [facility] [place] [address] EGD, UPPER GI ENDOSCOPY (WRVU 2.09) Scheduled [...] on filedocumented in this encounter Care Teams Embalmer Assistant Relationship Specialty Start Date End Date Yoni Ramírez MD [address] [place] [address] PCP - General 07/05/10 documented as of this encounter
--- OUTSIDE RECORDS SUMMARY | 2024-07-31 18:41 | XMS_ITS | Encounter Summary ---
Author Organization Formerly [facility] [place] [address] Care Team Providers Care Rustic Terrazzo Setter Name Role Phone Yoni Ramírez MD Primary Care Provider [phone] Encounter Details Date Type Department Care Team (Late st Contact Info) Description 08/04/2022 2:30 PM EST Office Visit Radiation Oncology at [address] [phone] Jerome Sim MD [facility] [place] [address] Malignant neoplasm of prostate Social History Tobacco [...] Sign Reading Time Taken Comments Blood Pressure 129/88 08/04/2022 3:05 PM EST Pulse 83 08/04/2022 3:05 PM EST Temperature 36.7 ??C (98.1 ??F) 08/04/2022 3 :05 PM EST Respiratory Rate 18 08/04/2022 3:05 PM EST Oxygen Saturation 98% 08/04/2022 3:0 5 PM EST Inhaled Oxygen Concentration - - Weight 103.2 kg (227 lb 9.6 oz) 022 3:05 PM EST with crocs Height - - Body Mass Index 33.6 07/18/2022 3:16 PM EST documented in this encounter Progress Notes * Jerome Sim MD - 08/04/2022 2:30 PM EST Images from the original note were not included. [facility] Medicine Radiation Oncology Radiation Oncology On-treatment Visit Note Patient ID Patient name: Jeff Arreguin Date of : 1965 Referring: Dr Ibrahim PCP: Yoni Ramírez MD Chief complaint: Cancer Staging Malignant neoplasm of prostate Staging form: Prostate, AJCC 8th Edition - Clinical: Stage ALYSSA (cT4, cN1, cM0, PSA: 3, Grade Group: 4) - Signed by Yariel Ernandez MD on 02/23/2022 Jeff Arreguin is a 56 y.o. man diagnosed with node positive, locally advanced prostate cancer s/p TURP. MRI is concerning for YARELY, SVI and bladder neck invasion. Treatment Details Intent: Definitive (Curative) [facility] 01/31/2022 04/25/2022 degarelix (Firmagon) SubQ 240 mg leuprolide (Lupron Depot) IM 22.5 mg 22.5 mg [facility] ONCOLOGY (AMB) 07/18/2022 leuprolide (Lupron Depot) IM 22.5 mg Abiraterone- currently held per Dr. Ibrahim Modality: VMAT Initial Treatment Site Pelvis Prescribed Dose 45Gy in 25 fractions Boost Treatment site Prostate and Seminal vesicles Prescribed Dose 79.2 Gy in 44 fractions Current Dose: 63.0 Gy in 35 fractions Interval Clinical Course General: Feeling well today. Ongoing acute on chronic nausea at baseline is not bothersome this week. : No frequency or urgency. Nocturia 1-2x/nt at baseline. Currently getting up 4- 5x/nt, but he attributes this to HF/night sweats. Taking Aleve 1 tab BID, flomax x 2 tab QHS. GI: No diarrhea Pain: Pain rated 0/10. Performance Status KPS Score ECOG Grade Definition 90-100 0 Fully active, able to carry on all pre-disease performance without restriction 70-80 1 Restricted in physically strenuous activity but ambulatory and able to carry out work of a light or sedentary nature, e.g., light house work, office work XX 50-60 2 Ambulatory and capable of all selfcare but unable to carry out any work activities; up and about more than 50% of waking hours 30-40 3 Capable of only limited selfcare; confined to bed or chair more than 50% of waking hours 10-20 4 Completely disabled; cannot carry on any selfcare; totally confined to bed or chair Medications Medications 07/20/22 4646 Medication Sig Taking? amitriptyline (Elavil) 10 mg Tablet clonazePAM (KlonoPIN) 1 mg Tablet TAKE 1 TABLET BY MOUTH EVERY NIGHT AND ONE- HALF TABLET EVERY MORNING cloNIDine (Catapres) 0.1 mg Tablet Take 0.1 mg by mouth 2 times daily. venlafaxine XR (Effexor-XR) 37.5 mg Capsule, Sust. Release 24 hr Take 1 capsule by mouth daily. vortioxetine (Trintellix) 10 mg Tablet Take 10 mg by mouth daily. HYDROmorphone (Dilaudid) 4 mg Tablet Take 4 mg by mouth 4 times daily. aspirin EC 81 mg Tablet, Delayed Release (E.C.) Take 1 tablet by mouth every evening. tamsulosin (Flomax) 0.4 mg Capsule 0.4 mg nightly. prochlorperazine (Compazine) [address] 25 mg rectally every 12 hours as needed. potassium chloride (K-Tab) 20 mEq Tablet Sustained Release daily as needed. pantoprazole EC (Protonix) 40 mg Tablet, Delayed Release (E.C.) daily as needed. naloxone (Narcan) 4 mg/actuation [place], Non-Aerosol Narcan 4 mg/actuation nasal spray Take 1 spray as needed by nasal route. atorvastatin (Lipitor) 20 mg Tablet TAKE ONE TABLET BY MOUTH EVERY EVENING acetaminophen (TYLENOL) 500 mg Tablet Take 2 tablets by mouth every 6 hours as needed for Pain. Calcium Citrate-Vitamin D3 315-250 mg-unit Tablet Take 2 tablets by mouth 3 times daily. Patient taking differently: Take 1 tablet by mouth daily. ondansetron (ZOFRAN-ODT) 4 mg Tablet, Rapid Dissolve Take 4 mg by mouth every 8 hours as needed forNausea. Exam Vitals: There were no vitals taken for this visit. General: Appears well, in no distress Imaging/Labs Interval setup imaging has been checked and approved. See [facility] for details. Impression/Plan Tolerance to radiotherapy / ADT: Tolerating as anticipated. Continue as planned. Next dose Lupron due in September - Dr Ibrahim overseeing. Abd Pain: Chronic n/v/abd pain, ongoing. Doing better this week. LUTS Cont Aleve 1 tab BID, Flomax 2 tabs QHS Followup: RTC for on-treatment assessment next week. No orders of the defined types were placed in this encounter. Jerome Sim M.D. (covering for Yariel Ernandez M.D., M.S.) ??? National Cancer [place] (NCI) Comprehensive Cancer Center ??? [employer] Commission on Cancer (ACS Benjamin) Accredited Cancer Program ??? [employer] (ACR) Accredited Radiation Oncology Program documented in this encounter Plan of Treatment Upcoming Encounters Date Type Department Care Team (Latest Contact Info) Description 08/05/2024 11:30 AM EST Office Visit Hematology/Oncolog y at [address] [phone] Deyvi Ibrahim MD [facility] DR HEMATOLOGY [place] [address] Isabel Berry APRN [facility] [place] [address] 08/05/2024 12:00 PM EST Infusion Hematology Oncology at [address] [phone] 08/27/2024 10:00 AM EST Hospital Encounter [place] [phone] Gulshan Elder MD [facility] [place] [address] 08/27/2024 10:00 AM EST Anesthesia [place] [phone] Swati Gonzalez MD [facility] DR [place] [address] 08/27/2024 10:00 AM EST - 08/27/2024 11:00 AM EST Surgery [place] [phone] Gulshan Elder MD [facility] [place] [address] EGD, UPPER GI ENDOSCOPY (WRVU 2.09) Scheduled [...] colon documented in this encounter Care Teams Rustic Terrazzo Setter Relationship Specialty Start Date End Date Yoni Ramírez MD [address] [place] [id number] PCP - General 07/05/10 documented as of this encounter
--- OUTSIDE RECORDS SUMMARY | 2024-07-31 18:41 | XMS_ITS | Encounter Summary ---
Author Organization [facility] Address [facility] [place] [address] Care Team Providers Care Connection Worker Name Role Phone Yoni Ramírez MD Primary Care Provider [phone] Encounter Details Date Type Department Care Team (Latest Contact Info) Description 08/15/2022 Travel Social History Tobacco Use Types Packs/Day [...] EST Office Visit Hematology/Oncolog y at [address] [phone] Deyvi Ibrahim MD [facility] DR HEMATOLOGY [place] [address] Isabel Berry APRN [facility] [place] [address] 08/05/2024 12:00 PM EST Infusion Hematology Oncology at [address] [phone] 08/27/2024 10:00 AM EST Hospital Encounter [place] [phone] Gulshan Elder MD [facility] [place] [address] 08/27/2024 10:00 AM EST Anesthesia [place] [phone] Swati Gonzalez MD [facility] DR [place] [address] 08/27/2024 10:00 AM EST - 08/27/2024 11:00 AM EST [place] [phone] Gulshan Elder MD [facility] [place] [address] EGD, UPPER GI ENDOSCOPY (WRVU 2.09) Scheduled [...] on filedocumented in this encounter Care Teams Connection Worker Relationship Specialty Start Date End Date Yoni Ramírez MD [address] [place] [phone] PCP - General 07/05/10 documented as of this encounter
--- OUTSIDE RECORDS SUMMARY | 2024-07-31 18:41 | XMS_ITS | Encounter Summary ---
Author Organization [facility] [place] [address] Care Team Providers Care Library Science Instructor Name Role Phone Yoni Ramírez MD Primary Care Provider Encounter Details Date Type Department Care Team (Late st Contact Info) Description 03/13/2023 11:30 AM EDT Office Visit Hematology/Oncology at [address] [phone] Jojo Williamson, PAPER CUTTING MACHINE OPERATOR Malignant neoplasm of prostate Social History Tobacco [...] Sign Reading Time Taken Comments Blood Pressure 174/96 03/13/2023 11:27 AM EDT Pulse 80 03/13/2023 11:27 AM EDT Temperature 36.5 ??C (97.7 ??F) 03/13/2023 11:27 AM E DT Respiratory Rate 18 03/13/2023 11:27 AM EDT Oxygen Saturation 100% 03/13/2023 11:27 AM EDT Inhaled Oxygen Concentration - - Weight 106.6 kg (235 lb) 03/13/2023 11:27 AM EDT Height 175.3 cm (5' 9.02) 03/13/2023 11:27 AM E DT Body Mass Index 34.69 03/13/2023 11:27 AM EDT documented in this encounter Patient Instructions * Patient Instructions* Jojo Williamson APRN - 03/13/2023 11:30 AM EDT He will return in 3 months with labs prior. 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 Enamorado for consultation [...] is urination has improved since TURP Interval history 03/13/23 seen in ED twice for headaches no cause found. Scans done did not reveal a cause. He is hypertensive and he feels that his vision is worse than it was a year ago. He wonders if this is contributing to his headaches. He is on metoprolol but his blood pressure has not come into normal range. He is hypocalcemic. Other than the headaches, his pain is stable.. He has no issues with his bowels or bladder. He denies any chest pain, shortness of breath and cough. His appetite isunchanged and weight is stable. He did not have his scans done yet. They are scheduled for next week. Interval history(12/19/21): Mr. Arreguin is in clinic for follow-up appointment for his prostate cancer and a lupron injection. 3 months ago. His last Lupron in July 2022. Overall, he feels well. Denies any new pain. Complains of hot flashes, but they are mild. Urination and bowel movements are normal. He did not have his labwork done and will to up to the hospital after his visit to get them done. PMH: Admission with diverticulitis/MARIAN, Hyperlipidemia, obesity, hypertension, [...] Anxiety Suboxone [Buprenorphine-Naloxone] Hives Lexapro [Escitalopram] Hives [place] odd Medications: Your Medications Accurate as of March 13, 2023 1:57 PM. If you have any questions, ask [...] TABLET BY MOUTH EVERY EVENING Refills: 0 clonazePAM 1 mg tablet Commonly known as: KlonoPIN TAKE 1 TABLET BY MOUTH EVERY NIGHT AND ONE-HALF TABLET EVERY MORNING Refills: 0 cloNIDine 0.1 mg tablet Commonly [...] 100 mg Refills: 0 naloxone 4 mg/actuation [place], Non-Aerosol Commonly known as: Narcan Narcan 4 [...] 0.4 mg nightly. 0.4 mg Refills: 0 Trintellix 10 mg tablet Take 10 mg by mouth daily. Generic drug: vortioxetine 10 mg Refills: 0 venlafaxine XR 37.5 mg ER 24 hr capsule Commonly known as: Effexor-XR Take 1 capsule by mouth daily. 37.5 mg Quantity: 30 capsule Refills: 3 Review of Systems: Constitutional: Negative for fever, [...] nodes normal Neurologic: Normal Vitals BP (!) 174/96 (Patient Position: Sitting) Pulse 80 Temp 36.5 ??C (97.7 ??F) (Temporal) Resp 18 Ht 175.3 cm (5' 9.02) Wt 106.6 kg (235 lb) SpO2 100% BMI 34.69 kg/m?? Pathology: 170 gene panel:TMPRSS2, ERG TMPRSS2- ERG fusion transcript 10/20/21 Bladder neck tumor and prostatic tissue, transurethral resection: Prostatic adenocarcinoma, grade group 4, Jj grade 4+4, involving 100% of the submitted tissue. INTERPRETATION Block Antibody Result (Positive/Negative) A-1 MLH1 Positive, intact nuclear staining MSH2 Positive, intact nuclear staining MSH6 Positive, intact nuclear staining PMS2 Positive, intact nuclear staining Interpretation: Labs: 03/11/23 WBC 6.6 H/H 11.8/35.4 Plts 313 [...] hemoglobin 13.5, platelet count 265. PSA testosteron 12/2022 0.03 07/19/23 0.06 <7.0 04/25/22 0.08 <7.0 02/28/2022 0.90 <7.0 01/31/22 0.95 17 12/19/21 3.02 11/02/21 1.79 3.29 10/06/21 2.1 09/03/20 3.0 Imagin05/24/2022 CT abdomen pelvis result contrast: Impression: Bladder [...] and Plan: Diagnosis: Prostatic adenocarcinoma, grade 4, [place] 4+4, metastatic to regional lymph nodes Treatment: 12/27/21 degarelix 240 mg 01/31/22 switched to Lupron 22.5 mg every 3 months 02/23/22-May 2022 abiraterone and prednisone, abiraterone. Due to admission with kidney failure 09/21/22 completed [...] He would like to be treated at [facility] close to his home. 12/27/21 PSMA PET [...] labwork done and will go up to [facility] after his visit to have them [...] primary care provider. #Financial hardship: Follows with abatement worker. 03/13/23 he will have his lupron [...] lupron. He will increase his calcium supplement. Plan: 1. Lupron 22.5 mg every 3 months- give today 2. CBC, CMP, PSA, testosterone, 3. Next visit with Lupron injection in 3 months 4. Take 1200 mg Calcium daily along with vitamin D 5. Will call PCP re: B/P medication 6. Will make another appointment for an eye evaluation. Mr. Arreguin voiced understanding of the plan [...] EST Office Visit Hematology/Oncolog y at [address] [phone] Deyvi Ibrahim MD [facility] DR H[place] [address] Isabel Berry APRN [facility] [place] [address] 08/05/2024 12:00 PM EST Infusion Hematology Oncology at [address] [phone] 08/27/2024 10:00 AM EST Hospital En[place] [phone] Gulshan Elder MD [facility] [place] [address] 08/27/2024 10:00 AM EST Anesthesia [place] [phone] Swati Gonzalez MD [facility] [place] [address] 08/27/2024 10:00 AM EST - 08/27/2024 11:00 AM EST [place] [phone] Gulshan Elder MD [facility] [place] [address] EGD, UPPER GI ENDOSCOPY (WRVU 2.09) Scheduled [...] colon documented in this encounter Care Teams Library Science Instructor Relationship Specialty Start Date End Date Yoni Ramírez MD [address] [place] [id number] PCP - General 07/05/10 documented as of this encounter
--- OUTSIDE RECORDS SUMMARY | 2024-07-31 18:41 | XMS_ITS | Encounter Summary ---
Author Organization [facility] [place] [address] Care Team Providers Care Road Machine Runner Name Role Phone Yoni Ramírez MD Primary Care Provider Encounter Details Date Type Department Care Team (Late st Contact Info) Description 09/21/2022 Notes Only Radiation Oncology at [address] [phone] Yariel Ernandez MD [address] [place] [address] DR RADIATION ONCOLOGY [place], [place] [id number] Social History Tobacco Use Types Packs/Day Years [...] as of this encounter Progress Notes * Yariel Ernandez MD - 09/21/2022 11:59 PM EST Images from the original note were not included. [facility] Medicine Radiation Oncology Radiation Therapy Completion Note Patient ID ?? Patient name: Jeff Arreguin Date of : 1965 ? Referring: Dr Ibrahim ?? PCP: Yoni Ramírez MD ? Chief complaint: Cancer Staging Malignant neoplasm of prostate Staging form: Prostate, AJCC 8th Edition - Clinical: Stage ALYSSA (cT4, cN1, cM0, PSA: 3, Grade Group: 4) - Signed by Yariel Ernandez MD on 02/23/2022 ?? Jeff Arreguin is a 56 y.o. man diagnosed with node positive, locally advanced??prostate cancer s/p TURP.??MRI is concerning for YARELY, SVI and bladder neck invasion.? Treatment Details ?? Intent: Definitive (Curative) ?? Concurrent Therapy: [facility] ONCOLOGY (AMB) 12/27/2021 01/31/2022 04/25/2022 degarelix (Firmagon) SubQ 240 mg ? leuprolide (Lupron Depot) IM ?? 22.5 mg 22.5 mg ?? ONCBC[facility] ONCOLOGY (AMB) 07/18/2022 leuprolide (Lupron Depot) IM 22.5 mg ? Abiraterone- currently held per Dr. Ibrahim ?? Modality: ?? VMAT Initial Treatment Site Pelvis Prescribed Dose 45Gy in 25 fractions ? Boost Treatment site Prostate and Seminal vesicles Prescribed Dose 79.2 Gy in 44 fractions ? Start Date End Date Elapsed Days 05/15/22 09/21/22 128d ?? Clinical Course Treatment tolerance: With regard to side effects noted during radiotherapy, the patient tolerated treatment extremely well with no significant acute (Grade 3 or above) toxicity. However he missed several treatments due to exacerbations of his chronic nausea / vomiting syndrome. Treatment response: The patient's response to treatment was undetermined, as he was largely asymptomatic at the time ofpresentation. Future assessment will be determined via serial PSA surveillance. Follow up plan: Follow-up visit with Radiation Oncology in [facility] will be in 3 months for routine follow-up.He also has a visit with Dr Ibrahim 10/17/22 for continued management of systemic therapy. Jeff hasreceived instructions to call this office or seek the help of the local emergency room if any further problems should arise prior to followup. YARIEL ERNANDEZ MD 09/22/2022 ??? National Cancer [place] (NCI) Comprehensive Cancer Center ??? [place] Commission on Cancer (ACS Benjamin) Accredited Cancer Program ??? [employer] (ACR) Accredited Radiation Oncology Program documented in this encounter Plan of Treatment Upcoming Encounters Date Type Department Care Team (Latest Contact Info) Description 08/05/2024 11:30 AM EST Office Visit Hematology/Oncolog y at [address] [phone] Deyvi Ibrahim MD [facility] [place] [address] Isabel Berry APRN [facility] [place] [address] 08/05/2024 12:00 PM EST Infusion Hematology Oncology at [address] [phone] 08/27/2024 10:00 AM EST Hospital Encounter [place] [phone] Gulshan Elder MD [facility] [place] [address] 08/27/2024 10:00 AM EST Anesthesia [place] [phone] Swati Gonzalez MD [facility] [place] [address] 08/27/2024 10:00 AM EST - 08/27/2024 11:00 AM EST Surgery [place] [phone] Gulshan Elder MD [facility] [place] [address] EGD, UPPER GI ENDOSCOPY (WRVU 2.09) Scheduled [...] on filedocumented in this encounter Care Teams Road Machine Runner Relationship Specialty Start Date End Date Yoni Ramírez MD [address] [place] [phone] PCP - General 07/05/10 documented as of this encounter
--- OUTSIDE RECORDS SUMMARY | 2024-07-31 18:41 | XMS_ITS | Encounter Summary ---
Author Organization [facility] [place] [address] Care Team Providers Care Light Rail Signal Technician Name Role Phone Yoni Ramírez MD Primary Care Provider [phone] Reason for Visit * Reason Onset Date Comments Follow-up 03/21/2023 Re scan and PSA Encounter Details Date Type Department Care Team (Late st Contact Info) Description 03/21/2023 Telephone Hematology/Oncology at [address] [phone] Manav Dexter RN Follow-up (Re scan and PSA) Social History Tobacco Use Types Packs/Day Years [...] Telephone Encounter - Manav Dexter RN - 03/21/2023 4:37 PM EDT No results found at [facility]. Called and LM for Jeff L Quick to return call to discuss. ----- Message ----- From: Trisha Lopez RN Sent: 03/20/2023 12:00 AM EDT To: [facility] Hem Onc Nurse Subject: Bone scan Jeff was scheduled to have bone scan yesterday 03/19 at [facility]. Please look for the results and review with Jojo. He should have also had a PSA drawn. Please make sure that was done. Thanks Trisha documented in this encounter Plan of Treatment Upcoming Encounters Date Type Department Care Team (Latest Contact Info) Description 08/05/2024 11:30 AM EST Office Visit Hematology/Oncolog y at [address] [phone] Deyvi Ibrahim MD [facility] [place] [address] Isabel Berry APRN [facility] [place] [address] 08/05/2024 12:00 PM EST Infusion Hematology Oncology at [address] [phone] 08/27/2024 10:00 AM EST Hospital Encounter [place] [phone] Gulshan Elder MD [facility] [address] 08/27/2024 10:00 AM EST Anesthesia Event [place] [phone] Swati Gonzalez MD [facility] [place] [address] 08/27/2024 10:00 AM EST - 08/27/2024 11:00 AM EST Surgery [place] [phone] Gulshan Elder MD [facility] [place] [address] EGD, UPPER GI ENDOSCOPY (WRVU 2.09) Scheduled [...] on filedocumented in this encounter Care Teams Light Rail Signal Technician Relationship Specialty Start Date End Date Yoni Ramírez MD [address] [place] [address] PCP - General 07/05/10 documented as of this encounter
--- OUTSIDE RECORDS SUMMARY | 2024-07-31 18:41 | XMS_ITS | Encounter Summary ---
Author Organization [facility] [place] [address] Care Team Providers Care Speech And Language Specialist Name Role Phone Yoni Ramírez MD Primary Care Provider [phone] Encounter Details Date Type Department Care Team (Late st Contact Info) Description 04/09/2023 12:05 AM EDT Ancillary Procedure Radiology Library at [facility] [address] [place] [address] Yoni Ramírez MD [address] [place] [address] Social History Tobacco Use Types Packs/Day Years [...] place to sleep or slept in a mcfp (including now)? No 04/13/2022 Sex and Gender Information Value Date Recorded Sex Assigned at Not on file Gender Identity Not on file Sexual Orientation Not on file documented as of this encounter Plan of Treatment Upcoming Encounters Date Type Department Care Team (Latest Contact Info) Description 08/05/2024 11:30 AM EST Office Visit Hematology/Oncolog y at [address] [phone] Deyvi Ibrahim MD [facility] [place] [address] Isabel Berry APRN [facility] [place] [place] [address] 08/05/2024 12:00 PM EST Infusion Hematology Oncology at [address] [phone] 08/27/2024 10:00 AM EST Hospital Encounter [place] [phone] Gulshan Elder MD [facility] [place] [address] 08/27/2024 10:00 AM EST Anesthesia [place] [address] Swati Gonzalez MD [facility] [place] [address] 08/27/2024 10:00 AM EST - 08/27/2024 11:00 AM EST Surgery [place] [address] Gulshan Elder MD [facility] [place] [address] EGD, UPPER GI ENDOSCOPY (WRVU 2.09) Scheduled [...] FILM LIBRARY STORAGE ONLY NUCLEAR MEDICINE Routine 04/09/2023 12:05 AM EDT documented in this encounter Results * Film Library- Storage Only nuclear medicine (04/09/2023 12:05 AM EDT) Narrative [facility] - 04/10/2023 1:49 PM EDT This exam is auto-finalizing. It's purpose is for storage only. Yoni Ramírez MD G FILM LIBRARY ORD ERABLES Performing Organization Address City/State/[facility] Co de Phone Number [place], [place] documented in this encounter Visit Diagnoses Not on filedocumented in this encounter Care Teams Speech And Language Specialist Relationship Specialty Start Date End Date Yoni Ramírez MD [address] [place] [address] PCP - General 07/05/10 documented as of this encounter
--- OUTSIDE RECORDS SUMMARY | 2024-07-31 18:41 | XMS_ITS | Encounter Summary ---
Author Organization [facility] [place] [address] Care Team Providers Care Community Service Director Name Role Phone Yoni Ramírez MD Primary Care Provider [phone] Reason for Visit * Reason Onset Date Comments Follow-up 04/13/2023 Encounter Details Date Type Department Care Team (Late st Contact Info) Description 04/13/2023 Telephone Hematology/Oncology at [address] [phone] Earlene Casas RN Follow-up Social History Tobacco Use Types Packs/Day Years [...] Telephone Encounter - Earlene Casas RN - 04/13/2023 8:21 AM EDT Called Jeff back as called and left message stating PCP was stopping pain meds and wanted understanding in layman terms of where Jeff's cancer is at. Per Dr. 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 No visible cancer lesions on scans Let's call it remission. If he wants more details please schedule him and his for an appointment. I am not going to prescribe him any pain pills as his pain is not cancer related, so he has to stick with PCP or pain clinic/palliative care. Reviewed this with Jeff who is very happy with this. He does not want to come in and meet with Dr. Ibrahim. He will let his know. documented in this encounter Plan of Treatment Upcoming Encounters Date Type Department Care Team (Latest Contact Info) Description 08/05/2024 11:30 AM EST Office Visit Hematology/Oncolog y at [address] [phone] Deyvi Ibrahim MD [facility] HEMATOLOGY [place] [address] Isabel Berry APRN [facility] MEDICAL [place] [address] 08/05/2024 12:00 PM EST Infusion Hematology Oncology at [address] [phone] 08/27/2024 10:00 AM EST Hospital Encounter [place] [phone] Gulshan Elder MD [facility] [place] [address] 08/27/2024 10:00 AM EST Anesthesia [place] [phone] Swati Gonzalez MD [facility] [place] [address] 08/27/2024 10:00 AM EST - 08/27/2024 11:00 AM EST Surgery [place] [phone] Gulshan Elder MD [facility] [place] [address] EGD, UPPER GI ENDOSCOPY (WRVU 2.09) Scheduled [...] on filedocumented in this encounter Care Teams Community Service Director Relationship Specialty Start Date End Date Yoni Ramírez MD [address] [place] [address] PCP - General 07/05/10 documented as of this encounter
--- OUTSIDE RECORDS SUMMARY | 2024-07-31 18:41 | XMS_ITS | Encounter Summary ---
Author Organization [facility] [place] [address] Care Team Providers Care Reserves Clerk Name Role Phone Yoni Ramírez MD Primary Care Provider [phone] Reason for Visit * Reason Onset Date Comments Medication Refill 05/09/2023 venlafaxine Encounter Details Date Type Department Care Team (Late st Contact Info) Description 05/09/2023 Refill Hematology/Oncology at [address] [phone] Jojo Williamson, BANK REPRESENTATIVE Malignant neoplasm of prostate; Androgen deprivation therapy Social History Tobacco Use [...] Telephone Encounter - Manav Dexter RN - 05/09/2023 9:51 AM EDT Request for venlafaxine refill to [facility] in [facility] sent to provider to review and sign. documented in this encounter Plan of Treatment Upcoming Encounters Date Type Department Care Team (Latest Contact Info) Description 08/05/2024 11:30 AM EST Office Visit Hematology/Oncolog y at [address] [phone] Deyvi Ibrahim MD [facility] [place] [address] Isabel Berry APRN [facility] [place] [address] 08/05/2024 12:00 PM EST Infusion Hematology Oncology at [address] [phone] 08/27/2024 10:00 AM EST Hospital Encounter [place] [address] Gulshan Elder MD [facility] [place] [address] 08/27/2024 10:00 AM EST Anesthesia [place] [address] Swati Gonzalez MD [facility] [place] [address] 08/27/2024 10:00 AM EST - 08/27/2024 11:00 AM EST Surgery [place] [address] Gulshan Elder MD [facility] [place] [address] EGD, UPPER GI ENDOSCOPY (WRVU 2.09) Scheduled [...] Visit Diagnoses Diagnosis Malignant neoplasm of prostate Androgen deprivation therapy Encounter for therapeutic drug monitoring Abnormal CT of the abdomen Nonspecific (abnormal) findings on radiological and other examination of abdominal area, including retroperitoneum Esophagitis Esophagitis, unspecified Gastroesophageal reflux disease with esophagitis, unspecified whether hemorrhage Colitis Other and unspecified noninfectious gastroenteritis and colitis Screen for colon cancer Special screening for malignant neoplasms, colon documented in this encounter Care Teams Reserves Clerk Relationship Specialty Start Date End Date Yoni Ramírez MD [address] [place] [address] PCP - General 07/05/10 documented as of this encounter
--- OUTSIDE RECORDS SUMMARY | 2024-07-31 18:41 | XMS_ITS | Encounter Summary ---
Author Organization [facility] [place] [address] Care Team Providers Care Affirmative Action Specialist Name Role Phone Yoni Ramírez MD Primary Care Provider Reason for Visit * Reason Comments Injections lupron * Treatment/Therapy Plan Authorization (Routine) - Authorized Specialty Diagnoses / Procedures Referred By Contac t Referred To Contact Hematology and Oncology Diagnoses Malignant neoplasm of prostate Procedures TC LEUPROLIDE ACETATE 7.5MG, FOR DEPOST SUSPENSION (LUPRON DEPOT) [id number] LUPRON DEPOT Deyvi Ibrahim MD [address] [place] [address] [place] [address] Deyvi Ibrahim MD [address] [place] [address] DR [place] [address] Referral ID Status Reason Start Date Expiration Date V isits Requested Visits Authorized [id number] Authorized 08/13/2022 03/12/2024 99 99 Encounter Details Date Type Department Care Team (Late st Contact Info) Description 03/13/2023 12:00 PM EDT Infusion Hematology Oncology at [address] [phone] Malignant neoplasm of prostate Social History Tobacco [...] Progress Notes * Ann Ceron RN - 03/13/2023 12:00 PM EDT Infusion Note Diagnosis:Prostate Cancer Treatment: Lupron Injection Patient instructed on side effects of Lupron. Patient states understanding of teaching, Patient aware to call clinic with any questions or concerns. Plan: Return to clinic as scheduled. documented in this encounter Plan of Treatment Upcoming Encounters Date Type Department Care Team (Latest Contact Info) Description 08/05/2024 11:30 AM EST Office Visit Hematology/Oncolog y at [address] [phone] Deyvi Ibrahim MD [facility] HEMATOLOGY [place] [address] Isabel Berry APRN [facility] [place] [address] 08/05/2024 12:00 PM EST Infusion Hematology Oncology at [address] [phone] 08/27/2024 10:00 AM EST Hospital Encounter [place] [phone] Gulshan Elder MD [facility] DR [place] [address] 08/27/2024 10:00 AM EST Anesthesia [place] [phone] Swati Gonzalez MD [facility] DR ANESTHESIOLOGY [place] [address] 08/27/2024 10:00 AM EST - 08/27/2024 11:00 AM EST Surgery [place] [phone] Gulshan Elder MD [facility] [place] [address] EGD, UPPER GI ENDOSCOPY (WRVU 2.09) Scheduled [...] 22.5 mg, Intramuscular, ONCE, 1 dose, On Sun03/13/23 at 1245, Last injection site was... leuprolide IM injection site: L Gluteal (12/19/2022 3:10 PM) , Routine, This agent is restricted to outpatient use. Is this drug being given as an outpatient? Yes Given 03/13/2023 12:33 PM EDT 22.5 mg Right Gluteal documented in this encounter Care Teams Affirmative Action Specialist Relationship Specialty Start Date End Date Yoni Ramírez MD [address] [place] [address] PCP - General 07/05/10 documented as of this encounter
--- OUTSIDE RECORDS SUMMARY | 2024-07-31 18:41 | XMS_ITS | Encounter Summary ---
Author Organization [facility] Address [facility] [place] [address] Care Team Providers Care Dye Weigher Helper Name Role Phone Yoni Ramírez MD Primary Care Provider [phone] Encounter Details Date Type Department Care Team (Latest Contact Info) Description 03/13/2023 Travel Social History Tobacco Use Types Packs/Day [...] AM EST Office Visit Hematology/Oncolog y at [address] [phone] Deyvi Ibrahim MD [facility] DR [place] [address] Isabel Berry APRN [facility] [place] [address] 08/05/2024 12:00 PM EST Infusion Hematology Oncology at [address] [phone] 08/27/2024 10:00 AM EST Hospital En[place] [phone] Gulshan Elder MD [facility] [address] 08/27/2024 10:00 AM EST Anesthesia [place] [phone] Swati Gonzalez MD [facility] [place] [address] 08/27/2024 10:00 AM EST - 08/27/2024 11:00 AM EST [place] [phone] Gulshan Elder MD [facility] [address] EGD, UPPER GI ENDOSCOPY (WRVU 2.09) Scheduled Procedures Name Priority Associated Diagnoses Date/Ti ma EGD, UPPER GI ENDOSCOPY (WRVU 2.09) Abnormal [...] on filedocumented in this encounter Care Teams Dye Weigher Helper Relationship Specialty Start Date End Date Yoni Ramírez MD [address] [place] [address] PCP - General 07/05/10 documented as of this encounter
--- OUTSIDE RECORDS SUMMARY | 2024-07-31 18:41 | XMS_ITS | Encounter Summary ---
Author Organization [facility] [place] [address] Care Team Providers Care Concrete Buildings Assembler Name Role Phone Yoni Ramírez MD Primary Care Provider [phone] Encounter Details Date Type Department Care Team (Late st Contact Info) Description 2023 Telephone Hematology/Oncology at [address] [phone] Theresa Lay Social History Tobacco [...] place to sleep or slept in a half-way (including now)? No 04/13/2022 Sex and Gender Information Value Date Recorded Sex Assigned at Not on file Gender Identity Not on file Sexual Orientation Not on file documented as of this encounter Miscellaneous Notes * Telephone Encounter - Theresa Lay - 2023 11:38 AM EDT Called to see if his labs were done and about his up coming appt. Had to leave a message documented in this encounter Plan of Treatment Upcoming Encounters Date Type Department Care Team (Latest Contact Info) Description 08/05/2024 11:30 AM EST Office Visit Hematology/Oncolog y at [address] [phone] Deyvi Ibrahim MD [facility] DR HEMATOLOGY [place] [address] Isabel Berry APRN [facility] [place] [address] 08/05/2024 12:00 PM EST Infusion Hematology Oncology at [address] [phone] 08/27/2024 10:00 AM EST Hospital Encounter [place] [phone] Gulshan Elder MD [facility] [place] [address] 08/27/2024 10:00 AM EST Anesthesia [place] [address] Swati Gonzalez MD [facility] [place] [address] 08/27/2024 10:00 AM EST - 08/27/2024 11:00 AM EST Surgery [place] [phone] Gulshan Elder MD [facility] [place] [address] EGD, UPPER GI ENDOSCOPY (WRVU 2.09) Scheduled [...] on filedocumented in this encounter Care Teams Concrete Buildings Assembler Relationship Specialty Start Date End Date Yoni Ramírez MD [address] [place] [address] PCP - General 07/05/10 documented as of this encounter
--- OUTSIDE RECORDS SUMMARY | 2024-07-31 18:41 | XMS_ITS | Encounter Summary ---
Author Organization [facility] [place] [address] Care Team Providers Care Dyer Helper Name Role Phone Yoni Ramírez MD Primary Care Provider Encounter Details Date Type Department Care Team (Late st Contact Info) Description 05/29/2023 Telephone Hematology/Oncology at [address] [phone] Theresa Lay Social History Tobacco [...] * Telephone Encounter - Theresa Lay - 05/29/2023 3:58 PM EDT Patients called and said they needed to reschedule the appt the day and time did not work changed it to 06/12/23 documented in this encounter Plan of Treatment Upcoming Encounters Date Type Department Care Team (Latest Contact Info) Description 08/05/2024 11:30 AM EST Office Visit Hematology/Oncolog y at [address] [phone] Deyvi Ibrahim MD [facility] DR HEMATOLOGY [place] [address] Isabel Berry APRN [facility] [place] [address] 08/05/2024 12:00 PM EST Infusion Hematology Oncology at [address] [phone] 08/27/2024 10:00 AM EST Hospital Encounter G[place] [address] Gulshan Elder MD [facility] [place] [address] 08/27/2024 10:00 AM EST Anesthesia Event [place] [address] Swati Gonzalez MD [facility] [place] [address] 08/27/2024 10:00 AM EST - 08/27/2024 11:00 AM EST Surgery [place] [phone] Gulshan Elder MD [facility] [place] [address] EGD, UPPER GI ENDOSCOPY (WRVU 2.09) Scheduled [...] on filedocumented in this encounter Care Teams Dyer Helper Relationship Specialty Start Date End Date Yoni Ramírez MD [address] [place] [address] PCP - General 07/05/10 documented as of this encounter
--- OUTSIDE RECORDS SUMMARY | 2024-07-31 18:41 | XMS_ITS | Encounter Summary ---
Author Organization [facility] Address [facility] [place] [address] Care Team Providers Care Hand Tool Filer Name Role Phone Yoni Ramírez MD Primary Care Provider [phone] Encounter Details Date Type Department Care Team (Late st Contact Info) Description 09/26/2022 Orders Only [place] [address] Shea Oneill APRN [facility] [place] [address] Prostate cancer (Primary Dx) Social History Tobacco Use Types Packs/Day Years [...] EST Office Visit Hematology/Oncolog y at [address] [phone] Deyvi Ibrahim MD [facility] DR [place] [address] Isabel Berry APRN [facility] [place] [address] 08/05/2024 12:00 PM EST Infusion Hematology Oncology at [address] [phone] 08/27/2024 10:00 AM EST Hospital Encounter [place] [phone] Gulshan Elder MD [facility] [place] [address] 08/27/2024 10:00 AM EST Anesthesia [place] [phone] Swati Gonzalez MD [facility] [place] [address] 08/27/2024 10:00 AM EST - 08/27/2024 11:00 AM EST [place] [address] Gulshan Elder MD [facility] [place] [address] EGD, UPPER GI ENDOSCOPY (WRVU 2.09) Scheduled [...] of this encounter Visit Diagnoses Diagnosis Prostate cancer- Primary Malignant neoplasm of prostate Abnormal CT of the abdomen Nonspecific (abnormal) findings on radiological and other examination of abdominal area, including retroperitoneum Esophagitis Esophagitis, unspecified Gastroesophageal reflux disease with esophagitis, unspecified whether hemorrhage Colitis Other and unspecified noninfectious gastroenteritis and colitis Screen for colon cancer Special screening for malignant neoplasms, colon documented in this encounter Care Teams Hand Tool Filer Relationship Specialty Start Date End Date Yoni Ramírez MD [address] [place] [address] PCP - General 07/05/10 documented as of this encounter
--- OUTSIDE RECORDS SUMMARY | 2024-07-31 18:41 | XMS_ITS | Encounter Summary ---
Author Organization [facility] Address [facility] [place] [address] Care Team Providers Care Quality Management Nurse Name Role Phone Yoni Ramírez MD Primary Care Provider [phone] Encounter Details Date Type Department Care Team (Latest Contact Info) Description 09/14/2022 Travel Social History Tobacco Use Types Packs/Day [...] place to sleep or slept in a chcf (including now)? No 04/13/2022 Sex and Gender Information Value Date Recorded Sex Assigned at Not on file Gender Identity Not on file Sexual Orientation Not on file documented as of this encounter Plan of Treatment Upcoming Encounters Date Type Department Care Team (Latest Contact Info) Description 08/05/2024 11:30 AM EST Office Visit Hematology/Oncolog y at [address] [phone] Deyvi Ibrahim MD [facility] [place] [address] Isabel Berry APRN [facility] [place] [place] [address] 08/05/2024 12:00 PM EST Infusion Hematology Oncology at [address] [phone] 08/27/2024 10:00 AM EST Hospital Encounter [place] [phone] Gulshan Elder MD [facility] [place] [address] 08/27/2024 10:00 AM EST Anesthesia Event [place] [phone] Swati Gonzalez MD [facility] [place] [address] 08/27/2024 10:00 AM EST - 08/27/2024 11:00 AM EST Surgery [place] [phone] Gulshan Elder MD [facility] [place] [address] EGD, UPPER GI ENDOSCOPY (WRVU 2.09) Scheduled [...] on filedocumented in this encounter Care Teams Quality Management Nurse Relationship Specialty Start Date End Date Yoni Ramírez MD [address] [place] [address] PCP - General 07/05/10 documented as of this encounter
--- OUTSIDE RECORDS SUMMARY | 2024-07-31 18:41 | XMS_ITS | Encounter Summary ---
Author Organization [facility] Address [facility] [place] [address] Care Team Providers Care Meat Puller Name Role Phone Yoni Ramírez MD Primary Care Provider [phone] Encounter Details Date Type Department Care Team (Latest Contact Info) Description 12/19/2022 Travel Social History Tobacco Use Types Packs/Day [...] AM EST Office Visit Hematology/Oncolog y at [address] [phone] Deyvi Ibrahim MD [facility] DR HEMATOLOGY [place] [address] Isabel Berry APRN [facility] DR [place] [address] 08/05/2024 12:00 PM EST Infusion Hematology Oncology at [address] [phone] 08/27/2024 10:00 AM EST Hospital Encounter [place] [phone] Gulshan Elder MD [facility] [place] [address] 08/27/2024 10:00 AM EST Anesthesia Event [place] [phone] Swati Gonzalez MD [facility] DR ANESTHESIOLOGY [place] [address] 08/27/2024 10:00 AM EST - 08/27/2024 11:00 AM EST Surgery [place] [phone] Gulshan Elder MD [facility] [place] [address] EGD, UPPER GI ENDOSCOPY (WRVU 2.09) Scheduled [...] on filedocumented in this encounter Care Teams Meat Puller Relationship Specialty Start Date End Date Yoni Ramírez MD [address] [place] [address] PCP - General 07/05/10 documented as of this encounter
--- OUTSIDE RECORDS SUMMARY | 2024-07-31 18:41 | XMS_ITS | Encounter Summary ---
Author Organization [facility] [place] [address] Care Team Providers Care Grease Monkey Name Role Phone Yoni Ramírez MD Primary Care Provider [phone] Encounter Details Date Type Department Care Team (Late st Contact Info) Description 09/12/2022 Notes Only Radiation Oncology at [address] [phone] Makenna Sorto, [facility] OFFICE OF CARE MANAGEMENT Social History Tobacco Use Types Packs/Day Years [...] as of this encounter Progress Notes * Makenna Sorto MSW - 09/12/2022 1:20 PM EST Request from [employer] for assistance with a gas card. She reports they struggle with transportation costs. She indicated he has 3 more RT treatments. They have income from [employer] income and is now working. Assisted them with 1/$25 gas card from the [employer]. Financial resources Transportation resources documented in this encounter Plan of Treatment Upcoming Encounters Date Type Department Care Team (Latest Contact Info) Description 08/05/2024 11:30 AM EST Office Visit Hematology/Oncolog y at [address] [phone] Deyvi Ibrahim MD [facility] DR HEMATOLOGY [place] [address] Isabel Berry APRN [facility] [place] [address] 08/05/2024 12:00 PM EST Infusion Hematology Oncology at [address] [phone] 08/27/2024 10:00 AM EST Hospital En[place] [address] Gulshan Elder MD [facility] DR [place] [address] 08/27/2024 10:00 AM EST Anesthesia [place] [phone] Swati Gonzalez MD [facility] DR ANESTHESI[place]Y [place] [address] 08/27/2024 10:00 AM EST - 08/27/2024 11:00 AM EST [place] [phone] Gulshan Elder MD [facility] [place] [address] EGD, UPPER GI ENDOSCOPY (WRVU 2.09) Scheduled [...] on filedocumented in this encounter Care Teams Grease Monkey Relationship Specialty Start Date End Date Yoni Ramírez MD [address] [place] [phone] PCP - General 07/05/10 documented as of this encounter
--- OUTSIDE RECORDS SUMMARY | 2024-07-31 18:41 | XMS_ITS | Encounter Summary ---
Author Organization [facility] Address [facility] [place] [address] Care Team Providers Care Lobby Attendant Name Role Phone Yoni Ramírez MD Primary Care Provider [phone] Encounter Details Date Type Department Care Team (Latest Contact Info) Description 08/02/2022 Travel Social History Tobacco Use Types Packs/Day [...] EST Office Visit Hematology/Oncolog y at [address] [phone] Deyvi Ibrahim MD [facility] DR HEMATOLOGY [place] [address] Isabel Berry APRN [facility] [place] [address] 08/05/2024 12:00 PM EST Infusion Hematology Oncology at [address] [phone] 08/27/2024 10:00 AM EST Hospital Encounter [place] [phone] Gulshan Elder MD [facility] [place] [address] 08/27/2024 10:00 AM EST Anesthesia Event [place] [phone] Swati Gonzalez MD [facility] [place] [address] 08/27/2024 10:00 AM EST - 08/27/2024 11:00 AM EST Surgery [place] [phone] Gulshan Elder MD [facility] [place] [address] EGD, UPPER GI ENDOSCOPY (WRVU 2.09) Scheduled Procedures Name Priority Associated Diagnoses Date/Ti pa EGD, UPPER GI ENDOSCOPY (WRVU 2.09) Abnormal [...] on filedocumented in this encounter Care Teams Lobby Attendant Relationship Specialty Start Date End Date Yoni Ramírez MD [address] [place] [address] PCP - General 07/05/10 documented as of this encounter
--- OUTSIDE RECORDS SUMMARY | 2024-07-31 18:41 | XMS_ITS | Encounter Summary ---
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); Androgen deprivation therapy Social History Tobacco Use [...] Sign Reading Time Taken Comments Blood Pressure 173/94 12/19/2022 2:20 PM EDT Pulse 91 12/19/2022 2:20 PM EDT Temperature 36.5 ??C (97.7 ??F) 12/19/2022 2:20 PM ED T Respiratory Rate 16 12/19/2022 2:20 PM EDT Oxygen Saturation 100% 12/19/2022 2:20 PM EDT Inhaled Oxygen Concentration - - Weight 105.2 kg (232 lb) 12/19/2022 2:20 PM EDT Height 175.3 cm (5' 9.02) 12/19/2022 2:20 PM ED T Body Mass Index 34.24 12/19/2022 2:20 PM EDT documented in this encounter Progress Notes * Deyvi Ibrahim MD - 12/19/2022 2:00 PM EDT Images from the original note were not included. Diagnosis: Prostatic adenocarcinoma, 4, Zamora 4+4, with pelvic lymph node metastases PSA 2.1 CC:I feel fine HPI:Jeff Arreguin is 57 y.o.M refereed by Dr. Enamorado [...] was consistent with prostatic adenocarcinoma grade 4, Zamora 4+4 He complains of low back pain and perineal pain. He is urination has improved since TURP Interval history(12/19/21): Mr. Arreguin is in clinic [...] and ovarian cancer Allergies: Allergies Allergen Reactions ??? Ephedrine Anxiety ??? Suboxone [Buprenorphine-Naloxone] Hives ??? Lexapro [Escitalopram] Hives Lorena odd Medications: Your Medications Accurate as of December 19, 2022 2:25 PM. If you have any questions, ask your nurse or doctor. Continued medications with new dosing Dose Details Calcium Citrate-Vitamin D3 315 mg-6.25 mcg (250 unit) Tablet Take 2 tablets by mouth 3 times daily. What changed: ?? how much to take ?? when to take this 2 tablet Refills: [...] 4 times daily. 4 mg Refills: 0 naloxone 4 mg/actuation [place], Non-Aerosol Commonly known as: Narcan Narcan 4 [...] nodes normal Neurologic: Normal Vitals BP (!) 173/94 (Patient Position: Sitting) Pulse 91 Temp 36.5 ??C (97.7 ??F) (Temporal) Resp 16 Ht 175.3 cm (5' 9.02) Wt 105.2 kg (232 lb) SpO2 100% BMI 34.24 kg/m?? Pathology: 170 gene panel:TMPRSS2, ERG TMPRSS2- ERG fusion transcript 10/20/21 Bladder neck tumor and prostatic tissue, transurethral resection: ?Prostatic adenocarcinoma, grade group 4, Zamora ? grade 4+4, involving 100% of the submitted ? tissue. INTERPRETATION Block ? Antibody ? Result (Positive/Negative) A-1 ?MLH1 ?Positive, intact nuclear staining ?MSH2 ?Positive, intact nuclear staining ?MSH6 ?Positive, intact nuclear staining ?PMS2 ?Positive, intact nuclear staining Interpretation: Labs: 10/27/2022 BUN 17, creatinine 1.0, calcium 9.0, [...] hemoglobin 13.5, platelet count 265. PSA testosteron 07/19/23 0.06 <7.0 04/25/22 0.08 <7.0 02/28/2022 [...] metastases. 3. No distant sites of metastasis. ?? 10/27/21 pelvic MRI IMPRESSION ? Seminal vesicle involvement:Yes Lymphadenopathy:No Sphincter involvement:No Bladder [...] He would like to be treated at [facility] close to his home. 12/27/21 PSMA PET [...] rufina metastases. No distant sites of metastasis. ?? I will refill Jeff to our radiation [...] labwork done and will go up to [facility] after his visit to have them done. [...] primary care provider. 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 Plan: 1. Lupron 22.5 mg every 3 months- give today 2. CBC, CMP, PSA, testosterone, CT CAP and bone scan 1-2 weeks prior next appointment 3. Next visit with Lupron injection in 3 months Mr. Arreguin voiced understanding [...] EST Office Visit Hematology/Oncolog y at [address] [phone] Deyvi Ibrahim MD [facility] DR [place] [address] Isabel Berry APRN [facility] [place] [address] 08/05/2024 12:00 PM EST Infusion Hematology Oncology at [address] [phone] 08/27/2024 10:00 AM EST Hospital Encounter [place] [phone] Gulshan Elder MD [facility] [place] [address] 08/27/2024 10:00 AM EST Anesthesia [place] [phone] Swati Gonzalez MD [facility] [place] [address] 08/27/2024 10:00 AM EST - 08/27/2024 11:00 AM EST Surgery [place] [phone] Gulshan Elder MD [facility] [place] [address] EGD, UPPER GI ENDOSCOPY (WRVU 2.09) Scheduled [...] Diagnosis Prostate cancer metastatic to intrapelvic lymph node- Primary Androgen deprivation therapy Encounter for therapeutic drug monitoring Abnormal CT of the abdomen Nonspecific (abnormal) findings on radiological and other examination of abdominal area, including retroperitoneum Esophagitis Esophagitis, unspecified Gastroesophageal reflux disease with esophagitis, unspecified whether hemorrhage Colitis Other and unspecified noninfectious gastroenteritis and colitis Screen for colon cancer Special screening for malignant neoplasms, colon documented in this encounter Care Teams Forging Machine Hand Relationship Specialty Start Date End Date Yoni Ramírez MD [address] [place] [phone] PCP - General 07/05/10 documented as of this encounter
--- OUTSIDE RECORDS SUMMARY | 2024-07-31 18:41 | XMS_ITS | Encounter Summary ---
Author Organization [facility] [place] [address] Care Team Providers Care Golf Professional Name Role Phone Yoni Ramírez MD Primary Care Provider [phone] Encounter Details Date Type Department Care Team (Late st Contact Info) Description 08/18/2022 1:15 PM EST Office Visit Radiation Oncology at [address] [phone] Yariel Ernandez MD [address] [place] [address] DR RADIATION ONCOLOGY [place], [place] [id number] Malignant neoplasm of prostate Social History Tobacco [...] Sign Reading Time Taken Comments Blood Pressure 132/84 08/18/2022 1:02 PM EST Pulse 91 08/18/2022 1:02 PM EST Temperature 36.4 ??C (97.5 ??F) 08/18/2022 1:02 PM ES T Respiratory Rate 16 08/18/2022 1:02 PM EST Oxygen Saturation 98% 08/18/2022 1:02 PM EST Inhaled Oxygen Concentration - - Weight 99.6 kg (219 lb 9.6 oz) 08/18/2022 1:02 P M EST Height - - Body Mass Index 32.41 07/18/2022 3:16 PM EST documented in this encounter Progress Notes * Yariel Ernandez MD - 08/18/2022 1:15 PM EST Images from the original note were not included. [facility] Medicine Radiation Oncology Radiation Oncology On-treatment Visit [...] Treatment Details Intent: Definitive (Curative) [facility] 12/27/2021 01/31/2022 04/25/2022 degarelix (Firmagon) SubQ 240 mg leuprolide (Lupron Depot) IM 22.5 mg 22.5 mg [facility] ONCOLOGY (AMB) 07/18/2022 leuprolide (Lupron Depot) IM 22.5 mg Abiraterone- currently held per Dr. Ibrahim Modality: VMAT Initial Treatment Site Pelvis Prescribed Dose 45Gy in 25 fractions Boost Treatment site Prostate and Seminal vesicles Prescribed Dose 79.2 Gy in 44 fractions Current Dose: 68.4 Gy in 38 fractions Interval Clinical Course General: Feeling well today. Ongoing acute on chronic nausea at baseline is not bothersome this week. : No frequency or urgency. Nocturia 1-2x/nt per baseline. None last night. Taking Aleve 1 tab BID, flomax x [...] confined to bed or chair Medications Medications 08/18/22 1306 Medication Sig Taking? amitriptyline (Elavil) 10 mg Tablet Yes cloNIDine (Catapres) 0.1 mg Tablet Take 0.1 mg by mouth 2 times daily. Yes venlafaxine XR (Effexor-XR) 37.5 mg Capsule, Sust. Release 24 hr Take 1 capsule by mouth daily. Yes vortioxetine (Trintellix) 10 mg Tablet Take 10 mg by mouth daily. Yes HYDROmorphone (Dilaudid) 4 mg Tablet Take 4 mg by mouth 4 times daily. Yes aspirin EC 81 mg Tablet, Delayed Release (E.C.) Take 1 tablet by mouth every evening. Yes tamsulosin (Flomax) 0.4 mg Capsule 0.4 mg nightly. Yes prochlorperazine (Compazine) [address] 25 mg rectally every 12 hours as needed. Yes potassium chloride (K-Tab) 20 mEq Tablet Sustained Release daily as needed. Yes pantoprazole EC (Protonix) 40 mg Tablet, Delayed Release (E.C.) daily as needed. Yes naloxone (Narcan) 4 mg/actuation [place], Non-Aerosol Narcan 4 mg/actuation nasal spray Take 1 spray as needed by nasal route. Yes atorvastatin (Lipitor) 20 mg Tablet TAKE ONE TABLET BY MOUTH EVERY EVENING Yes acetaminophen (TYLENOL) 500 mg Tablet Take 2 tablets by mouth every 6 hours as needed for Pain. Yes Calcium Citrate-Vitamin D3 315-250 mg-unit Tablet Take 2 tablets by mouth 3 times daily. Patient taking differently: Take 1 tablet by mouth daily. Yes ondansetron (ZOFRAN-ODT) 4 mg Tablet, Rapid Dissolve Take 4 mg by mouth every 8 hours as needed forNausea. Yes clonazePAM (KlonoPIN) 1 mg Tablet TAKE 1 TABLET BY MOUTH EVERY NIGHT AND ONE- HALF TABLET EVERY MORNING Exam Vitals: BP 132/84 (Patient Position: Sitting) Pulse 91 Temp 36.4 ??C (97.5 ??F) (Temporal) Resp 16 Wt 99.6 kg (219 lb 9.6 oz) SpO2 98% BMI 32.41 kg/m?? General: Appears well, in no distress Imaging/Labs [...] defined types were placed in this encounter. ??? National Cancer [place] (NCI) Comprehensive Cancer Center ??? [employer] Commission on Cancer (ACS Benjamin) Accredited Cancer Program ??? [employer] (ACR) Accredited Radiation Oncology Program documented in this encounter Plan of Treatment Upcoming Encounters Date Type Department Care Team (Latest Contact Info) Description 08/05/2024 11:30 AM EST Office Visit Hematology/Oncolog y at [address] [phone] Deyvi Ibrahim MD [facility] DR HEMATOLOGY [place] [address] Isabel Berry APRN [facility] [place] [address] 08/05/2024 12:00 PM EST Infusion Hematology Oncology at [address] [phone] 08/27/2024 10:00 AM EST Hospital En[place] [phone] Gulshan Elder MD [facility] [place] [address] 08/27/2024 10:00 AM EST Anesthesia [place] [phone] Swati Gonzalez MD [facility] DR [place] [address] 08/27/2024 10:00 AM EST - 08/27/2024 11:00 AM EST [place] [phone] Gulshan Elder MD [facility] [place] [address] EGD, UPPER GI ENDOSCOPY (WRVU 2.09) Scheduled [...] colon documented in this encounter Care Teams Golf Professional Relationship Specialty Start Date End Date Yoni Ramírez MD [address] [place] [address] PCP - General 07/05/10 documented as of this encounter
--- OUTSIDE RECORDS SUMMARY | 2024-07-31 18:41 | XMS_ITS | Encounter Summary ---
Author Organization [facility] [place] [address] Care Team Providers Care Filter Helper Name Role Phone Yoni Ramírez MD Primary Care Provider [phone] Reason for Visit * Reason Onset Date Comments Follow-up 04/10/2023 Scan results Encounter Details Date Type Department Care Team (Late st Contact Info) Description 04/10/2023 Telephone Hematology/Oncology at [address] [phone] Earlene Casas, TODD Follow-up (Scan results) Social History Tobacco Use Types Packs/Day Years [...] Telephone Encounter - Earlene Casas RN - 04/10/2023 3:42 PM EDT Called Jeff per Dr. Ibrahim let him know Everything looks good. Stable CT scan and no metastaseson bone scan . Jeff appreciated the call. documented in this encounter Plan of Treatment Upcoming Encounters Date Type Department Care Team (Latest Contact Info) Description 08/05/2024 11:30 AM EST Office Visit Hematology/Oncolog y at [address] [phone] Deyvi Ibrahim MD [facility] HEMATOLOGY [place] [address] Isabel Berry APRN [facility] [place] [address] 08/05/2024 12:00 PM EST Infusion Hematology Oncology at [address] [phone] 08/27/2024 10:00 AM EST Hospital [place] [address] Gulshan Elder MD [facility] [place] [address] 08/27/2024 10:00 AM EST Anesthesia [place] [phone] Swati Gonzalez MD [facility] DR ANESTHESI[place]Y [place] [address] 08/27/2024 10:00 AM EST - 08/27/2024 11:00 AM EST [place] [phone] Gulshan Elder MD [facility] DR [place] [address] EGD, UPPER GI ENDOSCOPY (WRVU 2.09) Scheduled [...] on filedocumented in this encounter Care Teams Filter Helper Relationship Specialty Start Date End Date Yoni Ramírez MD [address] [place] [address] PCP - General 07/05/10 documented as of this encounter
--- OUTSIDE RECORDS SUMMARY | 2024-07-31 18:41 | XMS_ITS | Encounter Summary ---
Author Organization [facility] Address [facility] [place] [address] Care Team Providers Care Railcar Mechanic Name Role Phone Yoni Ramírez MD Primary Care Provider Reason for Visit * Reason Onset Date Comments Medication Refill 01/04/2023 Encounter Details Date Type Department Care Team (Late st Contact Info) Description 01/04/2023 Refill Hematology/Oncology at [address] [phone] Deyvi Ibrahim MD [facility] [place] [address] Malignant neoplasm of prostate; Androgen deprivation therapy [...] Telephone Encounter - Stephanie Rodriguez RN - 01/04/2023 4:15 PM EDT ?? ----- Message ----- From: Gina Garces Sent: 01/04/2023 ?? 2:00 PM EDT To: [facility] Onc Nurse Jeff's Lianna called looking for his refill on his ??venlafaxine XR (Effexor-XR) 37.5 mg Capsule, Sust. Release 24 hr, Please send to the [facility] in [facility] Best call back number [phone] Received prescription refill request via above request. Review of chart suggests that this is an appropriate refill request. Prescription pended and routedto Dr. Ibrahim for review and approval, if agreed. documented in this encounter Plan of Treatment Upcoming Encounters Date Type Department Care Team (Latest Contact Info) Description 08/05/2024 11:30 AM EST Office Visit Hematology/Oncolog y at [address] [phone] Deyvi Ibrahim MD [facility] [place] [address] Isabel Berry APRN [facility] [place] [address] 08/05/2024 12:00 PM EST Infusion Hematology Oncology at [address] [phone] 08/27/2024 10:00 AM EST Hospital Encounter [place] [phone] Gulshan Elder MD [facility] [place] [address] 08/27/2024 10:00 AM EST Anesthesia Event [place] [phone] Swati Gonzalez MD [facility] [place] [address] 08/27/2024 10:00 AM EST - 08/27/2024 11:00 AM EST Surgery [place] [phone] Gulshan Elder MD [facility] [place] [address] EGD, UPPER GI ENDOSCOPY (WRVU 2.09) Scheduled [...] colon documented in this encounter Care Teams Railcar Mechanic Relationship Specialty Start Date End Date Yoni Ramírez MD [address] [place] [address] PCP - General 07/05/10 documented as of this encounter
--- OUTSIDE RECORDS SUMMARY | 2024-07-31 18:41 | XMS_ITS | Encounter Summary ---
Author Organization [facility] Address [facility] [place] [address] Care Team Providers Care Wardrobe Image Consultant Name Role Phone Yoni Ramírez MD Primary Care Provider [phone] Encounter Details Date Type Department Care Team (Latest Contact Info) Description 08/04/2022 Travel Social History Tobacco Use Types Packs/Day [...] AM EST Office Visit Hematology/Oncolog y at [address] [phone] Deyvi Ibrahim MD [facility] DR [place] [address] Isabel Berry APRN [facility] [place] [address] 08/05/2024 12:00 PM EST Infusion Hematology Oncology at [address] [phone] 08/27/2024 10:00 AM EST Hospital Encounter [place] [phone] Gulshan Elder MD [facility] [place] [address] 08/27/2024 10:00 AM EST Anesthesia Event [place] [phone] Swati Gonzalez MD [facility] [place] [address] 08/27/2024 10:00 AM EST - 08/27/2024 11:00 AM EST Surgery [place] [phone] Gulshan Elder MD [facility] [place] [address] EGD, UPPER GI ENDOSCOPY (WRVU 2.09) Scheduled Procedures Name Priority Associated Diagnoses Date/Ti al EGD, UPPER GI ENDOSCOPY (WRVU 2.09) Abnormal [...] filedocumented in this encounter Care Teams Wardrobe Image Consultant Relationship Specialty Start Date End Date Yoni Ramírez MD [address] [place] [address] PCP - General 07/05/10 documented as of this encounter
--- OUTSIDE RECORDS SUMMARY | 2024-07-31 18:41 | XMS_ITS | Encounter Summary ---
Author Organization [facility] Address [facility] [place] [address] Care Team Providers Care Nursing Support Worker Name Role Phone Yoni Ramírez MD Primary Care Provider [phone] Encounter Details Date Type Department Care Team (Latest Contact Info) Description 09/20/2022 Travel Social History Tobacco Use Types Packs/Day [...] AM EST Office Visit Hematology/Oncolog y at [address] [phone] Deyvi Ibrahim MD [facility] DR [place] [address] Isabel Berry APRN [facility] [place] [address] 08/05/2024 12:00 PM EST Infusion Hematology Oncology at [address] [phone] 08/27/2024 10:00 AM EST Hospital En[place] [phone] Gulshan Elder MD [facility] [place] [address] 08/27/2024 10:00 AM EST Anesthesia [place] [phone] Swati Gonzalez MD [facility] [place] [address] 08/27/2024 10:00 AM EST - 08/27/2024 11:00 AM EST [place] [phone] Gulshan Elder MD [facility] [place] [address] EGD, UPPER GI ENDOSCOPY (WRVU 2.09) Scheduled [...] on filedocumented in this encounter Care Teams Nursing Support Worker Relationship Specialty Start Date End Date Yoni Ramírez MD [address] [place] [address] PCP - General 07/05/10 documented as of this encounter
--- OUTSIDE RECORDS SUMMARY | 2024-07-31 18:42 | XMS_ITS | Encounter Summary ---
Author Organization [facility] Address [facility] [place] [address] Care Team Providers Care Supervisor Coil Winding Name Role Phone Yoni Ramírez MD Primary Care Provider [phone] Encounter Details Date Type Department Care Team (Latest Contact Info) Description 06/26/2022 Travel Social History Tobacco Use Types Packs/Day [...] EST Office Visit Hematology/Oncolog y at [address] [phone] Deyvi Ibrahim MD [facility] [address] [place] [address] Isabel Berry APRN [facility] [place] [address] 08/05/2024 12:00 PM EST Infusion Hematology Oncology at [address] [phone] 08/27/2024 10:00 AM EST Hospital En[place] [phone] Gulshan Elder MD [facility] [place] [address] 08/27/2024 10:00 AM EST Anesthesia [place] [phone] Swati Gonzalez MD [facility] [place] [address] 08/27/2024 10:00 AM EST - 08/27/2024 11:00 AM EST [place] [phone] Gulshan Elder MD [facility] [place] [address] EGD, UPPER GI ENDOSCOPY (WRVU 2.09) Scheduled [...] filedocumented in this encounter Care Teams Supervisor Coil Winding Relationship Specialty Start Date End Date Yoni Ramírez MD [address] [place] [address] PCP - General 07/05/10 documented as of this encounter
--- OUTSIDE RECORDS SUMMARY | 2024-07-31 18:42 | XMS_ITS | Encounter Summary ---
Author Organization [facility] Address [facility] [place] [address] Care Team Providers Care Director Emergency Department Name Role Phone Yoni Ramírez MD Primary Care Provider [phone] Encounter Details Date Type Department Care Team (Latest Contact Info) Description 07/11/2022 Travel Social History Tobacco Use Types Packs/Day [...] EST Office Visit Hematology/Oncolog y at [address] [phone] Deyvi Ibrahim MD [facility] [address] [place] [address] Isabel Berry APRN [facility] [place] [address] 08/05/2024 12:00 PM EST Infusion Hematology Oncology at [address] [phone] 08/27/2024 10:00 AM EST Hospital Encounter [place] [phone] Gulshan Elder MD [facility] [place] [address] 08/27/2024 10:00 AM EST Anesthesia Event [place] [phone] Swati Gonzalez MD [facility] [place] [address] 08/27/2024 10:00 AM EST - 08/27/2024 11:00 AM EST Surgery [place] [phone] Gulshan Elder MD [facility] [place] [address] EGD, UPPER GI ENDOSCOPY (WRVU 2.09) Scheduled Procedures Name Priority Associated Diagnoses Date/Ti mt EGD, UPPER GI ENDOSCOPY (WRVU 2.09) Abnormal [...] filedocumented in this encounter Care Teams Director Emergency Department Relationship Specialty Start Date End Date Yoni Ramírez MD [address] [place] [phone] PCP - General 07/05/10 documented as of this encounter
--- OUTSIDE RECORDS SUMMARY | 2024-07-31 18:42 | XMS_ITS | Encounter Summary ---
Author Organization [facility] [place] [address] Care Team Providers Care Infant Toddler Lead Teacher Name Role Phone Yoni Ramírez MD Primary Care Provider [phone] Reason for Visit * Reason Onset Date Comments Appointment 06/16/2022 Encounter Details Date Type Department Care Team (Late st Contact Info) Description 06/16/2022 Telephone Radiation Oncology at [address] [phone] Geovani Handy, RN Appointment Social History Tobacco Use Types Packs/Day Years [...] Telephone Encounter - Geovani Handy RN - 06/16/2022 4:41 PM EDT Called pt. In regards to missing radiation treatment for the 4th day in a row, no call no show. This RN had attempted the day before to reach him to no avail. Pt reports he was unaware that we did not know that he was not here as he was admitted to [facility] on 06/14 for observation and was just discharged last evening. Pt. States he had asked them to notify our clinic that he was inpatient and would not be able to come for his trx. Pt reports he was admitted for severe N/V and dehydration leading to AKF. Patient is home resting and recuperating today but is feeling better and hopes to be in for treatment on Sunday. This RN encouraged pt. To rest and stay hydrated and to call if he wasn't feeling better or if unable to make it to treatment on Sunday. Call placed to [facility] medical records to request records from recent visit. documented in this encounter Plan of Treatment Upcoming Encounters Date Type Department Care Team (Latest Contact Info) Description 08/05/2024 11:30 AM EST Office Visit Hematology/Oncolog y at [address] [phone] Deyvi Ibrahim MD [facility] [address] [place] [address] Isabel Berry APRN [facility] [place] [address] 08/05/2024 12:00 PM EST Infusion Hematology Oncology at [address] [phone] 08/27/2024 10:00 AM EST Hospital Encounter [place] [phone] Gulshan Elder MD [facility] [place] [address] 08/27/2024 10:00 AM EST Anesthesia [place] [phone] Swati Gonzalez MD [facility] [place] [address] 08/27/2024 10:00 AM EST - 08/27/2024 11:00 AM EST Surgery [place] [phone] Gulshan Elder MD [facility] [place] [address] EGD, UPPER GI ENDOSCOPY (WRVU 2.09) Scheduled Procedures Name Priority Associated Diagnoses Date/Ti nm EGD, UPPER GI ENDOSCOPY (WRVU 2.09) Abnormal [...] on filedocumented in this encounter Care Teams Infant Toddler Lead Teacher Relationship Specialty Start Date End Date Yoni Ramírez MD [address] [place] [address] PCP - General 07/05/10 documented as of this encounter
--- OUTSIDE RECORDS SUMMARY | 2024-07-31 18:42 | XMS_ITS | Encounter Summary ---
Author Organization [facility] [place] [address] Care Team Providers Care Mental Health Advanced Practice Nurse Name Role Phone Yoni Ramírez MD Primary Care Provider [phone] Reason for Visit * Reason Onset Date Comments Follow-up 07/25/2022 labs Encounter Details Date Type Department Care Team (Late st Contact Info) Description 07/25/2022 Telephone Hematology/Oncology at [address] [phone] Earlene Casas, TODD Follow-up (labs) Social History Tobacco Use Types Packs/Day Years [...] Telephone Encounter - Earlene Casas RN - 07/25/2022 10:10 AM EST Labs from 07/18/22 look good per rocio cox NP. PSA down to 0.06. Left message for pt about this he will call with any questions. documented in this encounter Plan of Treatment Upcoming Encounters Date Type Department Care Team (Latest Contact Info) Description 08/05/2024 11:30 AM EST Office Visit Hematology/Oncolog y at [address] [phone] Deyvi Ibrahim MD [facility] [place] [address] Isabel Berry APRN [facility] [place] [place] [address] 08/05/2024 12:00 PM EST Infusion Hematology Oncology at [address] [phone] 08/27/2024 10:00 AM EST Hospital Encounter [place] [address] Gulshan Elder MD [facility] [place] [address] 08/27/2024 10:00 AM EST Anesthesia Event [place] [address] Swati Gonzalez MD [facility] [place] [address] 08/27/2024 10:00 AM EST - 08/27/2024 11:00 AM EST Surgery [place] [phone] Gulshan Elder MD [facility] [place] [place] [address] EGD, UPPER GI ENDOSCOPY (WRVU 2.09) Scheduled [...] on filedocumented in this encounter Care Teams Mental Health Advanced Practice Nurse Relationship Specialty Start Date End Date Yoni Ramírez MD [address] [place] [address] PCP - General 07/05/10 documented as of this encounter
--- OUTSIDE RECORDS SUMMARY | 2024-07-31 18:42 | XMS_ITS | Encounter Summary ---
Author Organization [facility] [place] [address] Care Team Providers Care Assistant Account Manager Name Role Phone Yoni Ramírez MD Primary Care Provider Encounter Details Date Type Department Care Team (Late st Contact Info) Description 05/30/2022 Telephone Radiation Oncology at [address] [phone] Geovani Handy RN Social History [...] Telephone Encounter - Geovani Handy RN - 05/30/2022 11:51 AM EDT Images from the original note were not included. This RN called and spoke to patients as Jeff was in the shower. Patient had spoken to yesterday and was aware already to stop taking the abiraterone and prednisone. Lianna padilla patient stated he felt strange today, nauseated, head felt funny and has diarrhea. She is unsure if he will feel well enough for his treatment. When asked she said he is able to keep fluids down and will try to keep him hydrated. She will call us back later to let us know how his symptoms are and weather or not he will be having his treatment. Deyvi Ibrahim MD to Yariel Ernandez MD ??? [facility] Chemo Triage ??? Earlene Casas, TODD ??? Tia Tam MD ?? 05/29/22 4:46 PM Thanks Deyvi Jerome Nursing: Please call the patinet and ask to hold abiraterone and prednsione ??until he sees us ??with ahecsy17/25. Thank you, Deyvi ?? Yariel Ernandez MD to [facility] Rad Onc Nurse ??? Tia Tam MD ??? Deyvi Ibrahim MD ?? 05/29/22 11:44 AM Yes but I h ave CCed Dr Ibrahim in case adjustment or holding zytiga is necessary given recent admission for n/v, dehydration and acute kidney injury (now resolved s/p hydration) Jamila Peralta, RN to Yraiel Ernandez MD ??? Tia Tam MD ?? 05/29/22 9:26 AM Ok for patient to resume xrt? Jamila Rdz RN ?? 05/29/22 9:26 AM Note Background: Please see [facility] discharge information filed in Media section of chart. ?? Left message on [facility] voice mail with request for call back with status update documented in this encounter Plan of Treatment Upcoming Encounters Date Type Department Care Team (Latest Contact Info) Description 08/05/2024 11:30 AM EST Office Visit Hematology/Oncolog y at [address] [phone] Deyvi Ibrahim MD [facility] HEMATOLOGY [place] [address] Isabel Berry APRN [facility] [place] [address] 08/05/2024 12:00 PM EST Infusion Hematology Oncology at [address] [phone] 08/27/2024 10:00 AM EST Hospital Encounter [place] [phone] Gulshan Elder MD [facility] [place] [address] 08/27/2024 10:00 AM EST Anesthesia Event [place] [phone] Swati Gonzalez MD [facility] DR [place] [address] 08/27/2024 10:00 AM EST - 08/27/2024 11:00 AM EST Surgery [place] [address] Gulshan Elder MD [facility] [place] [address] EGD, UPPER GI ENDOSCOPY (WRVU 2.09) Scheduled [...] on filedocumented in this encounter Care Teams Assistant Account Manager Relationship Specialty Start Date End Date Yoni Ramírez MD [address] [place] [phone] PCP - General 07/05/10 documented as of this encounter
--- OUTSIDE RECORDS SUMMARY | 2024-07-31 18:42 | XMS_ITS | Encounter Summary ---
Author Organization [facility] Address [facility] [place] [address] Care Team Providers Care Eyeglass Frames Inspector Name Role Phone Yoni Ramírez MD Primary Care Provider [phone] Encounter Details Date Type Department Care Team (Latest Contact Info) Description 06/21/2022 Travel Social History Tobacco Use Types Packs/Day [...] AM EST Office Visit Hematology/Oncolog y at [address] [phone] Deyvi Ibrahim MD [facility] DR HEMATOLOGY [place] [address] Isabel Berry APRN [facility] [place] [address] 08/05/2024 12:00 PM EST Infusion Hematology Oncology at [address] [phone] 08/27/2024 10:00 AM EST Hospital Encounter [place] [phone] Gulshan Elder MD [facility] [place] [address] 08/27/2024 10:00 AM EST Anesthesia [place] [phone] Swati Gonzalez MD [facility] [place] [address] 08/27/2024 10:00 AM EST - 08/27/2024 11:00 AM EST [place] [phone] Gulshan Elder MD [facility] [place] [address] EGD, UPPER GI ENDOSCOPY (WRVU 2.09) Scheduled Procedures Name Priority Associated Diagnoses Date/Ti ga EGD, UPPER GI ENDOSCOPY (WRVU 2.09) Abnormal [...] on filedocumented in this encounter Care Teams Eyeglass Frames Inspector Relationship Specialty Start Date End Date Yoni Ramírez MD [address] [place] [address] PCP - General 07/05/10 documented as of this encounter
--- OUTSIDE RECORDS SUMMARY | 2024-07-31 18:42 | XMS_ITS | Encounter Summary ---
Author Organization [facility] Address [facility] [place] [address] Care Team Providers Care Scientific Informatics Leader Name Role Phone Yoni Ramírez MD Primary Care Provider [phone] Encounter Details Date Type Department Care Team (Latest Contact Info) Description 07/26/2022 Travel Social History Tobacco Use Types Packs/Day [...] EST Office Visit Hematology/Oncolog y at [address] [phone] Deyvi Ibrahim MD [facility] DR [place] [address] Isabel Berry APRN [facility] [place] [address] 08/05/2024 12:00 PM EST Infusion Hematology Oncology at [address] [phone] 08/27/2024 10:00 AM EST Hospital Encounter [place] [phone] Gulshan Elder MD [facility] [place] [address] 08/27/2024 10:00 AM EST Anesthesia Event [place] [phone] Swati Gonzalez MD [facility] [place] [address] 08/27/2024 10:00 AM EST - 08/27/2024 11:00 AM EST Surgery [place] [phone] Gulshan Elder MD [facility] [place] [address] EGD, UPPER GI ENDOSCOPY (WRVU 2.09) Scheduled Procedures Name Priority Associated Diagnoses Date/Ti co EGD, UPPER GI ENDOSCOPY (WRVU 2.09) Abnormal [...] on filedocumented in this encounter Care Teams Scientific Informatics Leader Relationship Specialty Start Date End Date Yoni Ramírez MD [address] [place] [address] PCP - General 07/05/10 documented as of this encounter
--- OUTSIDE RECORDS SUMMARY | 2024-07-31 18:42 | XMS_ITS | Encounter Summary ---
Author Organization [facility] Address [facility] [place] [address] Care Team Providers Care Instructor Weaving Name Role Phone Yoni Ramírez MD Primary Care Provider [phone] Encounter Details Date Type Department Care Team (Latest Contact Info) Description 06/19/2022 Travel Social History Tobacco Use Types Packs/Day [...] EST Office Visit Hematology/Oncolog y at [address] [phone] Deyvi Ibrahim MD [facility] DR [place] [address] Isabel Berry APRN [facility] [place] [address] 08/05/2024 12:00 PM EST Infusion Hematology Oncology at [address] [phone] 08/27/2024 10:00 AM EST Hospital Encounter [place] [phone] Gulshan Elder MD [facility] [place] [address] 08/27/2024 10:00 AM EST Anesthesia [place] [phone] Swati Gonzalez MD [facility] [place] [address] 08/27/2024 10:00 AM EST - 08/27/2024 11:00 AM EST [place] [phone] Gulshan Elder MD [facility] [place] [address] EGD, UPPER GI ENDOSCOPY (WRVU 2.09) Scheduled Procedures Name Priority Associated Diagnoses Date/Ti wi EGD, UPPER GI ENDOSCOPY (WRVU 2.09) Abnormal [...] on filedocumented in this encounter Care Teams Instructor Weaving Relationship Specialty Start Date End Date Yoni Ramírez MD [address] [place] [address] PCP - General 07/05/10 documented as of this encounter
--- OUTSIDE RECORDS SUMMARY | 2024-07-31 18:42 | XMS_ITS | Encounter Summary ---
Author Organization [facility] [place] [address] Care Team Providers Care Equine Internship Name Role Phone Yoni Ramírez MD Primary Care Provider [phone] Reason for Visit * Reason Onset Date Comments Other 07/18/2022 Called to resche dule Encounter Details Date Type Department Care Team (Late st Contact Info) Description 07/18/2022 Telephone Hematology/Oncology at [address] [phone] Earlene Casas, TODD Other (Called to reschedule) Social History Tobacco Use Types Packs/Day Years [...] Telephone Encounter - Earlene Casas RN - 07/18/2022 9:10 AM EST Attempted to call Jeff to come in early for appointment today at [facility]. Left message on his and 's mobile phones. Called pcp office and they have not heard from him since 07/04/22. If they do they will call us. Pt not at [facility]. Provider updated documented in this encounter Plan of Treatment Upcoming Encounters Date Type Department Care Team (Latest Contact Info) Description 08/05/2024 11:30 AM EST Office Visit Hematology/Oncolog y at [address] [phone] Deyvi Ibrahim MD [facility] [place] [address] Isabel Berry APRN [facility] [place] [address] 08/05/2024 12:00 PM EST Infusion Hematology Oncology at [address] [phone] 08/27/2024 10:00 AM EST Hospital En[place] [address] Gulshan Elder MD [facility] [place] [address] 08/27/2024 10:00 AM EST Anesthesia [place] [phone] Swati Gonzalez MD [facility] [place] [address] 08/27/2024 10:00 AM EST - 08/27/2024 11:00 AM EST [place] [phone] Gulshan Elder MD [facility] [place] [address] EGD, UPPER GI ENDOSCOPY (WRVU 2.09) Scheduled [...] on filedocumented in this encounter Care Teams Equine Internship Relationship Specialty Start Date End Date Yoni Ramírez MD [address] [place] [address] PCP - General 07/05/10 documented as of this encounter
--- OUTSIDE RECORDS SUMMARY | 2024-07-31 18:42 | XMS_ITS | Encounter Summary ---
Author Organization [facility] [place] [address] Care Team Providers Care Yarder Engineer Name Role Phone Yoni Ramírez MD Primary Care Provider Encounter Details Date Type Department Care Team (Late st Contact Info) Description 07/20/2022 2:30 PM EST Office Visit Radiation Oncology at [address] [phone] Yariel Ernandez MD [address] [place] [address] DR RADIATION ONCOLOGY [place], [place] [id number] Malignant neoplasm of prostate Social History Tobacco [...] to sleep or slept in a senior care (including now)? No 04/13/2022 Sex and Gender Information Value Date Recorded Sex Assigned at Not on file Gender Identity Not on file Sexual Orientation Not on file documented as of this encounter Last Filed Vital Signs Vital Sign Reading Time Taken Comments Blood Pressure 158/93 07/20/2022 2:00 PM EST Pulse 89 07/20/2022 2:00 PM EST Temperature 37.1 ??C (98.8 ??F) 07/20/2022 2:00 PM ES T Respiratory Rate 18 07/20/2022 2:00 PM EST Oxygen Saturation 99% 07/20/2022 2:00 PM EST Inhaled Oxygen Concentration - - Weight 102.5 kg (226 lb) 07/20/2022 2:00 PM EST Height - - Body Mass Index 33.36 07/18/2022 3:16 PM EST documented in this encounter Progress Notes * Yariel Ernandez MD - 07/20/2022 2:30 PM EST Images from the original note were not included. [facility] Medicine Radiation Oncology Radiation Oncology On-treatment Visit Note Patient ID Patient name: Jeff Arreguin Date of : 1965 Referring: Dr Ibrahim PCP: Yoni Ramírez MD Chief complaint: Cancer Staging Malignant neoplasm of prostate Staging form: Prostate, AJCC 8th Edition - Clinical: Stage ALYSSA (cT4, cN1, cM0, PSA: 3, Grade Group: 4) - Signed by aYriel Ernandez MD on 02/23/2022 Jeff Arreguin is a 56 y.o. man diagnosed with node positive, locally advanced prostate cancer s/p TURP. MRI is concerning for YARELY, SVI and bladder neck invasion. Treatment Details Intent: Definitive (Curative) Concurrent [facility] 12/27/2021 01/31/2022 04/25/2022 degarelix (Firmagon) SubQ 240 mg leuprolide (Lupron Depot) IM 22.5 mg 22.5 mg [facility] (AMB) 07/18/2022 leuprolide (Lupron Depot) IM 22.5 mg Abiraterone- currently held per Dr. Ibrahim Modality: VMAT Initial Treatment Site Pelvis Prescribed Dose 45Gy in 25 fractions Boost Treatment site Prostate and Seminal vesicles Prescribed Dose 79.2 Gy in 44 fractions Current Dose: 45 Gy in 25 fractions Interval Clinical Course General: Feeling well today. Ongoing acute on chronic nausea at baseline is doing better this week. : No frequency or urgency. Nocturia 1-2x/nt at baseline. Currently getting up 4- 5x/nt, but he attributes this to HF/night sweatas. +Dysuria as well. Taking Aleve 1 tab BID, flomax x [...] to bed or chair Medications Medications 07/20/22 6216 Medication Sig Taking? amitriptyline (Elavil) 10 mg Tablet Yes clonazePAM (KlonoPIN) 1 mg Tablet TAKE 1 TABLET BY MOUTH EVERY NIGHT AND ONE- HALF TABLET EVERY MORNING Yes cloNIDine (Catapres) 0.1 mg Tablet Take [...] as needed. Yes naloxone (Narcan) 4 mg/actuation [place], Non-Aerosol Narcan 4 mg/actuation nasal spray Take [...] every 8 hours as needed forNausea. Yes Exam Vitals: BP (!) 158/93 (Patient Position: Sitting) Pulse 89 Temp 37.1 ??C (98.8 ??F) Resp 18 Wt 102.5 kg (226 lb) SpO2 99% BMI 33.36 kg/m?? General: Appears well, in no distress; good affect; ambulatory; no pedal edema Imaging/Labs Interval setup imaging has been checked and approved. See Aria for details. Impression/Plan Tolerance to radiotherapy / ADT: Started RT today. Tolerating as anticipated. Continue as planned. Next dose Lupron due in September - Dr Ibrahim overseeing. Abd Pain: Chronic n/v/abd pain, ongoing. Doing better this week. LUTS Cont Aleve 1 tab BID, Flomax 2 tabs QHS Followup: RTC for on-treatment assessment next week. No orders of the defined types were placed in this encounter. ??? National Cancer [place] (NCI) Comprehensive Cancer Center ??? [employer] Commission on Cancer (ACS Benjamin) Accredited Cancer Program ??? [employer] (ACR) Accredited Radiation Oncology Program documented in this encounter Plan of Treatment Upcoming Encounters Date Type Department Care Team (Latest Contact Info) Description 08/05/2024 11:30 AM EST Office Visit Hematology/Oncolog y at [address] [phone] Deyvi Ibrahim MD [facility] DR HEMATOLOGY [place] [address] Isabel Berry APRN [facility] DR MEDICAL [place] [address] 08/05/2024 12:00 PM EST Infusion Hematology Oncology at [address] [phone] 08/27/2024 10:00 AM EST Hospital Encounter [place] [phone] Gulshan Elder MD [facility] DR [place]STRO[place] [address] 08/27/2024 10:00 AM EST Anesthesia [place] [phone] Swati Gonzalez MD [facility] DR ANESTHESIOLOGY [place] [address] 08/27/2024 10:00 AM EST - 08/27/2024 11:00 AM EST Surgery [place] [phone] Gulshan Elder MD [facility] [place]STR[place] [address] EGD, UPPER GI ENDOSCOPY (WRVU 2.09) Scheduled [...] colon documented in this encounter Care Teams Yarder Engineer Relationship Specialty Start Date End Date Yoni Ramírez MD [address] [place] [address] PCP - General 07/05/10 documented as of this encounter
--- OUTSIDE RECORDS SUMMARY | 2024-07-31 18:42 | XMS_ITS | Encounter Summary ---
Author Organization [facility] Address [facility] [place] [address] Care Team Providers Care Shake Packer Name Role Phone Yoni Ramírez MD Primary Care Provider [phone] Encounter Details Date Type Department Care Team (Latest Contact Info) Description 07/20/2022 Travel Social History Tobacco Use Types Packs/Day [...] EST Office Visit Hematology/Oncolog y at [address] [phone] Deyvi Ibrahim MD [facility] DR [place] [address] Isabel Berry APRN [facility] [place] [address] 08/05/2024 12:00 PM EST Infusion Hematology Oncology at [address] [phone] 08/27/2024 10:00 AM EST Hospital Encounter [place] [phone] Gulshan Elder MD [facility] [place] [address] 08/27/2024 10:00 AM EST Anesthesia Event [place] [phone] Swati Gonzalez MD [facility] [place] [address] 08/27/2024 10:00 AM EST - 08/27/2024 11:00 AM EST Surgery [place] [phone] Gulshan Elder MD [facility] [place] [address] EGD, UPPER GI ENDOSCOPY (WRVU 2.09) Scheduled Procedures Name Priority Associated Diagnoses Date/Ti sd EGD, UPPER GI ENDOSCOPY (WRVU 2.09) Abnormal [...] on filedocumented in this encounter Care Teams Shake Packer Relationship Specialty Start Date End Date Yoni Ramírez MD [address] [place] [address] PCP - General 07/05/10 documented as of this encounter
--- OUTSIDE RECORDS SUMMARY | 2024-07-31 18:42 | XMS_ITS | Encounter Summary ---
Author Organization [facility] [place] [address] Care Team Providers Care Bushel Girl Name Role Phone Yoni Ramírez MD Primary Care Provider [phone] Encounter Details Date Type Department Care Team (Late st Contact Info) Description 06/08/2022 Telephone Radiation Oncology at [address] [phone] Geovani Handy RN Social History [...] Telephone Encounter - Geovani Handy RN - 06/08/2022 5:04 PM EDT Attempt made to contact patient as he was not feeling well enough to come in for xrt. Was unable tocontact for follow up on symptoms. Left message that this RN would attempt to call back tomorrow. documented in this encounter Plan of Treatment Upcoming Encounters Date Type Department Care Team (Latest Contact Info) Description 08/05/2024 11:30 AM EST Office Visit Hematology/Oncolog y at [address] [phone] Deyvi Ibrahim MD [facility] DR HEMATOLOGY [place] [address] Isabel Berry APRN [facility] [place] [address] 08/05/2024 12:00 PM EST Infusion Hematology Oncology at [address] [phone] 08/27/2024 10:00 AM EST Hospital En[place] [address] Gulshan Elder MD [facility] [place] [address] 08/27/2024 10:00 AM EST Anesthesia [place] [phone] Swati Gonzalez MD [facility] DR [place] [address] 08/27/2024 10:00 AM EST - 08/27/2024 11:00 AM EST [place] [phone] Gulshan Elder MD [facility] [place] [address] EGD, UPPER GI ENDOSCOPY (WRVU 2.09) Scheduled [...] on filedocumented in this encounter Care Teams Bushel Girl Relationship Specialty Start Date End Date Yoni Ramírez MD [address] [place] [address] PCP - General 07/05/10 documented as of this encounter
--- OUTSIDE RECORDS SUMMARY | 2024-07-31 18:42 | XMS_ITS | Encounter Summary ---
Author Organization [facility] [place] [address] Care Team Providers Care Market Research Consultant Name Role Phone Yoni Ramírez MD Primary Care Provider Encounter Details Date Type Department Care Team (Late st Contact Info) Description 06/23/2022 2:30 PM EST Office Visit Radiation Oncology at [address] [phone] Yariel Ernandez MD [address] [place] [address] DR RADIATION ONCOLOGY [place], [place] [phone] Malignant neoplasm of prostate Social History Tobacco [...] Sign Reading Time Taken Comments Blood Pressure 146/74 06/23/2022 2:00 PM EST Pulse 75 06/23/2022 2:00 PM EST Temperature 37.2 ??C (98.9 ??F) 06/23/2022 2:00 PM ES T Respiratory Rate 18 06/23/2022 2:00 PM EST Oxygen Saturation 97% 06/23/2022 2:00 PM EST Inhaled Oxygen Concentration - - Weight 99.3 kg (219 lb) 06/23/2022 2:00 PM EST Height - - Body Mass Index 32.33 06/06/2022 3:35 PM EDT documented in this encounter Progress Notes * Yariel Ernandez MD - 06/23/2022 2:30 PM EST Images from the original note were not included. [facility] Medicine Radiation Oncology Radiation Oncology [...] Treatment Details Intent: Definitive (Curative) Concurrent Therapy: [facility] (AMB) 12/27/2021 01/31/2022 04/25/2022 degarelix (Firmagon) SubQ 240 mg leuprolide (Lupron Depot) IM 22.5 mg 22.5 mg Abiraterone- currently held per Dr. Ibrahim Modality: VMAT Initial Treatment Site Pelvis Prescribed Dose 45Gy in 25 fractions Boost Treatment site Prostate and Seminal vesicles Prescribed Dose 79.2 Gy in 44 fractions Current Dose: 28.8 Gy in 16 fractions Interval Clinical Course General: Feeling well today. He's missed several appts due to acute on chronic nausea. : No frequency or urgency. Nocturia stable. GI: Continues to have abdominal pain and nausea, but notes this as a chronic issue. No diarrhea. Nutrition: Weight at start of therapy is 95.4 --> 96.2kg --> 99.3kg today. Eating normal diet. Performance Status KPS Score ECOG Grade Definition [...] confined to bed or chair Medications Medications 06/23/22 1426 Medication Sig Taking? clonazePAM (KlonoPIN) 1 mg Tablet TAKE 1 [...] Delayed Release (E.C.) daily as needed. Yes atorvastatin (Lipitor) 20 mg Tablet TAKE ONE TABLET BY MOUTH EVERY EVENING Yes Calcium Citrate-Vitamin D3 315-250 mg-unit Tablet Take 2 tablets by mouth 3 times daily. Patient taking differently: Take 1 tablet by mouth daily. Yes ondansetron (ZOFRAN-ODT) 4 mg Tablet, Rapid Dissolve Take 4 mg by mouth every 8 hours as needed forNausea. Yes amitriptyline (Elavil) 10 mg Tablet naloxone (Narcan) 4 mg/actuation [place], Non-Aerosol Narcan 4 mg/actuation nasal spray Take 1 spray as needed by nasal route. acetaminophen (TYLENOL) 500 mg Tablet Take 2 tablets by mouth every 6 hours as needed for Pain. Patient not taking: No sig reported Exam Vitals: BP 146/74 (Patient Position: Sitting) Pulse 75 Temp 37.2 ??C (98.9 ??F) Resp 18 Wt 99.3 kg (219 lb) SpO2 97% BMI 32.33 kg/m?? General: Appears well, in no distress Imaging/Labs Interval setup imaging has been checked and approved. See Aria for details. Impression/Plan Tolerance to radiotherapy / ADT: Started RT today. Tolerating as anticipated. Continue as planned. Next dose Lupron due in 07/18/22. Abd Pain: Chronic n/v/abd pain, ongoing. Followup: RTC for on-treatment assessment next week. No orders of the defined types were placed in this encounter. ??? National Cancer [place] (NCI) Comprehensive Cancer Center ??? [employer] Commission on Cancer (ACS Benjamin) Accredited Cancer Program ??? [employer] (ACR) Accredited Radiation Oncology Program documented in this encounter Plan of Treatment Upcoming Encounters Date Type Department Care Team (Latest Contact Info) Description 08/05/2024 11:30 AM EST Office Visit Hematology/Oncolog y at [address] [phone] Deyvi Ibrahim MD [facility] [place] [address] Isabel Berry APRN [facility] [place] [address] 08/05/2024 12:00 PM EST Infusion Hematology Oncology at [address] [phone] 08/27/2024 10:00 AM EST Hospital Encounter [place] [phone] Gulshan Elder MD [facility] [place] [address] 08/27/2024 10:00 AM EST Anesthesia Event [place] [phone] Swati Gonzalez MD [facility] [place] [address] 08/27/2024 10:00 AM EST - 08/27/2024 11:00 AM EST Surgery [place] [phone] Gulshan Elder MD [facility] [place] [place] [address] EGD, UPPER GI ENDOSCOPY (WRVU 2.09) Scheduled [...] colon documented in this encounter Care Teams Market Research Consultant Relationship Specialty Start Date End Date Yoni Ramírez MD [address] [place] [address] PCP - General 07/05/10 documented as of this encounter
--- OUTSIDE RECORDS SUMMARY | 2024-07-31 18:42 | XMS_ITS | Encounter Summary ---
Author Organization [facility] [place] [address] Care Team Providers Care Branch Director Name Role Phone Yoni Ramírez MD Primary Care Provider Encounter Details Date Type Department Care Team (Late st Contact Info) Description 07/27/2022 3:30 PM EST Office Visit Radiation Oncology at [address] [phone] Yariel Ernandez MD [address] [place] [address] DR RADIATION ONCOLOGY [place], [place] [phone] Malignant neoplasm of prostate Social History Tobacco [...] Sign Reading Time Taken Comments Blood Pressure 159/81 07/27/2022 3:00 PM EST Pulse 94 07/27/2022 3:00 PM EST Temperature 37 ??C (98.6 ??F) 07/27/2022 3:00 PM EST Respiratory Rate 18 07/27/2022 3:00 PM EST Oxygen Saturation 96% 07/27/2022 3:00 PM EST Inhaled Oxygen Concentration - - Weight 101.9 kg (224 lb 9.6 oz) 07/27/2022 3:00 PM EST Height - - Body Mass Index 33.15 07/18/2022 3:16 PM EST documented in this encounter Progress Notes * Yariel Ernandez MD - 07/27/2022 3:30 PM EST Images from the original note were not included. [facility] Medicine Radiation Oncology Radiation Oncology On-treatment [...] Treatment Details Intent: Definitive (Curative) [facility] 12/27/2021 01/31/2022 04/25/2022 [...] 79.2 Gy in 44 fractions Current Dose: 52.2 Gy in 29 fractions Interval Clinical Course General: Feeling well [...] to bed or chair Medications Medications 07/20/22 0036 Medication Sig Taking? amitriptyline (Elavil) 10 mg [...] 0.4 mg Capsule 0.4 mg nightly. Yes potassium chloride (K-Tab) 20 mEq Tablet [...] every 8 hours as needed forNausea. Yes prochlorperazine (Compazine) [address] 25 mg rectally every 12 hours as needed. naloxone (Narcan) 4 mg/actuation [place], Non-Aerosol Narcan 4 mg/actuation nasal spray Take 1 spray as needed by nasal route. Exam Vitals: BP 159/81 (Patient Position: Sitting) Pulse 94 Temp 37 ??C (98.6 ??F) Resp 18 Wt 101.9 kg (224 lb 9.6 oz) SpO2 96% BMI 33.15 kg/m?? General: Appears well, in no distress [...] placed in this encounter. ??? National Cancer [place] (NCI) Comprehensive Cancer Center ??? [place] [employer] Commission on Cancer (ACS Benjamin) Accredited Cancer Program ??? [employer] (ACR) Accredited Radiation Oncology Program documented in this encounter Plan of Treatment Upcoming Encounters Date Type Department Care Team (Latest Contact Info) Description 08/05/2024 11:30 AM EST Office Visit Hematology/Oncolog y at [address] [phone] Deyvi Ibrahim MD [facility] DR HEMATOLOGY [place] [address] Isabel Berry APRN [facility] [place] [address] 08/05/2024 12:00 PM EST Infusion Hematology Oncology at [address] [phone] 08/27/2024 10:00 AM EST Hospital [place] [phone] Gulshan Elder MD [facility] [place] [address] 08/27/2024 10:00 AM EST Anesthesia [place] [phone] Swati Gonzalez MD [facility] DR [place] [address] 08/27/2024 10:00 AM EST - 08/27/2024 11:00 AM EST [place] [phone] Gulshan Elder MD [facility] [place] [address] EGD, UPPER GI ENDOSCOPY (WRVU 2.09) Scheduled [...] colon documented in this encounter Care Teams Branch Director Relationship Specialty Start Date End Date Yoni Ramírez MD [address] [place] [phone] PCP - General 07/05/10 documented as of this encounter
--- OUTSIDE RECORDS SUMMARY | 2024-07-31 18:42 | XMS_ITS | Encounter Summary ---
Author Organization [facility] Address [facility] [place] [address] Care Team Providers Care Kindergarten Tutor Name Role Phone Yoni Ramírez MD Primary Care Provider [phone] Encounter Details Date Type Department Care Team (Latest Contact Info) Description 07/24/2022 Travel Social History Tobacco Use Types Packs/Day [...] EST Office Visit Hematology/Oncolog y at [address] [phone] Deyvi Ibrahim MD [facility] DR [place] [address] Isabel Berry APRN [facility] [place] [address] 08/05/2024 12:00 PM EST Infusion Hematology Oncology at [address] [phone] 08/27/2024 10:00 AM EST Hospital Encounter [place] [phone] Gulshan Elder MD [facility] [place] [address] 08/27/2024 10:00 AM EST Anesthesia [place] [phone] Swati Gonzalez MD [facility] [place] [address] 08/27/2024 10:00 AM EST - 08/27/2024 11:00 AM EST [place] [phone] Gulshan Elder MD [facility] [place] [place] [address] EGD, UPPER GI ENDOSCOPY (WRVU 2.09) Scheduled Procedures Name Priority Associated Diagnoses Date/Ti ak EGD, UPPER GI ENDOSCOPY (WRVU 2.09) Abnormal [...] on filedocumented in this encounter Care Teams Kindergarten Tutor Relationship Specialty Start Date End Date Yoni Ramírez MD [address] [place] [address] PCP - General 07/05/10 documented as of this encounter
--- OUTSIDE RECORDS SUMMARY | 2024-07-31 18:42 | XMS_ITS | Encounter Summary ---
Author Organization [facility] Address [facility] [place] [address] Care Team Providers Care Feedlot Manager Name Role Phone Yoni Ramírez MD Primary Care Provider [phone] Encounter Details Date Type Department Care Team (Latest Contact Info) Description 07/28/2022 Travel Social History Tobacco Use Types Packs/Day [...] EST Office Visit Hematology/Oncolog y at [address] [phone] Deyvi Ibrahim MD [facility] [place] [address] Isabel Berry APRN [facility] [place] [place] [address] 08/05/2024 12:00 PM EST Infusion Hematology Oncology at [address] [phone] 08/27/2024 10:00 AM EST Hospital Encounter [place] [phone] Gulshan Elder MD [facility] [place] [address] 08/27/2024 10:00 AM EST Anesthesia [place] [phone] Swati Gonzalez MD [facility] [place] [address] 08/27/2024 10:00 AM EST - 08/27/2024 11:00 AM EST Surgery [place] [phone] Gulshan Elder MD [facility] [place] [address] EGD, UPPER GI ENDOSCOPY (WRVU 2.09) Scheduled [...] on filedocumented in this encounter Care Teams Feedlot Manager Relationship Specialty Start Date End Date Yoni Ramírez MD [address] [place] [address] PCP - General 07/05/10 documented as of this encounter
--- OUTSIDE RECORDS SUMMARY | 2024-07-31 18:42 | XMS_ITS | Encounter Summary ---
Author Organization [facility] [place] [address] Care Team Providers Care Sales Facilitator Name Role Phone Yoni Ramírez MD Primary Care Provider Encounter Details Date Type Department Care Team (Late st Contact Info) Description 06/01/2022 2:25 PM EDT Office Visit Radiation Oncology at [address] [phone] Yariel Ernandez MD [address] [place] [address] DR RADIATION ONCOLOGY [place], [place] [id number] Malignant neoplasm of prostate Social History Tobacco [...] Sign Reading Time Taken Comments Blood Pressure 140/98 06/01/2022 2:49 PM EDT Pulse 85 06/01/2022 2:49 PM EDT Temperature 36.6 ??C (97.8 ??F) 06/01/2022 2:49 PM ED T Respiratory Rate 18 06/01/2022 2:49 PM EDT Oxygen Saturation 99% 06/01/2022 2:49 PM EDT Inhaled Oxygen Concentration - - Weight 96.2 kg (212 lb) 06/01/2022 2:49 PM EDT Height - - Body Mass Index 31.29 04/25/2022 1:33 PM EDT documented in this encounter Progress Notes * Tia Tam MD - 06/01/2022 2:25 PM EDT Images from the original note were not included. [facility] Medicine Radiation Oncology Radiation Oncology On-treatment [...] 79.2 Gy in 44 fractions Current Dose: 19.8 Gy in 11 fractions Interval Clinical Course General: Jeff was admitted to the hospital last week for acute renal failure secondary to n/v/dehydration s/p hyrdation. Jeff was at baseline renal function at the time of discharge. : No frequency or urgency. 3-4 times nocturia. GI: Continues to have abdominal pain and nausea, but notes this as a chronic issue. Nutrition: Weight at start of therapy is 95.4 --> 96.2kg today. Eating normal diet. Performance Status KPS Score ECOG Grade Definition 90-100 0 Fully active, able to carry on all pre-disease performance without restriction 70-80 1 Restricted in physically strenuous activity but ambulatory and able to carry out work of a light or sedentary nature, e.g., light house work, office work xx 50-60 2 Ambulatory and capable of all selfcare but unable to carry out any work activities; up and about more than 50% of waking hours 30-40 3 Capable of only limited selfcare; confined to bed or chair more than 50% of waking hours 10-20 4 Completely disabled; cannot carry on any selfcare; totally confined to bed or chair Medications Medications 06/01/22 1503 Medication Sig Taking? cloNIDine (Catapres) 0.1 mg Tablet Take 0.1 mg by mouth 2 times daily. Yes venlafaxine XR (Effexor-XR) 37.5 mg Capsule, Sust. Release 24 hr Take 1 capsule by mouth daily. Yes vortioxetine (Trintellix) 10 mg Tablet Take 10 mg by mouth daily. Yes HYDROmorphone (Dilaudid) 4 mg Tablet Take 4 mg by mouth 3 times daily. Yes aspirin EC 81 mg Tablet, Delayed Release (E.C.) Take 1 tablet by mouth every evening. Yes tamsulosin (Flomax) 0.4 mg Capsule 0.4 mg nightly. Yes prochlorperazine (Compazine) [address] 25 mg rectally every 12 hours as needed. Yes potassium chloride (K-Tab) 20 mEq Tablet Sustained Release daily as needed. Yes atorvastatin (Lipitor) 20 [...] NIGHT AND ONE- HALF TABLET EVERY MORNING abiraterone (Zytiga) 250 mg Tablet Take 4 tablets by mouth daily. Take on empty stomach 1 hour before meals or 2 hours after. Please call clinic before starting medication. Patient not taking: Reported on 06/01/2022 predniSONE (Deltasone) 5 mg Tablet Take 1 tablet by mouth daily. Patient not taking: Reported on 06/01/2022 pantoprazole EC (Protonix) 40 mg Tablet, Delayed Release (E.C.) daily as needed. naloxone (Narcan) 4 mg/actuation [place], Non-Aerosol Narcan 4 mg/actuation nasal spray Take 1 spray as needed by nasal route. acetaminophen (TYLENOL) 500 mg Tablet Take 2 tablets by mouth every 6 hours as needed for Pain. Patient not taking: No sig reported Exam Vitals: BP (!) 140/98 (Patient Position: Sitting) Pulse 85 Temp 36.6 ??C (97.8 ??F) Resp 18 Wt 96.2kg (212 lb) SpO2 99% BMI 31.29 kg/m?? General: Appears well, in no distress Imaging/Labs Interval setup imaging has been checked and approved. See Aria for details. Impression/Plan Tolerance to radiotherapy / ADT: Started RT today. Tolerating as anticipated. Continue as planned. Next dose Lupron due in 07/18/22. Abd Pain: Chronic issues unchanged. Jeff reports feeling better following hospitalization last week. Encouraged continued hydration. Followup: RTC for on-treatment assessment next week. No orders of the defined types were placed in this encounter. Carly Tam MD PGY3 ??? National Cancer [place] (NCI) [facility] ??? [employer] Commission on Cancer (ACS Benjamin) Accredited Cancer Program ??? [employer] (ACR) Accredited Radiation Oncology Program I have seen the patient in person, reviewed and edited the resident's above history and I agree with the details as written. The assessment and plan were formulated in discussion with me and I agree with them as documented. Pertinent History: Patient stable. Pertinent Exam: Appears well, in no distress. Major issues addressed: Assess for toxic effects of radiation therapy and whether to continue. He has chronic n/v/abd pain. Assessment / Plan: he is tolerating treating as expected. No significant toxicity noted other than those described above. Continue RT without changes. Low threshold to provide IV hydration here if n/v recurs during treatment. Yariel Ernandez MD, MS Classified Ad Clerk Radiation Oncology documented in this encounter Plan of Treatment Upcoming Encounters Date Type Department Care Team (Latest Contact Info) Description 08/05/2024 11:30 AM EST Office Visit Hematology/Oncolog y at [address] [phone] Deyvi Ibrahim MD [facility] HEMATOLOGY [place] [address] Isabel Berry APRN [facility] DR [place] [address] 08/05/2024 12:00 PM EST Infusion Hematology Oncology at [address] [phone] 08/27/2024 10:00 AM EST Hospital Encounter [place] [address] Gulshan Elder MD [facility] [place] [address] 08/27/2024 10:00 AM EST Anesthesia [place] [address] Swati Gonzalez MD [facility] ANESTHESIOLOGY [place] [address] 08/27/2024 10:00 AM EST - 08/27/2024 11:00 AM EST [place] [phone] Gulshan Elder MD [facility] DR [place] [address] EGD, UPPER GI ENDOSCOPY (WRVU 2.09) Scheduled [...] colon documented in this encounter Care Teams Sales Facilitator Relationship Specialty Start Date End Date Yoni Ramírez MD [address] [place] [id number] PCP - General 07/05/10 documented as of this encounter
--- OUTSIDE RECORDS SUMMARY | 2024-07-31 18:42 | XMS_ITS | Encounter Summary ---
Author Organization [facility] [place] [address] Care Team Providers Care Second Ride Fare Collector Name Role Phone Yoni Ramírez MD Primary Care Provider [phone] Encounter Details Date Type Department Care Team (Late st Contact Info) Description 07/13/2022 2:25 PM EST Office Visit Radiation Oncology at [address] [phone] Arthur Cano Jr., MD [facility] [place] [address] Malignant neoplasm of prostate Social History Tobacco [...] Sign Reading Time Taken Comments Blood Pressure 130/77 07/13/2022 2:00 PM EST Pulse 86 07/13/2022 2:00 PM EST Temperature 37.1 ??C (98.7 ??F) 07/13/2022 2:00 PM ES T Respiratory Rate 20 07/13/2022 2:00 PM EST Oxygen Saturation 99% 07/13/2022 2:00 PM EST Inhaled Oxygen Concentration - - Weight 100.2 kg (221 lb) 07/13/2022 2:00 PM EST Height - - Body Mass Index 32.62 06/06/2022 3:35 PM EDT documented in this encounter Progress Notes * Arthur Cano Jr., MD - 07/13/2022 2:25 PM ESTSummary: OTV Images from the original note were not included. [facility] Medicine Radiation Oncology Radiation Oncology On-treatment [...] 79.2 Gy in 44 fractions Current Dose: 37.0 Gy in 21 fractions Interval Clinical Course General: Feeling well today. He's missed several appts due to acute on chronic nausea. : No frequency or urgency. Nocturia 1-2x/nt at baseline. Currently going q 1-2 hrs. +Dysuria as well.Taking flomax x 1 tab QHS. GI: No acute problems Nutrition: Weight at start of therapy is 95.4 --> 96.2kg --> 99.3kg --> 99.8kg today. Eating normal diet. Pain: Reports groin soreness x 2 days, rated pain 5/10 Performance Status KPS Score ECOG Grade Definition [...] confined to bed or chair Medications Medications 06/29/22 1440 Medication Sig Taking? amitriptyline (Elavil) 10 mg [...] daily as needed. naloxone (Narcan) 4 mg/actuation [place], Non-Aerosol Narcan 4 mg/actuation nasal spray Take 1 spray as needed by nasal route. atorvastatin (Lipitor) 20 mg Tablet TAKE ONE TABLET BY MOUTH EVERY EVENING acetaminophen (TYLENOL) 500 mg Tablet Take 2 tablets by mouth every 6 hours as needed for Pain. Patient not taking: Reported on 01/31/2022 Calcium Citrate-Vitamin D3 315-250 mg-unit Tablet Take 2 tablets by mouth 3 times daily. Patient taking differently: Take 1 tablet by mouth daily. ondansetron (ZOFRAN-ODT) 4 mg Tablet, Rapid Dissolve Take 4 mg by mouth every 8 hours as needed forNausea. Exam Vitals: There were no vitals taken for this visit. General: Appears well, in no distress; good affect; ambulatory; no pedal edema Imaging/Labs Interval setup imaging has been checked and approved. See Aria for details. Impression/Plan Tolerance to radiotherapy / ADT: Started RT today. Tolerating as anticipated. Continue as planned. Next dose Lupron due in 07/18/22. Abd Pain: Chronic n/v/abd pain, ongong. LUTS Rec Aleve BID qHS w dinner, double the dose of Flomax before bedtime. Followup: RTC for on-treatment assessment next week. No orders of the defined types were placed in this encounter. ??? National Cancer [place] (NCI) Comprehensive Cancer Center ??? [employer] Commission on Cancer (ACS Benjamin) Accredited Cancer Program ??? [employer] (ACR) Accredited Radiation Oncology Program Arthur Cano Jr, MD Prof. & Chief, Radiation Oncology documented in this encounter Plan of Treatment Upcoming Encounters Date Type Department Care Team (Latest Contact Info) Description 08/05/2024 11:30 AM EST Office Visit Hematology/Oncolog y at [address] [phone] Deyvi Ibrahim MD [facility] DR [place] [address] Isabel Berry APRN [facility] [place] [address] 08/05/2024 12:00 PM EST Infusion Hematology Oncology at [address] [phone] 08/27/2024 10:00 AM EST Hospital Encounter Gastroenterology at [place] [phone] Gulshan Elder MD [facility] [place] [address] 08/27/2024 10:00 AM EST Anesthesia [place] [phone] Swati Gonzalez MD [facility] [place] [address] 08/27/2024 10:00 AM EST - 08/27/2024 11:00 AM EST [place] [address] Gulshan Elder MD [facility] [place] [address] EGD, UPPER GI ENDOSCOPY (WRVU 2.09) Scheduled [...] colon documented in this encounter Care Teams Second Ride Fare Collector Relationship Specialty Start Date End Date Yoni Ramírez MD [address] [place] [id number] PCP - General 07/05/10 documented as of this encounter
--- OUTSIDE RECORDS SUMMARY | 2024-07-31 18:42 | XMS_ITS | Encounter Summary ---
Author Organization [facility] [place] [address] Care Team Providers Care Card Tape Converter Operator Name Role Phone Yoni Ramírez MD Primary Care Provider [phone] Encounter Details Date Type Department Care Team (Late st Contact Info) Description 05/25/2022 Telephone Radiation Oncology at [address] [phone] Geovani Handy RN Social History [...] Telephone Encounter - Geovani Handy RN - 05/25/2022 9:37 AM EDT Call placed to [facility] and spoke to inpatient floor nurse about patient admission. Spike RN reports to this RN that Jeff was admitted with Diverticulitis. Patients WBC on admission was 13.5 and has since come down to 10. Patients pain is a 6- 7/10 and is utilizing dilaudid oral for pain management. Patient is also getting fluids, no antibiotics at this time. Patient may possibly be discharged today. pSike RN to fax over labs, progress notes and discharge paperwork. ----- Message from Yariel Ernandez MD sent at 05/25/2022 7:56 AM EDT ----- Regarding: patient at [facility] Nursing / Mcintosh team - Please call up to [facility] and find out what is going on alvarez Aguilar Quick. I just learned that he was admitted. Thanks Yariel documented in this encounter Plan of Treatment Upcoming Encounters Date Type Department Care Team (Latest Contact Info) Description 08/05/2024 11:30 AM EST Office Visit Hematology/Oncolog y at [address] [phone] Deyvi Ibrahim MD [facility] DR HEMATOLOGY [place] [address] Isabel Berry APRN [facility] [place] [address] 08/05/2024 12:00 PM EST Infusion Hematology Oncology at [address] [phone] 08/27/2024 10:00 AM EST Hospital Encounter [place] [phone] Gulshan Elder MD [facility] [place] [address] 08/27/2024 10:00 AM EST Anesthesia [place] [phone] Swati Gonzalez MD [facility] [place] [address] 08/27/2024 10:00 AM EST - 08/27/2024 11:00 AM EST Surgery [place] [phone] Gulshan Elder MD [facility] [place] [address] EGD, UPPER GI ENDOSCOPY (WRVU 2.09) Scheduled [...] on filedocumented in this encounter Care Teams Card Tape Converter Operator Relationship Specialty Start Date End Date Yoni Ramírez MD [address] [place] [phone] PCP - General 07/05/10 documented as of this encounter
--- OUTSIDE RECORDS SUMMARY | 2024-07-31 18:42 | XMS_ITS | Encounter Summary ---
Author Organization [facility] [place] [address] Care Team Providers Care Chiropractic Doctor Name Role Phone Yoni Ramírez MD Primary Care Provider [phone] Encounter Details Date Type Department Care Team (Late st Contact Info) Description 06/05/2022 Telephone Radiation Oncology at [address] [phone] Jamila Rdz, RN Social History Tobacco Use Types Packs/Day [...] encounter Miscellaneous Notes * Telephone Encounter - Jamila Rdz RN - 06/05/2022 11:27 AM EDT Telephone call from Lianna reporting that Jeff has had diarrhea yesterday while she was at work andso far today. It is liquid brown without blood. He has been incontinent once. Has not taken anything for diarrhea but she is going to fruit picker imodium for him to start taking today. Having some nausea but no vomiting. Takes prochlorperazine suppository as needed as this is more effective than ondansetron ODT. Denies changes. He spent much of yesterday in bed but is up today drinking grape juice and is on his second coffee cup full at time of call. Tolerating well. She reports that he avoids corn syrup and other foods/drinks that upset his diverticulosis. She does not feel that he looks dehydrated and he is not complaining of dizziness etc. She reports that he has been depressed because he can't take abiraterone and prednisone. He has notbeen sleeping well because of soaking hot flashes but he does think that venlafaxine has helped some. He wishes to skip xrt today and concentrate on hydrating/eating. He plans to come in tomorrow for treatment and to see Dr. Ibrahim. She also adds that if he should not be able to continue eating ordrinking today that they would present to ED. I let her know that I will update Alexandria Leon and Anel regarding this call and will call back with any additional recommendations. documented in this encounter Plan of Treatment Upcoming Encounters Date Type Department Care Team (Latest Contact Info) Description 08/05/2024 11:30 AM EST Office Visit Hematology/Oncolog y at [address] [phone] Deyvi Ibrahim MD [facility] [place] [address] Isabel Berry APRN [facility] [place] [address] 08/05/2024 12:00 PM EST Infusion Hematology Oncology at [address] [phone] 08/27/2024 10:00 AM EST Hospital Encounter [place] [phone] Gulshan Elder MD [facility] [address] 08/27/2024 10:00 AM EST Anesthesia [place] [phone] Swati Gonzalez MD [facility] [place] [address] 08/27/2024 10:00 AM EST - 08/27/2024 11:00 AM EST Surgery [place] [phone] Gulshan Elder MD [facility] [address] EGD, UPPER GI ENDOSCOPY (WRVU 2.09) Scheduled [...] on filedocumented in this encounter Care Teams Chiropractic Doctor Relationship Specialty Start Date End Date Yoni Ramírez MD [address] [place] [id number] PCP - General 07/05/10 documented as of this encounter
--- OUTSIDE RECORDS SUMMARY | 2024-07-31 18:42 | XMS_ITS | Encounter Summary ---
Author Organization [facility] Address [facility] [place] [address] Care Team Providers Care Therapist'S Assistant Name Role Phone Yoni Ramírez MD Primary Care Provider [phone] Encounter Details Date Type Department Care Team (Latest Contact Info) Description 07/13/2022 Travel Social History Tobacco Use Types Packs/Day [...] EST Office Visit Hematology/Oncolog y at [address] [phone] Deyvi Ibrahim MD [facility] DR HEMATOLOGY [place] [address] Isabel Berry APRN [facility] [place] [address] 08/05/2024 12:00 PM EST Infusion Hematology Oncology at [address] [phone] 08/27/2024 10:00 AM EST Hospital Encounter [place] [phone] Guslhan Elder MD [facility] [place] [address] 08/27/2024 10:00 AM EST Anesthesia [place] [phone] Swati Gonzalez MD [facility] DR [place] [address] 08/27/2024 10:00 AM EST - 08/27/2024 11:00 AM EST Surgery [place] [phone] Gulshan Elder MD [facility] [place] [address] EGD, UPPER GI ENDOSCOPY (WRVU 2.09) Scheduled Procedures Name Priority Associated Diagnoses Date/Ti ky EGD, UPPER GI ENDOSCOPY (WRVU 2.09) Abnormal [...] on filedocumented in this encounter Care Teams Therapist'S Assistant Relationship Specialty Start Date End Date Yoni Ramírez MD [address] [place] [id number] PCP - General 07/05/10 documented as of this encounter
--- OUTSIDE RECORDS SUMMARY | 2024-07-31 18:42 | XMS_ITS | Encounter Summary ---
Author Organization [facility] [place] [address] Care Team Providers Care Associate Media Planner Name Role Phone Yoni Ramírez MD Primary Care Provider [phone] Reason for Visit * Reason Onset Date Comments Reminder Appointment 07/19/2022 For labs Encounter Details Date Type Department Care Team (Late st Contact Info) Description 07/19/2022 Telephone Hematology/Oncology at [address] [phone] Manav Dexter, RN Reminder Appointment (For labs) Social History Tobacco Use Types Packs/Day Years [...] Telephone Encounter - Manav Dexter RN - 07/19/2022 10:29 AM EST Called and LM to remind pt to go for labs and call us to let us know where he goes so we can reviewlabs accordingly. documented in this encounter Plan of Treatment Upcoming Encounters Date Type Department Care Team (Latest Contact Info) Description 08/05/2024 11:30 AM EST Office Visit Hematology/Oncolog y at [address] [phone] Deyvi Ibrahim MD [facility] [place] [address] Isabel Berry APRN [facility] [place] [address] 08/05/2024 12:00 PM EST Infusion Hematology Oncology at [address] [phone] 08/27/2024 10:00 AM EST Hospital Encounter [place] [address] Gulshan Elder MD [facility] [place] [address] 08/27/2024 10:00 AM EST Anesthesia [place] [address] Swati Gonzalez MD [facility] [place] [address] 08/27/2024 10:00 AM EST - 08/27/2024 11:00 AM EST [place] [phone] Gulshan Elder MD [facility] [place] [address] EGD, UPPER GI ENDOSCOPY (WRVU 2.09) Scheduled [...] on filedocumented in this encounter Care Teams Associate Media Planner Relationship Specialty Start Date End Date Yoni Ramírez MD [address] [place] [phone] PCP - General 07/05/10 documented as of this encounter
--- OUTSIDE RECORDS SUMMARY | 2024-07-31 18:42 | XMS_ITS | Encounter Summary ---
Author Organization [facility] [place] [address] Care Team Providers Care Nutrition Services Manager Name Role Phone Yoni Ramírez MD Primary Care Provider [phone] Encounter Details Date Type Department Care Team (Late st Contact Info) Description 05/29/2022 Telephone Radiation Oncology at [address] [phone] Jamila Rdz, RN Social History [...] Telephone Encounter - Jamila Rdz RN - 05/29/2022 9:24 AM EDT Background: Please see [facility] discharge information filed in Media section of chart. Left message on identifiable voice mail with request for call back with status update. documented in this encounter Plan of Treatment Upcoming Encounters Date Type Department Care Team (Latest Contact Info) Description 08/05/2024 11:30 AM EST Office Visit Hematology/Oncolog y at [address] [phone] Deyvi Ibrahim MD [facility] [place] [address] Isabel Berry APRN [facility] [place] [address] 08/05/2024 12:00 PM EST Infusion Hematology Oncology at [address] [phone] 08/27/2024 10:00 AM EST Hospital En[place] [address] Gulshan Elder MD [facility] [place] [address] 08/27/2024 10:00 AM EST Anesthesia [place] [address] Swati Gonzalez MD [facility] [place] [address] 08/27/2024 10:00 AM EST - 08/27/2024 11:00 AM EST [place] [phone] Gulshan Elder MD [facility] [place] [address] EGD, UPPER GI ENDOSCOPY (WRVU 2.09) Scheduled Procedures Name Priority Associated Diagnoses Date/Ti mn EGD, UPPER GI ENDOSCOPY (WRVU 2.09) Abnormal [...] on filedocumented in this encounter Care Teams Nutrition Services Manager Relationship Specialty Start Date End Date Yoni Ramírez MD [address] [place] [address] PCP - General 07/05/10 documented as of this encounter
--- OUTSIDE RECORDS SUMMARY | 2024-07-31 18:42 | XMS_ITS | Encounter Summary ---
Author Organization [facility] Address [facility] [place] [address] Care Team Providers Care Hearing Health Technician Name Role Phone Yoni Ramírez MD Primary Care Provider [phone] Encounter Details Date Type Department Care Team (Latest Contact Info) Description 06/09/2022 Travel Social History Tobacco Use Types Packs/Day [...] AM EST Office Visit Hematology/Oncolog y at [address] [phone] Deyvi Ibrahim MD [facility] [place] [address] Isabel Berry APRN [facility] [place] [place] [address] 08/05/2024 12:00 PM EST Infusion Hematology Oncology at [address] [phone] 08/27/2024 10:00 AM EST Hospital Encounter [place] [phone] Gulshan Elder MD [facility] [place] [address] 08/27/2024 10:00 AM EST Anesthesia Event [place] [phone] Swati Gonzalez MD [facility] [place] [address] 08/27/2024 10:00 AM EST - 08/27/2024 11:00 AM EST Surgery [place] [phone] Gulshan Elder MD [facility] [place] [address] EGD, UPPER GI ENDOSCOPY (WRVU 2.09) Scheduled [...] on filedocumented in this encounter Care Teams Hearing Health Technician Relationship Specialty Start Date End Date Yoni Ramírez MD [address] [place] [id number] PCP - General 07/05/10 documented as of this encounter
--- OUTSIDE RECORDS SUMMARY | 2024-07-31 18:42 | XMS_ITS | Encounter Summary ---
Author Organization [facility] Address [facility] [place] [address] Care Team Providers Care Sand Tester Name Role Phone Yoni Ramírez MD Primary Care Provider [phone] Encounter Details Date Type Department Care Team (Latest Contact Info) Description 07/31/2022 Travel Social History Tobacco Use Types Packs/Day [...] AM EST Office Visit Hematology/Oncolog y at [address] [phone] Deyvi Ibrahim MD [facility] DR [place] [address] Isabel Berry APRN [facility] [place] [address] 08/05/2024 12:00 PM EST Infusion Hematology Oncology at [address] [phone] 08/27/2024 10:00 AM EST Hospital Encounter [place] [phone] Gulshan Elder MD [facility] [place] [address] 08/27/2024 10:00 AM EST Anesthesia Event [place] [phone] Swati Gonzalez MD [facility] [place] [address] 08/27/2024 10:00 AM EST - 08/27/2024 11:00 AM EST Surgery [place] [phone] Gulshan Elder MD [facility] [place] [address] EGD, UPPER GI ENDOSCOPY (WRVU 2.09) Scheduled Procedures Name Priority Associated Diagnoses Date/Ti id EGD, UPPER GI ENDOSCOPY (WRVU 2.09) Abnormal [...] on filedocumented in this encounter Care Teams Sand Tester Relationship Specialty Start Date End Date Yoni Ramírez MD [address] [place] [id number] PCP - General 07/05/10 documented as of this encounter
--- OUTSIDE RECORDS SUMMARY | 2024-07-31 18:42 | XMS_ITS | Encounter Summary ---
Author Organization [facility] Address [facility] [place] [address] Care Team Providers Care Glass Enamel Mixer Name Role Phone Yoni Ramírez MD Primary Care Provider [phone] Reason for Visit * Reason Comments Injections Lupron Encounter Details Date Type Department Care Team (Late st Contact Info) Description 07/18/2022 3:30 PM EST Office Visit Hematology/Oncology at [address] [phone] Eleanor Cano, RN [facility] [place] [address] Malignant neoplasm of prostate; Androgen deprivation therapy [...] Sign Reading Time Taken Comments Blood Pressure 152/82 07/18/2022 3:16 PM EST Pulse 66 07/18/2022 3:16 PM EST Temperature 36.4 ??C (97.5 ??F) 07/18/2022 3:16 PM ES T Respiratory Rate 16 07/18/2022 3:16 PM EST Oxygen Saturation 100% 07/18/2022 3:16 PM EST Inhaled Oxygen Concentration - - Weight 101.6 kg (224 lb) 07/18/2022 3:16 PM EST Height 175.3 cm (5' 9.02) 07/18/2022 3:16 PM ES T Body Mass Index 33.06 07/18/2022 3:16 PM EST documented in this encounter Progress Notes * Eleanor Cano APRN - 07/18/2022 3:30 PM EST Images from the original note were not included. 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 [...] is urination has improved since TURP Interval history(07/18/22): Mr. Arreguin is in clinic for follow-up appointment for his prostate cancerand a lupron injection. He was admitted on May with acute kidney failure creatinine 4.1, dehydration. He was hydrated, diverticulitis treated with antibiotics. His kidney function returned to normal. He continues radiation therapy. Abiraterone and prednisone have been discontinued. Today he feels well. Denies any pain. No changes in urination. He did not have his labwork done [...] Suboxone [Buprenorphine-Naloxone] Hives ??? Lexapro [Escitalopram] Hives [place] odd Medications: Your Medications Accurate as of July 18, 2022 3:35 PM. If you have any questions, ask your nurse or doctor. Continued medications with new dosing Dose Details Calcium Citrate-Vitamin D3 315 mg-6.25 mcg (250 unit) Tab Take 2 tablets by mouth 3 times daily. What changed: ?? how much to take ?? when to take this 2 tablet Refills: 0 Continued medications, unchanged Dose Details acetaminophen 500 mg Tab Commonly known as: Tylenol Take 2 tablets by mouth every 6 hours as needed for Pain. 1,000 mg Refills: 0 amitriptyline 10 mg Tab Commonly known as: Elavil Refills: 0 aspirin EC 81 mg Tbec Take 1 tablet by mouth every evening. 81 mg Quantity: 30 tablet Refills: 3 atorvastatin 20 mg Tab Commonly known as: Lipitor TAKE ONE TABLET BY MOUTH EVERY EVENING Refills: 0 clonazePAM 1 mg Tab Commonly known as: KlonoPIN TAKE 1 TABLET BY MOUTH EVERY NIGHT AND ONE-HALF TABLET EVERY MORNING Refills: 0 cloNIDine 0.1 mg Tab Commonly known as: Catapres Take 0.1 mg by mouth 2 times daily. 0.1 mg Refills: 0 HYDROmorphone 4 mg Tab Commonly known as: Dilaudid Take 4 mg by mouth 4 times daily. 4 mg Refills: 0 naloxone 4 mg/actuation [place] Commonly known as: Narcan Narcan 4 mg/actuation nasal spray Take 1 spray as needed by nasal route. Refills: 0 ondansetron ODT 4 mg Tbdl Commonly known as: Zofran-ODT Take 4 mg by mouth every 8 hours as needed for Nausea. 4 mg Refills: 0 pantoprazole EC 40 mg Tbec Commonly known as: Protonix daily as needed. Refills: 0 potassium chloride 20 mEq Tbsr Commonly known as: K-Tab daily as needed. Refills: 0 prochlorperazine 25 mg Supp Commonly known as: Compazine Place 25 mg rectally every 12 hours as needed. 25 mg Refills: 0 tamsulosin 0.4 mg Cap Commonly known as: Flomax 0.4 mg nightly. 0.4 mg Refills: 0 Trintellix 10 mg Tab Take 10 mg by mouth daily. Generic drug: vortioxetine 10 mg Refills: 0 venlafaxine XR 37.5 mg Cp24 Commonly known as: Effexor-XR Take 1 capsule [...] Head: Normocephalic, without obvious abnormality, atraumatic Eyes: PERRL, conjunctiva/corneas clear, EOM's intact, both eyes Ears: Nose: Throat: Lips, mucosa, and tongue [...] axillary nodes normal Neurologic: Normal Vitals BP 152/82 (Patient Position: Sitting) Pulse 66 Temp 36.4 ??C (97.5 ??F) (Temporal) Resp 16 Ht 175.3 cm (5' 9.02) Wt 101.6 kg (224 lb) SpO2 100% BMI 33.06 kg/m?? Pathology: 170 gene panel:TMPRSS2, ERG TMPRSS2- ERG fusion transcript 10/20/21 Bladder neck tumor and prostatic tissue, transurethral resection: ?Prostatic adenocarcinoma, grade group 4, [place] ? grade 4+4, involving 100% of the submitted ? tissue. INTERPRETATION Block ? Antibody ? Result (Positive/Negative) A-1 ?MLH1 ?Positive, intact nuclear staining ?MSH2 ?Positive, intact nuclear staining ?MSH6 ?Positive, intact nuclear staining ?PMS2 ?Positive, intact nuclear staining Interpretation: Labs: 06/06/2022 BUN 14, creatinine 1.1, calcium 8.4, [...] hemoglobin 13.5, platelet count 265. PSA testosteron 04/25/22 0.08 <7.0 02/28/2022 0.90 <7.0 01/31/22 [...] and Plan: Diagnosis: Prostatic adenocarcinoma, grade 4, [place] 4+4, metastatic to regional lymph nodes Treatment: 12/27/21 degarelix 240 mg 01/31/22 switched to Lupron 22.5 mg every 3 months 02/23/22- started abiraterone and prednisone Mr. Arreguin is 56 years old gentleman [...] He would like to be treated at [facility] close to his home. 12/27/21 PSMA [...] labwork done and will go up to [facility] after his visit to have them done. #Pain management: Follows with primary care provider. #Financial hardship: Follows with dowel pin worker. Plan: 1. Lupron 22.5 mg every 3 months- give today 2. Labwork to be done after visit today. 3. Next visit in 3 months with CBC, CMP, PSA, testosterone and lupron Mr. Arreguin voiced understanding of the plan and was given an opportunity to ask questions which I answered to the best of my ability. understands he can call the clinic between visits with any questions/concerns or new symptoms. Eleanor Cano MSN, COLLEGE SCOUTING COORDINATOR, AOCNP Medical Oncology I spent 25 minutes, (including face to face and non-face to face time) for this encounter today. This includes: Preparation for the visit: _x_ reviewing test results _x_ obtaining interim medical/surgical history __ reviewing patient completed questionnaires During the visit: _x_ obtaining the history/ROS _x_ performing medically appropriate examination and ROS _x_ reviewing test results with patient/family/caregiver _x_ discussing disease status _x_ counseling/educating the patient/family/caregiver __ ordering medications/tests/procedures _x_ referring and communicating with other health professionals Post visit: x__ documenting in medical record x__ communications with other health professionals __ other: documented in this encounter Plan of Treatment Upcoming Encounters Date Type Department Care Team (Latest Contact Info) Description 08/05/2024 11:30 AM EST Office Visit Hematology/Oncolog y at [address] [phone] Deyvi Ibrahim MD [facility] DR HEMATOLOGY [place] [address] Isabel Berry APRN [facility] [place] [address] 08/05/2024 12:00 PM EST Infusion Hematology Oncology at [address] [phone] 08/27/2024 10:00 AM EST Hospital En[place] [address] Gulshan Elder MD [facility] DR [place] [address] 08/27/2024 10:00 AM EST Anesthesia [place] [phone] Swati Gonzalez MD [facility] DR ANESTHESI[place]Y [place] [address] 08/27/2024 10:00 AM EST - 08/27/2024 11:00 AM EST [place] [address] Gulshan Elder MD [facility] [place] [address] EGD, UPPER GI ENDOSCOPY (WRVU 2.09) Scheduled [...] colon documented in this encounter Care Teams Glass Enamel Mixer Relationship Specialty Start Date End Date Yoni Ramírez MD [address] [place] [id number] PCP - General 07/05/10 documented as of this encounter
--- OUTSIDE RECORDS SUMMARY | 2024-07-31 18:42 | XMS_ITS | Encounter Summary ---
Author Organization [facility] Address [facility] [place] [address] Care Team Providers Care Electronic Repair Troubleshooter Name Role Phone Yoni Ramírez MD Primary Care Provider Encounter Details Date Type Department Care Team (Late st Contact Info) Description 06/06/2022 3:30 PM EDT Office Visit Hematology/Oncology at [address] [phone] Deyvi Ibrahim MD [facility] DR [place] [address] Prostate cancer metastatic to intrapelvic lymph node; Malignant neoplasm of prostate; Androgen deprivation therapy [...] Sign Reading Time Taken Comments Blood Pressure 138/82 06/06/2022 3:35 PM EDT Pulse 72 06/06/2022 3:35 PM EDT Temperature 36.2 ??C (97.1 ??F) 06/06/2022 3:35 PM ED T Respiratory Rate 16 06/06/2022 3:35 PM EDT Oxygen Saturation 100% 06/06/2022 3:35 PM EDT Inhaled Oxygen Concentration - - Weight 97.5 kg (215 lb) 06/06/2022 3:35 PM EDT Height 175.3 cm (5' 9.02) 06/06/2022 3:35 PM ED T Body Mass Index 31.74 06/06/2022 3:35 PM EDT documented in this encounter Progress Notes * Deyvi Ibrahim MD - 06/06/2022 3:30 PM EDT Images from the original note were not included. Diagnosis: Prostatic adenocarcinoma, 4, [place] 4+4, with pelvic lymph node metastases PSA 2.1 CC:I feel fine HPI:Jeff Edouard Kallie is 56 y.o.M refereed by Dr. Enamorado for consultation [...] was consistent with prostatic adenocarcinoma grade 4, [place] 4+4 He complains of low back pain and perineal pain. He is urination has improved since TURP Interval history: Mr. Arreguin is in clinic for follow-up appointment on prostate cancer and abiraterone/prednisone toxicity check. Jeff developed abdominal pain which was related to diverticulitis about 2 weeks ago. He was admitted on May 24 with acute kidney failure creatinine 4.1, dehydration. He was hydrated, diverticulitis treated with antibiotics. His kidney function returned to normal. Hecontinues radiation therapy. Abiraterone and prednisone were held. Today he feels well. Denies any pain. No changes in urination PMH: Admission with diverticulitis/MARIAN, Hyperlipidemia, obesity, hypertension, [...] Suboxone [Buprenorphine-Naloxone] Hives ??? Lexapro [Escitalopram] Hives [place] odd Medications: Your Medications Accurate as of June 06, 2022 3:52 PM. If you have any questions, ask your nurse or doctor. Continued medications with new dosing Dose Details Calcium Citrate-Vitamin D3 315 mg-6.25 mcg (250 unit) Tab Take 2 tablets by mouth 3 times daily. What changed: ?? how much to take ?? when to take this 2 tablet Refills: 0 Continued medications, unchanged Dose Details abiraterone 250 mg Tab Commonly known as: Zytiga Take 4 tablets by mouth daily. Take on empty stomach 1 hour before meals or 2 hours after. Please call clinic before starting medication. 1,000 mg Quantity: 120 tablet Refills: 11 acetaminophen 500 mg Tab Commonly known as: Tylenol Take 2 tablets by mouth every 6 hours as needed for Pain. 1,000 mg Refills: 0 aspirin EC 81 mg Tbec [...] as: Dilaudid Take 4 mg by mouth 3 times daily. 4 mg Refills: 0 naloxone 4 mg/actuation [place] Commonly known as: Narcan Narcan 4 mg/actuation [...] as: K-Tab daily as needed. Refills: 0 predniSONE 5 mg Tab Commonly known as: Deltasone Take 1 tablet by mouth daily. 5 mg Quantity: 30 tablet Refills: 11 prochlorperazine 25 mg Supp Commonly known as: [...] atraumatic Eyes: PERRL, conjunctiva/corneas clear, EOM's intact, fundi benign, both eyes Ears: Normal TM's and external ear canals, both ears Nose: Nares normal, septum midline, mucosa normal, no drainage or sinus tenderness Throat: Lips, mucosa, and tongue normal; teeth and gums normal Neck: Supple, symmetrical, trachea midline, no adenopathy, thyroid: not enlarged, symmetric, no tenderness/mass/nodules, no carotid bruit or JVD Back: Symmetric, no curvature, ROM normal, [...] axillary nodes normal Neurologic: Normal Vitals BP 138/82 (Patient Position: Sitting) Pulse 72 Temp 36.2 ??C (97.1 ??F) (Temporal) Resp 16 Ht 175.3 cm (5' 9.02) Wt 97.5 kg (215 lb) SpO2 100% BMI 31.74 kg/m?? Pathology: 170 gene panel:TMPRSS2, ERG TMPRSS2- ERG fusion transcript 10/20/21 Bladder neck tumor and prostatic tissue, transurethral resection: ?Prostatic adenocarcinoma, grade group 4, [place] ? grade 4+4, involving 100% of the [...] and Plan: Diagnosis: Prostatic adenocarcinoma, grade 4, [place] 4+4, metastatic to regional lymph nodes Treatment: [...] He would like to be treated at [facility] close to his home. 12/27/21 PSMA PET [...] blood work, Lupron and consideration of enzalutamide. #Pain management: Follows with primary care provider. #Financial hardship: Mr. Arreguin would like to discuss with licensed social worker. Plan: 1. Lupron 22.5 mg every 3 months, 2. D/c abiraterone and prednisone 3. Next visit in 6 weeks with CBC, CMP, PSA, testosterone and lupron Mr. Arreguin is accompanied by his today. The plan was discussed with the patient in details. Allquestions were answered to patient satisfaction. I would like to thank Dr. Enamorado and Dr. Ramírez for allowing me to participate in the care of this wonderful gentleman documented in this encounter Plan of Treatment Upcoming Encounters Date Type Department Care Team (Latest Contact Info) Description 08/05/2024 11:30 AM EST Office Visit Hematology/Oncolog y at [address] [phone] Deyvi Ibrahim MD [facility] [place] [address] Isabel Berry APRN [facility] [place] [address] 08/05/2024 12:00 PM EST Infusion Hematology Oncology at [address] [phone] 08/27/2024 10:00 AM EST Hospital Encounter [place] [address] Gulshan Elder MD [facility] [place] [address] 08/27/2024 10:00 AM EST Anesthesia Event [place] [phone] Swati Gonzalez MD [facility] [place] [address] 08/27/2024 10:00 AM EST - 08/27/2024 11:00 AM EST Surgery [place] [address] Gulshan Elder MD [facility] [address] EGD, UPPER GI ENDOSCOPY (WRVU 2.09) Scheduled [...] Prostate cancer metastatic to intrapelvic lymph node Malignant neoplasm of prostate Androgen deprivation therapy [...] colon documented in this encounter Care Teams Electronic Repair Troubleshooter Relationship Specialty Start Date End Date Yoni Ramírez MD [address] [place] [id number] PCP - General 07/05/10 documented as of this encounter
--- OUTSIDE RECORDS SUMMARY | 2024-07-31 18:42 | XMS_ITS | Encounter Summary ---
Author Organization [facility] Address [facility] [place] [address] Care Team Providers Care Imaging Assistant Name Role Phone Yoni Ramírez MD Primary Care Provider [phone] Encounter Details Date Type Department Care Team (Latest Contact Info) Description 07/18/2022 Travel Social History Tobacco Use Types Packs/Day [...] AM EST Office Visit Hematology/Oncolog y at [address] [phone] Deyvi Ibrahim MD [facility] DR HEMATOLOGY [place] [address] Isabel Berry APRN [facility] [place] [address] 08/05/2024 12:00 PM EST Infusion Hematology Oncology at [address] [phone] 08/27/2024 10:00 AM EST Hospital Encounter [place] [phone] Gulshan Elder MD [facility] [place] [address] 08/27/2024 10:00 AM EST Anesthesia Event [place] [phone] Swati Gonzalez MD [facility] [place] [address] 08/27/2024 10:00 AM EST - 08/27/2024 11:00 AM EST Surgery [place] [phone] Gulshan Elder MD [facility] [place] [address] EGD, UPPER GI ENDOSCOPY (WRVU 2.09) Scheduled [...] on filedocumented in this encounter Care Teams Imaging Assistant Relationship Specialty Start Date End Date Yoni Ramírez MD [address] [place] [id number] PCP - General 07/05/10 documented as of this encounter
--- OUTSIDE RECORDS SUMMARY | 2024-07-31 18:42 | XMS_ITS | Encounter Summary ---
Author Organization [facility] [place] [address] Care Team Providers Care Project Leader Name Role Phone Yoni Ramírez MD Primary Care Provider [phone] Encounter Details Date Type Department Care Team (Late st Contact Info) Description 06/29/2022 2:30 PM EST Office Visit Radiation Oncology at [address] [phone] Yariel Ernandez MD [address] [place] [address] DR RADIATION ONCOLOGY [place], [place] [id number] Malignant neoplasm of prostate Social History Tobacco [...] Sign Reading Time Taken Comments Blood Pressure 141/82 06/29/2022 2:00 PM EST Pulse 80 06/29/2022 2:00 PM EST Temperature 36.3 ??C (97.4 ??F) 06/29/2022 2:00 PM ES T Respiratory Rate 20 06/29/2022 2:00 PM EST Oxygen Saturation 99% 06/29/2022 2:00 PM EST Inhaled Oxygen Concentration - - Weight 99.8 kg (220 lb) 06/29/2022 2:00 PM EST Height - - Body Mass Index 32.47 06/06/2022 3:35 PM EDT documented in this encounter Progress Notes * Yariel Ernandez MD - 06/29/2022 2:30 PM EST Images from the original note were not included. [employer] [employer] Medicine Radiation Oncology Radiation Oncology On-treatment Visit [...] 79.2 Gy in 44 fractions Current Dose: 34.2 Gy in 19 fractions Interval Clinical Course General: Feeling well today. He's missed several appts due to acute on chronic nausea. : No frequency or urgency. Nocturia 1-2x/nt at baseline. Currently going about 4- 5x/nt. +Dysuria as well. Taking flomax x 1 tab QHS. GI: Continues to have abdominal pain and [...] to bed or chair Medications Medications 06/23/22 9074 Medication Sig Taking? amitriptyline (Elavil) 10 mg [...] daily as needed. naloxone (Narcan) 4 mg/actuation [place], Non-Aerosol Narcan 4 mg/actuation nasal spray Take 1 spray as needed by nasal route. atorvastatin (Lipitor) 20 mg Tablet TAKE ONE TABLET BY MOUTH EVERY EVENING acetaminophen (TYLENOL) 500 mg Tablet Take 2 tablets by mouth every 6 hours as needed for Pain. Patient not taking: No sig reported Calcium Citrate-Vitamin D3 315-250 mg-unit Tablet Take 2 tablets by mouth 3 times daily. Patient taking differently: Take 1 tablet by mouth daily. ondansetron (ZOFRAN-ODT) 4 mg Tablet, Rapid Dissolve Take 4 mg by mouth every 8 hours as needed forNausea. Exam Vitals: BP 141/82 (Patient Position: Sitting) Pulse 80 Temp 36.3 ??C (97.4 ??F) Resp 20 Wt 99.8 kg (220 lb) SpO2 99% BMI 32.47 kg/m?? General: Appears well, in no distress Imaging/Labs Interval setup imaging has been checked and approved. See Aria for details. Impression/Plan Tolerance to radiotherapy / ADT: Started RT today. Tolerating as anticipated. Continue as planned. Next dose Lupron due in 07/18/22. Abd Pain: Chronic n/v/abd pain, ongong. LUTS Rec Aleve BID qHS w dinner, cont Flomax before bedtime. Followup: RTC for on-treatment assessment next week. No orders of the defined types were placed in this encounter. ??? National [facility] [place] ([facility]) [facility] ??? [place] [employer] Commission on Cancer (ACS [place]) Accredited Cancer Program ??? [place] [employer] (ACR) Accredited Radiation Oncology Program documented in this encounter Plan of Treatment Upcoming Encounters Date Type Department Care Team (Latest Contact Info) Description 08/05/2024 11:30 AM EST Office Visit Hematology/Oncolog y at [address] [phone] Deyvi Ibrahim MD [facility] DR HEMATOLOGY [place] [address] Isabel Berry APRN [facility] [place] [address] 08/05/2024 12:00 PM EST Infusion Hematology Oncology at [address] [phone] 08/27/2024 10:00 AM EST Hospital En[place] [phone] Gulshan Elder MD [facility] [place] [address] 08/27/2024 10:00 AM EST Anesthesia [place] [phone] Swati Gonzalez MD [facility] [place] [address] 08/27/2024 10:00 AM EST - 08/27/2024 11:00 AM EST [place] [phone] Gulshan Elder MD [facility] [place] [address] EGD, UPPER GI ENDOSCOPY (WRVU 2.09) Scheduled [...] colon documented in this encounter Care Teams Project Leader Relationship Specialty Start Date End Date Yoni Ramírez MD [address] [place] [id number] PCP - General 07/05/10 documented as of this encounter
--- OUTSIDE RECORDS SUMMARY | 2024-07-31 18:42 | XMS_ITS | Encounter Summary ---
[facility] [place] [address] Care Team Providers Care Machine Tool Builder Name Role Phone Yoni Ramírez MD Primary Care Provider Reason for Visit * Reason Comments Injections Lupron * Treatment/Therapy Plan Authorization (Routine) - Authorized Specialty Diagnoses / Procedures Referred By Contac t Referred To Contact Hematology and Oncology Diagnoses Malignant neoplasm of prostate Procedures TC LEUPROLIDE ACETATE 7.5MG, FOR DEPOST SUSPENSION (LUPRON DEPOT) [id number] LUPRON DEPOT Deyvi Ibrahim MD [address] [place] [address] DR HEMATOLOGY [place] [address] Deyvi Ibrahim MD [address] [place] [address] DR HEMATOLOGY [place] [address] Referral ID Status Reason Start Date Expiration Date V isits Requested Visits Authorized [id number] Authorized 08/13/2022 03/12/2024 99 99 Encounter Details Date Type Department Care Team (Late st Contact Info) Description 07/18/2022 4:00 PM EST Infusion Hematology Oncology at [address] [phone] Malignant neoplasm of prostate Social [...] as of this encounter Progress Notes * Britany Lazo RN - 07/18/2022 4:00 PM EST Infusion Note Diagnosis:Prostate Cancer Treatment: [...] EST Office Visit Hematology/Oncolog y at [address] [phone] Deyvi Ibrahim MD [facility] [place] [address] Isabel Berry APRN [facility] [place] [address] 08/05/2024 12:00 PM EST Infusion Hematology Oncology at [address] [phone] 08/27/2024 10:00 AM EST Hospital Encounter [place] [phone] Gulshan Elder MD [facility] [place] [address] 08/27/2024 10:00 AM EST Anesthesia [place] [phone] Swati Gonzalez MD [facility] [place] [address] 08/27/2024 10:00 AM EST - 08/27/2024 11:00 AM EST [place] [phone] Gulshan Elder MD [facility] [place] [address] EGD, UPPER GI ENDOSCOPY (WRVU 2.09) Scheduled [...] 22.5 mg, Intramuscular, ONCE, 1 dose, On Sun07/18/22 at 1615, , Routine, This agent is restricted to outpatient use. Is this drug being given as an outpatient? Yes Given 07/18/2022 3:58 PM EST 22.5 mg documented in this encounter Care Teams Machine Tool Builder Relationship Specialty Start Date End Date Yoni Ramírez MD [address] [place] [id number] PCP - General 07/05/10 documented as of this encounter
--- OUTSIDE RECORDS SUMMARY | 2024-07-31 18:42 | XMS_ITS | Encounter Summary ---
Author Organization [facility] Address [facility] [place] [address] Care Team Providers Care Orchid Transplanter Name Role Phone Yoni Ramírez MD Primary Care Provider [phone] Encounter Details Date Type Department Care Team (Latest Contact Info) Description 06/28/2022 Travel Social History Tobacco Use Types Packs/Day [...] EST Office Visit Hematology/Oncolog y at [address] [phone] Deyvi Ibrahim MD [facility] DR HEMATOLOGY [place] [address] Isabel Berry APRN [facility] [place] [address] 08/05/2024 12:00 PM EST Infusion Hematology Oncology at [address] [phone] 08/27/2024 10:00 AM EST Hospital Encounter [place] [phone] Gulshan Elder MD [facility] [place] [address] 08/27/2024 10:00 AM EST Anesthesia [place] [phone] Swati Gonzalez MD [facility] DR [place] [address] 08/27/2024 10:00 AM EST - 08/27/2024 11:00 AM EST Surgery [place] [phone] Gulshan Elder MD [facility] [place] [address] EGD, UPPER GI ENDOSCOPY (WRVU 2.09) Scheduled [...] on filedocumented in this encounter Care Teams Orchid Transplanter Relationship Specialty Start Date End Date Yoni Ramírez MD [address] [place] [address] PCP - General 07/05/10 documented as of this encounter
--- OUTSIDE RECORDS SUMMARY | 2024-07-31 18:42 | XMS_ITS | Encounter Summary ---
Author Organization [facility] Address [facility] [place] [address] Care Team Providers Care Forming Yardage Control Operator Name Role Phone Yoni Ramírez MD Primary Care Provider [phone] Encounter Details Date Type Department Care Team (Latest Contact Info) Description 06/23/2022 Travel Social History Tobacco Use Types Packs/Day [...] AM EST Office Visit Hematology/Oncolog y at [address] [phone] Deyvi Ibrahim MD [facility] DR [place] [address] Isabel Berry APRN [facility] [place] [address] 08/05/2024 12:00 PM EST Infusion Hematology Oncology at [address] [phone] 08/27/2024 10:00 AM EST Hospital Encounter [place] [phone] Gulshan Elder MD [facility] [place] [address] 08/27/2024 10:00 AM EST Anesthesia [place] [phone] Swati Gonzalez MD [facility] [place] [address] 08/27/2024 10:00 AM EST - 08/27/2024 11:00 AM EST Surgery [place] [phone] Gulshan Elder MD [facility] [place] [address] EGD, UPPER GI ENDOSCOPY (WRVU 2.09) Scheduled [...] on filedocumented in this encounter Care Teams Forming Yardage Control Operator Relationship Specialty Start Date End Date Yoni Ramírez MD [address] [place] [address] PCP - General 07/05/10 documented as of this encounter
--- OUTSIDE RECORDS SUMMARY | 2024-07-31 18:42 | XMS_ITS | Encounter Summary ---
Author Organization [facility] Address [facility] [place] [address] Care Team Providers Care Glueline Worker Name Role Phone Yoni Ramírez MD Primary Care Provider [phone] Encounter Details Date Type Department Care Team (Latest Contact Info) Description 06/06/2022 Travel Social History Tobacco Use Types Packs/Day [...] EST Office Visit Hematology/Oncolog y at [address] [phone] Deyvi Ibrahim MD [facility] [place] [address] Isabel Berry APRN [facility] [place] [place] [address] 08/05/2024 12:00 PM EST Infusion Hematology Oncology at [address] [phone] 08/27/2024 10:00 AM EST Hospital Encounter [place] [phone] Gulshan Elder MD [facility] [place] [address] 08/27/2024 10:00 AM EST Anesthesia [place] [phone] Swati Gonzalez MD [facility] [place] [address] 08/27/2024 10:00 AM EST - 08/27/2024 11:00 AM EST Surgery [place] [phone] Gulshan Elder MD [facility] [place] [address] EGD, UPPER GI ENDOSCOPY (WRVU 2.09) Scheduled Procedures Name Priority Associated Diagnoses Date/Ti ks EGD, UPPER GI ENDOSCOPY (WRVU 2.09) Abnormal [...] on filedocumented in this encounter Care Teams Glueline Worker Relationship Specialty Start Date End Date Yoni Ramírez MD [address] [place] [id number] PCP - General 07/05/10 documented as of this encounter
--- OUTSIDE RECORDS SUMMARY | 2024-07-31 18:42 | XMS_ITS | Encounter Summary ---
Author Organization [facility] [place] [address] Care Team Providers Care Complaint Evaluation Supervisor Name Role Phone Yoni Ramírez MD Primary Care Provider [phone] Encounter Details Date Type Department Care Team (Late st Contact Info) Description 06/19/2022 Notes Only Radiation Oncology at [address] [phone] Jamila Rdz, RN Social History [...] Sign Reading Time Taken Comments Blood Pressure 138/85 06/19/2022 2:25 PM EST Pulse 65 06/19/2022 2:25 PM EST Temperature 37 ??C (98.6 ??F) 06/19/2022 2:25 PM EST Respiratory Rate 20 06/19/2022 2:25 PM EST Oxygen Saturation 99% 06/19/2022 2:25 PM EST Inhaled Oxygen Concentration - - Weight - - Height - - Body Mass Index - - documented in this encounter Progress Notes * Jamila Rdz RN - 06/19/2022 2:24 PM EST Background: Patient last treated 06/09/22 and has received 13 Fx totaling 2340 cGy for prostate cancer. Has been hospitalized at [facility] for severe N/V and dehydration which led to acute kidney failure. Please see [facility] medical records which are filed in Media section of his chart. Patient seen briefly prior to scheduled xrt today. He states that he is feeling well enough for treatment today. Please see vitals taken. He continues to have some nausea which he manages with antiemetics. Has tried to stay hydrated by drinking fluids in small frequent amounts and feels that he hasbeen able to adequately manage. Has follow up with PCP scheduled. documented in this encounter Plan of Treatment Upcoming Encounters Date Type Department Care Team (Latest Contact Info) Description 08/05/2024 11:30 AM EST Office Visit Hematology/Oncolog y at [address] [phone] Deyvi Ibrahim MD [facility] DR [place] [address] Isabel Berry APRN [facility] [place] [address] 08/05/2024 12:00 PM EST Infusion Hematology Oncology at [address] [phone] 08/27/2024 10:00 AM EST Hospital Encounter [place] [phone] Gulshan Elder MD [facility] [place] [address] 08/27/2024 10:00 AM EST Anesthesia [place] [address] Swati Gonzalez MD [facility] [place] [address] 08/27/2024 10:00 AM EST - 08/27/2024 11:00 AM EST Surgery [place] [phone] Gulshan Elder MD [facility] [place] [address] EGD, UPPER GI ENDOSCOPY (WRVU 2.09) Scheduled [...] on filedocumented in this encounter Care Teams Complaint Evaluation Supervisor Relationship Specialty Start Date End Date Yoni Ramírez MD [address] [place] [address] PCP - General 07/05/10 documented as of this encounter
--- OUTSIDE RECORDS SUMMARY | 2024-07-31 18:42 | XMS_ITS | Encounter Summary ---
Author Organization [facility] [place] [address] Care Team Providers Care Chrome Tanning Drum Operator Name Role Phone Yoni Ramírez MD Primary Care Provider [phone] Reason for Visit * Reason Onset Date Comments Other 05/29/2022 Hold abiraterone Encounter Details Date Type Department Care Team (Late st Contact Info) Description 05/29/2022 Telephone Hematology/Oncology at [address] [phone] Earlene Casas, TODD Other (Hold abiraterone) Social History Tobacco Use Types Packs/Day Years [...] Telephone Encounter - Earlene Casas RN - 05/29/2022 4:49 PM EDT Called and spoke with Jeff and told hi per Dr. Ibrahim he is to hold the abiraterone and prednisone until he sees him on 06/06. Jeff agrees with plan. documented in this encounter Plan of Treatment Upcoming Encounters Date Type Department Care Team (Latest Contact Info) Description 08/05/2024 11:30 AM EST Office Visit Hematology/Oncolog y at [address] [phone] Deyvi Ibrahim MD [facility] HEMATOLOGY [place] [address] Isabel Berry APRN [facility] DR [place] [address] 08/05/2024 12:00 PM EST Infusion Hematology Oncology at [address] [phone] 08/27/2024 10:00 AM EST Hospital Encounter [place] [address] Gulshan Elder MD [facility] DR [place] [address] 08/27/2024 10:00 AM EST Anesthesia Event [place] [address] Swati Gonzalez MD [facility] DR ANESTHESIOLOGY [place] [address] 08/27/2024 10:00 AM EST - 08/27/2024 11:00 AM EST Surgery [place] [phone] Gulshan Elder MD [facility] DR [place] [address] EGD, UPPER GI ENDOSCOPY (WRVU 2.09) Scheduled [...] on filedocumented in this encounter Care Teams Chrome Tanning Drum Operator Relationship Specialty Start Date End Date Yoni Ramírez MD [address] [place] [id number] PCP - General 07/05/10 documented as of this encounter
--- OUTSIDE RECORDS SUMMARY | 2024-07-31 18:43 | XMS_ITS | Encounter Summary ---
Author Organization [facility] [place] [address] Care Team Providers Care Health Plan Advisor Name Role Phone Yoni Ramírez MD Primary Care Provider [phone] Encounter Details Date Type Department Care Team (Late st Contact Info) Description 05/18/2022 3:00 PM EDT Office Visit Radiation Oncology at [address] [phone] Yariel Ernandez MD [address] [place] [address] DR RADIATION ONCOLOGY [place], [place] [id number] Malignant neoplasm of prostate Social History Tobacco [...] place to sleep or slept in a intermediate (including now)? No 04/13/2022 Sex and Gender Information Value Date Recorded Sex Assigned at Not on file Gender Identity Not on file Sexual Orientation Not on file documented as of this encounter Last Filed Vital Signs Vital Sign Reading Time Taken Comments Blood Pressure 145/75 05/18/2022 3:00 PM EDT Pulse 72 05/18/2022 3:00 PM EDT Temperature 36.9 ??C (98.4 ??F) 05/18/2022 3:00 PM ED T Respiratory Rate 18 05/18/2022 3:00 PM EDT Oxygen Saturation 100% 05/18/2022 3:00 PM EDT Inhaled Oxygen Concentration - - Weight 95.4 kg (210 lb 6.4 oz) 05/18/2022 3:00 P M EDT Height - - Body Mass Index 31.06 04/25/2022 1:33 PM EDT documented in this encounter Progress Notes * Tia Tam MD - 05/18/2022 3:00 PM EDT Images from the original note were not included. [facility] Medicine Radiation Oncology Radiation Oncology [...] (Lupron Depot) IM 22.5 mg 22.5 mg Modality: VMAT Initial Treatment Site Pelvis Prescribed Dose 45Gy in 25 fractions Boost Treatment site Prostate and Seminal vesicles Prescribed Dose 79.2 Gy in 44 fractions Current Dose: 7.2 Gy in 4 fractions Interval Clinical Course General: No changes since last seen. Started this week. Severe hot flashes- on clonidine rx'ed by PCP Dr Ramírez. : No frequency or urgency. 3-4 times nocturia. GI: Abdominal pain since coil insertion- some relief with BMs and passing gas, but pain returns. He also notes loose stools since coil insertion as well. He has a long h/o diverticosis/itis and his Dr Ramírez has been following these issues for quite some time. Nutrition: Weight today at start of therapy is 95.4. Eating normal diet. Performance Status KPS Score [...] confined to bed or chair Medications Medications 05/18/22 1520 Medication Sig Taking? vortioxetine (Trintellix) 10 mg Tablet Take 10 mg by mouth daily. Yes abiraterone (Zytiga) 250 mg Tablet Take 4 tablets by mouth daily. Take on empty stomach 1 hour before meals or 2 hours after. Please call clinic before starting medication. Yes predniSONE (Deltasone) 5 mg Tablet Take 1 tablet by mouth daily. Yes HYDROmorphone (Dilaudid) 4 [...] hr Take 1 capsule by mouth daily. naloxone (Narcan) 4 mg/actuation [place], Non-Aerosol Narcan 4 mg/actuation nasal spray Take 1 spray as needed by nasal route. acetaminophen (TYLENOL) 500 mg Tablet Take 2 tablets by mouth every 6 hours as needed for Pain. Patient not taking: No sig reported Exam Vitals: BP 145/75 (Patient Position: Sitting) Pulse 72 Temp 36.9 ??C (98.4 ??F) Resp 18 Wt 95.4 kg (210 lb 6.4 oz) SpO2 100% BMI 31.06 kg/m?? General: Appears well, in no distress Abd: Soft, reports suprapubic tenderness Imaging/Labs Interval setup imaging has been checked and approved. See Aria for details. Impression/Plan Tolerance to radiotherapy / ADT: Started RT today. Tolerating as anticipated. Continue as planned. ADT - will start effexor 37.5mg for hot flashes. Next dose Lupron due in July. Abd Pain: Discussed abdominal pain with Jeff Simmons's PCP. Dr. Ramírez notes long history of abdominal pain with extensive work-up in the past. Dr. Ramírez would like further imaging to help characterizeand has ordered a CT a/p and he will follow-up on those results. Additionally discussed FODMAP diet. Followup: RTC for on-treatment assessment next week. No orders of the defined types were placed in this encounter. Carly Tam MD PGY3 ??? National Cancer [place] (NCI) Comprehensive Cancer [facility] ??? [place] [employer] Commission on Cancer (ACS Benjamin) Accredited Cancer Program ??? [place] [employer] (ACR) Accredited Radiation Oncology Program I have seen the patient in person, reviewed and edited the resident's above history and I agree with the details as written. The assessment and plan were formulated in discussion with me and I agree with them as documented. Pertinent History: Patient stable. Pertinent Exam: Appears well, in no distress. Major issues addressed: Jeff reports suprapubic tenderness that improves with BMs and flatus. They started around the time that he had to use an enema for his fiducial placement prep. His PCP is aware of these concerns as they long predate radiotherapy. He will be ordering a contrast CT A/P to evaluate given concerns of diverticular disease. In the meantime I have recommended a low FODMAP diet to reduce fermenting agents in the gut. Regarding intolerable HF's we will start effexor and titrate upwards as needed. Assessment / Plan: he is tolerating treating as expected. No significant toxicity noted other than those described above. Continue RT without changes. Yariel Ernandez MD, MS Making Machine Catcher Radiation Oncology documented in this encounter Plan of Treatment Upcoming Encounters Date Type Department Care Team (Latest Contact Info) Description 08/05/2024 11:30 AM EST Office Visit Hematology/Oncolog y at [address] [phone] Deyvi Ibrahim MD [facility] HEMATOLOGY [place] [address] Isabel Berry APRN [facility] [place] [address] 08/05/2024 12:00 PM EST Infusion Hematology Oncology at [address] [phone] 08/27/2024 10:00 AM EST Hospital Encounter [place] [phone] Gulshan Elder MD [facility] [place] [address] 08/27/2024 10:00 AM EST Anesthesia [place] [phone] Swati Gonzalez MD [facility] [place]ESTHESI[place] [address] 08/27/2024 10:00 AM EST - 08/27/2024 11:00 AM EST Surgery [place] [phone] Gulshan Elder MD [facility] [place] [address] EGD, UPPER GI ENDOSCOPY (WRVU 2.09) Scheduled [...] colon documented in this encounter Care Teams Health Plan Advisor Relationship Specialty Start Date End Date Yoni Ramírez MD [address] [place] [address] PCP - General 07/05/10 documented as of this encounter
--- OUTSIDE RECORDS SUMMARY | 2024-07-31 18:43 | XMS_ITS | Encounter Summary ---
Author Organization [facility] [place] [address] Care Team Providers Care Distance Education Director Name Role Phone Yoni Ramírez MD Primary Care Provider Encounter Details Date Type Department Care Team (Late st Contact Info) Description 01/18/2022 Telephone Hematology/Oncology at [address] [phone] Saima Fuentes Social History Tobacco Use Types Packs/Day Years Used Date Smoking Tobacco: Former Cigarettes 1 25 0 08/13/1986 - 08/13/2011 Smokeless Tobacco: Never Alcohol Use Standard Drinks/Week Comments Not Currently 0 (1 standard drink = 0.6 oz pur e alcohol) Overall Financial Resource Strain (CARDIA) Answe r Date Recorded How hard is it for you to pa y for the very basics like food, housing, medical care, and heating? Very hard 10/26/2021 Hunger Vital Sign Answer Date Recorded Within the past 12 months, y ou worried that your food would run out before you got the money to buy more. Sometimes true Within the past 12 months, t he food you bought just didn't last and you didn't have money to get more. Sometimes true PRAPARE - Transportation Answer Date Re corded In the past 12 months, has l ack of transportation kept you from medical appointments or from getting medications? Yes 10/11 In the past 12 months, has l ack of transportation kept you from meetings, work, or from getting things needed for daily living? Yes 10/26/2021 Housing Stability Vital Sign Answer Jason e Recorded In the last 12 months, was t here a time when you were not able to pay the mortgage or rent on time? Yes 10/26/2021 In the last 12 months, how many places have you lived? 1 10/26/2021 In the last 12 months, was t here a time when you did not have a steady place to sleep or slept in a senior living (including now)? No 10/26/2021 Sex and Gender Information Value Date Recorded Sex Assigned at Not on file Gender Identity Not on file Sexual Orientation Not on file documented as of this encounter Miscellaneous Notes * Telephone Encounter - Saima Rivas - 01/18/2022 1:46 PM EDT Left a VM for Jeff requesting he return a call to the office to confirm his appointment scheduled on 01/24. documented in this encounter Plan of Treatment Upcoming Encounters Date Type Department Care Team (Latest Contact Info) Description 08/05/2024 11:30 AM EST Office Visit Hematology/Oncolog y at [address] [phone] Deyvi Ibrahim MD [facility] DR [place] [address] Isabel Berry APRN [facility] [place] [address] 08/05/2024 12:00 PM EST Infusion Hematology Oncology at [address] [phone] 08/27/2024 10:00 AM EST Hospital En[place] [address] Gulshan Elder MD [facility] [place] [address] 08/27/2024 10:00 AM EST Anesthesia [place] [address] Swati Gonzalez MD [facility] [place] [address] 08/27/2024 10:00 AM EST - 08/27/2024 11:00 AM EST [place] [phone] Gulshan Elder MD [facility] [place] [address] EGD, UPPER GI ENDOSCOPY (WRVU 2.09) Scheduled [...] on filedocumented in this encounter Care Teams Distance Education Director Relationship Specialty Start Date End Date Yoni Ramírez MD [address] [place] [id number] PCP - General 07/05/10 documented as of this encounter
--- OUTSIDE RECORDS SUMMARY | 2024-07-31 18:43 | XMS_ITS | Encounter Summary ---
Author Organization [facility] [place] [address] Care Team Providers Care Tank Pumper Name Role Phone Yoni Ramírez MD Primary Care Provider [phone] Reason for Visit * Reason Onset Date Comments New Medication Request 02/24/2022 Starting abirateone Encounter Details Date Type Department Care Team (Late st Contact Info) Description 02/24/2022 Telephone Hematology/Oncology at [address] [phone] Earlene Casas RN New Medication Request (Starting abirateone) Social History Tobacco Use Types Packs/Day Years [...] like food, housing, medical care, and heating? Hard 02/18/2022 Hunger Vital Sign Answer Date Recorded Within the past 12 months, y ou worried that your food would run out before you got the money to buy more. Often true Within the past 12 months, t he food you bought just didn't last and you didn't have money to get more. Sometimes true 04/2022 PRAPARE - Transportation Answer Date Re corded In the past 12 months, has l ack of transportation kept you from medical appointments or from getting medications? No 04/2022 In the past 12 months, has l ack of transportation kept you from meetings, work, or from getting things needed for daily living? No 02/18/2022 Housing Stability Vital Sign Answer Jason e Recorded In the last 12 months, was t here a time when you were not able to pay the mortgage or rent on time? Yes 02/18/2022 In the last 12 months, how many places have you lived? 1 02/18/2022 In the last 12 months, was t here a time when you did not have a steady place to sleep or slept in a custodial (including now)? No 02/18/2022 Sex and Gender Information Value Date Recorded Sex Assigned at Not on file Gender Identity Not on file Sexual Orientation Not on file documented as of this encounter Miscellaneous Notes * Telephone Encounter - Earlene Casas RN - 02/24/2022 3:56 PM EDT Oral Chemotherapy Follow-up Note 02/24/2022 Jeff Arreguin, 1965 Assessment of self-administration of oral chemotherapy is performed via phone call with caregiver. Caregiver name: lianna. The caregiver: ?? filled the prescription at [facility] [place] [facility] and began taking this medication on 02/23/22 (date). ?? read back the name and strength of the oral chemotherapy from the label, including the instructions for use as follows: Take 4 tablets on empty stomach two hours after meals and one hour before. (prednsione with food marsha) ?? was able to repeat directions for use in his/her own words and demonstrated understanding of theregimen, including safe handling of oral chemotherapy and its side effects. ?? did not have further questions or problems regarding the oral chemotherapy. ?? does not require further assistance in order to comply with oral chemotherapy. ?? was reminded to call the oncology clinic with any concerns or questions 24 hours a day / 7 days a week and contact information was reviewed. ?? Appointment with Dr. Ibrahim Tuesday 02/27 at 1030 am labs one hour before Lianna agrees. documented in this encounter Plan of Treatment Upcoming Encounters Date Type Department Care Team (Latest Contact Info) Description 08/05/2024 11:30 AM EST Office Visit Hematology/Oncolog y at [address] [phone] Deyvi Ibrahim MD [facility] [place] [address] Isabel Berry APRN [facility] [place] [address] 08/05/2024 12:00 PM EST Infusion Hematology Oncology at [address] [phone] 08/27/2024 10:00 AM EST Hospital Encounter [place] [phone] Gulshan Elder MD [facility] [place] [address] 08/27/2024 10:00 AM EST Anesthesia Event [place] [address] Swati Gonzalez MD [facility] [place] [address] 08/27/2024 10:00 AM EST - 08/27/2024 11:00 AM EST Surgery [place] [phone] Gulshan Elder MD [facility] [place] [place] [address] EGD, UPPER GI ENDOSCOPY (WRVU 2.09) Scheduled [...] on filedocumented in this encounter Care Teams Tank Pumper Relationship Specialty Start Date End Date Yoni Ramírez MD [address] [place] [id number] PCP - General 07/05/10 documented as of this encounter
--- OUTSIDE RECORDS SUMMARY | 2024-07-31 18:43 | XMS_ITS | Encounter Summary ---
Author Organization [facility] [place] [address] Care Team Providers Care Rn Shift Mgr Name Role Phone Yoni Ramírez MD Primary Care Provider [phone] Encounter Details Date Type Department Care Team (Late st Contact Info) Description 05/02/2022 Notes Only [place] [phone] Patricia Williamson, QUARRY MANAGER Social History Tobacco Use Types Packs/Day Years [...] as of this encounter Progress Notes * Patricia Williamson MSW - 05/02/2022 10:27 AM EDT Referral from Keri Langley RN for gas card. [facility] MANA[facility] took a $25 gas card down to 2K Material Damage Adjuster for her to give to Jeff when he checks in at RAD/ONC at 2:15 today. SW Intervention: Transportation resources documented in this encounter Plan of Treatment Upcoming Encounters Date Type Department Care Team (Latest Contact Info) Description 08/05/2024 11:30 AM EST Office Visit Hematology/Oncolog y at [address] [phone] Deyvi Ibrahim MD [facility] [place] [address] Isabel Berry APRN [facility] [place] [address] 08/05/2024 12:00 PM EST Infusion Hematology Oncology at [address] [phone] 08/27/2024 10:00 AM EST Hospital En[place] [address] Gulshan Elder MD [facility] [place] [address] 08/27/2024 10:00 AM EST Anesthesia [place] [address] Swati Gonzalez MD [facility] [place] [address] 08/27/2024 10:00 AM EST - 08/27/2024 11:00 AM EST [place] [phone] Gulshan Elder MD [facility] [place] [address] EGD, UPPER GI ENDOSCOPY (WRVU 2.09) Scheduled [...] on filedocumented in this encounter Care Teams Rn Shift Mgr Relationship Specialty Start Date End Date Yoni Ramírez MD [address] [place] [phone] PCP - General 07/05/10 documented as of this encounter
--- OUTSIDE RECORDS SUMMARY | 2024-07-31 18:43 | XMS_ITS | Encounter Summary ---
Author Organization [facility] [place] [address] Care Team Providers Care Parking Meter Collector Name Role Phone Yoni Ramírez MD Primary Care Provider [phone] Reason for Visit * Reason Onset Date Comments Patient Education 04/20/2022 Patient return ed this RN phone call for pre procedure instructions Encounter Details Date Type Department Care Team (Late st Contact Info) Description 04/20/2022 Telephone Radiation Oncology at [address] [phone] Geovani Handy, RN Patient Education (Patient returned this RN phone call for pre procedure instructions) Social History Tobacco Use Types Packs/Day Years [...] Telephone Encounter - Geovani Handy RN - 04/20/2022 12:31 PM EDT Radiation Oncology Nurse Note [facility] [place], [place] Patient Information for Prostate Fiducial Placement. Procedure Date: 04/24/2022 Arrival Time: 12:30pm Time of Procedure: 1pm Location: [facility] at the Radiation Oncology Department section 2K Why Fiducial Placement or also known as ???gold coils?? ? You and your doctor have discussed treatment options and have decided that prostate fiducial placement, ???Gold coils, would be helpful in your external beam radiation treatment. The coil is a very small, 24-karat gold coil that will sit within the prostate and help to locate it on the planning CT scan. Usually 3 coils are inserted in the gland. Some patients also receive the Space Oar Implant during this procedure: N/A for this patient WHY A SPACEOAR IMPLANT? ?? The SpaceOAR will help avoid rectal injury during radiation treatment. ?? The space between the prostate and the rectum can be increased by an absorbable gel spacer. The SpaceOAR System is a soft gel-like material that temporarily moves the rectum 1/2 away from the high dose radiation area protecting the rectum. It will stay in your body for three months while you are receiving your radiation treatment, and is then naturally absorbed by your body and cleared in your urine in approximately six months. THE WEEK BEFORE THE PROCEDURE: STOP TAKING BLOOD THINNERS Stop taking medications that might thin your blood(anticoagulants) 1 week before your cold coil is scheduled to be placed i.e.; aspirin, ibuprofen, gingko biloba, Coumadin, Lovenox, etc. Please ask if you are not sure about any of your medications. For you this means stop taking : [ ASPIRIN ] Prescriptions to get filled: Prescription for Antibiotic: to prevent infection [X ] Levofloxacin 500 mg 1 hour before the procedure. Prescription to help you relax (optional, if needed) [ X ] Lorazepam 1 mg po 1 hour prior to procedure. Bring 2nd pill with you to procedure in case youneed a repeat dose. You must have someone drive you home if you take this medication due to its sedative properties. [ X ]2 fleet enemas- you will need to pick this up over the encounter. No prescription needed. Prescription for steroid: to prevent swelling at implant site. [ X] dexamethasone: 2 mg twice a day for 3 days > Start day of procedure, once you get back home after procedure 2 mg once a day for 3 days THE DAY BEFORE THE PROCEDURE: ?? Eat a normal dinner (evening meal) ?? Administer one fleets enema before bedtime THE MORNING AND DAY OF THE PROCEDURE: ?? Administer the second fleets enema (2-3 hours prior to scheduled time of procedure) ?? Eat a normal meal and take your usual daily medications (except anticoagulants) ?? Take antibiotic levofloxacin 1 hour prior to procedure. ?? If ordered: take Lorazepam 1 mg, po 1 hour prior to procedure. Plan to arrive in the Radiation/Oncology Department 30 minutes before scheduled procedure. See above arrival time. You will be asked to change in to a hospital gown (remove everything from your waist down.) How is the procedure done? You will be brought into a procedure room and asked to lie on your back with your legs placed in leg supports.. After application of lidocaine lubricant, an ultrasound probe will be inserted into your rectum in order to visualize your prostate gland. After you are given a local anesthetic, the 2 needles containing the coils will be gently inserted through the skin into your prostate gland. AFTER THE GOLD COIL IMPLANT PROCEDURE: ?? You may resume normal activity ( no bike riding, horseback riding, snowmobiling, or ATV riding for a couple days to avoid discomfort) ?? You may resume sexual intercourse in 1 week. ?? You may take extra-strength or regular Tylenol for any discomfort. ?? Start dexamethasone as directed. 1 pill twice a day for 3 days, then 1 pill once a day for 3 days. Always take this medication with food. Avoid taking too late in the evening as it may causes insomnia. It may cause temporary elevation of blood sugar for diabetic patients. ?? You may resume any NSAIDs 48 hours after the procedure. Call us if you notice any unusual swelling, difficulty with urination, pain or if you have any other concerns. Future Appointments: ?? MRI : You will receive separate instructions specifically from the hospital concerning your exact arrival time and what you need to do to prepare for this. Date: 05/02/2022 @ 6:30pm ?? Your planning session (simulation) will be done at : [ ] [facility] at the Radiation Oncology Department section 2K [ ] [place], [place] [Date: ] [Time: arrive at ] For proper visualization of prostate, it is required that you have a moderately full bladder. This will require you to arrive 30 minutes before scheduled appointment and drink 2 glasses of water upon arrival. There are no restrictions with eating. How to reach us: [facility] [phone] For weekends and after hours: Call [facility] ask for the marine service station attendant radiation oncologist Patient was provided a printed copy of these instructions 04/14/2022. This was reviewed with him. He states his questions have been answered and he verbalized understanding of these instructions. documented in this encounter Plan of Treatment Upcoming Encounters Date Type Department Care Team (Latest Contact Info) Description 08/05/2024 11:30 AM EST Office Visit Hematology/Oncolog y at [address] [phone] Deyvi Ibrahim MD [facility] DR [place] [address] Isabel Berry APRN [facility] [place] [address] 08/05/2024 12:00 PM EST Infusion Hematology Oncology at [address] [phone] 08/27/2024 10:00 AM EST Hospital [place] [phone] Gulshan Elder MD [facility] [place] [address] 08/27/2024 10:00 AM EST Anesthesia [place] [phone] Swati Gonzalez MD [facility] [place] [address] 08/27/2024 10:00 AM EST - 08/27/2024 11:00 AM EST [place] [phone] Gulshan Elder MD [facility] [place] [address] EGD, UPPER GI ENDOSCOPY (WRVU 2.09) Scheduled [...] this encounter Visit Diagnoses Diagnosis Prostate cancer Malignant neoplasm of prostate Anxiety Anxiety state, unspecified Abnormal CT of the abdomen Nonspecific (abnormal) findings on radiological and other examination of abdominal area, including retroperitoneum Esophagitis Esophagitis, unspecified Gastroesophageal reflux disease with esophagitis, unspecified whether hemorrhage Colitis Other and unspecified noninfectious gastroenteritis and colitis Screen for colon cancer Special screening for malignant neoplasms, colon documented in this encounter Care Teams Parking Meter Collector Relationship Specialty Start Date End Date Yoni Ramírez MD [address] [place] [address] PCP - General 07/05/10 documented as of this encounter
--- OUTSIDE RECORDS SUMMARY | 2024-07-31 18:43 | XMS_ITS | Encounter Summary ---
Author Organization [facility] [place] [address] Care Team Providers Care Evp General Counsel Name Role Phone Yoni Ramírez MD Primary Care Provider [phone] Encounter Details Date Type Department Care Team (Late st Contact Info) Description 01/31/2022 Notes Only Hematology/Oncology at [address] [phone] Makenna Sorto, [facility] OFFICE OF CARE MANAGEMENT Social History Tobacco [...] in a senior care (including now)? No 10/26/2021 Sex and Gender Information Value Date Recorded Sex Assigned at Not on file Gender Identity Not on file Sexual Orientation Not on file documented as of this encounter Progress Notes * Makenna Sorto MSW - 01/31/2022 1:53 PM EDT Follow up with pt and during his clinic visit today. We forgot the receipts. Reminded pt andwife of receipts needed to submit to the [facility] for the financial assistance they gave pt for transportation costs and heating wood. Pt indicated finances are tight and hopefully may be able toreturn to work. He is expecting RT at some point in the near future and [employer] will plan to follow up with him at that point to discuss other resources that are available once pt is in active treatment.Pt/ agreeable to this. Again reminded them to bring in the receipts. Will continue to follow for support and resources. Brief assessment Financial resources documented in this encounter Plan of Treatment Upcoming Encounters Date Type Department Care Team (Latest Contact Info) Description 08/05/2024 11:30 AM EST Office Visit Hematology/Oncolog y at [address] [phone] Deyvi Ibrahim MD [facility] [address] [place] [address] Isabel Berry APRN [facility] [place] [address] 08/05/2024 12:00 PM EST Infusion Hematology Oncology at [address] [phone] 08/27/2024 10:00 AM EST Hospital Encounter [place] [phone] Gulshan Elder MD [facility] [place] [address] 08/27/2024 10:00 AM EST Anesthesia Event [place] [phone] Swati Gonzalez MD [facility] [place] [address] 08/27/2024 10:00 AM EST - 08/27/2024 11:00 AM EST Surgery [place] [phone] Gulshan Eledr MD [facility] [place] [address] EGD, UPPER GI ENDOSCOPY (WRVU 2.09) Scheduled [...] on filedocumented in this encounter Care Teams Evp General Counsel Relationship Specialty Start Date End Date Yoni Ramírez MD [address] [place] [id number] PCP - General 07/05/10 documented as of this encounter
--- OUTSIDE RECORDS SUMMARY | 2024-07-31 18:43 | XMS_ITS | Encounter Summary ---
Author Organization [facility] [place] [address] Care Team Providers Care Ground Operations Supervisor Name Role Phone Yoni Ramírez MD Primary Care Provider [phone] Encounter Details Date Type Department Care Team (Late st Contact Info) Description 02/24/2022 Telephone Radiation Oncology at [address] [phone] Saima Fuentes Social History Tobacco [...] slept in a penitentiary (including now)? No 02/18/2022 Sex and Gender Information Value Date Recorded Sex Assigned at Not on file Gender Identity Not on file Sexual Orientation Not on file documented as of this encounter Miscellaneous Notes * Telephone Encounter - Saima Rivas - 02/24/2022 9:59 AM EDT I left Jeff a voicemail as he has not shown up for his consultation with Dr. Ernandez today. I requested he return a call to the office at his soonest convenience. documented in this encounter Plan of Treatment Upcoming Encounters Date Type Department Care Team (Latest Contact Info) Description 08/05/2024 11:30 AM EST Office Visit Hematology/Oncolog y at [address] [phone] Deyvi Ibrahim MD [facility] [place] [address] Isabel Berry APRN [facility] [place] [address] 08/05/2024 12:00 PM EST Infusion Hematology Oncology at [address] [phone] 08/27/2024 10:00 AM EST Hospital Encounter [place] [address] Gulshan Elder MD [facility] [place] [address] 08/27/2024 10:00 AM EST Anesthesia Event [place] [address] Swati Gonzalez MD [facility] [place] [address] 08/27/2024 10:00 AM EST - 08/27/2024 11:00 AM EST Surgery [place] [phone] Gulshan Elder MD [facility] [place] [address] EGD, UPPER GI ENDOSCOPY (WRVU 2.09) Scheduled [...] on filedocumented in this encounter Care Teams Ground Operations Supervisor Relationship Specialty Start Date End Date Yoni Ramírez MD [address] [place] [address] PCP - General 07/05/10 documented as of this encounter
--- OUTSIDE RECORDS SUMMARY | 2024-07-31 18:43 | XMS_ITS | Encounter Summary ---
Author Organization [facility] [place] [address] Care Team Providers Care Operations Chief Name Role Phone Yoni Ramírez MD Primary Care Provider [phone] Reason for Visit * Reason Onset Date Comments Medication Refill 03/03/2022 Encounter Details Date Type Department Care Team (Late st Contact Info) Description 03/03/2022 Refill Primary Care at [address] [phone] Christy Hemphill, HOT CAR OPERATOR Social History Tobacco Use Types Packs/Day Years [...] slept in a [facility] (including now)? No 02/18/2022 Sex and Gender Information Value Date Recorded Sex Assigned at Not on file Gender Identity Not on file Sexual Orientation Not on file documented as of this encounter Miscellaneous Notes * Telephone Encounter - Christy Hemphill LPN - 03/03/2022 3:06 PM EDTFrom: Jeff Arreguin To: Office of Tracy Felipe APRN Sent: 03/03/2022 1:08 PM EDT Subject: Medication Renewal Request Refills have been requested for the following medications: Calcium Citrate-Vitamin D3 315-250 mg-unit Tablet [Tracy Felipe] Preferred pharmacy: [facility] - [address] [employer] Delivery method: Pickup Medication renew als requested in this message routed separately: aspirin EC 81 mg Tablet, Delayed Release (E.C.) [Howard Segundo] documented in this encounter Plan of Treatment Upcoming Encounters Date Type Department Care Team (Latest Contact Info) Description 08/05/2024 11:30 AM EST Office Visit Hematology/Oncolog y at [address] [phone] Deyvi Ibrahim MD [facility] HEMAT[place]Y [place] [address] Isabel Berry APRN [facility] [place] [address] 08/05/2024 12:00 PM EST Infusion Hematology Oncology at [address] [phone] 08/27/2024 10:00 AM EST Hospital Encounter [place] [phone] Gulshan Elder MD [facility] [place] [address] 08/27/2024 10:00 AM EST Anesthesia [place] [phone] Swati Gonzalez MD [facility] [place] [address] 08/27/2024 10:00 AM EST - 08/27/2024 11:00 AM EST Surgery [place] [phone] Gulshan Elder MD [facility] [place] [address] EGD, UPPER GI ENDOSCOPY (WRVU 2.09) Scheduled [...] on filedocumented in this encounter Care Teams Operations Chief Relationship Specialty Start Date End Date Yoni Ramírez MD [address] [place] [id number] PCP - General 07/05/10 documented as of this encounter
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
--- OUTSIDE RECORDS SUMMARY | 2024-07-31 18:43 | XMS_ITS | Encounter Summary ---
Author Organization [facility] [place] [address] Care Team Providers Care Label Press Operator Name Role Phone Yoni Ramírez MD Primary Care Provider [phone] Reason for Visit * Reason Comments Prior Authorization Abiraterone acetate 250 mg tablets Encounter Details Date Type Department Care Team (Late st Contact Info) Description 02/01/2022 Specialty [place] [phone] Lashay Travis Social History Tobacco Use Types Packs/Day Years [...] in a nursing home (including now)? No 10/26/2021 Sex and Gender Information Value Date Recorded Sex Assigned at Not on file Gender Identity Not on file Sexual Orientation Not on file documented as of this encounter Progress Notes * Lashay Travis - 02/01/2022 11:38 AM EDT [facility], Medication Prior Authorization Submission Patient: Jeff Arreguin Patient : 1965 Patient Address: [address] [place] [phone] Phone: [phone] (home) Medication Name: ABIRATERONE 250 MG TABLET Medication ID: [id number] Subscriber Insurance: Downstream Subscriber Insurance Comment: Fax: Physician: DEYVI BENJAMIN Physician Comment: Sent Via: Perez: [id number] Ref/Case/PA#: [id number] Medication Strength Frequency Requested: Take 4 tablets by mouth daily. Qty/Day Supply: 120/30 New Start: New to Therapy Diagnosis & ICD-10 Code: Malignant neoplasm of prostate (C61) Patient Notified: No Submission Notes: Carolynn Travis 02/01/22 11:40 AM * Lashay Travis - 02/01/2022 11:38 AM EDT [facility], Prior Authorization Approval Medication Name: ABIRATERONE 250 MG TABLET Medication ID: [id number] Approval Dates: 01/02/2022 to 01/31/2025 Case/Reference #: [id number] Approval notification Received via: Fax Copay: $1585.99 Copay assistance: Patient Assistance Referral Copay Notes: PA approved- $1585.99 copay for 30 day supply, no open grants for prostate cancer. Please send Rx to [facility] for internal financial assistance program. Fillable at [facility]: Yes Lashay Travis 02/01/22 1:56 PM documented in this encounter Plan of Treatment Upcoming Encounters Date Type Department Care Team (Latest Contact Info) Description 08/05/2024 11:30 AM EST Office Visit Hematology/Oncolog y at [address] [phone] Deyvi Benjamin MD [facility] [address] [place] [address] Isabel Berry APRN [facility] [place] [address] 08/05/2024 12:00 PM EST Infusion Hematology Oncology at [address] [phone] 08/27/2024 10:00 AM EST Hospital En[place] [phone] Gulshan Elder MD [facility] [address] 08/27/2024 10:00 AM EST Anesthesia [place] [phone] Swati Gonzalez MD [facility] [place] [address] 08/27/2024 10:00 AM EST - 08/27/2024 11:00 AM EST [place] [address] Gulshan Elder MD [facility] [place] [address] EGD, UPPER GI ENDOSCOPY (WRVU 2.09) Scheduled [...] on filedocumented in this encounter Care Teams Label Press Operator Relationship Specialty Start Date End Date Yoni Ramírez MD [address] [place] [phone] PCP - General 07/05/10 documented as of this encounter
--- OUTSIDE RECORDS SUMMARY | 2024-07-31 18:43 | XMS_ITS | Encounter Summary ---
Author Organization [facility] [place] [address] Care Team Providers Care Career Center Advisor Name Role Phone Yoni Ramírez MD Primary Care Provider [phone] Encounter Details Date Type Department Care Team (Late st Contact Info) Description 12/20/2021 Telephone Hematology/Oncology at [address] [phone] Earlene Casas RN Social History Tobacco Use Types Packs/Day [...] slept in a intermediate (including now)? No 10/26/2021 Sex and Gender Information Value Date Recorded Sex Assigned at Not on file Gender Identity Not on file Sexual Orientation Not on file documented as of this encounter Miscellaneous Notes * Telephone Encounter - Earlene Casas RN - 12/20/2021 1:29 PM EDT Pt did not show up to [address] Ibrahim. [place] called and left message on voice mail. called back and said Jeff is nauseated and is not coming in today. I spoke wit her and asked her if they know why he is nauseated. She was not sure and said he does have diverticulosis and it might be from that. Explained we wanted to start treating him for his cancer and she understands and states he will be in next week. documented in this encounter Plan of Treatment Upcoming Encounters Date Type Department Care Team (Latest Contact Info) Description 08/05/2024 11:30 AM EST Office Visit Hematology/Oncolog y at [address] [phone] Deyvi Ibrahim MD [facility] [address] [place] [address] Isabel Berry APRN [facility] [place] [address] 08/05/2024 12:00 PM EST Infusion Hematology Oncology at [address] [phone] 08/27/2024 10:00 AM EST Hospital Encounter [place] [address] Gulshan Elder MD [facility] [place] [address] 08/27/2024 10:00 AM EST Anesthesia Event Gastroenterology at [place] [phone] Swati Gonzalez MD [facility] [place] [address] 08/27/2024 10:00 AM EST - 08/27/2024 11:00 AM EST Surgery Gastroenterology at [place] [phone] Gulshan Elder MD [facility] [place] [address] EGD, UPPER GI ENDOSCOPY (WRVU 2.09) Scheduled [...] on filedocumented in this encounter Care Teams Career Center Advisor Relationship Specialty Start Date End Date Yoni Ramírez MD [address] [place] [address] PCP - General 07/05/10 documented as of this encounter
--- OUTSIDE RECORDS SUMMARY | 2024-07-31 18:43 | XMS_ITS | Encounter Summary ---
Author Organization [facility] Address [facility] [place] [address] Care Team Providers Care Milling Machinist Name Role Phone Yoni Ramírez MD Primary Care Provider Reason for Referral * Consultation (Routine) - Closed Specialty Diagnoses / Procedures Referred By Contac t Referred To Contact Radiation Oncology Diagnoses Malignant neoplasm of prostate Deyvi Ibrahim MD [facility] [place] [address] Stj Rad Onc Treatment [address] [place] [phone] Referral ID Status Reason Start Date Expiration Date V isits Requested Visits Authorized [id number] Closed Consult, Test & Treat 12/27/2021 12/27/2022 1 1 Reason for Visit * Reason Comments Follow-up Encounter Details Date Type Department Care Team (Late st Contact Info) Description 12/27/2021 1:00 PM EDT Office Visit Hematology/Oncology at [address] [phone] Deyvi Ibrahim MD [facility] [place] [address] Malignant neoplasm of prostate (Primary Dx); Androgen deprivation therapy Social History [place] [facility] (including [place])? No 10/26/2021 Sex and Gender Information Value Date Recorded Sex Assigned at Not on file Gender Identity Not on file Sexual Orientation Not on file documented as of this encounter Last Filed Vital Signs Vital Sign Reading Time Taken Comments Blood Pressure 133/72 12/27/2021 12:57 PM EDT Pulse 77 12/27/2021 12:57 PM EDT Temperature 36.8 ??C (98.2 ??F) 12/27/2021 12:57 PM E DT Respiratory Rate 16 12/27/2021 12:57 PM EDT Oxygen Saturation 99% 12/27/2021 12:57 PM EDT Inhaled Oxygen Concentration - - Weight 91.6 kg (202 lb) 12/27/2021 12:57 PM EDT Height 175.3 cm (5' 9) 12/27/2021 12:57 PM EDT Body Mass Index 29.83 12/27/2021 12:57 PM EDT documented in this encounter Progress Notes * Deyvi Ibrahim MD - 12/27/2021 1:00 PM EDT Images from the original note were not included. 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 Enamorado [...] was consistent with prostatic adenocarcinoma grade 4, [place] 4+4 He complains of low back pain and perineal pain. He is urination has improved since TURP Interval history: Mr. Arreguin is in clinic for follow-up appointment on prostate cancer and degarelixinjection. He missed his previous appointment as he did not feel well and was nauseated/vomiting. Today he does not complain of nausea or vomiting. Still experience pain in his. ADL and low back area. He does take Dilaudid prescribed by his primary care doctor for pain. His urination has significantly improved since surgery. PMH: No interval changes since last visit Hyperlipidemia, obesity, hypertension, osteoarthritis, history of kidney disease, diverticulitis, Social History: Quit smoking 10 years ago, does not drink alcohol, he lives at home with his , he is on disability, Family History: Mother had a breast and ovarian cancer, 2 aunts had breast and ovarian cancer Allergies: Allergies Allergen Reactions ??? Ephedrine Anxiety ??? Suboxone [Buprenorphine-Naloxone] Hives ??? Lexapro [Escitalopram] Other (See Comments) [place] odd Medications: Your Medications Accurate as of December 27, 2021 1:07 PM. If you have any questions, ask your nurse or doctor. Continued medications with new dosing Dose Details acetaminophen 500 mg Tab Commonly known as: Tylenol Take 2 tablets by mouth every 6 hours as needed for Pain. What changed: when to take this 1,000 mg Refills: 0 Calcium Citrate-Vitamin D3 315 mg-6.25 mcg (250 unit) Tab Take 2 tablets by mouth 3 times daily. What changed: ?? when to take this ?? reasons to take this 2 tablet Refills: 0 Continued medications, unchanged Dose Details aspirin EC 81 mg Tbec Take 1 tablet by mouth every evening. 81 mg Quantity: 30 tablet Refills: 3 atenoloL 50 mg Tab Commonly known as: Tenormin Take 25 mg by mouth every evening. 25 mg Refills: 0 atorvastatin 20 mg Tab Commonly known as: Lipitor TAKE ONE TABLET BY MOUTH EVERY EVENING Refills: 0 HYDROmorphone 4 mg Tab Commonly known as: Dilaudid Take 4 mg by mouth 3 times daily. 4 mg Refills: 0 metoprolol succinate XL 100 mg Tablet sr Commonly known as: Toprol-XL Take 100 mg by mouth every evening. 100 mg Refills: 0 naloxone 4 mg/actuation [place] Commonly known as: Narcan Narcan 4 mg/actuation nasal spray Take 1 spray as needed by nasal route. Refills: 0 ondansetron ODT 4 mg Tbdl Commonly known as: Zofran-ODT Take 4 mg by mouth every 8 hours as needed for Nausea. 4 mg Refills: 0 oxybutynin 5 mg Tab Commonly known as: Ditropan Take 5 mg by mouth every evening. 5 mg Refills: 0 pantoprazole EC 40 mg Tbec Commonly known as: Protonix daily as needed. Refills: 0 phenazopyridine 100 mg Tab Commonly known as: Pyridium Take 200 mg by mouth every evening. 200 mg Refills: 0 potassium chloride 20 mEq Tbsr Commonly known as: K-Tab daily as needed. Refills: 0 prochlorperazine 25 mg Supp Commonly known as: Compazine Place 25 mg rectally every 12 hours as needed. 25 mg Refills: 0 sertraline 100 mg Tab Commonly known as: ZOLOFT Take 100 mg by mouth every evening. 100 mg Refills: 0 tamsulosin 0.4 mg Cap Commonly known as: Flomax TAKE TWO CAPSULES BY MOUTH AT BEDTIME Refills: 0 Review of Systems: Constitutional: Negative for fever, [...] axillary nodes normal Neurologic: Normal Vitals BP 133/72 (Patient Position: Sitting) Pulse 77 Temp 36.8 ??C (98.2 ??F) (Temporal) Resp 16 Ht 175.3 cm (5' 9) Wt 91.6 kg (202 lb) SpO2 99% BMI 29.83 kg/m?? Pathology: 170 gene panel:TMPRSS2, ERG TMPRSS2- ERG fusion transcript 10/20/21 Bladder neck tumor and prostatic tissue, transurethral resection: ?Prostatic adenocarcinoma, grade group 4, Jj ? grade 4+4, involving 100% of the submitted ? tissue. INTERPRETATION Block ? Antibody ? Result (Positive/Negative) A-1 ?MLH1 ?Positive, intact nuclear staining ?MSH2 ?Positive, intact nuclear staining ?MSH6 ?Positive, intact nuclear staining ?PMS2 ?Positive, intact nuclear staining Interpretation: Labs: Latest Reference Range & Units 12/19/21 11:12 WBC 4.0 - 9.5 x10(3)/mcL 9.2 RBC 4.58 - 5.54 x10(6)/mcL 4.42 (L) Hemoglobin 13.7 - 16.5 g/dL 14.4 Hematocrit 40.5 - 48.5 % 42.6 MCV 82.9 - 93.1 fL 96.4 (H) MCH 27.5 - 32.1 pg 32.6 (H) MCHC 32.0 - 35.7 g/dL 33.8 RDWSD 36.0 - 45.0 fL 47.7 (H) RDWCV 11.4 - 13.8 % 13.2 Platelets 145 - 357 x10(3)/mcL 310 MPV 7.6 - 12.9 fL 9.6 NRBC % Auto % 0.0 NRBC Abs Auto 0.000 - 0.000 x10(3)/mcL 0.000 Neutr Abs (ANC) 1.70 - 6.10 x10(3)/mcL 4.34 Neutrophils % % 47.3 Immature Gran % % 0.20 [1] Lymphocytes % % 38.4 Monocytes % % 12.0 Eosinophils % % 1.9 Basophils % % 0.2 Adrianna Gran Abs 0.00 - 0.04 x10(3)/mcL 0.02 Lymphocytes Abs 0.9 - 3.2 x10(3)/mcL 3.5 (H) Monocyte Abs 0.3 - 0.9 x10(3)/mcL 1.1 (H) Eosinophils Abs 0.0 - 0.4 x10(3)/mcL 0.2 Basophils Abs 0.0 - 0.1 x10(3)/mcL 0.0 Sodium 135 - 145 mmol/L 137 Potassium 3.5 - 5.0 mmol/L 4.3 [2] Chloride 98 - 107 mmol/L 97 (L) CO2 22 - 31 mmol/L 24 Anion Gap 5 - 15 mmol/L 16 (H) BUN 10 - 20 mg/dL 31 (H) Creatinine 0.80 - 1.50 mg/dL 1.26 Estimated GFR >=60 mL/min/1.73 m?? 62 [3] Calcium 8.5 - 10.5 mg/dL 9.1 Glucose Lvl 65 - 199 mg/dL 136 [4] Total Protein 6.1 - 8.0 g/dL 7.2 Albumin 3.2 - 5.2 g/dL 4.8 Total Bilirubin 0.2 - 1.3 mg/dL 1.0 Alk Phos 40 - 130 unit/L 84 AST 0 - 39 unit/L 14 ALT 0 - 55 unit/L 11 PSA Total (Ultrasensitive) 0.00 - 4.00 ng/mL 3.02 [5] PSA testosteron 12/19/21 3.02 11/02/21 1.79 3.29 10/06/21 2.1 09/03/20 3.0 Imagin12/19/21 PSMA PET scan: IMPRESSION 1. Abnormal tracer [...] and Plan: Diagnosis: Prostatic adenocarcinoma, grade 4, [place] 4+4, metastatic to regional lymph nodes Treatment: none Mr. Arreguin is 56 years old gentleman [...] He would like to be treated at [facility] close to his home. 12/27/21 PSMA PET scan revealed bnormal tracer uptake involving the majority of the [...] secondary hormonal therapy with abiraterone and prednisone #Pain management: Follows with primary care provider. #Financial hardship: Mr. Arreguin would like to discuss with social insurance analyst. Plan: 1. Degarelix 240 mg today 2. Referral to radiation oncology 3. Next visit in 4 weeks with blood work and Lupron 22.5 mg Mr. Arreguin is accompanied by his today. [...] EST Office Visit Hematology/Oncolog y at [address] [phone] Deyvi Ibrahim MD [facility] [place] [address] Isabel Berry APRN [facility] [place] [address] 08/05/2024 12:00 PM EST Infusion Hematology Oncology at [address] [phone] 08/27/2024 10:00 AM EST Hospital En[place] [phone] Gulshan Elder MD [facility] [place] [address] 08/27/2024 10:00 AM EST Anesthesia [place] [phone] Swati Gonzalez MD [facility] [place] [address] 08/27/2024 10:00 AM EST - 08/27/2024 11:00 AM EST [place] [phone] Gulshan Elder MD [facility] [address] EGD, UPPER GI ENDOSCOPY (WRVU 2.09) Scheduled [...] Scheduled Referrals Name Type Priority Associated Diagnoses Orde r Schedule Referral to Radiation Oncology Outpatient Referral Routine Malignant neoplasm of prostate Ordered: 12/27/2021 documented as of this encounter Visit Diagnoses Diagnosis Malignant neoplasm of prostate- Primary Androgen deprivation therapy Encounter for therapeutic drug monitoring Abnormal CT of the abdomen Nonspecific (abnormal) findings on radiological and other examination of abdominal area, including retroperitoneum Esophagitis Esophagitis, unspecified Gastroesophageal reflux disease with esophagitis, unspecified whether hemorrhage Colitis Other and unspecified noninfectious gastroenteritis and colitis Screen for colon cancer Special screening for malignant neoplasms, colon documented in this encounter Care Teams Milling Machinist Relationship Specialty Start Date End Date Yoni Ramírez MD [address] [place] [address] PCP - General 07/05/10 documented as of this encounter
--- OUTSIDE RECORDS SUMMARY | 2024-07-31 18:43 | XMS_ITS | Encounter Summary ---
Author Organization [facility] [place] [address] Care Team Providers Care Newspaper Delivery Counselor Name Role Phone Yoni Ramírez MD Primary Care Provider [phone] Reason for Visit * Reason Onset Date Comments Follow-up 02/14/2022 [facility] trying t o reach pt Encounter Details Date Type Department Care Team (Late st Contact Info) Description 02/14/2022 Telephone Hematology/Oncology at [address] [phone] Earlene Casas, TODD Follow-up ([facility] trying to reach pt) Social History Tobacco Use Types Packs/Day Years [...] slept in a [facility] (including now)? No 10/26/2021 Sex and Gender Information Value Date Recorded Sex Assigned at Not on file Gender Identity Not on file Sexual Orientation Not on file documented as of this encounter Miscellaneous Notes * Telephone Encounter - Earlene Casas RN - 02/14/2022 3:29 PM EDT I received a message from [facility] stating they have been trying to reach Jeff with no return call. I called Jeff today was able to reach him on alternative phone number. He states he has been at [facility] for a week inpt and had no way to communicate with anyone. I gave him [facility] phone number [phone] and asked him to call right away so they can get this medication out to him. He agrees to do this. documented in this encounter Plan of Treatment Upcoming Encounters Date Type Department Care Team (Latest Contact Info) Description 08/05/2024 11:30 AM EST Office Visit Hematology/Oncolog y at [address] [phone] [facility] HEMATOLOGY [place] [address] [facility] [place] [address] 08/05/2024 12:00 PM EST Infusion Hematology Oncology at [address] [phone] 08/27/2024 10:00 AM EST Hospital Encounter [place] [phone] [facility] [place] [address] 08/27/2024 10:00 AM EST Anesthesia [place] [phone] [facility] [place] [address] 08/27/2024 10:00 AM EST - 08/27/2024 11:00 AM EST [place] [phone] [facility] [place] [place] [address] EGD, UPPER GI ENDOSCOPY (WRVU 2.09) Scheduled [...] on filedocumented in this encounter Care Teams Newspaper Delivery Counselor Relationship Specialty Start Date End Date Yoni Ramírez MD [address] [place] [address] PCP - General 07/05/10 documented as of this encounter
--- OUTSIDE RECORDS SUMMARY | 2024-07-31 18:43 | XMS_ITS | Encounter Summary ---
Author Organization [facility] [place] [address] Care Team Providers Care Oyster Grower Name Role Phone Yoni Ramírez MD Primary Care Provider Encounter Details Date Type Department Care Team (Late st Contact Info) Description 03/28/2022 Telephone Hematology/Oncology at [address] [phone] Saima Fuentes Social History Tobacco [...] slept in a fci (including now)? No 02/18/2022 Sex and Gender Information Value Date Recorded Sex Assigned at Not on file Gender Identity Not on file Sexual Orientation Not on file documented as of this encounter Miscellaneous Notes * Telephone Encounter - Saima Rivas - 03/28/2022 11:38 AM EDT Lianna, Jeff's , called to cancel his visit today because their car broke down and they are notgoing to be able to make it in for the visit. Lianna requested to push his appointment out to 04/25, when Jeff is due back for Lupron. She said they are looking to get the car fixed at the end of the month and will plan to be in clinic for his Radiation Consultation on 04/14. Jeff has a street bike and will plan to go for labs at [facility], prior tohis visit on 04/25. documented in this encounter Plan of Treatment Upcoming Encounters Date Type Department Care Team (Latest Contact Info) Description 08/05/2024 11:30 AM EST Office Visit Hematology/Oncolog y at [address] [phone] Deyvi Ibrahim MD [facility] [place] [address] Isabel Berry APRN [facility] [place] [address] 08/05/2024 12:00 PM EST Infusion Hematology Oncology at [address] [phone] 08/27/2024 10:00 AM EST Hospital Encounter [place] [phone] Gulshan Elder MD [facility] [place] [address] 08/27/2024 10:00 AM EST Anesthesia [place] [phone] Swati Gonzalez MD [facility] [place] [address] 08/27/2024 10:00 AM EST - 08/27/2024 11:00 AM EST Surgery [place] [phone] Gulshan Elder MD [facility] [place] [address] EGD, UPPER GI ENDOSCOPY (WRVU 2.09) Scheduled [...] on filedocumented in this encounter Care Teams Oyster Grower Relationship Specialty Start Date End Date Yoni Ramírez MD [address] [place] [address] PCP - General 07/05/10 documented as of this encounter
--- OUTSIDE RECORDS SUMMARY | 2024-07-31 18:43 | XMS_ITS | Encounter Summary ---
Author Organization [facility] [place] [address] Care Team Providers Care College Intern Name Role Phone Yoni Ramírez MD Primary Care Provider [phone] Reason for Visit * Reason Onset Date Comments Other 05/02/2022 transportation Encounter Details Date Type Department Care Team (Late st Contact Info) Description 05/02/2022 Telephone Radiation Oncology at [address] [phone] Makenna Sorto, [facility] OFFICE OF CARE MANAGEMENT Other (transportation) Social History Tobacco Use Types Packs/Day Years [...] encounter Miscellaneous Notes * Telephone Encounter - Makenna Sorto MSW - 05/02/2022 8:55 AM EDT Request to reach out to pt to discuss transportaion issues especially the cost of travel. TC pt both mobile and alternate number but no answer. Left message requesting a call back. Transportation resources Call back from . She reports they have gas to get to for todays appointments but not sure can make it back home. Explained that a gas card will be available to them today per Patricia Williamson CCM-VINAY. Discussed need to come up with a solution to pt's transportation needs once RT treatments start. Suggested contacting [employer] to see if they can assist. Pt does have Medicaid. They have one registered vehicle in the home but hopeful to have some work after recent interview. They can not afford thecost of gas for travel. They are living on pt's SSDI of $1318 mo. Pt has accessed several funds already - [employer], [employer] [place], [facility] cancer fund and [employer] mainly for assistance with gas cards. Asked to update [employer] once plan for RT treatments clearer and can address further. documented in this encounter Plan of Treatment Upcoming Encounters Date Type Department Care Team (Latest Contact Info) Description 08/05/2024 11:30 AM EST Office Visit Hematology/Oncolog y at [address] [phone] Deyvi Ibrahim MD [facility] [place] [address] Isabel Berry APRN [facility] [place] [address] 08/05/2024 12:00 PM EST Infusion Hematology Oncology at [address] [phone] 08/27/2024 10:00 AM EST Hospital En[place] [phone] Gulshan Elder MD [facility] [address] 08/27/2024 10:00 AM EST Anesthesia [place] [address] Swati Gonzalez MD [facility] [place] [address] 08/27/2024 10:00 AM EST - 08/27/2024 11:00 AM EST [place] [phone] Gulshan Elder MD [facility] [place] [address] EGD, UPPER GI ENDOSCOPY (WRVU 2.09) Scheduled Procedures Name Priority Associated Diagnoses Date/Ti ct EGD, UPPER GI ENDOSCOPY (WRVU 2.09) Abnormal [...] on filedocumented in this encounter Care Teams College Intern Relationship Specialty Start Date End Date Yoni Ramírez MD [address] [place] [address] PCP - General 07/05/10 documented as of this encounter
--- OUTSIDE RECORDS SUMMARY | 2024-07-31 18:43 | XMS_ITS | Encounter Summary ---
Author Organization [facility] [place] [address] Care Team Providers Care Manager Of Corporate Communications Name Role Phone Yoni Ramírez MD Primary Care Provider [phone] Encounter Details Date Type Department Care Team (Late st Contact Info) Description 01/26/2022 Telephone Hematology/Oncology at [address] [phone] Saima Fuentes Social History Tobacco [...] slept in a longterm (including now)? No 10/26/2021 Sex and Gender Information Value Date Recorded Sex Assigned at Not on file Gender Identity Not on file Sexual Orientation Not on file documented as of this encounter Miscellaneous Notes * Telephone Encounter - Saima Rivas - 01/26/2022 9:08 AM EDT I called Jeff and left a voicemail to confirm we have him on the schedule for 01/31 at 1pm, with labs at [facility] one hour prior documented in this encounter Plan of Treatment Upcoming Encounters Date Type Department Care Team (Latest Contact Info) Description 08/05/2024 11:30 AM EST Office Visit Hematology/Oncolog y at [address] [phone] Deyvi Ibrahim MD [facility] DR HEMATOLOGY [place] [address] Isabel Berry APRN [facility] [place] [address] 08/05/2024 12:00 PM EST Infusion Hematology Oncology at [address] [phone] 08/27/2024 10:00 AM EST Hospital En[place] [address] Gulshan Elder MD [facility] [place] [address] 08/27/2024 10:00 AM EST Anesthesia [place] [address] Swati Gonzalez MD [facility] DR [place] [address] 08/27/2024 10:00 AM EST - 08/27/2024 11:00 AM EST [place] [phone] Gulshan Elder MD [facility] [place] [address] EGD, UPPER GI ENDOSCOPY (WRVU 2.09) Scheduled [...] on filedocumented in this encounter Care Teams Manager Of Corporate Communications Relationship Specialty Start Date End Date Yoni Ramírez MD [address] [place] [address] PCP - General 07/05/10 documented as of this encounter
--- OUTSIDE RECORDS SUMMARY | 2024-07-31 18:43 | XMS_ITS | Encounter Summary ---
Author Organization [facility] Address [facility] [place] [address] Care Team Providers Care Systems Engineering Manager Name Role Phone Yoni Ramírez MD Primary Care Provider Reason for Visit * Reason Comments Injections SQ degarelix, loadin g dose * Treatment/Therapy Plan Authorization (Routine) - Closed Specialty Diagnoses / Procedures Referred By Contsahil t Referred To Contact Diagnoses Malignant neoplasm of prostate Procedures DEGARELIX INJECTION [id number] DEGARELIX Deyvi Ibrahim MD [facility] DR HEMATOLOGY [place] [address] [facility] Hem Onc Office [address] [place] [phone] Referral ID Status Reason Start Date Expiration Date Visits Re quested Visits Authorized [id number] Closed 11/02/2021 01/30/2022 99 99 Encounter Details Date Type Department Care Team (Late st Contact Info) Description 12/27/2021 1:30 PM EDT Infusion Hematology Oncology at [address] [phone] Malignant neoplasm of prostate Social [...] of this encounter Progress Notes * Татьяна Serrano, RN - 12/27/2021 1:30 PM EDT INFUSION THERAPY ADMINISTRATION NOTES DIAGNOSIS: Prostate cancer CYCLE #: Loading dose REASON FOR VISIT: Clinic visit and begin therapy with degarelix SUBJECTIVE: Jeff offers no complaints. OBJECTIVE: VSS. Seen by provider. Ready to treat. LAB DATA: Evaluated by provider. IV ACCESS: NA Pre administration: Medication orders independently verified for drug name, route, and dosage per patient's height, weight and BSA by Татьяна Serrano, RN and Staff Pharmacist(s). REACTIONS (DESCRIPTION, TIME, INTERVENTION AND EFFECTIVENESS) none ASSESSMENT: Jeff was awake, alert and tolerated treatment well. degarelix injected both sides of lower abd, SQ.Instructed on potential side effects including possible redness and induration at the sites. He verbalized understanding. PLAN: Return to clinic per routine. documented in this encounter Plan of Treatment Upcoming Encounters Date Type Department Care Team (Latest Contact Info) Description 08/05/2024 11:30 AM EST Office Visit Hematology/Oncolog y at [address] [phone] Deyvi Ibrahim MD [facility] DR HEMATOLOGY [place] [address] Isabel Berry APRN [facility] [place] [address] 08/05/2024 12:00 PM EST Infusion Hematology Oncology at [address] [phone] 08/27/2024 10:00 AM EST Hospital Encounter [place] [phone] Gulshan Elder MD [facility] [place] [address] 08/27/2024 10:00 AM EST Anesthesia Event [place] [phone] Swati Gonzalez MD [facility] DR [place] [address] 08/27/2024 10:00 AM EST - 08/27/2024 11:00 AM EST Surgery [place] [phone] Gulshan Elder MD [facility] [place] [address] EGD, UPPER GI ENDOSCOPY (WRVU 2.09) Scheduled [...] MAR Action Action Date Dose Rate Site degarelix (Firmagon) (240 mg/6 mL) injection 240 mg 240 mg, Subcutaneous, ONCE, 1 dose, On 12/27/21 at 1345, Routine, This agent is restricted to outpatient use. Is this drug being given as an outpatient? Yes Given 12/27/2021 2:21 PM EDT 240 mg 20-Other (document in comment section) documented in this encounter Care Teams Systems Engineering Manager Relationship Specialty Start Date End Date Yoni Ramírez MD [address] [place] [address] PCP - General 07/05/10 documented as of this encounter
--- OUTSIDE RECORDS SUMMARY | 2024-07-31 18:43 | XMS_ITS | Encounter Summary ---
Author Organization [facility] Address [facility] [place] [address] Care Team Providers Care Track Equipment Operator Name Role Phone Yoni Ramírez MD Primary Care Provider [phone] Reason for Visit * Reason Comments Follow-up Encounter Details Date Type Department Care Team (Latest Contact Info) Description 04/24/2022 1:00 PM EDT Procedure visit [place] [address] Zenobia Minor MD [facility] [place] [address] Malignant neoplasm of prostate Social History Tobacco [...] Sign Reading Time Taken Comments Blood Pressure 131/79 04/24/2022 12:29 PM EDT Pulse 78 04/24/2022 12:29 PM EDT Temperature 36.4 ??C (97.5 ??F) 04/24/2022 12:29 PM E DT Respiratory Rate 18 04/24/2022 12:29 PM EDT Oxygen Saturation 99% 04/24/2022 12:29 PM EDT Inhaled Oxygen Concentration - - Weight 93.5 kg (206 lb 3.2 oz) 04/24/2022 12:29 PM EDT Height - - Body Mass Index 30.44 02/28/2022 10:39 AM EDT documented in this encounter Patient Instructions * Patient Instructions* Carla Krishnamurthy RN - 04/24/2022 1:00 PM EDT Patient Information for Gold Coil Placement Procedure Appointments Date: Time: Why do I need coil markers? You and your doctor have discussed treatment options and have decided that gold coils will be helpful in your external beam radiation treatment. The markers are small 24 karat gold coils that will sit within the prostate and help locate the prostate in the planning CT scan and during treatment. Two coils are used--one to beth each side of the gland. The coils are permanent. You will be able to have MRI scans. RX for dexamethasone and for an antibiotic You will need to begin taking this the day of the procedure. Please bring them both with you to your appointment. The morning of the procedure: Take the second Fleets enema (2-3 hours prior to scheduled time of procedure) Eat a normal breakfast and take your morning medications (except anticoagulants) Plan to arrive in the Radiation Department at . You may be given a pill called lorazepam (Ativan) to help your muscles relax for the procedure. Youwill need a new autos delivery driver to take you home if we administer this medication to you. How is it done? You will need to change into gown and remove everything from your waist down. You will be brought into a procedure room and asked to lie on your back with your feet placed in stirrups (similar to when you had your ultrasound guided biopsy). An ultrasound probe will be inserted into your rectum in order to visualize your prostate gland. After you are given a local anesthetic, the two needles containing the coils will be gently inserted through the skin into your prostate gland. After the procedure: You may resume normal activity. Avoid riding on anything that bounces such as snowmobile, ATV, horse back riding or motorcycle riding for one week. You may take extra-strength Tylenol for any discomfort. Finish taking your dexamethasone. Resume your after 48 hours. Call us if you notice any unusual swelling, pain, or if you have any other concerns. Your planning session will be done the following week. Several hours before planning session use a saline enema. Plan to arrive to this appointment with a comfortably full bladder. Section of Radiation Oncology Your physician: Our normal business hours are- Sunday - Sunday 8 AM to 5 PM for [facility] for [facility] If you have questions about your radiation appointments please ask to speak to one of our secretarystaff. If you have questions for a nurse about radiation treatments, radiation side effects or you are notfeeling well it is best to call early in the day. This allows a nurse to return your call by 5 PM the same day. If you call after 4 PM, a nurse will return your call by 5 PM the following day, unlessit is urgent. A Radiation Oncology doctor is front office director after our normal hours and on weekends. To call for urgent medical issues from radiation treatments that can not wait until normal business hours, please call and have the jump roll operator page the Radiation Oncologist front office director. documented in this encounter Progress Notes * Zenobia Minor MD - 04/24/2022 1:00 PM EDT Images from the original note were not included. RADIATION ONCOLOGY FIDUCIAL PROCEDURE NOTE Date: 04/24/22 Patient name: Jeff Arreguin Provider: Zenobia Minor MD Diagnosis: Very high risk prostate cancer, [place] 4+4 = 8, [id number], Stage ALYSSA Treatment Summary: 1. Degarelix x1 (12/27/2021) 2. Lupron Q3 and abiraterone/prednisone (initiated 01/31/2022 and ongoing) Procedures and Rationale: 1. Gold coil fiducial marker placement in prostate for daily image guided localization. Medications: Ativan 2mg PO Levofloxacin 500mg PO Anesthesia: Local lidocaine (1%) Description: Jeff Arreguin was placed in the dorsal lithotomy position with EMLA cream applied to the perineal skin and Lidocaine gel in the anorectum. After a time-out was performed, the perineum was prepped and draped and a transrectal ultrasound probe was placed within the rectum and stabilized using the placement positioning system. Lidocaine (1%) was then used to anesthetize the subcutaneous tissues and the prostate. A needle was then placed trans-perineally into the prostate under ultrasound guidance and a 5mm gold coil (PredictSpring) deployed. This was repeated x2 for a total of 3 fiducials in the prostate. The fiducial positions were confirmed in both sagittal and axial views. Complications: None Estimated Blood Loss: Minimal Disposition: Jeff Arreguin tolerated the procedure well. He will return shortly for MRI imaging and for CT-based simulation and treatment planning, with radiation therapy, under the guidance of Dr. Yariel Ernandez, to proceed thereafter. Zenobia Minor MD 04/24/22 documented in this encounter Plan of Treatment Upcoming Encounters Date Type Department Care Team (Latest Contact Info) Description 08/05/2024 11:30 AM EST Office Visit Hematology/Oncolog y at [address] [phone] Deyvi Ibrahim MD [facility] [place] [address] Isabel Berry APRN [facility] [place] [address] 08/05/2024 12:00 PM EST Infusion Hematology Oncology at [address] [phone] 08/27/2024 10:00 AM EST Hospital Encounter [place] [phone] Gulshan Elder MD [facility] [place] [address] 08/27/2024 10:00 AM EST Anesthesia Event [place] [phone] Swati Gonzalez MD [facility] [place] [address] 08/27/2024 10:00 AM EST - 08/27/2024 11:00 AM EST Surgery [place] [phone] Gulshan Elder MD [facility] [place] [address] EGD, UPPER GI ENDOSCOPY (WRVU 2.09) Scheduled [...] colon documented in this encounter Care Teams Track Equipment Operator Relationship Specialty Start Date End Date Yoni Ramírez MD [address] [place] [address] PCP - General 07/05/10 documented as of this encounter
--- OUTSIDE RECORDS SUMMARY | 2024-07-31 18:43 | XMS_ITS | Encounter Summary ---
Author Organization [facility] [place] [address] Care Team Providers Care Change Control Analyst Name Role Phone Yoni Ramírez MD Primary Care Provider Reason for Visit * Reason Comments Injections IM lupron * Treatment/Therapy Plan Authorization (Routine) - Authorized Specialty Diagnoses / Procedures Referred By Contac t Referred To Contact Hematology and Oncology Diagnoses Malignant neoplasm of prostate Procedures TC LEUPROLIDE ACETATE 7.5MG, FOR DEPOST SUSPENSION (LUPRON DEPOT) [id number] LUPRON DEPOT Deyvi Ibrahim MD [address] [place] [address] DR HEMATOLOGY [place] [address] Deyvi Ibrahim MD [address] [place] [address] DR HEMATOLOGY [place] [address] Referral ID Status Reason Start Date Expiration Date V isits Requested Visits Authorized [id number] Authorized 08/13/2022 03/12/2024 99 99 Encounter Details Date Type Department Care Team (Late st Contact Info) Description 01/31/2022 1:30 PM EDT Infusion Hematology Oncology at [address] [phone] Malignant neoplasm of prostate Social History Tobacco [...] in a group home (including now)? No 10/26/2021 Sex and Gender Information Value Date Recorded Sex Assigned at Not on file Gender Identity Not on file Sexual Orientation Not on file documented as of this encounter Progress Notes * Татьяна Serrano RN - 01/31/2022 1:30 PM EDT Infusion Note Diagnosis:Prostate Cancer Treatment: Lupron Injection Lupron 22.5 mg injected in left buttocks. Initial injection. Literature given. Patient and spouse instructed on side effects of Lupron. Patient states understanding of teaching, Patient aware to call clinic with any questions or concerns. Plan: Return to clinic as scheduled. documented in this encounter Plan of Treatment Upcoming Encounters Date Type Department Care Team (Latest Contact Info) Description 08/05/2024 11:30 AM EST Office Visit Hematology/Oncolog y at [address] [phone] Deyvi Ibrahim MD [facility] DR HEMATOLOGY [place] [address] Isabel Berry APRN [facility] [place] [address] 08/05/2024 12:00 PM EST Infusion Hematology Oncology at [address] [phone] 08/27/2024 10:00 AM EST Hospital En[place] [phone] Gulshan Elder MD [facility] [place] [address] 08/27/2024 10:00 AM EST Anesthesia [place] [address] Swati Gonzalez MD [facility] DR [place]ESTHESI[place] [address] 08/27/2024 10:00 AM EST - 08/27/2024 11:00 AM EST [place] [phone] Gulshan Elder MD [facility] [place] [address] EGD, UPPER GI ENDOSCOPY (WRVU 2.09) Scheduled [...] 22.5 mg, Intramuscular, ONCE, 1 dose, On Sun01/31/22 at 1430, Routine, This agent is restricted to outpatient use. Is this drug being given as an outpatient? Yes Given 01/31/2022 2:25 PM EDT 22.5 mg Le ft Gluteal documented in this encounter Care Teams Change Control Analyst Relationship Specialty Start Date End Date Yoni Ramírez MD [address] [place] [address] PCP - General 07/05/10 documented as of this encounter
--- OUTSIDE RECORDS SUMMARY | 2024-07-31 18:43 | XMS_ITS | Encounter Summary ---
Author Organization [facility] [place] [address] Care Team Providers Care Alley Tender Name Role Phone Yoni Ramírez MD Primary Care Provider [phone] Reason for Visit * Reason Onset Date Comments Other 02/21/2022 transportation Encounter Details Date Type Department Care Team (Late st Contact Info) Description 02/21/2022 Telephone Hematology/Oncology at [address] [phone] Makenna Sorto, [facility] OFFICE OF CARE MANAGEMENT Other (transportation) Social [...] slept in a half-way (including now)? No 02/18/2022 Sex and Gender Information Value Date Recorded Sex Assigned at Not on file Gender Identity Not on file Sexual Orientation Not on file documented as of this encounter Miscellaneous Notes * Telephone Encounter - Makenna Sorto MSW - 02/21/2022 3:07 PM EDT TC from Kristy Barnes RN, Nurse Coordinator, [facility] indicating pt's continues to call requesting help with gas cards for her who is getting treatment at [facility]. They havereceived assistance from the [facility] fund which Ms. Barnes has access to and they are not able to continue with this assistance. She is inquiring about other funds available to pt. Explained pt has accessed funds from the [facility] for travel ($225) and gas cards from the [facility]. Pt is coming in for an appointment on 02-24-[address] Ernandez and suggested she encourage pt/ to ask to speak with this PEDIATRICS TEACHER. Pt also has Medicaid for insurance and perhaps he is eligible for transportation from [facility]. Will be available to meet with pt/ to discuss further. Care Coordination Financial resources Transportation resources documented in this encounter Plan of Treatment Upcoming Encounters Date Type Department Care Team (Latest Contact Info) Description 08/05/2024 11:30 AM EST Office Visit Hematology/Oncolog y at [address] [phone] Deyvi Ibrahim MD [facility] DR HEMATOLOGY [place] [address] Isabel Berry APRN [facility] [place] [address] 08/05/2024 12:00 PM EST Infusion Hematology Oncology at [address] [phone] 08/27/2024 10:00 AM EST Hospital En[place] [phone] Gulshan Elder MD [facility] [place] [address] 08/27/2024 10:00 AM EST Anesthesia [place] [address] Swati Gonzalez MD [facility] [place] [address] 08/27/2024 10:00 AM EST - 08/27/2024 11:00 AM EST [place] [address] Gulshan Elder MD [facility] [place] [address] EGD, UPPER GI ENDOSCOPY (WRVU 2.09) Scheduled [...] on filedocumented in this encounter Care Teams Alley Tender Relationship Specialty Start Date End Date Yoni Ramírez MD [address] [place] [address] PCP - General 07/05/10 documented as of this encounter
--- OUTSIDE RECORDS SUMMARY | 2024-07-31 18:43 | XMS_ITS | Encounter Summary ---
Author Organization [facility] [place] [address] Care Team Providers Care Broomcorn Thresher Name Role Phone Yoni Ramírez MD Primary Care Provider [phone] Reason for Visit * Reason Comments Injections Lupron injection * Treatment/Therapy Plan Authorization (Routine) - Authorized Specialty Diagnoses / Procedures Referred By Contac t Referred To Contact Hematology and Oncology Diagnoses Malignant neoplasm of prostate Procedures TC LEUPROLIDE ACETATE 7.5MG, FOR DEPOST SUSPENSION (LUPRON DEPOT) [id number] LUPRON DEPOT Deyvi Ibrahim MD [address] [place] [address] DR HEMATOLOGY [place] [address] Deyvi Ibrahim MD [address] [place] [address] DR HEMATOLOGY [place] [address] Referral ID Status Reason Start Date Expiration Date V isits Requested Visits Authorized [id number] Authorized 08/13/2022 03/12/2024 99 99 Encounter Details Date Type Department Care Team (Late st Contact Info) Description 04/25/2022 2:00 PM EDT Infusion Hematology Oncology at [address] [phone] Malignant neoplasm of prostate Social History Tobacco [...] as of this encounter Progress Notes * Iraida Sorensen RN - 04/25/2022 2:00 PM EDT Infusion Note Diagnosis:Prostate Cancer Treatment: Lupron Injection Lupron 22.5 mg injected in right buttocks. Patient instructed on side effects of Lupron. Patient states understanding of teaching, Patient aware to call clinic with any questions or concerns. Plan: Return to clinic as scheduled. documented in this encounter Plan of Treatment Upcoming Encounters Date Type Department Care Team (Latest Contact Info) Description 08/05/2024 11:30 AM EST Office Visit Hematology/Oncolog y at [address] [phone] [facility] DR HEMATOLOGY [place] [address] [facility] [place] [address] 08/05/2024 12:00 PM EST Infusion Hematology Oncology at [address] [phone] 08/27/2024 10:00 AM EST Hospital Encounter [place] [phone] [facility] [place] [address] 08/27/2024 10:00 AM EST Anesthesia Event [place] [phone] [facility] DR [place] [address] 08/27/2024 10:00 AM EST - 08/27/2024 11:00 AM EST Surgery [place] [phone] [facility] [place] [address] EGD, UPPER GI ENDOSCOPY (WRVU 2.09) Scheduled [...] 22.5 mg, Intramuscular, ONCE, 1 dose, On Sun04/25/22 at 1415, Routine, This agent is restricted to outpatient use. Is this drug being given as an outpatient? Yes Given 04/25/2022 2:21 PM EDT 22.5 mg Right Gluteal documented in this encounter Care Teams Broomcorn Thresher Relationship Specialty Start Date End Date Yoni Ramírez MD [address] [place] [id number] PCP - General 07/05/10 documented as of this encounter
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
--- OUTSIDE RECORDS SUMMARY | 2024-07-31 18:43 | XMS_ITS | Encounter Summary ---
Author Organization [facility] [place] [address] Care Team Providers Care Refrigeration Engineering Teacher Name Role Phone Yoni Ramírez MD Primary Care Provider [phone] Reason for Visit * Reason Onset Date Comments Other 01/24/2022 Encounter Details Date Type Department Care Team (Late st Contact Info) Description 01/24/2022 Telephone Hematology/Oncology at [address] [phone] Earlene Casas RN Other Social History Tobacco Use Types Packs/Day Years [...] slept in a jail (including now)? No 10/26/2021 Sex and Gender Information Value Date Recorded Sex Assigned at Not on file Gender Identity Not on file Sexual Orientation Not on file documented as of this encounter Miscellaneous Notes * Telephone Encounter - Earlene Casas RN - 01/24/2022 12:17 PM EDT Pt's called stating Jeff vomiting today. He has been doing this for 10 years on and off. Triedcalling them back to discuss no answer left message to return my call. Will reschedule pt for a week out. Dr. Ibrahim updated. documented in this encounter Plan of Treatment Upcoming Encounters Date Type Department Care Team (Latest Contact Info) Description 08/05/2024 11:30 AM EST Office Visit Hematology/Oncolog y at [address] [phone] Deyvi Ibrahim MD [facility] [place] [address] Isabel Berry APRN [facility] [place] [address] 08/05/2024 12:00 PM EST Infusion Hematology Oncology at [address] [phone] 08/27/2024 10:00 AM EST Hospital En[place] [phone] Gulshan Elder MD [facility] [place] [address] 08/27/2024 10:00 AM EST Anesthesia [place] [phone] Swati Gonzalez MD [facility] [place] [address] 08/27/2024 10:00 AM EST - 08/27/2024 11:00 AM EST [place] [phone] Gulshan Elder MD [facility] [place] [address] EGD, UPPER GI ENDOSCOPY (WRVU 2.09) Scheduled [...] on filedocumented in this encounter Care Teams Refrigeration Engineering Teacher Relationship Specialty Start Date End Date Yoni Ramírez MD [address] [place] [id number] PCP - General 07/05/10 documented as of this encounter
--- OUTSIDE RECORDS SUMMARY | 2024-07-31 18:43 | XMS_ITS | Encounter Summary ---
Author Organization [facility] Address [facility] [place] [address] Care Team Providers Care Market Research Specialist Name Role Phone Yoni Ramírez MD Primary Care Provider [phone] Encounter Details Date Type Department Care Team (Late st Contact Info) Description 01/31/2022 1:00 PM EDT Office Visit Hematology/Oncology at [address] [phone] Deyvi Ibrahim MD [facility] DR HEMATOLOGY [place] [address] Jojo Williamson APRN Androgen deprivation therapy; Malignant neoplasm of prostate; Prostate cancer metastatic [...] slept in a prison (including now)? No 10/26/2021 Sex and Gender Information Value Date Recorded Sex Assigned at Not on file Gender Identity Not on file Sexual Orientation Not on file documented as of this encounter Last Filed Vital Signs Vital Sign Reading Time Taken Comments Blood Pressure 115/65 01/31/2022 1:22 PM EDT Pulse 53 01/31/2022 1:22 PM EDT Temperature 36.2 ??C (97.2 ??F) 01/31/2022 1:22 PM ED T Respiratory Rate 16 01/31/2022 1:22 PM EDT Oxygen Saturation 98% 01/31/2022 1:22 PM EDT Inhaled Oxygen Concentration - - Weight 91.6 kg (202 lb) 01/31/2022 1:22 PM EDT Height 175.3 cm (5' 9.02) 01/31/2022 1:22 PM ED T Body Mass Index 29.82 01/31/2022 1:22 PM EDT documented in this encounter Progress Notes * Deyvi Ibrahim MD - 01/31/2022 1:00 PM EDT Diagnosis: Prostatic adenocarcinoma, 4, [place] 4+4, with [...] was consistent with prostatic adenocarcinoma grade 4, [place] 4+4 He complains of low back pain and perineal pain. He is urination has improved since TURP Interval history: Mr. Arreguin is in clinic for follow-up appointment on prostate cancer and Lupron injection. He tolerated degarelix reasonably well with mild hot flashes and fatigue. There was mild local reaction as well. His urination has significantly improved since surgery. He denies any new pain.. PMH: No interval changes since last visit [...] Hives ??? Lexapro [Escitalopram] Other (See Comments) [place] odd Medications: Your Medications Accurate as of January 31, 2022 1:39 PM. If you have any questions, ask [...] 100 mg Refills: 0 naloxone 4 mg/actuation [place] Commonly known as: Narcan Narcan 4 mg/actuation [...] CAPSULES BY MOUTH AT BEDTIME Refills: 0 Trintellix 10 mg Tab Take [...] axillary nodes normal Neurologic: Normal Vitals BP 115/65 (Patient Position: Sitting) Pulse 53 Temp 36.2 ??C (97.2 ??F) (Temporal) Resp 16 Ht 175.3 cm (5' 9.02) Wt 91.6 kg (202 lb) SpO2 98% BMI 29.82 kg/m?? Pathology: 170 gene panel:TMPRSS2, ERG TMPRSS2- ERG fusion transcript 10/20/21 Bladder neck tumor and prostatic tissue, transurethral resection: ?Prostatic adenocarcinoma, grade group 4, [place] ? grade 4+4, involving 100% of the submitted ? tissue. INTERPRETATION Block ? Antibody ? Result (Positive/Negative) A-1 ?MLH1 ?Positive, intact nuclear staining ?MSH2 ?Positive, intact nuclear staining ?MSH6 ?Positive, intact nuclear staining ?PMS2 ?Positive, intact nuclear staining Interpretation: Labs: 01/31/2022 BUN 29, creatinine 1.2, TB 0.8, AST 19, ALT 26, alkaline phosphatase 83, total protein 7.6, albumin 4.5, WBC 10.2, hemoglobin 13.5, platelet count 265. Latest Reference Range & Units 12/19/21 11:12 [...] - 4.00 ng/mL 3.02 [5] PSA testosteron 01/31/22 pending 12/19/21 3.02 11/02/21 1.79 3.29 10/06/21 2.1 [...] to Lupron 22.5 mg every 3 months Mr. Arreguin is 56 years old gentleman [...] He would like to be treated at [facility] close to his home. 12/27/21 PSMA [...] of Abirateron including fatigue, joint swelling or discomfort, edema, hot flush, diarrhea,vomiting, cough, hypertension, dyspnea, urinary tract infection, and [...] abirateroneand prednisone. Informed verbal consent was obtained. He is scheduled to see our radiation oncologist Dr. Ernandez in about 3 weeks #Pain management: Follows with primary care provider. #Financial hardship: Mr. Arreguin would like to discuss with social research assistant. Plan: 1. Lupron 22.5 mg today 2. Start abiraterone 1000 mg and prednisone 5 mg a day 3. Next visit in 4 weeks with CBC, CMP, PSA, testosterone Mr. [...] EST Office Visit Hematology/Oncolog y at [address] [phone] Deyvi Ibrahim MD [facility] HEMATOLOGY [place] [address] Isabel Berry APRN [facility] [place] [address] 08/05/2024 12:00 PM EST Infusion Hematology Oncology at [address] [phone] 08/27/2024 10:00 AM EST Hospital En[place] [phone] Gulshan Elder MD [facility] [place] [address] 08/27/2024 10:00 AM EST Anesthesia [place] [phone] Swati Gonzalez MD [facility] DR [place] [address] 08/27/2024 10:00 AM EST - 08/27/2024 11:00 AM EST [place] [address] Gulshan Elder MD [facility] [place] [address] EGD, UPPER GI ENDOSCOPY (WRVU 2.09) Scheduled [...] as of this encounter Visit Diagnoses Diagnosis Androgen deprivation therapy Encounter for therapeutic drug monitoring Malignant neoplasm of prostate Prostate cancer metastatic [...] in this encounter Care Teams Market Research Specialist Relationship Specialty Start Date End Date Yoni Ramírez MD [address] [place] [phone] PCP - General 07/05/10 documented as of this encounter
--- OUTSIDE RECORDS SUMMARY | 2024-07-31 18:43 | XMS_ITS | Encounter Summary ---
[place] [address] Care Team Providers Care Instructor Wastewater Treatment Plant Name Role Phone Yoni Ramírez MD Primary Care Provider Reason for Visit * Reason Comments Simulation * Consultation (Routine) - Closed Specialty Diagnoses / Procedures Referred By Contac t Referred To Contact Radiation Oncology Diagnoses Malignant neoplasm of prostate Procedures Simulation for Radiation Therapy Planning Yariel Ernandez MD [address] [place] [address] DR [place] [address] [facility] Rad Onc Office [address] [place] [phone] Referral ID Status Reason Start Date Expiration Date V isits Requested Visits Authorized [id number] Closed Consult, Test & Treat 05/02/2022 08/12/2022 44 44 Encounter Details Date Type Department Care Team (Late st Contact Info) Description 05/02/2022 3:00 PM EDT Ancillary Appointment [place] [phone] Yariel Ernandez MD [address] [place] [address] DR RADIATION ONCOLOGY [place], [place] [id number] Social History Tobacco Use Types Packs/Day Years [...] Sign Reading Time Taken Comments Blood Pressure 126/66 05/02/2022 3:31 PM EDT Pulse 77 05/02/2022 3:31 PM EDT Temperature 36.5 ??C (97.7 ??F) 05/02/2022 3:31 PM ED T Respiratory Rate - - Oxygen Saturation 98% 05/02/2022 3:31 PM EDT Inhaled Oxygen Concentration - - Weight - - Height - - Body Mass Index - - documented in this encounter Plan of Treatment Upcoming Encounters Date Type Department Care Team (Latest Contact Info) Description 08/05/2024 11:30 AM EST Office Visit Hematology/Oncolog y at [address] [phone] Deyvi Ibrahim MD [facility] HEMATOLOGY [place] [address] [phone] Berry APRN [facility] [place] [address] 08/05/2024 12:00 PM EST Infusion Hematology Oncology at [address] [phone] 08/27/2024 10:00 AM EST Hospital Encounter [place] [phone] Gulshan Elder MD [facility] [place] [address] 08/27/2024 10:00 AM EST Anesthesia [place] [phone] Swati Gonzalez MD [facility] [place] [address] 08/27/2024 10:00 AM EST - 08/27/2024 11:00 AM EST [place] [phone] Gulshan Elder MD [facility] [place] [address] EGD, UPPER GI ENDOSCOPY (WRVU 2.09) Scheduled [...] filedocumented in this encounter Care Teams Instructor Wastewater Treatment Plant Relationship Specialty Start Date End Date Yoni Ramírez MD [address] [place] [id number] PCP - General 07/05/10 documented as of this encounter
--- OUTSIDE RECORDS SUMMARY | 2024-07-31 18:43 | XMS_ITS | Encounter Summary ---
[place] [address] Care Team Providers Care Cigar Maker Name Role Phone Yoni Ramírez MD Primary Care Provider [phone] Reason for Referral * Diagnostic Test (Routine) - Closed Specialty Diagnoses / Procedures Referred By Jeffersonac t Referred To Contact Radiology Diagnoses Malignant neoplasm of prostate Procedures MRI Pelvis wo (Prostate) Yariel Ernandez MD [address] [place] [address] [place] [address] [place] [address] Referral ID Status Reason Start Date Expiration Date V isits Requested Visits Authorized [id number] Closed Specialty Service Requested 04/14/2022 10/13/2023 1 1 Reason for Visit * Diagnostic Test (Routine) - Closed Specialty Diagnoses / Procedures Referred By Contac t Referred To Contact Radiology Diagnoses Malignant neoplasm of prostate Procedures MRI Pelvis wo (Prostate) Yariel Ernandez MD [address] [place] [address] [place] [address] [place] [address] Referral ID Status Reason Start Date Expiration Date V isits Requested Visits Authorized [id number] Closed Specialty Service Requested 04/14/2022 10/13/2023 1 1 Encounter Details Date Type Department Care Team (Latest Contact Info) Description 05/02/2022 6:08 PM EDT - 05/02/2022 11:59 PM EDT Hospital Encounter MRI [facility] [place] [address] Yariel Ernandez MD [address] [place] [address] [place] [address] Malignant neoplasm of prostate Discharge Disposition: Home Social History Tobacco Use Types Packs/Day Years [...] on file documented as of this encounter Medications at Time of Discharge Medication Sig Dispensed Refills Start Date End Date HYDROmorphone (Dilaudid) 4 mg Tablet Take 4 mg by mouth 4 times daily. aspirin EC 81 mg Tablet, Delayed Release (E.C.) Take 1 tablet by mouth every evening. 30 tablet 3 10/27/2021 tamsulosin (Flomax) 0.4 mg Capsule 0.4 mg nightly. Take 2 capsules qhs 09/20/2021 prochlorperazine (Compazine) [address] 25 mg rectally every 12 hours as needed. 09/10/2021 potassium chloride (K-Tab) 20 mEq Tablet Sustained Release daily as needed. naloxone (Narcan) 4 mg/actuation [place], Non-Aerosol Narcan 4 mg/actuation nasal spray Take 1 spray as needed by nasal route. 04/07/2020 atorvastatin (Lipitor) 20 mg Tablet TAKE ONE TABLET BY MOUTH EVERY EVENING 08/24/2021 acetaminophen (TYLENOL) 500 mg Tablet Take 2 tablets by mouth every 6 hours as needed for Pain. 09/05/2017 ondansetron (ZOFRAN-ODT) 4 mg Tablet, Rapid Dissolve Take 4 mg by mouth every 8 hours as needed for Nausea. clonazePAM (KlonoPIN) 1 mg Tablet TAKE 1 TABLET BY MOUTH EVERY NIGHT AND ONE-HALF TABLET EVERY MORNING 12/16/2021 06/12/2023 dexAMETHasone (Decadron) 2 mg TabletIndications:Pros blakely cancer Starting the day of your procedure: Take 2 mg twice a day for 3 days, then 2 mg once a day for 3 days then stop. 9 tablet 04/24/2022 05/18/2022 levoFLOXacin (Levaquin) 500 mg TabletIndications:Pros blakely cancer Take 1 hour prior the morning of procedure. 1 tablet 04/24/2022 05/18/2022 LORazepam (Ativan) 1 mg TabletIndications:Anxi ety Take 1mg (1 tablet) one hour prior to procedure and bring second dose with you to procedure. 2 tablet 04/24/2022 05/18/2022 vortioxetine (Trintellix) 10 mg Tablet Take 10 mg by mouth daily. 06/12/2023 abiraterone (Zytiga) 250 mg Tablet Take 4 tablets by mouth daily. Take on empty stomach 1 hour before meals or 2 hours after. Please call clinic before starting medication. 120 tablet 11 01/31/2022 06/07/2022 predniSONE (Deltasone) 5 mg Tablet Take 1 tablet by mouth daily. 30 tablet 11 01/31/2022 06/07/2022 pantoprazole EC (Protonix) 40 mg Tablet, Delayed Release (E.C.) daily as needed. 04/07/2020 Calcium Citrate-Vitamin D3 315-250 mg-unit Tablet Take 2 tablets by mouth 3 times daily. 09/05/2017 03/11/2024 documented as of this encounter Plan of Treatment Upcoming Encounters Date Type Department Care Team (Latest Contact Info) Description 08/05/2024 11:30 AM EST Office Visit Hematology/Oncolog y at [address] [phone] Deyvi Ibrahim MD [facility] DR [place] [address] Isabel Berry APRN [facility] [place] [address] 08/05/2024 12:00 PM EST Infusion Hematology Oncology at [address] [phone] 08/27/2024 10:00 AM EST Hospital En[place] [phone] Gulshan Elder MD [facility] [place] [address] 08/27/2024 10:00 AM EST Anesthesia [place] [phone] Swati Gonzalez MD [facility] [place] [address] 08/27/2024 10:00 AM EST - 08/27/2024 11:00 AM EST [place] [phone] Gulshan Elder MD [facility] [place] [address] EGD, UPPER GI ENDOSCOPY (WRVU 2.09) Scheduled [...] Procedure Name Priority Date/Time Associated Diagnosis Comments MRI PELVIS WO (PROSTATE) Routine 05/02/2022 7:20 PM EDT Malignant neoplasm of prostate documented in this encounter Results * MRI Pelvis wo [...] who have questions please contact the health career placement specialist that requested your imaging first. ? Narrative [...] patients who have questions please contactthe health career placement specialist that requested your imaging first. Yariel Ernandez MD IM MRI ORDERABLES documented in [...] colon documented in this encounter Care Teams Cigar Maker Relationship Specialty Start Date End Date Yoni Ramírez MD [address] [address] PCP - General 07/05/10 documented as of this encounter
--- OUTSIDE RECORDS SUMMARY | 2024-07-31 18:43 | XMS_ITS | Encounter Summary ---
Author Organization [facility] [place] [address] Care Team Providers Care Certified Professional Midwife Name Role Phone Yoni Ramírez MD Primary Care Provider Encounter Details Date Type Department Care Team (Latest Contact Info) Description 12/19/2021 11:15 AM EDT Laboratory Appointment Lab [address] [place] [phone] Malignant neoplasm of prostate Social History Tobacco [...] AM EST Office Visit Hematology/Oncolog y at [address] [phone] Deyvi Ibrahim MD [facility] DR [place] [address] Isabel Berry APRN [facility] [place] [address] 08/05/2024 12:00 PM EST Infusion Hematology Oncology at [address] [phone] 08/27/2024 10:00 AM EST Hospital En[place] [phone] Gulshan Elder MD [facility] [place] [address] 08/27/2024 10:00 AM EST Anesthesia [place] [phone] Swati Gonzalez MD [facility] [place] [address] 08/27/2024 10:00 AM EST - 08/27/2024 11:00 AM EST [place] [address] Gulshan Elder MD [facility] [place] [address] EGD, UPPER GI ENDOSCOPY (WRVU 2.09) Scheduled Procedures Name Priority Associated Diagnoses Date/Ti oh EGD, UPPER GI ENDOSCOPY (WRVU 2.09) Abnormal [...] Procedure Name Priority Date/Time Associated Diagnosis Comments HEMOGRAM Routine 12/19/2021 11:12 AM EDT Malignant neoplasm of prostate DIFFERENTIAL, AUTOMATED Routine 12/19/2021 11:12 AM EDT Malignant neoplasm of prostate HC CBC,PLT & AUTO DIFF Routine 11:12 AM EDT Malignant neoplasm of prostate HC TESTOSTERONE, SERUM Routine 11:12 AM EDT Malignant neoplasm of prostate HC PROSTATE SPECIFIC ANTIGEN Routine 12/19/2021 11:12 AM EDT Malignant neoplasm of prostate COMPREHENSIVE METABOLIC PANEL Routine 12/19/2021 11:12 AM EDT Malignant neoplasm of prostate documented in this encounter Results * (ABNORMAL) Differential, Automated (12/19/2021 11:12 AM EDT) Neutrophil % 47.3 % [facility] Neutrophil Absolute 4.34 1.70 - 6.10 x10(3)/mc L [facility] Lymph % 38.4 % [facility] Lymphocytes Abs 3.5(H) 0.9 - 3.2 x10(3)/[facility] Monocyte % 12.0 % [facility] Monocyte Abs 1.1(H) 0.3 - 0.9 x10(3)/[facility] Eos % 1.9 % [facility] Eosinophils Abs 0.2 0.0 - 0.4 x10(3)/[facility] Basophil % 0.2 % [facility] Baso Absolute 0.0 0.0 - 0.1 x10(3)/[facility] Immature Gran % 0.20 % [facility] Comment: Immature granulocytes(IG's)percentage and absolute count will include metamyelocytes, myelocytes, and promyelocytes. Blood smears from CBCs yielding IG's will be scanned manually for concordance. If this scan disagrees with the automated IG or if promyelocytes are noted, a manual differential will be performed. Immature Gran Absolute 0.02 0.00 - 0.04 x10(3)/[facility] Blood 12/19/2021 11:1 2 AM EDT 12/19/2021 11:34 AM EDT Narrative Resulting Agency Comment Spec In Lab Deyvi Ibrahim MD HEMATOLOGY ORDERABLE S Performing Organization Address City/State/[facility] Co de Phone Number [facility] [place] [address] * (ABNORMAL) Hemogram (12/19/2021 11:12 AM EDT) White Blood Cell 9.2 4.0 - 9.5 x10(3)/[facility] Red Blood Cell 4.42(L) 4.58 - 5.54 x10(6)/[facility] Hemoglobin 14.4 13.7 - 16.5 g/dL [facility] Hematocrit 42.6 40.5 - 48.5 % [facility] Mean Cell Volume 96.4(H) 82.9 - 93.1 fL [facility] Mean Cell Hemoglobin 32.6(H) 27.5 - 32.1 pg [facility] Mean Cell Hemoglobin Concentration 33.8 32.0 - 35.7 g/dL [facility] Platelet 310 145 - 357 x10(3)/mc L [facility] RDW Standard Deviation 47.7(H) 36.0 - 45.0 fL [facility] RDW coefficient of variation 13.2 11.4 - 13.8 % [facility] Mean Platelet Volume 9.6 7.6 - 12.9 fL [facility] NRBC% auto 0.0 % [facility] NRBC Absolute 0.000 0.000 - 0.000 x10(3)/mc L [facility] Blood 12/19/2021 11:1 2 AM EDT 12/19/2021 11:34 AM EDT Narrative Resulting Agency Comment Spec In Lab Deyvi Ibrahim MD HEMATOLOGY ORDERABLE S Performing Organization Address City/[facility]/ZIP Co de Phone Number [facility] [place] [address] * PSA (Ultrasensitive) (12/19/2021 11:12 AM EDT) Prostate Specific Antigen (Ultrasensitive ) 3.02 0.00 - 4.00 ng/mL [facility] Comment: PLEASE NOTE: The above reference interval is intended for healthy males with an intact prostate. Values within this reference interval may indicate recurrence in men who have undergone radical prostatectomy. Blood 12/19/2021 11:1 2 AM EDT 12/19/2021 11:34 AM EDT Narrative Resulting Agency Comment Spec In Lab Deyvi Ibrahim MD CHEMISTRY ORDERABLES Performing Organization Address City/[facility]/ZIP Co de Phone Number [facility] [place] [address] * (ABNORMAL) Comprehensive metabolic panel (non-fasting) (12/19/2021 11:12 AM EDT) Glucose 136 65 - 199 mg/dL [facility] Comment:Diabetes: >=200 mg/d L plus symptoms Blood Urea Nitrogen 31(H) 10 - 20 mg/dL [facility] Creatinine 1.26 0.80 - 1.50 mg/dL [facility] Sodium 137 135 - 145 mmol/L [facility] Potassium 4.3 3.5 - 5.0 mmol/L [facility] Comment: Please note: ??Patients with WBC >100,000 may have falsely elevated Potassium levels. ??For accurate Potassium quantification in these patients send serum separator tube (gold top) for subsequent determinations. ??Contact the Clinical Chemistry Laboratory if there are any questions. Chloride 97(L) 98 - 107 mmol/L [facility] Carbon Dioxide 24 22 - 31 mmol/L [facility] Anion Gap 16(H) 5 - 15 mmol/L [facility] Calcium 9.1 8.5 - 10.5 mg/dL [facility] Protein, Total 7.2 6.1 - 8.0 g/dL [facility] Albumin 4.8 3.2 - 5.2 g/dL [facility] Aspartate Aminotransferase 14 0 - 39 unit/L [facility] Alanine Aminotransferase 11 0 - 55 unit/L [facility] Alkaline Phosphatase 84 40 - 130 unit/L [facility] Bilirubin, Total 1.0 0.2 - 1.3 mg/dL [facility] Est Glomerular Filtration Rate 62 >=60 mL/min/1. 73 m?? [facility] Comment: This patient? s [...] In Lab Deyvi Ibrahim MD CHEMISTRY ORDERABLES [facility] [place] [address] * Testosterone, total (12/19/2021 11:12 AM EDT) Testosterone 4.31 1.93 - 7.40 ng/mL [facility] Comment: Pediatric Reference Ranges: ? Males (7 - 18 years) ?Females (8 - 18 years) Marcin Stage ?ng/ml ? ng/ml ? 1 ? <0.03 ? <0.03 to 0.06 ? 2 ? <0.03 to 4.32 ? <0.03 to 0.10 ? 3 ?0.65 to 7.78 ? <0.03 to 0.24 ? 4 ?1.80 to 7.63 ? <0.03 to 0.27 ? 5 ?1.88 to 8.82 ?0.05 to 0.38 Stated reference ranges derived from review of Rosangela Mary Testosterone II 04/2016, v6.0 Blood 12/19/2021 11:1 2 AM EDT 12/19/2021 11:34 AM EDT Narrative Resulting Agency Comment Spec In Lab Deyvi Ibrahim MD CHEMISTRY ORDERABLES Performing Organization Address City/State/[facility] Co de Phone Number [facility] [place] [address] documented in this encounter Visit Diagnoses Diagnosis [...] colon documented in this encounter Care Teams Certified Professional Midwife Relationship Specialty Start Date End Date Yoni Ramírez MD [address] [place] [address] PCP - General 07/05/10 documented as of this encounter
--- OUTSIDE RECORDS SUMMARY | 2024-07-31 18:43 | XMS_ITS | Encounter Summary ---
Author Organization [facility]ly [facility] [place] [address] Care Team Providers Care Cardiac Care Unit Nurse Name Role Phone Yoni Ramírez MD Primary Care Provider Encounter Details Date Type Department Care Team (Late st Contact Info) Description 01/31/2022 Telephone Hematology/Oncology at [address] [phone] Earlene Casas RN Social History [...] slept in a long-term (including now)? No 10/26/2021 Sex and Gender Information Value Date Recorded Sex Assigned at Not on file Gender Identity Not on file Sexual Orientation Not on file documented as of this encounter Miscellaneous Notes * Telephone Encounter - Earlene Casas RN - 01/31/2022 2:22 PM EDT Oral Chemotherapy Check Note 01/31/2022 Jeff Arreguin, 1965 Prescriptions for oral chemotherapy were reviewed as follows: Oral Chemotherapy Order abiraterone: Order details: ?? Dose: 1000 mg ( 250 mg tab) ?? Route: oral ?? Quantity to be dispensed #: 120 tabs ?? Number of refills: 11 ?? Instructions: Take on empty stomach one hour before meals and two hours after. ?? Cycle number and length: ongoing ?? Start date: After he [facility] when receives pills Plan of care compared to information in the medical record, including note from provider on 01/31/22(date). The prescription was foundto be complete and accurate. It was printed, reviewed and signed by provider and manually faxed to [facility] [phone]. Oral Chemotherapy Assessment Note 01/31/2022 Jeff Arreguin, 1965 Assessment of Jeff Arreguin???s living situation reveals that he lives with Cheri. The patient will be responsible for his medication administration. Medications reviewed, including prescription and non-prescription medications. Jeff Arreguin if high copay will need assist. The patient reports that he/she: ?? is able to swallow pills. ?? is able to open medication bottles/packages without problems. ?? is not experiencing any symptoms that will affect the ability to keep down medications (no nausea, vomiting, mucositis, or difficulty swallowing). ?? is willing to fill with [facility] What pharmacy would the patient like to have the medication dispensed from? [facility] The patient verifies: ?? ability to read and understand the drug label instructions. ?? understanding of treatment plan with oral chemotherapy. ?? understanding that medication will be dispensed from [facility] phone . This medication will be delivered to the home (instructed to call nurse if he/she does not hear from the pharmacy regarding delivery). ?? that he will need labs drawn on with next provider visit. documented in this encounter Plan of Treatment Upcoming Encounters Date Type Department Care Team (Latest Contact Info) Description 08/05/2024 11:30 AM EST Office Visit Hematology/Oncolog y at [address] [phone] Deyvi Ibrahim MD [facility] DR [place] [address] Isabel Berry APRN [facility] [place] [address] 08/05/2024 12:00 PM EST Infusion Hematology Oncology at [address] [phone] 08/27/2024 10:00 AM EST Hospital En[place] [address] Gulshan Elder MD [facility] [place] [address] 08/27/2024 10:00 AM EST Anesthesia [place] [phone] Swati Gonzalez MD [facility] [place] [address] 08/27/2024 10:00 AM EST - 08/27/2024 11:00 AM EST [place] [address] Gulshan Elder MD [facility] [place] [address] EGD, UPPER GI ENDOSCOPY (WRVU 2.09) Scheduled [...] on filedocumented in this encounter Care Teams Cardiac Care Unit Nurse Relationship Specialty Start Date End Date Yoni Ramírez MD [address] [place] [address] PCP - General 07/05/10 documented as of this encounter
--- OUTSIDE RECORDS SUMMARY | 2024-07-31 18:43 | XMS_ITS | Encounter Summary ---
Author Organization [facility] Address [facility] [place] [address] Care Team Providers Care Household Coordinator Name Role Phone Yoni Ramírez MD Primary Care Provider Encounter Details Date Type Department Care Team (Late st Contact Info) Description 02/28/2022 10:30 AM EDT Office Visit Hematology/Oncology at [address] [phone] Deyvi Ibrahim MD [facility] DR HEMATOLOGY [place] [address] Jojo Williamson APRN Prostate cancer metastatic to intrapelvic lymph node; [...] in a care home (including now)? No 02/18/2022 Sex and Gender Information Value Date Recorded Sex Assigned at Not on file Gender Identity Not on file Sexual Orientation Not on file documented as of this encounter Last Filed Vital Signs Vital Sign Reading Time Taken Comments Blood Pressure 150/70 02/28/2022 10:39 AM EDT Pulse 45 02/28/2022 10:39 AM EDT Temperature 36.4 ??C (97.5 ??F) 02/28/2022 10:39 AM E DT Respiratory Rate 16 02/28/2022 10:39 AM EDT Oxygen Saturation 98% 02/28/2022 10:39 AM EDT Inhaled Oxygen Concentration - - Weight 93.9 kg (207 lb) 02/28/2022 10:39 AM EDT Height 175.3 cm (5' 9.02) 02/28/2022 10:39 AM E DT Body Mass Index 30.55 02/28/2022 10:39 AM EDT documented in this encounter Progress Notes * Deyvi Ibrahim MD - 02/28/2022 10:30 AM EDT Images from the original note were not included. 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 Enamordao for consultation on new diagnosis of prostate [...] clinic for follow-up appointment on prostate cancer abiraterone toxicity check. He started abiraterone with prednisone on February 23. Takes as prescribed. Tolerates them well. He complains on mild fatigue. He denies any new pain. He has appointment with our radiation oncologist Dr. Ernandez. Going to reschedule PMH: No interval changes since last visit [...] Hives ??? Lexapro [Escitalopram] Other (See Comments) [place] odd Medications: Your Medications Accurate as of February 28, 2022 10:59 AM. If you have any questions, ask your [...] 100 mg Refills: 0 naloxone 4 mg/actuation [place] Commonly known as: Narcan Narcan 4 mg/actuation [...] axillary nodes normal Neurologic: Normal Vitals BP 150/70 (Patient Position: Sitting) Pulse (!) 45 Temp 36.4 ??C (97.5 ??F) (Temporal) Resp 16 Ht 175.3 cm (5' 9.02) Wt 93.9 kg (207 lb) SpO2 98% BMI 30.55 kg/m?? Pathology: 170 gene panel:TMPRSS2, ERG TMPRSS2- [...] staining ?PMS2 ?Positive, intact nuclear staining Interpretation: 02/28/2022 BUN 20, creatinine 1.2, calcium 8.9, TB 0.9, AST 15, ALT 25, alkaline phosphatase 75, albumin 4.1, total protein 7.3, WBC 9.02, hemoglobin 13, platelet count 355 Labs: 01/31/2022 BUN 29, creatinine 1.2, TB 0.8, AST 19, ALT 26, alkaline phosphatase 83, total protein 7.6, albumin 4.5, WBC 10.2, hemoglobin 13.5, platelet count 265. PSA testosteron 01/31/22 0.95 17 12/19/21 3.02 11/02/21 1.79 [...] and Plan: Diagnosis: Prostatic adenocarcinoma, grade 4, [place] 4+4, metastatic to regional lymph nodes Treatment: [...] He would like to be treated at [facility] close to his home. 12/27/21 [...] abirateroneand prednisone. Informed verbal consent was obtained. #Pain management: Follows with primary care provider. #Financial hardship: Mr. Arreguin would like to discuss with psych social worker. Plan: 1. Lupron 22.5 mg every 3 months 2. Continue abiraterone 1000 mg and prednisone 5 mg a day 3. F/u with Dr. Sparks 4. Next visit in 4 weeks with CBC, [...] EST Office Visit Hematology/Oncolog y at [address] [phone] Deyvi Ibrahim MD [facility] DR HEMATOLOGY [place] [address] Isabel Berry APRN [facility] [place] [address] 08/05/2024 12:00 PM EST Infusion Hematology Oncology at [address] [phone] 08/27/2024 10:00 AM EST Hospital En[place] [address] Gulshan Elder MD [facility] [place] [address] 08/27/2024 10:00 AM EST Anesthesia [place] [phone] Swati Gonzalez MD [facility] DR [place] [address] 08/27/2024 10:00 AM EST - 08/27/2024 11:00 AM EST Surgery Gastroenterology at [place] [phone] Gulshan Elder MD [facility] [place] [address] EGD, UPPER GI ENDOSCOPY (WRVU 2.09) Scheduled [...] colon documented in this encounter Care Teams Household Coordinator Relationship Specialty Start Date End Date Yoni Ramírez MD [address] [place] [phone] PCP - General 07/05/10 documented as of this encounter
--- OUTSIDE RECORDS SUMMARY | 2024-07-31 18:43 | XMS_ITS | Encounter Summary ---
Author Organization [facility] Address [facility] [place] [address] Care Team Providers Care Fresco Artist Name Role Phone Yoni Ramírez MD Primary Care Provider [phone] Encounter Details Date Type Department Care Team (Late st Contact Info) Description 04/19/2022 4:00 PM EDT Telephone Radiation Oncology at [address] [phone] Rad NurseSt Curiel Social History Tobacco Use Types Packs/Day Years [...] EST Office Visit Hematology/Oncolog y at [address] [phone] Deyvi Ibrahim MD [facility] [place] [address] Isabel Berry APRN [facility] [place] [address] 08/05/2024 12:00 PM EST Infusion Hematology Oncology at [address] [phone] 08/27/2024 10:00 AM EST Hospital Encounter [place] [address] Gulshan Elder MD [facility] [place] [address] 08/27/2024 10:00 AM EST Anesthesia Event [place] [phone] Swati Gonzalez MD [facility] [place] [address] 08/27/2024 10:00 AM EST - 08/27/2024 11:00 AM EST Surgery [place] [address] Gulshan Elder MD [facility] [place] [address] EGD, UPPER GI ENDOSCOPY (WRVU 2.09) Scheduled [...] on filedocumented in this encounter Care Teams Fresco Artist Relationship Specialty Start Date End Date Yoni Ramírez MD [address] [place] [phone] PCP - General 07/05/10 documented as of this encounter
--- OUTSIDE RECORDS SUMMARY | 2024-07-31 18:44 | XMS_ITS | Encounter Summary ---
Author Organization [facility] [place] [address] Care Team Providers Care Track Helper Name Role Phone Yoni Ramírez MD Primary Care Provider [phone] Reason for Visit * Reason Onset Date Comments Other 11/07/2021 Community resour kathe Encounter Details Date Type Department Care Team (Late st Contact Info) Description 11/07/2021 Telephone Hematology/Oncology at [address] [phone] Makenna Sorto, [facility] OFFICE OF CARE MANAGEMENT Other (Community resources) Social History Tobacco Use Types Packs/Day Years [...] slept in a correction (including now)? No 10/26/2021 Sex and Gender Information Value Date Recorded Sex Assigned at Not on file Gender Identity Not on file Sexual Orientation Not on file documented as of this encounter Miscellaneous Notes * Telephone Encounter - Makenna Sorto MSW - 11/07/2021 8:17 AM EDT Received notification that the [employer] will mail pt a $50 gas card per his request. Received notification from the [facility] that pt can apply for funds for financial assistance after diagnosis and prior to start of treatments. TC pt to inform him of this. No answer and left request for a call back. Add: Call back from . Informed her that the [employer] will be sending pt a $50 gas cards. Pt/ gave permission for TRAVELERS[employer] WORKER to complete an application to the [facility] Vt requesting $225 in gas funds. TRAV[employer]' A[employer] WORKER will complete the application today. Consulted with DUNIA Giron re pt's situation. documented in this encounter Plan of Treatment Upcoming Encounters Date Type Department Care Team (Latest Contact Info) Description 08/05/2024 11:30 AM EST Office Visit Hematology/Oncolog y at [address] [phone] Deyvi Ibrahim MD [facility] DR HEMATOLOGY [place] [address] Isabel Berry APRN [facility] [place] [address] 08/05/2024 12:00 PM EST Infusion Hematology Oncology at [address] [phone] 08/27/2024 10:00 AM EST Hospital Encounter [place] [phone] Gulshan Elder MD [facility] [place] [address] 08/27/2024 10:00 AM EST Anesthesia [place] [phone] Swati Gonzalez MD [facility] DR [place] [address] 08/27/2024 10:00 AM EST - 08/27/2024 11:00 AM EST [place] [phone] Gulshan Elder MD [facility] [place] [address] EGD, UPPER GI ENDOSCOPY (WRVU 2.09) Scheduled [...] on filedocumented in this encounter Care Teams Track Helper Relationship Specialty Start Date End Date Yoni Ramírez MD [address] [place] [phone] PCP - General 07/05/10 documented as of this encounter
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
--- OUTSIDE RECORDS SUMMARY | 2024-07-31 18:44 | XMS_ITS | Encounter Summary ---
Author Organization [facility] [place] [address] Care Team Providers Care Auto Glass Worker Name Role Phone Yoni Ramírez MD Primary Care Provider [phone] Encounter Details Date Type Department Care Team (Late st Contact Info) Description 09/29/2021 Telephone Main OR at [address] [phone] Lindsey Corrales Social History Tobacco Use Types Packs/Day Years Used Date Smoking Tobacco: Former Cigarettes 1 25 0 08/13/1986 - 08/13/2011 Alcohol Use Standard Drinks/Week Comments Yes 22 (1 standard drink = 0.6 oz pu re alcohol) Sex and Gender Information Value Date Recorded Sex Assigned at Not on file Gender Identity Not on file Sexual Orientation Not on file documented as of this encounter Plan of Treatment Upcoming Encounters Date Type Department Care Team (Latest Contact Info) Description 08/05/2024 11:30 AM EST Office Visit Hematology/Oncolog y at [address] [phone] Deyvi Ibrahim MD [facility] DR HEMAT[place]Y [place] [address] Isabel Berry APRN [facility] [place] [address] 08/05/2024 12:00 PM EST Infusion Hematology Oncology at [address] [phone] 08/27/2024 10:00 AM EST Hospital En[place] [phone] Gulshan Elder MD [facility] [place] [address] 08/27/2024 10:00 AM EST Anesthesia Event Gastroenterology at [place] [phone] Swati Gonzalez MD [facility] [place] [address] 08/27/2024 10:00 AM EST - 08/27/2024 11:00 AM EST [place] [phone] Gulshan Elder MD [facility] [place] [address] EGD, UPPER GI ENDOSCOPY (WRVU 2.09) Scheduled [...] on filedocumented in this encounter Care Teams Auto Glass Worker Relationship Specialty Start Date End Date Yoni Ramírez MD [address] [place] [phone] PCP - General 07/05/10 documented as of this encounter
--- OUTSIDE RECORDS SUMMARY | 2024-07-31 18:44 | XMS_ITS | Encounter Summary ---
[place] [address] Care Team Providers Care Advertising Manager Name Role Phone Yoni Ramírez MD Primary Care Provider [phone] Encounter Details Date Type Department Care Team (Late st Contact Info) Description 10/23/2021 [place] [phone] Cintia Fish MD [facility] [place] [address] Social History Tobacco Use Types Packs/Day Years [...] encounter Miscellaneous Notes * Telephone Encounter - Cintia Fish MD - 10/23/2021 10:44 AM EDT Brief Telephone Note The patient's is calling today due to pain. They had just gotten off the phone with Dr. Enamorado.Encouraged to call or go to ED if continued issues. Cintia Fish MD Urology PGY-2 10/23/2021 documented in this encounter Plan of Treatment Upcoming Encounters Date Type Department Care Team (Latest Contact Info) Description 08/05/2024 11:30 AM EST Office Visit Hematology/Oncolog y at [address] [phone] Deyvi Ibrahim MD [facility] [place] [address] Isabel Berry APRN [facility] [place] [address] 08/05/2024 12:00 PM EST Infusion Hematology Oncology at [address] [phone] 08/27/2024 10:00 AM EST Hospital Encounter [place] [phone] Gulshan Elder MD [facility] [place] [address] 08/27/2024 10:00 AM EST Anesthesia Event [place] [phone] Swati Gonzalez MD [facility] [place] [address] 08/27/2024 10:00 AM EST - 08/27/2024 11:00 AM EST Surgery [place] [phone] Gulshan Elder MD [facility] [place] [address] EGD, UPPER GI ENDOSCOPY (WRVU 2.09) Scheduled [...] on filedocumented in this encounter Care Teams Advertising Manager Relationship Specialty Start Date End Date Yoni Ramírez MD [address] [place] [id number] PCP - General 07/05/10 documented as of this encounter
--- OUTSIDE RECORDS SUMMARY | 2024-07-31 18:44 | XMS_ITS | Encounter Summary ---
Author Organization [facility] [place] [address] Care Team Providers Care Heel Seat Flap Stapler Name Role Phone Yoni Ramírez MD Primary Care Provider [phone] Reason for Referral * Consultation (Urgent) - Closed Specialty Diagnoses / Procedures Referred By Guillermo beckham Referred To Contact Hematology and Oncology Diagnoses Malignant neoplasm of prostate Ino Enamorado MD [facility] [place] [address] [facility] [[email or web address]] Hem Onc Office [address] [place] [phone] Referral ID Status Reason Start Date Expiration Date V isits Requested Visits Authorized [id number] Closed Consult, Test & Treat 10/25/2021 10/25/2022 1 1 Encounter Details Date Type Department Care Team (Late st Contact Info) Description 10/25/2021 [place] [phone] [facility] [place] [address] Social History Tobacco Use Types Packs/Day Years [...] slept in a usp (including now)? No 10/26/2021 Sex and Gender Information Value Date Recorded Sex Assigned at Not on file Gender Identity Not on file Sexual Orientation Not on file documented as of this encounter Miscellaneous Notes * Telephone Encounter - Ino Enamorado MD - 10/25/2021 4:11 PM EDT Called patient and spoke to to inform them of the Jj 4+4 prostate cancer that was seen inthe TURP chips from last week. Interval hx: he passed void trial yesterday with a PVR of 61mL. He is scheduled for a prostate MRI this week. I will also order a bone scan for staging. I have placed an urgent referral to medical oncology. He will have a f/u with me in 4-6 weeks to check in on voiding symptoms. Ino Enamorado MD 10/25/2021 4:14 PM documented in this encounter Plan of Treatment Upcoming Encounters Date Type Department Care Team (Latest Contact Info) Description 08/05/2024 11:30 AM EST Office Visit Hematology/Oncolog y at [address] [phone] [facility] [place] [address] [facility] [place] [address] 08/05/2024 12:00 PM EST Infusion Hematology Oncology at [address] [phone] 08/27/2024 10:00 AM EST Hospital Encounter [place] [phone] [facility] [place] [address] 08/27/2024 10:00 AM EST Anesthesia Event [place] [phone] [facility] [place] [address] 08/27/2024 10:00 AM EST - 08/27/2024 11:00 AM EST Surgery [place] [phone] [facility] [address] EGD, UPPER GI ENDOSCOPY (WRVU 2.09) Scheduled [...] Priority Associated Diagnoses Order Schedule Referral to Hematology and Oncology Outpatient Referral Routine Malignant neoplasm of prostate Ordered: 10/25/2021 documented as of this encounter Visit Diagnoses [...] colon documented in this encounter Care Teams Heel Seat Flap Stapler Relationship Specialty Start Date End Date Yoni Ramírez MD [address] [place] [id number] PCP - General 07/05/10 documented as of this encounter
--- OUTSIDE RECORDS SUMMARY | 2024-07-31 18:44 | XMS_ITS | Encounter Summary ---
Author Organization [facility] [place] [address] Care Team Providers Care Vacuum Tank Tender Name Role Phone Yoni Ramírez MD Primary Care Provider [phone] Encounter Details Date Type Department Care Team (Late st Contact Info) Description 11/30/2021 Telephone Hematology/Oncology at [address] [phone] Saima Fuentes Social History Tobacco [...] * Telephone Encounter - Saima Rivas - 11/30/2021 3:07 PM EDT After several attempts of contacting Jeff, his Lianna gave us a call to let us know Jeff had been sick the past few weeks and ended up at [facility] ED on Sunday for nausea and vomiting. He is back home and resting. Due to the circumstances, he missed his CT/Bone Scan scheduled at [facility] on 11/25. Lianna plans to call [facility] today to get him rescheduled. We will plan to touch banner to reschedule his FUV and INFR once we know the dates for his imaging. I also asked Lianna to confirm the best number to contact regarding scheduling and she let us know that the primary number listed was an outdated number. The appropriate number to contact is now in the chart. documented in this encounter Plan of Treatment Upcoming Encounters Date Type Department Care Team (Latest Contact Info) Description 08/05/2024 11:30 AM EST Office Visit Hematology/Oncolog y at [address] [phone] Deyvi Ibrahim MD [facility] HEMATOLOGY [place] [address] Isabel Berry APRN [facility] [place] [address] 08/05/2024 12:00 PM EST Infusion Hematology Oncology at [address] [phone] 08/27/2024 10:00 AM EST Hospital Encounter [place] [phone] Gulshan Elder MD [facility] [place] [address] 08/27/2024 10:00 AM EST Anesthesia Event [place] [phone] Swati Gonzalez MD [facility] [place] [address] 08/27/2024 10:00 AM EST - 08/27/2024 11:00 AM EST Surgery [place] [phone] Gulshan Elder MD [facility] [place] [address] EGD, UPPER GI ENDOSCOPY (WRVU 2.09) Scheduled [...] on filedocumented in this encounter Care Teams Vacuum Tank Tender Relationship Specialty Start Date End Date Yoni Ramírez MD [address] [place] [phone] PCP - General 07/05/10 documented as of this encounter
--- OUTSIDE RECORDS SUMMARY | 2024-07-31 18:44 | XMS_ITS | Encounter Summary ---
Author Organization [facility] Address [facility] [place] [address] Care Team Providers Care Security Officer Supervisor Name Role Phone Yoni Ramírez MD Primary Care Provider [phone] Reason for Visit * Auth/Cert Specialty Diagnoses / Procedures Referred By Guillermo beckham Referred To Contact Diagnoses Benign prostatic hyperplasia, unspecified whether lower urinary tract symptoms present Retention of urine, unspecified BPH, irregular prostate growth Procedures PRO LASER VAPORIZATION SURGERY PROSTATE, COMPLETE CYSTO, LASER TURP (WRVU 12.15) MODIFIER,GREENLIGHT LASER Referral ID Status Reason Start Date Expiration Date Visits Re quested Visits Authorized [id number] 1 1 Encounter Details Date Type Department Care Team (Late st Contact Info) Description 10/20/2021 8:30 AM EST - 10/20/2021 10:15 AM EST Surgery Main OR at [address] [phone] Ino Enamorado MD [facility] [place] [address] CYSTO, LASER TURP (WRVU 12.15) Social History Tobacco Use Types Packs/Day Years [...] Sign Reading Time Taken Comments Blood Pressure 177/101 10/20/2021 10:15 AM EST Pulse 83 10/20/2021 10:15 AM EST Temperature 36 ??C (96.8 ??F) 10/20/2021 10:15 AM EST Respiratory Rate 20 10/20/2021 10:15 AM EST Oxygen Saturation 97% 10/20/2021 10:15 AM EST Inhaled Oxygen Concentration - - Weight 96.8 kg (213 lb 6.4 oz) 10/20/2021 7:37 A M EST Height 177.8 cm (5' 10) 10/20/2021 7:37 AM EST Body Mass Index 30.62 10/20/2021 7:37 AM EST documented in this encounter Discharge Instructions * Patient Instructions* Howard Segundo MD - 10/20/2021 10:27 AM EST DISCHARGE INSTRUCTIONS CALL YOUR PHYSICIAN IF: You have a fever greater than 101 degrees F within one month of your surgery. You have diarrhea or vomiting for more than 24 hours, or stop having bowel movements or passing gas. You have worsening pain, not controlled with your pain medication. You are unable to empty your bladder and have pelvic/bladder pain. You have any other acute change in your health status. MEDICATIONS You may use acetaminophen (Tylenol) and ibuprofen for pain control. Do not take aspirin until your urine is completely clear of blood, and no sooner than 7 days. URINATION You have a Dowd catheter in place that you should remove on Sunday. If you are unable to void, please contact Dr. Altman's office for replacement of the catheter. You will likely have a small amount of blood in your urine for several days up to a week. This is normal and expected. However, if you are passing large amounts of blood clots or bright red blood, please contact our office. DRIVING RESTRICTIONS Do not operate a vehicle if you are too sore from surgery to enter or exit your vehicle comfortably, or if you are too sore to easily check your blind spot. No driving while using prescription pain medications. ACTIVITIES No heavy lifting. You may lift what is comfortable to lift with one arm. Nothing greater than 10 pounds (e.g., a full gallon jug) until re-evaluated by your physician. Discuss return to work or school with your physician. Take several slow, short walks each day for the first two weeks, and gradually increase your distance. Exercise will assist in your recovery. DIET Eat a well-balanced diet. Fresh fruits, vegetables and fiber-containing foods are recommended. Thiswill assist in wound healing. Please keep your stools soft, and avoid constipation. You may wish the take a stool softener or gentle laxative. CONTACT INFORMATION To contact your provider or change your appointment, please call the Urology clinic at during business hours For emergencies call during off-hours or go to your nearest emergency department. FOLLOW-UP APPOINTMENT Dr. Enamorado will call you with the results from today in the next 2 weeks. * Attachments The following attachments cannot be sent through Care Everywhere. * Indwelling Urinary Catheter Care: General Info ([place]an) * Dowd Catheter: Self-Removal: General Info ([place]) documented in this encounter Medications at Time of Discharge Medication Sig Dispensed Refills Start Date End Date aspirin EC 81 mg Tablet, Delayed Release (E.C.) Take 1 tablet by mouth every evening. 30 tablet 3 10/27/2021 tamsulosin (Flomax) 0.4 mg Capsule 0.4 mg nightly. Take 2 capsules qhs 09/20/2021 prochlorperazine (Compazine) [address] 25 mg rectally every 12 hours as needed. 09/10/2021 potassium chloride (K-Tab) 20 mEq Tablet Sustained Release daily as needed. naloxone (Narcan) 4 mg/actuation [place], Non-Aerosol Narcan 4 mg/actuation nasal spray Take [...] every 8 hours as needed for Nausea. oxyCODONE (Roxicodone) 5 mg Tablet Take 1 tablet by mouth every 4 hours as needed for Pain. 10 tablet 10/20/2021 12/27/2021 phenazopyridine (Pyridium) 100 mg Tablet Take 200 mg by mouth every evening. 01/31/2022 sertraline (ZOLOFT) 100 mg Tablet Take 100 mg by mouth every evening. 09/08/2021 04/14/2022 senna (Senokot) 8.6 mg Tablet 17.2 mg daily as needed. 04/07/2020 12/27/2021 pantoprazole EC (Protonix) 40 mg Tablet, Delayed Release (E.C.) daily as needed. 04/07/2020 03/11/2024 oxybutynin (Ditropan) 5 mg Tablet Take 5 mg by mouth every evening. 09/26/2021 01/31/2022 metoprolol succinate XL (Toprol-XL) 100 mg Tablet Sustained Release 24 hr Take 100 mg by mouth every evening. 09/08/2021 04/14/2022 finasteride (Proscar) 5 mg Tablet Take 5 mg by mouth every evening. 09/20/2021 12/27/2021 atenoloL (Tenormin) 50 mg Tablet Take 25 mg by mouth every evening. 04/14/2022 ibuprofen (ADVIL;MOTRIN) 600 mg Tablet Take 1 tablet by mouth every 6 hours as needed for Pain. 09/05/2017 12/27/2021 Calcium Citrate-Vitamin D3 315-250 mg-unit Tablet Take 2 tablets by mouth 3 times daily. 09/05/2017 03/11/2024 docusate sodium (COLACE) 100 mg Capsule Take 1 capsule by mouth 2 times daily. 09/05/2017 12/27/2021 documented as of this encounter Progress Notes * Tammy Domingo RN - 10/20/2021 2:10 PM EST Patient meets discharge criteria per protocol. AVS and discharge instructions reviewed with patientand visitor, verbalized understanding. Pain well controlled and tolerable at this level, patient able to eat and drink without nausea or vomiting. Instructed to call with questions or concerns. documented in this encounter H&P Notes * Howard Segundo MD - 10/19/2021 9:00 AM EST Patient Name: Jeff Arreguin Patient Age: 56 y.o. Birthdate: 1965 Admit date: 10/20/2021 Attending Physician: Ino Enamorado MD Jeff Arreguin is a 56 y.o. male with history of chronic opioid use for OA, severe anxiety, and long standing LUTS who was followed by Dr. Altman, presenting for TUR, biopsy and possible PVP. The patient's history is as below: 04/2021 Telehealth visit with me for LUTS which seemed irritative and only CT on file was 2016 showed 30-35g prostate so we were going to try pelvic floor PT. ?? 09/28/21 Patient was found with 397cc in his bladder and could not void, so Dr. Altman placed a catheter. Updated CT scans were uploaded for my review yesterday 09/23/21 which showed a 70-80cc prostate now but there appeared to be asymmetrical and irregular growth of the right lobe into the bladder neck with thickening of the bladder at that area in my opinion. ?? I emailed Dr. Altman and spoke with patient regarding some concern for possible bladder or prostatecancer causing the irregular growth. ?? 10/12/21 Patient is scheduled for cysto, TUR, and PVP on 10/20/21. Repeat PSA 2.0 (down from 3.1) despite his prostate doubling in size. Patient has catheter in place and is becoming more accustomed to it. ACAP: ASA81 Pre op Cx: From June, Ucx with no growth MEDICAL AND SURGICAL HISTORY Past Medical History: Diagnosis Date ??? Arthritis ??? Chronic anxiety ??? Hypertension Past Surgical History: Procedure Laterality Date ??? CHOLECYSTECTOMY, LAPAROSCOPIC ??? FOOT SURGERY left ??? PRG EMG, LARYNX N/A 09/04/2017 FACIAL NERVE MONITORING, SETUP LARYNGEAL (WRVU 1.57) performed by Karishma Maurer MD at [facility] MAIN OR ??? PRO ERCP,DIAGNOSTIC 08/22/2013 ERCP performed by Duane Garcia MD at [facility] ENDOSCOPY ??? PRO EXPLORE PARATHYROID GLANDS N/A 09/04/2017 PARATHYROIDECTOMY OR EXPLORATION OF PARATHYROID(S) (WRVU 15.6) performed by Karishma Maurer MD at [facility] MAIN OR ??? TONSILLECTOMY ALLERGIES Allergies Allergen Reactions ??? Ephedrine Anxiety ??? Suboxone [Buprenorphine-Naloxone] Hives ??? Lexapro [Escitalopram] Other (See Comments) [place] odd MEDICATIONS No current facility-administered medications on file prior to encounter. Current Outpatient Medications on File Prior to Encounter Medication Sig Dispense Refill ??? acetaminophen (TYLENOL) 500 mg Tablet Take 2 tablets by mouth every 6 hours as needed for Pain. ??? ibuprofen (ADVIL;MOTRIN) 600 mg Tablet Take 1 tablet by mouth every 6 hours as needed for Pain. ??? Calcium Citrate-Vitamin D3 315-250 mg-unit Tablet Take 2 tablets by mouth 3 times daily. (Patient taking differently: Take 2 tablets by mouth daily as needed.) ??? docusate sodium (COLACE) 100 mg Capsule Take 1 capsule by mouth 2 times daily. (Patient taking differently: Take 100 mg by mouth 2 times daily as needed.) ??? aspirin 81 mg Tablet, Delayed Release (E.C.) Take 81 mg by mouth every evening. ??? ondansetron (ZOFRAN-ODT) 4 mg Tablet, Rapid Dissolve Take 4 mg by mouth every 8 hours as neededfor Nausea. PHYSICAL EXAM Temp: [36 ??C (96.8 ??F)] Heart Rate: [58] Resp: [18] BP: (159)/(86) SpO2: [95 %] Heart Rate from SpO2: -- GEN: Resting comfortably in bed, conversant, NAD. CHEST: Normal work of breathing. CV: Sinus rhythm. 2+ pulses bilaterally. ABD: Soft, non-tender, non-distended. EXTR: Moving spontaneously. SKIN: Warm and dry. NEURO: Alert and follows commands. ASSESSMENT / PLAN 56 y.o. male presenting for Cysto, TUR, possible PVP. Patient appears fit for surgery. The details,alternatives, risks, and benefits of the procedure were reviewed, and the patient wishes to proceed. Informed consent has been obtained. All questions were answered to the patient's satisfaction. Proceed with surgery. The patient's history and physical exam have been reviewed and completed. There has been no interval change from that of the pre-operative history and physical exam performed within the last 30 days. documented in this encounter Miscellaneous Notes * Brief Op Note - Howard Segundo MD - 10/20/2021 10:07 AM EST [facility] Brief Operative Note [address] Patient Name: Jeff Arreguin : [id number] MR#: [id number] Case Date: 10/20/2021 Case Scheduled Time: 829 Surgeon: Surgeon(s) and Role: * Ino Enamorado MD - Primary * Howard Segundo MD - Resident Preoperative diagnosis: BPH, irregular prostate growth Postoperative diagnosis: BPH, irregular prostate growth Procedure(s) (LRB): CYSTO, LASER TURP (WRVU 12.15) (N/A) MODIFIER,GREENLIGHT LASER (N/A) CYSTO, TRANSURETHRAL RESECTION BLADDER NECK (WRVU 8.14) (N/A) URETHRAL DILATION STRICTURE, MALE; GENERAL OR SPINAL ANESTHESIA (WRVU 1.28) (N/A) Anesthesia: General Findings: Tight urethral meatus requiring dilation to 30Fr to accommodate resectoscope. Significantly distorted prostate anatomy due to necrotic and cancerous appearing tissue, focused from 7oclock to 1 oclock (right side) of the bladder neck, extending towards the apex. Minimal vaporization once tissue was identified as cancerous. Laser used following resection of bladder neck and prostate for hemostasis. Complications: None evident Intake: Intraprocedure Crystalloid Total Intake ampicillin (Omnipen) 2 g vial attach to sodium chloride 0.9% 100 mL Mini-Bag Plus 100.00 mL Total Intake 100 mL Transfusion No data found in the last 1 encounters. Output: Estimated Blood Loss: * No values recorded between 10/20/2021 9:08 AM and 10/20/2021 10:05 AM * Urine Output:: (no urine output recorded) Other Output: (no other output recorded) Drains: 20Fr [address] way dowd Specimens removed during surgery: Intra-Procedure Orders (From admission, onward) Start Ordered 10/20/21 0920 Specimen to Pathology (Multiple Specimen to Pathology requests panel ) ONE TIME Question Answer Comment Clinical History and Diagnosis: BPH, irregular prostate growth Specimen Source: bladder nec tumor biopsy Specimen Type: biopsy Time specimen removed from patient: 9:19 AM Number of tissue samples (in container) Multiple Fresh Breast Specimen? No Biospecimen to store? No 10/20/21 0949 Disposition: awakened from anesthesia, extubated and taken to the recovery room in a stable condition, having suffered no apparent untoward event. Condition: doing well without problems (Please see the Surgical Encounter Summary for any Implant and Specimen details pertinent to this patient.) * Op Note - Ino Enamorado MD - 10/20/2021 9:08 AM EST [facility] Operative Note [address] Patient Name: Jeff Arreguin : [id number] MR#: [id number] Case Date: 10/20/2021 Case Scheduled Time: 829 Surgeon: Surgeon(s) and Role: * Ino Enamorado MD - Primary * Howard Segundo MD - Resident Preoperative diagnosis: BPH, irregular prostate growth Postoperative diagnosis: BPH, irregular prostate growth Procedure(s) (LRB): CYSTO, LASER TURP (WRVU 12.15) (N/A) MODIFIER,GREENLIGHT LASER (N/A) CYSTO, TRANSURETHRAL RESECTION BLADDER NECK (WRVU 8.14) (N/A) URETHRAL DILATION STRICTURE, MALE; GENERAL OR SPINAL ANESTHESIA (WRVU 1.28) (N/A) Anesthesia: General Findings: Tight urethral meatus requiring dilation to 30Fr to accommodate resectoscope. Significantly distorted prostate anatomy due to necrotic and cancerous appearing tissue, focused from 7oclock to 1 oclock (right side) of the bladder neck, extending towards the apex. Minimal vaporization once tissue was identified as cancerous. Laser used following resection of bladder neck and prostate for hemostasis. Complications: None evident Intake: Intraprocedure Crystalloid Total Intake ampicillin (Omnipen) 2 g vial attach to sodium chloride 0.9% 100 mL Mini-Bag Plus 100.00 mL Total Intake 100 mL Transfusion No data found in the last 1 encounters. Output: Estimated Blood Loss: * No values recorded between 10/20/2021 9:08 AM and 10/20/2021 10:05 AM * Urine Output:: (no urine output recorded) Other Output: (no other output recorded) Drains: 20Fr 3 way dowd Specimens removed during surgery: Intra-Procedure Orders (From admission, onward) Start Ordered 10/20/21 0920 Specimen to Pathology (Multiple Specimen to Pathology requests panel ) ONE TIME Question Answer Comment Clinical History and Diagnosis: BPH, irregular prostate growth Specimen Source: bladder nec tumor biopsy Specimen Type: biopsy Time specimen removed from patient: 9:19 AM Number of tissue samples (in container) Multiple Fresh Breast Specimen? No Biospecimen to store? No 10/20/21 0949 Disposition: awakened from anesthesia, extubated and taken to the recovery room in a stable condition, having suffered no apparent untoward event. Condition: doing well without problems Surgical Indications: Jeff Arreguin is a 56 y.o. male with history of chronic opioid use for OA, severe anxiety, and long standing LUTS who was followed by Dr. Altman, presenting for TUR, biopsy and possible PVP. The patient's history is as below: ?? 04/2021 Telehealth visit with me for LUTS which seemed irritative and only CT on file was 2016 showed 30-35g prostate so we were going to try pelvic floor PT. ?? 09/28/21 Patient was found with 397cc in his bladder and could not void, so Dr. Altman placed a catheter.?? Updated CT scans were??uploaded for my review yesterday 09/23/21 which showed??a 70-80cc prostate now but there appeared??to be asymmetrical and irregular growth of the right lobe into the bladder neck with thickening of the bladder at that area in my opinion. ?? I emailed Dr. Altman??and spoke with patient regarding??some concern for possible bladder or prostate cancer causing the irregular growth. ?? 10/12/21 Patient is scheduled for cysto, TUR, and PVP on 10/20/21. Repeat PSA 2.0 (down from 3.1) despite his prostate doubling in size. Patient has catheter in place and is becoming more accustomed to it. ?? ACAP: ASA81 Pre op Cx: From June, with no growth Procedure Description: The patient was identified in the pre-operative holding area. Consent was verified. The patient wastaken to the operating room and placed supine on the operating table. General anesthesia was induced. The patient was then moved to the lithotomy position and prepped and draped in the usual sterile fashion. A timeout was performed involving all members of the OR team confirming the patient's identity and planned procedure. Preoperative antibiotics were administered. A 24 Fr resectoscope was unable to be inserted under direct vision. The patient's meatus was then sequentially dilated to 30 [place] using [place] sounds. Prostatic anatomy was found to be significantly abnormal. No verumontanum was able to be identified. On entering the bladder, it was apparent that there was large volume of abnormal tissue particularly on the right bladder neck. We began the procedure with bipolar resection. The abnormal tissue along the right bladder neck wasresected partially down to the level of the bladder neck and part of the prostate was resected as well. We then switched to greenlight laser and began vaporization of the median lobe to create a channel to assist the patient in voiding. After a small amount of vaporization, it was apparent that themajority of the prostatic tissue had been replaced with cancerous tissue and then the greenlight laser was used only for hemostasis. Once an adequate channel had been resected and hemostasis achieved, the chips from the bladder neck as well as the chips from the prostatic channel were irrigated outof the bladder. Excellent hemostasis was again noted. At this point in the procedure, with a reasonable amount of bladder neck resected a full 360 degree cystoscopy was performed. This revealed circumferential abnormal appearing tissue at the bladder neck with a focus on the right bladder neck from7:00 to 1:00. The bladder was left partially full and the resectoscope was removed under direct vision. A 20 [place] three-way catheter was placed with ease and CBI was started with immediate return of clear yellowurine. Patient tolerated the procedure well and was awakened from anesthesia and transported to the postoperative care unit. Dr. Enamorado, the attending surgeon, was present for the entire procedure. Infection Bundle used? N/A Howard Segundo MD 10/20/2021 Plan: -Remove catheter at home on Sunday -present to Dr. Altman's office if unable to void -Follow up TBD based on pathology ATTESTATION: I, Dr. Enamorado, was present and scrubbed for the entire procedure. documented in this encounter Plan of Treatment Upcoming Encounters Date Type Department Care Team (Latest Contact Info) Description 08/05/2024 11:30 AM EST Office Visit Hematology/Oncolog y at [address] [phone] Deyvi Ibrahim MD [facility] DR HEMATOLOGY [place] [address] Isabel Berry APRN [facility] [place] [address] 08/05/2024 12:00 PM EST Infusion Hematology Oncology at [address] [phone] 08/27/2024 10:00 AM EST Hospital Encounter [place] [phone] Gulshan Elder MD [facility] [place] [address] 08/27/2024 10:00 AM EST Anesthesia [place] [phone] Swati Gonzalez MD [facility] [place] [address] 08/27/2024 10:00 AM EST - 08/27/2024 11:00 AM EST Surgery [place] [phone] Gulshan Elder MD [facility] [place] [address] EGD, UPPER GI ENDOSCOPY (WRVU 2.09) Scheduled [...] Procedure Name Priority Date/Time Associated Diagnosis Comments SPECIMEN TO PATHOLOGY Routine 10/20/2021 9:49 AM EST SOLID TUMOR NGS PANEL Routine 10/20/2021 9:19 AM EST SURGICAL PATHOLOGY REPORT Routine 10/20/2021 9:19 AM EST Dil Urethra Stric, Male, Gen Anesth ([id number]) 10/20/2021 8:40 AM EST Urinary retention Benign prostatic hyperplasia, unspecified whether lower urinary tract symptoms present Transurethral Resec Bladder Neck ([id number]) 10/20/2021 8:40 AM EST Urinary retention Benign prostatic hyperplasia, unspecified whether lower urinary tract symptoms present MODIFIER,GREENLIGHT LASER 10/20/2021 8:40 AM EST Urinary retention Benign prostatic hyperplasia, unspecified whether lower urinary tract symptoms present Laser Vaporization Surgery Prostate, Complete ([id number]) 10/20/2021 8:40 AM EST Urinary retention Benign prostatic hyperplasia, unspecified whether lower urinary tract symptoms present documented in this encounter Results * Specimen to Pathology (10/20/2021 9:49 AM EST) AP Specimen 10/20/2021 9:49 AM EST 10/20/2021 9:49 AM EST Narrative [facility] - 10/20/2021 9:49 AM EST Specimen requisition ordered. ??Separate Pathology report to follow Ino Enamorado MD PATHOLOGY/[place] [address] * Solid Tumor NGS Panel (10/20/2021 9:19 AM EST) Tissue 10/20/2021 9:19 AM EST 11/07/2021 12:25 PM EDT Narrative Resulting Agency Comment Spec In Lab Ino Enamorado MD PATHOLOGY/CYTOLOGY [place] [facility] [place] [address] * Surgical Pathology Report (10/20/2021 9:19 AM EST) Final Diagnosis [id number] ? Location: [facility]; [address] The signing pathologist has (i) examined the relevant preparation(s) for the specimen(s) and (ii) rendered or confirmed the diagnosis(es). . ? Immunohistochemistry DIAGNOSIS Prostatic adenocarcinoma with intact nuclear staining for ??MLH1, MSH2, MSH6, and PMS2 in tumor cells. Electronically signed by: ?Richard MAYES, Kirit Díaz Verified: ??11/07/2021 9:48 ?? Pathologist Performed at: ??-[facility] Dept. of Pathology, [place], [place] INTERPRETATION Block ? Antibody ? Result (Positive/Negative) A-1 ?MLH1 ?Positive, intact nuclear staining ? MSH2 ?Positive, intact nuclear staining ? MSH6 ?Positive, intact nuclear staining ? PMS2 ?Positive, intact nuclear staining Interpretation: Immunostains for MLH1, MSH2, MSH6, and PMS2 reveal intact nuclear staining in tumor cells. ??In a very small percentage of tumors, there may still be an underlying hereditary defect in these DNA mismatch repair genes despite intact nuclear expression of the protein in tumor cells ?? . Genetic counseling and/or additional workup is indicated in patients with a family history that meets current criteria for HNPCC screening. Immunohistochemical assay was performed on paraffin-embedded tissue sections fixed in 10% neutral buffered formalin for 6-72 hours using the polymer system technique with appropriate controls. The assay was performed according to the composition tile layer's intructions using anti-MLH-1 (ES05), anti-MSH-2 ([id number]), anti-MSH-6 (44), and anti-PMS-2 (MRQ-28) antibodies. ?Surgical Pathology DIAGNOSIS Bladder neck tumor and prostatic tissue, transurethral resection: ? Prostatic adenocarcinoma, grade group 4, Jj ?grade 4+4, involving 100% of the submitted ?tissue. CR-0 Electronically signed by: ?Richard MAYES, Kirit Díaz Verified: ??10/25/2021 11:13 ??Pathologist Performed at: ??-[facility] Dept. of Pathology, [place], [place] DISCUSSION Scanned slides: [id number] [id number] ADDITIONAL STUDIES Formalin-fixed, paraffin-embedded tissue sections are studied using the B-SA system technique with appropriate positive and negative controls. Block ? Antibody ?Result (Degree of immunoreactivity) A-1 ?[id number] ? Diffuse nuclear immunoreactivity A-1 ?[id number] ?Negative . ADDITIONAL STUDIES A-1 ?P63 ?Negative A-1 ?P504S ?Multifocal immunoreactivity A-1 ?PSA ?Multifocal immunoreactivity IHC studies provide the pathologist with adjunctive diagnostic information. Antibody specificity has been verified by testing antibodies on a series of in-house tissues with known immunohistochemical performance characteristics. The clinical interpretation of any antibody positive staining or its absence is evaluated within the context of clinical presentation, morphology, ??histopathological criteria and other diagnostic tests. SPECIMEN(S) SUBMITTED A - Bladder neck tumor, TURB and TURP CLINICAL INFORMATION BPH, irregular prostate growth SPECIMEN PROCESSING A - Labeled/Fixative: Patient demographics, formalin. Quantity/Size/Weight: Fragments, 3.8 x 2.4 x 1.1 cm, 3.4 grams. Tissue Description: Bernal-pink rubbery tissue. Sections/Processing: Entirely submitted in 4 cassettes labeled A1-A4. pps 11/07/2021 9:48 AM EDT [facility] Urinary Bladder, TUR 10/20/2021 9:19 AM EST 10/20/2021 9:19 AM EST Ino Enamorado MD PATHOLOGY/CYTOLOGY O [place] [facility] [place] [address] documented in this encounter Visit Diagnoses Diagnosis Urinary retention Retention of urine, unspecified Benign prostatic hyperplasia, unspecified whether lower urinary tract symptoms present Abnormal CT of the abdomen Nonspecific (abnormal) [...] MAR Action Action Date Dose Rate Site acetaminophen (Ofirmev) (1000 mg/100 mL) infusion 1,000 mg 1,000 mg, Intravenous, at 400 mL/hr, Administer over 15 Minutes, ONCE, 1 dose, On [place] 10/20/21 at 1100, Maximum dose of acetaminophen is 4000 mg from all sources in 24 hours. When ordered for pain, acetaminophen should be given even when other ordered pain medications are indicated. , PACU Recovery, Routine, Is ketorolac (Toradol) IV contraindicated? Yes / kidney disease, Can this patient tolerate oral medications or suppositories? No / npo Given 10/20/2021 10:40 AM EST 1,000 mg 400 mL/hr acetaminophen (Ofirmev) 1,000 mg/100 mL (10 mg/mL) infusion 1 dose, Starting on [place] 10/20/21 at 1038, Until [place] 10/20/21 at 1055, Alissa Benz: cabinet override fentaNYL (PF) (50 mcg/mL) injection 25-50 mcg 25-50 mcg, Intravenous, EVERY 10 MIN PRN, Starting on [place] 10/20/21 at 0958, Until [place] 10/20/21 at 1419, Pain, Give 25 mcg every 10 minutes PRN for mild to moderate pain (1-5) Give 50 mcg every 10 minutes PRN for moderate to severe pain (6-10). Hold for respiratory rate less than 10 per minute. Maximum dose 250 mcg over one hour. If ordered with hydromorphone or morphine, give hydromorphone or morphine first and use fentanyl for breakthrough pain., PACU Recovery, Routine Given 10/20/2021 10:27 AM EST 50 mcg lactated ringers infusion 1,000 mL, Intravenous, CONTINUOUS, Starting on [place] 10/20/21 at 0700, Until [place] 10/20/21 at 1419, Day of Surgery (Day of Procedure) Restarted 10/20/2021 8:38 AM EST New Bag 10/20/2021 7:58 AM EST 1,000 mLs 30 mL/hr lidocaine (Glydo) 2 % gel ONCE PRN, Starting on [place] 10/20/21 at 0917, Until [place] 10/20/21 at 1415, Intra-Operative (Intra-Procedure), Routine Given 10/20/2021 9:17 AM EST 11 mLs LORazepam (Ativan) (2 mg/mL) injection 1 mg 1 mg, Intravenous, EVERY 10 MIN PRN, 2 doses, Starting on [place] 10/20/21 at 1043, Until [place] 10/20/21 at 1056, Anxiety, May repeat 1 mg dose as needed after 10 minutes for a total dose of 2 mg., PACU Recovery, Routine Given 10/20/2021 10:56 AM EST 1 mg Given 10/20/2021 10:46 AM EST 1 mg oxybutynin (Ditropan) tablet 10 mg 10 mg, Oral, 3 TIMES DAILY, First dose on [place] 10/20/21 at 1100, Until Discontinued, Routine Given 10/20/2021 10:4 0 AM EST 10 mg oxyCODONE (Roxicodone) tablet 5 mg 5 mg, Oral, EVERY 4 HOURS PRN, Starting on [place] 10/20/21 at 1038, Until [place] 10/20/21 at 1621, Pain, Routine Given 10/20/2021 1:59 PM EST 5 mg documented in this encounter Active and Recently Administered Medications Times are shown in EST. Scheduled Medication Order 10/18/2021 10/19/2021 10/20/2021 acetaminophen (Ofirmev) (1000 mg/100 mL) infusion 1,000 mg (COMPLETED) 1,000 mg, Intravenous, at 400 mL/hr, Administer over 15 Minutes, ONCE, 1 dose, On [place] 10/20/21 at 1100, Maximum dose of acetaminophen is 4000 mg from all sources in 24 hours. When ordered for pain, acetaminophen should be given even when other ordered pain medications are indicated. , PACU Recovery, Routine, Is ketorolac (Toradol) IV contraindicated? Yes / kidney disease, Can this patient tolerate oral medications or suppositories? No / npo 1040 (Given - Provid er: Alissa Real RN) ampicillin (Omnipen) 2 g vial attach to sodium chloride 0.9% 100 mL Mini-Bag Plus (COMPLETED) 2,000 mg (2 g), Intravenous, SUPERVISOR LAST [employer]DEL DEPARTMENT TO O.R., 1 dose, On Sun10/20/21 at 0700, Administer over 15 Minutes, Warning Vesicant/Irritant Medication , Day of Surgery (Day of Procedure), Indication for (Active or Suspected): Prophylaxis 0850 (New Bag - Prov ider: Tiffanie Davis) gentamicin (Garamycin) 418.4 mg in sodium chloride 0.9% 110.46 mL infusion (COMPLETED) 418.4 mg (rounded from 418.5 mg = 5 mg/kg/dose ? 83.7 kg Adjusted weight), Intravenous, SUPERVISOR [employer] DEPARTMENT TO O.R., 1 dose, On Sun10/19/21 at 1345, Administer over 60 Minutes, This medication may have an associated drug lab level. Please check for lab orders. Warning Vesicant/Irritant Medication , Day of Surgery (Day of Procedure), Indication for (Active or Suspected): Prophylaxis 0917 (New Bag - Prov ider: Tiffanie Davis) oxybutynin (Ditropan) tablet 10 mg 10 mg, Oral, 3 TIMES DAILY, First dose on [place] 10/20/21 at 1100, Until Discontinued, Routine 1040 (Given - Provid er: Tammy Domingo RN) Continuous Medication Order 10/18/2021 10/19/2021 10/20/2021 lactated ringers infusion (CANCELED) 1,000 mL, Intravenous, CONTINUOUS, Starting on [place] 10/20/21 at 0700, Until [place] 10/20/21 at 1419, Day of Surgery (Day of Procedure) 0758 (New Bag - Prov ider: Tammy Domingo RN)0837 (Paused - Provider: Tiffanie Davis - Comment: Switch to gravity)0838 (Restarted - Provider: Tiffanie Davis)1021 (Anesthesia Volume Adjustment - Provider: Tiffanie Davis) PRN Medication Order 10/18/2021 10/19/2021 10/20/2021 fentaNYL (PF) (50 mcg/mL) injection 25-50 mcg (CANCELED) 25-50 mcg, Intravenous, EVERY 10 MIN PRN, Starting on [place] 10/20/21 at 0958, Until [place] 10/20/21 at 1419, Pain, Give 25 mcg every 10 minutes PRN for mild to moderate pain (1-5) Give 50 mcg every 10 minutes PRN for moderate to severe pain (6-10). Hold for respiratory rate less than 10 per minute. Maximum dose 250 mcg over one hour. If ordered with hydromorphone or morphine, give hydromorphone or morphine first and use fentanyl for breakthrough pain., PACU Recovery, Routine 1027 (Given - Provid er: Tammy Domingo RN) lidocaine (Glydo) 2 % gel (CANCELED) ONCE PRN, Starting on [place] 10/20/21 at 0917, Until [place] 3 at 1415, Intra-Operative (Intra-Procedure), Routine 0917 (Given - Provid er: Ino Enamorado MD) LORazepam (Ativan) (2 mg/mL) injection 1 mg (COMPLETED) 1 mg, Intravenous, EVERY 10 MIN PRN, 2 doses, Starting on [place] 10/20/21 at 1043, Until [place] 3 at 1056, Anxiety, May repeat 1 mg dose as needed after 10 minutes for a total dose of 2 mg., PACU Recovery, Routine 1046 (Given - Provid er: Alissa Real RN)1056 (Given - Provider: Alissa Real RN) oxyCODONE (Roxicodone) tablet 5 mg 5 mg, Oral, EVERY 4 HOURS PRN, Starting on [place] 10/20/21 at 1038, Until [place] 10/20/21 at 1621, Pain, Routine 1359 (Given - Provid er: Tammy Domingo RN) No Frequency Medication Order 10/18/2021 10/19/2021 10/20/2021 sorbitoL-mannitoL 2.7-0.54 gram/100 mL irrigation 1 dose, Starting on [place] 10/20/21 at 0749, Until [place] 10/20/21 at 1621, Ricki Duncan: cabinet override 0800 (Due) documented in this encounter Care Teams Security Officer Supervisor Relationship Specialty Start Date End Date Yoni Ramírez MD [address] [place] [id number] PCP - General 07/05/10 documented as of this encounter
--- OUTSIDE RECORDS SUMMARY | 2024-07-31 18:44 | XMS_ITS | Encounter Summary ---
Author Organization [facility] [place] [address] Care Team Providers Care Anchor Operator Name Role Phone Yoni Ramírez MD Primary Care Provider Encounter Details Date Type Department Care Team (Late Contact Info) Description 09/28/2021 [place] [phone] Ino Enamorado MD [facility] [place] [address] Social History Tobacco Use Types Packs/Day Years [...] encounter Miscellaneous Notes * Telephone Encounter - Jaimie Naranjo - 09/28/2021 4:07 PM EST Left vm for pt to call back for [facility] DIAL. Hold for surgery on 10/20 Thank you Jaimie documented in this encounter Plan of Treatment Upcoming Encounters Date Type Department Care Team (Latest Contact Info) Description 08/05/2024 11:30 AM EST Office Visit Hematology/Oncolog y at [address] [phone] Deyvi Ibrahim MD [facility] [place] [address] Isabel Berry APRN [facility] [place] [address] 08/05/2024 12:00 PM EST Infusion Hematology Oncology at [address] [phone] 08/27/2024 10:00 AM EST Hospital Encounter [place] [phone] Gulshan Elder MD [facility] [place] [place] [address] 08/27/2024 10:00 AM EST Anesthesia [place] [phone] Swati Gonzalez MD [facility] [place] [address] 08/27/2024 10:00 AM EST - 08/27/2024 11:00 AM EST Surgery [place] [phone] Gulshan Elder MD [facility] [place] [address] EGD, UPPER GI ENDOSCOPY (WRVU 2.09) Scheduled [...] on filedocumented in this encounter Care Teams Anchor Operator Relationship Specialty Start Date End Date Yoni Ramírez MD [address] [place] [id number] PCP - General 07/05/10 documented as of this encounter
--- OUTSIDE RECORDS SUMMARY | 2024-07-31 18:44 | XMS_ITS | Encounter Summary ---
Author Organization [facility] [place] [address] Care Team Providers Care Scouring Train Operator Name Role Phone Yoni Ramírez MD Primary Care Provider [phone] Reason for Visit * Reason Onset Date Comments Community Resources 12/07/2021 Encounter Details Date Type Department Care Team (Late st Contact Info) Description 12/07/2021 Telephone Hematology/Oncology at [address] [phone] Makenna Sorto, [facility] OFFICE OF CARE MANAGEMENT Community Resources Social History Tobacco Use Types Packs/Day Years [...] slept in a retirement (including now)? No 10/26/2021 Sex and Gender Information Value Date Recorded Sex Assigned at Not on file Gender Identity Not on file Sexual Orientation Not on file documented as of this encounter Miscellaneous Notes * Telephone Encounter - Makenna Sorto MSW - 12/07/2021 12:00 PM EDT TC pt as a follow up and to remind pt and to gather receipts for gas and the wood they purchased. Receipts required by the [facility] for the funds they sent pt. No answer and left message requesting a call back. documented in this encounter Plan of Treatment Upcoming Encounters Date Type Department Care Team (Latest Contact Info) Description 08/05/2024 11:30 AM EST Office Visit Hematology/Oncolog y at [address] [phone] Deyvi Ibrahim MD [facility] DR [place] [address] Isabel Berry APRN [facility] [place] [address] 08/05/2024 12:00 PM EST Infusion Hematology Oncology at [address] [phone] 08/27/2024 10:00 AM EST Hospital Encounter [place] [phone] Gulshan Elder MD [facility] [place] [address] 08/27/2024 10:00 AM EST Anesthesia Event [place] [phone] Swati Gonzalez MD [facility] [place] [address] 08/27/2024 10:00 AM EST - 08/27/2024 11:00 AM EST Surgery [place] [phone] Gulshan Elder MD [facility] [place] [address] EGD, UPPER GI ENDOSCOPY (WRVU 2.09) Scheduled [...] on filedocumented in this encounter Care Teams Scouring Train Operator Relationship Specialty Start Date End Date Yoni Ramírez MD [address] [place] [id number] PCP - General 07/05/10 documented as of this encounter
--- OUTSIDE RECORDS SUMMARY | 2024-07-31 18:44 | XMS_ITS | Encounter Summary ---
Author Organization [facility] [place] [address] Care Team Providers Care Community Health Program Coordinator Name Role Phone Yoni Ramírez MD Primary Care Provider Reason for Referral * Consultation (Routine) - Closed Specialty Diagnoses / Procedures Referred By Contac t Referred To Contact Care Management Diagnoses Malignant neoplasm of prostate Financial difficulties Heather Rangel APRN [address] [place] [address] DR HEMATOLOGY [place] [address] [place], [place] Referral ID Status Reason Start Date Expiration Date V isits Requested Visits Authorized [id number] Closed Consult, Test & Treat 11/02/2021 11/02/2022 1 1 Reason for Visit * Reason Comments Advice Only * Consultation (Urgent) - Closed Specialty Diagnoses / Procedures Referred By Contac t Referred To Contact Hematology and Oncology Diagnoses Malignant neoplasm of prostate Ino Enamorado MD [facility] [address] St Hem Onc Office [address] [place] [phone] Referral ID Status Reason Start Date Expiration Date V isits Requested Visits Authorized [id number] Closed Consult, Test & Treat 10/25/2021 10/25/2022 1 1 Encounter Details Date Type Department Care Team (Late st Contact Info) Description 11/02/2021 2:30 PM EDT Office Visit Hematology [place] [address] Deyvi Ibrahim MD [facility] DR HEMATOLOGY [place] [address] Heather Rangel, [address] HEMATOLOGY [place] [address] Malignant neoplasm of prostate (Primary Dx); Financial difficulties Social History Tobacco Use Types Packs/Day Years [...] Sign Reading Time Taken Comments Blood Pressure 139/53 11/02/2021 2:31 PM EDT Pulse 56 11/02/2021 2:31 PM EDT Temperature 36.5 ??C (97.7 ??F) 11/02/2021 2:31 PM ED T Respiratory Rate 16 11/02/2021 2:31 PM EDT Oxygen Saturation 95% 11/02/2021 2:31 PM EDT Inhaled Oxygen Concentration - - Weight 99.8 kg (220 lb) 11/02/2021 2:31 PM EDT Height - - Body Mass Index 31.57 10/20/2021 7:37 AM EST documented in this encounter Progress Notes * Deyvi Ibrahim MD - 11/02/2021 2:30 PM EDT Images from the original note were not included. Diagnosis: Prostatic adenocarcinoma, 4, [place] 4+4, PSA 2.1 CC: My back and hips [...] He is urination has improved since TURP PMH: Hyperlipidemia, obesity, hypertension, osteoarthritis, history of kidney [...] Hives ??? Lexapro [Escitalopram] Other (See Comments) [place] odd Medications: Your Medications Accurate as of November 02, 2021 9:51 PM. If you have any questions, ask your nurse or doctor. Continued medications with new dosing Dose Details Calcium Citrate-Vitamin D3 315 mg-6.25 mcg (250 unit) Tab Take 2 tablets by mouth 3 times daily. What changed: ?? when to take this ?? reasons to take this 2 tablet Refills: 0 docusate sodium 100 mg Cap Commonly known as: Colace Take 1 capsule by mouth 2 times daily. What changed: ?? when to take this ?? reasons to take this 100 mg Refills: 0 Continued medications, unchanged Dose Details [...] TABLET BY MOUTH EVERY EVENING Refills: 0 finasteride 5 mg Tab Commonly known as: Proscar Take 5 mg by mouth every evening. 5 mg Refills: 0 ibuprofen 600 mg Tab Commonly known as: Advil Take 1 tablet by mouth every 6 hours as needed for Pain. 600 mg Refills: 0 metoprolol succinate XL 100 mg Tablet sr Commonly known as: Toprol-XL Take 100 mg by mouth every evening. 100 mg Refills: 0 naloxone 4 mg/actuation [place] Commonly known as: Narcan Narcan 4 mg/actuation nasal spray Take 1 spray as needed by nasal route. Refills: 0 ondansetron ODT 4 mg Tbdl Commonly known as: Zofran-ODT Take 4 mg by mouth every 8 hours as needed for Nausea. 4 mg Refills: 0 oxybutynin 5 mg Tab Commonly known as: Ditropan Take 5 mg by mouth every evening. 5 mg Refills: 0 oxyCODONE 5 mg Tab Commonly known as: Roxicodone Take 1 tablet by mouth every 4 hours as needed for Pain. 5 mg Quantity: 10 tablet Refills: 0 pantoprazole EC 40 mg Tbec [...] hours as needed. 25 mg Refills: 0 senna 8.6 mg Tab Commonly known as: Senokot 17.2 mg daily as needed. 17.2 mg Refills: 0 sertraline 100 mg Tab [...] axillary nodes normal Neurologic: Normal Vitals BP 139/53 (Patient Position: Sitting) Pulse 56 Temp 36.5 ??C (97.7 ??F) (Temporal) Resp 16 Wt 99.8 kg (220 lb) SpO2 95% BMI 31.57 kg/m?? Pathology: 10/20/21 Bladder neck tumor and prostatic tissue, transurethral resection: ?Prostatic adenocarcinoma, grade group 4, Jj ? grade 4+4, involving 100% of the submitted ? tissue. Labs: Recent Results (from the past 24 hour(s)) Testosterone, total Result Value Ref Range Testo Total 3.29 1.93 - 7.40 ng/mL Comprehensive metabolic panel (non-fasting) Result Value Ref Range Glucose Lvl 112 65 - 199 mg/dL BUN 19 10 - 20 mg/dL Creatinine 1.04 0.80 - 1.50 mg/dL Sodium 139 135 - 145 mmol/L Potassium 5.1 (H) 3.5 - 5.0 mmol/L Chloride 104 98 - 107 mmol/L CO2 28 22 - 31 mmol/L Anion Gap 7 5 - 15 mmol/L Calcium 8.3 (L) 8.5 - 10.5 mg/dL Total Protein 6.6 6.1 - 8.0 g/dL Albumin 4.3 3.2 - 5.2 g/dL AST 26 0 - 39 unit/L ALT 30 0 - 55 unit/L Alk Phos 121 40 - 130 unit/L Total Bilirubin 0.5 0.2 - 1.3 mg/dL Estimated GFR 79 >=60 mL/min/1.73 m?? PSA (Ultrasensitive) Result Value Ref Range PSA Total (Ultrasensitive) 1.72 0.00 - 4.00 ng/mL Hemogram Result Value Ref Range WBC 8.3 4.0 - 9.5 x10(3)/mcL RBC 3.44 (L) 4.58 - 5.54 x10(6)/mcL Hemoglobin 11.4 (L) 13.7 - 16.5 g/dL Hematocrit 34.2 (L) 40.5 - 48.5 % MCV 99.4 (H) 82.9 - 93.1 fL MCH 33.1 (H) 27.5 - 32.1 pg MCHC 33.3 32.0 - 35.7 g/dL Platelets 234 145 - 357 x10(3)/mcL RDWSD 47.9 (H) 36.0 - 45.0 fL RDWCV 13.0 11.4 - 13.8 % MPV 9.6 7.6 - 12.9 fL nRBC % Auto 0.0 % nRBC Abs Auto 0.000 0.000 - 0.000 x10(3)/mcL Differential, Automated Result Value Ref Range Neutrophils % 64.7 % Neutr Abs (ANC) 5.38 1.70 - 6.10 x10(3)/mcL Lymphocytes % 21.7 % Lymphocytes Abs 1.8 0.9 - 3.2 x10(3)/mcL Monocytes % 8.0 % Monocyte Abs 0.7 0.3 - 0.9 x10(3)/mcL Eosinophils % 4.9 % Eosinophils Abs 0.4 0.0 - 0.4 x10(3)/mcL Basophils % 0.2 % Basophils Abs 0.0 0.0 - 0.1 x10(3)/mcL Immature Gran % 0.50 % Adrianna Gran Abs 0.04 0.00 - 0.04 x10(3)/mcL PSA testosteron 11/02/21 1.79 3.29 10/06/21 2.1 09/03/20 3.0 Imagin10/27/21 pelvic MRI IMPRESSION ? Seminal vesicle involvement:Yes [...] and Plan: Diagnosis: Prostatic adenocarcinoma, grade 4, [place] 4+4 Treatment: none Mr. Arreguin is 56 years [...] He would like to be treated at [facility] close to his home. #Financial hardship: Mr. Arreguin would like to discuss with psychosocial rehabilitation counselor. Plan: 1. CT chest abdomen pelvis and bone scan 2. Next visit in 2-3 weeks with blood work and degarelix 240 mg Mr. Arreguin is accompanied by his [...] EST Office Visit Hematology/Oncolog y at [address] [address] Deyvi Ibrahim MD [facility] [place] [address] Isabel Berry APRN [facility] [place] [address] 08/05/2024 12:00 PM EST Infusion Hematology Oncology at [address] [address] 08/27/2024 10:00 AM EST Hospital Encounter [place] [address] Gulshan Elder MD [facility] [place] [address] 08/27/2024 10:00 AM EST Anesthesia [place] [phone] Swati Gonzalez MD [facility] [place] [address] 08/27/2024 10:00 AM EST - 08/27/2024 11:00 AM EST [place] [phone] Gulshan Elder MD [facility] [place] [address] EGD, UPPER GI ENDOSCOPY (WRVU 2.09) Scheduled Orders Name Type Priority Associated Diagnoses Orde r Schedule Specimen to Pathology Additional Testing Pathology/Cytol ogy Routine Malignant neoplasm of prostate Ordered: 11/02/2021 Scheduled Procedures Name Priority Associated Diagnoses Date/Ti [...] Associated Diagnoses Orde r Schedule Referral to Care / Case Management Outpatient Referral Routine Malignant neoplasm of prostate Financial difficulties Ordered: 11/02/2021 documented as of this encounter Procedures Procedure Name Priority Date/Time Associated Diagnosis Comments HEMOGRAM Routine 11/02/2021 3:20 PM EDT Malignant neoplasm of prostate DIFFERENTIAL, AUTOMATED Routine 11/02/2021 3:20 PM EDT Malignant neoplasm of prostate HC CBC,PLT & AUTO DIFF Routine 3:20 PM EDT Malignant neoplasm of prostate HC VENIPUNCTURE Routine 11/02/2021 3:20 PM EDT Malignant neoplasm of prostate HC PROSTATE SPECIFIC ANTIGEN Routine 11/02/2021 3:20 PM EDT Malignant neoplasm of prostate COMPREHENSIVE METABOLIC PANEL Routine 11/02/2021 3:20 PM EDT Malignant neoplasm of prostate documented in this encounter Results * Differential, Automated (11/02/2021 3:20 PM EDT) Neutrophil % 64.7 % [facility] Neutrophil Absolute 5.38 1.70 - 6.10 x10(3)/[facility] Lymph % 21.7 % [facility] Lymphocytes Abs 1.8 0.9 - 3.2 x10(3)/[facility] Monocyte % 8.0 % [facility] Monocyte Abs 0.7 0.3 - 0.9 x10(3)/[facility] Eos % 4.9 % [facility] Eosinophils Abs 0.4 0.0 - 0.4 x10(3)/[facility] Basophil % 0.2 % [facility] Baso Absolute 0.0 0.0 - 0.1 x10(3)/[facility] Immature Gran % 0.50 % [facility] Comment: Immature granulocytes(IG's)percentage and absolute count will include metamyelocytes, myelocytes, and promyelocytes. Blood smears from CBCs yielding IG's will be scanned manually for concordance. If this scan disagrees with the automated IG or if promyelocytes are noted, a manual differential will be performed. Immature Gran Absolute 0.04 0.00 - 0.04 x10(3)/[facility] Blood 11/02/2021 3:20 PM EDT 11/02/2021 3:41 PM EDT Narrative Resulting Agency Comment Spec In Lab Deyvi Ibrahim MD HEMATOLOGY ORDERABLE S [facility] [place] [address] * (ABNORMAL) Hemogram (11/02/2021 3:20 PM EDT) White Blood Cell 8.3 4.0 - 9.5 x10(3)/mc L [facility] Red Blood Cell 3.44(L) 4.58 - 5.54 x10(6)/mc L [facility] Hemoglobin 11.4(L) 13.7 - 16.5 g/dL [facility] Hematocrit 34.2(L) 40.5 - 48.5 % [facility] Mean Cell Volume 99.4(H) 82.9 - 93.1 [facility] Mean Cell Hemoglobin 33.1(H) 27.5 - 32.1 pg [facility] Mean Cell Hemoglobin Concentration 33.3 32.0 - 35.7 g/dL [facility] Platelet 234 145 - 357 x10(3)/mc L [facility] RDW Standard Deviation 47.9(H) 36.0 - 45.0 [facility] RDW coefficient of variation 13.0 11.4 - 13.8 % [facility] Mean Platelet Volume 9.6 7.6 - 12.9 [facility] NRBC% auto 0.0 % [facility] NRBC Absolute 0.000 0.000 - 0.000 x10(3)/mc L [facility] Blood 11/02/2021 3:20 PM EDT 11/02/2021 3:41 PM EDT Narrative Resulting Agency Comment Spec In Lab Deyvi Ibrahim MD HEMATOLOGY ORDERABLE S [facility] [place] [address] * Testosterone, total (11/02/2021 3:20 PM EDT) [facility] Signature Testosterone 3.29 1.93 - 7.40 ng/mL [facility] Comment: Pediatric Reference Ranges: ? Males [...] Rosangela Mary Testosterone II 04/2016, v6.0 Blood 11/02/2021 3:20 PM EDT 11/02/2021 3:41 PM EDT Narrative Resulting Agency Comment Spec In Lab Deyvi Ibrahim MD CHEMISTRY ORDERABLES [facility] [place] [address] * (ABNORMAL) Comprehensive metabolic panel (non-fasting) (11/02/2021 3:20 PM EDT) Glucose 112 65 - 199 mg/dL [facility] Comment:Diabetes: >=200 mg/d L plus symptoms Blood Urea Nitrogen 19 10 - 20 mg/dL [facility] Creatinine 1.04 0.80 - 1.50 mg/dL [facility] Sodium 139 135 - 145 mmol/L [facility] Potassium 5.1(H) 3.5 - 5.0 mmol/L [facility] Comment: Please note: ??Patients with WBC >100,000 may have falsely elevated Potassium levels. ??For accurate Potassium quantification in these patients send serum separator tube (gold top) for subsequent determinations. ??Contact the Clinical Chemistry Laboratory if there are any questions. Chloride 104 98 - 107 mmol/L [facility] Carbon Dioxide 28 22 - 31 mmol/L [facility] Anion Gap 7 5 - 15 mmol/L [facility] Calcium 8.3(L) 8.5 - 10.5 mg/dL [facility] Protein, Total 6.6 6.1 - 8.0 g/dL [facility] Albumin 4.3 3.2 - 5.2 g/dL [facility] Aspartate Aminotransferase 26 0 - 39 unit/L [facility] Alanine Aminotransferase 30 0 - 55 unit/L [facility] Alkaline Phosphatase 121 40 - 130 unit/L [facility] Bilirubin, Total 0.5 0.2 - 1.3 mg/dL [facility] Est Glomerular Filtration Rate 79 >=60 mL/min/1. 73 m?? [facility] Comment: This patient? s estimated glomerular filtration rate (eGFR) is between 79 mL/min/1.73 m2 (patients with less muscle mass per kg body weight) and 91 mL/min/1.73 m2 (patients with more muscle mass [...] and symptoms in addition to eGFR. Blood 11/02/2021 3:20 PM EDT 11/02/2021 3:41 PM EDT Narrative Resulting Agency Comment Spec In Lab Deyvi Ibrahim MD CHEMISTRY ORDERABLES Performing Organization Address [facility] Co de Phone Number [facility] [place] [address] * PSA (Ultrasensitive) (11/02/2021 3:20 PM EDT) Prostate Specific Antigen (Ultrasensitive ) 1.72 0.00 - 4.00 ng/mL [facility] Comment: PLEASE NOTE: The above reference interval is intended for healthy males with an intact prostate. Values within this reference interval may indicate recurrence in men who have undergone radical prostatectomy. Blood 11/02/2021 3:20 PM EDT 11/02/2021 3:41 PM EDT Narrative Resulting Agency Comment Spec In Lab Deyvi Ibrahim MD CHEMISTRY ORDERABLES Performing Organization Address City/[facility] Co de Phone Number [facility] [place] [address] documented in this encounter Visit Diagnoses Diagnosis Malignant neoplasm of prostate- Primary Financial difficulties Inadequate material resources Abnormal CT of the abdomen Nonspecific (abnormal) findings on radiological and other examination of abdominal area, including retroperitoneum Esophagitis Esophagitis, unspecified Gastroesophageal reflux disease with esophagitis, unspecified whether hemorrhage Colitis Other and unspecified noninfectious gastroenteritis and colitis Screen for colon cancer Special screening for malignant neoplasms, colon documented in this encounter Care Teams Community Health Program Coordinator Relationship Specialty Start Date End Date Yoni Ramírez MD [address] [address] PCP - General 07/05/10 documented as of this encounter
--- OUTSIDE RECORDS SUMMARY | 2024-07-31 18:44 | XMS_ITS | Encounter Summary ---
Author Organization [facility] [place] [address] Care Team Providers Care Professor Of Exercise Science Name Role Phone Yoni Ramírez MD Primary Care Provider [phone] Encounter Details Date Type Department Care Team (Late st Contact Info) Description 10/13/2021 9:00 AM EST Telephone Pre Admission Testing at [address] [phone] Social History Tobacco Use Types Packs/Day Years Used Date Smoking Tobacco: Former Cigarettes 1 25 0 08/13/1986 - 08/13/2011 Smokeless Tobacco: Never Alcohol Use Standard Drinks/Week Comments Not Currently 0 (1 standard drink = 0.6 oz pur e alcohol) 2 drinks a month Sex and Gender Information Value Date Recorded Sex Assigned at Not on file Gender Identity Not on file Sexual Orientation Not on file documented as of this encounter Last Filed Vital Signs Vital Sign Reading Time Taken Comments Blood Pressure - - Pulse - - Temperature - - Respiratory Rate - - Oxygen Saturation - - Inhaled Oxygen Concentration - - Weight 99.8 kg (220 lb) 10/13/2021 9:24 AM EST Height 177.8 cm (5' 10) 10/13/2021 9:24 AM EST Body Mass Index 31.57 10/13/2021 9:24 AM EST documented in this encounter Progress Notes * Melanie Winkler RN - 10/13/2021 9:27 AM EST EXPOSURE: Have you been in contact with anyone suspected of or confirmed to have COVID-19 in the PAST 10 DAYS? []Yes [x]No COVID-19 SCREENING: In the past 10 days, have you had any of the following symptoms: [] Fever (subjective or documented fever) [] Chills [] Cough [] Shortness of breath or difficulty breathing [] Fatigue [] Muscle or body aches [] Headache [] New loss of taste or smell [] Sore throat [] Nausea or vomiting [] Diarrhea [x]NONE OF THE ABOVE 3 Moderna vaccinations, doesn't dates Tested positive for Covid (within the past 6 weeks): [] Yes [x] No Upper respiratory symptoms: [] Yes [x] No Lower respiratory symptoms: [] Yes [x] No OTHER SCREENING Anticipated Disposition from PACU: home (patient states he is staying over) Transportation Plan To and From Hospital: [place] documented in this encounter Plan of Treatment Upcoming Encounters Date Type Department Care Team (Latest Contact Info) Description 08/05/2024 11:30 AM EST Office Visit Hematology/Oncolog y at [address] [phone] Deyvi Ibrahim MD [facility] DR [place] [address] Isabel Berry APRN [facility] [place] [address] 08/05/2024 12:00 PM EST Infusion Hematology Oncology at [address] [phone] 08/27/2024 10:00 AM EST Hospital Encounter [place] [phone] Gulshan Elder MD [facility] [place] [address] 08/27/2024 10:00 AM EST Anesthesia [place] [phone] Swati Gonzalez MD [facility] [place] [address] 08/27/2024 10:00 AM EST - 08/27/2024 11:00 AM EST Surgery [place] [address] Gulshan Elder MD [facility] [place] [address] EGD, UPPER GI ENDOSCOPY (WRVU 2.09) Scheduled [...] on filedocumented in this encounter Care Teams Professor Of Exercise Science Relationship Specialty Start Date End Date Yoni Ramírez MD [address] [place] [id number] PCP - General 07/05/10 documented as of this encounter
--- OUTSIDE RECORDS SUMMARY | 2024-07-31 18:44 | XMS_ITS | Encounter Summary ---
Author Organization [facility] [place] [address] Care Team Providers Care Relationship Manager Name Role Phone Yoni Ramírez MD Primary Care Provider [phone] Reason for Visit * Reason Onset Date Comments Community Resources 11/17/2021 Encounter Details Date Type Department Care Team (Late st Contact Info) Description 11/17/2021 Telephone Hematology/Oncology at [address] [phone] Makenna Sorto, [facility] CARE MANAGEMENT Community Resources Social [...] slept in a fdc (including now)? No 10/26/2021 Sex and Gender Information Value Date Recorded Sex Assigned at Not on file Gender Identity Not on file Sexual Orientation Not on file documented as of this encounter Miscellaneous Notes * Telephone Encounter - Makenna Sorto MSW - 11/17/2021 11:42 AM EDT Revieved notification that the [employer] Vt did approved pt's second request for $225 for wood for heating. TC to inform her. Requested a copy of the receipt when she purchases the wood for the fundsrecARKeX. Care Coordination Financial resources Community Resource documented in this encounter Plan of Treatment Upcoming Encounters Date Type Department Care Team (Latest Contact Info) Description 08/05/2024 11:30 AM EST Office Visit Hematology/Oncolog y at [address] [phone] Deyvi Ibrahim MD [facility] HEMATOLOGY [place] [address] Isabel Berry APRN [facility] [place] [address] 08/05/2024 12:00 PM EST Infusion Hematology Oncology at [address] [phone] 08/27/2024 10:00 AM EST Hospital Encounter [place] [address] Gulshan Elder MD [facility] [place] [address] 08/27/2024 10:00 AM EST Anesthesia Event [place] [phone] Swati Gonzalez MD [facility] DR [place] [address] 08/27/2024 10:00 AM EST - 08/27/2024 11:00 AM EST Surgery [place] [phone] Gulshan Elder MD [facility] [place] [address] EGD, UPPER GI ENDOSCOPY (WRVU 2.09) Scheduled [...] on filedocumented in this encounter Care Teams Relationship Manager Relationship Specialty Start Date End Date Yoni Ramírez MD [address] [place] [phone] PCP - General 07/05/10 documented as of this encounter
--- OUTSIDE RECORDS SUMMARY | 2024-07-31 18:44 | XMS_ITS | Encounter Summary ---
Author Organization [facility]ly [facility] [place] [address] Care Team Providers Care Recyclable Materials Collector Name Role Phone Yoni Ramírez MD Primary Care Provider [phone] Reason for Visit * Reason Onset Date Comments Other 11/08/2021 Financial resour kathe Encounter Details Date Type Department Care Team (Late st Contact Info) Description 11/08/2021 Telephone Hematology/Oncology at [address] [phone] Makenna Sorto, [facility] [place] [facility]ICE [facility] CARE MANAGEMENT Other (Financial resources) Social History Tobacco Use Types Packs/Day [...] slept in a mcc (including now)? No 10/26/2021 Sex and Gender Information Value Date Recorded Sex Assigned at Not on file Gender Identity Not on file Sexual Orientation Not on file documented as of this encounter Miscellaneous Notes * Telephone Encounter - Makenna Sorto MSW - 11/08/2021 10:06 AM EDT Received notification from the [facility] that they approved pt's request for $225 in gas funds for travel costs and check to be mailed to pt today. TC pt and spoke to to notify her of this. indicated she did receive a message from the fund about this too. with questions re funds available for firewood. Pt did receive fuel assistance to purchase food for the heating season last fall. They need an additional cord of wood to get through the rest of the cold weather. They do have a propane heating system as a back up. Suggested [employer] but they have assisted pt already. Pt could make second request to [facility] for $225 but would need a bill from their wood supplier. to call the state as they are expecting another fuel assistance payment. Care Coordination Community Resource documented in this encounter Plan of Treatment Upcoming Encounters Date Type Department Care Team (Latest Contact Info) Description 08/05/2024 11:30 AM EST Office Visit Hematology/Oncolog y at [address] [phone] Deyvi Ibrahim MD [facility] [place] [address] [address] Isabel Berry APRN [facility] [place] [address] 08/05/2024 12:00 PM EST Infusion Hematology Oncology at [address] [phone] 08/27/2024 10:00 AM EST Hospital Encounter [place] [phone] Gulshan Elder MD [facility] [place] [address] 08/27/2024 10:00 AM EST Anesthesia Event [place] [phone] Swati Gonzalez MD [facility] [place] [address] 08/27/2024 10:00 AM EST - 08/27/2024 11:00 AM EST Surgery [place] [phone] Gulshan Elder MD [facility] [place] [address] EGD, UPPER GI ENDOSCOPY (WRVU 2.09) Scheduled [...] on filedocumented in this encounter Care Teams Recyclable Materials Collector Relationship Specialty Start Date End Date Primeau, Yoni E, MD [address] [place] [id number] PCP - General 07/05/10 documented as of this encounter
--- OUTSIDE RECORDS SUMMARY | 2024-07-31 18:44 | XMS_ITS | Encounter Summary ---
Author Organization [facility] [place] [address] Care Team Providers Care Bounty Hunter Name Role Phone Yoni Ramírez MD Primary Care Provider Encounter Details Date Type Department Care Team (Late st Contact Info) Description 09/23/2021 Orders Only Urology at [facility] [address] [place] [phone] Ino Enamorado MD [facility] [place] [address] Urinary retention; Benign prostatic hyperplasia, unspecified whether lower urinary tract symptoms present Social History Tobacco Use Types Packs/Day Years [...] EST Office Visit Hematology/Oncolog y at [address] [phone] Deyvi Ibrahim MD [facility] [place] [address] Isabel Berry APRN [facility] [place] [address] 08/05/2024 12:00 PM EST Infusion Hematology Oncology at [address] [phone] 08/27/2024 10:00 AM EST Hospital Encounter [place] [phone] Gulshan Elder MD [facility] [place] [address] 08/27/2024 10:00 AM EST Anesthesia Event [place] [phone] Swati Gonzalez MD [facility] [place] [address] 08/27/2024 10:00 AM EST - 08/27/2024 11:00 AM EST Surgery [place] [phone] Guslhan Elder MD [facility] [place] [address] EGD, UPPER GI ENDOSCOPY (WRVU 2.09) Scheduled Orders Name Type Priority Associated Diagnoses Orde r Schedule SURGICAL CASE REQUEST: CYSTO, LASER TURP (WRVU 12.15) Procedures Routine Urinary retention Benign prostatic hyperplasia, unspecified whether lower urinary tract symptoms present Ordered: 09/23/2021 Scheduled Procedures Name Priority Associated Diagnoses Date/Ti [...] as of this encounter Visit Diagnoses Diagnosis Urinary retention [...] colon documented in this encounter Care Teams Bounty Hunter Relationship Specialty Start Date End Date Yoni Ramírez MD [address] [place] [phone] PCP - General 07/05/10 documented as of this encounter
--- OUTSIDE RECORDS SUMMARY | 2024-07-31 18:44 | XMS_ITS | Encounter Summary ---
Author Organization [facility] [place] [address] Care Team Providers Care Instrument And Controls Technician Name Role Phone Yoni Ramírez MD Primary Care Provider [phone] Encounter Details Date Type Department Care Team (Late st Contact Info) Description 10/12/2021 11:20 AM EST TH Visit (TeleHealth) [place] [phone] Ino Enamorado MD [facility] [place] [address] Urinary retention Social History Tobacco Use Types Packs/Day Years [...] as of this encounter Progress Notes * Ino Enamorado MD - 10/12/2021 11:20 AM EST Urology Visit 55M with chronic opioid use for OA, severe anxiety, and long standing LUTS who was followed by Dr. Altman. 04/2021 Telehealth visit with me for LUTS which seemed irritative and only CT on file was 2016 showed 30-35g prostate so we were going to try pelvic floor PT. 09/28/21 Patient was found with 397cc in his bladder and could not void, so Dr. Altman placed a catheter. Updated CT scans were uploaded for my review yesterday 09/23/21 which showed a 70-80cc prostate now but there appeared to be asymmetrical and irregular growth of the right lobe into the bladder neck with thickening of the bladder at that area in my opinion. I emailed Dr. Altman and spoke with patient regarding some concern for possible bladder or prostatecancer causing the irregular growth. 10/12/21 Patient is scheduled for cysto, TUR, and PVP on 10/20/21. Repeat PSA 2.0 (down from 3.1) despite his prostate doubling in size. Patient has catheter in place and is becoming more accustomed to it. PMH and PSH reviewed. Assessment 56M with significant irregular enlargement of his prostate over the past 4 years but no concurrent rise in PSA. This could just be BPH, but without a PSA rise as well, there is some concern for an poorly differentiated malignancy or bladder cancer as well. Scheduled for cysto, TUR, and PVP on 10/20/21. Reviewed risks and expectations for procedure. PLAN - proceed with cysto, TUR, PVP on 10/20/21 with overnight observation Ino Enamorado MD 10/12/2021 11:27 AM documented in this encounter Plan of Treatment Upcoming Encounters Date Type Department Care Team (Latest Contact Info) Description 08/05/2024 11:30 AM EST Office Visit Hematology/Oncolog y at [address] [phone] Deyvi Ibrahim MD [facility] [place] [address] Isabel Berry APRN [facility] [place] [place] [address] 08/05/2024 12:00 PM EST Infusion Hematology Oncology at [address] [phone] 08/27/2024 10:00 AM EST Hospital Encounter [place] [address] Gulshan Elder MD [facility] [place] [place] [address] 08/27/2024 10:00 AM EST Anesthesia [place] [phone] Swati Gonzalez MD [facility] [place] [address] 08/27/2024 10:00 AM EST - 08/27/2024 11:00 AM EST Surgery [place] [phone] Gulshan Elder MD [facility] [place] [address] EGD, UPPER GI ENDOSCOPY (WRVU 2.09) Scheduled [...] Diagnosis Urinary retention Retention of urine, unspecified Abnormal CT of the abdomen Nonspecific (abnormal) findings on radiological and other examination of abdominal area, including retroperitoneum Esophagitis Esophagitis, unspecified Gastroesophageal reflux disease with esophagitis, unspecified whether hemorrhage Colitis Other and unspecified noninfectious gastroenteritis and colitis Screen for colon cancer Special screening for malignant neoplasms, colon documented in this encounter Care Teams Instrument And Controls Technician Relationship Specialty Start Date End Date Yoni Ramírez MD [address] [place] [address] PCP - General 07/05/10 documented as of this encounter
--- OUTSIDE RECORDS SUMMARY | 2024-07-31 18:44 | XMS_ITS | Encounter Summary ---
Author Organization [facility] [place] [address] Care Team Providers Care Facility Manager Name Role Phone Yoni Ramírez MD Primary Care Provider Encounter Details Date Type Department Care Team (Latest Contact Info) Description 12/19/2021 11:03 AM EDT - 12/19/2021 11:44 AM EDT Hospital Encounter [place]ematology [place] [address] Discharge Disposition: Home Social History Tobacco Use [...] slept in a halfway (including now)? No 10/26/2021 Sex and Gender [...] daily as needed. naloxone (Narcan) 4 mg/actuation [place], Non-Aerosol Narcan 4 mg/actuation nasal spray Take [...] AND ONE-HALF TABLET EVERY MORNING 12/16/2021 06/12/2023 oxyCODONE (Roxicodone) 5 mg Tablet Take 1 [...] 09/05/2017 12/27/2021 documented as of this encounter Plan of Treatment Upcoming Encounters Date Type Department Care Team (Latest Contact Info) Description 08/05/2024 11:30 AM EST Office Visit Hematology/Oncolog y at [address] [phone] Deyvi Ibrahim MD [facility] [place] [address] Isabel Berry APRN [facility] [place] [address] 08/05/2024 12:00 PM EST Infusion Hematology Oncology at [address] [phone] 08/27/2024 10:00 AM EST Hospital Encounter [place] [address] Gulshan Elder MD [facility] [place] [address] 08/27/2024 10:00 AM EST Anesthesia [place] [phone] Swati Gonzalez MD [facility] [place] [address] 08/27/2024 10:00 AM EST - 08/27/2024 11:00 AM EST Surgery [place] [phone] Gulshan Elder MD [facility] [place] [address] EGD, UPPER GI ENDOSCOPY (WRVU 2.09) Scheduled [...] on filedocumented in this encounter Care Teams Facility Manager Relationship Specialty Start Date End Date Yoni Ramírez MD [address] [place] [address] PCP - General 07/05/10 documented as of this encounter
--- OUTSIDE RECORDS SUMMARY | 2024-07-31 18:44 | XMS_ITS | Encounter Summary ---
[place] [address] Care Team Providers Care Physician Office Assistant Name Role Phone Yoni Ramírez MD Primary Care Provider [phone] Reason for Referral * Diagnostic Test (Routine) - Closed Specialty Diagnoses / Procedures Referred By Contac t Referred To Contact Radiology Diagnoses Benign prostatic hyperplasia, unspecified whether lower urinary tract symptoms present Procedures MRI Pelvis wwo (Prostate) Aguila Altman MD [address] [place] [address] [place] [address] Referral ID Status Reason Start Date Expiration Date V isits Requested Visits Authorized [id number] Closed Specialty Service Requested 10/04/2021 04/03/2023 1 1 Reason for Visit * Diagnostic Test (Routine) - Closed Specialty Diagnoses / Procedures Referred By Contac t Referred To Contact Radiology Diagnoses Benign prostatic hyperplasia, unspecified whether lower urinary tract symptoms present Procedures MRI Pelvis wwo (Prostate) Aguila Altman MD [address] [place] [address] [place] [address] Referral ID Status Reason Start Date Expiration Date V isits Requested Visits Authorized [id number] Closed Specialty Service Requested 10/04/2021 04/03/2023 1 1 Encounter Details Date Type Department Care Team (Late st Contact Info) Description 10/27/2021 5:24 PM EDT - 10/27/2021 11:59 PM EDT [place] [address] Aguila Altman MD [address] [place] [address] Benign prostatic hyperplasia, unspecified whether lower urinary tract symptoms present Discharge Disposition: Home Social History Tobacco Use [...] slept in a assisted (including now)? No 10/26/2021 Sex and Gender [...] daily as needed. naloxone (Narcan) 4 mg/actuation [place], Non-Aerosol Narcan 4 mg/actuation nasal spray Take [...] AM EST Office Visit Hematology/Oncolog y at [address] [phone] Deyvi Ibrahim MD [facility] DR [place] [address] Isabel Berry APRN [facility] [place] [address] 08/05/2024 12:00 PM EST Infusion Hematology Oncology at [address] [phone] 08/27/2024 10:00 AM EST Hospital En[place] [phone] Gulshan Elder MD [facility] [place] [address] 08/27/2024 10:00 AM EST Anesthesia [place] [phone] Swati Gonzalez MD [facility] [place] [address] 08/27/2024 10:00 AM EST - 08/27/2024 11:00 AM EST [place] [address] Gulshan Elder MD [facility] [place] [address] EGD, UPPER GI ENDOSCOPY (WRVU 2.09) Scheduled [...] Priority Date/Time Associated Diagnosis Comments MRI PELVIS WWO (PROSTATE) Routine 10/27/2021 7:17 PM EDT Benign prostatic hyperplasia, unspecified whether lower urinary tract symptoms present documented in this encounter Results * MRI Pelvis wwo (Prostate) (10/27/2021 7:17 PM EDT) Anatomical Region Laterality Modality Pelvis Magnetic Resonan ce Impressions 10/28/2021 1:24 PM EDT Lesion 1 The entire prostate: PI-RADS 5. Clinically significant cancer is highly likely to be present. T2 location: axial series 9, image 22; sagittal ??series 8, image 23. Segmented in UroNav. PI-RADS v2.1 Assessment Categories PI-RADS 1 -- Very low (clinically significant cancer is highly unlikely to be present) PI-RADS 2 -- Low (clinically significant cancer is unlikely to be present) PI-RADS 3 -- Intermediate (the presence of clinically significant cancer is equivocal) PI-RADS 4 -- High (clinically significant cancer is likely to be present) PI-RADS 5 -- Very high (clinically significant cancer is highly likely to be present) References: Minnie S1, Teja JH1, William S1, Delacruz C1, Whitley J1, Marv M1, Gold S1, Castañeda G1, Rayn K1, Tejinder MJ1, Sarbjit BJ1, Lexie PA1, Ronni PL1, Mark B1. ??A Grading System for the Assessment of Risk of Extraprostatic Extension of Prostate Cancer at Multiparametric MRI. Radiology. 2019 Oct;290(3):709-719. doi: 10.1148/radiol.2463433340. Epub 2018Sep 03. Thank you for letting us participate in the care of this patient. ??If you are a health care provider and have any questions regarding this report, please contact the number below. ??For patients who have questions please contact the health child care group leader that requested your imaging first. ? Narrative 10/28/2021 1:24 PM EDT EXAMINATION: MRI PELVIS WWO (PROSTATE) CLINICAL HISTORY: Lower urinary tract symptoms due to benign prostatic hypertrophy REASON FOR PROSTATE EXAM: HAS PATIENT HAD PREVIOUS BIOPSY?:No, MOST RECENT PSA LEVEL:3.0 AMBER SCORE: TECHNIQUE: Multiparametric MRI of the prostate prior to and following IV administration of 20 cc of Dotarem contrast. ?? QUALITY: Meets PI-RADS technical criteria. COMPARISON: None FINDINGS: Prostate dimensions: 5.7 x 4.6 x 4.9cm. Estimated prostate volume: 61cc (X x Y x Z x 0.52) PSA density: 0.05 (PSA/prostate volume >0.15 susp, 0.25 highly susp) Peripheral and transition zones: Lesion 1. The entirety of the prostate gland relatively sparing left posterior apex. T2: Circumscribed, homogenous moderately hypointense mass with bilateral seminal vesicle involvement and gross extraprostatic extension at the right base, 5.9 x 4.7 cm axially, 4.8 cm craniocaudally. PI-RADs: 5. DWI: ??Focal markedly hypointense on ADC and markedly hyperintense on high b-value DWI. PI-RADs: 5. DCE-MRI: (+) focal early enhancement which corresponds to the suspicious finding on T2WI and/or DWI. ? Combined PI-RADs: 5. Extraprostatic disease: Seminal vesicle involvement:Yes Lymphadenopathy:No Sphincter involvement:No Bladder involvement:Yes, along the right aspect of the bladder neck. Osseous metastases: No . MRI-derived Extraprostatic extension risk: Grade 3: 66.1% (Joel breach of prostate margin or invasion ofadjacent structures) Other findings: None. Procedure Note Ugo Hua MD - 10/28/2021 EXAMINATION: MRI PELVIS WWO (PROSTATE) CLINICAL HISTORY: Lower urinary tract symptoms due to benign prostatic hypertrophy REASON FOR PROSTATE EXAM: HAS PATIENT HAD PREVIOUS BIOPSY?:No, MOST RECENT PSA LEVEL:3.0 AMBER SCORE: TECHNIQUE: Multiparametric MRI of the prostate prior to and following IV administration of 20 cc of Dotarem contrast. QUALITY: Meets PI-RADS technical criteria. COMPARISON: None FINDINGS: Prostate dimensions: 5.7 x 4.6 x 4.9cm. Estimated prostate volume: 61cc (X x Y x Z x 0.52) PSA density: 0.05 (PSA/prostate volume >0.15 susp, 0.25 highly susp) Peripheral and transition zones: Lesion 1. The entirety of the prostate gland relatively sparing leftposterior apex. T2: Circumscribed, homogenous moderately hypointense mass with bilateralseminal vesicle involvement and gross extraprostatic extension at the right base,5.9 x 4.7 cm axially, 4.8 cm craniocaudally. PI-RADs: 5. DWI: Focal markedly hypointense on ADC and markedly hyperintense onhigh b-value DWI. PI-RADs: 5. DCE-MRI: (+) focal early enhancement which corresponds to the suspiciousfinding on T2WI and/or DWI. Combined PI-RADs: 5. Extraprostatic disease: Seminal vesicle involvement:Yes Lymphadenopathy:No Sphincter involvement:No Bladder involvement:Yes, along the right aspect of the bladder neck. Osseous metastases: No . MRI-derived Extraprostatic extension risk: Grade 3: 66.1% (Joel breachof prostate margin or invasion ofadjacent structures) Other findings: None. IMPRESSION Lesion 1 The entire prostate: PI-RADS 5. Clinically significant cancer ishighly likely to be present. T2 location: axial series 9, image 22; sagittalseries 8, image 23. Segmented in UroNav. PI-RADS v2.1 Assessment Categories PI-RADS 1 -- Very low (clinically significant cancer is highly unlikely hong present) PI-RADS 2 -- Low (clinically significant cancer is unlikely to bepresent) PI-RADS 3 -- Intermediate (the presence of clinically significant canceris equivocal) PI-RADS 4 -- High (clinically significant cancer is likely to bepresent) PI-RADS 5 -- Very high (clinically significant cancer is highly likely hong present) References: Minnie S1, Teja JH1, William S1, Delacruz C1, Whitley J1, Marv M1,Gold S1, Castañeda G1, Rayn K1, Tejinder MJ1, Wood BJ1, Owen PA1, Ronni PL1, Mark B1.A Grading System for the Assessment of Risk of Extraprostatic Extension of Prostate Cancer at Multiparametric MRI. Radiology. 2019Mar;290(3):709-719. doi: 10.1148/radiol.8035863598. Epub 2018Sep 03. Thank you for letting us participate in the care of this patient. If youare a health care provider and have any questions regarding this report,please contact the number below. For patients who have questions please contactthe health child care group leader that requested your imaging first. Aguila Altman MD IM MRI ORDERABLES documented in this encounter Visit Diagnoses Diagnosis Benign prostatic hyperplasia, unspecified whether lower urinary [...] MAR Action Action Date Dose Rate Site gadoterate meglumine (Dotarem) (0.5 mMol/mL) injection solution 0-100 mL 0-100 mL, Intravenous, ONCE PRN, 1 dose, Starting on [place] 10/27/21 at 1907, Until [place] 10/27/21 at 1907, Per Protocol, Radiology Contrast, Routine Given 10/27/2021 7:07 PM EDT 20 mLs documented in this encounter Care Teams Physician Office Assistant Relationship Specialty Start Date End Date Yoni Ramírez MD [address] [place] [id number] PCP - General 07/05/10 documented as of this encounter
--- OUTSIDE RECORDS SUMMARY | 2024-07-31 18:44 | XMS_ITS | Encounter Summary ---
Author Organization [facility] Address [facility] [place] [address] Care Team Providers Care Dance Costume Designer Name Role Phone Yoni Ramírez MD Primary Care Provider [phone] Encounter Details Date Type Department Care Team (Latest Contact Info) Description 10/27/2021 Travel Social History Tobacco Use Types Packs/Day [...] slept in a fpc (including now)? No 10/26/2021 Sex and Gender Information Value Date Recorded Sex Assigned at Not on file Gender Identity Not on file Sexual Orientation Not on file documented as of this encounter Plan of Treatment Upcoming Encounters Date Type Department Care Team (Latest Contact Info) Description 08/05/2024 11:30 AM EST Office Visit Hematology/Oncolog y at [address] [phone] Deyvi Ibrahim MD [facility] DR [place] [address] Isabel Berry APRN [facility] [place] [address] 08/05/2024 12:00 PM EST Infusion Hematology Oncology at [address] [phone] 08/27/2024 10:00 AM EST Hospital Encounter [place] [phone] Gulshan Elder MD [facility] [place] [place] [address] 08/27/2024 10:00 AM EST Anesthesia [place] [phone] Swati Gonzalez MD [facility] [place] [address] 08/27/2024 10:00 AM EST - 08/27/2024 11:00 AM EST Surgery [place] [phone] Gulshan Elder MD [facility] [place] [address] EGD, UPPER GI ENDOSCOPY (WRVU 2.09) Scheduled [...] on filedocumented in this encounter Care Teams Dance Costume Designer Relationship Specialty Start Date End Date Yoni Ramírez MD [address] [place] [phone] PCP - General 07/05/10 documented as of this encounter
--- OUTSIDE RECORDS SUMMARY | 2024-07-31 18:44 | XMS_ITS | Encounter Summary ---
Author Organization [facility] Address [facility] [place] [address] Care Team Providers Care Background Check Coordinator Name Role Phone Yoni Ramírez MD [...] Expiration Date Visits Re quested Visits Authorized [id number] 1 1 Encounter Details Date Type Department Care Team (Latest Contact Info) Description 10/20/2021 7:19 AM EST - 10/20/2021 2:10 PM EST Hospital Encounter PACU at [address] [phone] Ino Enamorado MD [facility] [place] [address] Discharge Disposition: Home Social History Tobacco Use [...] Sign Reading Time Taken Comments Blood Pressure 160/88 10/20/2021 1:45 PM EST Pulse 72 10/20/2021 1:45 PM EST Temperature 36.6 ??C (97.9 ??F) 10/20/2021 1:45 PM ES T Respiratory Rate 18 10/20/2021 1:45 PM EST Oxygen Saturation 93% 10/20/2021 1:45 PM EST Inhaled Oxygen Concentration - - [...] * Indwelling Urinary Catheter Care: General Info (Burmese) * Dowd Catheter: Self-Removal: General Info (Burmese) documented in this encounter Medications at Time [...] daily as needed. naloxone (Narcan) 4 mg/actuation [place], Non-Aerosol Narcan 4 mg/actuation nasal spray [...] 1.57) performed by Karishma Maurer MD at [facility] MAIN OR ??? PRO ERCP,DIAGNOSTIC 08/22/2013 ERCP performed by Duane Garcia MD at [facility] ENDOSCOPY ??? PRO EXPLORE PARATHYROID GLANDS N/A 09/04/2017 PARATHYROIDECTOMY OR EXPLORATION OF PARATHYROID(S) (WRVU 15.6) performed by Karishma Maurer MD at [facility] MAIN OR ??? TONSILLECTOMY ALLERGIES Allergies Allergen Reactions ??? Ephedrine Anxiety ??? Suboxone [Buprenorphine-Naloxone] Hives ??? Lexapro [Escitalopram] Other (See Comments) [place] odd MEDICATIONS No current facility-administered medications on [...] Segundo MD - 10/20/2021 10:07 AM EST [facility] Brief Operative Note [address] Patient Name: Jeff Arreguin : [id number] MR#: [id number] Case Date: 10/20/2021 Case Scheduled Time: 829 [...] Enamorado MD - 10/20/2021 9:08 AM EST [facility] Operative Note [address] Patient Name: Jeff Arreguin : [id number] MR#: [id number] Case Date: 10/20/2021 Case Scheduled Time: 829 [...] Specimen? No Biospecimen to store? No 10/20/21 0954 Disposition: awakened from anesthesia, extubated and taken [...] Cx: From June, Ucx with no growth Procedure Description: The patient [...] meatus was then sequentially dilated to 30 [place]ese using [place] sounds. Prostatic anatomy was found to be [...] was removed under direct vision. A 20 [place]ese three-way catheter was placed with ease and [...] EST Office Visit Hematology/Oncolog y at [address] [phone] Deyvi Ibrahim MD [facility] DR HEMATOLOGY [place] [address] Isabel Berry APRN [facility] [place] [address] 08/05/2024 12:00 PM EST Infusion Hematology Oncology at [address] [phone] 08/27/2024 10:00 AM EST Hospital Encounter [place] [phone] Gulshan Elder MD [facility] [place] [address] 08/27/2024 10:00 AM EST Anesthesia [place] [address] Swati Gonzalez MD [facility] [place] [address] 08/27/2024 10:00 AM EST - 08/27/2024 11:00 AM EST Surgery [place] [address] Gulshan Elder MD [facility] [place] [address] EGD, UPPER GI ENDOSCOPY (WRVU 2.09) Scheduled [...] EST Dil Urethra Stric, Male, Gen Anesth (57593) 10/20/2021 8:40 AM EST Urinary retention Benign prostatic hyperplasia, unspecified whether lower urinary tract symptoms present Transurethral Resec Bladder Neck (80797) 10/20/2021 8:40 AM EST Urinary retention Benign prostatic hyperplasia, unspecified whether lower urinary tract symptoms present MODIFIER,GREENLIGHT LASER 10/20/2021 8:40 AM EST Urinary retention Benign prostatic hyperplasia, unspecified whether lower urinary tract symptoms present Laser Vaporization Surgery Prostate, Complete (19849) 10/20/2021 8:40 AM EST Urinary retention Benign prostatic hyperplasia, unspecified whether lower urinary tract symptoms present documented in this encounter Results * Specimen to Pathology (10/20/2021 9:49 AM EST) AP Specimen 10/20/2021 9:49 AM EST 10/20/2021 9:49 AM EST Narrative [facility] - 10/20/2021 9:49 AM EST Specimen requisition ordered. ??Separate Pathology report to follow Ino Enamorado MD PATHOLOGY/CYTOLOGY O [place] Performing Organization Address [facility]/ZIP Co de Phone Number [facility] [place] [address] * Solid Tumor NGS Panel (10/20/2021 9:19 AM EST) Tissue 10/20/2021 9:19 AM EST 11/07/2021 12:25 PM EDT Narrative Resulting Agency Comment Spec In Lab Ino Enamorado MD PATHOLOGY/CYTOLOGY O [place] [facility] [place] [address] * Surgical Pathology Report (10/20/2021 9:19 AM EST) Final Diagnosis [id number] ? Location: [facility]; [address] The signing pathologist has (i) examined the relevant preparation(s) for the specimen(s) and (ii) rendered or confirmed the diagnosis(es). . ? Immunohistochemistry DIAGNOSIS Prostatic adenocarcinoma with intact nuclear staining for ??MLH1, MSH2, MSH6, and PMS2 in tumor cells. Electronically signed by: ?Richard MAYES, Kirit Díaz Verified: ??11/07/2021 9:48 ?? Pathologist Performed at: ??-[facility] [place] [place], [place], [place] INTERPRETATION Block ? Antibody ? Result [...] The assay was performed according to the geographical historian's intructions using anti-MLH-1 (ES05), anti-MSH-2 ([id number]), anti-MSH-6 (44), and anti-PMS-2 (MRQ-28) antibodies. ?Surgical Pathology DIAGNOSIS Bladder neck tumor and prostatic tissue, transurethral resection: ? Prostatic adenocarcinoma, grade group 4, Jj ?grade 4+4, involving 100% of the submitted ?tissue. CR-0 Electronically signed by: ?Richard MAYES, Kirit Díaz Verified: ??10/25/2021 11:13 ??Pathologist Performed at: ??-[facility] [place], [place], [place] DISCUSSION Scanned slides: [id number] A1-1 [id number] A4-1 ADDITIONAL STUDIES Formalin-fixed, paraffin-embedded tissue sections are studied using the B-SA system technique with appropriate positive and negative controls. Block ? Antibody ?Result (Degree of immunoreactivity) A-1 ?NKX-31 ? Diffuse nuclear immunoreactivity A-1 ?RY99-Even-S10 ?Negative . ADDITIONAL STUDIES A-1 ?P63 ?Negative [...] labeled A1-A4. pps 11/07/2021 9:48 AM EDT [facility] Urinary Bladder, TUR 10/20/2021 9:19 AM EST 10/20/2021 9:19 AM EST Ino Enamorado MD PATHOLOGY/CYTOLOGY O RDERABRENDA [facility] [place] [address] documented in this encounter Visit Diagnoses Not [...] 7:58 AM EST 1,000 mLs 30 mL/hr LORazepam (Ativan) (2 mg/mL) injection 1 mg [...] Plus (COMPLETED) 2,000 mg (2 g), Intravenous, CAUSTICS LOADER TO O.R., 1 dose, On [place] 10/20/21 [...] mg/kg/dose ? 83.7 kg Adjusted weight), Intravenous, CAUSTICS LOADER TO O.R., 1 dose, On Sun10/19/21 at [...] [place] 10/20/21 at 1415, Intra-Operative (Intra-Procedure), Routine 0917 (Given [...] (Due) documented in this encounter Care Teams Background Check Coordinator Relationship Specialty Start Date End Date Yoni Ramírez MD [address] [place] [address] PCP - General 07/05/10 documented as of this encounter
--- OUTSIDE RECORDS SUMMARY | 2024-07-31 18:44 | XMS_ITS | Encounter Summary ---
Author Organization [facility] [place] [address] Care Team Providers Care Registered Occupational Therapist Name Role Phone Yoni Ramírez MD Primary Care Provider [phone] Reason for Visit * Reason Onset Date Comments Other 11/03/2021 Financial resour kathe Encounter Details Date Type Department Care Team (Late st Contact Info) Description 11/03/2021 Telephone Hematology/Oncology at [address] [phone] Makenna Sorto, [facility] OFFICE OF CARE MANAGEMENT Other (Financial resources) [...] Notes * Telephone Encounter - Makenna Sorto Silke, PROJECT STRUCTURAL ENGINEER - 11/03/2021 2:18 PM EDT Message received to reach out to pt/ to discuss their financial concerns. Pt screened +SDOH. TC who reports pt is undergoing tests and scans to develop a treatment plan for his newly diagnosed prostate cancer. He has made multiple trips to [facility] and is expecting additional trips to [facility]. He and his live on his limited income for SSDI. They are having financial hardship in affording gas to travel to his appointments. has reached out to the [employer] and the [employer] but both funds need referral from a social work. indicated they were not able to meet with aSW their last trip to [facility]. given my name as a resource. Per request from pt/ PROJECT STRUCTURAL ENGINEER will make a request to the [place] [employer] ([employer]) for assistance with gas cards. If granted card will be mailed to pt. PROJECT STRUCTURAL ENGINEER will also reach out to the [employer] to make sure pt meets their criteria as he has not started treatment yet. PROJECT STRUCTURAL ENGINEER will follow up with pt/ after this. indicated she has applied pt for Medicaid and is waiting a decision. Pt also receives food assistance and fuel assistance. Will follow up with pt/ to further assess needs but will try to get them some resources for gasfor travel. Brief assessment Financial resources Transportation resources documented in this encounter Plan of Treatment Upcoming Encounters Date Type Department Care Team (Latest Contact Info) Description 08/05/2024 11:30 AM EST Office Visit Hematology/Oncolog y at [address] [phone] Deyvi Ibrahim MD [facility] [place] [address] Isabel Berry APRN [facility] [place] [place] [address] 08/05/2024 12:00 PM EST Infusion Hematology Oncology at [address] [phone] 08/27/2024 10:00 AM EST Hospital Encounter [place] [phone] Gulshan Elder MD [facility] [place] [address] 08/27/2024 10:00 AM EST Anesthesia [place] [phone] Swati Gonzalez MD [facility] [place] [address] 08/27/2024 10:00 AM EST - 08/27/2024 11:00 AM EST Surgery [place] [phone] Gulshan Elder MD [facility] [place] [address] EGD, UPPER GI ENDOSCOPY (WRVU 2.09) Scheduled [...] on filedocumented in this encounter Care Teams Registered Occupational Therapist Relationship Specialty Start Date End Date Yoni Ramírez MD [address] [place] [address] PCP - General 07/05/10 documented as of this encounter
--- OUTSIDE RECORDS SUMMARY | 2024-07-31 18:44 | XMS_ITS | Encounter Summary ---
Author Organization [facility] [place] [address] Care Team Providers Care Systems Applications Programming Lead Name Role Phone Yoni Ramírez MD Primary Care Provider [phone] Reason for Visit * Reason Onset Date Comments Other 11/14/2021 Community resour kathe Encounter Details Date Type Department Care Team (Late st Contact Info) Description 11/14/2021 Telephone Hematology/Oncology at [address] [phone] Makenna Sorto, [facility] OFFICE OF CARE MANAGEMENT Other (Community resources) [...] Telephone Encounter - Makenna Sorto MSW - 11/14/2021 10:50 AM EDT Call from indicated she did receive the gas cards from [employer] and the gas funds from the [facility]. would like to make a second request to the [facility] for $225 towards the cost of wood. indicated she did speak to the tax manager public about this and that she did not needs a bill or voucher from her wood supplier. PROCUREMENT ASSISTANT will reach out to the [facility] and confirm what information pt/ needs to supply to make a second request from the fund. Will notify is she needs to provide additional information to make this second request. Care Coordination Financial resources documented in this encounter Plan of Treatment Upcoming Encounters Date Type Department Care Team (Latest Contact Info) Description 08/05/2024 11:30 AM EST Office Visit Hematology/Oncolog y at [address] [phone] Deyvi Ibrahim MD [facility] HEMATOLOGY [place] [address] Isabel Berry APRN [facility] [place] [address] 08/05/2024 12:00 PM EST Infusion Hematology Oncology at [address] [phone] 08/27/2024 10:00 AM EST Hospital En[place] [phone] Gulshan Elder MD [facility] [place] [address] 08/27/2024 10:00 AM EST Anesthesia [place] [phone] Swati Gonzalez MD [facility] [place] [address] 08/27/2024 10:00 AM EST - 08/27/2024 11:00 AM EST [place] [phone] Gulshan Elder MD [facility] [place] [address] EGD, UPPER GI ENDOSCOPY (WRVU 2.09) Scheduled [...] on filedocumented in this encounter Care Teams Systems Applications Programming Lead Relationship Specialty Start Date End Date Yoni Ramírez MD [address] [place] [address] PCP - General 07/05/10 documented as of this encounter
--- OUTSIDE RECORDS SUMMARY | 2024-07-31 18:44 | XMS_ITS | Encounter Summary ---
Author Organization [facility] [place] [address] Care Team Providers Care Solderer Production Line Name Role Phone Yoni Ramírez MD Primary Care Provider [phone] Reason for Visit * Reason Onset Date Comments Follow-up 11/08/2021 Encounter Details Date Type Department Care Team (Late st Contact Info) Description 11/08/2021 Telephone Hematology/Oncology at [address] [phone] Manav Dexter, RN Follow-up Social History Tobacco Use Types [...] Telephone Encounter - Manav Dexter RN - 11/09/2021 9:18 AM EDT Called and LM to return call to discuss. ----- Message from Saima Rivas sent at 11/08/2021 11:45 AM EDT ----- I spoke with Jeff's today regarding his upcoming appointment on 11/29. She mentioned that he seems to be very depressed and has been sleeping until 3-4pm everyday because he is in pain. I thoughtit would be worth mentioning as we are in a holding period until 11/29. When you have time, do you mind giving them a call to check in at [phone]? documented in this encounter Plan of Treatment Upcoming Encounters Date Type Department Care Team (Latest Contact Info) Description 08/05/2024 11:30 AM EST Office Visit Hematology/Oncolog y at [address] [phone] Deyvi Ibrahim MD [facility] [place] [address] Isabel Berry APRN [facility] [place] [address] 08/05/2024 12:00 PM EST Infusion Hematology Oncology at [address] [phone] 08/27/2024 10:00 AM EST Hospital Encounter [place] [address] Gulshan Elder MD [facility] [place] [address] 08/27/2024 10:00 AM EST Anesthesia [place] [phone] Swati Gonzalez MD [facility] [place] [address] 08/27/2024 10:00 AM EST - 08/27/2024 11:00 AM EST [place] [address] Gulshan Elder MD [facility] [place] [address] EGD, UPPER GI ENDOSCOPY (WRVU 2.09) Scheduled [...] on filedocumented in this encounter Care Teams Solderer Production Line Relationship Specialty Start Date End Date Yoni Ramírez MD [address] [place] [address] PCP - General 07/05/10 documented as of this encounter
--- OUTSIDE RECORDS SUMMARY | 2024-07-31 18:44 | XMS_ITS | Encounter Summary ---
[place] [address] Care Team Providers Care Rn Integrated Name Role Phone Yoni Ramírez MD Primary Care Provider Reason for Referral * Diagnostic Test (Routine) - Closed Specialty Diagnoses / Procedures Referred By Contac t Referred To Contact Radiology Diagnoses Malignant neoplasm of prostate Procedures NM PET CT PSMA Prostate (Pylarify) Deyvi Ibrahim MD [facility] [address] [place] [address] [place] [address] Referral ID Status Reason Start Date Expiration Date V isits Requested Visits Authorized [id number] Closed Specialty Service Requested 11/30/2021 06/01/2023 1 1 Encounter Details Date Type Department Care Team (Late st Contact Info) Description 11/30/2021 Orders Only [place]ematology [place] [address] Deyvi Ibrahim MD [facility] [place] [address] Malignant neoplasm of prostate (Primary Dx) Social History Tobacco Use Types [...] AM EST Office Visit Hematology/Oncolog y at [address] [phone] Deyvi Ibrahim MD [facility] [address] [place] [address] Isabel Berry APRN [facility] [place] [address] 08/05/2024 12:00 PM EST Infusion Hematology Oncology at [address] [phone] 08/27/2024 10:00 AM EST Hospital Encounter [place] [phone] Gulshan Elder MD [facility] [place] [address] 08/27/2024 10:00 AM EST Anesthesia [place] [phone] Swati Gonzalez MD [facility] [place] [address] 08/27/2024 10:00 AM EST - 08/27/2024 11:00 AM EST [place] [phone] Gulshan Elder MD [facility] [place] [address] EGD, UPPER GI ENDOSCOPY (WRVU 2.09) Scheduled [...] documented as of this encounter Results * NM PET CT PSMA Prostate (Pylarify) (12/19/2021 1:30 PM EDT) Anatomical Region Laterality Modality Positron Emissio n Tomography (PET) Impressions 12/19/2021 4:13 PM EDT 1. ??Abnormal tracer uptake involving the majority of the prostate gland extending to the seminal vesicles and on the right side appears to extend into the mesorectal space. 2. ??Subcentimeter tracer avid lymph nodes in the left obturator and left internal iliac regions and in the bilateral external iliac regions, consistent with rufina metastases. 3. ??No distant sites of metastasis. Thank you for referring this patient to [facility]. I have personally reviewed the image(s) and the resident's interpretation and agree with the findings, Tyrone Lewis MD at 12/19/2021 4:13 PM Thank you for letting us participate in the care of this patient. ??If you are a health care provider and have any questions regarding this report, please contact the number below. ??For patients who have questions please contact the health rn progressive care that requested your imaging first. ? Electronically signed by: Tyrone Lewis MD, [facility] ([phone]), at 12/19/2021 4:13 PM Narrative 12/19/2021 4:13 PM EDT EXAMINATION: NM PET CT PSMA PROSTATE (PYLARIFY) CLINICAL HISTORY: Prostate cancer, restaging staging of high risk prostate cancer TECHNIQUE: Following IV injection of Piflufolastat (F-18 PSMA) and a standard uptake of approximately 60 minutes, a noncontrast CT scan followed by a PET scan were acquired from the base of the skull to mid thighs. The noncontrast CT was used for anatomic localization and photon attenuation correction of the PET scan. Piflufolastat (F-18 PSMA) Dose: 10.4 mCi COMPARISON: MRI pelvis 10/27/2021 FINDINGS: HEAD/NECK: Normal activity in all soft tissue regions of the neck and visualized lower head. Physiologic activity present in the lacrimal and salivary glands. CHEST: Normal activity in all soft tissue regions. Small calcified granuloma in the left lower lobe as well as small calcified lymph nodes in the left hilar, left paratracheal and subcarinal regions consistent with prior granulomatous disease. ABDOMEN/PELVIS: Abnormal heterogeneously increased tracer uptake throughout the majority of the prostate gland and extends into the seminal vesicles, and on the right side appears to extend into the mesorectal space (axial images 289-293). Subcentimeter tracer avid lymph nodes in the left obturator (axial image 293) left internal iliac (axial image 282), and bilateral external iliac regions (axial images 271 and 281 on the right side and 275 on the left side). Physiologic activity is present in the celiac ganglia (axial images 194 and 197), liver, spleen, collecting system, and GI tract. Status post cholecystectomy. SKELETON/EXTREMITIES: Normal activity in all regions of the axial and visualized appendicular skeleton. Procedure Note Tyrone Lewis MD - 12/19/2021 EXAMINATION: NM PET CT PSMA PROSTATE (PYLARIY) CLINICAL HISTORY: Prostate cancer, restaging staging of high risk prostate cancer TECHNIQUE: Following IV injection of Piflufolastat (F-18 PSMA) and astandard uptake of approximately 60 minutes, a noncontrast CT scan followed by aPET scan were acquired from the base of the skull to mid thighs. The noncontrast CTwas used for anatomic localization and photon attenuation correction of thePET scan. Piflufolastat (F-18 PSMA) Dose: 10.4 mCi COMPARISON: MRI pelvis 10/27/2021 FINDINGS: HEAD/NECK: Normal activity in all soft tissue regions of the neck and visualizedlower head. Physiologic activity present in the lacrimal and salivary glands. CHEST: Normal activity in all soft tissue regions. Small calcified granuloma in the left lower lobe as well as smallcalcified lymph nodes in the left hilar, left paratracheal and subcarinal regions consistent with prior granulomatous disease. ABDOMEN/PELVIS: Abnormal heterogeneously increased tracer uptake throughout the majorityof the prostate gland and extends into the seminal vesicles, and on the rightside appears to extend into the mesorectal space (axial images 289-293). Subcentimeter tracer avid lymph nodes in the left obturator (axial [id number]) left internal iliac (axial image 282), and bilateral external iliacregions (axial images 271 and 281 on the right side and 275 on the left side). Physiologic activity is present in the celiac ganglia (axial images 194and 197), liver, spleen, collecting system, and GI tract. Status post cholecystectomy. SKELETON/EXTREMITIES: Normal activity in all regions of the axial and visualized appendicular skeleton. IMPRESSION 1. Abnormal tracer uptake involving the majority of the prostate gland extending to the seminal vesicles and on the right side appears to extendinto the mesorectal space. 2. Subcentimeter tracer avid lymph nodes in the left obturator and left internal iliac regions and in the bilateral external iliac regions,consistent with rufina metastases. 3. No distant sites of metastasis. Thank you for referring this patient to [facility]. I have personally reviewed the image(s) and the resident's interpretationand agree with the findings, Tyrone Lewis MD at 12/19/2021 4:13 PM Thank you for letting us participate in the care of this patient. If youare a health care provider and have any questions regarding this report,please contact the number below. For patients who have questions please contactthe health rn progressive care that requested your imaging first. Deyvi Ibrahim MD IMG PET ORDERABLES documented in this encounter Visit Diagnoses Diagnosis Malignant neoplasm of prostate- Primary Malignant neoplasm of prostate Abnormal CT of the abdomen Nonspecific (abnormal) findings on radiological and other examination of abdominal area, including retroperitoneum Esophagitis Esophagitis, unspecified Gastroesophageal reflux disease with esophagitis, unspecified whether hemorrhage Colitis Other and unspecified noninfectious gastroenteritis and colitis Screen for colon cancer Special screening for malignant neoplasms, colon documented in this encounter Care Teams Rn Integrated Relationship Specialty Start Date End Date Yoni Ramírez MD [address] [place] [id number] PCP - General 07/05/10 documented as of this encounter
--- OUTSIDE RECORDS SUMMARY | 2024-07-31 18:44 | XMS_ITS | Encounter Summary ---
Author Organization [facility] [place] [address] Care Team Providers Care Fleet Maintenance Manager Name Role Phone Yoni Ramírez MD Primary Care Provider [phone] Encounter Details Date Type Department Care Team (Late st Contact Info) Description 11/03/2021 Telephone Hematology/Oncology at [address] [phone] Getachew Rangel Social History Tobacco Use Types Packs/Day Years [...] encounter Miscellaneous Notes * Telephone Encounter - Getachew Rangel - 11/03/2021 11:51 AM EDT I called [employer] to do a prior auth for this pt for NM Body scan and a c/a/p CT. Corinne could not find them in their system and told me to call [phone] to speak with the insurance plan. I spoke to Allison and she stated that there is no auth required for either of these scans. Reference #[id number] documented in this encounter Plan of Treatment Upcoming Encounters Date Type Department Care Team (Latest Contact Info) Description 08/05/2024 11:30 AM EST Office Visit Hematology/Oncolog y at [address] [phone] Deyvi Ibrahim MD [facility] DR [place] [address] Isabel Berry APRN [facility] [place] [address] 08/05/2024 12:00 PM EST Infusion Hematology Oncology at [address] [phone] 08/27/2024 10:00 AM EST Hospital Encounter [place] [address] Gulshan Elder MD [facility] [place] [address] 08/27/2024 10:00 AM EST Anesthesia Event [place] [address] Swati Gonzalez MD [facility] [place] [address] 08/27/2024 10:00 AM EST - 08/27/2024 11:00 AM EST Surgery [place] [phone] Gulshan Elder MD [facility] [place] [address] EGD, UPPER GI ENDOSCOPY (WRVU 2.09) Scheduled [...] on filedocumented in this encounter Care Teams Fleet Maintenance Manager Relationship Specialty Start Date End Date Yoni Ramírez MD [address] [place] [id number] PCP - General 07/05/10 documented as of this encounter
--- OUTSIDE RECORDS SUMMARY | 2024-07-31 18:44 | XMS_ITS | Encounter Summary ---
Author Organization [facility] [place] [address] Care Team Providers Care Accountant Bookkeeper Name Role Phone Yoni Ramírez MD Primary Care Provider Encounter Details Date Type Department Care Team (Late st Contact Info) Description 09/28/2021 Telephone Urology at [facility] [address] [place] [phone] Ino Enamorado MD [facility] [place] [address] Social History Tobacco Use Types Packs/Day Years [...] Telephone Encounter - Jaimie Naranjo - 09/28/2021 4:20 PM EST Spk w/ pt on phone, and emailed [facility] for surgery on 10/20. PT has an appointment on 10/12 for a FUV, he is wondering if this can be a TOV as he [place]. Thank you Jaimie documented in this encounter Plan of Treatment Upcoming Encounters Date Type Department Care Team (Latest Contact Info) Description 08/05/2024 11:30 AM EST Office Visit Hematology/Oncolog y at [address] [phone] Deyvi Ibrahim MD [facility] [place] [address] Isabel Berry APRN [facility] [place] [address] 08/05/2024 12:00 PM EST Infusion Hematology Oncology at [address] [phone] 08/27/2024 10:00 AM EST Hospital Encounter [place] [phone] Gulshan Elder MD [facility] [address] 08/27/2024 10:00 AM EST Anesthesia [place] [phone] Swati Gonzalez MD [facility] [place] [address] 08/27/2024 10:00 AM EST - 08/27/2024 11:00 AM EST [place] [phone] Gulshan Elder MD [facility] [place] [address] EGD, UPPER GI ENDOSCOPY (WRVU 2.09) Scheduled [...] on filedocumented in this encounter Care Teams Accountant Bookkeeper Relationship Specialty Start Date End Date Yoni Ramírez MD [address] [place] [phone] PCP - General 07/05/10 documented as of this encounter
--- OUTSIDE RECORDS SUMMARY | 2024-07-31 18:44 | XMS_ITS | Encounter Summary ---
[place] [address] Care Team Providers Care Supervisor Properties Name Role Phone Yoni Ramírez MD Primary Care Provider Reason for Referral * Diagnostic Test (Routine) - Closed Specialty Diagnoses / Procedures Referred By Contac t Referred To Contact Radiology Diagnoses Malignant neoplasm of prostate Procedures NM PET CT PSMA Prostate (Pylarify) Deyvi Ibrahim MD [facility] DR HEMATOLOGY [place] [address] [place] [address] Referral ID Status Reason Start Date Expiration Date V isits Requested Visits Authorized [id number] Closed Specialty Service Requested 11/30/2021 06/01/2023 1 1 Reason for Visit * Diagnostic Test (Routine) - Closed Specialty Diagnoses / Procedures Referred By Contac t Referred To Contact Radiology Diagnoses Malignant neoplasm of prostate Procedures NM PET CT PSMA Prostate (Pylarifsteff) Deyvi Ibrahim MD [facility] DR HEMATOLOGY [place] [address] [place] [address] Referral ID Status Reason Start Date Expiration Date V isits Requested Visits Authorized [id number] Closed Specialty Service Requested 11/30/2021 06/01/2023 1 1 Encounter Details Date Type Department Care Team (Latest Contact Info) Description 12/19/2021 11:45 AM EDT Hospital Encounter Nuclear Medicine at [facility] [place] [address] Deyvi Ibrahim MD [facility] DR HEMATOLOGY [place] [address] Malignant neoplasm of prostate Discharge Disposition: Home [...] daily as needed. naloxone (Narcan) 4 mg/actuation [place], Non-Aerosol Narcan 4 mg/actuation nasal spray Take [...] EST Office Visit Hematology/Oncolog y at [address] [phone] Deyvi Ibrahim MD [facility] DR HEMATOLOGY [place] [address] Isabel Berry APRN [facility] [place] [address] 08/05/2024 12:00 PM EST Infusion Hematology Oncology at [address] [phone] 08/27/2024 10:00 AM EST Hospital Encounter [place] [phone] Gulshan Elder MD [facility] DR [place] [address] 08/27/2024 10:00 AM EST Anesthesia [place] [phone] Swati Gonzalez MD [facility] ANESTHESIOLOGY [place] [address] 08/27/2024 10:00 AM EST - 08/27/2024 11:00 AM EST [place] [address] Gulshan Elder MD [facility] DR [place] [address] EGD, UPPER GI ENDOSCOPY (WRVU 2.09) Scheduled [...] Procedure Name Priority Date/Time Associated Diagnosis Comments NM PET CT PSMA PROSTATE (PYLARIFY) Routine 12/19/2021 1:30 PM EDT Malignant neoplasm of prostate documented in this encounter Results * NM PET CT [...] Thank you for referring this patient to [facility]. I have personally reviewed the [...] who have questions please contact the health home care provider that requested your imaging first. ? Electronically signed by: Tyrone Lewis MD, [facility] ([phone]), at 12/19/2021 4:13 PM Narrative 12/19/2021 4:13 PM EDT EXAMINATION: NM PET CT PSMA PROSTATE (MAKSteff) CLINICAL HISTORY: Prostate cancer, restaging staging of [...] 12/19/2021 EXAMINATION: NM PET CT PSMA PROSTATE (PYLARIFY) [...] lymph nodes in the left obturator (axial ) left internal iliac (axial image 282), and [...] Thank you for referring this patient to [facility]. I have personally reviewed the image(s) and the resident's interpretationand agree with the findings, Tyrone Lewis MD at 12/19/2021 4:13 PM Thank you for letting us participate in the care of this patient. If youare a health care provider and have any questions regarding this report,please contact the number below. For patients who have questions please contactthe health home care provider that requested your imaging first. Electronically signed by: Tyrone Lewis MD, [facility]([phone]), at 12/19/2021 4:13 PM Deyvi Ibrahim MD IMG PET ORDERABLES documented [...] MAR Action Action Date Dose Rate Site piflufolastat (F-18) injection 5-10 mCi 5-10 mCi, Intravenous, ONCE PRN, 1 dose, Starting on Sun12/19/21 at 1220, Until Sun12/19/21 at 1215, Per Protocol, Radiology Contrast, Routine Given 12/19/2021 12:15 PM EDT 10.4 mCi Right Arm documented in this encounter Care Teams Supervisor Properties Relationship Specialty Start Date End Date Yoni Ramírez MD [address] [place] [id number] PCP - General 07/05/10 documented as of this encounter
--- OUTSIDE RECORDS SUMMARY | 2024-07-31 18:44 | XMS_ITS | Encounter Summary ---
[place] [address] Care Team Providers Care Boat Engines Installer Name Role Phone Yoni Ramríez MD Primary Care Provider [phone] Reason for Visit * Diagnostic Test (Routine) - Closed Specialty Diagnoses / Procedures Referred By Contac t Referred To Contact Radiology Diagnoses Malignant neoplasm of prostate Procedures NM PET CT PSMA Prostate (Pylarify) Deyvi Ibrahim MD [facility] DR [place] [address] [place] [address] Referral ID Status Reason Start Date Expiration Date V isits Requested Visits Authorized [id number] Closed Specialty Service Requested 11/30/2021 06/01/2023 1 1 Encounter Details Date Type Department Care Team (Latest Contact Info) Description 12/19/2021 11:46 AM EDT - 12/19/2021 11:59 PM EDT Hospital Encounter [place] [address] Deyvi Ibrahim MD [facility] [place] [address] Discharge Disposition: Home Social History Tobacco Use [...] slept in a half-way (including now)? No 10/26/2021 Sex and Gender [...] daily as needed. naloxone (Narcan) 4 mg/actuation [place], Non-Aerosol Narcan 4 mg/actuation nasal spray [...] EST Office Visit Hematology/Oncolog y at [address] [phone] Deyvi Ibrahim MD [facility] [place] [address] Isabel Berry APRN [facility] [address] 08/05/2024 12:00 PM EST Infusion Hematology Oncology at [address] [phone] 08/27/2024 10:00 AM EST Hospital Encounter [place] [phone] Gulshan Elder MD [facility] [place] [address] 08/27/2024 10:00 AM EST Anesthesia Event [place] [phone] Swati Gonzalez MD [facility] [place] [address] 08/27/2024 10:00 AM EST - 08/27/2024 11:00 AM EST Surgery [place] [phone] Gulshan Elder MD [facility] [place] [address] EGD, UPPER GI ENDOSCOPY (WRVU 2.09) Scheduled [...] Thank you for referring this patient to [facility]. I have personally reviewed the [...] have questions please contact the health career agent that requested your imaging first. ? Narrative 12/19/2021 4:13 PM EDT EXAMINATION: NM [...] Thank you for referring this patient to [facility]. I have personally reviewed the image(s) and the resident's interpretationand agree with the findings, Tyrone Lewis MD at 12/19/2021 4:13 PM Thank you for letting us participate in the care of this patient. If youare a health care provider and have any questions regarding this report,please contact the number below. For patients who have questions please contactthe health career agent that requested your imaging first. Deyvi Ibrahim MD IMG PET ORDERABLES documented in this encounter Visit Diagnoses Not on filedocumented in this encounter Care Teams Boat Engines Installer Relationship Specialty Start Date End Date Yoni Ramírez MD [address] [place] [id number] PCP - General 07/05/10 documented as of this encounter
--- OUTSIDE RECORDS SUMMARY | 2024-07-31 18:45 | XMS_ITS | Encounter Summary ---
Author Organization Formerly [facility] Address [facility] [place] [address] Care Team Providers Care Baffle Mounter Name Role Phone Yoni Ramírez MD Primary Care Provider [phone] Reason for Visit * Reason Comments Establish Care * Consultation (Routine) - Closed Specialty Diagnoses / Procedures Referred By Contsahil t Referred To Contact General Surgery Diagnoses Primary hyperparathyroidism Mar Lozada MD [facility] [place] [address] Karishma Maurer MD [facility] [place] [address] Referral ID Status Reason Start Date Expiration Date V isits Requested Visits Authorized [id number] Closed Consult, Test & Treat 02/21/2017 02/21/2018 1 1 Encounter Details Date Type Department Care Team (Latest Contact Info) Description 05/21/2017 1:00 PM EDT Office [place] [address] Karishma Maurer MD [facility] [place] [address] Elevated calcitonin level; Enlarged lymph nodes; Medullary thyroid carcinoma; Thyroid nodule; Elevated carcinoembryonic antigen ; Hyperparathyroidism, primary Social History Tobacco Use Types Packs/Day Years [...] Sign Reading Time Taken Comments Blood Pressure 146/87 05/21/2017 1:09 PM EDT Pulse 85 05/21/2017 1:09 PM EDT Temperature - - Respiratory Rate - - Oxygen Saturation 100% 05/21/2017 1:02 PM EDT Inhaled Oxygen Concentration - - Weight 99.3 kg (219 lb) 05/21/2017 1:02 PM EDT Height 177.8 cm (5' 10) 05/21/2017 1:02 PM EDT Body Mass Index 31.42 05/21/2017 1:02 PM EDT documented in this encounter Progress Notes * Karishma Maurer MD - 05/21/2017 1:00 PM EDT Images from the original note were not included. Endocrine Surgery Initial Consultation HPI: Mr. Jeff Arreguin is a very pleasant 51 y.o. year old male who presents for evaluation of primary hyperparathyroidism as a referral from Dr. Lozada. His hypercalcemia was initially detected on labs done in the setting of hospitalization for dehydration and abdominal pain. Mr. Arreguin's medical history is remarkable for frequent emergency room visits and hospitalizations over the past 10 years or so for this recurrent abdominal pain. He describes the pain feeling like he has dysentery without the diarrhea. He says he often awakens in the morning due to the abdominal pain and it is associated with severe nausea and vomiting. He says he ends up needing to go to the hospital for rehydration every couple of months. Earlier this spring, during one of these hospitalizations, he was found to have an elevated calcium level of 13.9 and a concurrent PTH of 243. After that, he had a thyroid ultrasound in January 2017 that reported a hypoechoic mass on the right measuring 2.2 x 1.0 x 1.1 cm and a 1.2 x 0.6 x 0.6 cm mass on the left side. This was interpreted as bilateral parathyroid adenomas. He hasnot had a sestamibi scan. There is no history of nephrolithiasis. He does not have a history of osteoporosis. He has not had a recent DEXA scan. There is not a recent history of fractures. He reportssymptoms of hyperparathyroidism including fatigue (which he attributes to insomnia), decreased energy levels, polyuria and nocturia every 1-2 hours, occasional constipation,and joint and muscle aches. Because of the combination of hyperparathyroidism and abdominal complaints, there was some concern for MEN syndromes. He had a 24-hour urine collection for metanephrines and normetanephrines, which was negative. He also had a calcitonin checked, which was elevated at 22pg/mL. He has not had a CEA measured. He has had a recent (within the past two years) colonoscopy, which by patient report was normal. Per the notes, he has also had a CT of the chest, which showed a lung nodule, but I have no furtherinformation about this. There is no history of previous anterior neck surgery. He has no family history of endocrinopathies, hypercalcemia or endocrine malignancy. He presents today for consideration of surgical management of his hyperparathyroidism. Recent labs: Serum calcium 10.6 mg/dL PTH 138 pg/mL Vitamin D N/A ng/mL Ionized calcium N/A mmol/L Phosphorus N/A mg/dL 24 hr urine calcium N/A mg/24hr Recent studies: Recent DEXA scan: not done Sestamibi scan: not done Cervical ultrasound done at [facility] on January 25, 2017. This reports a 2.2 x 1.0 x 1.1cm ovoid, somewhat heterogeneously hypoechoic mass along the posterior aspect of the right lobe of the thyroid. They comment that the appearance is highly suspicious for parathyroid adenoma. On the left side, they describe a similar appearing hypoechoic mass measuring 1.2 x 0.6 x 0.6 cm along the inferior aspect of the left lobe of the thyroid likely representing a smaller left inferior parathyroid adenoma. Past Medical History: Diagnosis Date ??? Arthritis ??? Hypertension Past Surgical History: Procedure Laterality Date ??? CHOLECYSTECTOMY, LAPAROSCOPIC ??? FOOT SURGERY left ??? PRO ERCP,DIAGNOSTIC 08/22/2013 ERCP performed by Duane Garcia MD at [facility] ENDOSCOPY ??? TONSILLECTOMY Current Outpatient Prescriptions on File Prior to Visit Medication Sig Dispense Refill ??? lisinopril (PRINIVIL;ZESTRIL) 10 mg Tablet Take 10 mg by mouth daily. No current facility-administered medications on file prior to visit. Allergies as of 05/21/2017 - Review Complete 02/21/2017 Allergen Reaction Noted ??? Ephedrine Anxiety 08/22/2013 ??? Lexapro [escitalopram] 07/24/2013 Family History: Father of heart disease and diabetes. He states the weak heart run on his father's side. His mother and his sister have survived some sort of female cancer and 3 or 4 maternal aunts have of similar female cancer.. He states that this has included both breast and other female organ cancer. No thyroid cancer. No pituitary, pancreas or adrenal tumors. No parathyroiddisease. Social History: He is disabled due to the abdominal pain and the resultant frequent absences from work. 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 He smoked 2 packs a day for approximately 28 years but quit 5 years ago at age 46. He denies alcohol or any illicit drug use. No professional public speaking or singing Review of Systems: Negative/Normal Positive/Abnormal Energy Level [] Fatigue, malaise Fever [x] Appetite [x] Weight Loss/Gain [x] ENT [x] Cardiovascular [x] Respiratory [x] Gastrointestinal [] As per HPI Bleeding [x] Bruising [x] Genitourinary [] Nocturnal frequency Musculoskeletal [] Some myalgias/muscle cramping Endocrine [x] Neuro [x] Psych [] some decreased mental sharpness Encounter Vitals: BP 146/87 Pulse 85 Ht 177.8 cm (5' 10) Wt 99.3 kg (219 lb) SpO2 100% BMI 31.42 kg/m2 Physical Exam: System Normal Abnl Findings General [x] [] Well nourished, appears well Skin [x] [] Warm and dry Neck [x] [] No thyromegaly, no masses, trachea midline Lymph Nodes [x] [] No cervical lymphadenopathy Lungs [x] [] Normal respiratory effort, clear to auscultation bilaterally Cardiovascular [x] [] Regular rate and rhythm, no murmurs Extremities [x] [] Warm, no edema, full ROM Neuro [x] [] Motor intact, voice normal Psych [x] [] Normal mood and affect; responds to questions appropriately Procedures performed this visit: Thyroid, Parathyroid and Cervical Ultrasound I performed a thyroid, parathyroid and cervical ultrasound at the time of the clinic visit today using the 12 mHz linear ultrasound transducer. The thyroid, parathyroid and central and bilateral lateral neck lymph node basins were evaluated. The findings include: Thyroid Isthmus: Thickness: 0.46 cm Nodules: None Right lobe: Lobe: 5.04 x 1.95 x 1.94 cm Nodules: none Left lobe: Lobe: 5.22 x 1.91 x 2.18 cm Nodules: none Posterior to the right lobe of the thyroid is a hypoechoic nodule measuring 2.22 x 1.01 x 1.16cm with the classic ultrasound appearance of a parathyroid adenoma Posterior and inferior to the left lobe of the thyroid, there is another hypoechoic structure that is rounded and may contain calcifications. This measures 0.92 x 0.76 x 0.83cm and I think may be a central neck lymph node rather than a parathyroid adenoma Cervical lymph nodes Central neck: see above. No other central neck lymph nodes visualized Right lateral neck: Normal ultrasonographic appearing lymph nodes Left lateral neck: Normal ultrasonographic appearing lymph nodes Labs: In addition to above: TSH 1.08 Calcitonin 22 24 hour urine metanephrines (total volume 975mL)--all normal Metanephrines 130mcg Normetanephrines 373mcg Total metanephrines 503mcg Epinephrine 6.4 Dopamine 171 Assessment and Plan: Mr. Jeff Arreguin is a 51 y.o. year old male with symptomatic biochemical primary hyperparathyroidism and a long history of abdominal pain. Localizing ultrasound identifies two hypoechoic structures in the central neck. By radiology report, this was interpreted as bilateral parathyroid abnormalities. However, on my interpretation today, I think the right-sided structure looks like a parathyroid adenoma, but the left-sided structure is more suspicious for a pathologic central neck node. This is particularly difficult to interpret in the context of the elevated calcitonin. Mr. Arreguin does not have any measurable thyroid nodules, but microMTC and neoplastic C-cell hyperplasia has been described to metastasize to cervical lymph nodes. I ordered a CEA today to complete the serum workup for medullary thyroid cancer. I will likely try to arrange an FNA of the central neck node with calcitonin washout, but would like first to discuss Mr. Arreguin's case at the endocrine tumor board which meets later this week. I also considered getting a sestamibi scan, but I am not sure whether a metastatic node would also display increased sestamibi activity. I do not think a CT scan or MRI would help me sort out the identity of each mass. With regard to the primary hyperparathyroidism, we discussed the typical work up and management. Considered in isolation, I recommended minimally invasive parathyroidectomy with intraoperative parathyroid hormone monitoring. If IOPTH levels do not decrease appropriately, we will proceed with a bilateral exploration. I discussed the risks of parathyroidectomy with the patient including, but not limited to, nerve injury resulting in voice changes or hoarseness of voice, low calcium related to removal of parathyroid tissue, bleeding which may require reoperation, infection and complications related to anesthesia. He confirmed understanding, and understands that the plan might change if he turns out to have medullary thyroid cancer. I will follow up on the repeat calcitonin and CEA level, will attempt to obtain the outside hospital CT chest/abdomen/pelvis, and will present his case at tumor board later this week. After I have all this information, I will follow up with the patient. documented in this encounter Plan of Treatment Upcoming Encounters Date Type Department Care Team (Latest Contact Info) Description 08/05/2024 11:30 AM EST Office Visit Hematology/Oncolog y at [address] [phone] Deyvi Ibrahim MD [facility] [place] [address] Isabel Berry APRN [facility] [place] [address] 08/05/2024 12:00 PM EST Infusion Hematology Oncology at [address] [phone] 08/27/2024 10:00 AM EST Hospital En[place] [address] Gulshan Elder MD [facility] [address] 08/27/2024 10:00 AM EST Anesthesia [place] [address] Swati Gonzalez MD [facility] [place] [address] 08/27/2024 10:00 AM EST - 08/27/2024 11:00 AM EST [place] [address] Gulshan Elder MD [facility] [place] [address] EGD, UPPER GI ENDOSCOPY (WRVU 2.09) Scheduled [...] Procedure Name Priority Date/Time Associated Diagnosis Comments CALCITONIN Routine 05/21/2017 2:12 PM EDT Elevated calcitonin level TSH Routine 05/21/2017 2:12 PM EDT Medullary thyroid carcinoma CEA Routine 05/21/2017 2:12 PM EDT Elevated carcinoembryonic antigen Thyroid nodule documented in this encounter Results * TSH (05/21/2017 2:12 PM EDT) Thyroid Stimulating Hormone 1.08 0.27 - 4.20 mlU/ML [facility] Blood specimen (specimen) 05/21/2017 2:12 PM EDT 05/21/2017 2:39 PM EDT Narrative Resulting Agency Comment Spec In Lab Karishma Maurer MD CHEMISTRY ORDERAB LES [facility] [place] [place] [address] * (ABNORMAL) Calcitonin (05/21/2017 2:12 PM EDT) Calcitonin Lvl (QST) 36(H) <=10 pg/mL [facility] Comment: This test was performed using the Siemens (DPC) Chemiluminescent method. Values obtained with different assay methods cannot be used interchangeably. Calcitonin levels, regardless of value, should not be interpreted as absolute evidence of the presence or absence of the disease. Test [facility] by [facility], [facility], [address] [place] [id number] Jason Fox M.D., Ph.D., Director of Laboratories , [place] [id number] Blood specimen (specimen) 05/21/2017 2:12 PM EDT 05/22/2017 8:53 AM EDT Narrative Resulting Agency Comment Spec In Lab Karishma Maurer MD LAB SEND OUT USHAJamarcus BECCA Performing Organization Address [facility] Co de Phone Number [facility] [place] [address] * (ABNORMAL) CEA (05/21/2017 2:12 PM EDT) Carcinoembryonic Antigen 7.1(H) <=3.8 ng/mL [facility] Comment: Reference range: ??(20-69 years): Non-smoker: ??less than or equal to 3.8 ng/mL Smoker: ??less than 5.5 ng/ml Blood specimen (specimen) 05/21/2017 2:12 PM EDT 05/21/2017 2:38 PM EDT Narrative Resulting Agency Comment Spec In Lab Karishma Maurer MD CHEMISTRY ORDERAB LES Performing Organization Address [facility] Co de Phone Number [facility] [place] [place] [address] documented in this encounter Visit Diagnoses Diagnosis Elevated calcitonin level Enlarged lymph nodes Enlargement of lymph nodes Medullary thyroid carcinoma Malignant neoplasm of thyroid gland Thyroid nodule Nontoxic uninodular goiter Elevated carcinoembryonic antigen Elevated carcinoembryonic antigen [CEA] Hyperparathyroidism, primary Primary hyperparathyroidism Abnormal CT of the abdomen Nonspecific (abnormal) findings on radiological and other examination of abdominal area, including retroperitoneum Esophagitis Esophagitis, unspecified Gastroesophageal reflux disease with esophagitis, unspecified whether hemorrhage Colitis Other and unspecified noninfectious gastroenteritis and colitis Screen for colon cancer Special screening for malignant neoplasms, colon documented in this encounter Care Teams Baffle Mounter Relationship Specialty Start Date End Date Yoni Ramírez MD [address] [place] [id number] PCP - General 07/05/10 documented as of this encounter
--- OUTSIDE RECORDS SUMMARY | 2024-07-31 18:45 | XMS_ITS | Encounter Summary ---
Author Organization [facility] [place] [address] Care Team Providers Care Named Account Executive Name Role Phone Yoni Ramírez MD Primary Care Provider [phone] Encounter Details Date Type Department Care Team (Late st Contact Info) Description 09/08/2017 Telephone [place] [phone] Chris Zepeda Social History Tobacco Use Types Packs/Day Years [...] encounter Miscellaneous Notes * Telephone Encounter - Chris Zepeda MD - 09/08/2017 8:08 PM EST This morning experienced diarrhea, nausea, bilious vomit x3, numbness of feet, hands, fingertips and lips. Those symptoms have gotten better since taking his Ca supplements today (so far, 1200 mg taken) but not resolved. No longer has diarrhea, nausea or emesis but still has tingling of lips, hands, feet and fingertips. Has been able to tolerate pea soup only since taking his AM supplements. Denies fevers. After discussion with Dr. Maurer we will advise the patient to increase his Ca supplementation to four times per day. I will call the patient back and let him know this recommendation. Ifsx persist tomorrow will recommend the patient get his Ca levels checked Chris Zepeda MD 09/08/17 Addendum: Called patient back 5 times without response documented in this encounter Plan of Treatment Upcoming Encounters Date Type Department Care Team (Latest Contact Info) Description 08/05/2024 11:30 AM EST Office Visit Hematology/Oncolog y at [address] [phone] Deyvi Ibrahim MD [facility] [address] HEMATOLOGY [place] [address] Isabel Berry APRN [facility] [place] [address] 08/05/2024 12:00 PM EST Infusion Hematology Oncology at [address] [phone] 08/27/2024 10:00 AM EST Hospital En[place] [phone] Gulshan Elder MD [facility] [place] [address] 08/27/2024 10:00 AM EST Anesthesia [place] [phone] Swati Gonzalez MD [facility] [address] [place] [address] 08/27/2024 10:00 AM EST - 08/27/2024 11:00 AM EST [place] [phone] Gulshan Elder MD [facility] [place] [address] EGD, UPPER GI ENDOSCOPY (WRVU 2.09) Scheduled [...] on filedocumented in this encounter Care Teams Named Account Executive Relationship Specialty Start Date End Date Yoni Ramírez MD [address] [place] [id number] PCP - General 07/05/10 documented as of this encounter
--- OUTSIDE RECORDS SUMMARY | 2024-07-31 18:45 | XMS_ITS | Encounter Summary ---
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 Role Phone Yoni Ramírez MD Primary Care Provider [phone] Reason for Visit * Auth/Cert Specialty Diagnoses / Procedures Referred By Contac t Referred To Contact Diagnoses Hyperparathyroidism HPT Procedures PRO EXPLORE PARATHYROID GLANDS PRG EMG, LARYNX PARATHYROIDECTOMY OR EXPLORATION OF PARATHYROID(S) (WRVU 15.6) FACIAL NERVE MONITORING, SETUP LARYNGEAL (WRVU 1.57) Referral ID Status Reason Start Date Expiration Date Visits Re quested Visits Authorized [id number] 1 1 Encounter Details Date Type Department Care Team (Late st Contact Info) Description 09/04/2017 1:10 PM EST - 09/04/2017 4:03 PM EST Surgery Main [place] [address] Yanet Trujillo MD [facility] [place] [address] PARATHYROIDECTOMY OR EXPLORATION OF PARATHYROID(S) (WRVU 15.6) Social History Tobacco Use Types Packs/Day Years [...] Sign Reading Time Taken Comments Blood Pressure 214/102 09/04/2017 12:29 PM EST Pulse 51 09/04/2017 12:29 PM EST Temperature 36.3 ??C (97.3 ??F) 09/04/2017 12:[address] Respiratory Rate 20 09/04/2017 12:29 PM EST Oxygen Saturation 100% 09/04/2017 12:29 PM EST Inhaled Oxygen Concentration - - Weight 98.2 kg (216 lb 6.4 oz) 09/04/2017 12:29 PM EST Height 177.8 cm (5' 10) 09/04/2017 12:29 PM EST Body Mass Index 31.05 09/04/2017 12:29 PM EST documented in this encounter Discharge Summaries * Tracy Felipe, MODEL AND DYE PERSON - 09/05/2017 8:27 AM EST General Surgery Inpatient - Discharge Summary Patient Name: Jeff Arreguin Patient Age: 52 y.o. Birthdate: 1965 Admit date: 09/04/2017 Discharge date: 09/05/17 Admitting Physician: Yanet Trujillo MD Primary Diagnosis: Hyperparathyroidism Active Non-Hospital Problems Diagnosis ??? Chronic prescription opiate use ??? Obesity (BMI 30.0-34.9) ??? Hypertension ??? OA (osteoarthritis) ??? S/P cholecystectomy ? ? Nausea & vomiting ??? Leukocytosis HPI: Obtained from Dr. Yanet Trujillo's Office Visit Note dated 05/21/17. Mr. Jeff Arreguin is a very pleasant 51 y.o. year old male who presents for evaluation of primary hyperparathyroidism as a referral from Dr. Lozada. His hypercalcemia was initially detected on labs done in the setting of hospitalization for dehydration and abdominal pain. Mr. Arreguin's medical history is remarkable for frequent emergency room visits and hospitalizations over the past 10 years or sofor this recurrent abdominal pain. He describes the pain feeling like he has dysentery without thediarrhea. He says he often awakens in the morning due to the abdominal pain and it is associated with severe nausea and vomiting. He says he ends up needing to go to the hospital for rehydration every couple of months. Earlier this spring, during one of these hospitalizations, he was found to havean elevated calcium level of 13.9 and a concurrent PTH of 243. After that, he had a thyroid ultrasound in January 2017 that reported a hypoechoic mass on the right measuring 2.2 x 1.0 x 1.1 cm and a 1.2x 0.6 x 0.6 cm mass on the left side. This was interpreted as bilateral parathyroid adenomas. He has not had a sestamibi scan. There is no history of nephrolithiasis. He does not have a history of osteoporosis. He has not had a recent DEXA scan. There is not a recent history of fractures. He reports symptoms of hyperparathyroidism including fatigue (which he attributes to insomnia), decreased energy levels, polyuria and nocturia every 1-2 hours, occasional constipation,and joint and muscle aches. ?? Because of the combination of hyperparathyroidism and [...] colonoscopy, which by patient report was normal. ?? Per the notes, he has also had a CT of the chest, which showed a lung nodule, but I have no furtherinformation about this. ?? There is no history of previous anterior neck surgery. He has no family history of endocrinopathies, hypercalcemia or endocrine malignancy. He presents today for consideration of surgical management of his hyperparathyroidism. ?? Operations/Major Procedures: Operations: 09/04/2017 Surgeon(s) and Role: * Yanet Trujillo MD - Primary * Martinez Werner MD - Resident-Surgeon Chief: Procedure(s): PARATHYROIDECTOMY OR EXPLORATION OF PARATHYROID(S) (WRVU 15.6) FACIAL NERVE MONITORING, SETUP LARYNGEAL (WRVU 1.57) Operative Findings: markedly enlarged right upper parathyroid gland in normal anatomic position, but enlarged enough to extend laterally posterior to the carotid artery. Fibrotic attachments around the gland. Sent for frozen, consistent with parathyroid tissue. Right RLN signal intact. Reopened when IOPTH did not decrease appropriately. Rexploration eventually yielded a right lower parathyroid gland that was intrathymic and no candidate left-sided parathyroid glands. After a left central neck dissection and a left cervical thymectomy was done, a PTH level was sent and was consistent with biochemical cure. Dense, fibrotic soft tissue attachments and abnormally tenacious muscle, consistent wit h thyroiditis. IOPTH findings: Baseline: 855 pg/mL 10-min post-excision 215 pg/mL 15-min post-excision 174 pg/mL 1646 (reopening) 103 Pg/mL 1803 32 Pg/mL ?? Hospital Course: Jeff Arreguin was taken to the operating room where the above procedures were performed. He tolerated the operation well and without complication. He was admitted post-operatively forclinical monitoring and further management. The patient's hospital course was uncomplicated and he was deemed stable for discharge on post-operative day one. Important Studies and Lab Data: See below. Pathology: Final Surgical Pathology pending. Microbiology: None. Labs: Lab Results Component Value Date CALCIUM 9.3 09/05/2017 No results found for: WBC, HGB, HCT, PLATELET No results found for: NA, K, CL, CO2, BUN, CREATININE, GLUCOSE Pending Lab Data at Discharge: Final Surgical Pathology pending. Studies: None. Discharge Exam: Last value Range last 12 hrs Temperature Temp: 37.1 ??C (98.8 ??F) Temp: [37 ??C (98.6 ??F)-37.1 ??C (98.8 ??F)] Heart Rate Heart Rate: 64 Heart Rate: [64-74] Blood Pressure BP: 146/77 BP: (119-146)/(71-90) Respiratory Rate Resp: 18 Resp: [16-18] SpO2 SpO2: 97 % SpO2: [96 %-97 %] I/Os: I/O last 3 completed shifts: In: 2861 [P.O.:240; I.V.:2621] Out: 1150 [Urine:1100; Blood:50] Gen: NAD, alert & oriented x3, pain adequately controlled. Endo: Denies any vianca-oral or peripheral extremity numbness or tingling. Pulm: Faint crackles noted throughout - no wheezes, no SOB. IS encouraged - pt reaching 3000 on IS. Card: RRR, no CP. Abd: Hypoactive bowel sounds, - flatus, LBM 09/04 prior to surgery. Wound: Transverse anterior neck incision EDDIE with dermabond - mild soft swelling and light ecchymosis noted inferiorly to incision; incision is well-approximated and is without erythema or drainage. Ext: no edema, 2+ peripheral pulses Discharge Plans: Discharge to: Home VNA: No Discharge Conditions/Prognosis: Stable Discharge Medications: The following medications have been prescribed for you. If you notice any adverse reactions to your medications, please contact your primary care physician immediately or go tothe nearest Emergency Department. Your Medications New Medications Dose Details acetaminophen 500 mg Tab Commonly known as: TYLENOL Take 2 tablets by mouth every 6 hours as needed for Pain. 1000 mg Refills: 0 Calcium Citrate-Vitamin D3 315-250 mg-unit Tab Take 2 tablets by mouth 3 times daily. 2 tablet Refills: 0 docusate sodium 100 mg Cap Commonly known as: COLACE Take 1 capsule by mouth 2 times daily. 100 mg Refills: 0 ibuprofen 600 mg Tab Commonly known as: ADVIL;MOTRIN Take 1 tablet by mouth every 6 hours as needed for Pain. 600 mg Refills: 0 oxyCODONE 5 mg Tab Commonly known as: ROXICODONE Take 1 tablet by mouth every 6 hours as needed for Pain (For Surgical Pain Only that is unrelieved by Tylenol and Ibuprofen). 5 mg Quantity: 10 tablet Refills: 0 Continued medications, unchanged Dose Details aspirin 81 mg Tbec Take 81 mg by mouth daily. 81 mg Refills: 0 hydroCHLOROthiazide 12.5 mg Tab Commonly known as: HYDRODIURIL Take 12.5 mg by mouth daily. 12.5 mg Refills: 0 HYDROmorphone 2 mg Tab Commonly known as: DILAUDID Take 2 mg by mouth as needed for Pain. 2 mg Refills: 0 lisinopril 10 mg Tab Commonly known as: PRINIVIL;ZESTRIL Take 20 mg by mouth daily. 20 mg Refills: 0 meTOPROLOL succinate 100 mg Tablet sr Commonly known as: TOPROL-XL Take 100 mg by mouth daily. 100 mg Refills: 0 ondansetron 4 mg Tbdl Commonly known as: ZOFRAN-ODT Take 4 mg by mouth every 8 hours as needed for Nausea. 4 mg Refills: 0 Updated Allergies/ADRs: Allergies Allergen Reactions ??? Ephedrine Anxiety ??? Lexapro [Escitalopram] Scheduled Appointments: Future Appointments Date Time Provider Department [facility] 10/19/2017 10:30 AM LAKESHA, DEVIN L Lab 3L [facility] 10/19/2017 11:30 AM Yanet Trujillo MD [facility] Outpatient Services/Studies: Calcium Standing Status: Future Standing Exp. Date: 04/20/18 Instructions Given to Patient at Discharge:. An After Visit Summary was printed and given to the patient. Patient Instructions PARATHYROIDECTOMY PATIENT DISCHARGE INSTRUCTIONS What to Expect Following Surgery: Swelling and/or bruising under and around the incision is normal. It is usually greatest on the second or third day following surgery. You may also feel the sensation of swelling or firmness that canlast for a month or more Your scar will be most visible for 1-2 months following your operation and will gradually fade overthe next 6-8 months. As it heals, a scar often looks more pink or red than the skin around it. You may feel a ???healing ridge?? directly under the incision. This is completely normal and is the result of swelling, healing, and scar formation. Usually, this will go away when healing is complete in 3-6 months. The skin just above and below your incision will feel numb. This will improve over several months but some patients may have long-term decrease in sensation over these areas. You may notice minor difficulty in swallowing which will improve over time. Your voice may be hoarse or weak at first--this is normal and does not mean there was damage done to the nerves that make the vocal cords move. Your voice will usually go back to normal after severaldays to a few weeks. Incision Care: Neck incisions heal rapidly--usually within a week or two. The incision can get wet in the shower 24 hours after surgery. However, do not submerge the incision underwater (i.e. bath tub, swimming pool, hot tub, etc.) for at least 2 weeks after your operation. Pat the incision dry immediately following your shower. Do not scrub the area vigorously for the next 2 weeks. You have a skin glue closure, and you may notice tiny pieces of yellow/white material on your washcloth or there may be a thin clear or whitish crust around the edges of the incision. This is normal.The glue will start to come off about a week after surgery. Do not pull off the skin glue in order to allow time for the incision to heal completely. Do not use any ointments/salves/Vitamin E on the incision until after your first follow-up appointment as these may impair early wound healing. Incisions are sensitive to sunlight. For at least 1 year after surgery you should use sunscreen when outdoors for long periods of time to prevent permanent darkening of the scar. This includes tanning booths. Pain Management: You may apply ice or cold packs to the incision for 15-20 minutes several times a day for the first2-3 days following surgery to help with discomfort. You may feel some stiffness/soreness in your shoulders, back, and neck. This may take a few days orweeks to go away completely. You may use moist warm heat, a heating pad, or massage to these areas for 15-20 minutes several times a day. Do not be afraid to move your neck - gently flexing and stretching your neck muscles and light massage will help prevent stiffness NSAIDs (non-steroidal anti-inflammatory drugs) such as ibuprofen (Motrin, Advil) and naproxen (Naprosyn, Aleve) or acetaminophen (Tylenol) are most helpful for the pain experienced after surgery. Generally, these are even more effective than the stronger pain medications (narcotics or opioids) after thyroid surgery. Take NSAIDS or Tylenol every 6 hours [id number] for the first 3-5 days following surgery to help minimize pain. Use opioid (oxycodone) pain medications for severe pain, and never take with alcohol. Opioid medications typically cause constipation, so we suggest using a stool softener in addition (metamucil, colace...etc.). Diet & Activity: No restrictions in your diet are necessary. Activity as tolerated by your comfort level. You may return to work as soon as you would like. However, if your job requires heavy lifting or strenuous physical activity, your surgeon may ask you to wait to return to work until after your two-week post-operative appointment. NO DRIVING for at least 8 hours following any dose of an opioid pain medication if one was prescribed for you. Calcium Supplementation: Your body???s calcium levels may temporarily fall following a parathyroid operation. Therefore, allpatients should take calcium supplementation after surgery. We recommend that you purchase your calcium supplement from a pharmacy or grocery store, as it is available [id number]-[id number] and does not require a prescription. The cost is approximately $10-$15 per bottle. The calcium supplement we recommend is Citrical Maxium (calcium citrate 315 mg with 250 IU Vitamin D3). You need to take 2 tabs (to equal a dose of 630 mg calcium and 500 IU of Vitamin D3) three times daily unless instructed differently by your surgeon. If you notice a tingling sensation in your hands, feet, around your mouth, or develop muscle spasms, please call the General Surgery nurse at [phone], since this may mean that you need more calcium. Pathology Report: All specimens removed at surgery are analyzed by a pathologist. This report usually takes approximately 4 business days to be ready. Dr. Trujillo will call you with this report as soon as it is available. Follow-up Appointment: Will be scheduled with Dr. Trujillo in 6 weeks with a lab appointment to check your calcium Date and time will be mailed to you Please call [phone] to confirm the date and time of your appointment if you do not hear from us in the next 2 weeks Call Doctor for: Call if you have trouble talking or breathing (call [phone] if this is severe) Call if you develop numbness or tingling around your mouth/lips or on the tips of your fingers or your hands, as this may mean your calcium is low. This may also be related to pain medication, where the breathing tube was positioned against your lips, the positioning of your arms and hands in the operating room, or how you were positioned when sleeping. If the sensation does not go away within a half hour, or if it worsens prior to that, call us immediately so we can discuss increasing your calcium if we think you need it. Call if your incision becomes red or begins to drain fluid. Call if you have fevers greater than 101 degrees F Call if you have persistent nausea or vomiting (this may be related to opioid pain medications). Call if you begin feeling worse, rather than better, several days after surgery. Who to call? If you have concerns or questions: - During the day, it is best to call the [facility] to speak with the Surgery nurses. The number is [phone]. - During the night or weekends call the [facility] abrasive coating machine operator at [phone] and ask to speak to the surgery resident nutrition services associate for general surgery. Please note: Your surgeon may not be Special Needs Caregiver, especially during the night or on weekends, so be ready to describe yourself and your surgery when you call. Follow up appointments: Future Appointments Date Time Provider Department Center 10/19/2017 10:30 AM LAB, [facility] L Lab [facility]L [facility] 10/19/2017 11:30 AM Yanet Trujillo MD [facility] [x] Follow-up appointment with General Surgery has already been scheduled [] A request for a follow-up appointment has been made and you should receive information via phone/mail in the next week. If you do not hear anything, please call the clinic at [phone] to confirm or reschedule. If you need a prior authorization, please call the General Surgery Clinic nurses [phone] for prior authorizations assistance General Instructions None Acute Opioid Prescribing: Opioid PDMP 08/20/2017 [place] PDMP Query Date 09/05/2017 [place] PDMP Query Date 09/05/2017 Opioid Risk Assessment 08/20/2017 ORT Risk Assessment Low (0-3) Acute Opioid Specific Questions 08/20/2017 Date Acute Consent signed 09/05/2017 Considered the risk of opioid misuse, abuse, diversion? Yes Considered options for non-pharmacological modalities and non-opioid therapy? Yes Some recent data might be hidden Jeff Arreguin is being prescribed a prescription opioid for the treatment of acute post-operative pain related to surgery. Jeff Arreguin has been advised to take the smallest dose possible to control their pain and as their pain improves to take smaller doses and increase the time between doses.The patient's risk for opioid misuse, abuse or diversion have been considered. In addition to this medication, non-opioid therapies and non-pharmacologic modalities such as heating pad, ice, and activity modification have been recommended as appropriate for adjunct treatment oftheir pain. I have discussed the risks and potential side effects of opioid medications, that include but are not limited to, addiction, overdose and , dependence, tolerance, osteoporosis, constipation, sexual dysfunction, hyperalgesia and crime victimization. The patient is also informed of: - the risks of keeping unused medication -counseled on keeping opioids locked -counseled on safe disposal of unused medication -dangers of operating a motor vehicle or heavy machinery -if a renewal is required, they shall return for an in-office follow up for reevaluation. The Acute Opioid Therapy Informed Consent form has been completed and sent to medical records for scanning to chart. Follow-up Recommendations for Providers: - Routine post-operative care. - Please be sure to take your Calcium EXACTLY as prescribed. CC: Yoni Ramírez MD Signed: Tracy Felipe APRN [facility] Surgical Oncology Service Team Pager #[phone] 09/05/17 10:20 AM documented in this encounter Discharge Instructions * Patient Instructions* Tracy Felipe APRN - 09/04/2017 1:43 PM EST PARATHYROIDECTOMY PATIENT DISCHARGE INSTRUCTIONS What to Expect Following Surgery: Swelling and/or bruising under and around the incision is normal. It is usually greatest on the second or third day following surgery. You may also feel the sensation of swelling or firmness that canlast for a month or more Your scar will be most visible for 1-2 months following your operation and will gradually fade overthe next 6-8 months. As it heals, a scar often looks more pink or red than the skin around it. You may feel a ???healing ridge?? directly under the incision. This is completely normal and is the result of swelling, healing, and scar formation. Usually, this will go away when healing is complete in 3-6 months. The skin just above and below your incision will feel numb. This will improve over several months but some patients may have long-term decrease in sensation over these areas. You may notice minor difficulty in swallowing which will improve over time. Your voice may be hoarse or weak at first--this is normal and does not mean there was damage done to the nerves that make the vocal cords move. Your voice will usually go back to normal after severaldays to a few weeks. Incision Care: Neck incisions heal rapidly--usually within a week or two. The incision can get wet in the shower 24 hours after surgery. However, do not submerge the incision underwater (i.e. bath tub, swimming pool, hot tub, etc.) for at least 2 weeks after your operation. Pat the incision dry immediately following your shower. Do not scrub the area vigorously for the next 2 weeks. You have a skin glue closure, and you may notice tiny pieces of yellow/white material on your washcloth or there may be a thin clear or whitish crust around the edges of the incision. This is normal.The glue will start to come off about a week after surgery. Do not pull off the skin glue in order to allow time for the incision to heal completely. Do not use any ointments/salves/Vitamin E on the incision until after your first follow-up appointment as these may impair early wound healing. Incisions are sensitive to sunlight. For at least 1 year after surgery you should use sunscreen when outdoors for long periods of time to prevent permanent darkening of the scar. This includes tanning booths. Pain Management: You may apply ice or cold packs to the incision for 15-20 minutes several times a day for the first2-3 days following surgery to help with discomfort. You may feel some stiffness/soreness in your shoulders, back, and neck. This may take a few days orweeks to go away completely. You may use moist warm heat, a heating pad, or massage to these areas for 15-20 minutes several times a day. Do not be afraid to move your neck - gently flexing and stretching your neck muscles and light massage will help prevent stiffness NSAIDs (non-steroidal anti-inflammatory drugs) such as ibuprofen (Motrin, Advil) and naproxen (Naprosyn, Aleve) or acetaminophen (Tylenol) are most helpful for the pain experienced after surgery. Generally, these are even more effective than the stronger pain medications (narcotics or opioids) after thyroid surgery. Take NSAIDS or Tylenol every 6 hours [id number] for the first 3-5 days following surgery to help minimize pain. Use opioid (oxycodone) pain medications for severe pain, and never take with alcohol. Opioid medications typically cause constipation, so we suggest using a stool softener in addition (metamucil, colace...etc.). Diet & Activity: No restrictions in your diet are necessary. Activity as tolerated by your comfort level. You may return to work as soon as you would like. However, if your job requires heavy lifting or strenuous physical activity, your surgeon may ask you to wait to return to work until after your two-week post-operative appointment. NO DRIVING for at least 8 hours following any dose of an opioid pain medication if one was prescribed for you. Calcium Supplementation: Your body???s calcium levels may temporarily fall following a parathyroid operation. Therefore, allpatients should take calcium supplementation after surgery. We recommend that you purchase your calcium supplement from a pharmacy or grocery store, as it is available [id number] and does not require a prescription. The cost is approximately $10-$15 per bottle. The calcium supplement we recommend is Citrical Maxium (calcium citrate 315 mg with 250 IU Vitamin D3). You need to take 2 tabs (to equal a dose of 630 mg calcium and 500 IU of Vitamin D3) three times daily unless instructed differently by your surgeon. If you notice a tingling sensation in your hands, feet, around your mouth, or develop muscle spasms, please call the General Surgery nurse at [phone], since this may mean that you need more calcium. Pathology Report: All specimens removed at surgery are analyzed by a pathologist. This report usually takes approximately 4 business days to be ready. Dr. Trujillo will call you with this report as soon as it is available. Follow-up Appointment: Will be scheduled with Dr. Trujillo in 6 weeks with a lab appointment to check your calcium Date and time will be mailed to you Please call [phone] to confirm the date and time of your appointment if you do not hear from us in the next 2 weeks Call Doctor for: Call if you have trouble talking or breathing (call [phone] if this is severe) Call if you develop numbness or tingling around your mouth/lips or on the tips of your fingers or your hands, as this may mean your calcium is low. This may also be related to pain medication, where the breathing tube was positioned against your lips, the positioning of your arms and hands in the operating room, or how you were positioned when sleeping. If the sensation does not go away within a half hour, or if it worsens prior to that, call us immediately so we can discuss increasing your calcium if we think you need it. Call if your incision becomes red or begins to drain fluid. Call if you have fevers greater than 101 degrees F Call if you have persistent nausea or vomiting (this may be related to opioid pain medications). Call if you begin feeling worse, rather than better, several days after surgery. Who to call? If you have concerns or questions: - During the day, it is best to call the [facility] to speak with the Surgery nurses. The number is [phone]. - During the night or weekends call the [facility] abrasive coating machine operator at [phone] and ask to speak to the surgery resident nutrition services associate for general surgery. Please note: Your surgeon may not be Special Needs Caregiver, especially during the night or on weekends, so be ready to describe yourself and your surgery when you call. Follow up appointments: Future Appointments Date Time Provider Department [place] 10/19/2017 10:30 AM DEVIN JO L Lakesha HARDEEP DELONGID 10/19/2017 11:30 AM Yanet Trujillo MD [facility] [x] Follow-up appointment with General Surgery has already been scheduled [] A request for a follow-up appointment has been made and you should receive information via phone/mail in the next week. If you do not hear anything, please call the clinic at [phone] to confirm or reschedule. If you need a prior authorization, please call the General Surgery Clinic nurses [phone] for prior authorizations assistance documented in this encounter Medications at Time of Discharge Medication Sig Dispensed Refills Start Date End Date acetaminophen (TYLENOL) 500 mg Tablet Take 2 tablets by mouth every 6 hours as needed for Pain. 09/05/2017 ondansetron (ZOFRAN-ODT) 4 mg Tablet, Rapid Dissolve Take 4 mg by mouth every 8 hours as needed for Nausea. ibuprofen (ADVIL;MOTRIN) 600 mg Tablet Take 1 tablet by mouth every 6 hours as needed for Pain. 09/05/2017 12/27/2021 Calcium Citrate-Vitamin D3 315-250 mg-unit Tablet Take 2 tablets by mouth 3 times daily. 09/05/2017 03/11/2024 docusate sodium (COLACE) 100 mg Capsule Take 1 capsule by mouth 2 times daily. 09/05/2017 12/27/2021 oxyCODONE (ROXICODONE) 5 mg Tablet Take 1 tablet by mouth every 6 hours as needed for Pain (For Surgical Pain Only that is unrelieved by Tylenol and Ibuprofen). 10 tablet 09/05/2017 05/09/2021 hydroCHLOROthiazide (HYDRODIURIL) 12.5 mg Tablet Take 12.5 mg by mouth daily. 05/09/2021 aspirin 81 mg Tablet, Delayed Release (E.C.) Take 81 mg by mouth every evening. 10/20/2021 meTOPROLOL succinate (TOPROL-XL) 100 mg Tablet Sustained Release 24 hr Take 100 mg by mouth daily. 05/09/2021 HYDROmorphone (DILAUDID) 2 mg Tablet Take 2 mg by mouth as needed for Pain. 10/13/2021 lisinopril (PRINIVIL;ZESTRIL) 10 mg Tablet Take 20 mg by mouth daily. 05/09/2021 documented as of this encounter Progress Notes * Sabina Amaral - 09/04/2017 10:43 PM EST Progress Note/Post-Op Check: Procedure/Intervention: PARATHYROIDECTOMY OR EXPLORATION OF PARATHYROID(S) (WRVU 15.6) (N/A) FACIAL NERVE MONITORING, SETUP LARYNGEAL (WRVU 1.57) (N/A) ?? S: He is feeling well. Pain is now well controlled with HELP DESK OPERATOR started by anesthesia in PACU for uncontrolled pain. No nausea or emesis, tolerating chicken soup at present. No CP/SOB. O: Last value Range last 24 hrs Temperature Temp: 36.9 ??C (98.4 ??F) Temp: [36.3 ??C (97.3 ??F)-37 ??C (98.6 ??F)] Heart Rate Heart Rate: 73 Heart Rate: [51-73] Blood Pressure BP: 150/82 BP: (135-225)/(78-104) Respiratory Rate Resp: 16 Resp: [12-21] SpO2 SpO2: 98 % SpO2: [95 %-100 %] I/Os: Intake/Output Summary (Last 24 hours) at 09/04/17 2243 Last data filed at 09/04/17 1900 Gross per 24 hour Intake 1600 ml Output 700 ml Net 900 ml , I/O last 1 completed shift: In: 1600 [I.V.:1600] Out: 700 [Urine:650; Blood:50] Physical Exam: Gen: alert and oriented, in NAD HEENT: incision c/d/i, no swelling, not hoarse CV: RRR, no m/r/g Pulm: CTAB A/P: Mr Arreguin is a 52 yo man POD#0 s/p parathyroidectomy for HPT. Progressing well postoperatively.Pain is well controlled with HELP DESK OPERATOR and pt is currently stable. - Straight cath in PACU, voided 150cc upon arrival to [facility] - Continue ordered post-operative care Sabina Amaral MD 09/04/2017 * Crystal Rivas RN - 09/04/2017 7:45 PM EST Pt arrived to PACU, attached to monitors, alarms on, settings appropriate for pt. No nausea or painnoted. BP on arrival 225/104, pt bed saturated in urine and bladder scanned for 506. Pt subsequently straight cathed for 675ml and BP beginning to trend down. Pt reports 10/10 pain that is not improved by IV dilaudid. Pt tolerating sips of water well. Anesthesia and service discussed potential plans and decided on a morphine HELP DESK OPERATOR. 2114 HELP DESK OPERATOR education provided for pt. documented in this encounter H&P Notes * Martinez Werner MD - 09/04/2017 11:58 AM EST [facility] Department of General Surgery Pre Procedure Note HPI: 52M with hyperparathyroidism found to have hyperparathyroidism and 2 cervical nodules consistent with likely adenomas, but is also being worked up for MEN syndrome due to history of chronic nausea/emesis, abdominal pain and elevated calcitonin. Reports ongoing abdominal pain and nausea, back pain; denies fevers, chills, chest pain, shortness of breath. PM/SH: Past Medical History: Diagnosis Date ??? Arthritis ??? Hypertension Past Surgical History: Procedure Laterality Date ??? CHOLECYSTECTOMY, LAPAROSCOPIC ??? FOOT SURGERY left ??? PRO ERCP,DIAGNOSTIC 08/22/2013 ERCP performed by Duane Garcia MD at [facility] ENDOSCOPY ??? TONSILLECTOMY ALL: Allergies Allergen Reactions ??? Ephedrine Anxiety ??? Lexapro [Escitalopram] MED: No current facility-administered medications on file prior to encounter. Current Outpatient Prescriptions on File Prior to Encounter Medication Sig Dispense Refill ??? HYDROmorphone (DILAUDID) 2 mg Tablet Take 2 mg by mouth as needed for Pain. ??? lisinopril (PRINIVIL;ZESTRIL) 10 mg Tablet Take 10 mg by mouth daily. Social history: Social History Social History ??? Marital status: Spouse name: N/A ??? Number of children: N/A ??? Years of education: N/A Occupational History ??? Not on file. Social History Main Topics ??? Smoking status: Former Smoker Packs/day: 1.00 Years: 25.00 Quit date: 08/13/2011 ??? Smokeless tobacco: Not on file ??? Alcohol use 13.2 oz/week 12 Cans of beer, 12 Standard drinks or equivalent per week ??? Drug use: No ??? Sexual activity: Not on file Other Topics Concern ??? Blood Transfusions No ??? 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 Type 2 Diabetes Father ??? Coronary Artery Disease Father ??? Ovarian Cancer Sister ??? Ovarian Cancer Mother ROS: As stated above, otherwise remainder of 10-point system review is negative Physical Exam: Temp: -- Heart Rate: -- Resp: -- BP: -- SpO2: -- Heart Rate from SPO2: -- Gen: awake, alert, no distress Neuro: GCS 15, motor and sensation intact CV: RRR Pulm: clear bl GI: soft, nontender MSK: no edema, pulses +2 b/l Neuro: GCS 15, motor and sensation intact Calcitonin 05/21/2017: 36 CEA 05/21/2017: 36 TSH 05/21/2017: 1.08 PTH 05/30/2017: 131 FNA PTH 05/30/2017: 15 Prolactin 05/30/2017: 5.7 Calcium 05/30/2017: 11.8 24 hour urine metanephrines (total volume 975mL)--all normal Metanephrines 130mcg Normetanephrines 373mcg Total metanephrines 503mcg Epinephrine 6.4 Dopamine 171 RET neg Assessment and Plan: 52M with hyperparathyroidism and 2 nodules, though one is possibly a lymph node, and work upo for MEN syndrome, thus far negative -consented for minimally invasive parathyroidectomy with intraoperative PTH monitoring and possiblebilateral exploration if PTH levels do not decrease appropriately. MARTINEZ WERNER MD 09/04/2017 [id number] documented in this encounter Miscellaneous Notes * Plan of Care - Makenna Hsu RN - 09/05/2017 10:46 AM EST Problem: Patient Care Overview Goal: Plan of Care Review Outcome: Outcome (s) achieved Date Met: 09/05/17 09/05/17 1043 Coping/Psychosocial Plan Of Care Reviewed With patient Plan of Care Review Progress improving OUTCOME EVALUATION NOTE: OUTCOME SUMMARY: Pt is alert and oriented x 4, ambulatory, voiding in BR, tolerates regular diet, neck incision clean and intact, medicated for pain and nausea prior to discharge. AVS provided and reviewed, all questions answered. PLAN MOVING FORWARD: Discharge to home INDIVIDUALIZED FALL PREVENTION INTERVENTIONS: Patient-specific fall risk factors per assessment: [current deficits]: none Assistance [level of assistance required for transfers and ambulation]: independent Supervision [direct monitoring required during toileting and ADLs]: none Surveillance [continuous indirect monitoring]: none Patient-specific fall prevention interventions for sensory deficits provided, if applicable: no * Plan of Care - Hortencia Crum RN - 09/05/2017 4:35 AM EST Problem: Patient Care Overview Goal: Plan of Care Review Outcome: Ongoing (Interventions Implemented as Appropriate) 09/05/17 0428 Coping/Psychosocial Plan Of Care Reviewed With patient Plan of Care Review Progress improving OUTCOME EVALUATION NOTE: OUTCOME SUMMARY: Patient received A&O, HTN noted but VS otherwise stable. Patient reports pain to be adequately controlled with HELP DESK OPERATOR. Ambulated in halls, tolerated activity well. Incision CDI with dermabond, some swelling below the incision this AM after increased activity. Will CTM. Comfort and safety measures maintained, CBIR. PLAN MOVING FORWARD: CTM I/O, labs, VS, pain, advance activity and diet as tolerated, D/C home when able. INDIVIDUALIZED FALL PREVENTION INTERVENTIONS: Patient-specific fall risk factors per assessment: [current deficits]: IV access, secondary diagnosis Assistance [level of assistance required for transfers and ambulation]: Independent Supervision [direct monitoring required during toileting and ADLs]: Independent Surveillance [continuous indirect monitoring]: Hourly rounding Patient-specific fall prevention interventions for sensory deficits provided, if applicable: NA CPG GOAL OUTCOME EVALUATION: * Op Note - Yanet Trujillo MD - 09/04/2017 4:23 PM EST [facility] Operative Note Patient Name: Jeff Arreguin : [id number] MR#: [id number] Case Date: 09/04/2017 Surgeon: Surgeon(s) and Role: * Yanet Trujillo MD - Primary * Martinez Werner MD - Resident-Surgeon Chief Preoperative diagnosis: HPT Postoperative diagnosis: HPT Procedure(s) (LRB): PARATHYROIDECTOMY OR EXPLORATION OF PARATHYROID(S) (WRVU 15.6) (N/A) FACIAL NERVE MONITORING, SETUP LARYNGEAL (WRVU 1.57) (N/A) Anesthesia: General with NIM tube; 10cc 0.25% marcaine with epinephrine Estimated Blood Loss: * No values recorded between 09/04/2017 3:14 PM and 09/04/2017 4:23 PM * Specimens removed during surgery: Order Name Source Comment Collection Info Order Time SPECIMEN TO PATHOLOGY YES, Please perform frozen section HPT Right upper parathyroid gland No Excision 09/04/2017 3:53 PM Time removed from patient: 3:52 PM Drains: Surgical Closure: Primary Closure - closure of ALL tissue levels during the original surgery regardless of wires, wickes, drains, or other devices extruding through the incision Disposition: awakened from anesthesia, extubated and taken to the recovery room in a stable condition, having suffered no apparent untoward event. Condition: doing well without problems (Please see the Surgical Encounter Summary for any Implant and Specimen details pertinent to this patient.) HPI/Surgical Indications: 51 y/o M with hyperparathyroidism, chronic abdominal pain, elevated calcitonin/CEA, and a new lung nodule seen on chest CT done in February. There are two findings on his cervical ultrasound initially reported to be consistent with parathyroid adenomas, but the left-sided nodule appears more consistent with a rounded lymph node (see images in 05/21 office note). FNA of the left-sided nodule was nondiagnostic with PTH washout 15. Procedure Description: The patient was taken to the operating room and placed on the operating table in the supine position. Adequate general anesthesia was completed by anesthesiology with the [employer] recurrent laryngeal nerve monitoring system. A crease on the anterior neck was identified and marked, and this area was infiltrated with 10 cc 0.25% marcaine with epinephrine. He was then preppedand draped in the usual sterile fashion over the anterior neck. A timeout procedure was done, and all members of the OR team were in agreement. The procedure began by making a curvilinear incision along the lower anterior neck along the previously marked skin crease with a scalpel. Electrocautery was used to continue dissection through the subcutaneous tissue and through the platysma muscle. Subplatysmal flaps were created in cranial and caudal directions. The median raphe of the strap muscles was divided with electrocautery. We developed a plane between the right strap muscles down to the right internal jugular vein, and rocio a baseline PTH from the internal jugular vein. IOPTH levels are noted in the below. We then dissected the strap muscles off the thyroid lobe out to its lateral aspect. The soft tissue attachments were suggestive of thyroiditis. The middle thyroidal veins were ligated. We dissected into the paratracheal and paraesophageal space and identified the recurrent laryngeal nerve as it ran into the tracheoesophageal groove and carefully preserved this. We identified a right upper parathyroid gland in the normal a natomic position which was markedly enlarged such that it extended laterally posterior to the carotid. It was abnormally adherent to the soft tissue around it and there was some apparent fibrotic attachments to the capsule. We dissected it free and at some point avulsed its vascular pedicle, so we did not draw a pre-excision PTH. We then removed the right upper parathyroid gland and ligated the avulsed vascular pedicle with a 3-0 silk suture. The gland was passed off the table as a frozen specimen and was confirmed to be parathyroid tissue with fibrosis, but no evidence of malignancy. At 10 and 15 minutes, we rocio post- excision PTHs from the internal jugular vein. We then irrigated the operative field. A Valsalva to 30 millimeters of mercury was accomplished by Anesthesia. Hemostasis was assured. The recurrent laryngeal nerve was tested again, and it was fullyfunctional on the nerve monitor. We placed Surgicel in the paratracheal space, closed the strap muscles using running 3-0 Vicryl suture, the platysma with interrupted 3-0 Vicryl suture, and the skin with running 5-0 Prolene subcuticular suture. The IOPTH levels were not consistent with biochemical cure, so we reopened the incision. Immediately upon reopening we sent another PTH level from the right internal jugular vein. First, we reexplored the right side of the neck. At that time, we did not find anything consistent with a right lower parathyroid gland. We then turned our attention to the contralateral side. The strap muscles were dissected off the left thyroid lobe out to its lateral aspect. Similar to the other side, there were fibrotic adhesions between the muscle and the thyroid gland. There is also some edema noted as we openthe plane between the muscle and the gland. We ligated the middle thyroid vein. We dissected into the paratracheal and paraesophageal space and identified the recurrent laryngeal nerve running in itsnormal anatomic location. We carefully preserved this. We rolled the thyroid gland medially. The gland was noted to be friable and again there were remarkable dense, abnormal soft tissue attachments throughout the central neck. We did not identify any candidate parathyroid glands in the normal anatomic location. As the patient's preoperative ultrasound had suggested a hypoechoic nodule lower in the central neck, we essentially performed a central neck dissection by removing the fatty contents between the carotid artery laterally and the trachea medially. We inspected the specimen ex vivo and there were no obvious parathyroid glands identified. We grasped the left cervical thymus and attempted to pull it up into the neck. Again because of the dense soft tissue attachments this was not easily done. We were able to deliver a portion of the left cervical thymus into the neck and amputated it with the harmonic scalpel. The specimen was then inspected, but no obvious parathyroid glands werelocated within the gland. At this point, the left neck was relatively cleared and no candidate parathyroid glands had been found. Our anesthesia colleagues to the venous blood sample from the left lower extremity to be sent for PTH while we continued our exploration. We temporarily returned our attention to the right side. We pulled a bit of the right cervical thymus up into the neck and did identify a small, subcentimeter, gland but developed a bit of subcapsular hemorrhage consistent with parathyroid tissue. We elected to excise this and sent it to pathology for frozen section. This was interpreted as a parathyroid gland weighing 0.09 g. With the right neck cleared, we then continue to inspect the left neck, but did not find any candidate parathyroid glands. At that point, the peripheral venous sample returned with a PTH of 32. The decreasing values and kinetics of the IOPTH indicated a biochemical cure. We closed the incision in an identical fashion the first time. We irrigated the operative field. A Valsalva to 30 mmHg was accomplished by anesthesia on both sides to assure hemostasis. Both recurrent laryngeal nerves were tested again, and both are fully functional and the nerve monitor and anatomically intact. We placed Surgicel in the paratracheal spaces bilaterally. We then closed the vertical strap muscles using 3-0 Vicryl suture, the platysma was closed with interrupted 3-0 Vicryl suture, and the skin was closed with a running 5-0 Prolene subcuticular suture. We then placed Dermabond on the incision and remov ed the Prolene suture. IOPTH findings: Baseline: 855 pg/mL 10-min post-excision 215 pg/mL 15-min post-excision 174 pg/mL 1646 (reopening) 103 Pg/mL 1803 32 Pg/mL Infection Bundle used? N/A Attestation: Case Date: 09/04/2017 I was present and I participated during the entire procedure (does not need to include opening and closing). YANET TRUJILOL MD 09/04/2017 * Brief Op Note - Yanet Trujillo MD - 09/04/2017 4:21 PM EST Brief Operative Note Patient Name: Jeff Arreguin : [id number] MR#: [id number] Case Date: 09/04/2017 Surgeon: Surgeon(s) and Role: * Yanet Trujillo MD - Primary * Martinez Werner MD - Resident-Surgeon Chief Preoperative diagnosis: HPT Postoperative diagnosis: HPT Procedure(s) (LRB): PARATHYROIDECTOMY OR EXPLORATION OF PARATHYROID(S) (WRVU 15.6) (N/A) FACIAL NERVE MONITORING, SETUP LARYNGEAL (WRVU 1.57) (N/A) Anesthesia: General with NIM tube; 10cc 0.25% marcaine with epinephrine Findings: markedly enlarged right upper parathyroid gland in normal anatomic position, but enlargedenough to extend laterally posterior to the carotid artery. Fibrotic attachments around the gland. Sent for frozen, consistent with parathyroid tissue. Right RLN signal intact. Reopened when IOPTH did not decrease appropriately. Rexploration eventually yielded a right lower parathyroid gland that was intrathymic and no candidate left-sided parathyroid glands. After a left central neck dissection and a left cervical thymectomy was done, a PTH level was sent and was consistent with biochemical cure. Dense, fibrotic soft tissue attachments and abnormally tenacious muscle, consistent with thyroiditis. IOPTH findings: Baseline: 855 pg/mL 10-min post-excision 215 pg/mL 15-min post-excision 174 pg/mL 1646 (reopening) 103 Pg/mL 1803 32 Pg/mL Complications: none apparent Intake: Intraprocedure Crystalloid Total Lactated Ringers Volume (mL) 1600 mL Transfusion No data found. Output: Estimated Blood Loss: 50 mL Urine Output:: (no blood products) Other Output: (no other output recorded) Drains: none Specimens removed during surgery: Order Name Source Comment Collection Info Order Time SPECIMEN TO PATHOLOGY YES, Please perform frozen section HPT Right upper parathyroid gland No Excision 09/04/2017 3:53 PM Time removed from patient: 3:52 PM SPECIMEN TO PATHOLOGY HPT LEFT CERVICAL THYMUS Excision 09/04/2017 5:52 PM Time removed from patient: 5:52 PM SPECIMEN TO PATHOLOGY YES, Please perform frozen section HPT ? RIGHT LOWER PARATHYROID VERSUS LYMPH NODE No Excision 09/04/2017 6:09 PM Time removed from patient: 6:08 PM SPECIMEN TO PATHOLOGY HPT CENTRAL NECK CONTENTS No Excision 09/04/2017 6:35 PM Time removed from patient: 6:25 PM Disposition: awakened from anesthesia, extubated and taken to the recovery room in a stable condition, having suffered no apparent untoward event. Condition: doing well without problems Attestation: Case Date: 09/04/2017 I was present and I participated during the entire procedure (does not need to include opening and closing). (Please see the Surgical Encounter Summary for any Implant and Specimen details pertinent to this patient.) documented in this encounter Plan of Treatment Upcoming Encounters Date Type Department Care Team (Latest Contact Info) Description 08/05/2024 11:30 AM EST Office Visit Hematology/Oncolog y at [address] [phone] Deyvi Ibrahim MD [facility] HEMATOLOGY [place] [address] Isabel Berry APRN [facility] [place] [address] 08/05/2024 12:00 PM EST Infusion Hematology Oncology at [address] [phone] 08/27/2024 10:00 AM EST Hospital Encounter [place] [phone] Gulshan Elder MD [facility] [place] [address] 08/27/2024 10:00 AM EST Anesthesia Event [place] [phone] Swati Gonzalez MD [facility] DR [place] [address] 08/27/2024 10:00 AM EST - 08/27/2024 11:00 AM EST Surgery [place] [phone] Gulshan Elder MD [facility] [place] [address] EGD, UPPER GI ENDOSCOPY (WRVU 2.09) Scheduled [...] Procedure Name Priority Date/Time Associated Diagnosis Comments CALCIUM Routine 09/05/2017 5:20 AM EST SPECIMEN TO PATHOLOGY Routine 09/04/2017 6:36 PM EST SPECIMEN TO PATHOLOGY Routine 09/04/2017 6:09 PM EST INTRAOPERATIVE PTH ([facility]) STAT 09/04/2017 6:03 PM EST SPECIMEN TO PATHOLOGY Routine 09/04/2017 5:52 PM EST INTRAOPERATIVE PTH ([facility] STAT 09/04/2017 4:49 PM EST INTRAOPERATIVE PTH ([facility] STAT 09/04/2017 4:08 PM EST INTRAOPERATIVE PTH ([facility] STAT 09/04/2017 4:02 PM EST SURGICAL PATHOLOGY REPORT Routine 2017 3:54 PM EST SPECIMEN TO PATHOLOGY STAT 09/04/2017 3:53 PM EST INTRAOPERATIVE PTH ([facility] STAT 09/04/2017 3:35 PM EST FACIAL NERVE MONITORING, SETUP LARYNGEAL (WRVU 1.57) 09/04/2017 2:40 PM EST HPT PARATHYROIDECTOMY OR EXPLORATION OF PARATHYROID(S) (WRVU 15.6) 09/04/2017 2:40 PM EST HPT ECG SCAN 09/04/2017 12:00 AM EST documented in this encounter Results * Calcium (09/05/2017 5:20 AM EST) Calcium 9.3 8.5 - 10.5 mg/dL [facility] Blood specimen (specimen) 09/05/2017 5:20 AM EST 09/05/2017 5:20 AM EST Narrative Resulting Agency Comment Spec In Lab Yanet Trujillo MD CHEMISTRY ORDERAB LES Performing Organization Address City/[facility]/[place] [address] * Specimen to Pathology (09/04/2017 6:36 PM EST) AP Specimen 09/04/2017 6:36 PM EST 09/04/2017 6:44 PM EST Narrative [facility] - 09/04/2017 6:44 PM EST Specimen requisition ordered. ??Separate Pathology report to follow Resulting Agency Comment Spec In Lab Yanet Trujillo MD PATHOLOGY/CYTOLOG Y ORDERABLES Performing Organization Address City/[facility]/[place] [address] * Specimen to Pathology (09/04/2017 6:09 PM EST) AP Specimen 09/04/2017 6:09 PM EST 09/04/2017 6:09 PM EST Narrative [facility] - 09/04/2017 6:09 PM EST Specimen requisition ordered. ??Separate Pathology report to follow Yanet Trujillo MD PATHOLOGY/CYTOLOG Y ORDERABLES Performing Organization Address City/[facility]/ZIP Co de Phone Number [facility] [place] [address] * Intraoperative PTH (Leb/CGP) (09/04/2017 6:03 PM EST) PTH, Intraoperative 32 9 - 77 pg/mL [facility] Comment: Called by: ERLIN, Read back by: Jennifer Salmeron, Date/Time:09/04/17 18:34. A 50 % decrease in venous iPTH levels at 10 min post adenoma excision is expected if all the hypersecreting parathyroid tissue has been removed (Tashi HAIRSTON et al. Surgery 1993:114; [id number]) Blood specimen (specimen) 09/04/2017 6:03 PM EST 09/04/2017 6:08 PM EST Narrative Resulting Agency Comment Spec In Lab Yanet Trujillo MD CHEMISTRY ORDERAB LES Performing Organization Address City/[facility]/ZIP Co de Phone Number [facility] [place] [address] * Specimen to Pathology (09/04/2017 5:52 PM EST) AP Specimen 09/04/2017 5:52 PM EST 09/04/2017 5:52 PM EST Narrative [facility] - 09/04/2017 5:52 PM EST Specimen requisition ordered. ??Separate Pathology report to follow Yanet Trujillo MD PATHOLOGY/CYTOLOG Y ORDERABLES Performing Organization Address City/[facility]/ZIP Co de Phone Number [facility] [place] [address] * (ABNORMAL) Intraoperative PTH (Leb/CGP) (09/04/2017 4:49 PM EST) PTH, Intraoperative 103(H) 9 - 77 pg/mL [facility] Comment: Called by: ERLIN, Read back by: Jennifer Salmeron, Date/Time:09/04/17 17:18. A 50 % decrease in venous iPTH levels at 10 min post adenoma excision is expected if all the hypersecreting parathyroid tissue has been removed (Tashi HAIRSTON et al. Surgery 1993:114; [id number]) Blood specimen (specimen) 09/04/2017 4:49 PM EST 09/04/2017 4:52 PM EST Narrative Resulting Agency Comment Spec In Lab Yanet Trujillo MD CHEMISTRY ORDERAB LES Performing Organization Address [facility] de Phone Number [facility] [place] [address] * (ABNORMAL) Intraoperative PTH (Leb/CGP) (09/04/2017 4:08 PM EST) PTH, Intraoperative 174(H) 9 - 77 pg/mL [facility] Comment: Called by: RELIN, Read back by: Thao Nicole, Date/Time:09/04/17 16:40. A 50 % decrease in venous iPTH levels at 10 min post adenoma excision is expected if all the hypersecreting parathyroid tissue has been removed (Tashi GL et al. Surgery 1993:114; [id number]) Blood specimen (specimen) 09/04/2017 4:08 PM EST 09/04/2017 4:12 PM EST Narrative Resulting Agency Comment Spec In Lab Yanet Trujillo MD CHEMISTRY ORDERAB LES Performing Organization Address [facility] de Phone Number [facility] [place] [address] * (ABNORMAL) Intraoperative PTH (Leb/CGP) (09/04/2017 4:02 PM EST) PTH, Intraoperative 215(H) 9 - 77 pg/mL [facility] Comment: A 50 % decrease in venous iPTH levels at 10 min post adenoma excision is expected if all the hypersecreting parathyroid tissue has been removed (Tashi GL et al. Surgery 1993:114; [id number]) Blood specimen (specimen) 09/04/2017 4:02 PM EST 09/04/2017 4:06 PM EST Narrative Resulting Agency Comment Spec In Lab Yanet Trujillo MD CHEMISTRY ORDERAB LES [facility] [place] [address] * Surgical Pathology Report (09/04/2017 3:54 PM EST) Final Diagnosis [id number] ? Location: [facility]; [facility]; The signing pathologist has (i) examined the relevant preparation(s) for the specimen(s) and (ii) rendered or confirmed the diagnosis(es). . ?Surgical Pathology DIAGNOSIS A - Right upper parathyroid gland for frozen section: Enlarged parathyroid gland. (see Discussion) B - Right lower parathyroid versus lymph node, excision: Parathyroid tissue. C - Left cervical thymus, excision: - Parathyroid tissue. - Involuted thymus. D - Central neck contents, excision: Four benign lymph nodes. Electronically signed by: ??Shahla MAYES, Nae Curiel Verified: ??09/06/2017 ?Pathologist Performed at: ??-[facility] [place], [place], [place] DISCUSSION The intraoperathive PTH decreased from 215 pg/mL to 32 pg/mL. A - Histologically, part A is consistent with a parathyroid adenoma. CLINICAL INFORMATION Specimen Submitted: A - Right upper parathyroid gland for frozen section B - ? Right lower parathyroid versus lymph node C - Left cervical Thymus D - Central neck contents Clinical History: HPT Clinical Diagnosis: Same SPECIMEN PROCESSING A - ??Labeled/Fixative : Right upper parathyroid gland, fresh. Quantity/Size/Weig ht: Single, 1.8 x 1.3 x 0.8 cm, 1.23 grams. Tissue Description: Red nodular soft tissue with surrounding yellow adipose tissue. Upon further serially sectioning there is a 0.5 cm white, rubbery area. Sections/Processin g: (1) remainder of the frozen section tissue is entirely submitted; (2-3) the remainder of the specimen is serially sectioned and entirely submitted with white rubbery area in 3. (T3) B - ??Labeled/Fixative :? Right lower parathyroid versus lymph node, fresh. Quantity/Size/Weig ht: Single, 0.9 x 0.6 x 0.3 cm. Tissue Description: [place] ovoid tissue. Sections/Processin g: (1) remainder of the frozen section tissue is entirely submitted. (T1) C - ??Labeled/Fixative : Left cervical thymus, fresh. Quantity/Size/Weig ht: Single, 2.5 x 1.6 x 0.6 cm, 1.29 grams. . SPECIMEN PROCESSING Tissue Description: Yellow fibroadipose tissue. Serially sectioning the specimen reveals a 0.5 x 0.4 x 0.3 cm firm, yellow nodule. Sections/Processin g: (1) yellow nodule serially sectioned and entirely submitted; (2-3) additional financial representative sections of thymus. (R3) D - ??Labeled/Fixative : Central neck contents, fresh. Quantity/Size: Multiple, 4.1 x 3.7 x 1.1 cm. Tissue Description: Yellow, lobular adipose tissue. Sectioning reveals 4 lymph nodes, the largest is 0.7. Sections/Processin g: (1) one node; (2) one node; (3) two whole nodes. (R3) ??cmn ?Frozen Section FROZEN SECTION DIAGNOSIS BFS - Right lower parathyroid gland for frozen section: Parathyroid tissue (0.09 g) 09/04/17 18:25 Electronically signed by: ??Yoni Hernandez MD Verified: ??09/04/2017 ?[address]i st Performed at: ??-[facility], [place], [place] This intraoperative consultation should be interpreted as a preliminary diagnosis pending review of the entire specimen and special studies, if any. ?Frozen Section FROZEN SECTION DIAGNOSIS AFS - Right upper parathyroid gland for frozen section: Parathyroid tissue. 09/04/17 16:12 Electronically signed by: ??Shahla MAYES, Nae Curiel Verified: ??09/04/2017 ?Pathologist Performed at: ??-[facility] of [facility], [place], [place] This intraoperative consultation should be interpreted as a preliminary diagnosis pending review of the entire specimen and special studies, if any. 09/06/2017 4:33 PM EST [facility] LYMPH NODE SPECIMEN / Unknown 09/04/2017 3:54 PM EST 09/04/2017 3:54 PM EST Frozen Specimen 09/04/2017 3 :54 PM EST 09/04/2017 3:54 PM EST THYMUS GLAND STRUCTURE / Unknown 09/04/2017 3:54 PM EST 09/04/2017 3:54 PM EST LYMPH NODE SPECIMEN / Unknown 09/04/2017 3:54 PM EST 09/04/2017 3:54 PM EST Yanet Trujillo MD PATHOLOGY/CYTOLOG Y ORDERABLES Performing Organization Address City/[facility]/ZIP Co de Phone Number [facility] [place] [address] * Specimen to Pathology (09/04/2017 3:53 PM EST) AP Specimen 09/04/2017 3:53 PM EST 09/04/2017 3:53 PM EST Narrative [facility] - 09/04/2017 3:53 PM EST Specimen requisition ordered. ??Separate Pathology report to follow Yanet Trujillo MD PATHOLOGY/CYTOLOG Y ORDERABLES Performing Organization Address City/[facility]/ZIP Co de Phone Number [facility] [place] [address] * (ABNORMAL) Intraoperative PTH (Leb/CGP) (09/04/2017 3:35 PM EST) PTH, Intraoperative 855(H) 9 - 77 pg/mL [facility] Comment: Called by: ERLIN, Read back by: Thao Nicole, Date/Time:09/04/17 16:05. A 50 % decrease in venous iPTH levels at 10 min post adenoma excision is expected if all the hypersecreting parathyroid tissue has been removed (Tashi GL et al. Surgery 1993:114; [id number]) Blood specimen (specimen) 09/04/2017 3:35 PM EST 09/04/2017 3:38 PM EST Narrative Resulting Agency Comment Spec In Lab Yanet Trujillo MD CHEMISTRY ORDERAB LES [facility] [place] [address] * SCAN DOC: ECG (09/04/2017 12:00 AM EST) Narrative 09/04/2017 12:00 AM EST Ordered by an unspecified provider. Scanning Provider MEDIA MGR SCAN EXT O RDR/RSLT documented in this encounter Visit Diagnoses Not on filedocumented in this encounter Admitting Diagnoses Diagnosis Hyperparathyroidism Hyperparathyroidism, unspecified documented in this encounter Administered Medications Inactive Administered Medications - up to 3 most recent administrations Medication Order MAR Action Action Date Dose Rate Site acetaminophen (TYLENOL) tablet 1,000 mg 1,000 mg, Oral, EVERY 6 HOURS SCHEDULED, First dose on Sun09/04/17 at 1915, Until Discontinued, Do not exceed 4,000 mg in 24 hours, Routine Given 09/05/2017 2:35 AM EST 1,000 mg Given 09/04/2017 8:24 PM EST 1,000 mg acetaminophen (TYLENOL) tablet 1,000 mg 1,000 mg, Oral, EVERY 6 HOURS SCHEDULED, First dose (after last modification) on Sun09/05/17 at 0900, Until Discontinued, Do not exceed 4,000 mg in 24 hours, Routine Given 09/05/2017 8:37 AM EST 1,000 mg BUpivacaine-EPINEPHrine 0.25 %-1:200,000 injection ONCE PRN, Starting on Sun09/04/17 at 1518, Until Sun09/05/17 at 1300, Intra-Operative (Intra-Procedure), Routine Given 09/04/2017 3:18 PM EST 10 mLs 19- Surgical Site calcium citrate (CALCITRATE) tablet 950 mg 950 mg, Oral, 3 TIMES DAILY, First dose on Sun09/04/17 at 2245, Until Discontinued, Routine Given 09/05/2017 8:37 AM EST 950 mg Given 09/05/2017 1:00 AM EST 950 mg cholecalciferol (Vitamin D3) tablet 800 Units 800 Units, Oral, 3 TIMES DAILY, First dose on Sun09/04/17 at 2245, Until Discontinued, Routine Given 09/05/2017 8:40 AM EST 800 Units Given 09/05/2017 1:00 AM EST 800 Units hydrALAZINE (APRESOLINE) injection 5 mg 5 mg, Intravenous, EVERY 6 HOURS PRN, Starting on Sun09/04/17 at 2225, Until Sun09/05/17 at 1300, High Blood Pressure, for SBP >160. Hold for HR >90., Can give additional 5mg in 30 min if SBP remains >160 and HR is <90. HYDROmorphone (DILAUDID) injection 0.4-0.6 mg 0.4-0.6 mg, Intravenous, EVERY 5 MIN PRN, Starting on Sun09/04/17 at 1854, Until Sun09/04/17 at 2159, Pain, Give 0.4 mg every 5 minutes PRN for mild to moderate pain (1-5) Give 0.6 mg every 5 minutes PRN for moderate to severe pain (6-10). Hold for respiratory rate less than 10 per minute. Maximum dose 4 mg over one hour. If multiple pain medications are ordered, start with hydromorphone or morphine and use fentanyl for breakthrough pain., PACU Recovery, Routine Given 09/04/2017 8:37 PM EST 0.6 mg Given 09/04/2017 8:27 PM EST 0.6 mg Given 09/04/2017 8:14 PM EST 0.6 mg HYDROmorphone (DILAUDID) tablet 2 mg 2 mg, Oral, EVERY 4 HOURS PRN, Starting on Sun09/04/17 at 1856, Until Sun09/05/17 at 0758, Pain, Routine Given 09/04/2017 8:23 PM EST 2 mg ibuprofen (ADVIL;MOTRIN) tablet 600 mg 600 mg, Oral, EVERY 6 HOURS SCHEDULED, First dose (after last modification) on Sun09/05/17 at 0815, Until Discontinued, Do not administer with ketorolac, Routine Given 09/05/2017 8:39 AM EST 600 mg lactated Ringers infusion 1,000 mL 1,000 mL, at 100 mL/hr, Intravenous, CONTINUOUS, Starting on Sun09/04/17 at 1915, Until Sun09/05/17 at 0758, Recovery (Recovery-Hospital Unit) New Bag 09/04/2017 9:44 PM EST 1,000 mLs 100 mL/hr lisinopril (PRINIVIL;ZESTRIL) tablet 20 mg 20 mg, Oral, DAILY, First dose on Sun09/05/17 at 0900, Until Discontinued, Routine Given 09/05/2017 8:38 AM EST 20 mg meTOPROLOL succinate (TOPROL-XL) XL tablet 100 mg 100 mg, Oral, DAILY, First dose on Sun09/05/17 at 0900, Until Discontinued, DO NOT CRUSH OR OPEN, Routine Given 09/05/2017 8:38 AM EST 100 mg morphine 1 mg/mL HELP DESK OPERATOR 50 mL Intravenous, HELP DESK OPERATOR ONLY, Starting on Sun09/04/17 at 2100, Until Sun09/05/17 at 0758 New Syringe/Cartridge 09/04/2017 9:00 PM EST naloxone (NARCAN) injection 0.2 mg 0.2 mg, Intravenous, EVERY 1 MIN PRN, Starting on Sun09/04/17 at 2041, Until Sun09/05/17 at 1300, Opioid Reversal, May repeat every 60 seconds to increase respiratory rate. DO NOT exceed 2 mg total dose. Per HELP DESK OPERATOR order., Routine ondansetron (ZOFRAN) injection 4 mg 4 mg, Intravenous, EVERY 8 HOURS PRN, Starting on Sun09/04/17 at 1219, Until Sun09/04/17 at 2216, Nausea Given 09/04/2017 2:19 PM EST 4 mg ondansetron (ZOFRAN) injection 4 mg 4 mg, Intravenous, ONCE, 1 dose, On Sun09/04/17 at 1300, Day of Surgery (Day of Procedure) Given 09/04/2017 12:41 PM EST 4 mg ondansetron (ZOFRAN-ODT) oral disintegrating tablet 4 mg 4 mg, Oral, EVERY 8 HOURS PRN, Starting on Sun09/04/17 at 2215, Until Sun09/05/17 at 1300, Nausea, Routine Given 09/05/2017 10:25 AM EST 4 mg oxyCODONE (ROXICODONE) immediate release tablet 5 mg 5 mg, Oral, EVERY 4 HOURS PRN, Starting on Sun09/05/17 at 0757, Until Sun09/05/17 at 1300, Pain, Routine Given 09/05/2017 10:25 AM EST 5 mg prochlorperazine (COMPAZINE) injection 10 mg 10 mg, Intravenous, EVERY 6 HOURS PRN, Starting on Sun09/04/17 at 2215, Until Sun09/05/17 at 1300, Nausea, Vomiting, If multiple antiemetics are ordered, use ondansetron first. If ondansetron ineffective use prochlorperazine. , Recovery (Recovery-Hospital Unit), Routine prochlorperazine (COMPAZINE) tablet 10 mg 10 mg, Oral, EVERY 6 HOURS PRN, Starting on Sun09/04/17 at 2215, Until Sun09/05/17 at 1300, Nausea, Vomiting, If multiple antiemetics are ordered, use ondansetron first. If ondansetron ineffective use prochlorperazine. PO Preferred. If patient unable to take PO, may give IV if ordered., Recovery (Recovery-Hospital Unit), Routine sodium chloride 0.9 % flush 5 mL 5 mL, Intravenous, 2 TIMES DAILY, First dose on Sun09/04/17 at 2245, Until Discontinued, Recovery (Recovery-Hospital Unit), Routine Given 09/05/2017 1:00 AM EST 5 mLs documented in this encounter Active and Recently Administered Medications Times are shown in EST. Scheduled Medication Order 09/03/2017 09/04/2017 09/05/2017 acetaminophen (TYLENOL) tablet 1,000 mg (CANCELED) 1,000 mg, Oral, EVERY 6 HOURS SCHEDULED, First dose on Sun09/04/17 at 1915, Until Discontinued, Do not exceed 4,000 mg in 24 hours, Routine 2023 (Given - Provider: Crystal Rivas RN) 0235 (Given - Provider: Hortencia Crum RN) acetaminophen (TYLENOL) tablet 1,000 mg 1,000 mg, Oral, EVERY 6 HOURS SCHEDULED, First dose (after last modification) on Sun09/05/17 at 0900, Until Discontinued, Do not exceed 4,000 mg in 24 hours, Routine 0837 (Given - Provid er: Makenna Hsu RN) calcium citrate (CALCITRATE) tablet 950 mg(Linked Group 1) 950 mg, Oral, 3 TIMES DAILY, First dose on Sun09/04/17 at 2245, Until Discontinued, Routine 0100 (Given - Provid er: Hortencia Crum RN)0837 (Given - Provider: Makenna Hsu RN) cholecalciferol (Vitamin D3) tablet 800 Units(Linked Group 1) 800 Units, Oral, 3 TIMES DAILY, First dose on Sun09/04/17 at 2245, Until Discontinued, Routine 0100 (Given - Provid er: Hortencia Crum RN)0840 (Given - Provider: Makenna Hsu RN) hydroCHLOROthiazide (HYDRODIURIL) tablet 12.5 mg 12.5 mg, Oral, DAILY, First dose on Sun09/05/17 at 0900, Until Discontinued, Routine 0900 (Not Given - Provider: Makenna Hsu RN - Reason: Patient/family refused) ibuprofen (ADVIL;MOTRIN) tablet 600 mg 600 mg, Oral, EVERY 6 HOURS SCHEDULED, First dose (after last modification) on Sun09/05/17 at 0815, Until Discontinued, Do not administer with ketorolac, Routine 0839 (Given - Provid er: Makenna Hsu RN) lisinopril (PRINIVIL;ZESTRIL) tablet 20 mg 20 mg, Oral, DAILY, First dose on Sun09/05/17 at 0900, Until Discontinued, Routine 0838 (Given - Provid er: Makenna Hsu RN) meTOPROLOL succinate (TOPROL-XL) XL tablet 100 mg 100 mg, Oral, DAILY, First dose on Sun09/05/17 at 0900, Until Discontinued, DO NOT CRUSH OR OPEN, Routine 0838 (Given - Provid er: Makenna Hsu RN) ondansetron (ZOFRAN) injection 4 mg (COMPLETED) 4 mg, Intravenous, ONCE, 1 dose, On Sun09/04/17 at 1300, Day of Surgery (Day of Procedure) 1241 (Given - Provider: Pratibha Dubois RN) sodium chloride 0.9 % flush 5 mL 5 mL, Intravenous, 2 TIMES DAILY, First dose on Sun09/04/17 at 2245, Until Discontinued, Recovery (Recovery-Hospital Unit), Routine 0100 (Given - Provid er: Hortencia Crum RN)0900 (Due) Continuous Medication Order 09/03/2017 09/04/2017 09/05/2017 lactated Ringers infusion 1,000 mL (CANCELED) 1,000 mL, at 100 mL/hr, Intravenous, CONTINUOUS, Starting on Sun09/04/17 at 1915, Until Sun09/05/17 at 0758, Recovery (Recovery-Hospital Unit) 2144 (New Bag - Provider: Crystal Rivas RN) morphine 1 mg/mL HELP DESK OPERATOR 50 mL (CANCELED) Intravenous, HELP DESK OPERATOR ONLY, Starting on Sun09/04/17 at 2100, Until Sun09/05/17 at 0758 2100 (New Syringe/Cartridge - Provider: Yesenia Monteiro RN) PRN Medication Order 09/03/2017 09/04/2017 09/05/2017 BUpivacaine-EPINEPHrine 0.25 %-1:200,000 injection (CANCELED) ONCE PRN, Starting on Sun09/04/17 at 1518, Until Sun09/05/17 at 1300, Intra-Operative (Intra-Procedure), Routine 151 (Given - Provider: Yanet Trujillo MD) hydrALAZINE (APRESOLINE) injection 5 mg 5 mg, Intravenous, EVERY 6 HOURS PRN, Starting on Sun09/04/17 at 2225, Until Sun09/05/17 at 1300, High Blood Pressure, for SBP >160. Hold for HR >90., Can give additional 5mg in 30 min if SBP remains >160 and HR is <90. HYDROmorphone (DILAUDID) injection 0.4-0.6 mg (CANCELED) 0.4-0.6 mg, Intravenous, EVERY 5 MIN PRN, Starting on Sun09/04/17 at 1854, Until Sun09/04/17 at 2159, Pain, Give 0.4 mg every 5 minutes PRN for mild to moderate pain (1-5) Give 0.6 mg every 5 minutes PRN for moderate to severe pain (6-10). Hold for respiratory rate less than 10 per minute. Maximum dose 4 mg over one hour. If multiple pain medications are ordered, start with hydromorphone or morphine and use fentanyl for breakthrough pain., PACU Recovery, Routine 1939 (Given - Provider: Crystal Rivas RN)1945 (Given - Provider: Crystal Rivas RN)1956 (Given - Provider: Crystal Rivas RN)2006 (Given - Provider: Crystal Rivas RN)2013 (Given - Provider: Crystal Rivas RN)2026 (Given - Provider: Crystal Rivas RN)2036 (Given - Provider: Crystal Rivas RN) HYDROmorphone (DILAUDID) tablet 2 mg (CANCELED) 2 mg, Oral, EVERY 4 HOURS PRN, Starting on Sun09/04/17 at 1856, Until Sun09/05/17 at 0758, Pain, Routine 2022 (Given - Provider: Crystal Rivas RN) lidocaine (XYLOCAINE) 10 mg/mL (1 %) injection 3 mg 3 mg (0.3 mL), Subcutaneous, ONCE PRN, 1 dose, Starting on Sun09/04/17 at 2215, Until Sun09/05/17 at 1300, for discomfort with PIV insertion, Recovery (Recovery-Hospital Unit), Routine naloxone (NARCAN) injection 0.2 mg 0.2 mg, Intravenous, EVERY 1 MIN PRN, Starting on Sun09/04/17 at 2041, Until Sun09/05/17 at 1300, Opioid Reversal, May repeat every 60 seconds to increase respiratory rate. DO NOT exceed 2 mg total dose. Per HELP DESK OPERATOR order., Routine ondansetron (ZOFRAN) injection 4 mg (CANCELED) 4 mg, Intravenous, EVERY 8 HOURS PRN, Starting on Sun09/04/17 at 1219, Until Sun09/04/17 at 2216, Nausea 1419 (Given - Provider: Pratibha Dubois RN - Comment: Give additional dose of zofran per Dr. Navarro.) ondansetron (ZOFRAN-ODT) oral disintegrating tablet 4 mg 4 mg, Oral, EVERY 8 HOURS PRN, Starting on Sun09/04/17 at 2215, Until Sun09/05/17 at 1300, Nausea, Routine 1025 (Given - Provid er: Makenna Hsu RN) oxyCODONE (ROXICODONE) immediate release tablet 5 mg 5 mg, Oral, EVERY 4 HOURS PRN, Starting on Sun09/05/17 at 0757, Until Sun09/05/17 at 1300, Pain, Routine 1025 (Given - Provid er: Makenna Hsu RN) prochlorperazine (COMPAZINE) injection 10 mg(Linked Group 2) 10 mg, Intravenous, EVERY 6 HOURS PRN, Starting on Sun09/04/17 at 2215, Until Sun09/05/17 at 1300, Nausea, Vomiting, If multiple antiemetics are ordered, use ondansetron first. If ondansetron ineffective use prochlorperazine. , Recovery (Recovery-Hospital Unit), Routine prochlorperazine (COMPAZINE) tablet 10 mg(Linked Group 2) 10 mg, Oral, EVERY 6 HOURS PRN, Starting on Sun09/04/17 at 2215, Until Sun09/05/17 at 1300, Nausea, Vomiting, If multiple antiemetics are ordered, use ondansetron first. If ondansetron ineffective use prochlorperazine. PO Preferred. If patient unable to take PO, may give IV if ordered., Recovery (Recovery-Hospital Unit), Routine sodium chloride 0.9 % flush 5-20 mL 5-20 mL, Intravenous, EVERY 1 MIN PRN, Starting on Sun09/04/17 at 2215, Until Sun09/05/17 at 1300, flush, Flush pertains to all indwelling lines. Flush per protocol found in the job aid using the link provided on this medication record., Recovery (Recovery-Hospital Unit), Routine Linked Groups Order Group 1: calcium citrate (CALCITRATE) tablet 950 mgJump to med 950 mg, Oral, 3 TIMES DAILY, First dose on Sun09/04/17 at 2245, Until Discontinued, Routine And cholecalciferol (Vitamin D3) tablet 800 UnitsJump to med 800 Units, Oral, 3 TIMES DAILY, First dose on Sun09/04/17 at 2245, Until Discontinued, Routine Group 2: prochlorperazine (COMPAZINE) tablet 10 mgJump to med 10 mg, Oral, EVERY 6 HOURS PRN, Starting on Sun09/04/17 at 2215, Until Sun09/05/17 at 1300, Nausea, Vomiting, If multiple antiemetics are ordered, use ondansetron first. If ondansetron ineffective use prochlorperazine. PO Preferred. If patient unable to take PO, may give IV if ordered., Recovery (Recovery-Hospital Unit), Routine Or prochlorperazine (COMPAZINE) injection 10 mgJump to med 10 mg, Intravenous, EVERY 6 HOURS PRN, Starting on Sun09/04/17 at 2215, Until Sun09/05/17 at 1300, Nausea, Vomiting, If multiple antiemetics are ordered, use ondansetron first. If ondansetron ineffective use prochlorperazine. , Recovery (Recovery-Hospital Unit), Routine documented in this encounter Care Teams Rivet Hole Puncher Relationship Specialty Start Date End Date Yoni Ramírez MD [address] [place] [id number] PCP - General 07/05/10 documented as of this encounter
--- OUTSIDE RECORDS SUMMARY | 2024-07-31 18:45 | XMS_ITS | Encounter Summary ---
Author Organization [facility] [place] [address] Care Team Providers Care Report Specialist Name Role Phone Yoni Ramírez MD Primary Care Provider Encounter Details Date Type Department Care Team (Late st Contact Info) Description 10/08/2020 Ancillary Procedure Radiology Library at [facility] [address] [place] [phone] Yoni Ramírez MD [address] [phone] Social History Tobacco Use Types Packs/Day Years [...] AM EST Office Visit Hematology/Oncolog y at [address] [phone] Deyvi Ibrahim MD [facility] HEMATOLOGY [place] [address] Isabel Berry APRN [facility] [place] [address] 08/05/2024 12:00 PM EST Infusion Hematology Oncology at [address] [phone] 08/27/2024 10:00 AM EST Hospital En[place] [phone] Gulshan Elder MD [facility] [place] [address] 08/27/2024 10:00 AM EST Anesthesia [place] [phone] Swati Gonzalez MD [facility] [place] [address] 08/27/2024 10:00 AM EST - 08/27/2024 11:00 AM EST Surgery [place] [phone] Gulshan Elder MD [facility] [address] EGD, UPPER GI ENDOSCOPY (WRVU 2.09) Scheduled [...] Diagnosis Comments FILM LIBRARY STORAGE ONLY CT ABDOMEN AND PELVIS Routine 10/08/2020 12:00 AM EST documented in this encounter Results * Film Library- Storage Only CT Abdomen & Pelvis (10/08/2020 12:00 AM EST) Narrative RAD - 09/22/2021 9:12 AM EST This exam is auto-finalizing. It's purpose is for storage only. Yoni Ramírez MD IMG FILM LIBRARY ORD ERABLES [place], [place] documented in this encounter Visit Diagnoses Not on filedocumented in this encounter Care Teams Report Specialist Relationship Specialty Start Date End Date Yoni Ramírez MD [address] [place] [id number] PCP - General 07/05/10 documented as of this encounter
--- OUTSIDE RECORDS SUMMARY | 2024-07-31 18:45 | XMS_ITS | Encounter Summary ---
Author Organization [facility] [place] [address] Care Team Providers Care Supervisor Landscape Name Role Phone Yoni Ramírez MD Primary Care Provider [phone] Encounter Details Date Type Department Care Team (Latest Contact Info) Description 05/30/2017 12:15 PM EDT Laboratory Appointment Lab [address] [place] [phone] Elevated calcitonin level; Hypertension, unspecified type; Hyperparathyroidism , primary Social History Tobacco Use Types Packs/Day [...] EST Office Visit Hematology/Oncolog y at [address] [phone] Deyvi Ibrahim MD [facility] [place] [address] Isabel Berry APRN [facility] [place] [address] 08/05/2024 12:00 PM EST Infusion Hematology Oncology at [address] [phone] 08/27/2024 10:00 AM EST Hospital Encounter [place] [phone] Gulshan Elder MD [facility] [place] [address] 08/27/2024 10:00 AM EST Anesthesia [place] [phone] Swati Gonzalez MD [facility] [place] [address] 08/27/2024 10:00 AM EST - 08/27/2024 11:00 AM EST [place] [phone] Gulshan Elder MD [facility] [place] [address] EGD, UPPER GI ENDOSCOPY (WRVU 2.09) Scheduled [...] Procedure Name Priority Date/Time Associated Diagnosis Comments MOLECULAR PATHOLOGY HOLD Routine 05/30/2017 12:33 PM EDT Elevated calcitonin level PTH Routine 05/30/2017 12:33 PM EDT Hyperparathyroidism , primary MISC SENDOUT Routine 05/30/2017 12:33 PM EDT [facility] TEST-QUEST Routine 05/30/2017 12:33 PM EDT CALCIUM IONIZED SERUM Routine 05/30/2017 12:33 PM EDT Hyperparathyroidism , primary CREATININE Routine 05/30/2017 12:33 PM EDT Hypertension, unspecified type VITAMIN D, 25-HYDROXY Routine 05/30/2017 12:33 PM EDT Hyperparathyroidism , primary PROLACTIN Routine 05/30/2017 12:33 PM EDT Hyperparathyroidism , primary CALCIUM Routine 05/30/2017 12:33 PM EDT Hyperparathyroidism , primary [facility] Rout[facility] 05/30/2017 11:40 AM EDT Hyperparathyroidism , primary [facility] TEST-WEIR Routine 05/30/2017 1 1:40 AM EDT GOLD TUBE HOLD Routine 05/30/2017 11:40 AM EDT documented in this encounter Results * [facility] [employer] Test-Quest (05/30/2017 12:33 PM EDT) [facility] [employer] FLEXITEST 2 [facility] Comment: FLEXITEST 2 TESTS RESULTS--------UNITS--REF. RANGE--- Result ?SEE NOTE NEGATIVE; NO CLINICALLY SIGNIFICANT VARIANTS IDENTIFIED Reviewer ?SEE NOTE Laboratory testing supervised and results monitored by Jennifer Quintana MD, FCAP, [facility]. Resource ?SEE NOTE Visit http://www.Novadiol/ for answers to frequently asked questions, physician information, patient materials, and testing resources. Call 8-630-BEMY-INFO ( ) for genetic counseling consultations, Regional Sales Manager pre-authorization services, links to patient genetic counseling, and to order additional kits. Method and Limitation ? SEE NOTE Methodology: In this assay, sheared genomic DNA fragments representing the entire coding region and the splice junction sites of the RET gene are selectively enriched through exon capture, and then subjected to nucleotide sequence analysis on a massively parallel sequencing platform. Gene dosage is assessed by bioinformatic analysis of sequencing reads and confirmed as necessary by a custom targeted microarray. The array is designed with a dense collection of probes spanning the entirety of each gene and flanking regions. Genome-wide normalization probes and control replicates are also included. Samples are compared to a normal pooled control following a standard array comparative genomic hybridization (CGH) procedure. Variants are classified under the guidance of the 5-tier system recommended by the [employer] (PMID 08319272). The following NCBI reference transcript sequence was utilized for analysis: RET (NM 516632.4). Limitations: This assay cannot detect variants affecting unexamined gene regions (e.g. deep intronic), nor variants in other unlisted genes. In addition, the effect of rare or novel variants on mRNA splicing, protein synthesis, and/or protein function may remain unclear. Although rare, false positive or false negative results may occur. Results should be interpreted in the context of clinical findings, relevant history, and other laboratory data. This assay does not analyze all genes associated with hereditary cancer. In some situations, additional genetic testing may be appropriate. Additional Information ?SEE NOTE Benign and likely benign variants with no known clinical significance are reported only by request. If a variant is reclassified and this has clinical implications, [facility] will endeavor to contact the ordering provider. Providers may contact [employer] Client [facility] at [phone] ([phone]) for assistance with result interpretation, questions about variant classification, or to discuss additional testing. This test was developed and its analytical performance characteristics have been determined by [facility]. It has not been cleared or approved by FDA. This assay has been validated pursuant to the CLIA regulations and is used for clinical purposes. Comments ?SEE NOTE Test performed by: ? [facility] ? [address] ? [place] [address] ? Phone: ??[phone] Director: ??Emmanuel Austin M.D. Test Reported by [employer], [facility], [address] [place], [place] Jason Fox M.D., Ph.D., Director of Laboratories , CLIA [id number] Corrected report.Testing for Rtt Sequencing,Deletion and duplication and also testing for MEN1 See scan report 06/25/2017 FLEXITEST 2 TESTS RESULTS--------UNITS--REF. RANGE--- Result ?SEE NOTE NEGATIVE; NO CLINICALLY SIGNIFICANT VARIANTS IDENTIFIED Reviewer ?SEE NOTE Laboratory testing supervised and results monitored by Jennifer Quintana MD, [facility]. Resource ?SEE NOTE Visit http://www.Mgv.Evogen/ for answers to frequently asked questions, physician information, patient materials, and testing resources. Call 4-423-IOEYENOVIXINFO ( ) for genetic counseling consultations, Regional Sales Manager pre-authorization services, links to patient genetic counseling, and to order additional kits. Method and Limitation ? SEE NOTE Methodology: In this assay, sheared genomic DNA fragments representing the entire coding region and the splice junction sites of the RET gene are selectively enriched through exon capture, and then subjected to nucleotide sequence analysis on a massively parallel sequencing platform. Gene dosage is assessed by bioinformatic analysis of sequencing reads and confirmed as necessary by a custom targeted microarray. The array is designed with a dense collection of probes spanning the entirety of each gene and flanking regions. Genome-wide normalization probes and control replicates are also included. Samples are compared to a normal pooled control following a standard array comparative genomic hybridization (CGH) procedure. Variants are classified under the guidance of the 5-tier system recommended by the [employer] [place] (PMID 73621637). The following NCBI reference transcript sequence was utilized for analysis: RET (NM 208520.4). Limitations: This assay cannot detect variants affecting unexamined gene regions (e.g. deep intronic), nor variants in other unlisted genes. In addition, the effect of rare or novel variants on mRNA splicing, protein synthesis, and/or protein function may remain unclear. Although rare, false positive or false negative results may occur. Results should be interpreted in the context of clinical findings, relevant history, and other laboratory data. This assay does not analyze all genes associated with hereditary cancer. In some situations, additional genetic testing may be appropriate. Additional Information ?SEE NOTE Benign and likely benign variants with no known clinical significance are reported only by request. If a variant is reclassified and this has clinical implications, [facility] will endeavor to contact the ordering provider. Providers may contact [employer] Client [facility] at [employer] ([phone]) for assistance with result interpretation, questions about variant classification, or to discuss additional testing. This test was developed and its analytical performance characteristics have been determined by [facility]. It has not been cleared or approved by FDA. This assay has been validated pursuant to the CLIA regulations and is used for clinical purposes. Comments ?SEE NOTE Test performed by: ? [facility] ? [address] ? [place] [address] ? Phone: ??[phone] Director: ??Emmanuel Austin M.D. Test Reported by Indira Limon, [employer] [facility], [address] [place], [place] Jason Fox M.D., Ph.D., Director of Laboratories , [facility] [id number] Corrected from FLEXITEST 2 [NA] on 06/25/17 12:43 by Christy Singh Specimen of unknown material (specimen) Other / Unknown 05/30/2017 12:33 PM EDT 06/06/2017 3:06 PM EDT Narrative Resulting Agency Comment Spec In Lab Karishma Maurer MD LAB SEND OUT KYLIE HUDSON Performing Organization Address City/[facility]/ZIP Co de Phone Number [facility] [place] [address] * Misc Sendout (05/30/2017 12:33 PM EDT) [facility] Sendout See Note [facility] Comment: The ordered test is: ret Performed by: order error Specimen of unknown material (specimen) Other / Unknown 05/30/2017 12:33 PM EDT 06/06/2017 11:33 AM EDT Karishma Maurer MD LAB SEND OUT KYLIE HUDSON Performing Organization Address City/[facility]/ZIP Co de Phone Number [facility] [place] [address] * Prolactin (05/30/2017 12:33 PM EDT) Prolactin 5.7 4.0 - 15.2 ng/mL [facility] Blood specimen (specimen) 05/30/2017 12:33 PM EDT 05/30/2017 12:41 PM EDT Narrative Resulting Agency Comment Spec In Lab Karishma Maurer MD CHEMISTRY ORDERAB LES Performing Organization Address [facility] Co de Phone Number [facility] [place] [address] * (ABNORMAL) Calcium, Ionized, Serum (05/30/2017 12:33 PM EDT) Ionized Calcium 1.44(H) 1.15 - 1.33 mmol/L [facility] Comment: Note: Total bilirubin higher than 20 mg/dL may lead to falsely low ionized calcium. Blood specimen (specimen) 05/30/2017 12:33 PM EDT 05/30/2017 12:41 PM EDT Narrative Resulting Agency Comment Spec In Lab Karishma Maurer MD CHEMISTRY ORDERAB LES Performing Organization Address [facility] Co de Phone Number [facility] [place] [address] * (ABNORMAL) Vitamin D, 25-Hydroxy (05/30/2017 12:33 PM EDT) Vitamin D Total 25 OH 29(L) 30 - 100 ng/mL [facility] Comment: Deficient <10 ng/mL Insufficient 10 to 29 ng/mL Sufficient 30 to 100 ng/mL Potential Intoxication >100 ng/mL According to the US National Osteoporosis Foundation, Vitamin D concentrations >30 ng/mL are sufficient to protect bone health. ??The National Kidney Foundation has similarly stated that patients with Vitamin D concentrations <30ng/mL should be considered to be insufficient or deficient. http://[employer] Business Plan.Evogen/nkf-guidelines http://[employer] Business Plan.Evogen/nejm-VitD The IDS iSYS Vitamin D Immunoassay detects both 25-OH Vitamin D2 and 25-OH Vitamin D3, but only a total Vitamin D concentration is reported. Blood specimen (specimen) 05/30/2017 12:33 PM EDT 05/30/2017 2:53 PM EDT Narrative Resulting Agency Comment Spec In Lab Karishma Maurer MD CHEMISTRY ORDERAB LES Performing Organization Address City/[facility]/ZIP Co de Phone Number [facility] [place] [address] * (ABNORMAL) PTH (05/30/2017 12:33 PM EDT) Parathyroid Hormone 131(H) 15 - 65 pg/mL [facility] Blood specimen (specimen) 05/30/2017 12:33 PM EDT 05/30/2017 12:41 PM EDT Narrative Resulting Agency Comment Spec In Lab Karishma Maurer MD CHEMISTRY ORDERAB LES Performing Organization Address [facility] Co de Phone Number [facility] [place] [address] * (ABNORMAL) Calcium (05/30/2017 12:33 PM EDT) Calcium 11.8(H) 8.5 - 10.5 mg/dL [facility] Blood specimen (specimen) 05/30/2017 12:33 PM EDT 05/30/2017 12:41 PM EDT Narrative Resulting Agency Comment Spec In Lab Karishma Maurer MD CHEMISTRY ORDERAB LES Performing Organization Address [facility] Co de Phone Number [facility] [place] [address] * Creatinine (05/30/2017 12:33 PM EDT) Creatinine 0.99 0.80 - 1.50 mg/dL [facility] Est Glomerular Filtration Rate >60 >=60 [facility] Comment: The reported eGFR should be multiplied by 1.2 for patients. The MDRD is not an appropriate measure of renal function for patients with body mass extremes or in patients with acute kidney failure. http://[employer] Business Plan.Evogen/DHnkdep http://[employer] Business Plan.Evogen/DHMCnkf Blood specimen (specimen) 05/30/2017 12:33 PM EDT 05/30/2017 12:41 PM EDT Narrative Resulting Agency Comment Spec In Lab Karishma Maurer MD CHEMISTRY ORDERAB LES Performing Organization Address City/[facility]/ZIP Co de Phone Number [facility] [place] [address] * Molecular Pathology Hold (05/30/2017 12:33 PM EDT) Molecular Pathology Hold Complete [facility] Blood specimen (specimen) 05/30/2017 12:33 PM EDT 05/30/2017 5:06 PM EDT Narrative Resulting Agency Comment Spec In Lab Karishma Maurer MD MOLECULAR ORDERAB LES Performing Organization Address [facility] Co de Phone Number [facility] [place] [address] * Gold Tube HOLD (05/30/2017 11:40 AM EDT) [facility] Gold Hold Sample in lab. [facility] Blood specimen (specimen) No Charge / Unknown 05/30/2017 11:40 AM EDT 05/30/2017 1:19 PM EDT Karishma Maurer MD CHEMISTRY ORDERAB LES Performing Organization Address [facility] Co de Phone Number [facility] [place] [address] * [facility] Test-Weir (05/30/2017 11:40 AM EDT) [facility] Test ? Result ? Flag ??Unit ?? RefValue --- Calcitonin, FNAB, Lymph Node ? <5.0 ? pg/mL ?Calcitonin values <5.0 pg/mL suggest the lymph node ?does not contain medullary thyroid carcinoma. ??This ?result is dependent on accurate sampling and a ?total needle wash volume of <=1.5 mL. ??This test ?should be interpreted in the context of the clinical ?presentation, imaging and cytology findings. ??If the ?results are discordant with the clinical presentation, ?a sampling error at the time of biopsy should be ?considered. ? --ADDITIONAL INFORMATION-------- ?The testing method is an immunoenzymatic assay ?manufactured by [employer] and performed on the ?Sealed 2000. ?Values obtained with different assay methods or kits ?may be different and cannot be used interchangeably. ?Test results cannot be interpreted as absolute ?evidence for the presence or absence of ?malignant disease. ??Site ? Left ?Test Performed by: ?[facility] ?[address] [place] [address] [facility] Body fluid specimen (specimen) Other / Unknown 05/30/2017 11:40 AM EDT 05/30/2017 1:20 PM EDT Narrative Resulting Agency Comment Spec In Lab Karishma Maurer MD LAB SEND OUT KYLIE HUDSON [facility] [place] [address] * Miscellaneous Lab request (05/30/2017 11:40 AM EDT) Label Request received in lab. [facility] Specimen of unknown material (specimen) 05/30/2017 11:40 AM EDT 05/30/2017 12:22 PM EDT Narrative Resulting Agency Comment Spec In Lab Karishma Maurer MD LAB SEND OUT KYLIE HUDSON [facility] [place] [address] documented in this encounter Visit Diagnoses Diagnosis Elevated calcitonin level Hypertension, unspecified type Hyperparathyroidism, primary Primary hyperparathyroidism Abnormal CT of the abdomen Nonspecific (abnormal) findings on radiological and other examination of abdominal area, including retroperitoneum Esophagitis Esophagitis, unspecified Gastroesophageal reflux disease with esophagitis, unspecified whether hemorrhage Colitis Other and unspecified noninfectious gastroenteritis and colitis Screen for colon cancer Special screening for malignant neoplasms, colon documented in this encounter Care Teams Supervisor Landscape Relationship Specialty Start Date End Date Yoni Ramírez MD [address] [place] [phone] PCP - General 07/05/10 documented as of this encounter
--- OUTSIDE RECORDS SUMMARY | 2024-07-31 18:45 | XMS_ITS | Encounter Summary ---
Author Organization [facility] [place] [address] Care Team Providers Care Roller Varnisher Name Role Phone Yoni Ramírez MD Primary Care Provider Encounter Details Date Type Department Care Team (Late st Contact Info) Description 08/22/2017 Telephone [place] [phone] Nora Cline Social History Tobacco Use Types Packs/Day Years [...] encounter Miscellaneous Notes * Telephone Encounter - Nora Cline - 08/22/2017 9:[address] Ramírez's office called to inform Dr Maurer that Jeff is off his warfarin and ready to be scheduled for surgery. documented in this encounter Plan of Treatment Upcoming Encounters Date Type Department Care Team (Latest Contact Info) Description 08/05/2024 11:30 AM EST Office Visit Hematology/Oncolog y at [address] [phone] Deyvi Ibrahim MD [facility] [place] [address] Isabel Berry APRN [facility] [place] [address] 08/05/2024 12:00 PM EST Infusion Hematology Oncology at [address] [phone] 08/27/2024 10:00 AM EST Hospital Encounter [place] [phone] Gulshan Elder MD [facility] [place] [address] 08/27/2024 10:00 AM EST Anesthesia Event [place] [phone] Swati Gonzalez MD [facility] [place] [address] 08/27/2024 10:00 AM EST - 08/27/2024 11:00 AM EST Surgery [place] [phone] Gulshan Elder MD [facility] [place] [place] [address] EGD, UPPER GI ENDOSCOPY (WRVU 2.09) Scheduled [...] on filedocumented in this encounter Care Teams Roller Varnisher Relationship Specialty Start Date End Date Yoni Ramírez MD [address] [place] [id number] PCP - General 07/05/10 documented as of this encounter
--- OUTSIDE RECORDS SUMMARY | 2024-07-31 18:45 | XMS_ITS | Encounter Summary ---
Author Organization [facility] [place] [address] Care Team Providers Care Magnetic Prospecting Supervisor Name Role Phone Yoni Ramírez MD Primary Care Provider [phone] Encounter Details Date Type Department Care Team (Late st Contact Info) Description 09/07/2017 Telephone [place] [address] Karishma Maurer MD [facility] [place] [address] Social History Tobacco Use Types Packs/Day Years [...] encounter Miscellaneous Notes * Telephone Encounter - Karishma Maurer MD - 09/07/2017 5:21 PM EST I called Mr. Jeff Arreguin today to discuss the results of his pathology. Specifically, this demonstrated A - Right upper parathyroid gland for frozen section: Enlarged parathyroid gland. (see Discussion) B - Right lower parathyroid versus lymph node, excision: Parathyroid tissue. C - Left cervical thymus, excision: - Parathyroid tissue. - Involuted thymus. D - Central neck contents, excision: Four benign lymph nodes. He is doing well. His voice sounds normal. He is not complaining of perioral numbness/tingling, numbness/tingling in the hands, or muscle spasms. He will taper off his calcium supplementation. He said he notices right off the bat that he feels so much better. I answered his questions, and we willdiscuss further at his regularly-scheduled postoperative follow up appointment. documented in this encounter Plan of Treatment Upcoming Encounters Date Type Department Care Team (Latest Contact Info) Description 08/05/2024 11:30 AM EST Office Visit Hematology/Oncolog y at [address] [phone] Deyvi Ibraihm MD [facility] [address] [place] [address] Isabel Berry APRN [facility] [place] [address] 08/05/2024 12:00 PM EST Infusion Hematology Oncology at [address] [phone] 08/27/2024 10:00 AM EST Hospital Encounter [place] [phone] Gulshan Elder MD [facility] [place] [address] 08/27/2024 10:00 AM EST Anesthesia [place] [phone] Swati Gonzalez MD [facility] [place] [address] 08/27/2024 10:00 AM EST - 08/27/2024 11:00 AM EST Surgery [place] [phone] Gulshan Elder MD [facility] [place] [address] EGD, UPPER GI ENDOSCOPY (WRVU 2.09) Scheduled [...] on filedocumented in this encounter Care Teams Magnetic Prospecting Supervisor Relationship Specialty Start Date End Date Yoni Ramírez MD [address] [place] [address] PCP - General 07/05/10 documented as of this encounter
--- OUTSIDE RECORDS SUMMARY | 2024-07-31 18:45 | XMS_ITS | Encounter Summary ---
Author Organization [facility] [place] [address] Care Team Providers Care Pile Operator Name Role Phone Yoni Ramírez MD Primary Care Provider [phone] Encounter Details Date Type Department Care Team (Latest Contact Info) Description 02/23/2017 - 02/23/2017 11:59 PM EDT Hospital Encounter Radiology Library [place] [facility] [address] [place] [address] Karishma Maurer MD [facility] [place] [address] Discharge Disposition: Home Social History Tobacco Use [...] Sig Dispensed Refills Start Date End Date lisinopril (PRINIVIL;ZESTRIL) 10 mg Tablet Take 20 mg by mouth daily. 05/09/2021 ondansetron (ZOFRAN ODT) 4 mg oral disintegrating tablet Take 1-2 tablets by mouth every 8 hours as needed for Nausea. 12 tablet 1 03/26/2014 05/21/2017 HYDROmorphone (DILAUDID) 2 mg tablet Take 1 tablet by mouth every 4 hours as needed for Pain. No driving, no alcohol 5 tablet 0 03/26/2014 05/21/2017 documented as of this encounter Plan of Treatment Upcoming Encounters Date Type Department Care Team (Latest Contact Info) Description 08/05/2024 11:30 AM EST Office Visit Hematology/Oncolog y at [address] [phone] Deyvi Ibrahim MD [facility] DR HEMATOLOGY [place] [address] Isabel Berry APRN [facility] [place] [address] 08/05/2024 12:00 PM EST Infusion Hematology Oncology at [address] [phone] 08/27/2024 10:00 AM EST Hospital Encounter [place] [phone] Gulshan Elder MD [facility] [place] [address] 08/27/2024 10:00 AM EST Anesthesia [place] [phone] Swati Gonzalez MD [facility] [place] [address] 08/27/2024 10:00 AM EST - 08/27/2024 11:00 AM EST [place] [phone] Gulshan Elder MD [facility] [place] [address] EGD, UPPER GI ENDOSCOPY (WRVU 2.09) Scheduled [...] Comments FILM LIBRARY STORAGE ONLY CT CHEST Routine 02/23/2017 12:00 AM EDT documented in this encounter Results * Film Library- Storage Only CT Chest (02/23/2017 12:00 AM EDT) Narrative [facility] - 05/23/2017 8:45 PM EDT This exam is for storage only and is auto-finalizing. Karishma Maurer MD IMG FILM LIBRARY ORDERABLES Performing Organization Address City/State/[facility] Co de Phone Number [place], [place] documented in this encounter Visit Diagnoses Not on filedocumented in this encounter Care Teams Pile Operator Relationship Specialty Start Date End Date Yoni Ramírez MD [address] [place] [address] PCP - General 07/05/10 documented as of this encounter
--- OUTSIDE RECORDS SUMMARY | 2024-07-31 18:45 | XMS_ITS | Encounter Summary ---
Author Organization [facility] [place] [address] Care Team Providers Care Mathematical Engineer Name Role Phone Yoni Ramírez MD Primary Care Provider [phone] Encounter Details Date Type Department Care Team (Late st Contact Info) Description 09/23/2021 [place] [phone] Ino Enamorado MD [facility] [place] [address] Social History Tobacco Use Types Packs/Day Years [...] Telephone Encounter - Ino Enamorado MD - 09/23/2021 8:53 AM EST Called patient to review my opinion of his more recent CT imaging that was just sent for my review yesterday. Of note, patient was found with 397cc in his bladder this week and could not void, so Dr. Altman placed a catheter. Per an email from Dr. Altman, there was difficulty placing the catheter and the patient was quite uncomfortable, but ultimately the catheter was placed. On my telehealth visit with the patient on 05/09/21, I reviewed his 2017 CT which showed a 30-35cc prostate. Given his inconsistent issues with weak stream, anxiety, and pelvic pain, we decided to trypelvic floor PT and f/u around this time. Dr. Altman emailed me in June stating that his prostate was much larger on recent CT imaging and requested we proceed with a bladder outlet procedure because he was uncomfortable doing a TURP on this patient. I asked that the imaging be sent to [facility] for my review. The imaging was uploaded for my review yesterday 09/23/21. The recent CTs seem to show a 70-80cc prostate now but there appears to be asymmetrical and irregular growth of the right lobe into the bladder neck with thickening of the bladder at that area in my opinion. I emailed Dr. Altman to explain that I had some concern for possible bladder or prostate cancer causing the irregular growth. Since the patient will not undergo an office cystoscopy, I recommended that the patient be offered a diagnostic cysto in the OR with at least a TUR biopsy of this area. Dr. Altman explained that the patient would want a one and done procedure with a greenlight laser at the same time. On my call with the patient today and in an email to Dr. Altman on 09/22/21, I explained the issue with our waitlist for surgery and difficulty scheduling patients at [facility] right now. I explained the earliest we could get him in could be > 1 month. I recommended to the patient that he strongly consider a diagnostic cysto with biopsy in the OR with Dr. Altman if this could be done sooner there. Iexplained that this is because if it were some kind of cancer, I would not want to wait a month to diagnose it for fear of it delaying treatment. The patient stated that he was ammenable to having the cysto/bladderneck biopsy under anesthesia asa separate procedure if it could be done sooner with Dr. Altman. I will email Dr. Altman this update to see if the patient can get in for the biopsy in the next couple of weeks. I will continue to work to schedule a greenlight PVP as soon as we can at [facility] or [facility]. PLAN - Recommend repeat PSA - Recommend considering urine cytology - UCx - schedule a cysto, TURP and greenlight PVP as soon as we can at [facility] or [facility]. - But if cysto, bladder neck biopsy can be done sooner with Dr. Altman I would recommend that so asnot to delay his diagnosis Ino Enamorado MD 09/23/2021 1:21 PM documented in this encounter Plan of Treatment Upcoming Encounters Date Type Department Care Team (Latest Contact Info) Description 08/05/2024 11:30 AM EST Office Visit Hematology/Oncolog y at [address] [phone] Deyvi Ibrahim MD [facility] [place] [address] Isabel Berry APRN [facility] [place] [address] 08/05/2024 12:00 PM EST Infusion Hematology Oncology at [address] [phone] 08/27/2024 10:00 AM EST Hospital Encounter [place] [phone] Gulshan Elder MD [facility] [place] [address] 08/27/2024 10:00 AM EST Anesthesia [place] [phone] Swati Gonzalez MD [facility] [place] [address] 08/27/2024 10:00 AM EST - 08/27/2024 11:00 AM EST Surgery [place] [phone] Gulshan Elder MD [facility] [place] [address] EGD, UPPER GI ENDOSCOPY (WRVU 2.09) Scheduled [...] on filedocumented in this encounter Care Teams Mathematical Engineer Relationship Specialty Start Date End Date Yoni Ramírez MD [address] [place] [phone] PCP - General 07/05/10 documented as of this encounter
--- OUTSIDE RECORDS SUMMARY | 2024-07-31 18:45 | XMS_ITS | Encounter Summary ---
Author Organization [facility] [place] [address] Care Team Providers Care Strategic Sourcing Consultant Name Role Phone Yoni Ramírez MD Primary Care Provider Encounter Details Date Type Department Care Team (Latest Contact Info) Description 06/04/2017 - 06/04/2017 12:14 AM EDT Hospital Encounter Radiology Library at [facility] [address] [address] Karishma Maurer MD [facility] [place] [address] Discharge Disposition: Home Social History Tobacco Use [...] Dispensed Refills Start Date End Date HYDROmorphone (DILAUDID) 2 mg Tablet Take 2 mg by mouth as needed for Pain. 10/13/2021 lisinopril (PRINIVIL;ZESTRIL) 10 mg Tablet Take 20 mg by mouth daily. 05/09/2021 documented as of this encounter Plan of Treatment Upcoming Encounters Date Type Department Care Team (Latest Contact Info) Description 08/05/2024 11:30 AM EST Office Visit Hematology/Oncolog y at [address] [phone] Deyvi Ibrahim MD [facility] DR HEMATOLOGY [place] [address] Isabel Berry APRN [facility] [place] [address] 08/05/2024 12:00 PM EST Infusion Hematology Oncology at [address] [phone] 08/27/2024 10:00 AM EST Hospital Encounter [place] [phone] Gulshan Elder MD [facility] [place] [address] 08/27/2024 10:00 AM EST Anesthesia [place] [address] Swati Gonzalez MD [facility] DR ANESTHESI[place] [address] 08/27/2024 10:00 AM EST - 08/27/2024 11:00 AM EST Surgery [place] [phone] Gulshan Elder MD [facility] [place] [address] EGD, UPPER GI ENDOSCOPY (WRVU 2.09) Scheduled [...] Diagnosis Comments FILM LIBRARY STORAGE ONLY CT SPINE Routine 06/04/2017 12:00 AM EDT documented in this encounter Results * Film Library- Storage Only CT Spine (06/04/2017 12:00 AM EDT) Narrative [facility] - 06/04/2017 8:38 PM EDT This exam is for storage only and is auto-finalizing. Karishma Maurer MD IMG FILM LIBRARY ORDERABLES Performing Organization Address City/State/[facility] Co de Phone Number [place], [place] documented in this encounter Visit Diagnoses Not on filedocumented in this encounter Care Teams Strategic Sourcing Consultant Relationship Specialty Start Date End Date Yoni Ramírez MD [address] [place] [address] PCP - General 07/05/10 documented as of this encounter
--- OUTSIDE RECORDS SUMMARY | 2024-07-31 18:45 | XMS_ITS | Encounter Summary ---
Author Organization [facility] [place] [address] Care Team Providers Care Underwriting Director Name Role Phone Yoni Ramírez MD Primary Care Provider Encounter Details Date Type Department Care Team (Latest Contact Info) Description 05/24/2017 Multidisciplinary Ca re Committee [place] [address] Karishma Maurer MD [facility] [place] [address] Elevated calcitonin level Social History Tobacco Use Types Packs/Day Years [...] as of this encounter Progress Notes * Karishma Maurer MD - 05/24/2017 9:00 AM EDT Endocrine - Tumor Board Note Date Presented: 05/24/2017 Presenting Physician: Carly Maurer Diagnosis/Tumor Site: hyperparathyroidism; ? thyroid Is this Metastatic Disease: No Synopsis of History/HPI: 51 y/o M with longstanding nausea/vomiting and abdominal pain with hyperparathyroidism. Found to have elevated calcitonin in workup for possible MEN. Elevated CEA. Imaging: ultrasound consistent with right-sided parathyroid abnormality. OSH report described bilateral parathyroid abnormalities. Surgeon-performed ultrasound with ? Whether left-sided hypoechoic nodule is actually a lymph node Pathology/Histology: none Stage: N/A Clinical Data (Exams, Labs, etc.): Ref. Range 02/20/2017 16:50 02/20/2017 16:53 02/23/2017 00:00 05/21/2017 14:12 Calcium Latest Ref Range: 8.5 - 10.5 mg/dL 10.6 (H) CEA Latest Ref Range: <=3.8 ng/mL 7.1 (H) Calcitonin Lvl Latest Ref Range: <=10 pg/mL 22 (H) 36 (H) TSH Latest Ref Range: 0.27 - 4.20 mlU/ML 1.08 PTH Latest Ref Range: 15 - 65 pg/mL 138 (H) Molecular Pathology Results: N/A Clinical Trial Availability: N/A Options Discussed: ? Whether elevated calcitonin and CEA in the absence of thyroid nodules could represent MTC Recommendations: Ret testing. FNA of left-sided central neck nodule with calcitonin and PTH washoutand consider biopsy with PTH washout of right-sided nodule for confirmation. DISCLAIMER: The patient was discussed and the tumor board made recommendations but it is ultimatelyup to the treatment provider(s) and the patient to determine the patient???s care. documented in this encounter Plan of Treatment Upcoming Encounters Date Type Department Care Team (Latest Contact Info) Description 08/05/2024 11:30 AM EST Office Visit Hematology/Oncolog y at [address] [phone] Deyvi Ibrahim MD [facility] DR [place] [address] Isabel Berry APRN [facility] [place] [address] 08/05/2024 12:00 PM EST Infusion Hematology Oncology at [address] [phone] 08/27/2024 10:00 AM EST Hospital Encounter [place] [phone] Gulshan Elder MD [facility] [place] [address] 08/27/2024 10:00 AM EST Anesthesia Event [place] [phone] Swati Gonzalez MD [facility] [place] [address] 08/27/2024 10:00 AM EST - 08/27/2024 11:00 AM EST Surgery [place] [phone] Gulshan Elder MD [facility] [place] [address] EGD, UPPER GI ENDOSCOPY (WRVU 2.09) Scheduled [...] documented as of this encounter Results * Molecular Pathology Hold (05/30/2017 12:33 PM EDT) Molecular Pathology Hold Complete [facility] Blood specimen (specimen) 05/30/2017 12:33 PM EDT 05/30/2017 5:06 PM EDT Narrative Resulting Agency Comment Spec In Lab Karishma Maurer MD MOLECULAR ORDERAB LES [facility] [place] [address] documented in this encounter Visit Diagnoses Diagnosis Elevated calcitonin level Abnormal CT of the abdomen Nonspecific (abnormal) findings on radiological and other examination of abdominal area, including retroperitoneum Esophagitis Esophagitis, unspecified Gastroesophageal reflux disease with esophagitis, unspecified whether hemorrhage Colitis Other and unspecified noninfectious gastroenteritis and colitis Screen for colon cancer Special screening for malignant neoplasms, colon documented in this encounter Care Teams Underwriting Director Relationship Specialty Start Date End Date Yoni Ramírez MD [address] [place] [address] PCP - General 07/05/10 documented as of this encounter
--- OUTSIDE RECORDS SUMMARY | 2024-07-31 18:45 | XMS_ITS | Encounter Summary ---
Author Organization [facility] [place] [address] Care Team Providers Care Director Of Student Financial Services Name Role Phone Yoni Ramírez MD Primary Care Provider Encounter Details Date Type Department Care Team (Late st Contact Info) Description 04/05/2020 Ancillary Procedure Radiology Library at [facility] [address] [place] [address] Yoni Ramírez MD [address] [phone] Social History Tobacco Use Types Packs/Day Years [...] EST Office Visit Hematology/Oncolog y at [address] [phone] Deyvi Ibrahim MD [facility] HEMATOLOGY [place] [address] Isabel Berry APRN [facility] MEDICAL [place] [address] 08/05/2024 12:00 PM EST Infusion Hematology Oncology at [address] [phone] 08/27/2024 10:00 AM EST Hospital Encounter [place] [phone] Gulshan Elder MD [facility] [place] [address] 08/27/2024 10:00 AM EST Anesthesia [place] [phone] Swati Gonzalez MD [facility] [place] [address] 08/27/2024 10:00 AM EST - 08/27/2024 11:00 AM EST Surgery [place] [phone] Gulshan Elder MD [facility] [place] [address] EGD, UPPER GI ENDOSCOPY (WRVU 2.09) Scheduled [...] STORAGE ONLY CT ABDOMEN AND PELVIS Routine 04/05/2020 12:00 AM EDT documented in this encounter Results * Film Library- Storage Only CT Abdomen & Pelvis (04/05/2020 12:00 AM EDT) Narrative [facility] - 09/22/2021 9:15 AM EST This exam is auto-finalizing. It's purpose is for storage only. Yoni Ramírez MD IMG FILM LIBRARY ORD ERABLES [place], [place] documented in this encounter Visit Diagnoses Not on filedocumented in this encounter Care Teams Director Of Student Financial Services Relationship Specialty Start Date End Date Yoni Ramírez MD [address] [place] [address] PCP - General 07/05/10 documented as of this encounter
--- OUTSIDE RECORDS SUMMARY | 2024-07-31 18:45 | XMS_ITS | Encounter Summary ---
Author Organization [facility] [place] [address] Care Team Providers Care Oil And Gas Lease Pumper Name Role Phone Yoni Ramírez MD Primary Care Provider [phone] Encounter Details Date Type Department Care Team (Late st Contact Info) Description 10/06/2020 Ancillary Procedure Radiology Library at [facility] [place] [address] [place] [phone] Yoni Ramírez MD [address] [phone] Social History Tobacco Use Types Packs/Day Years [...] EST Office Visit Hematology/Oncolog y at [address] [phone] Deyvi Ibrahim MD [facility] HEMATOLOGY [place] [address] Isabel Berry APRN [facility] [place] [address] 08/05/2024 12:00 PM EST Infusion Hematology Oncology at [address] [phone] 08/27/2024 10:00 AM EST Hospital Encounter [place] [phone] Gulshan Elder MD [facility] [place] [address] 08/27/2024 10:00 AM EST Anesthesia [place] [phone] Swati Gonzalez MD [facility] DR ANESTHESI[place] [address] 08/27/2024 10:00 AM EST - 08/27/2024 11:00 AM EST [place] [phone] Gulshan Elder MD [facility] [place] [address] EGD, UPPER GI ENDOSCOPY (WRVU 2.09) Scheduled [...] STORAGE ONLY CT ABDOMEN AND PELVIS Routine 10/06/2020 12:00 AM EST documented in this encounter Results * Film Library- Storage Only CT Abdomen & Pelvis (10/06/2020 12:00 AM EST) Narrative [facility] - 09/22/2021 9:08 AM EST This exam is auto-finalizing. It's purpose is for storage only. Yoni Ramírez MD IMG FILM LIBRARY ORD ERABLES [place], [place] documented in this encounter Visit Diagnoses Not on filedocumented in this encounter Care Teams Oil And Gas Lease Pumper Relationship Specialty Start Date End Date Yoni Ramírez MD [address] [place] [address] PCP - General 07/05/10 documented as of this encounter
--- OUTSIDE RECORDS SUMMARY | 2024-07-31 18:45 | XMS_ITS | Encounter Summary ---
Author Organization [facility] [place] [address] Care Team Providers Care Dance Hall Host/Hostess Name Role Phone Yoni Ramírez MD Primary Care Provider Encounter Details Date Type Department Care Team (Latest Contact Info) Description 06/04/2017 12:15 AM EDT - 06/04/2017 11:59 PM EDT Hospital Encounter Radiology Library at [facility] [address] [place] [address] Karishma Maurer MD [facility] [place] [address] Discharge Disposition: Home Social History Tobacco Use [...] AM EST Office Visit Hematology/Oncolog y at [address] [phone] Deyvi Ibrahim MD [facility] [place] [address] Isabel Berry APRN [facility] [place] [address] 08/05/2024 12:00 PM EST Infusion Hematology Oncology at [address] [phone] 08/27/2024 10:00 AM EST Hospital Encounter [place] [phone] Gulshan Elder MD [facility] [place] [address] 08/27/2024 10:00 AM EST Anesthesia Event [place] [phone] Swati Gonzalez MD [facility] [place] [address] 08/27/2024 10:00 AM EST - 08/27/2024 11:00 AM EST Surgery [place] [phone] Gulshan Elder MD [facility] [place] [address] EGD, UPPER GI ENDOSCOPY (WRVU 2.09) Scheduled [...] FILM LIBRARY STORAGE ONLY CT CHEST Routine 06/04/2017 12:15 AM EDT documented in this encounter Results * Film Library- Storage Only CT Chest (06/04/2017 12:15 AM EDT) Narrative RONY - 06/04/2017 8:39 PM EDT This exam is for storage only and is auto-finalizing. Karishma Maurer MD IMG FILM LIBRARY ORDERABLES Performing Organization Address City/State/[facility] Co de Phone Number [place], [place] documented in this encounter Visit Diagnoses Not on filedocumented in this encounter Care Teams Dance Hall Host/Hostess Relationship Specialty Start Date End Date Yoni Ramírez MD [address] [place] [phone] PCP - General 07/05/10 documented as of this encounter
--- OUTSIDE RECORDS SUMMARY | 2024-07-31 18:45 | XMS_ITS | Encounter Summary ---
Author Organization Formerly [facility] [place] [address] Care Team Providers Care Data Center Operator Name Role Phone Yoni Ramírez MD Primary Care Provider [phone] Encounter Details Date Type Department Care Team (Late st Contact Info) Description 05/29/2017 Orders [place] [address] Karishma Trujillo MD [facility] [place] [address] Lung nodule seen on imaging study Social History Tobacco Use Types Packs/Day Years [...] as of this encounter Miscellaneous Notes * Addendum Note - Karishma Trujillo MD - 05/29/2017 10:30 AM EDTAddended by: KARISHMA TRUJILLO on: 05/29/2017 10:30 AM Modules accepted: Orders documented in this encounter Plan of Treatment Upcoming Encounters Date Type Department Care Team (Latest Contact Info) Description 08/05/2024 11:30 AM EST Office Visit Hematology/Oncolog y at [address] [phone] Deyvi Ibrahim MD [facility] DR HEMATOLOGY [place] [address] Isabel Berry APRN [facility] [place] [address] 08/05/2024 12:00 PM EST Infusion Hematology Oncology at [address] [phone] 08/27/2024 10:00 AM EST Hospital Encounter [place] [phone] Gulshan Elder MD [facility] [place] [address] 08/27/2024 10:00 AM EST Anesthesia [place] [phone] Swati Gonzalez MD [facility] [place] [address] 08/27/2024 10:00 AM EST - 08/27/2024 11:00 AM EST [place] [phone] Gulshan Elder MD [facility] [place] [address] EGD, UPPER GI ENDOSCOPY (WRVU 2.09) Scheduled [...] as of this encounter Visit Diagnoses Diagnosis Lung nodule seen on imaging study Solitary pulmonary nodule Abnormal CT of the abdomen Nonspecific (abnormal) findings on radiological and other examination of abdominal area, including retroperitoneum Esophagitis Esophagitis, unspecified Gastroesophageal reflux disease with esophagitis, unspecified whether hemorrhage Colitis Other and unspecified noninfectious gastroenteritis and colitis Screen for colon cancer Special screening for malignant neoplasms, colon documented in this encounter Care Teams Data Center Operator Relationship Specialty Start Date End Date Yoni Ramírez MD [address] [place] [phone] PCP - General 07/05/10 documented as of this encounter
--- OUTSIDE RECORDS SUMMARY | 2024-07-31 18:45 | XMS_ITS | Encounter Summary ---
Author Organization [facility] [place] [address] Care Team Providers Care Occupational Health Nurse Supervisor Name Role Phone Yoni Ramírez MD Primary Care Provider Encounter Details Date Type Department Care Team (Late st Contact Info) Description 2017 Telephone [place] [address] Karishma Maurer MD [facility] [place] [address] Social History Tobacco Use Types Packs/Day Years [...] Telephone Encounter - Karishma Maurer MD - 2017 4:45 PM EDT Called patient with results of FNA and CT scan. 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 Regardless, I think parathyroidectomy is the next best step. I will ask my schedulers to contact him to schedule. documented in this encounter Plan of Treatment Upcoming Encounters Date Type Department Care Team (Latest Contact Info) Description 08/05/2024 11:30 AM EST Office Visit Hematology/Oncolog y at [address] [phone] Deyvi Ibrahim MD [facility] DR HEMATOLOGY [place] [address] Isabel Berry APRN [facility] [place] [address] 08/05/2024 12:00 PM EST Infusion Hematology Oncology at [address] [phone] 08/27/2024 10:00 AM EST Hospital En[place] [phone] Gulshan Elder MD [facility] [place] [address] 08/27/2024 10:00 AM EST Anesthesia [place] [phone] Swati Gonzalez MD [facility] [place] [address] 08/27/2024 10:00 AM EST - 08/27/2024 11:00 AM EST [place] [phone] Gulshan Elder MD [facility] [place] [address] EGD, UPPER GI ENDOSCOPY (WRVU 2.09) Scheduled [...] on filedocumented in this encounter Care Teams Occupational Health Nurse Supervisor Relationship Specialty Start Date End Date Yoni Ramírez MD [address] [place] [phone] PCP - General 07/05/10 documented as of this encounter
--- OUTSIDE RECORDS SUMMARY | 2024-07-31 18:45 | XMS_ITS | Encounter Summary ---
Author Organization [facility] [place] [address] Care Team Providers Care Foil Spinner Name Role Phone Yoni Ramírez MD Primary Care Provider Encounter Details Date Type Department Care Team (Late st Contact Info) Description 05/29/2017 Orders [place] [address] Karishma Maurer MD [facility] [place] [address] Hypertension, unspecified type (Primary Dx) Social History Tobacco Use Types [...] EST Office Visit Hematology/Oncolog y at [address] [phone] Deyvi Ibrahim MD [facility] [address] [place] [address] Isabel Berry APRN [facility] [place] [address] 08/05/2024 12:00 PM EST Infusion Hematology Oncology at [address] [phone] 08/27/2024 10:00 AM EST Hospital Encounter [place] [phone] Gulshan Elder MD [facility] [place] [address] 08/27/2024 10:00 AM EST Anesthesia [place] [phone] Swati Gonzalez MD [facility] [place] [address] 08/27/2024 10:00 AM EST - 08/27/2024 11:00 AM EST [place] [phone] Gulshan Elder MD [facility] [place] [address] EGD, UPPER GI ENDOSCOPY (WRVU 2.09) Scheduled [...] documented as of this encounter Results * Creatinine (05/30/2017 12:33 PM EDT) Creatinine 0.99 0.80 - 1.50 mg/dL [facility] Est Glomerular Filtration Rate >60 >=60 [facility] Comment: The reported eGFR should be multiplied by 1.2 for patients. The MDRD is not an appropriate measure of renal function for patients with body mass extremes or in patients with acute kidney failure. http://1DocWay/DHnkdep http://1DocWay/DHMCnkf Blood specimen (specimen) 05/30/2017 12:33 PM EDT 05/30/2017 12:41 PM EDT Narrative Resulting Agency Comment Spec In Lab Karishma Maurer MD [place] [address] documented in this encounter Visit Diagnoses Diagnosis Hypertension, unspecified type- Primary Abnormal CT of the abdomen Nonspecific (abnormal) findings on radiological and other examination of abdominal area, including retroperitoneum Esophagitis Esophagitis, unspecified Gastroesophageal reflux disease with esophagitis, unspecified whether hemorrhage Colitis Other and unspecified noninfectious gastroenteritis and colitis Screen for colon cancer Special screening for malignant neoplasms, colon documented in this encounter Care Teams Foil Spinner Relationship Specialty Start Date End Date Yoni Ramírez MD [address] [place] [phone] PCP - General 07/05/10 documented as of this encounter
--- OUTSIDE RECORDS SUMMARY | 2024-07-31 18:45 | XMS_ITS | Encounter Summary ---
Author Organization [facility] [place] [address] Care Team Providers Care Biomass Technician Name Role Phone Yoni Ramírez MD Primary Care Provider Reason for Referral * Physical Therapy (Routine) - Closed Specialty Diagnoses / Procedures Referred By Guillermo beckham Referred To Contact Physical Therapy Diagnoses Lower urinary tract symptoms (LUTS) Ino Enamorado MD [facility] [place] [address] Physical Therapy, [place] [address] [place] [address] Referral ID Status Reason Start Date Expiration Date V isits Requested Visits Authorized [id number] Closed Evaluate and Treat 05/09/2021 11/05/2021 12 12 Reason for Visit * Consultation (Routine) - Closed Specialty Diagnoses / Procedures Referred By Guillermo beckham Referred To Contact Urology Diagnoses BPH with obstruction/lower urinary tract symptoms BPH - SURGICAL DISCUSSION Aguila Altman MD [address] [place] [address] Ino Enamorado MD [facility] [place] [address] Referral ID Status Reason Start Date Expiration Date V isits Requested Visits Authorized [id number] Closed Consult, Test & Treat 04/04/2021 04/04/2022 1 1 Encounter Details Date Type Department Care Team (Latest Contact Info) Description 05/09/2021 1:40 PM EDT TH Visit (TeleHealth) [place] [address] Ino Enamorado MD [facility] [place] [address] Lower urinary tract symptoms (LUTS) Social History Tobacco Use Types Packs/Day Years [...] Progress Notes * Ino Enamorado MD - 05/09/2021 1:40 PM EDT Called patient for the appointment. Patient consented to proceed with a Telehealth visit and understands that this will be billed similar to a clinic visit. Aguila Altman HPI 55 y.o. M with hx chronic opioid use for OA and severe anxiety (on klonopin). who is referred for LUTS. Patient saw Dr. Altman for pain with urination. Patient strains so hard to void that it causes pain which occurs from 4-9am. The pain dissipates when the stream starts. However, later in the day he does not have as much of an issue. Patient has refused cystoscopy or catheterization with Dr. Altman. He also has stated that he wouldnot accept catheterization post procedure if it were deemed necessary. 05/09/21 His flow is highly variable. Sometimes he cannot go and other times he can go. Currently takes flomax 0.8mg and finasteride. IPSS 28.5 (4/4/5/5/5/2/3.5); QoL [address] Altman ~69-150mL Prostate size: US on 08/2019 showed just modest prostate enlargement. CT 2017 shows 30cc prostate. Last PSA: prior to finasteride EFxn poor Anticoagulation? ASA81 for ppx PMH and PSH Reviewed. Relevant aspects in HPI Assessment: 55M with anxiety and LUTS consistent with pelvic floor overactivity. Plan: - stop finasteride - continue flomax 0.8mg QD - Focus on pelvic floor awareness and relaxation during voiding - Encouraged stretching of hips, groin, and lower back. Consider yoga/meditation - referral to pelvic floor PT - f/u 3-4 months Greater than 50% of the TeleHealth visit was spent on the phone with the patient. Total time of this telehealth visit including decision making and planning was 45min Ino Enamorado MD 05/09/2021 1:33 PM documented in this encounter Plan of Treatment Upcoming Encounters Date Type Department Care Team (Latest Contact Info) Description 08/05/2024 11:30 AM EST Office Visit Hematology/Oncolog y at [address] [phone] Deyvi Ibrahim MD [facility] DR [place] [address] Isabel Berry APRN [facility] [place] [address] 08/05/2024 12:00 PM EST Infusion Hematology Oncology at [address] [phone] 08/27/2024 10:00 AM EST Hospital Encounter [place] [phone] Gulshan Elder MD [facility] [place] [address] 08/27/2024 10:00 AM EST Anesthesia [place] [phone] Swati Gonzalez MD [facility] [place] [address] 08/27/2024 10:00 AM EST - 08/27/2024 11:00 AM EST [place] [address] Gulshan Elder MD [facility] [place] [address] EGD, UPPER GI ENDOSCOPY (WRVU 2.09) Scheduled [...] Associated Diagnoses Orde r Schedule Referral to Physical Therapy Outpatient Referral Routine Lower urinary tract symptoms (LUTS) Ordered: 05/09/2021 documented as of this encounter Visit Diagnoses Diagnosis Lower urinary tract symptoms (LUTS) Other symptoms involving urinary system Abnormal CT of the abdomen Nonspecific (abnormal) findings on radiological and other examination of abdominal area, including retroperitoneum Esophagitis Esophagitis, unspecified Gastroesophageal reflux disease with esophagitis, unspecified whether hemorrhage Colitis Other and unspecified noninfectious gastroenteritis and colitis Screen for colon cancer Special screening for malignant neoplasms, colon documented in this encounter Care Teams Biomass Technician Relationship Specialty Start Date End Date Yoni Ramírez MD [address] [place] [phone] PCP - General 07/05/10 documented as of this encounter
--- OUTSIDE RECORDS SUMMARY | 2024-07-31 18:45 | XMS_ITS | Encounter Summary ---
Author Organization [facility] [place] [address] Care Team Providers Care Coning Machine Operator Name Role Phone Yoni Ramírez MD Primary Care Provider Encounter Details Date Type Department Care Team (Late st Contact Info) Description 07/02/2021 Ancillary Procedure Radiology Library at [facility] [address] [place] [phone] Yoni Ramírez MD [address] [id number] Social History Tobacco Use Types Packs/Day Years [...] EST Office Visit Hematology/Oncolog y at [address] [phone] Deyvi Ibrahim MD [facility] HEMATOLOGY [place] [address] Isabel Berry APRN [facility] [place] [address] 08/05/2024 12:00 PM EST Infusion Hematology Oncology at [address] [phone] 08/27/2024 10:00 AM EST Hospital En[place] [phone] Gulshan Elder MD [facility] [place] [address] 08/27/2024 10:00 AM EST Anesthesia [place] [phone] Swati Gonzalez MD [facility] [place] [address] 08/27/2024 10:00 AM EST - 08/27/2024 11:00 AM EST [place] [phone] Gulshan Elder MD [facility] [place] [address] EGD, UPPER GI ENDOSCOPY (WRVU 2.09) Scheduled [...] STORAGE ONLY CT ABDOMEN AND PELVIS Routine 07/02/2021 12:00 AM EST documented in this encounter Results * Film Library- Storage Only CT Abdomen & Pelvis (07/02/2021 12:00 AM EST) Narrative RAD - 09/22/2021 9:10 AM EST This exam is auto-finalizing. It's purpose is for storage only. Yoni Ramírez MD IMG FILM LIBRARY ORD ERABLES [place], [place] documented in this encounter Visit Diagnoses Not on filedocumented in this encounter Care Teams Coning Machine Operator Relationship Specialty Start Date End Date Yoni Ramírez MD [address] [place] [phone] PCP - General 07/05/10 documented as of this encounter
--- OUTSIDE RECORDS SUMMARY | 2024-07-31 18:45 | XMS_ITS | Encounter Summary ---
[place] [address] Care Team Providers Care Steward/Stewardess Chief Cargo Vessel Name Role Phone Yoni Ramírez MD Primary Care Provider [phone] Reason for Visit * Reason Comments Other Encounter Details Date Type Department Care Team (Late st Contact Info) Description 09/12/2017 Telephone [place] [phone] Heather Martinez RN Other Social History Tobacco Use Types [...] encounter Miscellaneous Notes * Telephone Encounter - Heather Martinez RN - 09/12/2017 11:53 AM EST Mr. Arreguin is s/p parathyroidectomy on 09/04/[address] Maurer. His dentist, Dr. Akhtar, calls today to report she is seeing the pt for an abscessed tooth. She has placed him on antibiotics and asksif removing the tooth is ok this close post-op. Discussed with Carmela Gonzalez APRN - ok to remove tooth if that is the recommended treatment course, but she recommends antibiotics as well. Relayed to Dr. Akhtar's office. documented in this encounter Plan of Treatment Upcoming Encounters Date Type Department Care Team (Latest Contact Info) Description 08/05/2024 11:30 AM EST Office Visit Hematology/Oncolog y at [address] [phone] Deyvi Ibrahim MD [facility] HEMATOLOGY [place] [address] Isabel Berry APRN [facility] [place] [address] 08/05/2024 12:00 PM EST Infusion Hematology Oncology at [address] [phone] 08/27/2024 10:00 AM EST Hospital Encounter [place] [phone] Gulshan Elder MD [facility] [place] [address] 08/27/2024 10:00 AM EST Anesthesia [place] [phone] Swati Gonzalez MD [facility] DR [place]ESTH[place] [address] 08/27/2024 10:00 AM EST - 08/27/2024 11:00 AM EST Surgery [place] [phone] Gulshan Elder MD [facility] [place] [address] EGD, UPPER GI ENDOSCOPY (WRVU 2.09) Scheduled [...] on filedocumented in this encounter Care Teams Steward/Stewardess Chief Cargo Vessel Relationship Specialty Start Date End Date Yoni Ramírez MD [address] [place] [phone] PCP - General 07/05/10 documented as of this encounter
--- OUTSIDE RECORDS SUMMARY | 2024-07-31 18:45 | XMS_ITS | Encounter Summary ---
[place] [address] Care Team Providers Care Aerial Survey Technician Name Role Phone Yoni Ramírez MD Primary Care Provider Reason for Referral * Consultation (Routine) - Closed Specialty Diagnoses / Procedures Referred By Contac t Referred To Contact General Surgery Diagnoses Primary hyperparathyroidism Mar Lozada MD [facility] DR ENDOCRINOLOGY DEPT [place] [id number] Karishma Maurer MD [facility] [place] [address] Referral ID Status Reason Start Date Expiration Date V isits Requested Visits Authorized [id number] Closed Consult, Test & Treat 02/21/2017 02/21/2018 1 1 Reason for Visit * Consultation (Routine) - Closed Specialty Diagnoses / Procedures Referred By Contac t Referred To Contact Endocrinology Diagnoses Hyperparathyroidism hyperparathyroidism Procedures consult and treat Yoni Ramírez MD [address] [address] [facility] Endocrinology [address] [place] [phone] Referral ID Status Reason Start Date Expiration Date Visits Re quested Visits Authorized [id number] Closed 01/31/2017 01/31/2018 1 1 Encounter Details Date Type Department Care Team (Latest Contact Info) Description 02/20/2017 3:00 PM EDT Office Visit [place] [address] Breezy Elizalde [facility] [place] [address] Mar Lozada MD Primary hyperparathyroidism Social History Tobacco Use Types Packs/Day Years [...] Sign Reading Time Taken Comments Blood Pressure 160/87 02/20/2017 3:09 PM EDT Pulse 61 02/20/2017 3:09 PM EDT Temperature - - Respiratory Rate - - Oxygen Saturation - - Inhaled Oxygen Concentration - - Weight 98 kg (216 lb) 02/20/2017 3:09 PM EDT Height 177.8 cm (5' 10) 02/20/2017 3:09 PM EDT Body Mass Index 30.99 02/20/2017 3:09 PM EDT documented in this encounter Patient Instructions * Patient Instructions* Mar Lozada MD - 02/20/2017 3:00 PM EDT Please go down to lab for blood work today at 3L We will call you with the results once they return. We will likely send you to our Endocrine Surgeon - Dr. Maurer - we will place this referral afteryour lab results return. Thank you for your patience. documented in this encounter Progress Notes * Mar Lozada MD - 02/20/2017 3:00 PM EDT New Patient in Clinic History & Physical Name: Jeff Arreguin Date: 02/20/2017 Chief complaint/Reason for referral: Hypercalcemia in the setting of bilateral parathyroid adenomas, rule out MEN syndrome. HPI: Patient is a 51 y.o. male presents to clinic as a new patient. He has been sent over by Dr. Ramírez - his PCP. Patient has history of frequent ER visits and hospitalizations since 2004 or so forabdominal pain. He states that he has vague memories of having abdominal pain before but not as intense as since episodes occurring recently. He describes feeling getting cold chills, then sweaty andhot and then feeling body aches all over and increased abdominal pain accompanied by severe nausea and vomiting and overall discomfort. This happens to him in the frequency of every 2 - 5 months or so for several days straight at each time. He ends up being hospitalized due to dehydration most often. This spring of 2016 was the worst he has ever had it to where he has had about half a dozen hospitalizations/ER visits. He was found to have elevated calcium level of 13.9 and PTH of 243. He had a ultrasound of his thyroid done on 01/25/17: Posterior aspect of right lobe is an ovoid, heterogenously hypoechoic mass measuring 2.2 x 1.0 x 1.1 cm. On left, similar hypoechoic mass measuring 1.2 x 0.6 cm x 0.6cm in the inferior aspect. He endorses diffuse joint pain/bone pain, muscle aches, and polyuria. No personal or family historyof kidney stones. He denies spells of palpitations, sweating and headaches that occur together but does have daily nausea that occurs for about 2 hours daily especially in the mornings. He had a 24 urine collection for pheochromocytoma done both as per him and faxed over message from his PCP - we do not have the results but patient gives verbal report to us that it was negative. He also had a CT scan chest and abdomen it seems as per patient report it was negative except for a lung nodule that needs to be followed up on. He denies any history of fractures or ever having bone density scans done in the past. He does havesome memory problems and problems with focusing on complicated tasks. Past Medical History Past Medical History: Diagnosis Date ??? Arthritis ??? Hypertension Past Surgical History Past Surgical History: Procedure Laterality Date ??? CHOLECYSTECTOMY, LAPAROSCOPIC ??? ERCP,DIAGNOSTIC 08/22/2013 ERCP performed by Duane Garcia MD at [facility] ENDOSCOPY ??? FOOT SURGERY left ??? 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 lisinopril (PRINIVIL;ZESTRIL) 10 mg Tablet ??? HYDROmorphone (DILAUDID) 2 mg tablet ??? ondansetron (ZOFRAN ODT) 4 mg oral disintegrating tablet Review of Systems: Constitutional: denies weight loss/gain, night sweats,++ fatigue Eyes: + changes in vision Ears, Nose, Mouth & Throat: chronic tinnitus, - dysphagia Cardiovascular: denies chest pain, palpitations, SOB, mild LE edema Respiratory: denies cough, SOB GI: lower abdominal pain- dull, aching constant pain, + daily nausea/vomitting, - constipation; - diarrhea. : denies dysuria, + increased urgency/frequency Musculoskeletal: diffuse joint pain and muscle aches Endocrine: does have cold intolerance, no excessive weight gain Physical Exam: BP 160/87 Pulse 61 Ht 177.8 cm (5' 10) Wt 98 kg (216 lb) BMI 30.99 kg/m2 Gen: Well developed, well nourished male, who appears stated age Eyes: PERRL b/l, EOMi b/l ENT: supple, no thyromegaly CV: +s1, s2 RRR Resp: +air entry bilaterally GI: +BS, soft, NT/ND : deferred Musk: 5/5 strength b/l UE Neuro: AAOx 4, normal gait Skin: warm and dry Labs previously: OSH labs 01/16/17: PTH: 243 PTHrP: <0.4 SPEP: normal Vit D: 21 (low) Ca: 12 Ionized Ca: 1.43 (1.12 - 1.32) Albumin: 4.5 TSH: 0.81 Vitamin B12: 418 Labs: Component Latest Ref Rng & Units 02/20/2017 U Calcium mg/dL 20.6 U Creatinine mg/dL 155 Ca/Cre Ratio ratio 0.13 PTH 15 - 65 pg/mL 138 (H) Calcium 8.5 - 10.5 mg/dL 10.6 (H) Assessment/Plan Jeff Arreguin is a pleasant 51 yo gentleman with PMH significant for hypercalcemia and primary hyperparathyroidism. He underwent an US thyroid which showed bilateral adenomas. We did perform a quick informal bedside ultrasound today in our visit together and did visualize both adenomas, with the right being greater than the left; no measurements were taken. We think it would be best today to repeat his calcium and PTH hormone levels and also to check his calcitonin levels and refer him to Dr. Maurer. She may choose to send him to obtain a NM sestamibi scan, we will leave that decision up to her. Because this patient also complains of continued abdominal pain with nausea and vomiting, there hasbeen a question regarding whether not he has MEN 1 or 2A. We will first tackle his hypercalcemia/hyperparthyroidism issue and then readdress this if needed because abdominal pain, nausea/vomiting canbe seen in symptomatic hypercalcemia. Additionally, he was screened with 24 urine collection for phe ochromocytoma which had come back negative. We do not have actual report of that so I will ask our secretaries to track this down for us. He does not complain of reflux or GERD symptoms today either. We are obtaining a serum calcitonin level since we are sending him down for labs today. This case was discussed fully with my attending physician, Dr. Elizalde. Thank you, Mar Lozada MD Endocrinology Fellow, PGY-4 02/20/2017 * Breezy Elizalde DO - 02/20/2017 3:00 PM EDT I have seen the patient and reviewed Dr Lozada's history and I agree with the details as written. The assessment and plan were formulated in discussion with me and I agree with them as documented. Breezy Elizalde DO, MS Wildfire Prevention Specialistnetwork operations center engineer Section of Endocrinology [facility] documented in this encounter Plan of Treatment Upcoming Encounters Date Type Department Care Team (Latest Contact Info) Description 08/05/2024 11:30 AM EST Office Visit Hematology/Oncolog y at [address] [phone] Deyvi Ibrahim MD [facility] HEMATOLOGY [place] [address] Isabel Berry APRN [facility] [place] [address] 08/05/2024 12:00 PM EST Infusion Hematology Oncology at [address] [phone] 08/27/2024 10:00 AM EST Hospital Encounter [place] [address] Gulshan Elder MD [facility] [place] [address] 08/27/2024 10:00 AM EST Anesthesia Event [place] [phone] Swati Gonzalez MD [facility] [place] [address] 08/27/2024 10:00 AM EST - 08/27/2024 11:00 AM EST Surgery [place] [address] Gulshan Elder MD [facility] [address] EGD, UPPER GI ENDOSCOPY (WRVU 2.09) Scheduled [...] Associated Diagnoses Orde r Schedule Referral to General Surgery Outpatient Referral Routine Primary hyperparathyroidism Ordered: 02/21/2017 documented as of this encounter Procedures Procedure Name Priority Date/Time Associated Diagnosis Comments CALCIUM CREATININE RATIO, RANDOM URINE Routine 02/20/2017 4:53 PM EDT Primary hyperparathyroidism PTH Routine 02/20/2017 4:50 PM EDT Primary hyperparathyroidism CALCITONIN Routine 02/20/2017 4:50 PM EDT Primary hyperparathyroidism CALCIUM Routine 02/20/2017 4:50 PM EDT Primary hyperparathyroidism documented in this encounter Results * Calcium Creatinine Ratio, random urine (02/20/2017 4:53 PM EDT) Calcium, Urine 20.6 mg/dL [facility] Creatinine, Urine 155 mg/dL [facility] Calcium / Creatinine Ratio, Urine 0.13 ratio [facility] Urine specimen (specimen) 02/20/2017 4:53 PM EDT 02/20/2017 4:58 PM EDT Narrative Resulting Agency Comment Spec In Lab Breezy Elizalde DO URINE ORDERABLES [facility] [place] [address] * (ABNORMAL) Calcitonin (02/20/2017 4:50 PM EDT) Calcitonin Lvl (QST) 22(H) <=10 pg/mL [facility] Comment: This test was performed using the Siemens (DPC) Chemiluminescent method. Values obtained with different assay methods cannot be used interchangeably. Calcitonin levels, regardless of value, should not be interpreted as absolute evidence of the presence or absence of the disease. Test Performed by [facility], [address] [place], [place] Jason Fox M.D., Ph.D., Director of Laboratories , CLIA [id number] Blood specimen (specimen) 02/20/2017 4:50 PM EDT 02/21/2017 11:34 AM EDT Narrative Resulting Agency Comment Spec In Lab Breezy Elizalde DO LAB SEND OUT ORDERAB LES Performing Organization Address City/[facility]/ZIP Co de Phone Number [facility] [place] [address] * (ABNORMAL) Calcium (02/20/2017 4:50 PM EDT) Calcium 10.6(H) 8.5 - 10.5 mg/dL [facility] Blood specimen (specimen) 02/20/2017 4:50 PM EDT 02/20/2017 4:57 PM EDT Narrative Resulting Agency Comment Spec In Lab Breezy Elizalde DO CHEMISTRY ORDERABLES Performing Organization Address [facility] Co de Phone Number [facility] [place] [address] * (ABNORMAL) PTH (02/20/2017 4:50 PM EDT) Parathyroid Hormone 138(H) 15 - 65 pg/mL [facility] Blood specimen (specimen) 02/20/2017 4:50 PM EDT 02/20/2017 4:57 PM EDT Narrative Resulting Agency Comment Spec In Lab Breezy Elizalde DO CHEMISTRY ORDERABLES Performing Organization Address [facility] Co de Phone Number [facility] [place] [address] documented in this encounter Visit Diagnoses Diagnosis Primary hyperparathyroidism Abnormal CT of the abdomen Nonspecific (abnormal) findings on radiological and other examination of abdominal area, including retroperitoneum Esophagitis Esophagitis, unspecified Gastroesophageal reflux disease with esophagitis, unspecified whether hemorrhage Colitis Other and unspecified noninfectious gastroenteritis and colitis Screen for colon cancer Special screening for malignant neoplasms, colon documented in this encounter Care Teams Aerial Survey Technician Relationship Specialty Start Date End Date Yoni Ramírez MD [address] [place] [id number] PCP - General 07/05/10 documented as of this encounter
--- OUTSIDE RECORDS SUMMARY | 2024-07-31 18:45 | XMS_ITS | Encounter Summary ---
Author Organization [facility] [place] [address] Care Team Providers Care It Data Architect Name Role Phone Yoni Ramírez MD Primary Care Provider Encounter Details Date Type Department Care Team (Late st Contact Info) Description 10/15/2017 Orders Only [place] [address] Karishma Maurer MD [facility] [place] [address] S/P parathyroidectomy Social History Tobacco Use Types Packs/Day Years [...] EST Office Visit Hematology/Oncolog y at [address] [phone] Deyvi Ibrahim MD [facility] [place] [address] Isabel Berry APRN [facility] [place] [address] 08/05/2024 12:00 PM EST Infusion Hematology Oncology at [address] [phone] 08/27/2024 10:00 AM EST Hospital Encounter [place] [phone] Gulshan Elder MD [facility] [address] 08/27/2024 10:00 AM EST Anesthesia [place] [phone] Swati Gonzalez MD [facility] [place] [address] 08/27/2024 10:00 AM EST - 08/27/2024 11:00 AM EST Surgery [place] [phone] Gulshan Elder MD [facility] [place] [address] EGD, UPPER GI ENDOSCOPY (WRVU 2.09) Scheduled [...] as of this encounter Visit Diagnoses Diagnosis S/P parathyroidectomy Other postprocedural status Abnormal CT of the abdomen Nonspecific (abnormal) findings on radiological and other examination of abdominal area, including retroperitoneum Esophagitis Esophagitis, unspecified Gastroesophageal reflux disease with esophagitis, unspecified whether hemorrhage Colitis Other and unspecified noninfectious gastroenteritis and colitis Screen for colon cancer Special screening for malignant neoplasms, colon documented in this encounter Care Teams It Data Architect Relationship Specialty Start Date End Date Yoni Ramírez MD [address] [place] [address] PCP - General 07/05/10 documented as of this encounter
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
--- OUTSIDE RECORDS SUMMARY | 2024-07-31 18:45 | XMS_ITS | Encounter Summary ---
Author Organization [facility] [place] [address] Care Team Providers Care Mini Bar Attendant Name Role Phone Yoni Ramírez MD Primary Care Provider [phone] Reason for Visit * Reason Comments Follow-up Encounter Details Date Type Department Care Team (Late st Contact Info) Description 05/30/2017 11:00 AM EDT Office [place] [phone] [facility] [place] [address] Hyperparathyroidism, primary Social History Tobacco Use Types [...] Progress Notes * Karishma Maurer MD - 05/30/2017 11:00 AM EDT ID: Mr. Arreguin is a 51 y/o M here for an FNA of his left-sided hypoechoic paratracheal mass to determine whether it is an enlarged parathyroid gland vs. A lymph node (and if a lymph node whether thereis calcitonin present). See my office visit 05/21 and multidisciplinary tumor board note 05/24 for full details. Ultrasound-Guided Thyroid or Lymph Node Fine Needle Aspiration Biopsy I performed an ultrasound-guided fine needle aspiration biopsy today in clinic as a separately identifiable procedure. I briefly repeated the diagnostic thyroid and cervical ultrasound with the findings identical to those outlined in my 05/21 office note. Verbal informed consent was then obtained after discussing the risks of fine needle biopsy, including bleeding, infection, and damage to surrounding structures. Then, using the 12mHz ultrasound transducer for guidance, I prepped the area with alcohol and infiltrated the dermal layer with 1% lidocaine with epinephrine. Then using 5 separate passes with a 1.5 inch, 20G needle with gentle aspiration, I sampled the 9mm hypoechoic left-sided para tracheal mass. Three needle passes were washed out in Cytolyte, one was washed out in 1cc of sterile saline for calcitonin, and one was washed out in 1cc of sterile saline for PTH. The patient tolerated the procedure well without immediate complications. I will notify him of the final pathology results when they are available. I elected not to biopsy the right-sided mass, as it is classic for a parathyroid mass and is positioned posteromedial to the carotid artery making the FNA approach challenging (risk outweighs benefit). A/P: 51 y/o M with hyperparathyroidism, chronic abdominal pain, elevated calcitonin/CEA, and a new lung nodule seen on chest CT done in February. There are two findings on his cervical ultrasound initially reported to be consistent with parathyroid adenomas, but the left-sided nodule appears more consistent with a rounded lymph node (see images in 05/21 office note). I will contact the patient with his FNA results. He will be having chest CT at [facility] soon for follow-up of the lung nodule. Today, he is having bloodwork done for RET oncogene given the elevated calcitonin and question of MTC. I also added menin- 1, as the more typical MEN-syndrome associated with hyperparathyroidismand refractory abdominal pain would be MEN-1 rather than 2. Because of this, I will also check a prolactin level. I reordered his hyperparathyroidism labs since it has been >3 months since they were last checked. I will be in touch with the patient as soon as I have the results, and we will makea surgical plan for his known hyperparathyroidism. documented in this encounter Plan of Treatment Upcoming Encounters Date Type Department Care Team (Latest Contact Info) Description 08/05/2024 11:30 AM EST Office Visit Hematology/Oncolog y at [address] [phone] [facility] [address] HEMATOLOGY [place] [address] [facility] [place] [address] 08/05/2024 12:00 PM EST Infusion Hematology Oncology at [address] [phone] 08/27/2024 10:00 AM EST Hospital Encounter [place] [phone] [facility] [place] [address] 08/27/2024 10:00 AM EST Anesthesia [place] [phone] [facility] [address] [place] [address] 08/27/2024 10:00 AM EST - 08/27/2024 11:00 AM EST Surgery [place] [phone] [facility] [place] [phone] EGD, UPPER GI ENDOSCOPY (WRVU 2.09) Scheduled [...] Procedure Name Priority Date/Time Associated Diagnosis Comments CYTOPATHOLOGY NON-GYNECOLOGICAL Routine 05/30/2017 12:10 PM EDT Hyperparathyroidis m, primary NON-MEAT DRESSER FINAL REPORT Routine 05/30/2017 11:40 AM EDT FINE NEEDLE ASPIRATE PTH Routine 05/30/2017 11:40 AM EDT Hyperparathyroidis m, primary documented in this encounter Results * Prolactin (05/30/2017 12:33 PM EDT) Prolactin 5.7 4.0 - 15.2 ng/mL [facility] Blood specimen (specimen) 05/30/2017 12:33 PM EDT 05/30/2017 12:41 PM EDT Narrative Resulting Agency Comment Spec In Lab Karishma Maurer MD CHEMISTRY ORDERAB LES Performing Organization Address City/[facility]/ZIP Co de Phone Number [facility] [place] [address] * (ABNORMAL) Calcium, Ionized, Serum (05/30/2017 12:33 PM EDT) Ionized Calcium 1.44(H) 1.15 - 1.33 mmol/L [facility] Comment: Note: Total bilirubin higher than 20 mg/dL may lead to falsely low ionized calcium. Blood specimen (specimen) 05/30/2017 12:33 PM EDT 05/30/2017 12:41 PM EDT Narrative Resulting Agency Comment Spec In Lab Karishma Maurer MD CHEMISTRY ORDERAB LES Performing Organization Address City/[facility]/ZIP Co de Phone Number [facility] [address] * (ABNORMAL) Vitamin D, 25-Hydroxy (05/30/2017 12:33 PM EDT) Vitamin D Total 25 OH 29(L) 30 - 100 ng/mL [facility] Comment: Deficient <10 ng/mL Insufficient 10 to 29 ng/mL Sufficient 30 to 100 ng/mL Potential Intoxication >100 ng/mL According to the [place] National Osteoporosis Foundation, Vitamin D concentrations >30 ng/mL are sufficient to protect bone health. ??The National Kidney Foundation has similarly stated that patients with Vitamin D concentrations <30ng/mL should be considered to be insufficient or deficient. http://[employer]/nkf-guidelines http://[employer]/nejm-VitD [employer] iSYS Vitamin D Immunoassay detects both 25-OH Vitamin D2 and 25-OH Vitamin D3, but only a total Vitamin D concentration is reported. Blood specimen (specimen) 05/30/2017 12:33 PM EDT 05/30/2017 2:53 PM EDT Narrative Resulting Agency Comment Spec In Lab Karishma Maurer MD CHEMISTRY ORDERAB LES Performing Organization Address City/[facility]/ZIP Co de Phone Number [facility] [address] * (ABNORMAL) PTH (05/30/2017 12:33 PM EDT) Parathyroid Hormone 131(H) 15 - 65 pg/mL [facility] Blood specimen (specimen) 05/30/2017 12:33 PM EDT 05/30/2017 12:41 PM EDT Narrative Resulting Agency Comment Spec In Lab Karishma Maurer MD CHEMISTRY ORDERAB LES [facility] [place] [address] * (ABNORMAL) Calcium (05/30/2017 12:33 PM EDT) Calcium 11.8(H) 8.5 - 10.5 mg/dL [facility] Blood specimen (specimen) 05/30/2017 12:33 PM EDT 05/30/2017 12:41 PM EDT Narrative Resulting Agency Comment Spec In Lab Karishma Maurer MD CHEMISTRY ORDERAB LES Performing Organization Address [facility]/ZIP Co de Phone Number [facility] [place] [address] * Cytopathology Non-Gynecological (05/30/2017 12:10 PM EDT) AP Specimen 05/30/2017 12:1 0 PM EDT 05/30/2017 12:10 PM EDT Narrative [facility] - 05/30/2017 12:10 PM EDT Specimen requisition ordered. ??Separate Pathology report to follow Karishma Maurer MD PATHOLOGY/CYTOLOG Y ORDERABLES Performing Organization Address [facility] Co de Phone Number [facility] [place] [address] * Non-Advertising Sales Associate Final Report (05/30/2017 11:40 AM EDT) Diagnosis Discussion [id number] ? Location: 4L The signing pathologist has (i) examined the relevant preparation(s) for the specimen(s) and (ii) rendered or confirmed the diagnosis(es). . ? Non-Advertising Sales Associate Final DIAGNOSIS See Discussion Electronically signed by: ??Eladio Valero MD Verified: ??06/01/2017 ?Cytopathologist Performed at: ??-[facility] Dept. of Pathology, [place], [place] DISCUSSION Left paratracheal nodule (US-guided FNA): Hypocellular sample. A rare minute group of epithelioid cells and scattered neutrophils and lymphocytes are present in a sample that appears to be composed predominantly of blood. Non-diagnostic. The material likely is not fully insurance claims representative of the target lesion. (Cell block is scanty and non-contributory.) CLINICAL INFORMATION Specimen Source : Left paratracheal nodule (US-guided FNA) Pertinent Clinical Data and Significant Therapy: Patient with hyperparathyroidism and elevated calcitonin/CEA. Hypoechoic paratracheal nodule - ? parathyroid vs. lymph node Clinical Impression : Hyperparathyroidism vs. lymph node (? medullary thyroid Ca) Pertinent Radiologic Findings ??: (not provided) Gross Description: Received ??in CytoLyt, approximately 10 mL total volume of ?? cloudy, pink fluid, with light flecks. Total Preparation: Liquid-Based Prep 1; Cell Block 1. 06/01/2017 12:43 PM EDT [facility] Misc. FNA 05/30/2017 11:4 0 AM EDT 05/30/2017 11:40 AM EDT Karishma Maurer MD PATHOLOGY/CYTOLOG Y ORDERABLES [facility] [place] [address] * Fine Needle Aspirate PTH (05/30/2017 11:40 AM EDT) FNA PTH 15 < OR = 30 pg/mL [facility] Comment: Any detectable Intact PTH value is consistent with normal parathyroid tissue. However, levels of Intact PTH >30 pg/mL are consistent with pathologic parathyroid. There is considerable overlap between levels encountered in normal and pathological parathyroid tissue. If fine needle aspirates of parathyroid gland are contaminated by thyroid gland tissue, Intact PTH FNA specimens do not dilute in parallel. Due to this potential interference, an Intact PTH value cannot be reported. This test was performed using the Siemens (DPC) Chemiluminescent method. Values obtained from different assay methods cannot be used interchangeably. Intact PTH levels, regardless of value, should not be interpreted as absolute evidence of the presence or absence of disease. Test performed by: [employer] [facility] [address] [place] [address] Specimen obtained by fine needle aspiration procedure (specimen) 05/30/2017 11:40 AM EDT 05/30/2017 1:18 PM EDT Narrative Resulting Agency Comment Spec In Lab Karishma Maurer MD LAB SEND OUT KYLIE HUDSON Performing Organization Address City/[facility]/ZIP Co de Phone Number [facility] [place] [address] * Miscellaneous Lab request (05/30/2017 11:40 AM EDT) Label Request received in lab. [facility] Specimen of unknown material (specimen) 05/30/2017 11:40 AM EDT 05/30/2017 12:22 PM EDT Narrative Resulting Agency Comment Spec In Lab Karishma Maurer MD LAB SEND OUT KYLIE HUDSON Performing Organization Address [facility] Co de Phone Number [facility] [place] [address] documented in this encounter Visit Diagnoses Diagnosis Hyperparathyroidism, primary Primary hyperparathyroidism Abnormal CT of the abdomen Nonspecific (abnormal) findings on radiological and other examination of abdominal area, including retroperitoneum Esophagitis Esophagitis, unspecified Gastroesophageal reflux disease with esophagitis, unspecified whether hemorrhage Colitis Other and unspecified noninfectious gastroenteritis and colitis Screen for colon cancer Special screening for malignant neoplasms, colon documented in this encounter Care Teams Mini Bar Attendant Relationship Specialty Start Date End Date Yoni Ramírez MD [address] [place] [id number] PCP - General 07/05/10 documented as of this encounter
--- OUTSIDE RECORDS SUMMARY | 2024-07-31 18:45 | XMS_ITS | Encounter Summary ---
[facility] [place] [address] Care Team Providers Care Bottom Loader Name Role Phone Yoni Ramírez MD Primary Care Provider Reason for Visit * Auth/Cert Specialty Diagnoses / Procedures Referred By Contac t Referred To Contact Diagnoses Hyperparathyroidism HPT Procedures PRO EXPLORE PARATHYROID GLANDS PRG EMG, LARYNX PARATHYROIDECTOMY OR EXPLORATION OF PARATHYROID(S) (WRVU 15.6) FACIAL NERVE MONITORING, SETUP LARYNGEAL (WRVU 1.57) Referral ID Status Reason Start Date Expiration Date Visits Re quested Visits Authorized [id number] 1 1 Encounter Details Date Type Department Care Team (Latest Contact Info) Description 09/04/2017 11:44 AM EST - 09/05/2017 11:00 AM EST Hospital Encounter [place] [address] Yanet Trujillo MD [facility] [place] [address] Hyperparathyroidism Discharge Disposition: Home Social History Tobacco Use [...] Sign Reading Time Taken Comments Blood Pressure 146/77 09/05/2017 7:40 AM EST Pulse 64 09/05/2017 7:40 AM EST Temperature 37.1 ??C (98.8 ??F) 09/05/2017 7:40 AM ES T Respiratory Rate 18 09/05/2017 7:40 AM EST Oxygen Saturation 97% 09/05/2017 7:40 AM EST Inhaled Oxygen Concentration - - Weight 98.2 kg (216 lb 6.4 oz) 09/04/2017 12:29 PM EST Height 177.8 cm (5' 10) 09/04/2017 12:29 PM EST Body Mass Index 31.05 09/04/2017 12:29 PM EST documented in this encounter Discharge Summaries * Tracy Felipe, BUTTONHOLE MARKER - 09/05/2017 8:27 AM EST General Surgery [...] Appointments: Future Appointments Date Time Provider Department Center 10/19/2017 10:30 AM SANDRO, DEVIN L Lab [facility] 10/19/2017 11:30 AM Yanet Trujillo MD [facility] Outpatient Services/Studies: Calcium Standing Status: Future [...] Take NSAIDS or Tylenol every 6 hours ggfhix-ake-ihjtv for the first 3-5 days following surgery [...] or grocery store, as it is available bqbl-dyz-[id number] and does not require a prescription. The [...] please call the General Surgery nurse at [phone], since this may mean that you need [...] will be mailed to you Please call [phone] to confirm the date and time of your appointment if you do not hear from us in the next 2 weeks Call Doctor for: Call if you have trouble talking or breathing (call [phone] if this is severe) Call if you [...] with the Surgery nurses. The number is [phone]. - During the night or weekends call the [facility] screen printing press operator at [phone] and ask to speak to the surgery resident real estate economist for general surgery. Please note: Your surgeon may not be Asp Web Developer, especially during the night or on weekends, so be ready to describe yourself and your surgery when you call. Follow up appointments: Future Appointments Date Time Provider Department Center 10/19/2017 10:30 AM SANDRO, THREE L Lab [facility] 10/19/2017 11:30 AM Yanet Trujillo MD [facility] [x] Follow-up appointment with General Surgery has already been scheduled [] A request for a follow-up appointment has been made and you should receive information via phone/mail in the next week. If you do not hear anything, please call the clinic at [phone] to confirm or reschedule. If you need a prior authorization, please call the General Surgery Clinic nurses [phone] for prior authorizations assistance General Instructions None [...] Yoni Ramírez MD Signed: Tracy Felipe APRN [facility] Surgical Oncology Service Team Pager #[phone] 09/05/17 [...] Take NSAIDS or Tylenol every 6 hours lnwimx-ivx-wiupu for the first 3-5 days following surgery [...] or grocery store, as it is available acnu-hzu-qxfehgb and does not require a prescription. The [...] please call the General Surgery nurse at [phone], since this may mean that you need [...] will be mailed to you Please call [phone] to confirm the date and time of your appointment if you do not hear from us in the next 2 weeks Call Doctor for: Call if you have trouble talking or breathing (call [phone] if this is severe) Call if you [...] day, it is best to call the 4[facility] General Surgery Clinic to speak with the Surgery nurses. The number is [phone]. - During the night or weekends call the [facility] screen printing press operator at [phone] and ask to speak to the surgery resident real estate economist for general surgery. Please note: Your surgeon may not be Asp Web Developer, especially during the night or on weekends, so be ready to describe yourself and your surgery when you call. Follow up appointments: Future Appointments Date Time Provider Department [place] 10/19/2017 10:30 AM LAB, THREE L [facility] 10/19/2017 11:30 AM Yanet Trujillo MD Le[facility]urg [facility] [x] Follow-up appointment with General Surgery has already been scheduled [] A request for a follow-up appointment has been made and you should receive information via phone/mail in the next week. If you do not hear anything, please call the clinic at [phone] to confirm or reschedule. If you need a prior authorization, please call the General Surgery Clinic nurses [phone] for prior authorizations assistance documented in this [...] well. Pain is now well controlled with RESIDENT PROGRAM SPECIALIST started by anesthesia in PACU for uncontrolled [...] Progressing well postoperatively.Pain is well controlled with RESIDENT PROGRAM SPECIALIST and pt is currently stable. - Straight [...] potential plans and decided on a morphine RESIDENT PROGRAM SPECIALIST. 2114 RESIDENT PROGRAM SPECIALIST education provided for pt. documented in this encounter H&P Notes * Martinez Werner MD - 09/04/2017 11:58 AM EST [facility] Department of General Surgery Pre Procedure Note [...] ERCP performed by Duane Garcia MD at [facility] ENDOSCOPY ??? 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 Ambulated in halls, tolerated activity well. Incision [...] Trujillo MD - 09/04/2017 4:23 PM EST [facility] Operative Note Patient Name: Jeff Arreguin : [id number] MR#: [id number] Case Date: 09/04/2017 Surgeon: Surgeon(s) and Role: [...] anesthesia was completed by anesthesiology with the [employer] recurrent laryngeal nerve monitoring system. A crease [...] need to include opening and closing). YANET TRUJILLO MD 09/04/2017 * Brief Op Note - Yanet Trujillo MD - 09/04/2017 4:21 PM EST Brief Operative Note Patient Name: Jeff Arreguin : [id number] MR#: [id number] Case Date: 09/04/2017 Surgeon: Surgeon(s) and Role: [...] EST Office Visit Hematology/Oncolog y at [address] [id number] Deyvi Ibrahim MD [facility] [address] H[place] [address] Isabel Berry APRN [facility] [place] [address] 08/05/2024 12:00 PM EST Infusion Hematology Oncology at [address] [phone] 08/27/2024 10:00 AM EST Hospital Encounter [place] [phone] Gulshan Elder MD [facility] [place] [address] 08/27/2024 10:00 AM EST Anesthesia Event [place] [phone] Swati Gonzalez MD [facility] [place] [address] 08/27/2024 10:00 AM EST - 08/27/2024 11:00 AM EST Surgery [place] [address] Gulshan Elder MD [facility] [place] [address] EGD, UPPER GI ENDOSCOPY (WRVU 2.09) Scheduled [...] Routine 09/04/2017 6:09 PM EST INTRAOPERATIVE PTH ([facility]/CGP) STAT 09/04/2017 6:03 PM EST SPECIMEN TO PATHOLOGY Routine 09/04/2017 5:52 PM EST INTRAOPERATIVE PTH ([facility]) STAT 09/04/2017 4:49 PM EST INTRAOPERATIVE PTH ([facility]/CGP) STAT 09/04/2017 4:08 PM EST INTRAOPERATIVE PTH (DH/CGP) STAT 09/04/2017 4:02 PM EST SURGICAL PATHOLOGY REPORT Routine 2017 3:54 PM EST SPECIMEN TO PATHOLOGY STAT 09/04/2017 3:53 PM EST INTRAOPERATIVE PTH ([facility]) STAT 09/04/2017 3:35 PM EST FACIAL NERVE MONITORING, SETUP LARYNGEAL (WRVU 1.57) 09/04/2017 2:40 PM EST HPT PARATHYROIDECTOMY OR EXPLORATION OF PARATHYROID(S) (WRVU 15.6) 09/04/2017 2:40 PM EST HPT ECG SCAN 09/04/2017 12:00 AM EST documented in this encounter Results * Calcium (09/05/2017 5:20 AM EST) Calcium 9.3 8.5 - 10.5 mg/dL [facility] Blood specimen (specimen) 09/05/2017 5:20 AM EST 09/05/2017 5:20 AM EST Narrative Resulting Agency Comment Spec In Lab Yanet Trujillo MD CHEMISTRY ORDERAB LES Performing Organization Address City/[facility]/ZIP [place] [address] * Specimen to Pathology (09/04/2017 6:36 PM EST) AP Specimen 09/04/2017 6:36 PM EST 09/04/2017 6:44 PM EST Narrative [facility] - 09/04/2017 6:44 PM EST Specimen requisition ordered. ??Separate Pathology report to follow Resulting Agency Comment Spec In Lab aYnet Trujillo MD PATHOLOGY/CYTOLOG Y ORDERABLES Performing Organization Address City/[facility]/[place] [address] * Specimen to Pathology (09/04/2017 6:09 PM EST) AP Specimen 09/04/2017 6:09 PM EST 09/04/2017 6:09 PM EST Narrative [facility] - 09/04/2017 6:09 PM EST Specimen requisition ordered. ??Separate Pathology report to follow Yanet Trujillo MD PATHOLOGY/CYTOLOG Y ORDERABLES Performing Organization Address City/[facility]/[place] [address] * Intraoperative PTH ([facility]/CGP) (09/04/2017 6:03 PM EST) PTH, Intraoperative 32 9 - 77 pg/mL [facility] Comment: Called by: ERLIN, Read back by: Jennifer Salmeron, Date/Time:09/04/17 18:34. A 50 % decrease in venous iPTH levels at 10 min post adenoma excision is expected if all the hypersecreting parathyroid tissue has been removed (Tashi GL et al. Surgery 1993:114; [id number]) Blood specimen (specimen) 09/04/2017 6:03 PM EST 09/04/2017 6:08 PM EST Narrative Resulting Agency Comment Spec In Lab Yanet Trujillo MD CHEMISTRY ORDERAB LES Performing Organization Address [facility] Co de Phone Number [facility] [place] [address] * Specimen to Pathology (09/04/2017 5:52 PM EST) AP Specimen 09/04/2017 5:52 PM EST 09/04/2017 5:52 PM EST Narrative [facility] - 09/04/2017 5:52 PM EST Specimen requisition ordered. ??Separate Pathology report to follow Yanet Trujillo MD PATHOLOGY/CYTOLOG Y ORDERABLES Performing Organization Address [facility] Co de Phone Number [facility] [place] [address] * (ABNORMAL) Intraoperative PTH ([facility]/CGP) (09/04/2017 4:49 PM EST) PTH, Intraoperative 103(H) 9 - 77 pg/mL [facility] Comment: Called by: ERLIN, Read back by: Jennifer Salmeron, Date/Time:09/04/17 17:18. A 50 % decrease in venous iPTH levels at 10 min post adenoma excision is expected if all the hypersecreting parathyroid tissue has been removed (Tashi GL et al. Surgery 1993:114; [id number]) Blood specimen (specimen) 09/04/2017 4:49 PM EST 09/04/2017 4:52 PM EST Narrative Resulting Agency Comment Spec In Lab Yanet Trujillo MD CHEMISTRY ORDERAB LES Performing Organization Address [facility] Co de Phone Number [facility] [place] [address] * (ABNORMAL) Intraoperative PTH ([facility]/CGP) (09/04/2017 4:08 PM EST) PTH, Intraoperative 174(H) 9 - 77 pg/mL [facility] Comment: Called by: ERLIN, Read back by: Thao Nicole, Date/Time:09/04/17 16:40. A 50 % decrease in venous iPTH levels at 10 min post adenoma excision is expected if all the hypersecreting parathyroid tissue has been removed (Tashi GL et al. Surgery 1993:114; [id number]) Blood specimen (specimen) 09/04/2017 4:08 PM EST 09/04/2017 4:12 PM EST Narrative Resulting Agency Comment Spec In Lab Yanet Trujillo MD CHEMISTRY ORDERAB LES Performing Organization Address [facility] de Phone Number [facility] [place] [address] * (ABNORMAL) Intraoperative PTH (Leb/CGP) (09/04/2017 4:02 PM EST) PTH, Intraoperative 215(H) 9 - 77 pg/mL [facility] Comment: A 50 % decrease in venous iPTH levels at 10 min post adenoma excision is expected if all the hypersecreting parathyroid tissue has been removed (Tashi GL et al. Surgery 1993:114; [id number]) Blood specimen (specimen) 09/04/2017 4:02 PM EST 09/04/2017 4:06 PM EST Narrative Resulting Agency Comment Spec In Lab Yanet Trujillo MD CHEMISTRY ORDERAB LES Performing Organization Address [facility] Co de Phone Number [facility] [place] [address] * Surgical Pathology Report (09/04/2017 3:54 PM EST) Final Diagnosis [id number] ? Location: [facility]; [facility]; A The signing pathologist has (i) examined the [...] Nae Curiel Verified: ??09/06/2017 ?Pathologist Performed at: ??-[facility] Dept. of Pathology, [place], [place] DISCUSSION The intraoperathive PTH decreased from [...] x 0.6 x 0.3 cm. Tissue Description: Di Giorgio ovoid tissue. Sections/Processin g: (1) remainder of [...] serially sectioned and entirely submitted; (2-3) additional utility sales representative sections of thymus. (R3) D - [...] MD Verified: ??09/04/2017 ?Dermatopathologi st Performed at: ??-[facility] Dept. of Pathology, [place], [place] This intraoperative consultation should be interpreted as a preliminary diagnosis pending review of the entire specimen and special studies, if any. ?Frozen Section FROZEN SECTION DIAGNOSIS AFS - Right upper parathyroid gland for frozen section: Parathyroid tissue. 09/04/17 16:12 Electronically signed by: ??Nae Gale MD Verified: ??09/04/2017 ?Pathologist Performed at: ??-[facility] Dept. of Pathology, [place], [place] This intraoperative consultation should be interpreted as a preliminary diagnosis pending review of the entire specimen and special studies, if any. 09/06/2017 4:33 PM EST [facility] LYMPH NODE SPECIMEN / Unknown 09/04/2017 3:54 PM EST 09/04/2017 3:54 PM EST Frozen Specimen 09/04/2017 3 :54 PM EST 09/04/2017 3:54 PM EST THYMUS GLAND STRUCTURE / Unknown 09/04/2017 3:54 PM EST 09/04/2017 3:54 PM EST LYMPH NODE SPECIMEN / Unknown 09/04/2017 3:54 PM EST 09/04/2017 3:54 PM EST Yanet Trujillo MD PATHOLOGY/CYTOLOG Y ORDERABLES Performing Organization Address [facility]/ZIP Co de Phone Number [facility] [place] [address] * Specimen to Pathology (09/04/2017 3:53 PM EST) AP Specimen 09/04/2017 3:53 PM EST 09/04/2017 3:53 PM EST Narrative [facility] - 09/04/2017 3:53 PM EST Specimen requisition ordered. ??Separate Pathology report to follow Yanet Trujillo MD PATHOLOGY/CYTOLOG Y ORDERABLES Performing Organization Address City/[facility]/ZIP Co de Phone Number [facility] [place] [address] * (ABNORMAL) Intraoperative PTH (Leb/CGP) (09/04/2017 3:35 PM EST) PTH, Intraoperative 855(H) 9 - 77 pg/mL [facility] Comment: Called by: ERLIN, Read back by: Thao Nicole, Date/Time:09/04/17 16:05. A 50 % decrease in venous iPTH levels at 10 min post adenoma excision is expected if all the hypersecreting parathyroid tissue has been removed (Tashi GL et al. Surgery 1993:114; [id number]) Blood specimen (specimen) 09/04/2017 3:35 PM EST 09/04/2017 3:38 PM EST Narrative Resulting Agency Comment Spec In Lab Yanet Trujillo MD CHEMISTRY ORDERAB LES [facility] [place] [address] * SCAN DOC: ECG (09/04/2017 12:00 AM EST) Narrative 09/04/2017 12:00 AM EST Ordered by an unspecified provider. Scanning Provider MEDIA MGR SCAN EXT O RDR/RSLT documented in this encounter Visit Diagnoses Diagnosis Hyperparathyroidism Hyperparathyroidism, unspecified Hyperparathyroidism Hyperparathyroidism, unspecified Abnormal CT of the abdomen Nonspecific (abnormal) findings on radiological and other examination of abdominal area, including retroperitoneum Esophagitis Esophagitis, unspecified Gastroesophageal reflux disease with esophagitis, unspecified whether hemorrhage Colitis Other and unspecified noninfectious gastroenteritis and colitis Screen for colon cancer Special screening for malignant neoplasms, colon documented in this encounter Admitting Diagnoses Diagnosis Hyperparathyroidism [...] Routine Given 09/05/2017 8:37 AM EST 1,000 m g calcium citrate (CALCITRATE) tablet 950 mg 950 [...] AM EST 100 mg morphine 1 mg/mL RESIDENT PROGRAM SPECIALIST 50 mL Intravenous, RESIDENT PROGRAM SPECIALIST ONLY, Starting on Sun09/04/17 at 2100, Until Sun09/05/17 at 0758 New Syringe/Cartridge 09/04/2017 9:00 PM EST naloxone (NARCAN) injection 0.2 mg 0.2 mg, Intravenous, EVERY 1 MIN PRN, Starting on Sun09/04/17 at 2041, Until Sun09/05/17 at 1300, Opioid Reversal, May repeat every 60 seconds to increase respiratory rate. DO NOT exceed 2 mg total dose. Per RESIDENT PROGRAM SPECIALIST order., Routine ondansetron (ZOFRAN) injection 4 mg [...] hours, Routine 2023 (Given - Provider: Crystal Rivas, TODD) 0235 (Given - Provider: Hortencia Crum RN) [...] Provider: Crystal Rivas RN) morphine 1 mg/mL RESIDENT PROGRAM SPECIALIST 50 mL (CANCELED) Intravenous, RESIDENT PROGRAM SPECIALIST ONLY, Starting on Sun09/04/17 at 2100, Until [...] fentanyl for breakthrough pain., PACU Recovery, Routine 193 (Given - Provider: Crystal Rivas RN)1945 (Given [...] NOT exceed 2 mg total dose. Per RESIDENT PROGRAM SPECIALIST order., Routine ondansetron (ZOFRAN) injection 4 mg [...] Routine documented in this encounter Care Teams Bottom Loader Relationship Specialty Start Date End Date Yoni Ramírez MD [address] [place] [id number] PCP - General 07/05/10 documented as of this encounter
--- OUTSIDE RECORDS SUMMARY | 2024-07-31 18:46 | XMS_ITS | Encounter Summary ---
Author Organization [facility] Address [address] [place] [address] Care Team Providers Care Agricultural Research Technologist Name Role Phone Unknown, Provider MD Primary Care Provider Unava ilable Encounter Details Date Type Department Care Team (Late st Contact Info) Description 01/03/2020 Lab Requisition [facility] Pathology & Laboratory Medicine - [facility] [address] [place], [place] [address] Outr Resulting Lab, Provider Social History Tobacco Use Types Packs/Day Years Used Date Smoking Tobacco: Never Assessed Sex and Gender Information Value Date Recorded Sex Assigned at Not on file Legal Sex Male 18:17 EST Gender Identity Not on file Sexual Orientation Not on file documented as of this encounter Plan of Treatment Not on file documented as of this encounter Procedures Procedure Name Priority Date/Time Associated Diagnosis Comments FECAL BACTERIAL PATHOGENS BY PCR Routine 01/03/2020 10:46 EDT OVA/PARASITE EXAM Routine 01/03/2020 10: 46 EDT documented in this encounter Results * FECAL BACTERIAL PATHOGENS BY PCR (01/03/2020 10:46 EDT) Salmonella PCR Negative Negative 01/05/2020 11:49 EDT [facility] Shigella/Enteroin vasive E. coli Negative Negative 01/05/2020 11:49 EDT [facility] HN LAB CAMPYLOBACTER PCR Negative Negative 01/05/2020 11:49 EDT [facility] Shiga Toxin PCR Negative Negative 0 11:49 EDT [facility] Feces SPECIMEN FROM RECTUM / Unknown 01/03/2020 10:46 EDT 01/04/2020 20:52 EDT us Provider Outr Resulting Lab MICROBIOLOGY - GENER AL ORDERABLES Final Result Performing Organization Address [facility] Co de Phone Number [facility] [address] [place] [address] * OVA/PARASITE EXAM (01/03/2020 10:46 EDT) Parasite No ova and parasites seen. 01/05/2020 13:25 EDT [facility] Feces SPECIMEN FROM RECTUM / Unknown Stool Collect / Unknown 01/03/2020 10:46 EDT 01/04/2020 20:52 EDT Narrative [facility] - 01/05/2020 13:25 EDT (If Cryptosporidium, Cyclospora, or Microsporidium are suspected, specific tests must be requested.) Single negative specimen does not rule out the possibility of a parasitic infection. us Provider Outr Resulting Lab MICROBIOLOGY - GENER AL ORDERABLES Final Result Performing Organization Address [facility] Co de Phone Number [facility] [address] [place] [address] documented in this encounter Visit Diagnoses Not on filedocumented in this encounter Care Teams Agricultural Research Technologist Relationship Specialty Start Date End Date Unknown, Provider, PCP - General 02/14/13 documented as of this encounter
--- OUTSIDE RECORDS SUMMARY | 2024-07-31 18:46 | XMS_ITS | Encounter Summary ---
Author Organization [facility] Address [address] [place] [address] Care Team Providers Care Asphalt Plant Laborer Name Role Phone Unknown, Provider Primary Care Provider Unava ilable Encounter Details Date Type Department Care Team (Late st Contact Info) Description 07/19/[address] [facility] Pathology & Laboratory Medicine - [facility] [address] [place], [place] [address] Outr Resulting Lab, Provider Social History Tobacco [...] Procedure Name Priority Date/Time Associated Diagnosis Comments PSA TOTAL, DIAGNOSTIC Routine 07/18/2023 18:30 EST documented in this encounter Results * PSA TOTAL, DIAGNOSTIC (07/18/2023 18:30 EST) PSA <0.1 <=4.5 ng/mL 07/19/2023 20:10 EST [facility] Blood VENOUS BLOOD / Unknown 07/18/2023 18:30 EST 07/19/2023 18:26 EST Narrative [facility] - 07/19/2023 20:10 EST NOTE: Serum PSA concentration should not be interpreted as absolute evidence for the presence or absence of malignant disease. Assayed on Siemens [employer] XPT using chemiluminescent technology.??Values obtained by using different assay methods cannot be used interchangeably. us Provider Outr Resulting Lab CHEMISTRY & BLOOD GA S ORDERABLES Final Result [facility] [address] [place] [address] documented in this encounter Visit Diagnoses Not on filedocumented in this encounter Care Teams Asphalt Plant Laborer Relationship Specialty Start Date End Date Unknown, Provider, PCP - General 02/14/13 documented as of this encounter
--- OUTSIDE RECORDS SUMMARY | 2024-07-31 18:46 | XMS_ITS | Encounter Summary ---
Author Organization [facility] [place] [address] Care Team Providers Care Director Of Physical Education Name Role Phone Margaret Simon MD Primary Care Provider Reason for Visit * Reason Comments Hematemesis Encounter Details Date Type Department Care Team (Late st Contact Info) Description 03/27/2014 12:15 PM EDT - 03/27/2014 3:44 PM [place] [phone] Art Salazar MD [facility] [place] [address] EMERGENCY DEPT, [facility] [place] [address] Cyclical vomiting Discharge Disposition: Home Social History Tobacco Use [...] Sign Reading Time Taken Comments Blood Pressure 109/55 03/27/2014 3:39 PM EDT Pulse 72 03/27/2014 12:27 PM EDT Temperature 36.1 ??C (97 ??F) 03/27/2014 12:27 PM EDT Respiratory Rate 18 03/27/2014 12:27 PM EDT Oxygen Saturation 95% 03/27/2014 3:39 PM EDT Inhaled Oxygen Concentration - - Weight - - Height - - Body Mass Index - - documented in this encounter Discharge Instructions * Discharge Instructions* Rubin Huber MD - 03/27/2014 2:46 PM EDT Images from the original note were not included. [facility] Nausea and Vomiting: After Your Visit Your Care Instructions When you are nauseated, you may feel weak and sweaty and notice a lot of saliva in your mouth. Nausea often leads to vomiting. Most of the time you do not need to worry about nausea and vomiting, butthey can be signs of other illnesses. Two common causes of nausea and vomiting are stomach flu and food poisoning. Nausea and vomiting from viral stomach flu will usually start to improve within 24 hours. Nausea and vomiting from food poisoning may last from 12 to 48 hours. The doctor has checked you carefully, but problems can develop later. If you notice any problems ornew symptoms, get medical treatment right away. Follow-up care is a jacobson part of your treatment and safety. Be sure to make and go to all appointments, and call your doctor if you are having problems. It's also a good idea to know your test resultsand keep a list of the medicines you take. How can you care for yourself at home? ?? To prevent dehydration, drink plenty of fluids, enough so that your urine is light yellow or clear like water. Choose water and other caffeine-free clear liquids until you feel better. If you havekidney, heart, or liver disease and have to limit fluids, talk with your doctor before you increasethe amount of fluids you drink. ?? Rest in bed until you feel better. ?? When you are able to eat, try clear soups, mild foods, and liquids until all symptoms are gone for 12 to 48 hours. Other good choices include dry toast, crackers, cooked cereal, and gelatin dessert, such as Jell-O. When should you call for help? Call 911 anytime you think you may need emergency care. For example, call if: ?? You passed out (lost consciousness). Call your doctor now or seek immediate medical care if: ?? You have symptoms of dehydration, such as: ?? Dry eyes and a dry mouth. ?? Passing only a little dark urine. ?? Feeling thirstier than usual. ?? You have new or worsening belly pain. ?? You have a new or higher fever. ?? You vomit blood or what looks like coffee grounds. Watch closely for changes in your health, and be sure to contact your doctor if: ?? You have ongoing nausea and vomiting. ?? Your vomiting is getting worse. ?? Your vomiting lasts longer than 2 days. ?? You are not getting better as expected. Where can you learn more? Visit our health information library at [email or web address] You can also view health information on Goodzer, your personal patient account. Log in or sign up today. Enter H591 in the search box to learn more about Nausea and Vomiting: After Your Visit. ?? [phone] Ryla. Care instructions adapted under license by [facility]. This care instruction is for use with your licensed healthcare professional. If you have questions about a medical condition or this instruction, always ask your healthcare professional. Ryla disclaims any warranty or liability for your use of this information. Content Version: 9.9.619504; Last Revised: September 25, 2012 documented in this encounter Medications at Time of Discharge Medication Sig Dispensed Refills Start Date End Date HYDROmorphone (DILAUDID) 2 mg tablet Take 1 tablet by mouth every 4 hours as needed for Pain. No driving, no alcohol 20 tablet 0 03/26/2014 02/20/2017 ondansetron (ZOFRAN ODT) 4 mg oral disintegrating tablet Take 1-2 tablets by mouth every 8 hours as needed for Nausea. 12 tablet 1 03/26/2014 05/21/2017 HYDROmorphone (DILAUDID) 2 mg tablet Take 1 tablet by mouth every 4 hours as needed for Pain. No driving, no alcohol 5 tablet 0 03/26/2014 05/21/2017 ondansetron (ZOFRAN, HYDROCHLORIDE,) 4 mg tablet Take 1-2 tablets by mouth every 8 hours as needed for Nausea. 1 tablet 0 03/26/2014 02/20/2017 ondansetron (ZOFRAN) 4 mg tablet Take 1 tablet by mouth every 8 hours as needed for Nausea. 20 tablet 0 08/23/2013 02/20/2017 HYDROmorphone (DILAUDID) 2 mg tablet Take 2 mg by mouth daily. 02/20/2017 clonAZEpam (KLONOPIN) 1 mg tablet Take 1 mg by mouth nightly. 02/20/2017 lisinopril-hydrochlorothi azide (PRINZIDE;ZESTORETIC) 10-12.5 mg per tablet Take 1 tablet by mouth daily. 02/20/2017 documented as of this encounter ED Notes * Berta Mcelroy RN - 03/27/2014 2:45 PM EDT Patient given ice chips for his throat. * Berta Mcelroy RN - 03/27/2014 2:08 PM EDT Patient's vomiting has subsided. He is appears more comfortable. IV fluids infusing. No apparent distress. Lights down for comfort. * Art Salazar MD - 03/27/2014 12:54 PM EDT Chief Complaint Patient presents with ??? Hematemesis PCP: MARGARET SIMON MD PCP: [phone] Historians: Patient Jeff Arreguin a 48 y.o.male was seen at 12:54 PM HPI: Jeff Arreguin is a 48 y.o. male with previous h/o cyclical vomit, now presenting with vomiting and abdominal pain. The patient was seen in the ED last night for cold vomiting and abdominal pain. He was given IV fluids, Dilaudid, Ativan, Zofran with good effect and was discharged home. He reports that on Sunday he started vomiting and has been vomiting every hour. That time he hasn'tbeen able to take anything by mouth. He reports that since being discharged from the hospital last night he has continued to vomit and has been unable to tolerate by mouth intake. He also reports that his has started to have flecks of blood in his vomit. Often after vomiting for several days he repo rts having this. On arrival he is dynamically stable the complaining of diffuse abdominal pain and vomiting. He denies any chest pain, Palpitations, shortness of breath, dysuria, hematuria, diarrhea,constipation, blood in stool. Past Medical History Diagnosis Date ??? Hypertension ??? Arthritis Past Surgical History Procedure Date ??? Cholecystectomy, laparoscopic ??? Foot surgery left ??? Tonsillectomy ??? Ercp,diagnostic 08/22/2013 ERCP performed by Duane Garcia MD at [facility] ENDOSCOPY Family History Problem Relation Age of Onset ??? Type 2 Diabetes Father ??? Coronary Artery Disease Father ??? Ovarian Cancer Sister ??? Ovarian Cancer Mother Allergies Allergen Reactions ??? Ephedrine Anxiety ??? Lexapro (Escitalopram) Last value Range last 24 hrs Temperature Temp: 36.1 ??C (97 ??F) Temp: [36.1 ??C (97 ??F)] Heart Rate Heart Rate: 72 Heart Rate: [72] Blood Pressure BP: 119/48 mmHg BP: (119-164)/(48-92) Respiratory Rate Resp: 18 Resp: [18] SpO2 SpO2: 93 % SpO2: [91 %-100 %] Review of Systems Constitutional: Negative for fever, chills and activity change. HENT: Negative for congestion, sore throat, neck pain and neck stiffness. Eyes: Negative for visual disturbance. Respiratory: Negative for cough, chest tightness, shortness of breath and wheezing. Cardiovascular: Negative for chest pain, palpitations and leg swelling. Gastrointestinal: Positive for nausea, vomiting and abdominal pain. Negative for diarrhea, constipation, blood in stool and abdominal distention. Genitourinary: Negative for dysuria, hematuria and difficulty urinating. Musculoskeletal: Negative for back pain. Skin: Negative for rash. Neurological: Negative for dizziness. Physical Exam Nursing note and vitals reviewed. Constitutional: He is oriented to person, place, and time. He appears well- developed and well-nourished. No distress. HENT: Head: Normocephalic and atraumatic. Eyes: Pupils are equal, round, and reactive to light. Neck: Normal range of motion. Cardiovascular: Normal rate, regular rhythm and normal heart sounds. Exam reveals no gallop and no friction rub. No murmur heard. Pulmonary/Chest: Effort normal and breath sounds normal. No respiratory distress. He has no wheezes. He has no rales. He exhibits no tenderness. Abdominal: Soft. He exhibits no distension. There is tenderness. There is no guarding. Diffuse Musculoskeletal: Normal range of motion. He exhibits no edema. Neurological: He is alert and oriented to person, place, and time. Skin: Skin is warm and dry. He is not diaphoretic. Psychiatric: He has a normal mood and affect. Recent Results (from the past 24 hour(s)) CMP W/FASTING GLUCOSE Component Value Range Glucose Fasting 123 (*) 65 - 99 mg/dL BUN 16 10 - 20 mg/dL Creatinine 1.06 0.80 - 1.50 mg/dL Sodium 141 135 - 145 mmol/L Potassium 4.7 3.5 - 5.0 mmol/L Chloride 103 98 - 107 mmol/L CO2 28 22 - 31 mmol/L Anion Gap 10 5 - 15 mmol/L Calcium 10.2 8.5 - 10.5 mg/dL Total Protein 6.9 6.4 - 8.3 gm/dL Albumin 4.7 3.2 - 5.2 gm/dL AST 20 0 - 39 unit/L ALT 21 0 - 55 unit/L Alk Phos 97 40 - 120 unit/L Total Bilirubin 1.2 0.2 - 1.3 mg/dL Bili, Direct 0.3 0.0 - 0.3 mg/dL Estimated GFR >60 >=60 LIPASE Component Value Range Lipase 21 0 - 60 unit/L PROTHROMBIN TIME Component Value Range PT 13.7 12.5 - 15.5 sec INR 1.0 0.9 - 1.1 APTT Component Value Range PTT 28 25 - 35 sec HEMOGRAM Component Value Range WBC 11.7 (*) 4.0 - 10.0 x10(3)/mcL RBC 4.47 (*) 4.63 - 6.08 x10(6)/mcL Hemoglobin 15.2 13.7 - 17.5 gm/dL Hematocrit 44.1 40.0 - 51.0 % MCV 98.7 (*) 79.0 - 92.0 fL MCH 34.0 (*) 25.6 - 32.2 pg MCHC 34.5 32.0 - 36.5 gm/dL Platelets 285 145 - 370 x10(3)/mcL RDWSD 46.4 (*) 35.0 - 46.0 fL RDWCV 12.9 10.9 - 14.4 % MPV 10.1 9.0 - 12.0 fL DIFFERENTIAL, AUTOMATED Component Value Range Neutrophils % 87.1 (*) 34.0 - 71.0 % Neutr Abs (ANC) 10.20 (*) 1.50 - 6.30 x10(3)/mcL Lymphocytes % 7.9 (*) 19.0 - 53.0 % Lymphocytes Abs 0.9 (*) 1.0 - 3.6 x10(3)/mcL Monocytes % 4.5 4.0 - 13.0 % Monocyte Abs 0.5 0.2 - 1.0 x10(3)/mcL Eosinophils % 0.1 0.0 - 7.0 % Eosinophils Abs 0.0 0.0 - 0.5 x10(3)/mcL Basophils % 0.2 0.0 - 2.0 % Basophils Abs 0.0 0.0 - 0.2 x10(3)/mcL Immature Gran % 0.20 0.00 - 0.66 % Adrianna Gran Abs 0.02 0.00 - 0.05 x10(3)/mcL GOLD TUBE HOLD Component Value Range Gold Hold Sample in lab. I have reviewed the labs which are notable for: Mild leukocytosis I have reviewed the imaging which is notable for: None I have reviewed the EKG which is notable for: None I performed the following procedure(s): adult medical resuscitation. A/P: Jeff Arreguin is a 48 y.o. male history of cyclical vomiting presenting with diffuse abdominal pain and nausea and vomiting. Today his labs are benign and his nausea and vomiting have resolved with Zofran. His abdominal pain has improved with Dilaudid and he feels much better having had 2 L of IV fluid. Given his history and labs do not feel that there is any acute abdominal pathology and that rather this represents his chronic vomiting. He will plan to followup with his primary care physician. We have discussed return precautions and the patient is in agreement with the plan. Rubin Huber MD PGY-2 Pager [phone] Rubin Huber MD Resident 03/27/14 [id number] I saw this patient with resident. I agree with the history and physical as documented. I interviewed the patient myself to verify jacobson portions of the history. I performed the jacobson elements of the physical exam myself. Medical decision making in this note is my own. Patient with a history of cyclic vomiting concerned with vomiting blood, vital signs are stable, noanemia noted patient treated IV fluids, Dilaudid, Ativan and Zofran. Patient able tolerate liquids vital signs stable discharged home with careful instructions to return home. Patient and his are comfortable with plan Art Salazar MD 03/30/14 0806 * Eileen Tristan RN - 03/27/2014 12:38 PM EDT Pt escorted from registration area where he was loudly vomiting into a bag small amt of brownish/yellowish material w/ mucous in bag. Pt was here yesterday for similar s/sx, skin w/p/d. NAD. Denies chest pain or SOB. Cap refill less than2 sec. Pt getting undressed for exam. documented in this encounter Miscellaneous Notes * Discharge Summary - Provider, Scanning - 03/30/2014 8:41 AM EDT * Miscellaneous - Provider, Scanning - 03/27/2014 8:43 PM EDT * ED Triage - Ericka Adame RN - 03/27/2014 12:25 PM EDT I am throwing up blood just like yesterday, I dont feel well. Pt states he threw up blood today, and was seen here yesterday for the same. Pt with vomit bag that contains some spit up but no blood.Pt adds that he has abd pain, cant focus, feels weak. documented in this encounter Plan of Treatment Upcoming Encounters Date Type Department Care Team (Latest Contact Info) Description 08/05/2024 11:30 AM EST Office Visit Hematology/Oncolog y at [address] [phone] Deyvi Ibrahim MD [facility] HEMATOLOGY [place] [address] Isabel Berry APRN [facility] [place] [address] 08/05/2024 12:00 PM EST Infusion Hematology Oncology at [address] [phone] 08/27/2024 10:00 AM EST Hospital En[place] [phone] Gulshan Elder MD [facility] [place] [address] 08/27/2024 10:00 AM EST Anesthesia [place] [phone] Swati Gonzalez MD [facility] DR [place] [address] 08/27/2024 10:00 AM EST - 08/27/2024 11:00 AM EST [place] [phone] Gulshan Elder MD [facility] [place] [address] EGD, UPPER GI ENDOSCOPY (WRVU 2.09) Scheduled [...] Procedure Name Priority Date/Time Associated Diagnosis Comments CMP W/FASTING GLUCOSE STAT 03/27/2014 1:25 PM EDT HEMOGRAM STAT 03/27/2014 1:25 PM EDT DIFFERENTIAL, AUTOMATED STAT 03/27/2014 1:25 PM EDT GOLD TUBE HOLD STAT 03/27/2014 1:25 PM EDT APTT STAT 03/27/2014 1:25 PM EDT PROTHROMBIN TIME STAT 03/27/2014 1:25 PM EDT CBC (WITH DIFF) STAT 03/27/2014 1:25 PM EDT LIPASE STAT 03/27/2014 1:25 PM EDT documented in this encounter Results * Gold Tube HOLD (03/27/2014 1:25 PM EDT) Pathologist [facility] Gold Hold Sample in lab. EVELYN GONZÁLESIUM Blood specimen (specimen) 03/27/2014 1:25 PM EDT 03/27/2014 1:29 PM EDT Dk Barnard Jr., MD CHEMISTRY ORDERABL ES [facility] CELESTINAENNIUM * (ABNORMAL) Differential, Automated (03/27/2014 1:25 PM EDT) Neutrophil % 87.1(H) 34.0 - 71.0 % CERNER MILLENNIUM Neutrophil Absolute 10.20(H) 1.50 - 6.30 x10(3)/mc L CERNER MILLENNIUM Lymph % 7.9(L) 19.0 - 53.0 % CERNER MILLENNIUM Lymphocytes Abs 0.9(L) 1.0 - 3.6 x10(3)/mc L CERNER MILLENNIUM Monocyte % 4.5 4.0 - 13.0 % CERNER MILLENNIUM Monocyte Abs 0.5 0.2 - 1.0 x10(3)/mc L CERNER MILLENNIUM Eos % 0.1 0.0 - 7.0 % CERNER MILLENNIUM Eosinophils Abs 0.0 0.0 - 0.5 x10(3)/mc L CERNER MILLENNIUM Basophil % 0.2 0.0 - 2.0 % CERNER MILLENNIUM Baso Absolute 0.0 0.0 - 0.2 x10(3)/mc L CERNER MILLENNIUM Immature Gran % 0.20 0.00 - 0.66 % CERNER MILLENNIUM Comment: Immature granulocytes(IG's)percentage and absolute count will include metamyelocytes, myelocytes, and promyelocytes. Blood smears from CBCs yielding IG's will be scanned manually for concordance. If this scan disagrees with the automated IG or if promyelocytes are noted, a manual differential will be performed. Immature Gran Absolute 0.02 0.00 - 0.05 x10(3)/mc L CERNER MILLENNIUM Blood specimen (specimen) 03/27/2014 1:25 PM EDT 03/27/2014 1:28 PM EDT Narrative Resulting Agency Comment Spec In Lab Dk Barnard Jr., MD HEMATOLOGY ORDERAB LES EVELYN GRACIA * (ABNORMAL) Hemogram (03/27/2014 1:25 PM EDT) White Blood Cell 11.7(H) 4.0 - 10.0 x10(3)/mc L CERNER MILLENNIUM Red Blood Cell 4.47(L) 4.63 - 6.08 x10(6)/mc L CERNER MILLENNIUM Hemoglobin 15.2 13.7 - 17.5 gm/dL CERNER MILLENNIUM Hematocrit 44.1 40.0 - 51.0 % CERNER MILLENNIUM Mean Cell Volume 98.7(H) 79.0 - 92.0 fL CERNER MILLENNIUM Mean Cell Hemoglobin 34.0(H) 25.6 - 32.2 pg CERNER MILLENNIUM Mean Cell Hemoglobin Concentration 34.5 32.0 - 36.5 gm/dL CERNER MILLENNIUM Platelet 285 145 - 370 x10(3)/mc L CERNER MILLENNIUM RDW Standard Deviation 46.4(H) 35.0 - 46.0 fL CERNER MILLENNIUM RDW coefficient of variation 12.9 10.9 - 14.4 % CERNER MILLENNIUM Mean Platelet Volume 10.1 9.0 - 12.0 fL CERNER MILLENNIUM Blood specimen (specimen) 03/27/2014 1:25 PM EDT 03/27/2014 1:28 PM EDT Narrative Resulting Agency Comment Spec In Lab Dk Barnard Jr., MD HEMATOLOGY ORDERAB LES Performing Organization Address [facility] de Phone Number CERDAYLIN MILLENNIUM * APTT (03/27/2014 1:25 PM EDT) Partial Thromboplastin Time 28 25 - 35 sec CERNER MILLENNIUM Comment: Recommended therapeutic PTT range for full dose unfractionated heparin is 80-114 seconds. Blood specimen (specimen) 03/27/2014 1:25 PM EDT 03/27/2014 1:28 PM EDT Narrative Resulting Agency Comment Spec In Lab Dk Barnard Jr., MD HEMATOLOGY ORDERAB LES Performing Organization Address [facility] Co de Phone Number CERDAYLIN MILLENNIUM * Prothrombin Time (03/27/2014 1:25 PM EDT) Prothrombin Time 13.7 12.5 - 15.5 sec CERNER MILLENNIUM Comment: [facility] Transfusion Committee Guidelines: INR less than 2.0, PTT less than OR equal to 43.5 seconds, or Fibrinogen greater than or equal to 100 mg/dl indicate adequate procoagulant activity for hemostasis in patients without underlying bleeding disorders. International Normalization Ratio 1.0 0.9 - 1.1 CERNER MILLENNIUM Blood specimen (specimen) 03/27/2014 1:25 PM EDT 03/27/2014 1:28 PM EDT Narrative Resulting Agency Comment Spec In Lab Dk Barnard Jr., MD HEMATOLOGY ORDERAB LES CERDAYLIN GONZÁLESIUM * Lipase (03/27/2014 1:25 PM EDT) Lipase 21 0 - 60 unit/L CERNER MILLENNIUM Blood specimen (specimen) 03/27/2014 1:25 PM EDT 03/27/2014 1:28 PM EDT Narrative Resulting Agency Comment Spec In Lab Dk Barnard Jr., MD CHEMISTRY ORDERABL ES Performing Organization Address [facility]/ZIP Co de Phone Number EVELYN OSCARENNIUM * (ABNORMAL) CMP w/fasting Glucose (03/27/2014 1:25 PM EDT) Glucose Fasting 123(H) 65 - 99 mg/dL CERNER MILLENNIUM Comment: ?Fasting* Glucose Interpretive Criteria Normal ?65-99 mg/dL Impaired Fasting glucose ?100-125 mg/dL Consistent with Diabetes Mellitus ? >or= 126 mg/dL *Fasting is defined as no caloric intake for at least 8 hours In the absence of unequivocal hyperglycemia a plasma glucose value of >or= 126 mg/dL should be repeated on a subsequent day. Diagnosis and Classification of Diabetes Mellitus, Position Statement from the [place] [employer]. ??Diabetes Care, Volume 33, Supplement 1, Aug 2009 Blood Urea Nitrogen 16 10 - 20 mg/dL CERNER MILLENNIUM Creatinine 1.06 0.80 - 1.50 mg/dL CERNER MILLENNIUM Comment: Please note that the pediatric reference intervals supplied above were not validated at [facility] Results from pediatric patients should be interpreted in conjunction to the patient's age, height and muscle mass. Sodium 141 135 - 145 mmol/L CERNER MILLENNIUM Potassium 4.7 3.5 - 5.0 mmol/L CERNER MILLENNIUM Comment: Please note: ??Patients with WBC >100,000 may have falsely elevated Potassium levels. ??For accurate Potassium quantification in these patients send serum separator tube (gold top) for subsequent determinations. ??Contact the Clinical Chemistry Laboratory if there are any questions. Chloride 103 98 - 107 mmol/L CERNER MILLENNIUM Comment:result rechecked-kml Carbon Dioxide 28 22 - 31 mmol/L CERNER MILLENNIUM Anion Gap 10 5 - 15 mmol/L CERNER MILLENNIUM Calcium 10.2 8.5 - 10.5 mg/dL CERNER MILLENNIUM Protein, Total 6.9 6.4 - 8.3 gm/dL CERNER MILLENNIUM Albumin 4.7 3.2 - 5.2 gm/dL CERNER MILLENNIUM Aspartate Aminotransferase 20 0 - 39 unit/L CERNER MILLENNIUM Alanine Aminotransferase 21 0 - 55 unit/L CERNER MILLENNIUM Alkaline Phosphatase 97 40 - 120 unit/L CERNER MILLENNIUM Bilirubin, Total 1.2 0.2 - 1.3 mg/dL CERNER MILLENNIUM Bilirubin, Direct 0.3 0.0 - 0.3 mg/dL CERNER MILLENNIUM Est Glomerular Filtration Rate >60 >=60 CERNER MILLENNIUM Comment: This estimated GFR (eGFR) value was calculated using the MDRD equation which has been validated on patients between the ages of 18 and 70. The MDRD should not be used to assess kidney function in patients < 18 years of age or in patients with extremes of body mass, or in patients with acute kidney failure. This value should be multiplied by 1.2 for patients. For further information please copy and paste the following links into your internet browser. http://3rd Planet/DHnkdep [email or web address]://[email or web address] [email or web address]/DHMCnkf Blood specimen (specimen) 03/27/2014 1:25 PM EDT 03/27/2014 1:28 PM EDT Narrative Resulting Agency Comment Spec In Lab Dk Barnard Jr., MD CHEMISTRY ORDERABL ES [facility] Mark Forged documented in this encounter Visit Diagnoses Diagnosis Cyclical vomiting Persistent vomiting Abnormal CT of the abdomen [...] MAR Action Action Date Dose Rate Site HYDROmorphone (DILAUDID) injection 1 mg 1 mg, Intravenous, ONCE, 1 dose, On Sun03/27/14 at 1330, STAT Given 03/27/2014 1:22 PM EDT 1 mg HYDROmorphone (DILAUDID) injection 1 mg 1 mg, Intravenous, ONCE, 1 dose, On Sun03/27/14 at 1515, STAT Given 03/27/2014 2:45 PM EDT 1 mg HYDROmorphone (DILAUDID) injection 1 mg 1 mg, Intravenous, ONCE, 1 dose, On Sun03/27/14 at 1530, STAT Given 03/27/2014 3:18 PM EDT 1 mg ondansetron (ZOFRAN) injection 8 mg 8 mg, Intravenous, ONCE, 1 dose, On Sun03/27/14 at 1330, STAT Given 03/27/2014 1:21 PM EDT 8 mg documented in this encounter Active and Recently Administered Medications Times are shown in EDT. Scheduled Medication Order 03/25/2014 03/26/2014 03/27/2014 HYDROmorphone (DILAUDID) injection 1 mg (COMPLETED) 1 mg, Intravenous, ONCE, 1 dose, On Sun03/27/14 at 1330, STAT 1322 (Given - Provid er: Berta Mcelroy RN) HYDROmorphone (DILAUDID) injection 1 mg (COMPLETED) 1 mg, Intravenous, ONCE, 1 dose, On Sun03/27/14 at 1515, STAT 1445 (Given - Provid er: Berta Mcelroy RN) HYDROmorphone (DILAUDID) injection 1 mg (COMPLETED) 1 mg, Intravenous, ONCE, 1 dose, On Sun03/27/14 at 1530, STAT 1518 (Given - Provid er: eBrta Mcelroy RN) ondansetron (ZOFRAN) injection 8 mg (COMPLETED) 8 mg, Intravenous, ONCE, 1 dose, On Sun03/27/14 at 1330, STAT 1321 (Given - Provid er: Berta Mcelroy RN) documented in this encounter Care Teams Director Of Physical Education Relationship Specialty Start Date End Date Margaret Simon MD [address] [place] [id number] PCP - General 07/05/10 documented as of this encounter
--- OUTSIDE RECORDS SUMMARY | 2024-07-31 18:46 | XMS_ITS | Encounter Summary ---
Author Organization [facility] Address [address] [place] [address] Care Team Providers Care Pelota Maker Name Role Phone Unknown, Provider Primary Care Provider Unava ilable Encounter Details Date Type Department Care Team (Late st Contact Info) Description 10/06/2021 Lab Requisition [facility] Pathology & Laboratory Medicine - [facility] [address], [place] [id number] Outr Resulting Lab, Provider Social History Tobacco [...] Associated Diagnosis Comments PSA TOTAL, DIAGNOSTIC Routine 10/06/2021 15:40 EST documented in this encounter Results * PSA TOTAL, DIAGNOSTIC (10/06/2021 15:40 EST) PSA 2.1 0.0 - 3.5 ng/mL 10/07/2021 17:36 EST [facility] Blood VENOUS BLOOD / Unknown 10/06/2021 15:40 EST 10/07/2021 16:32 EST Narrative [facility] - 10/07/2021 17:36 EST NOTE: Serum PSA concentration should not be interpreted as absolute evidence for the presence or absence of malignant disease. Assayed on [employer] XPT using chemiluminescent technology.??Values obtained by using different assay methods cannot be used interchangeably. us Provider Outr Resulting Lab CHEMISTRY & BLOOD GA S ORDERABLES Final Result [facility] [address] [place] [address] documented in this encounter Visit Diagnoses Not on filedocumented in this encounter Care Teams Pelota Maker Relationship Specialty Start Date End Date Unknown, Provider, PCP - General 02/14/13 documented as of this encounter
--- OUTSIDE RECORDS SUMMARY | 2024-07-31 18:46 | XMS_ITS | Encounter Summary ---
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 Name Role Phone Yoni Ramírez MD Primary Care Provider Reason for Visit * Reason Comments Emesis Encounter Details Date Type Department Care Team (Late st Contact Info) Description 03/26/2014 6:33 AM EDT - 03/26/2014 11:58 AM EDT [place] [address] Wilbur Navarrete MD [facility] [address] [place] [address] Nausea with vomiting Discharge Disposition: Home Social History Tobacco [...] Sign Reading Time Taken Comments Blood Pressure 107/67 03/26/2014 11:30 AM EDT Pulse 87 03/26/2014 11:30 AM EDT Temperature 36.9 ??C (98.4 ??F) 03/26/2014 11:30 AM E DT Respiratory Rate 16 03/26/2014 11:30 AM EDT Oxygen Saturation 98% 03/26/2014 11:30 AM EDT Inhaled Oxygen Concentration - - Weight - - Height - - Body Mass Index - - documented in this encounter Discharge Instructions * Discharge Instructions* Lencho Martinez - 03/26/2014 8:04 AM EDT Images from the original note were not included. You were treated with intravenous (IV) fluids, Zofran (aka ondansetron, for nausea), and Ativan (aka lorazepam, for nausea) in the ED. We performed several blood tests in order to check your electrolyte levels (the salts in your blood), your kidney function, and your liver function and all were normal. Please return for any significant blood in your vomit (i.e., more than half a cup), continued symptoms of nausea and vomiting that stops you from keeping fluids down, new diarrhea, new fevers or chills, new chest pain, or vomiting things that look like coffee grounds. [facility] Nausea and Vomiting: After Your Visit Your [...] will usually start to improve within 24 ho urs. Nausea and vomiting from food poisoning may last from 12 to 48 hours. The doctor has checked you carefully, but problems can develop later. If you notice any problems or new symptoms, get medical treatment right away. Follow-up [...] more? Visit our health information library at [email or web address] You can also view health information on [employer], your personal patient account. Log in or sign up today. Enter H591 in the search box to learn more about Nausea and Vomiting: After Your Visit. ?? [id number] [employer]. Care instructions adapted under license by [facility]. This care instruction is for use with your licensed healthcare professional. If you have questions about a medical condition or this instruction, always ask your healthcare professional. [employer] disclaims any warranty or liability for your use of this information. Content Version: 9.9.232674; Last Revised: September 25, 2012 documented in [...] as of this encounter ED Notes * Barbara Weller RN - 03/26/2014 11:47 AM EDT advised that patient voided and that it is tea colored. He ok'd patient to be discharged. * Barbara Weller RN - 03/26/2014 11:[address] Harley notified that patient has still not voided, we will finish the 3rd liter and see if patientcan void. Patient also states that the Zofran po doesn't help the nausea. * Barbara Weller RN - 03/26/2014 10:20 AM EDT Patient is sitting up,talking with his on the phone. He states he is more comfortable. He still has not voided, he states the last time he voided was yesterday am. Patient states the pain has increased a little since he initially got good results but feels its tolerable at this level.Plan: MD to be notified regarding patients voiding status. * Barbara Weller RN - 03/26/2014 8:44 AM EDT Patient's called asking for an update. Patient is asked whether its all right to speak with him.He gives permission. She states he has had similar episodes in August and December of this year. He had his gallbladder out but these symptoms have persisted, he had an endoscopy since his surgery and one of his bile ducts were blocked. She states they tried to open it up. She is trying to decide about whether to come down which is a 2.5 hour trip, his son is here with him now. His son Yoni's cellphone is and 's phone number is * Barbara Weller RN - 03/26/2014 8:14 AM EDT Patient continues to drop his oxygen saturations to 88-89% for 1 -2 minutes at a time then back up to low 90's. He quit smoking 1.5 yrs ago after smoking x 30 yrs. He denies alcohol use. * Barbara Weller RN - 03/26/2014 7:47 AM EDT Documentation since 707 has been by this RN. I inadvertently charted on night RN check in. * Barbara Weller RN - 03/26/2014 7:36 AM EDT Late Entry: ED note at 0735 was inadvertently charted under TODD Harrell's sign in. * Cassi Chavez RN - 03/26/2014 7:35 AM EDT Patient has dropped his oxygen saturations to mid 80's x 2 since 0705 lasting for about 30-45 seconds. He denies SOB and his lungs are clear. Dr Harley notified. Plan: Continue to monitor and possible oxygen if this trend continues. * Wilbur Navarrete MD - 03/26/2014 7:32 AM EDT Chief Complaint Patient presents with ??? Emesis HPI Comments: 48 yo male with a history of cyclic vomiting who presents with N/V. The symptoms started 03:30 on Sunday. He describes several episodes of vomiting. He has not been able to tolerate food or water. The vomit with bilious, but with mucous tinged blood. He states that this is similar tohis typical episodes. He has mild diffuse abdominal pain, which he feels is related to his vomiting. He reports feeling lightheaded. He denies any diarrhea. No fever or chills. The history is provided by the patient. Allergies Allergen Reactions ??? Ephedrine Anxiety ??? Lexapro (Escitalopram) Review of Systems Constitutional: Negative for fever, chills and fatigue. HENT: Negative for congestion, rhinorrhea, neck pain and neck stiffness. Eyes: Negative for pain and visual disturbance. Respiratory: Negative for cough, choking, chest tightness and shortness of breath. Cardiovascular: Negative for chest pain. Gastrointestinal: Positive for nausea, vomiting and abdominal pain. Negative for diarrhea. Genitourinary: Negative for dysuria. Musculoskeletal: Negative for back pain. Skin: Negative for color change and pallor. Neurological: Negative for headaches. Physical Exam Nursing note and vitals reviewed. Constitutional: He is oriented to person, place, and time. He appears well- developed and well-nourished. No distress. HENT: Head: Normocephalic and atraumatic. Right Ear: External ear normal. Left Ear: External ear normal. Nose: Nose normal. Mouth/Throat: Oropharynx is clear and moist. No oropharyngeal exudate. Eyes: Conjunctivae normal and EOM are normal. Pupils are equal, round, and reactive to light. No scleral icterus. Neck: Normal range of motion. Neck supple. Cardiovascular: Normal rate, regular rhythm, normal heart sounds and intact distal pulses. Exam reveals no gallop and no friction rub. No murmur heard. Pulmonary/Chest: Effort normal and breath sounds normal. No respiratory distress. He has no wheezes. He has no rales. He exhibits no tenderness. Abdominal: Soft. He exhibits no distension and no mass. There is tenderness (diffuse). There is no rebound and no guarding. Musculoskeletal: Normal range of motion. He exhibits no edema and no tenderness. Neurological: He is alert and oriented to person, place, and time. Skin: Skin is warm and dry. No rash noted. He is not diaphoretic. No erythema. Procedures MDM 48-year-old male who presents the emergency department with cyclic vomiting. The patient's symptoms, history and examination are consistent with his typical cyclic vomiting. I have also considered biliary colic, SBO, mesenteric ischemia, esophogeal rupture or tear, gastroenteritis, appendicitis, renal colic; however, none of these are consistent with the patient's presentation. The patient is hemodynamically stable and nontoxic appearing. ED Course: Patient seen and evaluated in the Emergency Department at 7 AM. IV placed, patient given Zofran, Ativan, IV fluid. Labs obtained. Patient was given an additional 2 L of normal saline. He received 1 mg of Dilaudid for abdominal pain. I reevaluated the patient at 11 AM and his symptoms had nearly resolved. He was making urine and a well. I discussed return precautions with the patient and she was comfortable with discharge. Patient was given a prescription for Zofran and Dilaudid and discharged in good condition. Patient care discussed with attending physician. Lonny Harley MD Resident 03/26/14 1320 ED ATTENDING ADDENDUM: The patient was seen in conjunction with Dr. Harley, the resident physician. I have independently performed the jacobson portions of the history and physical exam. I have reviewed all diagnostic studies personally including labs. I have discussed the details of the case with the resident and agree with the assessment and plan as described in the resident note above unless noted otherwise below. In summary, N/V in patient with h/o cyclic vomiting. Similar to prior. Occ. Blood tinged, occ abd cramps. No F/C. No focal ttp on abdominal exam. Improved w/ Gwyn/IV fluid and ultimately d/c'd home. Wilbur Navarrete MD 03/28/14 1523 * Barbara Weller RN - 03/26/2014 7:09 AM EDT Late Entry: Patient note at 0708 was done by this RN, not by TODD Harrell. I inadvertently charted under her sign in. * Cassi Chavez RN - 03/26/2014 7:08 AM EDT Report received from TODD Harrell. Patient is lying quietly on stretcher, in no obvious acute distress.Skin is pink,warm and dry. See assessment flow sheet also. documented in this encounter Miscellaneous Notes * Discharge Summary - Provider, Scanning - 03/27/2014 8:16 AM EDT * Miscellaneous - Provider, Scanning - 03/26/2014 1:24 PM EDT * Med Student Progress Note - Lencho Martinez - 03/26/2014 7:28 AM EDT Patient Name: Jeff Arreguin Patient Age: 48 y.o. Birthdate: 1965 Admit date: 03/26/2014 Attending Physician: Wilbur Navrarete MD ED Med Student H&P 03/26/2014 HPI: 48 y.o. male with PMH significant for cyclic vomiting syndrome who presents to the ED with nausea and vomiting that started on Sunday at around 3am. He reports that the nausea awoke him from sleep and he began vomiting and has not stopped since. He says that he vomits between every 30 - 60 minutes and has not been able to keep anything down since Sunday. The vomit is bilious and since yesterday has been having specks of blood in the vomit. He has not vomited large amounts of blood. He has been trying to drinking fluids, but he endorses that they just come right back up. He has also been having some diffuse belly pain that started after the nausea and vomiting and feels that this islikely muscle strain from all the vomiting that he has been doing. He has not had any changes in his stools, no chest pain, no fevers/chills or other systemic symptoms. He has been quite lightheaded,feeling like I'm going to pass out for the past day. He reports that he has had a long 7 - 8 year history of cyclic vomiting syndrome with many admissions to [facility] over the years. He reports that usually either the symptoms resolve in the ED with fluids and Zofran or he is admit for control of this overnight. ROS: Constitutional: No F/C, no changes in weight, no changes in appetite. HEENT: +DIAL, no changes in vision, no ear pressure, no runny nose, no sore throat. CV: No chest tightness/pressure, no fast/heavy heartbeats, no JERRY. Resp: No SOB, no cough, no wheezing. GI: As above. : No dysuria, no frequency, no urgency, no bloody urine. Ext: No swelling. Heme: No swollen/painful glands. PMH: Past Medical History Diagnosis Date ??? Hypertension ??? Arthritis PSH: Past Surgical History Procedure Date ??? Cholecystectomy, laparoscopic ??? Foot surgery left ??? Tonsillectomy ??? Ercp,diagnostic 08/22/2013 ERCP performed by Duane Garcia MD at [facility] ENDOSCOPY PE: BP 107/67 Pulse 87 Temp 36.9 ??C (98.4 ??F) (Oral) Resp 16 SpO2 98% Gen: Well-appearing male, lying comfortably in bed in NAD. HEENT: NCAT, EOMI, PERRL, MMM, oropharynx without erythema, no cervical LND CV: RRR, nl S1/S2, no m/r/g, 2+ radial pulses. Resp: CTAB, no w/c/r, breathing comfortably on RA. GI: Normal BS, S/NT/ND, no tympany to percussion. Ext: No SANGITA, 2+ DP/PT pulses b/l. Skin: No rashes, lesions, or ecchymoses. Neuro: Normal strength in upper and lower extremities, CN II - XII intact. Labs: CBC Lab Results Component Value Date WBC 11.6* 03/26/2014 Hemoglobin 16.8 03/26/2014 Hematocrit 48.5 03/26/2014 Platelets 323 03/26/2014 Lab Results Component Value Date Sodium 136 03/26/2014 Potassium 3.8 03/26/2014 Chloride 94* 03/26/2014 CO2 26 03/26/2014 BUN 25* 03/26/2014 Creatinine 1.32 03/26/2014 Glucose Lvl 135 03/26/2014 LFTs: Recent Labs Basename 03/26/14 0645 PROT 8.1 ALBUMIN 5.2 BILITOT 1.7* BILIDIR 0.3 AST 23 ALT 22 ALKPHOS 113 Lipase 34 A/P: 48 y.o. male with PMH significant for cyclic vomiting syndrome who presents with likely exacerbation. Other diagnoses on the differential should include bowel obstruction, pancreatitis, hollow viscus perforation, UTI, and acute gastroenteritis. The patient's symptoms, however, are not convincing for any of these diagnoses. His electrolytes, CBC, LFTs, and lipase are significant for NJ with an increase in creatinine from 0.8 to 1.32. This is likely 2/2 pre-renal azotemia from dehydration and poor PO intake. He was given 3 L of NS, 4 mg of hydromorphone, and 8 mg of Zofran in the ED. Thiscontrolled his nausea, abdominal pain, and will improve his pre-renal NJ. He was discharged with a prescription for hydromorphone and Zofran and given return precautions. Lencho Martinez, MS4 ED subintern, pager [phone] * ED Triage - Cassi Chavez RN - 03/26/2014 6:33 AM EDT Patient arrives from home c/o chronic vomiting syndrome with current flair starting Sunday of this week. I think I waited too long to come in, the last time this happened my kidneys shut down Patient reports he is not able to tolerated any PO intake and that he has been not produced urine since yesterday. Patient appears uncomfortable. Emesis x1, (300 mls clear dark yellow fluid) since arrival in ED. documented in this encounter Plan of Treatment Upcoming Encounters Date Type Department Care Team (Latest Contact Info) Description 08/05/2024 11:30 AM EST Office Visit Hematology/Oncolog y at [address] [phone] Deyvi Ibrahim MD [facility] [address] HEMATOLOGY [place] [address] Isabel Berry APRN [facility] [place] [address] 08/05/2024 12:00 PM EST Infusion Hematology Oncology at [address] [phone] 08/27/2024 10:00 AM EST Hospital Encounter [place] [phone] Gulshan Elder MD [facility] [place] [address] 08/27/2024 10:00 AM EST Anesthesia [place] [phone] Swati Gonzalez MD [facility] [place] [address] 08/27/2024 10:00 AM EST - 08/27/2024 11:00 AM EST Surgery [place] [address] Gulshan Elder MD [facility] [place] [address] EGD, UPPER GI ENDOSCOPY (WRVU 2.09) Scheduled [...] Name Priority Date/Time Associated Diagnosis Comments HEMOGRAM STAT 03/26/2014 6:45 AM EDT DIFFERENTIAL, AUTOMATED STAT 03/26/2014 6:45 AM EDT CREATININE STAT 03/26/2014 6:45 AM EDT CBC (WITH DIFF) STAT 03/26/2014 6:45 AM EDT BUN STAT 03/26/2014 6:45 AM EDT LIPASE STAT 03/26/2014 6:45 AM EDT GLUCOSE STAT 03/26/2014 6:45 AM EDT HEPATIC FUNCTION PANEL STAT 03/26/2014 6:45 AM EDT ELECTROLYTES PANEL STAT 03/26/2014 6: 45 AM EDT EKG 12-LEAD STAT 03/26/2014 6:44 AM EDT documented in this encounter Results * (ABNORMAL) Differential, Automated (03/26/2014 6:45 AM EDT) Neutrophil % 57.4 34.0 - 71.0 % CERNER MILLENNIUM Neutrophil Absolute 6.68(H) 1.50 - 6.30 x10(3)/mc L CERNER MILLENNIUM Lymph % 30.9 19.0 - 53.0 % CERNER MILLENNIUM Lymphocytes Abs 3.6 1.0 - 3.6 x10(3)/mc L CERNER MILLENNIUM Monocyte % 9.9 4.0 - 13.0 % CERNER MILLENNIUM Monocyte Abs 1.2(H) 0.2 - 1.0 x10(3)/mc L CERNER MILLENNIUM Eos % 1.4 0.0 - 7.0 % CERNER MILLENNIUM Eosinophils Abs 0.2 0.0 - 0.5 x10(3)/mc L CERNER MILLENNIUM [...] x10(3)/mc L CERNER MILLENNIUM Blood specimen (specimen) 03/26/2014 6:45 AM EDT 03/26/2014 8:54 AM EDT Narrative Resulting Agency Comment Spec In Lab Wilbur Navarrete MD HEMATOLOGY ORDERABLE S CERDAYLIN OSCARENNIUM * (ABNORMAL) Hemogram (03/26/2014 6:45 AM EDT) White Blood Cell 11.6(H) 4.0 - 10.0 x10(3)/mc L CERNER MILLENNIUM Red Blood Cell 4.94 4.63 - 6.08 x10(6)/mc L CERNER MILLENNIUM Hemoglobin 16.8 13.7 - 17.5 gm/dL CERNER MILLENNIUM Hematocrit 48.5 40.0 - 51.0 % CERNER MILLENNIUM Mean Cell Volume 98.2(H) 79.0 - 92.0 fL CERNER MILLENNIUM Mean Cell Hemoglobin 34.0(H) 25.6 - 32.2 pg CERNER MILLENNIUM Mean Cell Hemoglobin Concentration 34.6 32.0 - 36.5 gm/dL CERNER MILLENNIUM Platelet 323 145 - 370 x10(3)/mc L CERNER MILLENNIUM RDW Standard Deviation 46.7(H) 35.0 - 46.0 fL CERNER MILLENNIUM RDW coefficient of variation 13.3 10.9 - 14.4 % CERNER MILLENNIUM Mean Platelet Volume 11.1 9.0 - 12.0 fL CERNER MILLENNIUM Blood specimen (specimen) 03/26/2014 6:45 AM EDT 03/26/2014 8:54 AM EDT Narrative Resulting Agency Comment Spec In Lab Wilbur Navarrete MD HEMATOLOGY ORDERABLE S CERNER MILLENNIUM * (ABNORMAL) Hepatic Function Panel (03/26/2014 6:45 AM EDT) Pathologist [facility] Protein, Total 8.1 6.4 - 8.3 gm/dL CERNER MILLENNIUM Albumin 5.2 3.2 - 5.2 gm/dL CERNER MILLENNIUM Aspartate Aminotransferase 23 0 - 39 unit/L CERNER MILLENNIUM Alanine Aminotransferase 22 0 - 55 unit/L CERNER MILLENNIUM Alkaline Phosphatase 113 40 - 120 unit/L CERNER MILLENNIUM Bilirubin, Total 1.7(H) 0.2 - 1.3 mg/dL CERNER MILLENNIUM Bilirubin, Direct 0.3 0.0 - 0.3 mg/dL CERNER MILLENNIUM Blood specimen (specimen) 03/26/2014 6:45 AM EDT 03/26/2014 8:54 AM EDT Narrative Resulting Agency Comment Spec In Lab Wilbur Navarrete MD CHEMISTRY ORDERABLES Performing Organization Address City/[facility] Co de Phone Number EVELYN GRACIA * Lipase (03/26/2014 6:45 AM EDT) Lipase 34 0 - 60 unit/L [facility] MILLEN[facility] Blood specimen (specimen) 03/26/2014 6:45 AM EDT 03/26/2014 8:54 AM EDT Narrative Resulting Agency Comment Spec In Lab Wilbur Navarrete MD CHEMISTRY ORDERABLES Performing Organization Address [facility] Co de Phone Number EVELYN GONZÁLESIUM * Glucose, random (03/26/2014 6:45 AM EDT) Glucose 135 60 - 199 mg/dL [facility] EyeJotENNIUM Comment:Diabetes: >=200 mg/d L plus symptoms Blood specimen (specimen) 03/26/2014 6:45 AM EDT 03/26/2014 8:54 AM EDT Narrative Resulting Agency Comment Spec In Lab Wilbur Navarrete MD CHEMISTRY ORDERABLES Performing Organization Address [facility] de Phone Number EVELYN GRACIA * (ABNORMAL) Creatinine (03/26/2014 6:45 AM EDT) Creatinine 1.32 0.80 - 1.50 mg/dL [facility] Comment: Please note that the pediatric reference intervals supplied above were not validated at [facility]. Results from pediatric patients should be interpreted in conjunction to the patient's age, height and muscle mass. Est Glomerular Filtration Rate 57(L) >=60 CERNER MILLENNIUM Comment: This estimated GFR [...] the following links into your internet browser. [email or web address] Blood specimen (specimen) 03/26/2014 6:45 AM EDT 03/26/2014 8:54 AM EDT Narrative Resulting Agency Comment Spec In Lab Wilbur Navarrete MD CHEMISTRY ORDERABLES Performing Organization Address [facility] de Phone Number CERNER MILLENNIUM * (ABNORMAL) BUN (03/26/2014 6:45 AM EDT) Blood Urea Nitrogen 25(H) 10 - 20 mg/dL CERNER MILLENNIUM Blood specimen (specimen) 03/26/2014 6:45 AM EDT 03/26/2014 8:54 AM EDT Narrative Resulting Agency Comment Spec In Lab Wilbur Navarrete MD CHEMISTRY ORDERABLES Performing Organization Address [facility] de Phone Number CERNER MILLENNIUM * (ABNORMAL) Electrolytes panel (03/26/2014 6:45 AM EDT) Sodium 136 135 - 145 mmol/L CERNER MILLENNIUM Potassium 3.8 3.5 - 5.0 mmol/L CERNER MILLENNIUM Comment: Please note: ??Patients with WBC >100,000 may have falsely elevated Potassium levels. ??For accurate Potassium quantification in these patients send serum separator tube (gold top) for subsequent determinations. ??Contact the Clinical Chemistry Laboratory if there are any questions. Chloride 94(L) 98 - 107 mmol/L CERNER MILLENNIUM Carbon Dioxide 26 22 - 31 mmol/L CERNER MILLENNIUM Anion Gap 16(H) 5 - 15 mmol/L CERNER MILLENNIUM Blood specimen (specimen) 03/26/2014 6:45 AM EDT 03/26/2014 8:54 AM EDT Narrative Resulting Agency Comment Spec In Lab Wilbur Navarrete MD CHEMISTRY ORDERABLES Performing Organization Address [facility] de Phone Number CERNER MILLENNIUM * EKG 12 Lead (03/26/2014 6:44 AM EDT) Ventricular rate 68 BPM MUSE SYSTEM Atrial Rate 68 BPM MUSE SYSTEM P-R Interval 136 ms MUSE SYSTEM QRS Duration 78 ms MUSE SYSTEM Q-T Interval 396 ms MUSE SYSTEM QTC Calculated (Bezet) 421 ms MUSE SYSTEM Calculated P [employer] 40 degrees MUSE SYSTEM Calculated R [employer] 16 degrees MUSE SYSTEM Calculated T [employer] 41 degrees MUSE SYSTEM INTERPRETATION Normal sinus rhythm with sinus arrhythmia Left atrial enlargement Borderline ECG No previous ECGs available Confirmed by MD Loraine, Tariq ([id number]) on 03/26/2014 11:40:53 PM MUSE SYSTEM 03/26/2014 6:44 AM EDT 03/26/2014 11:40 PM EDT Eleanor Mendoza MD ECG ORDERABLES MUSE SYSTEM documented in this encounter Visit Diagnoses Diagnosis Nausea with vomiting Abnormal CT of the abdomen Nonspecific [...] 1 mg, Intravenous, ONCE, 1 dose, On Sun03/26/14 at 0930, STAT Given 03/26/2014 9:25 AM EDT 1 mg LORazepam (ATIVAN) injection 0.5 mg 0.5 mg, Intravenous, ONCE, 1 dose, On Sun03/26/14 at 0800, STAT Given 03/26/2014 7:48 AM EDT 0.5 mg LORazepam (ATIVAN) injection 1 mg 1 mg, Intravenous, ONCE, 1 dose, On Sun03/26/14 at 0930, STAT Given 03/26/2014 9:22 AM EDT 1 mg ondansetron (ZOFRAN) 4 mg/2 mL injection 1 dose, Starting on [place] 03/26/14 at 0648, Until Sun03/26/14 at 0650, CASSI CHAVEZ: rojasinet override ondansetron (ZOFRAN) injection 4 mg 4 mg, Intravenous, ONCE, 1 dose, On [place] 03/26/14 at 0730, STAT Given 03/26/2014 6:50 AM EDT 4 mg ondansetron (ZOFRAN) injection 4 mg 4 mg, Intravenous, ONCE, 1 dose, On [place] 03/26/14 at 0800, STAT Given 03/26/2014 7:45 AM EDT 4 mg ondansetron (ZOFRAN) injection 4 mg 4 mg, Intravenous, ONCE, 1 dose, On [place] 03/26/14 at 0845, STAT Given 03/26/2014 6:49 AM EDT 4 mg sodium chloride 0.9% 1,000 mL IV bolus Intravenous, ONCE, 1 dose, On [place] 03/26/14 at 0730 Given 03/26/2014 6:45 AM EDT sodium chloride 0.9% 1,000 mL IV bolus Intravenous, ONCE, 1 dose, On [place] 03/26/14 at 0800 Given 03/26/2014 8:00 AM EDT sodium chloride 0.9% 1,000 mL IV bolus Intravenous, ONCE, 1 dose, On [place] 03/26/14 at 0845 Given 03/26/2014 6:47 AM EDT sodium chloride 0.9% 1,000 mL IV bolus Intravenous, ONCE, 1 dose, On [place] 03/26/14 at 1045 Given 03/26/2014 10:25 AM EDT documented in this encounter Active and Recently Administered Medications Times are shown in EDT. Scheduled Medication Order 03/24/2014 03/25/2014 03/26/2014 HYDROmorphone (DILAUDID) injection 1 mg (COMPLETED) 1 mg, Intravenous, ONCE, 1 dose, On [place] 03/26/14 at 0930, STAT 0925 (Given - Provid er: Barbara Weller RN) LORazepam (ATIVAN) injection 0.5 mg (COMPLETED) 0.5 mg, Intravenous, ONCE, 1 dose, On [place] 03/26/14 at 0800, STAT 0748 (Given - Provid er: Barbara Weller RN) LORazepam (ATIVAN) injection 1 mg (COMPLETED) 1 mg, Intravenous, ONCE, 1 dose, On [place] 03/26/14 at 0930, STAT 0922 (Given - Provid er: Barbara Weller RN) ondansetron (ZOFRAN) injection 4 mg (COMPLETED) 4 mg, Intravenous, ONCE, 1 dose, On [place] 03/26/14 at 0730, STAT 0650 (Given - Provid er: Cassi Chavez RN) ondansetron (ZOFRAN) injection 4 mg (COMPLETED) 4 mg, Intravenous, ONCE, 1 dose, On [place] 03/26/14 at 0800, STAT 0745 (Given - Provid er: Barbara Weller RN) ondansetron (ZOFRAN) injection 4 mg (COMPLETED) 4 mg, Intravenous, ONCE, 1 dose, On [place] 03/26/14 at 0845, STAT 0649 (Given - Provid er: Barbara Weller RN - Comment: Given by night RN) sodium chloride 0.9% 1,000 mL IV bolus (COMPLETED) Intravenous, ONCE, 1 dose, On [place] 03/26/14 at 0730 0645 (Given - Provid er: Cassi Chavez RN) sodium chloride 0.9% 1,000 mL IV bolus (COMPLETED) Intravenous, ONCE, 1 dose, On [place] 03/26/14 at 0800 0800 (Given - Provid er: Barbara Weller RN) sodium chloride 0.9% 1,000 mL IV bolus (COMPLETED) Intravenous, ONCE, 1 dose, On [place] 03/26/14 at 0845 0647 (Given - Provid er: Barbara Weller RN - Comment: Given by night RN) sodium chloride 0.9% 1,000 mL IV bolus (COMPLETED) Intravenous, ONCE, 1 dose, On [place] 03/26/14 at 1045 1025 (Given - Provid er: Barbara Weller RN) documented in this encounter Care Teams Shear Grinder Operator Relationship Specialty Start Date End Date Yoni Ramírez MD [address] [address] PCP - General 07/05/10 documented as of this encounter
--- OUTSIDE RECORDS SUMMARY | 2024-07-31 18:46 | XMS_ITS | Encounter Summary ---
Author Organization [facility] [place] [address] Care Team Providers Care Neuropsychology Director Name Role Phone Yoni Ramírez MD Primary Care Provider [phone] Reason for Visit * Reason Comments GI Problem Encounter Details Date Type Department Care Team (Late st Contact Info) Description 07/24/2013 2:00 PM EST Office [place] [phone] Lidia Vyas APRN [facility] [place]STROENTER[place] [address] Elevated liver function tests (Primary Dx); Unspecified viral hepatitis C without hepatic coma Discharge Disposition: Home Social History Tobacco Use Types Packs/Day Years Used Date Smoking Tobacco: Former Cigarettes 1 25 0 08/13/1986 - 08/13/2011 Alcohol Use Standard Drinks/Week Comments Yes 6.7 (1 standard drink = 0.6 oz p ure alcohol) Sex and Gender Information Value Date Recorded Sex Assigned at Not on file Gender Identity Not on file Sexual Orientation Not on file documented as of this encounter Last Filed Vital Signs Vital Sign Reading Time Taken Comments Blood Pressure - - Pulse - - Temperature - - Respiratory Rate - - Oxygen Saturation - - Inhaled Oxygen Concentration - - Weight 102.1 kg (225 lb) 07/24/2013 1:56 PM EST Height 180.3 cm (5' 11) 07/24/2013 1:56 PM EST Body Mass Index 31.38 07/24/2013 1:56 PM EST documented in this encounter Progress Notes * Lidia Vyas APRN - 07/24/2013 2:17 PM EST Subjective: Patient ID: Jeff Arreguin is a 48 y.o. male. HPI Mr. Arreguin is a 48 year old male referred by Dr. Ramírez for further evaluation and management of nausea and jaundice. Mr. Arreguin is a 48 year old male who had a gallbladder attack several years ago and he ended up witha lap romeo in 2009. He was having nausea, vomiting and cold chills and hot flashes, he was unable to keep food and fluids down. These attacks continued after his surgery. They tend to happen in the morning or early afternoon. The bouts can last for 18 hours. He last had an episode in February 2013. Hemay have 3-4 attacks a year. He does loose weight during the episodes but then returns to normal inbetween bouts. He denies gi tract bleeding, he does have some bleeding after he wretches for long periods. He feels well in between these attacks. He travels internationally for work and last did so in the , now traveling in the [place]. OUTSIDE RECORDS: 03/28/2013 MRCP No intrahep nor extrahep ductal dilatation, no strictures, no pancreatic head mass, no pancreatic ductal dilatation, 05/07/2013 Ferritin 310, iron 395, tibc 395, transferrin 18% Hep B sag neg Hep C ab Pos ast 18, alt 29, tprot 7.3, alb 4.4, ap 111, tbili 0.78 Undated liver tests tprot 6.9, ast 57, alt 94, ap 150, alb 3.9, dbili 0.5 7.8.2012 Wbc 9.2, hg 15.6, plt 255 tbili 1.09 02/15/2013 tbili 2.4 7.5.2013 tbili 2.4 hiv neg 7.4.2013 hcv rna <43- 7.3.2012 EGD White coating thought to be Esophageal candidiasis, small hiatal hernia Path: erosive esophagitis, no fungal organisms 2..13 Creat 0.9 Past Medical History Diagnosis Date ??? Hypertension ??? Arthritis Past Surgical History Procedure Date ??? Cholecystectomy, laparoscopic ??? Foot surgery left ??? Tonsillectomy Family History Problem Relation Age of Onset ??? Type 2 Diabetes Father ??? Coronary Artery Disease Father ??? Ovarian Cancer Sister ??? Ovarian Cancer Mother History Social History ??? Marital Status: Spouse Name: N/A Number of Children: N/A ??? Years of Education: N/A Social History Main Topics ??? Smoking status: Former Smoker -- 1.0 packs/day for 25 years Quit date: 08/13/2011 ??? Smokeless tobacco: None ??? Alcohol Use: 4.0 oz/week 8 drink(s) per week ??? Drug Use: No ??? Sexually Active: None Other Topics Concern ??? Blood Transfusions No ??? 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 HENT: Positive for tinnitus. Negative for nosebleeds. Respiratory: Negative for cough and shortness of breath. Cardiovascular: Negative for chest pain, palpitations and leg swelling. Gastrointestinal: Positive for nausea, vomiting, abdominal pain and blood in stool. Genitourinary: Negative for dysuria, urgency and hematuria. Musculoskeletal: Positive for myalgias and joint swelling. Negative for back pain. Skin: Negative for rash. Neurological: Negative for light-headedness and headaches. Hematological: Negative for adenopathy. Does not bruise/bleed easily. Psychiatric/Behavioral: Negative for dysphoric mood. The patient is nervous/anxious. Objective: Physical Exam Constitutional: He is oriented to person, place, and time. He appears well- developed and well-nourished. HENT: Head: Normocephalic and atraumatic. Eyes: Pupils are equal, round, and reactive to light. No scleral icterus. Neck: No thyromegaly present. Cardiovascular: Normal rate, regular rhythm and normal heart sounds. No murmur heard. Pulmonary/Chest: Effort normal and breath sounds normal. He has no wheezes. Abdominal: Soft. Bowel sounds are normal. He exhibits no ascites and no mass. There is no hepatosplenomegaly. There is no tenderness. Musculoskeletal: He exhibits no edema. Neurological: He is alert and oriented to person, place, and time. Skin: Skin is warm and dry. Psychiatric: He has a normal mood and affect. His behavior is normal. Assessment and Plan: Mr. Arreguin is a pleasant 48 year old male with episodic abdominal pain accompanied by nausea, vomiting, chills and significant malaise which occurs several times per year and has persisted past his lap romeo done several years ago. He has had evidence of mild elevation of his bilirubin during an attack. He has had a complete evaluation including MRCP, EGD, ultrasound which have essentially been negative. I discussed this case with Dr. Guerra who agrees to perform and ERCP to evaluate for choledocolithiasis versus spinchter of oddi dysfunction. I discussed the risks of the procedure with Jeff today and he agrees to proceed. He does have a positive ab test to hepatitis C without significant risk factors and he had a negative viral load test done before the Hep C ab test, will repeat the RNA test today to exlude acute infection although this is not likely. * Lidia Vyas APRN - 07/24/2013 2:17 PM EST documented in this encounter Miscellaneous Notes * Addendum Note - Nakul Avila - 07/24/2013 3:28 PM ESTAddended by: NAKUL AVILA on: 07/24/2013 03:28 PM Modules accepted: Orders documented in this encounter Plan of Treatment Upcoming Encounters Date Type Department Care Team (Latest Contact Info) Description 08/05/2024 11:30 AM EST Office Visit Hematology/Oncolog y at [address] [phone] Deyvi Ibrahim MD [facility] HEMATOLOGY [place] [address] Isabel Berry APRN [facility] [place] [address] 08/05/2024 12:00 PM EST Infusion Hematology Oncology at [address] [phone] 08/27/2024 10:00 AM EST Hospital Encounter [place] [phone] Gulshan Elder MD [facility] [place] [address] 08/27/2024 10:00 AM EST Anesthesia [place] [phone] Swati Gonzalez MD [facility] DR [place] [address] 08/27/2024 10:00 AM EST - 08/27/2024 11:00 AM EST [place] [phone] Gulshan Elder MD [facility] [place] [address] EGD, UPPER GI ENDOSCOPY (WRVU 2.09) Scheduled [...] Procedure Name Priority Date/Time Associated Diagnosis Comments HCV QUANT Routine 07/24/2013 3:34 PM EST Elevated liver function tests DIFFERENTIAL, AUTOMATED Routine 07/24/2013 3:34 PM EST HEPATITIS C RNA, QUANTITATIVE, PCR Routine 07/24/2013 3:34 PM EST Elevated liver function tests PROTHROMBIN TIME Routine 07/24/2013 3:34 PM EST Elevated liver function tests Unspecified viral hepatitis C without hepatic coma CBC (WITH DIFF) Routine 07/24/2013 3:34 PM EST Elevated liver function tests ERCP Routine 07/24/2013 3:12 PM EST Elevated liver function tests documented in this encounter Results * Differential, Automated (07/24/2013 3:34 PM EST) Neutrophil % 50.0 34.0 - 71.0 % CERNER MILLENNIUM Neutrophil Absolute 4.10 1.50 - 6.30 x10(3)/mcL CERNER MILLENNIUM Lymph % 37.0 19.0 - 53.0 % CERNER MILLENNIUM Lymphocytes Abs 3.0 1.0 - 3.6 x10(3)/mcL CERNER MILLENNIUM Monocyte % 8.3 4.0 - 13.0 % CERNER MILLENNIUM Monocyte Abs 0.7 0.2 - 1.0 x10(3)/mcL CERNER MILLENNIUM Eos % 4.3 0.0 - 7.0 % CERNER MILLENNIUM Eosinophils Abs 0.4 0.0 - 0.5 x10(3)/mcL CERNER MILLENNIUM Basophil % 0.2 0.0 - 2.0 % CERNER MILLENNIUM Baso Absolute 0.0 0.0 - 0.2 x10(3)/mcL CERNER MILLENNIUM Immature Gran % 0.20 0.00 - 0.66 % CERNER MILLENNIUM Comment: Immature granulocytes(IG's)percentage and absolute count will include metamyelocytes, myelocytes, and promyelocytes. Blood smears from CBCs yielding IG's will be scanned manually for concordance. If this scan disagrees with the automated IG or if promyelocytes are noted, a manual differential will be performed. Immature Gran Absolute 0.02 0.00 - 0.05 x10(3)/mcL CERNER MILLENNIUM Blood specimen (specimen) 07/24/2013 3:34 PM EST 07/24/2013 3:44 PM EST Michael Ventura MD HEMATOLOGY ORDERABL ES CERNER CELESTINAENNIUM * HCV Quant Rosangela (07/24/2013 3:34 PM EST) [facility] HCV Viral Load <43 IU/mL [facility] HCV Viral Load Result: < 43 [...] This assay is being performed in the [facility] Molecular Pathology Laboratory. Philippe Nagel, Ph.D. Director, Molecular Pathology [facility] Comment: [VERIFIED DATE]07.29.13 Verified By:Salina Carranza (Electronic Signature) Blood specimen (specimen) 07/24/2013 3:34 PM EST 07/24/2013 3:44 PM EST Narrative Resulting Agency Comment Spec In Lab Michael Ventura MD HEMATOLOGY ORDERABL ES [facility] * (ABNORMAL) CBC (with Diff) (07/24/2013 3:34 PM EST) [facility] White Blood Cell 8.2 4.0 - 10.0 x10(3)/mc L [facility] Red Blood Cell 4.26(L) 4.63 - 6.08 x10(6)/mc L CERNER MILLENNIUM Hemoglobin 14.2 13.7 - 17.5 gm/dL [facility] MILL[facility]UM Hematocrit 42.3 40.0 - 51.0 % CERNER MILLENNIUM Mean Cell Volume 99.3(H) 79.0 - 92.0 fL CERNER MILLENNIUM Mean Cell Hemoglobin 33.3(H) 25.6 - 32.2 pg CERNER MILLENNIUM Mean Cell Hemoglobin Concentration 33.6 32.0 - 36.5 gm/dL CERNER MILLENNIUM Platelet 275 145 - 370 x10(3)/mc L CERNER MILLENNIUM RDW Standard Deviation 44.8 35.0 - 46.0 fL CERNER MILLENNIUM RDW coefficient of variation 12.5 10.9 - 14.4 % CERNER MILLENNIUM Mean Platelet Volume 9.6 9.0 - 12.0 fL CERNER MILLENNIUM Blood specimen (specimen) 07/24/2013 3:34 PM EST 07/24/2013 3:44 PM EST Narrative Resulting Agency Comment Spec In Lab Michael Ventura MD HEMATOLOGY ORDERABL ES Performing Organization Address City/[facility] Co de Phone Number EVELYN GRACIA * Prothrombin Time (07/24/2013 3:34 PM EST) Prothrombin Time 13.2 12.0 - 15.0 sec CERNER MILLENNIUM Comment: [facility] Transfusion Committee Guidelines: INR less than 2.0, PTT less than OR equal to 43.5 seconds, or Fibrinogen greater than or equal to 100 mg/dl indicate adequate procoagulant activity for hemostasis in patients without underlying bleeding disorders. International Normalization Ratio 1.0 0.9 - 1.1 CERNER MILLENNIUM Blood specimen (specimen) 07/24/2013 3:34 PM EST 07/24/2013 3:44 PM EST Narrative Resulting Agency Comment Spec In Lab Michael Ventura MD HEMATOLOGY ORDERABL ES Performing Organization Address [facility] Phone Number EVELYN GRACIA documented in this encounter Visit Diagnoses Diagnosis Elevated liver function tests- Primary Other abnormal blood chemistry Unspecified viral hepatitis C without hepatic coma Abnormal CT of the abdomen Nonspecific (abnormal) findings on radiological and other examination of abdominal area, including retroperitoneum Esophagitis Esophagitis, unspecified Gastroesophageal reflux disease with esophagitis, unspecified whether hemorrhage Colitis Other and unspecified noninfectious gastroenteritis and colitis Screen for colon cancer Special screening for malignant neoplasms, colon documented in this encounter Care Teams Neuropsychology Director Relationship Specialty Start Date End Date Yoni Ramírez MD [address] [place] [id number] PCP - General 07/05/10 documented as of this encounter
--- OUTSIDE RECORDS SUMMARY | 2024-07-31 18:46 | XMS_ITS | Encounter Summary ---
Author Organization [facility] Address [address] [place] [address] Care Team Providers Care Platform Operations Director Name Role Phone Unknown, Provider Primary Care Provider Valerie solomon Encounter Details Date Type Department Care Team (Late st Contact Info) Description 05/17/2021 Lab Requisition [facility] Pathology & Laboratory Medicine - [facility] [address], [place] [id number] Outr Resulting Lab, Provider Social History Tobacco [...] Procedure Name Priority Date/Time Associated Diagnosis Comments ANTI NUCLEAR AB (RONI), IFA Routine 05/16/2021 17:15 EDT documented in this encounter Results * (ABNORMAL) ANTI NUCLEAR AB (RONI), IFA (05/16/2021 17:15 EDT) RONI Interpretation Positive(A) Negative 05/18/2021 14:41 EDT [facility] RONI Titer and Pattern 1 1:80 Homogeneous 05/18/2021 14:41 EDT [facility] Blood VENOUS BLOOD / Unknown 05/16/2021 17:15 EDT 05/17/2021 16:00 EDT Narrative [facility] - 05/18/2021 14:41 EDT Results were obtained with the INOVA NOVA Lite HEp-2 RONI Kit by indirect immunofluorescence. us Provider Outr Resulting Lab IMMUNOLOGY AND SEROL OGY ORDERABLES Final Result [facility] [address] [place] [id number] documented in this encounter Visit Diagnoses Not on filedocumented in this encounter Care Teams Platform Operations Director Relationship Specialty Start Date End Date Unknown, Provider, PCP - General 02/14/13 documented as of this encounter
--- OUTSIDE RECORDS SUMMARY | 2024-07-31 18:46 | XMS_ITS | Encounter Summary ---
Author Organization [facility] Address [address] [place] [address] Care Team Providers Care Edge Inker Uppers Name Role Phone Unknown, Provider Primary Care Provider Unava ilable Encounter Details Date Type Department Care Team (Latest Contact Info) Description 04/16/2015 10:29 EDT - 04/16/2015 23:59 EDT Hospital Encounter [address] [address] Unknown, ProviderMD Discharge Disposition: Home or Self Care Social History Tobacco Use Types Packs/Day Years Used Date Smoking Tobacco: Never Assessed Sex and Gender Information Value Date Recorded Sex Assigned at Not on file Legal Sex Male 18:17 EST Gender Identity Not on file Sexual Orientation Not on file documented as of this encounter Discharge Disposition Disposition Code Departure Means Destination Home or Self Jail documented in this encounter Plan of Treatment Not on file documented as of this encounter Visit Diagnoses Not on filedocumented in this encounter Care Teams Edge Inker Uppers Relationship Specialty Start Date End Date Unknown, ProviderMD PCP - General 02/14/13 documented as of this encounter
--- OUTSIDE RECORDS SUMMARY | 2024-07-31 18:46 | XMS_ITS | Encounter Summary ---
Author Organization [facility] [place] [address] Care Team Providers Care Cardiovascular Technician Name Role Phone Yoni Ramírez MD Primary Care Provider Encounter Details Date Type Department Care Team (Late st Contact Info) Description 10/14/2013 Telephone [place] [phone] Breezy Bragg MD [facility] [place] [address] Social History Tobacco Use Types Packs/Day Years [...] encounter Miscellaneous Notes * Telephone Encounter - Breezy Bragg - 10/14/2013 2:51 PM EST error documented in this encounter Plan of Treatment Upcoming Encounters Date Type Department Care Team (Latest Contact Info) Description 08/05/2024 11:30 AM EST Office Visit Hematology/Oncolog y at [address] [phone] Deyvi Ibrahim MD [facility] [address] [place] [address] Isabel Berry APRN [facility] [place] [address] 08/05/2024 12:00 PM EST Infusion Hematology Oncology at [address] [phone] 08/27/2024 10:00 AM EST Hospital Encounter [place] [phone] Gulshan Elder MD [facility] [place] [address] 08/27/2024 10:00 AM EST Anesthesia [place] [phone] Swati Gonzalez MD [facility] [place] [address] 08/27/2024 10:00 AM EST - 08/27/2024 11:00 AM EST Surgery [place] [phone] Gulshan Elder MD [facility] [place] [address] EGD, UPPER GI ENDOSCOPY (WRVU 2.09) Scheduled [...] on filedocumented in this encounter Care Teams Cardiovascular Technician Relationship Specialty Start Date End Date Yoni Ramírez MD [address] [place] [id number] PCP - General 07/05/10 documented as of this encounter
--- OUTSIDE RECORDS SUMMARY | 2024-07-31 18:46 | XMS_ITS | Encounter Summary ---
Author Organization [facility] Address [address] [place] [address] Care Team Providers Care Executive Coach Name Role Phone Unknown, Provider Primary Care Provider Unava ilable Encounter Details Date Type Department Care Team (Late st Contact Info) Description 04/06/2020 Lab Requisition [facility] Pathology & Laboratory Medicine - [facility] [address] [place], [place] [address] Outr Resulting Lab, Provider Social History Tobacco [...] Procedure Name Priority Date/Time Associated Diagnosis Comments ZZCOVID-19 TEST [facility] PCR Today 04/05/2020 21:45 EDT COVID-19 TESTING Routine 04/05/2020 21:4 5 EDT documented in this encounter Results * COVID-19 TEST [facility] PCR (04/05/2020 21:45 EDT) Swab ENTIRE NASOPHARYNX / Unknown 04/05/2020 21:45 EDT 04/06/2020 16:12 EDT us Provider Outr Resulting Lab MICROBIOLOGY - GENER AL ORDERABLES Final Result [facility] [address] [place] [address] * COVID-19 TESTING (04/05/2020 21:45 EDT) COVID-19 rt-PCR Result Negative Negative 04/06/2020 21:56 EDT [facility] Comment: This test has not been FDA cleared or approved. This test has been authorized by FDA under an EUA for use by authorized laboratories. This test has been authorized only for detection of nucleic acid from 2019-nCoV, not for any other viruses or pathogens. This test is only authorized for the duration of the declaration that circumstances exist justifying the authorization of emergency use of in vitro diagnostic tests for detection and/or diagnosis of 2019-nCoV under section 564(b)(1) of Act, 21 U.S.C ?? 360bbb-3(b) (1), unless the authorization is terminated or revoked sooner. Negative results do not preclude 2019-nCoV infection and should not be used as the sole basis for treatment or other patient management decisions. Negative results must be combined with clinical observations, patient history, and epidemiological information. Performed on the [employer] Fusion instrument Performing Lab [place] [facility] 04/06/2020 21:56 EDT [facility] Swab 04/05/2020 21:4 5 EDT 04/06/2020 16:12 EDT us Provider Outr Resulting Lab MICROBIOLOGY - GENER AL ORDERABLES Final Result [facility] [address] [place] [address] documented in this encounter Visit Diagnoses Not on filedocumented in this encounter Care Teams Executive Coach Relationship Specialty Start Date End Date Unknown, Provider, PCP - General 02/14/13 documented as of this encounter
--- OUTSIDE RECORDS SUMMARY | 2024-07-31 18:46 | XMS_ITS | Encounter Summary ---
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 not been taking his home antihypertensives, as he had run out of his prescription and had not filled it. Pt stated he would get it filled upon returning home, as he now realized that the medications must be needed. Pt had always thought his blood pressure had been high due to pain. Explained to patient, the blood pressure did not come down appreciably until he had received the Hydralazine (too soon for the PO meds to have taken a good effect). Pt also medicated with Phenergan for c/o nausea. Pt had previously vomited reddish/coffee ground emesis (prior to this shift), and Dr. Bourgeois was notified of this. Esomeprazole was then ordered by . Oriented pt to use of call mendez, for which pt stated understanding. Also advised pt to not get out of bed without calling for assistance, due to all medications he had received which could cause lightheadedness/unsteadiness. Pt also stated understanding of this. * Miscellaneous - Provider, Scanning - 08/22/2013 9:56 PM EST * Miscellaneous - Provider, Scanning - 08/22/2013 9:52 PM EST * Miscellaneous - Provider, Scanning - 08/22/2013 2:08 PM EST documented in this encounter Plan of Treatment Upcoming Encounters Date Type Department Care Team (Latest Contact Info) Description 08/05/2024 11:30 AM EST Office Visit Hematology/Oncolog y at [address] [phone] Deyvi Ibrahim MD [facility] [place] [address] Isabel Berry APRN [facility] [place] [address] 08/05/2024 12:00 PM EST Infusion Hematology Oncology at [address] [phone] 08/27/2024 10:00 AM EST Hospital Encounter [place] [phone] Gulshan Elder MD [facility] [place] [address] 08/27/2024 10:00 AM EST Anesthesia Event [place] [phone] Swati Gonzalez MD [facility] [place] [address] 08/27/2024 10:00 AM EST - 08/27/2024 11:00 AM EST Surgery [place] [phone] Gulshan Elder MD [facility] [place] [address] EGD, UPPER GI ENDOSCOPY (WRVU 2.09) Pending Results Name Type Priority Associated Diagnoses Date /Time XR ERCP Imaging Routine 08/22/2013 11: 02 AM EST Scheduled Orders Name Type Priority Associated Diagnoses Orde r Schedule XR ERCP Imaging Routine Once PRN (for Radiant use) for 1 Occurrences starting 08/22/2013 until 08/22/2013 Scheduled Procedures Name Priority Associated Diagnoses Date/Ti [...] Procedure Name Priority Date/Time Associated Diagnosis Comments URINE CULTURE Routine 08/23/2013 6:38 AM EST DRUG SCREEN WITH CONFIRMATION, URINE (SEND OUT) Routine 08/23/2013 6:32 AM EST THC (MARIJUANA), URINE, CONFIRMATION Routine 08/23/2013 6:32 AM EST URINALYSIS WITH REFLEX CULTURE Routine 08/23/2013 6:32 AM EST DIFFERENTIAL, AUTOMATED Routine 08/23/2013 5:11 AM EST PROTHROMBIN TIME Routine 08/23/2013 5:11 AM EST CBC (WITH DIFF) Routine 08/23/2013 5:11 AM EST PHOSPHORUS Routine 08/23/2013 5:11 AM EST MAGNESIUM Routine 08/23/2013 5:11 AM EST HEPATIC FUNCTION PANEL Routine 08/23/2013 5:11 AM EST BASIC METABOLIC PANEL Routine 08/23/2013 5:11 AM EST CMP W/FASTING GLUCOSE Routine 08/22/2013 1:35 PM EST DIFFERENTIAL, AUTOMATED Routine 08/22/2013 1:35 PM EST CBC (WITH DIFF) Routine 08/22/2013 1:35 PM EST LIPASE Routine 08/22/2013 1:35 PM EST AMYLASE Routine 08/22/2013 1:35 PM EST ERCP (WRVU 5.85) 08/22/2013 9:35 AM EST Elevated liver function tests ERCP Routine 08/22/2013 9:27 AM EST documented in this encounter Results * Urine culture Clean Catch Urine (08/23/2013 6:38 AM EST) Urine Culture ? Patient Name: JEFF ARREGUIN ?Ordered By: LISA BOURGEOIS ? MR#: [id number] ?LOC: ??1EST ? /Sex: ??1965 (48 years), ? Male ? PROCEDURE: Urine Culture ?SOURCE: U CC ? COLLECTED: 08/23/2013 06:38 ? STARTED: 08/23/2013 07:36 ? FINAL REPORT ? Final Report ? Verified:07/2014 08:04 ? No growth (Less than 1,000 cfu/ml). ? ___ ? ___ [facility] Urine specimen obtained by clean catch procedure (specimen) 08/23/2013 6:38 AM EST 08/23/2013 7:35 AM EST Narrative Resulting Agency Comment Spec In Lab Lisa Bourgeois MD MICROBIOLOGY - GENER AL ORDERABLES Performing Organization Address [facility] Co de Phone Number [facility] * THC (Marijuana), Urine Confirmation (08/23/2013 6:32 AM EST) U THC Conf See Note CERNER MILLENNIUM Comment:Please see scanned r eport in Chart Review under the Non-DH Laboratory Heading. Urine specimen (specimen) 08/23/2013 6:32 AM EST 08/25/2013 8:43 AM EST Narrative Resulting Agency Comment Spec In Lab Lisa Bourgeois MD LAB SEND OUT ORDERAB LES Performing Organization Address City/[facility] Co de Phone Number CERNER MILLENNIUM * Drug Screen with Confirmation, Urine (08/23/2013 6:32 AM EST) U JAH w/Conf Test ? Result ?? Flag ??Unit ?? RefValue --------- [facility] Drug Screen, U ??Amphetamines ? Negative ? ng/mL ??Cutoff: 500 ??Barbiturates ? Negative ? ng/mL ??Cutoff: 200 ??Benzodiazepines ?Negative ? ng/mL ??Cutoff: 200 ??Cocaine Metabolite ? Negative ? ng/mL ??Cutoff: 150 ??Methadone ?Negative ? ng/mL ??Cutoff: 300 ??Opiates ?Positive ? ng/mL ??Cutoff: 300 ??Phencyclidine ?Negative ? ng/mL ??Cutoff: 25 ??Propoxyphene ? Negative ? ng/mL ??Cutoff: 300 ??Tetrahydrocanna binols ?Positive ? ng/mL ??Cutoff: 50 ??Ethanol ?Negative ? mg/dL ??Cutoff: 10 Results from this test are presumptive; for positive results refer to the corresponding drug confirmation for the definitive result. This report is intended for use in clinical monitoring and management of patients. It is not intended for use in employment-relate d drug testing. ??Confirmation - Opiates ?? Positive ??Codeine ?Negative ? ng/mL ??<100 ??Hydrocodone ?Negative ? ng/mL ??<100 ??Hydromorphone ?655 ?ng/mL ??<100 ??Morphine ? Negative ? ng/mL ??<100 ??Oxycodone ?Negative ? ng/mL ??<100 ??Oxymorphone ?Negative ? ng/mL ??<100 This report is intended for use in clinical monitoring and management of patients. It is not intended for use in employment-relate d drug testing. Test Performed by: [employer] [place] [address] Cyber Security Analyst: Génesis Dominguez, Ph.D. CERNER MILLENNIUM Urine specimen (specimen) 08/23/2013 6:32 AM EST 08/25/2013 8:43 AM EST Narrative Resulting Agency Comment Spec In Lab Lisa Bourgeois MD URINE ORDERABLES EVELYN GRACIA * (ABNORMAL) Urinalysis with microscopic (08/23/2013 6:32 AM EST) Glucose, Urine Dipstick Negative Negative mg/dL CERNER MILLENNIUM Protein, Urine Dipstick Negative mg/dL CERNER MILLENNIUM Bilirubin, Urine Dipstick Negative Negative mg/dL CERNER MILLENNIUM Comment: Clinical correlation required for positive Urine Bilirubin results as false positive may occur with some drugs and drug related products. If a false positive is suspected a serum total bilirubin should be considered if clinically indicated. Urobilinogen, Urine Dipstick Normal mg/dL CERNER MILLENNIUM pH, Urn (dipstick) 6.5 5.0 - 8.0 CERNER MILLENNIUM Blood, Urine Dipstick Negative mg/dL CERNER MILLENNIUM Ketone, Urine Dipstick Negative mg/dL CERNER MILLENNIUM Nitrite, Urine Dipstick Negative CERNER MILLENNIUM Leukocytes, Urine Dipstick Negative mcL CERNER MILLENNIUM Appearance, Urine Dipstick Clear Clear CERNER MILLENNIUM Specific [place] Urine Automated 1.015 1.002 - 1.030 CERNER MILLENNIUM Color, Urine Dipstick Yellow Yellow CERNER MILLENNIUM RBC, Urine 1 0 - 3 /HPF CERNER MILLENNIUM WBC, Urine 1 0 - 3 /HPF CERNER MILLENNIUM Bacteria, Urine Rare(A) None /HPF CERN ER MILLENNIUM Urine specimen (specimen) 08/23/2013 6:32 AM EST 08/23/2013 6:51 AM EST Narrative Resulting Agency Comment Spec In Lab Lisa Bourgeois MD URINE ORDERABLES CERNER MILLENNIUM * (ABNORMAL) Differential, Automated (08/23/2013 5:11 AM EST) Neutrophil % 72.9(H) 34.0 - 71.0 % CERNER MILLENNIUM Neutrophil Absolute 10.11(H) 1.50 - 6.30 x10(3)/mc L CERNER MILLENNIUM Lymph % 18.4(L) 19.0 - 53.0 % CERNER MILLENNIUM Lymphocytes Abs 2.6 1.0 - 3.6 x10(3)/mc L CERNER MILLENNIUM Monocyte % 7.9 4.0 - 13.0 % CERNER MILLENNIUM Monocyte Abs 1.1(H) 0.2 - 1.0 x10(3)/mc L CERNER MILLENNIUM Eos % 0.4 0.0 - 7.0 % CERNER MILLENNIUM Eosinophils Abs 0.1 0.0 - 0.5 x10(3)/mc L CERNER MILLENNIUM Basophil % 0.1 0.0 - 2.0 % CERNER MILLENNIUM Baso Absolute 0.0 0.0 - 0.2 x10(3)/mc L CERNER MILLENNIUM Immature Gran % 0.30 0.00 - 0.66 % CERNER MILLENNIUM Comment: Immature granulocytes(IG's)percentage and absolute count will include metamyelocytes, myelocytes, and promyelocytes. Blood smears from CBCs yielding IG's will be scanned manually for concordance. If this scan disagrees with the automated IG or if promyelocytes are noted, a manual differential will be performed. Immature Gran Absolute 0.04 0.00 - 0.05 x10(3)/mc L CERNER MILLENNIUM Blood specimen (specimen) 08/23/2013 5:11 AM EST 08/23/2013 5:39 AM EST Lisa Bourgeois MD HEMATOLOGY ORDERABLE S CERNER MILLENNIUM * Basic Metabolic Panel (non-fasting) (08/23/2013 5:11 AM EST) [facility] Glucose 117 60 - 199 mg/dL CERNER MILLENNIUM Comment:Diabetes: >=200 mg/d L plus symptoms Blood Urea Nitrogen 11 10 - 20 mg/dL CERNER MILLENNIUM Creatinine 0.90 0.80 - 1.50 mg/dL CERNER MILLENNIUM Comment: Please note that the pediatric reference intervals supplied above were not validated at [facility]. Results from pediatric patients should be interpreted in conjunction to the patient's age, height and muscle mass. Sodium 140 135 - 145 mmol/L CERNER MILLENNIUM Potassium 3.7 3.5 - 5.0 mmol/L CERNER MILLENNIUM Comment: Please note: ??Patients with WBC >100,000 may have falsely elevated Potassium levels. ??For accurate Potassium quantification in these patients send serum separator tube (gold top) for subsequent determinations. ??Contact the Clinical Chemistry Laboratory if there are any questions. Chloride 104 98 - 107 mmol/L CERNER MILLENNIUM Carbon Dioxide 25 22 - 31 mmol/L CERNER MILLENNIUM Anion Gap 11 5 - 15 mmol/L CERNER MILLENNIUM Calcium 9.1 8.5 - 10.5 mg/dL CERNER MILLENNIUM Est Glomerular Filtration Rate [...] the following links into your internet browser. http://www.nkdep.nih.gov/lab-evaluation.shtml http://www.kidney.org/professionals/ Blood specimen (specimen) 08/23/2013 5:11 AM EST 08/23/2013 5:39 AM EST Narrative Resulting Agency Comment Spec In Lab Lisa Bourgeois MD CHEMISTRY ORDERABLES CERBANNER CELESTINAENNIUM * (ABNORMAL) CBC (with Diff) (08/23/2013 5:11 AM EST) White Blood Cell 13.9(H) 4.0 - 10.0 x10(3)/mc L CERNER MILLENNIUM Red Blood Cell 3.93(L) 4.63 - 6.08 x10(6)/mc L CERNER MILLENNIUM Hemoglobin 13.1(L) 13.7 - 17.5 gm/dL CERNER MILLENNIUM Hematocrit 38.4(L) 40.0 - 51.0 % CERNER MILLENNIUM Mean Cell Volume 97.7(H) 79.0 - 92.0 fL CERNER MILLENNIUM Mean Cell Hemoglobin 33.3(H) 25.6 - 32.2 pg CERNER MILLENNIUM Mean Cell Hemoglobin Concentration 34.1 32.0 - 36.5 gm/dL CERNER MILLENNIUM Platelet 253 145 - 370 x10(3)/mc L CERNER MILLENNIUM RDW Standard Deviation 45.1 35.0 - 46.0 fL CERNER MILLENNIUM RDW coefficient of variation 12.7 10.9 - 14.4 % CERNER MILLENNIUM Mean Platelet Volume 9.8 9.0 - 12.0 fL CERNER MILLENNIUM Blood specimen (specimen) 08/23/2013 5:11 AM EST 08/23/2013 5:39 AM EST Narrative Resulting Agency Comment Spec In Lab Lisa Bourgeois MD HEMATOLOGY ORDERABLE S Performing Organization Address [facility] de Phone Number [facility] * (ABNORMAL) Hepatic Function Panel (08/23/2013 5:11 AM EST) Protein, Total 5.7(L) 6.4 - 8.3 gm/dL CERNER MILLENNIUM Albumin 3.9 3.2 - 5.2 gm/dL CERNER MILLENNIUM Aspartate Aminotransferase 26 0 - 39 unit/L CERNER MILLENNIUM Alanine Aminotransferase 38 0 - 55 unit/L CERNER MILLENNIUM Alkaline Phosphatase 77 40 - 120 unit/L CERNER MILLENNIUM Bilirubin, Total 1.4(H) 0.2 - 1.3 mg/dL CERNER MILLENNIUM Comment:result rechecked-[facility] Bilirubin, Direct 0.3 0.0 - 0.3 mg/dL CERNER MILLENNIUM Blood specimen (specimen) 08/23/2013 5:11 AM EST 08/23/2013 5:39 AM EST Narrative Resulting Agency Comment Spec In Lab Lisa Bourgeois MD CHEMISTRY ORDERABLES Performing Organization Address [facility] Phone Number [facility] * Prothrombin Time (08/23/2013 5:11 AM EST) Prothrombin Time 14.7 12.0 - 15.0 sec CERNER MILLENNIUM Comment: [facility] Transfusion Committee Guidelines: INR less than 2.0, PTT less than OR equal to 43.5 seconds, or Fibrinogen greater than or equal to 100 mg/dl indicate adequate procoagulant activity for hemostasis in patients without underlying bleeding disorders. International Normalization Ratio 1.1 0.9 - 1.1 CERNER MILLENNIUM Blood specimen (specimen) 08/23/2013 5:11 AM EST 08/23/2013 5:39 AM EST Narrative Resulting Agency Comment Spec In Lab Lisa Bourgeois MD HEMATOLOGY ORDERABLE S EVELYN GONZÁLESIUM * (ABNORMAL) Magnesium (08/23/2013 5:11 AM EST) Pathologist [facility] Magnesium 0.65(L) 0.69 - 1.07 mmol/L CERNER MILLENNIUM Blood specimen (specimen) 08/23/2013 5:11 AM EST 08/23/2013 5:39 AM EST Narrative Resulting Agency Comment Spec In Lab Lisa Bourgeois MD CHEMISTRY ORDERABLES Performing Organization Address [facility] de Phone Number EVELYN GONZÁLESIUM * Phosphorus (08/23/2013 5:11 AM EST) Pathologist [facility] Phosphorus 3.3 2.5 - 4.5 mg/dL CERNER CELESTINAENNIUM Blood specimen (specimen) 08/23/2013 5:11 AM EST 08/23/2013 5:39 AM EST Narrative Resulting Agency Comment Spec In Lab Lisa Bourgeois MD CHEMISTRY ORDERABLES Performing Organization Address [facility] Co de Phone Number EVELYN OSCARENNIUM * (ABNORMAL) Differential, Automated (08/22/2013 1:35 PM EST) Pathologist [facility] Neutrophil % 82.2(H) 34.0 - 71.0 % CERNER MILLENNIUM Neutrophil Absolute 12.74(H) 1.50 - 6.30 x10(3)/mc L CERNER MILLENNIUM Lymph % 10.2(L) 19.0 - 53.0 % CERNER MILLENNIUM Lymphocytes Abs 1.6 1.0 - 3.6 x10(3)/mc L CERNER MILLENNIUM Monocyte % 6.3 4.0 - 13.0 % CERNER MILLENNIUM Monocyte Abs 1.0 0.2 - 1.0 x10(3)/mc L CERNER MILLENNIUM Eos % 1.0 0.0 - 7.0 % CERNER MILLENNIUM Eosinophils Abs 0.2 0.0 - 0.5 x10(3)/mc L CERNER MILLENNIUM Basophil % 0.1 0.0 - 2.0 % CERNER MILLENNIUM Baso [...] differential will be performed. Immature Gran Absolute 0.03 0.00 - 0.05 x10(3)/mc L CERNER MILLENNIUM Blood specimen (specimen) 08/22/2013 1:35 PM EST 08/22/2013 1:58 PM EST Duane Garcia MD HEMATOLOGY ORDERABL ES Performing Organization Address City/[facility]/ZIP Co de Phone Number EVELYN GONZÁLESIUM * Lipase (08/22/2013 1:35 PM EST) Lipase 53 0 - 60 unit/L CERDAYLIN MILLENNIUM Blood specimen (specimen) 08/22/2013 1:35 PM EST 08/22/2013 1:58 PM EST Narrative Resulting Agency Comment Spec In Lab Duane Garcia MD CHEMISTRY ORDERABLE S Performing Organization Address [facility]/ZIP Co de Phone Number [facility] * Amylase (08/22/2013 1:35 PM EST) Amylase 41 28 - 100 unit/L CERBANNER CELESTINAENNIUM Blood specimen (specimen) 08/22/2013 1:35 PM EST 08/22/2013 1:58 PM EST Narrative Resulting Agency Comment Spec In Lab Duane Garcia MD CHEMISTRY ORDERABLE S PBBANNER NIVIAIUM * (ABNORMAL) CMP w/fasting Glucose (08/22/2013 1:35 PM EST) Glucose Fasting 129(H) 65 - 99 mg/dL CERNER MILLENNIUM Comment: [...] of Diabetes Mellitus, Position Statement from the [place] [employer]. ??Diabetes Care, Volume 33, Supplement 1, Aug 2009 Blood Urea Nitrogen 9(L) 10 - 20 mg/dL CERNER MILLENNIUM Creatinine 0.85 0.80 - 1.50 mg/dL CERNER MILLENNIUM Comment: Please note that the pediatric reference intervals supplied above were not validated at [facility]. Results from pediatric patients should be interpreted in conjunction to the patient's age, height and muscle mass. Sodium 141 135 - 145 mmol/L CERNER MILLENNIUM Potassium 4.6 3.5 - 5.0 mmol/L CERNER MILLENNIUM Comment: Please note: ??Patients with WBC >100,000 may have falsely elevated Potassium levels. ??For accurate Potassium quantification in these patients send serum separator tube (gold top) for subsequent determinations. ??Contact the Clinical Chemistry Laboratory if there are any questions. Chloride 104 98 - 107 mmol/L CERNER MILLENNIUM Carbon Dioxide 24 22 - 31 mmol/L CERNER MILLENNIUM Anion Gap 13 5 - 15 mmol/L CERNER MILLENNIUM Calcium 9.5 8.5 - 10.5 mg/dL CERNER MILLENNIUM Protein, Total 6.7 6.4 - 8.3 gm/dL CERNER MILLENNIUM Albumin 4.3 3.2 - 5.2 gm/dL CERNER MILLENNIUM Aspartate Aminotransferase 60(H) 0 - 39 unit/L CERNER MILLENNIUM Alanine Aminotransferase 52 0 - 55 unit/L CERNER MILLENNIUM Alkaline Phosphatase 89 40 - 120 unit/L CERNER MILLENNIUM Bilirubin, Total 0.7 0.2 - 1.3 mg/dL CERNER MILLENNIUM Bilirubin, Direct 0.2 0.0 - 0.3 mg/dL CERNER MILLENNIUM Est [...] the following links into your internet browser. http://www.nkdep.nih.gov/lab-evaluation.shtml http://www.kidney.org/professionals/ Blood specimen (specimen) 08/22/2013 1:35 PM EST 08/22/2013 1:58 PM EST Narrative Resulting Agency Comment Spec In Lab Duane Garcia MD CHEMISTRY ORDERABLE S CERNER CELESTINAENNIUM * (ABNORMAL) CBC (with Diff) (08/22/2013 1:35 PM EST) White Blood Cell 15.5(H) 4.0 - 10.0 x10(3)/mc L CERNER MILLENNIUM Red Blood Cell 4.37(L) 4.63 - 6.08 x10(6)/mc L CERNER MILLENNIUM Hemoglobin 14.9 13.7 - 17.5 gm/dL CERNER MILLENNIUM Hematocrit 43.2 40.0 - 51.0 % CERNER MILLENNIUM Mean Cell Volume 98.9(H) 79.0 - 92.0 fL CERNER MILLENNIUM Mean Cell Hemoglobin 34.1(H) 25.6 - 32.2 pg CERNER MILLENNIUM Mean Cell Hemoglobin Concentration 34.5 32.0 - 36.5 gm/dL CERNER MILLENNIUM Platelet 234 145 - 370 x10(3)/mc L CERNER MILLENNIUM RDW Standard Deviation 46.8(H) 35.0 - 46.0 fL CERNER MILLENNIUM RDW coefficient of variation 12.9 10.9 - 14.4 % CERNER MILLENNIUM Mean Platelet Volume 9.8 9.0 - 12.0 fL EVELYN GRACIA Blood specimen (specimen) 08/22/2013 1:35 PM EST 08/22/2013 1:58 PM EST Narrative Resulting Agency Comment Spec In Lab Duane Garcia MD HEMATOLOGY ORDERABL ES EVELYN GRACIA * ERCP (08/22/2013 9:27 AM EST) ERCP [facility] Endoscopy Patient Name: Jeff Kallie ? Procedure Date: 08/22/2013 9:27 AM ? Date of : 1965 ? Age: 48 ? Order #: [id number] ? Procedure: ? ERCP Indications: ? Evaluation and possible treatment of ? bile duct stone(s) Providers: ? Duane Garcia MD, Dk Jolly ? TODD Baker, Mary Cano, Cheese Blender Referring MD: ?Yoni Ramírez MD Medicines: ? General Anesthesia Complications: ? No immediate complications. Procedure: ? Pre-Anesthesia Assessment: ? - Prior to the procedure, a History ? and Physical was performed, and ? patient medications and allergies ? were reviewed. The patient is ? competent. The risks and benefits of ? the procedure and the sedation ? options and risks were discussed with ? the patient. All questions were ? answered and informed consent was ? obtained. Patient identification and ? proposed procedure were verified by ? the physician in the pre-procedure ? area. Mental Status Examination: ? alert and oriented. Airway ? Examination: normal oropharyngeal ? airway and neck mobility. Respiratory ? Examination: clear to auscultation. ? CV Examination: normal. Prophylactic ? Antibiotics: The patient does not ? require prophylactic antibiotics. ? Prior Anticoagulants: The patient has ? taken no previous anticoagulant or ? antiplatelet agents. ASA Grade ? Assessment: II - A patient with mild ? systemic disease. After reviewing the ? risks and benefits, the patient was ? deemed in satisfactory condition to ? undergo the procedure. The anesthesia ? plan was to use general anesthesia. ? Immediately prior to administration ? of medications, the patient was ? re-assessed for adequacy to receive ? sedatives. The heart rate, ? respiratory rate, oxygen saturations, ? blood pressure, adequacy of pulmonary ? ventilation, and response to care ? were monitored throughout the ? procedure. The physical status of the ? patient was re-assessed after the ? procedure. ? The procedure, indications, benefits, ? risks and alternatives were explained ? to the patient. Specifically ? discussed were potential ? complications including, but not ? limited to, bleeding, perforation, ? infection, pancreatitis, missing a ? cancer, and adverse medication ? reactions. The [place] 2011 was ? introduced through the mouth, and ? advanced to the duodenum where it was ? used to inject contrast into and used ? to inject contrast into the bile ? duct. The ERCP was accomplished ? without difficulty. The patient ? tolerated the procedure well. ? Findings: ? The ceramic products sales engineer film was normal with the exception of the ? previously CCY clips. The esophagus was successfully ? intubated under direct vision. The scope was advanced ? to a normal major papilla in the descending duodenum ? without detailed examination of the pharynx, larynx ? and associated structures, and upper GI tract. The ? upper GI tract was grossly normal. Initially, the ? ventral PD was cannulated with the 0.035 ACRBOAT wire ? but no contast was injected. Using a second 0.035 ? inch ACROBAT wire and using the double wire ? technique, the bile duct was then easily deeply ? cannulated. Contrast was injected. Cholangiogram ? revealed a normal appearing CBD which was only ? dilated to 5 mm. The cystic duct remanet was normal. ? There was no evidence of stone or stricture. A 15 mm ? biliary sphincterotomy was made with a short-tip ? traction sphincterotome using ERBE electrocautery. ? Minor bleeding from the sphincterotomy was ? successfully treated with 7ccs of 1:10,000 ? epinephrine. The duct was then swept with an 8.5 mm ? and 11.5 mm balloon and no filling defect were ? produced. Occlusion cholangiogram revealed no focal ? filling defects. ? Impression: ?No evidence of choledocholithiasis - ? s/p sphincterotomy with minor ? bleeding treated with epinephrine Recommendation: ?- Follow expectantly - hopefully the ? patient's pain symptoms will resolve ? following this intervention ? Duane Garcia MD 08/22/2013 10:39 AM This report has been signed electronically. Number of Addenda: 0 Note Initiated On: 08/22/2013 9:27 AM PROVATION 08/22/2013 9:27 AM EST Yoni Ramírez MD GENERAL SURGICAL ORD ERABLES PROVATION documented in this encounter Visit Diagnoses Diagnosis Elevated liver function tests Other abnormal blood chemistry Abnormal CT of the abdomen Nonspecific (abnormal) [...] MAR Action Action Date Dose Rate Site clonAZEpam (KLONOPIN) tablet 1 mg 1 mg, Oral, NIGHTLY, First dose on Sun08/22/13 at 2100, Until Discontinued, Routine Given 08/22/2013 8:51 PM EST 1 mg [id number] indomethacin/placebo suppository 100 mg 100 mg, Rectal, ONCE, 1 dose, On Sun08/22/13 at 1015, Endoscopy (Intra-Procedure), Routine Given 08/22/2013 9:55 AM EST 100 mg esomeprazole (NEXIUM) injection 40 mg 40 mg, Intravenous, DAILY, First dose on Sun08/22/13 at 2030, Until Discontinued Given 08/23/2013 8:03 AM EST 40 mg Given 08/22/2013 9:44 PM EST 40 mg fentaNYL 50mcg/mL injection 25-50 mcg, Intravenous, EVERY 5 MIN PRN, Starting on Sun08/22/13 at 1145, Until Sun08/22/13 at 1801, Pain, for breakthrough pain, Hold for respiratory rate less than 10 per minute. Maximum dose: 250 mcg over one hour., PACU Recovery, Routine Given 08/22/2013 5:10 PM EST 50 mcg Given 08/22/2013 3:10 PM EST 50 mcg Given 08/22/2013 11:45 AM EST 50 mcg hydrALAZINE (APRESOLINE) injection 10 mg 10 mg, Intravenous, EVERY 6 HOURS PRN, Starting on Sun08/22/13 at 1558, Until Sun08/23/13 at 1645, High Blood Pressure, ban SBP >180, Routine Given 08/22/2013 9:12 PM EST 10 mg hydrochlorothiazide (HYDRODIURIL) tablet 12.5 mg 12.5 mg, Oral, DAILY, First dose on Sun08/22/13 at 2000, Until Discontinued, Routine Given 08/23/2013 8:03 AM EST 12.5 mg Given 08/22/2013 8:50 PM EST 12.5 mg HYDROmorphone (DILAUDID) injection 0.2-0.4 mg 0.2-0.4 mg, Intravenous, EVERY 4 HOURS PRN, Starting on Sun08/22/13 at 2012, Until 08/23/13 at 1645, Pain, Routine Given 08/23/2013 12:24 PM EST 0.2 mg Given 08/22/2013 8:56 PM EST 0.4 mg HYDROmorphone (DILAUDID) tablet 2 mg 2 mg, Oral, DAILY, First dose on 08/23/13 at 0900, Until Discontinued, Routine Given 08/23/2013 8:03 AM EST 2 mg lactated ringers infusion 1,000 mL 1,000 mL, at 100 mL/hr, Intravenous, CONTINUOUS, Starting on Sun08/22/13 at 1900, Until 08/23/13 at 1645, Day of Surgery (Day of Procedure) New Bag 08/22/2013 8:52 PM EST 1,000 mLs 100 mL/hr lactated ringers infusion 100 mL/hr, Intravenous, CONTINUOUS, Starting on Sun08/22/13 at 0930, Until 08/23/13 at 1645 New Bag 08/23/2013 8:05 AM EST 100 mL/hr 100 mL/hr New Bag 08/22/2013 3:10 PM EST 100 mL/hr 100 mL/hr New Bag 08/22/2013 12:40 PM EST 100 mL/hr 100 mL/hr lisinopril (PRINIVIL;ZESTRIL) tablet 10 mg 10 mg, Oral, DAILY, First dose on Sun08/22/13 at 2000, Until Discontinued, Routine Given 08/23/2013 8:03 AM EST 10 mg Given 08/22/2013 8:51 PM EST 10 mg LORazepam (ATIVAN) injection 1 mg 1 mg, Intravenous, EVERY 4 HOURS PRN, Starting on Sun08/22/13 at 1557, Until 08/23/13 at 1645, Nausea, Vomiting, Routine Given 08/22/2013 5:10 PM EST 1 mg Given 08/22/2013 3:10 PM EST 1 mg LORazepam (ATIVAN) injection 1 mg 1 mg, Intravenous, ONCE, 1 dose, On Sun08/22/13 at 1845, Routine Given 08/22/2013 6:45 PM EST 1 mg promethazine (PHENERGAN) injection 6.25 mg 6.25 mg, Intravenous, EVERY 6 HOURS PRN, Nausea, Starting on Sun08/22/13 at 1546, Until 08/23/13 at 1645, Avoid extravasation Given 08/22/2013 9:47 PM EST 6.25 mg sodium chloride 0.9 % flush 5 mL 5 mL, Intravenous, EVERY 12 HOURS, First dose on Sun08/22/13 at 1900, Until Discontinued, Day of Surgery (Day of Procedure), Routine Given 08/23/2013 7:54 AM EST 5 mLs Given 08/22/2013 8:48 PM EST 5 mLs sodium chloride 0.9 % flush 5 mL 5 mL, Intravenous, EVERY 12 HOURS, First dose on Sun08/22/13 at 1900, Until Discontinued, Routine Given 08/23/2013 7:54 AM EST 5 mLs Given 08/22/2013 8:47 PM EST 5 mLs documented in this encounter Active and Recently Administered Medications Times are shown in EST. Scheduled Medication Order 08/21/2013 08/22/2013 08/23/2013 clonAZEpam (KLONOPIN) tablet 1 mg (CANCELED) 1 mg, Oral, NIGHTLY, First dose on Sun08/22/13 at 2100, Until Discontinued, Routine 2050 (Given - Provider: Vania Borja RN) [id number] indomethacin/placebo suppository 100 mg (COMPLETED) 100 mg, Rectal, ONCE, 1 dose, On Sun08/22/13 at 1015, Endoscopy (Intra-Procedure), Routine 0955 (Given - Provider: Dk Baker RN) esomeprazole (NEXIUM) injection 40 mg (CANCELED) 40 mg, Intravenous, DAILY, First dose on Sun08/22/13 at 2030, Until Discontinued 2143 (Given - Provider: Vania Borja RN - Comment: Med just arrived from pharmacy) 08 (Given - Provider: Katrin Vo RN) hydrochlorothiazide (HYDRODIURIL) tablet 12.5 mg (CANCELED) 12.5 mg, Oral, DAILY, First dose on Sun08/22/13 at 2000, Until Discontinued, Routine 2049 (Given - Provider: Vania Borja RN) 08 (Given - Provider: Katrin Vo RN) HYDROmorphone (DILAUDID) tablet 2 mg 2 mg, Oral, DAILY, First dose on Sun08/23/13 at 0900, Until Discontinued, Routine 08 (Given - Provid er: Katrin Vo RN) lisinopril (PRINIVIL;ZESTRIL) tablet 10 mg (CANCELED) 10 mg, Oral, DAILY, First dose on Sun08/22/13 at 2000, Until Discontinued, Routine 2050 (Given - Provider: Vania Borja RN) 0803 (Given - Provider: Katrin Vo RN) LORazepam (ATIVAN) injection 1 mg (COMPLETED) 1 mg, Intravenous, ONCE, 1 dose, On Sun08/22/13 at 1845, Routine 1844 (Given - Provider: Mili Naylor RN) sodium chloride 0.9 % flush 5 mL (CANCELED) 5 mL, Intravenous, EVERY 12 HOURS, First dose on Sun08/22/13 at 1900, Until Discontinued, Day of Surgery (Day of Procedure), Routine 2047 (Given - Provider: Vania Borja RN) 0754 (Given - Provider: Katrin Vo RN - Comment: IVF infusing) sodium chloride 0.9 % flush 5 mL (CANCELED) 5 mL, Intravenous, EVERY 12 HOURS, First dose on Sun08/22/13 at 1900, Until Discontinued, Routine 2046 (Given - Provider: Vania Borja RN - Comment: pt taking a long shower) 0754 (Given - Provider: Katrin Vo RN - Comment: IVF infusing) Continuous Medication Order 08/21/2013 08/22/2013 08/23/2013 lactated ringers infusion 1,000 mL (CANCELED) 1,000 mL, at 100 mL/hr, Intravenous, CONTINUOUS, Starting on Sun08/22/13 at 1900, Until 08/23/13 at 1645, Day of Surgery (Day of Procedure) 2051 (New Bag - Provider: Vania Borja RN) lactated ringers infusion (CANCELED) 100 mL/hr, Intravenous, CONTINUOUS, Starting on Sun08/22/13 at 0930, Until 08/23/13 at 1645 1130 (New Bag - Provider: Zach Kim RN)1240 (New Bag - Provider: Zach Kim RN)1510 (New Bag - Provider: Zach iKm RN) 0805 (New Bag - Provider: Katrin Vo RN)1402 (Paused - Provider: Joe Bosch, RN) PRN Medication Order 08/21/2013 08/22/2013 08/23/2013 fentaNYL 50mcg/mL injection (CANCELED) 25-50 mcg, Intravenous, EVERY 5 MIN PRN, Starting on Sun08/22/13 at 1145, Until Sun08/22/13 at 1801, Pain, for breakthrough pain, Hold for respiratory rate less than 10 per minute. Maximum dose: 250 mcg over one hour., PACU Recovery, Routine 1100 (Given - Provider: Zach Kim RN)1115 (Given - Provider: Zach Kim RN)1125 (Given - Provider: Zach Kim RN)1135 (Given - Provider: Zach Kim RN)1145 (Given - Provider: Zach Kim RN)1510 (Given - Provider: Zach Kim RN)1710 (Given - Provider: Zach Kim RN) hydrALAZINE (APRESOLINE) injection 10 mg (CANCELED) 10 mg, Intravenous, EVERY 6 HOURS PRN, Starting on Sun08/22/13 at 1558, Until 08/23/13 at 1645, High Blood Pressure, ban SBP >180, Routine 2111 (Given - Provider: Vania Borja, TODD) HYDROmorphone (DILAUDID) injection 0.2-0.4 mg (CANCELED) 0.2-0.4 mg, Intravenous, EVERY 4 HOURS PRN, Starting on Sun08/22/13 at 2012, Until 08/23/13 at 1645, Pain, Routine 2055 (Given - Provider: Vania Borja, TODD) 1224 (Given - Provider: Joe Bosch, TODD) LORazepam (ATIVAN) injection 1 mg 1 mg, Intravenous, EVERY 4 HOURS PRN, Starting on Sun08/22/13 at 1557, Until 08/23/13 at 1645, Nausea, Vomiting, Routine 1510 (Given - Provider: Zach Kim, TODD)1710 (Given - Provider: Zach Kim, TODD) promethazine (PHENERGAN) injection 6.25 mg (CANCELED) 6.25 mg, Intravenous, EVERY 6 HOURS PRN, Nausea, Starting on 08/22/13 at 1546, Until 08/23/13 at 1645, Avoid extravasation 2147 (Given - Provider: Vania Borja RN) documented in this encounter Care Teams Renal Dialysis Rn Relationship Specialty Start Date End Date Yoni Ramírez MD [address] [place] [id number] PCP - General 07/05/10 documented as of this encounter
--- OUTSIDE RECORDS SUMMARY | 2024-07-31 18:46 | XMS_ITS | Referral Summary ---
Author Organization [facility] Address [address] [place] [address] Care Team Providers Care Bar Captain Name Role Phone Unknown, Provider Primary Care Provider Unava ilable Social History Tobacco Use Types Packs/Day Years Used Date Smoking Tobacco: Never Assessed Sex and Gender Information Value Date Recorded Sex Assigned at Not on file Legal Sex Male 18:17 EST Gender Identity Not on file Sexual Orientation Not on file Plan of Treatment Not on file Insurance [facility] [place] [id number] , [place] [id number] , [place] [address] Care Teams Bar Captain Relationship Specialty Start Date End Date Unknown, Provider, PCP - General 02/14/13
--- OUTSIDE RECORDS SUMMARY | 2024-07-31 18:46 | XMS_ITS | Encounter Summary ---
Author Organization [facility] Address [address] [place] [address] Care Team Providers Care Sterile Instrument Technician Name Role Phone Unknown, Provider Primary Care Provider Unava ilable Encounter Details Date Type Department Care Team (Late st Contact Info) Description 02/14/2013 Results Only [facility] [phone] Lucía Encinas MD [address] [place] [address] Social History Tobacco Use Types Packs/Day Years [...] Procedure Name Priority Date/Time Associated Diagnosis Comments SURGICAL PATHOLOGY Routine 02/14/2013 8:55 EDT documented in this encounter Results * SURGICAL PATHOLOGY (02/14/2013 8:55 EDT) Pathology Report: SURGICAL PATHOLOGY REPORT Reports generated via electronic interface contain original data; however they are lacking the format of the original report. Caution should be taken when reading/interpreti ng unformatted reports. Name: ? JEFF FAIRCHILD ? Accession #: ? [id number] ? : ? 1965 (Age: 47) ??M ? Collect Date: ? 02/14/2013 ? Location: ? [facility] ? Receive Date: ? 02/15/2013 ? Provider: LUCÍA EDWARDS MD Copy to: MANAV SIMON MD ? Final Pathologic Diagnosis: A. STOMACH, BIOPSY: - ??No specific pathologic features.. B. ESOPHAGUS, BIOPSY: - ??Active erosive esophagitis. ??See comment. Comment: PAS stain performed on the esophageal biopsy (specimen B) is negative for fungal organisms. Document reviewed and electronically signed by: SHIRLEY SCHNEIDER MD Report ??Date: 02/18/2013 16:45 By the signature above, the attending physician certifies that he/she has personally conducted a gross and/or microscopic examination of the described specimens and rendered or confirmed the above diagnosis. Specimen(s) Received: A. ??Bxs random gastric B. ??Esophageal bxs Clinical History: Not listed Gross Description: A. ? Received in formalin labelled with proper patient identification (initials Q, G) stomach biopsy are two pink-santiago tissues (0.3 x 0.2 x 0.1 cm and 0.2 x 0.1 x 0.1 cm) . Entirely submitted in cassette A1. B. ? Received in formalin labelled with proper patient identification (initials Q, G) esophageal biopsy are two light santiago tissues (0.3 x 0.2 x 0.2 cm and 0.2 x 0.2 x 0.1 cm) . Entirely submitted in cassette B1. Dr. Coulter 02/15/2013 12:33 PM End of Report [facility] 02/14/2013 8:55 EDT 02/15/2013 8:55 EDT Lucía Encinas MD PATHOLOGY ORDERABLES Final Result [facility] [address] [place] [address] documented in this encounter Visit Diagnoses Not on filedocumented in this encounter Care Teams Sterile Instrument Technician Relationship Specialty Start Date End Date Unknown, Provider, PCP - General 02/14/13 documented as of this encounter
--- OUTSIDE RECORDS SUMMARY | 2024-07-31 18:46 | XMS_ITS | Encounter Summary ---
Author Organization [facility] Address [address] [place] [address] Care Team Providers Care Force Variation Equipment Tender Name Role Phone Unknown, Provider Primary Care Provider Unava ilable Encounter Details Date Type Department Care Team (Late st Contact Info) Description 01/01/2020 Lab Requisition [facility] Pathology & Laboratory Medicine - [facility] [address] [place], [place] [id number] Outr Resulting Lab, Provider Social History Tobacco [...] Procedure Name Priority Date/Time Associated Diagnosis Comments DO NOT ORDER STANDALONE - BROAD COVID TEST Today 01/01/2020 20:14 EDT COVID-19 TESTING Routine 01/01/2020 20:1 4 EDT documented in this encounter Results * DO NOT ORDER STANDALONE - BROAD COVID TEST (01/01/2020 20:14 EDT) COVID-19 rt-PCR Result NEGATIVE Negative 01/03/2020 12:30 EDT [facility] Comment: 2019-novel Coronavirus (2019-nCoV) not detected by the qRT-PCR assay. Consider testing for other respiratory viruses or re-collecting for 2019-nCoV testing. Note: Optimum timing for peak viral levels during infections caused by 2019-nCoV have not been determined. Collection of multiple specimens from the same patient may be necessary to detect the virus. Limitations Positive results are indicative of active infection with SARS-CoV-2 but do not rule out bacterial infection or co-infection with other viruses. The agent detected may not be the definite cause of disease. In addition, detection of viral RNA may not indicate the presence of infectious virus or that SARS-CoV-2 is the causative agent for clinical symptoms. Negative results do not preclude SARS-CoV-2 infection and should not be used as the sole basis for patient management decisions. Negative results must be combined with clinical observations, patient history, and epidemiological information. False negative results may also occur if amplification inhibitors are present in the specimen or if inadequate numbers of organisms are present in the specimen. Optimum specimen types and timing for peak viral levels during infections caused by SARS-CoV-2 have not been fully determined. Collection of multiple specimens (types and time points) from the same patient may be necessary to detect the virus. The test was validated for use with upper respiratory specimens obtained via nasopharyngeal or oropharyngeal swabs in VTM, UTM, M4, M5, M6, saline, and MTM media. The performance of this test has not been established for other specimens. Specimens collected using other FDA recommended Specimen Collection Materials listed in the FDA COVID-19 [employer] communication (November 06, 2019) are processed with the caveat that they were not all validated for use with this test and the result must be interpreted in this context. Furthermore, a false negative results may occur if a specimen is improperly collected, transported or handled. If the virus mutates in the RT-PCR target region, SARS-CoV-2 may not be detected or may be detected less predictably. Inhibitors or other types of interference may produce a false negative result. An interference study evaluating the effect of common cold medications was not performed. This test is not FDA-cleared but its performance characteristics were established by our CLIA-certified, CAP-accredited, high complexity laboratory in accordance with CLIA regulations, [employer] [place] [employer] (CAP) guidelines (Oct 30, 2019), and FDA guidance (Oct 11, 2019). This test is only for use under the Food and Drug Administration's Emergency Use Authorization. Swab ENTIRE NASOPHARYNX / Unknown 01/01/2020 20:14 EDT 01/02/2020 21:34 EDT us Provider Outr Resulting Lab MICROBIOLOGY - GENER AL ORDERABLES Final Result [facility] [place], [place] * COVID-19 TESTING (01/01/2020 20:14 EDT) COVID-19 rt-PCR Result NEGATIVE Negative 01/03/2020 14:43 EDT [facility] Comment: 2019-novel Coronavirus (2019-nCoV) not detected by the qRT-PCR assay. Consider testing for other respiratory viruses or re-collecting for 2019-nCoV testing. Note: Optimum timing for peak viral levels during infections caused by 2019-nCoV have not been determined. Collection of multiple specimens from the same patient may be necessary to detect the virus. Limitations Positive results are indicative of active infection with SARS-CoV-2 but do not rule out bacterial infection or co-infection with other viruses. The agent detected may not be the definite cause of disease. In addition, detection of viral RNA may not indicate the presence of infectious virus or that SARS-CoV-2 is the causative agent for clinical symptoms. Negative results do not preclude SARS-CoV-2 infection and should not be used as the sole basis for patient management decisions. Negative results must be combined with clinical observations, patient history, and epidemiological information. False negative results may also occur if amplification inhibitors are present in the specimen or if inadequate numbers of organisms are present in the specimen. Optimum specimen types and timing for peak viral levels during infections caused by SARS-CoV-2 have not been fully determined. Collection of multiple specimens (types and time points) from the same patient may be necessary to detect the virus. The test was validated for use with upper respiratory specimens obtained via nasopharyngeal or oropharyngeal swabs in VTM, UTM, M4, M5, M6, saline, and MTM media. The performance of this test has not been established for other specimens. Specimens collected using other FDA recommended Specimen Collection Materials listed in the FDA COVID-19 [employer] communication (November 06, 2019) are processed with the caveat that they were not all validated for use with this test and the result must be interpreted in this context. Furthermore, a false negative results may occur if a specimen is improperly collected, transported or handled. If the virus mutates in the RT-PCR target region, SARS-CoV-2 may not be detected or may be detected less predictably. Inhibitors or other types of interference may produce a false negative result. An interference study evaluating the effect of common cold medications was not performed. This test is not FDA-cleared but its performance characteristics were established by our CLIA-certified, CAP-accredited, high complexity laboratory in accordance with CLIA regulations, [employer] [place] [employer] (CAP) guidelines (Oct 30, 2019), and FDA guidance (Oct 11, 2019). This test is only for use under the Food and Drug Administration's Emergency Use Authorization. Performing Lab [facility] 01/03/2020 14:43 EDT [facility] Swab ENTIRE NASOPHARYNX / Unknown 01/01/2020 20:14 EDT 01/02/2020 21:34 EDT us Provider Outr Resulting Lab MICROBIOLOGY - GENER AL ORDERABLES Final Result [facility] [address] [place] [address] [facility] [place], [place] documented in this encounter Visit Diagnoses Not on filedocumented in this encounter Care Teams Force Variation Equipment Tender Relationship Specialty Start Date End Date Unknown, Provider, PCP - General 02/14/13 documented as of this encounter
--- OUTSIDE RECORDS SUMMARY | 2024-07-31 18:46 | XMS_ITS | Encounter Summary ---
Author Organization [facility] Address [address] [place] [address] Care Team Providers Care Professor Of Nursing Name Role Phone Unknown, Provider Primary Care Provider Unava ilable Encounter Details Date Type Department Care Team (Late st Contact Info) Description 03/12/2023 Lab Requisition [facility] Pathology & Laboratory Medicine - [facility] [address] [place], [place] [address] Outr Resulting Lab, Provider Social History Tobacco [...] Procedure Name Priority Date/Time Associated Diagnosis Comments PTH INTACT Routine 03/11/2023 18:41 EDT documented in this encounter Results * PTH INTACT (03/11/2023 18:41 EDT) Intact PTH 39 19 - 88 pg/mL 03/13/2023 9:12 EDT [facility] Blood VENOUS BLOOD / Unknown 03/11/2023 18:41 EDT 03/12/2023 21:52 EDT us Provider Outr Resulting Lab CHEMISTRY & BLOOD GA S ORDERABLES Final Result [facility] [address] [place] [address] documented in this encounter Visit Diagnoses Not on filedocumented in this encounter Care Teams Professor Of Nursing Relationship Specialty Start Date End Date Unknown, Provider, PCP - General 02/14/13 documented as of this encounter
--- OUTSIDE RECORDS SUMMARY | 2024-07-31 18:46 | XMS_ITS | Clinical Summary ---
Author Organization [facility] Address [address] [place] [address] Care Team Providers Care Flap Presser Name Role Phone Unknown, Provider MD Primary Care Provider Unava ilable Social History Tobacco Use Types Packs/Day Years Used Date Smoking Tobacco: Never Assessed Sex and Gender Information Value Date Recorded Sex Assigned at Not on file Legal Sex Male 18:17 EST Gender Identity Not on file Sexual Orientation Not on file Plan of Treatment Health Maintenance Due Date Last Done Comments Hepatitis C Screen 1965 COVID-19 Vaccine (2023-25 season) 2024 RSV Immunization ( o r 60+ Years) (1 - 1-dose 75+ series) 2038 Insurance [facility] [place] [id number] Care Teams Flap Presser Relationship Specialty Start Date End Date Unknown, Provider, PCP - General 02/14/13
--- OUTSIDE RECORDS SUMMARY | 2024-07-31 18:46 | XMS_ITS | Encounter Summary ---
Author Organization [facility] Address [address] [place] [address] Care Team Providers Care Nursery Technician Name Role Phone Unknown, Provider MD Primary Care Provider Unava ilable Encounter Details Date Type Department Care Team (Late st Contact Info) Description 09/04/2020 Lab Requisition [facility] Pathology & Laboratory Medicine - [facility] [address] [place], [place] [address] Outr Resulting Lab, Provider Social History Tobacco [...] Associated Diagnosis Comments PSA TOTAL, DIAGNOSTIC Routine 09/03/2020 15:15 EST documented in this encounter Results * PSA TOTAL, DIAGNOSTIC (09/03/2020 15:15 EST) PSA 3.0 0.0 - 3.5 ng/mL 09/06/2020 10:58 EST [facility] Blood VENOUS BLOOD / Unknown 09/03/2020 15:15 EST 09/05/2020 20:21 EST Narrative [facility] - 09/06/2020 10:58 EST NOTE: Serum PSA concentration should not be interpreted as absolute evidence for the presence or absence of malignant disease. Assayed on Siemens ADVIA Clixtraur XPT using chemiluminescent technology.??Values obtained by using different assay methods cannot be used interchangeably. us Provider Outr Resulting Lab CHEMISTRY & BLOOD GA S ORDERABLES Final Result [facility] [address] [place] [address] documented in this encounter Visit Diagnoses Not on filedocumented in this encounter Care Teams Nursery Technician Relationship Specialty Start Date End Date Unknown, Provider, PCP - General 02/14/13 documented as of this encounter
--- OUTSIDE RECORDS SUMMARY | 2024-07-31 18:46 | XMS_ITS | Encounter Summary ---
[place] [address] Care Team Providers Care Lockstitch Cup Setter Name Role Phone Yoni Ramírez MD Primary Care Provider Encounter Details Date Type Department Care Team (Latest Contact Info) Description 08/22/2013 6:36 PM EST - 08/23/2013 2:41 PM EST Hospital Encounter [address] [place] [address] Job Núñez MD [facility] [place] [address] Duane Garcia MD [facility] [place] [address] [place] [address] [place] [address] Discharge Disposition: Home Social History Tobacco Use [...] Sign Reading Time Taken Comments Blood Pressure 141/79 08/23/2013 11:55 AM EST Pulse 79 08/23/2013 11:55 AM EST Temperature 37.5 ??C (99.5 ??F) 08/23/2013 11:[address] Respiratory Rate 20 08/23/2013 11:55 AM EST Oxygen Saturation 96% 08/23/2013 11:55 AM EST Inhaled Oxygen Concentration - - Weight 104.3 kg (230 lb) 08/22/2013 9:30 AM EST Height 177.8 cm (5' 10) 08/22/2013 8:00 PM EST Body Mass Index 33 08/22/2013 9:30 [...] for nausea has been sent to the [facility] documented in this encounter Medications at Time [...] AVS provided to pt. Questions answered * lEadio Rosenberg MD - 08/23/2013 1:17 PM EST [...] spent <30 minutes (Day of Discharge Code 08270) involved in the final examination of the [...] patient. ID: 48 y.o. 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 Also give him his normal lisinopril/HCTZ ?? [...] epi injection, sphincterotomy, balloon sweep Findings: The gauge maker apprentice film was normal with the exception of [...] 43.2 PLATELET 253 234 Recent Labs Basename 08/23/13 0511 08/22/13 1335 NA 140 141 K 3.7 [...] for nausea has been sent to the [facility] Discharge References/Attachments: Discharge References/Attachments None Inpatient Provider Contact Information: For questions regarding this document or issues relating to this hospitalization on the Medical Service, please contact your inpatient physician through the [facility] Chemical Strength Tester . Issues afterhours and on weekends will [...] EST Office Visit Hematology/Oncolog y at [address] [phone] Deyvi Ibrahim MD [facility] [place] [address] Isabel Berry APRN [facility] [place] [address] 08/05/2024 12:00 PM EST Infusion Hematology Oncology at [address] [phone] 08/27/2024 10:00 AM EST Hospital [place] [phone] Gulshan Elder MD [facility] [place] [address] 08/27/2024 10:00 AM EST Anesthesia [place] [phone] Swati Gonzalez MD [facility] [place] [address] 08/27/2024 10:00 AM EST - 08/27/2024 11:00 AM EST [place] [phone] Gulshan Elder MD [facility] [place] [address] EGD, UPPER GI ENDOSCOPY (WRVU 2.09) Pending [...] ARREGUIN ?Ordered By: LISA BOURGEOIS ? MR#: [id number] ?LOC: ??1EST ? /Sex: ??1965 (48 years), ? Male ? PROCEDURE: Urine Culture ?SOURCE: U CC ? COLLECTED: 08/23/2013 06:38 ? STARTED: 08/23/2013 07:36 ? FINAL REPORT ? Final Report ? Verified:07/2014 08:04 ? No growth (Less than 1,000 cfu/ml). ? ___ ? ___ EVELYN GRACIA Urine specimen obtained by clean catch procedure (specimen) 08/23/2013 6:38 AM EST 08/23/2013 7:35 AM EST Narrative Resulting Agency Comment Spec In Lab Lisa Bourgeois MD MICROBIOLOGY - GENER AL ORDERABLES [facility] * THC (Marijuana), Urine Confirmation (08/23/2013 6:32 AM EST) U THC Conf See Note [facility] Comment:Please see deb r eport in Chart Review under the Non-DH Laboratory Heading. Urine specimen (specimen) 08/23/2013 6:32 AM EST 08/25/2013 8:43 AM EST Narrative Resulting Agency Comment Spec In Lab Lisa Bourgeois MD LAB SEND OUT ORDERAB LES [facility] * Drug Screen with Confirmation, Urine (08/23/2013 [...] employment-relate d drug testing. Test Performed by: [facility] [address], [place] [address] Gristmill Operator: Génesis Dominguez, Ph.D. EVELYN GRACIA Urine specimen (specimen) 08/23/2013 6:32 AM EST 08/25/2013 8:43 AM EST Narrative Resulting Agency Comment Spec In Lab Lisa Bourgeois MD URINE ORDERABLES CERNER MILLENNIUM * (ABNORMAL) Urinalysis with microscopic (08/23/2013 6:32 [...] Urine Dipstick Clear Clear CERNER MILLENNIUM Specific [place] Urine Automated 1.015 1.002 - 1.030 CERNER [...] MD URINE ORDERABLES EVELYN GRACIA * (ABNORMAL) Differential, Automated (08/23/2013 5:11 AM [...] EST Lisa Bourgeois MD HEMATOLOGY ORDERABLE S [facility] * Basic Metabolic Panel (non-fasting) (08/23/2013 5:11 AM EST) [facility] Glucose 117 60 - 199 mg/dL CERNER MILLENNIUM Comment:Diabetes: >=200 mg/d L plus symptoms Blood Urea Nitrogen 11 10 - 20 mg/dL CERNER MILLENNIUM Creatinine 0.90 0.80 - 1.50 mg/dL CERNER MILLENNIUM Comment: Please note that the pediatric reference intervals supplied above were not validated at [facility]. Results from pediatric patients should be interpreted [...] In Lab Lisa Bourgeois MD CHEMISTRY ORDERABLES [facility] * (ABNORMAL) CBC (with Diff) (08/23/2013 5:11 [...] MD HEMATOLOGY ORDERABLE S Performing Organization Address [facility] de Phone Number EVELYN OSCARENNIUM * (ABNORMAL) Hepatic Function Panel (08/23/2013 5:11 AM EST) Protein, Total 5.7(L) 6.4 - 8.3 gm/dL CERNER MILLENNIUM Albumin 3.9 3.2 - 5.2 gm/dL CERNER MILLENNIUM Aspartate Aminotransferase 26 0 - 39 unit/L CERNER MILLENNIUM Alanine Aminotransferase 38 0 - 55 unit/L CERNER MILLENNIUM Alkaline Phosphatase 77 40 - 120 unit/L CERNER MILLENNIUM Bilirubin, Total 1.4(H) 0.2 - 1.3 mg/dL CERNER MILLENNIUM Comment:result rechecked-[facility] Bilirubin, Direct 0.3 0.0 - 0.3 mg/dL CERNER MILLENNIUM Blood specimen (specimen) 08/23/2013 5:11 AM EST 08/23/2013 5:39 AM EST Narrative Resulting Agency Comment Spec In Lab Lisa Bourgeois MD CHEMISTRY ORDERABLES Performing Organization Address [facility] Co de Phone Number EVELYN GONZÁLESIUM * Prothrombin Time (08/23/2013 5:11 AM EST) Prothrombin Time 14.7 12.0 - 15.0 sec CERNER MILLENNIUM Comment: [facility] Transfusion Committee Guidelines: INR less than 2.0, [...] MD HEMATOLOGY ORDERABLE S Performing Organization Address [facility] de Phone Number CERNER CELESTINAENNIUM * (ABNORMAL) Magnesium (08/23/2013 5:11 AM EST) Magnesium 0.65(L) 0.69 - 1.07 mmol/L CERNER MILLENNIUM Blood specimen (specimen) 08/23/2013 5:11 AM EST 08/23/2013 5:39 AM EST Narrative Resulting Agency Comment Spec In Lab Lisa Bourgeois MD CHEMISTRY ORDERABLES Performing Organization Address [facility] Phone Number CERDAYLIN OSCARENNIUM * Phosphorus (08/23/2013 5:11 AM EST) Phosphorus 3.3 2.5 - 4.5 mg/dL CERNER MILLENNIUM Blood specimen (specimen) 08/23/2013 5:11 AM EST 08/23/2013 5:39 AM EST Narrative Resulting Agency Comment Spec In Lab Lisa Bourgeois MD CHEMISTRY ORDERABLES Performing Organization Address [facility] de Phone Number CERNER CELESTINAENNIUM * (ABNORMAL) Differential, Automated (08/22/2013 1:35 PM EST) Neutrophil % 82.2(H) 34.0 - 71.0 % [...] MD HEMATOLOGY ORDERABL ES Performing Organization Address City/[facility] Co de Phone Number EVELYN GONZÁLESIUM * Lipase (08/22/2013 1:35 PM EST) Lipase 53 0 - 60 unit/L CERNER MILLENNIUM Blood specimen (specimen) 08/22/2013 1:35 PM EST 08/22/2013 1:58 PM EST Narrative Resulting Agency Comment Spec In Lab Duane Garcia MD CHEMISTRY ORDERABLE S EVELYN OSCARENNIUM * Amylase (08/22/2013 1:35 PM EST) Amylase 41 28 - 100 unit/L CERNER MILLENNIUM Blood specimen (specimen) 08/22/2013 1:35 PM EST 08/22/2013 1:58 PM EST Narrative Resulting Agency Comment Spec In Lab Duane Garcia MD CHEMISTRY ORDERABLE S EVELYN OSCARENNIUM * (ABNORMAL) CMP w/fasting Glucose (08/22/2013 1:35 [...] of Diabetes Mellitus, Position Statement from the [place] [employer]. ??Diabetes Care, Volume 33, Supplement 1, Aug 2009 Blood Urea Nitrogen 9(L) 10 - 20 mg/dL CERNER MILLENNIUM Creatinine 0.85 0.80 - 1.50 mg/dL CERNER MILLENNIUM Comment: Please note that the pediatric reference intervals supplied above were not validated at [facility]. Results from pediatric patients should be interpreted [...] Lab Duane Garcia MD CHEMISTRY ORDERABLE S CERDAYLIN MILLENNIUM * (ABNORMAL) CBC (with Diff) (08/22/2013 1:35 [...] 12.0 fL CERNER MILLENNIUM Blood specimen (specimen) 08/22/2013 1:35 PM EST 08/22/2013 1:58 PM EST Narrative Resulting Agency Comment Spec In Lab Duane Garcia MD HEMATOLOGY ORDERABL ES EVELYN GRACIA * ERCP (08/22/2013 9:27 AM EST) ERCP [facility] Endoscopy Patient Name: Jeff Kallie ? Procedure Date: 08/22/2013 9:27 AM ? Date of : 1965 ? Age: 48 ? Order #: [id number] ? Procedure: ? ERCP Indications: ? Evaluation and possible treatment of ? bile duct stone(s) Providers: ? Duane Garcia MD, Dk Jolly ? Samuel, TODD, Mary Cano, Voip Network Engineer Referring MD: ?Yoni Ramírez MD Medicines: ? [...] the procedure well. ? Findings: ? The gauge maker apprentice film was normal with the exception of [...] in this encounter Visit Diagnoses Diagnosis Nausea & vomiting- Primary Nausea with vomiting Hypertension Unspecified essential hypertension OA (osteoarthritis) Osteoarthrosis, unspecified whether generalized or localized, unspecified site S/P cholecystectomy Other acquired absence of organ Leukocytosis Leukocytosis, unspecified Abnormal CT of the abdomen Nonspecific [...] Given 08/22/2013 8:51 PM EST 1 mg [id number] indomethacin/placebo suppository 100 mg 100 mg, Rectal, [...] Discontinued, Routine 2050 (Given - Provider: Vania Borja, TODD) [id number] indomethacin/placebo suppository 100 mg (COMPLETED) 100 mg, [...] on Sun08/23/13 at 0900, Until Discontinued, Routine 802 (Given - Provid er: Katrin Vo RN) lisinopril (PRINIVIL;ZESTRIL) tablet 10 mg (CANCELED) 10 mg, Oral, DAILY, First dose on Sun08/22/13 at 2000, Until Discontinued, Routine 2050 (Given - Provider: Vania Borja RN) 08 (Given - Provider: Katrin Vo RN) LORazepam (ATIVAN) injection 1 mg (COMPLETED) 1 mg, Intravenous, ONCE, 1 dose, On Sun08/22/13 at 1845, Routine 184 (Given - Provider: Mili Naylor RN) sodium chloride 0.9 % flush 5 mL (CANCELED) 5 mL, Intravenous, EVERY 12 HOURS, First dose on Sun08/22/13 at 1900, Until Discontinued, Day of Surgery (Day of Procedure), Routine 2047 (Given - Provider: Vania Borja RN) 075 (Given - Provider: Katrin Vo RN - [...] Kim RN)1510 (New Bag - Provider: Zach Kim, TODD) 0805 (New Bag - Provider: Katrin Vo RN)1402 (Paused - Provider: Joe Bosch RN) PRN Medication Order 08/21/2013 08/22/2013 08/23/2013 [...] Zach Kim RN)1135 (Given - Provider: Zach Kim, TODD)1145 (Given - Provider: Zach Kim RN)1510 (Given - Provider: Zach Kim RN)1710 (Given - Provider: Zach Kim RN) hydrALAZINE (APRESOLINE) injection 10 mg (CANCELED) 10 mg, Intravenous, EVERY 6 HOURS PRN, Starting on Sun08/22/13 at 1558, Until 08/23/13 at 1645, High Blood Pressure, ban SBP >180, Routine 2112 (Given - Provider: Vania Borja, TODD) HYDROmorphone (DILAUDID) injection 0.2-0.4 mg (CANCELED) 0.2-0.4 mg, Intravenous, EVERY 4 HOURS PRN, Starting on Sun08/22/13 at 2012, Until 08/23/13 at 1645, Pain, Routine 2056 (Given - Provider: Vania Borja RN) 1224 (Given - Provider: Joe Bosch RN) LORazepam (ATIVAN) injection 1 mg 1 mg, Intravenous, EVERY 4 HOURS PRN, Starting on Sun08/22/13 at 1557, Until 08/23/13 at 1645, Nausea, Vomiting, Routine 1510 (Given - Provider: Zach Kim, TODD)1710 (Given - Provider: Zach Kim RN) promethazine (PHENERGAN) injection 6.25 mg (CANCELED) 6.25 mg, Intravenous, EVERY 6 HOURS PRN, Nausea, Starting on Sun08/22/13 at 1546, Until 08/23/13 at 1645, Avoid extravasation 2147 (Given - Provider: Vania Borja RN) documented in this encounter Care Teams Lockstitch Cup Setter Relationship Specialty Start Date End Date Yoni Ramírez MD [address] [place] [id number] PCP - General 07/05/10 documented as of this encounter
--- OUTSIDE RECORDS SUMMARY | 2024-07-31 18:46 | XMS_ITS | Encounter Summary ---
Author Organization [facility] [place] [address] Care Team Providers Care Rides Supervisor Name Role Phone Yoni Ramírez MD Primary Care Provider Encounter Details Date Type Department Care Team (Latest Contact Info) Description 01/25/2017 - 01/25/2017 11:59 PM EDT Hospital Encounter Radiology Library at [facility] [address] [address] Karishma Maurer MD [facility] [place] [address] Pain Discharge Disposition: Home Social History Tobacco Use [...] daily. 02/20/2017 documented as of this encounter Plan of Treatment Upcoming Encounters Date Type Department Care Team (Latest Contact Info) Description 08/05/2024 11:30 AM EST Office Visit Hematology/Oncolog y at [address] [phone] Deyvi Ibrahim MD [facility] [place] [address] Isabel Berry APRN [facility] [place] [address] 08/05/2024 12:00 PM EST Infusion Hematology Oncology at [address] [phone] 08/27/2024 10:00 AM EST Hospital Encounter [place] [phone] uGlshan Elder MD [facility] [place] [address] 08/27/2024 10:00 AM EST Anesthesia Event [place] [phone] Swati Gonzalez MD [facility] [place] [address] 08/27/2024 10:00 AM EST - 08/27/2024 11:00 AM EST Surgery [place] [address] Gulshan Elder MD [facility] [place] [address] EGD, UPPER GI ENDOSCOPY (WRVU 2.09) Scheduled [...] Associated Diagnosis Comments FILM LIBRARY STORAGE ONLY ULTRASOUND STUDY Routine 01/25/2017 12:00 AM EDT Pain documented in this encounter Results * Film Library- Storage Only Ultrasound Study (01/25/2017 12:00 AM EDT) Narrative [facility] - 02/23/2017 10:01 AM EDT This exam is for storage only and is auto-finalizing. Karishma Maurer MD IMG FILM LIBRARY ORDERABLES [place], [place] documented in this encounter Visit Diagnoses Diagnosis Pain Generalized pain Abnormal CT of the abdomen Nonspecific (abnormal) findings on radiological and other examination of abdominal area, including retroperitoneum Esophagitis Esophagitis, unspecified Gastroesophageal reflux disease with esophagitis, unspecified whether hemorrhage Colitis Other and unspecified noninfectious gastroenteritis and colitis Screen for colon cancer Special screening for malignant neoplasms, colon documented in this encounter Care Teams Rides Supervisor Relationship Specialty Start Date End Date Yoni Ramírez MD [address] [address] PCP - General 07/05/10 documented as of this encounter
--- OUTSIDE RECORDS SUMMARY | 2024-07-31 18:46 | XMS_ITS | Encounter Summary ---
Author Organization [facility] [place] [address] Care Team Providers Care Account Advisor Name Role Phone Yoni Ramírez MD Primary Care Provider Encounter Details Date Type Department Care Team (Late st Contact Info) Description 03/28/2013 Orders [place] [address] Lidia Vyas [facility] [place] [address] Social History Tobacco Use Types Packs/Day Years [...] AM EST Office Visit Hematology/Oncolog y at [address] [phone] Deyvi Ibrahim MD [facility] [place] [address] Isabel Berry ROADS SUPERINTENDENT [facility] [place] [address] 08/05/2024 12:00 PM EST Infusion Hematology Oncology at [address] [phone] 08/27/2024 10:00 AM EST Hospital Encounter [place] [address] Gulshan Elder MD [facility] [place] [address] 08/27/2024 10:00 AM EST Anesthesia Event [place] [phone] Swati Gonzalez MD [facility] [place] [address] 08/27/2024 10:00 AM EST - 08/27/2024 11:00 AM EST Surgery [place] [phone] Gulshan Elder MD [facility] [place] [address] EGD, UPPER GI ENDOSCOPY (WRVU 2.09) Pending Results Name Type Priority Associated Diagnoses Date /Time Film Library- Storage only MR Abdomen Imaging Routine 03/28/2013 3:10 PM EDT Scheduled Procedures Name Priority Associated Diagnoses Date/Ti ca EGD, UPPER GI ENDOSCOPY (WRVU 2.09) Abnormal [...] on filedocumented in this encounter Care Teams Account Advisor Relationship Specialty Start Date End Date Yoni Ramírez MD [address] [place] [address] PCP - General 07/05/10 documented as of this encounter
--- OUTSIDE RECORDS SUMMARY | 2024-07-31 18:46 | XMS_ITS | Encounter Summary ---
Author Organization [facility] [place] [address] Care Team Providers Care Bee Robber Name Role Phone Yoni Ramírez MD Primary Care Provider Encounter Details Date Type Department Care Team (Latest Contact Info) Description 02/16/2017 - 02/16/2017 11:59 PM EDT Hospital Encounter Radiology Library at [facility] [address] [address] Karishma Maurer MD [facility] [place] [address] Discharge Disposition: Home Social History Tobacco Use [...] EST Office Visit Hematology/Oncolog y at [address] [phone] Deyvi Ibrahim MD [facility] [place] [address] Isabel Berry APRN [facility] [place] [address] 08/05/2024 12:00 PM EST Infusion Hematology Oncology at [address] [phone] 08/27/2024 10:00 AM EST Hospital Encounter [place] [phone] Gulshan Elder MD [facility] [place] [address] 08/27/2024 10:00 AM EST Anesthesia Event [place] [phone] Swati Gonzalez MD [facility] [place] [address] 08/27/2024 10:00 AM EST - 08/27/2024 11:00 AM EST Surgery [place] [address] Gulshan Elder MD [facility] [place] [address] EGD, UPPER GI ENDOSCOPY (WRVU 2.09) Scheduled [...] STORAGE ONLY CT ABDOMEN AND PELVIS Routine 02/16/2017 12:00 AM EDT documented in this encounter Results * Film Library- Storage Only CT Abdomen & Pelvis (02/16/2017 12:00 AM EDT) Narrative [facility] - 05/23/2017 8:44 PM EDT This exam is for storage only and is auto-finalizing. Karishma Maurer MD IMG FILM LIBRARY ORDERABLES [place], [place] documented in this encounter Visit Diagnoses Not on filedocumented in this encounter Care Teams Bee Robber Relationship Specialty Start Date End Date Yoni Ramírez MD [address] [place] [address] PCP - General 07/05/10 documented as of this encounter
--- OUTSIDE RECORDS SUMMARY | 2024-07-31 18:46 | XMS_ITS | Encounter Summary ---
Author Organization [facility] Address [address] [place] [address] Care Team Providers Care Winder Tender Name Role Phone Unknown, Provider Primary Care Provider Unava ilable Encounter Details Date Type Department Care Team (Late st Contact Info) Description 02/01/2022 Lab Requisition [facility] Pathology & Laboratory Medicine - [facility] [address] [place] [address] Aguila Altman MD [address] [place] [address] Retention of urine, unspecified Social History Tobacco Use Types Packs/Day Years [...] Procedure Name Priority Date/Time Associated Diagnosis Comments NON MEDIATOR/FNA CYTOLOGY Today 01/31/2022 12:55 EDT Retention of urine, unspecified documented in this encounter Results * NON MEDIATOR/FNA CYTOLOGY (01/31/2022 12:55 EDT) Note to Patient The following pathology results have been interpreted by your pathologist and may be available to you before your health provider has had the opportunity to review them. Please allow time for your provider to receive these results and explore management options, if applicable. 02/01/2022 14:34 EDT [facility] Final Diagnosis URINE, CATHETERIZED, CYTOLOGIC EVALUATION: - Negative for high grade urothelial carcinoma. - Degenerated urothelial cells and leukocytes. 02/01/2022 14:34 T [facility] Attestation By the signature below, the attending physician certifies that they have personally conducted a gross and/or microscopic examination of the described specimens and rendered or confirmed the above diagnosis. 02/01/2022 14:34 EDT [facility] at 1434 Clinical History Retention of urine, unspecified; R33/9 02/01/2022 14:34 T [facility] Gross Description A. 80ccs of clear yellow fluid, of which 40ccs are composed of fixative, were received and processed by selective cellular enhancement technique. 02/01/2022 14:34 T [facility] Performing Lab [facility] 02/01/2022 14:34 [facility] Scanned Images 02/01/2022 14:34 [facility] Urine URINE SPECIMEN COLLECTION, CATHETERIZED / Unknown 01/31/2022 12:55 EDT 02/01/2022 6:29 EDT us Aguila Altman MD PATHOLOGY ORDERABLES Final R esult [facility] [address] [place] [address] documented in this encounter Visit Diagnoses Diagnosis Retention of urine, unspecified documented in this encounter Care Teams Winder Tender Relationship Specialty Start Date End Date Unknown, Provider, PCP - General 02/14/13 documented as of this encounter
--- OUTSIDE RECORDS SUMMARY | 2024-07-31 18:46 | XMS_ITS | Encounter Summary ---
Author Organization [facility] Address [address] [place] [address] Care Team Providers Care Napping Machine Operator Name Role Phone Unknown, Provider MD Primary Care Provider Unava ilable Reason for Visit * Reason Onset Date Comments Public Relations Writer Message 02/07/2022 Encounter Details Date Type Department Care Team (Late st Contact Info) Description 02/07/2022 Telephone [facility] [address], [place] [phone] Patrick Pierce MD [address] [place] [address], [address] [place] [address] Public Relations Writer Message Social History Tobacco Use Types Packs/Day Years Used Date Smoking Tobacco: Never Assessed Sex and Gender Information Value Date Recorded Sex Assigned at Not on file Legal Sex Male 18:17 EST Gender Identity Not on file Sexual Orientation Not on file documented as of this encounter Miscellaneous Notes * Telephone Encounter - Patrick Pierce MD - 02/07/2022 0664 EDT On-call nephrology note: Recd call from [facility] ER re pt with [place] on CKD. Pt with h/o CKD (baseline Cr ~1.5mg%) presented to ER with no urine output for 2 days. Has h/o ER visits for emesis due to ?marijuana intake. Also has h/o prostate CA and per chart sees Dr Altman (Urology) for ?urinary retention. Found to have Cr 8.0mg% with hyponatremia (Na 125meq/l), K 4.8meq/l, BUN 89mg%, Cr 8.0mg%. Also found to have leukocytosis with WBC 27, Hb 17g%. Pt meds possibly includes NSAID intake. Reviewed chart - no urgent indication for dialysis at this time. I recommended iv fluid 0.9% saline @100-125ml/h, dowd catheter insertion and sepsis workup (Urinalysis, urine culture,blood culture). Further recs based on followup bloodwork and urine output. Patrick Pierce MD Renal Attending documented in this encounter Plan of Treatment Not on file documented as of this encounter Visit Diagnoses Not on filedocumented in this encounter Care Teams Napping Machine Operator Relationship Specialty Start Date End Date Unknown, Provider, PCP - General 02/14/13 documented as of this encounter
--- OUTSIDE RECORDS SUMMARY | 2024-07-31 18:46 | XMS_ITS | Encounter Summary ---
Author Organization [facility] Address [address] [place] [address] Care Team Providers Care Statistical Analyst Name Role Phone Unknown, Provider Primary Care Provider Unava ilable Encounter Details Date Type Department Care Team (Late st Contact Info) Description 10/10/2021 Lab Requisition [facility] Pathology & Laboratory Medicine - [facility] [address] [place] [address] Aguila Altman MD [address] [place] [address] Retention of urine, unspecified Social History Tobacco [...] Name Priority Date/Time Associated Diagnosis Comments NON CORPORATE STRATEGY INTERN/FNA CYTOLOGY Today 10/06/2021 14:48 EST Retention of urine, unspecified documented in this encounter Results * NON CORPORATE STRATEGY INTERN/FNA CYTOLOGY (10/06/2021 14:48 EST) Note to Patient The following pathology results have been interpreted by your pathologist and may be available to you before your health provider has had the opportunity to review them. Please allow time for your provider to receive these results and explore management options, if applicable. 10/11/2021 11:54 EST [facility] Final Diagnosis A. URINE, VOIDED, CYTOLOGIC EVALUATION: - Negative for high grade urothelial carcinoma. - Rare reactive urothelial cells present. 10/11/2021 11:54 [facility] Attestation There was significant resident/shira w involvement in the diagnostic evaluation of this case. By the signature below, the attending physician certifies that they have personally conducted a gross and/or microscopic examination of the described specimens and rendered or confirmed the above diagnosis. 10/11/2021 11:54 [facility] at 1154 Clinical History Retention of urine; R33.9 10/11/2021 11:54 [facility] Gross Description A. 100ccs of dark philip fluid, of which 50ccs are composed of fixative, were received and processed by selective cellular enhancement technique. 10/11/2021 11:54 [facility] Resident/Shira w: Nicolasa Sewell MD 10/11/2021 11:54 [facility] Performing Lab [facility] 10/11/2021 11:54 [facility] Scanned Images 10/11/2021 11:54 [facility] Urine VOIDED URINE SPECIMEN / Unknown 10/06/2021 14:48 EST 10/10/2021 6:48 EST us Aguila Altman MD PATHOLOGY ORDERABLES Final R esult [facility] [address] [place] [address] documented in this encounter Visit Diagnoses Diagnosis Retention of urine, unspecified documented in this encounter Care Teams Statistical Analyst Relationship Specialty Start Date End Date Unknown, Provider, PCP - General 02/14/13 documented as of this encounter
--- OUTSIDE RECORDS SUMMARY | 2024-07-31 18:46 | XMS_ITS | Encounter Summary ---
Author Organization [facility] Address [address] [place] [address] Care Team Providers Care Cocoa Mill Operator Name Role Phone Unknown, Provider Primary Care Provider Unava ilable Encounter Details Date Type Department Care Team (Late st Contact Info) Description 04/16/2015 Results Only [facility] [place] [facility] [phone] Martin Schwarz MD [address] [place] [phone] Social History Tobacco Use Types Packs/Day Years [...] Date/Time Associated Diagnosis Comments SURGICAL PATHOLOGY Routine 04/16/2015 8:15 EDT documented in this encounter Results * SURGICAL PATHOLOGY (04/16/2015 8:15 EDT) Pathology Report: SURGICAL PATHOLOGY REPORT Reports generated via electronic interface contain original data; however they are lacking the format of the original report. Caution should be taken when reading/interpret ing unformatted reports. Name: ? DEVORAH JEFF Silke ? Accession #: ? [id number] ? : ? 1965 (Age: 49) ??M ? Collect Date: ? 04/16/2015 ? Location: ? [facility] ? Receive Date: ? 04/17/2015 ? Provider: MARTIN SCHWARZ MD Copy to: ? Final Pathologic Diagnosis: COLON, RECTUM, POLYP, BIOPSY: - Tubular adenoma. Document reviewed and electronically signed by: KAILASH LUCAS MD Report ??Date: 04/23/2015 18:19 By the signature above, the attending physician certifies that he/she has personally conducted a gross and/or microscopic examination of the described specimens and rendered or confirmed the above diagnosis. Specimen(s) Received: Rectal polyp Clinical History: Screening Gross Description: ? Received in formalin labelled with proper patient identification (initials Q, G) and rectal polyp is a single pink-santiago tissue fragment (0.3 x 0.3 x 0.2 cm). Submitted intact in block 1. Dena Steele 04/20/2015 9:03 AM End of Report [facility] 04/16/2015 8:15 EDT 04/17/2015 8:15 EDT us Martin Schwarz MD PATHOLOGY ORDERABLES Final Resu lt [facility] [address] [place] [address] documented in this encounter Visit Diagnoses Not on filedocumented in this encounter Care Teams Cocoa Mill Operator Relationship Specialty Start Date End Date Unknown, Provider, PCP - General 02/14/13 documented as of this encounter
--- OUTSIDE RECORDS SUMMARY | 2024-07-31 18:46 | XMS_ITS | Encounter Summary ---
[place] [address] Care Team Providers Care Per Diem Rn Name Role Phone Yoni Ramírez MD Primary Care Provider [phone] Encounter Details Date Type Department Care Team (Late st Contact Info) Description 08/22/2013 9:35 AM EST Anesthesia [place] [address] Howard Nation MD Anesthesia Record Procedure Summary Procedure Name Responsible Anesthesiologist Anesthesia Start Time Anesthesia Stop Time ERCP (WRVU 5.85) (Trunk) Howard Nation MD 08/22/13 0935 08/22/13 1038 Events Date Time Event Comment 08/22/2013 0903 0935 Start 0936 AN Verify 0936 An Start Data 0943 An Induction 0945 An Intubation 0949 Anesthesia Ready 1013 Procedure Stop 1025 Extubation/LMA Out 1025 an stop data 1038 Stop Meds Name Total propofol 280 mg Ondansetron 4 mg Labetalol 30 mg succinylcholine 200 mg propofol INF 542.36 mg lactated ringers 200 mL * Agents Name O2 * Blood No blood administrations on file. Lines, Drains, and Airways Type Details Placement Removal (RETIRED) Peripheral IV Line - Single Lumen 08/22/13; 0915; 03/26/14; 0820 08/22/13 0915 by Zach Kim, RN 03/26/14 08 by Barbara Weller RN (RETIRED) Non-Surgical Airway Mask Ventilation: Easy (1); ETT Type: Cuffed, Oral; ETT Size: 7.5 mm; Removal Date: 08/22/13; Removal Time: 1025 08/22/13 0954 by 08/22/13 1025 by Ramiro Moyer CRNA documented in this encounter Social History [...] OR Notes * Anesthesia Postprocedure Evaluation - Howard Nation MD - 08/23/2013 7:08 AM EST Patient: Jeff Arreguin Procedure(s) Performed: Procedure(s): ERCP Actual Anesthetic: general Patient location: [facility] Surgical Floor Post-op pain: Adequate analgesia Post-op nausea: intractable nausea and vomiting post-procedure that exactly matches his pre-existing symptoms (which prompted a cholecystectomy in the past and this procedure today. Admitted. Last Vitals: Filed Vitals: 08/23/13 0633 BP: 131/71 Pulse: 85 Temp: 37.6 ??C (99.7 ??F) Resp: Post-op cardiovascular and respiratory status: is stable Level of consciousness: awake, alert and oriented Complications: unexpected post-op hospitalization Fluid Status: normal * Anesthesia Preprocedure Evaluation - Howard Nation MD - 08/22/2013 9:02 AM EST Pre-Anesthesia Evaluation for: Jeff Arreguin a 48 y.o. male. Procedure(s): ERCP There are no active problems to display for this patient. Past Medical History Diagnosis Date ??? Hypertension ??? Arthritis Past Surgical History Procedure Date ??? Cholecystectomy, laparoscopic ??? Foot surgery left ??? Tonsillectomy History Substance Use Topics ??? Smoking status: Former Smoker -- 1.0 packs/day for 25 years Quit date: 08/13/2011 ??? Smokeless tobacco: Not on file ??? Alcohol Use: 4.0 oz/week 8 drink(s) per week History Drug Use No Allergies Allergen Reactions ??? Lexapro (Escitalopram) Medications: MAR and/or home medications have been reviewed. Physical Exam: There were no vitals filed for this visit. There is no height or weight on file to calculate BMI. Airway Assessment: Mallampati: II TM distance: >3 FB Neck ROM: full Cardiovascular Assessment: Rhythm: regular Rate: normal Pulmonary Assessment: Dental Assessment: - normal exam Comment: Poor condition 2/2 bruxism Mis Assessment: IV access: Peripheral line Anesthesia Plan: ASA 2 general, with a(n) intravenous induction Anesthetic risks, benefits, and alternatives discussed in detail with patient who appears to understand and agree. Questions answered and consent form signed. Plan GETA w [facility] - Other Informed Consent: Anesthetic plan and risks discussed with patient and spouse. Plan discussed with LONG TERM CARE PHLEBOTOMIST. [facility]. Assessment: documented in this encounter Plan of Treatment Upcoming Encounters Date Type Department Care Team (Latest Contact Info) Description 08/05/2024 11:30 AM EST Office Visit Hematology/Oncolog y at [address] [phone] Deyvi Ibrahim MD [facility] [address] [place] [address] Isabel Berry APRN [facility] [place] [address] 08/05/2024 12:00 PM EST Infusion Hematology Oncology at [address] [phone] 08/27/2024 10:00 AM EST Hospital Encounter [place] [address] Gulshan Elder MD [facility] [place] [address] 08/27/2024 10:00 AM EST Anesthesia [place] [address] Swati Gonzalez MD [facility] [place] [address] 08/27/2024 10:00 AM EST - 08/27/2024 11:00 AM EST Surgery [place] [phone] Gulshan Elder MD [facility] [place] [address] EGD, UPPER GI ENDOSCOPY (WRVU 2.09) Scheduled [...] MAR Action Action Date Dose Rate Site labetalol (NORMODYNE;TRANDATE) injection PRN, Starting on Sun08/22/13 at 0948, Until Sun08/22/13 at 1038, High Blood Pressure, Anesthesia Intra-op, Routine Given 08/22/2013 10:34 AM EST 10 mg Given 08/22/2013 10:05 AM EST 10 mg Given 08/22/2013 9:48 AM EST 10 mg lactated ringers infusion CONTINUOUS PRN, Starting on Sun08/22/13 at 0942, Until Sun08/22/13 at 1038, Anesthesia Intra-op New Bag 08/22/2013 9:42 AM EST mL ondansetron (ZOFRAN) injection PRN, Starting on Sun08/22/13 at 1034, Until 08/23/13 at 0711, Nausea, Anesthesia Intra-op, Routine Given 08/22/2013 10:34 AM EST 4 mg propofol (DIPRIVAN) 10 mg/mL bolus injection (Anesthesia) PRN, Starting on Sun08/22/13 at 0943, Until Sun08/22/13 at 1038, Anesthesia Intra-op Given 08/22/2013 9:43 AM EST 280 mg propofol (DIPRIVAN) infusion CONTINUOUS PRN, Starting on Sun08/22/13 at 0946, Until Sun08/22/13 at 1038, Anesthesia Intra-op, Routine New Bag 08/22/2013 9:46 AM EST 200 mcg/kg/min 125.2 mL/hr succinylcholine (ANECTINE) injection PRN, Starting on Sun08/22/13 at 0943, Until Sun08/22/13 at 1038, Anesthesia Intra-op, Routine Given 08/22/2013 9:43 AM EST 200 mg documented in this encounter Care Teams Per Diem Rn Relationship Specialty Start Date End Date Yoni Ramírez MD [address] [place] [address] PCP - General 07/05/10 documented as of this encounter
[2024-07-31 19:43] LABS: Calculated LDL 72 mg/dL (<100); Cholesterol 149 mg/dL (<200); HDL Cholesterol 44 mg/dL (40-60); Triglyceride 166 mg/dL (<150)
[2024-08-01 18:44] LABS: PSA, Diagnostic <0.1 ng/mL (<=4.5)
[2024-08-11 16:39] LABS: Testosterone, Free 0.14 ng/dL (3.67-13.9); Testosterone, Total 9.5 ng/dL (240-950)
== END 2024-07-31 18:34 | disposition home or self-care (01) ==
LOC: NCHCN 18:33
PROVIDERS: PCP Internal Medicine; Visit Provider Internal Medicine
DX: E78.5 Hyperlipidemia, unspecified (principal); C61 Malignant neoplasm of prostate
CPT/HCPCS: 80061; 84402; 84403; 84153

== ENCOUNTER 2024-09-23 11:26 | Outpatient (CLI) | payer MEDICARE, MEDICAID, SELFPAY ==
[2024-09-23 10:57] LABS: Abs Immature Grans 0.39 10^3/uL (0.0-0.06); Absolute Basophil Count 0.05 10^3/uL (0.0-0.2); Absolute Eosinophil Count 0.13 10^3/uL (0.0-0.7); Absolute Lymphocyte Count 1.67 10^3/uL (1.2-3.4); Absolute Monocyte Count 0.74 10^3/uL (0.1-0.8); Absolute Neutrophil Count 7.41 10^3/uL (1.2-6.7); Basophils % 0.5 %; Eosinophils % 1.3 %; HCT 40.5 % (40.0-50.0); HGB 13.4 g/dL (13.5-17.5); Immature Grans % 3.8 %; Lymphocytes % 16.1 %; MCH 32.1 pg (27.0-33.0); MCHC 33.1 % (32.0-36.0); MCV 97 fL (80-95); MPV 8.9 fL (8.0-11.0); Monocytes % 7.1 %; Neutrophils % 71.2 %; Platelet Count 568 10^3/uL (130-400); RBC 4.18 10^6/uL (4.36-5.78); RDW 13.3 % (11.8-14.1); RDW-SD 47.8 fL; WBC 10.39 10^3/uL (4.4-10.8)
[2024-09-23 11:19] LABS: ALT 46 U/L (16-63); AST 28 U/L (15-37); Albumin 2.7 g/dL (3.4-5.0); Alkaline Phosphatase 205 U/L (46-116); Anion Gap 7.8 mmol/L (3-11); BUN 12 mg/dL (7-18); Bilirubin, Total 0.53 mg/dL (0.2-1.0); CO2 28.2 mmol/L (21.0-32.0); CREATININE 1.2 mg/dL (0.70-1.30); Calcium 8.4 mg/dL (8.5-10.1); Chloride 101 mmol/L (98-107); Glucose 111 mg/dL (74-106); Potassium 4.4 mmol/L (3.5-5.1); Sodium 137 mmol/L (136-145); Total Protein 8.2 g/dL (6.4-8.2)
--- OUTSIDE RECORDS SUMMARY | 2024-09-23 11:31 | XMS_ITS | Encounter Summary ---
Author Organization [facility] Address [facility] [place] [address] Care Team Providers Care Horse Trekking Guide Name Role Phone Yoni Ramírez MD Primary Care Provider [phone] Encounter Details Date Type Department Care Team [...] on filedocumented in this encounter Care Teams Horse Trekking Guide Relationship Specialty Start Date End Date Yoni Ramírez MD [address] [place] [address] PCP - General 07/05/10 documented as of this encounter
--- OUTSIDE RECORDS SUMMARY | 2024-09-23 11:31 | XMS_ITS | Encounter Summary ---
Author Organization [facility] [place] [address] Care Team Providers Care Timber Hewer Name Role Phone Yoni Ramírez MD Primary Care Provider Encounter Details Date Type Department Care Team (Late st Contact Info) Description 11/06/2023 12:05 AM EDT Ancillary Procedure Radiology Library at [facility] [place] [address] [place] [phone] Yoni Ramírez MD [address] [place] [address] Social History Tobacco Use Types Packs/Day Years [...] Abdomen Pelvis (11/06/2023 12:05 AM EDT) Narrative [facility] - 11/07/2023 3:57 AM EDT This exam is auto-finalizing. It's purpose is for storage only. Yoni Ramírez MD IMG FILM LIBRARY ORD ERABLES Performing Organization Address City/State/[facility] Co de Phone Number [place], [place] documented in this encounter Visit Diagnoses Not on filedocumented in this encounter Care Teams Timber Hewer Relationship Specialty Start Date End Date Yoni Ramírez MD [address] [place] [address] PCP - General 07/05/10 documented as of this encounter
--- OUTSIDE RECORDS SUMMARY | 2024-09-23 11:31 | XMS_ITS | Encounter Summary ---
Author Organization [facility] [place] [address] Care Team Providers Care Cardiology Clinical Nurse Specialist Name Role Phone Yoni Ramírez MD Primary Care Provider [phone] Encounter Details Date Type Department Care Team (Late st Contact Info) Description 04/17/2024 Telephone Gastroenterology at [facility] [place] [phone] Carmela Blackmon Social History Tobacco Use Types [...] - 04/17/2024 2:23 PM EDT Jeff Arreguin [id number] Diagnosis/Indication: screen for colon cancer; esophagitis; GERD; [...] Upper Endoscopy & Colonoscopy before? Yes: Date [facility] in [place] If yes, did you have any problems [...] has cancer You must have a responsible republican who will drive you to your procedure, stay on campus for the entire duration of your procedure, and drive you home from your procedure. Who will likely be your pedicab driver for the procedure? *Please Verify the [...] on filedocumented in this encounter Care Teams Cardiology Clinical Nurse Specialist Relationship Specialty Start Date End Date Yoni Ramírez MD [address] [place] [phone] PCP - General 07/05/10 documented as of this encounter
--- OUTSIDE RECORDS SUMMARY | 2024-09-23 11:31 | XMS_ITS | Encounter Summary ---
Author Organization [facility] Address [facility] [place] [address] Care Team Providers Care Upper And Bottom Lacer Hand Name Role Phone Yoni Ramírez MD Primary Care Provider [phone] Encounter Details Date Type Department Care Team (Latest Contact Info) Description 09/23/2024 Travel Social History Tobacco Use Types Packs/Day [...] on filedocumented in this encounter Care Teams Upper And Bottom Lacer Hand Relationship Specialty Start Date End Date Yoni Ramírez MD [address] [place] [address] PCP - General 07/05/10 documented as of this encounter
--- OUTSIDE RECORDS SUMMARY | 2024-09-23 11:31 | XMS_ITS | Encounter Summary ---
Author Organization [facility] [place] [address] Care Team Providers Care Chief Diversity Officer Name Role Phone Yoni Ramírez MD Primary Care Provider [phone] Encounter Details Date Type Department Care Team (Late st Contact Info) Description 10/17/2023 Telephone Hematology/Oncology at [address] [address] Theresa Lay Social History Tobacco [...] Jeff as he missed his appts at [facility] for a ct/cap and bone scan today. He said he is not feeling well and could not make the drive by himself. He is going to reschedule the appts. I am going to push the appts out until I know when he is scheduled again at [facility] documented in this encounter Plan of Treatment Not on file documented as of this encounter Visit Diagnoses Not on filedocumented in this encounter Care Teams Chief Diversity Officer Relationship Specialty Start Date End Date Yoni Ramírez MD [address] [place] [address] PCP - General 07/05/10 documented as of this encounter
--- OUTSIDE RECORDS SUMMARY | 2024-09-23 11:31 | XMS_ITS | Encounter Summary ---
Author Organization [facility] Address [facility] [place] [address] Care Team Providers Care Utility Worker Production Name Role Phone Yoni Ramírez MD Primary Care Provider Reason for Visit * Treatment/Therapy Plan Authorization (Routine) - Authorized Specialty Diagnoses / Procedures Referred By Contsahil t Referred To Contact Hematology and Oncology Diagnoses Lupron Procedures INFUSION ROOM Isabel Berry APRN [facility] [place] [address] Stj Hem Onc Infusion [address] [place] [phone] Referral ID Status Reason Start Date Expiration Date V isits Requested Visits Authorized [id number] Authorized 04/15/2024 04/15/2025 99 99 Encounter Details Date Type Department Care Team (Late st Contact Info) Description 09/23/2024 11:30 AM EST Infusion Hematology Oncology at [address] [phone] Arrived Social History Tobacco Use Types Packs/Day Years [...] on filedocumented in this encounter Care Teams Utility Worker Production Relationship Specialty Start Date End Date Yoni Ramírez MD [address] [place] [phone] PCP - General 07/05/10 documented as of this encounter
--- OUTSIDE RECORDS SUMMARY | 2024-09-23 11:31 | XMS_ITS | Encounter Summary ---
Author Organization [facility] [place] [address] Care Team Providers Care Algebraist Name Role Phone Yoni Ramírez MD Primary Care Provider [phone] Encounter Details Date Type Department Care Team (Late st Contact Info) Description 11/26/2023 Telephone Hematology/Oncology at [address] [phone] Theresa Lay Social History Tobacco [...] on filedocumented in this encounter Care Teams Algebraist Relationship Specialty Start Date End Date Yoni Ramírez MD [address] [place] [address] PCP - General 07/05/10 documented as of this encounter
--- OUTSIDE RECORDS SUMMARY | 2024-09-23 11:31 | XMS_ITS | Encounter Summary ---
Author Organization [facility] [place] [address] Care Team Providers Care Shirt Closer Name Role Phone Yoni Ramírez MD Primary Care Provider [phone] Encounter Details Date Type Department Care Team (Late st Contact Info) Description 02/25/2024 Telephone Hematology/Oncology at [address] [phone] Stephanie Rodriguez, RN Social History [...] Received the following message from patient via [facility]: Devora, I am reaching out to you [...] on 01/21/2024 Reason for Call: Follow-up to [facility] message above Assessment: RN call to patient. No answer, mailbox is full and unable to leave message. Responded to patient via [facility]. See that thread. documented in this encounter Plan of Treatment Not on file documented as of this encounter Visit Diagnoses Not on filedocumented in this encounter Care Teams Shirt Closer Relationship Specialty Start Date End Date Yoni Ramírez MD [address] [place] [phone] PCP - General 07/05/10 documented as of this encounter
--- OUTSIDE RECORDS SUMMARY | 2024-09-23 11:31 | XMS_ITS | Encounter Summary ---
Author Organization [facility] [place] [address] Care Team Providers Care Lead Quality Technician Name Role Phone Yoni Ramírez MD Primary Care Provider [phone] Reason for Visit * Reason Onset Date Comments Labs Only 09/18/2023 Encounter Details Date Type Department Care Team (Late st Contact Info) Description 09/18/2023 Telephone Hematology/Oncology at [address] [address] Manav Dexter RN Labs Only [...] on filedocumented in this encounter Care Teams Lead Quality Technician Relationship Specialty Start Date End Date Yoni Ramírez MD [address] [place] [phone] PCP - General 07/05/10 documented as of this encounter
--- OUTSIDE RECORDS SUMMARY | 2024-09-23 11:31 | XMS_ITS | Encounter Summary ---
Author Organization [facility] [place] [address] Care Team Providers Care Tire Setter Name Role Phone Yoni Ramírez MD Primary Care Provider [phone] Reason for Visit * Reason Onset Date Comments Nausea 10/17/2023 Encounter Details Date Type Department Care Team ([facility] st Contact Info) Description 10/17/2023 Telephone Hematology Oncology at [address] [phone] Ann Ceron RN Nausea Social [...] Jeff missed his imaging appt today at [facility] due to feeling poorly. Jeff reports [...] feel better this afternoon compared to the medical technical writer. His will reschedule the imaging appt with [facility] then call us to let us [...] on filedocumented in this encounter Care Teams Tire Setter Relationship Specialty Start Date End Date Yoni Ramírez MD [address] [place] [address] PCP - General 07/05/10 documented as of this encounter
--- OUTSIDE RECORDS SUMMARY | 2024-09-23 11:31 | XMS_ITS | Encounter Summary ---
[place] [address] Care Team Providers Care Television Actor Name Role Phone Yoni Ramírez MD Primary Care Provider [phone] Reason for Referral * Consultation (Routine) - Closed Specialty Diagnoses / Procedures Referred By Contac t Referred To Contact Gastroenterology Diagnoses Malignant neoplasm of prostate Dysuria CT scan 11/06/23 showed thickening in esophagus and possible changes consistent with coltiits, patient reports GERD and occasional diarrhea Isabel Berry APRN [facility] [address] [facility] [address] [place] [address] Referral ID Status Reason Start Date Expiration Date V isits Requested Visits Authorized [id number] Closed Consult, Test & Treat 01/21/2024 01/20/2025 1 1 * Consultation (Routine) - Closed Specialty Diagnoses / Procedures Referred By Contac t Referred To Contact Urology Diagnoses Malignant neoplasm of prostate Dysuria Isabel Berry APRN [facility] [address] Aguila Altman MD [address] [place] [address] [place] [address] Referral ID Status Reason Start Date Expiration Date V isits Requested Visits Authorized [id number] Closed Consult, Test & Treat 01/21/2024 07/19/2024 1 1 Encounter Details Date Type Department Care Team (Late st Contact Info) Description 01/21/2024 1:45 PM EDT Office Visit Hematology/Oncology at [address] [phone] Isabel Berry APRN [facility] [place] [address] Malignant neoplasm of prostate; Dysuria Social History [...] this encounter Progress Notes * Isabel Berry, MATERIAL HANDLING [employer]MENT [employer] - 01/21/2024 1:45 PM EDT Images from the original note were not included. 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 Last lupron was 09/11/23. He has [...] Anxiety Suboxone [Buprenorphine-Naloxone] Hives Lexapro [Escitalopram] Hives [place] odd Medications: Your Medications Accurate as of [...] labwork done and will go up to [facility] after his visit to have them [...] primary care provider. #Financial hardship: Follows with die out worker. 03/13/23 he will have his lupron [...] documented in this encounter Plan of Treatment Scheduled Referrals Name Type Priority Associated Diagnoses Order Schedule Referral to Urology Outpatient Referral Routine Malignant neoplasm of prostate Dysuria Ordered: 01/21/2024 Referral to Gastroenterology Outpatient Referral Routine Malignant neoplasm of prostate Dysuria Ordered: 01/21/2024 documented as of this encounter Visit Diagnoses Diagnosis Malignant neoplasm of prostate Dysuria documented in this encounter Care Teams Television Actor Relationship Specialty Start Date End Date Yoni Ramírez MD [address] [place] [address] PCP - General 07/05/10 documented as of this encounter
--- OUTSIDE RECORDS SUMMARY | 2024-09-23 11:31 | XMS_ITS | Encounter Summary ---
Author Organization [facility] [place] [address] Care Team Providers Care Scenic Arts Supervisor Name Role Phone Yoni Ramírez MD Primary Care Provider Encounter Details Date Type Department Care Team (Late st Contact Info) Description 11/06/2023 Ancillary Procedure Radiology Library at [facility] ([address] [place] [id number] Yoni Ramírez MD [address] [place] [address] Social History Tobacco Use Types Packs/Day Years [...] nuclear medicine (11/06/2023 12:00 AM EDT) Narrative [facility] - 11/07/2023 3:57 AM EDT This exam is auto-finalizing. It's purpose is for storage only. Yoni Ramírez MD G FILM LIBRARY ORD ERABLES Performing Organization Address City/State/[facility] Co de Phone Number [place], [place] documented in this encounter Visit Diagnoses Not on filedocumented in this encounter Care Teams Scenic Arts Supervisor Relationship Specialty Start Date End Date Yoni Ramírez MD [address] [place] [address] PCP - General 07/05/10 documented as of this encounter
--- OUTSIDE RECORDS SUMMARY | 2024-09-23 11:31 | XMS_ITS | Encounter Summary ---
Author Organization [facility] Address [facility] [place] [address] Care Team Providers Care Fish Technologist Name Role Phone Yoni Ramírez MD Primary Care Provider [phone] Encounter Details Date Type Department Care Team (Late st Contact Info) Description 03/31/2024 Abstract Surgical Specialties at [facility] [address] [place] [place] [id number] Shana Armas Social History Tobacco Use Types [...] on filedocumented in this encounter Care Teams Fish Technologist Relationship Specialty Start Date End Date Yoni Ramírez MD [address] [place] [address] PCP - General 07/05/10 documented as of this encounter
--- OUTSIDE RECORDS SUMMARY | 2024-09-23 11:31 | XMS_ITS | Encounter Summary ---
Author Organization [facility] Address [facility] [place] [address] Care Team Providers Care Truck Mechanic Name Role Phone Yoni Ramírez MD Primary Care Provider [phone] Encounter Details Date Type Department Care Team [...] on filedocumented in this encounter Care Teams Truck Mechanic Relationship Specialty Start Date End Date Yoni Ramírez MD [address] [place] [address] PCP - General 07/05/10 documented as of this encounter
--- OUTSIDE RECORDS SUMMARY | 2024-09-23 11:31 | XMS_ITS | Encounter Summary ---
Author Organization [facility] [place] [address] Care Team Providers Care Electromechanical Equipment Assembler Name Role Phone Yoni Ramírez MD Primary Care Provider Encounter Details Date Type Department Care Team (Late st Contact Info) Description 12/03/2023 Telephone Hematology/Oncology at [address] [phone] Theresa Lay Social History Tobacco [...] on filedocumented in this encounter Care Teams Electromechanical Equipment Assembler Relationship Specialty Start Date End Date Yoni Ramírez MD [address] [place] [address] PCP - General 07/05/10 documented as of this encounter
--- OUTSIDE RECORDS SUMMARY | 2024-09-23 11:31 | XMS_ITS | Encounter Summary ---
Author Organization [facility] [place] [address] Care Team Providers Care Group Activities Aide Name Role Phone Yoni Ramírez MD Primary Care Provider [phone] Encounter Details Date Type Department Care Team (Late st Contact Info) Description 07/11/2024 Telephone Hematology/Oncology at [address] [phone] Theresa Lay Social History Tobacco [...] on filedocumented in this encounter Care Teams Group Activities Aide Relationship Specialty Start Date End Date Yoni Ramírez MD [address] [place] [address] PCP - General 07/05/10 documented as of this encounter
--- OUTSIDE RECORDS SUMMARY | 2024-09-23 11:31 | XMS_ITS | Encounter Summary ---
Author Organization [facility] Address [facility] [place] [address] Care Team Providers Care Enterprise Account Manager Name Role Phone Yoni Ramírez MD Primary Care Provider Reason for Visit * Reason Comments Chemotherapy Lupron * Treatment/Therapy Plan Authorization (Routine) - Authorized Specialty Diagnoses / Procedures Referred By Contsahil t Referred To Contact Hematology and Oncology Diagnoses Lupron Procedures INFUSION ROOM Isabel Berry APRN [facility] [place] [address] Stj Hem Onc Infusion [address] [place] [phone] Referral ID Status Reason Start Date Expiration Date V isits Requested Visits Authorized [id number] Authorized 04/15/2024 04/15/2025 99 99 Encounter Details Date Type Department Care Team (Late st Contact Info) Description 04/15/2024 2:30 PM EDT Infusion Hematology Oncology at [address] [phone] Malignant neoplasm of prostate Social [...] Visit Diagnoses Diagnosis Malignant neoplasm of prostate documented in this encounter Administered Medications Inactive [...] Gluteal documented in this encounter Care Teams Enterprise Account Manager Relationship Specialty Start Date End Date Yoni Ramírez MD [address] [address] PCP - General 07/05/10 documented as of this encounter
--- OUTSIDE RECORDS SUMMARY | 2024-09-23 11:31 | XMS_ITS | Encounter Summary ---
Author Organization [facility] Address [facility] [place] [address] Care Team Providers Care Sludge Mill Operator Name Role Phone Yoni Ramírez MD Primary Care Provider Encounter Details Date Type Department Care Team (Late st Contact Info) Description 09/23/2024 11:00 AM EST Office Visit Hematology/Oncology at [address] [phone] Deyvi Ibrahim MD [facility] [place] [address] Isabel Berry APRN [facility] [place] [address] Arrived Social History Tobacco Use Types Packs/Day [...] Sign Reading Time Taken Comments Blood Pressure 139/89 09/23/2024 11:04 AM EST Pulse 95 09/23/2024 11:04 AM EST Temperature 36.5 ??C (97.7 ??F) 09/23/2024 1 1:04 AM EST Respiratory Rate 20 09/23/2024 11:0 4 AM EST Oxygen Saturation 98% 09/23/2024 11: 04 AM EST Inhaled Oxygen Concentration - - Weight 105.1 kg (231 lb 12.8 oz) 2024 11:04 AM EST Height 174.6 cm (5' 8.74) 09/23/2024 1 1:04 AM EST Body Mass Index 34.49 09/23/2024 11:04 AM EST documented in this encounter Plan of Treatment Not on file documented as of this encounter Visit Diagnoses Not on filedocumented in this encounter Care Teams Sludge Mill Operator Relationship Specialty Start Date End Date Yoni Ramírez MD [address] [place] [phone] PCP - General 07/05/10 documented as of this encounter
--- OUTSIDE RECORDS SUMMARY | 2024-09-23 11:31 | XMS_ITS | Encounter Summary ---
Author Organization [facility] [place] [address] Care Team Providers Care Prop Attendant Name Role Phone Yoni Ramírez MD Primary Care Provider [phone] Reason for Visit * Reason Onset Date Comments Labs Only 04/22/2024 Encounter Details Date Type Department Care Team (Late st Contact Info) Description 04/22/2024 Telephone Hematology/Oncology at [address] [phone] Ann Ceron, RN Labs Only [...] 04/22/2024 9:12 AM EDT Labs at [facility] on 04/15/24 PSA 0.01 Total Testosterone: 13 documented in this encounter Plan of Treatment Not on file documented as of this encounter Visit Diagnoses Not on filedocumented in this encounter Care Teams Prop Attendant Relationship Specialty Start Date End Date Yoni Ramírez MD [address] [place] [address] PCP - General 07/05/10 documented as of this encounter
--- OUTSIDE RECORDS SUMMARY | 2024-09-23 11:31 | XMS_ITS | Encounter Summary ---
Author Organization [facility] [place] [address] Care Team Providers Care Janitor Cleaner Name Role Phone Yoni Ramírez MD Primary Care Provider Encounter Details Date Type Department Care Team (Late st Contact Info) Description 11/23/2023 Telephone Hematology/Oncology at [address] [phone] Theresa Lay Social History Tobacco [...] on filedocumented in this encounter Care Teams Janitor Cleaner Relationship Specialty Start Date End Date Yoni Ramírez MD [address] [place] [address] PCP - General 07/05/10 documented as of this encounter
--- OUTSIDE RECORDS SUMMARY | 2024-09-23 11:31 | XMS_ITS | Encounter Summary ---
Author Organization [facility] Address [facility] [place] [address] Care Team Providers Care Machine Puller And Laster Name Role Phone Yoni Ramírez MD Primary Care Provider [phone] Encounter Details Date Type Department Care Team [...] on filedocumented in this encounter Care Teams Machine Puller And Laster Relationship Specialty Start Date End Date Yoni Ramírez MD [address] [place] [address] PCP - General 07/05/10 documented as of this encounter
--- OUTSIDE RECORDS SUMMARY | 2024-09-23 11:31 | XMS_ITS | Encounter Summary ---
Author Organization [facility] [place] [address] Care Team Providers Care Manager Environmental Affairs Name Role Phone Yoni Ramírez MD Primary Care Provider Reason for Visit * Reason Comments Injections * Treatment/Therapy Plan Authorization (Routine) - Authorized Specialty Diagnoses / Procedures Referred By Contac t Referred To Contact Hematology and Oncology Diagnoses Malignant neoplasm of prostate Procedures TC LEUPROLIDE ACETATE 7.5MG, FOR DEPOST SUSPENSION (LUPRON DEPOT) [id number] LUPRON DEPOT Deyvi Ibrahim MD [address] [place] [address] DR HEMATOLOGY [place] [address] Deyvi Ibrahim MD [address] [place] [address] DR HEMATOLOGY [place] [address] Referral ID Status Reason Start Date Expiration Date V isits Requested Visits Authorized [id number] Authorized 08/13/2022 03/12/2024 99 99 Encounter Details Date Type Department Care Team (Late st Contact Info) Description 01/21/2024 2:30 PM EDT Infusion Hematology Oncology at [address] [phone] Malignant neoplasm of prostate Social [...] 22.5 mg, Intramuscular, ONCE, 1 dose, On 01/21/24 at 1515, Last injection site was... leuprolide IM injection site: L Gluteal (06/12/2023 3:59 PM), Routine, This agent is restricted to outpatient use. Is this drug being given as an outpatient? Yes Given 01/21/2024 2:52 PM EDT 22.5 mg Left Gluteal documented in this encounter Care Teams Manager Environmental Affairs Relationship Specialty Start Date End Date Yoni Ramírez MD [address] [place] [phone] PCP - General 07/05/10 documented as of this encounter
--- OUTSIDE RECORDS SUMMARY | 2024-09-23 11:31 | XMS_ITS ---
[place] [address] Care Team Providers Care Wood Barrel Reconditioner Name Role Phone Yoni Ramírez MD Primary Care Provider [phone] Active Problems Problem Noted Date Diagnosed Date [...] Date Treatment Medications Discontinue Reason Plan Provider [facility] HEMONC DEGARELIX NEW PATIENT INDUCTION 12/27/2021 01/31/2022 No medications scheduled. Therapy Complete Deyvi Ibrahim MD Radiation Treatments * No radiation treatments are documented for this patient in [facility]. Treatments may have been administered in another system.
--- OUTSIDE RECORDS SUMMARY | 2024-09-23 11:31 | XMS_ITS | Encounter Summary ---
Author Organization [facility] [place] [address] Care Team Providers Care Delivery Rep Name Role Phone Yoni Ramírez MD Primary Care Provider [phone] Encounter Details Date Type Department Care Team (Late st Contact Info) Description 06/12/2024 11:59 PM EDT Anesthesia [place] [address] Swati Gonzalez MD [facility] [place] [address] Anesthesia Record Procedure Summary Procedure Name Responsible Anesthesiologist Anesthesia Start Time Anesthesia Stop Time EGD, UPPER GI ENDOSCOPY (WRVU 2.09) Events No events on file. Meds * Agents No agents on file. * Blood No blood administrations on file. Lines, Drains, and Airways Type Details Placement Removal Urethral Catheter indwelling triple lumen catheter; 10/20/21 1028 by documented in this encounter Social History Tobacco [...] OR Notes * Anesthesia Preprocedure Evaluation - Swati Gonzalez MD - 06/12/2024 8:15 AM EDT Pre-Anesthesia Evaluation for: Jeff Edouard Kallie a 59 y.o. male. Procedure(s): EGD, UPPER GI ENDOSCOPY (WRVU 2.09) COLONOSCOPY, DIAGNOSTIC (WRVU 3.26) Patient Active Problem List Diagnosis Date Noted ??? Acute diverticulitis 03/31/2024 ??? NJ (acute kidney injury) 03/31/2024 ??? BPH (benign prostatic hyperplasia) 03/31/2024 ??? Chronic pain 03/31/2024 ??? CKD (chronic kidney disease) stage 3, GFR 30-59 ml/min 03/31/2024 ??? CKD (chronic kidney disease) 03/31/2024 ??? Enlarged prostate 03/31/2024 ??? H/O parathyroidectomy 03/31/2024 ??? Hx of hyperlipidemia 03/31/2024 ??? Hyponatremia 03/31/2024 ??? Hypoxia 03/31/2024 ??? Lacunar infarction 03/31/2024 ??? Low back pain 03/31/2024 ??? Panic attack 03/31/2024 ??? Pneumonia 03/31/2024 ??? Prediabetes 03/31/2024 ??? Supraventricular tachycardia 03/31/2024 ??? Venous insufficiency (chronic) (peripheral) 03/31/2024 ??? Depression 07/18/2022 ??? Chondromalacia of right patella 07/18/2022 ??? Hyperlipidemia 07/18/2022 ??? Nicotine dependence 07/18/2022 ??? Obstruction of bile duct 07/18/2022 ??? Retention of urine 07/18/2022 ??? Ulcer of esophagus 07/18/2022 ??? Benign neoplasm of rectum 07/18/2022 ??? Malignant neoplasm of prostate 11/02/2021 ??? Hyperparathyroidism 09/04/2017 ??? Chronic prescription opiate [...] 1.57) performed by Karishma Maurer MD at [facility] MAIN OR ??? PRO DILATE URETHRAL STRIX/VESICAL NCK DILAT MALE ANES N/A 10/20/2021 URETHRAL DILATION STRICTURE, MALE; GENERAL OR SPINAL ANESTHESIA (WRVU 1.28) performed by Ino Enamorado MD at [facility] MAIN OR ??? PRO ERCP,DIAGNOSTIC 08/22/2013 ERCP performed by Duane Garcia MD at [facility] ENDOSCOPY ??? PRO EXPLORE PARATHYROID GLANDS N/A 09/04/2017 PARATHYROIDECTOMY OR EXPLORATION OF PARATHYROID(S) (WRVU 15.6) performed by Karishma Maurer MD at [facility] MAIN OR ??? PRO LASER VAPORIZATION SURGERY PROSTATE, COMPLETE N/A 10/20/2021 CYSTO, LASER TURP (WRVU 12.15) performed by Ino Enamorado MD at [facility] MAIN OR ??? PRO TRANSURETHRAL RESEC BLADDER NECK N/A 10/20/2021 CYSTO, TRANSURETHRAL RESECTION BLADDER NECK (WRVU 8.14) performed by Ino Enamorado MD at [facility] MAIN OR ??? TONSILLECTOMY Social History Tobacco Use ??? Smoking status: Former Current packs/day: 0.00 Average packs/day: 1 pack/day for 25.0 years (25.0 ttl pk-yrs) Types: Cigarettes Start date: 02/10/1987 Quit date: 02/11/2012 Years since quittin.3 ??? Smokeless tobacco: Never Substance Use Topics ??? Alcohol use: Not Currently Social History Substance and Sexual Activity Drug Use Yes ??? Types: Marijuana Comment: 2 hits a day Allergies Allergen Reactions ??? Ephedrine Anxiety ??? Diphenhydramine Other Reaction(s): hyperactivity ??? Lexapro [Escitalopram] Hives [place] odd, Moderate nausea ??? Suboxone [Buprenorphine-Naloxone] Hives ??? Trintellix [Vortioxetine] Medications: MAR and/or home medications have been reviewed. Physical Exam: Preprocedure Vitals Current as of 06/12/24 0815 No BP, pulse, respiration, SpO2, or temperature recorded. Height: Weight: BMI: IBW: Anesthesia Physical Exam Last Filed Perioperative Cognitive Screening None Anesthesia Plan: ASA 3 MAC, with a(n) intravenous induction 59 yo male here for EGD and colonoscopy Med hx sig: prostate cancer, HTN, chronic pain, smokes marijuana daily, chronic opiate use, CKD3 MAC; PIV Informed Consent: Anesthetic plan and risks discussed with patient. Plan discussed with SURVEY DIRECTOR. Anesthesia Screening documented in this encounter Plan of Treatment Not on file documented as of this encounter Visit Diagnoses Not on filedocumented in this encounter Care Teams Delivery Rep Relationship Specialty Start Date End Date Yoni Ramírez MD [address] [place] [phone] PCP - General 07/05/10 documented as of this encounter
--- OUTSIDE RECORDS SUMMARY | 2024-09-23 11:31 | XMS_ITS | Encounter Summary ---
Author Organization [facility] [place] [address] Care Team Providers Care Contracts Attorney Name Role Phone Yoni Ramírez MD Primary Care Provider [phone] Encounter Details Date Type Department Care Team (Late st Contact Info) Description 11/27/2023 Telephone Hematology/Oncology at [address] [phone] Theresa Lay Social History Tobacco [...] on filedocumented in this encounter Care Teams Contracts Attorney Relationship Specialty Start Date End Date Yoni Ramírez MD [address] [place] [address] PCP - General 07/05/10 documented as of this encounter
--- OUTSIDE RECORDS SUMMARY | 2024-09-23 11:31 | XMS_ITS | Encounter Summary ---
Author Organization [facility] [place] [address] Care Team Providers Care Cdl Flatbed Truck Driver Name Role Phone Yoni Ramírez MD Primary Care Provider [phone] Encounter Details Date Type Department Care Team (Late st Contact Info) Description 08/19/2024 Telephone Hematology/Oncology at [address] [phone] Theresa Lay Social History Tobacco [...] * Telephone Encounter - Theresa Lay - 08/19/2024 1:43 PM EST I called Jeff, his and the alt number and had to leave a message Asking him if he will be coming in today documented in this encounter Plan of Treatment Not on file documented as of this encounter Visit Diagnoses Not on filedocumented in this encounter Care Teams Cdl Flatbed Truck Driver Relationship Specialty Start Date End Date Yoni Ramírez MD [address] [place] [address] PCP - General 07/05/10 documented as of this encounter
--- OUTSIDE RECORDS SUMMARY | 2024-09-23 11:31 | XMS_ITS | Encounter Summary ---
Author Organization [facility] Address [facility] [place] [address] Care Team Providers Care Baker Chef Name Role Phone Yoni Ramírez MD Primary Care Provider [phone] Encounter Details Date Type Department Care Team [...] on filedocumented in this encounter Care Teams Baker Chef Relationship Specialty Start Date End Date Yoni Ramírez MD [address] [place] [phone] PCP - General 07/05/10 documented as of this encounter
--- OUTSIDE RECORDS SUMMARY | 2024-09-23 11:31 | XMS_ITS | Encounter Summary ---
Author Organization [facility] [place] [address] Care Team Providers Care Service Center Specialist Name Role Phone Yoni Ramírez MD Primary Care Provider Encounter Details Date Type Department Care Team (Late st Contact Info) Description 01/15/2024 Telephone Hematology/Oncology at [address] [phone] Theresa Lay Social History Tobacco [...] on filedocumented in this encounter Care Teams Service Center Specialist Relationship Specialty Start Date End Date Yoni Ramírez MD [address] [place] [phone] PCP - General 07/05/10 documented as of this encounter
--- OUTSIDE RECORDS SUMMARY | 2024-09-23 11:31 | XMS_ITS | Encounter Summary ---
Author Organization [facility] [place] [address] Care Team Providers Care Black Top Paver Operator Name Role Phone Yoni Ramírez MD Primary Care Provider [phone] Encounter Details Date Type Department Care Team (Late st Contact Info) Description 09/13/2023 Telephone Hematology [place] [phone] Victorina Dallas Social History Tobacco Use Types Packs/Day Years [...] 9:59 AM EST Procedure Prior Authorization Procedure/Cpt: 54428 Pet scan, 38627,78[address] Ct c/a/p Rationale for request: C61, C77.5 Health plan: [facility] advantage medicare Authorizing access representative name: Call to health plan on: 09/13/23 Health plan decision: No PA is required Call Ref #: [id number] Quantity approved: Authorization number: Start date: End date: Facility: [facility] Per Sd fee schedule ([email or web address]) NO PA REQUIRED documented in this encounter Plan of Treatment Not on file documented as of this encounter Visit Diagnoses Not on filedocumented in this encounter Care Teams Black Top Paver Operator Relationship Specialty Start Date End Date Yoni Ramírez MD [address] [place] [address] PCP - General 07/05/10 documented as of this encounter
--- OUTSIDE RECORDS SUMMARY | 2024-09-23 11:31 | XMS_ITS | Clinical Summary ---
Author Organization [facility] Address [facility] [place] [address] Care Team Providers Care Boring Machine Operator Production Name Role Phone Yoni Ramírez MD Primary Care Provider [phone] Allergies Active Allergy Reactions Criticality Noted Date Comments Diphenhydramine Low 04/27/2021 Other Reaction(s): hyperactivity Ephedrine Anxiety Medium 08/22/2013 Escitalopram Hives Low 07/24/2013 [place] odd, Moderate nausea Buprenorphine-Naloxone Hives Low 10/20/2021 [...] needed. A ctive naloxone (Narcan) 4 mg/actuation [place], Non-Aerosol Narcan 4 mg/actuation nasal spray Take [...] Encounters Date Type Department Care Team Description 09/23/2024 11:30 AM EST Infusion Hematology Oncology at [address] [phone] Arrived 09/23/2024 11:00 AM EST Office Visit Hematology/Oncology at [address] [phone] Deyvi Ibrahim MD Burns, Kimberly A, APRN Arrived 09/23/2024 Travel 09/15/2024 Telephone Hematology/Oncology at [address] [phone] Theresa Lay 08/19/2024 Telephone Hematology/Oncology at [address] [address] Theresa Lay 07/11/2024 Telephone Hematology/Oncology at [address] [phone] Theresa Lay Silke 06/12/2024 11:59 PM EDT Anesthesia [place] [address] Swati Gonzalez MD from Last 3 Months Immunizations Name Administration Dates Next Due Covid-19 Monovalent (Moderna Spikevax) 12yrs+ (2090-6206) 06/19/2021,12/15/2020,11/17/2020 DT Pediatric 07/24/2019 Influenza Quadrivalent, Pres [...] Mass Index 34.49 09/23/2024 11:04 AM EST Plan of Treatment Health Maintenance Due Date Last Done Comments CT Colonography 1963 Colonoscopy 1963 Colorectal Cancer Screening 1963 FIT DNA 1963 FIT 1963 Sigmoidoscopy (10 year) with FIT yearly 1963 Sigmoidoscopy 1963 HIV screen 1981 Pneumoccocal Vaccine: 50+ (2 of 2 - PCV) 09/25/2013 09/25/2012 Advance Directive 2018 Pre-DM monitoring (HgbA1C or [...] Procedure Name Priority Date/Time Associated Diagnosis Comments LAB SCAN 08/12/2024 12:00 AM EST LAB SCAN 07/31/2024 12:00 AM EST COMPREHENSIVE METABOLIC PANEL Routine 12/19/2021 11:12 AM EDT Malignant neoplasm of prostate HCV QUANT Routine 07/24/2013 3:34 PM EST Elevated liver function tests from Last 3 Months or Most Recently Relevant to Health Maintenance Results * Scan Doc: Lab (08/12/2024 12:00 AM EST) Only the most recent of2 resultswithin the time period is included. Narrative 08/12/2024 12:00 AM EST Ordered by an unspecified provider. Scanning Provider MEDIA MGR SCAN EXT O RDR/RSLT * (ABNORMAL) Comprehensive metabolic panel (non-fasting) (12/19/2021 11:12 AM EDT) Glucose 136 65 - 199 mg/dL [facility] Comment:Diabetes: >=200 mg/d L plus symptoms Blood Urea Nitrogen 31(H) 10 - 20 mg/dL [facility] Creatinine 1.26 0.80 - 1.50 mg/dL [facility] Sodium 137 135 - 145 mmol/L [facility] Potassium 4.3 3.5 - 5.0 mmol/L [facility] Comment: Please note: ??Patients with WBC >100,000 may have falsely elevated Potassium levels. ??For accurate Potassium quantification in these patients send serum separator tube (gold top) for subsequent determinations. ??Contact the Clinical Chemistry Laboratory if there are any questions. Chloride 97(L) 98 - 107 mmol/L [facility] Carbon Dioxide 24 22 - 31 mmol/L [facility] Anion Gap 16(H) 5 - 15 mmol/L [facility] Calcium 9.1 8.5 - 10.5 mg/dL [facility] Protein, Total 7.2 6.1 - 8.0 g/dL [facility] Albumin 4.8 3.2 - 5.2 g/dL [facility] Aspartate Aminotransferase 14 0 - 39 unit/L [facility] Alanine Aminotransferase 11 0 - 55 unit/L [facility] Alkaline Phosphatase 84 40 - 130 unit/L [facility] Bilirubin, Total 1.0 0.2 - 1.3 mg/dL [facility] Est Glomerular Filtration Rate 62 >=60 mL/min/1. 73 m?? [facility] Comment: This patient? s estimated [...] In Lab Deyvi Ibrahim MD CHEMISTRY ORDERABLES [facility] [place] [address] * HCV Quant Rosangela (07/24/2013 3:34 PM EST) HCV Viral Load <43 IU/mL [facility] HCV Viral Load Result: < 43 [...] This assay is being performed in the [facility] Molecular Pathology Laboratory. Philippe Nagel, Ph.D. 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 Care Teams Boring Machine Operator Production Relationship Specialty Start Date End Date Yoni Ramírez MD [address] [place] [phone] PCP - General 07/05/10
--- OUTSIDE RECORDS SUMMARY | 2024-09-23 11:31 | XMS_ITS | Encounter Summary ---
Author Organization [facility] [place] [address] Care Team Providers Care Huller Operator Name Role Phone Yoni Ramírez MD Primary Care Provider [phone] Encounter Details Date Type Department Care Team (Late st Contact Info) Description 09/15/2024 Telephone Hematology/Oncology at [address] [phone] Theresa Lay Social History Tobacco [...] encounter Miscellaneous Notes * Telephone Encounter - Theersa Lay - 09/15/2024 4:02 PM EST I called jeff to let him know that his appt has been changed to 09/23 and needing labs, I will mailout a new appt letter documented in this encounter Plan of Treatment Not on file documented as of this encounter Visit Diagnoses Not on filedocumented in this encounter Care Teams Huller Operator Relationship Specialty Start Date End Date Yoni Ramírez MD [address] [place] [address] PCP - General 07/05/10 documented as of this encounter
--- OUTSIDE RECORDS SUMMARY | 2024-09-23 11:31 | XMS_ITS | Encounter Summary ---
Author Organization [facility] [place] [address] Care Team Providers Care Senior Analyst Developer Name Role Phone Yoni Ramírez MD Primary Care Provider Encounter Details Date Type Department Care Team (Late st Contact Info) Description 04/15/2024 2:00 PM EDT Office Visit Hematology/Oncology at [address] [phone] Rosie Terry APRN [facility] [place] [address] Malignant neoplasm of prostate; Dysuria; Androgen deprivation [...] were not included. 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 His treatment history is below. Interval [...] Diphenhydramine Other Reaction(s): hyperactivity Lexapro [Escitalopram] Hives [place] odd, Moderate nausea Suboxone [Buprenorphine-Naloxone] Hives Trintellix [...] transurethral resection: Prostatic adenocarcinoma, grade group 4, [place] grade 4+4, involving 100% of the submitted [...] and Plan: Diagnosis: Prostatic adenocarcinoma, grade 4, [place] 4+4, metastatic to regional lymph nodes Treatment: [...] labwork done and will go up to [facility] after his visit to have them done. [...] primary care provider. 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 03/13/23 he will have his lupron [...] in this encounter Plan of Treatment Scheduled Orders Name Type Priority Associated Diagnoses [...] for 4 Occurrences starting 04/16/2024 until 04/16/2025 documented as of this encounter Visit Diagnoses Diagnosis Malignant neoplasm of prostate Dysuria Androgen deprivation therapy Encounter for therapeutic drug monitoring documented in this encounter Care Teams Senior Analyst Developer Relationship Specialty Start Date End Date Yoni Ramírez MD [address] [place] [address] PCP - General 07/05/10 documented as of this encounter
--- OUTSIDE RECORDS SUMMARY | 2024-09-23 11:31 | XMS_ITS | Encounter Summary ---
Author Organization [facility] Address [facility] [place] [address] Care Team Providers Care Underwear Welter Name Role Phone Yoni Ramírez MD Primary Care Provider [phone] Reason for Visit * Reason Onset Date Comments Colonoscopy 04/11/2024 Screening questi ons complete Encounter Details Date Type Department Care Team ([facility] st Contact Info) Description 04/11/2024 Telephone Surgical Specialties at [facility] [place] [phone] Carmela Sandhu Colonoscopy (Screening questions complete ) [...] a candidate to have their procedure at [facility] due to comorbidities. It is safer for the patients procedure to be performed at a tertiary care center such as [facility] that has critical care and otherresources that our [facility] does not have. Patient and referring [...] artery disease, severe aortic disease, stent placement, OR (heart attack) pacemaker or defibrillator? Yes, Last Cardiology Office Visit Last EKG 03/26/2014(Send to anesthesia for review) [facility] cardiology about 3 yrs ago 6. [...] Colonoscopy and Endoscopy before? Yes: Date 06/20/2013- [facility] If yes, did you have any problems [...] on filedocumented in this encounter Care Teams Underwear Welter Relationship Specialty Start Date End Date Yoni Ramírez MD [address] [place] [address] PCP - General 07/05/10 documented as of this encounter
--- OUTSIDE RECORDS SUMMARY | 2024-09-23 11:31 | XMS_ITS | Encounter Summary ---
Author Organization [facility] Address [facility] [place] [address] Care Team Providers Care Network Programmer Name Role Phone Yoni Ramírez MD Primary Care Provider [phone] Encounter Details Date Type Department Care Team (Late st Contact Info) Description 03/27/2024 Telephone Surgical Specialties at [facility] [address] [facility] [place] [address] aCrmela Sandhu Social History Tobacco Use Types Packs/Day [...] on filedocumented in this encounter Care Teams Network Programmer Relationship Specialty Start Date End Date Yoni Ramírez MD [address] [place] [address] PCP - General 07/05/10 documented as of this encounter
--- OUTSIDE RECORDS SUMMARY | 2024-09-23 11:31 | XMS_ITS | Encounter Summary ---
Author Organization [facility] Address [facility] [place] [address] Care Team Providers Care Smocking Machine Operator Name Role Phone Yoni Ramírez MD Primary Care Provider Reason for Visit * Consultation (Routine) - Closed Specialty Diagnoses / Procedures Referred By Contac t Referred To Contact Gastroenterology Diagnoses Malignant neoplasm of prostate Dysuria CT scan 11/06/23 showed thickening in esophagus and possible changes consistent with coltiits, patient reports GERD and occasional diarrhea Isabel Berry APRN [facility] [place] [address] [facility] [place] [address] [place] [address] Referral ID Status Reason Start Date Expiration Date V isits Requested Visits Authorized [id number] Closed Consult, Test & Treat 01/21/2024 01/20/2025 1 1 Encounter Details Date Type Department Care Team (Latest Contact Info) Description 03/11/2024 2:00 PM EDT TH Visit (TeleHealth) [place] [address] Danelle Faustin PA [facility] [place] [address] of the abdomen; [...] 3 months at your convenience - For [facility] procedure scheduling please call [phone]. - If you choose to do this [...] is a small proportion of patients but oil heaterman symptoms are expected in most patients. Ultimately [...] cyclic vomiting syndrome in adults by the [place] Neurogastroenterology and Motility Society and the Cyclic Vomiting Syndrome Association. Neruogastroenterology & Motility. 2019;31(Suppl. 2):w47081 documented in this encounter Progress Notes * [...] daily as needed. naloxone (Narcan) 4 mg/actuation [place], Non-Aerosol Narcan 4 mg/actuation nasal spray Take [...] Diphenhydramine Other Reaction(s): hyperactivity Lexapro [Escitalopram] Hives [place] odd family history includes Coronary Artery Disease [...] FERRITIN Vitamin Studies: No results found for: [id number], VITAMIND A1c:No results found for: HA1C Thyroid: Lab Results Component Value Date TSH 1.08 05/21/2017 Celiac Studies: No results found for: TTGIGAAB, TTGIGAMAYO, TTGIGG, IGA, RONI, CRP Stool Studies: No results found for: FECALFATQUAL, CALPROTECTIN, STOOLCX, OVAPARA, HPYLORISTLAG, HPSA, GIARDIA, CAMPYAG, CDIFFTOXIN, CDIFFAG, CDIFFTOX, CDIFFPCRI, CRSPAG, SHIGATOXIN [facility] Radiographic studies: No results found. [facility] Endoscopic/GI Studies: N/A OSH Studies: [...] neoplasms, colon Cyclic vomiting syndrome Persistent vomiting documented in this encounter Care Teams Smocking Machine Operator Relationship Specialty Start Date End Date Yoni Ramírez MD [address] [place] [address] PCP - General 07/05/10 documented as of this encounter
--- OUTSIDE RECORDS SUMMARY | 2024-09-23 11:32 | XMS_ITS | Encounter Summary ---
Author Organization [facility] [place] [address] Care Team Providers Care Wind Turbine Machinist Name Role Phone Yoni Ramírez MD Primary Care Provider Encounter Details Date Type Department Care Team (Late st Contact Info) Description 07/20/2022 2:30 PM EST Office Visit Radiation Oncology at [address] [phone] Yariel Ernandez MD [address] [place] [address] DR RADIATION ONCOLOGY [place], [place] [id number] Malignant neoplasm of prostate Social History Tobacco [...] from the original note were not included. [facility] Medicine Radiation Oncology Radiation Oncology On-treatment [...] Treatment Details Intent: Definitive (Curative) Concurrent Therapy: [facility] 12/27/2021 01/31/2022 04/25/2022 degarelix (Firmagon) [...] to bed or chair Medications Medications 07/20/22 4776 Medication Sig Taking? amitriptyline (Elavil) 10 mg [...] as needed. Yes naloxone (Narcan) 4 mg/actuation [place], Non-Aerosol Narcan 4 mg/actuation nasal spray Take [...] placed in this encounter. ??? National Cancer [place] (NCI) Comprehensive Cancer Center ??? [place] [employer] Commission on Cancer (ACS [place]) Accredited Cancer Program ??? [place] [employer] (ACR) Accredited Radiation Oncology Program documented in this encounter Plan of Treatment Not on file documented as of this encounter Visit Diagnoses Diagnosis Malignant neoplasm of prostate documented in this encounter Care Teams Wind Turbine Machinist Relationship Specialty Start Date End Date Yoni Ramírez MD [address] [place] [address] PCP - General 07/05/10 documented as of this encounter
--- OUTSIDE RECORDS SUMMARY | 2024-09-23 11:32 | XMS_ITS | Encounter Summary ---
Author Organization [facility] Address [facility] [place]ida [place] [address] Care Team Providers Care Mri Ct Tech Name Role Phone Yoni Ramírez MD Primary Care Provider [phone] Encounter Details Date Type Department Care Team [...] on filedocumented in this encounter Care Teams Mri Ct Tech Relationship Specialty Start Date End Date Yoni Ramírez MD [address] [place] [address] PCP - General 07/05/10 documented as of this encounter
--- OUTSIDE RECORDS SUMMARY | 2024-09-23 11:32 | XMS_ITS | Encounter Summary ---
Author Organization [facility] Address [facility] [place] [address] Care Team Providers Care Commercial Real Estate Associate Name Role Phone Yoni Ramírez MD Primary Care Provider Reason for Visit * Reason Onset Date Comments Medication Refill 01/04/2023 Encounter Details Date Type Department Care Team (Late st Contact Info) Description 01/04/2023 Refill Hematology/Oncology at [address] [phone] Deyvi Ibrahim MD [facility] HEMAT[place] [address] Malignant neoplasm of prostate; Androgen deprivation therapy [...] Sent: 01/04/2023 ?? 2:00 PM EDT To: [facility] Rad Onc Nurse Jeff's Lianna called looking for his refill on his ??venlafaxine XR (Effexor-XR) 37.5 mg Capsule, Sust. Release 24 hr, Please send to the [facility] in [facility] Best call back number [phone] Received prescription refill request via above request. Review of chart suggests that this is an appropriate refill request. Prescription pended and ferno Dr. Ibrahim for review and approval, if agreed. documented in this encounter Plan of Treatment Not on file documented as of this encounter Visit Diagnoses Diagnosis Malignant neoplasm of prostate Androgen deprivation therapy Encounter for therapeutic drug monitoring documented in this encounter Care Teams Commercial Real Estate Associate Relationship Specialty Start Date End Date Yoni Ramírez MD [address] [place] [phone] PCP - General 07/05/10 documented as of this encounter
--- OUTSIDE RECORDS SUMMARY | 2024-09-23 11:32 | XMS_ITS | Encounter Summary ---
Author Organization [facility] [place] [address] Care Team Providers Care Streetcar Dispatcher Name Role Phone Yoni Ramírez MD Primary Care Provider [phone] Reason for Visit * Reason Onset Date Comments Reminder Appointment 07/19/2022 For labs Encounter Details Date Type Department Care Team (Late st Contact Info) Description 07/19/2022 Telephone Hematology/Oncology at [address] [phone] Manav Dexter, RN Reminder Appointment [...] on filedocumented in this encounter Care Teams Streetcar Dispatcher Relationship Specialty Start Date End Date Yoni Ramírez MD [address] [place] [phone] PCP - General 07/05/10 documented as of this encounter
--- OUTSIDE RECORDS SUMMARY | 2024-09-23 11:32 | XMS_ITS | Encounter Summary ---
Author Organization [facility] [place] [address] Care Team Providers Care Alternative Dispute Resolution Mediator Name Role Phone Yoni Ramírez MD Primary Care Provider [phone] Reason for Visit * Reason Onset Date Comments Medication Refill 05/09/2023 venlafaxine Encounter Details Date Type Department Care Team (Late st Contact Info) Description 05/09/2023 Refill Hematology/Oncology at [address] [phone] Jojo Williamson, AUTO PARTS DELIVERY DRIVER Malignant neoplasm of prostate; Androgen deprivation therapy [...] AM EDT Request for venlafaxine refill to [facility] in [facility] sent to provider to review and sign. documented in this encounter Plan of Treatment Not on file documented as of this encounter Visit Diagnoses Diagnosis Malignant neoplasm of prostate Androgen deprivation therapy Encounter for therapeutic drug monitoring documented in this encounter Care Teams Alternative Dispute Resolution Mediator Relationship Specialty Start Date End Date Yoni Ramírez MD [address] [place] [address] PCP - General 07/05/10 documented as of this encounter
--- OUTSIDE RECORDS SUMMARY | 2024-09-23 11:32 | XMS_ITS | Encounter Summary ---
Author Organization [facility] Address [facility] [place] [address] Care Team Providers Care Health Analyst Name Role Phone Yoni Ramírez MD Primary Care Provider [phone] Encounter Details Date Type Department Care Team [...] filedocumented in this encounter Care Teams Health Analyst Relationship Specialty Start Date End Date Yoni Ramírez MD [address] [place] [address] PCP - General 07/05/10 documented as of this encounter
--- OUTSIDE RECORDS SUMMARY | 2024-09-23 11:32 | XMS_ITS | Encounter Summary ---
Author Organization [facility] Address [facility] [place] [address] Care Team Providers Care Receiving Inspector Name Role Phone Yoni Ramírez MD Primary Care Provider Encounter Details Date Type Department Care Team (Late st Contact Info) Description 09/11/2023 2:30 PM EST Office Visit Hematology/Oncology at [address] [phone] Deyvi Ibrahim MD [facility] [place] [address] Isabel Berry APRN [facility] [place] [address] Malignant neoplasm of prostate; Prostate cancer metastatic [...] were not included. 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 [...] primary care provider. #Financial hardship: Follows with personal support worker. 03/13/23 he will have his lupron [...] Prostate cancer metastatic to intrapelvic lymph node documented in this encounter Care Teams Receiving Inspector Relationship Specialty Start Date End Date Yoni Ramírez MD [address] [place] [phone] PCP - General 07/05/10 documented as of this encounter
--- OUTSIDE RECORDS SUMMARY | 2024-09-23 11:32 | XMS_ITS | Encounter Summary ---
Author Organization [facility] Address [facility] [place] [address] Care Team Providers Care Parts Room Clerk Name Role Phone Yoni Ramríez MD Primary Care Provider [phone] Encounter Details Date Type Department Care Team [...] on filedocumented in this encounter Care Teams Parts Room Clerk Relationship Specialty Start Date End Date Yoni Ramírez MD [address] [place] [address] PCP - General 07/05/10 documented as of this encounter
--- OUTSIDE RECORDS SUMMARY | 2024-09-23 11:32 | XMS_ITS | Encounter Summary ---
Author Organization [facility] [place] [address] Care Team Providers Care Nuclear Chemistry Technician Name Role Phone Yoni Ramírez MD Primary Care Provider [phone] Encounter Details Date Type Department Care Team (Late st Contact Info) Description 09/12/2022 Notes Only Radiation Oncology at [address] [phone] Makenna Sorto, [facility] CARE MANAGEMENT Social History Tobacco [...] more RT treatments. They have income from [employer] income and is now working. Assisted them with 1/$25 gas card from the [employer]. Financial resources Transportation resources documented in this encounter Plan of Treatment Not on file documented as of this encounter Visit Diagnoses Not on filedocumented in this encounter Care Teams Nuclear Chemistry Technician Relationship Specialty Start Date End Date Yoni Ramírez MD [address] [place] [address] PCP - General 07/05/10 documented as of this encounter
--- OUTSIDE RECORDS SUMMARY | 2024-09-23 11:32 | XMS_ITS | Encounter Summary ---
Author Organization [facility] [place] [address] Care Team Providers Care Nut Steamer Name Role Phone Yoni Ramírez MD Primary Care Provider Encounter Details Date Type Department Care Team (Late st Contact Info) Description 05/29/2023 Telephone Hematology/Oncology at [address] [phone] Theresa Lay Social History Tobacco [...] on filedocumented in this encounter Care Teams Nut Steamer Relationship Specialty Start Date End Date Yoni Ramírez MD [address] [place] [address] PCP - General 07/05/10 documented as of this encounter
--- OUTSIDE RECORDS SUMMARY | 2024-09-23 11:32 | XMS_ITS | Encounter Summary ---
Author Organization [facility] Address [facility] [place] [address] Care Team Providers Care Manager Decision Support Name Role Phone Yoni Ramírez MD Primary Care Provider [phone] Encounter Details Date Type Department Care Team [...] filedocumented in this encounter Care Teams Manager Decision Support Relationship Specialty Start Date End Date Yoni Ramírez MD [address] [place] [address] PCP - General 07/05/10 documented as of this encounter
--- OUTSIDE RECORDS SUMMARY | 2024-09-23 11:32 | XMS_ITS | Encounter Summary ---
Author Organization [facility] Address [facility] [place] [address] Care Team Providers Care County Home Demonstration Agent Name Role Phone Yoni Ramírez MD Primary Care Provider [phone] Encounter Details Date Type Department Care Team (Late st Contact Info) Description 09/26/2022 Orders Only [place] [address] Shea Oneill APRN [facility] [place] [address] Prostate cancer (Primary Dx) Social History Tobacco [...] Prostate cancer- Primary Malignant neoplasm of prostate documented in this encounter Care Teams County Home Demonstration Agent Relationship Specialty Start Date End Date Yoni Ramírez MD [address] [place] [address] PCP - General 07/05/10 documented as of this encounter
--- OUTSIDE RECORDS SUMMARY | 2024-09-23 11:32 | XMS_ITS | Encounter Summary ---
Author Organization [facility] [place] [address] Care Team Providers Care Funeral Counselor Name Role Phone Yoni Ramírez MD Primary Care Provider [phone] Encounter Details Date Type Department Care Team (Late st Contact Info) Description 08/04/2022 2:30 PM EST Office Visit Radiation Oncology at [address] [phone] Jerome Sim MD [facility] [place] [address] Malignant neoplasm of prostate Social History Tobacco [...] Treatment Details Intent: Definitive (Curative) [facility] 12/27/2021 01/31/2022 04/25/2022 degarelix (Firmagon) [...] to bed or chair Medications Medications 07/20/22 0526 Medication Sig Taking? amitriptyline (Elavil) 10 mg [...] daily as needed. naloxone (Narcan) 4 mg/actuation [place], Non-Aerosol Narcan 4 mg/actuation nasal spray Take [...] Yariel Ernandez M.D., M.S.) ??? National Cancer [place] (NCI) Comprehensive Cancer Center ??? [employer] Commission on Cancer (ACS Benjamin) Accredited Cancer Program ??? [employer] (ACR) Accredited Radiation Oncology Program documented in this encounter Plan of Treatment Not on file documented as of this encounter Visit Diagnoses Diagnosis Malignant neoplasm of prostate documented in this encounter Care Teams Funeral Counselor Relationship Specialty Start Date End Date Yoni Ramírez MD [address] [place] [address] PCP - General 07/05/10 documented as of this encounter
--- OUTSIDE RECORDS SUMMARY | 2024-09-23 11:32 | XMS_ITS | Encounter Summary ---
Author Organization [facility] [place] [address] Care Team Providers Care Slice Plug Cutter Operator Helper Name Role Phone Yoni Ramírez MD Primary Care Provider Reason for Visit * Reason Comments Chemotherapy * Treatment/Therapy Plan Authorization (Routine) - Authorized Specialty Diagnoses / Procedures Referred By Contac t Referred To Contact Hematology and Oncology Diagnoses Malignant neoplasm of prostate Procedures TC LEUPROLIDE ACETATE 7.5MG, FOR DEPOST SUSPENSION (LUPRON DEPOT) [id number] LUPRON DEPOT Deyvi Ibrahim MD [address] [place] [address] DR HEMATOLOGY [place] [address] Deyvi Ibrahim MD [address] [place] [address] DR HEMATOLOGY [place] [address] Referral ID Status Reason Start Date Expiration Date V isits Requested Visits Authorized [id number] Authorized 08/13/2022 03/12/2024 99 99 Encounter Details Date Type Department Care Team (Late st Contact Info) Description 06/12/2023 3:30 PM EDT Infusion Hematology Oncology at [address] [phone] Malignant neoplasm of prostate Social [...] 22.5 mg, Intramuscular, ONCE, 1 dose, On Sun06/12/23 at 1615, Last injection site was... leuprolide IM injection site: L Gluteal (12/19/2022 3:10 PM) , Routine, This agent is restricted to outpatient use. Is this drug being given as an outpatient? Yes Given 06/12/2023 3:59 PM EDT 22.5 mg Le ft Gluteal documented in this encounter Care Teams Slice Plug Cutter Operator Helper Relationship Specialty Start Date End Date Yoni Ramírez MD [address] [place] [address] PCP - General 07/05/10 documented as of this encounter
--- OUTSIDE RECORDS SUMMARY | 2024-09-23 11:32 | XMS_ITS | Encounter Summary ---
Author Organization [facility] [place] [address] Care Team Providers Care Enlisted Aircrew/Aerial Observer/Gunner Name Role Phone Yoni Ramírez MD Primary Care Provider Encounter Details Date Type Department Care Team (Late st Contact Info) Description 09/21/2022 2:00 PM EST Notes Only Radiation Oncology at [address] [phone] Yariel Ernandez MD [address] [place] [address] DR RADIATION ONCOLOGY [place], [place] [id number] Social History Tobacco Use Types Packs/Day Years [...] on filedocumented in this encounter Care Teams Enlisted Aircrew/Aerial Observer/Gunner Relationship Specialty Start Date End Date Yoni Ramírez MD [address] [place] [address] PCP - General 07/05/10 documented as of this encounter
--- OUTSIDE RECORDS SUMMARY | 2024-09-23 11:32 | XMS_ITS | Encounter Summary ---
Author Organization [facility] [place] [address] Care Team Providers Care Publications Writer Name Role Phone Yoni Ramírez MD Primary Care Provider [phone] Reason for Visit * Reason Onset Date Comments Follow-up 04/13/2023 Encounter Details Date Type Department Care Team (Late st Contact Info) Description 04/13/2023 Telephone Hematology/Oncology at [address] [phone] Earlene Casas RN Follow-up Social [...] on filedocumented in this encounter Care Teams Publications Writer Relationship Specialty Start Date End Date Yoni Ramírez MD [address] [place] [address] PCP - General 07/05/10 documented as of this encounter
--- OUTSIDE RECORDS SUMMARY | 2024-09-23 11:32 | XMS_ITS | Encounter Summary ---
Author Organization [facility] [place] [address] Care Team Providers Care Engraving Supervisor Name Role Phone Yoni Ramírez MD Primary Care Provider [phone] Reason for Visit * Reason Onset Date Comments Follow-up 04/10/2023 Scan results Encounter Details Date Type Department Care Team (Late st Contact Info) Description 04/10/2023 Telephone Hematology/Oncology at [address] [phone] Earlene Casas, TODD Follow-up (Scan [...] on filedocumented in this encounter Care Teams Engraving Supervisor Relationship Specialty Start Date End Date Yoni Ramírez MD [address] [place] [address] PCP - General 07/05/10 documented as of this encounter
--- OUTSIDE RECORDS SUMMARY | 2024-09-23 11:32 | XMS_ITS | Encounter Summary ---
Author Organization [facility] Address [facility] [place] [address] Care Team Providers Care Fermenter Wine Name Role Phone Yoni Ramírez MD Primary Care Provider [phone] Encounter Details Date Type Department Care Team [...] on filedocumented in this encounter Care Teams Fermenter Wine Relationship Specialty Start Date End Date Yoni Ramírez MD [address] [place] [address] PCP - General 07/05/10 documented as of this encounter
--- OUTSIDE RECORDS SUMMARY | 2024-09-23 11:32 | XMS_ITS | Encounter Summary ---
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 12/27/21 PSMA PET [...] labwork done and will go up to [facility] after his visit to have them [...] primary care provider. 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 03/13/23 he will have his lupron [...] prostate documented in this encounter Care Teams Acid Filler Relationship Specialty Start Date End Date Yoni Ramírez MD [address] [place] [address] PCP - General 07/05/10 documented as of this encounter
--- OUTSIDE RECORDS SUMMARY | 2024-09-23 11:32 | XMS_ITS | Encounter Summary ---
Author Organization [facility] [place] [address] Care Team Providers Care Inbound Telemarketer Name Role Phone Yoni Ramírez MD Primary Care Provider Encounter Details Date Type Department Care Team (Late st Contact Info) Description 09/10/2023 Telephone Hematology/Oncology at [address] [phone] Theresa Lay Social History Tobacco [...] on filedocumented in this encounter Care Teams Inbound Telemarketer Relationship Specialty Start Date End Date Yoni Ramírez MD [address] [place] [address] PCP - General 07/05/10 documented as of this encounter
--- OUTSIDE RECORDS SUMMARY | 2024-09-23 11:32 | XMS_ITS | Encounter Summary ---
Author Organization [facility] [place] [address] Care Team Providers Care Therapist Physical Name Role Phone Yoni Ramírez MD Primary Care Provider Encounter Details Date Type Department Care Team (Late st Contact Info) Description 07/27/2022 3:30 PM EST Office Visit Radiation Oncology at [address] [phone] Yariel Ernandez MD [address] [place] [address] DR RADIATION ONCOLOGY [place], [place] [id number] Malignant neoplasm of prostate Social History Tobacco [...] Treatment Details Intent: Definitive (Curative) Concurrent [facility] 12/27/2021 01/31/2022 04/25/2022 degarelix [...] to bed or chair Medications Medications 07/20/22 2816 Medication Sig Taking? amitriptyline (Elavil) 10 mg [...] hours as needed. naloxone (Narcan) 4 mg/actuation [place], Non-Aerosol Narcan 4 mg/actuation nasal spray Take [...] placed in this encounter. ??? National Cancer [place] (NCI) Comprehensive Cancer Center ??? [employer] Commission on Cancer (ACS Benjamin) Accredited Cancer Program ??? [employer] (ACR) Accredited Radiation Oncology Program documented in this encounter Plan of Treatment Not on file documented as of this encounter Visit Diagnoses Diagnosis Malignant neoplasm of prostate documented in this encounter Care Teams Therapist Physical Relationship Specialty Start Date End Date Yoni Ramírez MD [address] [place] [address] PCP - General 07/05/10 documented as of this encounter
--- OUTSIDE RECORDS SUMMARY | 2024-09-23 11:32 | XMS_ITS | Encounter Summary ---
Author Organization [facility] Address [facility] [place] [address] Care Team Providers Care Director Business Travel Name Role Phone Yoni Ramírez MD Primary Care Provider Encounter Details Date Type Department Care Team (Late st Contact Info) Description 06/12/2023 3:00 PM EDT Office Visit Hematology/Oncology at [address] [phone] Deyvi Ibrahim MD [facility] DR HEMATOLOGY [place] [address] Prostate cancer metastatic to intrapelvic lymph node; [...] was consistent with prostatic adenocarcinoma grade 4, [place] 4+4 He complains of low back pain [...] Anxiety Suboxone [Buprenorphine-Naloxone] Hives Lexapro [Escitalopram] Hives [place] odd Medications: Your Medications Accurate as of [...] 100 mg Refills: 0 naloxone 4 mg/actuation [place], Non-Aerosol Commonly known as: Narcan Narcan 4 [...] and Plan: Diagnosis: Prostatic adenocarcinoma, grade 4, [place] 4+4, metastatic to regional lymph nodes Treatment: [...] labwork done and will go up to [facility] after his visit to have [...] primary care provider. 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 03/13/23 he will have his lupron [...] monitoring documented in this encounter Care Teams Director Business Travel Relationship Specialty Start Date End Date Yoni Ramírez MD [address] [address] PCP - General 07/05/10 documented as of this encounter
--- OUTSIDE RECORDS SUMMARY | 2024-09-23 11:32 | XMS_ITS | Encounter Summary ---
Author Organization [facility] [place] [address] Care Team Providers Care Oven Baker Name Role Phone Yoni Ramírez MD Primary Care Provider [phone] Reason for Visit * Reason Onset Date Comments Follow-up 07/25/2022 labs Encounter Details Date Type Department Care Team (Late st Contact Info) Description 07/25/2022 Telephone Hematology/Oncology at [address] [phone] Earlene Casas, TODD Follow-up (labs) [...] from 07/18/22 look good per rocio cox BETA TESTER. PSA down to 0.06. Left message for pt about this he will call with any questions. documented in this encounter Plan of Treatment Not on file documented as of this encounter Visit Diagnoses Not on filedocumented in this encounter Care Teams Oven Baker Relationship Specialty Start Date End Date Yoni Ramírez MD [address] [place] [address] PCP - General 07/05/10 documented as of this encounter
--- OUTSIDE RECORDS SUMMARY | 2024-09-23 11:32 | XMS_ITS | Encounter Summary ---
Author Organization [facility] Address [facility] [place] [address] Care Team Providers Care Blade Groover Name Role Phone Yoni Ramírez MD Primary Care Provider [phone] Encounter Details Date Type Department Care Team [...] on filedocumented in this encounter Care Teams Blade Groover Relationship Specialty Start Date End Date Yoni Ramírez MD [address] [place] [address] PCP - General 07/05/10 documented as of this encounter
--- OUTSIDE RECORDS SUMMARY | 2024-09-23 11:32 | XMS_ITS | Encounter Summary ---
Author Organization [facility] Address [facility] [place] [address] Care Team Providers Care Pediatric Immunologist Name Role Phone Yoni Ramírez MD Primary Care Provider [phone] Encounter Details Date Type Department Care Team [...] on filedocumented in this encounter Care Teams Pediatric Immunologist Relationship Specialty Start Date End Date Yoni Ramírez MD [address] [place] [address] PCP - General 07/05/10 documented as of this encounter
--- OUTSIDE RECORDS SUMMARY | 2024-09-23 11:32 | XMS_ITS | Encounter Summary ---
Author Organization [facility] Address [facility] [place] [address] Care Team Providers Care Prover Name Role Phone Yoni Ramírez MD Primary Care Provider [phone] Encounter Details Date Type Department Care Team [...] on filedocumented in this encounter Care Teams Prover Relationship Specialty Start Date End Date Yoni Ramírez MD [address] [place] [address] PCP - General 07/05/10 documented as of this encounter
--- OUTSIDE RECORDS SUMMARY | 2024-09-23 11:32 | XMS_ITS | Encounter Summary ---
Author Organization [facility] [place] [address] Care Team Providers Care Purchasing Administrative Assistant Name Role Phone Yoni Ramírez MD Primary Care Provider [phone] Encounter Details Date Type Department Care Team (Late st Contact Info) Description 04/09/2023 12:05 AM EDT Ancillary Procedure Radiology Library at [facility] [address] [place] [phone] Yoni Ramírez MD [address] [place] [address] Social History Tobacco Use Types Packs/Day Years [...] nuclear medicine (04/09/2023 12:05 AM EDT) Narrative [facility] - 04/10/2023 1:49 PM EDT This exam is auto-finalizing. It's purpose is for storage only. Yoni Ramírez MD IMG FILM LIBRARY ORD ERABLES Performing Organization Address City/State/[place] Co de Phone Number [place], [place] documented in this encounter Visit Diagnoses Not on filedocumented in this encounter Care Teams Purchasing Administrative Assistant Relationship Specialty Start Date End Date Yoni Ramírez MD [address] [place] [address] PCP - General 07/05/10 documented as of this encounter
--- OUTSIDE RECORDS SUMMARY | 2024-09-23 11:32 | XMS_ITS | Encounter Summary ---
Author Organization [facility] Address [facility] [place] [address] Care Team Providers Care Utility Tender Carding Name Role Phone Yoni Ramírez MD Primary Care Provider [phone] Encounter Details Date Type Department Care Team (Late st Contact Info) Description 12/19/2022 2:00 PM EDT Office Visit Hematology/Oncology at [address] [phone] Deyvi Ibrahim MD [facility] DR [place] [address] Eleanor Cano APRN [facility] [place] [address] Prostate cancer metastatic to intrapelvic lymph node [...] Suboxone [Buprenorphine-Naloxone] Hives ??? Lexapro [Escitalopram] Hives [place] odd Medications: Your Medications Accurate as of [...] 4 mg Refills: 0 naloxone 4 mg/actuation [place], Non-Aerosol Commonly known as: Narcan Narcan 4 [...] and Plan: Diagnosis: Prostatic adenocarcinoma, grade 4, [place] 4+4, metastatic to regional lymph nodes Treatment: [...] He would like to be treated at [facility] close to his home. 12/27/21 PSMA [...] labwork done and will go up to [facility] after his visit to have them done. [...] primary care provider. 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 Plan: 1. Lupron 22.5 mg every [...] monitoring documented in this encounter Care Teams Utility Tender Carding Relationship Specialty Start Date End Date Yoni Ramírez MD [address] [place] [address] PCP - General 07/05/10 documented as of this encounter
--- OUTSIDE RECORDS SUMMARY | 2024-09-23 11:32 | XMS_ITS | Encounter Summary ---
Author Organization [facility] Address [facility] [place] [address] Care Team Providers Care Meeting/Event Planner Name Role Phone Yoni Ramírez MD Primary Care Provider [phone] Encounter Details Date Type Department Care Team [...] on filedocumented in this encounter Care Teams Meeting/Event Planner Relationship Specialty Start Date End Date Yoni Ramírez MD [address] [place] [address] PCP - General 07/05/10 documented as of this encounter
--- OUTSIDE RECORDS SUMMARY | 2024-09-23 11:32 | XMS_ITS | Encounter Summary ---
Author Organization [facility] [place] [address] Care Team Providers Care Helicopter Engineer Name Role Phone Yoni Ramírez MD Primary Care Provider Reason for Visit * Reason Comments Injections lupron * Treatment/Therapy Plan Authorization (Routine) - Authorized Specialty Diagnoses / Procedures Referred By Contac t Referred To Contact Hematology and Oncology Diagnoses Malignant neoplasm of prostate Procedures TC LEUPROLIDE ACETATE 7.5MG, FOR DEPOST SUSPENSION (LUPRON DEPOT) [id number] LUPRON DEPOT Deyvi Ibrahim MD [address] [place] [address] [place] [address] Deyvi Ibrahim MD [address] [place] [address] DR [place] [address] Referral ID Status Reason Start Date Expiration Date V isits Requested Visits Authorized [id number] Authorized 08/13/2022 03/12/2024 99 99 Encounter Details Date Type Department Care Team (Late st Contact Info) Description 03/13/2023 12:00 PM EDT Infusion Hematology Oncology at [address] [phone] Malignant neoplasm of prostate Social History Tobacco [...] Gluteal documented in this encounter Care Teams Helicopter Engineer Relationship Specialty Start Date End Date Yoni Ramírez MD [address] [place] [address] PCP - General 07/05/10 documented as of this encounter
--- OUTSIDE RECORDS SUMMARY | 2024-09-23 11:32 | XMS_ITS | Encounter Summary ---
Author Organization [facility] Address [facility] [place] [address] Care Team Providers Care Sectionizer Name Role Phone Yoni Ramírez MD Primary Care Provider [phone] Encounter Details Date Type Department Care Team [...] on filedocumented in this encounter Care Teams Sectionizer Relationship Specialty Start Date End Date Yoni Ramírez MD [address] [place] [address] PCP - General 07/05/10 documented as of this encounter
--- OUTSIDE RECORDS SUMMARY | 2024-09-23 11:32 | XMS_ITS | Encounter Summary ---
Author Organization [facility] Address [facility] [place] [address] Care Team Providers Care Energy Conservation Specialist Name Role Phone Yoni Ramírez MD Primary Care Provider [phone] Encounter Details Date Type Department Care Team [...] on filedocumented in this encounter Care Teams Energy Conservation Specialist Relationship Specialty Start Date End Date Yoni Ramírez MD [address] [place] [address] PCP - General 07/05/10 documented as of this encounter
--- OUTSIDE RECORDS SUMMARY | 2024-09-23 11:32 | XMS_ITS | Encounter Summary ---
Author Organization [facility] [place] [address] Care Team Providers Care Data Processing Consultant Name Role Phone Yoni Ramírez MD Primary Care Provider [phone] Reason for Visit * Reason Onset Date Comments Other 03/22/2023 No show for bone scan Encounter Details Date Type Department Care Team (Late st Contact Info) Description 03/22/2023 Telephone Hematology/Oncology at [address] [phone] Earlene Casas RN Other (No [...] no showed for his bone scan at [facility] on 03/19/23. I called him and gave him number for [facility] radiologyfor him to reschedule. [phone] option 3. Asked him to call us with new time so we can look forreport, he agreed to do this. documented in this encounter Plan of Treatment Not on file documented as of this encounter Visit Diagnoses Not on filedocumented in this encounter Care Teams Data Processing Consultant Relationship Specialty Start Date End Date Yoni Ramírez MD [address] [place] [address] PCP - General 07/05/10 documented as of this encounter
--- OUTSIDE RECORDS SUMMARY | 2024-09-23 11:32 | XMS_ITS | Encounter Summary ---
Author Organization [facility] Address [facility] [place] [address] Care Team Providers Care Pulp Beater Name Role Phone Yoni Ramírez MD Primary Care Provider [phone] Encounter Details Date Type Department Care Team [...] on filedocumented in this encounter Care Teams Pulp Beater Relationship Specialty Start Date End Date Yoni Ramírez MD [address] [place] [address] PCP - General 07/05/10 documented as of this encounter
--- OUTSIDE RECORDS SUMMARY | 2024-09-23 11:32 | XMS_ITS | Encounter Summary ---
Author Organization [facility] Address [facility] [place] [address] Care Team Providers Care Sales Outfitter Name Role Phone Yoni Ramírez MD Primary Care Provider [phone] Encounter Details Date Type Department Care Team [...] on filedocumented in this encounter Care Teams Sales Outfitter Relationship Specialty Start Date End Date Yoni Ramírez MD [address] [place] [address] PCP - General 07/05/10 documented as of this encounter
--- OUTSIDE RECORDS SUMMARY | 2024-09-23 11:32 | XMS_ITS | Encounter Summary ---
Author Organization [facility] [place] [address] Care Team Providers Care Automation Engineer Name Role Phone Yoni Ramírez MD Primary Care Provider [phone] Reason for Visit * Reason Onset Date Comments Follow-up 03/21/2023 Re scan and PSA Encounter Details Date Type Department Care Team (Late st Contact Info) Description 03/21/2023 Telephone Hematology/Oncology at [address] [phone] Manav Dexter RN Follow-up (Re [...] PM EDT No results found at [facility]. Called and LM for Jeff L Quick to return call to discuss. ----- Message ----- From: Trisha Lopez RN Sent: 03/20/2023 12:00 AM EDT To: [facility] Hem Onc Nurse Subject: Bone scan Jeff was scheduled to have bone scan yesterday 03/19 at [facility]. Please look for the results and review with Jojo. He should have also had a PSA drawn. Please make sure that was done. Thanks Trisha documented in this encounter Plan of Treatment Not on file documented as of this encounter Visit Diagnoses Not on filedocumented in this encounter Care Teams Automation Engineer Relationship Specialty Start Date End Date Yoni Ramírez MD [address] [place] [address] PCP - General 07/05/10 documented as of this encounter
--- OUTSIDE RECORDS SUMMARY | 2024-09-23 11:32 | XMS_ITS | Encounter Summary ---
Author Organization [facility] [place] [address] Care Team Providers Care Servomechanism Assembler Name Role Phone Yoni Ramírez MD Primary Care Provider Encounter Details Date Type Department Care Team (Late st Contact Info) Description 04/09/2023 Ancillary Procedure Radiology Library at [facility] [place] [address] [place] [phone] Yoni Ramírez MD [address] [place] [address] Social History Tobacco Use Types Packs/Day Years [...] Abdomen Pelvis (04/09/2023 12:00 AM EDT) Narrative [facility] - 04/10/2023 1:49 PM EDT This exam is auto-finalizing. It's purpose is for storage only. Yoni Ramírez MD IMG FILM LIBRARY ORD ERABLES Performing Organization Address City/State/[facility] Co de Phone Number [place], [place] documented in this encounter Visit Diagnoses Not on filedocumented in this encounter Care Teams Servomechanism Assembler Relationship Specialty Start Date End Date Yoni Ramírez MD [address] [place] [address] PCP - General 07/05/10 documented as of this encounter
--- OUTSIDE RECORDS SUMMARY | 2024-09-23 11:32 | XMS_ITS | Encounter Summary ---
Author Organization [facility] [place] [address] Care Team Providers Care Sap Plant Maintenance Consultant Name Role Phone Yoni Ramírez MD Primary Care Provider Reason for Visit * Reason Comments Injections IM lupron * Treatment/Therapy Plan Authorization (Routine) - Authorized Specialty Diagnoses / Procedures Referred By Contac t Referred To Contact Hematology and Oncology Diagnoses Malignant neoplasm of prostate Procedures TC LEUPROLIDE ACETATE 7.5MG, FOR DEPOST SUSPENSION (LUPRON DEPOT) [id number] LUPRON DEPOT Deyvi Ibrahim MD [address] [place] [address] [place] [address] Deyvi Ibrahim MD [address] [place] [address] DR [place] [address] Referral ID Status Reason Start Date Expiration Date V isits Requested Visits Authorized [id number] Authorized 08/13/2022 03/12/2024 99 99 Encounter Details Date Type Department Care Team (Late st Contact Info) Description 09/11/2023 3:00 PM EST Infusion Hematology Oncology at [address] [phone] Malignant neoplasm of prostate Social [...] Gluteal documented in this encounter Care Teams Sap Plant Maintenance Consultant Relationship Specialty Start Date End Date Yoni Ramírez MD [address] [place] [address] PCP - General 07/05/10 documented as of this encounter
--- OUTSIDE RECORDS SUMMARY | 2024-09-23 11:32 | XMS_ITS | Encounter Summary ---
Author Organization [facility] Address [facility] [place] [address] Care Team Providers Care Director Of Sustainability Name Role Phone Yoni Ramírez MD Primary Care Provider [phone] Encounter Details Date Type Department Care Team [...] Date Yoni Ramírez MD [address] [place] [address] PCP - General 07/05/10 documented as of this encounter
--- OUTSIDE RECORDS SUMMARY | 2024-09-23 11:32 | XMS_ITS | Encounter Summary ---
Author Organization [facility] Address [facility] [place] [address] Care Team Providers Care Digital Media Sales Consultant Name Role Phone Yoni Ramírez MD Primary Care Provider [phone] Encounter Details Date Type Department Care Team [...] on filedocumented in this encounter Care Teams Digital Media Sales Consultant Relationship Specialty Start Date End Date Yoni Ramírez MD [address] [place] [address] PCP - General 07/05/10 documented as of this encounter
--- OUTSIDE RECORDS SUMMARY | 2024-09-23 11:32 | XMS_ITS | Encounter Summary ---
Author Organization [facility] [place] [address] Care Team Providers Care Engraver Tire Mold Name Role Phone Yoni Ramírez MD Primary Care Provider [phone] Encounter Details Date Type Department Care Team (Late st Contact Info) Description 09/01/2022 Telephone Radiation Oncology at [address] [phone] Geovani Handy RN Social History [...] patient to call this RN back at [phone]. documented in this encounter Plan of Treatment Not on file documented as of this encounter Visit Diagnoses Not on filedocumented in this encounter Care Teams Engraver Tire Mold Relationship Specialty Start Date End Date Yoni Ramírez MD [address] [place] [address] PCP - General 07/05/10 documented as of this encounter
--- OUTSIDE RECORDS SUMMARY | 2024-09-23 11:32 | XMS_ITS | Encounter Summary ---
Author Organization [facility] Address [facility] [place] [address] Care Team Providers Care Wood Grinder Name Role Phone Yoni Ramírez MD Primary Care Provider [phone] Encounter Details Date Type Department Care Team [...] filedocumented in this encounter Care Teams Wood Grinder Relationship Specialty Start Date End Date Yoni Ramírez MD [address] [place] [address] PCP - General 07/05/10 documented as of this encounter
--- OUTSIDE RECORDS SUMMARY | 2024-09-23 11:32 | XMS_ITS | Encounter Summary ---
Author Organization [facility] Address [facility] [place] [address] Care Team Providers Care Wood Room Hand Name Role Phone Yoni Ramírez MD Primary Care Provider [phone] Encounter Details Date Type Department Care Team [...] filedocumented in this encounter Care Teams Wood Room Hand Relationship Specialty Start Date End Date Yoni Ramírez MD [address] [place] [address] PCP - General 07/05/10 documented as of this encounter
--- OUTSIDE RECORDS SUMMARY | 2024-09-23 11:32 | XMS_ITS | Encounter Summary ---
Author Organization [facility] [place] [address] Care Team Providers Care Highway Administrative Engineer Name Role Phone Yoni Ramírez MD Primary Care Provider Encounter Details Date Type Department Care Team (Late st Contact Info) Description 09/21/2022 Notes Only Radiation Oncology at [address] [phone] Yariel Ernandez MD [address] [place] [address] DR RADIATION ONCOLOGY [place], [place] [id number] Social History Tobacco Use Types Packs/Day Years [...] from the original note were not included. [facility] Medicine Radiation Oncology Radiation Therapy [...] plan: Follow-up visit with Radiation Oncology in [facility] will be in 3 months for routine follow-up.He also has a visit with Dr Ibrahim 10/17/22 for continued management of systemic therapy. Jeff hasreceived instructions to call this office or seek the help of the local emergency room if any further problems should arise prior to followup. YARIEL ERNANDEZ MD 09/22/2022 ??? National Cancer [place] (NCI) Comprehensive Cancer Center ??? [employer] Commission on Cancer (ACS Benjamin) Accredited Cancer Program ??? [employer] (ACR) Accredited Radiation Oncology Program documented in this encounter Plan of Treatment Not on file documented as of this encounter Visit Diagnoses Not on filedocumented in this encounter Care Teams Highway Administrative Engineer Relationship Specialty Start Date End Date Yoni Ramírez MD [address] [place] [address] PCP - General 07/05/10 documented as of this encounter
--- OUTSIDE RECORDS SUMMARY | 2024-09-23 11:32 | XMS_ITS | Encounter Summary ---
Author Organization [facility] [place] [address] Care Team Providers Care Small Appliance Assembly Supervisor Name Role Phone Yoni Ramírez MD Primary Care Provider Encounter Details Date Type Department Care Team (Late st Contact Info) Description 08/18/2022 1:15 PM EST Office Visit Radiation Oncology at [address] [phone] Yariel Ernandez MD [address] [place] [address] DR RADIATION ONCOLOGY [place], [place] [id number] Malignant neoplasm of prostate Social History Tobacco [...] from the original note were not included. [facility] Medicine Radiation Oncology Radiation Oncology On-treatment [...] Treatment Details Intent: Definitive (Curative) Concurrent Therapy: [facility] ON[facility] (AMB) 12/27/2021 01/31/2022 04/25/2022 degarelix (Firmagon) [...] as needed. Yes naloxone (Narcan) 4 mg/actuation [place], Non-Aerosol Narcan 4 mg/actuation nasal spray Take [...] placed in this encounter. ??? National Cancer [place] (NCI) Comprehensive Cancer Center ??? [employer] Commission on Cancer (ACS Benjamin) Accredited Cancer Program ??? [employer] (ACR) Accredited Radiation Oncology Program documented in this encounter Plan of Treatment Not on file documented as of this encounter Visit Diagnoses Diagnosis Malignant neoplasm of prostate documented in this encounter Care Teams Small Appliance Assembly Supervisor Relationship Specialty Start Date End Date Yoni Ramírez MD [address] [place] [address] PCP - General 07/05/10 documented as of this encounter
--- OUTSIDE RECORDS SUMMARY | 2024-09-23 11:32 | XMS_ITS | Encounter Summary ---
Author Organization [facility] [place] [address] Care Team Providers Care Back Tacker Name Role Phone Yoni Ramírez MD Primary Care Provider [phone] Reason for Visit * Reason Onset Date Comments Results 06/22/2023 PSA results. Encounter Details Date Type Department Care Team ([facility] st Contact Info) Description 06/22/2023 Telephone Hematology/Oncology at [address] [phone] Trisha Lopez, RN Results (PSA [...] his chart shortly Best call back number [phone] documented in this encounter Plan of Treatment Not on file documented as of this encounter Visit Diagnoses Not on filedocumented in this encounter Care Teams Back Tacker Relationship Specialty Start Date End Date Yoni Ramírez MD [address] [place] [address] PCP - General 07/05/10 documented as of this encounter
--- OUTSIDE RECORDS SUMMARY | 2024-09-23 11:32 | XMS_ITS | Encounter Summary ---
Author Organization [facility] Address [facility] [place] [address] Care Team Providers Care Director Of Corporate Sponsorships Name Role Phone Yoni Ramírez MD Primary Care Provider [phone] Encounter Details Date Type Department Care Team [...] in this encounter Care Teams Director Of Corporate Sponsorships Relationship Specialty Start Date End Date Yoni Ramírez MD [address] [place] [address] PCP - General 07/05/10 documented as of this encounter
--- OUTSIDE RECORDS SUMMARY | 2024-09-23 11:32 | XMS_ITS | Encounter Summary ---
Author Organization [facility] [address] Care Team Providers Care Automobile Service Station Manager Name Role Phone Yoni Ramírez MD Primary Care Provider Reason for Visit * Reason Comments Injections Lupron * Treatment/Therapy Plan Authorization (Routine) - Authorized Specialty Diagnoses / Procedures Referred By Contac t Referred To Contact Hematology and Oncology Diagnoses Malignant neoplasm of prostate Procedures TC LEUPROLIDE ACETATE 7.5MG, FOR DEPOST SUSPENSION (LUPRON DEPOT) [id number] LUPRON DEPOT Deyvi Ibrahim MD [address] [place] [address] [place] [address] Deyvi Ibrahim MD [address] [place] [address] [place] [address] Referral ID Status Reason Start Date Expiration Date V isits Requested Visits Authorized [id number] Authorized 08/13/2022 03/12/2024 99 99 Encounter Details Date Type Department Care Team (Late st Contact Info) Description 12/19/2022 3:30 PM EDT Infusion Hematology Oncology at [address] [phone] Malignant neoplasm of prostate Social [...] Gluteal documented in this encounter Care Teams Automobile Service Station Manager Relationship Specialty Start Date End Date Yoni Ramírez MD [address] [place] [address] PCP - General 07/05/10 documented as of this encounter
--- OUTSIDE RECORDS SUMMARY | 2024-09-23 11:32 | XMS_ITS | Encounter Summary ---
[place] [address] Care Team Providers Care Appraisal Technician Name Role Phone Yoni Ramírez MD Primary Care Provider [phone] Reason for Visit * Reason Onset Date Comments Prior Authorization 02/21/2023 Encounter Details Date Type Department Care Team (Late st Contact Info) Description 02/21/2023 Telephone [place]ematology [place] [phone] Victorina Dallas Prior Authorization Social History Tobacco [...] 11:21 AM EDT Procedure Prior Authorization Procedure/Cpt: 20562 Pet scan, [id number] Ct c/a/p Rationale for request: C61, C77.5 Health plan: [facility] [employer] medicare Authorizing client relations representative name: Call to health plan on: 02/21/23 Health plan decision: 11:25 am per Chichi H: No PA is required as long as it is outpatient and provider is in network Quantity approved: Authorization number: Start date: End date: Facility: [facility] Per Ct fee schedule ([email or web address]) NO PA REQUIRED documented in this encounter Plan of Treatment Not on file documented as of this encounter Visit Diagnoses Not on filedocumented in this encounter Care Teams Appraisal Technician Relationship Specialty Start Date End Date Yoni Ramírez MD [address] [place] [address] PCP - General 07/05/10 documented as of this encounter
--- OUTSIDE RECORDS SUMMARY | 2024-09-23 11:32 | XMS_ITS | Encounter Summary ---
Author Organization [facility] [place] [address] Care Team Providers Care Clod Puller Name Role Phone Yoni Ramírez MD Primary Care Provider [phone] Encounter Details Date Type Department Care Team (Late st Contact Info) Description 2023 Telephone Hematology/Oncology at [address] [phone] Theresa Lay Social History Tobacco [...] on filedocumented in this encounter Care Teams Clod Puller Relationship Specialty Start Date End Date Yoni Ramírez MD [address] [place] [address] PCP - General 07/05/10 documented as of this encounter
--- OUTSIDE RECORDS SUMMARY | 2024-09-23 11:33 | XMS_ITS | Encounter Summary ---
Author Organization [facility] Address [facility] [place] [address] Care Team Providers Care Psychiatric Nursing Assistant Name Role Phone Yoni Ramírez MD Primary Care Provider [phone] Encounter Details Date Type Department Care Team [...] on filedocumented in this encounter Care Teams Psychiatric Nursing Assistant Relationship Specialty Start Date End Date Yoni Ramírez MD [address] [place] [address] PCP - General 07/05/10 documented as of this encounter
--- OUTSIDE RECORDS SUMMARY | 2024-09-23 11:33 | XMS_ITS | Encounter Summary ---
[place] [address] Care Team Providers Care Wire Bender Hand Name Role Phone Yoni Ramírez MD Primary Care Provider Reason for Visit * Reason Comments Simulation * Consultation (Routine) - Closed Specialty Diagnoses / Procedures Referred By Contac t Referred To Contact Radiation Oncology Diagnoses Malignant neoplasm of prostate Procedures Simulation for Radiation Therapy Planning Yariel Ernandez MD [address] [place] [address] [place] [address] [facility] Rad Onc Office [address] [place] [phone] Referral ID Status Reason Start Date Expiration Date V isits Requested Visits Authorized [id number] Closed Consult, Test & Treat 05/02/2022 08/12/2022 44 44 Encounter Details Date Type Department Care Team (Late st Contact Info) Description 05/02/2022 3:00 PM EDT Ancillary Appointment [place] [address] Yariel Ernandez MD [address] [place] [address] DR RADIATION ONCOLOGY [place], [place] [id number] Social History Tobacco Use Types Packs/Day Years [...] Routine Malignant neoplasm of prostate Ordered: 04/14/2022 documented as of this encounter Visit Diagnoses Not on filedocumented in this encounter Care Teams Wire Bender Hand Relationship Specialty Start Date End Date Yoni Ramírez MD [address] [place] [address] PCP - General 07/05/10 documented as of this encounter
--- OUTSIDE RECORDS SUMMARY | 2024-09-23 11:33 | XMS_ITS | Encounter Summary ---
Author Organization [facility] Address [facility] Aida [place] [address] Care Team Providers Care Training Representative Name Role Phone Yoni Ramírez MD Primary Care Provider [phone] Encounter Details Date Type Department Care Team [...] on filedocumented in this encounter Care Teams Training Representative Relationship Specialty Start Date End Date Yoni Ramírez MD [address] [place] [address] PCP - General 07/05/10 documented as of this encounter
--- OUTSIDE RECORDS SUMMARY | 2024-09-23 11:33 | XMS_ITS | Encounter Summary ---
Author Organization [facility] [place] [address] Care Team Providers Care Integrated Circuits Inspector Name Role Phone Yoni Ramírez MD Primary Care Provider Encounter Details Date Type Department Care Team (Late st Contact Info) Description 05/18/2022 3:00 PM EDT Office Visit Radiation Oncology at [address] [phone] Yariel Ernandez MD [address] [place] [address] DR RADIATION ONCOLOGY [place], [place] [id number] Malignant neoplasm of prostate Social History Tobacco [...] from the original note were not included. [facility] Medicine Radiation Oncology Radiation Oncology On-treatment Visit [...] by mouth daily. naloxone (Narcan) 4 mg/actuation [place], Non-Aerosol Narcan 4 mg/actuation nasal spray Take [...] Carly Tam MD PGY3 ??? National Cancer [place] (NCI) Comprehensive Cancer Center ??? [place] [employer] Commission on Cancer (ACS Benjamin) Accredited Cancer Program ??? [employer] (ACR) Accredited Radiation Oncology [...] RT without changes. Yariel Ernandez MD, MS Monument Installer Radiation Oncology documented in this encounter Plan of Treatment Not on file documented as of this encounter Visit Diagnoses Diagnosis Malignant neoplasm of prostate documented in this encounter Care Teams Integrated Circuits Inspector Relationship Specialty Start Date End Date Yoni Ramírez MD [address] [place] [address] PCP - General 07/05/10 documented as of this encounter
--- OUTSIDE RECORDS SUMMARY | 2024-09-23 11:33 | XMS_ITS | Encounter Summary ---
Author Organization [facility] Address [facility] [place] [address] Care Team Providers Care Sport Shoe Spike Assembler Name Role Phone Yoni Ramírez MD Primary Care Provider [phone] Encounter Details Date Type Department Care Team [...] on filedocumented in this encounter Care Teams Sport Shoe Spike Assembler Relationship Specialty Start Date End Date Yoni Ramírez MD [address] [place] [address] PCP - General 07/05/10 documented as of this encounter
--- OUTSIDE RECORDS SUMMARY | 2024-09-23 11:33 | XMS_ITS | Encounter Summary ---
Author Organization [facility] [place] [address] Care Team Providers Care Assistant Tennis Coach Name Role Phone Yoni Ramírez MD Primary Care Provider [phone] Encounter Details Date Type Department Care Team (Late st Contact Info) Description 01/31/2022 Telephone Hematology/Oncology at [address] [phone] Earlene Casas RN Social History [...] length: ongoing ?? Start date: After he [facility] when receives pills Plan of care compared to information in the medical record, including note from provider on 01/31/22(date). The prescription was foundto be complete and accurate. It was printed, reviewed and signed by provider and manually faxed to [facility] [phone]. Oral Chemotherapy Assessment Note 01/31/2022 Jeff Arreguin, [...] swallowing). ?? is willing to fill with [facility] What pharmacy would the patient like to have the medication dispensed from? [facility] The patient verifies: ?? ability to read and understand the drug label instructions. ?? understanding of treatment plan with oral chemotherapy. ?? understanding that medication will be dispensed from [facility] phone . This medication will be delivered to the home (instructed to call nurse if he/she does not hear from the pharmacy regarding delivery). ?? that he will need labs drawn on with next provider visit. documented in this encounter Plan of Treatment Not on file documented as of this encounter Visit Diagnoses Not on filedocumented in this encounter Care Teams Assistant Tennis Coach Relationship Specialty Start Date End Date Yoni Ramírez MD [address] [place] [address] PCP - General 07/05/10 documented as of this encounter
--- OUTSIDE RECORDS SUMMARY | 2024-09-23 11:33 | XMS_ITS | Encounter Summary ---
Author Organization [facility] [place] [address] Care Team Providers Care Corrective Therapy Aide Teacher Name Role Phone Yoni Ramírez MD Primary Care Provider Reason for Visit * Reason Onset Date Comments Patient Education 04/20/2022 Patient return ed this RN phone call for pre procedure instructions Encounter Details Date Type Department Care Team (Late st Contact Info) Description 04/20/2022 Telephone Radiation Oncology at [address] [phone] Geovani Handy, RN Patient Education [...] 12:31 PM EDT Radiation Oncology Nurse Note [facility] [place], [place] Patient Information for Prostate Fiducial Placement. Procedure Date: 04/24/2022 Arrival Time: 12:30pm Time of Procedure: 1pm Location: [facility] at the Radiation Oncology Department section 2K [...] will be done at : [ ] [facility] at the Radiation Oncology Department section 2K [ ] [place], [place] [Date: ] [Time: arrive at ] For proper visualization of prostate, it is required that you have a moderately full bladder. This will require you to arrive 30 minutes before scheduled appointment and drink 2 glasses of water upon arrival. There are no restrictions with eating. How to reach us: [facility] [phone] For weekends and after hours: Call [facility] ask for the debone supervisor radiation oncologist Patient was provided a printed copy of these instructions 04/14/2022. This was reviewed with him. He states his questions have been answered and he verbalized understanding of these instructions. documented in this encounter Plan of Treatment Not on file documented as of this encounter Visit Diagnoses Diagnosis Prostate cancer Malignant neoplasm of prostate Anxiety Anxiety state, unspecified documented in this encounter Care Teams Corrective Therapy Aide Teacher Relationship Specialty Start Date End Date Yoni Ramírez MD [address] [place] [address] PCP - General 07/05/10 documented as of this encounter
--- OUTSIDE RECORDS SUMMARY | 2024-09-23 11:33 | XMS_ITS | Encounter Summary ---
Author Organization [facility] [place] [address] Care Team Providers Care Oenologist Name Role Phone Yoni Ramírez MD Primary Care Provider Encounter Details Date Type Department Care Team (Late st Contact Info) Description 03/28/2022 Telephone Hematology/Oncology at [address] [phone] Saima Fuentes Social History Tobacco [...] slept in a jail (including now)? No 02/18/2022 Sex and Gender [...] will plan to go for labs at [facility], in [facility], prior tohis visit on 04/25. documented in this encounter Plan of Treatment Not on file documented as of this encounter Visit Diagnoses Not on filedocumented in this encounter Care Teams Oenologist Relationship Specialty Start Date End Date Yoni Ramírez MD [address] [place] [address] PCP - General 07/05/10 documented as of this encounter
--- OUTSIDE RECORDS SUMMARY | 2024-09-23 11:33 | XMS_ITS | Encounter Summary ---
Author Organization [facility] Address [facility] [place]ida [place] [address] Care Team Providers Care Coloring Machine Operator Name Role Phone Yoni Ramírez MD Primary Care Provider [phone] Encounter Details Date Type Department Care Team [...] on filedocumented in this encounter Care Teams Coloring Machine Operator Relationship Specialty Start Date End Date Yoni Ramírez MD [address] [place] [address] PCP - General 07/05/10 documented as of this encounter
--- OUTSIDE RECORDS SUMMARY | 2024-09-23 11:33 | XMS_ITS | Encounter Summary ---
Author Organization [facility] [place] [address] Care Team Providers Care Wharf Attendant Name Role Phone Yoni Ramírez MD Primary Care Provider [phone] Reason for Visit * Reason Onset Date Comments Other 02/21/2022 transportation Encounter Details Date Type Department Care Team (Late st Contact Info) Description 02/21/2022 Telephone Hematology/Oncology at [address] [phone] Makenna Sorto, [facility] OFF[facility] OF CARE MANAGEMENT Other (transportation) Social [...] in a senior living (including now)? No 02/18/2022 Sex and Gender Information Value Date Recorded Sex Assigned at Not on file Gender Identity Not on file Sexual Orientation Not on file documented as of this encounter Miscellaneous Notes * Telephone Encounter - Makenna Sorto MSW - 02/21/2022 3:07 PM EDT TC from Kirsty Barnes RN, Nurse Coordinator, [facility] indicating pt's continues to call requesting help with gas cards for her who is getting treatment at [facility]. They havereceived assistance from the [facility] fund which Ms. Barnes has access to and they are not able to continue with this assistance. She is inquiring about other funds available to pt. Explained pt has accessed funds from the [employer] for travel ($225) and gas cards from the [facility]. Pt is coming in for an appointment on 02-24-[address] Ernandez and suggested she encourage pt/ to ask to speak with this RFID TECHNICIAN. Pt also has Medicaid for insurance and perhaps he is eligible for transportation from [facility]. Will be available to meet with pt/ to discuss further. Care Coordination Financial resources Transportation resources documented in this encounter Plan of Treatment Not on file documented as of this encounter Visit Diagnoses Not on filedocumented in this encounter Care Teams Wharf Attendant Relationship Specialty Start Date End Date Yoni Ramírez MD [address] [place] [address] PCP - General 07/05/10 documented as of this encounter
--- OUTSIDE RECORDS SUMMARY | 2024-09-23 11:33 | XMS_ITS | Encounter Summary ---
Author Organization [facility] [place] [address] Care Team Providers Care Skein Yarn Dyer Helper Name Role Phone Yoni Ramírez MD Primary Care Provider Encounter Details Date Type Department Care Team (Late st Contact Info) Description 06/05/2022 Telephone Radiation Oncology at [address] [phone] Jamila Rdz, RN Social History [...] 06/05/2022 11:27 AM EDT Telephone call from Lianan reporting that Jeff has had diarrhea yesterday while she was at work andso far today. It is liquid brown without blood. He has been incontinent once. Has not taken anything for diarrhea but she is going to pick and shovel man imodium for him to start taking today. [...] on filedocumented in this encounter Care Teams Skein Yarn Dyer Helper Relationship Specialty Start Date End Date Yoni Ramírez MD [address] [place] [address] PCP - General 07/05/10 documented as of this encounter
--- OUTSIDE RECORDS SUMMARY | 2024-09-23 11:33 | XMS_ITS | Encounter Summary ---
Author Organization [facility] [place] [address] Care Team Providers Care Navigating Officer Name Role Phone Yoni Ramírez MD Primary Care Provider Encounter Details Date Type Department Care Team (Late st Contact Info) Description 05/25/2022 Telephone Radiation Oncology at [address] [phone] Geovani Handy RN Social History [...] 05/25/2022 9:37 AM EDT Call placed to [facility] and spoke to inpatient floor nurse about [...] time. Patient may possibly be discharged today. Spike RN to fax over labs, progress notes and discharge paperwork. ----- Message from Yariel Ernandez MD sent at 05/25/2022 7:56 AM EDT ----- Regarding: patient at [facility] Nursing / O'Brien team - Please call up to [facility] and find out what is going on alvarez Aguilar Quick. I just learned that he was admitted. Thanks Yariel documented in this encounter Plan of Treatment Not on file documented as of this encounter Visit Diagnoses Not on filedocumented in this encounter Care Teams Navigating Officer Relationship Specialty Start Date End Date Yoni Ramírez MD [address] [place] [address] PCP - General 07/05/10 documented as of this encounter
--- OUTSIDE RECORDS SUMMARY | 2024-09-23 11:33 | XMS_ITS | Encounter Summary ---
Author Organization [facility] [place] [address] Care Team Providers Care Management Professionals Name Role Phone Yoni Ramírez MD Primary Care Provider [phone] Encounter Details Date Type Department Care Team (Late st Contact Info) Description 05/02/2022 Notes Only Hematology [place] [phone] Patricia Williamson, SAFETY GROOVING MACHINE OPERATOR Social History Tobacco Use Types Packs/Day [...] from Keri Langley RN for gas card. [facility] GROOVING MACHINE OPERATOR took a $25 gas card down to 2K Display Coordinator for her to give to Jeff when he checks in at RAD/ONC at 2:15 today. SW Intervention: Transportation resources documented in this encounter Plan of Treatment Not on file documented as of this encounter Visit Diagnoses Not on filedocumented in this encounter Care Teams Management Professionals Relationship Specialty Start Date End Date Yoni Ramírez MD [address] [place] [phone] PCP - General 07/05/10 documented as of this encounter
--- OUTSIDE RECORDS SUMMARY | 2024-09-23 11:33 | XMS_ITS | Encounter Summary ---
Author Organization [facility] Address [facility] [place] [address] Care Team Providers Care Electronics Inspector Name Role Phone Yoni Ramírez MD Primary Care Provider [phone] Reason for Visit * Reason Comments Follow-up Encounter Details Date Type Department Care Team (Latest Contact Info) Description 04/24/2022 1:00 PM EDT Procedure [place] [address] Zenobia Minor MD [facility] [place] [address] Malignant neoplasm of prostate Social History Tobacco [...] relax for the procedure. Youwill need a fork truck driver to take you home if we [...] Sunday 8 AM to 5 PM for [facility] for [facility] If you have questions about your [...] is urgent. A Radiation Oncology doctor is foundation stage teacher after our normal hours and on weekends. To call for urgent medical issues from radiation treatments that can not wait until normal business hours, please call and have the grommet machine operator page the Radiation Oncologist foundation stage teacher. documented in this encounter Progress Notes * Zenobia Minor MD - 04/24/2022 1:00 PM EDT Images from the original note were not included. RADIATION ONCOLOGY FIDUCIAL PROCEDURE NOTE Date: 04/24/22 Patient name: Jeff Arreguin Provider: Zenobia Minor MD Diagnosis: Very high risk prostate cancer, [place] 4+4 = 8, [id number], Stage ALYSSA Treatment Summary: 1. Degarelix x1 [...] ultrasound guidance and a 5mm gold coil (Copiun) deployed. This was repeated x2 for a [...] prostate documented in this encounter Care Teams Electronics Inspector Relationship Specialty Start Date End Date Yoni Ramírez MD [address] [place] [address] PCP - General 07/05/10 documented as of this encounter
--- OUTSIDE RECORDS SUMMARY | 2024-09-23 11:33 | XMS_ITS | Encounter Summary ---
Author Organization [facility] Address [facility] [place] [address] Care Team Providers Care Cardiovascular Lab Director Name Role Phone Yoni Ramírez MD Primary Care Provider [phone] Encounter Details Date Type Department Care Team (Late st Contact Info) Description 04/19/2022 4:00 PM EDT Telephone Radiation Oncology at [address] [phone] Rad NurseSt Curiel Social History [...] filedocumented in this encounter Care Teams Cardiovascular Lab Director Relationship Specialty Start Date End Date Yoni Ramírez MD [address] [place] [phone] PCP - General 07/05/10 documented as of this encounter
--- OUTSIDE RECORDS SUMMARY | 2024-09-23 11:33 | XMS_ITS | Encounter Summary ---
Author Organization [facility] Address [facility] [place] [address] Care Team Providers Care Trout Farmer Name Role Phone Yoni Ramírez MD Primary Care Provider [phone] Reason for Visit * Reason Comments Injections Lupron Encounter Details Date Type Department Care Team (Late st Contact Info) Description 07/18/2022 3:30 PM EST Office Visit Hematology/Oncology at [address] [phone] Eleanor Cano, DESK CLERKS SUPERVISOR [facility] [place] [address] Malignant neoplasm of prostate; Androgen deprivation therapy [...] were not included. 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 Lexapro [Escitalopram] Hives [place] odd Medications: Your Medications Accurate as of [...] 4 mg Refills: 0 naloxone 4 mg/actuation [place] Commonly known as: Narcan Narcan 4 mg/actuation [...] and Plan: Diagnosis: Prostatic adenocarcinoma, grade 4, [place] 4+4, metastatic to regional lymph nodes Treatment: [...] He would like to be treated at [facility] close to his home. 12/27/21 PSMA [...] labwork done and will go up to [facility] after his visit to have them done. #Pain management: Follows with primary care provider. #Financial hardship: Follows with radiation control worker. Plan: 1. Lupron 22.5 mg every [...] questions/concerns or new symptoms. Eleanor Cano MSN, DESK CLERKS SUPERVISOR, AOCNP Medical Oncology I spent 25 minutes, [...] monitoring documented in this encounter Care Teams Trout Farmer Relationship Specialty Start Date End Date Yoni Ramírez MD [address] [place] [address] PCP - General 07/05/10 documented as of this encounter
--- OUTSIDE RECORDS SUMMARY | 2024-09-23 11:33 | XMS_ITS | Encounter Summary ---
Author Organization [facility] [place] [address] Care Team Providers Care Account Manager Education Name Role Phone Yoni Ramírez MD Primary Care Provider [phone] Reason for Visit * Reason Comments Injections Lupron * Treatment/Therapy Plan Authorization (Routine) - Authorized Specialty Diagnoses / Procedures Referred By Contac t Referred To Contact Hematology and Oncology Diagnoses Malignant neoplasm of prostate Procedures TC LEUPROLIDE ACETATE 7.5MG, FOR DEPOST SUSPENSION (LUPRON DEPOT) [id number] LUPRON DEPOT Deyvi Ibrahim MD [address] [place] [address] DR [place] [address] Deyvi Ibrahim MD [address] [place] [address] DR [place] [address] Referral ID Status Reason Start Date Expiration Date V isits Requested Visits Authorized [id number] Authorized 08/13/2022 03/12/2024 99 99 Encounter Details Date Type Department Care Team (Late st Contact Info) Description 07/18/2022 4:00 PM EST Infusion Hematology Oncology at [address] [phone] Malignant neoplasm of prostate Social [...] mg documented in this encounter Care Teams Account Manager Education Relationship Specialty Start Date End Date Yoni Ramírez MD [address] [place] [address] PCP - General 07/05/10 documented as of this encounter
--- OUTSIDE RECORDS SUMMARY | 2024-09-23 11:33 | XMS_ITS | Encounter Summary ---
Author Organization [facility] Address [facility] [place] [address] Care Team Providers Care Fence Machine Operator Name Role Phone Yoni Ramírez MD Primary Care Provider Encounter Details Date Type Department Care Team (Late st Contact Info) Description 02/28/2022 10:30 AM EDT Office Visit Hematology/Oncology at [address] [phone] Deyvi Ibrahim MD [facility] DR [place] [address] Jojo Williamson APRN Prostate cancer metastatic to [...] in a long term (including now)? No 02/18/2022 Sex and Gender [...] Hives ??? Lexapro [Escitalopram] Other (See Comments) [place] odd Medications: Your Medications Accurate as of [...] 100 mg Refills: 0 naloxone 4 mg/actuation [place] Commonly known as: Narcan Narcan 4 mg/actuation [...] transurethral resection: ?Prostatic adenocarcinoma, grade group 4, [place] ? grade 4+4, involving 100% of the [...] He would like to be treated at [facility] close to his home. 12/27/21 PSMA PET [...] Mr. Arreguin would like to discuss with psychotherapist social worker. Plan: 1. Lupron 22.5 mg [...] monitoring documented in this encounter Care Teams Fence Machine Operator Relationship Specialty Start Date End Date Yoni Ramírez MD [address] [place] [address] PCP - General 07/05/10 documented as of this encounter
--- OUTSIDE RECORDS SUMMARY | 2024-09-23 11:33 | XMS_ITS | Encounter Summary ---
Author [facility] [place] [address] Care Team Providers Care Traffic Signal Repairer Name Role Phone Yoni Ramírez MD Primary Care Provider [phone] Reason for Visit * Reason Comments Injections Lupron injection * Treatment/Therapy Plan Authorization (Routine) - Authorized Specialty Diagnoses / Procedures Referred By Contac t Referred To Contact Hematology and Oncology Diagnoses Malignant neoplasm of prostate Procedures TC LEUPROLIDE ACETATE 7.5MG, FOR DEPOST SUSPENSION (LUPRON DEPOT) [id number] LUPRON DEPOT Deyvi Ibrahim MD [address] [place] [address] [place] [address] Deyvi Ibrahim MD [address] [place] [address] [place] [address] Referral ID Status Reason Start Date Expiration Date V isits Requested Visits Authorized [id number] Authorized 08/13/2022 03/12/2024 99 99 Encounter Details Date Type Department Care Team (Late st Contact Info) Description 04/25/2022 2:00 PM EDT Infusion Hematology Oncology at [address] [phone] Malignant neoplasm of prostate Social History Tobacco [...] Gluteal documented in this encounter Care Teams Traffic Signal Repairer Relationship Specialty Start Date End Date Yoni Ramírez MD [address] [place] [address] PCP - General 07/05/10 documented as of this encounter
--- OUTSIDE RECORDS SUMMARY | 2024-09-23 11:33 | XMS_ITS | Encounter Summary ---
Author Organization [facility] [place] [address] Care Team Providers Care Billet Checker Name Role Phone Yoni Ramírez MD Primary Care Provider [phone] Reason for Visit * Reason Onset Date Comments Follow-up 02/14/2022 [facility] trying t o reach pt Encounter Details Date Type Department Care Team (Late st Contact Info) Description 02/14/2022 Telephone Hematology/Oncology at [address] [phone] Earlene Casas, TODD Follow-up ([facility] [...] PM EDT I received a message from [facility] stating they have been trying to reach Jeff with no return call. I called Jeff today was able to reach him on alternative phone number. He states he has been at [facility] for a week inpt and had no way to communicate with anyone. I gave him [facility] phone number [phone] and asked him to call right away so they can get this medication out to him. He agrees to do this. documented in this encounter Plan of Treatment Not on file documented as of this encounter Visit Diagnoses Not on filedocumented in this encounter Care Teams Billet Checker Relationship Specialty Start Date End Date Yoni Ramírez MD [address] [place] [address] PCP - General 07/05/10 documented as of this encounter
--- OUTSIDE RECORDS SUMMARY | 2024-09-23 11:33 | XMS_ITS | Encounter Summary ---
Author Organization [facility] Address [facility] [place] [address] Care Team Providers Care Railway Track Worker Name Role Phone Yoni Ramírez MD Primary Care Provider [phone] Encounter Details Date Type Department Care Team [...] on filedocumented in this encounter Care Teams Railway Track Worker Relationship Specialty Start Date End Date Yoni Ramírez MD [address] [place] [address] PCP - General 07/05/10 documented as of this encounter
--- OUTSIDE RECORDS SUMMARY | 2024-09-23 11:33 | XMS_ITS | Encounter Summary ---
Author Organization [facility] [place] [address] Care Team Providers Care Saddle Tree Stitcher Name Role Phone Yoni Ramírez MD Primary Care Provider Encounter Details Date Type Department Care Team (Late st Contact Info) Description 06/01/2022 2:25 PM EDT Office Visit Radiation Oncology at [address] [phone] Yariel Ernandez MD [address] [place] [address] DR RADIATION ONCOLOGY [place], [place] [id number] Malignant neoplasm of prostate Social History Tobacco [...] from the original note were not included. [facility] Medicine Radiation Oncology Radiation Oncology [...] daily as needed. naloxone (Narcan) 4 mg/actuation [place], Non-Aerosol Narcan 4 mg/actuation nasal spray Take [...] Carly Tam MD PGY3 ??? [facility] [place] [facility] ??? [employer] [...] recurs during treatment. Yariel Ernandez MD, MS Audio/Visual Manager Radiation Oncology documented in this encounter Plan of Treatment Not on file documented as of this encounter Visit Diagnoses Diagnosis Malignant neoplasm of prostate documented in this encounter Care Teams Saddle Tree Stitcher Relationship Specialty Start Date End Date Yoni Ramírez MD [address] [place] [address] PCP - General 07/05/10 documented as of this encounter
--- OUTSIDE RECORDS SUMMARY | 2024-09-23 11:33 | XMS_ITS | Encounter Summary ---
Author Organization [facility] [place] [address] Care Team Providers Care Information Systems Audit Manager Name Role Phone Yoni Ramírez MD Primary Care Provider [phone] Reason for Visit * Reason Onset Date Comments Medication Refill 03/03/2022 Encounter Details Date Type Department Care Team (Late st Contact Info) Description 03/03/2022 Refill Primary Care at [address] [phone] Christy Hemphill, RECEIVER STOCKER Social History Tobacco Use Types Packs/Day Years [...] 315-250 mg-unit Tablet [Tracy Felipe] Preferred pharmacy: [facility] - [place] [address] [employer] Delivery method: Pickup Medication renew als requested in this message routed separately: aspirin EC 81 mg Tablet, Delayed Release (E.C.) [Howard Segundo] documented in this encounter Plan of Treatment Not on file documented as of this encounter Visit Diagnoses Not on filedocumented in this encounter Care Teams Information Systems Audit Manager Relationship Specialty Start Date End Date Yoni Ramírez MD [address] [place] [address] PCP - General 07/05/10 documented as of this encounter
--- OUTSIDE RECORDS SUMMARY | 2024-09-23 11:33 | XMS_ITS | Encounter Summary ---
Author Organization [facility] [place] [address] Care Team Providers Care Product Expert Name Role Phone Yoni Ramírez MD Primary Care Provider [phone] Reason for Visit * Reason Onset Date Comments Other 05/02/2022 transportation Encounter Details Date Type Department Care Team (Late st Contact Info) Description 05/02/2022 Telephone Radiation Oncology at [address] [phone] Makenna Sorto, [facility] CARE MANAGEMENT Other (transportation) Social [...] Pt has accessed several funds already - [employer], [facility] [place], [facility] cancer fund and [employer] mainly for assistance with gas cards. Asked to update AUTOMOTIVE PAINTER HELPER once plan for RT treatments clearer and can address further. documented in this encounter Plan of Treatment Not on file documented as of this encounter Visit Diagnoses Not on filedocumented in this encounter Care Teams Product Expert Relationship Specialty Start Date End Date Yoni Raímrez MD [address] [place] [address] PCP - General 07/05/10 documented as of this encounter
--- OUTSIDE RECORDS SUMMARY | 2024-09-23 11:33 | XMS_ITS | Encounter Summary ---
Author Organization [facility] [place] [address] Care Team Providers Care Switchboard And Control Room Operator Name Role Phone Yoni Ramírez MD Primary Care Provider [phone] Encounter Details Date Type Department Care Team (Late st Contact Info) Description 05/29/2022 Telephone Radiation Oncology at [address] [phone] Jamila Rdz, RN Social History [...] 05/29/2022 9:24 AM EDT Background: Please see [facility] discharge information filed in Media section of chart. Left message on identifiable voice mail with request for call back with status update. documented in this encounter Plan of Treatment Not on file documented as of this encounter Visit Diagnoses Not on filedocumented in this encounter Care Teams Switchboard And Control Room Operator Relationship Specialty Start Date End Date Yoni Ramírez MD [address] [place] [address] PCP - General 07/05/10 documented as of this encounter
--- OUTSIDE RECORDS SUMMARY | 2024-09-23 11:33 | XMS_ITS | Encounter Summary ---
Author Organization [facility] Address [facility] [place] [address] Care Team Providers Care Administrative Accountant Name Role Phone Yoni Ramírez MD Primary Care Provider Encounter Details Date Type Department Care Team (Late st Contact Info) Description 04/25/2022 1:30 PM EDT Office Visit Hematology/Oncology at [address] [phone] Deyvi Ibrahim MD [facility] DR [place] [address] Eleanor Cano APRN [facility] [place] [address] Prostate cancer metastatic to intrapelvic lymph node; [...] were not included. 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 Lexapro [Escitalopram] Hives [place] odd Medications: Your Medications Accurate as of [...] 2 tablet Refills: 0 naloxone 4 mg/actuation [place] Commonly known as: Narcan Narcan 4 mg/actuation [...] transurethral resection: ?Prostatic adenocarcinoma, grade group 4, [place] ? grade 4+4, involving 100% of the [...] and Plan: Diagnosis: Prostatic adenocarcinoma, grade 4, [place] 4+4, metastatic to regional lymph nodes Treatment: [...] He would like to be treated at [facility] close to his home. 12/27/21 PSMA [...] Mr. Arreguin would like to discuss with delinquency prevention social worker. Plan: 1. Lupron 22.5 mg [...] therapeutic drug monitoring Malignant neoplasm of prostate documented in this encounter Care Teams Administrative Accountant Relationship Specialty Start Date End Date Yoni Ramírez MD [address] [place] [phone] PCP - General 07/05/10 documented as of this encounter
--- OUTSIDE RECORDS SUMMARY | 2024-09-23 11:33 | XMS_ITS | Encounter Summary ---
Author Organization [facility] [place] [address] Care Team Providers Care Ballistics Teacher Name Role Phone Yoni Ramírez MD Primary Care Provider [phone] Encounter Details Date Type Department Care Team (Late st Contact Info) Description 01/31/2022 Notes Only Hematology/Oncology at [address] [phone] Makenna Sorto, [facility] OFFICE OF CARE MANAGEMENT Social History Tobacco [...] of receipts [facility] to [facility] for the financial assistance they gave pt for transportation costs and heating wood. Pt indicated finances are tight and hopefully may be able toreturn to work. He is expecting RT at some point in the near future and ELECTRICAL AND INSTRUMENTATION MANAGER will plan to follow up with him [...] on filedocumented in this encounter Care Teams Ballistics Teacher Relationship Specialty Start Date End Date Yoni Ramírez MD [address] [place] [address] PCP - General 07/05/10 documented as of this encounter
--- OUTSIDE RECORDS SUMMARY | 2024-09-23 11:33 | XMS_ITS | Encounter Summary ---
Author Organization [facility] [place] [address] Care Team Providers Care Zipper Trimmer Name Role Phone Yoni Ramírez MD Primary Care Provider Encounter Details Date Type Department Care Team (Late st Contact Info) Description 06/08/2022 Telephone Radiation Oncology at [address] [phone] Geovani Handy RN Social History [...] on filedocumented in this encounter Care Teams Zipper Trimmer Relationship Specialty Start Date End Date Yoni Ramírez MD [address] [place] [address] PCP - General 07/05/10 documented as of this encounter
--- OUTSIDE RECORDS SUMMARY | 2024-09-23 11:33 | XMS_ITS | Encounter Summary ---
Author Organization [facility] Address [facility] [place] [address] Care Team Providers Care Rejogger Name Role Phone Yoni Ramírez MD Primary Care Provider [phone] Encounter Details Date Type Department Care Team [...] on filedocumented in this encounter Care Teams Rejogger Relationship Specialty Start Date End Date Yoni Ramírez MD [address] [place] [address] PCP - General 07/05/10 documented as of this encounter
--- OUTSIDE RECORDS SUMMARY | 2024-09-23 11:33 | XMS_ITS | Encounter Summary ---
Author Organization [facility] [place] [address] Care Team Providers Care Utility Locator Name Role Phone Yoni Ramírez MD Primary Care Provider [phone] Reason for Visit * Reason Onset Date Comments New Medication Request 02/24/2022 Starting abirateone Encounter Details Date Type Department Care Team (Late st Contact Info) Description 02/24/2022 Telephone Hematology/Oncology at [address] [phone] Earlene Casas RN New Medication [...] The caregiver: ?? filled the prescription at [facility] and began taking this medication on [...] filedocumented in this encounter Care Teams Utility Locator Relationship Specialty Start Date End Date Yoni Ramírez MD [address] [place] [address] PCP - General 07/05/10 documented as of this encounter
--- OUTSIDE RECORDS SUMMARY | 2024-09-23 11:33 | XMS_ITS | Encounter Summary ---
[place] [address] Care Team Providers Care Religious Healer Name Role Phone Yoni Ramírez MD Primary Care Provider [phone] Reason for Referral * Diagnostic Test (Routine) - Closed Specialty Diagnoses / Procedures Referred By Jeffersonac t Referred To Contact Radiology Diagnoses Malignant neoplasm of prostate Procedures MRI Pelvis wo (Prostate) Yariel Ernandez MD [address] [place] [address] [place] [address] [place] [address] Referral ID Status Reason Start Date Expiration Date V isits Requested Visits Authorized [id number] Closed Specialty Service Requested 04/14/2022 10/13/2023 1 1 Reason for Visit * Diagnostic Test (Routine) - Closed Specialty Diagnoses / Procedures Referred By Contac t Referred To Contact Radiology Diagnoses Malignant neoplasm of prostate Procedures MRI Pelvis wo (Prostate) Yariel Ernandez MD [address] [place] [address] [place] [address] [place] [address] Referral ID Status Reason Start Date Expiration Date V isits Requested Visits Authorized [id number] Closed Specialty Service Requested 04/14/2022 10/13/2023 1 1 Encounter Details Date Type Department Care Team (Latest Contact Info) Description 05/02/2022 6:08 PM EDT - 05/02/2022 11:59 PM EDT Hospital Encounter MRI at [facility] [place] [address] Yariel Ernandez MD [address] [place] [address] [place] [address] Malignant neoplasm of prostate Discharge Disposition: Home [...] mEq Tablet Sustained Release daily as needed. atorvastatin (Lipitor) 20 mg Tablet TAKE ONE TABLET BY MOUTH EVERY EVENING 08/24/2021 ondansetron (ZOFRAN-ODT) 4 mg Tablet, Rapid Dissolve Take 4 mg by mouth every 8 hours as needed for Nausea. naloxone (Narcan) 4 mg/actuation [place], Non-Aerosol Narcan 4 mg/actuation nasal spray Take 1 spray as needed by nasal route. 04/07/2020 acetaminophen (TYLENOL) 500 mg Tablet Take 2 tablets by mouth every 6 hours as needed for Pain. 09/05/2017 clonazePAM (KlonoPIN) 1 mg Tablet TAKE 1 [...] who have questions please contact the health senior care provider that requested your imaging first. ? Narrative [...] patients who have questions please contactthe health senior care provider that requested your imaging first. Yariel Ernandez MD IMG MRI ORDERABLES documented in this encounter Visit Diagnoses Diagnosis Malignant neoplasm of prostate documented in this encounter Care Teams Religious Healer Relationship Specialty Start Date End Date Yoni Ramírez MD [address] [place] [phone] PCP - General 07/05/10 documented as of this encounter
--- OUTSIDE RECORDS SUMMARY | 2024-09-23 11:33 | XMS_ITS | Encounter Summary ---
Author Organization [facility] [place] [address] Care Team Providers Care Business Continuity Strategy Director Name Role Phone Yoni Ramírez MD Primary Care Provider [phone] Encounter Details Date Type Department Care Team (Late st Contact Info) Description 06/23/2022 2:30 PM EST Office Visit Radiation Oncology at [address] [phone] Yariel Ernandez MD [address] [place] [address] DR RADIATION ONCOLOGY [place], [place] [id number] Malignant neoplasm of prostate Social History Tobacco [...] from the original note were not included. [facility] Radiation Oncology Radiation Oncology On-treatment Visit [...] 10 mg Tablet naloxone (Narcan) 4 mg/actuation [place], Non-Aerosol Narcan 4 mg/actuation nasal spray Take [...] placed in this encounter. ??? National Cancer [employer] (NCI) Comprehensive Cancer Center ??? [place] [employer] Commission on Cancer (ACS Benjamin) Accredited Cancer Program ??? [employer] (ACR) Accredited Radiation Oncology Program documented in this encounter Plan of Treatment Not on file documented as of this encounter Visit Diagnoses Diagnosis Malignant neoplasm of prostate documented in this encounter Care Teams Business Continuity Strategy Director Relationship Specialty Start Date End Date Yoni Ramírez MD [address] [place] [address] PCP - General 07/05/10 documented as of this encounter
--- OUTSIDE RECORDS SUMMARY | 2024-09-23 11:33 | XMS_ITS | Encounter Summary ---
Author Organization [facility] [place] [address] Care Team Providers Care Refinery Superintendent Name Role Phone Yoni Ramírez MD Primary Care Provider [phone] Reason for Visit * Reason Onset Date Comments Appointment 06/16/2022 Encounter Details Date Type Department Care Team (Late st Contact Info) Description 06/16/2022 Telephone Radiation Oncology at [address] [phone] Geovani Handy, RN Appointment Social [...] not here as he was admitted to [facility] on 06/14 for observation and was just [...] to treatment on Sunday. Call placed to [facility] medical records to request records from recent visit. documented in this encounter Plan of Treatment Not on file documented as of this encounter Visit Diagnoses Not on filedocumented in this encounter Care Teams Refinery Superintendent Relationship Specialty Start Date End Date Yoni Ramírez MD [address] [place] [address] PCP - General 07/05/10 documented as of this encounter
--- OUTSIDE RECORDS SUMMARY | 2024-09-23 11:33 | XMS_ITS | Encounter Summary ---
Author Organization [facility] Address [facility] [place] [address] Care Team Providers Care Mail Messenger Name Role Phone Yoni Ramírez MD Primary Care Provider Encounter Details Date Type Department Care Team (Late st Contact Info) Description 06/06/2022 3:30 PM EDT Office Visit Hematology/Oncology at [address] [phone] Deyvi Ibrahim MD [facility] DR HEMATOLOG[place] [address] Prostate cancer metastatic to intrapelvic lymph node; [...] were not included. Diagnosis: Prostatic adenocarcinoma, 4, Cascade 4+4, with pelvic lymph node metastases PSA [...] was consistent with prostatic adenocarcinoma grade 4, C[place] 4+4 He complains of low back pain [...] Suboxone [Buprenorphine-Naloxone] Hives ??? Lexapro [Escitalopram] Hives [place] odd Medications: Your Medications Accurate as of [...] 4 mg Refills: 0 naloxone 4 mg/actuation [place] Commonly known as: Narcan Narcan 4 mg/actuation [...] transurethral resection: ?Prostatic adenocarcinoma, grade group 4, [place] ? grade 4+4, involving 100% of the [...] and Plan: Diagnosis: Prostatic adenocarcinoma, grade 4, [place] 4+4, metastatic to regional lymph nodes Treatment: [...] He would like to be treated at [facility] close to his home. 12/27/21 PSMA [...] Mr. Arreguin would like to discuss with high school social studies tutor. Plan: 1. Lupron 22.5 mg every 3 [...] monitoring documented in this encounter Care Teams Mail Messenger Relationship Specialty Start Date End Date Yoni Ramírez MD [address] [place] [address] PCP - General 07/05/10 documented as of this encounter
--- OUTSIDE RECORDS SUMMARY | 2024-09-23 11:33 | XMS_ITS | Encounter Summary ---
[place] [address] Care Team Providers Care Life Skills Coordinator Name Role Phone Yoni Ramírez MD Primary Care Provider [phone] Reason for Referral * Consultation (Routine) - Closed Specialty Diagnoses / Procedures Referred By Contac t Referred To Contact Radiation Oncology Diagnoses Malignant neoplasm of prostate Procedures Simulation for Radiation Therapy Planning Mikey Ernandez MD [address] [place] [address] [place] [address] [facility] Onc Office [address] [place] [phone] Referral ID Status Reason Start Date Expiration Date V isits Requested Visits Authorized [id number] Closed Consult, Test & Treat 05/02/2022 08/12/2022 44 44 * Diagnostic Test (Routine) - Closed Specialty Diagnoses / Procedures Referred By Contac t Referred To Contact Radiology Diagnoses Malignant neoplasm of prostate Procedures MRI Pelvis wo (Prostate) Mikey Ernandez MD [address] [place] [address] [place] [address] [place] [address] Referral ID Status Reason Start Date Expiration Date V isits Requested Visits Authorized [id number] Closed Specialty Service Requested 04/14/2022 10/13/2023 1 1 Reason for Visit * Consultation (Routine) - Closed Specialty Diagnoses / Procedures Referred By Guillermo beckham Referred To Contact Radiation Oncology Diagnoses Malignant neoplasm of prostate Deyvi Ibrahim MD [facility] DR [place] [address] [facility] Rad Onc Treatment [address] [place] [phone] Referral ID Status Reason Start Date Expiration Date V isits Requested Visits Authorized [id number] Closed Consult, Test & Treat 12/27/2021 12/27/2022 1 1 Encounter Details Date Type Department Care Team (Late st Contact Info) Description 04/14/2022 9:00 AM EDT Office Visit Radiation Oncology at [address] [phone] Mikey Ernandez MD [address] [place] [address] [place] [address] Malignant neoplasm of prostate Social [...] of completion radiation. 6. SIDE EFFECTS - Walnut Dehydrator Operator: These can include be permanent damage of the radiated tissues, including the rectum/bowel, bladder, prostate and surrounding tissues. Potential serious injury is rare, but can include poor wound healing, bleeding, or destruction of healthy tissue that may require surgery to repair and may result in a colostomy (bag for defecation) or urostomy (bag for urination). There may be a slow, chcf decrease in your sexual function as well, [...] do not hesitate to call me at [phone] with any other questions or concerns you have. IfI am not here, one of our radiation oncology nurses can assist you or help you get in touch with me. A Radiation Oncology doctor is also furs salesperson after our normal hours and on weekends for urgent questions or concerns related to radiation treatments that can not wait until normal business hours. To reach the on-call doctor after-hours, just call and have the coal dumping equipment operator page the Radiation Oncologist furs salesperson. And, as always, if you experience any [...] Cancer Consult Note Mikey Ernandez MD, MS [facility] [phone] PATIENT IDENTIFICATION: PATIENT NAME: Jeff Arreguin DATE [...] urination) Prior consultations / recommendations: Dr Enamorado [facility] - 05/09/21 - - IPSS 28.5. - [...] 1.57) performed by Karishma Maurer MD at [facility] MAIN OR ??? PRO DIL URETHRA STRIC, MALE, GEN ANESTH N/A 10/20/2021 URETHRAL DILATION STRICTURE, MALE; GENERAL OR SPINAL ANESTHESIA (WRVU 1.28) performed by Ino Enamorado MD at [facility] MAIN OR ??? PRO ERCP,DIAGNOSTIC 08/22/2013 ERCP performed by Duane Garcia MD at [facility] ENDOSCOPY ??? PRO EXPLORE PARATHYROID GLANDS N/A 09/04/2017 PARATHYROIDECTOMY OR EXPLORATION OF PARATHYROID(S) (WRVU 15.6) performed by Karishma Maurer MD at [facility] MAIN OR ??? PRO LASER VAPORIZATION SURGERY PROSTATE, COMPLETE N/A 10/20/2021 CYSTO, LASER TURP (WRVU 12.15) performed by Ino Enamorado MD at [facility] MAIN OR ??? PRO TRANSURETHRAL RESEC BLADDER NECK N/A 10/20/2021 CYSTO, TRANSURETHRAL RESECTION BLADDER NECK (WRVU 8.14) performed by Ino Enamorado MD at [facility] MAIN OR ??? TONSILLECTOMY CONTRAINDICATIONS TO [...] needed forNausea. Yes naloxone (Narcan) 4 mg/actuation [place], Non-Aerosol Narcan 4 mg/actuation nasal spray Take 1 spray as needed by nasal route. acetaminophen (TYLENOL) 500 mg Tablet Take 2 tablets by mouth every 6 hours as needed for Pain. Patient not taking: No sig reported Allergies Allergen Reactions ??? Ephedrine Anxiety ??? Suboxone [Buprenorphine-Naloxone] Hives ??? Lexapro [Escitalopram] Hives [place] odd SOCIAL HISTORY: [place]: [place], [place] Living Situation: With Lianna Transit time to [facility]: 45 mins Employment history: Retired / on disability Previously worked for [employer] Smoking: Quit 20yrs Alcohol Denies Illicits: Denies [...] with shorter courses of RT. 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 [...] to treatment: Cyclical Nausea and Vomiting Referrals/Interventions: scale assembly set up worker visit on SIM day per routine. RADIATION SPECIFIC TEACHING:Will provide the following information on simulation day [facility]iation Therapy and You Site specific teaching : Other: PLAN: Per Answers for HPI/ROS submitted by the patient on 04/13/2022 Distress: 7 documented in this encounter Plan of Treatment Scheduled Orders Name Type Priority Associated Diagnoses Orde r Schedule Simulation for Radiation Therapy Planning Procedures Routine Malignant neoplasm of prostate Ordered: 04/14/2022 documented as of this encounter Results * [...] who have questions please contact the health lpn care manager that requested your imaging first. ? Narrative [...] patients who have questions please contactthe health lpn care manager that requested your imaging first. Mikey Ernandez MD IMG MRI ORDERABLES documented in this encounter Visit Diagnoses Diagnosis Malignant neoplasm of prostate Malignant neoplasm of prostate documented in this encounter Care Teams Life Skills Coordinator Relationship Specialty Start Date End Date Yoni Ramírez MD [address] [place] [address] PCP - General 07/05/10 documented as of this encounter
--- OUTSIDE RECORDS SUMMARY | 2024-09-23 11:33 | XMS_ITS | Encounter Summary ---
Author Organization [facility] [place] [address] Care Team Providers Care Integration Consultant Name Role Phone Yoni Ramírez MD Primary Care Provider [phone] Reason for Visit * Reason Onset Date Comments Other 07/18/2022 Called to resche dule Encounter Details Date Type Department Care Team (Late st Contact Info) Description 07/18/2022 Telephone Hematology/Oncology at [address] [phone] Earlene Casas, TODD Other (Called [...] come in early for appointment today at [facility]. Left message on his and 's mobile phones. Called pcp office and they have not heard from him since 07/04/22. If they do they will call us. Pt not at [facility]. Provider updated documented in this encounter Plan of Treatment Not on file documented as of this encounter Visit Diagnoses Not on filedocumented in this encounter Care Teams Integration Consultant Relationship Specialty Start Date End Date Yoni Ramírez MD [address] [place] [address] PCP - General 07/05/10 documented as of this encounter
--- OUTSIDE RECORDS SUMMARY | 2024-09-23 11:33 | XMS_ITS | Encounter Summary ---
Author Organization [facility]ly [facility] [place] [address] Care Team Providers Care Can Conveyor Feeder Name Role Phone Yoni Ramírez MD Primary Care Provider Encounter Details Date Type Department Care Team (Late st Contact Info) Description 02/24/2022 Telephone Radiation Oncology at [address] [phone] Saima Fuentes Social History Tobacco [...] in a nursing home (including now)? No 02/18/2022 Sex and [...] on filedocumented in this encounter Care Teams Can Conveyor Feeder Relationship Specialty Start Date End Date Yoni Ramírez MD [address] [place] [address] PCP - General 07/05/10 documented as of this encounter
--- OUTSIDE RECORDS SUMMARY | 2024-09-23 11:33 | XMS_ITS | Encounter Summary ---
Author Organization [facility] [place] [address] Care Team Providers Care Control Room Operator Name Role Phone Yoni Ramírez MD Primary Care Provider Encounter Details Date Type Department Care Team (Late st Contact Info) Description 06/29/2022 2:30 PM EST Office Visit Radiation Oncology at [address] [phone] Yariel Ernandez MD [address] [place] [address] DR RADIATION ONCOLOGY [place], [place] [id number] Malignant neoplasm of prostate Social History Tobacco [...] original note were not included. [facility] Medicine Radiation Oncology Radiation Oncology On-treatment Visit [...] to bed or chair Medications Medications 06/23/22 3657 Medication Sig Taking? amitriptyline (Elavil) 10 mg [...] daily as needed. naloxone (Narcan) 4 mg/actuation [place], Non-Aerosol Narcan 4 mg/actuation nasal spray Take [...] placed in this encounter. ??? National Cancer [place] (NCI) [facility] ??? [employer] Commission on Cancer (ACS Benjamin) Accredited Cancer Program ??? [employer] (ACR) Accredited Radiation Oncology Program documented in this encounter Plan of Treatment Not on file documented as of this encounter Visit Diagnoses Diagnosis Malignant neoplasm of prostate documented in this encounter Care Teams Control Room Operator Relationship Specialty Start Date End Date Yoni Ramírez MD [address] [place] [address] PCP - General 07/05/10 documented as of this encounter
--- OUTSIDE RECORDS SUMMARY | 2024-09-23 11:33 | XMS_ITS | Encounter Summary ---
Author Organization [facility] [place] [address] Care Team Providers Care Second Floor Operator Name Role Phone Yoni Ramírez MD Primary Care Provider [phone] Reason for Visit * Reason Comments Prior Authorization Abiraterone acetate 250 mg tablets Encounter Details Date Type Department Care Team (Late st Contact Info) Description 02/01/2022 Specialty [place] [phone] Lashay Travis Social History Tobacco Use Types [...] Jeff Arreguin Patient : 1965 Patient Address: [address] [place] [phone] Phone: [phone] (home) Medication Name: ABIRATERONE 250 MG TABLET Medication ID: [id number] Subscriber Insurance: [employer] Subscriber Insurance Comment: Fax: Physician: HESHAM BENJAMIN Physician Comment: Sent Via: Perez: [id number] Ref/Case/PA#: [id number] Medication Strength Frequency Requested: Take 4 tablets by mouth daily. Qty/Day Supply: 120/30 New Start: New to Therapy Diagnosis & ICD-10 Code: Malignant neoplasm of prostate (C61) Patient Notified: No Submission Notes: Carolynn Travis 02/01/22 11:40 AM * Lashay Travis - 02/01/2022 11:38 AM EDT [facility], Prior Authorization Approval Medication Name: ABIRATERONE 250 MG TABLET Medication ID: [id number] Approval Dates: 01/02/2022 to 01/31/2025 Case/Reference #: [id number] Approval notification Received via: Fax Copay: $1585.99 Copay assistance: Patient Assistance Referral Copay Notes: BLACK approved- $1585.99 copay for 30 day supply, no open grants for prostate cancer. Please send Rx to [facility] for internal financial assistance program. Fillable at [facility]: Yes Lashay Travis 02/01/22 1:56 PM documented in this encounter Plan of Treatment Not on file documented as of this encounter Visit Diagnoses Not on filedocumented in this encounter Care Teams Second Floor Operator Relationship Specialty Start Date End Date Yoni Ramírez MD [address] [place] [address] PCP - General 07/05/10 documented as of this encounter
--- OUTSIDE RECORDS SUMMARY | 2024-09-23 11:33 | XMS_ITS | Encounter Summary ---
Author Organization [facility] [place] [address] Care Team Providers Care General Intern Name Role Phone Yoni Ramírez MD Primary Care Provider [phone] Encounter Details Date Type Department Care Team (Late st Contact Info) Description 07/13/2022 2:25 PM EST Office Visit Radiation Oncology at [address] [phone] Arthur Cano Jr., MD [facility] [place] [address] Malignant neoplasm of prostate Social History Tobacco [...] from the original note were not included. [facility] Medicine Radiation Oncology Radiation Oncology [...] daily as needed. naloxone (Narcan) 4 mg/actuation [place], Non-Aerosol Narcan 4 mg/actuation nasal spray Take [...] placed in this encounter. ??? National Cancer [place] (NCI) Comprehensive Cancer Center ??? [employer] Commission on Cancer (ACS Benjamin) Accredited Cancer Program ??? [employer] (ACR) Accredited Radiation Oncology Program Arthur Cano Jr, MD Prof. & Chief, Radiation Oncology documented in this encounter Plan of Treatment Not on file documented as of this encounter Visit Diagnoses Diagnosis Malignant neoplasm of prostate documented in this encounter Care Teams General Intern Relationship Specialty Start Date End Date Yoni Ramírez MD [address] [place] [address] PCP - General 07/05/10 documented as of this encounter
--- OUTSIDE RECORDS SUMMARY | 2024-09-23 11:33 | XMS_ITS | Encounter Summary ---
Author Organization [facility] Address [facility] [place] [address] Care Team Providers Care Tower Watchman Name Role Phone Yoni Ramírez MD Primary Care Provider [phone] Encounter Details Date Type Department Care Team [...] on filedocumented in this encounter Care Teams Tower Watchman Relationship Specialty Start Date End Date Yoni Ramírez MD [address] [place] [address] PCP - General 07/05/10 documented as of this encounter
--- OUTSIDE RECORDS SUMMARY | 2024-09-23 11:33 | XMS_ITS | Encounter Summary ---
Author Organization [facility] [place] [address] Care Team Providers Care Lithographic Photographer Apprentice Name Role Phone Yoni Ramírez MD Primary Care Provider Encounter Details Date Type Department Care Team (Late st Contact Info) Description 05/30/2022 Telephone Radiation Oncology at [address] [phone] Geovani Handy RN Social History [...] Ibrahim MD to Yariel Ernandez MD ??? [facility] Chemo Triage ??? Earlene Casas, TODD ??? Tia Tam MD ?? 05/29/22 4:46 PM Thanks Deyvi Jerome Nursing: Please call the patinet and ask to hold abiraterone and prednsione ??until he sees us ??with /25. Thank you, Deyvi ?? Yariel Ernandez MD to [facility] Rad Onc Nurse ??? Tia Tam MD ??? Deyvi Ibrahim MD ?? 05/29/22 11:44 AM Yes but I h ave CCed Dr Ibrahim in case adjustment or holding zytiga is necessary given recent admission for n/v, dehydration and acute kidney injury (now resolved s/p hydration) Jamila Peralta, RN to Yariel Ernandez MD ??? Tia Tam MD ?? 05/29/22 9:26 AM Ok for patient to resume xrt? Jamila dRz RN ?? 05/29/22 9:26 AM Note Background: Please see [facility] discharge information filed in Media section of chart. ?? Left message on [facility] voice mail with request for call back with status update documented in this encounter Plan of Treatment Not on file documented as of this encounter Visit Diagnoses Not on filedocumented in this encounter Care Teams Lithographic Photographer Apprentice Relationship Specialty Start Date End Date Yoni Ramírez MD [address] [address] PCP - General 07/05/10 documented as of this encounter
--- OUTSIDE RECORDS SUMMARY | 2024-09-23 11:33 | XMS_ITS | Encounter Summary ---
Author Organization [facility] [place] [address] Care Team Providers Care Mangle Press Catcher Name Role Phone Yoni Ramírez MD Primary Care Provider Encounter Details Date Type Department Care Team (Late st Contact Info) Description 06/19/2022 Notes Only Radiation Oncology at [address] [phone] Jamila Rdz, RN Social History [...] for prostate cancer. Has been hospitalized at [facility] for severe N/V and dehydration which led to acute kidney failure. Please see [facility] medical records which are filed in Media [...] on filedocumented in this encounter Care Teams Mangle Press Catcher Relationship Specialty Start Date End Date Yoni Ramírez MD [address] [address] PCP - General 07/05/10 documented as of this encounter
--- OUTSIDE RECORDS SUMMARY | 2024-09-23 11:33 | XMS_ITS | Encounter Summary ---
Author Organization [facility] Address [facility] [place] [address] Care Team Providers Care English Adjunct Faculty Name Role Phone Yoni Ramírez MD Primary Care Provider [phone] Encounter Details Date Type Department Care Team [...] on filedocumented in this encounter Care Teams English Adjunct Faculty Relationship Specialty Start Date End Date Yoni Ramírez MD [address] [place] [address] PCP - General 07/05/10 documented as of this encounter
--- OUTSIDE RECORDS SUMMARY | 2024-09-23 11:33 | XMS_ITS | Encounter Summary ---
Author Organization [facility] [place] [address] Care Team Providers Care Title Camera Operator Name Role Phone Yoni Ramírez MD Primary Care Provider [phone] Reason for Visit * Reason Onset Date Comments Other 05/29/2022 Hold abiraterone Encounter Details Date Type Department Care Team (Late st Contact Info) Description 05/29/2022 Telephone Hematology/Oncology at [address] [phone] Earlene Casas, TODD Other (Hold [...] on filedocumented in this encounter Care Teams Title Camera Operator Relationship Specialty Start Date End Date Yoni Ramírez MD [address] [place] [address] PCP - General 07/05/10 documented as of this encounter
--- OUTSIDE RECORDS SUMMARY | 2024-09-23 11:33 | XMS_ITS | Encounter Summary ---
Author Organization [facility] Address [facility] [place] [address] Care Team Providers Care Seafood Farmer Name Role Phone Yoni Ramírez MD Primary Care Provider [phone] Encounter Details Date Type Department Care Team [...] on filedocumented in this encounter Care Teams Seafood Farmer Relationship Specialty Start Date End Date Yoni Ramírez MD [address] [place] [address] PCP - General 07/05/10 documented as of this encounter
--- OUTSIDE RECORDS SUMMARY | 2024-09-23 11:34 | XMS_ITS | Encounter Summary ---
Author Organization [facility] [place] [address] Care Team Providers Care Lining Setter Name Role Phone Yoni Ramírez MD Primary Care Provider [phone] Encounter Details Date Type Department Care Team (Late st Contact Info) Description 10/12/2021 11:20 AM EST TH Visit (TeleHealth) [place] [address] Ino Enamorado MD [facility] [place] [address] Urinary retention Social History Tobacco Use Types [...] Diagnosis Urinary retention Retention of urine, unspecified documented in this encounter Care Teams Lining Setter Relationship Specialty Start Date End Date Yoni Ramírez MD [address] [place] [address] PCP - General 07/05/10 documented as of this encounter
--- OUTSIDE RECORDS SUMMARY | 2024-09-23 11:34 | XMS_ITS | Encounter Summary ---
[place] [address] Care Team Providers Care Diving Judge Name Role Phone Yoni Ramírez MD Primary Care Provider Reason for Referral * Diagnostic Test (Routine) - Closed Specialty Diagnoses / Procedures Referred By Contac t Referred To Contact Radiology Diagnoses Benign prostatic hyperplasia, unspecified whether lower urinary tract symptoms present Procedures MRI Pelvis wwo (Prostate) Aguila Altman MD [address] [place] [address] [place] [address] Referral ID Status Reason Start Date Expiration Date V isits Requested Visits Authorized [id number] Closed Specialty Service Requested 10/04/2021 04/03/2023 1 1 Reason for Visit * Diagnostic Test (Routine) - Closed Specialty Diagnoses / Procedures Referred By Contac t Referred To Contact Radiology Diagnoses Benign prostatic hyperplasia, unspecified whether lower urinary tract symptoms present Procedures MRI Pelvis wwo (Prostate) Aguila Altman MD [address] [place] [address] [place] [address] Referral ID Status Reason Start Date Expiration Date V isits Requested Visits Authorized [id number] Closed Specialty Service Requested 10/04/2021 04/03/2023 1 1 Encounter Details Date Type Department Care Team (Late st Contact Info) Description 10/27/2021 5:24 PM EDT - 10/27/2021 11:59 PM EDT Hospital [place] [address] Aguila Altman MD [address] [place] [address] Benign prostatic hyperplasia, unspecified whether lower urinary [...] slept in a custodial (including now)? No 10/26/2021 Sex and Gender [...] needed for Nausea. naloxone (Narcan) 4 mg/actuation [place], Non-Aerosol Narcan 4 mg/actuation nasal spray Take 1 spray as needed by nasal route. 04/07/2020 acetaminophen (TYLENOL) 500 mg Tablet Take 2 tablets by mouth every 6 hours as needed for Pain. 09/05/2017 oxyCODONE (Roxicodone) 5 mg Tablet Take 1 [...] M1, Gold S1, Castañeda G1, Rayn K1, Marr MJ1, Wood BJ1, Owen PA1, Ronni PL1, Mark B1. ??A Grading System for the Assessment of Risk of Extraprostatic Extension of Prostate Cancer at Multiparametric MRI. Radiology. 2019 Mar;290(3):701-717. doi: 10.1148/radiol.8580743424. Epub 2018Sep 03. Thank you for letting us participate in the care of this patient. ??If you are a health care provider and have any questions regarding this report, please contact the number below. ??For patients who have questions please contact the health career resource specialist that requested your imaging first. ? Electronically signed by: Ugo Hua MD, [facility] ([phone]), at 10/28/2021 1:24 PM Narrative 10/28/2021 1:24 PM EDT EXAMINATION: MRI [...] G1, Rayn K1, Tejinder MJ1, Sarbjit BJ1, Owen PA1, Ronni PL1, Mark B1.A Grading System for the Assessment of Risk of Extraprostatic Extension of Prostate Cancer at Multiparametric MRI. Radiology. 2019Mar;290(3):709-719. doi: 10.1148/radiol.1745988385. Epub 2018Sep 03. Thank you for letting us participate in the care of this patient. If youare a health care provider and have any questions regarding this report,please contact the number below. For patients who have questions please contactthe health career resource specialist that requested your imaging first. Aguila Altman MD [facility] MRI ORDERABLES documented in this encounter Visit Diagnoses Diagnosis Benign prostatic hyperplasia, unspecified whether lower urinary tract symptoms present documented in this encounter Administered Medications Inactive [...] mLs documented in this encounter Care Teams Diving Judge Relationship Specialty Start Date End Date Yoni Ramírez MD [address] [place] [address] PCP - General 07/05/10 documented as of this encounter
--- OUTSIDE RECORDS SUMMARY | 2024-09-23 11:34 | XMS_ITS | Encounter Summary ---
Author Organization [facility] [place] [address] Care Team Providers Care Cloth Bin Packer Name Role Phone Yoni Ramírez MD Primary Care Provider [phone] Reason for Visit * Reason Onset Date Comments Follow-up 11/08/2021 Encounter Details Date Type Department Care Team (Late st Contact Info) Description 11/08/2021 Telephone Hematology/Oncology at [address] [address] Manav Dexter, RN Follow-up Social [...] them a call to check in at [phone]? documented in this encounter Plan of Treatment Not on file documented as of this encounter Visit Diagnoses Not on filedocumented in this encounter Care Teams Cloth Bin Packer Relationship Specialty Start Date End Date Yoni Ramírez MD [address] [place] [address] PCP - General 07/05/10 documented as of this encounter
--- OUTSIDE RECORDS SUMMARY | 2024-09-23 11:34 | XMS_ITS | Encounter Summary ---
Author Organization [facility] [place] [address] Care Team Providers Care Software Engineering Analyst Name Role Phone Yoni Ramírez MD Primary Care Provider [phone] Encounter Details Date Type Department Care Team (Late st Contact Info) Description 11/30/2021 Telephone Hematology/Oncology at [address] [phone] Saima Fuentes Social History Tobacco [...] in a long term (including now)? No 10/26/2021 Sex and Gender [...] past few weeks and ended up at [facility] ED on Sunday for nausea and vomiting. He is back home and resting. Due to the circumstances, he missed his CT/Bone Scan scheduled at [facility] on 11/25. Lianna plans to call [facility] RAD today to get him rescheduled. We will plan to touch [facility] to reschedule his FUV and INFR once [...] on filedocumented in this encounter Care Teams Software Engineering Analyst Relationship Specialty Start Date End Date Yoni Ramírez MD [address] [place] [address] PCP - General 07/05/10 documented as of this encounter
--- OUTSIDE RECORDS SUMMARY | 2024-09-23 11:34 | XMS_ITS | Encounter Summary ---
Author Organization [facility] [place] [address] Care Team Providers Care Forensic Technician Name Role Phone Yoni Ramírez MD Primary Care Provider [phone] Reason for Visit * Reason Comments Injections IM lupron * Treatment/Therapy Plan Authorization (Routine) - Authorized Specialty Diagnoses / Procedures Referred By Contac t Referred To Contact Hematology and Oncology Diagnoses Malignant neoplasm of prostate Procedures TC LEUPROLIDE ACETATE 7.5MG, FOR DEPOST SUSPENSION (LUPRON DEPOT) [id number] LUPRON DEPOT Deyvi Ibrahim MD [address] [place] [address] [place] [address] Deyvi Ibrahim MD [address] [place] [address] DR [place] [address] Referral ID Status Reason Start Date Expiration Date V isits Requested Visits Authorized [id number] Authorized 08/13/2022 03/12/2024 99 99 Encounter Details Date Type Department Care Team (Late st Contact Info) Description 01/31/2022 1:30 PM EDT Infusion Hematology Oncology at [address] [phone] Malignant neoplasm of prostate Social History Tobacco [...] Gluteal documented in this encounter Care Teams Forensic Technician Relationship Specialty Start Date End Date Ynoi Ramírez MD [address] [place] [address] PCP - General 07/05/10 documented as of this encounter
--- OUTSIDE RECORDS SUMMARY | 2024-09-23 11:34 | XMS_ITS | Encounter Summary ---
Author Organization [facility] [place] [address] Care Team Providers Care Vocational Horticulture Instructor Name Role Phone Yoni Ramírez MD Primary Care Provider [phone] Reason for Visit * Reason Onset Date Comments Other 01/24/2022 Encounter Details Date Type Department Care Team (Late st Contact Info) Description 01/24/2022 Telephone Hematology/Oncology at [address] [phone] Earlene Casas RN Other Social [...] on filedocumented in this encounter Care Teams Vocational Horticulture Instructor Relationship Specialty Start Date End Date Yoni Ramírez MD [address] [place] [address] PCP - General 07/05/10 documented as of this encounter
--- OUTSIDE RECORDS SUMMARY | 2024-09-23 11:34 | XMS_ITS | Encounter Summary ---
Author Organization [facility] [address] Care Team Providers Care Kettle Fry Cook Operator Name Role Phone Yoni Ramírez MD Primary Care Provider [phone] Encounter Details Date Type Department Care Team (Latest Contact Info) Description 12/19/2021 11:03 AM EDT - 12/19/2021 11:44 AM EDT Hospital Encounter Hematology [place] [address] Discharge Disposition: Home Social History Tobacco Use [...] in a skilled nursing (including now)? No 10/26/2021 Sex and Gender [...] needed for Nausea. naloxone (Narcan) 4 mg/actuation [place], Non-Aerosol Narcan 4 mg/actuation nasal spray Take [...] on filedocumented in this encounter Care Teams Kettle Fry Cook Operator Relationship Specialty Start Date End Date Yoni Ramírez MD [address] [place] [address] PCP - General 07/05/10 documented as of this encounter
--- OUTSIDE RECORDS SUMMARY | 2024-09-23 11:34 | XMS_ITS | Encounter Summary ---
Author Organization [facility] Address [facility] [place] [address] Care Team Providers Care Toll Line Repairer Name Role Phone Yoni Ramírez MD Primary Care Provider [phone] Encounter Details Date Type Department Care Team [...] on filedocumented in this encounter Care Teams Toll Line Repairer Relationship Specialty Start Date End Date Yoni Ramírez MD [address] [place] [address] PCP - General 07/05/10 documented as of this encounter
--- OUTSIDE RECORDS SUMMARY | 2024-09-23 11:34 | XMS_ITS | Encounter Summary ---
Author Organization [facility] [place] [address] Care Team Providers Care Research And Development Researcher Name Role Phone Yoni Ramírez MD Primary Care Provider [phone] Reason for Visit * Reason Onset Date Comments Other 11/03/2021 Financial resour kathe Encounter Details Date Type Department Care Team (Late st Contact Info) Description 11/03/2021 Telephone Hematology/Oncology at [address] [phone] Makenna Sorto, [facility] OFFICE OF CARE MANAGEMENT Other (Financial resources) [...] * Telephone Encounter - Makenna Sorto Silke, AGRICULTURAL ECONOMICS PROFESSOR - 11/03/2021 2:18 PM EDT Message received to reach out to pt/ to discuss their financial concerns. Pt screened +SDOH. TC who reports pt is undergoing tests and scans to develop a treatment plan for his newly diagnosed prostate cancer. He has made multiple trips to [facility] and is expecting additional trips to [facility]. He and his live on his limited income for SSDI. They are having financial hardship in affording gas to travel to his appointments. has reached out to the [employer] and the [employer] V[employer] but both funds need referral from a social work. indicated they were not able to meet with aSW their last trip to [facility]. given my name as a resource. Per request from pt/ AGRICULTURAL ECONOMICS PROFESSOR will make a request to the [place] [employer] ([employer]) for assistance with gas cards. If granted card will be mailed to pt. AGRICULTURAL ECONOMICS PROFESSOR will also reach out to the CPSFV[facility] to make sure pt meets their criteria as he has not started treatment yet. AGRICULTURAL ECONOMICS PROFESSOR will follow up with pt/ after this. [...] on filedocumented in this encounter Care Teams Research And Development Researcher Relationship Specialty Start Date End Date Yoni Ramírez MD [address] [place] [address] PCP - General 07/05/10 documented as of this encounter
--- OUTSIDE RECORDS SUMMARY | 2024-09-23 11:34 | XMS_ITS | Encounter Summary ---
Author Organization [facility] [place] [address] Care Team Providers Care Correctional Guard Name Role Phone Yoni Ramírez MD Primary Care Provider [phone] Reason for Visit * Reason Onset Date Comments Other 11/08/2021 Financial resour kathe Encounter Details Date Type Department Care Team (Late st Contact Info) Description 11/08/2021 Telephone Hematology/Oncology at [address] [phone] Makenna Sorto, [facility] OFFICE OF CARE MANAGEMENT Other (Financial resources) [...] 10:06 AM EDT Received notification from the [facility] that they approved pt's request for [...] already. Pt could make second request to [facility] for $225 but would need a bill from their wood supplier. to call the state as they are expecting another fuel assistance payment. Care Coordination Community Resource documented in this encounter Plan of Treatment Not on file documented as of this encounter Visit Diagnoses Not on filedocumented in this encounter Care Teams Correctional Guard Relationship Specialty Start Date End Date Yoni Ramírez MD [address] [place] [address] PCP - General 07/05/10 documented as of this encounter
--- OUTSIDE RECORDS SUMMARY | 2024-09-23 11:34 | XMS_ITS | Encounter Summary ---
Author Organization [facility] Address [facility] [place] [address] Care Team Providers Care Clipper Counters Name Role Phone Yoni Ramírez MD Primary [...] Expiration Date Visits Re quested Visits Authorized [id number] 1 1 Encounter Details Date Type Department Care Team (Late st Contact Info) Description 10/20/2021 8:30 AM EST - 10/20/2021 10:15 AM EST Surgery Main OR at [address] [phone] Ino Enamorado MD [facility] [place] [address] CYSTO, LASER TURP (WRVU 12.15) Social History [...] needed for Nausea. naloxone (Narcan) 4 mg/actuation [place], Non-Aerosol Narcan 4 mg/actuation nasal spray Take [...] 1.57) performed by Karishma Maurer MD at [facility] MAIN OR ??? PRO ERCP,DIAGNOSTIC 08/22/2013 ERCP performed by Duane Garcia MD at [facility] ENDOSCOPY ??? PRO EXPLORE PARATHYROID GLANDS N/A 09/04/2017 PARATHYROIDECTOMY OR EXPLORATION OF PARATHYROID(S) (WRVU 15.6) performed by Karishma Maurer MD at [facility] MAIN OR ??? TONSILLECTOMY ALLERGIES Allergies Allergen Reactions ??? Ephedrine Anxiety ??? Suboxone [Buprenorphine-Naloxone] Hives ??? Lexapro [Escitalopram] Other (See Comments) [place] odd MEDICATIONS No current facility-administered medications on [...] Segundo MD - 10/20/2021 10:07 AM EST [facility] Brief Operative Note [address] Patient Name: Jeff Arreguin : [id number] MR#: [id number] Case Date: 10/20/2021 Case Scheduled Time: 829 [...] Enamorado MD - 10/20/2021 9:08 AM EST [facility] Operative Note [address] Patient Name: Jeff Arreguin : [id number] MR#: [id number] Case Date: 10/20/2021 Case Scheduled Time: 829 [...] meatus was then sequentially dilated to 30 Turkish using Love sounds. Prostatic anatomy was found to be [...] was removed under direct vision. A 20 Turkish three-way catheter was placed with ease and [...] EST Dil Urethra Stric, Male, Gen Anesth (31462) 10/20/2021 8:40 AM EST Urinary retention Benign prostatic hyperplasia, unspecified whether lower urinary tract symptoms present Transurethral Resec Bladder Neck ([id number]) 10/20/2021 8:40 AM EST Urinary retention Benign prostatic hyperplasia, unspecified whether lower urinary tract symptoms present MODIFIER,GREENLIGHT LASER 10/20/2021 8:40 AM EST Urinary retention Benign prostatic hyperplasia, unspecified whether lower urinary tract symptoms present Laser Vaporization Surgery Prostate, Complete ([id number]) 10/20/2021 8:40 AM EST Urinary retention Benign prostatic hyperplasia, unspecified whether lower urinary tract symptoms present documented in this encounter Results * Specimen to Pathology (10/20/2021 9:49 AM EST) AP Specimen 10/20/2021 9:49 AM EST 10/20/2021 9:49 AM EST Narrative [facility] - 10/20/2021 9:49 AM EST Specimen requisition ordered. ??Separate Pathology report to follow Ino Enamorado MD PATHOLOGY/CYTOLOGY [place] Performing Organization Address [facility] Co de Phone Number [facility] [place] [address] * Solid Tumor NGS Panel (10/20/2021 9:19 AM EST) Tissue 10/20/2021 9:19 AM EST 11/07/2021 12:25 PM EDT Narrative Resulting Agency Comment Spec In Lab Ino Enamorado MD PATHOLOGY/CYTOLOGY [place] Performing Organization Address City/[facility]/ZIP Co de Phone Number [facility] [place] [address] * Surgical Pathology Report (10/20/2021 9:19 AM EST) Final Diagnosis [id number] ? Location: [facility]; [address] The signing pathologist has (i) examined the relevant preparation(s) for the specimen(s) and (ii) rendered or confirmed the diagnosis(es). . ? Immunohistochemistry DIAGNOSIS Prostatic adenocarcinoma with intact nuclear staining for ??MLH1, MSH2, MSH6, and PMS2 in tumor cells. Electronically signed by: ?Richard MAYES, Kirit Díaz Verified: ??11/07/2021 9:48 ?? Pathologist Performed at: ??-[facility] Dept. of Pathology, [place], [place] INTERPRETATION Block ? Antibody ? Result [...] The assay was performed according to the algorithm design engineer's intructions using anti-MLH-1 (ES05), anti-MSH-2 ([id number]), anti-MSH-6 (44), and anti-PMS-2 (MRQ-28) antibodies. ?Surgical Pathology DIAGNOSIS Bladder neck tumor and prostatic tissue, transurethral resection: ? Prostatic adenocarcinoma, grade group 4, [place] ?grade 4+4, involving 100% of the submitted ?tissue. CR-0 Electronically signed by: ?Richard MAYES, Kirit Díaz Verified: ??10/25/2021 11:13 ??Pathologist Performed at: ??-[facility] Dept. of Pathology, [place], [place] DISCUSSION Scanned slides: [id number] [id number] [id number] [id number] ADDITIONAL STUDIES Formalin-fixed, paraffin-embedded tissue sections are studied using the B-SA system technique with appropriate positive and negative controls. Block ? Antibody ?Result (Degree of immunoreactivity) A-1 ?NKX-31 ? Diffuse nuclear immunoreactivity A-1 ?YK18-Icky-V48 ?Negative . ADDITIONAL STUDIES A-1 ?P63 ?Negative [...] labeled A1-A4. pps 11/07/2021 9:48 AM EDT [facility] Urinary Bladder, TUR 10/20/2021 9:19 AM EST 10/20/2021 9:19 AM EST Ino Enamorado MD PATHOLOGY/CYTOLOGY [place] [facility] [place] [address] documented in this encounter Visit Diagnoses Diagnosis [...] Until [place] 10/20/21 at 1055, Alissa Benz: rojasinet override fentaNYL (PF) (50 mcg/mL) injection 25-50 [...] Plus (COMPLETED) 2,000 mg (2 g), Intravenous, FITTER'S ASSISTANT TO O.R., 1 dose, On [place] 10/20/21 [...] mg/kg/dose ? 83.7 kg Adjusted weight), Intravenous, FITTER'S ASSISTANT TO O.R., 1 dose, On Sun10/19/21 at [...] on [place] 10/20/21 at 1038, Until [place] 3 at 1621, Pain, Routine 1359 (Given - Provid er: Tammy Domingo RN) No Frequency Medication Order 10/18/2021 10/19/2021 10/20/2021 sorbitoL-mannitoL 2.7-0.54 gram/100 mL irrigation 1 dose, Starting on [place] 10/20/21 at 0749, Until [place] 10/20/21 at 1621, Ricki Duncan: cabinet override 0800 (Due) documented in this encounter Care Teams Clipper Counters Relationship Specialty Start Date End Date Yoni Ramírez MD [address] [place] [phone] PCP - General 07/05/10 documented as of this encounter
--- OUTSIDE RECORDS SUMMARY | 2024-09-23 11:34 | XMS_ITS | Encounter Summary ---
Author Organization [facility] [place] [address] Care Team Providers Care Mixing Operator Name Role Phone Yoni Ramírez MD Primary Care Provider Encounter Details Date Type Department Care Team (Late st Contact Info) Description 09/23/2021 Orders Only Urology at [place] [facility] [address] [place] [phone] Ino Enamorado MD [facility] [place] [address] Urinary retention; Benign prostatic hyperplasia, unspecified whether [...] as of this encounter Plan of Treatment Scheduled Orders Name Type Priority Associated Diagnoses Orde r Schedule SURGICAL CASE REQUEST: CYSTO, LASER TURP (WRVU 12.15) Procedures Routine Urinary retention Benign prostatic hyperplasia, unspecified whether lower urinary tract symptoms present Ordered: 09/23/2021 documented as of this encounter Visit Diagnoses Diagnosis Urinary retention Retention of urine, unspecified Benign prostatic hyperplasia, unspecified whether lower urinary tract symptoms present documented in this encounter Care Teams Mixing Operator Relationship Specialty Start Date End Date Yoni Ramírez MD [address] [place] [phone] PCP - General 07/05/10 documented as of this encounter
--- OUTSIDE RECORDS SUMMARY | 2024-09-23 11:34 | XMS_ITS | Encounter Summary ---
Author Organization [facility] [place] [address] Care Team Providers Care Windows Administrator Name Role Phone Yoni Ramírez MD Primary Care Provider Encounter Details Date Type Department Care Team (Late st Contact Info) Description 10/13/2021 9:00 AM EST Telephone Pre Admission Testing at [address] [phone] Social History Tobacco Use Types [...] over) Transportation Plan To and From Hospital: ulysses Dsouza documented in this encounter Plan of Treatment Not on file documented as of this encounter Visit Diagnoses Not on filedocumented in this encounter Care Teams Windows Administrator Relationship Specialty Start Date End Date Yoni Ramírez MD [address] [address] PCP - General 07/05/10 documented as of this encounter
--- OUTSIDE RECORDS SUMMARY | 2024-09-23 11:34 | XMS_ITS | Encounter Summary ---
Author Organization [facility] Address [facility] [place] [address] Care Team Providers Care Tube Buffer Name Role Phone Yoni Ramírez MD Primary Care Provider Reason for Referral * Consultation (Routine) - Closed Specialty Diagnoses / Procedures Referred By Contac t Referred To Contact Radiation Oncology Diagnoses Malignant neoplasm of prostate Deyvi Ibrahim MD [facility] [address] [place] [address] Stj Rad Onc Treatment [address] [place] [phone] Referral ID Status Reason Start Date Expiration Date V isits Requested Visits Authorized [id number] Closed Consult, Test & Treat 12/27/2021 12/27/2022 1 1 Reason for Visit * Reason Comments Follow-up Encounter Details Date Type Department Care Team (Late st Contact Info) Description 12/27/2021 1:00 PM EDT Office Visit Hematology/Oncology at [address] [phone] Deyvi Ibrahim MD [facility] [address] [place] [address] Malignant neoplasm of prostate (Primary Dx); Androgen [...] Hives ??? Lexapro [Escitalopram] Other (See Comments) [place] odd Medications: Your Medications Accurate as of [...] 100 mg Refills: 0 naloxone 4 mg/actuation [place] Commonly known as: Narcan Narcan 4 mg/actuation [...] transurethral resection: ?Prostatic adenocarcinoma, grade group 4, [place] ? grade 4+4, involving 100% of the [...] and Plan: Diagnosis: Prostatic adenocarcinoma, grade 4, [place] 4+4, metastatic to regional lymph nodes Treatment: [...] He would like to be treated at [facility] close to his home. 12/27/21 PSMA PET [...] Arreguin would like to discuss with social studies teacher. Plan: 1. Degarelix 240 mg today 2. [...] monitoring documented in this encounter Care Teams Tube Buffer Relationship Specialty Start Date End Date Yoni Ramírze MD [address] [place] [phone] PCP - General 07/05/10 documented as of this encounter
--- OUTSIDE RECORDS SUMMARY | 2024-09-23 11:34 | XMS_ITS | Encounter Summary ---
Author Organization [facility] [place] [address] Care Team Providers Care Ordnance Truck Installation Supervisor Name Role Phone Yoni Ramírez MD [...] Expiration Date Visits Re quested Visits Authorized [id number] 1 1 Encounter Details Date Type Department Care Team (Late st Contact Info) Description 10/20/2021 8:38 AM EST Anesthesia Event Main OR at [address] [phone] Patricia Manley CRNA [address] [place] [address] [place] [address] Chantell Suazo CRNA [address] [place] [address] Anesthesia Record Procedure Summary Procedure Name Responsible [...] 0752; metacarpal vein (top of hand), right; lnee-uck-exfmcz catheter system; Anatomical Landmarks; US Not Used; [...] 1.57) performed by Karishma Maurer MD at [facility] MAIN OR ??? PRO ERCP,DIAGNOSTIC 08/22/2013 ERCP performed by Duane Garcia MD at [facility] ENDOSCOPY ??? PRO EXPLORE PARATHYROID GLANDS N/A 09/04/2017 PARATHYROIDECTOMY OR EXPLORATION OF PARATHYROID(S) (WRVU 15.6) performed by Karishma Maurer MD at [facility] MAIN OR ??? TONSILLECTOMY Social History [...] Anxiety ??? Lexapro [Escitalopram] Other (See Comments) [place] odd Medications: MAR and/or home medications have [...] him anxious. Known Gr II view with [facility]. DOS: Patient reports feeling in their [...] consented to blood products. Plan discussed with CLERICAL AND ADMINISTRATIVE WORKERS. Anesthesia Screening documented in this encounter Plan [...] Mini-Bag Plus 2,000 mg (2 g), Intravenous, VISUAL TRAINING AIDE TO O.R., 1 dose, On [place] 10/20/21 [...] mg/kg/dose ? 83.7 kg Adjusted weight), Intravenous, VISUAL TRAINING AIDE TO O.R., 1 dose, On Sun10/19/21 at [...] (2 mg/mL) injection Intravenous, PRN, Starting on [place] 10/20/21 at 0900, Until [place] 10/20/21 at [...] mg documented in this encounter Care Teams Ordnance Truck Installation Supervisor Relationship Specialty Start Date End Date Yoin Ramírez MD [address] [address] PCP - General 07/05/10 documented as of this encounter
--- OUTSIDE RECORDS SUMMARY | 2024-09-23 11:34 | XMS_ITS | Encounter Summary ---
Author Organization [facility] [place] [address] Care Team Providers Care Cribber Name Role Phone Yoni Ramírez MD Primary Care Provider [phone] Encounter Details Date Type Department Care Team (Late st Contact Info) Description 01/26/2022 Telephone Hematology/Oncology at [address] [phone] Saima Fuentes Social History Tobacco [...] for 01/31 at 1pm, with labs at [facility] one hour prior documented in this encounter Plan of Treatment Not on file documented as of this encounter Visit Diagnoses Not on filedocumented in this encounter Care Teams Cribber Relationship Specialty Start Date End Date Yoni Ramírez MD [address] [place] [phone] PCP - General 07/05/10 documented as of this encounter
--- OUTSIDE RECORDS SUMMARY | 2024-09-23 11:34 | XMS_ITS | Encounter Summary ---
Author Organization [facility] [place] [address] Care Team Providers Care Accelerator Operator Name Role Phone Yoni Ramírez MD Primary Care Provider Encounter Details Date Type Department Care Team (Late st Contact Info) Description 09/28/2021 Telephone Urology at [facility] [place] [phone] Ino Enamorado MD [facility] [place] [address] Social History Tobacco Use Types Packs/Day Years [...] vm for pt to call back for [facility]. Hold for surgery on 10/20 Thank you Jaimie documented in this encounter Plan of Treatment Not on file documented as of this encounter Visit Diagnoses Not on filedocumented in this encounter Care Teams Accelerator Operator Relationship Specialty Start Date End Date Yoni Ramírez MD [address] [place] [phone] PCP - General 07/05/10 documented as of this encounter
--- OUTSIDE RECORDS SUMMARY | 2024-09-23 11:34 | XMS_ITS | Encounter Summary ---
Author Organization [facility] [place] [address] Care Team Providers Care Supply Chain Specialist Name Role Phone Yoni Ramírez MD Primary Care Provider [phone] Encounter Details Date Type Department Care Team (Late st Contact Info) Description 12/20/2021 Telephone Hematology/Oncology at [address] [phone] Earlene Casas RN Social History [...] to [address] Ibrahim. Galva called and left message on voice mail. [...] on filedocumented in this encounter Care Teams Supply Chain Specialist Relationship Specialty Start Date End Date Yoni Ramírez MD [address] [place] [phone] PCP - General 07/05/10 documented as of this encounter
--- OUTSIDE RECORDS SUMMARY | 2024-09-23 11:34 | XMS_ITS | Encounter Summary ---
[place] [address] Care Team Providers Care Popcorn Vendor Name Role Phone Yoni Ramírez MD Primary Care Provider Reason for Referral * Diagnostic Test (Routine) - Closed Specialty Diagnoses / Procedures Referred By Contac t Referred To Contact Radiology Diagnoses Malignant neoplasm of prostate Procedures NM PET CT PSMA Prostate (Pylarify) Deyvi Ibrahim MD [facility] [place] [address] [place] [address] Referral ID Status Reason Start Date Expiration Date V isits Requested Visits Authorized [id number] Closed Specialty Service Requested 11/30/2021 06/01/2023 1 1 Encounter Details Date Type Department Care Team (Late st Contact Info) Description 11/30/2021 Orders Only [place]ematology [place] [phone] Deyvi Ibrahim MD [facility] [place] [address] Malignant neoplasm of prostate (Primary [...] on file documented as of this encounter Results * [...] Thank you for referring this patient to [facility]. I have personally reviewed the [...] who have questions please contact the health care transition mgr that requested your imaging first. ? Electronically signed by: Tyrone Lewis MD, [facility] ([phone]), at 12/19/2021 4:13 PM Narrative 12/19/2021 4:13 PM EDT EXAMINATION: NM PET CT [facility] PROST[facility] CLINICAL HISTORY: Prostate cancer, restaging staging of [...] lymph nodes in the left obturator (axial [id number]) left internal iliac (axial image 282), and [...] Thank you for referring this patient to [facility]. I have personally reviewed the image(s) and the resident's interpretationand agree with the findings, Tyrone Lewis MD at 12/19/2021 4:13 PM Thank you for letting us participate in the care of this patient. If youare a health care provider and have any questions regarding this report,please contact the number below. For patients who have questions please contactthe health care transition mgr that requested your imaging first. Electronically signed by: Tyrone Lewis MD, [facility]([phone]), at 12/19/2021 4:13 PM Deyvi Ibrahim MD IMG PET ORDERABLES documented in this encounter Visit Diagnoses Diagnosis Malignant neoplasm of prostate- Primary Malignant neoplasm of prostate documented in this encounter Care Teams Popcorn Vendor Relationship Specialty Start Date End Date Yoni Ramírez MD [address] [place] [phone] PCP - General 07/05/10 documented as of this encounter
--- OUTSIDE RECORDS SUMMARY | 2024-09-23 11:34 | XMS_ITS | Encounter Summary ---
Author Organization [facility] [place] [address] Care Team Providers Care Investment Banking Analyst Name Role Phone Yoni Ramírez MD Primary Care Provider [phone] Reason for Visit * Reason Onset Date Comments Other 11/07/2021 Community resour kathe Encounter Details Date Type Department Care Team (Late st Contact Info) Description 11/07/2021 Telephone Hematology/Oncology at [address] [phone] Makenna Sorto, [facility] OFFICE OF CARE MANAGEMENT Other [...] slept in a chcf (including now)? No 10/26/2021 Sex and Gender [...] per his request. Received notification from the [facility] that pt can apply for funds for financial assistance after diagnosis and prior to start of treatments. TC pt to inform him of this. No answer and left request for a call back. Add: Call back from . Informed her that the [facility] will be sending pt a $50 gas cards. Pt/ gave permission for INFORMATION ASSURANCE OFFICER to complete an application to the [facility] requesting $225 in gas funds. INFORMATION ASSURANCE OFFICER will complete the application today. Consulted with DUNIA Giron re pt's situation. documented in this encounter Plan of Treatment Not on file documented as of this encounter Visit Diagnoses Not on filedocumented in this encounter Care Teams Investment Banking Analyst Relationship Specialty Start Date End Date Yoni Ramírez MD [address] [place] [phone] PCP - General 07/05/10 documented as of this encounter
--- OUTSIDE RECORDS SUMMARY | 2024-09-23 11:34 | XMS_ITS | Encounter Summary ---
Author Organization [facility] Address [facility] [place] [address] Care Team Providers Care Forger Helper Name Role Phone Yoni Ramírez MD Primary Care Provider [phone] Reason for Visit * Reason Comments Injections SQ degarelix, loadin g dose * Treatment/Therapy Plan Authorization (Routine) - Closed Specialty Diagnoses / Procedures Referred By Contsahil t Referred To Contact Diagnoses Malignant neoplasm of prostate Procedures DEGARELIX INJECTION [id number] DEGARELIX Deyvi Ibrahim MD [facility] [address] HEMATOLOGY [place] [address] [facility] Hem Onc Office [address] [place] [phone] Referral ID Status Reason Start Date Expiration Date Visits Re quested Visits Authorized [id number] Closed 11/02/2021 01/30/2022 99 99 Encounter Details Date Type Department Care Team (Late st Contact Info) Description 12/27/2021 1:30 PM EDT Infusion Hematology Oncology at [address] [phone] Malignant neoplasm of prostate Social [...] 240 mg, Subcutaneous, ONCE, 1 dose, On Sun12/27/21 at 1345, Routine, This agent is restricted to outpatient use. Is this drug being given as an outpatient? Yes Given 12/27/2021 2:21 PM EDT 240 mg 20-Other (document in comment section) documented in this encounter Care Teams Forger Helper Relationship Specialty Start Date End Date Yoni Ramírez MD [address] [place] [phone] PCP - General 07/05/10 documented as of this encounter
--- OUTSIDE RECORDS SUMMARY | 2024-09-23 11:34 | XMS_ITS | Encounter Summary ---
Author Organization [facility] [place] [address] Care Team Providers Care Credentials Specialist Name Role Phone Yoni Ramírez MD Primary Care Provider Encounter Details Date Type Department Care Team (Late st Contact Info) Description 09/29/2021 Telephone Main OR at [address] [phone] Lindsey Corrales Social History Tobacco [...] on filedocumented in this encounter Care Teams Credentials Specialist Relationship Specialty Start Date End Date Yoni Ramírez MD [address] [place] [phone] PCP - General 07/05/10 documented as of this encounter
--- OUTSIDE RECORDS SUMMARY | 2024-09-23 11:34 | XMS_ITS | Encounter Summary ---
[place] [address] Care Team Providers Care Irrigation District Manager Name Role Phone Yoni Ramírez MD Primary Care Provider Encounter Details Date Type Department Care Team (Late st Contact Info) Description 10/23/2021 [place] [phone] Cintia Fish MD [facility] [address] Social History Tobacco Use Types Packs/Day Years [...] on filedocumented in this encounter Care Teams Irrigation District Manager Relationship Specialty Start Date End Date Yoni Ramírez MD [address] [place] [address] PCP - General 07/05/10 documented as of this encounter
--- OUTSIDE RECORDS SUMMARY | 2024-09-23 11:34 | XMS_ITS | Encounter Summary ---
Author Organization [facility] [place] [address] Care Team Providers Care Feed Miller Name Role Phone Yoni Ramírez MD Primary Care Provider [phone] Reason for Visit * Reason Onset Date Comments Community Resources 12/07/2021 Encounter Details Date Type Department Care Team (Late st Contact Info) Description 12/07/2021 Telephone Hematology/Oncology at [address] [phone] Makenna Sorto, [facility] OFFICE OF CARE MANAGEMENT Community Resources Social [...] wood they purchased. Receipts required by the [facility] for the funds they sent pt. No answer and left message requesting a call back. documented in this encounter Plan of Treatment Not on file documented as of this encounter Visit Diagnoses Not on filedocumented in this encounter Care Teams Feed Miller Relationship Specialty Start Date End Date Yoni Ramírez MD [address] [place] [address] PCP - General 07/05/10 documented as of this encounter
--- OUTSIDE RECORDS SUMMARY | 2024-09-23 11:34 | XMS_ITS | Encounter Summary ---
Author Organization [facility] [place] [address] Care Team Providers Care Record Changer Assembler Name Role Phone Yoni Ramírez MD Primary Care Provider [phone] Reason for Visit * Reason Onset Date Comments Community Resources 11/17/2021 Encounter Details Date Type Department Care Team (Late st Contact Info) Description 11/17/2021 Telephone Hematology/Oncology at [address] [phone] Makenna Sorto, [facility] OFFICE OF CARE MANAGEMENT Community Resources Social [...] 11:42 AM EDT Revieved notification that [facility] approved pt's second request for $225 for wood for heating. TC to inform her. Requested a copy of the receipt when she purchases the wood for the [facility]. Care Coordination Financial resources Community Resource documented in this encounter Plan of Treatment Not on file documented as of this encounter Visit Diagnoses Not on filedocumented in this encounter Care Teams Record Changer Assembler Relationship Specialty Start Date End Date Yoni Ramírez MD [address] [place] [address] PCP - General 07/05/10 documented as of this encounter
--- OUTSIDE RECORDS SUMMARY | 2024-09-23 11:34 | XMS_ITS | Encounter Summary ---
Author Organization [facility] Address [facility] [place] [address] Care Team Providers Care Biomedical Engineering Supervisor Name Role Phone Yoni Ramírez MD Primary Care Provider [phone] Reason for Visit * Auth/Cert Specialty Diagnoses / Procedures Referred By Guillermo beckham Referred To Contact Diagnoses Benign prostatic hyperplasia, unspecified whether lower urinary tract symptoms present Retention of urine, unspecified BPH, irregular prostate growth Procedures PRO LASER VAPORIZATION SURGERY PROSTATE, COMPLETE CYSTO, LASER TURP (WRVU 12.15) MODIFIER,GREENLIGHT LASER Referral ID Status Reason Start Date Expiration Date Visits Re quested Visits Authorized [id number] 1 1 Encounter Details Date Type Department Care Team (Latest Contact Info) Description 10/20/2021 7:19 AM EST - 10/20/2021 2:10 PM EST Hospital Encounter PACU at [address] [phone] Ino Enamorado MD [facility] [address] Discharge Disposition: Home Social History Tobacco Use [...] * Indwelling Urinary Catheter Care: General Info (Citizen Of [place]) * Dowd Catheter: Self-Removal: General Info (Citizen [place]) documented in this encounter Medications at Time [...] needed for Nausea. naloxone (Narcan) 4 mg/actuation [place], Non-Aerosol Narcan 4 mg/actuation nasal spray Take [...] 1.57) performed by Karishma Maurer MD at [facility] MAIN OR ??? PRO ERCP,DIAGNOSTIC 08/22/2013 ERCP performed by Duane Garcia MD at [facility] ENDOSCOPY ??? PRO EXPLORE PARATHYROID GLANDS N/A 09/04/2017 PARATHYROIDECTOMY OR EXPLORATION OF PARATHYROID(S) (WRVU 15.6) performed by Karishma Maurer MD at [facility] MAIN OR ??? TONSILLECTOMY ALLERGIES Allergies Allergen Reactions ??? Ephedrine Anxiety ??? Suboxone [Buprenorphine-Naloxone] Hives ??? Lexapro [Escitalopram] Other (See Comments) [place] odd MEDICATIONS No current facility-administered medications on [...] Segundo MD - 10/20/2021 10:07 AM EST [facility] Brief Operative Note [address] Patient Name: Jeff Arreguin : [id number] MR#: [id number] Case Date: 10/20/2021 Case Scheduled Time: 829 [...] Enamorado MD - 10/20/2021 9:08 AM EST [facility] Operative Note [address] Patient Name: Jeff Arreguin : [id number] MR#: [id number] Case Date: 10/20/2021 Case Scheduled Time: 829 [...] Specimen? No Biospecimen to store? No 10/20/21 0904 Disposition: awakened from anesthesia, extubated and taken [...] meatus was then sequentially dilated to 30 [place] using Dickens sounds. Prostatic anatomy was found to be [...] was removed under direct vision. A 20 [place] three-way catheter was placed with ease and [...] EST Dil Urethra Stric, Male, Gen Anesth (39113) 10/20/2021 8:40 AM EST Urinary retention Benign prostatic hyperplasia, unspecified whether lower urinary tract symptoms present Transurethral Resec Bladder Neck (00410) 10/20/2021 8:40 AM EST Urinary retention Benign prostatic hyperplasia, unspecified whether lower urinary tract symptoms present MODIFIER,GREENLIGHT LASER 10/20/2021 8:40 AM EST Urinary retention Benign prostatic hyperplasia, unspecified whether lower urinary tract symptoms present Laser Vaporization Surgery Prostate, Complete (22756) 10/20/2021 8:40 AM EST Urinary retention Benign prostatic hyperplasia, unspecified whether lower urinary tract symptoms present documented in this encounter Results * Specimen to Pathology (10/20/2021 9:49 AM EST) AP Specimen 10/20/2021 9:49 AM EST 10/20/2021 9:49 AM EST Narrative [facility] - 10/20/2021 9:49 AM EST Specimen requisition ordered. ??Separate Pathology report to follow Ino Enamorado MD PATHOLOGY/CYTOLOGY O [place] Performing Organization Address [facility]/ZIP Co de Phone Number [facility] [place] [address] * Solid Tumor NGS Panel (10/20/2021 9:19 AM EST) Tissue 10/20/2021 9:19 AM EST 11/07/2021 12:25 PM EDT Narrative Resulting Agency Comment Spec In Lab Ino Enamorado MD PATHOLOGY/CYTOLOGY O [place] [facility] [place] [address] * Surgical Pathology Report (10/20/2021 9:19 AM EST) Final Diagnosis [id number] ? Location[facility]; The signing pathologist has (i) examined the relevant preparation(s) for the specimen(s) and (ii) rendered or confirmed the diagnosis(es). . ? Immunohistochemistry DIAGNOSIS Prostatic adenocarcinoma with intact nuclear staining for ??MLH1, MSH2, MSH6, and PMS2 in tumor cells. Electronically signed by: ?Kirit Ramos MD Verified: ??11/07/2021 9:48 ?? Pathologist Performed at: ??-[facility] Dept. of Pathology, [place], [place] INTERPRETATION Block ? Antibody ? Result [...] The assay was performed according to the team cdl driver's intructions using anti-MLH-1 (ES05), anti-MSH-2 ([id number]), anti-MSH-6 (44), and anti-PMS-2 (MRQ-28) antibodies. ?Surgical Pathology DIAGNOSIS Bladder neck tumor and prostatic tissue, transurethral resection: ? Prostatic adenocarcinoma, grade group 4, [place] ?grade 4+4, involving 100% of the submitted ?tissue. CR-0 Electronically signed by: ?Richard MAYES, Kirit Díaz Verified: ??10/25/2021 11:13 ??Pathologist Performed at: ??-[facility] Dept. of Pathology, [place], [place] DISCUSSION Scanned slides: [id number] [id number] [id number] ADDITIONAL STUDIES Formalin-fixed, paraffin-embedded tissue sections are studied using the B-SA system technique with appropriate positive and negative controls. Block ? Antibody ?Result (Degree of immunoreactivity) A-1 ?NKX-[id number] ? Diffuse nuclear immunoreactivity A-1 ?[id number] ?Negative . ADDITIONAL STUDIES A-1 ?P63 ?Negative [...] labeled A1-A4. pps 11/07/2021 9:48 AM EDT [facility] Urinary Bladder, TUR 10/20/2021 9:19 AM EST 10/20/2021 9:19 AM EST Ino Enamorado MD PATHOLOGY/CYTOLOGY [place] [facility] [place] [address] documented in this encounter Visit Diagnoses Not [...] Plus (COMPLETED) 2,000 mg (2 g), Intravenous, SERICULTURIST TO O.R., 1 dose, On Sun10/20/21 at 0700, Administer over 15 Minutes, Warning Vesicant/Irritant Medication , Day of Surgery (Day of Procedure), Indication for (Active or Suspected): Prophylaxis 0850 (New Bag - Prov ider: Tiffanie Davis) gentamicin (Garamycin) 418.4 mg in sodium chloride 0.9% 110.46 mL infusion (COMPLETED) 418.4 mg (rounded from 418.5 mg = 5 mg/kg/dose ? 83.7 kg Adjusted weight), Intravenous, SERICULTURIST TO O.R., 1 dose, On Sun10/19/21 at [...] Oral, 3 TIMES DAILY, First dose on Sun10/20/21 at 1100, Until Discontinued, Routine 1040 (Given - Provid er: Tammy Domingo RN) Continuous Medication Order 10/18/2021 10/19/2021 10/20/2021 lactated ringers infusion (CANCELED) 1,000 mL, Intravenous, CONTINUOUS, Starting on Sun10/20/21 at 0700, Until Sun10/20/21 at 1419, Day of Surgery (Day of [...] 0749, Until [place] 10/20/21 at 1621, Ricki Dnucan: cabinet override 0800 (Due) documented in this encounter Care Teams Biomedical Engineering Supervisor Relationship Specialty Start Date End Date Yoni Ramírez MD [address] [place] [address] PCP - General 07/05/10 documented as of this encounter
--- OUTSIDE RECORDS SUMMARY | 2024-09-23 11:34 | XMS_ITS | Encounter Summary ---
Author Organization [facility] Address [facility] [place] [address] Care Team Providers Care Truck Greaser Name Role Phone Yoni Ramírez MD Primary Care Provider [phone] Encounter Details Date Type Department Care Team (Late st Contact Info) Description 01/31/2022 1:00 PM EDT Office Visit Hematology/Oncology at [address] [phone] Deyvi Ibrahim MD [facility] [address] HEMATOLOGY [place] [address] Jojo Williamson APRN Androgen deprivation therapy; Malignant [...] 1:00 PM EDT Diagnosis: Prostatic adenocarcinoma, 4, [place]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 Lexapro [Escitalopram] Other (See Comments) [place] odd Medications: Your Medications Accurate as of [...] 100 mg Refills: 0 naloxone 4 mg/actuation [place] Commonly known as: Narcan Narcan 4 mg/actuation [...] transurethral resection: ?Prostatic adenocarcinoma, grade group 4, [place] ? grade 4+4, involving 100% of the [...] and Plan: Diagnosis: Prostatic adenocarcinoma, grade 4, [place] 4+4, metastatic to regional lymph nodes Treatment: [...] He would like to be treated at [facility] close to his home. 12/27/21 PSMA [...] Arreguin would like to discuss with social service assistant. Plan: 1. Lupron 22.5 mg today [...] node documented in this encounter Care Teams Truck Greaser Relationship Specialty Start Date End Date Yoni Ramírez MD [address] [place] [address] PCP - General 07/05/10 documented as of this encounter
--- OUTSIDE RECORDS SUMMARY | 2024-09-23 11:34 | XMS_ITS | Encounter Summary ---
[place] [address] Care Team Providers Care Director Medicare Sales Name Role Phone Yoni Ramírez MD Primary Care Provider [phone] Reason for Visit * Diagnostic Test (Routine) - Closed Specialty Diagnoses / Procedures Referred By Contac t Referred To Contact Radiology Diagnoses Malignant neoplasm of prostate Procedures NM PET CT PSMA Prostate (Pylarify) Deyvi bIrahim MD [facility] DR [place] [address] [place] [address] Referral ID Status Reason Start Date Expiration Date V isits Requested Visits Authorized [id number] Closed Specialty Service Requested 11/30/2021 06/01/2023 1 1 Encounter Details Date Type Department Care Team (Latest Contact Info) Description 12/19/2021 11:46 AM EDT - 12/19/2021 11:59 PM EDT Hospital Encounter [place] [address] Deyvi Ibrahim MD [facility] [place] [address] Discharge Disposition: Home Social History [...] slept in a fci (including now)? No 10/26/2021 Sex and Gender [...] needed for Nausea. naloxone (Narcan) 4 mg/actuation [place], Non-Aerosol Narcan 4 mg/actuation nasal spray Take [...] Thank you for referring this patient to [facility]. I have personally reviewed the [...] who have questions please contact the health director medicare sales that requested your imaging first. ? Electronically signed by: Tyrone Lewis MD, [facility] ([phone]), at 12/19/2021 4:13 PM Narrative 12/19/2021 4:13 [...] lymph nodes in the left obturator (axial [id number]) left internal iliac (axial image 282), and [...] Thank you for referring this patient to [facility]. I have personally reviewed the image(s) and the resident's interpretationand agree with the findings, Tyrone Lewis MD at 12/19/2021 4:13 PM Thank you for letting us participate in the care of this patient. If youare a health care provider and have any questions regarding this report,please contact the number below. For patients who have questions please contactthe health director medicare sales that requested your imaging first. Electronically signed by: Tyrone Lewis MD, [facility]([phone]), at 12/19/2021 4:13 PM Deyvi Ibrahim MD IMG PET ORDERABLES documented in this encounter Visit Diagnoses Not on filedocumented in this encounter Care Teams Director Medicare Sales Relationship Specialty Start Date End Date Yoni Ramírez MD [address] [address] PCP - General 07/05/10 documented as of this encounter
--- OUTSIDE RECORDS SUMMARY | 2024-09-23 11:34 | XMS_ITS | Encounter Summary ---
Author Organization [facility] [place] [address] Care Team Providers Care Heating And Ventilating Worker Name Role Phone Yoni Ramírez MD Primary Care Provider Reason for Referral * Consultation (Urgent) - Closed Specialty Diagnoses / Procedures Referred By Guillermo beckham Referred To Contact Hematology and Oncology Diagnoses Malignant neoplasm of prostate Ino Enamorado MD [facility] [place] [address] [facility] Hem Onc Office [address] [place] [phone] Referral ID Status Reason Start Date Expiration Date V isits Requested Visits Authorized [id number] Closed Consult, Test & Treat 10/25/2021 10/25/2022 1 1 Encounter Details Date Type Department Care Team (Late st Contact Info) Description 10/25/2021 [place] [address] Ino Enamorado MD [facility] [place] [address] Social History Tobacco Use Types Packs/Day Years [...] slept in a detention (including now)? No 10/26/2021 Sex and Gender [...] prostate documented in this encounter Care Teams Heating And Ventilating Worker Relationship Specialty Start Date End Date Yoni Ramírez MD [address] [place] [address] PCP - General 07/05/10 documented as of this encounter
--- OUTSIDE RECORDS SUMMARY | 2024-09-23 11:34 | XMS_ITS | Encounter Summary ---
Author Organization [facility] [place] [address] Care Team Providers Care Attendant Campground Name Role Phone Yoni Ramírez MD Primary Care Provider [phone] Encounter Details Date Type Department Care Team (Latest Contact Info) Description 12/19/2021 11:15 AM EDT Laboratory Appointment Lab [address] [place] [phone] Malignant neoplasm of prostate Social History Tobacco [...] prostate HC CBC,PLT & AUTO DIFF Routine 2 11:12 AM EDT Malignant neoplasm of prostate HC TESTOSTERONE, SERUM Routine 2 11:12 AM EDT Malignant neoplasm of prostate HC PROSTATE SPECIFIC ANTIGEN Routine 12/19/2021 11:12 AM EDT Malignant neoplasm of prostate COMPREHENSIVE METABOLIC PANEL Routine 12/19/2021 11:12 AM EDT Malignant neoplasm of prostate documented in this encounter Results * (ABNORMAL) Differential, Automated (12/19/2021 11:12 AM EDT) Neutrophil % 47.3 % [facility] Neutrophil Absolute 4.34 1.70 - 6.10 x10(3)/mc L [facility] Lymph % 38.4 % [facility] Lymphocytes Abs 3.5(H) 0.9 - 3.2 x10(3)/mc L [facility] Monocyte % 12.0 % [facility] Monocyte Abs 1.1(H) 0.3 - 0.9 x10(3)/mc L [facility] Eos % 1.9 % [facility] Eosinophils Abs 0.2 0.0 - 0.4 x10(3)/[facility] Basophil % 0.2 % [facility] Baso Absolute 0.0 0.0 - 0.1 x10(3)/ L [facility] Immature Gran % 0.20 % [facility] Comment: Immature granulocytes(IG's)percentage and absolute count will include metamyelocytes, myelocytes, and promyelocytes. Blood smears from CBCs yielding IG's will be scanned manually for concordance. If this scan disagrees with the automated IG or if promyelocytes are noted, a manual differential will be performed. Immature Gran Absolute 0.02 0.00 - 0.04 x10(3)/[facility] Blood 12/19/2021 11:1 2 AM EDT 12/19/2021 11:34 AM EDT Narrative Resulting Agency Comment Spec In Lab Deyvi Ibrahim MD HEMATOLOGY ORDERABLE S [facility] [place] [address] * (ABNORMAL) Hemogram (12/19/2021 11:12 AM EDT) White Blood Cell 9.2 4.0 - 9.5 x10(3)/ L [facility] Red Blood Cell 4.42(L) 4.58 - 5.54 x10(6)/ L [facility] Hemoglobin 14.4 13.7 - 16.5 g/dL [facility] Hematocrit 42.6 40.5 - 48.5 % [facility] Mean Cell Volume 96.4(H) 82.9 - 93.1 fL [facility] Mean Cell Hemoglobin 32.6(H) 27.5 - 32.1 pg [facility] Mean Cell Hemoglobin Concentration 33.8 32.0 - 35.7 g/dL [facility] Platelet 310 145 - 357 x10(3)/mc L [facility] RDW Standard Deviation 47.7(H) 36.0 - 45.0 fL [facility] RDW coefficient of variation 13.2 11.4 - 13.8 % [facility] Mean Platelet Volume 9.6 7.6 - 12.9 fL [facility] NRBC% auto 0.0 % [facility] NRBC Absolute 0.000 0.000 - 0.000 x10(3)/mc L [facility] Blood 12/19/2021 11:1 2 AM EDT 12/19/2021 11:34 AM EDT Narrative Resulting Agency Comment Spec In Lab Deyvi Ibrahim MD HEMATOLOGY ORDERABLE S Performing Organization Address [facility] Co de Phone Number [facility] [place] [address] * PSA (Ultrasensitive) (12/19/2021 11:12 AM EDT) Prostate Specific Antigen (Ultrasensitive ) 3.02 0.00 - 4.00 ng/mL [facility] Comment: PLEASE NOTE: The above reference interval is intended for healthy males with an intact prostate. Values within this reference interval may indicate recurrence in men who have undergone radical prostatectomy. Blood 12/19/2021 11:1 2 AM EDT 12/19/2021 11:34 AM EDT Narrative Resulting Agency Comment Spec In Lab Deyvi Ibrahim MD CHEMISTRY ORDERABLES Performing Organization Address [facility] Co de Phone Number [facility] [place] [address] * (ABNORMAL) Comprehensive metabolic panel (non-fasting) (12/19/2021 [...] In Lab Deyvi Ibrahim MD CHEMISTRY ORDERABLES [facility] [place] [address] * Testosterone, total (12/19/2021 11:12 AM EDT) Testosterone 4.31 1.93 - 7.40 ng/mL [facility] Comment: Pediatric Reference Ranges: [...] Ibrahim MD CHEMISTRY ORDERABLES Performing Organization Address City/State/[facility] Co de Phone Number [facility] [place] [address] documented in this encounter Visit Diagnoses Diagnosis Malignant neoplasm of prostate documented in this encounter Care Teams Attendant Campground Relationship Specialty Start Date End Date Yoni Ramírez MD [address] [place] [address] PCP - General 07/05/10 documented as of this encounter
--- OUTSIDE RECORDS SUMMARY | 2024-09-23 11:34 | XMS_ITS | Encounter Summary ---
Author Organization [facility] [place] [address] Care Team Providers Care Publishing Agent Name Role Phone Yoni Ramírez MD Primary Care Provider Encounter Details Date Type Department Care Team (Late st Contact Info) Description 09/28/2021 Telephone Urology at [facility] [place] [phone] Ino Enamorado MD [facility] [place] [address] Social History Tobacco Use Types Packs/Day Years [...] Spk w/ pt on phone, and emailed [facility] for surgery on 10/20. PT has an appointment on 10/12 for a FUV, he is wondering if this can be a TOV as [place]. Thank you Jaimie documented in this encounter Plan of Treatment Not on file documented as of this encounter Visit Diagnoses Not on filedocumented in this encounter Care Teams Publishing Agent Relationship Specialty Start Date End Date Yoni Ramírez MD [address] [place] [address] PCP - General 07/05/10 documented as of this encounter
--- OUTSIDE RECORDS SUMMARY | 2024-09-23 11:34 | XMS_ITS | Encounter Summary ---
Author Organization [facility] [place] [address] Care Team Providers Care Veterinary Radiologist Name Role Phone Yoni Ramírez MD Primary Care Provider [phone] Encounter Details Date Type Department Care Team (Late st Contact Info) Description 11/03/2021 Telephone Hematology/Oncology at [address] [phone] Getachew Rangel Social History Tobacco [...] their system and told me to call [phone] to speak with the insurance plan. I spoke to Allison and she stated that there is no auth required for either of these scans. Reference #[id number] documented in this encounter Plan of Treatment Not on file documented as of this encounter Visit Diagnoses Not on filedocumented in this encounter Care Teams Veterinary Radiologist Relationship Specialty Start Date End Date Yoni Ramírez MD [address] [address] PCP - General 07/05/10 documented as of this encounter
--- OUTSIDE RECORDS SUMMARY | 2024-09-23 11:34 | XMS_ITS | Encounter Summary ---
Author Organization [facility] [place] [address] Care Team Providers Care Speech Assistant Name Role Phone Yoni Ramírez MD Primary Care Provider [phone] Reason for Visit * Reason Onset Date Comments Other 11/14/2021 Community resour kathe Encounter Details Date Type Department Care Team (Late st Contact Info) Description 11/14/2021 Telephone Hematology/Oncology at [address] [phone] Makenna Sorto, [facility]ARE [facility]NAG[facility] Other (Community resources) [...] she did receive the gas cards from Organ[employer] and the gas funds from the [facility]. would like to make a second request to the [facility] for $225 towards the cost of wood. indicated she did speak to the dietary manager about this and that she did not needs a bill or voucher from her wood supplier. WORK ORDER CLERK will reach out to the [facility] and confirm what information pt/ needs to supply to make a second request from the fund. Will notify is she needs to provide additional information to make this second request. Care Coordination Financial resources documented in this encounter Plan of Treatment Not on file documented as of this encounter Visit Diagnoses Not on filedocumented in this encounter Care Teams Speech Assistant Relationship Specialty Start Date End Date Yoni Ramírez MD [address] [place] [address] PCP - General 07/05/10 documented as of this encounter
--- OUTSIDE RECORDS SUMMARY | 2024-09-23 11:34 | XMS_ITS | Encounter Summary ---
Author Organization [facility] [place] [address] Care Team Providers Care Medicinal Plant Picker Name Role Phone Yoni Ramírez MD Primary Care Provider Reason for Referral * Consultation (Routine) - Closed Specialty Diagnoses / Procedures Referred By Contac t Referred To Contact Care Management Diagnoses Malignant neoplasm of prostate Financial difficulties Heather Rangel APRN [address] [place] [address] [place] [address] [place], [place] Referral ID Status Reason Start Date Expiration Date V isits Requested Visits Authorized [id number] Closed Consult, Test & Treat 11/02/2021 11/02/2022 1 1 Reason for Visit * Reason Comments Advice Only * Consultation (Urgent) - Closed Specialty Diagnoses / Procedures Referred By Contac t Referred To Contact Hematology and Oncology Diagnoses Malignant neoplasm of prostate Ino Enamorado MD [facility] [place] [address] St Hem Onc Office [address] [place] [phone] Referral ID Status Reason Start Date Expiration Date V isits Requested Visits Authorized [id number] Closed Consult, Test & Treat 10/25/2021 10/25/2022 1 1 Encounter Details Date Type Department Care Team (Late st Contact Info) Description 11/02/2021 2:30 PM EDT Office Visit [place]ology [place] [address] Deyvi Ibrahim MD [facility] DR HEMATOLOGY [place] [address] Heather Rangel, [address] [place] [address] Malignant neoplasm of prostate (Primary Dx); Financial [...] were not included. Diagnosis: Prostatic adenocarcinoma, 4, [place] 4+4, PSA 2.1 CC: My back and [...] Hives ??? 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 Arreguin is 56 [...] He would like to be treated at [facility] close to his home. #Financial hardship: Mr. Arreguin would like to discuss with clinical social worker. Plan: 1. CT chest abdomen pelvis and [...] Malignant neoplasm of prostate Ordered: 11/02/2021 Scheduled Referrals Name Type Priority Associated Diagnoses [...] 3:20 PM EDT) Neutrophil % 64.7 % [facility] Neutrophil Absolute 5.38 1.70 - 6.10 x10(3)/[facility] Lymph % 21.7 % [facility] Lymphocytes Abs 1.8 0.9 - 3.2 x10(3)/[facility] Monocyte % 8.0 % [facility] Monocyte Abs 0.7 0.3 - 0.9 x10(3)/[facility] Eos % 4.9 % [facility] Eosinophils Abs 0.4 0.0 - 0.4 x10(3)/[facility] Basophil % 0.2 % [facility] Baso Absolute 0.0 0.0 - 0.1 x10(3)/[facility] Immature Gran % 0.50 % [facility] Comment: Immature granulocytes(IG's)percentage and absolute count will include metamyelocytes, myelocytes, and promyelocytes. Blood smears from CBCs yielding IG's will be scanned manually for concordance. If this scan disagrees with the automated IG or if promyelocytes are noted, a manual differential will be performed. Immature Gran Absolute 0.04 0.00 - 0.04 x10(3)/[facility] Blood 11/02/2021 3:20 PM EDT 11/02/2021 3:41 PM EDT Narrative Resulting Agency Comment Spec In Lab Deyvi Ibrahim MD HEMATOLOGY ORDERABLE S [facility] [place] [address] * (ABNORMAL) Hemogram (11/02/2021 3:20 PM EDT) White Blood Cell 8.3 4.0 - 9.5 x10(3)/mc L [facility] Red Blood Cell 3.44(L) 4.58 - 5.54 x10(6)/mc L [facility] Hemoglobin 11.4(L) 13.7 - 16.5 g/dL [facility] Hematocrit 34.2(L) 40.5 - 48.5 % [facility] Mean Cell Volume 99.4(H) 82.9 - 93.1 fL [facility] Mean Cell Hemoglobin 33.1(H) 27.5 - 32.1 pg [facility] Mean Cell Hemoglobin Concentration 33.3 32.0 - 35.7 g/dL [facility] Platelet 234 145 - 357 x10(3)/[facility]OR[facility] RDW Standard Deviation 47.9(H) 36.0 - 45.0 [facility] RDW coefficient of variation 13.0 11.4 - 13.8 % [facility] Mean Platelet Volume 9.6 7.6 - 12.9 [facility] NRBC% auto 0.0 % [facility] NRBC Absolute 0.000 0.000 - 0.000 x10(3)/[facility] Blood 11/02/2021 3:20 PM EDT 11/02/2021 3:41 PM EDT Narrative Resulting Agency Comment Spec In Lab Deyvi Ibrahim MD HEMATOLOGY ORDERABLE S [facility] [place] [address] * Testosterone, total (11/02/2021 3:20 PM EDT) Pathologist [facility] Testosterone 3.29 1.93 - 7.40 ng/mL [facility] Comment: Pediatric Reference Ranges: ? [...] In Lab Deyvi Ibrahim MD CHEMISTRY ORDERABLES [facility] [place] [address] * (ABNORMAL) Comprehensive metabolic panel (non-fasting) (11/02/2021 3:20 PM EDT) Glucose 112 65 - 199 mg/dL [facility] Comment:Diabetes: >=200 mg/d L plus symptoms Blood Urea Nitrogen 19 10 - 20 mg/dL [facility] Creatinine 1.04 0.80 - 1.50 mg/dL [facility] Sodium 139 135 - 145 mmol/L [facility] Potassium 5.1(H) 3.5 - 5.0 mmol/L [facility] Comment: Please note: ??Patients with WBC >100,000 may have falsely elevated Potassium levels. ??For accurate Potassium quantification in these patients send serum separator tube (gold top) for subsequent determinations. ??Contact the Clinical Chemistry Laboratory if there are any questions. Chloride 104 98 - 107 mmol/L [facility] Carbon Dioxide 28 22 - 31 mmol/L [facility] Anion Gap 7 5 - 15 mmol/L [facility] Calcium 8.3(L) 8.5 - 10.5 mg/dL [facility] Protein, Total 6.6 6.1 - 8.0 g/dL [facility] Albumin 4.3 3.2 - 5.2 g/dL [facility] Aspartate Aminotransferase 26 0 - 39 unit/L [facility] Alanine Aminotransferase 30 0 - 55 unit/L [facility] Alkaline Phosphatase 121 40 - 130 unit/L [facility] Bilirubin, Total 0.5 0.2 - 1.3 mg/dL [facility] Est Glomerular Filtration Rate 79 >=60 mL/min/1. 73 m?? [facility] Comment: This patient? s estimated [...] Ibrahim MD CHEMISTRY ORDERABLES Performing Organization Address [facility] Co de Phone Number [facility] [place] [address] * PSA (Ultrasensitive) (11/02/2021 3:20 PM EDT) Prostate Specific Antigen (Ultrasensitive ) 1.72 0.00 - 4.00 ng/mL [facility] Comment: PLEASE NOTE: The above reference interval is intended for healthy males with an intact prostate. Values within this reference interval may indicate recurrence in men who have undergone radical prostatectomy. Blood 11/02/2021 3:20 PM EDT 11/02/2021 3:41 PM EDT Narrative Resulting Agency Comment Spec In Lab Deyvi Ibrahim MD CHEMISTRY ORDERABLES Performing Organization Address [facility] Co de Phone Number [facility] [place] [address] documented in this encounter Visit Diagnoses Diagnosis Malignant neoplasm of prostate- Primary Financial difficulties Inadequate material resources documented in this encounter Care Teams Medicinal Plant Picker Relationship Specialty Start Date End Date Yoni Ramírez MD [address] [place] [id number] PCP - General 07/05/10 documented as of this encounter
--- OUTSIDE RECORDS SUMMARY | 2024-09-23 11:34 | XMS_ITS | Encounter Summary ---
[place] [address] Care Team Providers Care Crop Nutrition Scientist Name Role Phone Yoni Ramírez MD Primary Care Provider [phone] Reason for Referral * Diagnostic Test (Routine) - Closed Specialty Diagnoses / Procedures Referred By Contac t Referred To Contact Radiology Diagnoses Malignant neoplasm of prostate Procedures NM PET CT PSMA Prostate (Pylarify) Deyvi Ibrahim MD [facility] [address] [place] [address] [place] [address] Referral ID Status Reason Start Date Expiration Date V isits Requested Visits Authorized [id number] Closed Specialty Service Requested 11/30/2021 06/01/2023 1 1 Reason for Visit * Diagnostic Test (Routine) - Closed Specialty Diagnoses / Procedures Referred By Contac t Referred To Contact Radiology Diagnoses Malignant neoplasm of prostate Procedures NM PET CT PSMA Prostate (Pylarifsteff) Deyvi Ibrahim MD [facility] [address] [place] [address] [place] [address] Referral ID Status Reason Start Date Expiration Date V isits Requested Visits Authorized [id number] Closed Specialty Service Requested 11/30/2021 06/01/2023 1 1 Encounter Details Date Type Department Care Team (Latest Contact Info) Description 12/19/2021 11:45 AM EDT Hospital Encounter Nuclear Medicine at [facility] [place] [address] Deyvi Ibrahim MD [facility] [address] [place] [address] Malignant neoplasm of prostate Discharge Disposition: Home [...] needed for Nausea. naloxone (Narcan) 4 mg/actuation [place], Non-Aerosol Narcan 4 mg/actuation nasal spray Take [...] you for referring this patient to [facility]. I have [...] who have questions please contact the health district manager primary care sales that requested your imaging first. ? Narrative [...] lymph nodes in the left obturator (axial [id number]) left internal iliac (axial image 282), and [...] you for referring this patient to [facility]. I have personally reviewed the image(s) and the resident's interpretationand agree with the findings, Tyrone Lewis MD at 12/19/2021 4:13 PM Thank you for letting us participate in the care of this patient. If youare a health care provider and have any questions regarding this report,please contact the number below. For patients who have questions please contactthe health district manager primary care sales that requested your imaging first. Deyvi Ibrahim [...] Arm documented in this encounter Care Teams Crop Nutrition Scientist Relationship Specialty Start Date End Date Yoni Ramírez MD [address] [place] [phone] PCP - General 07/05/10 documented as of this encounter
--- OUTSIDE RECORDS SUMMARY | 2024-09-23 11:34 | XMS_ITS | Encounter Summary ---
Author Organization [facility] [place] [address] Care Team Providers Care Product Development Specialist Name Role Phone Yoni Ramírez MD Primary Care Provider Encounter Details Date Type Department Care Team (Late st Contact Info) Description 01/18/2022 Telephone Hematology/Oncology at [address] [phone] Saima Fuentes Social History Tobacco [...] filedocumented in this encounter Care Teams Product Development Specialist Relationship Specialty Start Date End Date Yoni Ramírez MD [address] [place] [address] PCP - General 07/05/10 documented as of this encounter
--- OUTSIDE RECORDS SUMMARY | 2024-09-23 11:35 | XMS_ITS | Encounter Summary ---
Author Organization [facility] [place] [address] Care Team Providers Care Disc Pad Plate Filler Name Role Phone Yoni Ramírez MD Primary Care Provider [phone] Encounter Details Date Type Department Care Team (Late st Contact Info) Description 09/08/2017 Telephone [place] [phone] Chris Zepeda Social History Tobacco Use Types [...] on filedocumented in this encounter Care Teams Disc Pad Plate Filler Relationship Specialty Start Date End Date Yoni Ramírez MD [address] [place] [address] PCP - General 07/05/10 documented as of this encounter
--- OUTSIDE RECORDS SUMMARY | 2024-09-23 11:35 | XMS_ITS | Encounter Summary ---
Author Organization [facility] [place] [address] Care Team Providers Care Station Mechanic Apprentice Name Role Phone Margaret Ramírez MD Primary Care Provider Reason for Visit * Reason Comments Hematemesis Encounter Details Date Type Department Care Team (Late st Contact Info) Description 03/27/2014 12:15 PM EDT - 03/27/2014 3:44 PM EDT Emergency [place] [address] Art Salazar MD [facility] [place] [address] EMERGENCY DEPT, [facility] [address] Cyclical vomiting Discharge Disposition: Home Social History [...] from the original note were not included. [facility] Nausea and Vomiting: After Your Visit Your [...] more? Visit our health information library at [email or web address] You can also view health information on [employer]ice[employer], your personal patient account. Log in or sign up today. Enter [id number] in the search box to learn more about Nausea and Vomiting: After Your Visit. ?? [phone] [employer]. Care instructions adapted under license by [facility]. This care instruction is for use with your licensed healthcare professional. If you have questions about a medical condition or this instruction, always ask your healthcare professional. [employer] disclaims any warranty or liability for your use of this information. Content Version: [id number]; Last Revised: September 25, 2012 documented in [...] Patient presents with ??? Hematemesis PCP: MARGARET RAMÍREZ MD PCP: [phone] Historians: Patient Jeff Arreguin a 48 y.o.male [...] ERCP performed by Duane Garcia MD at [facility] Family History Problem Relation Age [...] the plan. Rubin Huber MD PGY-2 Pager [phone] Rubin Huber MD Resident 03/27/14 [phone] I saw this patient with resident. I [...] Gold Tube HOLD (03/27/2014 1:25 PM EDT) Gold Hold Sample in lab. EVELYN CELESTINAELOIUM Blood specimen (specimen) 03/27/2014 1:25 PM EDT 03/27/2014 1:29 PM EDT Dk Barnard Jr., MD CHEMISTRY ORDERABL ES EVELYN GONZÁLESIUM * (ABNORMAL) Differential, Automated (03/27/2014 1:25 PM [...] Barnard Jr., MD HEMATOLOGY ORDERAB LES CERDAYLIN OSCARENNIUM * (ABNORMAL) Hemogram (03/27/2014 1:25 PM EDT) [...] MD HEMATOLOGY ORDERAB LES Performing Organization Address City/[facility] Co de Phone Number EV[facility]N [facility] * APTT (03/27/2014 1:25 PM EDT) Partial Thromboplastin Time 28 25 - 35 sec [facility] MILLENNIUM Comment: Recommended therapeutic PTT range for full dose unfractionated heparin is 80-114 seconds. Blood specimen (specimen) 03/27/2014 1:25 PM EDT 03/27/2014 1:28 PM EDT Narrative Resulting Agency Comment Spec In Lab Dk Barnard Jr., MD HEMATOLOGY ORDERAB LES Performing Organization Address [facility] de Phone Number EVELYN GRACIA * Prothrombin Time (03/27/2014 1:25 PM EDT) Prothrombin Time 13.7 12.5 - 15.5 sec [facility] CELESTINAENNIUM Comment: [facility] Transfusion Committee Guidelines: INR less than [...] MD HEMATOLOGY ORDERAB LES Performing Organization Address [facility]/State/ZIP Co de Phone Number EVELYN CELESTINAENNIUM * Lipase (03/27/2014 1:25 PM EDT) Lipase 21 0 - 60 unit/L [facility] MILLENNIUM Blood specimen (specimen) 03/27/2014 1:25 PM EDT 03/27/2014 1:28 PM EDT Narrative Resulting Agency Comment Spec In Lab Dk Barnard Jr., MD CHEMISTRY ORDERABL ES EVELYN GRACIA * (ABNORMAL) CMP w/fasting Glucose (03/27/2014 1:25 [...] of Diabetes Mellitus, Position Statement from the [place] [employer]. ??Diabetes Care, Volume 33, Supplement 1, Aug 2009 Blood Urea Nitrogen 16 10 - 20 mg/dL CERNER MILLENNIUM Creatinine 1.06 0.80 - 1.50 mg/dL CERNER MILLENNIUM Comment: Please note that the pediatric reference intervals supplied above were not validated at [facility]. Results from pediatric patients should be interpreted [...] the following links into your internet browser. [email or web address] Blood specimen (specimen) 03/27/2014 1:25 PM EDT 03/27/2014 1:28 PM EDT Narrative Resulting Agency Comment Spec In Lab Dk Barnard Jr., MD CHEMISTRY ORDERABL ES EVELYN GRACIA documented in this encounter Visit Diagnoses Diagnosis Cyclical vomiting Persistent vomiting documented in this encounter Administered Medications Inactive [...] 1530, STAT 1518 (Given - Provid er: Berta Mcelroy RN) ondansetron (ZOFRAN) injection 8 mg (COMPLETED) 8 mg, Intravenous, ONCE, 1 dose, On Sun03/27/14 at 1330, STAT 1321 (Given - Provid er: Berta Mcelroy RN) documented in this encounter Care Teams Station Mechanic Apprentice Relationship Specialty Start Date End Date Margaret Ramírez MD [address] [place] [address] PCP - General 07/05/10 documented as of this encounter
--- OUTSIDE RECORDS SUMMARY | 2024-09-23 11:35 | XMS_ITS | Encounter Summary ---
[place] [address] Care Team Providers Care Harvest Manager Name Role Phone Yoni Ramírez MD Primary Care Provider Encounter Details Date Type Department Care Team (Late st Contact Info) Description 08/22/2017 Telephone [place] [phone] Nora Cline Social History Tobacco Use Types [...] on filedocumented in this encounter Care Teams Harvest Manager Relationship Specialty Start Date End Date Yoni Ramírez MD [address] [place] [address] PCP - General 07/05/10 documented as of this encounter
--- OUTSIDE RECORDS SUMMARY | 2024-09-23 11:35 | XMS_ITS | Encounter Summary ---
Author Organization [facility] [place] [address] Care Team Providers Care Doctorate Of Chiropractic Name Role Phone Yoni Ramírez MD Primary Care Provider [phone] Reason for Visit * Auth/Cert Specialty Diagnoses / Procedures Referred By Contac t Referred To Contact Diagnoses Hyperparathyroidism HPT Procedures PRO EXPLORE PARATHYROID GLANDS PRG EMG, LARYNX PARATHYROIDECTOMY OR EXPLORATION OF PARATHYROID(S) (WRVU 15.6) FACIAL NERVE MONITORING, SETUP LARYNGEAL (WRVU 1.57) Referral ID Status Reason Start Date Expiration Date Visits Re quested Visits Authorized [id number] 1 1 Encounter Details Date Type Department Care Team (Latest Contact Info) Description 09/04/2017 11:44 AM EST - 09/05/2017 11:00 AM EST Hospital Encounter [place] [address] Yanet Trujillo MD [facility] [place] [address] Hyperparathyroidism Discharge Disposition: Home Social History Tobacco [...] this encounter Discharge Summaries * Tracy Felipe, BUTTON BREAKER OPERATOR - 09/05/2017 8:27 AM EST General Surgery [...] 11:30 AM Yanet Trujillo MD [facility] Outpatient Services/Studies: Calcium Standing Status: Future [...] Take NSAIDS or Tylenol every 6 hours ufqyjj-[id number] for the first 3-5 days following surgery [...] or grocery store, as it is available [id number] and does not require a prescription. The [...] please call the General Surgery nurse at [phone], since this may mean that you need [...] will be mailed to you Please call [phone] to confirm the date and time of your appointment if you do not hear from us in the next 2 weeks Call Doctor for: Call if you have trouble talking or breathing (call [phone] if this is severe) Call if you [...] with the Surgery nurses. The number is [phone]. - During the night or weekends call the [facility] turbo operator at [phone] and ask to speak to the surgery resident interventional radiology tech for general surgery. Please note: Your surgeon may not be Mobile Disc Jockey, especially during the night or on weekends, [...] hear anything, please call the clinic at [phone] to confirm or reschedule. If you need a prior authorization, please call the General Surgery Clinic nurses [phone] for prior authorizations assistance General Instructions None [...] Yoni Ramírez MD Signed: Tracy Felipe APRN [facility] Surgical Oncology Service Team Pager #[phone] 09/05/17 [...] Take NSAIDS or Tylenol every 6 hours [id number] for the first 3-5 days following surgery [...] or grocery store, as it is available [id number] and does not require a prescription. The [...] please call the General Surgery nurse at [phone], since this may mean that you need [...] will be mailed to you Please call [phone] to confirm the date and time of your appointment if you do not hear from us in the next 2 weeks Call Doctor for: Call if you have trouble talking or breathing (call [phone] if this is severe) Call if you [...] with the Surgery nurses. The number is [phone]. - During the night or weekends call the [facility] turbo operator at [phone] and ask to speak to the surgery resident interventional radiology tech for general surgery. Please note: Your surgeon may not be Mobile Disc Jockey, especially during the night or on weekends, so be ready to describe yourself and your surgery when you call. Follow up appointments: Future Appointments Date Time Provider Department [place] 10/19/2017 10:30 AM LAB, [facility] 10/19/2017 11:30 AM Yanet Trujillo MD [facility] [x] Follow-up appointment with General Surgery has already been scheduled [] A request for a follow-up appointment has been made and you should receive information via phone/mail in the next week. If you do not hear anything, please call the clinic at [phone] to confirm or reschedule. If you need a prior authorization, please call the General Surgery Clinic nurses [phone] for prior authorizations assistance documented in this encounter Medications at Time of Discharge Medication Sig Dispensed Refills Start Date End Date ondansetron (ZOFRAN-ODT) 4 mg Tablet, Rapid Dissolve Take 4 mg by mouth every 8 hours as needed for Nausea. acetaminophen (TYLENOL) 500 mg Tablet Take 2 tablets by mouth every 6 hours as needed for Pain. 09/05/2017 ibuprofen (ADVIL;MOTRIN) 600 mg Tablet Take 1 [...] well. Pain is now well controlled with CONSTRUCTION SKILLS TEACHER started by anesthesia in PACU for uncontrolled [...] Progressing well postoperatively.Pain is well controlled with CONSTRUCTION SKILLS TEACHER and pt is currently stable. - Straight [...] potential plans and decided on a morphine CONSTRUCTION SKILLS TEACHER. 2114 CONSTRUCTION SKILLS TEACHER education provided for pt. documented in this encounter H&P Notes * Martinez Werner MD - 09/04/2017 11:58 AM EST [facility] Department of General Surgery Pre Procedure Note [...] ERCP performed by Duane Garcia MD at [facility] ??? 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 Ambulated in halls, tolerated activity well. Incision [...] Trujillo MD - 09/04/2017 4:23 PM EST [facility] Operative Note Patient Name: Jeff Arreguin : [id number] MR#: [id number] Case Date: 09/04/2017 Surgeon: Surgeon(s) and Role: [...] anesthesia was completed by anesthesiology with the [employer] recurrent laryngeal nerve monitoring system. A crease [...] Operative Note Patient Name: Jeff Arreguin : [id number] MR#: [id number] Case Date: 09/04/2017 Surgeon: Surgeon(s) and Role: [...] Routine 09/04/2017 6:09 PM EST INTRAOPERATIVE PTH (DH/CGP) STAT 09/04/2017 6:03 PM EST SPECIMEN TO PATHOLOGY Routine 09/04/2017 5:52 PM EST INTRAOPERATIVE PTH (DH/CGP) STAT 09/04/2017 4:49 PM EST INTRAOPERATIVE PTH ([facility]/CGP) STAT 09/04/2017 4:08 PM EST INTRAOPERATIVE PTH ([facility]/CGP) STAT 09/04/2017 4:02 PM EST SURGICAL PATHOLOGY REPORT Routine 2017 3:54 PM EST SPECIMEN TO PATHOLOGY STAT 09/04/2017 3:53 PM EST INTRAOPERATIVE PTH ([facility]/CGP) STAT 09/04/2017 3:35 PM EST FACIAL NERVE MONITORING, SETUP LARYNGEAL (WRVU 1.57) 09/04/2017 2:40 PM EST HPT PARATHYROIDECTOMY OR EXPLORATION OF PARATHYROID(S) (WRVU 15.6) 09/04/2017 2:40 PM EST HPT ECG SCAN 09/04/2017 12:00 AM EST documented in this encounter Results * Calcium (09/05/2017 5:20 AM EST) Calcium 9.3 8.5 - 10.5 mg/dL [facility] Blood specimen (specimen) 09/05/2017 5:20 AM EST 09/05/2017 5:20 AM EST Narrative Resulting Agency Comment Spec In Lab Yanet Trujillo MD CHEMISTRY ORDERAB LES Performing Organization Address City/[facility]/[place] [address] * Specimen to Pathology (09/04/2017 6:36 PM EST) AP Specimen 09/04/2017 6:36 PM EST 09/04/2017 6:44 PM EST Narrative [facility] - 09/04/2017 6:44 PM EST Specimen requisition ordered. ??Separate Pathology report to follow Resulting Agency Comment Spec In Lab Yanet Trujillo MD PATHOLOGY/CYTOLOG Y ORDERABLES Performing Organization Address City/[facility]/ZIP Co de Phone Number [facility] [place] [address] * Specimen to Pathology (09/04/2017 6:09 PM EST) AP Specimen 09/04/2017 6:09 PM EST 09/04/2017 6:09 PM EST Narrative [facility] - 09/04/2017 6:09 PM EST Specimen requisition ordered. ??Separate Pathology report to follow Yanet Trujillo MD PATHOLOGY/CYTOLOG Y ORDERABLES [facility] [place] [address] * Intraoperative PTH (Leb/CGP) (09/04/2017 6:03 PM EST) PTH, Intraoperative 32 9 - 77 pg/mL [facility] Comment: Called by: ERLIN, Read back by: Jennifer Salmeron, Date/Time:09/04/17 18:34. A 50 % decrease in venous iPTH levels at 10 min post adenoma excision is expected if all the hypersecreting parathyroid tissue has been removed (Tashi HAIRSTON et al. Surgery 1993:114; [id number]) Blood specimen (specimen) 09/04/2017 6:03 PM EST 09/04/2017 6:08 PM EST Narrative Resulting Agency Comment Spec In Lab Yanet Trujillo MD CHEMISTRY ORDERAB LES Performing Organization Address City/[facility]/ZIP Co de Phone Number [facility] [place] [place] [address] * Specimen to Pathology (09/04/2017 5:52 PM EST) AP Specimen 09/04/2017 5:52 PM EST 09/04/2017 5:52 PM EST Narrative [facility] - 09/04/2017 5:52 PM EST Specimen requisition ordered. ??Separate Pathology report to follow Yanet Trujillo MD PATHOLOGY/CYTOLOG Y ORDERABLES Performing Organization Address [facility] Co de Phone Number [facility] [place] [address] * (ABNORMAL) Intraoperative PTH (Leb/CGP) (09/04/2017 4:49 PM EST) PTH, Intraoperative 103(H) 9 - 77 pg/mL [facility] Comment: Called by: ERLIN, Read back by: Jennifer Salmeron, Date/Time:09/04/17 17:18. A 50 % decrease in venous iPTH levels at 10 min post adenoma excision is expected if all the hypersecreting parathyroid tissue has been removed (Tashi GL et al. Surgery 1993:114; [id number]) Blood specimen (specimen) 09/04/2017 4:49 PM EST 09/04/2017 4:52 PM EST Narrative Resulting Agency Comment Spec In Lab Yanet Trujillo MD CHEMISTRY ORDERAB LES Performing Organization Address [facility] Co de Phone Number [facility] [place] [address] * (ABNORMAL) Intraoperative PTH (Leb/CGP) (09/04/2017 4:08 PM EST) PTH, Intraoperative 174(H) 9 - 77 pg/mL [facility] Comment: Called by: GI, Read back by: Thao Nicole, Date/Time:09/04/17 16:40. A 50 % decrease in venous iPTH levels at 10 min post adenoma excision is expected if all the hypersecreting parathyroid tissue has been removed (Tashi GL et al. Surgery 1993:114; [id number]) Blood specimen (specimen) 09/04/2017 4:08 PM EST 09/04/2017 4:12 PM EST Narrative Resulting Agency Comment Spec In Lab Yanet Trujillo MD CHEMISTRY ORDERAB LES Performing Organization Address [facility] Co de Phone Number [facility] [place] [address] * (ABNORMAL) Intraoperative PTH (Leb/CGP) (09/04/2017 4:02 PM EST) PTH, Intraoperative 215(H) 9 - 77 pg/mL [facility] Comment: A 50 % decrease in venous iPTH levels at 10 min post adenoma excision is expected if all the hypersecreting parathyroid tissue has been removed (Tashi HAIRSTON et al. Surgery 1993:114; [id number]) Blood specimen (specimen) 09/04/2017 4:02 PM EST 09/04/2017 4:06 PM EST Narrative Resulting Agency Comment Spec In Lab Yanet Trujillo MD CHEMISTRY ORDERAB LES Performing Organization Address City/[facility] Co de Phone Number [facility] [place] [address] * Surgical Pathology Report (09/04/2017 3:54 PM EST) Final Diagnosis [id number] ? Location: [facility]; [facility]; A The signing pathologist has (i) examined [...] Nae Curiel Verified: ??09/06/2017 ?Pathologist Performed at: ??-[facility] Dept. of Pathology, [place], [place] DISCUSSION The intraoperathive PTH decreased from [...] x 0.6 x 0.3 cm. Tissue Description: Brownlee ovoid tissue. Sections/Processin g: (1) remainder of [...] serially sectioned and entirely submitted; (2-3) additional help desk representative sections of thymus. (R3) D - [...] MD Verified: ??09/04/2017 ?Dermatopathologi st Performed at: ??-[facility] Dept. of Pathology, [place], [place] This intraoperative consultation should be interpreted as a preliminary diagnosis pending review of the entire specimen and special studies, if any. ?Frozen Section FROZEN SECTION DIAGNOSIS AFS - Right upper parathyroid gland for frozen section: Parathyroid tissue. 09/04/17 16:12 Electronically signed by: ??Nae Gale MD Verified: ??09/04/2017 ?Pathologist Performed at: ??-[facility] Dept. of Pathology, [place], [place] This intraoperative consultation should be interpreted as a preliminary diagnosis pending review of the entire specimen and special studies, if any. 09/06/2017 4:33 PM [facility] LYMPH NODE SPECIMEN / Unknown 09/04/2017 3:54 PM EST 09/04/2017 3:54 PM EST Frozen Specimen 09/04/2017 3 :54 PM EST 09/04/2017 3:54 PM EST THYMUS GLAND STRUCTURE / Unknown 09/04/2017 3:54 PM EST 09/04/2017 3:54 PM EST LYMPH NODE SPECIMEN / Unknown 09/04/2017 3:54 PM EST 09/04/2017 3:54 PM EST Yanet Trujillo MD PATHOLOGY/CYTOLOG Y ORDERABLES Performing Organization Address [facility]/ZIP Co de Phone Number [facility] [place] [address] * Specimen to Pathology (09/04/2017 3:53 PM EST) AP Specimen 09/04/2017 3:53 PM EST 09/04/2017 3:53 PM EST Narrative [facility] - 09/04/2017 3:53 PM EST Specimen requisition ordered. ??Separate Pathology report to follow Yanet Trujillo MD PATHOLOGY/CYTOLOG Y ORDERABLES Performing Organization Address [facility] [place] [address] * (ABNORMAL) Intraoperative PTH (Leb/CGP) (09/04/2017 3:35 PM EST) PTH, Intraoperative 855(H) 9 - 77 pg/mL [facility] Comment: Called by: ERLIN, Read back by: Thao Nicole, Date/Time:09/04/17 16:05. A 50 % decrease in venous iPTH levels at 10 min post adenoma excision is expected if all the hypersecreting parathyroid tissue has been removed (Tashi GL et al. Surgery 1993:114; [id number]) Blood specimen (specimen) 09/04/2017 3:35 PM EST 09/04/2017 3:38 PM EST Narrative Resulting Agency Comment Spec In Lab Yanet Trujillo MD CHEMISTRY ORDERAB LES [facility] [place] [address] * SCAN DOC: ECG (09/04/2017 12:00 AM EST) Narrative 09/04/2017 12:00 AM EST Ordered by an unspecified provider. Scanning Provider MEDIA MGR SCAN EXT O RDR/RSLT documented in this encounter Visit Diagnoses Diagnosis Hyperparathyroidism Hyperparathyroidism, unspecified Hyperparathyroidism Hyperparathyroidism, unspecified documented in this encounter Admitting Diagnoses Diagnosis [...] Sun09/05/17 at 0758, Recovery (Recovery-Hospital Unit) [facility] 09/04/2017 9:44 PM EST 1,000 mLs 100 [...] AM EST 100 mg morphine 1 mg/mL CONSTRUCTION SKILLS TEACHER 50 mL Intravenous, CONSTRUCTION SKILLS TEACHER ONLY, Starting on Sun09/04/17 at 2100, Until Sun09/05/17 at 0758 New Syringe/Cartridge 09/04/2017 9:00 PM EST naloxone (NARCAN) injection 0.2 mg 0.2 mg, Intravenous, EVERY 1 MIN PRN, Starting on Sun09/04/17 at 2041, Until Sun09/05/17 at 1300, Opioid Reversal, May repeat every 60 seconds to increase respiratory rate. DO NOT exceed 2 mg total dose. Per CONSTRUCTION SKILLS TEACHER order., Routine ondansetron (ZOFRAN) injection 4 mg [...] Provider: Crystal Rivas RN) morphine 1 mg/mL CONSTRUCTION SKILLS TEACHER 50 mL (CANCELED) Intravenous, CONSTRUCTION SKILLS TEACHER ONLY, Starting on Sun09/04/17 at 2100, Until Sun09/05/17 at 0758 2100 (New Syringe/Cartridge - Provider: Yesenia Monteiro RN) PRN Medication Order 09/03/2017 09/04/2017 09/05/2017 BUpivacaine-EPINEPHrine 0.25 %-1:200,000 injection (CANCELED) ONCE PRN, Starting on Sun09/04/17 at 1518, Until Sun09/05/17 at 1300, Intra-Operative (Intra-Procedure), Routine 1517 (Given - Provider: Yanet Trujillo MD) hydrALAZINE [...] fentanyl for breakthrough pain., PACU Recovery, Routine 1938 (Given - Provider: Crystal Rivas RN)1945 (Given [...] NOT exceed 2 mg total dose. Per CONSTRUCTION SKILLS TEACHER order., Routine ondansetron (ZOFRAN) injection 4 mg [...] Routine documented in this encounter Care Teams Doctorate Of Chiropractic Relationship Specialty Start Date End Date Yoni Ramírez MD [address] [place] [address] PCP - General 07/05/10 documented as of this encounter
--- OUTSIDE RECORDS SUMMARY | 2024-09-23 11:35 | XMS_ITS | Encounter Summary ---
Author Organization [facility] [place] [address] Care Team Providers Care Range Aide Name Role Phone Yoni Ramírez MD Primary Care Provider Reason for Visit * Reason Comments Emesis Encounter Details Date Type Department Care Team (Late st Contact Info) Description 03/26/2014 6:33 AM EDT - 03/26/2014 11:58 AM EDT Emergency [place] [address] Wilbur Navarrete MD [facility] [place] [address] Nausea with vomiting Discharge Disposition: Home Social [...] vomiting things that look like coffee grounds. [facility] Nausea and Vomiting: After Your Visit [...] more? Visit our health information library at [email or web address] You can also view health information on [employer], your personal patient account. Log in or sign up today. Enter [id number] in the search box to learn more about Nausea and Vomiting: After Your Visit. ?? [id number] [employer]. Care instructions adapted under license by [facility]. This care instruction is for use with your licensed healthcare professional. If you have questions about a medical condition or this instruction, always ask your healthcare professional. [employer] disclaims any warranty or liability for your use of this information. Content Version: 9.9.441729; Last Revised: September 25, 2012 documented in [...] notified regarding patients voiding status. * Barbara Wleler RN - 03/26/2014 8:44 AM EDT Patient's [...] 1965 Admit date: 03/26/2014 Attending Physician: Wilbur Navarrete MD ED Med Student H&P 03/26/2014 HPI: [...] ERCP performed by Duane Garcia MD at [facility] PE: BP 107/67 Pulse 87 [...] precautions. Lencho Martinez, MS4 ED subintern, pager [phone] * ED Triage - Cassi Chavez RN [...] Lab Wilbur Navarrete MD HEMATOLOGY ORDERABLE S EVELYN OSCARENNIUM * (ABNORMAL) Hemogram (03/26/2014 6:45 AM [...] Lab Wilbur Navarrete MD HEMATOLOGY ORDERABLE S Performing Organization Address City/[facility] Co de Phone Number EVELYN OSCARENNIUM * (ABNORMAL) Hepatic Function Panel (03/26/2014 6:45 AM EDT) Pathologist [facility] Protein, Total 8.1 6.4 - 8.3 gm/dL [...] In Lab Wilbur Navarrete MD CHEMISTRY ORDERABLES CERNER MILLENNIUM * Lipase (03/26/2014 6:45 AM EDT) Lipase 34 0 - 60 unit/L [facility] Blood specimen (specimen) 03/26/2014 6:45 AM EDT 03/26/2014 8:54 AM EDT Narrative Resulting Agency Comment Spec In Lab Wilbur Navarrete MD CHEMISTRY ORDERABLES Performing Organization Address City/[facility]/ZIP Co de Phone Number [facility] * Glucose, random (03/26/2014 6:45 AM EDT) Glucose 135 60 - 199 mg/dL [facility] Comment:Diabetes: >=200 mg/d L plus symptoms Blood specimen (specimen) 03/26/2014 6:45 AM EDT 03/26/2014 8:54 AM EDT Narrative Resulting Agency Comment Spec In Lab Wilbur Navarrete MD CHEMISTRY ORDERABLES Performing Organization Address [facility] de Phone Number [facility] * (ABNORMAL) Creatinine (03/26/2014 6:45 AM EDT) Creatinine 1.32 0.80 - 1.50 mg/dL [facility] Comment: Please note that the pediatric reference intervals supplied above were not validated at [facility]. Results from pediatric patients should be interpreted in conjunction to the patient's age, height and muscle mass. Est Glomerular Filtration Rate 57(L) >=60 [facility] Comment: This estimated GFR (eGFR) value was [...] the following links into your internet browser. [email or web address] Blood specimen (specimen) 03/26/2014 6:45 AM EDT 03/26/2014 8:54 AM EDT Narrative Resulting Agency Comment Spec In Lab Wilbur Navarrete MD CHEMISTRY ORDERABLES Performing Organization Address [facility] de Phone Number CERDAYLIN OSCARENNIUM * (ABNORMAL) BUN (03/26/2014 6:45 AM EDT) Blood Urea Nitrogen 25(H) 10 - 20 mg/dL CERNER MILLENNIUM Blood specimen (specimen) 03/26/2014 6:45 AM EDT 03/26/2014 8:54 AM EDT Narrative Resulting Agency Comment Spec In Lab Wilbur Navarrete MD CHEMISTRY ORDERABLES Performing Organization Address [facility] Phone Number CERDAYLIN OSCARENNIUM * (ABNORMAL) Electrolytes panel (03/26/2014 6:45 AM [...] Navarrete MD CHEMISTRY ORDERABLES Performing Organization Address [facility] de Phone Number EVELYN GONZÁLESIUM * EKG 12 Lead (03/26/2014 6:44 AM EDT) Ventricular rate 68 BPM MUSE SYSTEM Atrial Rate 68 BPM MUSE SYSTEM P-R Interval 136 ms MUSE SYSTEM QRS Duration 78 ms MUSE SYSTEM Q-T Interval 396 ms MUSE SYSTEM QTC Calculated (Bezet) 421 ms MUSE SYSTEM Calculated P [place] 40 degrees MUSE SYSTEM Calculated R [place] 16 degrees MUSE SYSTEM Calculated T [place] 41 degrees MUSE SYSTEM INTERPRETATION Normal sinus rhythm with sinus arrhythmia Left atrial enlargement Borderline ECG No previous ECGs available Confirmed by MD Loraine, Tariq ([id number]) on 03/26/2014 11:40:53 PM MUSE SYSTEM 03/26/2014 6:44 AM EDT 03/26/2014 11:40 PM EDT Eleanor Mendoza MD ECG ORDERABLES MUSE SYSTEM documented in this encounter Visit Diagnoses Diagnosis Nausea with vomiting documented in this encounter Administered Medications [...] mg/2 mL injection 1 dose, Starting on Sun03/26/14 at 0648, Until Sun03/26/14 at 0650, CASSI CHAVEZ: cabinet override ondansetron (ZOFRAN) injection 4 mg 4 mg, Intravenous, ONCE, 1 dose, On Sun03/26/14 at 0730, STAT Given 03/26/2014 6:50 AM EDT 4 mg ondansetron (ZOFRAN) injection 4 mg 4 mg, Intravenous, ONCE, 1 dose, On Sun03/26/14 at 0800, STAT Given 03/26/2014 7:45 AM EDT 4 mg ondansetron (ZOFRAN) injection 4 mg 4 mg, Intravenous, ONCE, 1 dose, On 03/26/14 at 0845, STAT Given 03/26/2014 6:49 [...] RN) documented in this encounter Care Teams Range Aide Relationship Specialty Start Date End Date Yoni Ramírez MD [address] [place] [id number] PCP - General 07/05/10 documented as of this encounter
--- OUTSIDE RECORDS SUMMARY | 2024-09-23 11:35 | XMS_ITS | Encounter Summary ---
Author Organization [facility] [place] [address] Care Team Providers Care Hob Grinder Name Role Phone Yoni Ramírez MD Primary Care Provider [phone] Encounter Details Date Type Department Care Team (Latest Contact Info) Description 02/23/2017 - 02/23/2017 11:59 PM EDT Hospital Encounter Radiology Library at [facility] [place] [address] [address] Karishma Maurer MD [facility] [place] [address] Discharge Disposition: Home Social History Tobacco Use [...] CT Chest (02/23/2017 12:00 AM EDT) Narrative RONY - 05/23/2017 8:45 PM EDT This exam is for storage only and is auto-finalizing. Karishma Maurer MD IMG FILM LIBRARY ORDERABLES Performing Organization Address City/State/[facility] Co de Phone Number [place], [place] documented in this encounter Visit Diagnoses Not on filedocumented in this encounter Care Teams Hob Grinder Relationship Specialty Start Date End Date Yoni Ramírez MD [address] [place] [id number] PCP - General 07/05/10 documented as of this encounter
--- OUTSIDE RECORDS SUMMARY | 2024-09-23 11:35 | XMS_ITS | Encounter Summary ---
Author Organization [facility] [place] [address] Care Team Providers Care Equipment Operator Name Role Phone Yoni Ramírez MD Primary Care Provider Encounter Details Date Type Department Care Team (Latest Contact Info) Description 02/16/2017 - 02/16/2017 11:59 PM EDT Hospital Encounter Radiology Library at [facility] [address] [phone] Karishma Maurer MD [facility] [address] Discharge Disposition: Home Social History Tobacco Use [...] & Pelvis (02/16/2017 12:00 AM EDT) Narrative [facility] - 05/23/2017 8:44 PM EDT This exam is for storage only and is auto-finalizing. Karishma Maurer MD IMG FILM LIBRARY ORDERABLES Performing Organization Address City/State/[facility] Co de Phone Number [place], [place] documented in this encounter Visit Diagnoses Not on filedocumented in this encounter Care Teams Equipment Operator Relationship Specialty Start Date End Date Yoni Ramírez MD [address] [place] [phone] PCP - General 07/05/10 documented as of this encounter
--- OUTSIDE RECORDS SUMMARY | 2024-09-23 11:35 | XMS_ITS | Encounter Summary ---
Author Organization [facility] [address] Care Team Providers Care Third Rigger Name Role Phone Yoni Ramírez MD Primary Care Provider Reason for Referral * Physical Therapy (Routine) - Closed Specialty Diagnoses / Procedures Referred By Guillermo beckham Referred To Contact Physical Therapy Diagnoses Lower urinary tract symptoms (LUTS) Ino Enamorado MD [facility] [place] [address] Physical Therapy, [place] [address] [place] [address] Referral ID Status Reason Start Date Expiration Date V isits Requested Visits Authorized [id number] Closed Evaluate and Treat 05/09/2021 11/05/2021 12 12 Reason for Visit * Consultation (Routine) - Closed Specialty Diagnoses / Procedures Referred By Guillermo beckham Referred To Contact Urology Diagnoses BPH with obstruction/lower urinary tract symptoms BPH - SURGICAL DISCUSSION Aguila Altman MD [address] [place] [phone] Ino Enamorado MD [facility] [place] [address] Referral ID Status Reason Start Date Expiration Date V isits Requested Visits Authorized [id number] Closed Consult, Test & Treat 04/04/2021 04/04/2022 1 1 Encounter Details Date Type Department Care Team (Latest Contact Info) Description 05/09/2021 1:40 PM EDT TH Visit (TeleHealth) [place] [address] Ino Enamorado MD [facility] [address] Lower urinary tract symptoms (LUTS) Social History [...] symptoms (LUTS) Other symptoms involving urinary system documented in this encounter Care Teams Third Rigger Relationship Specialty Start Date End Date Yoni Ramírez MD [address] [place] [phone] PCP - General 07/05/10 documented as of this encounter
--- OUTSIDE RECORDS SUMMARY | 2024-09-23 11:35 | XMS_ITS | Encounter Summary ---
[place] [address] Care Team Providers Care Retread Technician Name Role Phone Yoni Ramírez MD [...] Expiration Date Visits Re quested Visits Authorized [id number] 1 1 Encounter Details Date Type Department Care Team (Late st Contact Info) Description 09/04/2017 2:34 PM EST Anesthesia Event [place] [address] Ramiro Bonner MD [facility] [place] [address] Jose Navarro MD Anesthesia Record Procedure Summary [...] anesthetic/surgical status and plan, according to the [facility] Provider Handoff Checklist. 1849 Extubation/LMA Out 1851 [...] 1248; metacarpal vein (top of hand), left; [id number] catheter system; 20 gauge; lyndon [place]; distraction, [...] Time: 184909/04/17 1506 by Mili Obrien I, SENIOR PHYSICAL THERAPIST 09/04/17 1850 by Fei Burdick, SENIOR PHYSICAL THERAPIST Incision 09/04/17; 1517; neck ; horizontal; LDA [...] Bonner MD - 09/04/2017 8:47 PM EST [facility] Department of Anesthesiology Post-procedure Note Patient: Jeff Arreguin Procedure Summary Date Anesthesia Start Anesthesia Stop Room / Location 09/04/[address] [facility] MAIN OR Procedure Diagnosis Surgeon Responsible Provider PARATHYROIDECTOMY OR EXPLORATION OF PARATHYROID(S) (WRVU 15.6) (N/A Neck); FACIAL NERVE MONITORING,SETUP LARYNGEAL (WRVU 1.57) (N/A Neck) (HPT) Karishma Maurer MD Pouliot, Ryan C, MD All Anesthesia Providers: Anesthesiologist: Fabio Lockwood MD; Edwina Arnold DO; Ramiro Bonner MD; Jose Navarro MD SENIOR PHYSICAL THERAPIST: Fei Burdick CRNA; Mili Obrien CRNA Most Recent Vitals: 09/04/171999 BP: 161/80 Pulse: 60 Resp: 20 Temp: SpO2: 97% Pain 10 (09/04/172022) Patient Location: PACU/[facility] Level of Consciousness: Awake and Alert Pain [...] performed by Duane Garcia MD at [facility] ENDOSCOPY ??? TONSILLECTOMY Social History Substance Use [...] risks discussed with patient. Plan discussed with SENIOR PHYSICAL THERAPIST. PAT Staff Note documented in this encounter [...] Until Sun09/04/17 at 1909, Anesthesia Intra-op, Routine New Bag 09/04/2017 2:56 PM EST 20 mcg/kg/min 11.8 mL/hr lactated Ringers infusion CONTINUOUS PRN, Starting on Sun09/04/17 at 1415, Until Sun09/04/17 at 1909, Anesthesia Intra-op New Bag 09/04/2017 2:15 PM EST lidocaine (PF) (XYLOCAINE) 100 mg/5 mL (2 %) injection PRN, Starting on Sun09/04/17 at 1449, Until Sun09/04/17 at 1909, Anesthesia Intra-op, Routine Given 09/04/2017 2:49 PM EST 40 mg midazolam (PF) (VERSED) 1 mg/mL multi-dose injection PRN, Starting on Sun09/04/17 at 1434, Until Sun09/04/17 at 1909, Sleep, Anesthesia Intra-op, Routine Given 09/04/2017 2:34 PM EST 2 mg ondansetron (ZOFRAN) injection PRN, Starting on Sun09/04/17 at 1611, Until Sun09/04/17 at 1909, Nausea, Anesthesia Intra-op, Routine Given 09/04/2017 6:45 PM EST 4 mg Given 09/04/2017 4:11 PM EST 8 mg PHENYLephrine in NS (PF) (TERELL-SYNEPHRINE) 0.8 mg/10 mL (80 mcg/mL) multi-dose injection Syrg PRN, Starting on Sun09/04/17 at 1602, Until Sun09/04/17 at 1909, Anesthesia Intra-op, Routine Given 09/04/2017 4:02 PM EST 80 mcg Given 09/04/2017 3:21 PM EST 80 mcg propofol (DIPRIVAN) 10 mg/mL bolus injection (Anesthesia) PRN, Starting on Sun09/04/17 at 1449, Until Sun09/04/17 at 1909, Anesthesia Intra-op Given 09/04/2017 4:42 PM EST [...] mg documented in this encounter Care Teams Retread Technician Relationship Specialty Start Date End Date Yoni Ramírez MD [address] [place] [phone] PCP - General 07/05/10 documented as of this encounter
--- OUTSIDE RECORDS SUMMARY | 2024-09-23 11:35 | XMS_ITS | Encounter Summary ---
Author Organization [facility] [place] [address] Care Team Providers Care Technical Adjuster Name Role Phone Yoni Ramírez MD Primary Care Provider Encounter Details Date Type Department Care Team (Latest Contact Info) Description 05/24/2017 Multidisciplinary Ca re Committee [place] [address] Karishma Maurer MD [facility] [place] [address] Elevated calcitonin level Social History Tobacco Use [...] 12:33 PM EDT) Molecular Pathology Hold Complete [facility] Blood specimen (specimen) 05/30/2017 12:33 PM EDT 05/30/2017 5:06 PM EDT Narrative Resulting Agency Comment Spec In Lab Karishma Maurer MD MOLECULAR ORDERAB LES [facility] [place] [address] documented in this encounter Visit Diagnoses Diagnosis Elevated calcitonin level documented in this encounter Care Teams Technical Adjuster Relationship Specialty Start Date End Date Yoni Ramírez MD [address] [address] PCP - General 07/05/10 documented as of this encounter
--- OUTSIDE RECORDS SUMMARY | 2024-09-23 11:35 | XMS_ITS | Encounter Summary ---
[place] [address] Care Team Providers Care Rewriter Name Role Phone Yoni Ramírez MD Primary Care Provider Reason for Referral * Consultation (Routine) - Closed Specialty Diagnoses / Procedures Referred By Contac t Referred To Contact General Surgery Diagnoses Primary hyperparathyroidism Mar Lozada MD [facility] DR ENDOCRINOLOGY DEPT [place] [phone] Karishma Maurer MD [facility] [place] [place] [address] Referral ID Status Reason Start Date Expiration Date V isits Requested Visits Authorized [id number] Closed Consult, Test & Treat 02/21/2017 02/21/2018 1 1 Reason for Visit * Consultation (Routine) - Closed Specialty Diagnoses / Procedures Referred By Contac t Referred To Contact Endocrinology Diagnoses Hyperparathyroidism hyperparathyroidism Procedures consult and treat Yoni Ramírez MD [address] [address] [facility] [place] Endocrinology [address] [place] [phone] Referral ID Status Reason Start Date Expiration Date Visits Re quested Visits Authorized [id number] Closed 01/31/2017 01/31/2018 1 1 Encounter Details Date Type Department Care Team (Latest Contact Info) Description 02/20/2017 3:00 PM EDT Office Visit [place] [address] Breezy Elizalde [facility] [place] [address] Mar Lozada MD Primary hyperparathyroidism Social History [...] ERCP performed by Duane Garcia MD at [facility] ENDOSCOPY ??? FOOT SURGERY left ??? 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 Tobacco: Ex-smoker, quit 5 years ago; 2ppd [...] them as documented. Breezy Elizalde DO, [place] [employer] M[employer]mong[employer] worker Section of Endocrinology [facility] documented in this encounter Plan of Treatment [...] 4:53 PM EDT) Calcium, Urine 20.6 mg/dL [facility] Creatinine, Urine 155 mg/dL [facility] Calcium / Creatinine Ratio, Urine 0.13 ratio [facility] Urine specimen (specimen) 02/20/2017 4:53 PM EDT 02/20/2017 4:58 PM EDT Narrative Resulting Agency Comment Spec In Lab Breezy Elizalde DO URINE ORDERABLES Performing Organization Address [facility] [[email or web address]] [place] [address] * (ABNORMAL) Calcitonin (02/20/2017 4:50 PM EDT) Calcitonin Lvl (QST) 22(H) <=10 pg/mL [facility] Comment: This test was performed using the Siemens (DPC) Chemiluminescent method. Values obtained with different assay methods cannot be used interchangeably. Calcitonin levels, regardless of value, should not be interpreted as absolute evidence of the presence or absence of the disease. Test Performed by [facility], [facility], [address] [place] [address] Jason Fox M.D., Ph.D., Director of Laboratories , [place] [id number] Blood specimen (specimen) 02/20/2017 4:50 PM EDT 02/21/2017 11:34 AM EDT Narrative Resulting Agency Comment Spec In Lab Breezy Elizalde DO LAB SEND OUT ORDERAB LES Performing Organization Address [facility] Co de Phone Number [facility] [place] [address] * (ABNORMAL) Calcium (02/20/2017 4:50 PM EDT) Calcium 10.6(H) 8.5 - 10.5 mg/dL [facility] Blood specimen (specimen) 02/20/2017 4:50 PM EDT 02/20/2017 4:57 PM EDT Narrative Resulting Agency Comment Spec In Lab Breezy Elizalde DO CHEMISTRY ORDERABLES Performing Organization Address City/[facility]/ZIP Co de Phone Number [facility] [place] [address] * (ABNORMAL) PTH (02/20/2017 4:50 PM EDT) Parathyroid Hormone 138(H) 15 - 65 pg/mL [facility] Blood specimen (specimen) 02/20/2017 4:50 PM EDT 02/20/2017 4:57 PM EDT Narrative Resulting Agency Comment Spec In Lab Breezy Elizalde DO CHEMISTRY ORDERABLES Performing Organization Address City/[facility] Co de Phone Number [facility] [place] [address] documented in this encounter Visit Diagnoses Diagnosis Primary hyperparathyroidism documented in this encounter Care Teams Rewriter Relationship Specialty Start Date End Date Yoni Ramírez MD [address] [place] [phone] PCP - General 07/05/10 documented as of this encounter
--- OUTSIDE RECORDS SUMMARY | 2024-09-23 11:35 | XMS_ITS | Encounter Summary ---
Author Organization [facility] [place] [address] Care Team Providers Care Confectionery Maker Name Role Phone Yoni Ramírez MD Primary Care Provider Encounter Details Date Type Department Care Team (Latest Contact Info) Description 06/04/2017 12:15 AM EDT - 06/04/2017 11:59 PM EDT Hospital Encounter Radiology Library at [facility] [address] [address] Karishma Maurer MD [facility] [place] [place] [address] Discharge Disposition: Home Social History Tobacco Use [...] IMG FILM LIBRARY ORDERABLES Performing Organization Address City/State/[facility] Co de Phone Number [place], [place] documented in this encounter Visit Diagnoses Not on filedocumented in this encounter Care Teams Confectionery Maker Relationship Specialty Start Date End Date Yoni Ramírez MD [address] [place] [address] PCP - General 07/05/10 documented as of this encounter
--- OUTSIDE RECORDS SUMMARY | 2024-09-23 11:35 | XMS_ITS | Encounter Summary ---
[place] [address] Care Team Providers Care Political Reporter Name Role Phone Yoni Ramírez MD Primary Care Provider Encounter Details Date Type Department Care Team (Latest Contact Info) Description 05/30/2017 12:15 PM EDT Laboratory Appointment Lab [address] [place] [id number] Elevated calcitonin level; Hypertension, unspecified type; Hyperparathyroidism [...] 05/30/2017 12:33 PM EDT Hyperparathyroidism , primary [facility] [place] Routine 05/30/2017 12:33 PM EDT [facility] QUEST TEST-QUEST Routine 05/30/2017 12:33 PM EDT CALCIUM IONIZED SERUM Routine 05/30/2017 12:33 PM EDT Hyperparathyroidism , primary CREATININE Routine 05/30/2017 12:33 PM EDT Hypertension, unspecified type VITAMIN D, 25-HYDROXY Routine 05/30/2017 12:33 PM EDT Hyperparathyroidism , primary PROLACTIN Routine 05/30/2017 12:33 PM EDT Hyperparathyroidism , primary CALCIUM Routine 05/30/2017 12:33 PM EDT Hyperparathyroidism , primary MISCELLANEOUS LAB REQUEST Routine 05/30/2017 11:40 AM EDT Hyperparathyroidism , primary [facility] WEIR TEST-WEIR Routine 05/30/2017 1 1:40 AM EDT GOLD TUBE HOLD Routine 05/30/2017 11:40 AM EDT documented in this encounter Results * [facility] Quest Test-Quest (05/30/2017 12:33 PM EDT) [facility] Quest FLEXITEST 2 [facility] Comment: FLEXITEST 2 TESTS RESULTS--------UNITS--REF. RANGE--- Result ?SEE NOTE NEGATIVE; NO CLINICALLY SIGNIFICANT VARIANTS IDENTIFIED Reviewer ?SEE NOTE Laboratory testing supervised and results monitored by Jennifer Quintana MD, FCAP, [facility]. Resource ?SEE NOTE Visit http://www.[employer].YongChe/ for answers to frequently asked questions, physician information, patient materials, and testing resources. Call 2-028-VFSO-INFO ( ) for genetic counseling consultations, [employer] pre-authorization services, links to patient genetic counseling, [...] of the 5-tier system recommended by the [employer] [employer] (PMID 29480277). The following NCBI reference transcript sequence was utilized for analysis: RET (NM 432119.4). Limitations: This assay cannot detect variants affecting [...] is reclassified and this has clinical implications, [facility] will endeavor to contact the ordering provider. Providers may contact [facility] at [employer] ([phone]) for assistance with result interpretation, questions about variant classification, or to discuss additional testing. This test was developed and its analytical performance characteristics have been determined by [facility]. It has not been cleared or approved by FDA. This assay has been validated pursuant to the CLIA regulations and is used for clinical purposes. Comments ?SEE NOTE Test performed by: ? [facility] ? [address] ? [place] [address] ? Phone: ??[phone] Director: ??Emmanuel Austin M.D. Test Reported by [facility], [facility], [address] [place], [place] Jason Fox M.D., Ph.D., Director of Laboratories , [facility] [id number] Corrected report.Testing for Rtt Sequencing,Deletion and duplication and also testing for MEN1 See scan report 06/25/2017 FLEXITEST 2 TESTS RESULTS--------UNITS--REF. RANGE--- Result ?SEE NOTE NEGATIVE; NO CLINICALLY SIGNIFICANT VARIANTS IDENTIFIED Reviewer ?SEE NOTE Laboratory testing supervised and results monitored by Jennifer Quintana MD, [facility], [facility]. Resource ?SEE NOTE Visit http://www.[employer]/ for answers to frequently asked questions, physician information, patient materials, and testing resources. Call 6-090-FRNY-INFO ( ) for genetic counseling consultations, [employer] pre-authorization services, links to patient genetic counseling, [...] of the 5-tier system recommended by the [place] [employer] (PMID 05029411). The following NCBI reference transcript sequence was utilized for analysis: RET (NM 140544.4). Limitations: This assay cannot detect variants affecting [...] is reclassified and this has clinical implications, [facility] will endeavor to contact the ordering provider. Providers may contact [facility] at [facility] ([phone]) for assistance with result interpretation, questions about variant classification, or to discuss additional testing. This test was developed and its analytical performance characteristics have been determined by [facility]. It has not been cleared or approved by FDA. This assay has been validated pursuant to the CLIA regulations and is used for clinical purposes. Comments ?SEE NOTE Test performed by: ? [facility] [place] ? [address] ? [place] [address] ? Phone: ??[phone] Director: ??Emmanuel Austin M.D. Test Reported by Indira Limon, [facility], [address] [place] [address] Jason Fox M.D., Ph.D., Director of Laboratories , [facility] [id number] Corrected from FLEXITEST 2 [NA] on 06/25/17 12:43 by Christy Singh Specimen of unknown material (specimen) Other / Unknown 05/30/2017 12:33 PM EDT 06/06/2017 3:06 PM EDT Narrative Resulting Agency Comment Spec In Lab Karishma Maurer MD LAB SEND OUT KYLIE HUDSON Performing Organization Address [facility] Co de Phone Number [facility] [place] [address] * Misc Sendout (05/30/2017 12:33 PM EDT) [facility] [place] See Note [facility] Comment: The ordered test is: ret Performed by: order error Specimen of unknown material (specimen) Other / Unknown 05/30/2017 12:33 PM EDT 06/06/2017 11:33 AM EDT Karishma Maurer MD LAB SEND OUT KYLIE BECCA Performing Organization Address [facility]/ZIP Co de Phone Number [facility] [place] [address] * Prolactin (05/30/2017 12:33 PM EDT) Prolactin 5.7 4.0 - 15.2 ng/mL [facility] Blood specimen (specimen) 05/30/2017 12:33 PM EDT 05/30/2017 12:41 PM EDT Narrative Resulting Agency Comment Spec In Lab Karishma Maurer MD CHEMISTRY ORDERAB LES Performing Organization Address City/[facility]/ZIP Co de Phone Number [facility] [place] [address] * (ABNORMAL) Calcium, Ionized, Serum (05/30/2017 12:33 PM EDT) Ionized Calcium 1.44(H) 1.15 - 1.33 mmol/L [facility] Comment: Note: Total bilirubin higher than 20 mg/dL may lead to falsely low ionized calcium. Blood specimen (specimen) 05/30/2017 12:33 PM EDT 05/30/2017 12:41 PM EDT Narrative Resulting Agency Comment Spec In Lab Karishma Maurer MD CHEMISTRY ORDERAB LES [facility] [place] [address] * (ABNORMAL) Vitamin D, 25-Hydroxy (05/30/2017 12:33 PM EDT) Vitamin D Total 25 OH 29(L) 30 - 100 ng/mL [facility] Comment: Deficient <10 ng/mL Insufficient 10 to 29 ng/mL Sufficient 30 to 100 ng/mL Potential Intoxication >100 ng/mL According to the US National Osteoporosis Foundation, Vitamin D concentrations >30 ng/mL are sufficient to protect bone health. ??The National Kidney Foundation has similarly stated that patients with Vitamin D concentrations <30ng/mL should be considered to be insufficient or deficient. http://[employer].YongChe/nkf-guidelines http://[employer].YongChe/nejm-VitD The IDS iSYS Vitamin D Immunoassay detects both 25-OH Vitamin D2 and 25-OH Vitamin D3, but only a total Vitamin D concentration is reported. Blood specimen (specimen) 05/30/2017 12:33 PM EDT 05/30/2017 2:53 PM EDT Narrative Resulting Agency Comment Spec In Lab Karishma Maurer MD CHEMISTRY ORDERAB LES [facility] [place] [address] * (ABNORMAL) PTH (05/30/2017 12:33 PM EDT) Parathyroid Hormone 131(H) 15 - 65 pg/mL [facility] Blood specimen (specimen) 05/30/2017 12:33 PM EDT 05/30/2017 12:41 PM EDT Narrative Resulting Agency Comment Spec In Lab Karishma Maurer MD CHEMISTRY ORDERAB LES Performing Organization Address City/[facility] Co de Phone Number [facility] [place] [address] * (ABNORMAL) Calcium (05/30/2017 12:33 PM EDT) Calcium 11.8(H) 8.5 - 10.5 mg/dL [facility] Blood specimen (specimen) 05/30/2017 12:33 PM EDT 05/30/2017 12:41 PM EDT Narrative Resulting Agency Comment Spec In Lab Karishma Maurer MD CHEMISTRY ORDERAB LES Performing Organization Address [facility] Co de Phone Number [facility] [place] [address] * Creatinine (05/30/2017 12:33 PM EDT) Creatinine 0.99 0.80 - 1.50 mg/dL [facility] Est Glomerular Filtration Rate >60 >=60 [facility] Comment: The reported eGFR should be multiplied by 1.2 for patients. The MDRD is not an appropriate measure of renal function for patients with body mass extremes or in patients with acute kidney failure. http://[employer]Mod[employer].YongChe/DHnkdep http://ColorModules.com/DHMCnkf Blood specimen (specimen) 05/30/2017 12:33 PM EDT 05/30/2017 12:41 PM EDT Narrative Resulting Agency Comment Spec In Lab Karishma Maurer MD CHEMISTRY ORDERAB LES Performing Organization Address [facility] Co de Phone Number [facility] [place] [phone] * Molecular Pathology Hold (05/30/2017 12:33 PM EDT) Molecular Pathology Hold Complete [facility] Blood specimen (specimen) 05/30/2017 12:33 PM EDT 05/30/2017 5:06 PM EDT Narrative Resulting Agency Comment Spec In Lab Karishma Maurer MD MOLECULAR ORDERAB LES Performing Organization Address [facility] Co de Phone Number [facility] [place] [address] * Gold Tube HOLD (05/30/2017 11:40 AM EDT) Pathologist [facility] Gold Hold Sample in lab. [facility] Blood specimen (specimen) No Charge / Unknown 05/30/2017 11:40 AM EDT 05/30/2017 1:19 PM EDT Karishma Maurer MD CHEMISTRY ORDERAB LES Performing Organization Address [facility] Co de Phone Number [facility] [place] [address] * [facility] Weir Test-Weir (05/30/2017 11:40 AM EDT) [facility] Weir Test ? Result ? Flag ??Unit [...] method is an immunoenzymatic assay ?manufactured by [employer] and performed on the ?[employer] 2000. ?Values obtained with different assay methods or kits ?may be different and cannot be used interchangeably. ?Test results cannot be interpreted as absolute ?evidence for the presence or absence of ?malignant disease. ??Site ? Left ?Test Performed by: ?[facility] ?[address] [place] [address] [facility] Body fluid specimen (specimen) Other / Unknown 05/30/2017 11:40 AM EDT 05/30/2017 1:20 PM EDT Narrative Resulting Agency Comment Spec In Lab Karishma Maurer MD LAB SEND OUT KYLIE HUDSON [facility] [place] [address] * Miscellaneous Lab request (05/30/2017 11:40 AM EDT) Label Request received in lab. [facility] Specimen of unknown material (specimen) 05/30/2017 11:40 AM EDT 05/30/2017 12:22 PM EDT Narrative Resulting Agency Comment Spec In Lab Karishma Maurer MD LAB SEND OUT KYLIE HUDSON [facility] [place] [address] documented in this encounter Visit Diagnoses Diagnosis Elevated calcitonin level Hypertension, unspecified type Hyperparathyroidism, primary Primary hyperparathyroidism documented in this encounter Care Teams Political Reporter Relationship Specialty Start Date End Date Yoni Ramírez MD [address] [place] [address] PCP - General 07/05/10 documented as of this encounter
--- OUTSIDE RECORDS SUMMARY | 2024-09-23 11:35 | XMS_ITS | Encounter Summary ---
Author Organization [facility] [place] [address] Care Team Providers Care Heater Helper Forge Name Role Phone Yoni Ramírez MD Primary Care Provider [phone] Encounter Details Date Type Department Care Team (Late st Contact Info) Description 09/23/2021 [place] [phone] Ino Enamorado MD [facility] [place] [address] Social History Tobacco Use Types Packs/Day Years [...] asked that the imaging be sent to [facility] for my review. The imaging was uploaded [...] for surgery and difficulty scheduling patients at [facility] right now. I explained the earliest we [...] PVP as soon as we can at [facility] or [facility]. PLAN - Recommend repeat PSA - Recommend considering urine cytology - UCx - schedule a cysto, TURP and greenlight PVP as soon as we can at [facility] or [facility]. - But if cysto, bladder neck biopsy can be done sooner with Dr. Altman I would recommend that so asnot to delay his diagnosis Ino Enamorado MD 09/23/2021 1:21 PM documented in this encounter Plan of Treatment Not on file documented as of this encounter Visit Diagnoses Not on filedocumented in this encounter Care Teams Heater Helper Forge Relationship Specialty Start Date End Date Yoni Ramírez MD [address] [place] [id number] PCP - General 07/05/10 documented as of this encounter
--- OUTSIDE RECORDS SUMMARY | 2024-09-23 11:35 | XMS_ITS | Encounter Summary ---
Author Organization [facility] [place] [address] Care Team Providers Care Boat Cleaner Name Role Phone Yoni Ramírez MD Primary Care Provider [phone] Reason for Visit * Reason Comments Follow-up Encounter Details Date Type Department Care Team (Late st Contact Info) Description 05/30/2017 11:00 AM EDT Office [place] [address] [facility] [place] [address] Hyperparathyroidism, primary Social History Tobacco Use Types [...] He will be having chest CT at [facility] soon for follow-up of the lung nodule. [...] 05/30/2017 12:10 PM EDT Hyperparathyroidis m, primary NON-LOCK SETTER FINAL REPORT Routine 05/30/2017 11:40 AM EDT FINE NEEDLE ASPIRATE PTH Routine 05/30/2017 11:40 AM EDT Hyperparathyroidis m, primary documented in this encounter Results * Prolactin (05/30/2017 12:33 PM EDT) Prolactin 5.7 4.0 - 15.2 ng/mL [facility] Blood specimen (specimen) 05/30/2017 12:33 PM EDT 05/30/2017 12:41 PM EDT Narrative Resulting Agency Comment Spec In Lab Karishma Maurer MD CHEMISTRY ORDERAB LES Performing Organization Address City/[facility]/ZIP Co de Phone Number [facility] [place] [address] * (ABNORMAL) Calcium, Ionized, Serum (05/30/2017 12:33 PM EDT) Ionized Calcium 1.44(H) 1.15 - 1.33 mmol/L [facility] Comment: Note: Total bilirubin higher than 20 mg/dL may lead to falsely low ionized calcium. Blood specimen (specimen) 05/30/2017 12:33 PM EDT 05/30/2017 12:41 PM EDT Narrative Resulting Agency Comment Spec In Lab Karishma Maurer MD CHEMISTRY ORDERAB LES [facility] [place] [address] * (ABNORMAL) Vitamin D, 25-Hydroxy (05/30/2017 12:33 PM EDT) Vitamin D Total 25 OH 29(L) 30 - 100 ng/mL [facility] Comment: Deficient <10 ng/mL Insufficient 10 to 29 ng/mL Sufficient 30 to 100 ng/mL Potential Intoxication >100 ng/mL According to the US National Osteoporosis Foundation, Vitamin D concentrations >30 ng/mL are sufficient to protect bone health. ??The National Kidney Foundation has similarly stated that patients with Vitamin D concentrations <30ng/mL should be considered to be insufficient or deficient. http://Wild Pockets/nkf-guidelines http://[employer]/nejm-VitD The IDS iSYS Vitamin D Immunoassay detects both 25-OH Vitamin D2 and 25-OH Vitamin D3, but only a total Vitamin D concentration is reported. Blood specimen (specimen) 05/30/2017 12:33 PM EDT 05/30/2017 2:53 PM EDT Narrative Resulting Agency Comment Spec In Lab Karishma Maurer MD CHEMISTRY ORDERAB LES Performing Organization Address [facility] Co de Phone Number [facility] [place] [address] * (ABNORMAL) PTH (05/30/2017 12:33 PM EDT) Parathyroid Hormone 131(H) 15 - 65 pg/mL [facility] Blood specimen (specimen) 05/30/2017 12:33 PM EDT 05/30/2017 12:41 PM EDT Narrative Resulting Agency Comment Spec In Lab Karishma Maurer MD CHEMISTRY ORDERAB LES Performing Organization Address [facility] Co de Phone Number [facility] [place] [address] * (ABNORMAL) Calcium (05/30/2017 12:33 PM EDT) Calcium 11.8(H) 8.5 - 10.5 mg/dL [facility] Blood specimen (specimen) 05/30/2017 12:33 PM EDT 05/30/2017 12:41 PM EDT Narrative Resulting Agency Comment Spec In Lab Karishma Maurer MD CHEMISTRY ORDERAB LES Performing Organization Address [facility]/ZIP Co de Phone Number [facility] [place] [address] * Cytopathology Non-Gynecological (05/30/2017 12:10 PM EDT) AP Specimen 05/30/2017 12:1 0 PM EDT 05/30/2017 12:10 PM EDT Narrative [facility] - 05/30/2017 12:10 PM EDT Specimen requisition ordered. ??Separate Pathology report to follow Karishma Maurer MD PATHOLOGY/CYTOLOG Y ORDERABLES Performing Organization Address [facility] Co de Phone Number [facility] [place] [address] * Non-Corporate Sales Trainer Final Report (05/30/2017 11:40 AM EDT) Diagnosis Discussion [id number] ? Location: 4L The signing pathologist has (i) examined the relevant preparation(s) for the specimen(s) and (ii) rendered or confirmed the diagnosis(es). . ? Non-Corporate Sales Trainer Final DIAGNOSIS See Discussion Electronically signed by: ??Anjum MAYES, Eladio Curiel Verified: ??06/01/2017 ?Cytopathologist Performed at: ??-[facility] Dept. of Pathology, [place], [place] DISCUSSION Left paratracheal nodule (US-guided FNA): Hypocellular sample. A rare minute group of epithelioid cells and scattered neutrophils and lymphocytes are present in a sample that appears to be composed predominantly of blood. Non-diagnostic. The material likely is not fully inventory representative of the target lesion. (Cell block [...] Cell Block 1. 06/01/2017 12:43 PM EDT [facility] Misc. FNA 05/30/2017 11:4 0 AM EDT 05/30/2017 11:40 AM EDT Karishma Maurer MD PATHOLOGY/CYTOLOG Y ORDERABLES Performing Organization Address [facility]/ZIP Co de Phone Number [facility] [place] [address] * Fine Needle Aspirate PTH (05/30/2017 11:40 AM EDT) FNA PTH 15 < OR = 30 pg/mL [facility] Comment: Any detectable Intact PTH [...] or absence of disease. Test performed by: [facility] [address] [place] [address] Specimen obtained by fine needle aspiration procedure (specimen) 05/30/2017 11:40 AM EDT 05/30/2017 1:18 PM EDT Narrative Resulting Agency Comment Spec In Lab Karishma Maurer MD LAB SEND OUT ORDE RABLES Performing Organization Address City/[facility]/ZIP Co de Phone Number [facility] [place] [address] * Miscellaneous Lab request (05/30/2017 11:40 AM EDT) Label Request received in lab. [facility] Specimen of unknown material (specimen) 05/30/2017 11:40 AM EDT 05/30/2017 12:22 PM EDT Narrative Resulting Agency Comment Spec In Lab Karishma Maurer MD LAB SEND OUT KYLIE Werner Organization Address City/State/ZIP Co de Phone Number [facility] [place] [address] documented in this encounter Visit Diagnoses Diagnosis Hyperparathyroidism, primary Primary hyperparathyroidism documented in this encounter Care Teams Boat Cleaner Relationship Specialty Start Date End Date Yoni Ramírez MD [address] [place] [id number] PCP - General 07/05/10 documented as of this encounter
--- OUTSIDE RECORDS SUMMARY | 2024-09-23 11:35 | XMS_ITS | Encounter Summary ---
Author Organization [facility] [place] [place] [address] Care Team Providers Care Tread Booker Name Role Phone Yoni Ramírez MD Primary Care Provider Encounter Details Date Type Department Care Team (Late st Contact Info) Description 04/05/2020 Ancillary Procedure Radiology Library [facility] [address] [phone] Yoni Ramírez MD [address] [address] Social History Tobacco Use Types Packs/Day Years [...] & Pelvis (04/05/2020 12:00 AM EDT) Narrative [facility] - 09/22/2021 9:15 AM EST This exam is auto-finalizing. It's purpose is for storage only. Yoni Ramírez MD IMG FILM LIBRARY ORD ERABLES [facility] [place], [place] documented in this encounter Visit Diagnoses Not on filedocumented in this encounter Care Teams Tread Booker Relationship Specialty Start Date End Date Yoni Ramírez MD [address] [place] [id number] PCP - General 07/05/10 documented as of this encounter
--- OUTSIDE RECORDS SUMMARY | 2024-09-23 11:35 | XMS_ITS | Encounter Summary ---
[facility] Organization [facility] [place] [address] Care Team Providers Care Dispute Resolution Specialist Name Role Phone Yoni Ramírez MD [...] Expiration Date Visits Re quested Visits Authorized [id number] 1 1 Encounter Details Date Type Department Care Team (Late st Contact Info) Description 09/04/2017 1:10 PM EST - 09/04/2017 4:03 PM EST Surgery [place] [address] Yanet Trujillo MD [facility] [place] [address] PARATHYROIDECTOMY OR EXPLORATION OF PARATHYROID(S) (WRVU 15.6) [...] this encounter Discharge Summaries * Tracy Felipe, BRAND MGR - 09/05/2017 8:27 AM EST General Surgery [...] Appointments: Future Appointments Date Time Provider Department [place] 10/19/2017 10:30 AM LAKESHA, DEVIN L Lab 3L HARDEEP MCGOVERN 10/19/2017 11:30 AM Yanet Trujillo MD Le[facility] [place] [facility] Outpatient Services/Studies: Calcium Standing Status: Future [...] Take NSAIDS or Tylenol every 6 hours fswoak-jvs-uhkrg for the first 3-5 days following surgery [...] or grocery store, as it is available snic-cin-hwqachv and does not require a prescription. The [...] please call the General Surgery nurse at [phone], since this may mean that you need [...] will be mailed to you Please call [phone] to confirm the date and time of your appointment if you do not hear from us in the next 2 weeks Call Doctor for: Call if you have trouble talking or breathing (call [phone] if this is severe) Call if you [...] with the Surgery nurses. The number is [phone]. - During the night or weekends call the [facility] tilting saw operator at [phone] and ask to speak to the surgery resident offshore wind operations manager for general surgery. Please note: Your surgeon may not be Pyrotechnician, especially during the night or on weekends, [...] hear anything, please call the clinic at [phone] to confirm or reschedule. If you need a prior authorization, please call the General Surgery Clinic nurses [phone] for prior authorizations assistance General Instructions None [...] Yoni Ramírez MD Signed: Tracy Felipe APRN [facility] Surgical Oncology Service Team Pager #[phone] [...] Take NSAIDS or Tylenol every 6 hours bdcjpz-wfy-wnmhm for the first 3-5 days following surgery [...] or grocery store, as it is available lrwe-cku-xzosdeu and does not require a prescription. The [...] please call the General Surgery nurse at [phone], since this may mean that you need [...] will be mailed to you Please call [phone] to confirm the date and time of your appointment if you do not hear from us in the next 2 weeks Call Doctor for: Call if you have trouble talking or breathing (call [phone] if this is severe) Call if you [...] with the Surgery nurses. The number is [phone]. - During the night or weekends call the [facility] tilting saw operator at [phone] and ask to speak to the surgery resident offshore wind operations manager for general surgery. Please note: Your surgeon may not be Pyrotechnician, especially during the night or on weekends, so be ready to describe yourself and your surgery when you call. Follow up appointments: Future Appointments Date Time Provider Department [place] 10/19/2017 10:30 AM DEVIN JO L Lakesha HARDEEP DELONGPR 10/19/2017 11:30 AM Yanet Trujillo MD [facility] [x] Follow-up appointment with General Surgery has already been scheduled [] A request for a follow-up appointment has been made and you should receive information via phone/mail in the next week. If you do not hear anything, please call the clinic at [phone] to confirm or reschedule. If you need a prior authorization, please call the General Surgery Clinic nurses [phone] for prior authorizations assistance documented in this [...] well. Pain is now well controlled with AUTOMOBILE DAMAGE FIELD APPRAISER started by anesthesia in PACU for uncontrolled [...] Progressing well postoperatively.Pain is well controlled with AUTOMOBILE DAMAGE FIELD APPRAISER and pt is currently stable. - Straight [...] potential plans and decided on a morphine AUTOMOBILE DAMAGE FIELD APPRAISER. 2114 AUTOMOBILE DAMAGE FIELD APPRAISER education provided for pt. documented in this encounter H&P Notes * Martinez Werner MD - 09/04/2017 11:58 AM EST [facility] Department of General Surgery Pre Procedure [...] ERCP performed by Duane Garcia MD at [facility] END[facility]COPY ??? 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 Ambulated in halls, tolerated activity well. Incision [...] Trujillo MD - 09/04/2017 4:23 PM EST [facility] Operative Note Patient Name: Jeff Arreguin : [id number] MR#: [id number] Case Date: 09/04/2017 Surgeon: Surgeon(s) and Role: [...] anesthesia was completed by anesthesiology with the SD [employer] recurrent laryngeal nerve monitoring system. A crease [...] Operative Note Patient Name: Jeff Arreguin : [id number] MR#: [id number] Case Date: 09/04/2017 Surgeon: Surgeon(s) and Role: [...] EST) Calcium 9.3 8.5 - 10.5 mg/dL [facility] Blood specimen (specimen) 09/05/2017 5:20 AM EST 09/05/2017 5:20 AM EST Narrative Resulting Agency Comment Spec In Lab Yanet Trujillo MD CHEMISTRY ORDERAB LES Performing Organization Address City/[facility]/[place] [address] * Specimen to Pathology (09/04/2017 6:36 PM EST) AP Specimen 09/04/2017 6:36 PM EST 09/04/2017 6:44 PM EST Narrative [facility] - 09/04/2017 6:44 PM EST Specimen requisition ordered. ??Separate Pathology report to follow Resulting Agency Comment Spec In Lab Yanet Trujillo MD PATHOLOGY/CYTOLOG Y ORDERABLES Performing Organization Address City/[facility]/[place] [address] * Specimen to Pathology (09/04/2017 6:09 PM EST) AP Specimen 09/04/2017 6:09 PM EST 09/04/2017 6:09 PM EST Narrative [facility] - 09/04/2017 6:09 PM EST Specimen requisition ordered. ??Separate Pathology report to follow Yanet Trujillo MD PATHOLOGY/CYTOLOG Y ORDERABLES Performing Organization Address City/[facility]/[place] [address] * Intraoperative PTH (Leb/CGP) (09/04/2017 6:03 PM EST) PTH, Intraoperative 32 9 - 77 pg/mL [facility] Comment: Called by: ERLIN, Read back by: Jennifer Salmeron, Date/Time:09/04/17 18:34. A 50 % decrease in venous iPTH levels at 10 min post adenoma excision is expected if all the hypersecreting parathyroid tissue has been removed (Tashi HAIRSTON et al. Surgery 1993:114; 2054-1328) Blood specimen (specimen) 09/04/2017 6:03 PM EST 09/04/2017 6:08 PM EST Narrative Resulting Agency Comment Spec In Lab Yanet Trujillo MD CHEMISTRY ORDERAB LES Performing Organization Address [facility]/ZIP Co de Phone Number [facility] [place] [address] * Specimen to Pathology (09/04/2017 5:52 PM EST) AP Specimen 09/04/2017 5:52 PM EST 09/04/2017 5:52 PM EST Narrative [facility] - 09/04/2017 5:52 PM EST Specimen requisition ordered. ??Separate Pathology report to follow Yanet Trujillo MD PATHOLOGY/CYTOLOG Y ORDERABLES Performing Organization Address [facility] Co de Phone Number [facility] [place] [address] * (ABNORMAL) Intraoperative PTH (Leb/CGP) (09/04/2017 4:49 PM EST) PTH, Intraoperative 103(H) 9 - 77 pg/mL [facility] Comment: Called by: ERLIN, Read back by: Jennifer Salmeron, Date/Time:09/04/17 17:18. A 50 % decrease in venous iPTH levels at 10 min post adenoma excision is expected if all the hypersecreting parathyroid tissue has been removed (Tashi HAIRSTON et al. Surgery 1993:114; 9507-1127) Blood specimen (specimen) 09/04/2017 4:49 PM EST 09/04/2017 4:52 PM EST Narrative Resulting Agency Comment Spec In Lab Yanet Trujillo MD CHEMISTRY ORDERAB LES Performing Organization Address City/[facility]/ZIP Co de Phone Number [facility] [place] [address] * (ABNORMAL) Intraoperative PTH (Leb/CGP) (09/04/2017 4:08 PM EST) PTH, Intraoperative 174(H) 9 - 77 pg/mL [facility] Comment: Called by: ERLIN, Read back by: Thao Nicole, Date/Time:09/04/17 16:40. A 50 % decrease in venous iPTH levels at 10 min post adenoma excision is expected if all the hypersecreting parathyroid tissue has been removed (Tashi GL et al. Surgery 1993:114; 8177-1958) Blood specimen (specimen) 09/04/2017 4:08 PM EST 09/04/2017 4:12 PM EST Narrative Resulting Agency Comment Spec In Lab Yanet Trujillo MD CHEMISTRY ORDERAB LES Performing Organization Address [facility]/ZIP Co de Phone Number [facility] [place] [address] * (ABNORMAL) Intraoperative PTH (Leb/CGP) (09/04/2017 4:02 PM EST) PTH, Intraoperative 215(H) 9 - 77 pg/mL [facility] Comment: A 50 % decrease in venous iPTH levels at 10 min post adenoma excision is expected if all the hypersecreting parathyroid tissue has been removed (Tashi GL et al. Surgery 1993:114; 2405-5078) Blood specimen (specimen) 09/04/2017 4:02 PM EST 09/04/2017 4:06 PM EST Narrative Resulting Agency Comment Spec In Lab Yanet Trujillo MD CHEMISTRY ORDERAB LES [facility] [place] [address] * Surgical Pathology Report (09/04/2017 3:54 PM EST) Final Diagnosis [id number] ? Location: [facility]; 14; A The signing pathologist has (i) examined [...] Nae Curiel Verified: ??09/06/2017 ?Pathologist Performed at: ??-[facility] Dept. of Pathology, [place], [place] DISCUSSION The intraoperathive PTH decreased from [...] x 0.6 x 0.3 cm. Tissue Description: [place] ovoid tissue. Sections/Processin g: (1) remainder of [...] serially sectioned and entirely submitted; (2-3) additional field sales representative sections of thymus. (R3) D [...] MD Verified: ??09/04/2017 ?Dermatopathologi st Performed at: ??-[facility] Dept. of Pathology, [place], [place] This intraoperative consultation should be interpreted as a preliminary diagnosis pending review of the entire specimen and special studies, if any. ?Frozen Section FROZEN SECTION DIAGNOSIS AFS - Right upper parathyroid gland for frozen section: Parathyroid tissue. 09/04/17 16:12 Electronically signed by: ??Nae Gale MD Verified: ??09/04/2017 ?Pathologist Performed at: ??-[facility] Dept. of Pathology, [place], [place] This intraoperative consultation should be interpreted as a preliminary diagnosis pending review of the entire specimen and special studies, if any. 09/06/2017 4:33 PM EST [facility] LYMPH NODE SPECIMEN / Unknown 09/04/2017 3:54 PM EST 09/04/2017 3:54 PM EST Frozen Specimen 09/04/2017 3 :54 PM EST 09/04/2017 3:54 PM EST THYMUS GLAND STRUCTURE / Unknown 09/04/2017 3:54 PM EST 09/04/2017 3:54 PM EST LYMPH NODE SPECIMEN / Unknown 09/04/2017 3:54 PM EST 09/04/2017 3:54 PM EST Yanet Trujillo MD PATHOLOGY/CYTOLOG Y ORDERABLES Performing Organization Address City/[facility]/ZIP Co de Phone Number [facility] [place] [address] * Specimen to Pathology (09/04/2017 3:53 PM EST) AP Specimen 09/04/2017 3:53 PM EST 09/04/2017 3:53 PM EST Narrative [facility] - 09/04/2017 3:53 PM EST Specimen requisition ordered. ??Separate Pathology report to follow Yanet Trujillo MD PATHOLOGY/CYTOLOG Y ORDERABLES Performing Organization Address City/[facility]/ZIP Co de Phone Number [facility] [place] [address] * (ABNORMAL) Intraoperative PTH (Leb/CGP) (09/04/2017 3:35 PM EST) PTH, Intraoperative 855(H) 9 - 77 pg/mL [facility] Comment: Called by: ERLIN, Read back by: Thao Nicole, Date/Time:09/04/17 16:05. A 50 % decrease in venous iPTH levels at 10 min post adenoma excision is expected if all the hypersecreting parathyroid tissue has been removed (Tashi GL et al. Surgery 1993:114; 1022-7605) Blood specimen (specimen) 09/04/2017 3:35 PM EST 09/04/2017 3:38 PM EST Narrative Resulting Agency Comment Spec In Lab Yanet Trujillo MD CHEMISTRY ORDERAB LES [facility] [place] [address] * SCAN DOC: ECG (09/04/2017 12:00 AM [...] AM EST 100 mg morphine 1 mg/mL AUTOMOBILE DAMAGE FIELD APPRAISER 50 mL Intravenous, AUTOMOBILE DAMAGE FIELD APPRAISER ONLY, Starting on Sun09/04/17 at 2100, Until Sun09/05/17 at 0758 New Syringe/Cartridge 09/04/2017 9:00 PM EST naloxone (NARCAN) injection 0.2 mg 0.2 mg, Intravenous, EVERY 1 MIN PRN, Starting on Sun09/04/17 at 2041, Until Sun09/05/17 at 1300, Opioid Reversal, May repeat every 60 seconds to increase respiratory rate. DO NOT exceed 2 mg total dose. Per AUTOMOBILE DAMAGE FIELD APPRAISER order., Routine ondansetron (ZOFRAN) injection 4 mg [...] Provider: Crystal Rivas RN) morphine 1 mg/mL AUTOMOBILE DAMAGE FIELD APPRAISER 50 mL (CANCELED) Intravenous, AUTOMOBILE DAMAGE FIELD APPRAISER ONLY, Starting on Sun09/04/17 at 2100, Until [...] NOT exceed 2 mg total dose. Per AUTOMOBILE DAMAGE FIELD APPRAISER order., Routine ondansetron (ZOFRAN) injection 4 mg [...] Routine documented in this encounter Care Teams Dispute Resolution Specialist Relationship Specialty Start Date End Date Yoni Ramírez MD [address] [place] [address] PCP - General 07/05/10 documented as of this encounter
--- OUTSIDE RECORDS SUMMARY | 2024-09-23 11:35 | XMS_ITS | Encounter Summary ---
Author Organization [facility] [place] [address] Care Team Providers Care Organ Pipe Maker Metal Name Role Phone Yoni Ramírez MD Primary Care Provider Encounter Details Date Type Department Care Team (Latest Contact Info) Description 01/25/2017 - 01/25/2017 11:59 PM EDT Hospital Encounter Radiology Library at [facility] [address] [id number] Karishma Maurer MD [facility] [place] [address] Pain Discharge Disposition: Home Social History Tobacco [...] Ultrasound Study (01/25/2017 12:00 AM EDT) Narrative [facility] - 02/23/2017 10:01 AM EDT This exam is for storage only and is auto-finalizing. Karishma Maurer MD IMG FILM LIBRARY ORDERABLES Performing Organization Address City/State/[facility] de Phone Number [place], [place] documented in this encounter Visit Diagnoses Diagnosis Pain Generalized pain documented in this encounter Care Teams Organ Pipe Maker Metal Relationship Specialty Start Date End Date Yoni Ramírez MD [address] [place] [address] PCP - General 07/05/10 documented as of this encounter
--- OUTSIDE RECORDS SUMMARY | 2024-09-23 11:35 | XMS_ITS | Encounter Summary ---
Author Organization [facility] [place] [address] Care Team Providers Care Sales Representatives Name Role Phone Yoni Ramírez MD Primary Care Provider Encounter Details Date Type Department Care Team (Late st Contact Info) Description 07/02/2021 Ancillary Procedure Radiology Library at [facility] [place] [address] [id number] Yoni Ramírez MD [address] [address] Social History Tobacco Use Types Packs/Day Years [...] & Pelvis (07/02/2021 12:00 AM EST) Narrative [facility] - 09/22/2021 9:10 AM EST This exam is auto-finalizing. It's purpose is for storage only. Yoni Ramírez MD G FILM LIBRARY ORD ERABLES [facility] [place], [place] documented in this encounter Visit Diagnoses Not on filedocumented in this encounter Care Teams Sales Representatives Relationship Specialty Start Date End Date Yoni Ramírez MD [address] [place] [address] PCP - General 07/05/10 documented as of this encounter
--- OUTSIDE RECORDS SUMMARY | 2024-09-23 11:35 | XMS_ITS | Encounter Summary ---
Author Organization [facility] [place] [place] [address] Care Team Providers Care Board Filler Name Role Phone Yoni Ramírez MD Primary Care Provider [phone] Encounter Details Date Type Department Care Team (Late st Contact Info) Description 05/29/2017 Orders [place] [address] Karishma Maurer MD [facility] [place] [address] Hypertension, unspecified type (Primary Dx) Social History [...] EDT) Creatinine 0.99 0.80 - 1.50 mg/dL [facility] Est Glomerular Filtration Rate >60 >=60 [facility] Comment: The reported eGFR should be multiplied by 1.2 for patients. The MDRD is not an appropriate measure of renal function for patients with body mass extremes or in patients with acute kidney failure. http://Platogo/DHnkdep http://Platogo/DHMCnkf Blood specimen (specimen) 05/30/2017 12:33 PM EDT 05/30/2017 12:41 PM EDT Narrative Resulting Agency Comment Spec In Lab Karishma Maurer MD CHEMISTRY ORDERAB LES [facility] [place] [address] documented in this encounter Visit Diagnoses Diagnosis Hypertension, unspecified type- Primary documented in this encounter Care Teams Board Filler Relationship Specialty Start Date End Date Yoni Ramírez MD [address] [place] [address] PCP - General 07/05/10 documented as of this encounter
--- OUTSIDE RECORDS SUMMARY | 2024-09-23 11:35 | XMS_ITS | Encounter Summary ---
Author Organization [facility] [place] [address] Care Team Providers Care Plate Mounter Name Role Phone Yoni Ramírez MD Primary Care Provider Encounter Details Date Type Department Care Team (Late st Contact Info) Description 05/29/2017 Orders [place] [address] Karishma Trujillo MD [facility] [place] [address] Lung nodule seen on imaging study Social [...] seen on imaging study Solitary pulmonary nodule documented in this encounter Care Teams Plate Mounter Relationship Specialty Start Date End Date Yoni Ramírez MD [address] [address] PCP - General 07/05/10 documented as of this encounter
--- OUTSIDE RECORDS SUMMARY | 2024-09-23 11:35 | XMS_ITS | Encounter Summary ---
Author Organization [facility] Address [facility] [place] [address] Care Team Providers Care Assembly Machine Tender Name Role Phone Yoni Ramírez MD Primary Care Provider Reason for Visit * Reason Comments Establish Care * Consultation (Routine) - Closed Specialty Diagnoses / Procedures Referred By Contsahil t Referred To Contact General Surgery Diagnoses Primary hyperparathyroidism Mar Lozada MD [facility] [place] [address] Karishma Maurer MD [facility] [place] [address] Referral ID Status Reason Start Date Expiration Date V isits Requested Visits Authorized [id number] Closed Consult, Test & Treat 02/21/2017 02/21/2018 1 1 Encounter Details Date Type Department Care Team (Latest Contact Info) Description 05/21/2017 1:00 PM EDT Office [place] [address] Karishma Maurer MD [facility] [place] [address] Elevated calcitonin level; Enlarged lymph nodes; Medullary [...] scan: not done Cervical ultrasound done at [facility] on January 25, 2017. This reports [...] ERCP performed by Duane Garcia MD at [facility] ??? TONSILLECTOMY Current Outpatient Prescriptions [...] from work. 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 He smoked 2 packs a [...] Stimulating Hormone 1.08 0.27 - 4.20 mlU/ML [facility] Blood specimen (specimen) 05/21/2017 2:12 PM EDT 05/21/2017 2:39 PM EDT Narrative Resulting Agency Comment Spec In Lab Karishma Maurer MD CHEMISTRY ORDERAB LES [facility] [place] [address] * (ABNORMAL) Calcitonin (05/21/2017 2:12 PM EDT) Calcitonin Lvl (QST) 36(H) <=10 pg/mL [facility] Comment: This test was performed using the Siemens (DPC) Chemiluminescent method. Values obtained with different assay methods cannot be used interchangeably. Calcitonin levels, regardless of value, should not be interpreted as absolute evidence of the presence or absence of the disease. Test Performed by [employer], [employer] [facility], [address] [place] [address] Jason Fox M.D., Ph.D., Director of Laboratories , [place] [id number] Blood specimen (specimen) 05/21/2017 2:12 PM EDT 05/22/2017 8:53 AM EDT Narrative Resulting Agency Comment Spec In Lab Karishma Maurer MD LAB SEND OUT KYLIE RUFFLEOBARDO Performing Organization Address [facility] Co de Phone Number [facility] [place] [address] * (ABNORMAL) CEA (05/21/2017 2:12 PM EDT) Carcinoembryonic Antigen 7.1(H) <=3.8 ng/mL [facility] Comment: Reference range: ??(20-69 years): Non-smoker: ??less than or equal to 3.8 ng/mL Smoker: ??less than 5.5 ng/ml Blood specimen (specimen) 05/21/2017 2:12 PM EDT 05/21/2017 2:38 PM EDT Narrative Resulting Agency Comment Spec In Lab Karishma Maurer MD CHEMISTRY ORDERAB LES Performing Organization Address [facility]/ZIP Co de Phone Number [facility] [place] [address] documented in this encounter Visit Diagnoses Diagnosis Elevated calcitonin level Enlarged lymph nodes Enlargement of lymph nodes Medullary thyroid carcinoma Malignant neoplasm of thyroid gland Thyroid nodule Nontoxic uninodular goiter Elevated carcinoembryonic antigen Elevated carcinoembryonic antigen [CEA] Hyperparathyroidism, primary Primary hyperparathyroidism documented in this encounter Care Teams Assembly Machine Tender Relationship Specialty Start Date End Date Yoni Ramírez MD NPI: [id number] [place] [address] PCP - General 07/05/10 documented as of this encounter
--- OUTSIDE RECORDS SUMMARY | 2024-09-23 11:35 | XMS_ITS | Encounter Summary ---
Author Organization [facility] [place] [address] Care Team Providers Care Studio Director Name Role Phone Yoni Ramírez MD Primary Care Provider [phone] Encounter Details Date Type Department Care Team (Late st Contact Info) Description 09/07/2017 Telephone [place] [address] Karishma Maurer MD [facility] [place] [address] Social History Tobacco Use Types Packs/Day Years [...] on filedocumented in this encounter Care Teams Studio Director Relationship Specialty Start Date End Date Yoni Ramírez MD [address] [place] [address] PCP - General 07/05/10 documented as of this encounter
--- OUTSIDE RECORDS SUMMARY | 2024-09-23 11:35 | XMS_ITS | Encounter Summary ---
Author Organization [facility] [place] [address] Care Team Providers Care Reception Agent Name Role Phone Yoni Ramírez MD Primary Care Provider [phone] Encounter Details Date Type Department Care Team (Late st Contact Info) Description 10/15/2017 Orders [place] [address] Karishma Maurer MD [facility] [place] [address] S/P parathyroidectomy Social History Tobacco Use Types [...] Diagnoses Diagnosis S/P parathyroidectomy Other postprocedural status documented in this encounter Care Teams Reception Agent Relationship Specialty Start Date End Date Yoni Ramírez MD [address] [place] [phone] PCP - General 07/05/10 documented as of this encounter
--- OUTSIDE RECORDS SUMMARY | 2024-09-23 11:35 | XMS_ITS | Encounter Summary ---
Author Organization [facility] [place] [address] Care Team Providers Care Lace Winder Name Role Phone Yoni Ramírez MD Primary Care Provider Encounter Details Date Type Department Care Team (Late st Contact Info) Description 2017 Telephone [place] [address] Karishma Maurer MD [facility] [place] [address] Social History Tobacco Use Types Packs/Day Years [...] on filedocumented in this encounter Care Teams Lace Winder Relationship Specialty Start Date End Date Yoni Ramírez MD [address] [place] [id number] PCP - General 07/05/10 documented as of this encounter
--- OUTSIDE RECORDS SUMMARY | 2024-09-23 11:35 | XMS_ITS | Encounter Summary ---
Author Organization [facility] [place] [address] Care Team Providers Care Sorter Upholstery Parts Name Role Phone Yoni Ramírez MD Primary Care Provider Encounter Details Date Type Department Care Team (Late st Contact Info) Description 10/08/2020 Ancillary Procedure Radiology Library at [facility], [place] [place] [phone] Yoni Ramírez MD [address] [address] Social History Tobacco Use Types Packs/Day Years [...] & Pelvis (10/08/2020 12:00 AM EST) Narrative [facility] - 09/22/2021 9:12 AM EST This exam is auto-finalizing. It's purpose is for storage only. Yoni Ramírez MD G FILM LIBRARY ORD ERABLES [facility] [place], [place] documented in this encounter Visit Diagnoses Not on filedocumented in this encounter Care Teams Sorter Upholstery Parts Relationship Specialty Start Date End Date Yoni Ramírez MD [address] [place] [phone] PCP - General 07/05/10 documented as of this encounter
--- OUTSIDE RECORDS SUMMARY | 2024-09-23 11:35 | XMS_ITS | Encounter Summary ---
Author Organization [facility] [place] [address] Care Team Providers Care Assistant Business Manager Name Role Phone Yoni Ramírez MD Primary Care Provider [phone] Encounter Details Date Type Department Care Team (Latest Contact Info) Description 06/04/2017 - 06/04/2017 12:14 AM EDT Hospital Encounter Radiology Library at [facility] [place] [address] [place] [address] Karishma Maurer MD [facility] [place] [address] Discharge Disposition: Home Social History Tobacco Use [...] CT Spine (06/04/2017 12:00 AM EDT) Narrative [facility] - 06/04/2017 8:38 PM EDT This exam is for storage only and is auto-finalizing. Karishma Maurer MD IMG FILM LIBRARY ORDERABLES [place], [place] documented in this encounter Visit Diagnoses Not on filedocumented in this encounter Care Teams Assistant Business Manager Relationship Specialty Start Date End Date Yoni Ramírez MD [address] [place] [phone] PCP - General 07/05/10 documented as of this encounter
--- OUTSIDE RECORDS SUMMARY | 2024-09-23 11:35 | XMS_ITS | Encounter Summary ---
Author Organization [facility] [place] [place] [address] Care Team Providers Care Hose Seamer Name Role Phone Yoni Ramírez MD Primary Care Provider Encounter Details Date Type Department Care Team (Late st Contact Info) Description 10/06/2020 Ancillary Procedure Radiology Library at [facility] [address] [place] [phone] Yoni Ramírez MD [address] [address] Social History Tobacco Use Types Packs/Day Years [...] & Pelvis (10/06/2020 12:00 AM EST) Narrative [facility] - 09/22/2021 9:08 AM EST This exam is auto-finalizing. It's purpose is for storage only. Yoni Ramírez MD G FILM LIBRARY ORD ERABLES DH RAD [place], [place] documented in this encounter Visit Diagnoses Not on filedocumented in this encounter Care Teams Hose Seamer Relationship Specialty Start Date End Date Yoni Ramírez MD [address] [place] [phone] PCP - General 07/05/10 documented as of this encounter
--- OUTSIDE RECORDS SUMMARY | 2024-09-23 11:35 | XMS_ITS | Encounter Summary ---
[place] [address] Care Team Providers Care Bundle Tier Name Role Phone Yoni Ramírez MD Primary Care Provider [phone] Reason for Visit * Reason Comments Other Encounter Details Date Type Department Care Team (Late st Contact Info) Description 09/12/2017 Telephone [place] [phone] Heather Martinez RN Other Social History Tobacco [...] on filedocumented in this encounter Care Teams Bundle Tier Relationship Specialty Start Date End Date Yoni Ramírez MD [address] [place] [phone] PCP - General 07/05/10 documented as of this encounter
--- OUTSIDE RECORDS SUMMARY | 2024-09-23 11:36 | XMS_ITS | Encounter Summary ---
Author Organization [facility] Address [address] [place] [address] Care Team Providers Care Pattern Marking Supervisor Name Role Phone Unknown, Provider Primary Care Provider Unava ilable Encounter Details Date Type Department Care Team (Latest Contact Info) Description 04/16/2015 10:29 EDT - 04/16/2015 23:59 EDT Hospital Encounter [address] [address] Unknown, ProviderMD Discharge Disposition: Home or Self [...] Code Departure Means Destination Home or Self Group Home documented in this encounter Plan of Treatment Not on file documented as of this encounter Visit Diagnoses Not on filedocumented in this encounter Care Teams Pattern Marking Supervisor Relationship Specialty Start Date End Date Unknown, ProviderMD PCP - General 02/14/13 documented as of this encounter
--- OUTSIDE RECORDS SUMMARY | 2024-09-23 11:36 | XMS_ITS | Encounter Summary ---
Author [facility] [place] [address] Care Team Providers Care Electrical Technician Instructor Name Role Phone Yoni Ramírez MD Primary Care Provider Encounter Details Date Type Department Care Team (Late st Contact Info) Description 03/28/2013 Orders [place] [phone] Lidia Vyas APRN [facility] [place] [address] Social History Tobacco Use Types Packs/Day Years Used Date Smoking Tobacco: Never Assessed Sex and Gender Information Value Date Recorded Sex Assigned at Not on file Gender Identity Not on file Sexual Orientation Not on file documented as of this encounter Plan of Treatment Pending Results Name Type Priority Associated Diagnoses Date /Time Film Library- Storage only MR Abdomen Imaging Routine 03/28/2013 3:10 PM EDT documented as of this encounter Visit Diagnoses Not on filedocumented in this encounter Care Teams Electrical Technician Instructor Relationship Specialty Start Date End Date Yoni Ramírez MD [address] [place] [id number] PCP - General 07/05/10 documented as of this encounter
--- OUTSIDE RECORDS SUMMARY | 2024-09-23 11:36 | XMS_ITS | Encounter Summary ---
Author Organization [facility] Address [address] [place] [address] Care Team Providers Care Customer Advisor Specialist Name Role Phone Unknown, Provider Primary Care Provider Unava ilable Encounter Details Date Type Department Care Team (Late st Contact Info) Description 03/12/2023 Lab Requisition [facility] Pathology & Laboratory Medicine - [facility] [address] [place], [place] [address] Outr Resulting Lab, Provider Social History Tobacco [...] 19 - 88 pg/mL 03/13/2023 9:12 EDT [facility] Blood VENOUS BLOOD / Unknown 03/11/2023 18:41 EDT 03/12/2023 21:52 EDT us Provider Outr Resulting Lab CHEMISTRY & BLOOD GA S ORDERABLES Final Result [facility] [address] [place] [address] documented in this encounter Visit Diagnoses Not on filedocumented in this encounter Care Teams Customer Advisor Specialist Relationship Specialty Start Date End Date Unknown, Provider, PCP - General 02/14/13 documented as of this encounter
--- OUTSIDE RECORDS SUMMARY | 2024-09-23 11:36 | XMS_ITS | Encounter Summary ---
Author Organization [facility] Address [address] [place] [address] Care Team Providers Care Consumer Affairs Director Name Role Phone Unknown, Provider Primary Care Provider Unava ilable Encounter Details Date Type Department Care Team (Late st Contact Info) Description 04/16/2015 Results Only [facility] [phone] Martin Schwarz MD [address] [place] [phone] Social History Tobacco Use Types Packs/Day [...] DEVORAH JEFF Silke ? Accession #: ? [id number] ? : ? 1965 (Age: 49) ??M [...] Steele 04/20/2015 9:03 AM End of Report [facility] 04/16/2015 8:15 EDT 04/17/2015 8:15 EDT us Martin Schwarz MD PATHOLOGY ORDERABLES Final Resu lt [facility] [address] [place] [address] documented in this encounter Visit Diagnoses Not on filedocumented in this encounter Care Teams Consumer Affairs Director Relationship Specialty Start Date End Date Unknown, Provider, PCP - General 02/14/13 documented as of this encounter
--- OUTSIDE RECORDS SUMMARY | 2024-09-23 11:36 | XMS_ITS | Encounter Summary ---
Author Organization [facility] Address [address] [place] [address] Care Team Providers Care Hospice Case Manager Name Role Phone Unknown, Provider Primary Care Provider Unava ilable Encounter Details Date Type Department Care Team (Late st Contact Info) Description 04/06/2020 Lab Requisition [facility] Pathology & Laboratory Medicine - [facility] [address] [place], [place] [address] Outr Resulting Lab, Provider Social History Tobacco [...] MICROBIOLOGY - GENER AL ORDERABLES Final Result [facility] [address] [place] [address] * COVID-19 TESTING (04/05/2020 21:45 EDT) COVID-19 rt-PCR Result Negative Negative 04/06/2020 21:56 EDT [facility] Comment: This test has not [...] history, and epidemiological information. Performed on the discoapi Fusion instrument Performing Lab [facility] Lab 04/06/2020 21:56 EDT [facility] Swab 04/05/2020 21:4 5 EDT 04/06/2020 16:12 EDT us Provider Outr Resulting Lab MICROBIOLOGY - GENER AL ORDERABLES Final Result [facility] [address] [place] [address] documented in this encounter Visit Diagnoses Not on filedocumented in this encounter Care Teams Hospice Case Manager Relationship Specialty Start Date End Date Unknown, Provider, PCP - General 02/14/13 documented as of this encounter
--- OUTSIDE RECORDS SUMMARY | 2024-09-23 11:36 | XMS_ITS | Encounter Summary ---
Author Organization [facility] Address [address] [place] [address] Care Team Providers Care Radarman Name Role Phone Unknown, Provider MD Primary Care Provider Unava ilable Encounter Details Date Type Department Care Team (Late st Contact Info) Description 01/03/2020 Lab Requisition [facility] Pathology & Laboratory Medicine - [facility] [address] [place], [place] [address] Outr Resulting Lab, Provider Social History Tobacco [...] Salmonella PCR Negative Negative 01/05/2020 11:49 EDT [facility] Shigella/Enteroin vasive E. coli Negative Negative 01/05/2020 11:49 EDT [facility] HN LAB CAMPYLOBACTER PCR Negative Negative 01/05/2020 11:49 EDT [facility] Shiga Toxin PCR Negative Negative 0 11:49 EDT [facility] Feces SPECIMEN FROM RECTUM / Unknown 01/03/2020 10:46 EDT 01/04/2020 20:52 EDT us Provider Outr Resulting Lab MICROBIOLOGY - GENER AL ORDERABLES Final Result Performing Organization Address [facility] Co de Phone Number [facility] [address] [place] [address] * OVA/PARASITE EXAM (01/03/2020 10:46 EDT) Parasite No ova and parasites seen. 01/05/2020 13:25 EDT [facility] Feces SPECIMEN FROM RECTUM / Unknown Stool Collect / Unknown 01/03/2020 10:46 EDT 01/04/2020 20:52 EDT Narrative [facility] - 01/05/2020 13:25 EDT (If Cryptosporidium, Cyclospora, or Microsporidium are suspected, specific tests must be requested.) Single negative specimen does not rule out the possibility of a parasitic infection. us Provider Outr Resulting Lab MICROBIOLOGY - GENER AL ORDERABLES Final Result Performing Organization Address [facility] Co de Phone Number [facility] [address] [place] [address] documented in this encounter Visit Diagnoses Not on filedocumented in this encounter Care Teams Radarman Relationship Specialty Start Date End Date Unknown, Provider, PCP - General 02/14/13 documented as of this encounter
--- OUTSIDE RECORDS SUMMARY | 2024-09-23 11:36 | XMS_ITS | Encounter Summary ---
Author Organization [facility] Address [address] [place] [address] Care Team Providers Care Social Service Technician Name Role Phone Unknown, Provider Primary Care Provider Unava ilable Encounter Details Date Type Department Care Team (Late st Contact Info) Description 07/19/2023 Lab Requisition [facility] Pathology & Laboratory Medicine - [facility] [address] [place], [place] [address] Outr Resulting Lab, Provider Social History Tobacco [...] PSA <0.1 <=4.5 ng/mL 07/19/2023 20:10 EST [facility] Blood VENOUS BLOOD / Unknown 07/18/2023 18:30 EST 07/19/2023 18:26 EST Narrative [facility] - 07/19/2023 20:10 EST NOTE: Serum PSA concentration should not be interpreted as absolute evidence for the presence or absence of malignant disease. Assayed on Siemens ADVIA H2Sonicsaur XPT using chemiluminescent technology.??Values obtained by using different assay methods cannot be used interchangeably. us Provider Outr Resulting Lab CHEMISTRY & BLOOD GA S ORDERABLES Final Result [facility] [address] [place] [address] documented in this encounter Visit Diagnoses Not on filedocumented in this encounter Care Teams Social Service Technician Relationship Specialty Start Date End Date Unknown, Provider, PCP - General 02/14/13 documented as of this encounter
--- OUTSIDE RECORDS SUMMARY | 2024-09-23 11:36 | XMS_ITS | Encounter Summary ---
Author Organization [facility] Address [address] [place] [address] Care Team Providers Care Retail Operations Specialist Name Role Phone Unknown, Provider MD Primary Care Provider Unava ilable Reason for Visit * Reason Onset Date Comments Hostage Negotiator Message 02/07/2022 Encounter Details Date Type Department Care Team (Late st Contact Info) Description 02/07/2022 Telephone [facility] [address] [place], [place] [phone] Patrick Pierce MD [address] [place] [address], [address] [place] [address] Hostage Negotiator Message Social History Tobacco Use Types Packs/Day Years Used Date Smoking Tobacco: Never Assessed Sex and Gender Information Value Date Recorded Sex Assigned at Not on file Legal Sex Male 18:17 EST Gender Identity Not on file Sexual Orientation Not on file documented as of this encounter Miscellaneous Notes * Telephone Encounter - Patrick Pierce MD - 02/07/2022 0690 EDT On-call nephrology note: Recd call from [facility] ER re pt with [place] on CKD. [...] on filedocumented in this encounter Care Teams Retail Operations Specialist Relationship Specialty Start Date End Date Unknown, Provider, PCP - General 02/14/13 documented as of this encounter
--- OUTSIDE RECORDS SUMMARY | 2024-09-23 11:36 | XMS_ITS | Encounter Summary ---
Author Organization [facility] [place] [address] Care Team Providers Care Special Events Director Name Role Phone Yoni Ramírez MD Primary Care Provider [phone] Encounter Details Date Type Department Care Team (Late st Contact Info) Description 08/22/2013 9:30 AM EST - 08/22/2013 10:30 AM EST [place] [address] Duane Garcia MD [facility] [place] [address] ERCP (VU 5.95) Social History Tobacco Use Types Packs/Day Years [...] for nausea has been sent to the [facility] documented in this encounter Medications at Time [...] spent <30 minutes (Day of Discharge Code 67913) involved in the final examination of the [...] patient. ID: 48 y.o. Male presents to 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 Also give him his normal lisinopril/HCTZ ?? [...] epi injection, sphincterotomy, balloon sweep Findings: The industrial property appraiser film was normal with the exception of [...] for nausea has been sent to the [facility] Discharge References/Attachments: Discharge References/Attachments None Inpatient Provider Contact Information: For questions regarding this document or issues relating to this hospitalization on the Medical Service, please contact your inpatient physician through the [facility] Counter Top Assembler . Issues afterhours and on weekends will [...] documented in this encounter Plan of Treatment Pending Results Name Type Priority Associated Diagnoses Date /Time XR ERCP Imaging Routine 08/22/2013 11: 02 AM EST Scheduled Orders Name Type Priority Associated Diagnoses Orde r Schedule XR ERCP Imaging Routine Once PRN (for Radiant use) for 1 Occurrences starting 08/22/2013 until 08/22/2013 documented as of this encounter Procedures Procedure [...] ARREGUIN ?Ordered By: LISA BOURGEOIS ? MR#: [id number] ?LOC: ??1EST ? /Sex: ??1965 (48 years), ? Male ? PROCEDURE: Urine Culture ?SOURCE: U CC ? COLLECTED: 08/23/2013 06:38 ? STARTED: 08/23/2013 07:36 ? FINAL REPORT ? Final Report ? Verified:07/2014 08:04 ? No growth (Less than 1,000 cfu/ml). ? ___ ? ___ [facility] Urine specimen obtained by clean catch procedure (specimen) 08/23/2013 6:38 AM EST 08/23/2013 7:35 AM EST Narrative Resulting Agency Comment Spec In Lab Lisa Bourgeois MD MICROBIOLOGY - GENER AL ORDERABLES Performing Organization Address [facility] de Phone Number [facility] * THC (Marijuana), Urine Confirmation (08/23/2013 6:32 AM EST) U THC Conf See Note [facility] Comment:Please see scanned r eport in Chart Review under the Non-DH Laboratory Heading. Urine specimen (specimen) 08/23/2013 6:32 AM EST 08/25/2013 8:43 AM EST Narrative Resulting Agency Comment Spec In Lab Lisa Bourgeois MD LAB SEND OUT ORDERAB LES Performing Organization Address [facility] de Phone Number EVELYN GRACIA * Drug Screen with Confirmation, Urine (08/23/2013 [...] employment-relate d drug testing. Test Performed by: [place] [address] Bartender Helper: Génesis Dominguez, Ph.D. CERNER MILLENNIUM Urine specimen (specimen) 08/23/2013 6:32 AM EST 08/25/2013 8:43 AM EST Narrative Resulting Agency Comment Spec In Lab Lisa Bourgeois MD URINE ORDERABLES CERNER NGRAINENNIUM * (ABNORMAL) Urinalysis with microscopic (08/23/2013 6:32 [...] Urine Dipstick Clear Clear CERNER MILLENNIUM Specific [place] Urine Automated 1.015 1.002 - 1.030 CERNER [...] Metabolic Panel (non-fasting) (08/23/2013 5:11 AM EST) Glucose 117 60 - 199 mg/dL CERNER MILLENNIUM Comment:Diabetes: >=200 mg/d L plus symptoms Blood Urea Nitrogen 11 10 - 20 mg/dL CERNER MILLENNIUM Creatinine 0.90 0.80 - 1.50 mg/dL CERNER MILLENNIUM Comment: Please note that the pediatric reference intervals supplied above were not validated at [facility]. Results from pediatric [...] Bourgeois MD CHEMISTRY ORDERABLES Performing Organization Address City/State/[facility] Co de Phone Number CERNER MILLENNIUM * (ABNORMAL) CBC (with Diff) (08/23/2013 5:11 [...] MD HEMATOLOGY ORDERABLE S Performing Organization Address City/State/[facility] Co de Phone Number [facility] NIVIAIUM * (ABNORMAL) Hepatic Function Panel (08/23/2013 5:11 AM EST) Protein, Total 5.7(L) 6.4 - 8.3 gm/dL CERNER MILLENNIUM Albumin 3.9 3.2 - 5.2 gm/dL CERNER MILLENNIUM Aspartate Aminotransferase 26 0 - 39 unit/L CERNER MILLENNIUM Alanine Aminotransferase 38 0 - 55 unit/L CERNER MILLENNIUM Alkaline Phosphatase 77 40 - 120 unit/L CERNER MILLENNIUM Bilirubin, Total 1.4(H) 0.2 - 1.3 mg/dL CERNER MILLENNIUM Comment:result rechecked-h Bilirubin, Direct 0.3 0.0 - 0.3 mg/dL CERNER MILLENNIUM Blood specimen (specimen) 08/23/2013 5:11 AM EST 08/23/2013 5:39 AM EST Narrative Resulting Agency Comment Spec In Lab Lisa Bourgeois MD CHEMISTRY ORDERABLES Performing Organization Address [facility] Co de Phone Number EVELYN GRACIA * Prothrombin Time (08/23/2013 5:11 AM EST) Prothrombin Time 14.7 12.0 - 15.0 sec CERNER MILLENNIUM Comment: [facility] Transfusion Committee Guidelines: INR less than [...] MD HEMATOLOGY ORDERABLE S Performing Organization Address [facility] Co de Phone Number [facility] CELESTINAABRAZO [facility] * (ABNORMAL) Magnesium (08/23/2013 5:11 AM EST) Magnesium 0.65(L) 0.69 - 1.07 mmol/L CERNER MILLENNIUM Blood specimen (specimen) 08/23/2013 5:11 AM EST 08/23/2013 5:39 AM EST Narrative Resulting Agency Comment Spec In Lab Lisa Bourgeois MD CHEMISTRY ORDERABLES Performing Organization Address [facility] Co de Phone Number CERNER MILLENNIUM * Phosphorus (08/23/2013 5:11 AM EST) Phosphorus 3.3 2.5 - 4.5 mg/dL CERNER MILLENNIUM Blood specimen (specimen) 08/23/2013 5:11 AM EST 08/23/2013 5:39 AM EST Narrative Resulting Agency Comment Spec In Lab Lisa Bourgeois MD CHEMISTRY ORDERABLES Performing Organization Address [facility] Co de Phone Number CERNER MILLENNIUM * (ABNORMAL) Differential, Automated (08/22/2013 1:35 PM [...] Absolute 0.03 0.00 - 0.05 x10(3)/mc L [facility] Blood specimen (specimen) 08/22/2013 1:35 PM EST 08/22/2013 1:58 PM EST Duane Garcia MD HEMATOLOGY ORDERABL ES Performing Organization Address [facility] Co de Phone Number [facility] * Lipase (08/22/2013 1:35 PM EST) Pathologist [facility] Lipase 53 0 - 60 unit/L [facility] Blood specimen (specimen) 08/22/2013 1:35 PM EST 08/22/2013 1:58 PM EST Narrative Resulting Agency Comment Spec In Lab Duane Garcia MD CHEMISTRY ORDERABLE S Performing Organization Address [facility] de Phone Number [facility] * Amylase (08/22/2013 1:35 PM EST) [facility] Amylase 41 28 - 100 unit/L [facility] Blood specimen (specimen) 08/22/2013 1:35 PM EST 08/22/2013 1:58 PM EST Narrative Resulting Agency Comment Spec In Lab Duane Garcia MD CHEMISTRY ORDERABLE S Performing Organization Address [facility] de Phone Number [facility] * (ABNORMAL) CMP w/fasting Glucose (08/22/2013 1:35 PM EST) Glucose Fasting 129(H) 65 - 99 mg/dL [facility] Comment: ?Fasting* Glucose Interpretive Criteria Normal ?65-99 [...] of Diabetes Mellitus, Position Statement from the [place] [employer]. ??Diabetes Care, Volume 33, Supplement 1, Aug 2009 Blood Urea Nitrogen 9(L) 10 - 20 mg/dL CERNER MILLENNIUM Creatinine 0.85 0.80 - 1.50 mg/dL CERNER MILLENNIUM Comment: Please note that the pediatric reference intervals supplied above were not validated at [facility]. Results from pediatric [...] Duane Garcia MD CHEMISTRY ORDERABLE S CERNER MILLENNIUM * (ABNORMAL) CBC (with Diff) (08/22/2013 [...] * ERCP (08/22/2013 9:27 AM EST) ERCP [facility] Endoscopy Patient Name: Jeff Kallie ? Procedure Date: 08/22/2013 9:27 AM ? N: [id number] ? Date of : 1965 ? Age: 48 ? Order #: [id number] ? Procedure: ? ERCP Indications: ? Evaluation and possible treatment of ? bile duct stone(s) Providers: ? Duane Garcia MD, Dk Crow. ? Samule, TODD, Mary Cano, Staff Genetic Counselor Referring MD: ?Yoni Ramírez MD Medicines: ? [...] the procedure well. ? Findings: ? The industrial property appraiser film was normal with the exception of [...] liver function tests Other abnormal blood chemistry documented in this encounter Administered Medications Inactive Administered Medications - up to 3 most recent administrations Medication Order MAR Action Action Date Dose Rate Site clonAZEpam (KLONOPIN) tablet 1 mg 1 mg, Oral, NIGHTLY, First dose on Sun08/22/13 at 2100, Until Discontinued, Routine Given 08/22/2013 8:51 PM EST 1 mg [id number] indomethacin/placebo suppository 100 mg 100 mg, Rectal, [...] 2050 (Given - Provider: Vania Borja RN) [id number] indomethacin/placebo suppository 100 mg (COMPLETED) 100 mg, Rectal, ONCE, 1 dose, On Sun08/22/13 at 1015, Endoscopy (Intra-Procedure), Routine 954 (Given - Provider: Dk Baker RN) esomeprazole (NEXIUM) injection 40 mg (CANCELED) 40 mg, Intravenous, DAILY, First dose on Sun08/22/13 at 2030, Until Discontinued 2143 (Given - Provider: Vania Borja RN - Comment: Med just arrived from pharmacy) 802 (Given - Provider: Katrin Vo RN) hydrochlorothiazide [...] 1 dose, On Sun08/22/13 at 1845, Routine 1845 (Given - Provider: Mili Naylor RN) sodium chloride 0.9 % flush 5 mL (CANCELED) 5 mL, Intravenous, EVERY 12 HOURS, First dose on Sun08/22/13 at 1900, Until Discontinued, Day of Surgery (Day of Procedure), Routine 2047 (Given - Provider: Vania Borja, TODD) 0754 (Given - Provider: Katrin Vo RN [...] Kim RN)1240 (New Bag - Provider: Zach Kim, TODD)1510 (New Bag - Provider: Zach Kim, TODD) 0805 (New Bag - Provider: aKtrin Vo RN)1402 (Paused - Provider: Joe Bosch RN) PRN Medication Order 08/21/2013 08/22/2013 08/23/2013 fentaNYL 50mcg/mL injection (CANCELED) 25-50 mcg, Intravenous, EVERY 5 MIN PRN, Starting on Sun08/22/13 at 1145, Until 08/22/13 at 1801, Pain, for breakthrough pain, Hold [...] >180, Routine 2111 (Given - Provider: Vania Borja RN) HYDROmorphone (DILAUDID) injection 0.2-0.4 mg (CANCELED) 0.2-0.4 [...] Vomiting, Routine 1510 (Given - Provider: Zach Kim RN)1710 (Given - Provider: Zach Kim RN) promethazine (PHENERGAN) injection 6.25 mg (CANCELED) 6.25 mg, Intravenous, EVERY 6 HOURS PRN, Nausea, Starting on Sun08/22/13 at 1546, Until 08/23/13 at 1645, Avoid extravasation 2146 (Given - Provider: Vania J W Dessert, RN) documented in this encounter Care Teams Special Events Director Relationship Specialty Start Date End Date Yoni Ramírez MD [address] [place] [id number] PCP - General 07/05/10 documented as of this encounter
--- OUTSIDE RECORDS SUMMARY | 2024-09-23 11:36 | XMS_ITS | Encounter Summary ---
[place] [address] Care Team Providers Care Security Sales Consultant Name Role Phone Yoni Ramírez MD Primary Care Provider Encounter Details Date Type Department Care Team (Latest Contact Info) Description 08/22/2013 6:36 PM EST - 08/23/2013 2:41 PM EST Hospital Encounter [address] [place] [address] Job Núñez MD [facility] [place] [address] Duane Garcia MD [facility] [place] [address] Lisa Bour[place] [address] [place] [address] Discharge Disposition: Home Social History Tobacco Use [...] for nausea has been sent to the [facility] documented in this encounter Medications at Time [...] spent <30 minutes (Day of Discharge Code 26323) involved in the final examination of the [...] patient. ID: 48 y.o. 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 Also give him his normal lisinopril/HCTZ ?? [...] stone disease. No new updates for Tequila Asael's note from early July PE per anesthesia [...] epi injection, sphincterotomy, balloon sweep Findings: The information systems audit manager film was normal with the exception of [...] for nausea has been sent to the [facility] Discharge References/Attachments: Discharge References/Attachments None Inpatient Provider Contact Information: For questions regarding this document or issues relating to this hospitalization on the Medical Service, please contact your inpatient physician through the [facility] Commercial Real Estate Associate . Issues afterhours and on weekends will [...] ARREGUIN ?Ordered By: LISA BOURGEOIS ? MR#: [id number] ?LOC: ??1EST ? /Sex: ??1965 (48 years), ? Male ? PROCEDURE: Urine Culture ?SOURCE: U CC ? COLLECTED: 08/23/2013 06:38 ? STARTED: 08/23/2013 07:36 ? FINAL REPORT ? Final Report ? Verified:07/2014 08:04 ? No growth (Less than 1,000 cfu/ml). ? ___ ? ___ [facility] Urine specimen obtained by clean catch procedure (specimen) 08/23/2013 6:38 AM EST 08/23/2013 7:35 AM EST Narrative Resulting Agency Comment Spec In Lab Lisa Bourgeois MD MICROBIOLOGY - GENER AL ORDERABLES [facility] * THC (Marijuana), Urine Confirmation (08/23/2013 6:32 AM EST) Pathologist [facility] U THC Conf See Note [facility] MILLENNIUM Comment:Please see scanned r eport in Chart Review under the Non- Laboratory Heading. Urine specimen (specimen) 08/23/2013 6:32 AM EST 08/25/2013 8:43 AM EST Narrative Resulting Agency Comment Spec In Lab Lisa Bourgeois MD LAB SEND OUT ORDERAB LES [facility] * Drug Screen with Confirmation, Urine (08/23/2013 [...] employment-relate d drug testing. Test Performed by: [place] [address] Ice Skating Instructor: Génesis Dominguez, Ph.D. EVELYN GRACIA Urine specimen (specimen) 08/23/2013 6:32 AM EST 08/25/2013 8:43 AM EST Narrative Resulting Agency Comment Spec In Lab Lisa Bourgeois MD URINE ORDERABLES EVELYN CELESTINAMARTHA * (ABNORMAL) Urinalysis with microscopic (08/23/2013 6:32 AM EST) Glucose, Urine Dipstick Negative Negative mg/dL EVELYN OSCARENNIUM Protein, Urine Dipstick Negative mg/dL CERNER MILLENNIUM [...] Urine Dipstick Clear Clear CERNER MILLENNIUM Specific [place] Urine Automated 1.015 1.002 - 1.030 CERNER [...] EST Lisa Bourgeois MD HEMATOLOGY ORDERABLE S [facility] * Basic Metabolic Panel (non-fasting) (08/23/2013 5:11 AM EST) Glucose 117 60 - 199 mg/dL CERNER MILLENNIUM Comment:Diabetes: >=200 mg/d L plus symptoms Blood Urea Nitrogen 11 10 - 20 mg/dL CERNER MILLENNIUM Creatinine 0.90 0.80 - 1.50 mg/dL CERNER MILLENNIUM Comment: Please note that the pediatric reference intervals supplied above were not validated at [facility]. Results from pediatric patients should be interpreted [...] In Lab Lisa Bourgeois MD CHEMISTRY ORDERABLES [facility] * (ABNORMAL) CBC (with Diff) (08/23/2013 5:11 [...] MD HEMATOLOGY ORDERABLE S Performing Organization Address City/State/[facility] Co de Phone Number EVELYN GONZÁLESIUM * (ABNORMAL) Hepatic Function Panel (08/23/2013 5:11 AM EST) Protein, Total 5.7(L) 6.4 - 8.3 gm/dL CERNER MILLENNIUM Albumin 3.9 3.2 - 5.2 gm/dL CERNER MILLENNIUM Aspartate Aminotransferase 26 0 - 39 unit/L CERNER MILLENNIUM Alanine Aminotransferase 38 0 - 55 unit/L CERNER MILLENNIUM Alkaline Phosphatase 77 40 - 120 unit/L CERNER MILLENNIUM Bilirubin, Total 1.4(H) 0.2 - 1.3 mg/dL CERNER MILLENNIUM Comment:result rechecked-[facility] Bilirubin, Direct 0.3 0.0 - 0.3 mg/dL CERNER MILLENNIUM Blood specimen (specimen) 08/23/2013 5:11 AM EST 08/23/2013 5:39 AM EST Narrative Resulting Agency Comment Spec In Lab Lisa Bourgeois MD CHEMISTRY ORDERABLES Performing Organization Address [facility] Co de Phone Number EVELYN GRACIA * Prothrombin Time (08/23/2013 5:11 AM EST) Prothrombin Time 14.7 12.0 - 15.0 sec CERNER MILLENNIUM Comment: [facility] Transfusion Committee Guidelines: INR less than [...] MD HEMATOLOGY ORDERABLE S Performing Organization Address [facility] de Phone Number CERDAYLIN OSCARENNIUM * (ABNORMAL) Magnesium (08/23/2013 5:11 AM EST) Magnesium 0.65(L) 0.69 - 1.07 mmol/L CERNER MILLENNIUM Blood specimen (specimen) 08/23/2013 5:11 AM EST 08/23/2013 5:39 AM EST Narrative Resulting Agency Comment Spec In Lab Lisa Bourgeois MD CHEMISTRY ORDERABLES Performing Organization Address [facility] de Phone Number EVELYN OSCARENNIUM * Phosphorus (08/23/2013 5:11 AM EST) Phosphorus 3.3 2.5 - 4.5 mg/dL CERNER CELESTINAENNIUM Blood specimen (specimen) 08/23/2013 5:11 AM EST 08/23/2013 5:39 AM EST Narrative Resulting Agency Comment Spec In Lab Lisa Bourgeois MD CHEMISTRY ORDERABLES Performing Organization Address [facility] de Phone Number CERDAYLIN OSCARENNIUM * (ABNORMAL) Differential, Automated (08/22/2013 1:35 [...] EST Duane Garcia MD HEMATOLOGY ORDERABL ES EVELYN G[facility]ÁLESIUM * Lipase (08/22/2013 1:35 PM EST) Lipase 53 0 - 60 unit/L CERNER MILLENNIUM Blood specimen (specimen) 08/22/2013 1:35 PM EST 08/22/2013 1:58 PM EST Narrative Resulting Agency Comment Spec In Lab Duane Garcia MD CHEMISTRY ORDERABLE S EVELYN GONZÁLESIUM * Amylase (08/22/2013 1:35 PM EST) Amylase 41 28 - 100 unit/L CERNER MILLENNIUM Blood specimen (specimen) 08/22/2013 1:35 PM EST 08/22/2013 1:58 PM EST Narrative Resulting Agency Comment Spec In Lab Duane Garcia MD CHEMISTRY ORDERABLE S CERNER CELESTINAENNIUM * (ABNORMAL) CMP w/fasting Glucose (08/22/2013 1:35 [...] of Diabetes Mellitus, Position Statement from the [place] Diabetes [employer]. ??Diabetes Care, Volume 33, Supplement 1, Aug 2009 Blood Urea Nitrogen 9(L) 10 - 20 mg/dL CERNER MILLENNIUM Creatinine 0.85 0.80 - 1.50 mg/dL CERNER MILLENNIUM Comment: Please note that the pediatric reference intervals supplied above were not validated at [facility]. Results from pediatric patients should be interpreted [...] Hemoglobin Concentration 34.5 32.0 - 36.5 gm/dL EVELYN GRACIA Platelet 234 145 - 370 x10(3)/mc L EVELYN GRACIA RDW Standard Deviation 46.8(H) 35.0 - 46.0 fL EVELYN GRACIA RDW coefficient of variation 12.9 10.9 - 14.4 % EVELYN GRACIA Mean Platelet Volume 9.8 9.0 - 12.0 fL EVELYN GRACIA Blood specimen (specimen) 08/22/2013 1:35 PM EST 08/22/2013 1:58 PM EST Narrative Resulting Agency Comment Spec In Lab Duane Garcia MD HEMATOLOGY ORDERABL ES EVELYN GRACIA * ERCP (08/22/2013 9:27 AM EST) ERCP [facility] Endoscopy Patient Name: Jeff Kallie ? Procedure Date: 08/22/2013 9:27 AM ? N: [id number] ? Date of : 1965 ? Age: 48 ? Order #: [id number] ? Procedure: ? ERCP Indications: ? Evaluation and possible treatment of ? bile duct stone(s) Providers: ? Duane Garcia MD, Dk Crow. ? TODD Baker, Mary Cano, Refractory Specialist Referring MD: ?Yoni Ramírez MD Medicines: ? [...] the procedure well. ? Findings: ? The information systems audit manager film was normal with the exception of [...] acquired absence of organ Leukocytosis Leukocytosis, unspecified documented in this encounter Administered Medications Inactive Administered Medications - up to 3 most recent administrations Medication Order MAR Action Action Date Dose Rate Site clonAZEpam (KLONOPIN) tablet 1 mg 1 mg, Oral, NIGHTLY, First dose on Sun08/22/13 at 2100, Until Discontinued, Routine Given 08/22/2013 8:51 PM EST 1 mg [id number] indomethacin/placebo suppository 100 mg 100 mg, Rectal, [...] Nausea, Starting on Sun08/22/13 at 1546, Until Sun08/23/13 at 1645, Avoid extravasation Given 08/22/2013 9:47 [...] 2050 (Given - Provider: Vania Borja RN) [id number] indomethacin/placebo suppository 100 mg (COMPLETED) 100 mg, Rectal, ONCE, 1 dose, On Sun08/22/13 at 1015, Endoscopy (Intra-Procedure), Routine 09 (Given - Provider: Dk Baker RN) esomeprazole [...] on 08/23/13 at 0900, Until Discontinued, Routine 08 (Given [...] Kim RN)1510 (New Bag - Provider: Zach Kim RN) 0805 (New Bag - Provider: Katrin [...] RN) documented in this encounter Care Teams Security Sales Consultant Relationship Specialty Start Date End Date Yoni Ramírez MD [address] [place] [phone] PCP - General 07/05/10 documented as of this encounter
--- OUTSIDE RECORDS SUMMARY | 2024-09-23 11:36 | XMS_ITS | Encounter Summary ---
[facility] Organization [facility] [place] [address] Care Team Providers Care Blanket Inspector Name Role Phone Yoni Ramírez MD Primary Care Provider Reason for Visit * Reason Comments GI Problem Encounter Details Date Type Department Care Team (Late st Contact Info) Description 07/24/2013 2:00 PM EST Office [place] [id number] Lidia Vyas APRN [facility] 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 Blood smears from CBCs yielding IG's will be scanned manually for concordance. If this scan disagrees with the automated IG or if promyelocytes are noted, a manual differential will be performed. Immature Gran Absolute 0.02 0.00 - 0.05 x10(3)/mcL [facility] Blood specimen (specimen) 07/24/2013 3:34 PM EST 07/24/2013 3:44 PM EST Michael Ventura MD HEMATOLOGY ORDERABL ES [facility] * HCV Quant Rosangela (07/24/2013 3:34 PM EST) HCV Viral Load <43 IU/mL [facility] HCV Viral Load Result: < 43 (Target [...] This assay is being performed in the [facility]. Philippe Nagel, Ph.D. Director, Molecular Pathology [facility] Comment: [VERIFIED DATE]07.29.13 Verified By:Salina Carranza (Electronic Signature) Blood specimen (specimen) 07/24/2013 3:34 PM EST 07/24/2013 3:44 PM EST Narrative Resulting Agency Comment Spec In Lab Michael Ventura MD HEMATOLOGY ORDERABL ES [facility] * (ABNORMAL) CBC (with Diff) (07/24/2013 3:34 PM EST) White Blood Cell 8.2 4.0 - 10.0 x10(3)/mc L [facility] Red Blood Cell 4.26(L) 4.63 - 6.08 x10(6)/mc L [facility] Hemoglobin 14.2 13.7 - 17.5 gm/dL [facility] Hematocrit 42.3 40.0 - 51.0 % [...] MD HEMATOLOGY ORDERABL ES Performing Organization Address [facility] de Phone Number EVELYN GRACIA * Prothrombin Time (07/24/2013 3:34 PM EST) Prothrombin Time 13.2 12.0 - 15.0 sec [facility] Comment: [facility] Transfusion Committee Guidelines: INR less than 2.0, PTT less than OR equal to 43.5 seconds, or Fibrinogen greater than or equal to 100 mg/dl indicate adequate procoagulant activity for hemostasis in patients without underlying bleeding disorders. International Normalization Ratio 1.0 0.9 - 1.1 [facility] [employer] [facility] Blood specimen (specimen) 07/24/2013 3:34 PM EST 07/24/2013 3:44 PM EST Narrative Resulting Agency Comment Spec In Lab Michael Ventura MD HEMATOLOGY ORDERABL ES Performing Organization Address [facility] de Phone Number EVELYN GRACIA documented in this encounter Visit Diagnoses Diagnosis Elevated liver function tests- Primary Other abnormal blood chemistry Unspecified viral hepatitis C without hepatic coma documented in this encounter Care Teams Blanket Inspector Relationship Specialty Start Date End Date Yoni Ramírez MD [address] [place] [id number] PCP - General 07/05/10 documented as of this encounter
--- OUTSIDE RECORDS SUMMARY | 2024-09-23 11:36 | XMS_ITS | Encounter Summary ---
Author Organization [facility] Address [address] [place] [address] Care Team Providers Care Ladies Locker Room Attendant Name Role Phone Unknown, Provider Primary Care Provider Unava ilable Encounter Details Date Type Department Care Team (Late st Contact Info) Description 10/06/2021 Lab Requisition [facility] Pathology & [facility] - [facility] [address], [place] [id number] Outr Resulting Lab, Provider Social History Tobacco [...] 0.0 - 3.5 ng/mL 10/07/2021 17:36 EST [facility] Blood VENOUS BLOOD / Unknown 10/06/2021 15:40 EST 10/07/2021 16:32 EST Narrative [facility] - 10/07/2021 17:36 EST NOTE: Serum PSA concentration should not be interpreted as absolute evidence for the presence or absence of malignant disease. Assayed on Siemens ADVIA SiVerionaur XPT using chemiluminescent technology.??Values obtained by using different assay methods cannot be used interchangeably. us Provider Outr Resulting Lab CHEMISTRY & BLOOD GA S ORDERABLES Final Result [facility] [address] [place] [address] documented in this encounter Visit Diagnoses Not on filedocumented in this encounter Care Teams Ladies Locker Room Attendant Relationship Specialty Start Date End Date Unknown, Provider, PCP - General 02/14/13 documented as of this encounter
--- OUTSIDE RECORDS SUMMARY | 2024-09-23 11:36 | XMS_ITS | Encounter Summary ---
Author Organization [facility] Address [address] [place] [address] Care Team Providers Care Wage Analyst Name Role Phone Unknown, Provider MD Primary Care Provider Unava ilable Encounter Details Date Type Department Care Team (Late st Contact Info) Description 07/31/2024 Lab Requisition [facility] Pathology & Laboratory Medicine - [facility] [address] [place], [place] [address] Outr Resulting Lab, Provider Social History Tobacco [...] Associated Diagnosis Comments PSA TOTAL, DIAGNOSTIC Routine 07/31/2024 17:00 EST documented in this encounter Results * PSA, DIAGNOSTIC (07/31/2024 17:00 EST) PSA <0.1 <=4.5 ng/mL 08/01/2024 18:38 EST [facility] Blood VENOUS BLOOD / Unknown 07/31/2024 17:00 EST 08/01/2024 17:47 EST Narrative [facility] - 08/01/2024 18:38 EST NOTE: Serum PSA concentration should not be interpreted as absolute evidence for the presence or absence of malignant disease. Assayed on Siemens ADVIA Referronaur XPT using chemiluminescent technology.??Values obtained by using different assay methods cannot be used interchangeably. us Provider Outr Resulting Lab CHEMISTRY & BLOOD GA S ORDERABLES Final Result [facility] [address] [place] [address] documented in this encounter Visit Diagnoses Not on filedocumented in this encounter Care Teams Wage Analyst Relationship Specialty Start Date End Date Unknown, Provider, PCP - General 02/14/13 documented as of this encounter
--- OUTSIDE RECORDS SUMMARY | 2024-09-23 11:36 | XMS_ITS | Encounter Summary ---
[place] [address] Care Team Providers Care Wood Router Hand Name Role Phone Yoni Ramírez MD Primary Care Provider Encounter Details Date Type Department Care Team (Late st Contact Info) Description 10/14/2013 Telephone [place] [address] Breezy Bragg MD [facility] [place] [address] Social History Tobacco Use Types Packs/Day Years [...] filedocumented in this encounter Care Teams Wood Router Hand Relationship Specialty Start Date End Date Yoni Ramírez MD [address] [place] [id number] PCP - General 07/05/10 documented as of this encounter
--- OUTSIDE RECORDS SUMMARY | 2024-09-23 11:36 | XMS_ITS | Encounter Summary ---
Author Organization [facility] Address [address] [place] [address] Care Team Providers Care Billiard Player Name Role Phone Unknown, Provider Primary Care Provider Valerie solomno Encounter Details Date Type Department Care Team (Late st Contact Info) Description 05/17/2021 Lab Requisition [facility] Pathology & Laboratory Medicine - [facility] [address] [place], [place] [id number] Outr Resulting Lab, Provider Social History Tobacco [...] RONI Interpretation Positive(A) Negative 05/18/2021 14:41 EDT [facility] RONI Titer and Pattern 1 1:80 Homogeneous 05/18/2021 14:41 EDT [facility] Blood VENOUS BLOOD / Unknown 05/16/2021 17:15 EDT 05/17/2021 16:00 EDT Narrative [facility] - 05/18/2021 14:41 EDT Results were obtained with the INOVA NOVA Lite HEp-2 RONI Kit by indirect immunofluorescence. us Provider Outr Resulting Lab IMMUNOLOGY AND SEROL OGY ORDERABLES Final Result [facility] [address] [place] [address] documented in this encounter Visit Diagnoses Not on filedocumented in this encounter Care Teams Billiard Player Relationship Specialty Start Date End Date Unknown, Provider, PCP - General 02/14/13 documented as of this encounter
--- OUTSIDE RECORDS SUMMARY | 2024-09-23 11:36 | XMS_ITS | Referral Summary ---
Author Organization [facility] Address [address] [place] [address] Care Team Providers Care Treer Name Role Phone Unknown, Provider MD Primary Care Provider Unava ilable Encounters Date Type Department Care Team Description 07/31/2024 Lab Requisition [facility] Pathology & Laboratory [facility] - [facility] [address] [place] [address] Outr Resulting Lab, Provider from Last 3 Months Social History Tobacco Use Types Packs/Day Years Used Date Smoking Tobacco: Never Assessed Sex and Gender Information Value Date Recorded Sex Assigned at Not on file Legal Sex Male 18:17 EST Gender Identity Not on file Sexual Orientation Not on file Plan of Treatment Not on file Procedures Procedure Name Priority Date/Time Associated Diagnosis Comments PSA TOTAL, DIAGNOSTIC Routine 07/31/2024 17:00 EST from Last 3 Months Results * PSA, DIAGNOSTIC (07/31/2024 17:00 EST) PSA <0.1 <=4.5 ng/mL 08/01/2024 18:38 EST [facility] Blood VENOUS BLOOD / Unknown 07/31/2024 17:00 EST 08/01/2024 17:47 EST Narrative [facility] - 08/01/2024 18:38 EST NOTE: Serum PSA concentration should not be interpreted as absolute evidence for the presence or absence of malignant disease. Assayed on Siemens ADVIA Centaur XPT using chemiluminescent technology.??Values obtained by using different assay methods cannot be used interchangeably. us Provider Outr Resulting Lab CHEMISTRY & BLOOD GA S ORDERABLES Final Result [facility] [address] [place] [address] from Last 3 Months Insurance [facility] [address] [place] [address], [place] [address] [place] [address] , [place] [address] Care Teams Treer Relationship Specialty Start Date End Date Unknown, Provider, PCP - General 02/14/13
--- OUTSIDE RECORDS SUMMARY | 2024-09-23 11:36 | XMS_ITS | Encounter Summary ---
Author Organization [facility] Address [address] [place] [address] Care Team Providers Care Supplier Specialist Name Role Phone Unknown, Provider Primary Care Provider Unava ilable Encounter Details Date Type Department Care Team (Late st Contact Info) Description 02/14/2013 Results Only [facility] [phone] Lucía Encinas MD [address] [facility] [place] [address] Social History Tobacco Use Types [...] ? JEFF FAIRCHILD ? Accession #: ? [id number] ? : ? 1965 (Age: 47) ??M [...] PATHOLOGY ORDERABLES Final Result [facility] [address] [place] [address] documented in this encounter Visit Diagnoses Not on filedocumented in this encounter Care Teams Supplier Specialist Relationship Specialty Start Date End Date Unknown, Provider, PCP - General 02/14/13 documented as of this encounter
--- OUTSIDE RECORDS SUMMARY | 2024-09-23 11:36 | XMS_ITS | Clinical Summary ---
Author Organization [facility] Address [address] [place] [address] Care Team Providers Care Director Of Curriculum Name Role Phone Unknown, Provider MD Primary Care Provider Unava ilable Encounters Date Type Department Care Team Description 07/31/2024 Lab Requisition [facility] Pathology & Laboratory Medicine - [facility] [address] [place] [address] Outr Resulting Lab, Provider from Last 3 [...] Comments Hepatitis C Screen 1965 COVID-19 Vaccine ( season) 2024 RSV Immunization ( o r 60+ Years) (1 - 1-dose 75+ series) 2038 Procedures Procedure Name Priority Date/Time Associated Diagnosis Comments PSA TOTAL, DIAGNOSTIC Routine 07/31/2024 17:00 EST from Last 3 Months Results * PSA, DIAGNOSTIC (07/31/2024 17:00 EST) PSA <0.1 <=4.5 ng/mL 08/01/2024 18:38 EST [facility] Blood VENOUS BLOOD / Unknown 07/31/2024 17:00 EST 08/01/2024 17:47 EST Narrative [facility] - 08/01/2024 18:38 EST NOTE: Serum PSA concentration should not be interpreted as absolute evidence for the presence or absence of malignant disease. Assayed on Siemens ADVIA Centaur XPT using chemiluminescent technology.??Values obtained by using different assay methods cannot be used interchangeably. us Provider Outr Resulting Lab CHEMISTRY & BLOOD GA S ORDERABLES Final Result [facility] [address] [place] [address] from Last 3 Months Insurance [place] [address] , [place] [address] , [place] [address] Care Teams Director Of Curriculum Relationship Specialty Start Date End Date Unknown, Provider, PCP - General 02/14/13
--- OUTSIDE RECORDS SUMMARY | 2024-09-23 11:36 | XMS_ITS | Encounter Summary ---
Author Organization [facility] Address [address] [place] [address] Care Team Providers Care Reprographics Technician Name Role Phone Unknown, Provider Primary Care Provider Unava ilable Encounter Details Date Type Department Care Team (Late st Contact Info) Description 02/01/2022 Lab Requisition [facility] Pathology & Laboratory Medicine - [facility] [address] [place] [address] Aguila Altman MD [address] [place] [address] Retention of urine, unspecified Social History Tobacco [...] Name Priority Date/Time Associated Diagnosis Comments NON FURNACE STOCK INSPECTOR/FNA CYTOLOGY Today 01/31/2022 12:55 EDT Retention of urine, unspecified documented in this encounter Results * NON FURNACE STOCK INSPECTOR/FNA CYTOLOGY (01/31/2022 12:55 EDT) Note to Patient The following pathology results have been interpreted by your pathologist and may be available to you before your health provider has had the opportunity to review them. Please allow time for your provider to receive these results and explore management options, if applicable. 02/01/2022 14:34 EDT [facility] Final Diagnosis URINE, CATHETERIZED, CYTOLOGIC EVALUATION: - Negative for high grade urothelial carcinoma. - Degenerated urothelial cells and leukocytes. 02/01/2022 14:34 T [facility] Attestation By the signature below, the attending physician certifies that they have personally conducted a gross and/or microscopic examination of the described specimens and rendered or confirmed the above diagnosis. 02/01/2022 14:34 EDT [facility] at 1434 Clinical History Retention of urine, unspecified; R33/9 02/01/2022 14:34 T [facility] Gross Description A. 80ccs of clear yellow fluid, of which 40ccs are composed of fixative, were received and processed by selective cellular enhancement technique. 02/01/2022 14:34 T [facility] Performing Lab [facility] 02/01/2022 14:34 [facility] Scanned Images 02/01/2022 14:34 [facility] Urine URINE SPECIMEN COLLECTION, CATHETERIZED / Unknown 01/31/2022 12:55 EDT 02/01/2022 6:29 EDT us Aguila Altman MD PATHOLOGY ORDERABLES Final R esult [facility] [address] [place] [address] documented in this encounter Visit Diagnoses Diagnosis Retention of urine, unspecified documented in this encounter Care Teams Reprographics Technician Relationship Specialty Start Date End Date Unknown, Provider, PCP - General 02/14/13 documented as of this encounter
--- OUTSIDE RECORDS SUMMARY | 2024-09-23 11:36 | XMS_ITS | Encounter Summary ---
Author Organization [facility] Address [address] [place] [address] Care Team Providers Care Dual Hose Cementer Name Role Phone Unknown, Provider MD Primary Care Provider Unava ilable Encounter Details Date Type Department Care Team (Late st Contact Info) Description 09/04/2020 Lab Requisition [facility] Pathology & Laboratory Medicine - [facility] [address] [place], [place] [address] Outr Resulting Lab, Provider Social History Tobacco [...] 0.0 - 3.5 ng/mL 09/06/2020 10:58 EST [facility] Blood VENOUS BLOOD / Unknown 09/03/2020 15:15 EST 09/05/2020 20:21 EST Narrative [facility] - 09/06/2020 10:58 EST NOTE: Serum PSA concentration should not be interpreted as absolute evidence for the presence or absence of malignant disease. Assayed on Siemens ADVIA PredictAdaur XPT using chemiluminescent technology.??Values obtained by using different assay methods cannot be used interchangeably. us Provider Outr Resulting Lab CHEMISTRY & BLOOD GA S ORDERABLES Final Result [facility] [address] [place] [address] documented in this encounter Visit Diagnoses Not on filedocumented in this encounter Care Teams Dual Hose Cementer Relationship Specialty Start Date End Date Unknown, Provider, PCP - General 02/14/13 documented as of this encounter
--- OUTSIDE RECORDS SUMMARY | 2024-09-23 11:36 | XMS_ITS | Encounter Summary ---
Author Organization [facility] Address [address] [place] [address] Care Team Providers Care Security Researcher Name Role Phone Unknown, Provider Primary Care Provider Unava ilable Encounter Details Date Type Department Care Team (Late st Contact Info) Description 01/01/2020 Lab Requisition [facility] Pathology & Laboratory Medicine - [facility] [address] [place], [place] [address] Outr Resulting Lab, Provider Social History Tobacco [...] rt-PCR Result NEGATIVE Negative 01/03/2020 12:30 EDT [facility] Comment: 2019-novel Coronavirus (2019-nCoV) [...] in accordance with CLIA regulations, [employer] [place] [employer] (CAP) guidelines (Oct 30, 2019), and FDA guidance (Oct 11, 2019). This test is only for use under the Food and Drug Administration's Emergency Use Authorization. Swab ENTIRE NASOPHARYNX / Unknown 01/01/2020 20:14 EDT 01/02/2020 21:34 EDT us Provider Outr Resulting Lab MICROBIOLOGY - GENER AL ORDERABLES Final Result [facility] [place] * COVID-19 TESTING (01/01/2020 20:14 EDT) COVID-19 rt-PCR Result NEGATIVE Negative 01/03/2020 14:43 EDT [facility] Comment: 2019-novel Coronavirus (2019-nCoV) not detected [...] in accordance with CLIA regulations, [employer] [place] [employer] (CAP) guidelines (Oct 30, 2019), and FDA guidance (Oct 11, 2019). This test is only for use under the Food and Drug Administration's Emergency Use Authorization. Performing Lab [facility] 01/03/2020 14:43 EDT [facility] Swab ENTIRE NASOPHARYNX / Unknown 01/01/2020 20:14 EDT 01/02/2020 21:34 EDT us Provider Outr Resulting Lab MICROBIOLOGY - GENER AL ORDERABLES Final Result [facility] [address] [place] [address] [facility] [place], [place] documented in this encounter Visit Diagnoses Not on filedocumented in this encounter Care Teams Security Researcher Relationship Specialty Start Date End Date Unknown, Provider, PCP - General 02/14/13 documented as of this encounter
--- OUTSIDE RECORDS SUMMARY | 2024-09-23 11:36 | XMS_ITS | Encounter Summary ---
Author Organization [facility] Address [address] [place] [address] Care Team Providers Care Grain Trader Name Role Phone Unknown, Provider Primary Care Provider Unava ilable Encounter Details Date Type Department Care Team (Late st Contact Info) Description 10/10/2021 Lab Requisition [facility] Pathology & Laboratory Medicine - [facility] [address] [place] [address] Aguila Altman MD [address] [place] [address] Retention of urine, unspecified Social History Tobacco [...] Name Priority Date/Time Associated Diagnosis Comments NON TITLE DEPARTMENT MANAGER/FNA CYTOLOGY Today 10/06/2021 14:48 EST Retention of urine, unspecified documented in this encounter Results * NON TITLE DEPARTMENT MANAGER/FNA CYTOLOGY (10/06/2021 14:48 EST) Note to Patient The following pathology results have been interpreted by your pathologist and may be available to you before your health provider has had the opportunity to review them. Please allow time for your provider to receive these results and explore management options, if applicable. 10/11/2021 11:[address] [facility] Final Diagnosis A. URINE, VOIDED, CYTOLOGIC EVALUATION: - Negative for high grade urothelial carcinoma. - Rare reactive urothelial cells present. 10/11/2021 11:54 [facility] Attestation There was significant resident/shira w involvement in the diagnostic evaluation of this case. By the signature below, the attending physician certifies that they have personally conducted a gross and/or microscopic examination of the described specimens and rendered or confirmed the above diagnosis. 10/11/2021 11:54 [facility] at 1154 Clinical History Retention of urine; R33.9 10/11/2021 11:54 [facility] Gross Description A. 100ccs of dark philip fluid, of which 50ccs are composed of fixative, were received and processed by selective cellular enhancement technique. 10/11/2021 11:54 [facility] Resident/Shira w: Nicolasa Sewell MD 10/11/2021 11:54 [facility] Performing Lab [facility] 10/11/2021 11:54 [facility] Scanned Images 10/11/2021 11:54 [facility] Urine VOIDED URINE SPECIMEN / Unknown 10/06/2021 14:48 EST 10/10/2021 6:48 EST us Aguila Altman MD PATHOLOGY ORDERABLES Final R esult [facility] [address] [place] [address] documented in this encounter Visit Diagnoses Diagnosis Retention of urine, unspecified documented in this encounter Care Teams Grain Trader Relationship Specialty Start Date End Date Unknown, Provider, PCP - General 02/14/13 documented as of this encounter
--- OUTSIDE RECORDS SUMMARY | 2024-09-23 11:36 | XMS_ITS | Encounter Summary ---
[place] [address] Care Team Providers Care Tactical Air Control Party Manager Name Role Phone Yoni Ramírez MD Primary Care Provider Encounter Details Date Type Department Care Team (Late st Contact Info) Description 08/22/2013 9:35 AM EST Anesthesia Event [place] [address] Howard Nation MD Anesthesia Record Procedure Summary [...] Procedure(s): ERCP Actual Anesthetic: general Patient location: [facility] Surgical Floor Post-op pain: Adequate analgesia Post-op [...] normal exam Comment: Poor condition 2/2 bruxism [facility] Assessment: IV access: Peripheral line Anesthesia Plan: ASA 2 general, with a(n) intravenous induction Anesthetic risks, benefits, and alternatives discussed in detail with patient who appears to understand and agree. Questions answered and consent form signed. [facility] Informed Consent: Anesthetic plan and risks discussed with patient and spouse. Plan discussed with HOSPICE CARE TRANSITIONS COORDINATOR. [facility]. Assessment: documented in this encounter Plan of [...] mg documented in this encounter Care Teams Tactical Air Control Party Manager Relationship Specialty Start Date End Date Yoni Ramírez MD [address] [place] [id number] PCP - General 07/05/10 documented as of this encounter
[2024-09-25 11:22] LABS: PSA, Ultrasensitive <0.01 ng/mL (<= 4.5)
[2024-09-27 11:49] LABS: Testosterone, Total 18 ng/dL (240-950)
== END 2024-09-23 11:27 | disposition home or self-care (01) ==
LOC: LBO 11:27
PROVIDERS: PCP Internal Medicine; Visit Provider Nurse Practitioner
DX: C61 Malignant neoplasm of prostate (principal); R30.0 Dysuria; Z79.818 Long term (current) use of other agents affecting estrogen receptors and estrogen levels
CPT/HCPCS: 36415; 80053; 84153; 84403; 85025

== ENCOUNTER 2024-12-11 17:48 | Outpatient (REF) | payer MEDICARE, MEDICAID, SELFPAY ==
[2024-12-23 08:53] LABS: Misc Referral (MAYO) See Comments
== END 2024-12-11 17:49 | disposition home or self-care (01) ==
LOC: NCHCN 17:48
PROVIDERS: PCP Internal Medicine; Visit Provider Internal Medicine
DX: G89.4 Chronic pain syndrome (principal)
CPT/HCPCS: 80361

== ENCOUNTER 2025-01-09 17:01 | Outpatient (REF) | payer MEDICARE, MEDICAID, SELFPAY ==
[2025-01-09 19:26] LABS: Abs Immature Grans 0.02 10^3/uL (0.0-0.06); Absolute Basophil Count 0.02 10^3/uL (0.0-0.2); Absolute Eosinophil Count 0.19 10^3/uL (0.0-0.7); Absolute Lymphocyte Count 1.77 10^3/uL (1.2-3.4); Absolute Monocyte Count 0.82 10^3/uL (0.1-0.8); Absolute Neutrophil Count 3.65 10^3/uL (1.2-6.7); Basophils % 0.3 %; Eosinophils % 2.9 %; HCT 38.1 % (40.0-50.0); HGB 12.9 g/dL (13.5-17.5); Immature Grans % 0.3 %; Lymphocytes % 27.4 %; MCH 32.3 pg (27.0-33.0); MCHC 33.9 % (32.0-36.0); MCV 96 fL (80-95); Monocytes % 12.7 %; Neutrophils % 56.4 %; Platelet Count 320 10^3/uL (130-400); RBC 3.99 10^6/uL (4.36-5.78); RDW 13.2 % (11.8-14.1); RDW-SD 46.7 fL; WBC 6.47 10^3/uL (4.4-10.8)
[2025-01-09 19:46] LABS: ALT 30 U/L (16-63); AST 24 U/L (15-37); Alkaline Phosphatase 115 U/L (46-116); Anion Gap 6.3 mmol/L (3-11); BUN 18 mg/dL (7-18); Bilirubin, Total 0.8 mg/dL (0.2-1.0); CO2 30.7 mmol/L (21.0-32.0); Calcium 8.8 mg/dL (8.5-10.1); Chloride 98 mmol/L (98-107); Estimated GFR 85.63 (mL/min/1.73m2); Glucose 110 mg/dL (74-106); Potassium 3.9 mmol/L (3.5-5.1); Sodium 135 mmol/L (136-145); Total Protein 7.6 g/dL (6.4-8.2)
[2025-01-14 13:23] LABS: PSA, Ultrasensitive <0.01 ng/mL (<= 4.5)
[2025-01-14 14:48] LABS: Testosterone, Total 22 ng/dL (240-950)
== END 2025-01-09 17:02 | disposition home or self-care (01) ==
LOC: LBN 17:01
PROVIDERS: PCP Internal Medicine; Visit Provider Nurse Practitioner
DX: Z79.818 Long term (current) use of other agents affecting estrogen receptors and estrogen levels (principal); C61 Malignant neoplasm of prostate; R30.0 Dysuria
CPT/HCPCS: 80053; 84153; 84403; 85025

== ENCOUNTER → 2025-01-19 13:52 | Outpatient (BNVA) | payer MEDICARE, MEDICAID, SELFPAY | PROVIDERS: PCP Internal Medicine; Referring Provider Internal Medicine; Visit Provider Nurse Practitioner Gerontology | DX: C61 Malignant neoplasm of prostate (principal); N40.1 Benign prostatic hyperplasia with lower urinary tract symptoms; N13.8 Other obstructive and reflux uropathy; R39.9 Unspecified symptoms and signs involving the genitourinary system | CPT/HCPCS: 99214; 81003; 51798 ==

== ENCOUNTER → 2025-01-29 13:11 | Outpatient (BNVA) | payer MEDICARE, MEDICAID, SELFPAY | PROVIDERS: PCP Internal Medicine; Referring Provider Internal Medicine; Visit Provider Physical Therapy Assistant | DX: Z12.11 Encounter for screening for malignant neoplasm of colon (principal) | CPT/HCPCS: S0285 ==

== ENCOUNTER 2025-02-09 09:34 | Day surgery (SDC) | payer MEDICARE, MEDICAID, SELFPAY ==
--- NOTE | 2025-02-08 03:32 | PDOC.DSDIS_ITS ---
Date of service: 02/09/25 Discharge Plan Disposition Patient Disposition: Home Condition: Good Discharge Details Reason For Visit: EGD and colonoscopy Attending Provider: Arthur Delacruz Primary Care Provider: Yoni Ramírez Home Meds and New Rx's Prescriptions: Continued losartan-hydrochlorothiazide 100-25 mg tablet 1 tab PO DAILY amlodipine 5 mg tablet 5 mg PO DAILY calcitriol 0.5 mcg capsule 0.5 mcg PO DAILY tamsulosin [Flomax] 0.4 mg capsule 0.4 mg PO DAILY Qty: 90 1RF atorvastatin 20 mg tablet 20 mg PO DAILY amitriptyline 25 mg tablet 25 mg PO DAILY aspirin 81 mg Tablet,Delayed Release (Dr/Ec) 81 mg PO DAILY acetaminophen [Acetaminophen Extra Strength] 500 mg Tablet 1,000 mg PO TID PRN hydromorphone [Dilaudid] 2 mg Tablet 2 - 4 mg PO DAILY PRN ondansetron 4 mg Tablet,Disintegrating 4 mg PO Q8H PRN naloxone [Narcan] 4 mg/actuation Lovilia,Non-Aerosol 4 mg INTRANASAL Q2-3M PRN lidocaine [Lidoderm] 5 % adhesive patch,medicated 1 patch topical DAILY Qty: 15 0RF Rx Instructions: leave on most painful area for up to 12 hrs Discontinued bisacodyl [Dulcolax (bisacodyl)] 5 mg tablet,delayed release (DR/EC) 5 mg PO ONCE Qty: 4 0RF Rx Instructions: Take per colonoscopy instructions provided by ordering providers office polyethylene glycol 3350 17 gram/dose powder 17 g PO ONCE Qty: 238 0RF Rx Instructions: Take per colonoscopy instructions provided by ordering providers office Discharge Instructions Instructions: Peptic ulcers, Inflammatory Bowel Disease (DC) Additional Instructions: Jeff, I am glad that you are feeling better. I am sorry that you had so much discomfort after the procedure. Thankfully, your CAT scan was interpreted as totally normal, and your discomfort seems to be improving quite rapidly. 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 These can be caused by a number of different things. I did do some biopsies today to see if that sheds any light on it, and I would like to wait to see with those results before making any changes. With regard to the colonoscopy, there is inflammation of your sigmoid colon and rectum. Clinically, it looks more consistent with ulcerative colitis, but Crohn's disease can also appear this way. I did biopsies of this as well. My office should get all those results in the next week or 2, once I have that information we will be in touch with other recommendations. If you need anything, or have any questions at all in the meantime, please do not hesitate to ask. 1. If tolerated, consume a soft, low fiber diet for 1-2 days. 2[address] Do not drive, drink alcohol, operate machinery, make critical decisions, or do activities that require coordination or balance for 24 hours. 3. Because air was put into your colon during the procedure, expelling air from your rectum (passing gas or farting) is normal. 4. You may not have a bowel movement for 1-3 days because of the colonoscopy prep. This is normal. 5. You may experience a sore throat for 24 to 48 hours. You may use throat lozenges or gargle with warm salt water to relieve the discomfort. 6. Because air was put into your stomach during the procedure, you may experience some belching. 7. Go directly to the emergency room if you notice any of the following: Develop chills (warm to touch), or if you have a thermometer and your temperature is above 101 Difficulty breathing or difficultly swallowing Persistent vomiting Severe abdominal pain, other than gas cramps Severe chest pain Black, tarry stools Any bleeding ? exceeding one tablespoon 8. Call your physician if the site where your intravenous was started becomes red, swollen, painful, and warm to touch. 9. Your physician has reviewed your pre-procedure medications. Please continue to take those medications as previously ordered. You will be given specific information/education regarding any changes to your medications before leaving. Stand Alone Forms: Anesthesia Discharge InstSteven Biggs (DSU) Activity:: Activity as Tolerated Diet:: As Tolerated DS: Diagnosis Discharge Diagnosis (1) Dysphagia: Status: Acute Asessment and Plan: Follow-up on biopsy results
--- NOTE | 2025-02-08 03:33 | W.PM.ENDDOP ---
Date of service: 02/09/25 Time of Service: 13:31 Endoscopy Report DATE OF PROCEDURE: 02/09/25 PRE-OP DIAGNOSIS: Dysphagia and screening colonoscopy POST-OP DIAGNOSIS: other (Peptic ulcer disease, Mendoza's esophagus, inflammatory bowel disease) PROCEDURE: EGD with biopsies and colonoscopy with biopsies SURGEON: Arthur Delacruz ANESTHESIA TYPE: General:No Airway ESTIMATED BLOOD LOSS: 10 PATHOLOGY: other (Biopsies of duodenum, antral ulcer, gastric body, and gastroesophageal junction; rectal biopsies, biopsy of colon at 35 cm) COMPLICATIONS: None DISPOSITION: same day INDICATIONS: Jeff is a 59-year-old man has been experiencing dysphagia. He is also due for screening colonoscopy PREP: Miralax/Dulcolax PROCEDURE START TIME: 12:17 PROCEDURE END TIME: 13:18 FINDINGS: Peptic ulcer disease, short segment Mendoza's esophagus; inflammatory bowel disease PROCEDURE DESCRIPTION: After the initiation of monitored anesthetic care, and with the assistance of a bite block, I advanced a standard gastroscope through the mouth past the hypopharynx and into the esophagus.? Under the direct vision of the scope, I advanced down the esophagus towards the stomach.? The upper, mid, and lower esophagus were all normal and healthy appearing. The GE junction measured 40 cm beyond the incisors. There is less than 3 cm of irregularity of the Z-line, and narrowband imaging was consistent with Mendoza's esophagus. Cold forceps biopsies were performed here to confirm the diagnosis. I did not appreciate any other thickening of the distal esophagus, or any other pathology in the distal esophagus. I do not see a hiatal hernia. I can advance across the GE junction with ease, and retroflexion also appears normal. There is diffuse inflammation of the gastric mucosa, most heavily concentrated at the antrum. There are discrete punctate ulcers in the antral area with no visible vessels nor any signs of active bleeding. Edges are flat. I can advance across the pylorus into the duodenum, which also shows peptic duodenitis. I performed cold forceps biopsies of the duodenum, as well as the antral ulceration. I also performed some nondirected biopsies in the gastric body to rule out Helicobacter pylori. The stomach was then emptied, and the camera was brought out along the length of the esophagus 1 last time. No other abnormalities were appreciated. Next, we rolled Jeff into the left lateral decubitus position. I began by performing an external anorectal exam.? Perineum and skin were normal, as was the anal verge.? There was no evidence of external hemorrhoids.? Next, I performed a digital rectal exam.? I did not appreciate any abnormal findings.? Next, I advanced a colonoscope into the rectal vault.? There is ulceration of the rectum extending from the top of the anal canal all the way through the sigmoid section. It is most heavily concentrated in the distal rectum. Cold forceps biopsies were performed, but based on the appearance, in the distribution, I suspect this is probably ulcerative colitis.? Using insufflation, I then advanced the colonoscope beyond the rectal folds and into the sigmoid colon before advancing towards the cecum. The inflammation ended around 35 cm beyond the anal verge. There were a few scattered diverticula along the rest of the colon, but otherwise I saw no evidence of any transverse colon or right-sided mucosal disease. The scope was noted to be in the cecum by identification of the ileocecal valve and appendiceal orifice.? I then began withdrawing the colonoscope using repeated irrigation as necessary for full evaluation of the colonic mucosa. ?Again, around 35 cm from the anal verge was a discrete transition of the colon mucosa. I performed some cold forceps biopsies of this. There was minimal bleeding. Once the scope was withdrawn to the level of the rectum, great care was taken to examine portions of the rectal folds.? Finally, the scope was withdrawn and the patient was awoken from the anesthetic. Immediately upon awakening, he began describing intense abdominal pain, focus mostly in the suprapubic area. Heart rate was normal. Blood pressure was normal. However, he remained in quite a bit of discomfort, and it seemed to be getting worse. He was moved over to the PACU, and observed for a short period of time. With no improvement of his symptoms even with medication, I felt like an emergency CT scan was most reasonable, as I would consider him high risk for perforation based on his inflammatory bowel disease. He was brought back to the postanesthesia care unit immediately after the CT scan, which was personally interpreted by me prior to the radiologist. I saw no evidence of any perforation, or any signs of worrisome inflammation. He was observed for short period of time, and his symptoms improved dramatically. He was then brought back to the day surgery unit.
[2025-02-09] VITALS (27 sets, daily range): BP systolic 132–164; BP diastolic 67–98; PULSE 70–92; RESP 12–22; TEMP 36.2–36.6; O2SAT 94–99; BMI 36.3
--- NOTE | 2025-02-09 | DI.CT_ITS ---
Exam(s) CT ABDOMEN PELVIS W EXAM: CT ABDOMEN PELVIS W CLINICAL HISTORY: Abdominal pain after colonoscopy. TECHNIQUE: Imaging Protocol: Axial computed tomography images with coronal and sagittal reformatted images were created and reviewed CONTRAST MATERIAL: Intravenous: Omnipaque 350 Contrast volume:100 ml Oral: yes no COMPARISON: CT CT CHEST/ABD/PEL W from 11/06/2023 FINDINGS: ABDOMEN and PELVIS: Lung Bases: No acute findings. Small hiatal hernia. Liver: Enlarged. Hepatic steatosis.. No suspicious mass. Gallbladder and biliary tract: Cholecystectomy fluid. No biliary dilation. Pancreas: Normal density. No abnormal calcifications or inflammatory process. No evidence of mass. Spleen: Normal. Kidneys: Normal size, contour and axis. No radiodense stones. No obstructive uropathy. No suspicious masses seen. Adrenal glands: No masses seen. Vasculature: Abdominal aorta non-dilated. Soft tissues: Unremarkable small fat containing hernia just above the level of the umbilicus. Bladder: No gross wall thickening. No calculi.No focal mass. Bowel: No obstruction. No bowel wall thickening. Appendix normal. Colon decompressed. Mild diverticulosis descending and sigmoid.. No evidence of diverticulitis. Peritoneal cavity: No ascites. No focal collection. No mesenteric inflammatory response. No free air. Bones: Severe degenerative changes of the right hip. Reproductive organs: Metallic densities in the prostate. Normal size. Lymph nodes: No pathologically enlarged lymph nodes. IMPRESSION:: No acute abnormality in the abdomen or pelvis. Mild colonic diverticulosis without evidence of diverticulitis. No evidence of inflammation. No evidence of free air. No abnormal distension. RADIATION DOSE DELIVERED: 890.54mGy.cm Total DLP DATA REPOSITORY: All CT scans at this facility are submitted to the National Radiology Data Registry (NRDR) Dose Index Registry (DIR) with the [employer] (ACR). RADIATION OPTIMIZATION: All CT scans at this facility use at least one of these dose optimization techniques: automated exposure control; mA and/or kV adjustment per patient size (includes targeted exams where dose is matched to clinical indication); or iterative reconstruction.
[2025-02-09] MEDS: Lactated Ringers 1,000 ML 80 ML IV ×2 (10:40→13:05)
--- NOTE | 2025-02-09 12:02 | W.ANESPRE ---
General Info Date of Service Date Performed: 02/09/25 Height: 5 ft 10 in Weight: 115 kg Body Mass Index (BMI): 36.3 Surgical Procedure: Operation Date: 02/09/25 11:20 Proposed Procedure Side Surgeon p Colonoscopy/Gastroscopy Arthur Delacruz MD Meds Allergies and Home Medications Allergies Allergy/AdvReac Type Severity Reaction Status Date / Time buprenorphine (From Suboxone) Allergy Unknown Verified 02/09/25 10:20 ephedrine Allergy Unknown Unverified 02/09/25 10:20 escitalopram (From Lexapro) Allergy Skin Rash Verified 02/09/25 10:20 naloxone (From Suboxone) Allergy Unknown Verified 02/09/25 10:20 diphenhydramine (From AdvReac Mild hyperactivi Verified 02/09/25 10:20 Benadryl) ty Home Medication ?Medication ?Instructions ?Recorded acetaminophen 500 mg tablet 1,000 mg PO TID PRN 10/06/20 (Acetaminophen Extra Strength) aspirin 81 mg tablet,delayed 81 mg PO DAILY 10/06/20 release hydromorphone 2 mg tablet 2 - 4 mg PO DAILY PRN 10/06/20 (Dilaudid) naloxone 4 mg/actuation nasal 4 mg intranasal Q2-3M PRN 10/06/20 spray (Narcan) ondansetron 4 mg disintegrating 4 mg PO Q8H PRN 10/06/20 tablet lidocaine 5 % topical patch 1 patch topical DAILY #15 ea 11/04/20 (Lidoderm) atorvastatin 20 mg tablet 20 mg PO DAILY 04/27/21 amitriptyline 25 mg tablet 25 mg PO DAILY 03/03/24 amlodipine 5 mg tablet 5 mg PO DAILY 01/19/25 calcitriol 0.5 mcg capsule 0.5 mcg PO DAILY 01/19/25 losartan 100 1 tab PO DAILY 01/19/25 mg-hydrochlorothiazide 25 mg tablet tamsulosin 0.4 mg capsule (Flomax) 0.4 mg PO DAILY #90 caps 01/19/25 Current Visit Medications: Current Medications Generic Name Dose Route Start Last Admin Trade Name Freq PRN Reason Stop Dose Admin Ringer's Solution 1,000 mls @ 80 mls/hr 02/09/25 06:00 02/09/25 10:40 IV 02/09/25 23:59 80 mls/hr INFUSION KI Administration IV Miscellaneous Supplies 1 each 02/09/25 06:00 Iv Access IV 02/09/25 23:59 DIRECTED KI Ondansetron HCl 4 mg 02/08/25 03:34 Ondansetron 4 Mg/2 Ml Vial IVP 03/10/25 03:33 Q4H PRN PRN Nausea / Vomiting Sodium Chloride 0 ml 02/09/25 06:00 Normal Saline Flush 10 Ml Syr IV 02/09/25 23:59 PRN PRN Sodium Chloride 0 ml 02/09/25 06:00 Normal Saline 10 Ml Vial IJ 02/09/25 23:59 DIRECTED PRN Sterile Water 0 ml 02/09/25 06:00 Water,Injection,Sterile 10 Ml Vial IJ 02/09/25 23:59 DIRECTED PRN PFSH Active Problems Active Problems: Problem Status Onset Code Dysphagia Acute R13.10 BPH w urinary obs/LUTS Acute N40.1, N13.8 Hyperlipidemia Acute E78.5 HTN (hypertension) with goal to be determined Acute I10 Chronic pain Chronic G89.29 BPH (benign prostatic hyperplasia) Chronic N40.0 Prediabetes Acute R73.03 CKD (chronic kidney disease) stage 3, GFR 30-59 ml/min Acute N18.30 Venous insufficiency (chronic) (peripheral) Acute I87.2 Supraventricular tachycardia Chronic I47.1 Panic attack Acute F41.0 Low back pain Acute M54.5 HTN (hypertension) Acute I10 Medical History Medical History Prostate cancer Lacunar infarction Hx of hyperlipidemia Surgical History Surgical History H/O esophagogastroduodenoscopy History of colonoscopy with polypectomy (~04/10/19) [facility] Dr. Knight, rectal polyp H/O parathyroidectomy Hx of cholecystectomy Tobacco Smoking/Tobacco Use Status: Former Tobacco Use Passive smoking exposure: No Alcohol Alcohol Intake: never Substance Use Substance use: Occasionally Substance use type: marijuana Vital Signs and Lab Results Vital Signs Most Recent Vital Signs in EMR: Most Recent Vital Signs Temp Pulse Resp BP Pulse Ox 36.4 C L 78 18 140/76 98 02/09/25 10:23 02/09/25 10:23 02/09/25 10:23 02/09/25 10:23 02/09/25 10:23 Anesthesia Assessment and Plan Anesthesia History Personal History: No History of Anesthesia Complications and Other Family History: No Family History of Anesthesia Complications Exercise Tolerance Exercise Tolerance: Metabolic Equivalents>4 Pertinent Negatives Pertinent Negatives: No Symptoms of GERD ((+) reflux) Cardiac & Pulmonary Exam Cardiac Exam: Normal S1/S2 Heart Sounds Pulmonary Exam: Clear Bilateral Breath Sounds Implantable Cardiac Device Does patient have a Pacemaker or an ICD?: No Airway Exam Known Difficult Airway: No Mallampati Class: 3 Mouth Opening: Normal (> 3cm) Thyromental Distance: Greater than 3 cm Neck Range of Motion: Full ROM Neck Circumference: Normal Teeth Condition: Normal Dentition ASA Classification ASA Score: ASA 3 Emergency Case?: No NPO Status NPO Status: NPO Clears >2 hours, Solids >8 hours Anesthesia Plan Resuscitation Status: Full Code Anesthesia Technique: General Anesthesia Airway Planned: Natural Airway Monitors Used: Standard Monitors
--- NOTE | 2025-02-09 12:20 | BOWEL_PTH ---
PATIENT: Jeff Arreguin LOC: [facility] U#:[id number] AGE/SX: 59/M ROOM: RE02/09/[address]: Arthur Delacruz MD : 1965 BED: DIS: 02/09/2025 SPEC #: [id number] RECD: 02/09/25 17:50 STATUS: RAMBO REQ #: [id number] ISAIAH: 02/09/25 12:[address]: Arthur Delacruz DEPT: Surgical Specimen RECD BY: Génesis Dinero ENTERED: 02/09/25 17:52 SP TYPE: Bowel OTHR DR: Yoni Ramírez Tissues: 1 - BIOPSY BOWEL 2 - STOMACH BIOPSY 3 - STOMACH BIOPSY 4 - ESOPHAGUS BIOPSY 5 - BIOPSY BOWEL 6 - BIOPSY BOWEL Procedures: GROSS AND MICRO LEVEL 4 IMMUNOPEROXIDASE STAIN Comments: [id number]
[2025-02-09] MEDS: HYDROmorphone 2 MG/ML SYR IVP (13:43)
[2025-02-09] MEDS: Omnipaque 350 MG/ML 100 ML BTL IJ (13:51)
[2025-02-09] MEDS: Normal Saline - Diluent 50 ML VIAL IJ (13:52)
--- NOTE | 2025-02-09 15:09 | W.ANESPOSTOP ---
Postoperative Evaluation Date, Time and Location Date Performed: 02/09/25 Time Performed: 15:10 Patient Location: Day Surgery Unit Vital Signs Most Recent Imported Vital Signs: Most Recent Vital Signs Temp Pulse Resp BP Pulse Ox 36.2 C L 78 18 134/77 94 02/09/25 14:54 02/09/25 14:54 02/09/25 14:54 02/09/25 14:54 02/09/25 14:54 Pain Score Most Recent Pain Score: Most Recent Pain Score Pain Level 2 02/09/25 14:54 Assessment Mental Status: Awake (Alert & Oriented to Patient Baseline) Airway and Respiratory Function: Patent airway with normal (patient baseline) respiratory exam Cardiovascular Function: Hemodynamically Stable Hydration Status: Adequately Hydrated Nausea & Vomiting: No Nausea or Vomiting Pain: Pt. Denies Any Pain Peripheral Nerve Block: Patient did not receive a nerve block
[2025-02-09] MEDS: Normal Saline Flush 10 ML SYR IV (15:30)
[2025-02-09] MEDS: Ondansetron 4 MG/2 ML VIAL IVP (15:30)
== END 2025-02-09 16:11 | disposition home or self-care (01) ==
LOC: SUR 09:34
PROVIDERS: PCP Internal Medicine; Visit Provider Surgery
PROC: (CPT 43239; principal; 2025-02-09 11:15)
DX: R13.10 Dysphagia, unspecified (principal); Z12.11 Encounter for screening for malignant neoplasm of colon; K57.30 Diverticulosis of large intestine without perforation or abscess without bleeding; K27.9 Peptic ulcer, site unspecified, unspecified as acute or chronic, without hemorrhage or perforation; K22.70 Barrett's esophagus without dysplasia; K51.90 Ulcerative colitis, unspecified, without complications; K63.5 Polyp of colon; K63.89 Other specified diseases of intestine; K22.89 Other specified disease of esophagus; K31.89 Other diseases of stomach and duodenum
CPT/HCPCS: 43239; 45380; 88305; 74177; 88361; J1171; J2003; J2405; J2704; J3010; J3490

== ENCOUNTER 2025-04-29 20:55 | Outpatient (REF) | payer MEDICARE, MEDICAID, SELFPAY | END 2025-04-29 20:56 | disposition home or self-care (01) | LOC: LBN 20:55 | PROVIDERS: PCP Internal Medicine; Visit Provider Nurse Practitioner | DX: C61 Malignant neoplasm of prostate (principal); R30.0 Dysuria; Z79.818 Long term (current) use of other agents affecting estrogen receptors and estrogen levels | CPT/HCPCS: 84403 ==

== ENCOUNTER 2025-05-05 12:45 | Outpatient (CLI) | payer MEDICARE, MEDICAID, SELFPAY ==
[2025-05-05 13:02] LABS: Abs Immature Grans 0.03 10^3/uL (0.0-0.06); HCT 36.5 % (40.0-50.0); HGB 12.4 g/dL (13.5-17.5); Immature Grans % 0.4 %; MCH 32.7 pg (27.0-33.0); MCHC 34.0 % (32.0-36.0); MCV 96 fL (80-95); MPV 8.9 fL (8.0-11.0); Platelet Count 319 10^3/uL (130-400); RBC 3.79 10^6/uL (4.36-5.78); RDW 12.9 % (11.8-14.1); RDW-SD 46.1 fL; WBC 6.93 10^3/uL (4.4-10.8)
[2025-05-05 13:19] LABS: ALT 39 U/L (16-63); AST 26 U/L (15-37); Albumin 4.2 g/dL (3.4-5.0); Alkaline Phosphatase 105 U/L (46-116); Anion Gap 10.7 mmol/L (3-11); BUN 19 mg/dL (7-18); Bilirubin, Total 0.8 mg/dL (0.2-1.0); CO2 29.3 mmol/L (21.0-32.0); Calcium 8.9 mg/dL (8.5-10.1); Chloride 101 mmol/L (98-107); Estimated GFR 76.37 (mL/min/1.73m2); Glucose 149 mg/dL (74-106); Potassium 4.1 mmol/L (3.5-5.1); Sodium 141 mmol/L (136-145); Total Protein 7.6 g/dL (6.4-8.2)
== END 2025-05-05 12:46 | disposition home or self-care (01) ==
LOC: LBO 12:45
PROVIDERS: PCP Internal Medicine; Visit Provider Nurse Practitioner
DX: C61 Malignant neoplasm of prostate (principal)
CPT/HCPCS: 36415; 80053; 84153; 84403; 85025